=== PATIENT | male | born 1930 | race Caucasian/White ===

== ENCOUNTER 2016-07-14 08:14 | Inpatient (IN) | payer OTHER ==
[2016-07-14] VITALS (7 sets, daily range): BP systolic 94–112; BP diastolic 61–73; PULSE 71–83; TEMP 36.2–37; O2SAT 95–99; BMI 29.2
[~2016-07-14] VITALS: Ht 185.4 cm; Wt 102.7 kg
[~2016-07-14 08:14] MED LIST: ADVIN50/60 INH; ALBU1NEB10 INH; ALBUAER2 INH; ATOR-22 PO; ATV/1 PO; BISA10SU7 RE; CARB1SOL8 OTB; CLC100X PO; DUTA0.5C PO; FAMO20TA9 PO; FLR/1 PO; HOME1TAB PO; HYDR-5688 PO; INSDGI SC; INSU70IN2 SC; LIDO1OIN4 TOP; LORA-741 PO; LVQ750 PO; MAGN10TA PO; MAGNSUS5 PO; MCRK20 PO; METO10TA6 PO; MORP20SO SL; OMEP20CA9 PO; POLY1SOL6 OP; POLY335025 PO; SODIENE PR; SPRIN/30 INH; THROLOZ MT; TNR25 PO; VNTHFA/IN INH; WHITOIN2 TOP; [UNRECOGNIZED DRUG - CODE] TOP; [UNRECOGNIZED DRUG - OTHER] PO
[2016-07-14] MEDS ORDERED: ALBUT/IPRATROP 3MG/0.5MG NEB 3 ML VIAL INH STA (08:39)
[2016-07-14] MEDS ORDERED: SODIUM CHLORIDE 0.9% 1000ML 1,000 ML IV STA (08:39)
[2016-07-14 08:57] LABS: BASO % 0.2 %; BASO ABS # 0.01 K/uL (0-0.2); COMPLETE YES; EOS % 0.2 %; HEMATOCRIT 45.1 % (42-52); IG% 0.6 %; LYMPH % 8.9 %; LYMPH ABS # 0.56 K/uL (1.2-3.4); MEAN CELL VOLUME 94.7 fL (80-100); MEAN CORPUSCULAR HGB CONC 30.6 g/dl (32-36); MEAN PLATELET VOLUME 10.6 fL (7.4-10.4); MONO % 5.6 %; NEUT % 84.5 %; PLATELET COUNT 225 K/uL (130-400); RED BLOOD COUNT 4.76 M/uL (4.7-6.1); WHITE BLOOD COUNT 6.26 K/uL (4.8-10.8)
[2016-07-14 09:07] LABS: INR 1.1 (0.9-1.1); PARTIAL THROMBOPLASTIN RATIO 0.9
--- NOTE | 2016-07-14 09:07 | DIAGNOSTIC IMAGING REPORT ---
CHEST ONE VIEW PORTABLE CLINICAL HISTORY: Fever and sepsis COMPARISON STUDY: 09/16/2015 FINDINGS: The chest has an emphysematous configuration. The heart is normal in size. Since the prior study, the patient developed bilateral interstitial opacities. These could be inflammatory, or secondary to pulmonary vascular congestion. Clinical and radiographic follow-up is recommended.[No pleural effusions are visualized. IMPRESSION: 1. Interval development of bilateral interstitial opacities, inflammatory versus interstitial edema. Clinical and radiographic follow-up is recommended. Electronically signed by: Sridhar Chowdary M.D. 07/14/2016 9:05 AM
[2016-07-14 09:11] LABS: BUN/CREATININE RATIO 14.9 (10-20); CALCIUM 8.9 mg/dl (8.5-10.1); CREATININE 1.7 mg/dl (0.60-1.40); POTASSIUM 3.1 mmol/L (3.5-5.1)
[2016-07-14 09:17] LABS: CKMB/CK RATIO 0.8 (0-3.0)
[2016-07-14 09:23] LABS: URINE APPEARANCE CLEAR (CLEAR); URINE BILIRUBIN NEG (NEG); URINE COLOR YELLOW; URINE NITRITE NEG (NEG); URINE SPECIFIC GRAVITY 1.008 (1.000-1.030); UROBILINOGEN NEG (NEG); ZZURINE CULT IF INDIC CATH NO
[2016-07-14 09:27] LABS: MANUAL MICROSCOPIC REQUIRED? NO; REVIEW REQ? NO
--- NOTE | 2016-07-14 09:31 | DIAGNOSTIC IMAGING REPORT ---
CT SCAN OF THE ABDOMEN AND PELVIS WITHOUT CONTRAST CLINICAL HISTORY: Fever and sepsis. Possible intra-abdominal source. COMPARISON STUDY: 04/28/2014 TECHNIQUE: CT scan of the abdomen and pelvis was performed from the lung bases to the proximal femurs. Images are reviewed in the axial, sagittal, and coronal planes. IV contrast was not administered for this examination. CT DOSE: 983.99 mGy.cm FINDINGS: Lower chest: There is pulmonary emphysema. There is lower lobe bronchial wall thickening. There are right basilar airspace opacities, atelectatic versus inflammatory. Liver: The unenhanced liver is normal in size, contour, and attenuation. There is no intrahepatic biliary ductal dilatation. Gallbladder: Cholelithiasis Spleen: Normal in size and attenuation. Pancreas: Unremarkable. Adrenal glands: Unremarkable. Kidneys: There is no hydronephrosis. No calculi are visualized. There is an 11 mm left renal hypodensity likely representing a cyst. Bowel: There is gastric distention. The appendix appears normal. There is no evidence of acute diverticulitis. There is fecal retention. Peritoneum: No free air is visualized. There are bilateral fat-containing inguinal hernias. There is no ascites. Vasculature: The abdominal aorta is normal in course and caliber. Adenopathy: None. Pelvic viscera: There is indwelling Ball catheter. Skeletal structures: No destructive osseous lesions are seen. IMPRESSION: 1. Gastric distention 2. Cholelithiasis 3. Diverticulosis. No evidence of acute peridiverticular inflammatory change 4. Normal appendix 5. Fecal retention 6. Emphysema, lower lobe bronchial wall thickening, right basal airspace opacities, atelectatic versus inflammatory 7. Fat-containing inguinal hernias Electronically signed by: Sridhar Chowdary M.D. 07/14/2016 9:29 AM
[2016-07-14] MEDS ORDERED: OSELTAMIVIR PHOSPHATE 75 MG CAP PO ONE (09:45)
[2016-07-14] MEDS ORDERED: CEPH500C2 PO (09:50)
[2016-07-14] MEDS ORDERED: TYLOTC500 PO (09:50)
[2016-07-14] MEDS ORDERED: NRN600 PO (09:50)
[2016-07-14] MEDS ORDERED: TORS20TA2 PO (09:50)
[2016-07-14] MEDS ORDERED: TORS100T13 PO (09:50)
[2016-07-14] MEDS ORDERED: LEVO1TAB33 PO (09:50)
[2016-07-14] MEDS ORDERED: OXYC15TA89 PO (09:50)
[2016-07-14] MEDS ORDERED: CALC625T4 PO (09:54)
[2016-07-14] MEDS ORDERED: MULTTAB63 PO (09:54)
[2016-07-14] MEDS ORDERED: PRED20TA PO (09:56)
[2016-07-14 10:13] LABS: ARTERIAL BLD GAS O2 SATURATION 90.9 % (90-95); ARTERIAL BLOOD GAS BASE EXCESS 8.9 mEq/L (-9-1.8); ARTERIAL BLOOD GAS HCO3 31 mmol/L (19-24); ARTERIAL BLOOD GAS PO2 56 mm/Hg (80-95)
[2016-07-14 10:16] LABS: ALLEN TEST POS (POS); ARTERIAL BLOOD GAS pH 7.56 (7.35-7.45); O2 ADMINISTRATION room air
--- NOTE | 2016-07-14 10:48 | EMERGENCY ROOM VISIT NOTE ---
History Report prepared by Hood: Domingo Noel Under the Supervision of: Dr. Nasir Oneal D.O. First contact with patient: 08:20 Chief Complaint: SHORTNESS OF BREATH Stated Complaint: SOB History of Present Illness The patient is a 86 year old male who presents to the Emergency Room with complaints of worsening shortness of breath that started 2 days ago. Per the nursing staff, the patient is from the [facility]. Last week, the patient visited family in [place], and was admitted to the hospital there for a week for nausea and vomiting. Per the patient's , the patient seemed to improve at the hospital. It sounded like the patient had a UTI and he had a Ball Catheter put in. The patient was discharged yesterday and returned to the [facility]. In addition to the worsening shortness of breath, the patient has been recently complaining of a cough with yellow sputum, abdominal pain, and wheezing. The patient had a CT scan of his abdomen at the ER in [place], and it was found that he had urine retention. The patient was put on Levofloxacin, which he has been compliant with. Source of History: patient, spouse/significant other, nursing staff Onset: 2 days ago Position: other (global - shortness of breath) Timing: worsening Associated Symptoms: + abdominal pain, + cough (with yellow sputum), + nausea (was hospitalized for this last week), + urinary symptoms (urinary retention; was hospitalized for this last week), + vomiting (was hospitalized for this last week) Note: Associated symptoms: Wheezing. Review of Systems See HPI for pertinent positives & negatives. A total of 10 systems reviewed and were otherwise negative. Past Medical & Surgical Medical Problems: (1) Anemia (2) chronic kidney disease (3) COPD (chronic obstructive pulmonary disease) (4) Coronary artery disease (5) CVA (cerebrovascular accident) (6) Essential hypertension (7) HTN (hypertension) (8) Hypercholesterolemia (9) Hyperparathyroidism (10) Hypotension (11) CO (myocardial infarction) (12) Peripheral vascular disease (13) TIA (transient ischemic attack) Surgical Problems: (1) H/O heart artery stent Family History FH: heart disease Hypertension Social History Smoking Status: Unknown if Ever Smoked Alcohol Use: occasionally Drug Use: none Marital Status: Housing Status: lives with significant other Occupation Status: retired Current/Historical Medications Scheduled Aspirin (Aspirin Chewable), 81 MG PO DAILY Atenolol (Atenolol), 24 MG PO DAILY Atorvastatin (Lipitor), 20 MG PO HS Bisacodyl (Bisacodyl), 5 MG PO BID Bisacodyl (Bisac-Evac), 10 MG RE UNKNOWN Calcium Polycarbophil (Fiber Laxative), 1 TAB PO DAILY Cephalexin Monohydrate (Keflex), 500 MG PO QID Clopidogrel (Plavix), 75 MG PO DAILY Docusate Sodium (Colace), 100 MG PO BID Dutasteride (Avodart), 0.5 MG PO DAILY Famotidine (Pepcid), 20 MG PO HS Fludrocortisone Acetate (Florinef), 0.1 MG PO DAILY Gabapentin (Gabapentin), 600 MG PO BID Hydrocortisone (Cortef), 40 MG PO BID Insulin Glargine (Lantus), 40 UNITS SC QPM Insulin Human Isophan/Regular (Novolin 70/30), 10 UNITS SC BID Levofloxacin (Levaquin), 500 MG PO DAILY Magnesium Oxide (Mag-Ox), 400 MG PO BID Multiple Vitamins W/ Minerals (Therems M), 1 TAB PO DAILY Omeprazole (Prilosec), 20 MG PO DAILY Oxycodone Hcl (Oxycontin), 15 MG PO Q12 Polyethylene Glycol 3350 (Miralax), 17 GM PO BID Polyethylene Glycol-Propylene (Systane Ultra), 1 DROPS OPB BID Potassium Chloride (Klor-Con M20), 2 TAB PO BID Prednisone (Prednisone), 20 MG PO UD Tiotropium [place] (Spiriva Handihaler), 1 CAP INH DAILY Torsemide (Demadex), 100 MG PO DAILY Torsemide (Demadex), 50 MG PO 3XWK [Magic Movement], 1 DOSE PO BID Scheduled PRN Acetaminophen (Tylenol), 1,000 MG PO AMPM PRN for PA Albuterol (Ventolin), 2 PUFF INH Q2H PRN for SOB/Wheezing Albuterol Hfa (Ventolin Hfa), 2 PUFF INH Q4 PRN for Wheezing Lorazepam (Ativan), 1 MG PO DAILY PRN for Anxiety Magnesium Hydroxide (Milk Of Magnesia), 30 ML PO UD PRN for Constipation Morphine Sulfate Oral (Roxanol Oral), 10 MG SL Q2H PRN for PAIN/SOB Sodium Phosphate/Biphosphate (Fleet Enema), 1 EA OH UD PRN for NO BM X 4 DAYS Throat Lozenges (Menthol Cough Drops), 1 MINH MT for MD ORDER Allergies Coded Allergies: No Known Allergies (Unverified , 11/08/14) Physical Exam Vital Signs Date Time Temp Pulse Resp B/P Pulse Ox O2 Delivery O2 Flow Rate FiO2 07/14/16 10:13 88 24 98/65 91 Room Air 07/14/16 09:35 85 07/14/16 09:24 92 20 102/71 100 07/14/16 08:29 37.7 87 22 123/90 93 Room Air 07/14/16 08:29 93 Room Air Physical Exam CONSTITUTIONAL/VITAL SIGNS: Reviewed / noted above. GENERAL: Non-toxic in appearance. INTEGUMENTARY: Warm, dry, and [place]. HEAD: Normocephalic. EYES: without scleral icterus or trauma. ENT/OROPHARYNX: clear and moist. LYMPHADENOPATHY/NECK: Is supple without lymphadenopathy or meningismus. RESPIRATORY: Decreased breath sounds bilaterally with scattered wheezing primarily on left on expiration. Pursed lip breathing, mild increased work of breathing. CARDIOVASCULAR: Regular rate and rhythm. GI/ABDOMEN: Distension and tenseness. No organomegaly or pulsatile mass. No rebound or guarding. Normal bowel sounds. EXTREMITIES: Warm and well perfused. BACK: No CVA tenderness. NEUROLOGICAL: Intact without focal deficits. PSYCHIATRIC: normal affect. MUSCULOSKELETAL: Normally developed with good muscle tone. Medical Decision & Procedures ER Provider Diagnostic Interpretation: X ray results and stated below per my interpretation and radiologist interpretation. Other radiology results and stated below per my review and radiologist interpretation: CHEST ONE VIEW PORTABLE CLINICAL HISTORY: Fever and sepsis COMPARISON STUDY: 09/16/2015 FINDINGS: The chest has an emphysematous configuration. The heart is normal in size. Since the prior study, the patient developed bilateral interstitial opacities. These could be inflammatory, or secondary to pulmonary vascular congestion. Clinical and radiographic follow-up is recommended.[No pleural effusions are visualized. IMPRESSION: 1. Interval development of bilateral interstitial opacities, inflammatory versus interstitial edema. Clinical and radiographic follow-up is recommended. Electronically signed by: Sridhar Chowdary M.D. 07/14/2016 9:[address] SCAN OF THE ABDOMEN AND PELVIS WITHOUT CONTRAST CLINICAL HISTORY: Fever and sepsis. Possible intra-abdominal source. COMPARISON STUDY: 04/28/2014 TECHNIQUE: CT scan of the abdomen and pelvis was performed from the lung bases to the proximal femurs. Images are reviewed in the axial, sagittal, and coronal planes. IV contrast was not administered for this examination. CT DOSE: 983.99 mGy.cm FINDINGS: Lower chest: There is pulmonary emphysema. There is lower lobe bronchial wall thickening. There are right basilar airspace opacities, atelectatic versus inflammatory. Liver: The unenhanced liver is normal in size, contour, and attenuation. There is no intrahepatic biliary ductal dilatation. Gallbladder: Cholelithiasis Spleen: Normal in size and attenuation. Pancreas: Unremarkable. Adrenal glands: Unremarkable. Kidneys: There is no hydronephrosis. No calculi are visualized. There is an 11 mm left renal hypodensity likely representing a cyst. Bowel: There is gastric distention. The appendix appears normal. There is no evidence of acute diverticulitis. There is fecal retention. Peritoneum: No free air is visualized. There are bilateral fat-containing inguinal hernias. There is no ascites. Vasculature: The abdominal aorta is normal in course and caliber. Adenopathy: None. Pelvic viscera: There is indwelling Ball catheter. Skeletal structures: No destructive osseous lesions are seen. IMPRESSION: 1. Gastric distention 2. Cholelithiasis 3. Diverticulosis. No evidence of acute peridiverticular inflammatory change 4. Normal appendix 5. Fecal retention 6. Emphysema, lower lobe bronchial wall thickening, right basal airspace opacities, atelectatic versus inflammatory 7. Fat-containing inguinal hernias Electronically signed by: Sridhar Chodwary M.D. 07/14/2016 9:29 AM Laboratory Results 07/14/16 08:40 Red Blood Count 4.76, Mean Corpuscular Volume 94.7, Mean Corpuscular Hemoglobin 29.0, Mean Corpuscular Hemoglobin Concent 30.6, Mean Platelet Volume 10.6, Neutrophils (%) (Auto) 84.5, Lymphocytes (%) (Auto) 8.9, Monocytes (%) (Auto) 5.6, Eosinophils (%) (Auto) 0.2, Basophils (%) (Auto) 0.2, Neutrophils # (Auto) 5.29, Lymphocytes # (Auto) 0.56, Monocytes # (Auto) 0.35, Eosinophils # (Auto) 0.01, Basophils # (Auto) 0.01 07/14/16 08:40 Test 07/14/16 08:40 07/14/16 08:50 07/14/16 08:53 07/14/16 09:36 White Blood Count 6.26 K/uL (4.8-10.8) Red Blood Count 4.76 M/uL (4.7-6.1) Hemoglobin 13.8 g/dL (14.0-18.0) Hematocrit 45.1 % (42-52) Mean Corpuscular Volume 94.7 fL (80-100) Mean Corpuscular Hemoglobin 29.0 pg (25-34) Mean Corpuscular Hemoglobin Concent 30.6 g/dl (32-36) Platelet Count 225 K/uL (130-400) Mean Platelet Volume 10.6 fL (7.4-10.4) Neutrophils (%) (Auto) 84.5 % Lymphocytes (%) (Auto) 8.9 % Monocytes (%) (Auto) 5.6 % Eosinophils (%) (Auto) 0.2 % Basophils (%) (Auto) 0.2 % Neutrophils # (Auto) 5.29 K/uL (1.4-6.5) Lymphocytes # (Auto) 0.56 K/uL (1.2-3.4) Monocytes # (Auto) 0.35 K/uL (0.11-0.59) Eosinophils # (Auto) 0.01 K/uL (0-0.5) Basophils # (Auto) 0.01 K/uL (0-0.2) RDW Standard Deviation 58.8 fL (36.4-46.3) RDW Coefficient of Variation 17.1 % (11.5-14.5) Immature Granulocyte % (Auto) 0.6 % Immature Granulocyte # (Auto) 0.04 K/uL (0.00-0.02) Prothrombin Time 12.0 SECONDS (9.0-12.0) Prothromb Time International Ratio 1.1 (0.9-1.1) Activated Partial Thromboplast Time 23.9 SECONDS (21.0-31.0) Partial Thromboplastin Ratio 0.9 Anion Gap 10.0 mmol/L (3-11) Est Creatinine Clear Calc Drug Dose 38.9 ml/min Estimated GFR () 41.4 Estimated GFR (Non- 35.7 BUN/Creatinine Ratio 14.9 (10-20) Calcium Level 8.9 mg/dl (8.5-10.1) Total Bilirubin 0.4 mg/dl (0.2-1) Direct Bilirubin 0.1 mg/dl (0-0.2) Aspartate Amino Transf (AST/SGOT) 36 U/L (15-37) Alanine Aminotransferase (ALT/SGPT) 21 U/L (12-78) Alkaline Phosphatase 89 U/L (45-117) Total Creatine Kinase 235 U/L (39-308) Creatine Kinase MB 1.8 ng/ml (0.5-3.6) Creatine Kinase MB Ratio 0.8 (0-3.0) Troponin I 0.032 ng/ml (0-0.045) Total Protein 7.8 gm/dl (6.4-8.2) Albumin 3.3 gm/dl (3.4-5.0) Lipase 138 U/L (73-393) Influenza Type A Antigen POS for Influ A (NEG) Influenza Type B Antigen Neg for Influ B (NEG) Urine Color YELLOW Urine Appearance CLEAR (CLEAR) Urine pH 6.0 (4.5-7.5) Urine Specific [place] 1.008 (1.000-1.030) Urine Protein TRACE (NEG) Urine Glucose (UA) NEG (NEG) Urine Ketones NEG (NEG) Urine Occult Blood 2+ (NEG) Urine Nitrite NEG (NEG) Urine Bilirubin NEG (NEG) Urine Urobilinogen NEG (NEG) Urine Leukocyte Esterase TRACE (NEG) Urine WBC (Auto) 1-5 /hpf (0-5) Urine RBC (Auto) 5-10 /hpf (0-4) Urine Hyaline Casts (Auto) 1-5 /lpf (0-5) Urine Epithelial Cells (Auto) 10-20 /lpf (0-5) Urine Bacteria (Auto) NEG (NEG) Arterial Blood pH 7.56 (7.35-7.45) Arterial Blood Partial Pressure CO2 36 mmHg (35-46) Arterial Blood Partial Pressure O2 56 mm/Hg (80-95) Arterial Blood HCO3 31 mmol/L (19-24) Arterial Blood Oxygen Saturation 90.9 % (90-95) Arterial Blood Base Excess 8.9 mEq/L (-9-1.8) Arterial Blood Gas Delivery room air Ramos Test POS (POS) Laboratory results as stated above per my review. Medications Administered Medications (Trade) Dose Ordered Sig/Cole Route Start Time Stop Time Status Last Admin Dose Admin Sodium Chloride (Nss 1000ml) 1,000 ml @ 200 mls/hr Q5H STAT IV 07/14/16 08:39 07/14/16 13:38 07/14/16 09:19 200 MLS/HR Albuterol/ Ipratropium (Duoneb) 3 ml NOW STAT INH 07/14/16 08:39 07/14/16 08:43 DC 07/14/16 09:19 3 ML Oseltamivir Phosphate (Tamiflu Cap) 75 mg ONE ONCE PO 07/14/16 09:45 07/14/16 09:46 DC 07/14/16 09:41 75 MG ECG Indication: SOB/dyspnea Rate (beats per minute): 94 Rhythm: normal sinus Findings: PAC, other (no acute injury, RBBB) Change: no significant change (from February 23 2015) ED Course 0832: Previous medical records were reviewed. The patient was evaluated in room B7. A complete history and physical examination was performed. 0839: Ordered Duoneb 3 ml INH, NSS 1000 ml @ 200 mls/hr IV. 0945: Ordered Tamiflu Cap 75 mg PO. 0955: I reevaluated the patient and he is resting comfortably. The patient verbally expressed agreement and understanding of the treatment plan. The patient will be evaluated for further treatment. 1014: I discussed the patient with Dr. Wade - [facility] hospitalist - he will evaluate the patient for further treatment. Medical Decision the differential was considered includes acute myocardial infarction, acute coronary syndrome, myocarditis, pericarditis, pericardial effusions /tamponad, esophageal perforation, pulmonary embolism, pneumonia, pneumothorax, cardiomyopathy, congestive heart, anemia , COPD/asthma exacerbation. This is a 86-year-old male who presents to the ED with a chief complaint of increasing shortness of breath and cough productive of a yellow sputum. The patient states that his symptoms started 2 days ago. He was discharged from an outside hospital yesterday after having a Ball catheter placed and being placed on Levaquin for UTI. The patient's exam reveals increased respiratory rate as well as some increased work of breathing with pursed lip breathing. The patient has expiratory wheezing primarily on the left on exam. He was given a DuoNeb treatment for this. The patient's CBC was normal. Complete metabolic panel revealed a BUN of 25 and a creatinine of 1.7. Was otherwise unremarkable. Positive influenza test. Chest x-ray reveals bilateral interstitial opacities. This could be suggestive of a viral pneumonia. The patient has been on Levaquin. The patient had gastric distention and a CT scan of the abdomen revealed gastric distention and fecal retention. Upon reassessment, the patient continues having dyspnea and increased work of breathing. He continues to have wheezing on exam and diminished breath sounds. Because of his poor clinical status and lack of improvement of her ED stay, he will be seen for observation by the hospitalist. Consults Time Called: 101 Consulting Physician: Dr. Shrei CHAHAL hospitalist Returned Call: [phone] I discussed the patient with Dr. Sheri CHAHAL hospitalist - he will evaluate the patient for further treatment. Impression Primary Impression: Influenza A Additional Impression: Reactive airway disease Scribe Attestation The scribe's documentation has been prepared under my direction and personally reviewed by me in its entirety. I confirm that the note above accurately reflects all work, treatment, procedures, and medical decision making performed by me. Departure Information Dispostion Being Evaluated By Hospitalist [facility] (PCP) Patient Instructions A Signature Page, My [facility]
[2016-07-14] MEDS ORDERED: VANCOMYCIN INJ 1,000 MG in SODIUM CHLORIDE 0.9% 250ML 250 ML IV STA (11:17)
[2016-07-14] MEDS ORDERED: GLUCOSE 40% GEL 15 GM TUBE PO PRN (11:30)
[2016-07-14] MEDS ORDERED: NITROGLYCERIN 0.4 MG SL PER TAB CHARGE SL PRN (11:30)
[2016-07-14] MEDS ORDERED: LORAZEPAM 1 MG TAB PO PRN (11:30)
[2016-07-14] MEDS ORDERED: DEXTROSE 50% 50 ML SYR IV PRN (11:30)
[2016-07-14] MEDS ORDERED: GLUCOSE 10 TABS/TUBE PO PRN (11:30)
[2016-07-14] MEDS ORDERED: GLUCAGON FOR INJ 1 MG VIAL SQ PRN (11:30)
[2016-07-14] MEDS ORDERED: MAGNESIUM HYDROXIDE SUSP 30 ML UDC PO PRN (11:30)
--- NOTE | 2016-07-14 11:57 | HISTORY & PHYSICAL EXAMINATION ---
DATE OF ADMISSION: 07/14/2016 Regarding his insulin, in discussion with his , he get 40 mg Lantus at bedtime but uses 70/30 twice a day which should not be on both of. He wasn't sure, instead he will get something else. Will start the Lantus, put him on coverage and if sugar still high may put him on insulin with meals accordingly. All this was discussed with the patient again. COREY
[2016-07-14] MEDS: GUAIFENESIN 600 MG TABCR PO SCH ×2 (12:00→22:04)
[2016-07-14] MEDS ORDERED: VANCOMYCIN 1GM/270ML NSS IV ONE (12:12)
[2016-07-14] MEDS: ACETAMINOPHEN 325 MG TAB PO PRN (12:21)
--- NOTE | 2016-07-14 13:04 | HISTORY & PHYSICAL EXAMINATION ---
DATE OF ADMISSION: 07/14/2016 ADMISSION LEVEL 3. CHIEF COMPLAINT: Cough, shortness of breath, weakness, fever, chills. HISTORY OF PRESENT ILLNESS: This is an 86-year-old male recently discharged from [facility]. Basically he is resident of [facility] is what they call it. Basically accompanied by the . Over the last few days since he has been discharged he has kind of been coughing, congested, short of breath and having some weakness, decreased oral intake, having some sick contact around him in the home as well too. Having fever and chills. Having some lower abdominal reproducible pain with coughing and taking in deep breath. He feels bloated, having chronic constipation and according to the he has already been dealing with gas. No extremity weaknesses. No headache. No blurry vision. No syncope. Workup in the Emergency Room showed febrile, having some positives for the flu, influenza A, also chest x-ray showed some change, likely pneumonia. PAST MEDICAL HISTORY: 1. Positive for diabetes. 2. Recent admission to the hospital for abdominal pain. 3. History of urinary tract infection and urinary retention, likely secondary to the prostate. 4. 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 5. Adrenal insufficiency. 6. Labeled as chronic systolic congestive heart failure although EF last echo is normal. 7. History of atrial fibrillation. 8. Chronic obstructive pulmonary disease, emphysema. 9. History of diverticulosis. 10. Benign prostatic hypertrophy. 11. Chronic constipation. 12. Chronic anemia. 13. History of transient ischemic attack and stroke. PAST SURGICAL HISTORY: Positive for cardiac catheterization. SOCIAL HISTORY: Lives at [facility]. No smoking, no drug, no alcohol. Ambulates with some assistance. FAMILY HISTORY: Positive for the hypertension, diabetes, coronary artery disease. MEDICATIONS ON ADMISSION: He is on Tylenol 1000 mg as needed twice a day, Ventolin HFA 2 puffs inhaled q. 2 hours, albuterol, aspirin 81 mg daily, atenolol 25 mg daily, Lipitor 20 mg at bedtime, bisacodyl 5 mg twice a day and 10 mg rectally as needed, calcium polycarbophil, fiber laxative 1 tablet daily, Keflex 500 p.o. q.i.d., Plavix 75 daily, Colace 100 mg b.i.d., avodart 0.5 daily, famotidine 20 mg at bedtime, Florinef 0.1 mg daily, gabapentin 600 mg b.i.d., hydrocortisone 40 mg p.o. b.i.d., Lantus 40 units subQ bedtime, Novolin 70/30 10 units subcutaneously b.i.d., Levaquin 500 p.o. daily, lorazepam 1 mg p.o. daily as needed, milk of magnesia as needed, magnesium oxide 400 mg b.i.d., morphine sulfate orally 10 mg sublingually every 2 hours, multivitamin as needed, omeprazole 200 mg daily, OxyContin 15 mg q. 12 hours, polyethylene glycol MiraLax 17 grams b.i.d., Systane eyedrop 1 drop both eyes b.i.d., potassium chloride 20 mg take 2 tablets b.i.d., prednisone taper doses, sodium pyrophosphate bisphosphonate Fleet enema as needed, throat lozenge as needed,, Demadex 100 mg daily and 50 mg added to Saturday and Saturday and Mondays, magic movement b.i.d. ALLERGIES: No known drug allergies. PHYSICAL EXAMINATION: GENERAL: Awake, alert, oriented, lying in bed,. HEAD, EYES, EARS, NOSE, AND THROAT: Very dry lips and tongue. Normocephalic. No nasal discharge. SKIN: Mucous membranes warm, dry. Kervin dry mucous membranes. NECK: Supple. No JVD. No bruits. No goiter. CHEST: Symmetrical expansion, no tenderness. Tender in the lower rib cage area with no skin abnormality. LUNGS: decreased air entry bilaterally. Fine wheezes. No rales or rhonchi. No crackles. HEART: S1, S2. Regular. No added sound appreciated. ABDOMEN: Globular, soft, mild generalized tenderness when just superficially touched. No skin lesion abnormality. EXTREMITIES: Mild pitting edema, good peripheral pulses, good range of motion.. Good range of motion of the joint. No erythema, swelling or tenderness of any joint or muscle. BACK: No costovertebral angle tenderness. No lower back erythema or ulceration. PELVIC: Deferred. RECTAL: Deferred. NEUROLOGICALLY: Awake, alert, oriented. DIAGNOSTIC WORKUP: White cell count 6.26, hemoglobin 13.8, hematocrit platelet count 225, sodium 147, potassium 3.9, chloride 37, BUN 25, creatinine 1.70, last time 06/25/2016 creatinine was 1.80. Liver enzymes normal. Albumin 3.3. PT 12.0, INR normal, PTT 23.9. ABG showed pH 7.56, pCO2 36, pO2 96, saturation ia more than 95. Chest x-ray showed interval development of bilateral interstitial opacities, inflammatory versus edema and likely edema because of the fever and respiratory symptoms, CT abdomen and pelvis showed gaseous distention, cholelithiasis, diverticulosis, and no evidence of peridiverticular inflammatory change. Normal appendix. lower bronchial wall thickening and right basilar airspace opacity, atelectasis versus inflammatory. EKG done and reviewed showed normal sinus rhythm with PACs, right around 94, QRS 118, QTC 500, left axis deviation, right bundle branch block, left anterior fascicular block. When compared to our EKG no new change appreciated except the heart rate increased by 19 beats. IMPRESSION: This is a 86-year-old male presents with weakness, likely combination of acute influenza type A and pneumonia was recently from the hospital. Most probably hospital acquired pneumonia. Generalized weakness, malaise, coughing due to influenza and pneumonia. 1. Influenza A. 2. Pneumonia likely hospital acquired. 3. Dehydration. 4. Respiratory alkalosis secondary to tachypnea. 5. Doubted congestive heart failure. 6. Diabetes. 7. Chronic kidney disease. 8. History of renal insufficiency. 9. Obesity. 10. Chronic abdominal pain and likely gaseous distention. 11. Chest pain upper abdominal from the cough and musculoskeletal. 12. Chronic kidney disease stage III. PLAN: The patient is going to be admitted as inpatient because of the multiple complexity of the complaints and symptoms. Although at risks for progression to sepsis or multiorgan failure and high morbidity and mortality the patient is going to be given IV vancomycin and Zosyn for now just to cover hospital acquired pneumonia for now. Blood culture already ordered, get sputum culture as well. Will start him on Tamiflu and orders IV fluid cautiously monitored, breathing treatment, , hydrocortisone to IV because of the stress doses. Regarding chronic kidney disease check renal function, electrolyte again. Regarding low blood pressure we are going to hold his blood pressure medication and increase atenolol to 12, it is 10 mg now, to prevent rebound tachycardia. We are going to monitor closely, Lantus and sliding scale. Regarding diabetes continue the insulin and put him on glucose count. Further workup pending the progression and findings during hospitalization. CODE STATUS IS GOING TO BE DNR/DNI. Estimated duration of hospitalization around 4-5 days. Prognosis is poor. Time spent is 45 minutes. All discussed with the patient and in detail. COREY
[2016-07-14] MEDS ORDERED: PIPERACILL/TAZOBAC IV 3.375 GM in DEXTROSE 5% 100ML 100 ML IV SCH (14:00)
[2016-07-14] MEDS ORDERED: PIPERACILL/TAZOBAC IV 3.375 GM in DEXTROSE 5% 100ML 100 ML IV ONE (14:15)
[2016-07-14] MEDS ORDERED: VANCOMYCIN INJ 1,500 MG in SODIUM CHLORIDE 0.9% 500ML 500 ML IV ONE (14:30)
--- NOTE | 2016-07-14 14:36 | Pharmacy Progress Note ---
Pharmacy Antibiotic Consult Date of Service: Jul 14, 2016. Pharmacy Dosing Scope Pharmacy is consulted to initiate Vancomycin IV dosing therapy, order appropriate labs and adjust drug dose/frequency. Subjective The patient is a 86 year old male admitted on Jul 14, 2016 at 11:37. Objective Height (Feet): 6 Height (Inches): 1.00 Weight (Kilograms): 100.400 Lab Results (24hrs): Laboratory Tests Test 07/14/16 08:40 BUN/Creatinine Ratio 14.9 Blood Urea Nitrogen 25 mg/dl Creatinine 1.70 mg/dl White Blood Count 6.26 K/uL Red Blood Count 4.76 M/uL Hemoglobin 13.8 g/dL Hematocrit 45.1 % Mean Corpuscular Volume 94.7 fL Mean Corpuscular Hemoglobin 29.0 pg Mean Corpuscular Hemoglobin Concent 30.6 g/dl Platelet Count 225 K/uL Mean Platelet Volume 10.6 fL Neutrophils (%) (Auto) 84.5 % Lymphocytes (%) (Auto) 8.9 % Monocytes (%) (Auto) 5.6 % Eosinophils (%) (Auto) 0.2 % Basophils (%) (Auto) 0.2 % Neutrophils # (Auto) 5.29 K/uL Lymphocytes # (Auto) 0.56 K/uL Monocytes # (Auto) 0.35 K/uL Eosinophils # (Auto) 0.01 K/uL Basophils # (Auto) 0.01 K/uL Micro Results: Item Value Date Time Blood Culture Received 07/14/16 0900 Blood Pending Blood Culture Received 07/14/16 0840 Blood Pending Recent Pertinent Medications Item Value Date Time Piperacillin Sod/ 115 ml @ 230 mls/hr 07/14/16 1415 Tazobactam Sod NOW ONCE/IV 3.375 gm/Dextrose Piperacillin Sod/ 115 ml @ 28.75 mls/hr 07/14/16 2000 Tazobactam Sod Q8H/IV 3.375 gm/Dextrose Assessment & Plan ASSESSMENT: * 86 yo M admitted with flu + pneumonia (thought to be healthcare associated) initiated on Vancomycin and Zosyn IV. Blood cultures obtained and pending. MRSA nasal swab added to aid in deescalation for lung source. PLAN: * Patient received one dose of Vancomycin 1000 mg IV in the ED (10 mg/kg) * To finish loading patient (25 mg/kg), I added 1500 mg IV to start infusing after 1000 mg bag is finished * Continue 1500 mg IV every 24 hours based on baseline/current renal function * Assess trough level earlier than usual, prior to the 3rd overall dose * If trough level between 10-15 mcg/mL and renal function stays the same- this dose will likely be within goal range of lung source (15-20 mcg/mL) after reaching steady state * It is important to check early level to ensure that we are on the right track Pharmacy will continue to follow and will adjust dose/frequency as necessary. Thank you
[2016-07-14] MEDS ORDERED: VANCOMYCIN CONSULT ACTIVE PRN (15:15)
[2016-07-14] MEDS ORDERED: PIPERACILL/TAZOBAC CONSULT ACTIVE PRN (15:15)
[2016-07-14] MEDS: AVODART: ORDER AWAITING ACTION SCH (16:00)
[2016-07-14] MEDS: ALBUT/IPRATROP 3MG/0.5MG NEB 3 ML VIAL INH SCH ×2 (16:02→19:16)
[2016-07-14] MEDS: INSULIN ASPART 100 UNITS/ML 3 ML PEN SC SCH ×2 (16:15→21:00)
[2016-07-14] MEDS: SODIUM CHLORIDE 0.45% 1000ML 1,000 ML IV SCH (16:16)
[2016-07-14] MEDS: HYDROCORTISONE IV 50 MG in SYRINGE 0 ML IV SCH (18:00)
[2016-07-14] MEDS ORDERED: NURSING VERBAL MED ORDER ONE (19:15)
[2016-07-14] MEDS ORDERED: POTASSIUM CHLORIDE 20 MEQ TABCR PO STA (19:22)
[2016-07-14 19:45] LABS: MAGNESIUM 3.1 mg/dl (1.8-2.4)
[2016-07-14] MEDS ORDERED: LIDODERM (LIDOCAINE) PATCH 5% TD ONE (20:15)
[2016-07-14] MEDS ORDERED: VANCOMYCIN INJ 1,000 MG in SODIUM CHLORIDE 0.9% 250ML 250 ML IV SCH (21:00)
[2016-07-14] MEDS: OXYCODONE HCL 15 MG TABCR (OXYCONTIN) PO SCH (22:00)
[2016-07-14] MEDS: BISACODYL 5 MG TABEC PO SCH (22:00)
[2016-07-14] MEDS: PIPERACILL/TAZOBAC IV 3.375 GM in DEXTROSE 5% 100ML 100 ML IV SCH (22:00)
[2016-07-14] MEDS: GABAPENTIN 600 MG TAB PO SCH (22:01)
[2016-07-14] MEDS: POTASSIUM CHLORIDE 20 MEQ TABCR PO SCH (22:01)
[2016-07-14] MEDS: MAGNESIUM OXIDE 400 MG TAB PO SCH (22:02)
[2016-07-14] MEDS: DOCUSATE SODIUM 100 MG CAP PO SCH (22:02)
[2016-07-14] MEDS: POLYETHYLENE (MIRALAX) 17 GM PACK PO SCH (22:03)
[2016-07-14] MEDS: ATORVASTATIN 20 MG TAB PO SCH (22:04)
[2016-07-14] MEDS: ARTIFICIAL TEARS OP SOLN OPB SCH ×2 (22:04)
[2016-07-14] MEDS: FAMOTIDINE 20 MG TAB PO SCH (22:05)
[2016-07-14] MEDS: OSELTAMIVIR PHOSPHATE SUSP 30 MG/5 ML UDP PO SCH (22:17)
[2016-07-14] MEDS: INSULIN GLARGINE SOLOSTAR 100 UNITS/ML 3 ML PEN SC SCH (22:19)
[2016-07-14] MEDS: HEPARIN SOD 5000 UNIT/0.5 ML CARP SQ SCH (22:20)
[2016-07-15] VITALS (10 sets, daily range): BP systolic 93–124; BP diastolic 59–75; PULSE 59–83; TEMP 36.3–36.6; O2SAT 92–97
[2016-07-15] MEDS: HYDROCORTISONE IV 50 MG in SYRINGE 0 ML IV SCH ×4 (00:06→16:29)
[2016-07-15] MEDS: SODIUM CHLORIDE 0.45% 1000ML 1,000 ML IV SCH (04:32)
[2016-07-15] MEDS: PIPERACILL/TAZOBAC IV 3.375 GM in DEXTROSE 5% 100ML 100 ML IV SCH ×3 (04:32→20:25)
[2016-07-15] MEDS: HEPARIN SOD 5000 UNIT/0.5 ML CARP SQ SCH ×3 (05:47→22:00)
[2016-07-15] MEDS: INSULIN ASPART 100 UNITS/ML 3 ML PEN SC SCH ×4 (07:00→20:35)
[2016-07-15 07:12] LABS: BASO % 0.7 %; BASO ABS # 0.02 K/uL (0-0.2); COMPLETE YES; HEMATOCRIT 37.3 % (42-52); IG% 0.7 %; LYMPH % 15.5 %; LYMPH ABS # 0.47 K/uL (1.2-3.4); MEAN CELL VOLUME 93.5 fL (80-100); MEAN CORPUSCULAR HEMOGLOBIN 28.1 pg (25-34); MEAN PLATELET VOLUME 10.7 fL (7.4-10.4); MONO % 7.3 %; NEUT % 75.8 %; PLATELET COUNT 187 K/uL (130-400); RED BLOOD COUNT 3.99 M/uL (4.7-6.1); WHITE BLOOD COUNT 3.03 K/uL (4.8-10.8)
[2016-07-15] MEDS: ALBUT/IPRATROP 3MG/0.5MG NEB 3 ML VIAL INH SCH ×4 (07:17→19:51)
[2016-07-15 07:43] LABS: BUN/CREATININE RATIO 15.9 (10-20); CALCIUM 8.3 mg/dl (8.5-10.1); CREATININE 1.6 mg/dl (0.60-1.40); POTASSIUM 3.9 mmol/L (3.5-5.1)
[2016-07-15] MEDS: AVODART: ORDER AWAITING ACTION SCH ×3 (08:00→16:00)
[2016-07-15] MEDS: LIDODERM (LIDOCAINE) PATCH 5% TD SCH (08:39)
[2016-07-15] MEDS: GABAPENTIN 600 MG TAB PO SCH ×2 (08:40→20:41)
[2016-07-15] MEDS: DOCUSATE SODIUM 100 MG CAP PO SCH ×2 (08:40→20:41)
[2016-07-15] MEDS: CEROVITE ADV FORMULA TAB PO SCH (08:40)
[2016-07-15] MEDS: POLYETHYLENE (MIRALAX) 17 GM PACK PO SCH ×2 (08:41→20:41)
[2016-07-15] MEDS: FLUDROCORTISONE ACETATE 0.1 MG TAB PO SCH (08:41)
[2016-07-15] MEDS: PANTOprazole SOD 40 MG TAB PO SCH (08:41)
[2016-07-15] MEDS: GUAIFENESIN 600 MG TABCR PO SCH ×2 (08:43→20:41)
[2016-07-15] MEDS: MAGNESIUM OXIDE 400 MG TAB PO SCH ×2 (08:43→20:41)
[2016-07-15] MEDS: POTASSIUM CHLORIDE 20 MEQ TABCR PO SCH ×2 (08:44→20:41)
[2016-07-15] MEDS: CLOPIDOGREL BISULFATE 75 MG TAB PO SCH (08:44)
[2016-07-15] MEDS: ASPIRIN 81 MG ECTAB PO SCH (08:44)
[2016-07-15] MEDS: CALCIUM POLYCARBOPHIL 1 TAB PO SCH (08:45)
[2016-07-15] MEDS: OXYCODONE HCL 15 MG TABCR (OXYCONTIN) PO SCH ×2 (08:57→20:41)
[2016-07-15] MEDS: BISACODYL 5 MG TABEC PO SCH ×2 (08:57→20:41)
[2016-07-15] MEDS ORDERED: ASPIRIN 81 MG CHEW PO SCH (09:00)
[2016-07-15] MEDS: ARTIFICIAL TEARS OP SOLN OPB SCH ×4 (09:59→20:40)
[2016-07-15] MEDS: OSELTAMIVIR PHOSPHATE SUSP 30 MG/5 ML UDP PO SCH ×2 (10:00→20:42)
[2016-07-15] MEDS ORDERED: VANCOMYCIN INJ 1,500 MG in SODIUM CHLORIDE 0.9% 500ML 500 ML IV SCH (14:00)
[2016-07-15] MEDS: ATORVASTATIN 20 MG TAB PO SCH (20:41)
[2016-07-15] MEDS: FAMOTIDINE 20 MG TAB PO SCH (20:41)
[2016-07-15] MEDS: INSULIN GLARGINE SOLOSTAR 100 UNITS/ML 3 ML PEN SC SCH (21:00)
--- NOTE | 2016-07-15 21:39 | Hospitalist Progress Note ---
Hospitalist Progress Note Date of Service Jul 15, 2016. Subjective Pt evaluation today including: conversation w/ patient, physical exam, chart review, lab review, review of studies, review of inpatient medication list Voiding: gomez catheter in place Pt feeling better than upon admission. Breathing much better. He was bringing up some sputum but now not. Jorge po, moving his bowels, no diarrhea. Afebrile since admission Constitutional: No fever Respiratory: + cough, + shortness of breath, + wheezing Cardiovascular: No chest pain Abdomen: No constipation, No pain All Other Systems: Reviewed and Negative Objective Vital Signs Date Time Temp Pulse Resp B/P Pulse Ox O2 Delivery O2 Flow Rate FiO2 07/15/16 19:55 83 16 94 Nasal Cannula 2.0 07/15/16 19:49 36.3 63 18 109/66 92 Nasal Cannula 2.0 07/15/16 16:00 Nasal Cannula 2.0 07/15/16 15:52 36.3 60 21 107/66 95 Nasal Cannula 2.0 07/15/16 15:41 69 18 96 Nasal Cannula 2.0 07/15/16 12:00 Nasal Cannula 2.0 07/15/16 11:49 64 18 96 Nasal Cannula 2.0 07/15/16 11:43 36.3 65 20 124/70 94 07/15/16 08:00 Nasal Cannula 2.0 07/15/16 07:45 36.6 80 20 120/75 96 Nasal Cannula 2.0 07/15/16 07:19 61 18 94 Nasal Cannula 2.0 07/15/16 04:05 36.3 59 18 93/59 97 Nasal Cannula 07/15/16 04:00 95 Nasal Cannula 2.0 07/14/16 23:59 95 Nasal Cannula 2.0 07/14/16 23:26 36.2 78 18 112/73 95 Nasal Cannula Physical Exam General Appearance: WD/WN, no apparent distress, + obese Eyes: normal inspection, sclerae normal ENT: hearing grossly normal, pharynx normal Neck: trachea midline Respiratory/Chest: no respiratory distress, no accessory muscle use, + wheezing (diffuse wheezing and not moving air well throughout) Cardiovascular: regular rate, rhythm, no edema, no gallop, no murmur Abdomen: normal bowel sounds, non tender, soft (and obese) Extremities: non-tender, normal inspection, no pedal edema, no calf tenderness 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: alert, normal mood/affect, oriented x 3 Skin: normal color, warm/dry, no rash Laboratory Results Last 24 Hours Test 07/15/16 06:25 07/15/16 06:56 07/15/16 11:47 07/15/16 15:58 White Blood Count 3.03 K/uL Red Blood Count 3.99 M/uL Hemoglobin 11.2 g/dL Hematocrit 37.3 % Mean Corpuscular Volume 93.5 fL Mean Corpuscular Hemoglobin 28.1 pg Mean Corpuscular Hemoglobin Concent 30.0 g/dl Platelet Count 187 K/uL Mean Platelet Volume 10.7 fL Neutrophils (%) (Auto) 75.8 % Lymphocytes (%) (Auto) 15.5 % Monocytes (%) (Auto) 7.3 % Eosinophils (%) (Auto) 0.0 % Basophils (%) (Auto) 0.7 % Neutrophils # (Auto) 2.30 K/uL Lymphocytes # (Auto) 0.47 K/uL Monocytes # (Auto) 0.22 K/uL Eosinophils # (Auto) 0.00 K/uL Basophils # (Auto) 0.02 K/uL RDW Standard Deviation 59.2 fL RDW Coefficient of Variation 17.1 % Immature Granulocyte % (Auto) 0.7 % Immature Granulocyte # (Auto) 0.02 K/uL Sodium Level 141 mmol/L Potassium Level 3.9 mmol/L Chloride Level 101 mmol/L Carbon Dioxide Level 34 mmol/L Anion Gap 6.0 mmol/L Blood Urea Nitrogen 25 mg/dl Creatinine 1.60 mg/dl Est Creatinine Clear Calc Drug Dose 41.7 ml/min Estimated GFR () 44.6 Estimated GFR (Non- 38.4 BUN/Creatinine Ratio 15.9 Random Glucose 114 mg/dl Calcium Level 8.3 mg/dl Bedside Glucose 109 mg/dl 167 mg/dl 167 mg/dl Test 07/15/16 20:07 Bedside Glucose 178 mg/dl Assessment and Plan This is a 86-year-old male w/ a h/o DMII, adrenal insufficiency, obesity, CAD s/ p stent placement, HTN, dyslipidemia, PAF, CHF, PVD, CKD stage III, chronic anemia, COPD/emphysema, aspiration PNA, GERD, BPH, chronic constipation, h/o CVA /TIA, presents with weakness, likely combination of acute influenza type A and pneumonia as was recently in the hospital for SOB and abd pain (in [place], not tested for flu then? CHF?) Probably hospital acquired pneumonia. Generalized weakness, malaise, coughing due to influenza and pneumonia. Influenza A/Pneumonia likely hospital acquired/Dehydration/Severe COPD. -given IV vancomycin and Zosyn for HCAP but sputum cx growing rare GNR and MRSA swab nasal PCR negative so Vanco stopped especially in light of poor renal function -continue Tamiflu -supportive care -nebs -follow SPutum and BCxs -IV HC for stress dosed steroids, BP low normal -was on prednisone taper from previous hospitalization--> will continue here given significant wheezing on exam Diabetes mellitus II-stable -accuchecks, SSI -Lantus 40 units daily and convert back to home insulin upon discharge Adrenal insufficiency-on stress dosed HC IV here and then convert back to po tomrorow likely -continue 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 In NSR here. Presumably not on AC for fall risk and h/o GI bleeding -continue atenolol at lower dose, ASA, Plavix, torsemide, statin Constipation, chronic pain-opn chronic pain meds, oxycodone, gabapentin, bowel regimen Proph-heparin SQ, PPI CODE STATUS IS GOING TO BE DNR/DNI. Estimated duration of hospitalization around 4-5 days.
[2016-07-16] VITALS (11 sets, daily range): BP systolic 108–135; BP diastolic 67–81; PULSE 56–87; TEMP 36.3–36.6; O2SAT 88–97
[2016-07-16] MEDS: HYDROCORTISONE IV 50 MG in SYRINGE 0 ML IV SCH ×3 (00:02→12:05)
[2016-07-16] MEDS: ALBUT/IPRATROP 3MG/0.5MG NEB 3 ML VIAL INH SCH ×5 (01:42→20:41)
[2016-07-16] MEDS: PIPERACILL/TAZOBAC IV 3.375 GM in DEXTROSE 5% 100ML 100 ML IV SCH ×3 (04:04→21:13)
[2016-07-16] MEDS: ONDANSETRON INJ 2 MG/ML 2 ML VIAL IV PRN (06:06)
[2016-07-16] MEDS: HEPARIN SOD 5000 UNIT/0.5 ML CARP SQ SCH ×3 (06:13→21:34)
[2016-07-16] MEDS: INSULIN ASPART 100 UNITS/ML 3 ML PEN SC SCH ×4 (07:00→21:33)
[2016-07-16 07:16] LABS: BASO % 0.5 %; BASO ABS # 0.02 K/uL (0-0.2); COMPLETE YES; HEMATOCRIT 37.2 % (42-52); IG% 0.7 %; LYMPH % 10.9 %; LYMPH ABS # 0.46 K/uL (1.2-3.4); MEAN CORPUSCULAR HEMOGLOBIN 28.3 pg (25-34); MEAN CORPUSCULAR HGB CONC 30.4 g/dl (32-36); MEAN PLATELET VOLUME 10.8 fL (7.4-10.4); MONO % 3.1 %; NEUT % 84.8 %; PLATELET COUNT 187 K/uL (130-400); WHITE BLOOD COUNT 4.21 K/uL (4.8-10.8)
[2016-07-16 07:50] LABS: BUN/CREATININE RATIO 18.1 (10-20); CALCIUM 8.4 mg/dl (8.5-10.1); CREATININE 1.4 mg/dl (0.60-1.40); MAGNESIUM 3.2 mg/dl (1.8-2.4); POTASSIUM 4.2 mmol/L (3.5-5.1)
[2016-07-16] MEDS: AVODART: ORDER AWAITING ACTION SCH ×4 (08:00→21:36)
[2016-07-16] MEDS: POLYETHYLENE (MIRALAX) 17 GM PACK PO SCH ×2 (08:29→21:14)
[2016-07-16] MEDS: ARTIFICIAL TEARS OP SOLN OPB SCH ×4 (08:29→21:13)
[2016-07-16] MEDS: DOCUSATE SODIUM 100 MG CAP PO SCH ×2 (08:30→21:14)
[2016-07-16] MEDS: TORSEMIDE 20 MG TAB PO SCH (08:31)
[2016-07-16] MEDS: ASPIRIN 81 MG ECTAB PO SCH (08:32)
[2016-07-16] MEDS: CALCIUM POLYCARBOPHIL 1 TAB PO SCH (08:32)
[2016-07-16] MEDS: PANTOprazole SOD 40 MG TAB PO SCH (08:32)
[2016-07-16] MEDS: GABAPENTIN 600 MG TAB PO SCH ×2 (08:33→21:17)
[2016-07-16] MEDS: CLOPIDOGREL BISULFATE 75 MG TAB PO SCH ×2 (08:34→11:40)
[2016-07-16] MEDS: GUAIFENESIN 600 MG TABCR PO SCH ×2 (08:34→21:14)
[2016-07-16] MEDS: MAGNESIUM OXIDE 400 MG TAB PO SCH ×2 (08:34→21:15)
[2016-07-16] MEDS: POTASSIUM CHLORIDE 20 MEQ TABCR PO SCH ×2 (08:34→21:18)
[2016-07-16] MEDS: FLUDROCORTISONE ACETATE 0.1 MG TAB PO SCH (08:35)
[2016-07-16] MEDS: CEROVITE ADV FORMULA TAB PO SCH (08:36)
[2016-07-16] MEDS: LIDODERM (LIDOCAINE) PATCH 5% TD SCH (08:36)
[2016-07-16] MEDS: OXYCODONE HCL 15 MG TABCR (OXYCONTIN) PO SCH ×2 (08:57→21:25)
[2016-07-16] MEDS: BISACODYL 5 MG TABEC PO SCH ×2 (08:57→21:25)
[2016-07-16] MEDS: OSELTAMIVIR PHOSPHATE SUSP 30 MG/5 ML UDP PO SCH ×2 (11:40→21:25)
[2016-07-16] MEDS ORDERED: VANCOMYCIN TROUGH SCH (13:30)
[2016-07-16] MEDS ORDERED: SOAP SUDS ENEMA PR ONE (15:59)
[2016-07-16] MEDS ORDERED: FINASTERIDE 5 MG TAB PO ONE (16:00)
--- NOTE | 2016-07-16 16:13 | Hospitalist Progress Note ---
Hospitalist Progress Note Date of Service Jul 16, 2016. Subjective Pt evaluation today including: conversation w/ patient, conversation w/ family , physical exam, chart review, lab review, review of studies, review of inpatient medication list Voiding: gomez catheter in place Review of now available records from [place] hospitalization and in d/w and pt today reveal that he has a long standing h/o urinary retention. He was retaining 1000 mL of urine on presentation to the [facility] and had a Gomez placed. Then upon voiding trial, reports he failed it and was sent home with Gomez catheter in place. Pt feels very constipated and causing his abd pain to worsen which then in turn is causing his breathing to worsen somewhat. He and cannot recall why he is not on Flomax but review of Urol consult from 2013 mentioned orthostatic hypotension as the possible reason. BCxs / bottles positive for GPC, possible contaminant Constitutional: No fever Eyes: No problem reported ENT: No problem reported Respiratory: + dyspnea on exertion, + shortness of breath, No cough, No sputum Cardiovascular: No chest pain Abdomen: + constipation, + pain Musculoskeletal: No problem reported Male : + problem reported (urinary retention) Neurologic: No problem reported All Other Systems: Reviewed and Negative Objective Vital Signs Date Time Temp Pulse Resp B/P Pulse Ox O2 Delivery O2 Flow Rate FiO2 07/16/16 15:37 86 18 95 Nasal Cannula 2.0 07/16/16 11:34 36.5 65 22 134/80 96 07/16/16 11:09 83 18 95 Nasal Cannula 2.0 07/16/16 08:29 36.3 60 20 128/80 94 Nasal Cannula 2.0 07/16/16 07:37 56 20 94 Nasal Cannula 2.0 07/16/16 04:00 Nasal Cannula 2.0 07/16/16 03:39 36.6 63 22 119/71 94 Nasal Cannula 1.0 07/16/16 01:43 66 18 97 Nasal Cannula 2.0 07/16/16 00:02 Nasal Cannula 2.0 07/16/16 00:02 36.4 63 20 135/81 94 07/15/16 20:00 Nasal Cannula 2.0 07/15/16 19:55 83 16 94 Nasal Cannula 2.0 07/15/16 19:49 36.3 63 18 109/66 92 Nasal Cannula 2.0 07/15/16 16:00 Nasal Cannula 2.0 Physical Exam General Appearance: + mild distress, + obese Eyes: normal inspection, sclerae normal Neck: trachea midline Respiratory/Chest: + respiratory distress (mild with tachypnea), + decreased breath sounds (throughout but air movement improved from yesterday, some exp wheezing but improved) Cardiovascular: regular rate, rhythm, no edema, no gallop, no murmur Abdomen: normal bowel sounds, non tender, soft (but distended, obese) Extremities: non-tender, normal inspection, no pedal edema, no calf tenderness 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: alert, normal mood/affect, oriented x 3 Skin: normal color, warm/dry, no rash Laboratory Results Last 24 Hours Test 07/15/16 15:58 07/15/16 20:07 07/16/16 06:46 07/16/16 07:02 Bedside Glucose 167 mg/dl 178 mg/dl 206 mg/dl White Blood Count 4.21 K/uL Red Blood Count 4.00 M/uL Hemoglobin 11.3 g/dL Hematocrit 37.2 % Mean Corpuscular Volume 93.0 fL Mean Corpuscular Hemoglobin 28.3 pg Mean Corpuscular Hemoglobin Concent 30.4 g/dl Platelet Count 187 K/uL Mean Platelet Volume 10.8 fL Neutrophils (%) (Auto) 84.8 % Lymphocytes (%) (Auto) 10.9 % Monocytes (%) (Auto) 3.1 % Eosinophils (%) (Auto) 0.0 % Basophils (%) (Auto) 0.5 % Neutrophils # (Auto) 3.57 K/uL Lymphocytes # (Auto) 0.46 K/uL Monocytes # (Auto) 0.13 K/uL Eosinophils # (Auto) 0.00 K/uL Basophils # (Auto) 0.02 K/uL RDW Standard Deviation 57.6 fL RDW Coefficient of Variation 16.9 % Immature Granulocyte % (Auto) 0.7 % Immature Granulocyte # (Auto) 0.03 K/uL Sodium Level 141 mmol/L Potassium Level 4.2 mmol/L Chloride Level 105 mmol/L Carbon Dioxide Level 29 mmol/L Anion Gap 7.0 mmol/L Blood Urea Nitrogen 25 mg/dl Creatinine 1.40 mg/dl Est Creatinine Clear Calc Drug Dose 47.9 ml/min Estimated GFR () 52.4 Estimated GFR (Non- 45.2 BUN/Creatinine Ratio 18.1 Random Glucose 197 mg/dl Calcium Level 8.4 mg/dl Magnesium Level 3.2 mg/dl Test 07/16/16 11:15 Bedside Glucose 275 mg/dl Assessment and Plan This is a 86-year-old male w/ a h/o DMII, adrenal insufficiency, obesity, CAD s/ p stent placement, HTN, dyslipidemia, PAF, CHF, PVD, CKD stage III, chronic anemia, COPD/emphysema, aspiration PNA, GERD, BPH with urinary retention, chronic constipation, h/o CVA/TIA, presents with weakness, likely combination of acute influenza type A and pneumonia as was recently in the hospital for SOB and abd pain (in [place], not tested for flu then? CHF?) Probably hospital acquired pneumonia. Generalized weakness, malaise, coughing due to influenza and pneumonia. Influenza A/Pneumonia likely hospital acquired/Dehydration/Severe COPD. -given IV vancomycin and Zosyn for HCAP but sputum cx growing rare GNR/Normal ale and MRSA swab nasal PCR negative so Vanco stopped especially in light of poor renal function BCx / bottles +GPC, could be contaminant -continue Tamiflu -supportive care -repeat BCx x 1 set now -nebs -follow repeat BCxs -IV HC for stress dosed steroids--> BPs fine, return to po dosing HC -continue prednisone burst and taper -repeat CXR in AM Diabetes mellitus II-glucose rising due to prednisone -accuchecks, SSI and add carb coverage -Lantus 40 units daily and convert back to home insulin upon discharge Adrenal insufficiency-on stress dosed HC IV here and then convert back to po today -continue Florinef 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 In NSR here. Presumably not on AC for fall risk and h/o GI bleeding -continue atenolol at lower dose, ASA, Plavix, torsemide, statin Constipation, chronic pain-on chronic pain meds, oxycodone, gabapentin, bowel regimen, requesting enema today Proph-heparin SQ, PPI CODE STATUS IS GOING TO BE DNR/DNI. Estimated duration of hospitalization around 4-5 days.
[2016-07-16] MEDS: HYDROCORTISONE 10 MG TAB PO SCH (21:15)
[2016-07-16] MEDS: FAMOTIDINE 20 MG TAB PO SCH (21:16)
[2016-07-16] MEDS: TAMSULOSIN HCL 0.4 MG CAP PO SCH (21:16)
[2016-07-16] MEDS: ATORVASTATIN 20 MG TAB PO SCH (21:18)
[2016-07-16] MEDS: INSULIN GLARGINE SOLOSTAR 100 UNITS/ML 3 ML PEN SC SCH (21:33)
[2016-07-17] VITALS (14 sets, daily range): BP systolic 115–145; BP diastolic 68–89; PULSE 65–88; TEMP 36.3–36.9; O2SAT 91–96; Ht 185.4 cm; Wt 102.7 kg
[2016-07-17] MEDS: ONDANSETRON INJ 2 MG/ML 2 ML VIAL IV PRN (03:38)
[2016-07-17] MEDS: PIPERACILL/TAZOBAC IV 3.375 GM in DEXTROSE 5% 100ML 100 ML IV SCH ×3 (03:38→22:54)
[2016-07-17] MEDS: ALBUT/IPRATROP 3MG/0.5MG NEB 3 ML VIAL INH SCH ×5 (04:06→19:47)
[2016-07-17] MEDS: HEPARIN SOD 5000 UNIT/0.5 ML CARP SQ SCH ×3 (06:08→22:41)
[2016-07-17 06:40] LABS: BASO % 0.2 %; BASO ABS # 0.01 K/uL (0-0.2); COMPLETE YES; HEMATOCRIT 37.4 % (42-52); IG% 1.2 %; LYMPH % 9.2 %; LYMPH ABS # 0.45 K/uL (1.2-3.4); MEAN CELL VOLUME 93.5 fL (80-100); MEAN PLATELET VOLUME 10.7 fL (7.4-10.4); MONO % 5.9 %; NEUT % 83.5 %; PLATELET COUNT 212 K/uL (130-400); WHITE BLOOD COUNT 4.89 K/uL (4.8-10.8)
[2016-07-17 07:08] LABS: CALCIUM 8.3 mg/dl (8.5-10.1); CREATININE 1.6 mg/dl (0.60-1.40); POTASSIUM 3.9 mmol/L (3.5-5.1)
--- NOTE | 2016-07-17 07:48 | DIAGNOSTIC IMAGING REPORT ---
CHEST ONE VIEW PORTABLE CLINICAL HISTORY: Pneumonia COMPARISON STUDY: 07/14/2016 FINDINGS: The heart is borderline enlarged. There are improving bilateral interstitial opacities. There are no significant pleural effusions. IMPRESSION: Emphysema, and slight interval improvement in the bilateral interstitial opacities Electronically signed by: Sridhar Chowdary M.D. 07/17/2016 7:47 AM
[2016-07-17] MEDS: AVODART: ORDER AWAITING ACTION SCH ×2 (08:00→16:00)
[2016-07-17] MEDS: INSULIN ASPART 100 UNITS/ML 3 ML PEN SC SCH ×4 (08:24→21:00)
[2016-07-17] MEDS: ARTIFICIAL TEARS OP SOLN OPB SCH ×4 (08:26→22:39)
[2016-07-17] MEDS: MAGNESIUM OXIDE 400 MG TAB PO SCH ×2 (08:26→22:10)
[2016-07-17] MEDS: PANTOprazole SOD 40 MG TAB PO SCH (08:27)
[2016-07-17] MEDS: FINASTERIDE 5 MG TAB PO SCH (08:27)
[2016-07-17] MEDS: GABAPENTIN 600 MG TAB PO SCH ×2 (08:27→22:08)
[2016-07-17] MEDS: CALCIUM POLYCARBOPHIL 1 TAB PO SCH (08:27)
[2016-07-17] MEDS: FLUDROCORTISONE ACETATE 0.1 MG TAB PO SCH (08:28)
[2016-07-17] MEDS: GUAIFENESIN 600 MG TABCR PO SCH ×2 (08:28→22:06)
[2016-07-17] MEDS: CEROVITE ADV FORMULA TAB PO SCH (08:28)
[2016-07-17] MEDS: TORSEMIDE 20 MG TAB PO SCH (08:29)
[2016-07-17] MEDS: CLOPIDOGREL BISULFATE 75 MG TAB PO SCH (08:29)
[2016-07-17] MEDS: DOCUSATE SODIUM 100 MG CAP PO SCH ×2 (08:30→22:06)
[2016-07-17] MEDS: LIDODERM (LIDOCAINE) PATCH 5% TD SCH (08:30)
[2016-07-17] MEDS: ASPIRIN 81 MG ECTAB PO SCH (08:30)
[2016-07-17] MEDS: HYDROCORTISONE 10 MG TAB PO SCH ×2 (08:31→22:07)
[2016-07-17] MEDS: BISACODYL 5 MG TABEC PO SCH ×2 (08:34→22:44)
[2016-07-17] MEDS: POLYETHYLENE (MIRALAX) 17 GM PACK PO SCH ×2 (08:34→22:11)
[2016-07-17] MEDS: OXYCODONE HCL 15 MG TABCR (OXYCONTIN) PO SCH ×2 (08:34→22:17)
[2016-07-17] MEDS: POTASSIUM CHLORIDE 20 MEQ TABCR PO SCH ×2 (08:35→22:18)
[2016-07-17] MEDS ORDERED: NURSING VERBAL MED ORDER ONE (09:15)
[2016-07-17] MEDS: OSELTAMIVIR PHOSPHATE SUSP 30 MG/5 ML UDP PO SCH ×2 (09:21→22:53)
[2016-07-17] MEDS ORDERED: FUROSEMIDE INJ 40 MG in SYRINGE 0 ML IV ONE (09:45)
--- NOTE | 2016-07-17 13:05 | Clinical Documentation Query ---
CLINICAL DOCUMENTATION QUERY 86 year old male who presents to the Emergency Room with complaints of worsening shortness of breath Query #1/2 In your clinical opinion is this patient being managed for: ( x) Acute on chronic diastolic heart failure treated with IV Lasix in setting of pneumonia and influenza. ( ) Other explanation of clinical findings (Please Explain) ( ) Unable to determine (Please Define) ( ) Need to Discuss ( ) Not Agree The medical record reflects the following clinical findings, treatment, and risk factors. Clinical Indicators: Declining sats on 4L NC. Labored breathing. Coarse crackles by auscultation. Treatment: IV Lasix, telemetry, I/O's, daily weights, Risk Factors: Age, Hx of CHF, underlying influenza and pneumonia. Query #2/2 In your clinical opinion is this patient being managed for: ( x ) Pressure ulcer of bilateral buttock, stage 2 POA ( ) Other explanation of clinical findings (Please Explain) ( ) Unable to determine (Please Define) ( ) Need to Discuss ( ) Not Agree The medical record reflects the following clinical findings, treatment, and risk factors. Clinical Indicators: WOCN notes pressure ulcers stage II to bilateral buttocks Treatment: WOCN consult Risk Factors: Age, DM Please clarify and document your clinical opinion in the progress notes and discharge summary. Terms such as "probable", "suspected", "likely", "questionable", "possible", or "still to be ruled out" are acceptable. IF IN AGREEMENT, YOU MUST DOCUMENT ABOVE DIAGNOSTIC STATEMENT IN DAILY PROGRESS NOTES AND DISCHARGE SUMMARY. This document is not part of the patient's record. Thank You, Leonardo Salazar, GUERDA [phone]
--- NOTE | 2016-07-17 14:04 | Urology Consultation ---
History General Date of Service: Jul 17, 2016. Chief Complaint: urinary retention Primary Care Physician: Wilver Franco M.D. Pt seen a urologist before?: Yes (Dr. Miller last seen in 2013) If yes, why?: BPH, hx of urinary retention History of Present Illness 86 yo admitted for Influenza A/Pneumonia likely hospital acquired/Dehydration/ Severe COPD. consulted for urinary retention. The pt has seen Dr. Miller for BPH in the past. He has been on Flomax and finasteride for several years. He reports several months of weak stream, hesitancy, incomplete bladder emptying, and nocturia 3x per night. The pt was hospitalized in [place], [place] last week for flu like symptoms and developed UR at that time. Gomez placed for 1000ml urine return. Attempted and failed TOV prior to that discharge and gomez replaced at that time. Gomez in place today draining clear, yellow urine. UA on admission showed some blood. No UC&S performed. Blood culture preliminarily positive growing gram positive cocci. He has been placed on IV Zosyn. Laboratory Last 24 Hours Test 07/16/16 16:04 07/16/16 20:05 07/17/16 06:18 07/17/16 06:34 Bedside Glucose 392 mg/dl 317 mg/dl 162 mg/dl White Blood Count 4.89 K/uL Red Blood Count 4.00 M/uL Hemoglobin 11.6 g/dL Hematocrit 37.4 % Mean Corpuscular Volume 93.5 fL Mean Corpuscular Hemoglobin 29.0 pg Mean Corpuscular Hemoglobin Concent 31.0 g/dl Platelet Count 212 K/uL Mean Platelet Volume 10.7 fL Neutrophils (%) (Auto) 83.5 % Lymphocytes (%) (Auto) 9.2 % Monocytes (%) (Auto) 5.9 % Eosinophils (%) (Auto) 0.0 % Basophils (%) (Auto) 0.2 % Neutrophils # (Auto) 4.08 K/uL Lymphocytes # (Auto) 0.45 K/uL Monocytes # (Auto) 0.29 K/uL Eosinophils # (Auto) 0.00 K/uL Basophils # (Auto) 0.01 K/uL RDW Standard Deviation 56.8 fL RDW Coefficient of Variation 16.6 % Immature Granulocyte % (Auto) 1.2 % Immature Granulocyte # (Auto) 0.06 K/uL Nucleated RBC Absolute Count (auto) 0.03 K/uL Nucleated Red Blood Cells % 0.7 % Sodium Level 143 mmol/L Potassium Level 3.9 mmol/L Chloride Level 104 mmol/L Carbon Dioxide Level 32 mmol/L Anion Gap 7.0 mmol/L Blood Urea Nitrogen 27 mg/dl Creatinine 1.60 mg/dl Est Creatinine Clear Calc Drug Dose 41.7 ml/min Estimated GFR () 44.6 Estimated GFR (Non- 38.4 BUN/Creatinine Ratio 17.0 Random Glucose 162 mg/dl Calcium Level 8.3 mg/dl Problem List Medical Problems: (1) Acute on chronic renal failure Status: Acute (2) Fever Status: Acute (3) Hypoglycemia Status: Acute (4) Influenza A Status: Acute (5) Reactive airway disease Status: Acute Past History A Fib, BPH, congestive heart failure, COPD, coronary artery disease, CVA/TIA/ stroke, diabetes, diverticulosis, high cholesterol, hypertension, urinary tract infection, other (chronic constipation, chronic anemia, CKD stage III) Past Surgical History: cardiac catheterization Family History FH: heart disease Hypertension Social History Hx Tobacco Use In Past Year?: No (QUIT ABOUT 3 YRS AGO) Smoking: quit greater than 1 year Alcohol: no current use Marital status: Housing status: lives with family, lives with significant other Occupation status: retired Immunizations History of Influenza Vaccine: Yes Influenza Vaccine Date: Jun 08, 2013 History of Tetanus Vaccine?: Unknown History of Pneumococcal: Yes History of Hepatitis B Vaccine: Unknown Allergies Coded Allergies: No Known Allergies (Unverified , 11/08/14) Medications Home Medications: Home Meds and Scripts Medications Dose Route/Sig Max Daily Dose Days Date Category Dose Instructions Prednisone 20 Mg Tab 20 Mg PO UD 07/14/16 Reported 20MG TID X 3 DAYS 20MG BID X 3 DAYS 20MG DAILY X 3 DAYS 10MG DAILY X 3 DAYS STOP Therems M (Multiple Vitamins W/ Minerals) 1 Tab Tab 1 Tab PO DAILY 07/14/16 Reported Fiber Laxative (Calcium Polycarbophil) 625 Mg Tab 1 Tab PO DAILY 07/14/16 Reported Levaquin (Levofloxacin) 500 Mg Tab 500 Mg PO DAILY 7 07/14/16 Reported Keflex (Cephalexin Monohydrate) 500 Mg Cap 500 Mg PO QID 07/14/16 Reported Oxycontin (Oxycodone Hcl) 15 Mg Tab 15 Mg PO Q12 07/14/16 Reported Mag-Ox (Magnesium Oxide) 400 Mg Tab 400 Mg PO BID 07/14/16 Reported Gabapentin 600 Mg Tab 600 Mg PO BID 07/14/16 Reported Demadex (Torsemide) 20 Mg Tab 50 Mg PO 3XWK 07/14/16 Reported MON, WED, FRI ALONG WITH 100MG TO = 150MG Systane Ultra (Polyethylene Glycol-Propylene) 1 Idania Idania 1 Drops OPB BID 07/14/16 Reported Tylenol (Acetaminophen) 500 Mg Tab 1,000 Mg PO AMPM PRN 07/14/16 Reported Demadex (Torsemide) 100 Mg Tab 100 Mg PO DAILY 07/14/16 Reported Novolin 70/30 (Insulin Human Isoph/Insulin Regular) Inj 10 Units SC BID 05/27/15 Reported Fleet Enema (Sodium Phosphate/Biphosphate) Eleanor [address] UD PRN 05/27/15 Reported IF DULCOLAX SUPPOSITORY INEFFECTIVE Menthol Cough Drops (Throat Lozenges) 5 Mg Mary Jo 1 Mary Jo MT PRN 05/27/15 Reported Ativan (Lorazepam) 1 Mg Tab 1 Mg PO DAILY PRN 05/27/15 Reported Ventolin Hfa (Albuterol) 200 Puffs/72364 Mcg Aers 2 Puff INH Q4 PRN 05/27/15 Reported Lipitor (Atorvastatin Calcium) 20 Mg Tab 20 Mg PO HS 05/27/15 Reported Klor-Con M20 (Potassium Chloride) 20 Meq Tabcr 2 Tab PO BID 05/27/15 Reported Spiriva Handihaler (Tiotropium Swiss[place]) 30 Puff/540 Mcg Aerp 1 Cap INH DAILY 05/27/15 Reported Prilosec (Omeprazole) 20 Mg Cap 20 Mg PO DAILY 05/27/15 Reported Bisac-Evac (Bisacodyl) 10 Mg Sup 10 Mg RE UNKNOWN 11/25/14 Reported NO BM IN 3 DAYS, GIVE IN AM ON DAY 4 Milk Of Magnesia (Magnesium Hydroxide) 30 Ml Susp 30 Ml PO UD PRN 11/25/14 Reported IF NO BM IN 2 DAYS, GIVE ON DAY THREE Ventolin (Albuterol) Inh 2 Puff INH Q2H PRN 11/25/14 Reported Atenolol 25 Mg Tab 24 Mg PO DAILY 11/25/14 Reported Roxanol Oral (Morphine Sulfate) 20 Mg/1 Ml Soln 10 Mg SL Q2H PRN 11/08/14 Reported [Magic Movement] 1 Dose PO BID 11/08/14 Reported Aspirin Chewable (Aspirin) 81 Mg Chew 81 Mg PO DAILY 11/08/14 Reported Bisacodyl 5 Mg Tab 5 Mg PO BID 10/09/14 Reported Lantus (Insulin Glargine) Vial 40 Units SC QPM 08/23/14 Reported Plavix (Clopidogrel Bisulfate) 75 Mg Tab 75 Mg PO DAILY 07/15/14 Reported Cortef (Hydrocortisone) 20 Mg Tab 40 Mg PO BID 04/21/14 Reported Miralax (Polyethylene Glycol 3350) 1 Pow Pow 17 Gm PO BID 11/16/13 Reported Colace (Docusate Sodium) 100 Mg Cap 100 Mg PO BID 11/16/13 Reported Florinef (Fludrocortisone Acetate) 0.1 Mg Tab 0.1 Mg PO DAILY 09/09/13 Reported Pepcid (Famotidine) 20 Mg Tab 20 Mg PO HS 09/09/13 Reported Avodart (Dutasteride) 0.5 Mg Cap 0.5 Mg PO DAILY 09/09/13 Reported Inpatient Medications: Current Inpatient Medications Medications (Trade) Dose Ordered Sig/Cole Route Start Time Stop Time Status Last Admin Dose Admin Heparin Sodium (Porcine) (Heparin Sq 5000 Unit/0.5ml) 5,000 unit Q8 SQ 07/14/16 22:00 08/13/16 21:59 07/17/16 13:27 5,000 UNIT Acetaminophen (Tylenol Tab) 650 mg Q4H PRN PO 07/14/16 11:30 08/13/16 11:29 07/14/16 12:21 650 MG Ondansetron HCl (Zofran Inj) 4 mg Q6H PRN IV 07/14/16 11:30 08/13/16 11:29 07/17/16 03:38 4 MG Nitroglycerin (Nitrostat Tab) 0.4 mg UD PRN SL 07/14/16 11:30 08/13/16 11:29 Oseltamivir Phosphate (Tamiflu Susp) 30 mg BID PO 07/14/16 21:00 07/19/16 20:59 07/17/16 09:21 30 MG Insulin Aspart (novoLOG ASPART) SLIDING SCALE If C... ACHS SC 07/14/16 16:00 07/17/16 13:26 7 UNITS Glucose (Glucose 40% Gel) 15-30 GRAMS 15 GRAMS... UD PRN PO 07/14/16 11:30 08/13/16 11:29 Glucose (Glucose Chew Tab) 4-8 Tablets 4 Tabl... UD PRN PO 07/14/16 11:30 08/13/16 11:29 Dextrose (Dextrose 50% 50ML Syringe) 25-50ML OF 50% DW IV FOR... UD PRN IV 07/14/16 11:30 08/13/16 11:29 Glucagon (Glucagon Inj) 1 mg UD PRN SQ 07/14/16 11:30 08/13/16 11:29 Guaifenesin (Mucinex Contr Rel Tab) 1,200 mg Q12 PO 07/14/16 12:00 08/13/16 11:59 07/17/16 08:28 1,200 MG Atorvastatin Calcium (Lipitor Tab) 20 mg HS PO 07/14/16 21:00 08/13/16 20:59 07/16/16 21:18 20 MG Bisacodyl (Dulcolax Tab) 5 mg BID PO 07/14/16 21:00 08/13/16 20:59 07/17/16 08:34 5 MG Calcium Polycarbophil (Fibercon Tab) 1 tab DAILY PO 07/15/16 09:00 08/14/16 08:59 07/17/16 08:27 1 TAB Clopidogrel Bisulfate (plAVix TAB) 75 mg DAILY PO 07/15/16 09:00 08/14/16 08:59 07/17/16 08:29 75 MG Docusate Sodium (coLACE CAP) 100 mg BID PO 07/14/16 21:00 08/13/16 20:59 07/17/16 08:30 100 MG Famotidine (Pepcid Tab) 20 mg HS PO 07/14/16 21:00 08/13/16 20:59 07/16/16 21:16 20 MG Fludrocortisone Acetate (Florinef Tab) 0.1 mg DAILY PO 07/15/16 09:00 08/14/16 08:59 07/17/16 08:28 0.1 MG Gabapentin (Neurontin Tab) 600 mg BID PO 07/14/16 21:00 08/13/16 20:59 07/17/16 08:27 600 MG Insulin Glargine (Lantus Solostar Pen) 40 unit QPM SC 07/14/16 21:00 08/13/16 20:59 07/16/16 21:33 40 UNIT Lorazepam (Ativan Tab) 1 mg DAILY PRN PO 07/14/16 11:30 08/13/16 11:29 Magnesium Hydroxide (Milk Of Magnesia Susp) 30 ml UD PRN PO 07/14/16 11:30 08/13/16 11:29 Magnesium Oxide (Mag-Ox Tab) 400 mg BID PO 07/14/16 21:00 08/13/16 20:59 07/17/16 08:26 400 MG Multivitamins/ Minerals (Multivitamin W/ Minerals Tab) 1 tab DAILY PO 07/15/16 09:00 08/14/16 08:59 07/17/16 08:28 1 TAB Oxycodone HCl (Oxycontin Tab) 15 mg Q12 PO 07/14/16 21:00 07/28/16 20:59 07/17/16 08:34 15 MG Polyethylene (Miralax Powder Packet) 17 gm BID PO 07/14/16 21:00 08/13/16 20:59 07/17/16 08:34 17 GM Potassium Chloride (Klor-Con Tab) 40 meq BID PO 07/14/16 21:00 08/13/16 20:59 07/17/16 08:35 40 MEQ Torsemide (Demadex Tab) 100 mg DAILY PO 07/16/16 09:00 08/15/16 08:59 07/17/16 08:29 100 MG Miscellaneous Information (Order Awaiting Action) 1 ea QS N/A 07/14/16 16:00 08/13/16 15:59 Pantoprazole Sodium (Protonix Tab) 40 mg DAILY PO 07/15/16 09:00 08/14/16 08:59 07/17/16 08:27 40 MG Artificial Tears (Artificial Tears) 1 drops BID OPB 07/14/16 21:00 08/13/16 20:59 07/17/16 08:26 1 DROPS Albuterol/ Ipratropium 3 ml 3 ml QIDR INH 07/14/16 12:00 08/13/16 11:59 07/17/16 11:45 3 ML Piperacillin Sod/ Tazobactam Sod/ Dextrose (Zosyn Iv/D5 100ml) 115 ml @ 28.75 mls/ hr Q8H IV 07/14/16 20:00 07/24/16 19:59 07/17/16 12:00 28.75 MLS/HR Piperacillin Sod/ Tazobactam Sod (Consult) 1 ea UD PRN N/A 07/14/16 15:15 08/13/16 15:14 Aspirin (Ecotrin Tab) 81 mg QAM PO 07/15/16 09:00 08/14/16 08:59 07/17/16 08:30 81 MG Atenolol (Tenormin Tab) 12.5 mg DAILY PO 07/15/16 09:00 08/14/16 08:59 07/17/16 08:30 12.5 MG Lidocaine (Lidoderm Patch 5%) 1 patch QAM TD 07/15/16 09:00 08/14/16 08:59 07/17/16 08:30 1 PATCH Miscellaneous (Remove Lidoderm Patch) 1 ea DAILY@21 N/A 07/15/16 21:00 08/14/16 20:59 07/16/16 21:13 1 EA Prednisone (PredniSONE TAB) 60 mg DAILY PO 07/16/16 09:00 08/15/16 08:59 07/17/16 08:29 60 MG Tamsulosin HCl (Flomax Cap) 0.4 mg HS PO 07/16/16 21:00 08/15/16 20:59 07/16/16 21:16 0.4 MG Finasteride (Proscar Tab) 5 mg QAM PO 07/17/16 09:00 08/16/16 08:59 07/17/16 08:27 5 MG Hydrocortisone (Cortef Tab) 40 mg BID PO 07/16/16 21:00 08/15/16 20:59 07/17/16 08:31 40 MG Review of Systems Review of Systems Constitutional: No chills, No fever Eyes: No double vision Neurological: No dizzy Endocrine: No excessive thirst Gastrointestinal: No abdominal pain, No nausea, No vomiting Cardiovascular: No chest pain Respiratory: + shortness of breath Skin: No rash Musculoskeletal: + arthritis Male : + urinary retention, No blood in urine Physical Exam Vital Signs: Vital Signs Past 12 Hours Date Time Temp Pulse Resp B/P Pulse Ox O2 Delivery O2 Flow Rate FiO2 07/17/16 12:00 92 Nasal Cannula 4.0 07/17/16 11:45 76 12 95 Nasal Cannula 2.0 07/17/16 11:32 36.9 66 22 130/78 95 Nasal Cannula 4.0 07/17/16 08:43 36.8 88 18 115/76 96 07/17/16 08:00 92 Nasal Cannula 4.0 07/17/16 07:21 74 12 93 Nasal Cannula 2.0 07/17/16 04:06 68 18 91 Nasal Cannula 2.0 07/17/16 04:02 Nasal Cannula 2.0 07/17/16 03:46 36.4 73 23 118/68 93 Nasal Cannula 2.0 Physical Exam: General Appearance: no apparent distress Eyes: bilateral eyes normal inspection ENT: hearing grossly normal Neck: no JVD Respiratory/Chest: no respiratory distress, no accessory muscle use Cardiovascular: no JVD Extremities: normal inspection 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: alert, normal mood/affect, oriented x 3 Skin: normal color Assessment & Plan Assessment & Plan A/P: Urinary retention AFVSS. Suspect UR secondary to BPH. Recommend leaving gomez catheter in place another 7-10 days. Can attempt a TOV as outpatient at that time. Continue Flomax and finasteride. Will order a PSA while inpatient. Plan for outpatient f/u with Dr. Miller in 1-2 weeks with possible cysto. Thanks for the consult. No further management at this time. Recall PRN issues. Psa [phone] . Will give pt voiding trial after he recovers as outpt
--- NOTE | 2016-07-17 16:45 | Hospitalist Progress Note ---
Hospitalist Progress Note Date of Service Jul 17, 2016. Subjective Pt evaluation today including: conversation w/ patient, physical exam, chart review, lab review, review of studies, review of inpatient medication list PO Intake: christi po Voiding: gomez catheter in place Pt had nausea and worsening SOB this AM relieved with antiemetic and lasix IV x 1, has put out 1400 mL urine so far. Was OOB to chair today x 2 hours and feeling better. He is moving his bowels. Constitutional: No fever Respiratory: + shortness of breath Cardiovascular: No chest pain Abdomen: No constipation Skin: No rash All Other Systems: Reviewed and Negative Objective Vital Signs Date Time Temp Pulse Resp B/P Pulse Ox O2 Delivery O2 Flow Rate FiO2 07/17/16 16:00 92 Nasal Cannula 4.0 07/17/16 12:00 92 Nasal Cannula 4.0 07/17/16 11:45 76 12 95 Nasal Cannula 2.0 07/17/16 11:32 36.9 66 22 130/78 95 Nasal Cannula 4.0 07/17/16 08:43 36.8 88 18 115/76 96 07/17/16 08:00 92 Nasal Cannula 4.0 07/17/16 07:21 74 12 93 Nasal Cannula 2.0 07/17/16 04:06 68 18 91 Nasal Cannula 2.0 07/17/16 04:02 Nasal Cannula 2.0 07/17/16 03:46 36.4 73 23 118/68 93 Nasal Cannula 2.0 07/17/16 00:28 36.4 77 24 125/70 94 Nasal Cannula 2.0 07/17/16 00:03 Nasal Cannula 2.0 07/16/16 20:42 64 16 88 Nasal Cannula 1.0 07/16/16 20:05 Nasal Cannula 2.0 07/16/16 19:47 36.4 68 18 122/74 92 Nasal Cannula Physical Exam General Appearance: WD/WN, no apparent distress Eyes: normal inspection, sclerae normal ENT: hearing grossly normal, pharynx normal Neck: trachea midline Respiratory/Chest: no respiratory distress, no accessory muscle use, + crackles (at bases but otherwise much clearer than previous and moving air better) Cardiovascular: regular rate, rhythm, no edema, no gallop, no murmur Abdomen: normal bowel sounds, non tender, soft (and obese) Extremities: non-tender, normal inspection, no pedal edema, no calf tenderness 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: alert, normal mood/affect, oriented x 3 Skin: normal color, warm/dry, no rash Laboratory Results Last 24 Hours Test 07/16/16 20:05 07/17/16 06:18 07/17/16 06:34 07/17/16 11:19 Bedside Glucose 317 mg/dl 162 mg/dl 242 mg/dl White Blood Count 4.89 K/uL Red Blood Count 4.00 M/uL Hemoglobin 11.6 g/dL Hematocrit 37.4 % Mean Corpuscular Volume 93.5 fL Mean Corpuscular Hemoglobin 29.0 pg Mean Corpuscular Hemoglobin Concent 31.0 g/dl Platelet Count 212 K/uL Mean Platelet Volume 10.7 fL Neutrophils (%) (Auto) 83.5 % Lymphocytes (%) (Auto) 9.2 % Monocytes (%) (Auto) 5.9 % Eosinophils (%) (Auto) 0.0 % Basophils (%) (Auto) 0.2 % Neutrophils # (Auto) 4.08 K/uL Lymphocytes # (Auto) 0.45 K/uL Monocytes # (Auto) 0.29 K/uL Eosinophils # (Auto) 0.00 K/uL Basophils # (Auto) 0.01 K/uL RDW Standard Deviation 56.8 fL RDW Coefficient of Variation 16.6 % Immature Granulocyte % (Auto) 1.2 % Immature Granulocyte # (Auto) 0.06 K/uL Nucleated RBC Absolute Count (auto) 0.03 K/uL Nucleated Red Blood Cells % 0.7 % Sodium Level 143 mmol/L Potassium Level 3.9 mmol/L Chloride Level 104 mmol/L Carbon Dioxide Level 32 mmol/L Anion Gap 7.0 mmol/L Blood Urea Nitrogen 27 mg/dl Creatinine 1.60 mg/dl Est Creatinine Clear Calc Drug Dose 41.7 ml/min Estimated GFR () 44.6 Estimated GFR (Non- 38.4 BUN/Creatinine Ratio 17.0 Random Glucose 162 mg/dl Calcium Level 8.3 mg/dl Test 07/17/16 14:58 Prostate Specific Antigen 0.338 ng/ml Assessment and Plan This is a 86-year-old male w/ a h/o DMII, adrenal insufficiency, obesity, CAD s/ p stent placement, HTN, dyslipidemia, PAF, CHF, PVD, CKD stage III, chronic anemia, COPD/emphysema, aspiration PNA, GERD, BPH with urinary retention, chronic constipation, h/o CVA/TIA, presents with weakness, likely combination of acute influenza type A and pneumonia as was recently in the hospital for SOB and abd pain (in [place], not tested for flu then? CHF?) Probably hospital acquired pneumonia. Generalized weakness, malaise, coughing due to influenza and pneumonia. Influenza A/Pneumonia likely hospital acquired/Dehydration/Severe COPD: -given IV vancomycin and Zosyn for HCAP but sputum cx growing rare GNR/Normal ale and MRSA swab nasal PCR negative so Vanco stopped especially in light of poor renal function BCx 07/18 bottles +GPC, could be contaminant-ID and Sens still pending Repeat BCx from 07/16 NGTD Repeat CXR 07/17 improved PNA -continue Tamiflu x 5 day course -continue Zosyn x 7 days -supportive care -nebs -IV HC for stress dosed steroids--> BPs fine, returned to po dosing HC -continue prednisone burst and taper Diabetes mellitus II-glucose rising due to prednisone -accuchecks, SSI and add carb coverage -increase Lantus to 45 units daily Adrenal insufficiency-on stress dosed HC IV here x 2 days and then convert back to po HC 40mg bid -continue Florinef Chronic kidney disease stage III-family court justice baseline 1.5-2.0, 1.7 on admission, now 1.4 -> 1.6, stable -avoid nephrotoxins -renally dose meds -follow labs BPH w/ urinary retention- with Gomez placed at [facility] after found 1000 mL retained urine and failed voiding trial prior to discharge on 07/14 -on Avodart at home, not formulary here--> start finasteride in place -start Flomax and watch for orthostasis -Urology saw and recommends keeping Gomez in 7-10 days and f/u in the office for voiding trial HTN/CAD/chronic diastolic CHF/PAF -BPs low on admission. In NSR here. Presumably not on AC for fall risk and h/o GI bleeding -continue atenolol at lower dose, ASA, Plavix, torsemide, statin -gave lasix 40mg IV x 1 on 07/17 for fluid overload -follow I/Os, daily weights, renal function Constipation, chronic pain-improved, on chronic pain meds, -continue oxycodone, gabapentin, bowel regimen Proph-heparin SQ, PPI CODE STATUS IS GOING TO BE DNR/DNI. Estimated duration of hospitalization around 4-5 days.
[2016-07-17] MEDS: INSULIN GLARGINE SOLOSTAR 100 UNITS/ML 3 ML PEN SC SCH (21:57)
[2016-07-17] MEDS: ATORVASTATIN 20 MG TAB PO SCH (22:07)
[2016-07-17] MEDS: FAMOTIDINE 20 MG TAB PO SCH (22:09)
[2016-07-17] MEDS: TAMSULOSIN HCL 0.4 MG CAP PO SCH (22:11)
[2016-07-18] VITALS (9 sets, daily range): BP systolic 116–157; BP diastolic 74–89; PULSE 60–102; TEMP 36.3–36.5; O2SAT 95–97
[2016-07-18] MEDS: ALBUT/IPRATROP 3MG/0.5MG NEB 3 ML VIAL INH SCH ×5 (03:41→19:31)
[2016-07-18] MEDS: PIPERACILL/TAZOBAC IV 3.375 GM in DEXTROSE 5% 100ML 100 ML IV SCH ×3 (05:57→22:23)
[2016-07-18] MEDS: HEPARIN SOD 5000 UNIT/0.5 ML CARP SQ SCH ×3 (05:59→22:14)
[2016-07-18 07:51] LABS: BASO % 0.2 %; BASO ABS # 0.01 K/uL (0-0.2); COMPLETE YES; EOS % 0.2 %; HEMATOCRIT 36.8 % (42-52); LYMPH % 11.1 %; LYMPH ABS # 0.58 K/uL (1.2-3.4); MEAN CELL VOLUME 93.6 fL (80-100); MEAN CORPUSCULAR HEMOGLOBIN 28.8 pg (25-34); MEAN CORPUSCULAR HGB CONC 30.7 g/dl (32-36); MEAN PLATELET VOLUME 10.5 fL (7.4-10.4); MONO % 4.4 %; NEUT % 83.1 %; PLATELET COUNT 223 K/uL (130-400); RED BLOOD COUNT 3.93 M/uL (4.7-6.1); WHITE BLOOD COUNT 5.22 K/uL (4.8-10.8)
[2016-07-18] MEDS: AVODART: ORDER AWAITING ACTION SCH ×4 (08:00→23:39)
[2016-07-18] MEDS: FLUDROCORTISONE ACETATE 0.1 MG TAB PO SCH (08:06)
[2016-07-18] MEDS: OXYCODONE HCL 15 MG TABCR (OXYCONTIN) PO SCH ×2 (08:06→21:56)
[2016-07-18] MEDS: FINASTERIDE 5 MG TAB PO SCH (08:06)
[2016-07-18] MEDS: MAGNESIUM OXIDE 400 MG TAB PO SCH ×2 (08:07→22:01)
[2016-07-18] MEDS: CEROVITE ADV FORMULA TAB PO SCH (08:07)
[2016-07-18] MEDS: HYDROCORTISONE 10 MG TAB PO SCH ×2 (08:08→22:02)
[2016-07-18] MEDS: GABAPENTIN 600 MG TAB PO SCH ×2 (08:08→22:00)
[2016-07-18] MEDS: GUAIFENESIN 600 MG TABCR PO SCH ×2 (08:08→21:57)
[2016-07-18] MEDS: CLOPIDOGREL BISULFATE 75 MG TAB PO SCH (08:09)
[2016-07-18] MEDS: CALCIUM POLYCARBOPHIL 1 TAB PO SCH (08:09)
[2016-07-18] MEDS: DOCUSATE SODIUM 100 MG CAP PO SCH ×2 (08:09→21:00)
[2016-07-18] MEDS: TORSEMIDE 20 MG TAB PO SCH (08:10)
[2016-07-18] MEDS: PANTOprazole SOD 40 MG TAB PO SCH (08:11)
[2016-07-18] MEDS: POLYETHYLENE (MIRALAX) 17 GM PACK PO SCH ×2 (08:11→21:00)
[2016-07-18] MEDS: POTASSIUM CHLORIDE 20 MEQ TABCR PO SCH ×2 (08:11→22:03)
[2016-07-18] MEDS: ASPIRIN 81 MG ECTAB PO SCH (08:12)
[2016-07-18] MEDS: LIDODERM (LIDOCAINE) PATCH 5% TD SCH (08:13)
[2016-07-18] MEDS: ARTIFICIAL TEARS OP SOLN OPB SCH ×4 (08:14→21:56)
[2016-07-18] MEDS: BISACODYL 5 MG TABEC PO SCH ×2 (08:18→21:00)
[2016-07-18 08:39] LABS: BUN/CREATININE RATIO 19.2 (10-20); CALCIUM 8.7 mg/dl (8.5-10.1); CREATININE 1.6 mg/dl (0.60-1.40); MAGNESIUM 2.7 mg/dl (1.8-2.4); POTASSIUM 3.3 mmol/L (3.5-5.1)
[2016-07-18] MEDS: INSULIN ASPART 100 UNITS/ML 3 ML PEN SC SCH ×4 (09:03→22:14)
[2016-07-18] MEDS: OSELTAMIVIR PHOSPHATE SUSP 30 MG/5 ML UDP PO SCH ×2 (09:10→21:00)
--- NOTE | 2016-07-18 14:33 | Hospitalist Progress Note ---
Hospitalist Progress Note Date of Service Jul 18, 2016. Subjective Pt evaluation today including: conversation w/ patient, conversation w/ family , physical exam, chart review, lab review, review of studies, review of inpatient medication list Voiding: gomez catheter in place Pt feels good, breathing improved, on 4LNC here and usually on 2LNC at home, eating and drinking, moving his bowels, afebrile, no abd pain. Was OOB to chair x 2 hrs today and awaiting his PT eval Constitutional: No fever Respiratory: No shortness of breath Cardiovascular: No chest pain Abdomen: No constipation, No pain All Other Systems: Reviewed and Negative Objective Vital Signs Date Time Temp Pulse Resp B/P Pulse Ox O2 Delivery O2 Flow Rate FiO2 07/18/16 11:08 102 18 95 Nasal Cannula 4.0 07/18/16 09:41 82 97 07/18/16 08:33 36.4 60 22 118/74 96 Nasal Cannula 4.0 07/18/16 07:08 60 18 96 Nasal Cannula 4.0 07/18/16 03:41 70 18 97 Nasal Cannula 4.0 07/18/16 00:19 36.3 74 18 116/77 96 4.0 07/17/16 23:40 Nasal Cannula 4.0 07/17/16 19:47 66 16 96 Nasal Cannula 6.0 07/17/16 19:07 36.3 65 20 145/79 95 Nasal Cannula 4.0 07/17/16 18:44 36.3 76 22 96 2.0 07/17/16 16:46 36.3 76 22 141/89 96 Nasal Cannula 4.0 07/17/16 16:00 92 Nasal Cannula 4.0 Physical Exam General Appearance: WD/WN, no apparent distress Eyes: normal inspection, sclerae normal Neck: trachea midline Respiratory/Chest: no respiratory distress, no accessory muscle use, + wheezing (diffuse on exp but good air movement) Cardiovascular: regular rate, rhythm, no gallop, no murmur, + pertinent finding (1+ pitting edema legs bilat to knees) Abdomen: normal bowel sounds, non tender, soft (and protubreant) Extremities: normal range of motion, non-tender, no calf tenderness 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: alert, normal mood/affect, oriented x 3 Skin: + pertinent finding (right buttocks with stage 2 decub ulcer) Laboratory Results Last 24 Hours Test 1/3/17 14:58 07/17/16 16:37 07/17/16 20:05 07/18/16 07:20 Prostate Specific Antigen 0.338 ng/ml Bedside Glucose 195 mg/dl 142 mg/dl White Blood Count 5.22 K/uL Red Blood Count 3.93 M/uL Hemoglobin 11.3 g/dL Hematocrit 36.8 % Mean Corpuscular Volume 93.6 fL Mean Corpuscular Hemoglobin 28.8 pg Mean Corpuscular Hemoglobin Concent 30.7 g/dl Platelet Count 223 K/uL Mean Platelet Volume 10.5 fL Neutrophils (%) (Auto) 83.1 % Lymphocytes (%) (Auto) 11.1 % Monocytes (%) (Auto) 4.4 % Eosinophils (%) (Auto) 0.2 % Basophils (%) (Auto) 0.2 % Neutrophils # (Auto) 4.34 K/uL Lymphocytes # (Auto) 0.58 K/uL Monocytes # (Auto) 0.23 K/uL Eosinophils # (Auto) 0.01 K/uL Basophils # (Auto) 0.01 K/uL RDW Standard Deviation 57.7 fL RDW Coefficient of Variation 16.6 % Immature Granulocyte % (Auto) 1.0 % Immature Granulocyte # (Auto) 0.05 K/uL Nucleated RBC Absolute Count (auto) 0.04 K/uL Nucleated Red Blood Cells % 0.8 % Sodium Level 144 mmol/L Potassium Level 3.3 mmol/L Chloride Level 101 mmol/L Carbon Dioxide Level 33 mmol/L Anion Gap 10.0 mmol/L Blood Urea Nitrogen 31 mg/dl Creatinine 1.60 mg/dl Est Creatinine Clear Calc Drug Dose 41.7 ml/min Estimated GFR () 44.6 Estimated GFR (Non- 38.4 BUN/Creatinine Ratio 19.2 Random Glucose 160 mg/dl Calcium Level 8.7 mg/dl Magnesium Level 2.7 mg/dl Test 07/18/16 08:26 07/18/16 11:35 Bedside Glucose 222 mg/dl 270 mg/dl Assessment and Plan This is a 86-year-old male w/ a h/o DMII, adrenal insufficiency, obesity, CAD s/ p stent placement, HTN, dyslipidemia, PAF, CHF, PVD, CKD stage III, chronic anemia, COPD/emphysema, aspiration PNA, GERD, BPH with urinary retention, chronic constipation, h/o CVA/TIA, presents with weakness, likely combination of acute influenza type A and pneumonia as was recently in the hospital for SOB and abd pain (in [place], not tested for flu then? CHF?) Probably hospital acquired pneumonia. Generalized weakness, malaise, coughing due to influenza and pneumonia. Influenza A/Pneumonia likely hospital acquired/Dehydration/Severe COPD/Acute on chronic hypoxemic respiratory failure: Much improved -given IV vancomycin and Zosyn for HCAP but sputum cx growing rare GNR/Normal ale and MRSA swab nasal PCR negative so Vanco stopped especially in light of poor renal function BCx 07/18 bottles +GPC, spoke to Micro lab today and is looking like a micrococcus most likely contaminant-ID and Sens still pending Repeat BCx from 07/16 NGTD Repeat CXR 07/17 improved PNA -continue Tamiflu x 5 day course (last dose AM of 07/19/16) -continue Zosyn x 7 days but can transition to Levaquin upon discharge tomorrow -supportive care -supplemental O2 -nebs -IV HC for stress dosed steroids--> BPs fine, returned to po dosing HC -continue prednisone burst and taper down to 40mg daily today Diabetes mellitus II-glucose rising due to prednisone-slightly improved today -accuchecks, SSI and add carb coverage -increased Lantus to 45 units daily -should get better with lower dose of prednisone tomorrow Adrenal insufficiency-on stress dosed HC IV here x 2 days and then convert back to po HC 40mg bid -continue Florinef Chronic kidney disease stage III-pattern illustrator baseline 1.5-2.0, 1.7 on admission, now 1.4 -> 1.6, stable -avoid nephrotoxins -renally dose meds -follow labs BPH w/ urinary retention- with Gomez placed at [facility] after found 1000 mL retained urine and failed voiding trial prior to discharge on 07/14 -on Avodart at home, not formulary here--> start finasteride in place -start Flomax and watch for orthostasis -Urology saw and recommends keeping Gomez in 7-10 days and f/u in the office for voiding trial HTN/CAD/acute on chronic diastolic CHF/PAF -BPs low on admission. In NSR here. Presumably not on AC for fall risk and h/o GI bleeding -continue atenolol at lower dose, ASA, Plavix, torsemide, statin -gave lasix 40mg IV x 1 on 07/17 for fluid overload -follow I/Os, daily weights, renal function Constipation, chronic pain-improved, on chronic pain meds, -continue oxycodone, gabapentin, bowel regimen Stage II right buttocks decubitus ulcer POA- no signs of infection, observe and offload Proph-heparin SQ, PPI CODE STATUS: DNR/DNI Dispo: to [facility] hopefully tomorrow PT/OT eval today
[2016-07-18] MEDS: TAMSULOSIN HCL 0.4 MG CAP PO SCH (22:03)
[2016-07-18] MEDS: FAMOTIDINE 20 MG TAB PO SCH (22:04)
[2016-07-18] MEDS: ATORVASTATIN 20 MG TAB PO SCH (22:06)
[2016-07-18] MEDS: INSULIN GLARGINE SOLOSTAR 100 UNITS/ML 3 ML PEN SC SCH (22:15)
[2016-07-19] VITALS (8 sets, daily range): BP systolic 130–131; BP diastolic 79–81; PULSE 65–102; TEMP 36.4–37; O2SAT 97–100
[2016-07-19] MEDS: ALBUT/IPRATROP 3MG/0.5MG NEB 3 ML VIAL INH SCH ×5 (01:00→19:28)
[2016-07-19] MEDS: PIPERACILL/TAZOBAC IV 3.375 GM in DEXTROSE 5% 100ML 100 ML IV SCH ×3 (05:55→21:54)
[2016-07-19] MEDS: HEPARIN SOD 5000 UNIT/0.5 ML CARP SQ SCH ×3 (05:58→21:54)
[2016-07-19] MEDS: AVODART: ORDER AWAITING ACTION SCH ×3 (08:00→23:43)
[2016-07-19 08:01] LABS: BASO % 0.2 %; BASO ABS # 0.01 K/uL (0-0.2); COMPLETE YES; EOS % 0.5 %; HEMATOCRIT 41.8 % (42-52); LYMPH % 11.7 %; LYMPH ABS # 0.72 K/uL (1.2-3.4); MEAN CELL VOLUME 94.6 fL (80-100); MEAN CORPUSCULAR HEMOGLOBIN 28.5 pg (25-34); MEAN CORPUSCULAR HGB CONC 30.1 g/dl (32-36); MEAN PLATELET VOLUME 10.4 fL (7.4-10.4); NEUT % 78.6 %; PLATELET COUNT 236 K/uL (130-400); RED BLOOD COUNT 4.42 M/uL (4.7-6.1); WHITE BLOOD COUNT 6.15 K/uL (4.8-10.8)
[2016-07-19] MEDS: ARTIFICIAL TEARS OP SOLN OPB SCH ×4 (08:09→21:38)
[2016-07-19] MEDS: DOCUSATE SODIUM 100 MG CAP PO SCH ×2 (08:09→21:00)
[2016-07-19] MEDS: HYDROCORTISONE 10 MG TAB PO SCH ×2 (08:10→21:40)
[2016-07-19] MEDS: ASPIRIN 81 MG ECTAB PO SCH (08:10)
[2016-07-19] MEDS: TORSEMIDE 20 MG TAB PO SCH (08:10)
[2016-07-19] MEDS: FLUDROCORTISONE ACETATE 0.1 MG TAB PO SCH (08:11)
[2016-07-19] MEDS: POLYETHYLENE (MIRALAX) 17 GM PACK PO SCH ×2 (08:11→21:00)
[2016-07-19] MEDS: POTASSIUM CHLORIDE 20 MEQ TABCR PO SCH ×2 (08:11→21:41)
[2016-07-19] MEDS: CALCIUM POLYCARBOPHIL 1 TAB PO SCH (08:11)
[2016-07-19] MEDS: MAGNESIUM OXIDE 400 MG TAB PO SCH ×2 (08:11→21:42)
[2016-07-19] MEDS: GUAIFENESIN 600 MG TABCR PO SCH ×2 (08:12→21:43)
[2016-07-19] MEDS: FINASTERIDE 5 MG TAB PO SCH (08:12)
[2016-07-19] MEDS: GABAPENTIN 600 MG TAB PO SCH ×2 (08:12→21:44)
[2016-07-19] MEDS: OXYCODONE HCL 15 MG TABCR (OXYCONTIN) PO SCH ×2 (08:12→21:36)
[2016-07-19] MEDS: CLOPIDOGREL BISULFATE 75 MG TAB PO SCH (08:12)
[2016-07-19] MEDS: CEROVITE ADV FORMULA TAB PO SCH (08:12)
[2016-07-19] MEDS: OSELTAMIVIR PHOSPHATE SUSP 30 MG/5 ML UDP PO SCH (08:13)
[2016-07-19] MEDS: LIDODERM (LIDOCAINE) PATCH 5% TD SCH (08:13)
[2016-07-19] MEDS: INSULIN ASPART 100 UNITS/ML 3 ML PEN SC SCH ×4 (08:23→21:53)
[2016-07-19 08:31] LABS: BUN/CREATININE RATIO 16.3 (10-20); CALCIUM 8.8 mg/dl (8.5-10.1); CREATININE 1.7 mg/dl (0.60-1.40); MAGNESIUM 2.8 mg/dl (1.8-2.4); POTASSIUM 3.4 mmol/L (3.5-5.1)
[2016-07-19] MEDS: PANTOprazole SOD 40 MG TAB PO SCH (11:45)
[2016-07-19] MEDS: BISACODYL 5 MG TABEC PO SCH ×2 (11:45→21:00)
--- NOTE | 2016-07-19 11:46 | PULMONARY CONSULTATION ---
DATE OF CONSULTATION: 07/19/2016 TIME: 10:15 a.m. HISTORY OF PRESENT ILLNESS: The patient was seen in room 252, bed 1. He is a pleasant 86-year-old male with a longstanding history of severe COPD. The patient states he became ill shortly before [place]. He was hospitalized at [facility] from July 07 until July 14. He states that he was told that he had pneumonia and the flu at that time. He was discharged back to [facility], where he resides. He was only at home for a few hours and he decided that he was still much too short of breath to tolerate it there. He then came to [facility], where he was admitted. While he was in an [place], in addition to having breathing troubles, he had nausea and vomiting and apparently he had urinary infection. He was in urinary retention and a catheter was inserted. The catheter remains in place. He has a known history of BPH. The patient is somewhat improved, but he still feels short of breath. He states he is weak. He told me he was only out of bed yesterday for a relatively short time, although the notes indicate that he may have been up for 2 hours. He is winded with any exertion at all he tells me. His cough has improved. When he was in [place], the cough is much worse and he was expectorating discolored mucus. His cough is better, but his shortness of breath is not definitively better. The patient as noted has a long history of COPD. In 2014, he had approximately 6 hospitalizations regarding to breathing issues and this all started in the winter. In 2016, he did quite well and did not require any hospital stays for respiratory illnesses. He is not having any chest pain. He states his appetite is okay. His energy level remains poor. He denies having chills, fevers or sweats. Review of his hospital records shows that he has had no fevers since admission. The patient states that at home, he does use nebulizer treatments and he takes Spiriva and Advair 500/50 one puff b.i.d. I was able to find copies of pulmonary function testing done on 08/24/2013. That showed severe airflow obstruction with an FEV1/FVC ratio of 39%. However, he was able to improve significantly following bronchodilators, suggesting partially reversible obstructive airways disease. The patient also has a significant cardiac history. He follows up with Dr. Hernandez. He had atrial fib and he has coronary artery disease. He has had stents placed. PAST SURGICAL HISTORY: Cataract surgery and the cardiac catheterization are the only surgeries. PAST MEDICAL HISTORY: 1. Diabetes. 2. BPH. 3. Urinary tract infection. 4. Chronic kidney disease. 5. Adrenal insufficiency. 6. Atrial fibrillation. 7. Diverticular disease. 8. Anemia. 9. Peripheral vascular disease. 10. Hyperparathyroidism. 11. TIA. SOCIAL HISTORY: Tobacco 1 pack per day for about 55 years and he quit smoking in 2004. OCCUPATIONAL HISTORY: The patient is retired. 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 He did not have any exposure to dust, fumes or chemicals. ALLERGIES: No known allergies. FAMILY HISTORY: There are listed family histories of hypertension, diabetes and coronary artery disease. REVIEW OF SYSTEMS: GENERAL: The patient's energy level is low. NEUROLOGIC: No syncope or near syncope. OPHTHALMIC: No visual complaints. ENT: Denies nasal congestion or coryza. CARDIAC: No chest pain or palpitations. PULMONARY: As noted above. GASTROINTESTINAL: The patient denies having any nausea or vomiting at present. He admits that his abdomen is very distended. He denies bowel problems. GENITOURINARY: The patient has a Ball catheter in place because he was unable to void. DERMATOLOGIC: No rash. ENDOCRINE: No lymphadenopathy. PHYSICAL EXAMINATION: GENERAL: The patient is a pleasant 86-year-old male. He was sleeping when I first came in, but he awakened readily. He was cooperative, alert and oriented. VITAL SIGNS: He is afebrile. HEENT: Pupils were reactive. Implants were present. Nares were clear. Mouth exam showed an absence of teeth. NECK: Palpation of the neck reveals no lymph nodes. His neck is larger than normal. The patient had difficulty sitting forward for me. HEART: Rate is 65 per minute. Blood pressure 131/81. LUNGS: Lung rangel revealed [id number] wheeze, bilaterally on expiration. There was marked prolongation to the expiratory phase of respiration. Saturations were 100% on 2 liter nasal cannula. ABDOMEN: Distended. There was tympany on percussion. Bowel sounds were present, but were diminished. No masses were palpable. EXTREMITIES: Shows no cyanosis or clubbing. No significant edema was present. LABORATORY DATA: CBC shows a white count of 6.15, hemoglobin 12.6 and platelets are 236,000. Urinalysis shows +2 blood and 5-10 RBCs. Bacteria was negative. Blood gas done at the time of admission showed a pH of 7.56 with a pCO2 of 36 and pO2 of 56 done on room air. Electrolytes show sodium 144, potassium 3.4, chloride 99, and bicarbonate 36. BUN was 28 with a creatinine of 1.7. The prior BUN had been 31 and the prior creatinine had been 1.6. The patient had a blood culture, which was positive on only one specimen. It was growing micrococcus species, which is likely contaminant. Nasal swab was negative for MRSA. Sputum Gram stain showed normal ale. Chest x-ray on admission showed evidence of bilateral lower lung field interstitial infiltrates. I suspect this is related to pneumonia, which is probably viral related to influenza. Repeat x-ray done on July 17 showed significant improvement with the right side being almost clear and the left side being minimal. The patient states that they did tell him in [facility] that he had pneumonia at that time as well. CAT scan of the abdomen showed gastric distention, cholelithiasis, diverticulosis, and fecal retention. Inguinal hernias were noted. IMPRESSION: 1. Bilateral pneumonia -- improved -- likely secondary to #2. 2. Influenza A. 3. Chronic obstructive pulmonary disease with exacerbation secondary to #1 and #2. 4. Renal insufficiency. RECOMMENDATIONS: The patient is not feeling as good today. This could be because his prednisone was decreased. He remains moderately wheezy. I would be reluctant to send him back home today. I suspect he might return as he had done previously. The patient is still on Zosyn. He is on neb treatments with DuoNebs. I do not believe the patient should be put back on Spiriva as it may be contributing to his urinary retention. He will have a better chance of getting off the catheter if the Spiriva is stopped. It does not appear that he is receiving Spiriva here in the hospital. The patient himself was of uncertain if his nebulizer at home was just albuterol or not. In light of the fact that the Spiriva will be discontinued, I would suggest that he had DuoNebs rather than plain albuterol in his nebulizer unless he has it already, but is unaware of that. Thank you very much for asking me to assist in his care. COREY
--- NOTE | 2016-07-19 12:48 | Hospitalist Progress Note ---
Hospitalist Progress Note Date of Service Jul 19, 2016. Subjective Pt evaluation today including: conversation w/ patient, physical exam, chart review, lab review, review of studies, conversation w/ business solutions consultant (Pulm), review of inpatient medication list PO Intake: christi well Voiding: gomez catheter in place Pt feels a little more SOB today than yesterday, prednisone was decreased todya. Seen by Pulm. Moving bowels, no abd pain Constitutional: No fever Respiratory: + shortness of breath Cardiovascular: No chest pain Abdomen: No constipation, No pain All Other Systems: Reviewed and Negative Objective Vital Signs Date Time Temp Pulse Resp B/P Pulse Ox O2 Delivery O2 Flow Rate FiO2 07/19/16 11:57 65 18 98 Nasal Cannula 4.0 07/19/16 10:06 Nasal Cannula 4.0 07/19/16 07:37 36.5 65 20 131/81 100 Nasal Cannula 2.0 07/19/16 07:09 65 18 98 Nasal Cannula 4.0 07/19/16 01:00 65 18 97 Nasal Cannula 4.0 07/19/16 00:42 36.4 75 20 131/80 99 Nasal Cannula 4.0 07/19/16 00:00 Nasal Cannula 4.0 07/18/16 19:32 65 18 97 Nasal Cannula 4.0 07/18/16 16:15 65 18 97 Nasal Cannula 4.0 07/18/16 16:00 Room Air 07/18/16 15:15 36.5 102 22 157/89 97 Nasal Cannula 4.0 Physical Exam General Appearance: no apparent distress, + obese Eyes: normal inspection, sclerae normal ENT: hearing grossly normal Neck: trachea midline Respiratory/Chest: no accessory muscle use, + decreased breath sounds ( throughout with prolonged exp phase), + crackles (at right base), + wheezing ( diffuse exp wheezes), + pertinent finding (NC in place) Cardiovascular: regular rate, rhythm, no gallop, no murmur, + pertinent finding (1+ pitting edema legs bilat) Abdomen: normal bowel sounds, non tender, soft (but protuberant) Extremities: non-tender, no calf tenderness 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: alert, oriented x 3 Skin: normal color, warm/dry, no rash, + pertinent finding (multiple scabs on backs of hands) Laboratory Results Last 24 Hours Test 07/18/16 16:00 07/18/16 20:35 07/19/16 07:44 07/19/16 08:06 Bedside Glucose 234 mg/dl 259 mg/dl 193 mg/dl White Blood Count 6.15 K/uL Red Blood Count 4.42 M/uL Hemoglobin 12.6 g/dL Hematocrit 41.8 % Mean Corpuscular Volume 94.6 fL Mean Corpuscular Hemoglobin 28.5 pg Mean Corpuscular Hemoglobin Concent 30.1 g/dl Platelet Count 236 K/uL Mean Platelet Volume 10.4 fL Neutrophils (%) (Auto) 78.6 % Lymphocytes (%) (Auto) 11.7 % Monocytes (%) (Auto) 7.0 % Eosinophils (%) (Auto) 0.5 % Basophils (%) (Auto) 0.2 % Neutrophils # (Auto) 4.84 K/uL Lymphocytes # (Auto) 0.72 K/uL Monocytes # (Auto) 0.43 K/uL Eosinophils # (Auto) 0.03 K/uL Basophils # (Auto) 0.01 K/uL RDW Standard Deviation 57.6 fL RDW Coefficient of Variation 16.6 % Immature Granulocyte % (Auto) 2.0 % Immature Granulocyte # (Auto) 0.12 K/uL Nucleated RBC Absolute Count (auto) 0.08 K/uL Nucleated Red Blood Cells % 1.3 % Sodium Level 144 mmol/L Potassium Level 3.4 mmol/L Chloride Level 99 mmol/L Carbon Dioxide Level 36 mmol/L Anion Gap 9.0 mmol/L Blood Urea Nitrogen 28 mg/dl Creatinine 1.70 mg/dl Est Creatinine Clear Calc Drug Dose 39.3 ml/min Estimated GFR () 41.4 Estimated GFR (Non- 35.7 BUN/Creatinine Ratio 16.3 Random Glucose 156 mg/dl Calcium Level 8.8 mg/dl Magnesium Level 2.8 mg/dl Test 07/19/16 11:23 Bedside Glucose 167 mg/dl Assessment and Plan This is a 86-year-old male w/ a h/o DMII, adrenal insufficiency, obesity, CAD s/ p stent placement, HTN, dyslipidemia, PAF, CHF, PVD, CKD stage III, chronic anemia, COPD/emphysema, aspiration PNA, GERD, BPH with urinary retention, chronic constipation, h/o CVA/TIA, presents with weakness, likely combination of acute influenza type A and pneumonia as was recently in the hospital for SOB and abd pain (in [place], not tested for flu then? CHF?) Probably hospital acquired pneumonia. Generalized weakness, malaise, coughing due to influenza and pneumonia. Influenza A/Pneumonia likely hospital acquired/Dehydration/Severe COPD with exacerbation/Acute on chronic hypoxemic respiratory failure: improved but slightly worse today after prednisone dose decreased to 40mg -given IV vancomycin and Zosyn for HCAP but sputum cx growing rare GNR/Normal ale and MRSA swab nasal PCR negative so Vanco stopped especially in light of poor renal function BCx 07/18 bottles +micrococcus most likely contaminant Repeat BCx from 07/16 NGTD Repeat CXR 07/17 improved PNA -continue Tamiflu x 5 day course (last dose AM of 07/19/16) -continue Zosyn x 7 days but can transition to Levaquin upon discharge -supportive care -supplemental O2 -nebs -IV HC for stress dosed steroids--> BPs fine, returned to po dosing HC -continue prednisone burst and increase back up to 60mg today -Appreciate Pulm recommendations to remain off Spiriva for urinary retention Diabetes mellitus II-glucose rising due to prednisone- improved today -accuchecks, SSI and add carb coverage -increased Lantus to 45 units daily Adrenal insufficiency-on stress dosed HC IV here x 2 days and then convert back to po HC 40mg bid -continue Florinef Chronic kidney disease stage III, 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 In NSR here. Presumably not on AC for fall risk and h/o GI bleeding -continue atenolol at lower dose, ASA, Plavix, torsemide, statin -gave lasix 40mg IV x 1 on 07/17 for fluid overload -follow I/Os, daily weights, renal function Constipation, chronic pain-improved, on chronic pain meds, -continue oxycodone, gabapentin, bowel regimen Stage II right buttocks decubitus ulcer POA- no signs of infection, observe and offload Proph-heparin SQ, PPI CODE STATUS: DNR/DNI Dispo: to [facility] hopefully tomorrow PT/OT paige recommends skilled PT due to being decreased from his baseline ability to transfer from bed to chair to motorized scooter using rolling walker
[2016-07-19] MEDS: ONDANSETRON INJ 2 MG/ML 2 ML VIAL IV PRN (18:22)
[2016-07-19] MEDS: TAMSULOSIN HCL 0.4 MG CAP PO SCH (21:40)
[2016-07-19] MEDS: FAMOTIDINE 20 MG TAB PO SCH (21:47)
[2016-07-19] MEDS: ATORVASTATIN 20 MG TAB PO SCH (21:47)
[2016-07-19] MEDS: INSULIN GLARGINE SOLOSTAR 100 UNITS/ML 3 ML PEN SC SCH (21:53)
[2016-07-20] VITALS (10 sets, daily range): BP systolic 112–138; BP diastolic 67–91; PULSE 60–92; TEMP 36.3–36.9; O2SAT 92–98
[2016-07-20] MEDS: ALBUT/IPRATROP 3MG/0.5MG NEB 3 ML VIAL INH SCH ×6 (00:03→20:26)
[2016-07-20] MEDS: HEPARIN SOD 5000 UNIT/0.5 ML CARP SQ SCH ×3 (05:31→22:09)
[2016-07-20] MEDS: PIPERACILL/TAZOBAC IV 3.375 GM in DEXTROSE 5% 100ML 100 ML IV SCH ×3 (05:33→21:53)
[2016-07-20] MEDS: AVODART: ORDER AWAITING ACTION SCH ×3 (08:00→23:50)
[2016-07-20 08:30] LABS: BUN/CREATININE RATIO 14.9 (10-20); CALCIUM 8.7 mg/dl (8.5-10.1); CREATININE 1.8 mg/dl (0.60-1.40); MAGNESIUM 2.8 mg/dl (1.8-2.4); POTASSIUM 3.6 mmol/L (3.5-5.1)
[2016-07-20] MEDS: CLOPIDOGREL BISULFATE 75 MG TAB PO SCH (08:45)
[2016-07-20] MEDS: GUAIFENESIN 600 MG TABCR PO SCH ×2 (08:45→21:51)
[2016-07-20] MEDS: CEROVITE ADV FORMULA TAB PO SCH (08:45)
[2016-07-20] MEDS: CALCIUM POLYCARBOPHIL 1 TAB PO SCH (08:45)
[2016-07-20] MEDS: FINASTERIDE 5 MG TAB PO SCH (08:45)
[2016-07-20] MEDS: OXYCODONE HCL 15 MG TABCR (OXYCONTIN) PO SCH ×2 (08:45→21:52)
[2016-07-20] MEDS: POTASSIUM CHLORIDE 20 MEQ TABCR PO SCH ×2 (08:45→21:49)
[2016-07-20] MEDS: FLUDROCORTISONE ACETATE 0.1 MG TAB PO SCH (08:47)
[2016-07-20] MEDS: ASPIRIN 81 MG ECTAB PO SCH (08:47)
[2016-07-20] MEDS: GABAPENTIN 600 MG TAB PO SCH ×2 (08:47→21:53)
[2016-07-20] MEDS: LIDODERM (LIDOCAINE) PATCH 5% TD SCH (08:47)
[2016-07-20] MEDS: MAGNESIUM OXIDE 400 MG TAB PO SCH ×2 (08:47→21:50)
[2016-07-20] MEDS: TORSEMIDE 20 MG TAB PO SCH (08:48)
[2016-07-20] MEDS: HYDROCORTISONE 10 MG TAB PO SCH ×2 (08:48→21:45)
[2016-07-20] MEDS: DOCUSATE SODIUM 100 MG CAP PO SCH ×2 (08:48→21:45)
[2016-07-20] MEDS: PANTOprazole SOD 40 MG TAB PO SCH (08:49)
[2016-07-20] MEDS: POLYETHYLENE (MIRALAX) 17 GM PACK PO SCH ×2 (08:49→21:50)
[2016-07-20] MEDS: INSULIN ASPART 100 UNITS/ML 3 ML PEN SC SCH ×4 (08:53→22:08)
[2016-07-20] MEDS: ARTIFICIAL TEARS OP SOLN OPB SCH ×4 (09:00→21:44)
[2016-07-20] MEDS: BISACODYL 5 MG TABEC PO SCH ×2 (09:01→21:59)
[2016-07-20] MEDS ORDERED: LEVALBUTEROL 0.63MG/3 ML NEB INH PRN (10:45)
--- NOTE | 2016-07-20 11:00 | PULMONARY PROGRESS NOTE ---
DATE: 07/20/2016 TIME: 10:35 a.m. SUBJECTIVE: The patient complains of increasing shortness of breath. He states he feels worse than yesterday. He had been up to the chair this morning but got himself back to bed and has been very short of breath since then. He is not coughing but feels tight in the chest. He complains of a new onset of left anterior chest pain this morning. He states he has had this before. It is nonpleuritic. It is nonradiating. OBJECTIVE: GENERAL: The patient looks a little uncomfortable and he has some noisy respirations. VITAL SIGNS: He is afebrile at 36.3. Heart rate was 73 per minute. The rhythm was somewhat irregular. Blood pressure 138/91. Respiratory rate 22 breaths per minute. Oxygen saturation 95% on 4 liters. LUNGS: Audible wheeze and rhonchi can be heard bilaterally. ABDOMEN: Soft. It seems mildly distended but he said he has had bowel movements. He denied any diarrhea. EXTREMITIES: Reveal trace edema of the lower extremities. LABORATORY DATA: Electrolytes show sodium 143, potassium 3.6, chloride 100, bicarbonate 36. There has been no significant change in the bicarb since admission. The bicarb is elevated, but curiously the blood gas done on 07/14/2016 showed a normal pCO2 of 36. His BUN is 27 with a creatinine of 1.8. IMPRESSION: 1. Bilateral pneumonia. 2. Influenza A. 3. Chronic obstructive pulmonary disease with exacerbation. 4. Renal insufficiency. PLAN: The patient seems more short of breath. I am going to give him a one-time dose of Solu-Medrol. He is getting prednisone 40 mg and he is also on hydrocortisone 40 b.i.d. He remains on piperacillin/tazobactam. We will recheck an x-ray today in light of his worsening symptoms. He is getting neb treatments q.i.d., we will likely need to order p.r.n. treatments as well. It seems unlikely that we would be able to successfully discharge him today based upon his current status.
--- NOTE | 2016-07-20 11:14 | Hospitalist Progress Note ---
Hospitalist Progress Note Date of Service Jul 20, 2016. Subjective Pt evaluation today including: conversation w/ patient, physical exam, chart review, lab review, review of studies, conversation w/ sap pp consultant (Pulm), review of inpatient medication list PO Intake: christi po Voiding: gomez catheter in place Breathing was better but then after transfer from chair to bed he became significantly SOB. Had neb treatment as I came to see him and still wheezing quite a bit, tachypneic. Christi po and moving bowels, no abd pain. Constitutional: No fever Respiratory: + dyspnea on exertion, + shortness of breath, + wheezing Cardiovascular: No chest pain Abdomen: No constipation, No pain Skin: No rash All Other Systems: Reviewed and Negative Objective Vital Signs Date Time Temp Pulse Resp B/P Pulse Ox O2 Delivery O2 Flow Rate FiO2 07/20/16 10:44 67 24 98 Nasal Cannula 4.0 07/20/16 07:49 36.3 73 20 138/91 98 07/20/16 07:25 60 18 95 Nasal Cannula 4.0 07/20/16 03:35 66 18 96 Nasal Cannula 4.0 07/20/16 00:16 36.4 65 20 118/71 96 Room Air 07/20/16 00:03 68 18 96 Nasal Cannula 4.0 07/20/16 00:00 Nasal Cannula 4.0 07/19/16 19:28 70 18 97 Nasal Cannula 4.0 07/19/16 16:00 Nasal Cannula 4.0 07/19/16 15:27 70 18 97 Nasal Cannula 4.0 07/19/16 15:20 37.0 102 22 130/79 97 Nasal Cannula 4.0 07/19/16 11:57 65 18 98 Nasal Cannula 4.0 Physical Exam General Appearance: + mild distress, + obese Eyes: normal inspection, sclerae normal Respiratory/Chest: + respiratory distress (mild-mod), + accessory muscle use, + wheezing (diffusely, exp) Cardiovascular: regular rate, rhythm, no murmur, + pertinent finding (1-2+ pitting edema legs bilat) Abdomen: normal bowel sounds, non tender, soft (and protuberant) Extremities: non-tender, no calf tenderness 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: alert, normal mood/affect, oriented x 3 Laboratory Results Last 24 Hours Test 07/19/16 11:23 07/19/16 16:11 07/19/16 20:32 07/20/16 07:28 Bedside Glucose 167 mg/dl 265 mg/dl 310 mg/dl 141 mg/dl Test 07/20/16 07:30 Sodium Level 143 mmol/L Potassium Level 3.6 mmol/L Chloride Level 100 mmol/L Carbon Dioxide Level 36 mmol/L Anion Gap 7.0 mmol/L Blood Urea Nitrogen 27 mg/dl Creatinine 1.80 mg/dl Est Creatinine Clear Calc Drug Dose 37.1 ml/min Estimated GFR () 38.6 Estimated GFR (Non- 33.3 BUN/Creatinine Ratio 14.9 Random Glucose 140 mg/dl Calcium Level 8.7 mg/dl Magnesium Level 2.8 mg/dl Assessment and Plan This is a 86-year-old male w/ a h/o DMII, adrenal insufficiency, obesity, CAD s/ p stent placement, HTN, dyslipidemia, PAF, CHF, PVD, CKD stage III, chronic anemia, COPD/emphysema, aspiration PNA, GERD, BPH with urinary retention, chronic constipation, h/o CVA/TIA, presents with weakness, likely combination of acute influenza type A and pneumonia as was recently in the hospital for SOB and abd pain (in [place], not tested for flu then? CHF?) Probably hospital acquired pneumonia. Generalized weakness, malaise, coughing due to influenza and pneumonia. Influenza A/Pneumonia likely hospital acquired/Dehydration/Severe COPD with exacerbation/Acute on chronic hypoxemic respiratory failure: slightly worse today -given IV vancomycin and Zosyn for HCAP but sputum cx growing rare GNR/Normal ale and MRSA swab nasal PCR negative so Vanco stopped especially in light of poor renal function BCx 07/18 bottles +micrococcus most likely contaminant Repeat BCx from 07/16 NGTD Repeat CXR 07/17 improved PNA -completed Tamiflu x 5 day course (last dose AM of 07/19/16) -continue Zosyn x 7 days (today day 6) -supportive care -supplemental O2 -nebs -IV HC for stress dosed steroids--> BPs fine, returned to po dosing HC -continue prednisone burst and Pulm gave extra dose IV SOlu Medrol today -Appreciate Pulm recommendations to remain off Spiriva for urinary retention Diabetes mellitus II-glucose rising due to prednisone- improved but still hyperglycemia -accuchecks, SSI and added carb coverage -increased Lantus to 47 units daily Adrenal insufficiency-on stress dosed HC IV here x 2 days and then convert back to po HC 40mg bid -continue Florinef -continue HC po 40mg bid Chronic kidney disease stage III, 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 In NSR here. Presumably not on AC for fall risk and h/o GI bleeding. Seems to be a little fluid overloaded again and worsening SOB -check CXR -continue atenolol at lower dose, ASA, Plavix, torsemide, statin -gave lasix 40mg IV x 1 on 07/17 for fluid overload and another dose today 07/20 of 20mg IV -follow I/Os, daily weights, renal function Constipation, chronic pain-improved, on chronic pain meds, -continue oxycodone, gabapentin, bowel regimen Stage II right buttocks decubitus ulcer POA- no signs of infection, observe and offload Proph-heparin SQ, PPI CODE STATUS: DNR/DNI Dispo: to [place] hopefully tomorrow if breathing improved PT/OT paige recommends skilled PT due to being decreased from his baseline ability to transfer from bed to chair to motorized scooter using rolling walker however peer to peer review denied skilled coverage
[2016-07-20] MEDS ORDERED: METHYLPREDNISOLONE IV 60 MG in SYRINGE 0 ML IV SCH (11:15)
--- NOTE | 2016-07-20 11:37 | DIAGNOSTIC IMAGING REPORT ---
SINGLE VIEW CHEST CLINICAL HISTORY: Dyspnea. FINDINGS: An AP, portable, upright chest radiograph is compared to study dated 07/17/2016 and correlated with chest CT dated 08/02/2014. The examination is degraded by portable technique and patient rotation. The heart is enlarged and there is atherosclerotic calcification of the thoracic aorta. The pulmonary vascular structures noncongested. Advanced emphysema and chronic interstitial thickening is similar to previous. Scattered calcified granulomas are observed. There are bibasilar airspace opacities. No large pleural effusion or pneumothorax is seen. The skeletal structures are osteopenic. The bony thorax is grossly intact. IMPRESSION: 1. Cardiomegaly and emphysema. 2. There are nonspecific bibasilar airspace opacities. These are similar to the 07/17/2016 examination. Clinical correlation will be required. Electronically signed by: Terry Puente M.D. 07/20/2016 11:35 AM Dictated Date/Time: 07/20/2016 11:32 AM
[2016-07-20] MEDS ORDERED: FUROSEMIDE INJ 20 MG in SYRINGE 0 ML IV ONE (12:00)
[2016-07-20] MEDS: ACETAMINOPHEN 325 MG TAB PO PRN (16:35)
[2016-07-20] MEDS ORDERED: INSULIN GLARGINE SOLOSTAR 100 UNITS/ML 3 ML PEN SC SCH (21:00)
[2016-07-20] MEDS: TAMSULOSIN HCL 0.4 MG CAP PO SCH (21:46)
[2016-07-20] MEDS: ATORVASTATIN 20 MG TAB PO SCH (21:50)
[2016-07-20] MEDS: FAMOTIDINE 20 MG TAB PO SCH (21:52)
[2016-07-21] MEDS: ALBUT/IPRATROP 3MG/0.5MG NEB 3 ML VIAL INH SCH ×4 (02:44→11:36)
[2016-07-21 02:45] VITALS: PULSE 70; O2SAT 93
[2016-07-21] MEDS: HEPARIN SOD 5000 UNIT/0.5 ML CARP SQ SCH (05:36)
[2016-07-21 05:37] VITALS: PULSE 78; O2SAT 90
[2016-07-21] MEDS: PIPERACILL/TAZOBAC IV 3.375 GM in DEXTROSE 5% 100ML 100 ML IV SCH (05:41)
[2016-07-21 07:03] VITALS: BP 110/74; PULSE 76; TEMP 36.4; O2SAT 99
[2016-07-21 07:09] VITALS: PULSE 56; O2SAT 96
[2016-07-21 07:17] LABS: BASO % 0.1 %; BASO ABS # 0.01 K/uL (0-0.2); COMPLETE YES; EOS % 0.3 %; HEMATOCRIT 40.5 % (42-52); IG% 1.5 %; LYMPH % 8.3 %; LYMPH ABS # 0.56 K/uL (1.2-3.4); MEAN CORPUSCULAR HEMOGLOBIN 29.1 pg (25-34); MEAN CORPUSCULAR HGB CONC 30.4 g/dl (32-36); MEAN PLATELET VOLUME 10.8 fL (7.4-10.4); MONO % 5.7 %; NEUT % 84.1 %; PLATELET COUNT 237 K/uL (130-400); RED BLOOD COUNT 4.22 M/uL (4.7-6.1); WHITE BLOOD COUNT 6.72 K/uL (4.8-10.8)
[2016-07-21 07:42] LABS: BUN/CREATININE RATIO 16.4 (10-20); CALCIUM 9.1 mg/dl (8.5-10.1); CREATININE 1.7 mg/dl (0.60-1.40); POTASSIUM 3.6 mmol/L (3.5-5.1)
[2016-07-21] MEDS: AVODART: ORDER AWAITING ACTION SCH (07:52)
[2016-07-21] MEDS ORDERED: TNR25 PO (08:49)
[2016-07-21] MEDS ORDERED: IPRASOL4 INH (08:49)
[2016-07-21] MEDS ORDERED: FLNIN (08:49)
[2016-07-21] MEDS ORDERED: LEVO1TAB33 PO (08:49)
[2016-07-21] MEDS ORDERED: NYSS5 PO (08:49)
[2016-07-21] MEDS ORDERED: LDDP5 TD (08:49)
[2016-07-21] MEDS ORDERED: PRD20 PO (08:49)
[2016-07-21] MEDS ORDERED: GFNSR600 PO (08:49)
[2016-07-21] MEDS ORDERED: ATV/1 PO (08:49)
[2016-07-21] MEDS ORDERED: XPNINS INH (08:49)
[2016-07-21] MEDS ORDERED: FLM4 PO (08:49)
[2016-07-21] MEDS ORDERED: ADVIN25050 INH (08:49)
[2016-07-21] MEDS ORDERED: OXYC15TA89 PO (08:49)
[2016-07-21] MEDS ORDERED: NVLGIPEN SC (08:49)
[2016-07-21] MEDS ORDERED: INSDGIPEN SC (08:49)
[2016-07-21] MEDS ORDERED: FLUTICASONE PROPIONATE NA SPR 16 GM BTL SCH (09:00)
[2016-07-21] MEDS ORDERED: NYSTATIN SUSP 500,000 U/5 ML UDC PO SCH (09:00)
[2016-07-21] MEDS ORDERED: TORSEMIDE 20 MG TAB PO SCH (09:00)
--- NOTE | 2016-07-21 09:08 | Discharge Instructions ---
Discharge Instructions Admission Reason for Admission: Influenza A, Pneumonia Discharge Discharge Diagnosis / Problem: Influenza A, Pneumonia Discharge Goals Goal(s): Improve disease control, Therapeutic intervention Activity Recommendations Activity Level: Assistance Required (with transfers ) Therapies: Physical Therapy, Occupational Therapy . Additional Information Patient informed of condition: Yes Advance Directives: Yes DNR: Yes Level of Care: Skilled Communicable Disease: No (had Influenza A but no longer communicable as per standards) Prognosis: Stable Oxygen at (LPM): 2-4LNC Ball Catheter: Yes (for urinary retention, needs Urological follow up within 1 week) Instructions / Follow-Up Instructions / Follow-Up This is a 86-year-old male w/ a h/o DMII, adrenal insufficiency, obesity, CAD s/ p stent placement, HTN, dyslipidemia, PAF, CHF, PVD, CKD stage III, chronic anemia, COPD/emphysema, aspiration PNA, GERD, BPH with urinary retention, chronic constipation, h/o CVA/TIA, presents with weakness and SOB, likely combination of acute influenza type A and pneumonia as was recently in the hospital for SOB and abd pain (in [place], not tested for flu then? CHF?) Probably hospital acquired pneumonia. Generalized weakness, malaise, coughing due to influenza and pneumonia. Influenza A/Pneumonia likely hospital acquired vs Post-influenza/Dehydration/ Severe COPD with exacerbation/Acute on chronic hypoxemic respiratory failure: improved -given IV vancomycin and Zosyn for HCAP but sputum cx growing rare GNR/Normal ale and MRSA swab nasal PCR negative so Vanco stopped especially in light of poor renal function BCx 07/18 bottles +micrococcus most likely contaminant Repeat BCx from 07/16 still with NGTD Repeat CXR 07/17 improved PNA Repeat CXR 07/20 stable with residual bibasilar infiltrates -completed Tamiflu x 5 day course (last dose AM of 07/19/16) -received Zosyn x 7 days--> complete 3 more days of po Levaquin as outpatient -supportive care -supplemental O2 2-4 LNC -nebs qid and q3 prn -IV HC for stress dosed steroids given on admission--> BPs fine, returned to po dosing HC 40mg bid -received IV Solu Medrol and then transitioned to prednisone burst --> will give long slow taper and keep at 20mg daily until seen again by Pulm in the office within 1 week -Appreciate Pulm recommendations to remain off Spiriva for urinary retention -restart Advair upon discharge -start Flonase for nasal congestion causing worsening respiratory symptoms while eating Diabetes mellitus II-glucose rising due to prednisone- improved with increased Lantus dose -accuchecks, SSI and added carb coverage -increased Lantus to 47 units daily but glucose 88 AM of discharge--> decrease to lantus 45 units qPM for discharge -stop 70/30 Adrenal insufficiency-Stable: was on stress dosed HC IV here x 2 days and then convert back to po HC 40mg bid -continue Florinef -continue HC po 40mg bid Chronic kidney disease stage III, 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, 1.7 on admission, now 1.4-> 1.8-> 1.7, fairly stable -avoid nephrotoxins -renally dose meds -follow labs -replace K+ 40mg bid BPH w/ urinary retention- with Ball placed at [facility] after found 1000 mL retained urine and failed voiding trial prior to discharge on 07/14 -on Avodart at home, not formulary here--> remained on finasteride here and switch back to Avodart upon d/c -started Flomax and no orthostasis was observed -Urology saw and recommends keeping Ball in 7-10 days and f/u in the office for voiding trial--> NEEDS UROLOGY F/U visit within 1 week -avoid Spiriva HTN/CAD/acute on chronic diastolic CHF/PAF -BPs low on admission. In NSR here. Presumably not on AC for fall risk and h/o GI bleeding. Was a little fluid overloaded intermittently with worsening SOB which greatly improved with IV lasix -continue atenolol at lower dose, ASA, Plavix, torsemide, statin -gave lasix 40mg IV x 1 on 07/17 for fluid overload and another dose today 07/20 of 20mg IV with large volume diuresis -follow I/Os, daily weights, renal function -continue torsemide 100mg daily with 150mg MWF Constipation, chronic pain-improved, on chronic pain meds, -continue oxycodone, gabapentin, bowel regimen Stage II right buttocks decubitus ulcer POA- no signs of infection, observe and offload Proph-heparin SQ, PPI CODE STATUS: DNR/DNI [facility] paige recommends skilled PT due to being decreased from his baseline ability to transfer from bed to chair to motorized scooter using rolling walker Current Hospital Diet Patient's current hospital diet: Diabetes Type 2 Diet Discharge Diet Recommended Diet: Low Sodium Diet (2gm Na), Diabetes Type 2 Diet Fluid Restriction: 1800 ml (7 cups) Procedures Procedures Performed: Chest xrays CT Abd/pelvis Pending Studies Studies pending at discharge: yes List of pending studies: Final Blood culture results from 07/16/16 (no growth x 5 days) Physician Orders On Transfer Special Precautions: Fall risk Dressing Changes: None IV Therapy: None Vital Signs: Routine Weigh: Daily Additional Orders: Wound care for Stage II right buttocks ulcer Ball catheter care Follow up with PCP within 1-2 days Follow up with Pulmonology Dr. Whiteside within 1 week Follow up with Urology Dr. Miller within 1 week Laboratory Results Last 24 Hours Test 07/20/16 11:35 07/20/16 16:26 07/20/16 20:21 07/21/16 07:02 Bedside Glucose 195 mg/dl 243 mg/dl 281 mg/dl White Blood Count 6.72 K/uL Red Blood Count 4.22 M/uL Hemoglobin 12.3 g/dL Hematocrit 40.5 % Mean Corpuscular Volume 96.0 fL Mean Corpuscular Hemoglobin 29.1 pg Mean Corpuscular Hemoglobin Concent 30.4 g/dl Platelet Count 237 K/uL Mean Platelet Volume 10.8 fL Neutrophils (%) (Auto) 84.1 % Lymphocytes (%) (Auto) 8.3 % Monocytes (%) (Auto) 5.7 % Eosinophils (%) (Auto) 0.3 % Basophils (%) (Auto) 0.1 % Neutrophils # (Auto) 5.65 K/uL Lymphocytes # (Auto) 0.56 K/uL Monocytes # (Auto) 0.38 K/uL Eosinophils # (Auto) 0.02 K/uL Basophils # (Auto) 0.01 K/uL RDW Standard Deviation 58.9 fL RDW Coefficient of Variation 16.8 % Immature Granulocyte % (Auto) 1.5 % Immature Granulocyte # (Auto) 0.10 K/uL Nucleated RBC Absolute Count (auto) 0.05 K/uL Nucleated Red Blood Cells % 0.7 % Sodium Level 145 mmol/L Potassium Level 3.6 mmol/L Chloride Level 101 mmol/L Carbon Dioxide Level 38 mmol/L Anion Gap 6.0 mmol/L Blood Urea Nitrogen 28 mg/dl Creatinine 1.70 mg/dl Est Creatinine Clear Calc Drug Dose 39.3 ml/min Estimated GFR () 41.4 Estimated GFR (Non- 35.7 BUN/Creatinine Ratio 16.4 Random Glucose 96 mg/dl Calcium Level 9.1 mg/dl Magnesium Level 3.0 mg/dl Test 07/21/16 07:16 Bedside Glucose 88 mg/dl Medical Emergencies . Who to Call and When: Medical Emergencies: If at any time you feel your situation is an emergency, please call 911 immediately. . Non-Emergent Contact Non-Emergency issues call your: Primary Care Provider, Conveyor Tender Call Non-Emergent contact if: temperature is above 101, you have any medication questions If you have worsening SOB or abdominal pain . . "Provider Documentation" section prepared by Siria Hess. Core Measure Problem Core Measures: None [place] Drug Monitoring Program Search Results: patient reviewed within database
--- NOTE | 2016-07-21 09:22 | Discharge Summary ---
Discharge Summary Admission Date: Jul 14, 2016 at 11:37 Discharge Date: Jul 21, 2016 Discharge Disposition: longterm facility Principal Diagnosis: Hospital acquired PNA, Influenza A Problems/Secondary Diagnoses: DMII Adrenal insufficiency Oral candidiasis Obesity CAD s/p stent placement HTN Dyslipidemia PAFib Acute on chronic diastolic CHF PVD CKD stage III Chronic anemia Severe COPD/emphysema Acute on Chronic hypoxemic respiratory failure H/O Aspiration PNA GERD BPH with urinary retention Chronic constipation H/o CVA/TIA Hypokalemia Chronic pain Stage II right buttocks decubitus ulcer POA Cholelithiasis-asymptomatic Bilateral fat-containing inguinal hernias Immunizations: Have You Had Influenza Vaccine: Yes Influenza Vaccine Date: Jun 08, 2013 History of Tetanus Vaccine?: Unknown History of Pneumococcal: Yes History of Hepatitis B Vaccine: Unknown Procedures: CHEST ONE VIEW PORTABLE CLINICAL HISTORY: Fever and sepsis COMPARISON STUDY: 09/16/2015 FINDINGS: The chest has an emphysematous configuration. The heart is normal in size. Since the prior study, the patient developed bilateral interstitial opacities. These could be inflammatory, or secondary to pulmonary vascular congestion. Clinical and radiographic follow-up is recommended.[No pleural effusions are visualized. IMPRESSION: 1. Interval development of bilateral interstitial opacities, inflammatory versus interstitial edema. Clinical and radiographic follow-up is recommended. CT SCAN OF THE ABDOMEN AND PELVIS WITHOUT CONTRAST CLINICAL HISTORY: Fever and sepsis. Possible intra-abdominal source. COMPARISON STUDY: 04/28/2014 TECHNIQUE: CT scan of the abdomen and pelvis was performed from the lung bases to the proximal femurs. Images are reviewed in the axial, sagittal, and coronal planes. IV contrast was not administered for this examination. CT DOSE: 983.99 mGy.cm FINDINGS: Lower chest: There is pulmonary emphysema. There is lower lobe bronchial wall thickening. There are right basilar airspace opacities, atelectatic versus inflammatory. Liver: The unenhanced liver is normal in size, contour, and attenuation. There is no intrahepatic biliary ductal dilatation. Gallbladder: Cholelithiasis Spleen: Normal in size and attenuation. Pancreas: Unremarkable. Adrenal glands: Unremarkable. Kidneys: There is no hydronephrosis. No calculi are visualized. There is an 11 mm left renal hypodensity likely representing a cyst. Bowel: There is gastric distention. The appendix appears normal. There is no evidence of acute diverticulitis. There is fecal retention. Peritoneum: No free air is visualized. There are bilateral fat-containing inguinal hernias. There is no ascites. Vasculature: The abdominal aorta is normal in course and caliber. Adenopathy: None. Pelvic viscera: There is indwelling Ball catheter. Skeletal structures: No destructive osseous lesions are seen. IMPRESSION: 1. Gastric distention 2. Cholelithiasis 3. Diverticulosis. No evidence of acute peridiverticular inflammatory change 4. Normal appendix 5. Fecal retention 6. Emphysema, lower lobe bronchial wall thickening, right basal airspace opacities, atelectatic versus inflammatory 7. Fat-containing inguinal hernias CHEST ONE VIEW PORTABLE CLINICAL HISTORY: Pneumonia COMPARISON STUDY: 07/14/2016 FINDINGS: The heart is borderline enlarged. There are improving bilateral interstitial opacities. There are no significant pleural effusions. IMPRESSION: Emphysema, and slight interval improvement in the bilateral interstitial opacities SINGLE VIEW CHEST CLINICAL HISTORY: Dyspnea. FINDINGS: An AP, portable, upright chest radiograph is compared to study dated 07/17/2016 and correlated with chest CT dated 08/02/2014. The examination is degraded by portable technique and patient rotation. The heart is enlarged and there is atherosclerotic calcification of the thoracic aorta. The pulmonary vascular structures noncongested. Advanced emphysema and chronic interstitial thickening is similar to previous. Scattered calcified granulomas are observed. There are bibasilar airspace opacities. No large pleural effusion or pneumothorax is seen. The skeletal structures are osteopenic. The bony thorax is grossly intact. IMPRESSION: 1. Cardiomegaly and emphysema. 2. There are nonspecific bibasilar airspace opacities. These are similar to the 07/17/2016 examination. Clinical correlation will be required. Consultations: Pulmonology Medication Reconciliation New Medications: Fluticasone Prop/Salmeterol (Advair Diskus 250-50 Mcg/Dose) 14 Puff/1 Inhaler Aerp 1 PUFF INH BID, #1 INHALER Atenolol (Atenolol) 25 Mg Tab 12.5 MG PO DAILY for 30 Days, #15 TAB Fluticasone Propionate (Fluticasone Propionate) 50 Mcg/Act Spr 2 SPRAYS NA DAILY for 30 Days Guaifenesin Ext Rel (Mucinex Ext Rel) 600 Mg Tabcr 1200 MG PO Q12 for 30 Days Insulin Aspart (Novolog Flexpen) 100 Units/Ml Inj 0 UNITS SC ACHS for 30 Days Insulin Glargine (Lantus Solostar) 100 Unit/Ml Inj 45 UNIT SC QPM for 30 Days Ipratropium-Albuterol (Duoneb) 3 Ml Nebu 3 ML INH QIDR for 30 Days Levalbuterol (Levalbuterol HCl) 0.63 Mg/3 Ml Nebu 0.63 MG INH Q3H PRN for sob for 30 Days Lidocaine (Lidocaine) 1 Patch Tdsy 1 PATCH TD QAM for 30 Days to back pain Nystatin (Nystatin) 5 Ml Susp 5 ML PO QID for 14 Days Prednisone (Prednisone) 20 Mg Tab 40 MG PO DAILY for 14 Days, #28 TAB x 3 days then 30mg daily x 3 days then 20mg daily until seen by Pulmonology in 1 week Tamsulosin HCl (Tamsulosin HCl) 0.4 Mg Cap 0.4 MG PO HS for 30 Days, CAP Continued Medications: Acetaminophen (Tylenol) 500 Mg Tab 1000 MG PO AMPM PRN for PA, TAB Aspirin (Aspirin Chewable) 81 Mg Chew 81 MG PO DAILY Atorvastatin (Lipitor) 20 Mg Tab 20 MG PO HS, TAB Bisacodyl (Bisacodyl) 5 Mg Tab 5 MG PO BID Bisacodyl (Bisac-Evac) 10 Mg Sup 10 MG RE UNKNOWN NO BM IN 3 DAYS, GIVE IN AM ON DAY 4 Calcium Polycarbophil (Fiber Laxative) 625 Mg Tab 1 TAB PO DAILY Clopidogrel (Plavix) 75 Mg Tab 75 MG PO DAILY Docusate Sodium (Colace) 100 Mg Cap 100 MG PO BID Dutasteride (Avodart) 0.5 Mg Cap 0.5 MG PO DAILY Famotidine (Pepcid) 20 Mg Tab 20 MG PO HS Fludrocortisone Acetate (Florinef) 0.1 Mg Tab 0.1 MG PO DAILY Gabapentin (Gabapentin) 600 Mg Tab 600 MG PO BID Hydrocortisone (Cortef) 20 Mg Tab 40 MG PO BID Levofloxacin (Levaquin) 500 Mg Tab 500 MG PO DAILY for 3 Days, #3 TAB (This prescription has been renewed) Lorazepam (Ativan) 1 Mg Tab 1 MG PO DAILY PRN for Anxiety for 7 Days, #7 TAB (This prescription has been renewed) Magnesium Hydroxide (Milk Of Magnesia) 30 Ml Susp 30 ML PO UD PRN for Constipation, ML IF NO BM IN 2 DAYS, GIVE ON DAY THREE Magnesium Oxide (Mag-Ox) 400 Mg Tab 400 MG PO BID, TAB Multiple Vitamins W/ Minerals (Therems M) 1 Tab Tab 1 TAB PO DAILY Omeprazole (Prilosec) 20 Mg Cap 20 MG PO DAILY, CAP Oxycodone Hcl (Oxycontin) 15 Mg Tab 15 MG PO Q12 for 3 Days, #6 TAB (This prescription has been renewed) Polyethylene Glycol 3350 (Miralax) 1 Pow Pow 17 GM PO BID Polyethylene Glycol-Propylene (Systane Ultra) 1 Idania Idania 1 DROPS OPB BID, #15 ML 1 Refill Potassium Chloride (Klor-Con M20) 20 Meq Tabcr 2 TAB PO BID Sodium Phosphate/Biphosphate (Fleet Enema) Eleanor 1 EA OR UD PRN for NO BM X 4 DAYS, BTL IF DULCOLAX SUPPOSITORY INEFFECTIVE Torsemide (Demadex) 100 Mg Tab 100 MG PO DAILY, TAB Torsemide (Demadex) 20 Mg Tab 50 MG PO 3XWK MON, WED, FRI ALONG WITH 100MG TO = 150MG Discontinued Medications: Albuterol (Ventolin) Inh 2 PUFF INH Q2H PRN for SOB/Wheezing, #18 Albuterol Hfa (Ventolin Hfa) 200 Puffs/78346 Mcg Aers 2 PUFF INH Q4 PRN for Wheezing Atenolol (Atenolol) 25 Mg Tab 24 MG PO DAILY, #20 Cephalexin Monohydrate (Keflex) 500 Mg Cap 500 MG PO QID, CAP Insulin Glargine (Lantus) Vial 40 UNITS SC QPM Insulin Human Isophan/Regular (Novolin 70/30) Inj 10 UNITS SC BID, BTL Morphine Sulfate Oral (Roxanol Oral) 20 Mg/1 Ml Soln 10 MG SL Q2H PRN for PAIN/SOB Prednisone (Prednisone) 20 Mg Tab 20 MG PO UD 20MG TID X 3 DAYS 20MG BID X 3 DAYS 20MG DAILY X 3 DAYS 10MG DAILY X 3 DAYS STOP Throat Lozenges (Menthol Cough Drops) 5 Mg Mary Jo 1 MARY JO MT PRN for MD ORDER Tiotropium [place] (Spiriva Handihaler) 30 Puff/540 Mcg Aerp 1 CAP INH DAILY, INHALER [Magic Movement] () 1 DOSE PO BID Referrals At Discharge Follow up Referrals: Physician Referral - Within 1 Week with Wilver Franco M.D. Link Trainer Operator Referral - Within 1 Week with Meir Whiteside DO Urologist Referral - Within 1 Week with Jones Miller M.D. Discharge Exam Feeling much better with his breathing after IV lasix and extra dose of IV steroids yesterday, ready for discharge, christi po, moving bowels. Still c/o some SOB with eating and nasal congesiton. Also with mouth pain today. Thrush on exam Review of Systems: Constitutional: No fever Eyes: No problem reported ENT: + nasal symptoms (congestion) Respiratory: + dyspnea on exertion, No cough Cardiovascular: No chest pain, No edema Abdomen: No constipation, No diarrhea, No pain Musculoskeletal: No problem reported Genitourinary - Male: + urinary retention Neurologic: + weakness (chronic generalized) Psychiatric: No problem reported Endocrine: No problem reported Hematologic / Lymphatic: No problem reported Integumentary: No problem reported Physical Exam: General Appearance: WD/WN, no apparent distress (but chronically ill appearing) Eyes: normal inspection, sclerae normal ENT: hearing grossly normal, + pertinent finding (white exudate patches on buccal mucosa and tongue) Neck: trachea midline Respiratory/Chest: no respiratory distress, no accessory muscle use (NC in place), + decreased breath sounds (throughout, some faint exp wheezes, no tachypnea, no accessory muscle use) Cardiovascular: regular rate, rhythm, no gallop, + pertinent finding (trace pitting edema legs to knees bilat) Abdomen / GI: normal bowel sounds, non tender, soft (but protuberant), + pertinent finding (Ball catheter in palce draining clear yellow urine) Extremities: no calf tenderness 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: alert, normal mood/affect, oriented x 3 Skin: normal color, warm/dry, no rash, + pertinent finding (rt buttocks with small shallow ulceration 1 cm, a scabbed over wound on left wrist) Hospital Course This is a 86-year-old male w/ a h/o DMII, adrenal insufficiency, obesity, CAD s/ p stent placement, HTN, dyslipidemia, PAF, CHF, PVD, CKD stage III, chronic anemia, COPD/emphysema, aspiration PNA, GERD, BPH with urinary retention, chronic constipation, h/o CVA/TIA, presents with weakness and SOB, likely combination of acute influenza type A and pneumonia as was recently in the hospital for SOB and abd pain (in [place], not tested for flu then? CHF?) Probably hospital acquired pneumonia. Generalized weakness, malaise, coughing due to influenza and pneumonia. Influenza A/Pneumonia likely hospital acquired vs Post-influenza/Dehydration/ Severe COPD with exacerbation/Acute on chronic hypoxemic respiratory failure: improved -given IV vancomycin and Zosyn for HCAP but sputum cx growing rare GNR/Normal ale and MRSA swab nasal PCR negative so Vanco stopped especially in light of poor renal function BCx 07/18 bottles +micrococcus most likely contaminant Repeat BCx from 07/16 still with NGTD Repeat CXR 07/17 improved PNA Repeat CXR 07/20 stable with residual bibasilar infiltrates -completed Tamiflu x 5 day course (last dose AM of 07/19/16) -received Zosyn x 7 days--> complete 3 more days of po Levaquin as outpatient -supportive care -supplemental O2 2-4 LNC -nebs qid and q3 prn -IV HC for stress dosed steroids given on admission--> BPs fine, returned to po dosing HC 40mg bid -received IV Solu Medrol and then transitioned to prednisone burst --> will give long slow taper and keep at 20mg daily until seen again by Pulm in the office within 1 week -Appreciate Pulm recommendations to remain off Spiriva for urinary retention -restart Advair upon discharge -start Flonase for nasal congestion causing worsening respiratory symptoms while eating Diabetes mellitus II-glucose rising due to prednisone- improved with increased Lantus dose -accuchecks, SSI and added carb coverage -increased Lantus to 47 units daily but glucose 88 AM of discharge--> decrease to lantus 45 units qPM for discharge -stop 70/30 Adrenal insufficiency-Stable: was on stress dosed HC IV here x 2 days and then convert back to po HC 40mg bid -continue Florinef -continue HC po 40mg bid Chronic kidney disease stage III, 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, 1.7 on admission, now 1.4-> 1.8-> 1.7, fairly stable -avoid nephrotoxins -renally dose meds -follow labs -replace K+ 40mg bid BPH w/ urinary retention- with Ball placed at [facility] after found 1000 mL retained urine and failed voiding trial prior to discharge on 07/14 -on Avodart at home, not formulary here--> remained on finasteride here and switch back to Avodart upon d/c -started Flomax and no orthostasis was observed -Urology saw and recommends keeping Ball in 7-10 days and f/u in the office for voiding trial--> NEEDS UROLOGY F/U visit within 1 week -avoid Spiriva HTN/CAD/acute on chronic diastolic CHF/PAF -BPs low on admission. In NSR here. Presumably not on AC for fall risk and h/o GI bleeding. Was a little fluid overloaded intermittently with worsening SOB which greatly improved with IV lasix -continue atenolol at lower dose, ASA, Plavix, torsemide, statin -gave lasix 40mg IV x 1 on 07/17 for fluid overload and another dose today 07/20 of 20mg IV with large volume diuresis -follow I/Os, daily weights, renal function -continue torsemide 100mg daily with 150mg MWF Constipation, chronic pain-improved, on chronic pain meds, -continue oxycodone, gabapentin, bowel regimen Stage II right buttocks decubitus ulcer POA- no signs of infection, observe and offload Proph-heparin SQ, PPI CODE STATUS: DNR/DNI Dispo: to [facility] today PT/OT eval recommends skilled PT due to being decreased from his baseline ability to transfer from bed to chair to motorized scooter using rolling walker Total Time Spent: Greater than 30 minutes This includes examination of the patient, discharge planning, medication reconciliation, and communication with other providers. Discharge Instructions Please refer to the electronic Patient Visit Report (Discharge Instructions) for additional information. Follow-Up PCP 1-2 days Pulm 1 week Urology 1 week Additional Copies To Meir Whiteside DO; Jones Miller M.D.; Wilver Franco M.D.
[2016-07-21] MEDS: ARTIFICIAL TEARS OP SOLN OPB SCH ×2 (10:02)
[2016-07-21] MEDS ORDERED: ATV1 PO (10:04)
[2016-07-21] MEDS ORDERED: OXYSR15 PO (10:04)
[2016-07-21] MEDS: DOCUSATE SODIUM 100 MG CAP PO SCH (10:06)
[2016-07-21] MEDS: CALCIUM POLYCARBOPHIL 1 TAB PO SCH (10:07)
[2016-07-21] MEDS: HYDROCORTISONE 10 MG TAB PO SCH (10:07)
[2016-07-21] MEDS: MAGNESIUM OXIDE 400 MG TAB PO SCH (10:08)
[2016-07-21] MEDS: POTASSIUM CHLORIDE 20 MEQ TABCR PO SCH (10:08)
[2016-07-21] MEDS: FLUDROCORTISONE ACETATE 0.1 MG TAB PO SCH (10:08)
[2016-07-21] MEDS: GUAIFENESIN 600 MG TABCR PO SCH (10:09)
[2016-07-21] MEDS: GABAPENTIN 600 MG TAB PO SCH (10:09)
[2016-07-21] MEDS: PANTOprazole SOD 40 MG TAB PO SCH (10:10)
[2016-07-21] MEDS: FINASTERIDE 5 MG TAB PO SCH (10:11)
[2016-07-21] MEDS: ASPIRIN 81 MG ECTAB PO SCH (10:11)
[2016-07-21] MEDS: CLOPIDOGREL BISULFATE 75 MG TAB PO SCH (10:16)
[2016-07-21] MEDS: CEROVITE ADV FORMULA TAB PO SCH (10:16)
[2016-07-21] MEDS: POLYETHYLENE (MIRALAX) 17 GM PACK PO SCH (10:17)
[2016-07-21] MEDS: OXYCODONE HCL 15 MG TABCR (OXYCONTIN) PO SCH (10:37)
[2016-07-21] MEDS: LIDODERM (LIDOCAINE) PATCH 5% TD SCH (10:46)
[2016-07-21] MEDS: INSULIN ASPART 100 UNITS/ML 3 ML PEN SC SCH ×2 (10:49→12:04)
[2016-07-21 11:36] VITALS: PULSE 82; O2SAT 98
[2016-07-21] MEDS: BISACODYL 5 MG TABEC PO SCH (11:52)
[2016-07-21 11:58] VITALS: BP 110/74; PULSE 82; TEMP 36.4; O2SAT 98
[2016-08-17] MEDS ORDERED: PSEU60TA80 PO (09:07)
[2016-08-17] MEDS ORDERED: POLYSOL4 OP (09:07)
[2016-08-17] MEDS ORDERED: LEVA45AE (09:07)
[2016-08-17] MEDS ORDERED: METO2.5T PO (09:07)
[2016-08-21] MEDS ORDERED: LEVO-17 PO (10:53)
[2016-11-10] MEDS ORDERED: FLR1 PO (07:47)
[2016-11-10] MEDS ORDERED: LCTX PO (07:47)
[2016-11-10] MEDS ORDERED: CIPR1TAB11 PO (07:48)
[2017-03-01] MEDS ORDERED: GFNSR600 PO (00:08)
[2017-03-01] MEDS ORDERED: DOCU-94 PO (00:15)
[2017-03-01] MEDS ORDERED: ACET-1256 PO (00:18)
[2017-03-01] MEDS ORDERED: METO2.5T PO (00:23)
[2017-03-01] MEDS ORDERED: MULTTAB63 PO (09:07)
[2017-03-01] MEDS ORDERED: NTRGSL/4 SL (09:07)
[2017-03-01] MEDS ORDERED: MAGN400T6 PO (09:50)
[2017-03-01] MEDS ORDERED: POLY1SOL6 OPB (09:50)
[2017-03-01] MEDS ORDERED: CLOP1TAB15 PO (09:56)
[2017-03-01] MEDS ORDERED: BISA1TAB15 PO (12:45)
[2017-03-01] MEDS ORDERED: ATV5X PO (12:47)
[2017-03-01] MEDS ORDERED: ATEN-173 PO (12:47)
[2017-03-01] MEDS ORDERED: HYDR20TA3 PO (16:12)
[2017-03-01] MEDS ORDERED: PRLSR20 PO (19:07)
[2017-03-26] MEDS ORDERED: WARF3TAB6 PO (20:54)
[2017-03-28] MEDS ORDERED: MCRK20 PO (16:37)
[2017-03-28] MEDS ORDERED: HYD10 PO (16:37)
[2017-03-28] MEDS ORDERED: OXYSR15 PO (16:37)
[2017-03-28] MEDS ORDERED: CYAN10005 PO (16:37)
[2017-03-28] MEDS ORDERED: HYDR20TA PO (16:53)
[2017-03-28] MEDS ORDERED: FLUC100T4 PO (17:10)
== END 2016-07-21 12:53 | DRG 193 ==
LOC: ENRESERVDT → ENRESERVTM → EDBD 08:14 → C.EDB 08:16 → C.2T 11:37 → UNDOADMIN 11:37 → C.MS2W 07-17 18:59
PROVIDERS: ADMIT Internal Medicine; ATTEND Family Medicine
DX: J11.00 Influenza due to unidentified influenza virus with unspecified type of pneumonia (principal); I50.33 Acute on chronic diastolic (congestive) heart failure; J96.21 Acute and chronic respiratory failure with hypoxia; E27.40 Unspecified adrenocortical insufficiency; J44.1 Chronic obstructive pulmonary disease with (acute) exacerbation; I12.9 Hypertensive chronic kidney disease with stage 1 through stage 4 chronic kidney disease, or unspecified chronic kidney disease; N18.3 Chronic kidney disease, stage 3 (moderate); E66.9 Obesity, unspecified; Z66 Do not resuscitate; I25.10 Atherosclerotic heart disease of native coronary artery without angina pectoris; I73.9 Peripheral vascular disease, unspecified; E78.00 Pure hypercholesterolemia, unspecified; I48.0 Paroxysmal atrial fibrillation; N40.1 Benign prostatic hyperplasia with lower urinary tract symptoms; R33.9 Retention of urine, unspecified; E11.22 Type 2 diabetes mellitus with diabetic chronic kidney disease; K59.00 Constipation, unspecified; E86.0 Dehydration; K21.9 Gastro-esophageal reflux disease without esophagitis; E87.6 Hypokalemia; E78.5 Hyperlipidemia, unspecified; L89.312 Pressure ulcer of right buttock, stage 2; B96.89 Other specified bacterial agents as the cause of diseases classified elsewhere; E11.65 Type 2 diabetes mellitus with hyperglycemia; T38.0X5A Adverse effect of glucocorticoids and synthetic analogues, initial encounter; Y92.239 Unspecified place in hospital as the place of occurrence of the external cause; I25.2 Old myocardial infarction; Z87.891 Personal history of nicotine dependence; Z86.73 Personal history of transient ischemic attack (TIA), and cerebral infarction without residual deficits; Z98.61 Coronary angioplasty status; Z83.3 Family history of diabetes mellitus; Z82.49 Family history of ischemic heart disease and other diseases of the circulatory system; Z79.02 Long term (current) use of antithrombotics/antiplatelets; Z79.4 Long term (current) use of insulin; Z79.52 Long term (current) use of systemic steroids; Z79.82 Long term (current) use of aspirin; Z79.899 Other long term (current) drug therapy

== ENCOUNTER → 2016-08-16 | Outpatient (CLI) | payer OTHER ==
[~2016-08-16] MED LIST changes: +ACET-1256 PO; +ACET-1311 PO; +ADVIN25/60 INH; +ADVIN25050 INH; -ADVIN50/60 INH; -ALBU1NEB10 INH; -ALBUAER2 INH; +AMOX875T PO; +ASPCH81X PO; +ATEN-173 PO; -ATV/1 PO; +ATV1 PO; +ATV5X PO; +BISA1TAB15 PO; +CALC625T4 PO; -CARB1SOL8 OTB; +CIPR1TAB11 PO; +CLOP1TAB15 PO; +CMD5 PO; +CYAN10005 PO; +CYAN1TAB18 PO; +CYM30 PO; +DMD20 PO; +DOCU-94 PO; +DULO60CA44 PO; +DUTA1CAP3 PO; +ENOX120I SQ; +FAMO1TAB47 PO; +FIBER PO; +FLM4 PO; +FLNIN; +FLR1 PO; +FLUC100T4 PO; +FLUD0.1T10 PO; +GFNSR600 PO; +GUAI1TAB55 PO; -HOME1TAB PO; +HYD10 PO; -HYDR-5688 PO; +HYDR20TA PO; +HYDR20TA3 PO; -INSDGI SC; +INSDGI SQ; +INSDGIPEN SC; -INSU70IN2 SC; +IPRA1AER2 INH; +IPRASOL4 INH; +LCTX PO; +LDDP5 TD; +LEVA45AE; +LEVO-17 PO; +LEVO1TAB33 PO; +LEVO1TAB35 PO; -LIDO1OIN4 TOP; +LINE1TAB6 PO; -LORA-741 PO; +LPT/20 PO; -MAGN10TA PO; +MAGN400T6 PO; +METH1TAB5 PO; -METO10TA6 PO; +METO2.5T PO; -MORP20SO SL; +MTHH1 PO; +MULTTAB63 PO; +NRN600 PO; +NRN800 PO; +NTRGSL/4 SL; +NVLGI7030 SQ; +NVLGIPEN SC; +NYSS5 PO; +ONDA4TAB9 PO; +OXGN; +OXYC15TA89 PO; +OXYSR15 PO; -POLY1SOL6 OP; +POLY1SOL6 OPB; +POLY335019 PO; +POLYSOL4 OP; +PRD20 PO; +PRED10TA PO; +PRED20TA PO; +PRLSR20 PO; +PSEU60TA80 PO; +SIME80CH PO; -SPRIN/30 INH; +TAMS0.4C38 PO; -THROLOZ MT; +TORS100T13 PO; +TORS20TA2 PO; +TROL10LO TOP; +TYLOTC500 PO; -VNTHFA/IN INH; +WARF2.5T8 PO; +WARF2TAB PO; +WARF3TAB6 PO; -WHITOIN2 TOP; +XPNINS INH; +XPNINS NEB; +[UNRECOGNIZED DRUG - CODE] TOP; -[UNRECOGNIZED DRUG - CODE] TOP; -[UNRECOGNIZED DRUG - OTHER] PO; +[UNRECOGNIZED DRUG - REMARK]
[2016-08-16 10:57] LABS: URINE APPEARANCE CLOUDY (CLEAR); URINE BILIRUBIN NEG (NEG); URINE COLOR YELLOW; URINE NITRITE POS (NEG); URINE PH 6.5 (4.5-7.5); URINE SPECIFIC GRAVITY 1.009 (1.000-1.030); UROBILINOGEN NEG (NEG)
[2016-08-16 10:58] LABS: MANUAL MICROSCOPIC REQUIRED? NO; REVIEW REQ? NO
== END | disposition home or self-care (01) ==
LOC: C.LABVPSUA 10:04
PROVIDERS: ATTEND Internal Medicine Critical Care Medicine
DX: R30.0 Dysuria (principal)

== ENCOUNTER 2016-08-17 08:10 | Inpatient (IN) | payer OTHER ==
[~2016-08-17] VITALS: Ht 177.8 cm; Wt 96.3 kg
[2016-08-17] VITALS (11 sets, daily range): BP systolic 86–104; BP diastolic 51–61; PULSE 65–120; TEMP 36.8–39.5; O2SAT 92–99; Ht 177.8 cm; Wt 96.3 kg
[~2016-08-17 08:10] MED LIST changes: -ACET-1256 PO; -ACET-1311 PO; -ADVIN25/60 INH; -AMOX875T PO; -ASPCH81X PO; -ATEN-173 PO; -ATV5X PO; -BISA1TAB15 PO; -CIPR1TAB11 PO; -CLOP1TAB15 PO; -CMD5 PO; -CYAN10005 PO; -CYAN1TAB18 PO; -CYM30 PO; -DMD20 PO; -DOCU-94 PO; -DULO60CA44 PO; -DUTA1CAP3 PO; -ENOX120I SQ; -FAMO1TAB47 PO; -FIBER PO; -FLR1 PO; -FLUC100T4 PO; -FLUD0.1T10 PO; -GUAI1TAB55 PO; -HYD10 PO; -HYDR20TA PO; -HYDR20TA3 PO; -INSDGI SQ; -IPRA1AER2 INH; -LCTX PO; -LEVA45AE; -LEVO-17 PO; -LEVO1TAB35 PO; -LINE1TAB6 PO; -LPT/20 PO; -LVQ750 PO; -MAGN400T6 PO; -METH1TAB5 PO; -METO2.5T PO; -MTHH1 PO; -NRN800 PO; -NTRGSL/4 SL; -NVLGI7030 SQ; -ONDA4TAB9 PO; -OXGN; -OXYC15TA89 PO; -POLY1SOL6 OPB; -POLY335019 PO; -POLYSOL4 OP; -PRED10TA PO; -PRED20TA PO; -PRLSR20 PO; -PSEU60TA80 PO; -SIME80CH PO; -TAMS0.4C38 PO; -TROL10LO TOP; -WARF2.5T8 PO; -WARF2TAB PO; -WARF3TAB6 PO; -XPNINS NEB; -[UNRECOGNIZED DRUG - CODE] TOP; -[UNRECOGNIZED DRUG - REMARK]
[2016-08-17] MEDS ORDERED: SODIUM CHLORIDE 0.9% 1000ML 250 ML IV STA (08:45)
[2016-08-17] MEDS ORDERED: SODIUM CHLORIDE 0.9% 1000ML 1,000 ML IV STA ×2 (08:45→09:58)
--- NOTE | 2016-08-17 08:47 | EMERGENCY ROOM VISIT NOTE ---
History Report prepared by Hood: Domingo Noel Under the Supervision of: Dr. Antonio Pineda M.D. First contact with patient: 08:37 Chief Complaint: GI ASSESSMENT Stated Complaint: ABDOMINAL PAIN/WEAKNESS Nursing Triage Summary: pt presents with abdominal distention. c/o abdominal pain and sob. pt has had urinary retention. ?uti but hasnt been started on any medications due to the culture report not back. [facility] reports pt has had fevers. recent admission to the hospial. History of Present Illness The patient is an 86 year old male who presents to the Emergency Room with complaints of an episode of fevers that occurred prior to arrival today. Per the patient's , [place] and [place] called the patient's to say that the patient had a fever and was shaky. Per the patient, he "hurts everywhere" but he denies any abdominal pain. The patient's called the patient's primary care physician and the physician recommended that the patient be admitted. The patient also denies a cough. Per the patient's , there have been no changes in mental status, and he is usually "with it". Per the nursing staff, the patient is retaining a lot of urine currently. The patient was admitted here over [place] for a couple weeks for a bladder infection. He has COPD and had respiratory flu. He is on a nebulizer treatment. The patient has not had any recent falls. Source of History: patient, spouse/significant other, nursing staff Onset: Prior to arrival today Position: other (global - fevers) Timing: other (episode) Associated Symptoms: No abdominal pain, No cough Note: Associated symptoms: Shaky. Says he "hurts everywhere". Nursing staff says the patient is retaining a lot of urine. Denies change in mental status. Review of Systems See HPI for pertinent positives & negatives. A total of 10 systems reviewed and were otherwise negative. Past Medical & Surgical Medical Problems: (1) Anemia (2) chronic kidney disease (3) COPD (chronic obstructive pulmonary disease) (4) Coronary artery disease (5) CVA (cerebrovascular accident) (6) Essential hypertension (7) HTN (hypertension) (8) Hypercholesterolemia (9) Hyperparathyroidism (10) Hypotension (11) Influenza A (12) IN (myocardial infarction) (13) Peripheral vascular disease (14) TIA (transient ischemic attack) (15) Urinary retention (16) Urosepsis Surgical Problems: (1) H/O heart artery stent Old medical records were reviewed. Nurse's notes were reviewed and I agree with. Family History FH: heart disease Hypertension Social History Smoking Status: Never Smoker Alcohol Use: occasionally Drug Use: none Marital Status: Housing Status: lives with significant other Occupation Status: retired Current/Historical Medications Scheduled Aspirin (Aspirin Chewable), 81 MG PO DAILY Atenolol (Atenolol), 12.5 MG PO DAILY Atorvastatin (Lipitor), 20 MG PO HS Bisacodyl (Bisacodyl), 5 MG PO BID Bisacodyl (Bisac-Evac), 10 MG RE UNKNOWN Calcium Polycarbophil (Fiber Laxative), 1 TAB PO DAILY Clopidogrel (Plavix), 75 MG PO DAILY Docusate Sodium (Colace), 100 MG PO BID Dutasteride (Avodart), 0.5 MG PO DAILY Famotidine (Pepcid), 20 MG PO HS Fludrocortisone Acetate (Florinef), 0.1 MG PO DAILY Fluticasone Prop/Salmeterol (Advair Diskus 250-50 Mcg/Dose), 1 PUFF INH BID Fluticasone Propionate (Fluticasone Propionate), 2 SPRAYS NA DAILY Gabapentin (Gabapentin), 600 MG PO BID Hydrocortisone (Cortef), 40 MG PO BID Insulin Aspart (Novolog Flexpen), 0 UNITS SC ACHS Insulin Glargine (Lantus Solostar), 45 UNIT SC QPM Levalbuterol Tartrate (Levalbuterol Tartrate Hfa), 0.63 Q3H Lidocaine (Lidocaine), 1 PATCH TD QAM Magnesium Oxide (Mag-Ox), 400 MG PO BID Metolazone (Zaroxolyn), 2.5 MG PO PRN Nitroglycerin (Nitrostat), 1 TAB SL UD Oxycodone HCl (Oxycontin), 15 MG PO Q12 Polyethylene Glycol 3350 (Miralax), 17 GM PO BID Polyethylene Glycol-Propylene (Systane Ultra), 1 DROPS OPB BID Polyethylene Glycol-Propylene (Systane), 1 DROPS OP QID Potassium Chloride (Klor-Con M20), 2 TAB PO BID Prednisone (Prednisone), 40 MG PO DAILY Pseudoephedrine-Guaifenesin (Mucinex D), 1 TAB PO BID Tamsulosin HCl (Tamsulosin HCl), 0.4 MG PO HS Torsemide (Demadex), 100 MG PO DAILY Torsemide (Demadex), 50 MG PO 3XWK Scheduled PRN Acetaminophen (Tylenol), 1,000 MG PO AMPM PRN for PA Lorazepam (Lorazepam), 1 MG PO DAILY PRN for Anxiety Magnesium Hydroxide (Milk Of Magnesia), 30 ML PO UD PRN for Constipation Miscellaneous Medications Multiple Vitamins W/ Minerals (Therems M) Allergies Coded Allergies: No Known Allergies (Unverified , 11/08/14) Physical Exam Vital Signs Date Time Temp Pulse Resp B/P Pulse Ox O2 Delivery O2 Flow Rate FiO2 08/17/16 10:13 110 20 118/72 97 Nasal Cannula 4.0 08/17/16 09:39 96 18 133/75 95 Nasal Cannula 3.0 08/17/16 08:21 37.0 94 22 114/78 95 Room Air 08/17/16 08:15 98 08/17/16 08:10 96 Nasal Cannula 4.0 08/17/16 08:10 88 Room Air Physical Exam General: Well developed well nourished chronically ill-appearing older male in no acute distress, breathing comfortably on room air. Normal speech HEENT: Normal cephalic atraumatic. Pupils are equal round and reactive to light. Extraocular movements are intact. Oropharynx is pink with moist mucous membranes. No swelling of the mouth lips or tongue. Neck: Supple with a midline trachea. No meningeal signs or stiffness, no JVD or bruits. No Stridor. Chest: Clear to auscultation bilaterally. No wheezes or rhonchi. No increased work of breathing. Heart: regular rate and rhythm. Abdomen: Soft nontender, nondistended without rebound guarding or rigidity. Extremities: No cyanosis clubbing or edema. No calf tenderness or assymetry Spine/Back. Non tender to palpation. No CVA tenderness Skin: Good turgor without rashes. Neurologic exam: Cranial nerves two through 12 are intact. Motor and sensation are intact and symmetrical throughout. Medical Decision & Procedures ER Provider Diagnostic Interpretation: X-ray results as stated below per interpretation by me and the radiologist: CHEST ONE VIEW PORTABLE HISTORY: Atypical CHEST PAIN COMPARISON: Chest 07/20/2016. FINDINGS: Calcified granulomas within the right upper lobe. The heart is stable in size. No pneumothorax. No pleural effusions. There is a new 2 cm opacity within the left upper lobe. There is also suggestion of a 1.5 cm nodule within the base of the left lower lobe. These are not present on the study performed one month earlier. There is also a new 1.3 cm nodule within the right medial lung base. These nodules do not clearly represent nipple shadows. IMPRESSION: There is a new 2 cm irregular opacity within left upper lobe and 2 and basilar nodules. Given the recent change this favors an infectious process. However, one month chest x-ray follow-up is recommended to ensure resolution. In addition, a chest CT can be performed for further evaluation of the lower lobe nodular densities. Electronically signed by: Aubrey Kaplan M.D. 08/17/2016 9:13 AM Dictated Date/Time: 08/17/2016 9:09 AM Laboratory Results Test 08/17/16 08:35 08/17/16 09:08 08/17/16 09:13 08/17/16 09:16 Urine Color YELLOW Urine Appearance CLEAR (CLEAR) Urine pH 6.5 (4.5-7.5) Urine Specific [place] 1.013 (1.000-1.030) Urine Protein NEG (NEG) Urine Glucose (UA) NEG (NEG) Urine Ketones NEG (NEG) Urine Occult Blood 1+ (NEG) Urine Nitrite POS (NEG) Urine Bilirubin NEG (NEG) Urine Urobilinogen NEG (NEG) Urine Leukocyte Esterase MODERATE (NEG) Urine WBC (Auto) >30 /hpf (0-5) Urine RBC (Auto) 0-4 /hpf (0-4) Urine Hyaline Casts (Auto) 1-5 /lpf (0-5) Urine Epithelial Cells (Auto) 0-5 /lpf (0-5) Urine Bacteria (Auto) 2+ (NEG) Neutrophils % (Manual) 83.2 % Lymphocytes % (Manual) 8.8 % Monocytes % (Manual) 5.3 % Eosinophils % (Manual) 0.9 % Metamyelocytes % 1.8 % Neutrophils # (Manual) 8.17 K/uL (1.4-6.5) Total Absolute Neutrophils 8.17 K/uL (1.4-6.5) Lymphocytes # (Manual) 0.86 K/uL (1.2-3.4) Total Absolute Lymphocytes 0.86 K/uL (1.2-3.4) Monocytes # (Manual) 0.52 K/uL (0.11-0.59) Eosinophils # (Manual) 0.09 K/uL (0-0.5) Metamyelocytes # 0.18 K/uL (0-0) Red Blood Cell Morphology Unremarkable Prothrombin Time 10.6 SECONDS (9.0-12.0) Prothromb Time International Ratio 1.0 (0.9-1.1) Activated Partial Thromboplast Time 23.3 SECONDS (21.0-31.0) Partial Thromboplastin Ratio 0.9 Total Creatine Kinase 81 U/L (39-308) Creatine Kinase MB 1.4 ng/ml (0.5-3.6) Creatine Kinase MB Ratio 1.7 (0-3.0) Lipase 64 U/L (73-393) Bedside Troponin I 0.040 ng/ml (0-0.045) Bedside Lactic Acid Venous 1.92 mmol/L (0.90-1.70) Laboratory studies as stated above per my review. Medications Administered Medications (Trade) Dose Ordered Sig/Cole Route Start Time Stop Time Status Last Admin Dose Admin Sodium Chloride 250 ml @ 999 mls/hr Q16M STAT IV 08/17/16 08:45 08/17/16 09:00 DC 08/17/16 08:45 999 MLS/HR Sodium Chloride (Nss 1000ml) 1,000 ml @ 100 mls/hr Q10H STAT IV 08/17/16 08:45 08/17/16 13:17 DC 08/17/16 09:39 100 MLS/HR Levofloxacin 750 mg 750 mg NOW STAT IV 08/17/16 09:02 08/17/16 09:03 DC 08/17/16 09:11 750 MG Sodium Chloride (Nss 1000ml) 1,000 ml @ 999 mls/hr Q1H1M STAT IV 08/17/16 09:58 08/17/16 10:58 DC 08/17/16 09:58 999 MLS/HR ECG Indication: abdominal pain Rate (beats per minute): 100 Rhythm: sinus tachycardia Findings: other (poor baseline, RBBB, poor R-wave progression) Change: no significant change (compared to Jul 14 2016) ED Course 0838: Past medical records reviewed. The patient was evaluated in room A2, and a complete history and physical examination were performed. 0845: Ordered NSS 1000 ml @ 100 mls/hr IV, NSS 250 ml @ 999 mls/hr IV. 0902: Ordered Levaquin / D5W 750 mg IV. 0910: I reevaluated the patient and they are finishing up blood work. 0958: Ordered NSS 1000 ml @ 999 mls/hr IV. 1001: I discussed the patient with Dr. Deshawn CHAHAL hospitalist - she will evaluate the patient for further treatment. 1003: Upon reevaluation, the patient is resting comfortably. I discussed the results and treatment plan with the patient and his . He verbalized agreement of the treatment plan. The patient will be evaluated for further management. Medical Decision Differential diagnoses include: UTI, urinary retention, arrhythmia, acute coronary syndrome, sepsis, electrolyte or metabolic abnormality. This patient comes in as described above. He was placed in room A2. He is here for treatment and evaluation of possible infection. He's had more weakness and confusion. He also fever he does have a history of multiple medical problems include lung problems and urinary symptoms. He was found to have urinary retention and was treated with a Ball cath. IV access established was gently hydrated with normal saline he was found to be normotensive. His white count is not elevated gas is 1.9. His urinalysis does suggest a UTI with a culture pending chest x-ray shows a possible infiltrate. He was given Levaquin IV. I do think he needs to be admitted for further treatment and evaluation. I have consulted the hospitalist. They saw her in the ER and will admit her for these measures. Consults Time Called: 1000 Consulting Physician: Dr. Deshawn CHAHAL hospitalist Returned Call: 1001 I discussed the patient with Dr. Deshawn pina - she will evaluate the patient for further treatment. Impression Primary Impression: Sepsis Additional Impression: UTI (lower urinary tract infection) Scribe Attestation The scribe's documentation has been prepared under my direction and personally reviewed by me in its entirety. I confirm that the note above accurately reflects all work, treatment, procedures, and medical decision making performed by me. Departure Information Dispostion Being Evaluated By Hospitalist Kd Jarquin at [facility] (PCP) Patient Instructions My [facility] Health Problem Qualifiers
[2016-08-17] MEDS ORDERED: LEVAQUIN 750MG / 150ML D5W IV STA (09:02)
[2016-08-17] MEDS ORDERED: LEVA45AE ×2 (09:07)
[2016-08-17] MEDS ORDERED: POLYSOL4 OP ×2 (09:07)
[2016-08-17] MEDS ORDERED: PSEU60TA80 PO ×2 (09:07)
[2016-08-17] MEDS ORDERED: METO2.5T PO ×2 (09:07)
--- NOTE | 2016-08-17 09:14 | DIAGNOSTIC IMAGING REPORT ---
CHEST ONE VIEW PORTABLE HISTORY: Atypical CHEST PAIN COMPARISON: Chest 07/20/2016. FINDINGS: Calcified granulomas within the right upper lobe. The heart is stable in size. No pneumothorax. No pleural effusions. There is a new 2 cm opacity within the left upper lobe. There is also suggestion of a 1.5 cm nodule within the base of the left lower lobe. These are not present on the study performed one month earlier. There is also a new 1.3 cm nodule within the right medial lung base. These nodules do not clearly represent nipple shadows. IMPRESSION: There is a new 2 cm irregular opacity within left upper lobe and 2 and basilar nodules. Given the recent change this favors an infectious process. However, one month chest x-ray follow-up is recommended to ensure resolution. In addition, a chest CT can be performed for further evaluation of the lower lobe nodular densities. Electronically signed by: Aubrey Kaplan M.D. 08/17/2016 9:13 AM Dictated Date/Time: 08/17/2016 9:09 AM
[2016-08-17 09:23] LABS: URINE APPEARANCE CLEAR (CLEAR); URINE BILIRUBIN NEG (NEG); URINE COLOR YELLOW; URINE EPITHELIAL CELL AUTO 0-5 /lpf (0-5); URINE NITRITE POS (NEG); URINE PH 6.5 (4.5-7.5); URINE SPECIFIC GRAVITY 1.013 (1.000-1.030); UROBILINOGEN NEG (NEG)
[2016-08-17 09:24] LABS: MANUAL MICROSCOPIC REQUIRED? NO; REVIEW REQ? NO
[2016-08-17 09:25] LABS: HEMATOCRIT 41.8 % (42-52); MEAN CELL VOLUME 94.1 fL (80-100); MEAN CORPUSCULAR HEMOGLOBIN 29.7 pg (25-34); MEAN CORPUSCULAR HGB CONC 31.6 g/dl (32-36); MEAN PLATELET VOLUME 10.1 fL (7.4-10.4); PLATELET COUNT 137 K/uL (130-400); RED BLOOD COUNT 4.44 M/uL (4.7-6.1); WHITE BLOOD COUNT 9.82 K/uL (4.8-10.8)
[2016-08-17 09:37] LABS: PARTIAL THROMBOPLASTIN RATIO 0.9; PROTHROMBIN TIME (PATIENT) 10.6 SECONDS (9.0-12.0)
[2016-08-17 09:42] LABS: BUN/CREATININE RATIO 21.2 (10-20); CALCIUM 8.9 mg/dl (8.5-10.1); COMPLETE YES; CREATININE 1.8 mg/dl (0.60-1.40); EOSINOPHIL % 0.9 %; LYMPH ABS # 0.86 K/uL (1.2-3.4); LYMPHOCYTE % 8.8 %; META ABS # 0.18 K/uL (0-0); METAMYELOCYTE % 1.8 %; NEUTROPHILS % 83.2 %; POTASSIUM 3.5 mmol/L (3.5-5.1)
[2016-08-17 09:47] LABS: CKMB/CK RATIO 1.7 (0-3.0)
--- NOTE | 2016-08-17 10:21 | History and Physical ---
History & Physical Date & Time of Service: Aug 17, 2016 at 10:16 Chief Complaint: Abdominal Pain/Weakness Primary Care Physician: Wilver Franco M.D. History of Present Illness Source: patient, family This is a 86 yo M with PMHx including DMII, adrenal insufficiency, obesity, CAD s/p stent placement, HTN, dyslipidemia, PAF, CHF, PVD, CKD stage III, chronic anemia, COPD/emphysema, aspiration PNA, GERD, BPH with urinary retention, chronic constipation, h/o CVA/TIA, presents with fevers and tremors which developed overnight. He is accompanied by his who provides most of the history as he is in moderate distress with tremors and does not want to provide history. She notes being with the patient last night and noticed he was developing tremors around 7:30pm but had no other complaints. At that time he didn't think anything was wrong, and nursing notes that sometimes prednisone has caused him to develop fine tremors. This morning at ~ 0720 pt was febrile with Gpjc=795.4 per SNF and tremors were worsening. Since last admission from Jul 15-2016 the patient had an indwelling marshall placed, removed on 08/[address] Miller. He was ordered for QID straight caths however the patient was refusing this as he was urinating on his own ~ 2L total, with about 300 - 400 mL at a time, 2-3 x daily. He has been being straight cathed for PVR >150ml, and routinely has straight cath before going to bed. Urine culture was obtained at [facility] yesterday and preliminary report is growing psedomonas. Sensitivities to follow. Prior admissions include here at [facility] for influenzae from Jul 15- and at [facility] for several weeks for lactic acidosis and sepsis in June 2016. Per nursing the pt has been significantly declining and not reaching close to baseline as compared to prior to [facility] hospitalization. The patient normally ambulates with the assistance of a walker. Prior to influenza admission here at [facility] he was wearing noctural O2 only, but since has required 4L continuously. Received 1 dose Levaquin in the ED after ua and ucx were obtained. Lactic acid= 1.92. Pt had 1 L NSS and then was placed on maintence fluids at 100mL/hr. BP has been borderline low around 110 with fluids. Past Medical/Surgical History Medical Problems: (1) Anemia Status: Chronic (2) COPD (chronic obstructive pulmonary disease) Status: Chronic (3) Coronary artery disease Status: Chronic (4) CVA (cerebrovascular accident) Status: Resolved (5) Essential hypertension Status: Chronic (6) HTN (hypertension) Status: Chronic (7) Hypercholesterolemia Status: Chronic (8) Hyperparathyroidism Status: Chronic (9) Hypotension Status: Chronic (10) WI (myocardial infarction) Status: Resolved (11) Peripheral vascular disease Status: Chronic (12) TIA (transient ischemic attack) Status: Resolved Surgical Problems: (1) H/O heart artery stent Status: Resolved Family History FH: heart disease Hypertension Social History Smoking Status: Never Smoker Smokeless Tobacco Use: No Alcohol Use: none Drug Use: none Marital Status: Housing status: long term Occupational Status: retired Immunizations History of Influenza Vaccine: Yes Influenza Vaccine Date: Jun 08, 2013 History of Tetanus Vaccine?: Unknown History of Pneumococcal: Yes History of Hepatitis B Vaccine: Unknown Allergies Coded Allergies: No Known Allergies (Unverified , 11/08/14) Home Medications Scheduled Aspirin (Aspirin Chewable), 81 MG PO DAILY Atenolol (Atenolol), 12.5 MG PO DAILY Atorvastatin (Lipitor), 20 MG PO HS Bisacodyl (Bisacodyl), 5 MG PO BID Bisacodyl (Bisac-Evac), 10 MG RE UNKNOWN Calcium Polycarbophil (Fiber Laxative), 1 TAB PO DAILY Clopidogrel (Plavix), 75 MG PO DAILY Docusate Sodium (Colace), 100 MG PO BID Dutasteride (Avodart), 0.5 MG PO DAILY Famotidine (Pepcid), 20 MG PO HS Fludrocortisone Acetate (Florinef), 0.1 MG PO DAILY Fluticasone Prop/Salmeterol (Advair Diskus 250-50 Mcg/Dose), 1 PUFF INH BID Fluticasone Propionate (Fluticasone Propionate), 2 SPRAYS NA DAILY Gabapentin (Gabapentin), 600 MG PO BID Hydrocortisone (Cortef), 40 MG PO BID Insulin Aspart (Novolog Flexpen), 0 UNITS SC ACHS Insulin Glargine (Lantus Solostar), 45 UNIT SC QPM Levalbuterol Tartrate (Levalbuterol Tartrate Hfa), 0.63 Q3H Lidocaine (Lidocaine), 1 PATCH TD QAM Magnesium Oxide (Mag-Ox), 400 MG PO BID Metolazone (Zaroxolyn), 2.5 MG PO PRN Nitroglycerin (Nitrostat), 1 TAB SL UD Oxycodone HCl (Oxycontin), 15 MG PO Q12 Polyethylene Glycol 3350 (Miralax), 17 GM PO BID Polyethylene Glycol-Propylene (Systane Ultra), 1 DROPS OPB BID Polyethylene Glycol-Propylene (Systane), 1 DROPS OP QID Potassium Chloride (Klor-Con M20), 2 TAB PO BID Prednisone (Prednisone), 40 MG PO DAILY Pseudoephedrine-Guaifenesin (Mucinex D), 1 TAB PO BID Tamsulosin HCl (Tamsulosin HCl), 0.4 MG PO HS Torsemide (Demadex), 100 MG PO DAILY Torsemide (Demadex), 50 MG PO 3XWK Scheduled PRN Acetaminophen (Tylenol), 1,000 MG PO AMPM PRN for PA Lorazepam (Lorazepam), 1 MG PO DAILY PRN for Anxiety Magnesium Hydroxide (Milk Of Magnesia), 30 ML PO UD PRN for Constipation Miscellaneous Medications Multiple Vitamins W/ Minerals (Therems M) Review of Systems Constitutional: + chills, + fever, + problem reported (tremors) Respiratory: No cough, No shortness of breath Cardiovascular: No chest pain, No palpitations Abdomen: No nausea, No pain, No vomiting Musculoskeletal: + joint pain (Left hip, notes pain from shingles 5 years ago) Neurologic: + problem reported (uses walker for ambulation), No numbness/ tingling Physical Exam Vital Signs Date Time Temp Pulse Resp B/P Pulse Ox O2 Delivery O2 Flow Rate FiO2 08/17/16 10:13 110 20 118/72 97 Nasal Cannula 4.0 08/17/16 09:39 96 18 133/75 95 Nasal Cannula 3.0 08/17/16 08:21 37.0 94 22 114/78 95 Room Air 08/17/16 08:15 98 08/17/16 08:10 96 Nasal Cannula 4.0 08/17/16 08:10 88 Room Air General Appearance: + moderate distress, + pertinent finding (+ gross tremors thoughout) Head: normocephalic, atraumatic Eyes: PERRL, EOMI ENT: hearing grossly normal, + pertinent finding (mucous membranes dry) Neck: supple, no JVD Respiratory/Chest: chest non-tender, normal breath sounds (difficult auscultation d/t tremor and pt inability to take adequate breaths), no respiratory distress, no accessory muscle use Cardiovascular: normal peripheral pulses, + tachycardia (HR ~ mid 90s) Abdomen/GI: + pertinent finding (+distended, nontender to palpation, + BS. ) Back: normal inspection Extremities/Musculoskelatal: no calf tenderness, + pedal edema (1+ pitting up to knee. ) Neurologic/Psych: alert, + pertinent finding (oriented to self and place. ) Skin: normal color, + pertinent finding (multiple areas of ecchymosis over extensor surfaces and forearms. ) Diagnostics Laboratory Results Results Past 24 Hours Test 08/17/16 08:35 08/17/16 09:08 08/17/16 09:16 Range/Units Urine Color YELLOW Urine Appearance CLEAR CLEAR Urine pH 6.5 4.5-7.5 Urine Specific [place] 1.013 1.000-1.030 Urine Protein NEG NEG Urine Glucose (UA) NEG NEG Urine Ketones NEG NEG Urine Occult Blood 1+ NEG Urine Nitrite POS NEG Urine Bilirubin NEG NEG Urine Urobilinogen NEG NEG Urine Leukocyte Esterase MODERATE NEG Urine WBC (Auto) >30 0-5 /hpf Urine RBC (Auto) 0-4 0-4 /hpf Urine Hyaline Casts (Auto) 1-5 0-5 /lpf Urine Epithelial Cells (Auto) 0-5 0-5 /lpf Urine Bacteria (Auto) 2+ NEG White Blood Count 9.82 4.8-10.8 K/uL Red Blood Count 4.44 4.7-6.1 M/uL Hemoglobin 13.2 14.0-18.0 g/dL Hematocrit 41.8 42-52 % Mean Corpuscular Volume 94.1 80-100 fL Mean Corpuscular Hemoglobin 29.7 25-34 pg Mean Corpuscular Hemoglobin Concent 31.6 32-36 g/dl Platelet Count 137 130-400 K/uL Mean Platelet Volume 10.1 7.4-10.4 fL RDW Standard Deviation 59.9 36.4-46.3 fL RDW Coefficient of Variation 17.5 11.5-14.5 % Nucleated RBC Absolute Count (auto) 0.08 0-0 K/uL Neutrophils % (Manual) 83.2 % Lymphocytes % (Manual) 8.8 % Monocytes % (Manual) 5.3 % Eosinophils % (Manual) 0.9 % Metamyelocytes % 1.8 % Nucleated Red Blood Cells % 0.8 % Neutrophils # (Manual) 8.17 1.4-6.5 K/uL Total Absolute Neutrophils 8.17 1.4-6.5 K/uL Lymphocytes # (Manual) 0.86 1.2-3.4 K/uL Total Absolute Lymphocytes 0.86 1.2-3.4 K/uL Monocytes # (Manual) 0.52 0.11-0.59 K/uL Eosinophils # (Manual) 0.09 0-0.5 K/uL Metamyelocytes # 0.18 0-0 K/uL Red Blood Cell Morphology Unremarkable Prothrombin Time 10.6 9.0-12.0 SECONDS Prothromb Time International Ratio 1.0 0.9-1.1 Activated Partial Thromboplast Time 23.3 21.0-31.0 SECONDS Partial Thromboplastin Ratio 0.9 Sodium Level 144 136-145 mmol/L Potassium Level 3.5 3.5-5.1 mmol/L Chloride Level 102 98-107 mmol/L Carbon Dioxide Level 33 21-32 mmol/L Anion Gap 9.0 3-11 mmol/L Blood Urea Nitrogen 38 7-18 mg/dl Creatinine 1.80 0.60-1.40 mg/dl Est Creatinine Clear Calc Drug Dose 34.8 ml/min Estimated GFR () 38.6 Estimated GFR (Non- 33.3 BUN/Creatinine Ratio 21.2 10-20 Random Glucose 70 70-99 mg/dl Calcium Level 8.9 8.5-10.1 mg/dl Total Bilirubin 0.6 0.2-1 mg/dl Direct Bilirubin 0.2 0-0.2 mg/dl Aspartate Amino Transf (AST/SGOT) 12 15-37 U/L Alanine Aminotransferase (ALT/SGPT) 27 12-78 U/L Alkaline Phosphatase 87 45-117 U/L Total Creatine Kinase 81 39-308 U/L Creatine Kinase MB 1.4 0.5-3.6 ng/ml Creatine Kinase MB Ratio 1.7 0-3.0 Total Protein 7.2 6.4-8.2 gm/dl Albumin 3.3 3.4-5.0 gm/dl Lipase 64 73-393 U/L Bedside Lactic Acid Venous 1.92 0.90-1.70 mmol/L Microbiology Results 08/17/16 Blood Culture, Received Pending 08/17/16 Blood Culture, Received Pending 08/17/16 Urine Culture, Received Pending Diagnostic Radiology CHEST ONE VIEW PORTABLE HISTORY: Atypical CHEST PAIN COMPARISON: Chest 07/20/2016. FINDINGS: Calcified granulomas within the right upper lobe. The heart is stable in size. No pneumothorax. No pleural effusions. There is a new 2 cm opacity within the left upper lobe. There is also suggestion of a 1.5 cm nodule within the base of the left lower lobe. These are not present on the study performed one month earlier. There is also a new 1.3 cm nodule within the right medial lung base. These nodules do not clearly represent nipple shadows. IMPRESSION: There is a new 2 cm irregular opacity within left upper lobe and 2 and basilar nodules. Given the recent change this favors an infectious process. However, one month chest x-ray follow-up is recommended to ensure resolution. In addition, a chest CT can be performed for further evaluation of the lower lobe nodular densities. Electronically signed by: Aubrey Kaplan M.D. 08/17/2016 9:13 AM Dictated Date/Time: 08/17/2016 9:09 AM The status of this report is Signed. EKG Vent. rate 100 BPM WV interval * ms QRS duration 110 ms QT/QTc 358/461 ms P-R-T axes * 270 35 RBBB, no acute ST wave changes or signs of ischemia Impression Assessment and Plan 86 yo M with PMHx including DMII, adrenal insufficiency, obesity, CAD s/p stent placement, HTN, dyslipidemia, PAF, CHF, PVD, CKD stage III, chronic anemia, COPD /emphysema, aspiration PNA, GERD, BPH with urinary retention, chronic constipation, h/o CVA/TIA, presents with fevers and tremors which developed overnight. Admitted for urosepsis growing pseudomonas Urosepsis - UCx growing pseudomonas from outpt urine obtained 08/16, follow sensitivities - Follow UA UCx repeated in ED - Received 1 L NSS in the ED, will place on slow IVFs due to history of CHF - WBC = 9K, baseline during last admit was aroun 5-6K. - Continue levaquin, already had 1 dose today, will need renally dosed - LA=1.92, repeat at noon - Urology consult for recent indwelling marshall cath placement and removal with need for straight cath as per HPI. Lung nodules seen on CT - IMPRESSION: There is a new 2 cm irregular opacity within left upper lobe and 2 and basilar nodules. Given the recent change this favors an infectious process. However, one month chest x-ray follow-up is recommended to ensure resolution. In addition, a chest CT can be performed for further evaluation of the lower lobe nodular densities. - Will obtain repeat CT now - Follow flu swab - Continue chronic O2=4L - Finishing prednisone taper at 10 mg currently with 3 days left from last admission. Diabetes mellitus II -accuchecks, SSI -increased Lantus to 45 units qPM Adrenal insufficiency-Stable: was on stress dosed HC IV here x 2 days and then convert back to po HC 40mg bid -continue Florinef -continue hydrocortisone po 40mg bid and will add on 12.5 mg Q8H for now for stress dosing. 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 1.8 upon admission -avoid nephrotoxins -renally dose meds -follow labs BPH w/ urinary retention- - Removed 600 mL with straight cath in the ED - on Avodart at home, not formulary here--> keep on finasteride while here and switch back to Avodart upon d/c - cont Flomax - During last admission had an indwelling marshall placed and was followed up by urology where the marshall was removed. Urology consult as above. HTN/CAD/acute on chronic diastolic CHF/PAF -continue atenolol with holding parameters for SBP < 100 and DBP < 60. - Cont ASA, Plavix, statin - HOLD torsemide with fluid hydration. Resume 100 mg daily once improved, takes 150 mg MWF normally. -follow I/Os, daily weights, renal function -continue torsemide 100mg daily with 150mg MWF Constipation, chronic pain-improved, on chronic pain meds, -continue oxycodone, gabapentin, bowel regimen Stage II right buttocks decubitus ulcer - no signs of infection, observe and offload DVT ppx: heparin SQ, Disposition: From [facility], to assist with discharge planning Level of Care Telemetry Advanced Directives Existing Advance Directive: Yes Existing Living Will: Yes Existing Power of Sourcing Specialist: Yes Resuscitation Status DO NOT RESUSCITATE VTE Prophylaxis VTE Risk Assessment Done? Y/N: Yes Risk Level: Low Given or contraindicated: Unfractionated heparin SQ Reviewed: Pt Seen/Exam by BELKIS Babb Notes, Labs, RAD, EKG History PA Supervision Note: I interviewed and examined the patient. Discussed with PA, and agree with findings and plan as documented in the note. Any exceptions or clarifications are listed here: Since arriving to the floor when I saw the pt, he had decompensated. He spiked a fever to 39.5, desaturated to the 60s with POx on finger, and was in respiratory distress, also tachycardic to the 120s possibly in A-fib on tele. RT placed him on NRB mask and was able to get POx to 100% when checked on the earlobe, however due to accessory muscle use, I ordered BiPAP and neb treatment , abd. Pt does open eyes and respond to questions appropriately but is quite dyspneic. He just returned from CT Chest as well done for possible new nodules seen on CXR. He says he has had left sided chest pain continuously since last night. Trop neg, ECG without ischemic changes on admission. No abd pain, not coughing much, no increased sputum production. In fact, until last night, he was doing fairly well at the [place]. confirms this. He is admitted with UTI, sepsis, and acute on chronic hypoxemic respiratory failure. Vitals reviewed, currently POx 100% on NRB, tachy in 120s with what appears to be NSR with PACs on tele. In moderate respiratory distress, tachypneic, using accessory muscles, dyspneic with one word sentences, alert and oriented x 2 Diminished BS throughout, +faint wheezes Tachy, reg rhythm, no audible murmur Abd soft NT ND +BS, Marshall cath in place Ext 1+ pitting edema with mild pink color to skin on legs bilat, left knee with purple ecchymosis from recent fall as per pt 1+ DP pulses bilat A?P: 86 yo male with multiple medical problems, here with acute on chronic hypoxemic respiratory failure and UTI with sepsis. He notably has adrenal insufficiency and BP borderline low -stress dosed steroids with IV HC and hold po HC to bring up BP while septic -lopressor IV prn tachycardia -for CP, has been constant since last night and initial trop and ECG ok--> check ECG now and repeat troponin 6 h from last -continue Levaquin for Pseudomonas UTI, renally dosed -Consult Urology for urinary retention -f/u on Chest CT for nodules, with severe COPD with acute exacerbation secondary to sepsis and possible infectious process--> start BiPAP, check ABG, nebs, consider Pulm consult, continue current prednisone taper down as is on IV HC now which should help with COPD with glucocorticoid effect as well -clinically dry and with sepsis, received IVF bolus in ER, lactate 1.9--> continue IVFs and repeat lactate now Proph-heparin SQ Dispo-DNR/DNI reaffirmed with patient and at bedside, but is ok with NIV/ BiPAP Back to [facility] when stable, expect at least 2-3 day stay Documented By: Siria Hess
[2016-08-17] MEDS ORDERED: ACETAMINOPHEN 325 MG TAB PO PRN (10:45)
[2016-08-17] MEDS ORDERED: ONDANSETRON INJ 2 MG/ML 2 ML VIAL IV PRN (10:45)
[2016-08-17] MEDS ORDERED: LEValbuterol HFA 15GM INHALER INH SCH (10:45)
[2016-08-17] MEDS ORDERED: ACETAMINOPHEN 500 MG TAB PO PRN (10:45)
[2016-08-17] MEDS ORDERED: BISACODYL 10 MG SUPP PR PRN (10:45)
[2016-08-17] MEDS ORDERED: METOLAZONE 2.5 MG TAB PO SCH (10:45)
[2016-08-17] MEDS ORDERED: SODIUM CHLORIDE 0.45% 1000ML 1,000 ML IV SCH (10:45)
[2016-08-17] MEDS ORDERED: LORAZEPAM 1 MG TAB PO PRN (10:45)
[2016-08-17] MEDS ORDERED: NITROGLYCERIN 0.4 MG SL PER TAB CHARGE SL PRN (10:45)
[2016-08-17] MEDS ORDERED: INSULIN ASPART 100 UNITS/ML 3 ML PEN SC SCH (11:00)
[2016-08-17] MEDS ORDERED: GLUCOSE 10 TABS/TUBE PO PRN (12:00)
[2016-08-17] MEDS ORDERED: GLUCAGON FOR INJ 1 MG VIAL SQ PRN (12:00)
[2016-08-17] MEDS ORDERED: DEXTROSE 50% 50 ML SYR IV PRN (12:00)
[2016-08-17] MEDS ORDERED: GLUCOSE 40% GEL 15 GM TUBE PO PRN (12:00)
[2016-08-17] MEDS ORDERED: LEVOFLOXACIN CONSULT ACTIVE PRN (13:30)
--- NOTE | 2016-08-17 13:51 | DIAGNOSTIC IMAGING REPORT ---
CHEST CT WITHOUT CONTRAST CT DOSE: 1109.02 mGy.cm HISTORY: Abnormal chest x-ray. Assess new nodules seen on CXR. TECHNIQUE: Multiaxial CT images of the chest were performed without contrast. COMPARISON: Chest CT 08/02/2014. FINDINGS: Motion artifact results in suboptimal evaluation of the chest. No pneumothorax. Emphysema. Biapical pleural-parenchymal scarring persists. A 12 mm irregular density within the peripheral left upper lobe on image 87 remains unchanged. This favors an area of scarring. There are no new nodules at the lung bases. Therefore, the chest x-ray abnormality was likely due to the nipple shadows. Patchy densities at the bilateral lower lobes posteriorly favor mild dependent change. There is a new patchy airspace opacity within the superior segment of the left lower lobe. This favors a pneumonia. There is also a new irregular nodular density within the superior segment of the right lower lobe which measures 11 mm. Stable 4 mm nodule within the right upper lobe on image 77. Trace left pleural effusion. A small gallstone is present. The unenhanced liver and adrenal glands are unremarkable. Punctate calcified granuloma within the spleen. The heart is normal in size. Normal caliber thoracic aorta. No mediastinal or hilar lymphadenopathy. IMPRESSION: 1. A new patchy area of consolidation within the superior segment of the left lower lobe. This is consistent with a pneumonia. 2. There is a new 11 mm irregular nodular density within the superior segment of the right lower lobe. This is nonspecific and could represent an area of consolidation or a developing malignancy. One month chest CT follow up is recommended. 3. No nodules at the lung bases to correspond with the chest x-ray abnormality. 4. Emphysema. 5. Trace left pleural effusion. Electronically signed by: Aubrey Kaplan M.D. 08/17/2016 1:50 PM Dictated Date/Time: 08/17/2016 1:41 PM
[2016-08-17] MEDS ORDERED: METOPROLOL TARTRATE 1 MG/ML VIAL IV PRN (14:00)
[2016-08-17] MEDS: LEVALBUTEROL 1.25MG/3ML NEB INH PRN ×2 (14:04→19:12)
[2016-08-17 14:16] LABS: ARTERIAL BLD GAS O2 SATURATION 96.8 % (90-95); ARTERIAL BLOOD GAS BASE EXCESS 6.1 mEq/L (-9-1.8); ARTERIAL BLOOD GAS HCO3 30 mmol/L (19-24); ARTERIAL BLOOD GAS PO2 83 mm/Hg (80-95)
[2016-08-17 14:19] LABS: ALLEN TEST POS (POS); O2 ADMINISTRATION 40%
[2016-08-17] MEDS: HYDROCORTISONE IV 25 MG in SYRINGE 0 ML IV SCH ×2 (14:44→22:52)
[2016-08-17] MEDS: SODIUM CHLORIDE 0.9% 1000ML 1,000 ML IV SCH (14:44)
[2016-08-17] MEDS ORDERED: PIPERACILL/TAZOBAC CONSULT ACTIVE PRN (14:45)
[2016-08-17] MEDS ORDERED: PIPERACILL/TAZOBAC IV 3.375 GM in DEXTROSE 5% 100ML IV ONE (14:45)
[2016-08-17] MEDS ORDERED: VANCOMYCIN CONSULT ACTIVE PRN (14:45)
--- NOTE | 2016-08-17 14:48 | Pharmacy Progress Note ---
Pharmacy Antibiotic Consult Date of Service: Aug 17, 2016. Pharmacy Dosing Scope Pharmacy is consulted to initiate Vancomycin IV dosing therapy, order appropriate labs and adjust drug dose/frequency. Subjective The patient is a 86 year old male admitted on Aug 17, 2016 at 11:13. Objective Height (Feet): 5 Height (Inches): 10.00 Weight (Kilograms): 99.200 Lab Results (24hrs): Laboratory Tests Test 08/17/16 09:08 BUN/Creatinine Ratio 21.2 Blood Urea Nitrogen 38 mg/dl Creatinine 1.80 mg/dl White Blood Count 9.82 K/uL Red Blood Count 4.44 M/uL Hemoglobin 13.2 g/dL Hematocrit 41.8 % Mean Corpuscular Volume 94.1 fL Mean Corpuscular Hemoglobin 29.7 pg Mean Corpuscular Hemoglobin Concent 31.6 g/dl Platelet Count 137 K/uL Mean Platelet Volume 10.1 fL Micro Results: Item Value Date Time MRSA DNA Surveillance Screen Received 08/17/16 1255 Nasal Pending Blood Culture Received 08/17/16 0908 Blood Pending Urine Culture Received 08/17/16 0835 Urine,Catheterized Pending Blood Culture Received 08/17/16 0830 Blood Pending Recent Pertinent Medications Item Value Date Time Levofloxacin 750 150 ml @ 100 mls/hr 08/19/16 0900 mg/Prmx Q48H/IV Piperacillin Sod/ 115 ml @ 28.75 mls/hr 08/17/16 2200 Tazobactam Sod Q8H/IV 3.375 gm/Dextrose Assessment & Plan Assessment * 86 yo M admitted from SNF with urosepsis and HCAP (per provider), initiated on broad spectrum antibiotics: Vancomycin IV (MRSA coverage) + Zosyn and Levaquin IV(double pseudomonal coverage). Urine culture from 08/16/16 preliminarily growing pseudomonas. Blood cultures, new urine culture and MRSA nasal swab pending. Plan: * Discussed antibiotics with provider, continue broad spectrum until pseudomonas in urine has sensitivities. * Give Loading dose of Vancomycin 2400 mg IV X 1 (25 mg/kd) * Continue 1650 mg IV every 24 hours. * This dosing regimen and interval is taking into consideration that patient may get back to a Cr of 1.6 mg/dL. * Goal trough level estimate: between 15 - 20 mcg/mL. (sepsis) * A trough has been ordered for: 2 / 6 / 17 prior to the 1400 dose. This may be changed if renal function worsens or improves. Pharmacy will continue to follow and will adjust dose/frequency as necessary. Thank you
[2016-08-17] MEDS ORDERED: ACETAMINOPHEN 650 MG SUPP PR ONE (15:00)
[2016-08-17] MEDS ORDERED: VANCOMYCIN INJ 2,400 MG in SODIUM CHLORIDE 0.9% 500ML 500 ML IV ONE (15:00)
--- NOTE | 2016-08-17 15:50 | Urology Consultation ---
History General Date of Service: Aug 17, 2016. Chief Complaint: UTI, sepsis Primary Care Physician: Wilver Franco M.D. Pt seen a urologist before?: Yes If yes, why?: Dr. Miller for urinary retention, UTI History of Present Illness 86 yo male, known to our service, last seen by Dr. Miller in our office after seen in consultation for inpatient UTI in Jul 2016. Inpatient and outpatient notes reviewed. is present at bedside, lives [facility] with patient, provides the majority of history today. Patient resting fitfully with CPAP, provided Tylenol supp by nursing for fever. Per patient was at baseline health after being seen in our office. TOV was undergone at that time and patient was returned to [facility] on CIC regimen. This was uneventful and patient began to void spontaneously between catheterization, pleased with results. CIC was decreased in frequency and patient began to develop evidence of infection in the form of fevers and mental status changes. Per report outpatient UC&S shows Pseudomonas. Gomez has been replaced, urine clear concentrated yellow at this time. He is noted to remain on his maximal medical therapy with dutasteride and tamsulosin. consultation requested to assist with inpatient care. HPI - UTI Symptoms: mental status change Prior UTI History: number of UTI's (>2) History of Surgery: positive Laboratory Last 24 Hours Test 08/17/16 08:35 08/17/16 09:08 08/17/16 09:13 08/17/16 09:16 Urine Color YELLOW Urine Appearance CLEAR Urine pH 6.5 Urine Specific [place] 1.013 Urine Protein NEG Urine Glucose (UA) NEG Urine Ketones NEG Urine Occult Blood 1+ Urine Nitrite POS Urine Bilirubin NEG Urine Urobilinogen NEG Urine Leukocyte Esterase MODERATE Urine WBC (Auto) >30 /hpf Urine RBC (Auto) 0-4 /hpf Urine Hyaline Casts (Auto) 1-5 /lpf Urine Epithelial Cells (Auto) 0-5 /lpf Urine Bacteria (Auto) 2+ White Blood Count 9.82 K/uL Red Blood Count 4.44 M/uL Hemoglobin 13.2 g/dL Hematocrit 41.8 % Mean Corpuscular Volume 94.1 fL Mean Corpuscular Hemoglobin 29.7 pg Mean Corpuscular Hemoglobin Concent 31.6 g/dl Platelet Count 137 K/uL Mean Platelet Volume 10.1 fL RDW Standard Deviation 59.9 fL RDW Coefficient of Variation 17.5 % Nucleated RBC Absolute Count (auto) 0.08 K/uL Neutrophils % (Manual) 83.2 % Lymphocytes % (Manual) 8.8 % Monocytes % (Manual) 5.3 % Eosinophils % (Manual) 0.9 % Metamyelocytes % 1.8 % Nucleated Red Blood Cells % 0.8 % Neutrophils # (Manual) 8.17 K/uL Total Absolute Neutrophils 8.17 K/uL Lymphocytes # (Manual) 0.86 K/uL Total Absolute Lymphocytes 0.86 K/uL Monocytes # (Manual) 0.52 K/uL Eosinophils # (Manual) 0.09 K/uL Metamyelocytes # 0.18 K/uL Red Blood Cell Morphology Unremarkable Prothrombin Time 10.6 SECONDS Prothromb Time International Ratio 1.0 Activated Partial Thromboplast Time 23.3 SECONDS Partial Thromboplastin Ratio 0.9 Sodium Level 144 mmol/L Potassium Level 3.5 mmol/L Chloride Level 102 mmol/L Carbon Dioxide Level 33 mmol/L Anion Gap 9.0 mmol/L Blood Urea Nitrogen 38 mg/dl Creatinine 1.80 mg/dl Est Creatinine Clear Calc Drug Dose 34.8 ml/min Estimated GFR () 38.6 Estimated GFR (Non- 33.3 BUN/Creatinine Ratio 21.2 Random Glucose 70 mg/dl Calcium Level 8.9 mg/dl Total Bilirubin 0.6 mg/dl Direct Bilirubin 0.2 mg/dl Aspartate Amino Transf (AST/SGOT) 12 U/L Alanine Aminotransferase (ALT/SGPT) 27 U/L Alkaline Phosphatase 87 U/L Total Creatine Kinase 81 U/L Creatine Kinase MB 1.4 ng/ml Creatine Kinase MB Ratio 1.7 Total Protein 7.2 gm/dl Albumin 3.3 gm/dl Lipase 64 U/L Bedside Troponin I 0.040 ng/ml Bedside Lactic Acid Venous 1.92 mmol/L Test 08/17/16 13:55 08/17/16 14:00 08/17/16 15:00 Arterial Blood pH 7.50 Arterial Blood Partial Pressure CO2 38 mmHg Arterial Blood Partial Pressure O2 83 mm/Hg Arterial Blood HCO3 30 mmol/L Arterial Blood Oxygen Saturation 96.8 % Arterial Blood Base Excess 6.1 mEq/L Arterial Blood Gas Delivery 40% Ramos Test POS Lactic Acid Level 1.0 mmol/L Problem List Medical Problems: (1) Acute on chronic renal failure Status: Acute (2) Fever Status: Acute (3) Hypoglycemia Status: Acute (4) Influenza A Status: Acute (5) Reactive airway disease Status: Acute (6) Sepsis Status: Acute (7) UTI (lower urinary tract infection) Status: Acute Past History BPH, COPD, coronary artery disease, CVA/TIA/stroke, diverticulosis, high cholesterol, hypertension, renal disease, urinary tract infection, other ( urinary retention, atrial flutter, emphysema) Past Surgical History: cardiac catheterization Family History FH: heart disease Hypertension Social History Hx Tobacco Use In Past Year?: No (QUIT ABOUT 3 YRS AGO) Smoking: quit greater than 1 year Alcohol: no current use Marital status: Housing status: intermediate Occupation status: retired Immunizations History of Influenza Vaccine: Yes Influenza Vaccine Date: Jun 08, 2013 History of Tetanus Vaccine?: Unknown History of Pneumococcal: Yes History of Hepatitis B Vaccine: Unknown Allergies Coded Allergies: No Known Allergies (Unverified , 11/08/14) Medications Home Medications: Home Meds and Scripts Medications Dose Route/Sig Max Daily Dose Days Date Category Dose Instructions Levalbuterol Tartrate Hfa (Levalbuterol Tartrate) 45 Mcg/Act Aer 0.63 Q3H 08/17/16 Reported Mucinex D (Pseudoephedrine-Guaifenesin) 1 Tab Tab 1 Tab PO BID 10 08/17/16 Reported Systane (Polyethylene Glycol-Propylene) 1 Idania Idania 1 Drops OP QID 08/17/16 Reported Therems M (Multiple Vitamins W/ Minerals) 1 Tab Tab 08/17/16 Reported Nitrostat (Nitroglycerin) 0.4 Mg Tab 1 Tab SL UD 08/17/16 Reported Zaroxolyn (Metolazone) 2.5 Mg Tab 2.5 Mg PO PRN 08/17/16 Reported Lorazepam 1 Mg Tab 1 Mg PO DAILY PRN 07/21/16 Rx Oxycontin (Oxycodone HCl) 15 Mg Tabcr 15 Mg PO Q12 07/21/16 Rx Lidocaine 1 Patch Tdsy 1 Patch TD QAM 30 07/21/16 Rx to back pain Prednisone 20 Mg Tab 40 Mg PO DAILY 14 07/21/16 Rx x 3 days then 30mg daily x 3 days then 20mg daily until seen by Pulmonology in 1 week Novolog Flexpen (Insulin Aspart) 100 Units/Ml Inj 0 Units SC ACHS 30 07/21/16 Rx Lantus Solostar (Insulin Glargine) 100 Unit/Ml Inj 45 Unit SC QPM 30 07/21/16 Rx Fluticasone Propionate 50 Mcg/Act Spr 2 Sprays NA DAILY 30 07/21/16 Rx Atenolol 25 Mg Tab 12.5 Mg PO DAILY 30 07/21/16 Rx Advair Diskus 250-50 Mcg/Dose (Fluticasone Prop/Salmeterol) 14 Puff/1 Inhaler Aerp 1 Puff INH BID 07/21/16 Rx Tamsulosin HCl 0.4 Mg Cap 0.4 Mg PO HS 30 07/21/16 Rx Fiber Laxative (Calcium Polycarbophil) 625 Mg Tab 1 Tab PO DAILY 07/14/16 Reported Mag-Ox (Magnesium Oxide) 400 Mg Tab 400 Mg PO BID 07/14/16 Reported Gabapentin 600 Mg Tab 600 Mg PO BID 07/14/16 Reported Demadex (Torsemide) 20 Mg Tab 50 Mg PO 3XWK 07/14/16 Reported MON, WED, FRI ALONG WITH 100MG TO = 150MG Systane Ultra (Polyethylene Glycol-Propylene) 1 Idania Idania 1 Drops OPB BID 07/14/16 Reported Tylenol (Acetaminophen) 500 Mg Tab 1,000 Mg PO AMPM PRN 07/14/16 Reported Demadex (Torsemide) 100 Mg Tab 100 Mg PO DAILY 07/14/16 Reported Lipitor (Atorvastatin Calcium) 20 Mg Tab 20 Mg PO HS 05/27/15 Reported Klor-Con M20 (Potassium Chloride) 20 Meq Tabcr 2 Tab PO BID 05/27/15 Reported Bisac-Evac (Bisacodyl) 10 Mg Sup 10 Mg RE UNKNOWN 11/25/14 Reported NO BM IN 3 DAYS, GIVE IN AM ON DAY 4 Milk Of Magnesia (Magnesium Hydroxide) 30 Ml Susp 30 Ml PO UD PRN 11/25/14 Reported IF NO BM IN 2 DAYS, GIVE ON DAY THREE Aspirin Chewable (Aspirin) 81 Mg Chew 81 Mg PO DAILY 11/08/14 Reported Bisacodyl 5 Mg Tab 5 Mg PO BID 10/09/14 Reported Plavix (Clopidogrel Bisulfate) 75 Mg Tab 75 Mg PO DAILY 07/15/14 Reported Cortef (Hydrocortisone) 20 Mg Tab 40 Mg PO BID 04/21/14 Reported Miralax (Polyethylene Glycol 3350) 1 Pow Pow 17 Gm PO BID 11/16/13 Reported Colace (Docusate Sodium) 100 Mg Cap 100 Mg PO BID 11/16/13 Reported Florinef (Fludrocortisone Acetate) 0.1 Mg Tab 0.1 Mg PO DAILY 09/09/13 Reported Pepcid (Famotidine) 20 Mg Tab 20 Mg PO HS 09/09/13 Reported Avodart (Dutasteride) 0.5 Mg Cap 0.5 Mg PO DAILY 09/09/13 Reported Inpatient Medications: Current Inpatient Medications Medications (Trade) Dose Ordered Sig/Cole Route Start Time Stop Time Status Last Admin Dose Admin Heparin Sodium (Porcine) (Heparin Sq 5000 Unit/0.5ml) 5,000 unit Q12 SQ 08/17/16 21:00 09/16/16 20:59 Acetaminophen (Tylenol Tab) 650 mg Q4H PRN PO 08/17/16 10:45 09/16/16 10:44 Ondansetron HCl (Zofran Inj) 4 mg Q6H PRN IV 08/17/16 10:45 09/16/16 10:44 Polyethylene 17 gm 17 gm DAILY PRN PO 08/17/16 10:45 09/16/16 10:44 Levofloxacin 750 mg/Prmx 150 ml @ 100 mls/hr Q48H IV 08/19/16 09:00 08/27/16 10:44 Hydrocortisone Sodium Succinate/ Syringe (Solu-Cortef IV/ Syringe) 0.5 ml @ 4 mls/min Q8H IV 08/17/16 14:00 09/16/16 10:44 08/17/16 14:44 4 MLS/MIN Aspirin (Ecotrin Tab) 81 mg QAM PO 08/18/16 09:00 09/17/16 08:59 Atenolol (Tenormin Tab) 12.5 mg DAILY PO 08/18/16 09:00 09/17/16 08:59 Atorvastatin Calcium (Lipitor Tab) 20 mg HS PO 08/17/16 21:00 09/16/16 20:59 Bisacodyl (Dulcolax Tab) 5 mg BID PO 08/17/16 21:00 09/16/16 20:59 Bisacodyl (Dulcolax Supp) 10 mg DAILY PRN SC 08/17/16 10:45 09/16/16 10:44 Calcium Polycarbophil (Fibercon Tab) 1 tab DAILY PO 08/18/16 09:00 09/17/16 08:59 Clopidogrel Bisulfate (plAVix TAB) 75 mg DAILY PO 08/18/16 09:00 09/17/16 08:59 Docusate Sodium (coLACE CAP) 100 mg BID PO 08/17/16 21:00 09/16/16 20:59 Famotidine (Pepcid Tab) 20 mg HS PO 08/17/16 21:00 09/16/16 20:59 Fludrocortisone Acetate (Florinef Tab) 0.1 mg DAILY PO 08/18/16 09:00 09/17/16 08:59 Salmeterol Xinafoate/ Fluticasone (Advair Diskus 250/50 Inh) 1 puff BID INH 08/17/16 21:00 09/16/16 20:59 Fluticasone Propionate (Flonase Nasal Waucoma) 2 sprays DAILY NA 08/18/16 09:00 09/17/16 08:59 Gabapentin (Neurontin Tab) 600 mg BID PO 08/17/16 21:00 09/16/16 20:59 Insulin Glargine (Lantus Solostar Pen) 45 unit QPM SC 08/17/16 21:00 09/16/16 20:59 Lidocaine (Lidoderm Patch 5%) 1 patch QAM TD 08/18/16 09:00 09/17/16 08:59 Lorazepam (Ativan Tab) 1 mg DAILY PRN PO 08/17/16 10:45 09/16/16 10:44 Magnesium Oxide (Mag-Ox Tab) 400 mg BID PO 08/17/16 21:00 09/16/16 20:59 Multivitamins/ Minerals (Multivitamin W/ Minerals Tab) 1 tab DAILY PO 08/18/16 09:00 09/17/16 08:59 Nitroglycerin (Nitrostat Tab) 0.4 mg UD PRN SL 08/17/16 10:45 09/16/16 10:44 Oxycodone HCl (Oxycontin Tab) 15 mg Q12 PO 08/17/16 21:00 08/31/16 20:59 Polyethylene (Miralax Powder Packet) 17 gm BID PO 08/17/16 21:00 09/16/16 20:59 Tamsulosin HCl (Flomax Cap) 0.4 mg HS PO 08/17/16 21:00 09/16/16 20:59 Miscellaneous Information (Order Awaiting Action) 1 ea QS N/A 08/17/16 16:00 09/16/16 15:59 Miscellaneous Information (Order Awaiting Action) 1 ea QS N/A 08/17/16 16:00 09/16/16 15:59 Miscellaneous Information (Order Awaiting Action) 1 ea QS N/A 08/17/16 16:00 09/16/16 15:59 Miscellaneous (Remove Lidoderm Patch) 1 ea DAILY@21 N/A 08/17/16 21:00 09/16/16 20:59 Insulin Aspart (novoLOG ASPART) SLIDING SCALE If C... ACHS SC 08/17/16 16:30 09/16/16 16:29 Glucose (Glucose 40% Gel) 15-30 GRAMS 15 GRAMS... UD PRN PO 08/17/16 12:00 09/16/16 11:59 Glucose (Glucose Chew Tab) 4-8 Tablets 4 Tabl... UD PRN PO 08/17/16 12:00 09/16/16 11:59 Dextrose (Dextrose 50% 50ML Syringe) 25-50ML OF 50% DW IV FOR... UD PRN IV 08/17/16 12:00 09/16/16 11:59 Glucagon (Glucagon Inj) 1 mg UD PRN SQ 08/17/16 12:00 09/16/16 11:59 Prednisone 10 mg 10 mg DAILY PO 08/17/16 14:00 08/20/16 08:59 08/17/16 14:45 10 MG Acetaminophen/ Empty Bag (Ofirmev IV/ Empty Iv Bag 100ml) 65 ml @ 260 mls/hr Q6H PRN IV 08/17/16 13:15 09/16/16 13:14 Levofloxacin (Consult) 1 ea UD PRN N/A 08/17/16 13:30 09/16/16 13:29 Levalbuterol 1.25 mg 1.25 mg Q4H PRN INH 08/17/16 13:30 09/16/16 13:29 08/17/16 14:04 1.25 MG Sodium Chloride (Nss 1000ml) 1,000 ml @ 100 mls/hr Q10H IV 08/17/16 13:45 09/16/16 13:44 08/17/16 14:44 100 MLS/HR Metoprolol Tartrate (Lopressor Iv) 2.5 mg Q6 PRN IV 08/17/16 14:00 09/16/16 13:59 Morphine Sulfate (MoRPHine SULFATE INJ) 2 mg Q4 PRN IV 08/17/16 14:00 08/31/16 13:59 Finasteride (Proscar Tab) 5 mg QAM PO 08/18/16 09:00 09/17/16 08:59 Vancomycin HCl (Consult) 1 ea UD PRN N/A 08/17/16 14:45 09/16/16 14:44 Piperacillin Sod/ Tazobactam Sod 1 ea 1 ea UD PRN N/A 08/17/16 14:45 09/16/16 14:44 Lorazepam 0.5 mg/ Syringe 0.5 ml @ 0.5 mls/min Q6 PRN IV 08/17/16 14:45 09/16/16 14:44 Vancomycin HCl 2400 mg/Sodium Chloride 548 ml @ 200 mls/hr TODAY@1500 ONCE IV 08/17/16 15:00 08/17/16 17:44 Piperacillin Sod/ Tazobactam Sod 3.375 gm/Dextrose 115 ml @ 28.75 mls/ hr Q8H IV 08/17/16 22:00 08/24/16 21:59 Vancomycin HCl/ Sodium Chloride (Vancomycin Inj/ Nss 500ml) 533 ml @ 200 mls/hr Q24H IV 08/18/16 14:00 08/27/16 13:59 Review of Systems Review of Systems Constitutional: + chills, + fever Eyes: No double vision Neurological: No passing out, No seizures Endocrine: + tired/sluggish Gastrointestinal: No nausea, No vomiting Cardiovascular: No chest pain Respiratory: No coughing up blood Blood / Lymphatic: No swollen glands Ears / Nose / Throat: No hearing loss Psychologic / Mental: + trouble remembering Male : + infections, + see HPI, + urinary retention, + weak stream Physical Exam Vital Signs: Vital Signs Past 12 Hours Date Time Temp Pulse Resp B/P Pulse Ox O2 Delivery O2 Flow Rate FiO2 08/17/16 14:47 116 98 40 2/3/17 14:45 116 33 98 BiPAP/CPAP 08/17/16 14:37 39.2 65 16 104/60 95 BiPAP 08/17/16 11:53 39.5 120 20 104/58 92 Nasal Cannula 4.0 08/17/16 11:21 109 08/17/16 10:13 110 20 118/72 97 Nasal Cannula 4.0 08/17/16 09:39 96 18 133/75 95 Nasal Cannula 3.0 08/17/16 08:21 37.0 94 22 114/78 95 Room Air 08/17/16 08:15 98 08/17/16 08:10 96 Nasal Cannula 4.0 08/17/16 08:10 88 Room Air Physical Exam: General Appearance: + mild distress, + obese (using CPAP) ENT: hearing grossly normal Neck: no adenopathy Respiratory/Chest: + respiratory distress (mild SOB) Cardiovascular: no JVD Gastrointestinal: Abdomen: normal abdomen Bladder: normal bladder Renal: normal renal Liver: normal liver 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: + pertinent finding (somnolent) Skin: normal color Assessment & Plan Assessment & Plan A/P 86 yo female with urosepsis, retention. Care discussed with at length. Office cystoscopy demonstrated a minimally obstructive prostate despite trabeculation of the bladder and large residual consistent with a degree of detrusor failure. The need for indefinite drainage, ideally in the form of CIC was noted. It seems perhaps the patient's infectious difficulties coincided with the decrease in frequency of his CIC regimen. For now, would leave gomez in place. Continue culture specific antibiotics for at least 2 weeks for complex UTI. Patient was originally due to see Dr. Miller in Oct 2016 - will arrange for f/u in 2-3 weeks to discuss continuous churn buttermaker plan. Would leave gomez in place on DC from inpatient care. vocalizes good understanding of the treatment plan. Thank you for allowing us to participate in this patient's care. Please contact our service with any questions or concerns.
[2016-08-17 15:57] LABS: INFLUENZA A PCR Neg for Influ A (NEG); INFLUENZA B PCR Neg for Influ B (NEG)
[2016-08-17] MEDS: AVODART-ORDER AWAITING ACTION SCH (16:00)
[2016-08-17] MEDS: INSULIN ASPART 100 UNITS/ML 3 ML PEN SC SCH ×2 (16:30→20:48)
[2016-08-17] MEDS: MoRPHine SULFATE 2 MG/ML CARP IV PRN (16:38)
[2016-08-17] MEDS ORDERED: FLUDROCORTISONE ACETATE 0.1 MG TAB PO ONE (20:15)
[2016-08-17] MEDS: MAGNESIUM OXIDE 400 MG TAB PO SCH (20:46)
[2016-08-17] MEDS: OXYCODONE HCL 15 MG TABCR (OXYCONTIN) PO SCH (20:46)
[2016-08-17] MEDS: BISACODYL 5 MG TABEC PO SCH (20:46)
[2016-08-17] MEDS: POLYETHYLENE (MIRALAX) 17 GM PACK PO SCH (20:46)
[2016-08-17] MEDS: DOCUSATE SODIUM 100 MG CAP PO SCH (20:46)
[2016-08-17] MEDS: GABAPENTIN 600 MG TAB PO SCH (20:47)
[2016-08-17] MEDS: FLUTICASONE/SALMETEROL 250/50 (ADVAIR) 14 PUFF/1 INHALER INH SCH (20:48)
[2016-08-17] MEDS: HEPARIN SOD 5000 UNIT/0.5 ML CARP SQ SCH (20:58)
[2016-08-17] MEDS ORDERED: ATORVASTATIN 20 MG TAB PO SCH (21:00)
[2016-08-17] MEDS ORDERED: INSULIN GLARGINE SOLOSTAR 100 UNITS/ML 3 ML PEN SC SCH (21:00)
[2016-08-17] MEDS ORDERED: FAMOTIDINE 20 MG TAB PO SCH (21:00)
[2016-08-17] MEDS ORDERED: TAMSULOSIN HCL 0.4 MG CAP PO SCH (21:00)
[2016-08-17] MEDS ORDERED: HYDROCORTISONE 10 MG TAB PO SCH (21:00)
[2016-08-17] MEDS: PIPERACILL/TAZOBAC IV 3.375 GM in DEXTROSE 5% 100ML IV SCH (22:52)
[2016-08-18] VITALS (22 sets, daily range): BP systolic 82–121; BP diastolic 50–75; PULSE 71–103; TEMP 36.4–37.4; O2SAT 93–98
[2016-08-18] MEDS: SODIUM CHLORIDE 0.9% 1000ML 1,000 ML IV SCH ×3 (00:24→22:35)
[2016-08-18] MEDS: MoRPHine SULFATE 2 MG/ML CARP IV PRN (01:33)
[2016-08-18] MEDS: LEVALBUTEROL 1.25MG/3ML NEB INH PRN (03:47)
[2016-08-18] MEDS: PIPERACILL/TAZOBAC IV 3.375 GM in DEXTROSE 5% 100ML IV SCH ×3 (05:45→22:11)
[2016-08-18] MEDS: HYDROCORTISONE IV 25 MG in SYRINGE 0 ML IV SCH (05:45)
[2016-08-18 06:50] LABS: BASO % 0.1 %; BASO ABS # 0.01 K/uL (0-0.2); COMPLETE YES; EOS % 0.1 %; HEMATOCRIT 45.7 % (42-52); IG% 0.7 %; LYMPH % 6.3 %; LYMPH ABS # 0.54 K/uL (1.2-3.4); MEAN CELL VOLUME 96.4 fL (80-100); MEAN CORPUSCULAR HEMOGLOBIN 29.5 pg (25-34); MEAN CORPUSCULAR HGB CONC 30.6 g/dl (32-36); MEAN PLATELET VOLUME 10.4 fL (7.4-10.4); MONO % 2.9 %; NEUT % 89.9 %; PLATELET COUNT 151 K/uL (130-400); RED BLOOD COUNT 4.74 M/uL (4.7-6.1); WHITE BLOOD COUNT 8.53 K/uL (4.8-10.8)
[2016-08-18 07:24] LABS: BUN/CREATININE RATIO 15.8 (10-20); CALCIUM 8.5 mg/dl (8.5-10.1); CREATININE 2.2 mg/dl (0.60-1.40); MAGNESIUM 2.8 mg/dl (1.8-2.4); POTASSIUM 3.5 mmol/L (3.5-5.1)
[2016-08-18] MEDS: ACETAMINOPHEN IV 650 MG in EMPTY BAG 0 ML IV PRN ×2 (08:13→22:33)
[2016-08-18] MEDS: GABAPENTIN 600 MG TAB PO SCH (08:27)
[2016-08-18] MEDS: BISACODYL 5 MG TABEC PO SCH (08:28)
[2016-08-18] MEDS: DOCUSATE SODIUM 100 MG CAP PO SCH (08:28)
[2016-08-18] MEDS: POLYETHYLENE (MIRALAX) 17 GM PACK PO SCH ×2 (08:29→21:00)
[2016-08-18] MEDS: MAGNESIUM OXIDE 400 MG TAB PO SCH (08:29)
[2016-08-18] MEDS: FLUTICASONE/SALMETEROL 250/50 (ADVAIR) 14 PUFF/1 INHALER INH SCH ×2 (08:30→21:16)
[2016-08-18] MEDS: AVODART-ORDER AWAITING ACTION SCH ×3 (08:30→16:00)
[2016-08-18] MEDS: FLUTICASONE PROPIONATE NA SPR 16 GM BTL SCH (08:31)
[2016-08-18] MEDS: INSULIN ASPART 100 UNITS/ML 3 ML PEN SC SCH ×4 (08:32→21:20)
[2016-08-18] MEDS: HEPARIN SOD 5000 UNIT/0.5 ML CARP SQ SCH ×2 (08:35→21:21)
[2016-08-18] MEDS: LIDODERM (LIDOCAINE) PATCH 5% TD SCH (08:36)
[2016-08-18] MEDS ORDERED: CALCIUM POLYCARBOPHIL 1 TAB PO SCH (09:00)
[2016-08-18] MEDS: OXYCODONE HCL 15 MG TABCR (OXYCONTIN) PO SCH (09:00)
[2016-08-18] MEDS ORDERED: FINASTERIDE 5 MG TAB PO SCH (09:00)
[2016-08-18] MEDS ORDERED: ASPIRIN 81 MG ECTAB PO SCH (09:00)
[2016-08-18] MEDS ORDERED: FLUDROCORTISONE ACETATE 0.1 MG TAB PO SCH (09:00)
[2016-08-18] MEDS ORDERED: CEROVITE ADV FORMULA TAB PO SCH (09:00)
[2016-08-18] MEDS ORDERED: CLOPIDOGREL BISULFATE 75 MG TAB PO SCH (09:00)
[2016-08-18] MEDS ORDERED: HYDROCORTISONE IV 25 MG in SYRINGE 0 ML IV ONE (09:30)
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
[2016-08-18] MEDS: LORAZEPAM INJ 0.5 MG in SYRINGE 0.25 ML IV PRN ×2 (09:58→22:33)
--- NOTE | 2016-08-18 11:53 | Pulmonary Consultation ---
History General Date of Service: Aug 18, 2016. Stated Complaint: Urosepsis HPI The patient is a 86 year old male who presents to [facility] with complaints of Urosepsis. The patient's primary care provider is Wilver Franco M.D.. 86y/o male with significant PMHx including DMII, adrenal insufficiency, obesity , CAD s/p stent placement, PAF, CHF (diastolic), PVD, CKD stage III, chronic anemia, COPD/emphysema, aspiration PNA, GERD, BPH with urinary retention, chronic constipation, h/o CVA/TIA, presents with fevers and tremors which developed overnight. Urology noted office cyctoscopy showing minimal obstruction requiring CIC. Patient was too confused to answer any direct questions so all information has been obtained to the EMS system and/or his . Recent Admissions: 1) 07/07-: [facility] -urinary retention a -breathing difficulties possible pneumonia. 2) : [facility] - Influenza with associated patchy lung infiltrates Work-up 1. Urine: Haynes sensitive Pseudomonas 08/16/16 2. AB.50/38/83/30FiO2:40% 3. CXR: 08/17/2016: 2cm KATHY and 1.5cm LLL nodule vs. Infiltrate -07/20/16: not seen 4. Non-con CT thorax (08/17/16) compared to 08/02/14 CTA thorax - KATHY pleural based 11mm nodule, apical scaring - LB6 pleural based necrotizing/infiltrative 3.5cm mass - LLL pleural posterior dependent pleural thickening/atelectasis - RUL pleural thickening with clacification - RB2 10mm nodule - RB6 11mm nodule - RLL posterior dependent pleural thickening/atelectasis 5. MRSA Swab Negative Treatment: 1. Levofloxacin 750mg IV 2. Hydrocortisone 50mg Q8 3. Vancomycin 4. Florinef 0.1mg 5. Flonase 2puffs QD 6. Zosyn 7. Advair 250/50 8. Prednisone 10mg 9. Zopenex 1.25 Neb Q4 PRN 10. BiPAP: 10/5 FiO2: 40% Historian: spouse, EMS Review of Systems Patient is altered and unable to perform proper 12 point review of systems Past Medical History Past Medical History: (1) Anemia (2) Moderately Sever COPD ATS Criteria--(FEV1:54%--FEV1/FVC:39--08/24/13) - Advair Diskus 250-50 MCG/DOSE Inhalation - Fluticasone Propionate 50 MCG/ACT Nasal Suspension - Ipratropium-Albuterol Neb Q4 PRN (3) CAD (4) CVA (5) Essential hypertension (6) HTN (hypertension) (7) Hypercholesterolemia (8) Hyperparathyroidism (9) Hypotension (10) CAD/myocardial infarction/PTCA-stent (11) Peripheral vascular disease (12) TIA (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 (14) Adrenal Insufficiency - Fludrocortisone Acetate 0.1 MG (15) Obesity (16) PVD (17) CKD III (18) Aspiration PNA Past Medical History: BPH, COPD, coronary artery disease, CVA/TIA/stroke, diverticulosis, high cholesterol, hypertension, renal disease, urinary tract infection, other (urinary retention, atrial flutter, emphysema) Past Surgical History: (1) PTCA with stent Past Surgical History: cardiac catheterization Family History FH: heart disease Hypertension FH: heart disease Hypertension Social History Hx Tobacco Use In Past Year?: No (QUIT ABOUT 3 YRS AGO) Smoking Status: Former Smoker Alcohol: no current use Marital status: Housing status: intermediate Occupational Status: retired Immunizations History of Influenza Vaccine: Yes Influenza Vaccine Date: Jun 08, 2013 History of Tetanus Vaccine?: Unknown History of Pneumococcal: Yes History of Hepatitis B Vaccine: Unknown Allergies Coded Allergies: No Known Allergies (Unverified , 11/08/14) Current Medications Reported Home Medications Medications Dose Route/Sig Max Daily Dose Days Date Category Dose Instructions Levalbuterol Tartrate Hfa (Levalbuterol Tartrate) 45 Mcg/Act Aer 0.63 Q3H 08/17/16 Reported Mucinex D (Pseudoephedrine-Guaifenesin) 1 Tab Tab 1 Tab PO BID 10 08/17/16 Reported Systane (Polyethylene Glycol-Propylene) 1 Idania Idania 1 Drops OP QID 08/17/16 Reported Therems M (Multiple Vitamins W/ Minerals) 1 Tab Tab 08/17/16 Reported Nitrostat (Nitroglycerin) 0.4 Mg Tab 1 Tab SL UD 08/17/16 Reported Zaroxolyn (Metolazone) 2.5 Mg Tab 2.5 Mg PO PRN 08/17/16 Reported Lorazepam 1 Mg Tab 1 Mg PO DAILY PRN 07/21/16 Rx Oxycontin (Oxycodone HCl) 15 Mg Tabcr 15 Mg PO Q12 07/21/16 Rx Lidocaine 1 Patch Tdsy 1 Patch TD QAM 30 07/21/16 Rx to back pain Prednisone 20 Mg Tab 40 Mg PO DAILY 14 07/21/16 Rx x 3 days then 30mg daily x 3 days then 20mg daily until seen by Pulmonology in 1 week Novolog Flexpen (Insulin Aspart) 100 Units/Ml Inj 0 Units SC ACHS 30 07/21/16 Rx Lantus Solostar (Insulin Glargine) 100 Unit/Ml Inj 45 Unit SC QPM 30 07/21/16 Rx Fluticasone Propionate 50 Mcg/Act Spr 2 Sprays NA DAILY 30 07/21/16 Rx Atenolol 25 Mg Tab 12.5 Mg PO DAILY 30 07/21/16 Rx Advair Diskus 250-50 Mcg/Dose (Fluticasone Prop/Salmeterol) 14 Puff/1 Inhaler Aerp 1 Puff INH BID 07/21/16 Rx Tamsulosin HCl 0.4 Mg Cap 0.4 Mg PO HS 30 07/21/16 Rx Fiber Laxative (Calcium Polycarbophil) 625 Mg Tab 1 Tab PO DAILY 07/14/16 Reported Mag-Ox (Magnesium Oxide) 400 Mg Tab 400 Mg PO BID 07/14/16 Reported Gabapentin 600 Mg Tab 600 Mg PO BID 07/14/16 Reported Demadex (Torsemide) 20 Mg Tab 50 Mg PO 3XWK 07/14/16 Reported MON, WED, FRI ALONG WITH 100MG TO = 150MG Systane Ultra (Polyethylene Glycol-Propylene) 1 Idania Idania 1 Drops OPB BID 07/14/16 Reported Tylenol (Acetaminophen) 500 Mg Tab 1,000 Mg PO AMPM PRN 07/14/16 Reported Demadex (Torsemide) 100 Mg Tab 100 Mg PO DAILY 07/14/16 Reported Lipitor (Atorvastatin Calcium) 20 Mg Tab 20 Mg PO HS 05/27/15 Reported Klor-Con M20 (Potassium Chloride) 20 Meq Tabcr 2 Tab PO BID 05/27/15 Reported Bisac-Evac (Bisacodyl) 10 Mg Sup 10 Mg RE UNKNOWN 11/25/14 Reported NO BM IN 3 DAYS, GIVE IN AM ON DAY 4 Milk Of Magnesia (Magnesium Hydroxide) 30 Ml Susp 30 Ml PO UD PRN 11/25/14 Reported IF NO BM IN 2 DAYS, GIVE ON DAY THREE Aspirin Chewable (Aspirin) 81 Mg Chew 81 Mg PO DAILY 11/08/14 Reported Bisacodyl 5 Mg Tab 5 Mg PO BID 10/09/14 Reported Plavix (Clopidogrel Bisulfate) 75 Mg Tab 75 Mg PO DAILY 07/15/14 Reported Cortef (Hydrocortisone) 20 Mg Tab 40 Mg PO BID 04/21/14 Reported Miralax (Polyethylene Glycol 3350) 1 Pow 17 Gm PO BID 11/16/13 Reported Colace (Docusate Sodium) 100 Mg Cap 100 Mg PO BID 11/16/13 Reported Florinef (Fludrocortisone Acetate) 0.1 Mg Tab 0.1 Mg PO DAILY 09/09/13 Reported Pepcid (Famotidine) 20 Mg Tab 20 Mg PO HS 09/09/13 Reported Avodart (Dutasteride) 0.5 Mg Cap 0.5 Mg PO DAILY 09/09/13 Reported Physical Physical Exam Vital Signs: Date Time Temp Pulse Resp B/P Pulse Ox O2 Delivery O2 Flow Rate FiO2 08/18/16 11:24 101 95 35 08/18/16 11:21 36.8 85 16 90/50 93 BiPAP 08/18/16 07:41 37.3 96 20 98/64 95 BiPAP 30 08/18/16 07:35 93 98 40 08/18/16 07:15 37.0 98 16 111/57 08/18/16 05:01 37.4 103 18 110/70 08/18/16 04:41 95 BiPAP 08/18/16 04:10 BiPAP 08/18/16 03:48 77 20 93 BiPAP/CPAP 40 08/18/16 03:47 77 93 40 08/18/16 00:45 80 96 40 08/18/16 00:11 BiPAP 08/17/16 23:09 37.4 81 18 92/61 99 BiPAP 08/17/16 20:02 97 BiPAP 40 08/17/16 19:35 36.8 72 20 86/51 97 BiPAP 08/17/16 19:12 76 30 97 BiPAP/CPAP 40 08/17/16 19:09 78 97 40 08/17/16 16:58 36.8 08/17/16 16:00 98 BiPAP 40 08/17/16 14:47 116 98 40 08/17/16 14:45 116 33 98 BiPAP/CPAP 08/17/16 14:37 39.2 65 16 104/60 95 BiPAP 08/17/16 11:53 39.5 120 20 104/58 92 Nasal Cannula 4.0 General Appearance: mild distress Head: NORMOCEPHALIC, ATRAUMATIC Eyes: PERRLA, NO DISCHARGE, EOMI ENT: other (BiPAP mask is currently on unable to perform full ENT evaluation) Neck: NORMAL RANGE OF MOTION, NO TENDERNESS, NO STRIDOR Respiratory: accessory muscle use, rhonchi Cardiovasular: REGULAR RATE/RHYTHM, NORMAL S1S2, other (distant heart sounds unable to auscultate for murmurs rubs or gallops) Abdomen: NON TENDER, NORMAL BOWEL SOUNDS, NO REBOUND, NO MASSES Genitourinary - Male: EXTERNAL GENITALIA NORMAL Back: NORMAL INSPECTION, NO MIDLINE TENDERNESS, NO CVA TENDERNESS Upper Extremities: NO EDEMA, NO DEFORMITY, NORMAL ROM Lower Extremities: NO EDEMA, NO DEFORMITY, NORMAL ROM Pulses: carotid (R) (2+), carotid (L) (2+), dorsalis pedis (R) (1+), dorsalis pedis (L) (1+) Neuro: ALERT, ORIENTED x 3, NORMAL MOTOR EXAM Reflexes: biceps (R) (1+), bicpes (L) (1+) Babinski Testing: right (equivocal), left (equivocal) Psychiatric: other (altered) Diagnostics Labs Results Past 24 Hours Test 08/17/16 13:55 08/17/16 14:00 08/17/16 15:45 08/17/16 16:02 Range/Units Arterial Blood pH 7.50 7.35-7.45 Arterial Blood Partial Pressure CO2 38 35-46 mmHg Arterial Blood Partial Pressure O2 83 80-95 mm/Hg Arterial Blood HCO3 30 19-24 mmol/L Arterial Blood Oxygen Saturation 96.8 90-95 % Arterial Blood Base Excess 6.1 -9-1.8 mEq/L Arterial Blood Gas Delivery 40% Ramos Test POS POS Lactic Acid Level 1.0 0.4-2.0 mmol/L Influenza Type A (RT-PCR) Neg for Influ A NEG Influenza Type B (RT-PCR) Neg for Influ B NEG Troponin I 0.141 0-0.045 ng/ml Bedside Glucose 83 70-99 mg/dl Test 08/17/16 19:59 08/17/16 22:12 08/18/16 06:36 08/18/16 07:22 Range/Units Bedside Glucose 93 79 70-99 mg/dl Troponin I 0.143 0-0.045 ng/ml White Blood Count 8.53 4.8-10.8 K/uL Red Blood Count 4.74 4.7-6.1 M/uL Hemoglobin 14.0 14.0-18.0 g/dL Hematocrit 45.7 42-52 % Mean Corpuscular Volume 96.4 80-100 fL Mean Corpuscular Hemoglobin 29.5 25-34 pg Mean Corpuscular Hemoglobin Concent 30.6 32-36 g/dl Platelet Count 151 130-400 K/uL Mean Platelet Volume 10.4 7.4-10.4 fL Neutrophils (%) (Auto) 89.9 % Lymphocytes (%) (Auto) 6.3 % Monocytes (%) (Auto) 2.9 % Eosinophils (%) (Auto) 0.1 % Basophils (%) (Auto) 0.1 % Neutrophils # (Auto) 7.66 1.4-6.5 K/uL Lymphocytes # (Auto) 0.54 1.2-3.4 K/uL Monocytes # (Auto) 0.25 0.11-0.59 K/uL Eosinophils # (Auto) 0.01 0-0.5 K/uL Basophils # (Auto) 0.01 0-0.2 K/uL RDW Standard Deviation 63.5 36.4-46.3 fL RDW Coefficient of Variation 17.8 11.5-14.5 % Immature Granulocyte % (Auto) 0.7 % Immature Granulocyte # (Auto) 0.06 0.00-0.02 K/uL Nucleated RBC Absolute Count (auto) 0.03 0-0 K/uL Nucleated Red Blood Cells % 0.4 % Sodium Level 143 136-145 mmol/L Potassium Level 3.5 3.5-5.1 mmol/L Chloride Level 104 98-107 mmol/L Carbon Dioxide Level 28 21-32 mmol/L Anion Gap 11.0 3-11 mmol/L Blood Urea Nitrogen 35 7-18 mg/dl Creatinine 2.20 0.60-1.40 mg/dl Est Creatinine Clear Calc Drug Dose 28.5 ml/min Estimated GFR () 30.3 Estimated GFR (Non- 26.2 BUN/Creatinine Ratio 15.8 10-20 Random Glucose 95 70-99 mg/dl Calcium Level 8.5 8.5-10.1 mg/dl Magnesium Level 2.8 1.8-2.4 mg/dl Total Bilirubin 0.9 0.2-1 mg/dl Direct Bilirubin 0.3 0-0.2 mg/dl Aspartate Amino Transf (AST/SGOT) 27 15-37 U/L Alanine Aminotransferase (ALT/SGPT) 29 12-78 U/L Alkaline Phosphatase 87 45-117 U/L Total Protein 7.1 6.4-8.2 gm/dl Albumin 2.7 3.4-5.0 gm/dl Test 08/18/16 11:32 Range/Units Bedside Glucose 100 70-99 mg/dl Microbiology Results 08/17/16 MRSA DNA Surveillance Screen - Final, Complete Specimen Negative for MRSA by DNA Probe Diagnostic Radiology 3. CXR: 08/17/2016: 2cm KATHY and 1.5cm LLL nodule vs. Infiltrate -07/20/16: not seen 4. Non-con CT thorax (08/17/16) compared to 08/02/14 CTA thorax - KATHY pleural based 11mm nodule, apical scaring - LB6 pleural based necrotizing/infiltrative 3.5cm mass - LLL pleural posterior dependent pleural thickening/atelectasis - RUL pleural thickening with clacification - RB2 10mm nodule - RB6 11mm nodule - RLL posterior dependent pleural thickening/atelectasis EKG EKG: Sinus rhythm with PVCs, anterior fascicular block, right bundle branch block Impression Assessment and Plan 86-year-old gentleman admitted with pseudomonal urinary tract infection and hypoxemia: #1 Hypoxemia: Patient's hypoxemia secondary to chronic COPD with associated aspiration pneumonia with possible ARDS as current PaO2/FiO2 of 208. At this time continuing current antibiotics, steroids and placing patient on aspiration precautions/nothing by mouth would be the most beneficial. I did discuss this with the patient's hospitalist as well as and informed them of the tenuous nature of his current condition. Also agree with current BiPAP settings continue at this time. #2 COPD: Would transfer all oral medications to IV at this time initiating Solu- Medrol at 20 mg 3 times a day. #3 pulmonary nodules: Patient is new pulmonary nodules in the superior subsegment's of both lower lobes highly suggestive of aspiration pneumonia. If the patient does well he will have to be followed out in the next 6-8 weeks with repeat noncontrast CT for evaluation of resolution.
--- NOTE | 2016-08-18 12:25 | Progress Note ---
Subjective Date of Service: Aug 18, 2016. Subjective Pt evaluation today including: conversation w/ patient, chart review, lab review Pain: Denies Voiding: gomez catheter in place (urine ) 86 yo male admitted with urosepsis, likely pseudomonas species, at bedside. He is more alert and communicating today, still limited from a historical perspective. feels he is slowly improving. Afebrile since last seen, BP improving. Problem List Medical Problems: (1) Acute on chronic renal failure Status: Acute (2) Fever Status: Acute (3) Hypoglycemia Status: Acute (4) Influenza A Status: Acute (5) Reactive airway disease Status: Acute (6) Sepsis Status: Acute (7) UTI (lower urinary tract infection) Status: Acute Review of Systems Constitutional: + fever (improved over past 24 hours) Eyes: No worsening of vision ENT: No hearing loss Respiratory: + shortness of breath Abdomen: No nausea, No vomiting Male : + see HPI, No hematuria Neurologic: + memory loss Skin: No new/changing skin lesions Objective Vital Signs Date Time Temp Pulse Resp B/P Pulse Ox O2 Delivery O2 Flow Rate FiO2 08/18/16 11:24 101 95 35 08/18/16 11:21 36.8 85 16 90/50 93 BiPAP 08/18/16 07:41 37.3 96 20 98/64 95 BiPAP 30 08/18/16 07:35 93 98 40 08/18/16 07:15 37.0 98 16 111/57 08/18/16 05:01 37.4 103 18 110/70 08/18/16 04:41 95 BiPAP 08/18/16 04:10 BiPAP 08/18/16 03:48 77 20 93 BiPAP/CPAP 40 08/18/16 03:47 77 93 40 08/18/16 00:45 80 96 40 08/18/16 00:11 BiPAP 08/17/16 23:09 37.4 81 18 92/61 99 BiPAP 08/17/16 20:02 97 BiPAP 40 08/17/16 19:35 36.8 72 20 86/51 97 BiPAP 08/17/16 19:12 76 30 97 BiPAP/CPAP 40 08/17/16 19:09 78 97 40 08/17/16 16:58 36.8 08/17/16 16:00 98 BiPAP 40 08/17/16 14:47 116 98 40 08/17/16 14:45 116 33 98 BiPAP/CPAP 08/17/16 14:37 39.2 65 16 104/60 95 BiPAP Physical Exam General Appearance: WD/WN, + mild distress ENT: hearing grossly normal Neck: supple, no adenopathy Respiratory/Chest: + respiratory distress (mild, on CPAP) Abdomen: non tender, soft Skin: normal color Laboratory Results Last 24 Hours Test 08/17/16 13:55 08/17/16 14:00 08/17/16 15:45 08/17/16 16:02 Arterial Blood pH 7.50 Arterial Blood Partial Pressure CO2 38 mmHg Arterial Blood Partial Pressure O2 83 mm/Hg Arterial Blood HCO3 30 mmol/L Arterial Blood Oxygen Saturation 96.8 % Arterial Blood Base Excess 6.1 mEq/L Arterial Blood Gas Delivery 40% Ramos Test POS Lactic Acid Level 1.0 mmol/L Influenza Type A (RT-PCR) Neg for Influ A Influenza Type B (RT-PCR) Neg for Influ B Troponin I 0.141 ng/ml Bedside Glucose 83 mg/dl Test 08/17/16 19:59 08/17/16 22:12 08/18/16 06:36 08/18/16 07:22 Bedside Glucose 93 mg/dl 79 mg/dl Troponin I 0.143 ng/ml White Blood Count 8.53 K/uL Red Blood Count 4.74 M/uL Hemoglobin 14.0 g/dL Hematocrit 45.7 % Mean Corpuscular Volume 96.4 fL Mean Corpuscular Hemoglobin 29.5 pg Mean Corpuscular Hemoglobin Concent 30.6 g/dl Platelet Count 151 K/uL Mean Platelet Volume 10.4 fL Neutrophils (%) (Auto) 89.9 % Lymphocytes (%) (Auto) 6.3 % Monocytes (%) (Auto) 2.9 % Eosinophils (%) (Auto) 0.1 % Basophils (%) (Auto) 0.1 % Neutrophils # (Auto) 7.66 K/uL Lymphocytes # (Auto) 0.54 K/uL Monocytes # (Auto) 0.25 K/uL Eosinophils # (Auto) 0.01 K/uL Basophils # (Auto) 0.01 K/uL RDW Standard Deviation 63.5 fL RDW Coefficient of Variation 17.8 % Immature Granulocyte % (Auto) 0.7 % Immature Granulocyte # (Auto) 0.06 K/uL Nucleated RBC Absolute Count (auto) 0.03 K/uL Nucleated Red Blood Cells % 0.4 % Sodium Level 143 mmol/L Potassium Level 3.5 mmol/L Chloride Level 104 mmol/L Carbon Dioxide Level 28 mmol/L Anion Gap 11.0 mmol/L Blood Urea Nitrogen 35 mg/dl Creatinine 2.20 mg/dl Est Creatinine Clear Calc Drug Dose 28.5 ml/min Estimated GFR () 30.3 Estimated GFR (Non- 26.2 BUN/Creatinine Ratio 15.8 Random Glucose 95 mg/dl Calcium Level 8.5 mg/dl Magnesium Level 2.8 mg/dl Total Bilirubin 0.9 mg/dl Direct Bilirubin 0.3 mg/dl Aspartate Amino Transf (AST/SGOT) 27 U/L Alanine Aminotransferase (ALT/SGPT) 29 U/L Alkaline Phosphatase 87 U/L Total Protein 7.1 gm/dl Albumin 2.7 gm/dl Test 08/18/16 11:32 Bedside Glucose 100 mg/dl Assessment and Plan A/P 86 yo male with retention, improving urosepsis. Responding appropriately to antibiotics. Await final culture results. Continue gomez as previously discussed. Outpatient appointment moved up with Dr. Miller. Care d/w who vocalizes understanding of the treatment plan.
[2016-08-18] MEDS ORDERED: PANTOprazole INJ 80 MG in DEXTROSE 5% 100ML IV ONE (13:30)
[2016-08-18] MEDS ORDERED: METHYLPREDNISOLONE IV 20 MG in SYRINGE 0 ML IV SCH (14:00)
[2016-08-18] MEDS ORDERED: VANCOMYCIN INJ 1,650 MG in SODIUM CHLORIDE 0.9% 500ML 500 ML IV SCH (14:00)
[2016-08-18] MEDS: PANTOprazole INJ 40 MG in DEXTROSE 5% 100ML IV SCH ×2 (14:19→19:39)
[2016-08-18] MEDS ORDERED: HYDROCORTISONE IV 50 MG in SYRINGE 0 ML IV SCH (16:00)
[2016-08-18] MEDS: HYDROCORTISONE IV 100 MG in SYRINGE 0 ML IV SCH (16:39)
[2016-08-18] MEDS: INSULIN GLARGINE SOLOSTAR 100 UNITS/ML 3 ML PEN SC SCH (21:20)
[2016-08-19] VITALS (13 sets, daily range): BP systolic 112–172; BP diastolic 73–87; PULSE 62–109; TEMP 36.3–36.8; O2SAT 90–99
[2016-08-19] MEDS: HYDROCORTISONE IV 100 MG in SYRINGE 0 ML IV SCH ×3 (00:10→18:11)
[2016-08-19] MEDS: PANTOprazole INJ 40 MG in DEXTROSE 5% 100ML IV SCH ×3 (00:11→08:56)
[2016-08-19] MEDS: MoRPHine SULFATE 2 MG/ML CARP IV PRN ×3 (01:13→23:14)
[2016-08-19] MEDS: PIPERACILL/TAZOBAC IV 3.375 GM in DEXTROSE 5% 100ML IV SCH ×3 (05:57→22:15)
[2016-08-19 07:00] LABS: CALCIUM 8.7 mg/dl (8.5-10.1); CREATININE 1.8 mg/dl (0.60-1.40); POTASSIUM 2.9 mmol/L (3.5-5.1)
[2016-08-19 07:03] LABS: BASO % 0.2 %; BASO ABS # 0.01 K/uL (0-0.2); COMPLETE YES; HEMATOCRIT 34.8 % (42-52); IG% 0.6 %; LYMPH % 3.3 %; LYMPH ABS # 0.21 K/uL (1.2-3.4); MEAN CELL VOLUME 95.3 fL (80-100); MEAN CORPUSCULAR HEMOGLOBIN 29.3 pg (25-34); MEAN CORPUSCULAR HGB CONC 30.7 g/dl (32-36); MEAN PLATELET VOLUME 10.8 fL (7.4-10.4); MONO % 5.3 %; NEUT % 90.6 %; PLATELET COUNT 127 K/uL (130-400); RED BLOOD COUNT 3.65 M/uL (4.7-6.1); WHITE BLOOD COUNT 6.39 K/uL (4.8-10.8)
[2016-08-19] MEDS ORDERED: SODIUM CHLOR 0.45% + 20MEQ KCL 1,000 ML IV SCH (07:45)
[2016-08-19] MEDS: AVODART-ORDER AWAITING ACTION SCH ×3 (07:53→18:11)
[2016-08-19] MEDS: FLUTICASONE PROPIONATE NA SPR 16 GM BTL SCH (07:54)
[2016-08-19] MEDS: LIDODERM (LIDOCAINE) PATCH 5% TD SCH (07:54)
[2016-08-19] MEDS: POLYETHYLENE (MIRALAX) 17 GM PACK PO SCH (07:55)
[2016-08-19] MEDS: POTASSIUM CHLR 10 MEQ / WTR 10 MEQ in PREMIXED WATER 100 ML IV SCH ×6 (08:06→21:01)
[2016-08-19] MEDS: FLUTICASONE/SALMETEROL 250/50 (ADVAIR) 14 PUFF/1 INHALER INH SCH ×2 (08:06→21:01)
[2016-08-19] MEDS: HEPARIN SOD 5000 UNIT/0.5 ML CARP SQ SCH ×2 (08:09→21:00)
[2016-08-19] MEDS: ACETAMINOPHEN IV 650 MG in EMPTY BAG 0 ML IV PRN (08:45)
[2016-08-19] MEDS: INSULIN ASPART 100 UNITS/ML 3 ML PEN SC SCH ×4 (08:55→21:07)
[2016-08-19] MEDS ORDERED: LEVOFLOXACIN / D5W 750 MG in PREMIXED IN D5W 150 ML IV SCH (09:00)
[2016-08-19] MEDS ORDERED: PANTOprazole INJ 40 MG in SYRINGE 0 ML IV SCH (11:00)
--- NOTE | 2016-08-19 12:18 | Hospitalist Progress Note ---
Hospitalist Progress Note Date of Service Aug 19, 2016. Subjective Pt evaluation today including: conversation w/ patient, conversation w/ family , physical exam, chart review, lab review, review of studies, conversation w/ sales and leasing consultant (Matty), review of inpatient medication list Voiding: gomez catheter in place Pt much improved today, was just weaned off BiPAP but after sitting up to side of bed is quite tachypneic but recovered within a few min. He is making urine. Pulm saw yesterday and suspected aspiration PNA and recommended NPO, no po meds. Today Speech eval done and did ok with thin liquids at bedside but will need Video swallow on Sat. Constitutional: No fever Respiratory: + dyspnea on exertion, + shortness of breath Cardiovascular: No chest pain Abdomen: No pain All Other Systems: Reviewed and Negative Objective Vital Signs Date Time Temp Pulse Resp B/P Pulse Ox O2 Delivery O2 Flow Rate FiO2 08/19/16 08:00 95 Nasal Cannula 4.0 08/19/16 07:35 68 98 35 08/19/16 07:33 36.4 79 22 112/73 90 BiPAP 08/19/16 04:17 BiPAP 08/19/16 03:43 36.3 62 18 116/73 97 BiPAP 08/19/16 02:40 80 94 35 08/19/16 00:43 BiPAP 08/18/16 23:06 36.4 83 24 121/75 93 08/18/16 23:04 36.4 83 24 121/75 93 08/18/16 22:14 73 95 35 08/18/16 20:08 98 BiPAP 35 08/18/16 18:59 82 98 35 08/18/16 18:58 36.4 75 16 99/64 98 BiPAP 08/18/16 16:00 95 BiPAP 30 08/18/16 15:03 37.0 71 16 92/56 94 BiPAP 08/18/16 14:11 79 97 35 08/18/16 12:00 98 BiPAP 30 08/18/16 11:24 101 95 35 08/18/16 11:21 36.8 85 16 90/50 93 BiPAP Physical Exam General Appearance: WD/WN, + mild distress Eyes: normal inspection, sclerae normal ENT: hearing grossly normal Respiratory/Chest: + respiratory distress (mild, tachypneic with sitting up to side of bed), + crackles (at bases of lungs to mid lung bilat) Cardiovascular: + irregularly irregular (with normal rate) Abdomen: normal bowel sounds, non tender, soft Extremities: non-tender, no pedal edema, no calf tenderness 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: alert Skin: normal color, no rash Laboratory Results Last 24 Hours Test 08/18/16 11:32 08/18/16 16:42 08/18/16 21:07 08/19/16 06:17 Bedside Glucose 100 mg/dl 169 mg/dl 184 mg/dl White Blood Count 6.39 K/uL Red Blood Count 3.65 M/uL Hemoglobin 10.7 g/dL Hematocrit 34.8 % Mean Corpuscular Volume 95.3 fL Mean Corpuscular Hemoglobin 29.3 pg Mean Corpuscular Hemoglobin Concent 30.7 g/dl Platelet Count 127 K/uL Mean Platelet Volume 10.8 fL Neutrophils (%) (Auto) 90.6 % Lymphocytes (%) (Auto) 3.3 % Monocytes (%) (Auto) 5.3 % Eosinophils (%) (Auto) 0.0 % Basophils (%) (Auto) 0.2 % Neutrophils # (Auto) 5.79 K/uL Lymphocytes # (Auto) 0.21 K/uL Monocytes # (Auto) 0.34 K/uL Eosinophils # (Auto) 0.00 K/uL Basophils # (Auto) 0.01 K/uL RDW Standard Deviation 60.8 fL RDW Coefficient of Variation 17.4 % Immature Granulocyte % (Auto) 0.6 % Immature Granulocyte # (Auto) 0.04 K/uL Sodium Level 148 mmol/L Potassium Level 2.9 mmol/L Chloride Level 109 mmol/L Carbon Dioxide Level 29 mmol/L Anion Gap 10.0 mmol/L Blood Urea Nitrogen 31 mg/dl Creatinine 1.80 mg/dl Est Creatinine Clear Calc Drug Dose 34.8 ml/min Estimated GFR () 38.6 Estimated GFR (Non- 33.3 BUN/Creatinine Ratio 17.0 Random Glucose 178 mg/dl Calcium Level 8.7 mg/dl Test 08/19/16 07:24 Bedside Glucose 177 mg/dl Assessment and Plan 86 yo M with PMHx including DMII, adrenal insufficiency, obesity, CAD s/p stent placement, HTN, dyslipidemia, PAF, CHF, PVD, CKD stage III, chronic anemia, COPD /emphysema, aspiration PNA, GERD, BPH with urinary retention, chronic constipation, h/o CVA/TIA, admitted with fever, UTI, sepsis, and acute on chronic hypoxemic respiratory failure. He notably has adrenal insufficiency and BP has been low. Lactate 1.92 on admission--> repeat 1.0 after IVFs *Pseudomonas UTI sensitive to FQs, Multilobar PNA/HAP/Aspiration PNA, Acute/ Chronic hypoxemic respiratory failure, Severe Sepsis. BPs low with adrenal insufficiency despite HC 25 IV q8. On broad spectrum abx, received IVFs. Flu swab negative. Ur cx from outpt on 08/16 with Pseudomonas. Pulm saw and thinks has chronic aspiration. Made NPO and Speech eval done. Ok for some liquids today as per Speech. Was on broad spectrum abx with Zosyn, Levaquin, Zosyn x 2 days. -d/c Levaquin after today's dose, d/c Vanco, and continue Zosyn (day 3) to cover for aspiration PNA and UTI - Follow BCxs repeated in ED on 08/17 - stop IVFs to 75 mls/hr today due to history of CHF and crackles on exam -increase stress dosed steroids to HC IV to 100 mg q8 for BP support as well as COPD and BP improving -Video swallow Saturday - Urology consult for recent indwelling gomez cath placement--> Urol recommends to continue terminologist Gomez for now *Severe COPD, Acute on Chronic hypoxemic respiratory failure, lung nodule/ abnormal CT scan, HAP: ABG 7.5/38/83 on 40% O2, acute resp alkalosis from sepsis , serum HCO3 33 on admit so likely chronic compensated met alkalosis in compensation for chronic hypercarbia as well. CXR 2/3: There is a new 2 cm irregular opacity within left upper lobe and 2 and basilar nodules. Given the recent change this favors an infectious process. Chest CT 2/3 showed: 1. A new patchy area of consolidation within the superior segment of the left lower lobe. This is consistent with a pneumonia. 2. There is a new 11 mm irregular nodular density within the superior segment of the right lower lobe. This is nonspecific and could represent an area of consolidation or a developing malignancy. One month chest CT follow up is recommended. 3. No nodules at the lung bases to correspond with the chest x-ray abnormality. 4. Emphysema. 5. Trace left pleural effusion. 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 1.8 upon admission -avoid nephrotoxins -renally dose meds -follow labs -replace KCl today BPH w/ urinary retention- - Removed 600 mL with straight cath in the ED - on Avodart at home, not formulary here-->on finasteride while here and switch back to Avodart upon d/c (but po meds on hold currently anyway) - cont Flomax but careful with hypotension-will hold -Urol consulted and recommend indwelling Gomez HTN/CAD/acute on chronic diastolic CHF/PAF, Demand ischemia with mildly elevated trop in setting of severe sepsis, not NSTEMI, ECGs no acute ischemia. PAF with rate controlled now -holding atenolol with holding parameters for SBP < 100 and DBP < 60. - holding ASA, Plavix, statin -restart when able - holding torsemide Resume 100 mg daily once improved, takes 150 mg MWF normally. -follow I/Os, daily weights, renal function -chest pain likely pleuritic and is improving -give IV lasix today x 1 as BP improved from sepsis Constipation, chronic pain left hip from PHN-improved, on chronic pain meds, -holding oxycodone, gabapentin, bowel regimen, -continue Lidoderm patch DVT ppx: heparin SQ, Disposition: From [facility], to assist with discharge planning DNR/DNI reaffirmed with patient and at bedside, but is ok with NIV/BiPAP, pressors Back to [facility] when stable, expect at least 2-3 day stay
[2016-08-19] MEDS ORDERED: FUROSEMIDE INJ 40 MG in SYRINGE 0 ML IV ONE (13:00)
--- NOTE | 2016-08-19 14:04 | Progress Note ---
Subjective Date of Service: Aug 19, 2016. Subjective Pt evaluation today including: conversation w/ patient, physical exam, chart review, lab review, review of inpatient medication list Pain: R arm PO Intake: Swallowing eval pending Voiding: gomez catheter in place (urine clear) 86 yo male with UTI and MS changes, improving. He is conversant and off BiPAP today, pleasant mood. No specific complaints, events and previous discussion with his reviewed. Hospitalist notes reviewed as well. Problem List Medical Problems: (1) Acute on chronic renal failure Status: Acute (2) Fever Status: Acute (3) Hypoglycemia Status: Acute (4) Influenza A Status: Acute (5) Reactive airway disease Status: Acute (6) Sepsis Status: Acute (7) UTI (lower urinary tract infection) Status: Acute Review of Systems Constitutional: No sweats Eyes: No worsening of vision ENT: No hearing loss Respiratory: + shortness of breath Abdomen: No nausea, No vomiting Male : + see HPI, No hematuria Neurologic: + memory loss, No weakness Psychiatric: No depression symptoms Skin: No new/changing skin lesions Objective Vital Signs Date Time Temp Pulse Resp B/P Pulse Ox O2 Delivery O2 Flow Rate FiO2 08/19/16 11:51 36.3 109 22 121/78 92 Nasal Cannula 4.0 08/19/16 08:00 95 Nasal Cannula 4.0 08/19/16 07:35 68 98 35 08/19/16 07:33 36.4 79 22 112/73 90 BiPAP 08/19/16 04:17 BiPAP 08/19/16 03:43 36.3 62 18 116/73 97 BiPAP 08/19/16 02:40 80 94 35 08/19/16 00:43 BiPAP 08/18/16 23:06 36.4 83 24 121/75 93 08/18/16 23:04 36.4 83 24 121/75 93 08/18/16 22:14 73 95 35 08/18/16 20:08 98 BiPAP 35 08/18/16 18:59 82 98 35 08/18/16 18:58 36.4 75 16 99/64 98 BiPAP 08/18/16 16:00 95 BiPAP 30 08/18/16 15:03 37.0 71 16 92/56 94 BiPAP 08/18/16 14:11 79 97 35 Physical Exam General Appearance: WD/WN, + mild distress (mild SOB, improved) ENT: hearing grossly normal Neck: supple, no adenopathy Respiratory/Chest: no respiratory distress, no accessory muscle use Cardiovascular: no JVD Abdomen: non tender, soft Skin: normal color Laboratory Results Last 24 Hours Test 08/18/16 16:42 08/18/16 21:07 08/19/16 06:17 08/19/16 07:24 Bedside Glucose 169 mg/dl 184 mg/dl 177 mg/dl White Blood Count 6.39 K/uL Red Blood Count 3.65 M/uL Hemoglobin 10.7 g/dL Hematocrit 34.8 % Mean Corpuscular Volume 95.3 fL Mean Corpuscular Hemoglobin 29.3 pg Mean Corpuscular Hemoglobin Concent 30.7 g/dl Platelet Count 127 K/uL Mean Platelet Volume 10.8 fL Neutrophils (%) (Auto) 90.6 % Lymphocytes (%) (Auto) 3.3 % Monocytes (%) (Auto) 5.3 % Eosinophils (%) (Auto) 0.0 % Basophils (%) (Auto) 0.2 % Neutrophils # (Auto) 5.79 K/uL Lymphocytes # (Auto) 0.21 K/uL Monocytes # (Auto) 0.34 K/uL Eosinophils # (Auto) 0.00 K/uL Basophils # (Auto) 0.01 K/uL RDW Standard Deviation 60.8 fL RDW Coefficient of Variation 17.4 % Immature Granulocyte % (Auto) 0.6 % Immature Granulocyte # (Auto) 0.04 K/uL Sodium Level 148 mmol/L Potassium Level 2.9 mmol/L Chloride Level 109 mmol/L Carbon Dioxide Level 29 mmol/L Anion Gap 10.0 mmol/L Blood Urea Nitrogen 31 mg/dl Creatinine 1.80 mg/dl Est Creatinine Clear Calc Drug Dose 34.8 ml/min Estimated GFR () 38.6 Estimated GFR (Non- 33.3 BUN/Creatinine Ratio 17.0 Random Glucose 178 mg/dl Calcium Level 8.7 mg/dl Test 08/19/16 11:25 Bedside Glucose 161 mg/dl Assessment and Plan A/P 86 yo male with urinary retention retention, improving urosepsis, respiratory and mental status. Responding appropriately to antibiotics. Pansensitive Pseudomonas save Aztreonam. Consider conversion to oral antibiotic eg. Cipro, Rx x 2 weeks. Will leave gomez in place, arrange for outpatient visit with Dr. Miller. Doing well, will sign off. Thank you for allowing us to participate in this patient's care. Please contact our service as needed with any questions or concerns.
[2016-08-19 15:50] LABS: CALCIUM 8.9 mg/dl (8.5-10.1); CREATININE 1.6 mg/dl (0.60-1.40); POTASSIUM 3.4 mmol/L (3.5-5.1)
--- NOTE | 2016-08-19 16:06 | Pulmonology Progress Note ---
Pulmonary Progress Note Date of Service Aug 19, 2016. Attending Stanford Herrera Subjective Patient is much improved over the last 24 hours. He notes MCCOY but minimal productive cough at this time. Objective Patient is coherent and able to complete full sentences without signs of increased WOB VS: reviewed and stable on 4L nc I/O: + 3.3L RESP: bilateral crackles greatest at the basis Assessment & Plan 86-year-old gentleman admitted with pseudomonal urinary tract infection and hypoxemia: #1 Hypoxemia: chronic COPD, aspiration pneumonia. -continuing current antibiotics -steroids - Suggest we obtain an aspiration evaluation via speech pathology - BiPAP: while sleeping at this time and as needed. Can re-evaluate on a daily basis #2 COPD: Would transfer all oral medications to IV at this time initiating Solu- Medrol at 20 mg 3 times a day. #3 pulmonary nodules: Patient is new pulmonary nodules in the superior subsegment's of both lower lobes highly suggestive of aspiration pneumonia. If the patient does well he will have to be followed out in the next 6-8 weeks with repeat noncontrast CT for evaluation of resolution. Data Medications: Current Inpatient Medications Medications (Trade) Dose Ordered Sig/Cole Route Start Time Stop Time Status Last Admin Dose Admin Heparin Sodium (Porcine) (Heparin Sq 5000 Unit/0.5ml) 5,000 unit Q12 SQ 08/17/16 21:00 09/16/16 20:59 08/19/16 08:09 5,000 UNIT Ondansetron HCl (Zofran Inj) 4 mg Q6H PRN IV 08/17/16 10:45 09/16/16 10:44 Polyethylene (Miralax Powder Packet) 17 gm DAILY PRN PO 08/17/16 10:45 09/16/16 10:44 Aspirin (Ecotrin Tab) 81 mg QAM PO 08/18/16 09:00 09/17/16 08:59 Future Hold 08/18/16 08:31 81 MG Atenolol (Tenormin Tab) 12.5 mg DAILY PO 08/18/16 09:00 09/17/16 08:59 Future Hold Atorvastatin Calcium (Lipitor Tab) 20 mg HS PO 08/17/16 21:00 09/16/16 20:59 Future Hold 08/17/16 20:47 20 MG Bisacodyl (Dulcolax Tab) 5 mg BID PO 08/17/16 21:00 09/16/16 20:59 Future Hold 08/18/16 08:28 5 MG Bisacodyl (Dulcolax Supp) 10 mg DAILY PRN IN 08/17/16 10:45 09/16/16 10:44 Calcium Polycarbophil (Fibercon Tab) 1 tab DAILY PO 08/18/16 09:00 09/17/16 08:59 Future Hold 08/18/16 08:27 1 TAB Clopidogrel Bisulfate (plAVix TAB) 75 mg DAILY PO 08/18/16 09:00 09/17/16 08:59 Future Hold 08/18/16 08:28 75 MG Docusate Sodium (coLACE CAP) 100 mg BID PO 08/17/16 21:00 09/16/16 20:59 Future Hold 08/18/16 08:28 100 MG Famotidine (Pepcid Tab) 20 mg HS PO 08/17/16 21:00 09/16/16 20:59 Future Hold 08/17/16 20:46 20 MG Fludrocortisone Acetate (Florinef Tab) 0.1 mg DAILY PO 08/18/16 09:00 09/17/16 08:59 Future Hold 08/18/16 08:30 0.1 MG Salmeterol Xinafoate/ Fluticasone (Advair Diskus 250/50 Inh) 1 puff BID INH 08/17/16 21:00 09/16/16 20:59 08/19/16 08:06 1 PUFF Fluticasone Propionate (Flonase Nasal [place]) 2 sprays DAILY NA 08/18/16 09:00 09/17/16 08:59 Gabapentin (Neurontin Tab) 600 mg BID PO 08/17/16 21:00 09/16/16 20:59 Future Hold 08/18/16 08:27 600 MG Lidocaine (Lidoderm Patch 5%) 1 patch QAM TD 08/18/16 09:00 09/17/16 08:59 08/19/16 07:54 1 PATCH Lorazepam (Ativan Tab) 1 mg DAILY PRN PO 08/17/16 10:45 09/16/16 10:44 Future Hold Magnesium Oxide (Mag-Ox Tab) 400 mg BID PO 08/17/16 21:00 09/16/16 20:59 Future Hold 08/18/16 08:29 400 MG Multivitamins/ Minerals (Multivitamin W/ Minerals Tab) 1 tab DAILY PO 08/18/16 09:00 09/17/16 08:59 Future Hold Nitroglycerin (Nitrostat Tab) 0.4 mg UD PRN SL 08/17/16 10:45 09/16/16 10:44 Oxycodone HCl (Oxycontin Tab) 15 mg Q12 PO 08/17/16 21:00 08/31/16 20:59 Future Hold 08/17/16 20:46 15 MG Tamsulosin HCl (Flomax Cap) 0.4 mg HS PO 08/17/16 21:00 09/16/16 20:59 Future Hold 08/17/16 20:47 0.4 MG Miscellaneous Information (Order Awaiting Action) 1 ea QS N/A 08/17/16 16:00 09/16/16 15:59 Miscellaneous Information (Order Awaiting Action) 1 ea QS N/A 08/17/16 16:00 09/16/16 15:59 08/18/16 16:19 1 EA Miscellaneous Information (Order Awaiting Action) 1 ea QS N/A 08/17/16 16:00 09/16/16 15:59 Miscellaneous (Remove Lidoderm Patch) 1 ea DAILY@21 N/A 08/17/16 21:00 09/16/16 20:59 08/18/16 21:16 1 EA Insulin Aspart (novoLOG ASPART) SLIDING SCALE If C... ACHS SC 08/17/16 16:30 09/16/16 16:29 08/19/16 12:40 1 UNITS Glucose (Glucose 40% Gel) 15-30 GRAMS 15 GRAMS... UD PRN PO 08/17/16 12:00 09/16/16 11:59 Glucose (Glucose Chew Tab) 4-8 Tablets 4 Tabl... UD PRN PO 08/17/16 12:00 09/16/16 11:59 Dextrose (Dextrose 50% 50ML Syringe) 25-50ML OF 50% DW IV FOR... UD PRN IV 08/17/16 12:00 09/16/16 11:59 Glucagon (Glucagon Inj) 1 mg UD PRN SQ 08/17/16 12:00 09/16/16 11:59 Prednisone 10 mg 10 mg DAILY PO 08/17/16 14:00 08/20/16 08:59 Future Hold 08/18/16 08:28 10 MG Acetaminophen/ Empty Bag (Ofirmev IV/ Empty Iv Bag 100ml) 65 ml @ 260 mls/hr Q6H PRN IV 08/17/16 13:15 09/16/16 13:14 08/19/16 08:45 260 MLS/HR Levalbuterol (Xopenex 1.25MG/ 3ML Neb) 1.25 mg Q4H PRN INH 08/17/16 13:30 09/16/16 13:29 08/18/16 03:47 1.25 MG Metoprolol Tartrate (Lopressor Iv) 2.5 mg Q6 PRN IV 08/17/16 14:00 09/16/16 13:59 Finasteride (Proscar Tab) 5 mg QAM PO 08/18/16 09:00 09/17/16 08:59 Future Hold Piperacillin Sod/ Tazobactam Sod 1 ea 1 ea UD PRN N/A 08/17/16 14:45 09/16/16 14:44 Lorazepam 0.5 mg/ Syringe 0.5 ml @ 0.5 mls/min Q6 PRN IV 08/17/16 14:45 09/16/16 14:44 08/18/16 22:33 0.5 MLS/MIN Piperacillin Sod/ Tazobactam Sod/ Dextrose (Zosyn Iv/D5 100ml) 115 ml @ 28.75 mls/ hr Q8H IV 08/17/16 22:00 08/24/16 21:59 08/19/16 14:38 28.75 MLS/HR Insulin Glargine (Lantus Solostar Pen) 40 unit QPM SC 08/18/16 21:00 09/17/16 20:59 08/18/16 21:20 40 UNIT Morphine Sulfate 2 mg 2 mg Q2H PRN IV 08/18/16 14:00 09/01/16 13:59 08/19/16 01:13 2 MG Hydrocortisone Sodium Succinate 100 mg/Syringe 2 ml @ 4 mls/min Q8H IV 08/18/16 16:00 09/17/16 15:59 08/19/16 07:53 4 MLS/MIN Pantoprazole Sodium/Syringe (Protonix Inj/ Syringe) 10 ml @ 5 mls/min DAILY@11 IV 08/20/16 11:00 09/19/16 10:59 I & O: 24-Hour Column 08/19/16 07:59 Intake Total 3551 ml Output Total 1225 ml Balance 2326 ml Vital Signs: Date Time Temp Pulse Resp B/P Pulse Ox O2 Delivery O2 Flow Rate FiO2 08/19/16 14:50 36.3 83 20 138/82 91 Nasal Cannula 5.0 08/19/16 12:00 92 Nasal Cannula 5.0 08/19/16 11:51 36.3 109 22 121/78 92 Nasal Cannula 4.0 08/19/16 08:00 95 Nasal Cannula 4.0 08/19/16 07:35 68 98 35 08/19/16 07:33 36.4 79 22 112/73 90 BiPAP 08/19/16 04:17 BiPAP 08/19/16 03:43 36.3 62 18 116/73 97 BiPAP 08/19/16 02:40 80 94 35 08/19/16 00:43 BiPAP 08/18/16 23:06 36.4 83 24 121/75 93 08/18/16 23:04 36.4 83 24 121/75 93 08/18/16 22:14 73 95 35 08/18/16 20:08 98 BiPAP 35 08/18/16 18:59 82 98 35 08/18/16 18:58 36.4 75 16 99/64 98 BiPAP 08/18/16 16:00 95 BiPAP 30 Laboratory Results: Last 24 Hours Test 08/18/16 16:42 08/18/16 21:07 08/19/16 06:17 08/19/16 07:24 Bedside Glucose 169 mg/dl 184 mg/dl 177 mg/dl White Blood Count 6.39 K/uL Red Blood Count 3.65 M/uL Hemoglobin 10.7 g/dL Hematocrit 34.8 % Mean Corpuscular Volume 95.3 fL Mean Corpuscular Hemoglobin 29.3 pg Mean Corpuscular Hemoglobin Concent 30.7 g/dl Platelet Count 127 K/uL Mean Platelet Volume 10.8 fL Neutrophils (%) (Auto) 90.6 % Lymphocytes (%) (Auto) 3.3 % Monocytes (%) (Auto) 5.3 % Eosinophils (%) (Auto) 0.0 % Basophils (%) (Auto) 0.2 % Neutrophils # (Auto) 5.79 K/uL Lymphocytes # (Auto) 0.21 K/uL Monocytes # (Auto) 0.34 K/uL Eosinophils # (Auto) 0.00 K/uL Basophils # (Auto) 0.01 K/uL RDW Standard Deviation 60.8 fL RDW Coefficient of Variation 17.4 % Immature Granulocyte % (Auto) 0.6 % Immature Granulocyte # (Auto) 0.04 K/uL Sodium Level 148 mmol/L Potassium Level 2.9 mmol/L Chloride Level 109 mmol/L Carbon Dioxide Level 29 mmol/L Anion Gap 10.0 mmol/L Blood Urea Nitrogen 31 mg/dl Creatinine 1.80 mg/dl Est Creatinine Clear Calc Drug Dose 34.8 ml/min Estimated GFR () 38.6 Estimated GFR (Non- 33.3 BUN/Creatinine Ratio 17.0 Random Glucose 178 mg/dl Calcium Level 8.7 mg/dl Test 08/19/16 11:25 08/19/16 15:00 Bedside Glucose 161 mg/dl
[2016-08-19] MEDS: INSULIN GLARGINE SOLOSTAR 100 UNITS/ML 3 ML PEN SC SCH (21:08)
[2016-08-19] MEDS: POLYETHYLENE (MIRALAX) 17 GM PACK PO PRN (21:16)
--- NOTE | 2016-08-19 23:00 | Progress Note ---
Progress Note patient was experiencing chest pain EKG ordered NTG requested and to be informed of response troponin trending CXR as patient has a tendency to aspirate and has a tendency to have this pain after these "aspiration episodes"
[2016-08-20] VITALS (12 sets, daily range): BP systolic 120–136; BP diastolic 77–88; PULSE 69–108; TEMP 35.7–36.8; O2SAT 94–99
[2016-08-20] MEDS: AVODART-ORDER AWAITING ACTION SCH ×4 (00:35→23:28)
[2016-08-20] MEDS: HYDROCORTISONE IV 100 MG in SYRINGE 0 ML IV SCH ×4 (00:37→23:28)
[2016-08-20] MEDS: LORAZEPAM INJ 0.5 MG in SYRINGE 0.25 ML IV PRN ×2 (02:01→15:30)
[2016-08-20] MEDS: PIPERACILL/TAZOBAC IV 3.375 GM in DEXTROSE 5% 100ML IV SCH ×3 (05:43→21:30)
[2016-08-20] MEDS ORDERED: LEVOFLOXACIN CONSULT ACTIVE PRN (06:45)
[2016-08-20] MEDS ORDERED: ALBUT/IPRATROP 3MG/0.5MG NEB 3 ML VIAL INH PRN (06:45)
[2016-08-20 06:57] LABS: COMPLETE YES; HEMATOCRIT 36.9 % (42-52); IG% 0.4 %; LYMPH % 3.6 %; LYMPH ABS # 0.25 K/uL (1.2-3.4); MEAN CELL VOLUME 93.4 fL (80-100); MEAN CORPUSCULAR HEMOGLOBIN 29.6 pg (25-34); MEAN CORPUSCULAR HGB CONC 31.7 g/dl (32-36); MEAN PLATELET VOLUME 10.3 fL (7.4-10.4); MONO % 4.9 %; NEUT % 91.1 %; PLATELET COUNT 131 K/uL (130-400); RED BLOOD COUNT 3.95 M/uL (4.7-6.1); WHITE BLOOD COUNT 6.89 K/uL (4.8-10.8)
[2016-08-20] MEDS ORDERED: FUROSEMIDE INJ 40 MG in SYRINGE 0 ML IV ONE (07:00)
[2016-08-20] MEDS: FLUTICASONE PROPIONATE NA SPR 16 GM BTL SCH (07:21)
[2016-08-20 07:23] LABS: CALCIUM 9.2 mg/dl (8.5-10.1); CREATININE 1.5 mg/dl (0.60-1.40); POTASSIUM 3.4 mmol/L (3.5-5.1)
[2016-08-20] MEDS: ALBUT/IPRATROP 3MG/0.5MG NEB 3 ML VIAL INH SCH ×4 (07:29→18:31)
--- NOTE | 2016-08-20 07:38 | DIAGNOSTIC IMAGING REPORT ---
SINGLE VIEW CHEST CLINICAL HISTORY: Atypical chest pain. FINDINGS: An AP, portable, upright chest radiograph is compared to chest x-ray and chest CT dated 08/17/2016. The examination is degraded by portable technique and patient rotation. The heart is enlarged and there is atherosclerotic calcification of the thoracic aorta. The pulmonary vasculature is noncongested. Advanced emphysema and chronic interstitial thickening is similar to previous. Scattered calcified granulomas are observed. There is multifocal bilateral airspace consolidation, most confluence in left lower lung. No large pleural effusion or pneumothorax is seen. The skeletal structures are osteopenic. The bony thorax is grossly intact. IMPRESSION: 1. Cardiomegaly and emphysema. 2. There is multifocal bilateral airspace consolidation which has increased from prior studies. The appearance suggests multifocal pneumonia. Radiographic follow-up to resolution is recommended. Electronically signed by: Terry Puente M.D. 08/20/2016 7:37 AM Dictated Date/Time: 08/20/2016 7:35 AM
--- NOTE | 2016-08-20 07:39 | PULMONARY PROGRESS NOTE ---
DATE: 08/20/2016 The patient is tachypneic this morning with use of accessory muscles of respiration. He states he had difficulty with sleeping last night, he did use BiPAP. He denies cough or chest pain, fevers or night sweats, just states he has been a bit more short of breath today. Chest x-ray yesterday revealed significant infiltrative process in the left upper lobe lingula and left lower lobe with minimal infiltrative process at the right base. According to nurses' notes, he had some confusion, was taken off his oxygen last night. VITAL SIGNS: Stable. He is afebrile. Respiratory rate is 26. His blood pressure 131/81 at 0441 today. Oxygen saturation 97% on CPAP but he is on oxygen nasal cannula now. His I\T\O has increased over the last several days with about 3-1/2 liters in since 08/18/2016. Weight has been stable at 99.1 kilograms. MEDICATIONS: Noted. PHYSICAL EXAMINATION: HEENT: Unremarkable. There is no thrush. NECK: No neck vein distention or HJR is noted. HEART: Has a regular rate and rhythm. I do not detect any murmurs or gallops. LUNGS: Reveal some rales at the lung bases and crackles in the left mid lung field posterior. ABDOMEN: Soft, nontender. EXTREMITIES: He has no cyanosis, clubbing or edema. Electrocardiogram revealed normal sinus rhythm with left axis deviation, right bundle-branch block, poor R-wave progression across the precordial leads. LABORATORY DATA: White count is pending, hemoglobin and hematocrit 10.7 and 35%, platelet count was reduced to 127,000. Blood gas on 08/17/2016 revealed pH 7.50, pCO2 of 38, pO2 of 83. BUN and creatinine were 29 and 1.6 yesterday. Sugars have been stable. Urinalysis revealed many inflammatory cells and the culture has grown out Pseudomonas aeruginosa which is intermediately sensitive to aztreonam and otherwise sensitive to most other antimicrobial agents. Blood cultures are negative. IMPRESSION: 1. Chronic obstructive pulmonary disease with exacerbation. 2. Pneumonia. This seems to be bibasilar now, has involved the left mid lung field and perhaps left upper lobe. There appears to be more of an interstitial pneumonitis. Aspiration pneumonitis is certainly a possibility. 3. Urosepsis. 4. Coronary artery disease. RECOMMENDATIONS: 1. Add Levaquin 500 mg daily with the pharmacy evaluation for dosing because of the elevated creatinine. It probably should be given about every 30 hours. 2. Lasix 40 mg IV x1 dose. He has had a bit more in than out over the last several days. Since this came on fairly suddenly last night, it could be heart failure. 3. DuoNeb with a treatment now and while awake q. 4 hours p.r.n. 4. Add on Symbicort 160/4.5 two puffs b.i.d. if he is able to use the medication. He will need to be followed carefully today.
[2016-08-20] MEDS: LIDODERM (LIDOCAINE) PATCH 5% TD SCH (10:04)
[2016-08-20] MEDS: HEPARIN SOD 5000 UNIT/0.5 ML CARP SQ SCH ×2 (10:07→21:33)
[2016-08-20] MEDS: INSULIN ASPART 100 UNITS/ML 3 ML PEN SC SCH ×4 (10:08→21:33)
[2016-08-20] MEDS: PANTOprazole INJ 40 MG in SYRINGE 0 ML IV SCH (10:08)
[2016-08-20] MEDS: BUDESONIDE/FORMOTEROL FUMARATE 160/4.5 60 PUFFS/INHALER INH SCH ×2 (10:08→21:30)
[2016-08-20] MEDS: POTASSIUM CHLR 10 MEQ / WTR 10 MEQ in PREMIXED WATER 100 ML IV SCH ×3 (10:09→14:58)
--- NOTE | 2016-08-20 12:01 | Progress Note ---
Subjective Date of Service: Aug 20, 2016. Subjective Pt evaluation today including: conversation w/ patient, conversation w/ family , physical exam, chart review, lab review, review of studies, review of inpatient medication list breathing still bad but feeling definitely better than when he came in for video fluoro this afternoon has to have a BM [facility] - but expressed understanding as i explained rationale for ongoing hospitalization at present no other acute complaints Problem List Medical Problems: (1) Acute on chronic renal failure Status: Acute (2) Fever Status: Acute (3) Hypoglycemia Status: Acute (4) Influenza A Status: Acute (5) Reactive airway disease Status: Acute (6) Sepsis Status: Acute (7) UTI (lower urinary tract infection) Status: Acute Review of Systems Respiratory: + shortness of breath (improving) Abdomen: + see HPI ros otherwise negative except for as above Objective Vital Signs Date Time Temp Pulse Resp B/P Pulse Ox O2 Delivery O2 Flow Rate FiO2 08/20/16 11:49 36.2 92 16 120/81 95 3.0 08/20/16 11:18 87 20 96 Nasal Cannula 4.0 08/20/16 08:00 95 Nasal Cannula 5.0 08/20/16 07:29 108 20 94 Nasal Cannula 4.0 08/20/16 07:24 36.6 99 18 136/88 99 5.0 08/20/16 04:41 35.7 69 20 131/81 97 CPAP 08/20/16 04:00 BiPAP 08/20/16 00:00 BiPAP 08/19/16 23:03 36.7 91 22 147/87 94 Nasal Cannula 5.0 08/19/16 20:12 36.8 86 20 172/83 99 CPAP 08/19/16 20:00 Nasal Cannula 5.0 08/19/16 18:58 68 96 35 08/19/16 18:03 68 96 35 08/19/16 16:00 95 Nasal Cannula 5.0 08/19/16 14:50 36.3 83 20 138/82 91 Nasal Cannula 5.0 08/19/16 12:00 92 Nasal Cannula 5.0 Physical Exam General Appearance: no apparent distress (sitting forward, stooped posture, no respiratory distress) Eyes: EOMI ENT: hearing grossly normal Neck: trachea midline Respiratory/Chest: no respiratory distress, no accessory muscle use, + decreased breath sounds (R sided, scattered rales L), + rales Cardiovascular: regular rate, rhythm (distant but sounds reg) Extremities: normal range of motion 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: housekeeping staff II-XII nml as tested, alert Skin: normal color, warm/dry Laboratory Results Last 24 Hours Test 08/19/16 15:00 08/19/16 16:02 08/19/16 20:18 08/20/16 06:23 Sodium Level 146 mmol/L 147 mmol/L Potassium Level 3.4 mmol/L 3.4 mmol/L Chloride Level 108 mmol/L 108 mmol/L Carbon Dioxide Level 32 mmol/L 29 mmol/L Anion Gap 6.0 mmol/L 10.0 mmol/L Blood Urea Nitrogen 29 mg/dl 26 mg/dl Creatinine 1.60 mg/dl 1.50 mg/dl Est Creatinine Clear Calc Drug Dose 39.1 ml/min 41.3 ml/min Estimated GFR () 44.6 48.2 Estimated GFR (Non- 38.4 41.6 BUN/Creatinine Ratio 18.0 17.0 Random Glucose 181 mg/dl 138 mg/dl Calcium Level 8.9 mg/dl 9.2 mg/dl Bedside Glucose 161 mg/dl 164 mg/dl White Blood Count 6.89 K/uL Red Blood Count 3.95 M/uL Hemoglobin 11.7 g/dL Hematocrit 36.9 % Mean Corpuscular Volume 93.4 fL Mean Corpuscular Hemoglobin 29.6 pg Mean Corpuscular Hemoglobin Concent 31.7 g/dl Platelet Count 131 K/uL Mean Platelet Volume 10.3 fL Neutrophils (%) (Auto) 91.1 % Lymphocytes (%) (Auto) 3.6 % Monocytes (%) (Auto) 4.9 % Eosinophils (%) (Auto) 0.0 % Basophils (%) (Auto) 0.0 % Neutrophils # (Auto) 6.27 K/uL Lymphocytes # (Auto) 0.25 K/uL Monocytes # (Auto) 0.34 K/uL Eosinophils # (Auto) 0.00 K/uL Basophils # (Auto) 0.00 K/uL RDW Standard Deviation 58.1 fL RDW Coefficient of Variation 16.9 % Immature Granulocyte % (Auto) 0.4 % Immature Granulocyte # (Auto) 0.03 K/uL Troponin I 0.029 ng/ml Pro-B-Type Natriuretic Peptide 3929 pg/ml Test 08/20/16 07:36 08/20/16 11:31 Bedside Glucose 129 mg/dl 183 mg/dl Assessment and Plan 86 yo M with PMHx including DMII, adrenal insufficiency, obesity, CAD s/p stent placement, HTN, dyslipidemia, PAF, CHF, PVD, CKD stage III, chronic anemia, COPD /emphysema, aspiration PNA, GERD, BPH with urinary retention, chronic constipation, h/o CVA/TIA, admitted with fever, UTI, sepsis, and acute on chronic hypoxemic respiratory failure. He notably has adrenal insufficiency and BP has been low. Lactate 1.92 on admission--> repeat 1.0 after IVFs Pseudomonas UTI sensitive to FQs, Multilobar PNA/HAP/Aspiration PNA, Acute/ Chronic hypoxemic respiratory failure, Severe Sepsis. -all improving. -on levaquin and zosyn. -vanco stopped after MRSA nares neg -steroids increased to 100mg q8hrs - continue for now - after video fluoro hopefully will show reliable enough intake to transition back to PO -concern on pneumonia is HAP vs aspiration - for video fluoro later today Severe COPD, Acute on Chronic hypoxemic respiratory failure, lung nodule/ abnormal CT scan, HAP: ABG 7.5/38/83 on 40% O2, acute resp alkalosis from sepsis , serum HCO3 33 on admit so likely chronic compensated met alkalosis in compensation for chronic hypercarbia as well. HAP vs aspiration pneumonia CXR 2/3: There is a new 2 cm irregular opacity within left upper lobe and 2 and basilar nodules. Given the recent change this favors an infectious process. Chest CT 2/3 showed: 1. A new patchy area of consolidation within the superior segment of the left lower lobe. This is consistent with a pneumonia. 2. There is a new 11 mm irregular nodular density within the superior segment of the right lower lobe. This is nonspecific and could represent an area of consolidation or a developing malignancy. One month chest CT follow up is recommended. 3. No nodules at the lung bases to correspond with the chest x-ray abnormality. 4. Emphysema. 5. Trace left pleural effusion. -continue BiPAP prn,nebs -chronic O2/supportive care Diabetes mellitus II-glucose readings have been low, min po intake while on BiPAP -accuchecks, SSI -sugars have been mid 100's Adrenal insufficiency-: -restart Florinef 0.1mg daily when safely taking po meds -hold home hydrocortisone po 40mg bid and restart when taking po -continue HC IV to 100mg q8h for persistent low BPs in setting of sepsis - as above can resume home dosing once able to clearly/safely take PO Chronic kidney disease stage III, - Cr. 1.8 upon admission -avoid nephrotoxins -renally dose meds -follow labs BPH w/ urinary retention- - Removed 600 mL with straight cath in the ED - on Avodart at home, not formulary here-->on finasteride while here and switch back to Avodart upon d/c - cont Flomax but careful with hypotension-will hold -Urol consulted and recommend indwelling Ball HTN/CAD/acute on chronic diastolic CHF/PAF, Demand ischemia with mildly elevated trop in setting of severe sepsis, not NSTEMI, ECGs no acute ischemia. PAF with rate controlled now -holding atenolol with holding parameters for SBP < 100 and DBP < 60. - asa/plavix/statin - holding torsemide Resume @ 100 mg daily once improved, takes 150 mg MWF normally. -follow I/Os, daily weights, renal function -chest pain likely pleuritic and is improving Constipation, chronic pain left hip from PHN-improved, on chronic pain meds, -holding oxycodone, gabapentin -continue Lidoderm patch -seems to be doing OK overall DVT ppx: heparin SQ, [facility] once more stable//once PO intake issue clearly discerned, and once back on PO steroids/etc
--- NOTE | 2016-08-20 12:55 | DIAGNOSTIC IMAGING REPORT ---
VIDEO SWALLOW HISTORY: Aspiration. Dysphagia. r/o aspiration/determine diet TECHNIQUE: Video fluoroscopic evaluation of swallowing was performed in the AP and lateral projections by the speech pathology staff. The patient is fed nectar-thick and thin liquid barium, a barium coated wafer, and barium pudding. FLUOROSCOPY TIME: 2.6 minutes. COMPARISON STUDY: None FINDINGS: There is normal hyoid excursion and epiglottic deflection. Small amount of aspiration and penetration with thin liquids. Trace penetration with no evidence for aspiration with thicker liquids. No significant aspiration with semisolid foods. Mildly diminished and/or disordered peristalsis. Mild esophageal spasm and/or irritability. IMPRESSION: 1. 1. Aspiration with thin liquids. 2. Penetration with thin liquids and thickened liquids 3. Please see the speech pathologist report for detailed findings and recommendations. Electronically signed by: Jaun Kim M.D. 08/20/2016 12:54 PM Dictated Date/Time: 08/20/2016 12:52 PM
[2016-08-20] MEDS ORDERED: VANCOMYCIN TROUGH SCH (13:30)
[2016-08-20] MEDS: POLYETHYLENE (MIRALAX) 17 GM PACK PO PRN (21:29)
[2016-08-20] MEDS: INSULIN GLARGINE SOLOSTAR 100 UNITS/ML 3 ML PEN SC SCH (21:34)
[2016-08-20 23:29] LABS: BUN/CREATININE RATIO 18.7 (10-20); CALCIUM 8.9 mg/dl (8.5-10.1); CREATININE 1.3 mg/dl (0.60-1.40); POTASSIUM 3.1 mmol/L (3.5-5.1)
[2016-08-20] MEDS ORDERED: LORAZEPAM 2 MG/ML 1 ML VIAL ONE (23:30)
[2016-08-20] MEDS ORDERED: LORAZEPAM 2 MG/ML 1 ML VIAL IV PRN (23:45)
[2016-08-21 00:04] VITALS: BP 127/71; PULSE 73; TEMP 36.4; O2SAT 93
[2016-08-21] MEDS: MoRPHine SULFATE 2 MG/ML CARP IV PRN ×2 (00:59→10:04)
[2016-08-21 04:49] VITALS: BP 134/79; PULSE 70; TEMP 36.3; O2SAT 96
[2016-08-21] MEDS: PIPERACILL/TAZOBAC IV 3.375 GM in DEXTROSE 5% 100ML IV SCH (05:33)
[2016-08-21] MEDS: AVODART-ORDER AWAITING ACTION SCH (06:59)
[2016-08-21 07:15] VITALS: PULSE 91; O2SAT 94
[2016-08-21] MEDS: ALBUT/IPRATROP 3MG/0.5MG NEB 3 ML VIAL INH SCH ×2 (07:15→12:00)
[2016-08-21 07:39] VITALS: BP 140/81; PULSE 69; TEMP 36.4; O2SAT 91
[2016-08-21] MEDS: INSULIN ASPART 100 UNITS/ML 3 ML PEN SC SCH ×2 (07:46→11:48)
[2016-08-21 08:07] LABS: BUN/CREATININE RATIO 16.5 (10-20); CREATININE 1.3 mg/dl (0.60-1.40); POTASSIUM 3.1 mmol/L (3.5-5.1)
[2016-08-21] MEDS: BUDESONIDE/FORMOTEROL FUMARATE 160/4.5 60 PUFFS/INHALER INH SCH (08:15)
[2016-08-21] MEDS: HYDROCORTISONE IV 100 MG in SYRINGE 0 ML IV SCH (08:15)
[2016-08-21] MEDS: LIDODERM (LIDOCAINE) PATCH 5% TD SCH (08:16)
[2016-08-21] MEDS: FLUTICASONE PROPIONATE NA SPR 16 GM BTL SCH (08:16)
[2016-08-21] MEDS: HEPARIN SOD 5000 UNIT/0.5 ML CARP SQ SCH (08:19)
[2016-08-21] MEDS ORDERED: LEVOFLOXACIN / D5W 250 MG in PREMIXED IN D5W 50 ML IV SCH (09:00)
[2016-08-21] MEDS ORDERED: POTASSIUM CHLORIDE 10 MEQ TABCR PO ONE (09:30)
--- NOTE | 2016-08-21 09:51 | PROGRESS NOTE ---
DATE: 08/21/2016 DATE: 08/21/2016. SUBJECTIVE: The patient is much improved today. He is reading a newspaper and states he is considerably improved. He denies cough or chest pain. States he slept fairly well last night. He is much more awake and alert today. OBJECTIVE: VITAL SIGNS: Stable. His blood pressure 140/81, oxygen saturation is 94% on 4 liters and he is afebrile. i & O is 1291 in, 2175 out. Weight is 96.3 kilograms down from 97.1 on the 6th. According to nurses' notes, he had a fairly good night last night, was more awake and oriented, was out of bed in a chair without difficulty. He was using BIPAP as needed. HEAD, EYES, EARS, NOSE, AND THROAT: Posterior pharynx is unremarkable. There is no neck vein distention or HJR. HEART: Regular rate and rhythm, 1/6 mid to late systolic murmur heard at the apex. No gallops are auscultated. LUNGS: Reveal decreased breath sounds, otherwise I thought were clear. ABDOMEN: Soft, nontender. EXTREMITIES: He has no cyanosis, clubbing or edema. CT of the chest revealed an 11 mm nodular density in the right lower lobe, patchy infiltrate or consolidation in the superior segment left lower lobe. LABORATORY DATA: White count is 6.89, hematocrit 36.9%. BUN is 21, creatinine 1.3. Sugars have been in the 116 to 209 range. Urine grew out Pseudomonas. IMPRESSION: 1. Chronic obstructive pulmonary disease with exacerbation. 2. Left lower lobe pneumonia, probably aspiration. 3. Pulmonary nodule noted on CT scan. It is 11 mm in the superior segment right lower lobe mid lung field. RECOMMENDATIONS: 1. Continue his present antimicrobial agents. 2. Follow up with Dr. Herrera as an outpatient for continued followup of the 11 mm right lower lobe which appears to be in the superior segment. 3. Taper the hydrocortisone down. He can be placed on prednisone with taper as well. Overall, he is stable. [facility]
[2016-08-21] MEDS ORDERED: LEVO-17 PO ×2 (10:53)
--- NOTE | 2016-08-21 10:58 | Discharge Instructions ---
Discharge Instructions Admission Reason for Admission: Urosepsis Discharge Discharge Diagnosis / Problem: pneumonia Discharge Goals Goal(s): Diagnostic testing, Therapeutic intervention Activity Recommendations Activity Level: Assistance Required . Additional Information Patient informed of condition: Yes Advance Directives: Yes DNR: Yes Level of Care: Skilled Communicable Disease: No (pneumonia under treatment) Prognosis: Improving Instructions / Follow-Up Instructions / Follow-Up pneumonia - initial concern on aspiration pneumonia - but after video fluoro more likely HAP. still possible that it was aspiration, but less likely. would have ongoing speech therapy for safety given small but present risk. finish levaquin @ 250mg every other day for 4 more doses. was on vanco inpt (dc 'd after MRSA nares negative) and was on zosyn as well but doing well and will downgrade to just levaquin to finish course of treatment. hypernatremia/hypokalemia - improving -for now hold demedex and metolazone, but reassess day-to-day based on clinical status and BMP -for now allow liberal PO fluid, but reassess day to day as above -BMP tomorrow (08/22/16) then as directed by PCP based on results speech therapy input after video fluoroscopy: Rehab Assessment Type * Speech/Language Eval [employer] Evaluation Type * Fluoro Swallow Study Report * can compare to VFSS completed 08/25/2014 PROCEDURE: The patient was seen in the Radiology Department of [facility] for the VFSS. Cursory examination of the oral cavity revealed him to be edentulous. The patient reports that he has dentures and wears them, but that he is comfortable doing this test without them. Pt was not sure if the dentures were here at hospital with him or still at the SNF (his residence). Movement of the articulators was WNL. The patient was seated upright in a wheelchair and was viewed in both the Anterior-Posterior (A-P) and Lateral planes. Volitional phonation exercises completed in the A-P plane revealed bilateral vocal fold movement and vocal intensity within functional limits. In the lateral plane, the patient was given the following boluses: 1 tsp. thin liquid barium x 2, single swallow thin liquid barium self-presented from a cup, sequential swallows of thin liquid barium self-presented from a straw while in chin tuck position, 1 tsp. nectar-thick liquid barium, single swallow nectar-thick liquid barium self-presented from a cup, 1 tsp. barium pudding, and 1 club cracker with barium pudding. The patient was then repositioned into the A-P plane and given 1 tsp. barium pudding. RESULTS: Oral Stage: No interlabial bolus escape. Cohesive bolus between tongue and palate during oral bolus hold exercise. Prolonged mastication of cracker due to lack of dentition. Delayed initiation of lingual motion for bolus transport, but once it started it moved swiftly. Trace residue on teeth and tongue after initial swallow of bolus. Cleared easily with second swallow. Initiation of pharyngeal swallow was latenet when the bolus head was in the pyriform sinuses. There were some oral delays due to lack of dentition, but the patient prepared boluses functionally. There was latent pharyngeal swallow initiation--the bolus would fill the pyriforms prior to swallow intiation. Pharyngeal Stage: No bolus between the soft palate and pharyngeal wall. Partial superior movement of the thyroid cartilage with partial approximation of the arytenoids to the epiglottic petiole. Partial anterior hyoid excursion. Complete epiglottic inversion. Incomplete laryngeal vestibular closure. Present pharyngeal stripping wave. Complete pharyngeal contraction in the AP plane. Partial distention and duration of PES opening. Narrow column contrast between tongue base and pharyngeal wall. Collection of residue in valleculae after the swallow. This cleared with a second swallow. There was TRACE ASPIRATION OF THIN AND NECTAR-THICK LIQUIDS during sequential swallowing and (+) penetration of these liquids with single swallows >1 teaspoon. When the bolus size was controlled by the teaspoon there was no aspiration and minimal penetration. Chin tuck did NOT prevent penetration and aspiration. Only bolus size minimized aspiration risk. Delayed swallow initiation and incomplete hyolaryngeal movement were primary contributors to aspiration. Solids were not aspirated. Esophageal Stage: There was distal esophageal retentions WITH retrograde motion of bolus below the PES as a pudding bolsu transited the eosphagus. Recommendations * SUMMARY/RECOMMENDATIONS: This patient presents with moderate oral-pharyngeal dysphagia and s/s esophageal dysfunction. The following is recommended: 1. Mechanical Soft (without dentures) and Regular diet (with dentures) 2. Aspiration precautions: NO MIXED CONSISTENCIES, no straws, full upright, SINGLE SIPS of liquids, swallow twice with each bolus 3. Oral hygiene: before eating in the morning, after meals and before going to bed for the night--to minimize oral bacteria aspirated in saliva 4. GERD precautions: head of bed elevated at least 30-degrees at all times; fully upright for meals and for 20-30 minutes after meals 5. Pt will need follow-up with [employer] services at [facility] to implement these precautions in his functional environment and to learn to use them with consistency over time. A summary of the results and recommendations was discussed with the patient immediately following the study. He verbalized understanding and is agreeable to having [employer] services work with him at [facility] ([facility]). GUERDA Hanson, given report. Thank you for referral of this patient. Please contact me at if any additional information is needed. Speech Therapy Discharge Instructions * 1. Mechanical Soft (without dentures) and Regular diet (with dentures) 2. Aspiration precautions: NO MIXED CONSISTENCIES, no straws, full upright, SINGLE SIPS of liquids, swallow twice with each bolus 3. Oral hygiene: before eating in the morning, after meals and before going to bed for the night--to minimize oral bacteria aspirated in saliva 4. GERD precautions: head of bed elevated at least 30-degrees at all times; fully upright for meals and for 20-30 minutes after meals 5. Pt will need follow-up with [employer] [employer] services at [facility] to implement these precautions in his functional environment and to learn to use them with consistency over time. Current Hospital Diet Patient's current hospital diet: AHA Diet (Heart Healthy), Diabetes Type 2 Diet see speech therapy recommendations for consistencies Discharge Diet Recommended Diet: AHA Diet (Heart Healthy), Diabetes Type 2 Diet (see speech therapy recommendations for consistencies) Pending Studies Studies pending at discharge: no Medical Emergencies . Who to Call and When: Medical Emergencies: If at any time you feel your situation is an emergency, please call 911 immediately. . Non-Emergent Contact Non-Emergency issues call your: Primary Care Provider . . "Provider Documentation" section prepared by Oscar Malik. Core Measure Problem Core Measures: None
[2016-08-21 11:21] VITALS: BP 140/81; PULSE 69; TEMP 36.4; O2SAT 91
[2016-08-21] MEDS: PANTOprazole INJ 40 MG in SYRINGE 0 ML IV SCH (11:49)
[2016-08-21 12:01] VITALS: PULSE 91; O2SAT 94
[2016-08-21] MEDS ORDERED: IPRATROPIUM BROMIDE/ALBUTEROL respimat INH INH SCH (17:00)
--- NOTE | 2016-08-21 20:18 | Discharge Summary ---
Discharge Summary Admission Date: Aug 17, 2016 at 11:13 Discharge Date: Aug 21, 2016 Discharge Disposition: snf facility Principal Diagnosis: HAP Immunizations: Have You Had Influenza Vaccine: Yes Influenza Vaccine Date: Jun 08, 2013 History of Tetanus Vaccine?: Unknown History of Pneumococcal: Yes History of Hepatitis B Vaccine: Unknown Procedures: Rehab Assessment Type * Speech/Language Eval PROJ MGR Evaluation Type * Fluoro Swallow Study Report * can compare to VFSS completed 08/25/2014 PROCEDURE: The patient was seen in the Radiology Department of [facility] for the VFSS. Cursory examination of the oral cavity revealed him to be edentulous. The patient reports that he has dentures and wears them, but that he is comfortable doing this test without them. Pt was not sure if the dentures were here at hospital with him or still at the SNF (his residence). Movement of the articulators was WNL. The patient was seated upright in a wheelchair and was viewed in both the Anterior-Posterior (A-P) and Lateral planes. Volitional phonation exercises completed in the A-P plane revealed bilateral vocal fold movement and vocal intensity within functional limits. In the lateral plane, the patient was given the following boluses: 1 tsp. thin liquid barium x 2, single swallow thin liquid barium self-presented from a cup, sequential swallows of thin liquid barium self-presented from a straw while in chin tuck position, 1 tsp. nectar-thick liquid barium, single swallow nectar-thick liquid barium self-presented from a cup, 1 tsp. barium pudding, and 1 club cracker with barium pudding. The patient was then repositioned into the A-P plane and given 1 tsp. barium pudding. RESULTS: Oral Stage: No interlabial bolus escape. Cohesive bolus between tongue and palate during oral bolus hold exercise. Prolonged mastication of cracker due to lack of dentition. Delayed initiation of lingual motion for bolus transport, but once it started it moved swiftly. Trace residue on teeth and tongue after initial swallow of bolus. Cleared easily with second swallow. Initiation of pharyngeal swallow was latenet when the bolus head was in the pyriform sinuses. There were some oral delays due to lack of dentition, but the patient prepared boluses functionally. There was latent pharyngeal swallow initiation--the bolus would fill the pyriforms prior to swallow intiation. Pharyngeal Stage: No bolus between the soft palate and pharyngeal wall. Partial superior movement of the thyroid cartilage with partial approximation of the arytenoids to the epiglottic petiole. Partial anterior hyoid excursion. Complete epiglottic inversion. Incomplete laryngeal vestibular closure. Present pharyngeal stripping wave. Complete pharyngeal contraction in the AP plane. Partial distention and duration of PES opening. Narrow column contrast between tongue base and pharyngeal wall. Collection of residue in valleculae after the swallow. This cleared with a second swallow. There was TRACE ASPIRATION OF THIN AND NECTAR-THICK LIQUIDS during sequential swallowing and (+) penetration of these liquids with single swallows >1 teaspoon. When the bolus size was controlled by the teaspoon there was no aspiration and minimal penetration. Chin tuck did NOT prevent penetration and aspiration. Only bolus size minimized aspiration risk. Delayed swallow initiation and incomplete hyolaryngeal movement were primary contributors to aspiration. Solids were not aspirated. Esophageal Stage: There was distal esophageal retentions WITH retrograde motion of bolus below the PES as a pudding bolsu transited the eosphagus. Recommendations * SUMMARY/RECOMMENDATIONS: This patient presents with moderate oral-pharyngeal dysphagia and s/s esophageal dysfunction. The following is recommended: 1. Mechanical Soft (without dentures) and Regular diet (with dentures) 2. Aspiration precautions: NO MIXED CONSISTENCIES, no straws, full upright, SINGLE SIPS of liquids, swallow twice with each bolus 3. Oral hygiene: before eating in the morning, after meals and before going to bed for the night--to minimize oral bacteria aspirated in saliva 4. GERD precautions: head of bed elevated at least 30-degrees at all times; fully upright for meals and for 20-30 minutes after meals 5. Pt will need follow-up with [facility] services at [facility] to implement these precautions in his functional environment and to learn to use them with consistency over time. A summary of the results and recommendations was discussed with the patient immediately following the study. He verbalized understanding and is agreeable to having [facility] services work with him at [facility] ([facility]). GUERDA Hanson, given report. Thank you for referral of this patient. Please contact me at if any additional information is needed. [~ rep ct add3]] CHEST CT WITHOUT CONTRAST CT DOSE: 1109.02 mGy.cm HISTORY: Abnormal chest x-ray. Assess new nodules seen on CXR. TECHNIQUE: Multiaxial CT images of the chest were performed without contrast. COMPARISON: Chest CT 08/02/2014. FINDINGS: Motion artifact results in suboptimal evaluation of the chest. No pneumothorax. Emphysema. Biapical pleural-parenchymal scarring persists. A 12 mm irregular density within the peripheral left upper lobe on image 87 remains unchanged. This favors an area of scarring. There are no new nodules at the lung bases. Therefore, the chest x-ray abnormality was likely due to the nipple shadows. Patchy densities at the bilateral lower lobes posteriorly favor mild dependent change. There is a new patchy airspace opacity within the superior segment of the left lower lobe. This favors a pneumonia. There is also a new irregular nodular density within the superior segment of the right lower lobe which measures 11 mm. Stable 4 mm nodule within the right upper lobe on image 77. Trace left pleural effusion. A small gallstone is present. The unenhanced liver and adrenal glands are unremarkable. Punctate calcified granuloma within the spleen. The heart is normal in size. Normal caliber thoracic aorta. No mediastinal or hilar lymphadenopathy. IMPRESSION: 1. A new patchy area of consolidation within the superior segment of the left lower lobe. This is consistent with a pneumonia. 2. There is a new 11 mm irregular nodular density within the superior segment of the right lower lobe. This is nonspecific and could represent an area of consolidation or a developing malignancy. One month chest CT follow up is recommended. 3. No nodules at the lung bases to correspond with the chest x-ray abnormality. 4. Emphysema. 5. Trace left pleural effusion. Electronically signed by: Aubrey Kaplan M.D. 08/17/2016 1:50 PM Last Resulted CBC 08/20/16 06:23 Red Blood Count 3.95, Mean Corpuscular Volume 93.4, Mean Corpuscular Hemoglobin 29.6, Mean Corpuscular Hemoglobin Concent 31.7, Mean Platelet Volume 10.3, Neutrophils (%) (Auto) 91.1, Lymphocytes (%) (Auto) 3.6, Monocytes (%) (Auto) 4.9, Eosinophils (%) (Auto) 0.0, Basophils (%) (Auto) 0.0, Neutrophils # (Auto) 6.27, Lymphocytes # (Auto) 0.25, Monocytes # (Auto) 0.34, Eosinophils # (Auto) 0.00, Basophils # (Auto) 0.00 Last Resulted BMP 08/21/16 06:46 Consultations: speech pulmonary urology Medication Reconciliation New Medications: Levofloxacin (Levaquin) 250 Mg Tab 250 MG PO Q2D, #4 TAB Continued Medications: Acetaminophen (Tylenol) 500 Mg Tab 1000 MG PO AMPM PRN for PA, TAB Aspirin (Aspirin Chewable) 81 Mg Chew 81 MG PO DAILY Atenolol (Atenolol) 25 Mg Tab 12.5 MG PO DAILY for 30 Days, #15 TAB Atorvastatin (Lipitor) 20 Mg Tab 20 MG PO HS, TAB Bisacodyl (Bisacodyl) 5 Mg Tab 5 MG PO BID Bisacodyl (Bisac-Evac) 10 Mg Sup 10 MG RE UNKNOWN NO BM IN 3 DAYS, GIVE IN AM ON DAY 4 Calcium Polycarbophil (Fiber Laxative) 625 Mg Tab 1 TAB PO DAILY Clopidogrel (Plavix) 75 Mg Tab 75 MG PO DAILY Docusate Sodium (Colace) 100 Mg Cap 100 MG PO BID Dutasteride (Avodart) 0.5 Mg Cap 0.5 MG PO DAILY Famotidine (Pepcid) 20 Mg Tab 20 MG PO HS Fludrocortisone Acetate (Florinef) 0.1 Mg Tab 0.1 MG PO DAILY Fluticasone Prop/Salmeterol (Advair Diskus 250-50 Mcg/Dose) 14 Puff/1 Inhaler Aerp 1 PUFF INH BID, #1 INHALER Fluticasone Propionate (Fluticasone Propionate) 50 Mcg/Act Spr 2 SPRAYS NA DAILY for 30 Days Gabapentin (Gabapentin) 600 Mg Tab 600 MG PO BID Hydrocortisone (Cortef) 20 Mg Tab 40 MG PO BID Insulin Aspart (Novolog Flexpen) 100 Units/Ml Inj 0 UNITS SC ACHS for 30 Days Insulin Glargine (Lantus Solostar) 100 Unit/Ml Inj 45 UNIT SC QPM for 30 Days Levalbuterol Tartrate (Levalbuterol Tartrate Hfa) 45 Mcg/Act Aer 0.63 Q3H Lidocaine (Lidocaine) 1 Patch Tdsy 1 PATCH TD QAM for 30 Days to back pain Lorazepam (Lorazepam) 1 Mg Tab 1 MG PO DAILY PRN for Anxiety, #3 TAB Magnesium Hydroxide (Milk Of Magnesia) 30 Ml Susp 30 ML PO UD PRN for Constipation, ML IF NO BM IN 2 DAYS, GIVE ON DAY THREE Magnesium Oxide (Mag-Ox) 400 Mg Tab 400 MG PO BID, TAB Metolazone (Zaroxolyn) 2.5 Mg Tab 2.5 MG PO PRN, TAB Multiple Vitamins W/ Minerals (Therems M) 1 Tab Tab Nitroglycerin (Nitrostat) 0.4 Mg Tab 1 TAB SL UD, #100 TAB 3 Refills Oxycodone HCl (Oxycontin) 15 Mg Tabcr 15 MG PO Q12, #6 Polyethylene Glycol 3350 (Miralax) 1 Pow Pow 17 GM PO BID Polyethylene Glycol-Propylene (Systane Ultra) 1 Idania Idania 1 DROPS OPB BID, #15 ML 1 Refill Polyethylene Glycol-Propylene (Systane) 1 Idania Idania 1 DROPS OP QID, #30 ML 5 Refills Potassium Chloride (Klor-Con M20) 20 Meq Tabcr 2 TAB PO BID Pseudoephedrine-Guaifenesin (Mucinex D) 1 Tab Tab 1 TAB PO BID for 10 Days, #20 TAB Tamsulosin HCl (Tamsulosin HCl) 0.4 Mg Cap 0.4 MG PO HS for 30 Days, CAP Torsemide (Demadex) 100 Mg Tab 100 MG PO DAILY, TAB Torsemide (Demadex) 20 Mg Tab 50 MG PO 3XWK MON, WED, FRI ALONG WITH 100MG TO = 150MG Discontinued Medications: Prednisone (Prednisone) 20 Mg Tab 40 MG PO DAILY for 14 Days, #28 TAB x 3 days then 30mg daily x 3 days then 20mg daily until seen by Pulmonology in 1 week Discharge Exam Physical Exam: General Appearance: no apparent distress Eyes: EOMI ENT: hearing grossly normal Neck: trachea midline Respiratory/Chest: no respiratory distress, no accessory muscle use Extremities: normal inspection 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: 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 He notably has adrenal insufficiency and BP has been low. Lactate 1.92 on admission--> repeat 1.0 after IVFs Pseudomonas UTI sensitive to FQs, Multilobar PNA/HAP/Aspiration PNA, Acute/ Chronic hypoxemic respiratory failure, Severe Sepsis. -all improving. -on levaquin and zosyn. in hospital - dc on levaquin alone as above -vanco stopped after MRSA nares neg -concern on pneumonia is HAP vs aspiration - but speech results reassuring - likely was HAP Severe COPD, Acute on Chronic hypoxemic respiratory failure, lung nodule/ abnormal CT scan, HAP: ABG 7.5/38/83 on 40% O2, acute resp alkalosis from sepsis , serum HCO3 33 on admit so likely chronic compensated met alkalosis in compensation for chronic hypercarbia as well. HAP vs aspiration pneumonia CXR 2/3: There is a new 2 cm irregular opacity within left upper lobe and 2 and basilar nodules. Given the recent change this favors an infectious process. Chest CT 2/3 showed: 1. A new patchy area of consolidation within the superior segment of the left lower lobe. This is consistent with a pneumonia. 2. There is a new 11 mm irregular nodular density within the superior segment of the right lower lobe. This is nonspecific and could represent an area of consolidation or a developing malignancy. One month chest CT follow up is recommended. 3. No nodules at the lung bases to correspond with the chest x-ray abnormality. 4. Emphysema. 5. Trace left pleural effusion. -continue BiPAP prn,nebs -chronic O2/supportive care Diabetes mellitus II-glucose readings have been low, min po intake while on BiPAP -accuchecks, SSI -sugars have been mid 100's Adrenal insufficiency-: -was on IV steroids in hospital - resume PO regimen Chronic kidney disease stage III, -follow labs BPH w/ urinary retention- - Removed 600 mL with straight cath in the ED - on Avodart at home, not formulary here-->on finasteride while here and switch back to Avodart upon d/c - cont Flomax but careful with hypotension-will hold -Urol consulted and recommend indwelling Ball and outpt f/u HTN/CAD/acute on chronic diastolic CHF/PAF, Demand ischemia with mildly elevated trop in setting of severe sepsis, not NSTEMI, ECGs no acute ischemia. PAF with rate controlled now -home on regular meds Constipation, chronic pain left hip from PHN-improved, on chronic pain meds, -holding oxycodone, gabapentin -continue Lidoderm patch -seems to be doing OK overall DVT ppx: heparin SQ pulmonary nodule - -outpt f/u mild hypernatremia/hypokalemia -ongoing electrolyte management, outpt f/u labs stable [facility] Total Time Spent: Greater than 30 minutes This includes examination of the patient, discharge planning, medication reconciliation, and communication with other providers. Discharge Instructions Please refer to the electronic Patient Visit Report (Discharge Instructions) for additional information. Additional Copies To Wilver Franco M.D.; [facility]
[2016-08-23 14:08] LABS: LEGIONELLA ANTIGEN NOT DETECTED
[2016-11-10] MEDS ORDERED: LCTX PO (07:47)
[2016-11-10] MEDS ORDERED: FLR1 PO (07:47)
[2016-11-10] MEDS ORDERED: CIPR1TAB11 PO (07:48)
[2017-03-01] MEDS ORDERED: GFNSR600 PO (00:08)
[2017-03-01] MEDS ORDERED: DOCU-94 PO (00:15)
[2017-03-01] MEDS ORDERED: ACET-1256 PO (00:18)
[2017-03-01] MEDS ORDERED: METO2.5T PO (00:23)
[2017-03-01] MEDS ORDERED: MULTTAB63 PO ×2 (09:07)
[2017-03-01] MEDS ORDERED: NTRGSL/4 SL ×2 (09:07)
[2017-03-01] MEDS ORDERED: POLY1SOL6 OPB ×2 (09:50)
[2017-03-01] MEDS ORDERED: MAGN400T6 PO ×2 (09:50)
[2017-03-01] MEDS ORDERED: CLOP1TAB15 PO ×2 (09:56)
[2017-03-01] MEDS ORDERED: BISA1TAB15 PO ×2 (12:45)
[2017-03-01] MEDS ORDERED: ATV5X PO (12:47)
[2017-03-01] MEDS ORDERED: ATEN-173 PO (12:47)
[2017-03-01] MEDS ORDERED: HYDR20TA3 PO ×2 (16:12)
[2017-03-01] MEDS ORDERED: PRLSR20 PO (19:07)
[2017-03-01] MEDS ORDERED: ASPCH81X PO ×2 (23:21)
[2017-03-26] MEDS ORDERED: WARF3TAB6 PO (20:54)
[2017-03-28] MEDS ORDERED: OXYSR15 PO (16:37)
[2017-03-28] MEDS ORDERED: HYD10 PO (16:37)
[2017-03-28] MEDS ORDERED: MCRK20 PO (16:37)
[2017-03-28] MEDS ORDERED: CYAN10005 PO (16:37)
[2017-03-28] MEDS ORDERED: HYDR20TA PO (16:53)
[2017-03-28] MEDS ORDERED: FLUC100T4 PO (17:10)
== END 2016-08-21 13:39 | DRG 871 ==
LOC: ENRESERVDT → ENRESERVTM → EDBD 08:10 → C.EDA 08:11 → C.MED 11:13
PROVIDERS: ADMIT Family Medicine; ATTEND Family Medicine
DX: A41.9 Sepsis, unspecified organism (principal); I50.33 Acute on chronic diastolic (congestive) heart failure; J69.0 Pneumonitis due to inhalation of food and vomit; N17.0 Acute kidney failure with tubular necrosis; J96.22 Acute and chronic respiratory failure with hypercapnia; J96.21 Acute and chronic respiratory failure with hypoxia; N39.0 Urinary tract infection, site not specified; E27.40 Unspecified adrenocortical insufficiency; E87.3 Alkalosis; I24.8 Other forms of acute ischemic heart disease; J44.0 Chronic obstructive pulmonary disease with (acute) lower respiratory infection; B02.29 Other postherpetic nervous system involvement; E87.0 Hyperosmolality and hypernatremia; I13.0 Hypertensive heart and chronic kidney disease with heart failure and stage 1 through stage 4 chronic kidney disease, or unspecified chronic kidney disease; I48.92 Unspecified atrial flutter; R65.20 Severe sepsis without septic shock; I48.0 Paroxysmal atrial fibrillation; N40.1 Benign prostatic hyperplasia with lower urinary tract symptoms; L89.312 Pressure ulcer of right buttock, stage 2; I73.9 Peripheral vascular disease, unspecified; K21.9 Gastro-esophageal reflux disease without esophagitis; E66.9 Obesity, unspecified; R33.9 Retention of urine, unspecified; R91.1 Solitary pulmonary nodule; E78.00 Pure hypercholesterolemia, unspecified; K59.00 Constipation, unspecified; D64.9 Anemia, unspecified; I25.10 Atherosclerotic heart disease of native coronary artery without angina pectoris; N18.3 Chronic kidney disease, stage 3 (moderate); E87.6 Hypokalemia; B96.5 Pseudomonas (aeruginosa) (mallei) (pseudomallei) as the cause of diseases classified elsewhere; R25.1 Tremor, unspecified; I95.9 Hypotension, unspecified; Y95 Nosocomial condition; E78.5 Hyperlipidemia, unspecified; R91.8 Other nonspecific abnormal finding of lung field; R79.89 Other specified abnormal findings of blood chemistry; R07.9 Chest pain, unspecified; M25.552 Pain in left hip; E11.22 Type 2 diabetes mellitus with diabetic chronic kidney disease; E11.649 Type 2 diabetes mellitus with hypoglycemia without coma; E21.3 Hyperparathyroidism, unspecified; I27.81 Cor pulmonale (chronic); Z87.19 Personal history of other diseases of the digestive system; Z86.73 Personal history of transient ischemic attack (TIA), and cerebral infarction without residual deficits; Z95.5 Presence of coronary angioplasty implant and graft; Z87.891 Personal history of nicotine dependence; Z82.49 Family history of ischemic heart disease and other diseases of the circulatory system; Z79.52 Long term (current) use of systemic steroids; Z66 Do not resuscitate; Z79.4 Long term (current) use of insulin; Z79.82 Long term (current) use of aspirin; Z79.02 Long term (current) use of antithrombotics/antiplatelets; Z79.51 Long term (current) use of inhaled steroids; Z79.899 Other long term (current) drug therapy; Z79.891 Long term (current) use of opiate analgesic; Z68.30 Body mass index [BMI] 30.0-30.9, adult

== ENCOUNTER → 2016-08-22 | Outpatient (CLI) | payer OTHER ==
[~2016-08-22] MED LIST changes: +ACET-1256 PO; +ACET-1311 PO; +ADVIN25/60 INH; +AMOX875T PO; +ASPCH81X PO; +ATEN-173 PO; +ATV5X PO; +BISA1TAB15 PO; +CIPR1TAB11 PO; +CLOP1TAB15 PO; +CMD5 PO; +CYAN10005 PO; +CYAN1TAB18 PO; +CYM30 PO; +DMD20 PO; +DOCU-94 PO; +DULO60CA44 PO; +DUTA1CAP3 PO; +ENOX120I SQ; +FAMO1TAB47 PO; +FIBER PO; +FLR1 PO; +FLUC100T4 PO; +FLUD0.1T10 PO; +GUAI1TAB55 PO; +HYD10 PO; +HYDR20TA PO; +HYDR20TA3 PO; +INSDGI SQ; +IPRA1AER2 INH; +LCTX PO; +LEVA45AE; +LEVO-17 PO; +LEVO1TAB35 PO; +LINE1TAB6 PO; +LPT/20 PO; +LVQ750 PO; +MAGN400T6 PO; +METH1TAB5 PO; +METO2.5T PO; +MTHH1 PO; +NRN800 PO; +NTRGSL/4 SL; +NVLGI7030 SQ; +ONDA4TAB9 PO; +OXGN; +OXYC15TA89 PO; +POLY1SOL6 OPB; +POLY335019 PO; +POLYSOL4 OP; +PRED10TA PO; +PRED20TA PO; +PRLSR20 PO; +PSEU60TA80 PO; +SIME80CH PO; +TAMS0.4C38 PO; +TROL10LO TOP; +WARF2.5T8 PO; +WARF2TAB PO; +WARF3TAB6 PO; +XPNINS NEB; +[UNRECOGNIZED DRUG - CODE] TOP; +[UNRECOGNIZED DRUG - REMARK]
[2016-08-22 09:50] LABS: BLOOD UREA NITROGEN 24 mg/dl (7-18); BUN/CREATININE RATIO 18.2 (10-20); CALCIUM 9.4 mg/dl (8.5-10.1); CARBON DIOXIDE 29 mmol/L (21-32); CHLORIDE 110 mmol/L (98-107); GLUCOSE 92 mg/dl (70-99); POTASSIUM 3.2 mmol/L (3.5-5.1); SODIUM 150 mmol/L (136-145)
== END | disposition home or self-care (01) ==
LOC: C.LABVPSUA 09:11
PROVIDERS: ATTEND Internal Medicine Critical Care Medicine
DX: I10 Essential (primary) hypertension (principal)

== ENCOUNTER → 2016-09-19 | Outpatient (CLI) | payer OTHER ==
[~2016-09-19] MED LIST changes: -IPRASOL4 INH; -LEVO1TAB33 PO; -NYSS5 PO; -OMEP20CA9 PO; -PRD20 PO; -SODIENE PR; -XPNINS INH
[2016-09-19 09:34] LABS: BLOOD UREA NITROGEN 21 mg/dl (7-18); BUN/CREATININE RATIO 13.1 (10-20); CALCIUM 8.7 mg/dl (8.5-10.1); CARBON DIOXIDE 30 mmol/L (21-32); CHLORIDE 104 mmol/L (98-107); GLUCOSE 76 mg/dl (70-99); POTASSIUM 3.5 mmol/L (3.5-5.1); SODIUM 144 mmol/L (136-145)
== END | disposition home or self-care (01) ==
LOC: C.LABVPSUA 09:08
PROVIDERS: ATTEND Internal Medicine Critical Care Medicine
DX: N18.9 Chronic kidney disease, unspecified (principal)

== ENCOUNTER 2016-10-01 17:50 | Inpatient (IN) | payer OTHER ==
[~2016-10-01] VITALS: Ht 185.4 cm; Wt 98.2 kg
[~2016-10-01 17:50] MED LIST changes: -ACET-1256 PO; -ACET-1311 PO; -ADVIN25/60 INH; -AMOX875T PO; -ASPCH81X PO; -ATEN-173 PO; -ATV5X PO; -BISA1TAB15 PO; -CIPR1TAB11 PO; -CLOP1TAB15 PO; -CMD5 PO; -CYAN10005 PO; -CYAN1TAB18 PO; -CYM30 PO; -DMD20 PO; -DOCU-94 PO; -DULO60CA44 PO; -DUTA1CAP3 PO; -ENOX120I SQ; -FAMO1TAB47 PO; -FIBER PO; -FLR1 PO; -FLUC100T4 PO; -FLUD0.1T10 PO; -GFNSR600 PO; -GUAI1TAB55 PO; -HYD10 PO; -HYDR20TA PO; -HYDR20TA3 PO; -INSDGI SQ; -IPRA1AER2 INH; -LCTX PO; -LEVO1TAB35 PO; -LINE1TAB6 PO; -LPT/20 PO; -LVQ750 PO; -MAGN400T6 PO; -METH1TAB5 PO; -MTHH1 PO; -MULTTAB63 PO; -NRN800 PO; -NTRGSL/4 SL; -NVLGI7030 SQ; -ONDA4TAB9 PO; -OXGN; -OXYC15TA89 PO; -POLY1SOL6 OPB; -POLY335019 PO; -PRED10TA PO; -PRED20TA PO; -PRLSR20 PO; -SIME80CH PO; -TAMS0.4C38 PO; -TROL10LO TOP; -WARF2.5T8 PO; -WARF2TAB PO; -WARF3TAB6 PO; -XPNINS NEB; -[UNRECOGNIZED DRUG - CODE] TOP; -[UNRECOGNIZED DRUG - REMARK]
[2016-10-01] MEDS ORDERED: SODIUM CHLORIDE 0.9% 1000ML 1,000 ML IV STA ×2 (18:11→20:01)
[2016-10-01] MEDS ORDERED: ACETAMINOPHEN 500 MG TAB PO STA (18:13)
--- NOTE | 2016-10-01 18:15 | EMERGENCY ROOM VISIT NOTE ---
History Report prepared by Hood: Domingo Noel Under the Supervision of: Dr. Ralf Paez M.D. First contact with patient: 18:05 Chief Complaint: ILLNESS Stated Complaint: SEPSIS History of Present Illness The patient is an 86 year old male who presents to the Emergency Room with complaints of a persistent illness that started last night. He comes from the [facility] assisted living. He states that his throat hurts. Per the patient's , the patient has been confused today, which is not his baseline. Last night, the patient was complaining of an upset stomach with nausea. He did not vomit and he denied any abdominal pain, chest pain, or loss of consciousness. The patient received a suppository from the nursing staff last night. Per the patient's , the patient has had almost no appetite today, and all he wanted for dinner was cereal. He does have a history of UTI. Source of History: patient, spouse/significant other Onset: Last night Position: other (global - illness) Timing: other (persistent) Associated Symptoms: + nausea (upset stomach as well), No LOC, No abdominal pain, No chest pain Note: Associated symptoms: Confusion. Loss of appetite. Review of Systems See HPI for pertinent positives & negatives. A total of 10 systems reviewed and were otherwise negative. Past Medical & Surgical Medical Problems: (1) Acute on chronic respiratory failure with hypoxia and hypercapnia (2) Acute renal failure (3) Anemia (4) chronic kidney disease (5) COPD (chronic obstructive pulmonary disease) (6) Coronary artery disease (7) CVA (cerebrovascular accident) (8) Essential hypertension (9) HTN (hypertension) (10) Hypercholesterolemia (11) Hyperparathyroidism (12) Hypotension (13) Influenza A (14) DE (myocardial infarction) (15) Peripheral vascular disease (16) TIA (transient ischemic attack) (17) Urinary retention (18) Urosepsis Surgical Problems: (1) H/O heart artery stent Family History FH: heart disease Hypertension Social History Smoking Status: Former Smoker Alcohol Use: occasionally Drug Use: none Marital Status: Housing Status: lives with significant other Occupation Status: retired Current/Historical Medications Scheduled Aspirin (Aspirin Chewable), 81 MG PO DAILY Atenolol (Atenolol), 12.5 MG PO DAILY Atorvastatin (Lipitor), 20 MG PO HS Bisacodyl (Bisacodyl), 5 MG PO BID Calcium Polycarbophil (Fiber Laxative), 1 TAB PO DAILY Clopidogrel (Plavix), 75 MG PO DAILY Docusate Sodium (Colace), 100 MG PO BID Dutasteride (Avodart), 0.5 MG PO DAILY Famotidine (Pepcid), 20 MG PO HS Fludrocortisone Acetate (Florinef), 0.1 MG PO DAILY Fluticasone Prop/Salmeterol (Advair Diskus 250-50 Mcg/Dose), 1 PUFF INH BID Fluticasone Propionate (Fluticasone Propionate), 2 SPRAYS NA DAILY Gabapentin (Gabapentin), 600 MG PO BID Hydrocortisone (Cortef), 40 MG PO BID Insulin Glargine (Lantus Solostar), 45 UNIT SC QPM Levalbuterol Tartrate (Levalbuterol Tartrate Hfa), 0.63 TID Lidocaine (Lidocaine), 1 PATCH TD QAM Magnesium Oxide (Mag-Ox), 400 MG PO BID Methenamine Hippurate (Methenamine Hippurate), 1 GM PO HS Nitroglycerin (Nitrostat), 1 TAB SL UD Omeprazole (Prilosec), 20 MG PO DAILY Oxycodone HCl (Oxycontin), 15 MG PO Q12 Polyethylene Glycol-Propylene (Systane Ultra), 1 DROPS OPB BID Potassium Chloride (Klor-Con M20), 2 TAB PO BID Pseudoephedrine-Guaifenesin (Mucinex D), 1 TAB PO BID Tamsulosin HCl (Tamsulosin HCl), 0.4 MG PO HS Torsemide (Demadex), 100 MG PO DAILY Torsemide (Demadex), 50 MG PO 3XWK Scheduled PRN Acetaminophen (Tylenol), 1,000 MG PO AMPM PRN for PA Miscellaneous Medications Multiple Vitamins W/ Minerals (Therems M) Allergies Coded Allergies: No Known Allergies (Unverified , 10/01/16) Physical Exam Vital Signs Date Time Temp Pulse Resp B/P Pulse Ox O2 Delivery O2 Flow Rate FiO2 10/01/16 18:36 86 18 137/84 99 Nasal Cannula 2.0 10/01/16 18:01 95 Nasal Cannula 2.0 10/01/16 17:56 37.9 90 20 135/77 88 Room Air Physical Exam GENERAL: Patient is elderly, confused, and ill appearing. HEENT: No acute trauma, normocephalic atraumatic, mucous membranes dry, no nasal congestion, no scleral icterus. NECK: No stridor, no adenopathy, no meningismus, trachea is midline. LUNGS: No dyspnea. Clear to auscultation and equal bilaterally. No wheeze, no rhonchi. HEART: Regular rate and rhythm. No murmurs, rubs, gallops appreciated. ABDOMEN: Soft, nontender, bowel sounds positive, no masses appreciated, no peritonitis. BACK: No midline tenderness, no CVA tenderness EXTREMITIES: Normal motion all extremities, no cyanosis, no edema. NEUROLOGIC: Confused. No acute motor or sensory deficits, no focal weakness, cranial nerves grossly intact. SKIN: No rash, no jaundice, no diaphoresis. Warm to touch. Medical Decision & Procedures ER Provider Diagnostic Interpretation: X ray results are stated below per my interpretation and the radiologist's interpretation. CHEST ONE VIEW PORTABLE CLINICAL HISTORY: fever COMPARISON STUDY: 08/19/2016 FINDINGS: The heart is borderline enlarged. There is underlying chronic lung disease. There is a 4.7 cm left perihilar airspace opacity. As no mass was visualized in this location on the CT scan dated to 317, this abnormality is likely inflammatory. There are no significant pleural effusions. There is no failure.[ IMPRESSION: 4.7 cm left perihilar airspace opacity, likely inflammatory. Films subsequent to treatment are recommended in follow-up. Electronically signed by: Sridhar Chowdary M.D. 10/01/2016 6:29 PM Dictated Date/Time: 10/01/2016 6:28 PM Laboratory Results Test 10/01/16 18:20 10/01/16 19:24 Influenza Type A Antigen Neg for Influ A (NEG) Influenza Type B Antigen Neg for Influ B (NEG) Bedside Lactic Acid Venous 0.87 mmol/L (0.90-1.70) Laboratory results as reviewed by me. Medications Administered Medications (Trade) Dose Ordered Sig/Cole Route Start Time Stop Time Status Last Admin Dose Admin Sodium Chloride (Nss 1000ml) 1,000 ml @ 999 mls/hr Q1H1M STAT IV 10/01/16 18:11 10/01/16 19:11 DC 10/01/16 18:30 999 MLS/HR Acetaminophen (Tylenol Tab) 1,000 mg NOW STAT PO 10/01/16 18:13 10/01/16 18:14 DC 10/01/16 18:34 1,000 MG Piperacillin Sod/ Tazobactam Sod 4.5 gm 4.5 gm NOW STAT IV 10/01/16 18:34 10/01/16 18:36 DC 10/01/16 19:29 4.5 GM Vancomycin HCl/ Sodium Chloride (Vancomycin Inj/ Nss 500ml) 540 ml @ 200 mls/hr NOW ONCE IV 10/01/16 19:00 10/01/16 21:41 10/01/16 19:51 200 MLS/HR ECG Indication: other (sepsis) Rate (beats per minute): 88 Rhythm: normal sinus Findings: PAC, RBBB, other (Nonspecific ST depressions, QTC of 505) ED Course 1806: The patient was evaluated in room C4. A complete history and physical exam was performed. 1810: Ordered NSS 1000 ml @ 999 mls/hr IV. 1812: Ordered Tylenol Tab 1000 mg PO. 1833: Ordered Zosyn IV 4.5 gm IV. 1845: I reevaluated the patient and he is stable. 1899: Ordered Vancomycin HCl 2000 mg/Sodium Chloride 540 ml @ 200 mls/hr IV. 1938: Blood has never been drawn on the patient yet. 1958: Upon reevaluation, the patient is stable. He is more awake. However, his most recent blood pressure was systolic 70. The nurses are checking to see if the reading was accurate or not, because the patient has not been hypotensive during this stay. Discussed results and treatment plan with the patient. He verbalized understanding and agreement with the treatment plan. The patient will be evaluated for further management. 1999: I discussed the patient with Dr. Abdi - [facility] hospitalist - he will evaluate the patient for further treatment. 2014: I reevaluated the patient and his repeat blood pressure is systolic 80s, thus the fluid bolus has been already started. Medical Decision Differential: Viral, Pharyngitis, Cellulitis, Pneumonia, Influenza, Meningitis, Sepsis, Bacteremia, UTI/Pyelonephritis, Endocrine, Toxicologic, amongst other pathologies entertained. 86 yr old male arrives confused, febrile and hypoxic with normal BM and normal HR. Clearly septic though on arrival not in shock. Fluids begun. CXR with KATHY infiltrate. Prolonged time from arrival to labs given poor veins though blood cultures were obtained early and thus empiric abx were able to be given. His mental status is definitely improving with fluids. After some time in ED BP started dropping thus further fluid resus given with improvement in BP. He was breathing comfortably, no distress and stable. Will need to come in to hospitalist service. Consults Time Called: 1939 Consulting Physician: Dr. Jin CHAHAL hospitalist Returned Call: 1999 I discussed the patient with Dr. Jin CHAHAL hospitalist - he will evaluate the patient for further treatment. Impression Primary Impression: Sepsis Additional Impressions: PNA (pneumonia) Confusion Hypoxia Scribe Attestation The scribe's documentation has been prepared under my direction and personally reviewed by me in its entirety. I confirm that the note above accurately reflects all work, treatment, procedures, and medical decision making performed by me. Departure Information Dispostion Being Evaluated By Hospitalist Referrals [facility] (PCP) Patient Instructions My [facility] Problem Qualifiers Primary Impression: Sepsis Sepsis type: sepsis due to unspecified organism Qualified Codes: A41.9 - Sepsis, unspecified organism Additional Impressions: PNA (pneumonia) Pneumonia type: due to unspecified organism Laterality: left Lung location : upper lobe of lung Qualified Codes: J18.1 - Lobar pneumonia, unspecified organism
--- NOTE | 2016-10-01 18:31 | DIAGNOSTIC IMAGING REPORT ---
CHEST ONE VIEW PORTABLE CLINICAL HISTORY: fever COMPARISON STUDY: 08/19/2016 FINDINGS: The heart is borderline enlarged. There is underlying chronic lung disease. There is a 4.7 cm left perihilar airspace opacity. As no mass was visualized in this location on the CT scan dated to 317, this abnormality is likely inflammatory. There are no significant pleural effusions. There is no failure.[ IMPRESSION: 4.7 cm left perihilar airspace opacity, likely inflammatory. Films subsequent to treatment are recommended in follow-up. Electronically signed by: Sridhar Chowdary M.D. 10/01/2016 6:29 PM Dictated Date/Time: 10/01/2016 6:28 PM
[2016-10-01] MEDS ORDERED: VANCOMYCIN INJ 2,000 MG in SODIUM CHLORIDE 0.9% 250ML 250 ML IV STA (18:34)
[2016-10-01] MEDS ORDERED: PIPERACILLIN/TAZOBACTAM 4.5 GM/100ML D5W IV STA (18:34)
[2016-10-01] MEDS ORDERED: VANCOMYCIN INJ 2,000 MG in SODIUM CHLORIDE 0.9% 500ML 500 ML IV ONE (19:00)
[2016-10-01] MEDS ORDERED: MTHH1 PO (19:09)
[2016-10-01] MEDS ORDERED: SODIUM CHLORIDE 0.9% 1000ML 1,000 ML IV SCH (19:52)
[2016-10-01] MEDS ORDERED: VANCOMYCIN INJ 1,000 MG in SODIUM CHLORIDE 0.9% 250ML 250 ML IV STA (19:58)
[2016-10-01] MEDS ORDERED: ACETAMINOPHEN 325 MG TAB PO PRN (20:00)
[2016-10-01] MEDS ORDERED: ONDANSETRON INJ 2 MG/ML 2 ML VIAL IV PRN (20:00)
[2016-10-01] MEDS ORDERED: ZOLPIDEM TARTRATE 5 MG TAB PO PRN (20:00)
[2016-10-01] MEDS ORDERED: NITROGLYCERIN 0.4 MG SL PER TAB CHARGE SL PRN ×2 (20:00)
[2016-10-01] MEDS ORDERED: CEFTRIAXONE SOD INJ 1 GM in DEXTROSE 5% ADD-VANTAGE 50ML 50 ML IV SCH (20:00)
[2016-10-01] MEDS ORDERED: LEVOFLOXACIN / D5W 500 MG in PREMIXED IN D5W 100 ML IV SCH ×2 (20:00→22:00)
[2016-10-01] MEDS ORDERED: POTASSIUM CHLORIDE 20 MEQ TABCR PO SCH (20:00)
[2016-10-01] MEDS ORDERED: METHYLPREDNISOLONE IV 60 MG in SYRINGE 0 ML IV SCH (20:00)
[2016-10-01 20:09] LABS: BASO % 0.1 %; BASO ABS # 0.01 K/uL (0-0.2); COMPLETE YES; EOS % 0.8 %; HEMATOCRIT 38.7 % (42-52); IG% 0.6 %; LYMPH ABS # 1.23 K/uL (1.2-3.4); MEAN CELL VOLUME 93.3 fL (80-100); MEAN CORPUSCULAR HEMOGLOBIN 29.9 pg (25-34); MEAN PLATELET VOLUME 9.9 fL (7.4-10.4); MONO % 12.4 %; NEUT % 69.1 %; PLATELET COUNT 188 K/uL (130-400); RED BLOOD COUNT 4.15 M/uL (4.7-6.1); WHITE BLOOD COUNT 7.25 K/uL (4.8-10.8)
[2016-10-01] MEDS ORDERED: GLUCOSE 10 TABS/TUBE PO PRN (20:15)
[2016-10-01] MEDS ORDERED: DEXTROSE 50% 50 ML SYR IV PRN (20:15)
[2016-10-01] MEDS ORDERED: GLUCAGON FOR INJ 1 MG VIAL SQ PRN (20:15)
[2016-10-01] MEDS ORDERED: LEVALBUTEROL 1.25MG/0.5ML NEB INH PRN (20:15)
[2016-10-01] MEDS ORDERED: IPRATROPIUM BROMIDE NEB SOLN 0.02% 2.5 ML VIAL INH PRN (20:15)
[2016-10-01] MEDS ORDERED: GLUCOSE 40% GEL 15 GM TUBE PO PRN (20:15)
[2016-10-01 20:18] LABS: PROTHROMBIN TIME (PATIENT) 10.9 SECONDS (9.0-12.0)
[2016-10-01] MEDS ORDERED: VANCOMYCIN CONSULT ACTIVE PRN (20:30)
[2016-10-01] MEDS ORDERED: PIPERACILL/TAZOBAC CONSULT ACTIVE PRN (20:30)
[2016-10-01 20:37] LABS: BUN/CREATININE RATIO 15.4 (10-20); CALCIUM 8.4 mg/dl (8.5-10.1); CKMB/CK RATIO 1.1 (0-3.0); CREATININE 1.8 mg/dl (0.60-1.40); MAGNESIUM 2.4 mg/dl (1.8-2.4); POTASSIUM 2.5 mmol/L (3.5-5.1)
[2016-10-01] MEDS ORDERED: LEVOFLOXACIN CONSULT ACTIVE PRN ×2 (20:45→22:00)
[2016-10-01] MEDS ORDERED: TAMSULOSIN HCL 0.4 MG CAP PO SCH (21:00)
[2016-10-01] MEDS ORDERED: INSULIN GLARGINE SOLOSTAR 100 UNITS/ML 3 ML PEN SC SCH (21:00)
[2016-10-01] MEDS ORDERED: HYDROCORTISONE 10 MG TAB PO SCH (21:00)
[2016-10-01] MEDS ORDERED: LEVALBUTEROL/IPRATROPIUM NEB INH SCH (21:00)
[2016-10-01 21:36] VITALS: BP 92/55; PULSE 72; TEMP 36.7; O2SAT 95; Ht 185.4 cm; Wt 98.2 kg
--- NOTE | 2016-10-01 21:41 | History and Physical ---
History & Physical Date & Time of Service: Oct 01, 2016 at 21:26 Chief Complaint: Acute On Chronic Respiratory Failure W/ Hypoxia An Primary Care Physician: Wilver Franco M.D. History of Present Illness Source: patient The patient is an 86-year-old male who presents to the emergency department with decreased oral intake, generalized myalgias, sore throat and per his worsening confusion over the past 24 hours or so. She reports that he complained of nausea last evening, but did not vomit or have abdominal pain. She has not noticed any difference in his breathing. He does have a history of urinary tract infection, but she has not noticed a change in urine function. The patient is somewhat lethargic, and is able to contribute a little to his history of present illness, but this is primarily addressed by his . Past Medical/Surgical History Medical Problems: (1) Anemia Status: Chronic (2) COPD (chronic obstructive pulmonary disease) Status: Chronic (3) Coronary artery disease Status: Chronic (4) CVA (cerebrovascular accident) Status: Resolved (5) Essential hypertension Status: Chronic (6) HTN (hypertension) Status: Chronic (7) Hypercholesterolemia Status: Chronic (8) Hyperparathyroidism Status: Chronic (9) Hypotension Status: Chronic (10) MT (myocardial infarction) Status: Resolved (11) Peripheral vascular disease Status: Chronic (12) TIA (transient ischemic attack) Status: Resolved Surgical Problems: (1) H/O heart artery stent Status: Resolved Family History FH: heart disease Hypertension Social History Smoking Status: Former Smoker Drug Use: none Marital Status: Housing status: lives with family, skilled nursing Occupational Status: retired Immunizations History of Influenza Vaccine: Yes Influenza Vaccine Date: Jun 08, 2013 History of Tetanus Vaccine?: Unknown History of Pneumococcal: Yes History of Hepatitis B Vaccine: Unknown Multi-Drug Resistant Organisms History of MDRO: No Allergies Coded Allergies: No Known Allergies (Unverified , 10/01/16) Home Medications Scheduled Aspirin (Aspirin Chewable), 81 MG PO DAILY Atenolol (Atenolol), 12.5 MG PO DAILY Atorvastatin (Lipitor), 20 MG PO HS Bisacodyl (Bisacodyl), 5 MG PO BID Calcium Polycarbophil (Fiber Laxative), 1 TAB PO DAILY Clopidogrel (Plavix), 75 MG PO DAILY Docusate Sodium (Colace), 100 MG PO BID Dutasteride (Avodart), 0.5 MG PO DAILY Famotidine (Pepcid), 20 MG PO HS Fludrocortisone Acetate (Florinef), 0.1 MG PO DAILY Fluticasone Prop/Salmeterol (Advair Diskus 250-50 Mcg/Dose), 1 PUFF INH BID Fluticasone Propionate (Fluticasone Propionate), 2 SPRAYS NA DAILY Gabapentin (Gabapentin), 600 MG PO BID Hydrocortisone (Cortef), 40 MG PO BID Insulin Glargine (Lantus Solostar), 45 UNIT SC QPM Levalbuterol Tartrate (Levalbuterol Tartrate Hfa), 0.63 TID Lidocaine (Lidocaine), 1 PATCH TD QAM Magnesium Oxide (Mag-Ox), 400 MG PO BID Methenamine Hippurate (Methenamine Hippurate), 1 GM PO HS Nitroglycerin (Nitrostat), 1 TAB SL UD Omeprazole (Prilosec), 20 MG PO DAILY Oxycodone HCl (Oxycontin), 15 MG PO Q12 Polyethylene Glycol-Propylene (Systane Ultra), 1 DROPS OPB BID Potassium Chloride (Klor-Con M20), 2 TAB PO BID Pseudoephedrine-Guaifenesin (Mucinex D), 1 TAB PO BID Tamsulosin HCl (Tamsulosin HCl), 0.4 MG PO HS Torsemide (Demadex), 100 MG PO DAILY Torsemide (Demadex), 50 MG PO 3XWK Scheduled PRN Acetaminophen (Tylenol), 1,000 MG PO AMPM PRN for PA Miscellaneous Medications Multiple Vitamins W/ Minerals (Therems M) Review of Systems The patient , along with his 's observations, denies chest pain, palpitations, shortness of breath, cough, lower extremity swelling, vision change, hearing change, fevers, chills, sweats, weight change, vomiting, abdominal pain, pelvic pain, blood in urine or stool, dysuria, urinary frequency or urgency, lightheadedness, dizziness, headache, rash, abnormal bruising or bleeding, imbalance, focal weakness, numbness or tingling in arms or legs, arthralgias or myalgias, back or neck pain, night sweats, or allergy symptoms. The review of systems is otherwise negative other than for that already noted above, and at least 10 systems have been reviewed. Physical Exam Vital Signs Date Time Temp Pulse Resp B/P Pulse Ox O2 Delivery O2 Flow Rate FiO2 10/01/16 21:03 36.9 66 24 91/51 96 10/01/16 20:44 68 24 96/61 94 Nasal Cannula 2.0 10/01/16 20:01 88 16 81/54 99 2.0 10/01/16 18:36 86 18 137/84 99 Nasal Cannula 2.0 10/01/16 18:01 95 Nasal Cannula 2.0 10/01/16 17:56 37.9 90 20 135/77 88 Room Air The patient is awake, alert and intermittently oriented, looks disheveled, and dehydrated, lying in bed and in no acute distress. HEENT--PERRL, EOMI, mucous membranes and oropharynx very dry. Neck--supple, no JVD or bruits, thyroid normal, trachea midline, no adenopathy. Heart--tachycardic , regular with PVCs, no murmurs, rubs or gallops. Lungs--coarse sounds bilaterally, mild respiratory distress, no accessory muscle use. Abdomen--normal bowel sounds and soft, nontender and nondistended, no hernias or masses, no organomegaly. Extremities--no cyanosis, clubbing or edema. There are good distal pulses b/l. Dermatologic--normal skin turgor, normal color, warm and dry, no abnormal lymph nodes, no rash. Neurologic--cranial nerves II through XII grossly intact. Rheumatologic--normal range of motion, nontender, muscles and joints. Psychiatric--flat affect Diagnostics Laboratory Results Results Past 24 Hours Test 10/01/16 18:20 10/01/16 19:24 10/01/16 19:57 Range/Units Influenza Type A Antigen Neg for Influ A NEG Influenza Type B Antigen Neg for Influ B NEG Bedside Lactic Acid Venous 0.87 0.90-1.70 mmol/L White Blood Count 7.25 4.8-10.8 K/uL Red Blood Count 4.15 4.7-6.1 M/uL Hemoglobin 12.4 14.0-18.0 g/dL Hematocrit 38.7 42-52 % Mean Corpuscular Volume 93.3 80-100 fL Mean Corpuscular Hemoglobin 29.9 25-34 pg Mean Corpuscular Hemoglobin Concent 32.0 32-36 g/dl Platelet Count 188 130-400 K/uL Mean Platelet Volume 9.9 7.4-10.4 fL Neutrophils (%) (Auto) 69.1 % Lymphocytes (%) (Auto) 17.0 % Monocytes (%) (Auto) 12.4 % Eosinophils (%) (Auto) 0.8 % Basophils (%) (Auto) 0.1 % Neutrophils # (Auto) 5.01 1.4-6.5 K/uL Lymphocytes # (Auto) 1.23 1.2-3.4 K/uL Monocytes # (Auto) 0.90 0.11-0.59 K/uL Eosinophils # (Auto) 0.06 0-0.5 K/uL Basophils # (Auto) 0.01 0-0.2 K/uL RDW Standard Deviation 58.2 36.4-46.3 fL RDW Coefficient of Variation 17.2 11.5-14.5 % Immature Granulocyte % (Auto) 0.6 % Immature Granulocyte # (Auto) 0.04 0.00-0.02 K/uL Nucleated RBC Absolute Count (auto) 0.05 0-0 K/uL Nucleated Red Blood Cells % 0.7 % Prothrombin Time 10.9 9.0-12.0 SECONDS Prothromb Time International Ratio 1.0 0.9-1.1 Sodium Level 142 136-145 mmol/L Potassium Level 2.5 3.5-5.1 mmol/L Chloride Level 98 98-107 mmol/L Carbon Dioxide Level 33 21-32 mmol/L Anion Gap 10.0 3-11 mmol/L Blood Urea Nitrogen 28 7-18 mg/dl Creatinine 1.80 0.60-1.40 mg/dl Est Creatinine Clear Calc Drug Dose 36.6 ml/min Estimated GFR () 38.6 Estimated GFR (Non- 33.3 BUN/Creatinine Ratio 15.4 10-20 Random Glucose 122 70-99 mg/dl Calcium Level 8.4 8.5-10.1 mg/dl Magnesium Level 2.4 1.8-2.4 mg/dl Total Bilirubin 0.7 0.2-1 mg/dl Direct Bilirubin 0.1 0-0.2 mg/dl Aspartate Amino Transf (AST/SGOT) 13 15-37 U/L Alanine Aminotransferase (ALT/SGPT) 21 12-78 U/L Alkaline Phosphatase 78 45-117 U/L Total Creatine Kinase 100 39-308 U/L Creatine Kinase MB 1.1 0.5-3.6 ng/ml Creatine Kinase MB Ratio 1.1 0-3.0 Troponin I 0.028 0-0.045 ng/ml Total Protein 6.2 6.4-8.2 gm/dl Albumin 2.9 3.4-5.0 gm/dl Microbiology Results 10/01/16 Blood Culture, Received Pending 10/01/16 Blood Culture, Received Pending Diagnostic Radiology Patient Name: ESTELITA MCMILLAN Unit Number: [id number] Dictated: 10/01/161827 Transcribed: 10/01/161827 ARG Printed Date/Time: [~ rep prt dt]/[~ rep prt tm] [~ rep ct labl] - [~ rep ct ivnm] [facility] [place] [address] Dictated: 10/01/161827 Transcribed: 10/01/161827 ARG Printed Date/Time: [~ rep prt dt]/[~ rep prt tm] [~ rep ct labl] - [~ rep ct ivnm] CHEST ONE VIEW PORTABLE CLINICAL HISTORY: fever COMPARISON STUDY: 08/19/2016 FINDINGS: The heart is borderline enlarged. There is underlying chronic lung disease. There is a 4.7 cm left perihilar airspace opacity. As no mass was visualized in this location on the CT scan dated to 317, this abnormality is likely inflammatory. There are no significant pleural effusions. There is no failure.[ IMPRESSION: 4.7 cm left perihilar airspace opacity, likely inflammatory. Films subsequent to treatment are recommended in follow-up. Electronically signed by: Sridhar Chowdary M.D. 10/01/2016 6:29 PM Dictated Date/Time: 10/01/2016 6:28 PM The status of this report is Signed. Draft = Not yet reviewed or approved by Radiologist. Signed = Reviewed and approved by Radiologist. <AttendingPhy></AttendingPhy> <FamilyPhy></FamilyPhy> <PrimaryPhy>[facility]</PrimaryPhy> <UnitNumber>[id number]</UnitNumber> <VisitNumber> [id number]</VisitNumber> <PatientName>ESTELITA MCMILLAN</PatientName> <DateOfBirth> 1930</DateOfBirth> <Location>[facility]</Location> <ServiceDate>10/01/16</ ServiceDate> <MNE>ESINDI</MNE> <OrderingPhy>Ralf Paez M.D.</OrderingPhy > <OrderingPhyMNE>f rep ord dr villareal</OrderingPhyMNE> <DictatingPhyMNE>f rep dict dr villareal</DictatingPhyMNE> <CCListMNE>f rep ct dionna</CCListMNE> <AdmittingPhyMNE>f pt admit dr villareal</AdmittingPhyMNE> <AttendingPhyMNE>f pt attend dr villareal</ AttendingPhyMNE> <ConsultingPhyMNE>f pt consult dr villareal</ConsultingPhyMNE> <FamilyPhyMNE>f pt fam dr villareal</FamilyPhyMNE> <OtherPhyMNE>f pt other dr villareal</OtherPhyMNE> < PrimaryPhyMNE>f pt prim care dr villareal</PrimaryPhyMNE> <ReferringPhyMNE>f pt referring dr villareal</ReferringPhyMNE> EKG EKG shows normal sinus rhythm at 88, with premature supraventricular complexes, right bundle branch block, left anterior fascicular block, no change compared to 08/19/2016. Impression Assessment and Plan Acute on chronic respiratory failure with hypoxia /Left upper lobe lung lesion with hypoxia--placed on vancomycin IV per renal dosing, Zosyn 3.375 mg IV every 8 hours, levofloxacin 500 mg IV daily, guaifenesin extended release 600 mg by mouth twice a day, Pulmicort Respules 0.5 mg inhaled twice a day, and nasal cannula 2 L of oxygen titrating to keep pulse ox greater than or equal to 92%, he was 88% on admission. This lesion of note was not present on a previous recent CT. 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 Whiteside. For now will hold levo albuterol tartrate HFA, and Advair Diskus 250/50 one inhalation twice a day. CAD/hypertension/MT/chronic CHF/CVA--patient is very dehydrated at this point. We will hold torsemide 100 mg by mouth daily, torsemide 50 mg by mouth 3 times per week. We'll continue atenolol 12.5 mg by mouth daily, chewable aspirin 81 mg by mouth daily, clopidogrel 75 mg by mouth daily, mag oxide 400 mg by mouth twice a day, potassium chloride 40 mEq by mouth twice a day with an additional dose now for a potassium of 2.5. We'll gently rehydrate with normal saline at 100 mils per hour. We'll follow serial BMP and magnesium levels. Diabetes mellitus--he has had significantly decreased oral intake over the past few weeks. With decrease Lantus 45 units to 15 units subcutaneous every afternoon and place on Accu-Cheks before meals and at bedtime with NovoLog coverage. Hypercholesterolemia--continue atorvastatin 20 mg by mouth at bedtime. Adrenal insufficiency/Orthostatic hypotension--continue Florinef 0.1 mg by mouth daily and Cortef 40 mg by mouth twice a day. We'll add hydrocortisone 50 mg IV every 8 hours for stress dosing. BPH/recurrent UTI--continue tamsulosin but increased from 0.4-0.8 mg at bedtime , and continue Avodart 0.5 mg by mouth daily. Continue with phentermine hippurate 1 g by mouth at bedtime. GERD--continue famotidine 20 mg by mouth at bedtime, and change omeprazole 20 mg by mouth daily to pantoprazole 40 mg by mouth daily. Peripheral neuropathy--continue gabapentin 600 mg by mouth twice a day. Chronic pain--continue OxyContin 15 mg by mouth every 12 hours and lidocaine patch apply every morning. Allergic rhinitis--continue fluticasone nasal spray 2 sprays each nostril daily. Bowel prep--continue physical, fiber laxative, and Colace. Dry eye--continue Systane ultra 1 drop OPB twice a day. Level of Care Telemetry Advanced Directives Existing Advance Directive: No Existing Living Will: No Existing Power of Radio Repairman: No Resuscitation Status FULL RESUSCITATION VTE Prophylaxis VTE Risk Assessment Done? Y/N: Yes Risk Level: Moderate Given or contraindicated: SCD's
[2016-10-01] MEDS: INSULIN ASPART 100 UNITS/ML 3 ML PEN SC SCH (22:06)
[2016-10-01] MEDS: INSULIN GLARGINE SOLOSTAR 100 UNITS/ML 3 ML PEN SC SCH (22:07)
[2016-10-01 22:08] LABS: URINE APPEARANCE CLOUDY (CLEAR); URINE BILIRUBIN NEG (NEG); URINE COLOR YELLOW; URINE NITRITE POS (NEG); URINE PH 7.5 (4.5-7.5); URINE SPECIFIC GRAVITY 1.019 (1.000-1.030); UROBILINOGEN NEG (NEG); ZZUR CULT IF INDIC CLEAN CATCH YES
[2016-10-01 22:11] LABS: MANUAL MICROSCOPIC REQUIRED? NO; REVIEW REQ? NO
[2016-10-01] MEDS: OXYCODONE HCL 15 MG TABCR (OXYCONTIN) PO SCH (22:14)
[2016-10-01 22:16] LABS: SULFASALICYLIC ACID POS (NEG)
[2016-10-01] MEDS: TAMSULOSIN HCL 0.4 MG CAP PO SCH (22:32)
[2016-10-01] MEDS: ARTIFICIAL TEARS OP SOLN OPB SCH ×2 (22:34)
[2016-10-01] MEDS: SODIUM CHLORIDE 0.9% 1000ML 1,000 ML IV SCH (22:34)
[2016-10-01] MEDS: POTASSIUM CHLORIDE 20 MEQ TABCR PO SCH (22:35)
[2016-10-01] MEDS: METHENAMINE HIPPURATE 1 GM TAB PO SCH (22:35)
[2016-10-01] MEDS: DOCUSATE SODIUM 100 MG CAP PO SCH (22:36)
[2016-10-01] MEDS: GUAIFENESIN 600 MG TABCR PO SCH (22:36)
[2016-10-01] MEDS: MAGNESIUM OXIDE 400 MG TAB PO SCH (22:36)
[2016-10-01] MEDS: GABAPENTIN 600 MG TAB PO SCH (22:36)
[2016-10-01] MEDS: FAMOTIDINE 20 MG TAB PO SCH (22:37)
[2016-10-01] MEDS: ATORVASTATIN 20 MG TAB PO SCH (22:37)
[2016-10-01] MEDS: BISACODYL 5 MG TABEC PO SCH (22:38)
[2016-10-01] MEDS: AVODART~ORDER AWAITING ACTION SCH (22:39)
[2016-10-01] MEDS: HYDROCORTISONE IV 50 MG in SYRINGE 0 ML IV SCH (23:46)
[2016-10-02] VITALS (11 sets, daily range): BP systolic 94–115; BP diastolic 57–75; PULSE 60–96; TEMP 36.5–36.8; O2SAT 87–99
[2016-10-02] MEDS: OXYCODONE HCL 15 MG TABCR (OXYCONTIN) PO SCH ×3 (00:49→21:12)
[2016-10-02] MEDS: PIPERACILL/TAZOBAC IV 3.375 GM in DEXTROSE 5% 100ML 100 ML IV SCH ×4 (00:49→23:14)
[2016-10-02] MEDS: IPRATROPIUM BROMIDE NEB SOLN 0.02% 2.5 ML VIAL INH SCH ×4 (02:53→18:49)
[2016-10-02] MEDS: LEVALBUTEROL 1.25MG/0.5ML NEB INH SCH ×4 (02:53→18:49)
[2016-10-02] MEDS: SODIUM CHLORIDE 0.9% 1000ML 1,000 ML IV SCH ×2 (06:29→18:37)
[2016-10-02] MEDS: HYDROCORTISONE IV 50 MG in SYRINGE 0 ML IV SCH ×3 (06:29→22:31)
[2016-10-02] MEDS: BUDESONIDE 0.5 MG/2 ML VIAL (PULMICORT) INH SCH ×2 (06:52→18:49)
[2016-10-02 07:16] LABS: BASO % 0.2 %; BASO ABS # 0.01 K/uL (0-0.2); COMPLETE YES; EOS % 0.4 %; HEMATOCRIT 37.2 % (42-52); IG% 0.4 %; LYMPH % 15.2 %; LYMPH ABS # 0.78 K/uL (1.2-3.4); MEAN CELL VOLUME 93.5 fL (80-100); MEAN CORPUSCULAR HEMOGLOBIN 29.1 pg (25-34); MEAN CORPUSCULAR HGB CONC 31.2 g/dl (32-36); MEAN PLATELET VOLUME 10.3 fL (7.4-10.4); MONO % 11.1 %; NEUT % 72.7 %; PLATELET COUNT 173 K/uL (130-400); RED BLOOD COUNT 3.98 M/uL (4.7-6.1); WHITE BLOOD COUNT 5.13 K/uL (4.8-10.8)
[2016-10-02 07:44] LABS: BUN/CREATININE RATIO 15.2 (10-20); CALCIUM 8.6 mg/dl (8.5-10.1); CREATININE 1.6 mg/dl (0.60-1.40); MAGNESIUM 2.5 mg/dl (1.8-2.4); POTASSIUM 2.8 mmol/L (3.5-5.1)
[2016-10-02] MEDS: AVODART~ORDER AWAITING ACTION SCH ×2 (08:00→16:00)
[2016-10-02] MEDS: FLUDROCORTISONE ACETATE 0.1 MG TAB PO SCH (08:05)
[2016-10-02] MEDS: CLOPIDOGREL BISULFATE 75 MG TAB PO SCH (08:05)
[2016-10-02] MEDS: PANTOprazole SOD 40 MG TAB PO SCH (08:05)
[2016-10-02] MEDS: CALCIUM POLYCARBOPHIL 1 TAB PO SCH (08:05)
[2016-10-02] MEDS: BISACODYL 5 MG TABEC PO SCH ×2 (08:06→21:12)
[2016-10-02] MEDS: DOCUSATE SODIUM 100 MG CAP PO SCH ×2 (08:06→21:11)
[2016-10-02] MEDS: GUAIFENESIN 600 MG TABCR PO SCH ×2 (08:06→21:12)
[2016-10-02] MEDS: ASPIRIN 81 MG CHEW PO SCH (08:06)
[2016-10-02] MEDS: MAGNESIUM OXIDE 400 MG TAB PO SCH ×2 (08:06→21:12)
[2016-10-02] MEDS: GABAPENTIN 600 MG TAB PO SCH ×2 (08:06→21:12)
[2016-10-02] MEDS: ARTIFICIAL TEARS OP SOLN OPB SCH ×4 (08:07→21:11)
[2016-10-02] MEDS: POTASSIUM CHLORIDE 20 MEQ TABCR PO SCH ×2 (08:07→21:11)
[2016-10-02] MEDS: FLUTICASONE PROPIONATE NA SPR 16 GM BTL SCH (08:08)
[2016-10-02] MEDS: LIDODERM (LIDOCAINE) PATCH 5% TD SCH (08:08)
[2016-10-02] MEDS: INSULIN ASPART 100 UNITS/ML 3 ML PEN SC SCH ×4 (08:19→21:16)
[2016-10-02] MEDS ORDERED: TORSEMIDE 20 MG TAB PO SCH (09:00)
[2016-10-02] MEDS ORDERED: NURSING VERBAL MED ORDER ONE (09:00)
--- NOTE | 2016-10-02 09:07 | PULMONARY CONSULTATION ---
DATE OF CONSULTATION: 10/02/2016 HISTORY OF PRESENT ILLNESS: The patient is an 86-year-old male who was readmitted to the hospital with a sepsis-like syndrome and Dr. Abdi has asked me to evaluate the patient from a pulmonary standpoint. He is a member of the [employer], generally gets around with a wheelchair, although he states he can walk about 300 feet with help. He presented to the Emergency Room with poor appetite, was seen by Dr. En Paez, and his states he had some confusion associated with a sore throat, complaining of some nausea as well but did not have any vomiting or evidence of aspiration. He has had some constipation as well. In the Emergency Room, his vital signs were stable with a temperature of 37.9. His oxygen saturation was 88% on room air, 99% on 2 liters. His pulmonary exam was normal. Chest x-ray suggested left perihilar airspace opacity of almost 5 cm. When I compared this to a CAT scan that he had of his thorax when he was here in August, this is new. At that time, he had superior segment left lower lobe infiltrate and several pulmonary nodules. He is seen by Dr. Abdi and I have been asked to evaluate him from a pulmonary standpoint. The patient is very lucid at the present time and states he feels considerably improved. He has not had any cough or fevers, night sweats. Denies any aspiration. He has never had TB. He is originally from [place], has not been in the service. 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 He does have a heavy history of smoking, smoked for about 40-45 years, at least a pack a day, quit about 8 years ago. Again, he has not been in the service. REVIEW OF SYSTEMS: Otherwise unremarkable. PAST MEDICAL HISTORY: Significant for chronic obstructive lung disease, sepsis, pneumonia, stroke, hypertension, hyperlipidemia, hyperparathyroidism, coronary artery disease with KS, severe peripheral vascular disease, TIA. PAST SURGICAL HISTORY: Stent placement. SOCIAL HISTORY: He has about a [id number] history of cigarette smoking, quit about 8 years ago. He is not an alcohol user. He has not had any industrial exposures. He lives with his family. Has nursing help for ambulating and caring for him at [facility]. He appears to be up to date with immunizations. ALLERGIES: None. MEDICATIONS: Noted. FAMILY HISTORY: Unknown. When I reviewed his records, he had been seen by Dr. Herrera back in August and I saw the patient on 08/21/2016, he was much improved, reading the newspaper, and he was considerably improved. He did have a patchy infiltrate in the superior segment of the left lower lobe at that time consistent with pneumonia. Urine culture grew out pseudomonas. Blood cultures were unremarkable. MRSA DNA surveillance screen was negative. PHYSICAL EXAMINATION: GENERAL: Reveals the patient to be quite comfortable. VITAL SIGNS: His blood pressure is 105/75, respiratory rate is 18, pulse is 70 and regular, temperature is 36.5, oxygen saturation 99% on room air. His weight is 97.3 kilograms. When he was here in August, his weight was 99.2 kilograms on the , so it is relatively stable. HEENT: Unremarkable. No facial asymmetry is noted and there is no rhinitis. Posterior pharynx is unremarkable. There is slight erythema along the posterior pharyngeal wall with some mild cobblestoning. No thrush is noted. NECK: No adenopathy is noted. Carotid upstroke is decreased. No bruits auscultated. Thyroid nonpalpable. No nodes are palpable anywhere. CHEST: Shows fairly good expansion with deep inspiration. HEART: Regular rate and rhythm. No murmurs are heard. LUNGS: Reveal decreased breath sounds bilaterally, otherwise are clear except for a few crackles in the left lower lobe area. ABDOMEN: Soft, nontender. EXTREMITIES: He has no cyanosis, clubbing or edema. EKG reveals what appears to be a normal sinus rhythm with premature atrial contractions, right bundle-branch block, and left anterior fascicular block. Compared to previous EKG of 08/19/2016, no change was noted. Chest x-ray reveals a 4.7 cm left perihilar infiltrate which is new, consistent with pneumonia. LABORATORY DATA: White count 5.13, hemoglobin 11.6, hematocrit 37.2% with platelet count of 173,000. Chemistry profile showed potassium of 2.8 with a BUN 24, creatinine 1.6. Sugars in the 100-158 range. CK enzymes, coagulation profile were unremarkable. Urinalysis revealed many inflammatory cells. Influenza A and B are negative. Blood cultures are pending. IMPRESSION: 1. Left upper lobe pneumonia which is left perihilar area, will be consistent with a healthcare facility associated pneumonia since he was hospitalized in August. 2. Sepsis. 3. Urinary tract infection. 4. Chronic obstructive pulmonary disease with exacerbation. 5. History of stroke. RECOMMENDATIONS: 1. Continue all his present medications. He is on Levaquin, Zosyn, and apparently has a consult for vancomycin as well. He will need that coverage until staph could be ruled out. 2. Continue with Atrovent and Xopenex. At this point, I do not think he needs any other inhalers and I do not believe he would steroids at this point. 3. Good DVT prophylaxis with SCDs and perhaps some subcutaneous heparin or Lovenox. Thanks for asking me to evaluate Mr. Enciso. I will be glad to follow along with you during his hospital stay.
--- NOTE | 2016-10-02 09:22 | Clinical Documentation Query ---
FELICITY Staley : CLINICAL DOCUMENTATION QUERIES QUERY 1 OF 4 Patient is an 86 year old male admitted for evaluation and treatment of acute on chronic respiratory failure with hypoxia /Left upper lobe lung lesion. He is being treated with IV Vancomycin, IV Zosyn, IV Levaquin, nebs, expectorants, supplemental O2, and will be seen in consultation by pulmonary. As appropriate, consider documentation as suggested below as this significantly impacts DRG assignment. In your clinical opinion is this patient being managed for: ( ) (Possible/likely/suspected) Aspiration and/or gram-negative and/or MRSA pneumonia ( ) Other explanation of clinical findings (Please Explain) ( ) Unable to determine (Please Define) ( ) Need to Discuss ( ) Not Agree The medical record reflects the following clinical findings, treatment, and risk factors. Clinical Indicators: As above Treatment:He is being treated with IV Vancomycin, IV Zosyn, IV Levaquin, nebs, expectorants, supplemental O2, and will be seen in consultation by pulmonary Risk Factors: Age, recent hospitalization, recent antibiotics, aspiration history QUERY 2 OF 4 Admission BUN and creatinine were 28 mg/dl and 1.80 mg/dl. Earlier in the month, serum creatinine was 1.30 mg/dl associated with an estimated GFR in the 40's. He is recieving IVF and his diuretics have been held. Please clarify as clinically appropriate. Thank you. In your clinical opinion is this patient being managed for: ( ) LISANDRO on CKD stage 3 ( ) Other explanation of clinical findings (Please Explain) ( ) Unable to determine (Please Define) ( ) Need to Discuss ( ) Not Agree The medical record reflects the following clinical findings, treatment, and risk factors. Clinical Indicators: As above Treatment:He is recieving IVF and his diuretics have been held, serial chemistries Risk Factors: Age, infection, CKD, hypertension, medications, dehydration, poor intake QUERY 3 OF 4 Patient noted upon admission to be confused per his , "which is not his baseline". Nursing noted upon admission that patient was only oriented to person. He is being treated with multiple IV antibiotics, with cultures pending. He is recieving IVF and being monitored with serial labs. In your clinical opinion is this patient being managed for: ( ) Metabolic encephalopathy ( ) Other explanation of clinical findings (Please Explain) ( ) Unable to determine (Please Define) ( ) Need to Discuss ( ) Not Agree The medical record reflects the following clinical findings, treatment, and risk factors. Clinical Indicators: As above Treatment:He is being treated with multiple IV antibiotics, with cultures pending. He is recieving IVF and being monitored with serial labs. Risk Factors: Age, infection, LISANDRO QUERY 4 OF 4 Documentation includes CHF, not otherwise specified. Historical EMR documentation includes a diagnosis of chronic diastolic CHF. Most recent echocardiogram (11/26) demonstrated an LVEF of 55-60%. RV systolic function was assessed to be normal as well. Please explicitly specify the acuity and type in your patient. In your clinical opinion is this patient being managed for: ( ) Chronic diastolic congestive heart failure ( ) Other explanation of clinical findings (Please Explain) ( ) Unable to determine (Please Define) ( ) Need to Discuss ( ) Not Agree The medical record reflects the following clinical findings, treatment, and risk factors. Clinical Indicators: As above Treatment: Diuretics, antihypertensives Risk Factors: Age, hypertension, PA, COPD Please clarify and document your clinical opinion in the progress notes and discharge summary. Terms such as "probable", "suspected", "likely", "questionable", "possible", or "still to be ruled out" are acceptable. IF IN AGREEMENT, YOU MUST DOCUMENT ABOVE DIAGNOSTIC STATEMENT IN DAILY PROGRESS NOTES AND DISCHARGE SUMMARY. This document is not part of the patient's record. Thank You, Felicity Torres, GUERDA [phone]
[2016-10-02] MEDS ORDERED: POTASSIUM CHLORIDE 20 MEQ TABCR PO ONE (09:30)
--- NOTE | 2016-10-02 09:40 | Pharmacy Progress Note ---
Pharmacy Antibiotic Consult Date of Service: Oct 02, 2016. Pharmacy Dosing Scope Pharmacy is consulted to initiate Vancomycin, Zosyn, and Levaquin IV dosing therapy, order appropriate labs and adjust drug dose/frequency. Subjective The patient is a 86 year old male admitted on Oct 01, 2016 at 19:52 with sepsis , possible source UTI/HAP. Objective Height (Feet): 6 Height (Inches): 1.00 Weight (Kilograms): 97.300 Lab Results (24hrs): Laboratory Tests Test 10/01/16 19:57 10/02/16 06:24 BUN/Creatinine Ratio 15.4 15.2 Blood Urea Nitrogen 28 mg/dl 24 mg/dl Creatinine 1.80 mg/dl 1.60 mg/dl White Blood Count 7.25 K/uL 5.13 K/uL Red Blood Count 4.15 M/uL 3.98 M/uL Hemoglobin 12.4 g/dL 11.6 g/dL Hematocrit 38.7 % 37.2 % Mean Corpuscular Volume 93.3 fL 93.5 fL Mean Corpuscular Hemoglobin 29.9 pg 29.1 pg Mean Corpuscular Hemoglobin Concent 32.0 g/dl 31.2 g/dl Platelet Count 188 K/uL 173 K/uL Mean Platelet Volume 9.9 fL 10.3 fL Neutrophils (%) (Auto) 69.1 % 72.7 % Lymphocytes (%) (Auto) 17.0 % 15.2 % Monocytes (%) (Auto) 12.4 % 11.1 % Eosinophils (%) (Auto) 0.8 % 0.4 % Basophils (%) (Auto) 0.1 % 0.2 % Neutrophils # (Auto) 5.01 K/uL 3.73 K/uL Lymphocytes # (Auto) 1.23 K/uL 0.78 K/uL Monocytes # (Auto) 0.90 K/uL 0.57 K/uL Eosinophils # (Auto) 0.06 K/uL 0.02 K/uL Basophils # (Auto) 0.01 K/uL 0.01 K/uL Assessment & Plan Assessment 86 yr old male from nursing facility with h/o COPD, CKD III, BPH with urinary retention admitted with sepsis secondary to possible UTI/HAP. Patient has a history of recurrent UTI's (most recently grew P.aeruginosa, intermediate to Azactam and sensitive to all other antibiotics tested). Risk factors for resistant organisms: * recent hospital admission 08/17/16 - 08/21/16 for sepsis, HAP and UTI as mentioned above * recent broad spectrum antibiotics use; vanc, zosyn, Levaquin * custodial resident Plan Vancomycin + Zosyn + Levaquin IV for treatment of sepsis secondary to UTI/HAP. Vancomycin * Patient received loading dose of 2000 mg in the ER on 10/01 pm. * Maintenance dose: 1700 mg (17 mg/kg) IV every 24 hours. * CKD stage III. Baseline Scr appears to be around 1.6 mg/dL, however, Scr has ranged from 1.5 to 2.2 mg/dL on previous admissions. Maintenance dose is based on baseline Scr. Dose adjustment may be needed if Scr worsens. * Goal trough level estimate for sepsis/pnx: between 15 - 20 mcg/mL. * Trough level has been ordered for: . * Ordered MRSA nasal swab to help guide further therapy Zosyn * 4.5 g IV bolus dose x1, then 3.375g IV every 8 hours (ext. infusion) for CrCl greater than 20 ml/min Levaquin * Patient received a dose of 500 mg IV in the ER on 10/01 pm. * Start 750 mg IV every 48 hours for CrCl 20-49 ml/min. I will start this dose early since patient did not receive initial dose of 750 mg. Pharmacy will continue to follow and will adjust dose/frequency as necessary. Thank you
[2016-10-02] MEDS: VANCOMYCIN INJ 1,700 MG in SODIUM CHLORIDE 0.9% 500ML 500 ML IV SCH (12:27)
[2016-10-02 13:03] LABS: BUN/CREATININE RATIO 13.7 (10-20); CALCIUM 8.6 mg/dl (8.5-10.1); CREATININE 1.9 mg/dl (0.60-1.40); POTASSIUM 3.6 mmol/L (3.5-5.1)
--- NOTE | 2016-10-02 19:22 | Hospitalist Progress Note ---
Hospitalist Progress Note Date of Service Oct 02, 2016. Subjective Pt evaluation today including: conversation w/ patient patient is feeling better Medications Medications (Trade) Dose Ordered Sig/Cole Route Start Time Stop Time Status Last Admin Dose Admin Guaifenesin 600 mg 600 mg Q12 PO 10/01/16 21:00 10/31/16 20:59 10/02/16 08:06 600 MG Piperacillin Sod/ Tazobactam Sod 3.375 gm/Dextrose 115 ml @ 28 mls/hr Q8H IV 10/02/16 00:00 10/09/16 00:00 10/02/16 15:24 28 MLS/HR Sodium Chloride (Nss 1000ml) 1,000 ml @ 999 mls/hr Q1H1M STAT IV 10/01/16 20:01 10/01/16 21:01 DC 10/01/16 20:08 999 MLS/HR Aspirin (Aspirin Chew) 81 mg DAILY PO 10/02/16 09:00 11/01/16 08:59 10/02/16 08:06 81 MG Atenolol (Tenormin Tab) 12.5 mg DAILY PO 10/02/16 09:00 11/01/16 08:59 10/02/16 08:05 12.5 MG Atorvastatin Calcium (Lipitor Tab) 20 mg HS PO 10/01/16 21:00 10/31/16 20:59 10/01/16 22:37 20 MG Bisacodyl (Dulcolax Tab) 5 mg BID PO 10/01/16 21:00 10/31/16 20:59 10/02/16 08:06 5 MG Calcium Polycarbophil (Fibercon Tab) 1 tab DAILY PO 10/02/16 09:00 11/01/16 08:59 10/02/16 08:05 1 TAB Clopidogrel Bisulfate (plAVix TAB) 75 mg DAILY PO 10/02/16 09:00 11/01/16 08:59 10/02/16 08:05 75 MG Docusate Sodium (coLACE CAP) 100 mg BID PO 10/01/16 21:00 10/31/16 20:59 10/02/16 08:06 100 MG Famotidine (Pepcid Tab) 20 mg HS PO 10/01/16 21:00 10/31/16 20:59 10/01/16 22:37 20 MG Fludrocortisone Acetate (Florinef Tab) 0.1 mg DAILY PO 10/02/16 09:00 11/01/16 08:59 10/02/16 08:05 0.1 MG Fluticasone Propionate (Flonase Nasal [place]) 2 sprays DAILY NA 10/02/16 09:00 11/01/16 08:59 10/02/16 08:08 2 SPRAYS Gabapentin (Neurontin Tab) 600 mg BID PO 10/01/16 21:00 10/31/16 20:59 10/02/16 08:06 600 MG Lidocaine (Lidoderm Patch 5%) 1 patch QAM TD 10/02/16 09:00 11/01/16 08:59 10/02/16 08:08 1 PATCH Magnesium Oxide (Mag-Ox Tab) 400 mg BID PO 10/01/16 21:00 10/31/16 20:59 10/02/16 08:06 400 MG Methenamine Hippurate (Urex Tab) 1 gm HS PO 10/01/16 21:00 10/11/16 20:59 10/01/16 22:35 1 GM Oxycodone HCl (Oxycontin Tab) 15 mg Q12 PO 10/01/16 21:00 10/15/16 20:59 10/02/16 08:09 15 MG Potassium Chloride (Klor-Con Tab) 40 meq BID PO 10/01/16 21:00 10/31/16 20:59 10/02/16 08:07 40 MEQ Artificial Tears (Artificial Tears) 1 drops BID OPB 10/01/16 21:00 10/31/16 20:59 10/02/16 08:07 1 DROPS Pantoprazole Sodium (Protonix Tab) 40 mg QAM PO 10/02/16 09:00 11/01/16 08:59 10/02/16 08:05 40 MG Miscellaneous (Remove Lidoderm Patch) 1 ea DAILY@21 N/A 10/01/16 21:00 10/31/16 20:59 10/01/16 21:50 1 EA Budesonide (Pulmicort Respules 0.5MG/ 2ML Neb Soln) 0.5 mg BIDR INH 10/02/16 08:00 11/01/16 07:59 10/02/16 18:49 0.5 MG Insulin Aspart (novoLOG ASPART) SLIDING SCALE If C... ACHS SC 10/01/16 21:00 10/31/16 20:59 10/02/16 18:34 9 UNITS Ipratropium [place] (Atrovent 0.02% 0.5MG/2.5ML Neb) 0.5 mg Q6R INH 10/01/16 21:00 10/31/16 20:59 10/02/16 18:49 0.5 MG Levalbuterol (Xopenex 1.25MG/ 0.5ML Neb) 1.25 mg Q6R INH 10/01/16 21:00 10/31/16 20:59 10/02/16 18:49 1.25 MG Tamsulosin HCl 0.8 mg 0.8 mg HS PO 10/01/16 21:00 10/31/16 20:59 10/01/16 22:32 0.8 MG Levofloxacin/Prmx (Levaquin / D5W/ Premixed D5W) 100 ml @ 100 mls/hr Q24H IV 10/01/16 22:00 10/01/16 22:59 DC 10/01/16 22:38 100 MLS/HR Insulin Glargine 15 unit 15 unit QPM SC 10/01/16 21:00 10/31/16 20:59 10/01/16 22:07 15 UNIT Sodium Chloride 1,000 ml @ 100 mls/hr Q10H IV 10/01/16 21:00 10/31/16 20:59 10/02/16 18:37 100 MLS/HR Hydrocortisone Sodium Succinate 50 mg/Syringe 1 ml @ 4 mls/min Q8H IV 10/01/16 22:30 10/31/16 22:29 10/02/16 15:24 4 MLS/MIN Vancomycin HCl/ Sodium Chloride (Vancomycin Inj/ Nss 500ml) 534 ml @ 200 mls/hr Q24H IV 10/02/16 12:00 10/08/16 19:59 10/02/16 12:27 200 MLS/HR Potassium Chloride (Klor-Con Tab) 40 meq 0930 ONCE PO 10/02/16 09:30 10/02/16 09:31 DC 10/02/16 09:52 40 MEQ Objective Vital Signs Date Time Temp Pulse Resp B/P Pulse Ox O2 Delivery O2 Flow Rate FiO2 10/02/16 18:49 96 18 96 Nasal Cannula 2.0 10/02/16 15:52 36.7 86 16 103/67 98 Nasal Cannula 2.0 10/02/16 15:12 36.8 70 20 98/57 96 Nasal Cannula 2.0 10/02/16 14:45 96 18 91 Nasal Cannula 2.0 10/02/16 12:00 Room Air 10/02/16 11:11 36.8 79 18 102/62 97 2.0 10/02/16 08:00 Room Air 10/02/16 07:30 36.5 67 20 105/75 10/02/16 06:52 73 18 87 Room Air 10/02/16 04:00 Nasal Cannula 2.0 10/02/16 03:47 36.5 88 19 94/62 99 Nasal Cannula 2.0 10/02/16 02:54 68 18 95 Nasal Cannula 2.0 10/02/16 00:38 36.5 60 20 109/65 98 Nasal Cannula 2.0 10/01/16 23:59 Nasal Cannula 2.0 10/01/16 21:36 36.7 72 22 92/55 95 Nasal Cannula 2.0 10/01/16 21:03 36.9 66 24 91/51 96 10/01/16 20:44 68 24 96/61 94 Nasal Cannula 2.0 10/01/16 20:01 88 16 81/54 99 2.0 Physical Exam General Appearance: no apparent distress Eyes: normal inspection Neck: supple Respiratory/Chest: lungs clear Cardiovascular: regular rate, rhythm Abdomen: normal bowel sounds Extremities: normal range of motion Laboratory Results Last 24 Hours Test 10/01/16 19:24 10/01/16 19:57 10/01/16 21:53 10/01/16 21:58 Bedside Lactic Acid Venous 0.87 mmol/L White Blood Count 7.25 K/uL Red Blood Count 4.15 M/uL Hemoglobin 12.4 g/dL Hematocrit 38.7 % Mean Corpuscular Volume 93.3 fL Mean Corpuscular Hemoglobin 29.9 pg Mean Corpuscular Hemoglobin Concent 32.0 g/dl Platelet Count 188 K/uL Mean Platelet Volume 9.9 fL Neutrophils (%) (Auto) 69.1 % Lymphocytes (%) (Auto) 17.0 % Monocytes (%) (Auto) 12.4 % Eosinophils (%) (Auto) 0.8 % Basophils (%) (Auto) 0.1 % Neutrophils # (Auto) 5.01 K/uL Lymphocytes # (Auto) 1.23 K/uL Monocytes # (Auto) 0.90 K/uL Eosinophils # (Auto) 0.06 K/uL Basophils # (Auto) 0.01 K/uL RDW Standard Deviation 58.2 fL RDW Coefficient of Variation 17.2 % Immature Granulocyte % (Auto) 0.6 % Immature Granulocyte # (Auto) 0.04 K/uL Nucleated RBC Absolute Count (auto) 0.05 K/uL Nucleated Red Blood Cells % 0.7 % Prothrombin Time 10.9 SECONDS Prothromb Time International Ratio 1.0 Sodium Level 142 mmol/L Potassium Level 2.5 mmol/L Chloride Level 98 mmol/L Carbon Dioxide Level 33 mmol/L Anion Gap 10.0 mmol/L Blood Urea Nitrogen 28 mg/dl Creatinine 1.80 mg/dl Est Creatinine Clear Calc Drug Dose 36.6 ml/min Estimated GFR () 38.6 Estimated GFR (Non- 33.3 BUN/Creatinine Ratio 15.4 Random Glucose 122 mg/dl Calcium Level 8.4 mg/dl Magnesium Level 2.4 mg/dl Total Bilirubin 0.7 mg/dl Direct Bilirubin 0.1 mg/dl Aspartate Amino Transf (AST/SGOT) 13 U/L Alanine Aminotransferase (ALT/SGPT) 21 U/L Alkaline Phosphatase 78 U/L Total Creatine Kinase 100 U/L Creatine Kinase MB 1.1 ng/ml Creatine Kinase MB Ratio 1.1 Troponin I 0.028 ng/ml Total Protein 6.2 gm/dl Albumin 2.9 gm/dl Urine Color YELLOW Urine Appearance CLOUDY Urine pH 7.5 Urine Specific [place] 1.019 Urine Protein TRACE Urine Glucose (UA) NEG Urine Ketones NEG Urine Occult Blood TRACE Urine Nitrite POS Urine Bilirubin NEG Urine Urobilinogen NEG Urine Leukocyte Esterase LARGE Urine WBC (Auto) >30 /hpf Urine RBC (Auto) 0-4 /hpf Urine Hyaline Casts (Auto) 0 /lpf Urine Epithelial Cells (Auto) 10-20 /lpf Urine Bacteria (Auto) 1+ Bedside Glucose 100 mg/dl Test 10/02/16 06:24 10/02/16 07:09 10/02/16 10:57 10/02/16 11:41 White Blood Count 5.13 K/uL Red Blood Count 3.98 M/uL Hemoglobin 11.6 g/dL Hematocrit 37.2 % Mean Corpuscular Volume 93.5 fL Mean Corpuscular Hemoglobin 29.1 pg Mean Corpuscular Hemoglobin Concent 31.2 g/dl Platelet Count 173 K/uL Mean Platelet Volume 10.3 fL Neutrophils (%) (Auto) 72.7 % Lymphocytes (%) (Auto) 15.2 % Monocytes (%) (Auto) 11.1 % Eosinophils (%) (Auto) 0.4 % Basophils (%) (Auto) 0.2 % Neutrophils # (Auto) 3.73 K/uL Lymphocytes # (Auto) 0.78 K/uL Monocytes # (Auto) 0.57 K/uL Eosinophils # (Auto) 0.02 K/uL Basophils # (Auto) 0.01 K/uL RDW Standard Deviation 59.6 fL RDW Coefficient of Variation 17.3 % Immature Granulocyte % (Auto) 0.4 % Immature Granulocyte # (Auto) 0.02 K/uL Sodium Level 142 mmol/L 139 mmol/L Potassium Level 2.8 mmol/L 3.6 mmol/L Chloride Level 100 mmol/L 99 mmol/L Carbon Dioxide Level 32 mmol/L 29 mmol/L Anion Gap 10.0 mmol/L 11.0 mmol/L Blood Urea Nitrogen 24 mg/dl 26 mg/dl Creatinine 1.60 mg/dl 1.90 mg/dl Est Creatinine Clear Calc Drug Dose 40.7 ml/min 34.3 ml/min Estimated GFR () 44.6 36.2 Estimated GFR (Non- 38.4 31.2 BUN/Creatinine Ratio 15.2 13.7 Random Glucose 172 mg/dl 256 mg/dl Calcium Level 8.6 mg/dl 8.6 mg/dl Magnesium Level 2.5 mg/dl Bedside Glucose 158 mg/dl 253 mg/dl Test 10/02/16 16:26 Bedside Glucose 189 mg/dl Assessment and Plan (1) Sepsis Assessment & Plan: improving (2) Pneumonia Assessment & Plan: Health care associated Pneumonia input of pulmonary appreciated (3) CHF (congestive heart failure) (4) chronic kidney disease Assessment & Plan: continue iv hydration and replace potassium (5) Dehydration
[2016-10-02] MEDS: TAMSULOSIN HCL 0.4 MG CAP PO SCH (21:12)
[2016-10-02] MEDS: METHENAMINE HIPPURATE 1 GM TAB PO SCH (21:12)
[2016-10-02] MEDS: FAMOTIDINE 20 MG TAB PO SCH (21:12)
[2016-10-02] MEDS: ATORVASTATIN 20 MG TAB PO SCH (21:12)
[2016-10-02] MEDS: INSULIN GLARGINE SOLOSTAR 100 UNITS/ML 3 ML PEN SC SCH (21:16)
[2016-10-02] MEDS ORDERED: LEVOFLOXACIN 250MG / D5W IV SCH (22:00)
[2016-10-03] VITALS (12 sets, daily range): BP systolic 100–130; BP diastolic 57–75; PULSE 62–90; TEMP 36.3–36.8; O2SAT 91–100
[2016-10-03] MEDS: IPRATROPIUM BROMIDE NEB SOLN 0.02% 2.5 ML VIAL INH SCH ×4 (01:57→20:18)
[2016-10-03] MEDS: LEVALBUTEROL 1.25MG/0.5ML NEB INH SCH ×4 (01:57→20:18)
[2016-10-03] MEDS: SODIUM CHLORIDE 0.9% 1000ML 1,000 ML IV SCH ×2 (03:58→13:48)
[2016-10-03] MEDS: HYDROCORTISONE IV 50 MG in SYRINGE 0 ML IV SCH ×3 (05:14→22:14)
[2016-10-03 06:04] LABS: COMPLETE YES; HEMATOCRIT 32.6 % (42-52); IG% 0.5 %; LYMPH % 14.5 %; LYMPH ABS # 0.56 K/uL (1.2-3.4); MEAN CELL VOLUME 93.9 fL (80-100); MEAN CORPUSCULAR HEMOGLOBIN 29.1 pg (25-34); MEAN PLATELET VOLUME 9.6 fL (7.4-10.4); PLATELET COUNT 153 K/uL (130-400); RED BLOOD COUNT 3.47 M/uL (4.7-6.1); WHITE BLOOD COUNT 3.85 K/uL (4.8-10.8)
[2016-10-03 06:33] LABS: BUN/CREATININE RATIO 13.2 (10-20); CALCIUM 8.2 mg/dl (8.5-10.1); CREATININE 1.7 mg/dl (0.60-1.40); MAGNESIUM 2.5 mg/dl (1.8-2.4); POTASSIUM 3.4 mmol/L (3.5-5.1)
[2016-10-03] MEDS: BUDESONIDE 0.5 MG/2 ML VIAL (PULMICORT) INH SCH ×2 (07:50→20:18)
[2016-10-03] MEDS: GABAPENTIN 600 MG TAB PO SCH ×2 (07:52→22:14)
[2016-10-03] MEDS: PIPERACILL/TAZOBAC IV 3.375 GM in DEXTROSE 5% 100ML 100 ML IV SCH ×2 (07:52→17:47)
[2016-10-03] MEDS: FLUTICASONE PROPIONATE NA SPR 16 GM BTL SCH (07:52)
[2016-10-03] MEDS: MAGNESIUM OXIDE 400 MG TAB PO SCH ×2 (07:52→21:27)
[2016-10-03] MEDS: PANTOprazole SOD 40 MG TAB PO SCH (07:52)
[2016-10-03] MEDS: FLUDROCORTISONE ACETATE 0.1 MG TAB PO SCH (07:53)
[2016-10-03] MEDS: ARTIFICIAL TEARS OP SOLN OPB SCH ×4 (07:54→21:22)
[2016-10-03] MEDS: DOCUSATE SODIUM 100 MG CAP PO SCH ×2 (07:54→21:24)
[2016-10-03] MEDS: GUAIFENESIN 600 MG TABCR PO SCH ×2 (07:54→21:27)
[2016-10-03] MEDS: CLOPIDOGREL BISULFATE 75 MG TAB PO SCH (07:54)
[2016-10-03] MEDS: CALCIUM POLYCARBOPHIL 1 TAB PO SCH (07:54)
[2016-10-03] MEDS: POTASSIUM CHLORIDE 20 MEQ TABCR PO SCH ×2 (07:54→21:27)
[2016-10-03] MEDS: LIDODERM (LIDOCAINE) PATCH 5% TD SCH (07:55)
[2016-10-03] MEDS: INSULIN ASPART 100 UNITS/ML 3 ML PEN SC SCH ×4 (07:56→21:22)
[2016-10-03] MEDS: BISACODYL 5 MG TABEC PO SCH ×2 (07:58→21:35)
[2016-10-03] MEDS: ASPIRIN 81 MG CHEW PO SCH (07:58)
[2016-10-03] MEDS: OXYCODONE HCL 15 MG TABCR (OXYCONTIN) PO SCH ×2 (07:59→21:33)
[2016-10-03] MEDS: AVODART~ORDER AWAITING ACTION SCH ×3 (08:00→16:00)
[2016-10-03] MEDS: VANCOMYCIN INJ 1,700 MG in SODIUM CHLORIDE 0.9% 500ML 500 ML IV SCH (11:36)
[2016-10-03] MEDS ORDERED: LEVOFLOXACIN 750MG / D5W IV SCH (16:00)
[2016-10-03] MEDS: INSULIN GLARGINE SOLOSTAR 100 UNITS/ML 3 ML PEN SC SCH (21:22)
[2016-10-03] MEDS: TAMSULOSIN HCL 0.4 MG CAP PO SCH (21:26)
[2016-10-03] MEDS: ATORVASTATIN 20 MG TAB PO SCH (21:27)
[2016-10-03] MEDS: METHENAMINE HIPPURATE 1 GM TAB PO SCH (21:29)
[2016-10-03] MEDS: FAMOTIDINE 20 MG TAB PO SCH (21:29)
[2016-10-04] VITALS (7 sets, daily range): BP systolic 96–109; BP diastolic 59–62; PULSE 68–77; TEMP 36.4–36.6; O2SAT 95–98
[2016-10-04] MEDS: PIPERACILL/TAZOBAC IV 3.375 GM in DEXTROSE 5% 100ML 100 ML IV SCH ×2 (01:16→09:03)
[2016-10-04] MEDS: LEVALBUTEROL 1.25MG/0.5ML NEB INH SCH ×4 (01:40→19:44)
[2016-10-04] MEDS: IPRATROPIUM BROMIDE NEB SOLN 0.02% 2.5 ML VIAL INH SCH ×4 (01:40→19:44)
[2016-10-04] MEDS: HYDROCORTISONE IV 50 MG in SYRINGE 0 ML IV SCH ×3 (06:17→22:06)
[2016-10-04] MEDS: BUDESONIDE 0.5 MG/2 ML VIAL (PULMICORT) INH SCH ×2 (07:24→19:44)
--- NOTE | 2016-10-04 07:54 | PROGRESS NOTE ---
DATE: 10/04/2016 The patient is very comfortable this morning and looks good. He has been on oxygen and is receiving albuterol treatment now. His respiratory rate is 20, his blood pressure is a bit low at 96/62 this morning. He is asymptomatic. He has not been out of bed much yesterday, is looking forward to walking with help with a walker. That is generally what he does at home. His oxygen saturation has improved to 98% on 2 liters. VITAL SIGNS: I\T\O, 3376 in, 175 out. Weight 102.8 kilograms by the built-in scale. Generally, he is about 97 kilograms. So that may be an error. MEDICATIONS: Noted. PHYSICAL EXAMINATION: HEENT: Unremarkable. NECK: There is no neck vein distention or HJR. HEART: Regular rate and rhythm. LUNGS: Clear. There are no crackles noted now, there is no fremitus. ABDOMEN: Soft, nontender. EXTREMITIES: He has no cyanosis, clubbing or edema. DATA: White count is pending. Hemoglobin was 10.1 yesterday. Sugars have been in the 137-184 range. BUN 23, creatinine 1.7. Influenza A and B are unremarkable. Urine did grow out pseudomonas. MRSA DNA surveillance screen is negative. Chest x-ray on 10/01/2016 did reveal left upper lobe perihilar inflammatory process. IMPRESSION: 1. Left upper lobe pneumonia. This is a healthcare facility associated pneumonia and pseudomonas needs to be considered. Acinetobacter is a possibility as well. He does have pseudomonas in his urine with a urinary tract infection as well. 2. Sepsis. 3. Urinary tract infection. 4. Chronic obstructive pulmonary disease with exacerbation. RECOMMENDATIONS: 1. At this point, vancomycin could be discontinued. I think the Levaquin at an adjusted dose would be appropriate for the left mid lung field infiltrate. 2. Discontinue the Mucinex. 3. The patient is on hydrocortisone. I think he could placed on low dose prednisone at 20 mg daily and perhaps that could be tapered down fairly quickly as well. Overall, he looks considerably improved today.
[2016-10-04] MEDS: AVODART~ORDER AWAITING ACTION SCH ×3 (08:00→16:00)
[2016-10-04 08:15] LABS: COMPLETE YES; EOS % 1.2 %; HEMATOCRIT 33.2 % (42-52); IG% 0.7 %; LYMPH % 16.9 %; MEAN CELL VOLUME 94.3 fL (80-100); MEAN CORPUSCULAR HEMOGLOBIN 29.3 pg (25-34); MEAN PLATELET VOLUME 10.2 fL (7.4-10.4); MONO % 10.4 %; NEUT % 70.8 %; PLATELET COUNT 152 K/uL (130-400); RED BLOOD COUNT 3.52 M/uL (4.7-6.1); WHITE BLOOD COUNT 4.14 K/uL (4.8-10.8)
[2016-10-04 08:40] LABS: BUN/CREATININE RATIO 11.2 (10-20); CALCIUM 8.6 mg/dl (8.5-10.1); CREATININE 1.4 mg/dl (0.60-1.40); MAGNESIUM 2.5 mg/dl (1.8-2.4); POTASSIUM 3.2 mmol/L (3.5-5.1)
[2016-10-04] MEDS: BISACODYL 5 MG TABEC PO SCH ×2 (09:00→20:49)
[2016-10-04] MEDS: ARTIFICIAL TEARS OP SOLN OPB SCH ×4 (09:03→20:48)
[2016-10-04] MEDS: DOCUSATE SODIUM 100 MG CAP PO SCH ×2 (09:03→20:49)
[2016-10-04] MEDS: ASPIRIN 81 MG CHEW PO SCH (09:03)
[2016-10-04] MEDS: CALCIUM POLYCARBOPHIL 1 TAB PO SCH (09:04)
[2016-10-04] MEDS: FLUDROCORTISONE ACETATE 0.1 MG TAB PO SCH (09:04)
[2016-10-04] MEDS: POTASSIUM CHLORIDE 20 MEQ TABCR PO SCH ×2 (09:04→20:50)
[2016-10-04] MEDS: TORSEMIDE 20 MG TAB PO SCH (09:04)
[2016-10-04] MEDS: MAGNESIUM OXIDE 400 MG TAB PO SCH ×2 (09:05→20:50)
[2016-10-04] MEDS: PANTOprazole SOD 40 MG TAB PO SCH (09:05)
[2016-10-04] MEDS: GABAPENTIN 600 MG TAB PO SCH ×2 (09:05→20:51)
[2016-10-04] MEDS: CLOPIDOGREL BISULFATE 75 MG TAB PO SCH (09:05)
[2016-10-04] MEDS: GUAIFENESIN 600 MG TABCR PO SCH ×2 (09:05→20:51)
[2016-10-04] MEDS: OXYCODONE HCL 15 MG TABCR (OXYCONTIN) PO SCH ×2 (09:05→20:58)
[2016-10-04] MEDS: FLUTICASONE PROPIONATE NA SPR 16 GM BTL SCH (09:06)
[2016-10-04] MEDS: INSULIN ASPART 100 UNITS/ML 3 ML PEN SC SCH ×4 (09:15→20:59)
[2016-10-04] MEDS: LIDODERM (LIDOCAINE) PATCH 5% TD SCH (09:15)
[2016-10-04] MEDS ORDERED: VANCOMYCIN TROUGH SCH (11:30)
--- NOTE | 2016-10-04 11:54 | Urology Consultation ---
History General Date of Service: Oct 04, 2016. Chief Complaint: urinary retention Primary Care Physician: Wilver Franco M.D. Pt seen a urologist before?: Yes (Dr. Miller) If yes, why?: incomplete bladder emptying History of Present Illness 86 yo male admitted to [facility] with respiratory failure. consulted for urinary retention. Pt reports he was straight cathed for 700ml this morning. He has seen Dr. Miller in the past for this issue. Last seen on 09-12-16. Currently Avodart and tamsulosin, and was to do CIC TID. He reports his SNF stopped doing CIC last week as they were only getting residuals of 25ml. Since that time he reports increasing difficulty voiding. He is also noted to have a UC&S growing pseudomonas while inpatient. He has been started on Levaquin, which is sensitive. He was previously started on methenamine at his last visit with Dr. Miller as well. HPI - UTI Prior UTI History: number of UTI's History of Surgery: positive Laboratory Last 24 Hours Test 10/03/16 11:40 10/03/16 16:01 10/03/16 20:25 10/04/16 07:11 Bedside Glucose 187 mg/dl 137 mg/dl 171 mg/dl 184 mg/dl Test 10/04/16 07:52 10/04/16 11:27 10/04/16 11:30 White Blood Count 4.14 K/uL Red Blood Count 3.52 M/uL Hemoglobin 10.3 g/dL Hematocrit 33.2 % Mean Corpuscular Volume 94.3 fL Mean Corpuscular Hemoglobin 29.3 pg Mean Corpuscular Hemoglobin Concent 31.0 g/dl Platelet Count 152 K/uL Mean Platelet Volume 10.2 fL Neutrophils (%) (Auto) 70.8 % Lymphocytes (%) (Auto) 16.9 % Monocytes (%) (Auto) 10.4 % Eosinophils (%) (Auto) 1.2 % Basophils (%) (Auto) 0.0 % Neutrophils # (Auto) 2.93 K/uL Lymphocytes # (Auto) 0.70 K/uL Monocytes # (Auto) 0.43 K/uL Eosinophils # (Auto) 0.05 K/uL Basophils # (Auto) 0.00 K/uL RDW Standard Deviation 58.6 fL RDW Coefficient of Variation 17.2 % Immature Granulocyte % (Auto) 0.7 % Immature Granulocyte # (Auto) 0.03 K/uL Sodium Level 143 mmol/L Potassium Level 3.2 mmol/L Chloride Level 106 mmol/L Carbon Dioxide Level 28 mmol/L Anion Gap 9.0 mmol/L Blood Urea Nitrogen 16 mg/dl Creatinine 1.40 mg/dl Est Creatinine Clear Calc Drug Dose 47.7 ml/min Estimated GFR () 52.4 Estimated GFR (Non- 45.2 BUN/Creatinine Ratio 11.2 Random Glucose 169 mg/dl Calcium Level 8.6 mg/dl Magnesium Level 2.5 mg/dl Bedside Glucose 233 mg/dl Problem List Medical Problems: (1) Acute on chronic renal failure Status: Acute (2) Confusion Status: Acute (3) Fever Status: Acute (4) Hypoglycemia Status: Acute (5) Hypoxia Status: Acute (6) Influenza A Status: Acute (7) PNA (pneumonia) Status: Acute (8) Reactive airway disease Status: Acute (9) Sepsis Status: Acute Past History BPH, COPD, coronary artery disease, CVA/TIA/stroke, diverticulosis, high cholesterol, hypertension, renal disease, urinary tract infection, other (anemia ) Past Surgical History: cardiac catheterization Family History FH: heart disease Hypertension Social History Hx Tobacco Use In Past Year?: No (QUIT ABOUT 3 YRS AGO) Smoking: quit greater than 1 year Alcohol: no current use Marital status: Housing status: lives with family, fdc Occupation status: retired Immunizations History of Influenza Vaccine: Yes Influenza Vaccine Date: Jun 08, 2013 History of Tetanus Vaccine?: Unknown History of Pneumococcal: Yes History of Hepatitis B Vaccine: Unknown History of MDRO No Allergies Coded Allergies: No Known Allergies (Unverified , 10/01/16) Medications Home Medications: Home Meds and Scripts Medications Dose Route/Sig Max Daily Dose Days Date Category Dose Instructions Methenamine Hippurate 1 Gm Tab 1 Gm PO HS 10/01/16 Reported Prilosec (Omeprazole) 20 Mg Capcr 20 Mg PO DAILY 10/01/16 Reported Levalbuterol Tartrate Hfa (Levalbuterol Tartrate) 45 Mcg/Act Aer 0.63 TID 08/17/16 Reported Mucinex D (Pseudoephedrine-Guaifenesin) 1 Tab Tab 1 Tab PO BID 10 08/17/16 Reported Therems M (Multiple Vitamins W/ Minerals) 1 Tab Tab 08/17/16 Reported Nitrostat (Nitroglycerin) 0.4 Mg Tab 1 Tab SL UD 08/17/16 Reported Oxycontin (Oxycodone HCl) 15 Mg Tabcr 15 Mg PO Q12 07/21/16 Rx Lidocaine 1 Patch Tdsy 1 Patch TD QAM 30 07/21/16 Rx to back pain Lantus Solostar (Insulin Glargine) 100 Unit/Ml Inj 45 Unit SC QPM 30 07/21/16 Rx Fluticasone Propionate 50 Mcg/Act Spr 2 Sprays NA DAILY 30 07/21/16 Rx Atenolol 25 Mg Tab 12.5 Mg PO DAILY 30 07/21/16 Rx Advair Diskus 250-50 Mcg/Dose (Fluticasone Prop/Salmeterol) 14 Puff/1 Inhaler Aerp 1 Puff INH BID 07/21/16 Rx Tamsulosin HCl 0.4 Mg Cap 0.4 Mg PO HS 30 07/21/16 Rx Fiber Laxative (Calcium Polycarbophil) 625 Mg Tab 1 Tab PO DAILY 07/14/16 Reported Mag-Ox (Magnesium Oxide) 400 Mg Tab 400 Mg PO BID 07/14/16 Reported Gabapentin 600 Mg Tab 600 Mg PO BID 07/14/16 Reported Demadex (Torsemide) 20 Mg Tab 50 Mg PO 3XWK 07/14/16 Reported MON, WED, FRI ALONG WITH 100MG TO = 150MG Systane Ultra (Polyethylene Glycol-Propylene) 1 Idania Idania 1 Drops OPB BID 07/14/16 Reported Tylenol (Acetaminophen) 500 Mg Tab 1,000 Mg PO AMPM PRN 07/14/16 Reported Demadex (Torsemide) 100 Mg Tab 100 Mg PO DAILY 07/14/16 Reported Lipitor (Atorvastatin Calcium) 20 Mg Tab 20 Mg PO HS 05/27/15 Reported Klor-Con M20 (Potassium Chloride) 20 Meq Tabcr 2 Tab PO BID 05/27/15 Reported Aspirin Chewable (Aspirin) 81 Mg Chew 81 Mg PO DAILY 11/08/14 Reported Bisacodyl 5 Mg Tab 5 Mg PO BID 10/09/14 Reported Plavix (Clopidogrel Bisulfate) 75 Mg Tab 75 Mg PO DAILY 07/15/14 Reported Cortef (Hydrocortisone) 20 Mg Tab 40 Mg PO BID 04/21/14 Reported Colace (Docusate Sodium) 100 Mg Cap 100 Mg PO BID 11/16/13 Reported Florinef (Fludrocortisone Acetate) 0.1 Mg Tab 0.1 Mg PO DAILY 09/09/13 Reported Pepcid (Famotidine) 20 Mg Tab 20 Mg PO HS 09/09/13 Reported Avodart (Dutasteride) 0.5 Mg Cap 0.5 Mg PO DAILY 09/09/13 Reported Inpatient Medications: Current Inpatient Medications Medications (Trade) Dose Ordered Sig/Cole Route Start Time Stop Time Status Last Admin Dose Admin Acetaminophen (Tylenol Tab) 650 mg Q4H PRN PO 10/01/16 20:00 10/31/16 19:59 Zolpidem Tartrate (Ambien Tab) 5 mg HSZ PRN PO 10/01/16 20:00 10/31/16 19:59 Nitroglycerin (Nitrostat Tab) 0.4 mg UD PRN SL 10/01/16 20:00 10/31/16 19:59 Guaifenesin (Mucinex Contr Rel Tab) 600 mg Q12 PO 10/01/16 21:00 10/31/16 20:59 10/04/16 09:05 600 MG Ondansetron HCl 4 mg 4 mg Q6H PRN IV 10/01/16 20:00 10/31/16 19:59 Piperacillin Sod/ Tazobactam Sod/ Dextrose (Zosyn Iv/D5 100ml) 115 ml @ 28 mls/hr Q8H IV 10/02/16 00:00 10/09/16 00:00 10/04/16 09:03 28 MLS/HR Aspirin (Aspirin Chew) 81 mg DAILY PO 10/02/16 09:00 11/01/16 08:59 10/04/16 09:03 81 MG Atenolol (Tenormin Tab) 12.5 mg DAILY PO 10/02/16 09:00 11/01/16 08:59 10/03/16 07:53 12.5 MG Atorvastatin Calcium (Lipitor Tab) 20 mg HS PO 10/01/16 21:00 10/31/16 20:59 10/03/16 21:27 20 MG Bisacodyl (Dulcolax Tab) 5 mg BID PO 10/01/16 21:00 10/31/16 20:59 10/03/16 21:35 5 MG Calcium Polycarbophil (Fibercon Tab) 1 tab DAILY PO 10/02/16 09:00 11/01/16 08:59 10/04/16 09:04 1 TAB Clopidogrel Bisulfate (plAVix TAB) 75 mg DAILY PO 10/02/16 09:00 11/01/16 08:59 10/04/16 09:05 75 MG Docusate Sodium (coLACE CAP) 100 mg BID PO 10/01/16 21:00 10/31/16 20:59 10/04/16 09:03 100 MG Famotidine (Pepcid Tab) 20 mg HS PO 10/01/16 21:00 10/31/16 20:59 10/03/16 21:29 20 MG Fludrocortisone Acetate (Florinef Tab) 0.1 mg DAILY PO 10/02/16 09:00 11/01/16 08:59 10/04/16 09:04 0.1 MG Fluticasone Propionate (Flonase Nasal [place]) 2 sprays DAILY NA 10/02/16 09:00 11/01/16 08:59 10/04/16 09:06 2 SPRAYS Gabapentin (Neurontin Tab) 600 mg BID PO 10/01/16 21:00 10/31/16 20:59 10/04/16 09:05 600 MG Lidocaine (Lidoderm Patch 5%) 1 patch QAM TD 10/02/16 09:00 11/01/16 08:59 10/04/16 09:15 1 PATCH Magnesium Oxide (Mag-Ox Tab) 400 mg BID PO 10/01/16 21:00 10/31/16 20:59 10/04/16 09:05 400 MG Methenamine Hippurate (Urex Tab) 1 gm HS PO 10/01/16 21:00 10/11/16 20:59 10/03/16 21:29 1 GM Oxycodone HCl (Oxycontin Tab) 15 mg Q12 PO 10/01/16 21:00 10/15/16 20:59 10/04/16 09:05 15 MG Potassium Chloride (Klor-Con Tab) 40 meq BID PO 10/01/16 21:00 10/31/16 20:59 10/04/16 09:04 40 MEQ Miscellaneous Information (Order Awaiting Action) 1 ea QS N/A 10/02/16 00:00 11/01/16 00:00 Artificial Tears (Artificial Tears) 1 drops BID OPB 10/01/16 21:00 10/31/16 20:59 10/04/16 09:03 1 DROPS Pantoprazole Sodium (Protonix Tab) 40 mg QAM PO 10/02/16 09:00 11/01/16 08:59 10/04/16 09:05 40 MG Miscellaneous (Remove Lidoderm Patch) 1 ea DAILY@21 N/A 10/01/16 21:00 10/31/16 20:59 10/03/16 21:23 1 EA Budesonide (Pulmicort Respules 0.5MG/ 2ML Neb Soln) 0.5 mg BIDR INH 10/02/16 08:00 11/01/16 07:59 10/04/16 07:24 0.5 MG Insulin Aspart (novoLOG ASPART) SLIDING SCALE If C... ACHS SC 10/01/16 21:00 10/31/16 20:59 10/04/16 09:15 10 UNITS Glucose (Glucose 40% Gel) UD PRN PO 10/01/16 20:15 10/31/16 20:14 Glucose (Glucose Chew Tab) 1 tabs UD PRN PO 10/01/16 20:15 10/31/16 20:14 Dextrose (Dextrose 50% 50ML Syringe) 50 ml UD PRN IV 10/01/16 20:15 10/31/16 20:14 Glucagon (Glucagon Inj) 1 mg UD PRN SQ 10/01/16 20:15 10/31/16 20:14 Ipratropium Newell (Atrovent 0.02% 0.5MG/2.5ML Neb) 0.5 mg Q6R INH 10/01/16 21:00 10/31/16 20:59 10/04/16 07:24 0.5 MG Levalbuterol (Xopenex 1.25MG/ 0.5ML Neb) 1.25 mg Q6R INH 10/01/16 21:00 10/31/16 20:59 10/04/16 07:24 1.25 MG Ipratropium [place]ell (Atrovent 0.02% 0.5MG/2.5ML Neb) 0.5 mg Q2H PRN INH 10/01/16 20:15 4/19/17 20:14 Levalbuterol (Xopenex 1.25MG/ 0.5ML Neb) 1.25 mg Q2H PRN INH 10/01/16 20:15 10/31/16 20:14 Tamsulosin HCl (Flomax Cap) 0.8 mg HS PO 10/01/16 21:00 10/31/16 20:59 10/03/16 21:26 0.8 MG Piperacillin Sod/ Tazobactam Sod (Consult) 1 ea UD PRN N/A 10/01/16 20:30 10/31/16 20:29 Levofloxacin (Consult) 1 ea UD PRN N/A 10/01/16 20:45 10/31/16 20:44 Insulin Glargine 15 unit 15 unit QPM SC 10/01/16 21:00 10/31/16 20:59 10/03/16 21:22 15 UNIT Hydrocortisone Sodium Succinate/ Syringe (Solu-Cortef IV/ Syringe) 1 ml @ 4 mls/min Q8H IV 10/01/16 22:30 10/31/16 22:29 10/04/16 06:17 4 MLS/MIN Torsemide 60 mg 60 mg QAM PO 10/04/16 09:00 11/03/16 08:59 10/04/16 09:04 60 MG Levofloxacin/Prmx (Levaquin / D5W/ Premixed D5W) 150 ml @ 100 mls/hr Q48H IV 10/05/16 14:00 10/07/16 23:59 Review of Systems Review of Systems Constitutional: No chills, No fever Eyes: No double vision Neurological: No dizzy Endocrine: No excessive thirst Gastrointestinal: No abdominal pain, No nausea, No vomiting Cardiovascular: No chest pain Respiratory: No shortness of breath Skin: No rash Musculoskeletal: + arthritis Male : No blood in urine, No painful urination Physical Exam Vital Signs: Vital Signs Past 12 Hours Date Time Temp Pulse Resp B/P Pulse Ox O2 Delivery O2 Flow Rate FiO2 10/04/16 11:33 Nasal Cannula 2.0 10/04/16 08:13 70 18 95 Nasal Cannula 2.0 10/04/16 07:05 36.4 77 20 96/62 98 2.0 3/23/17 01:41 68 18 96 Nasal Cannula 2.0 10/04/16 00:05 Nasal Cannula 2.0 10/03/16 23:57 36.6 62 18 108/65 96 Room Air Physical Exam: General Appearance: no apparent distress, + obese Eyes: bilateral eyes normal inspection ENT: hearing grossly normal Neck: no JVD Respiratory/Chest: no respiratory distress, no accessory muscle use Cardiovascular: no JVD Extremities: normal inspection 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: alert, normal mood/affect, oriented x 3 Skin: normal color Assessment & Plan Assessment & Plan A/P: Urinary retention, UTI Will place gomez catheter for UR. Recommend treating UTI with 10-14 days of Levaquin. Would d/c gomez catheter and resume CIC TID 3 days prior to discontinuation of Levaquin. Would resume methenamine once finished with Levaquin. Continue tamsulosin and Avodart. Will start finasteride in place of Avodart while inpatient. Thanks for the consult. Will plan for outpatient f/u with Dr. Miller in 2 weeks. Agree with above consult . Pt known to me
--- NOTE | 2016-10-04 18:30 | Hospitalist Progress Note ---
Hospitalist Progress Note Date of Service Oct 03, 2016. Subjective Pt evaluation today including: conversation w/ patient patient feels better decreased shortness of breath Objective Vital Signs Date Time Temp Pulse Resp B/P Pulse Ox O2 Delivery O2 Flow Rate FiO2 10/04/16 15:49 36.6 74 18 109/59 96 Room Air 10/04/16 14:24 69 14 95 Nasal Cannula 2.0 10/04/16 11:33 Nasal Cannula 2.0 10/04/16 08:13 70 18 95 Nasal Cannula 2.0 10/04/16 07:05 36.4 77 20 96/62 98 2.0 10/04/16 01:41 68 18 96 Nasal Cannula 2.0 10/04/16 00:05 Nasal Cannula 2.0 10/03/16 23:57 36.6 62 18 108/65 96 Room Air 10/03/16 20:18 90 18 91 Nasal Cannula 2.0 Physical Exam General Appearance: no apparent distress Respiratory/Chest: lungs clear Cardiovascular: regular rate, rhythm Abdomen: non tender, soft 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: no motor/sensory deficits Laboratory Results Last 24 Hours Test 10/03/16 20:25 10/04/16 07:11 10/04/16 07:52 10/04/16 11:27 Bedside Glucose 171 mg/dl 184 mg/dl 233 mg/dl White Blood Count 4.14 K/uL Red Blood Count 3.52 M/uL Hemoglobin 10.3 g/dL Hematocrit 33.2 % Mean Corpuscular Volume 94.3 fL Mean Corpuscular Hemoglobin 29.3 pg Mean Corpuscular Hemoglobin Concent 31.0 g/dl Platelet Count 152 K/uL Mean Platelet Volume 10.2 fL Neutrophils (%) (Auto) 70.8 % Lymphocytes (%) (Auto) 16.9 % Monocytes (%) (Auto) 10.4 % Eosinophils (%) (Auto) 1.2 % Basophils (%) (Auto) 0.0 % Neutrophils # (Auto) 2.93 K/uL Lymphocytes # (Auto) 0.70 K/uL Monocytes # (Auto) 0.43 K/uL Eosinophils # (Auto) 0.05 K/uL Basophils # (Auto) 0.00 K/uL RDW Standard Deviation 58.6 fL RDW Coefficient of Variation 17.2 % Immature Granulocyte % (Auto) 0.7 % Immature Granulocyte # (Auto) 0.03 K/uL Sodium Level 143 mmol/L Potassium Level 3.2 mmol/L Chloride Level 106 mmol/L Carbon Dioxide Level 28 mmol/L Anion Gap 9.0 mmol/L Blood Urea Nitrogen 16 mg/dl Creatinine 1.40 mg/dl Est Creatinine Clear Calc Drug Dose 47.7 ml/min Estimated GFR () 52.4 Estimated GFR (Non- 45.2 BUN/Creatinine Ratio 11.2 Random Glucose 169 mg/dl Calcium Level 8.6 mg/dl Magnesium Level 2.5 mg/dl Test 10/04/16 12:14 10/04/16 16:13 Vancomycin Level Trough 13.0 mcg/ml Bedside Glucose 157 mg/dl Assessment and Plan (1) Sepsis Assessment & Plan: Resolved continue antibiotic tx (2) Pneumonia Assessment & Plan: Health care associated Pneumonia input of pulmonary appreciated (3) CHF (congestive heart failure) (4) chronic kidney disease (5) Dehydration Assessment & Plan: resolved
--- NOTE | 2016-10-04 18:33 | Hospitalist Progress Note ---
Hospitalist Progress Note Date of Service Oct 04, 2016. Subjective Pt evaluation today including: conversation w/ patient shortness of breath improving Medications Medications (Trade) Dose Ordered Sig/Cole Route Start Time Stop Time Status Last Admin Dose Admin Torsemide (Demadex Tab) 60 mg QAM PO 10/04/16 09:00 11/03/16 08:59 10/04/16 09:04 60 MG Objective Vital Signs Date Time Temp Pulse Resp B/P Pulse Ox O2 Delivery O2 Flow Rate FiO2 10/04/16 15:49 36.6 74 18 109/59 96 Room Air 10/04/16 14:24 69 14 95 Nasal Cannula 2.0 10/04/16 11:33 Nasal Cannula 2.0 10/04/16 08:13 70 18 95 Nasal Cannula 2.0 10/04/16 07:05 36.4 77 20 96/62 98 2.0 10/04/16 01:41 68 18 96 Nasal Cannula 2.0 10/04/16 00:05 Nasal Cannula 2.0 10/03/16 23:57 36.6 62 18 108/65 96 Room Air 10/03/16 20:18 90 18 91 Nasal Cannula 2.0 Physical Exam General Appearance: no apparent distress ENT: hearing grossly normal Respiratory/Chest: lungs clear Cardiovascular: regular rate, rhythm Abdomen: non tender Extremities: normal range of motion 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: normal mood/affect Laboratory Results Last 24 Hours Test 10/03/16 20:25 10/04/16 07:11 10/04/16 07:52 10/04/16 11:27 Bedside Glucose 171 mg/dl 184 mg/dl 233 mg/dl White Blood Count 4.14 K/uL Red Blood Count 3.52 M/uL Hemoglobin 10.3 g/dL Hematocrit 33.2 % Mean Corpuscular Volume 94.3 fL Mean Corpuscular Hemoglobin 29.3 pg Mean Corpuscular Hemoglobin Concent 31.0 g/dl Platelet Count 152 K/uL Mean Platelet Volume 10.2 fL Neutrophils (%) (Auto) 70.8 % Lymphocytes (%) (Auto) 16.9 % Monocytes (%) (Auto) 10.4 % Eosinophils (%) (Auto) 1.2 % Basophils (%) (Auto) 0.0 % Neutrophils # (Auto) 2.93 K/uL Lymphocytes # (Auto) 0.70 K/uL Monocytes # (Auto) 0.43 K/uL Eosinophils # (Auto) 0.05 K/uL Basophils # (Auto) 0.00 K/uL RDW Standard Deviation 58.6 fL RDW Coefficient of Variation 17.2 % Immature Granulocyte % (Auto) 0.7 % Immature Granulocyte # (Auto) 0.03 K/uL Sodium Level 143 mmol/L Potassium Level 3.2 mmol/L Chloride Level 106 mmol/L Carbon Dioxide Level 28 mmol/L Anion Gap 9.0 mmol/L Blood Urea Nitrogen 16 mg/dl Creatinine 1.40 mg/dl Est Creatinine Clear Calc Drug Dose 47.7 ml/min Estimated GFR () 52.4 Estimated GFR (Non- 45.2 BUN/Creatinine Ratio 11.2 Random Glucose 169 mg/dl Calcium Level 8.6 mg/dl Magnesium Level 2.5 mg/dl Test 10/04/16 12:14 10/04/16 16:13 Vancomycin Level Trough 13.0 mcg/ml Bedside Glucose 157 mg/dl Assessment and Plan (1) Sepsis Assessment & Plan: Resolved (2) Pneumonia Assessment & Plan: will discontinue Zosyn and leave levoquin, if pat tolerates can discharge on 10/05 (3) CHF (congestive heart failure) (4) chronic kidney disease (5) Dehydration Assessment & Plan: resolved
[2016-10-04] MEDS: TAMSULOSIN HCL 0.4 MG CAP PO SCH (20:49)
[2016-10-04] MEDS: ATORVASTATIN 20 MG TAB PO SCH (20:50)
[2016-10-04] MEDS: FAMOTIDINE 20 MG TAB PO SCH (20:51)
[2016-10-04] MEDS: INSULIN GLARGINE SOLOSTAR 100 UNITS/ML 3 ML PEN SC SCH (21:00)
[2016-10-04] MEDS: METHENAMINE HIPPURATE 1 GM TAB PO SCH (22:06)
[2016-10-05] VITALS (8 sets, daily range): BP systolic 130; BP diastolic 62; PULSE 57–87; TEMP 36.3–36.4; O2SAT 94–96
[2016-10-05] MEDS: IPRATROPIUM BROMIDE NEB SOLN 0.02% 2.5 ML VIAL INH SCH ×3 (01:41→14:17)
[2016-10-05] MEDS: LEVALBUTEROL 1.25MG/0.5ML NEB INH SCH ×3 (01:41→14:17)
[2016-10-05] MEDS: HYDROCORTISONE IV 50 MG in SYRINGE 0 ML IV SCH ×2 (06:34→14:49)
[2016-10-05] MEDS: INSULIN ASPART 100 UNITS/ML 3 ML PEN SC SCH ×3 (08:03→17:15)
[2016-10-05] MEDS: BUDESONIDE 0.5 MG/2 ML VIAL (PULMICORT) INH SCH (08:23)
[2016-10-05 08:32] LABS: CALCIUM 8.4 mg/dl (8.5-10.1); CREATININE 1.4 mg/dl (0.60-1.40); POTASSIUM 2.9 mmol/L (3.5-5.1)
[2016-10-05] MEDS: FLUTICASONE PROPIONATE NA SPR 16 GM BTL SCH (08:59)
[2016-10-05] MEDS: ARTIFICIAL TEARS OP SOLN OPB SCH ×2 (08:59)
[2016-10-05] MEDS ORDERED: FINASTERIDE 5 MG TAB PO SCH (09:00)
[2016-10-05] MEDS ORDERED: DUTASTERIDE 0.5 MG CAP PO SCH (09:00)
[2016-10-05] MEDS: ASPIRIN 81 MG CHEW PO SCH (09:02)
[2016-10-05] MEDS: DOCUSATE SODIUM 100 MG CAP PO SCH (09:04)
[2016-10-05] MEDS: TORSEMIDE 20 MG TAB PO SCH (09:14)
[2016-10-05] MEDS: CALCIUM POLYCARBOPHIL 1 TAB PO SCH (09:15)
[2016-10-05] MEDS: BISACODYL 5 MG TABEC PO SCH (09:15)
[2016-10-05] MEDS: FLUDROCORTISONE ACETATE 0.1 MG TAB PO SCH (09:17)
[2016-10-05] MEDS: POTASSIUM CHLORIDE 20 MEQ TABCR PO SCH ×3 (09:18→15:00)
[2016-10-05] MEDS: MAGNESIUM OXIDE 400 MG TAB PO SCH (09:18)
[2016-10-05] MEDS: GUAIFENESIN 600 MG TABCR PO SCH (09:19)
[2016-10-05] MEDS: GABAPENTIN 600 MG TAB PO SCH (09:19)
[2016-10-05] MEDS: OXYCODONE HCL 15 MG TABCR (OXYCONTIN) PO SCH (09:23)
[2016-10-05] MEDS: CLOPIDOGREL BISULFATE 75 MG TAB PO SCH (09:23)
[2016-10-05] MEDS: PANTOprazole SOD 40 MG TAB PO SCH (09:24)
[2016-10-05] MEDS: LIDODERM (LIDOCAINE) PATCH 5% TD SCH (09:30)
[2016-10-05] MEDS ORDERED: NURSING VERBAL MED ORDER ONE (10:00)
[2016-10-05] MEDS ORDERED: LEVOFLOXACIN 750MG / D5W IV SCH (14:00)
[2016-10-05] MEDS ORDERED: MCRK20 PO (15:25)
[2016-10-05] MEDS ORDERED: DMD20 PO (15:25)
[2016-10-05] MEDS ORDERED: LVQ750 PO (15:31)
--- NOTE | 2016-10-05 15:35 | Discharge Instructions ---
Discharge Instructions Date of Service Oct 05, 2016. Admission Reason for Admission: Acute On Chronic Respiratory Failure W/ Hypoxia An Discharge Discharge Diagnosis / Problem: Left pneuomonia Discharge Goals Goal(s): Improve function Activity Recommendations Activity Limitations: resume your previous activity Lifting Limitations: none . Instructions / Follow-Up Instructions / Follow-Up primary care physician in 1 week Current Hospital Diet Patient's current hospital diet: AHA Diet (Heart Healthy), Diabetes Type 2 Diet Discharge Diet Recommended Diet: Diabetes Type 2 Diet Pending Studies Studies pending at discharge: no Medical Emergencies . Who to Call and When: Medical Emergencies: If at any time you feel your situation is an emergency, please call 911 immediately. . Non-Emergent Contact Non-Emergency issues call your: Primary Care Provider . Past History Medical & Surgical History: (1) Sepsis (2) Pneumonia (3) Adrenal insufficiency (4) Hypokalemia . "Provider Documentation" section prepared by Antonio Hamlin. VTE Core Measure Inpt VTE Proph given/why not?: SCD's
[2016-10-06] MEDS ORDERED: XPNINS NEB (00:12)
[2016-10-06] MEDS ORDERED: ACET-1311 PO (00:25)
--- NOTE | 2016-10-15 13:17 | DISCHARGE SUMMARY ---
Please see dictated H\T\P for full details of his presentation. The patient is an 86-year-old gentleman who presented to the Emergency Room with decreased oral intake, generalized malaise, sore throat, and confusion over the past 24 hours and was found to have acute on chronic respiratory failure, secondary to left upper lung lesion with hypoxemia. He was started on vancomycin with Zosyn and Levaquin. He had a history of coronary artery disease, diabetes, hypercholesterolemia, and adrenal insufficiency. For his adrenal insufficiency, he was started on IV hydrocortisone 50 q. 8. Pulmonary consultation was obtained with Dr. Ware. Dr. Ware's evaluation agreed with: 1. Left upper lobe pneumonia, which was consistent with healthcare facility associated pneumonia. 2. Sepsis. 3. Urinary tract infection. 4. Chronic obstructive pulmonary disease with exacerbation. 5. History of stroke. He recommended Levaquin, Zosyn and consultation with pharmacy for vancomycin. The patient had difficulties with urinary retention and was straight cathed for 700 mL. On 10/04, urology consultation was obtained and urology recommended placing a Ball catheter for urinary retention, recommended treating urinary tract infection with Levaquin for 10-14 days, recommended continuing with tamsulosin and Avodart and following up with Dr. Miller in 2 weeks. The patient was deemed stable for discharge on 10/05 on Levaquin. Vancomycin was discontinued since there was no MRSA and prednisone taper was recommended instead of the hydrocortisone by Dr. Ware. Time spent in review of the chart, discussion with the patient on the day of discharge was 35 minutes.
[2016-11-10] MEDS ORDERED: FLR1 PO (07:47)
[2016-11-10] MEDS ORDERED: LCTX PO (07:47)
[2016-11-10] MEDS ORDERED: CIPR1TAB11 PO (07:48)
[2017-03-01] MEDS ORDERED: GFNSR600 PO (00:08)
[2017-03-01] MEDS ORDERED: DOCU-94 PO (00:15)
[2017-03-01] MEDS ORDERED: ACET-1256 PO (00:18)
[2017-03-01] MEDS ORDERED: METO2.5T PO (00:23)
[2017-03-01] MEDS ORDERED: MULTTAB63 PO (09:07)
[2017-03-01] MEDS ORDERED: NTRGSL/4 SL (09:07)
[2017-03-01] MEDS ORDERED: MAGN400T6 PO (09:50)
[2017-03-01] MEDS ORDERED: POLY1SOL6 OPB (09:50)
[2017-03-01] MEDS ORDERED: CLOP1TAB15 PO (09:56)
[2017-03-01] MEDS ORDERED: BISA1TAB15 PO (12:45)
[2017-03-01] MEDS ORDERED: ATV5X PO (12:47)
[2017-03-01] MEDS ORDERED: ATEN-173 PO (12:47)
[2017-03-01] MEDS ORDERED: HYDR20TA3 PO (16:12)
[2017-03-01] MEDS ORDERED: PRLSR20 PO (19:07)
[2017-03-26] MEDS ORDERED: WARF3TAB6 PO (20:54)
[2017-03-28] MEDS ORDERED: HYD10 PO (16:37)
[2017-03-28] MEDS ORDERED: MCRK20 PO (16:37)
[2017-03-28] MEDS ORDERED: CYAN10005 PO (16:37)
[2017-03-28] MEDS ORDERED: OXYSR15 PO (16:37)
[2017-03-28] MEDS ORDERED: HYDR20TA PO (16:53)
[2017-03-28] MEDS ORDERED: FLUC100T4 PO (17:10)
== END 2016-10-05 17:43 | DRG 871 ==
LOC: ENRESERVDT → ENRESERVTM → EDBD 17:50 → C.EDC 17:51 → C.2T 19:52 → C.MS2W 10-03 10:37
PROVIDERS: ADMIT Hospitalist; ATTEND Hospitalist
DX: A41.9 Sepsis, unspecified organism (principal); J96.21 Acute and chronic respiratory failure with hypoxia; E27.40 Unspecified adrenocortical insufficiency; J18.9 Pneumonia, unspecified organism; N39.0 Urinary tract infection, site not specified; J44.1 Chronic obstructive pulmonary disease with (acute) exacerbation; I25.2 Old myocardial infarction; Z95.5 Presence of coronary angioplasty implant and graft; Z82.49 Family history of ischemic heart disease and other diseases of the circulatory system; Z87.891 Personal history of nicotine dependence; R65.20 Severe sepsis without septic shock; E78.00 Pure hypercholesterolemia, unspecified; E21.3 Hyperparathyroidism, unspecified; E86.0 Dehydration; I95.1 Orthostatic hypotension; N40.0 Benign prostatic hyperplasia without lower urinary tract symptoms; G62.9 Polyneuropathy, unspecified; Z86.73 Personal history of transient ischemic attack (TIA), and cerebral infarction without residual deficits; J30.9 Allergic rhinitis, unspecified; R33.9 Retention of urine, unspecified; N18.9 Chronic kidney disease, unspecified; I50.9 Heart failure, unspecified; I12.9 Hypertensive chronic kidney disease with stage 1 through stage 4 chronic kidney disease, or unspecified chronic kidney disease; B96.5 Pseudomonas (aeruginosa) (mallei) (pseudomallei) as the cause of diseases classified elsewhere

== ENCOUNTER 2016-10-05 22:25 | Emergency (ER) | payer OTHER ==
[~2016-10-05] VITALS: Ht 180.3 cm; Wt 101.2 kg
[~2016-10-05 22:25] MED LIST changes: -ATV1 PO; -BISA10SU7 RE; +DMD20 PO; -LEVO-17 PO; +LVQ750 PO; -MAGNSUS5 PO; -METO2.5T PO; +MTHH1 PO; -NVLGIPEN SC; -POLY335025 PO; -POLYSOL4 OP
[2016-10-05 22:30] VITALS: Ht 180.3 cm; Wt 101.2 kg
--- NOTE | 2016-10-05 23:40 | EMERGENCY ROOM VISIT NOTE ---
History Report prepared by Hood: Marybel Man Under the Supervision of: Dr. Patricia Barrera D.O. First contact with patient: 23:12 Chief Complaint: CONFUSION Stated Complaint: UNABLE TO VOID Nursing Triage Summary: Patient from the [facility] at [facility]. Was dischareged from hospital today for pneumonia and bladder infection per . Staff called in report states patient had a Gomez patient thought it wasn't draining properly and the staff irrigated it and then patient became angry and pulled it out. Now unable to void. at bedside and concerned patient not acting appropriately and not himself. History of Present Illness The patient is an 86 year old male who presents to the Emergency Room with complaints of persistent confusion that began prior to arrival. He currently rates his discomfort as a 7/10 in severity. Per nursing staff, the patient was recently evaluated in the hospital for a bladder infection and pneumonia. They note that the patient is currently on antibiotics. Nursing staff reports that the patient also had urinary retention at that time and had a Gomez catheter placed. They state that today the patient became agitated and confused and accidently pulled his Gomez Catheter out. Nursing staff notes that the patient has become increasingly confused and agitated. Per the patient's , the patient can become confused when he is ill. She reports that the patient has been eating and drinking normally. The patient's the patient has lived at the [facility] since last October. She states that the patient has a history of diabetes and occasionally becomes hypoglycemic. Source of History: patient, spouse/significant other (), nursing staff Onset: prior to arrival Position: other (global) Symptom Intensity: 7/10 Quality: other (confusion) Timing: other (persistent) Review of Systems See HPI for pertinent positives & negatives. A total of 10 systems reviewed and were otherwise negative. Past Medical & Surgical Medical Problems: (1) Acute on chronic respiratory failure with hypoxia and hypercapnia (2) Acute renal failure (3) Anemia (4) chronic kidney disease (5) COPD (chronic obstructive pulmonary disease) (6) Coronary artery disease (7) CVA (cerebrovascular accident) (8) Essential hypertension (9) HTN (hypertension) (10) Hypercholesterolemia (11) Hyperparathyroidism (12) Hypotension (13) Influenza A (14) ME (myocardial infarction) (15) Peripheral vascular disease (16) TIA (transient ischemic attack) (17) Urinary retention (18) Urosepsis Surgical Problems: (1) H/O heart artery stent Family History FH: heart disease Hypertension Social History Smoking Status: Unknown if Ever Smoked Alcohol Use: occasionally Drug Use: none Marital Status: Housing Status: lives with significant other Occupation Status: retired Current/Historical Medications Scheduled Acetaminophen (Tylenol), 1,000 MG PO Q12 Aspirin (Aspirin Chewable), 81 MG PO DAILY Atenolol (Atenolol), 12.5 MG PO DAILY Atorvastatin (Lipitor), 20 MG PO HS Bisacodyl (Bisacodyl), 5 MG PO BID Calcium Polycarbophil (Fiber Laxative), 1 TAB PO DAILY Clopidogrel (Plavix), 75 MG PO DAILY Docusate Sodium (Colace), 100 MG PO BID Dutasteride (Avodart), 0.5 MG PO DAILY Famotidine (Pepcid), 20 MG PO HS Fludrocortisone Acetate (Florinef), 0.1 MG PO DAILY Fluticasone Prop/Salmeterol (Advair Diskus 250-50 Mcg/Dose), 1 PUFF INH BID Fluticasone Propionate (Fluticasone Propionate), 2 SPRAYS NA DAILY Gabapentin (Gabapentin), 600 MG PO BID Guaifenesin Ext Rel (Mucinex Ext Rel), 1,200 MG PO Q12 Hydrocortisone (Cortef), 40 MG PO BID Insulin Glargine (Lantus Solostar), 45 UNIT SC QPM Levalbuterol (Levalbuterol HCl), 1 VIAL NEB TID Levofloxacin (Levofloxacin), 750 MG PO Q48H Lidocaine (Lidocaine), 1 PATCH TD QAM Magnesium Oxide (Mag-Ox), 400 MG PO BID Methenamine Hippurate (Methenamine Hippurate), 1 GM PO HS Multiple Vitamins W/ Minerals (Therems M), 1 TAB PO DAILY Omeprazole (Prilosec), 20 MG PO DAILY Oxycodone HCl (Oxycontin), 15 MG PO Q12 Polyethylene Glycol-Propylene (Systane Ultra), 1 DROPS OPB BID Potassium Chloride (Klor-Con M20), 40 MEQ PO TID Tamsulosin HCl (Tamsulosin HCl), 0.4 MG PO HS Torsemide (Torsemide), 60 MG PO QAM Scheduled PRN Acetaminophen (Tylenol), 650 MG PO Q4 PRN for Pain or Fever Metolazone (Zaroxolyn), 2.5 MG PO DAILY PRN for WT GAIN 3LBS/24HR OR 5LB/WEEK Nitroglycerin (Nitrostat), 1 TAB SL UD PRN for Chest Pain Allergies Coded Allergies: No Known Allergies (Unverified , 10/06/16) Physical Exam Vital Signs Date Time Temp Pulse Resp B/P Pulse Ox O2 Delivery O2 Flow Rate FiO2 10/06/16 02:10 36.8 86 16 102/77 94 10/06/16 02:00 86 20 102/77 94 Room Air 10/06/16 00:00 89 20 136/83 94 Room Air 10/05/16 23:56 59 10/05/16 22:30 36.8 80 16 107/66 95 Room Air Physical Exam General: Confused, agitated at times. HEENT: Head - normocephalic and atraumatic Pupils are equal, round, and reactive to light. Extraocular eye muscles are intact, and sclera are anicteric. Nose - moist nasal mucosa without discharge. Mouth - extremely dry buccal mucosa, dry lips. Oropharynx is nonerythematous and there is no tonsillar exudate or edema noted. Neck: Supple; no JVD, nuchal rigidity, cervical lymphadenopathy. Heart: Regular rate and rhythm. There is a normal S1 and S2 with no murmurs, clicks, or gallops appreciated. Lungs: Clear to auscultation bilaterally with no wheezes, rales, or rhonchi. Abdomen: Soft, completely nontender, nondistended, with good bowel sounds. There are no palpable pulsatile masses or hepatosplenomegaly. There is no guarding, rigidity, or rebound noted. Extremities: 1+ edema in legs. No evidence of cyanosis, clubbing. There are easily palpable peripheral pulses. Skin: warm and dry with good turgor and no rashes. Medical Decision & Procedures Laboratory Results 10/06/16 00:10 Red Blood Count 3.71, Mean Corpuscular Volume 91.4, Mean Corpuscular Hemoglobin 28.8, Mean Corpuscular Hemoglobin Concent 31.6, Mean Platelet Volume 9.9, Neutrophils (%) (Auto) 69.2, Lymphocytes (%) (Auto) 17.9, Monocytes (%) (Auto) 11.0, Eosinophils (%) (Auto) 1.1, Basophils (%) (Auto) 0.2, Neutrophils # (Auto ) 3.21, Lymphocytes # (Auto) 0.83, Monocytes # (Auto) 0.51, Eosinophils # (Auto ) 0.05, Basophils # (Auto) 0.01 10/06/16 00:10 Test 10/05/16 23:29 10/05/16 23:35 10/06/16 00:10 Bedside Glucose 187 mg/dl (70-99) Urine Color YELLOW Urine Appearance CLEAR (CLEAR) Urine pH 5.5 (4.5-7.5) Urine Specific [place] 1.014 (1.000-1.030) Urine Protein NEG (NEG) Urine Glucose (UA) NEG (NEG) Urine Ketones NEG (NEG) Urine Occult Blood NEG (NEG) Urine Nitrite NEG (NEG) Urine Bilirubin NEG (NEG) Urine Urobilinogen NEG (NEG) Urine Leukocyte Esterase SMALL (NEG) Urine WBC (Auto) 5-10 /hpf (0-5) Urine RBC (Auto) 0-4 /hpf (0-4) Urine Hyaline Casts (Auto) 1-5 /lpf (0-5) Urine Epithelial Cells (Auto) 20-30 /lpf (0-5) Urine Bacteria (Auto) NEG (NEG) White Blood Count 4.64 K/uL (4.8-10.8) Red Blood Count 3.71 M/uL (4.7-6.1) Hemoglobin 10.7 g/dL (14.0-18.0) Hematocrit 33.9 % (42-52) Mean Corpuscular Volume 91.4 fL (80-100) Mean Corpuscular Hemoglobin 28.8 pg (25-34) Mean Corpuscular Hemoglobin Concent 31.6 g/dl (32-36) Platelet Count 171 K/uL (130-400) Mean Platelet Volume 9.9 fL (7.4-10.4) Neutrophils (%) (Auto) 69.2 % Lymphocytes (%) (Auto) 17.9 % Monocytes (%) (Auto) 11.0 % Eosinophils (%) (Auto) 1.1 % Basophils (%) (Auto) 0.2 % Neutrophils # (Auto) 3.21 K/uL (1.4-6.5) Lymphocytes # (Auto) 0.83 K/uL (1.2-3.4) Monocytes # (Auto) 0.51 K/uL (0.11-0.59) Eosinophils # (Auto) 0.05 K/uL (0-0.5) Basophils # (Auto) 0.01 K/uL (0-0.2) RDW Standard Deviation 56.9 fL (36.4-46.3) RDW Coefficient of Variation 16.9 % (11.5-14.5) Immature Granulocyte % (Auto) 0.6 % Immature Granulocyte # (Auto) 0.03 K/uL (0.00-0.02) Anion Gap 9.0 mmol/L (3-11) Est Creatinine Clear Calc Drug Dose 37.8 ml/min Estimated GFR () 41.4 Estimated GFR (Non- 35.7 BUN/Creatinine Ratio 13.3 (10-20) Calcium Level 8.3 mg/dl (8.5-10.1) Total Bilirubin 0.3 mg/dl (0.2-1) Aspartate Amino Transf (AST/SGOT) 11 U/L (15-37) Alanine Aminotransferase (ALT/SGPT) 24 U/L (12-78) Alkaline Phosphatase 69 U/L (45-117) Total Protein 6.3 gm/dl (6.4-8.2) Albumin 2.9 gm/dl (3.4-5.0) Globulin 3.4 gm/dl (2.5-4.0) Albumin/Globulin Ratio 0.9 (0.9-2) Laboratory results per my review. Medications Administered Medications (Trade) Dose Ordered Sig/Cole Route Start Time Stop Time Status Last Admin Dose Admin Sodium Chloride (Nss 500ml) 500 ml @ 999 mls/hr Q31M STAT IV 10/06/16 01:14 10/06/16 01:44 DC 10/06/16 01:25 999 MLS/HR Procedure The patient was treated with Sodium Chloride 500 ml @ 999 mls/hr IV. ECG Indication: other (confusion) Rate (beats per minute): 67 Rhythm: normal sinus Findings: PAC, RBBB, no acute ischemic change Comparison ECG Date: 10/03/16 Change: no significant change ED Course 8099: Past medical records reviewed. The patient was evaluated in room C4. A complete history and physical exam was performed. An IV lock was initiated and labs were drawn as above. 0030: I reviewed the patient's urinalysis from his previous admission. He had Pseudomonas in his urine and is currently on Levaquin. A bladder scan showed only 100 MLS urine. The patient describes significant urgency and was unable to urinate. A Gomez catheter was replaced and his urine was sent for urinalysis. He is much more comfortable at this time. He is able to drink fluids. 0109: I reevaluated the patient and his mental status has improved. He drank two glasses of orange juice and 1 glass of water. I discussed all the exam findings with the patient and his and I discussed the treatment plan. They verbalized complete understanding and agreement. The patient is going to receive some IV fluids and then will be ready for discharge. 0114: Ordered Sodium Chloride 500 ml @ 999 mls/hr IV. Medical Decision The patient is an 86 year old male who presents to the ED with confusion. Differential diagnosis includes hypoglycemia, hyperglycemia, dehydration, urinary retention, UTI. Lab interpretation: Hemoglobin 10.7 which is baseline, white blood cell count 4.6, BUN 23, creatinine 1.7, potassium 3.4, glucose 187, LFTs are normal, urinalysis is small leukocyte esterase and 5-10 white cells. This is an 86 showed male patient with history of urinary retention who unfortunately pulled out his Gomez catheter. The patient was just discharged in the hospital yesterday. He said significant decline in his renal function just since yesterday. He appears to be significantly dehydrated on physical exam. Urinalysis does not appear to be significantly infected. The patient is currently taking Levaquin. explains that the patient's mental status seems to be a bit bizarre. This has happened in the past when he has had an infection. After receiving oral fluids and IV fluids, the patient's mental status seemed to improve. I've encouraged him to leave the Gomez catheter in place until he follows up with Dr. Miller. He is to keep himself well-hydrated. Impression Primary Impression: Dehydration Additional Impression: Urinary retention Scribe Attestation The scribe's documentation has been prepared under my direction and personally reviewed by me in its entirety. I confirm that the note above accurately reflects all work, treatment, procedures, and medical decision making performed by me. Departure Information Dispostion Home / Self-Care Referrals Wilver Franco M.D. (PCP) Forms HOME CARE DOCUMENTATION FORM, IMPORTANT VISIT INFORMATION, WORK / SCHOOL INSTRUCTIONS Patient Instructions Dehydration, My [facility] Additional Instructions Take plenty of clear liquids Rest. Leave gomez cath in place. Follow up wt Dr. Miller [facility] Problem Qualifiers
[2016-10-05 23:51] LABS: URINE APPEARANCE CLEAR (CLEAR); URINE BILIRUBIN NEG (NEG); URINE COLOR YELLOW; URINE EPITHELIAL CELL AUTO 20-30 /lpf (0-5); URINE NITRITE NEG (NEG); URINE PH 5.5 (4.5-7.5); URINE SPECIFIC GRAVITY 1.014 (1.000-1.030); UROBILINOGEN NEG (NEG)
[2016-10-05 23:56] LABS: MANUAL MICROSCOPIC REQUIRED? NO; REVIEW REQ? NO
[2016-10-06] MEDS ORDERED: XPNINS NEB (00:12)
[2016-10-06 00:20] LABS: BASO % 0.2 %; BASO ABS # 0.01 K/uL (0-0.2); COMPLETE YES; EOS % 1.1 %; HEMATOCRIT 33.9 % (42-52); IG% 0.6 %; LYMPH % 17.9 %; LYMPH ABS # 0.83 K/uL (1.2-3.4); MEAN CELL VOLUME 91.4 fL (80-100); MEAN CORPUSCULAR HEMOGLOBIN 28.8 pg (25-34); MEAN CORPUSCULAR HGB CONC 31.6 g/dl (32-36); MEAN PLATELET VOLUME 9.9 fL (7.4-10.4); NEUT % 69.2 %; PLATELET COUNT 171 K/uL (130-400); RED BLOOD COUNT 3.71 M/uL (4.7-6.1); WHITE BLOOD COUNT 4.64 K/uL (4.8-10.8)
[2016-10-06] MEDS ORDERED: ACET-1311 PO (00:25)
[2016-10-06 00:59] LABS: ALB/GLOB RATIO 0.9 (0.9-2); BUN/CREATININE RATIO 13.3 (10-20); CALCIUM 8.3 mg/dl (8.5-10.1); CREATININE 1.7 mg/dl (0.60-1.40); POTASSIUM 3.4 mmol/L (3.5-5.1)
[2016-10-06] MEDS ORDERED: SODIUM CHLORIDE 0.9% 500ML 500 ML IV STA (01:14)
[2016-10-06 02:10] VITALS: BP 102/77; PULSE 86; TEMP 36.8; O2SAT 94
[2016-11-10] MEDS ORDERED: LCTX PO (07:47)
[2016-11-10] MEDS ORDERED: FLR1 PO (07:47)
[2016-11-10] MEDS ORDERED: CIPR1TAB11 PO (07:48)
[2017-03-01] MEDS ORDERED: GFNSR600 PO (00:08)
[2017-03-01] MEDS ORDERED: DOCU-94 PO (00:15)
[2017-03-01] MEDS ORDERED: ACET-1256 PO (00:18)
[2017-03-01] MEDS ORDERED: METO2.5T PO (00:23)
[2017-03-01] MEDS ORDERED: NTRGSL/4 SL (09:07)
[2017-03-01] MEDS ORDERED: MULTTAB63 PO (09:07)
[2017-03-01] MEDS ORDERED: POLY1SOL6 OPB (09:50)
[2017-03-01] MEDS ORDERED: MAGN400T6 PO (09:50)
[2017-03-01] MEDS ORDERED: CLOP1TAB15 PO (09:56)
[2017-03-01] MEDS ORDERED: BISA1TAB15 PO (12:45)
[2017-03-01] MEDS ORDERED: ATV5X PO (12:47)
[2017-03-01] MEDS ORDERED: ATEN-173 PO (12:47)
[2017-03-01] MEDS ORDERED: HYDR20TA3 PO (16:12)
[2017-03-01] MEDS ORDERED: PRLSR20 PO (19:07)
[2017-03-26] MEDS ORDERED: WARF3TAB6 PO (20:54)
[2017-03-28] MEDS ORDERED: HYD10 PO (16:37)
[2017-03-28] MEDS ORDERED: MCRK20 PO (16:37)
[2017-03-28] MEDS ORDERED: CYAN10005 PO (16:37)
[2017-03-28] MEDS ORDERED: OXYSR15 PO (16:37)
[2017-03-28] MEDS ORDERED: HYDR20TA PO (16:53)
[2017-03-28] MEDS ORDERED: FLUC100T4 PO (17:10)
== END 2016-10-06 02:30 | disposition home or self-care (01) ==
LOC: EDBD 22:25 → C.EDC 22:27
DX: E86.0 Dehydration (principal); R33.9 Retention of urine, unspecified; E11.22 Type 2 diabetes mellitus with diabetic chronic kidney disease; E78.00 Pure hypercholesterolemia, unspecified; N18.9 Chronic kidney disease, unspecified; I12.9 Hypertensive chronic kidney disease with stage 1 through stage 4 chronic kidney disease, or unspecified chronic kidney disease; J44.9 Chronic obstructive pulmonary disease, unspecified; I25.10 Atherosclerotic heart disease of native coronary artery without angina pectoris; E11.51 Type 2 diabetes mellitus with diabetic peripheral angiopathy without gangrene; I25.2 Old myocardial infarction; Z86.73 Personal history of transient ischemic attack (TIA), and cerebral infarction without residual deficits; Z98.61 Coronary angioplasty status; Z82.49 Family history of ischemic heart disease and other diseases of the circulatory system; Z79.02 Long term (current) use of antithrombotics/antiplatelets; Z79.4 Long term (current) use of insulin; Z79.82 Long term (current) use of aspirin; Z79.899 Other long term (current) drug therapy

== ENCOUNTER → 2016-10-08 | Outpatient (CLI) | payer OTHER ==
[~2016-10-08] MED LIST changes: +ACET-1256 PO; +ACET-1311 PO; +ADVIN25/60 INH; +AMOX875T PO; +ASPCH81X PO; +ATEN-173 PO; +ATV5X PO; +BISA1TAB15 PO; +CIPR1TAB11 PO; -CLC100X PO; +CLOP1TAB15 PO; +CMD5 PO; +CYAN10005 PO; +CYAN1TAB18 PO; +CYM30 PO; +DOCU-94 PO; +DULO60CA44 PO; +DUTA1CAP3 PO; +ENOX120I SQ; +FAMO1TAB47 PO; +FIBER PO; +FLR1 PO; +FLUC100T4 PO; +FLUD0.1T10 PO; +GFNSR600 PO; +GUAI1TAB55 PO; +HYD10 PO; +HYDR20TA PO; +HYDR20TA3 PO; +INSDGI SQ; +IPRA1AER2 INH; +LCTX PO; -LEVA45AE; +LEVO1TAB35 PO; +LINE1TAB6 PO; +LPT/20 PO; +MAGN400T6 PO; +METH1TAB5 PO; +METO2.5T PO; +MULTTAB63 PO; +NRN800 PO; +NTRGSL/4 SL; +NVLGI7030 SQ; +ONDA4TAB9 PO; +OXGN; +OXYC15TA89 PO; +POLY1SOL6 OPB; +POLY335019 PO; +PRED10TA PO; +PRED20TA PO; +PRLSR20 PO; -PSEU60TA80 PO; +SIME80CH PO; +TAMS0.4C38 PO; -TORS100T13 PO; -TORS20TA2 PO; +TROL10LO TOP; -TYLOTC500 PO; +WARF2.5T8 PO; +WARF2TAB PO; +WARF3TAB6 PO; +XPNINS NEB; +[UNRECOGNIZED DRUG - CODE] TOP; +[UNRECOGNIZED DRUG - REMARK]
[2016-10-08 08:53] LABS: HEMATOCRIT 37.7 % (42-52); MEAN CELL VOLUME 91.5 fL (80-100); MEAN CORPUSCULAR HEMOGLOBIN 27.9 pg (25-34); MEAN CORPUSCULAR HGB CONC 30.5 g/dl (32-36); MEAN PLATELET VOLUME 10.4 fL (7.4-10.4); PLATELET COUNT 217 K/uL (130-400); RED BLOOD COUNT 4.12 M/uL (4.7-6.1); WHITE BLOOD COUNT 5.11 K/uL (4.8-10.8)
[2016-10-08 09:00] LABS: BLOOD UREA NITROGEN 31 mg/dl (7-18); BUN/CREATININE RATIO 16.1 (10-20); CALCIUM 8.7 mg/dl (8.5-10.1); CARBON DIOXIDE 35 mmol/L (21-32); CHLORIDE 98 mmol/L (98-107); GLUCOSE 129 mg/dl (70-99); POTASSIUM 3.3 mmol/L (3.5-5.1); SODIUM 141 mmol/L (136-145)
== END | disposition home or self-care (01) ==
LOC: C.LABVPSUA 08:36
PROVIDERS: ATTEND Internal Medicine Critical Care Medicine
DX: N18.9 Chronic kidney disease, unspecified (principal); E11.9 Type 2 diabetes mellitus without complications

== ENCOUNTER 2016-10-22 12:01 | Emergency (ER) | payer OTHER ==
[~2016-10-22 12:01] MED LIST changes: -ACET-1256 PO; -ADVIN25/60 INH; -AMOX875T PO; -ASPCH81X PO; -ATEN-173 PO; -ATV5X PO; -BISA1TAB15 PO; -CIPR1TAB11 PO; -CLOP1TAB15 PO; -CMD5 PO; -CYAN10005 PO; -CYAN1TAB18 PO; -CYM30 PO; -DOCU-94 PO; -DULO60CA44 PO; -DUTA1CAP3 PO; -ENOX120I SQ; -FAMO1TAB47 PO; -FIBER PO; -FLR1 PO; -FLUC100T4 PO; -FLUD0.1T10 PO; -GFNSR600 PO; -GUAI1TAB55 PO; -HYD10 PO; -HYDR20TA PO; -HYDR20TA3 PO; -INSDGI SQ; -IPRA1AER2 INH; -LCTX PO; -LEVO1TAB35 PO; -LINE1TAB6 PO; -LPT/20 PO; -LVQ750 PO; -MAGN400T6 PO; -METH1TAB5 PO; -METO2.5T PO; -MULTTAB63 PO; -NRN800 PO; -NTRGSL/4 SL; -NVLGI7030 SQ; -ONDA4TAB9 PO; -OXGN; -OXYC15TA89 PO; -POLY1SOL6 OPB; -POLY335019 PO; -PRED10TA PO; -PRED20TA PO; -PRLSR20 PO; -SIME80CH PO; -TAMS0.4C38 PO; -TROL10LO TOP; -WARF2.5T8 PO; -WARF2TAB PO; -WARF3TAB6 PO; -[UNRECOGNIZED DRUG - CODE] TOP; -[UNRECOGNIZED DRUG - REMARK]
[2016-10-22 12:04] VITALS: TEMP 36.5; Ht 185.4 cm
--- NOTE | 2016-10-22 12:21 | EMERGENCY ROOM VISIT NOTE ---
History Report prepared by Hood: Soraida Zamorano Under the Supervision of: Dr. Terry Vallejo M.D. First contact with patient: 12:06 Chief Complaint: URINARY SYMPTOMS Stated Complaint: BURNING IN PENIS, SENSATION TO URINATE History of Present Illness The patient is a 86 year old male who presents to the Emergency Room with complaints of worsening urethral burning that began this morning. The patient has had an intermittent indwelling Gomez catheter since June 2016 due to urinary retention related to prostate issues. His notes that he has had his catheter out only a few days since then. This morning, he noticed the burning discomfort as well as a pressure-like sensation in his bladder, like he has to urinate. Despite feeling like he has to urinate, he has not been draining much urine. He did empty his leg bag this morning. The patient has had urinary tract infections in the past, but is not currently on any antibiotics. Denies fever, vomiting, appetite changes, or other complaints. Source of History: patient, spouse/significant other Onset: this morning Position: other () Quality: burning Timing: worsening Associated Symptoms: No fevers, No vomiting Note: Other symptoms: bladder pressure Review of Systems See HPI for pertinent positives & negatives. A total of 10 systems reviewed and were otherwise negative. Past Medical & Surgical Medical Problems: (1) Acute on chronic respiratory failure with hypoxia and hypercapnia (2) Acute renal failure (3) Anemia (4) chronic kidney disease (5) COPD (chronic obstructive pulmonary disease) (6) Coronary artery disease (7) CVA (cerebrovascular accident) (8) Essential hypertension (9) HTN (hypertension) (10) Hypercholesterolemia (11) Hyperparathyroidism (12) Hypotension (13) Influenza A (14) LA (myocardial infarction) (15) Peripheral vascular disease (16) TIA (transient ischemic attack) (17) Urinary retention (18) Urosepsis Surgical Problems: (1) H/O heart artery stent Family History FH: heart disease Hypertension Social History Smoking Status: Never Smoker Alcohol Use: occasionally Drug Use: none Marital Status: Housing Status: lives with significant other Occupation Status: retired Current/Historical Medications Scheduled Acetaminophen (Tylenol), 1,000 MG PO Q12 Aspirin (Aspirin Chewable), 81 MG PO DAILY Atenolol (Tenormin), 25 MG PO DAILY Atorvastatin (Lipitor), 20 MG PO HS Bisacodyl (Bisacodyl), 5 MG PO BID Calcium Polycarbophil (Fiber Laxative), 1 TAB PO DAILY Clopidogrel (Plavix), 75 MG PO DAILY Docusate Sodium (Colace), 100 MG PO BID Dutasteride (Avodart), 0.5 MG PO DAILY Famotidine (Pepcid), 20 MG PO HS Fludrocortisone Acetate (Florinef), 0.1 MG PO DAILY Fluticasone Prop/Salmeterol (Advair Diskus 250-50 Mcg/Dose), 1 PUFF INH BID Fluticasone Propionate (Fluticasone Propionate), 2 SPRAYS NA DAILY Gabapentin (Gabapentin), 600 MG PO BID Guaifenesin Ext Rel (Mucinex Ext Rel), 1,200 MG PO Q12 Hydrocortisone (Cortef), 40 MG PO BID Insulin Glargine (Lantus Solostar), 45 UNIT SC QPM Levalbuterol (Levalbuterol HCl), 1 VIAL NEB TID Lidocaine (Lidocaine), 1 PATCH TD QAM Lorazepam (Lorazepam), 1 TAB PO HS Magnesium Oxide (Mag-Ox), 400 MG PO BID Methenamine Hippurate (Methenamine Hippurate), 1 GM PO HS Multiple Vitamins W/ Minerals (Therems M), 1 TAB PO DAILY Omeprazole (Prilosec), 20 MG PO DAILY Ondansetron (Ondansetron HCl), 1 TAB PO Q8 Oxycodone HCl (Oxycontin), 15 MG PO Q12 Polyethylene Glycol-Propylene (Systane Ultra), 1 DROPS OPB BID Potassium Chloride (Klor-Con M20), 40 MEQ PO TID Tamsulosin HCl (Tamsulosin HCl), 0.4 MG PO HS Torsemide (Torsemide), 60 MG PO QAM Scheduled PRN Acetaminophen (Tylenol), 650 MG PO Q4 PRN for Pain or Fever Metolazone (Zaroxolyn), 2.5 MG PO DAILY PRN for WT GAIN 3LBS/24HR OR 5LB/WEEK Nitroglycerin (Nitrostat), 1 TAB SL UD PRN for Chest Pain Allergies Coded Allergies: No Known Allergies (Unverified , 10/22/16) Physical Exam Vital Signs Date Time Temp Pulse Resp B/P Pulse Ox O2 Delivery O2 Flow Rate FiO2 10/22/16 13:42 67 111/72 98 10/22/16 12:04 36.5 66 20 116/68 94 Room Air Physical Exam GENERAL: Patient is in no acute distress. HEENT: No acute trauma, normocephalic atraumatic, mucous membranes moist, no nasal congestion, no scleral icterus. NECK: No stridor, no adenopathy, no meningismus, trachea is midline. LUNGS: Clear to auscultation bilaterally, no wheeze, no rhonchi, breath sounds equal. HEART: Heart tones are distant. Without murmurs gallops or rubs, regular rate and rhythm. ABDOMEN: Soft, mildly tender over the bladder although no obvious distension noted, bowel sounds positive, no hernias, no peritonitis. EXTREMITIES: No cyanosis, mild bilateral pedal edema, full range of motion of all the joints without pain or difficulty, no signs for acute trauma. NEUROLOGIC: Oriented x 3, no acute motor or sensory deficits, no focal weakness. SKIN: No rash, no jaundice, no diaphoresis. Medical Decision & Procedures Laboratory Results Test 10/22/16 12:30 Urine Color YELLOW Urine Appearance CLEAR (CLEAR) Urine pH 6.5 (4.5-7.5) Urine Specific [place] 1.009 (1.000-1.030) Urine Protein NEG (NEG) Urine Glucose (UA) NEG (NEG) Urine Ketones NEG (NEG) Urine Occult Blood NEG (NEG) Urine Nitrite NEG (NEG) Urine Bilirubin NEG (NEG) Urine Urobilinogen NEG (NEG) Urine Leukocyte Esterase TRACE (NEG) Urine WBC (Auto) 5-10 /hpf (0-5) Urine RBC (Auto) 0-4 /hpf (0-4) Urine Hyaline Casts (Auto) 1-5 /lpf (0-5) Urine Epithelial Cells (Auto) 5-10 /lpf (0-5) Urine Bacteria (Auto) NEG (NEG) Laboratory results reviewed by me. ED Course 1209: The patient was evaluated in room B2. A complete history and physical exam was performed. 1317: Reevaluated the patient. He was feeling better. His Gomez catheter was replaced and 1200 cc were drained. Discussed results and discharge instructions : He verbalized understanding and agreement. The patient is ready for discharge. Medical Decision Differential includes but is not limited to malfunctioning Gomez catheter, misplaced Gomez catheter, urinary retention, UTI, urethral irritation. The patient presents with a sensation that he has pressure in his bladder. He has burning in the area of his Gomez. He has had decreased urinary output today from the Gomez. The patient had his Gomez removed and a new one placed. 1200 mL of urine drained. He felt markedly better. Urinalysis does not suggest infection. The patient had a malfunctioning Gomez catheter. The Gomez catheter has been replaced and he is stable for discharge. He was encouraged to return for any worsening symptoms, fever or vomiting. A urine culture has been sent and is pending. Impression Primary Impression: Malfunction of Gomez catheter Scribe Attestation The scribe's documentation has been prepared under my direction and personally reviewed by me in its entirety. I confirm that the note above accurately reflects all work, treatment, procedures, and medical decision making performed by me. Departure Information Dispostion Home / Self-Care Referrals Wilver Franco M.D. (PCP) Forms HOME CARE DOCUMENTATION FORM, IMPORTANT VISIT INFORMATION Patient Instructions My [facility] Additional Instructions return with any gomez catheter issues or lack of drainage we will call with any urine infection found by culture
[2016-10-22] MEDS ORDERED: ONDA4TAB9 PO (12:47)
[2016-10-22 13:06] LABS: URINE APPEARANCE CLEAR (CLEAR); URINE BILIRUBIN NEG (NEG); URINE COLOR YELLOW; URINE NITRITE NEG (NEG); URINE PH 6.5 (4.5-7.5); URINE SPECIFIC GRAVITY 1.009 (1.000-1.030); UROBILINOGEN NEG (NEG)
[2016-10-22 13:13] LABS: MANUAL MICROSCOPIC REQUIRED? NO; REVIEW REQ? NO
[2016-10-22 13:42] VITALS: BP 111/72; PULSE 67; O2SAT 98
[2016-11-10] MEDS ORDERED: FLUD0.1T PO (07:47)
[2016-11-10] MEDS ORDERED: LCTX PO (07:47)
[2016-11-10] MEDS ORDERED: CIPR1TAB11 PO (07:48)
[2017-03-01] MEDS ORDERED: GFNSR600 PO (00:08)
[2017-03-01] MEDS ORDERED: DOCU-94 PO (00:15)
[2017-03-01] MEDS ORDERED: ACET-1256 PO (00:18)
[2017-03-01] MEDS ORDERED: METO2.5T PO (00:23)
[2017-03-01] MEDS ORDERED: MULTTAB63 PO (09:07)
[2017-03-01] MEDS ORDERED: NTRGSL/4 SL (09:07)
[2017-03-01] MEDS ORDERED: POLY1SOL6 OPB (09:50)
[2017-03-01] MEDS ORDERED: MAGN400T6 PO (09:50)
[2017-03-01] MEDS ORDERED: CLOP1TAB15 PO (09:56)
[2017-03-01] MEDS ORDERED: BISA1TAB15 PO (12:45)
[2017-03-01] MEDS ORDERED: ATV5X PO (12:47)
[2017-03-01] MEDS ORDERED: ATEN-173 PO (12:47)
[2017-03-01] MEDS ORDERED: HYDR20TA3 PO (16:12)
[2017-03-01] MEDS ORDERED: PRLSR20 PO (19:07)
[2017-03-01] MEDS ORDERED: METH-1305 PO (22:04)
[2017-03-26] MEDS ORDERED: WARF3TAB6 PO (20:54)
[2017-03-28] MEDS ORDERED: MCRK20 PO (16:37)
[2017-03-28] MEDS ORDERED: CYAN10005 PO (16:37)
[2017-03-28] MEDS ORDERED: HYD10 PO (16:37)
[2017-03-28] MEDS ORDERED: OXYSR15 PO (16:37)
[2017-03-28] MEDS ORDERED: HYDR20TA PO (16:53)
[2017-03-28] MEDS ORDERED: FLUC100T4 PO (17:10)
== END 2016-10-22 13:43 | disposition home or self-care (01) ==
LOC: C.EDB 12:02
DX: T85.618A Breakdown (mechanical) of other specified internal prosthetic devices, implants and grafts, initial encounter (principal); X58.XXXA Exposure to other specified factors, initial encounter; J96.21 Acute and chronic respiratory failure with hypoxia; J96.22 Acute and chronic respiratory failure with hypercapnia; N19 Unspecified kidney failure; D64.9 Anemia, unspecified; N18.9 Chronic kidney disease, unspecified; J44.9 Chronic obstructive pulmonary disease, unspecified; I63.9 Cerebral infarction, unspecified; I10 Essential (primary) hypertension; E78.00 Pure hypercholesterolemia, unspecified; E21.3 Hyperparathyroidism, unspecified; I21.3 ST elevation (STEMI) myocardial infarction of unspecified site; G45.9 Transient cerebral ischemic attack, unspecified; I73.9 Peripheral vascular disease, unspecified; Z82.49 Family history of ischemic heart disease and other diseases of the circulatory system; Z79.82 Long term (current) use of aspirin; Z79.4 Long term (current) use of insulin

== ENCOUNTER 2016-11-07 19:26 | Inpatient (IN) | payer OTHER ==
[~2016-11-07] VITALS: Ht 185.4 cm; Wt 99.6 kg
[~2016-11-07 19:26] MED LIST changes: +ONDA4TAB9 PO; -TNR25 PO
--- NOTE | 2016-11-07 20:32 | DIAGNOSTIC IMAGING REPORT ---
CHEST ONE VIEW PORTABLE HISTORY: fever COMPARISON: Chest 10/01/2016. Chest CT 08/17/2016. FINDINGS: Decrease in size in a 2.7 cm round left upper lobe airspace opacity. Bibasilar interstitial thickening, right greater than left. This has slightly progressed on the right.. No pleural effusions. No pneumothorax. The heart is stable in size. IMPRESSION: 1. Decrease in size in a 2.7 cm round left upper lobe airspace opacity. This favors a resolving pneumonia. An additional one month chest CT follow-up is recommended to ensure complete resolution. 2. Bibasilar interstitial thickening, right greater than left persists. This is slightly progressed on the right and could represent a developing pneumonia. Electronically signed by: Aubrey Kaplan M.D. 11/07/2016 8:30 PM Dictated Date/Time: 11/07/2016 8:27 PM
[2016-11-07 20:35] LABS: BASO % 0.1 %; BASO ABS # 0.01 K/uL (0-0.2); COMPLETE YES; EOS % 0.7 %; HEMATOCRIT 43.3 % (42-52); IG% 0.5 %; LYMPH % 12.3 %; LYMPH ABS # 1.12 K/uL (1.2-3.4); MEAN CELL VOLUME 93.5 fL (80-100); MEAN CORPUSCULAR HEMOGLOBIN 29.8 pg (25-34); MEAN CORPUSCULAR HGB CONC 31.9 g/dl (32-36); MEAN PLATELET VOLUME 10.7 fL (7.4-10.4); NEUT % 80.4 %; PLATELET COUNT 235 K/uL (130-400); RED BLOOD COUNT 4.63 M/uL (4.7-6.1); WHITE BLOOD COUNT 9.12 K/uL (4.8-10.8)
[2016-11-07] MEDS ORDERED: [UNRECOGNIZED DRUG - REMARK] (20:39)
[2016-11-07] MEDS ORDERED: ONDANSETRON INJ 2 MG/ML 2 ML VIAL IV STA (20:57)
[2016-11-07] MEDS ORDERED: SODIUM CHLORIDE 0.9% 1000ML 1,000 ML IV STA (20:57)
[2016-11-07] MEDS ORDERED: PIPERACILLIN/TAZOBACTAM 4.5 GM/100ML D5W IV STA (20:57)
[2016-11-07 20:58] LABS: ALKALINE PHOSPHATASE 101 U/L (45-117); BLOOD UREA NITROGEN 26 mg/dl (7-18); BUN/CREATININE RATIO 12.1 (10-20); CARBON DIOXIDE 34 mmol/L (21-32); CHLORIDE 98 mmol/L (98-107)
[2016-11-07 20:59] LABS: INR 0.9 (0.9-1.1); PROTHROMBIN TIME (PATIENT) 9.6 SECONDS (9.0-12.0)
[2016-11-07 21:15] LABS: ISTAT CREATININE 1.9 mg/dl (0.6-1.3); ISTAT HEMOGLOBIN 15.3 g/dl (14.0-18.0); ISTAT IONIZED CALCIUM 1.1 mmol/l (1.12-1.32)
[2016-11-07 21:25] LABS: POTASSIUM 3.9 mmol/L (3.5-5.1); SODIUM 140 mmol/L (136-145)
[2016-11-07 21:30] LABS: AST/SGOT 13 U/L (15-37); GLUCOSE 152 mg/dl (70-99); MAGNESIUM 2.4 mg/dl (1.8-2.4)
[2016-11-07 21:39] LABS: ALT/SGPT 30 U/L (12-78); CKMB/CK RATIO 1.5 (0-3.0)
[2016-11-07] MEDS ORDERED: ALBUTEROL 0.083% NEBU SOLN 3 ML VIAL INH PRN (21:45)
[2016-11-07 21:57] LABS: CALCIUM 9.1 mg/dl (8.5-10.1)
[2016-11-07] MEDS ORDERED: SIMETHICONE 80 MG CHEW PO PRN (22:00)
[2016-11-07] MEDS ORDERED: ALUMINUM/MAGNESIUM/SIMETH (MAALOX MAX) 30 ML UDC PO PRN (22:00)
[2016-11-07] MEDS ORDERED: LORAZEPAM 0.5 MG TAB PO PRN (22:00)
[2016-11-07] MEDS ORDERED: MoRPHine SULFATE 2 MG/ML CARP IV PRN (22:00)
[2016-11-07] MEDS ORDERED: ACETAMINOPHEN 325 MG TAB PO PRN (22:00)
[2016-11-07] MEDS ORDERED: MAGNESIUM HYDROXIDE SUSP 30 ML UDC PO PRN (22:00)
[2016-11-07] MEDS ORDERED: ONDANSETRON INJ 2 MG/ML 2 ML VIAL IV PRN (22:00)
[2016-11-07] MEDS ORDERED: NITROGLYCERIN 0.4 MG SL PER TAB CHARGE SL PRN (22:00)
[2016-11-07 22:21] LABS: URINE APPEARANCE CLEAR (CLEAR); URINE BILIRUBIN NEG (NEG); URINE COLOR YELLOW; URINE NITRITE POS (NEG); UROBILINOGEN NEG (NEG)
[2016-11-07 22:26] LABS: MANUAL MICROSCOPIC REQUIRED? NO; REVIEW REQ? YES
[2016-11-07 22:28] LABS: ZZUR CULT IF INDIC CLEAN CATCH YES
[2016-11-07] MEDS ORDERED: AZITHROMYCIN IV 500 MG in DEXTROSE 5% 250ML 250 ML IV SCH (23:00)
[2016-11-07 23:30] VITALS: BP 117/70; PULSE 93; TEMP 37; O2SAT 97; Ht 185.4 cm; Wt 99.6 kg
[2016-11-07] MEDS ORDERED: SODIUM CHLORIDE 0.9% 1000ML 1,000 ML IV SCH (23:30)
--- NOTE | 2016-11-07 23:30 | History and Physical ---
History & Physical Date & Time of Service: Nov 07, 2016 at 23:24 Chief Complaint: SOB Primary Care Physician: Wilver Franco M.D. History of Present Illness Source: patient, spouse 86 y/o M w/Hx COPD, CAD, CKD 3-4, aspiration - presents with fever/rigors, diaphoresis, SOB and N/V. The pts spouse has accompanied him and states that the presentation is typical for him when he gets an infection. He has been treated multiple times for pneumonia - possibly related to aspiration - and UTIs over the past year. He was d/cd from the hospital 2 weeks prior following pneumonia treatment and until recently was on an aspiration diet. The pt is a poor historian but is able to answer questions appropriately. He does not c/o SOB or CP at the time of admission. He is considerably tender and distended in his lower abdomen. Past Medical/Surgical History Medical Problems: (1) Anemia Status: Chronic (2) Asthma Status: Chronic (3) COPD (chronic obstructive pulmonary disease) Status: Chronic (4) Coronary artery disease Status: Chronic (5) CVA (cerebrovascular accident) Status: Resolved (6) Essential hypertension Status: Chronic (7) HTN (hypertension) Status: Chronic (8) Hypercholesterolemia Status: Chronic (9) Hyperparathyroidism Status: Chronic (10) Hypotension Status: Chronic (11) CO (myocardial infarction) Status: Resolved (12) Peripheral vascular disease Status: Chronic (13) TIA (transient ischemic attack) Status: Resolved Surgical Problems: (1) H/O heart artery stent Status: Resolved Family History FH: heart disease Hypertension Social History Smoking Status: Former Smoker Drug Use: none Marital Status: Housing status: lives with family, [facility] Occupational Status: retired Immunizations History of Influenza Vaccine: Yes Influenza Vaccine Date: Jun 08, 2013 History of Tetanus Vaccine?: Unknown History of Pneumococcal: Yes History of Hepatitis B Vaccine: Unknown Multi-Drug Resistant Organisms History of MDRO: No Allergies Coded Allergies: No Known Allergies (Unverified , 11/07/16) Home Medications Scheduled Acetaminophen (Tylenol), 1,000 MG PO Q12 Aspirin (Aspirin Chewable), 81 MG PO DAILY Atenolol (Tenormin), 12.5 MG PO DAILY Atorvastatin (Lipitor), 20 MG PO HS Bisacodyl (Bisacodyl), 5 MG PO BID Calcium Polycarbophil (Fiber Laxative), 1 TAB PO DAILY Clopidogrel (Plavix), 75 MG PO DAILY Docusate Sodium (Colace), 100 MG PO BID Dutasteride (Avodart), 0.5 MG PO QPM Famotidine (Pepcid), 20 MG PO HS Fludrocortisone Acetate (Florinef), 0.1 MG PO DAILY Fluticasone Prop/Salmeterol (Advair Diskus 250-50 Mcg/Dose), 1 PUFF INH BID Fluticasone Propionate (Fluticasone Propionate), 2 SPRAYS NA DAILY Gabapentin (Gabapentin), 600 MG PO TID Guaifenesin Ext Rel (Mucinex Ext Rel), 1,200 MG PO Q12 Hydrocortisone (Cortef), 40 MG PO BID Insulin Glargine (Lantus Solostar), 45 UNIT SC QPM Levalbuterol (Levalbuterol HCl), 1 VIAL NEB TID Lidocaine (Lidocaine), 1 PATCH TD QAM Magnesium Oxide (Mag-Ox), 400 MG PO BID Methenamine Hippurate (Methenamine Hippurate), 1 GM PO HS Multiple Vitamins W/ Minerals (Therems M), 1 TAB PO DAILY Omeprazole (Prilosec), 20 MG PO DAILY Oxycodone HCl (Oxycontin), 15 MG PO Q12 Polyethylene Glycol 3350 (Miralax), 17 GM PO BID Polyethylene Glycol-Propylene (Systane Ultra), 1 DROPS OPB BID Potassium Chloride (Klor-Con M20), 40 MEQ PO TID Tamsulosin HCl (Tamsulosin HCl), 0.4 MG PO HS Torsemide (Torsemide), 60 MG PO QAM [Blood Sugars], Unknown Dose BID Scheduled PRN Lorazepam (Lorazepam), 0.5 MG PO Q4 PRN for Anxiety/Agitation Metolazone (Zaroxolyn), 2.5 MG PO DAILY PRN for WT GAIN 3LBS/24HR OR 5LB/WEEK Nitroglycerin (Nitrostat), 1 TAB SL UD PRN for Chest Pain Simethicone (Gas-X), 80 MG PO QID PRN for Indigestion Trolamine Salicylate (Aspercreme), 1 APPLN TOP BID PRN for ARTHRITIS PAIN Review of Systems Constitutional: + chills, + fatigue, + fever, + sweats, + weakness Eyes: No eye pain, No worsening of vision ENT: No hearing loss, No nasal symptoms, No unusual epistaxis Respiratory: + cough, + shortness of breath, + sputum Cardiovascular: No PND, No chest pain, No orthopnea Abdomen: + nausea, + pain, + vomiting, No constipation, No diarrhea Musculoskeletal: No joint pain, No muscle pain Genitourinary - Male: No dysuria, No hematuria, No urinary frequency, No urinary urgency Neurologic: + weakness, No memory loss, No paralysis Psychiatric: No depression symptoms Endocrine: + fatigue Hematologic / Lymphatic: No abnormal bleeding/bruising Integumentary: No rash Allergic / Immunologic: No environmental allergies Physical Exam Vital Signs Date Time Temp Pulse Resp B/P Pulse Ox O2 Delivery O2 Flow Rate FiO2 11/07/16 22:55 88 20 99/49 98 Nasal Cannula 2.0 11/07/16 21:52 97 22 119/75 95 Nasal Cannula 4.0 11/07/16 20:36 98 11/07/16 19:57 96 Nasal Cannula 4.0 11/07/16 19:57 37.9 104 20 121/85 96 Nasal Cannula 4.0 11/07/16 19:57 96 Nasal Cannula 4.0 General Appearance: no apparent distress, + pertinent finding (Lethargic, obese elderly male in no distress - mild rigors present) Head: normocephalic Eyes: normal inspection, PERRL, EOMI ENT: normal ENT inspection, pharynx normal Neck: supple, + pertinent finding (CAnnot assess JVD due to habitus) Respiratory/Chest: chest non-tender, no accessory muscle use, + decreased breath sounds Cardiovascular: regular rate, rhythm, normal peripheral pulses, + systolic murmur, + pertinent finding (faint heart sounds) Abdomen/GI: + tenderness, + distended, + guarding (Distended and tender over both lower quadrants) Back: no CVA tenderness Extremities/Musculoskelatal: normal capillary refill, normal range of motion, + pedal edema Neurologic/Psych: informatica developer II-XII nml as tested, no motor/sensory deficits, alert, oriented x 3 Skin: normal color, warm/dry, no rash Diagnostics Laboratory Results Results Past 24 Hours Test 11/07/16 00:00 11/07/16 19:30 11/07/16 20:11/07/16 21:01 Range/Units Urine Color YELLOW Urine Appearance CLEAR CLEAR Urine pH 6.0 4.5-7.5 Urine Specific [place] 1.010 1.000-1.030 Urine Protein NEG NEG Urine Glucose (UA) NEG NEG Urine Ketones NEG NEG Urine Occult Blood NEG NEG Urine Nitrite POS NEG Urine Bilirubin NEG NEG Urine Urobilinogen NEG NEG Urine Leukocyte Esterase MODERATE NEG Urine WBC (Auto) 10-30 0-5 /hpf Urine RBC (Auto) 0-4 0-4 /hpf Urine Hyaline Casts (Auto) 1-5 0-5 /lpf Urine Epithelial Cells (Auto) 5-10 0-5 /lpf Urine Bacteria (Auto) NEG NEG Urine Yeast (Auto) BUD W/ HYPHAE NONE PRSENT White Blood Count 9.12 4.8-10.8 K/uL Red Blood Count 4.63 4.7-6.1 M/uL Hemoglobin 13.8 14.0-18.0 g/dL Hematocrit 43.3 42-52 % Mean Corpuscular Volume 93.5 80-100 fL Mean Corpuscular Hemoglobin 29.8 25-34 pg Mean Corpuscular Hemoglobin Concent 31.9 32-36 g/dl Platelet Count 235 130-400 K/uL Mean Platelet Volume 10.7 7.4-10.4 fL Neutrophils (%) (Auto) 80.4 % Lymphocytes (%) (Auto) 12.3 % Monocytes (%) (Auto) 6.0 % Eosinophils (%) (Auto) 0.7 % Basophils (%) (Auto) 0.1 % Neutrophils # (Auto) 7.33 1.4-6.5 K/uL Lymphocytes # (Auto) 1.12 1.2-3.4 K/uL Monocytes # (Auto) 0.55 0.11-0.59 K/uL Eosinophils # (Auto) 0.06 0-0.5 K/uL Basophils # (Auto) 0.01 0-0.2 K/uL RDW Standard Deviation 58.0 36.4-46.3 fL RDW Coefficient of Variation 16.9 11.5-14.5 % Immature Granulocyte % (Auto) 0.5 % Immature Granulocyte # (Auto) 0.05 0.00-0.02 K/uL Nucleated RBC Absolute Count (auto) 0.06 0-0 K/uL Nucleated Red Blood Cells % 0.7 % Prothrombin Time 9.6 9.0-12.0 SECONDS Prothromb Time International Ratio 0.9 0.9-1.1 Sodium Level 140 136-145 mmol/L Potassium Level 3.9 3.5-5.1 mmol/L Chloride Level 98 98-107 mmol/L Carbon Dioxide Level 34 21-32 mmol/L Anion Gap 9.0 16.0 16-25 mmol/L Blood Urea Nitrogen 26 7-18 mg/dl Creatinine 2.10 0.60-1.40 mg/dl Est Creatinine Clear Calc Drug Dose 31.4 ml/min Estimated GFR () 32.1 Estimated GFR (Non- 27.7 BUN/Creatinine Ratio 12.1 10-20 Random Glucose 152 70-99 mg/dl Calcium Level 9.1 8.5-10.1 mg/dl Magnesium Level 2.4 1.8-2.4 mg/dl Total Bilirubin 0.5 0.2-1 mg/dl Direct Bilirubin < 0.1 0-0.2 mg/dl Aspartate Amino Transf (AST/SGOT) 13 15-37 U/L Alanine Aminotransferase (ALT/SGPT) 30 12-78 U/L Alkaline Phosphatase 101 45-117 U/L Total Creatine Kinase 189 39-308 U/L Creatine Kinase MB 2.9 0.5-3.6 ng/ml Creatine Kinase MB Ratio 1.5 0-3.0 Troponin I < 0.015 0-0.045 ng/ml Total Protein 7.7 6.4-8.2 gm/dl Albumin 3.7 3.4-5.0 gm/dl Bedside Hemoglobin 15.3 14.0-18.0 g/dl Bedside Hematocrit 45 42-52 % Bedside Sodium 141 135-144 mEq/L Bedside Potassium 3.7 3.3-5.0 mEq/L Bedside Chloride 97 101-112 mEq/L Bedside Total CO2 33 24-31 mEq/l Bedside Blood Urea Nitrogen 29 7-18 mg/dl Bedside Creatinine 1.9 0.6-1.3 mg/dl Bedside Glucose (other) 150 70-99 mg/dl Bedside Ionized Calcium (Danny) 1.10 1.12-1.32 mmol/l Bedside Lactic Acid Venous 1.99 0.90-1.70 mmol/L Microbiology Results 11/07/16 Blood Culture, Received Pending 11/07/16 Blood Culture, Received Pending 11/07/16 Urine Culture, Received Pending Diagnostic Radiology 1. Decrease in size in a 2.7 cm round left upper lobe airspace opacity. This favors a resolving pneumonia. An additional one month chest CT follow-up is recommended to ensure complete resolution. 2. Bibasilar interstitial thickening, right greater than left persists. This is slightly progressed on the right and could represent a developing pneumonia. EKG Sinus - borderline tachy - RBBB Impression Assessment and Plan 86 y/o M w/Hx COPD, CAD, CKD 3-4, aspiration, adrenal insufficiency - presents with fever/rigors, diaphoresis, SOB and N/V. The pts spouse has accompanied him and states that the presentation is typical for him when he gets an infection. He has been treated multiple times for pneumonia - possibly related to aspiration - and UTIs over the past year. He was d/cd from the hospital 2 weeks prior following pneumonia treatment and until recently was on an aspiration diet. The pt is a poor historian but is able to answer questions appropriately. He does not c/o SOB or CP at the time of admission. He is considerably tender and distended in his lower abdomen. 1) Pneumonia - possible aspiration - he was D/Cd from the hospital 2 weeks prior following PNM treatment so that we will treat him for HCAP - in addition he has a history of Pseudomonas. Started on Vanc, Zosyn, Levaquin. Sputum cultures requested. Duonebs/Albuterol, 02 protocol provided. We have requested reevaluation for aspiration and would place him on a modified diet regardless when he is tolerating PO. 2) Vomiting, abdominal pain - pain and distension is present on exam so that a CT abdomen is ordered - results are pending - NPO, antiemetics provided. 3) CKD - 3-4 - creat is above baseline and he may be clinically dehydrated although his volume status is difficult to assess due to his obesity. We have held his AM diuretics and provided gentle hydration overnight. There is no indication of CHF on an echo dating to 2014 or mention of such on recent Cardio consults so that his diuretics are likely for prescribed for edema. 4) COPD - no change in 02 requirements or wheezing on exam - will receive duonebs - have held off on full dose steroids presently. 5) Adrenal insufficiency - hypotension - increased Cortef dose due to acute illness. 6) CAD - extensive LAD stenting - no evidence of ACS - cont ASA B opal , Statin Full code - Heparin prophylaxis Total time for this admit including review of labs, meds, EKG, imaging - extensive recent records - discussion with ER attending - pt and 48 min Level of Care Telemetry Resuscitation Status FULL RESUSCITATION VTE Prophylaxis VTE Risk Assessment Done? Y/N: Yes Risk Level: Moderate Given or contraindicated: Unfractionated heparin SQ
[2016-11-07] MEDS ORDERED: PIPERACILL/TAZOBAC CONSULT ACTIVE PRN (23:45)
[2016-11-07] MEDS ORDERED: VANCOMYCIN CONSULT ACTIVE PRN (23:45)
[2016-11-07] MEDS ORDERED: LEVOFLOXACIN CONSULT ACTIVE PRN (23:45)
--- NOTE | 2016-11-07 23:55 | EMERGENCY ROOM VISIT NOTE ---
History Report prepared by Hood: Saran Rosado Under the Supervision of: Dr. Oscar Crandall D.O. First contact with patient: 20:08 Chief Complaint: SHORTNESS OF BREATH Stated Complaint: SOB Nursing Triage Summary: patient to ED via ALS, per patient was well throughout the day until dinner time, at which time patient began shaking and being short of breath, states "he gets this way whenever he is coming down with something, he shakes a lot. He gets UTI's and pneumonia quite a bit." patient states "I don't know what is going on, just all of a sudden I was having trouble breathing, and not feeling well." History of Present Illness The patient is an 86 year old male with a history of asthma and COPD who presents to the Emergency Room via ambulance with complaints of persistent shortness of breath beginning eight and a half hours prior to arrival. He associates intermittent diaphoresis, sorethroat, fever, intermittent nausea, and intermittent vomiting with today's symptoms. The patient notes he began to sweat around noon, and when he got up around 6 PM, the sweating and shortness of breath began again. He states he normally wears 3 L of oxygen at night, and he does not wear it during the day. The patient notes he vomited four times today. As per , Mar[facility] at [facility] reported the patient having a fever. The patient denies a history of blood clots and being on blood thinners. The notes the patient is acting how he always does when he is sick. She denies the patient having a history of dementia. Pt denies headache, cough, runny nose, change in vision, chest pain, diarrhea, pain with urination, and melena. Source of History: patient, spouse/significant other () Onset: eight and a half hours [employer]ER Position: other (global) Quality: other (shortness of breath) Timing: other (persistent) Associated Symptoms: + SOB, + diaphoresis (intermittent), + fevers, + nausea (intermittent), + sorethroat, + vomiting (intermittent) Review of Systems See HPI for pertinent positives & negatives. A total of 10 systems reviewed and were otherwise negative. Past Medical & Surgical Medical Problems: (1) Acute on chronic respiratory failure with hypoxia and hypercapnia (2) Acute renal failure (3) Anemia (4) Asthma (5) chronic kidney disease (6) COPD (chronic obstructive pulmonary disease) (7) Coronary artery disease (8) CVA (cerebrovascular accident) (9) Essential hypertension (10) HTN (hypertension) (11) Hypercholesterolemia (12) Hyperparathyroidism (13) Hypotension (14) Influenza A (15) VT (myocardial infarction) (16) Peripheral vascular disease (17) TIA (transient ischemic attack) (18) Urinary retention (19) Urosepsis Surgical Problems: (1) H/O heart artery stent Family History FH: heart disease Hypertension Social History Smoking Status: Former Smoker Alcohol Use: occasionally Drug Use: none Marital Status: Housing Status: lives with significant other Occupation Status: retired Current/Historical Medications Scheduled Acetaminophen (Tylenol), 1,000 MG PO Q12 Aspirin (Aspirin Chewable), 81 MG PO DAILY Atenolol (Tenormin), 12.5 MG PO DAILY Atorvastatin (Lipitor), 20 MG PO HS Bisacodyl (Bisacodyl), 5 MG PO BID Calcium Polycarbophil (Fiber Laxative), 1 TAB PO DAILY Clopidogrel (Plavix), 75 MG PO DAILY Docusate Sodium (Colace), 100 MG PO BID Dutasteride (Avodart), 0.5 MG PO QPM Famotidine (Pepcid), 20 MG PO HS Fludrocortisone Acetate (Florinef), 0.1 MG PO DAILY Fluticasone Prop/Salmeterol (Advair Diskus 250-50 Mcg/Dose), 1 PUFF INH BID Fluticasone Propionate (Fluticasone Propionate), 2 SPRAYS NA DAILY Gabapentin (Gabapentin), 600 MG PO TID Guaifenesin Ext Rel (Mucinex Ext Rel), 1,200 MG PO Q12 Hydrocortisone (Cortef), 40 MG PO BID Insulin Glargine (Lantus Solostar), 45 UNIT SC QPM Levalbuterol (Levalbuterol HCl), 1 VIAL NEB TID Lidocaine (Lidocaine), 1 PATCH TD QAM Magnesium Oxide (Mag-Ox), 400 MG PO BID Methenamine Hippurate (Methenamine Hippurate), 1 GM PO HS Multiple Vitamins W/ Minerals (Therems M), 1 TAB PO DAILY Omeprazole (Prilosec), 20 MG PO DAILY Oxycodone HCl (Oxycontin), 15 MG PO Q12 Polyethylene Glycol 3350 (Miralax), 17 GM PO BID Polyethylene Glycol-Propylene (Systane Ultra), 1 DROPS OPB BID Potassium Chloride (Klor-Con M20), 40 MEQ PO TID Tamsulosin HCl (Tamsulosin HCl), 0.4 MG PO HS Torsemide (Torsemide), 60 MG PO QAM [Blood Sugars], Unknown Dose BID Scheduled PRN Lorazepam (Lorazepam), 0.5 MG PO Q4 PRN for Anxiety/Agitation Metolazone (Zaroxolyn), 2.5 MG PO DAILY PRN for WT GAIN 3LBS/24HR OR 5LB/WEEK Nitroglycerin (Nitrostat), 1 TAB SL UD PRN for Chest Pain Simethicone (Gas-X), 80 MG PO QID PRN for Indigestion Trolamine Salicylate (Aspercreme), 1 APPLN TOP BID PRN for ARTHRITIS PAIN Allergies Coded Allergies: No Known Allergies (Unverified , 11/07/16) Physical Exam Vital Signs Date Time Temp Pulse Resp B/P Pulse Ox O2 Delivery O2 Flow Rate FiO2 11/07/16 20:36 98 11/07/16 19:57 96 Nasal Cannula 4.0 11/07/16 19:57 37.9 104 20 121/85 96 Nasal Cannula 4.0 11/07/16 19:57 96 Nasal Cannula 4.0 Physical Exam GENERAL: sitting up in bed, ill-appearing, on nasal canula, mild distress EYE EXAM: normal conjunctiva, PERRL and EOM's grossly intact OROPHARYNX: no exudate, no erythema, lips, buccal mucosa, and tongue normal and mucous membranes are moist NECK: supple, no nuchal rigidity, no adenopathy, non-tender LUNGS: Coarse bilateral bases. Normal chest wall mechanics HEART: tachycardic, no murmurs, S1 normal and S2 normal ABDOMEN: abdomen soft, non-tender, normo-active bowel sounds, no masses, no rebound or guarding. BACK: Back is symmetrical on inspection and there is no deformity, no midline tenderness, no CVA tenderness. SKIN: no rashes and no bruising UPPER EXTREMITIES: upper extremities are grossly normal. LOWER EXTREMITIES: Calves equal bilaterally. NEURO EXAM: Alert, following commands, slightly disoriented to today's events, cranial nerves II-XII intact, normal speech, no gross weakness of arms, no gross weakness of legs. Medical Decision & Procedures ER Provider Diagnostic Interpretation: Radiology results as stated below per my review and the radiologist's interpretation: CHEST ONE VIEW PORTABLE HISTORY: fever COMPARISON: Chest 10/01/2016. Chest CT 08/17/2016. FINDINGS: Decrease in size in a 2.7 cm round left upper lobe airspace opacity. Bibasilar interstitial thickening, right greater than left. This has slightly progressed on the right.. No pleural effusions. No pneumothorax. The heart is stable in size. IMPRESSION: 1. Decrease in size in a 2.7 cm round left upper lobe airspace opacity. This favors a resolving pneumonia. An additional one month chest CT follow-up is recommended to ensure complete resolution. 2. Bibasilar interstitial thickening, right greater than left persists. This is slightly progressed on the right and could represent a developing pneumonia. Electronically signed by: Aubrey Kaplan M.D. 11/07/2016 8:30 PM Laboratory Results 11/07/16 19:30 Red Blood Count 4.63, Mean Corpuscular Volume 93.5, Mean Corpuscular Hemoglobin 29.8, Mean Corpuscular Hemoglobin Concent 31.9, Mean Platelet Volume 10.7, Neutrophils (%) (Auto) 80.4, Lymphocytes (%) (Auto) 12.3, Monocytes (%) (Auto) 6.0, Eosinophils (%) (Auto) 0.7, Basophils (%) (Auto) 0.1, Neutrophils # (Auto) 7.33, Lymphocytes # (Auto) 1.12, Monocytes # (Auto) 0.55, Eosinophils # (Auto) 0.06, Basophils # (Auto) 0.01 11/07/16 19:30 Test 11/07/16 00:00 11/07/16 19:30 11/07/16 20:29 11/07/16 21:01 Urine Color YELLOW Urine Appearance CLEAR (CLEAR) Urine pH 6.0 (4.5-7.5) Urine Specific [place] 1.010 (1.000-1.030) Urine Protein NEG (NEG) Urine Glucose (UA) NEG (NEG) Urine Ketones NEG (NEG) Urine Occult Blood NEG (NEG) Urine Nitrite POS (NEG) Urine Bilirubin NEG (NEG) Urine Urobilinogen NEG (NEG) Urine Leukocyte Esterase MODERATE (NEG) Urine WBC (Auto) 10-30 /hpf (0-5) Urine RBC (Auto) 0-4 /hpf (0-4) Urine Hyaline Casts (Auto) 1-5 /lpf (0-5) Urine Epithelial Cells (Auto) 5-10 /lpf (0-5) Urine Bacteria (Auto) NEG (NEG) Urine Yeast (Auto) BUD W/ HYPHAE (NONE PRSENT) White Blood Count 9.12 K/uL (4.8-10.8) Red Blood Count 4.63 M/uL (4.7-6.1) Hemoglobin 13.8 g/dL (14.0-18.0) Hematocrit 43.3 % (42-52) Mean Corpuscular Volume 93.5 fL (80-100) Mean Corpuscular Hemoglobin 29.8 pg (25-34) Mean Corpuscular Hemoglobin Concent 31.9 g/dl (32-36) Platelet Count 235 K/uL (130-400) Mean Platelet Volume 10.7 fL (7.4-10.4) Neutrophils (%) (Auto) 80.4 % Lymphocytes (%) (Auto) 12.3 % Monocytes (%) (Auto) 6.0 % Eosinophils (%) (Auto) 0.7 % Basophils (%) (Auto) 0.1 % Neutrophils # (Auto) 7.33 K/uL (1.4-6.5) Lymphocytes # (Auto) 1.12 K/uL (1.2-3.4) Monocytes # (Auto) 0.55 K/uL (0.11-0.59) Eosinophils # (Auto) 0.06 K/uL (0-0.5) Basophils # (Auto) 0.01 K/uL (0-0.2) RDW Standard Deviation 58.0 fL (36.4-46.3) RDW Coefficient of Variation 16.9 % (11.5-14.5) Immature Granulocyte % (Auto) 0.5 % Immature Granulocyte # (Auto) 0.05 K/uL (0.00-0.02) Nucleated RBC Absolute Count (auto) 0.06 K/uL (0-0) Nucleated Red Blood Cells % 0.7 % Prothrombin Time 9.6 SECONDS (9.0-12.0) Prothromb Time International Ratio 0.9 (0.9-1.1) Est Creatinine Clear Calc Drug Dose 31.4 ml/min Estimated GFR () 32.1 Estimated GFR (Non- 27.7 BUN/Creatinine Ratio 12.1 (10-20) Calcium Level 9.1 mg/dl (8.5-10.1) Magnesium Level 2.4 mg/dl (1.8-2.4) Total Bilirubin 0.5 mg/dl (0.2-1) Direct Bilirubin < 0.1 mg/dl (0-0.2) Aspartate Amino Transf (AST/SGOT) 13 U/L (15-37) Alanine Aminotransferase (ALT/SGPT) 30 U/L (12-78) Alkaline Phosphatase 101 U/L (45-117) Total Creatine Kinase 189 U/L (39-308) Creatine Kinase MB 2.9 ng/ml (0.5-3.6) Creatine Kinase MB Ratio 1.5 (0-3.0) Troponin I < 0.015 ng/ml (0-0.045) Total Protein 7.7 gm/dl (6.4-8.2) Albumin 3.7 gm/dl (3.4-5.0) Bedside Hemoglobin 15.3 g/dl (14.0-18.0) Bedside Hematocrit 45 % (42-52) Bedside Sodium 141 mEq/L (135-144) Bedside Potassium 3.7 mEq/L (3.3-5.0) Bedside Chloride 97 mEq/L (101-112) Bedside Total CO2 33 mEq/l (24-31) Anion Gap 16.0 mmol/L (16-25) Bedside Blood Urea Nitrogen 29 mg/dl (7-18) Bedside Creatinine 1.9 mg/dl (0.6-1.3) Bedside Glucose (other) 150 mg/dl (70-99) Bedside Ionized Calcium (Danny) 1.10 mmol/l (1.12-1.32) Bedside Lactic Acid Venous 1.99 mmol/L (0.90-1.70) Laboratory results per my review. Medications Administered Medications (Trade) Dose Ordered Sig/Cole Route Start Time Stop Time Status Last Admin Dose Admin Sodium Chloride (Nss 1000ml) 1,000 ml @ 999 mls/hr Q1H1M STAT IV 11/07/16 20:57 11/07/16 21:57 DC 11/07/16 21:55 999 MLS/HR Piperacillin Sod/ Tazobactam Sod (Zosyn Iv) 4.5 gm NOW STAT IV 11/07/16 20:57 11/07/16 20:58 DC 11/07/16 21:56 4.5 GM ECG Indication: SOB/dyspnea Rate (beats per minute): 99 Rhythm: sinus rhythm Findings: Q waves (Anterior and Lateral), left axis deviation, other (Poor baseline in inferior leads) Comparison ECG Date: 10/05/2016 Change: no significant change ED Course ED COURSE: Vital signs were reviewed and showed tachycardia, hypoxia, and febrile. The patients medical record was reviewed The above diagnostic studies were performed and reviewed. ED treatments and interventions as stated above. 2021: The patient was evaluated in room B9. A complete history and physical examination was performed. 2056: Ordered Zosyn Iv 4.5 gm IV, Zofran Inj 4 mg IV, Sodium Chloride 1,000 ml @ 999 mls/hr IV. 2113: Reevaluated and updated the patient at this time. 2134: I spoke to TIRSO Mendez (Hospitalist) about the patient's case, and he will follow the patient for further evaluation. 2139: Upon reevaluation, the patient is doing well.I discussed my findings with the patient and he understands and agrees with the treatment plan. Based on the patients age, coexisting illnesses, exam and lab findings the decision to treat as an inpatient was made. The patient remained stable while under my care. The patient will be evaluated for further management. Medical Decision Differential diagnoses includes but is not limited to pneumonia, bronchitis, COPD/Asthma exacerbation, pneumothorax, pulmonary embolism, congestive heart failure, acute coronary syndrome Patient is an 86 her old male who presents the ER for shortness of breath who only wears 3 L nasal cannula at night. She is breast started at 12 PM and has been progressively worsening. notes that he is slightly confused. He is febrile. Labs have no significant leukocytosis. BMP shows a creatinine of 2.1 slightly up from baseline of 1.7. Lactic acid was slightly elevated at 2. Chest x-ray supports a likely pneumonia and UA shows a clear UTI. Patient was given antibiotics and fluids. He is in its internal medicine with sepsis secondary to UTI and pneumonia. Consults Time Called: 2132 Consulting Physician: TIRSO Mendez (Hospitalist) Returned Call: 2134 I spoke to TIRSO Mendez (Hospitalist) about the patient's case, and he will follow the patient for further evaluation. Impression Primary Impression: PNA (pneumonia) Additional Impressions: Sepsis UTI (lower urinary tract infection) Scribe Attestation The scribe's documentation has been prepared under my direction and personally reviewed by me in its entirety. I confirm that the note above accurately reflects all work, treatment, procedures, and medical decision making performed by me. Departure Information Dispostion Being Evaluated By Hospitalist (TIRSO Mendez (Hospitalist) ) Referrals Wilver Franco M.D. (PCP) Problem Qualifiers Primary Impression: PNA (pneumonia) Pneumonia type: due to unspecified organism Laterality: unspecified laterality Lung location: unspecified part of lung Qualified Codes: J18.9 - Pneumonia, unspecified organism Additional Impressions: Sepsis Sepsis type: sepsis due to unspecified organism Qualified Codes: A41.9 - Sepsis, unspecified organism
[2016-11-08] VITALS (11 sets, daily range): BP systolic 91–112; BP diastolic 51–70; PULSE 64–90; TEMP 36.3–37.1; O2SAT 92–99
[2016-11-08] MEDS ORDERED: VANCOMYCIN INJ 2,500 MG in SODIUM CHLORIDE 0.9% 500ML 500 ML IV ONE ×2
[2016-11-08] MEDS ORDERED: MoRPHine SULFATE 4 MG/ML 1 ML CARP\\VIAL IV ONE (00:15)
[2016-11-08] MEDS ORDERED: MoRPHine SULFATE 4 MG/ML 1 ML CARP\\VIAL ONE (00:21)
[2016-11-08] MEDS: ALBUT/IPRATROP 3MG/0.5MG NEB 3 ML VIAL INH SCH ×4 (01:24→19:23)
[2016-11-08] MEDS ORDERED: GLUCOSE 10 TABS/TUBE PO PRN (02:00)
[2016-11-08] MEDS ORDERED: DEXTROSE 50% 50 ML SYR IV PRN (02:00)
[2016-11-08] MEDS ORDERED: GLUCOSE 40% GEL 15 GM TUBE PO PRN (02:00)
[2016-11-08] MEDS ORDERED: LEVOFLOXACIN / D5W 750 MG in PREMIXED IN D5W 150 ML IV SCH (02:00)
[2016-11-08] MEDS ORDERED: GLUCAGON FOR INJ 1 MG VIAL SQ PRN (02:00)
[2016-11-08] MEDS: HYDROCORTISONE IV 50 MG in SYRINGE 0 ML IV SCH ×2 (03:56→14:05)
[2016-11-08] MEDS: PIPERACILL/TAZOBAC IV 3.375 GM in DEXTROSE 5% 100ML 100 ML IV SCH ×3 (04:07→20:42)
[2016-11-08] MEDS ORDERED: MoRPHine SULFATE 2 MG/ML CARP IV ONE (05:30)
[2016-11-08] MEDS: HEPARIN SOD 5000 UNIT/0.5 ML CARP SQ SCH ×3 (05:53→21:00)
[2016-11-08 06:23] LABS: BUN/CREATININE RATIO 13.6 (10-20); CALCIUM 8.4 mg/dl (8.5-10.1); MAGNESIUM 2.5 mg/dl (1.8-2.4); POTASSIUM 3.5 mmol/L (3.5-5.1)
[2016-11-08 06:24] LABS: HEMATOCRIT 38.9 % (42-52); MEAN CELL VOLUME 92.2 fL (80-100); MEAN CORPUSCULAR HEMOGLOBIN 28.4 pg (25-34); MEAN CORPUSCULAR HGB CONC 30.8 g/dl (32-36); PLATELET COUNT 191 K/uL (130-400); RED BLOOD COUNT 4.22 M/uL (4.7-6.1); WHITE BLOOD COUNT 9.28 K/uL (4.8-10.8)
--- NOTE | 2016-11-08 08:00 | DIAGNOSTIC IMAGING REPORT ---
CT SCAN OF THE ABDOMEN AND PELVIS WITHOUT IV CONTRAST CLINICAL HISTORY: Generalized abdominal pain. COMPARISON STUDY: Abdominal CT dated 07/14/2016 TECHNIQUE: CT scan of the abdomen and pelvis is performed from the lung bases to the proximal femora. Images are reviewed in the axial, sagittal, and coronal planes. IV contrast was not administered for this examination as per the referring clinician. Note that the examination was performed in significantly suboptimal fashion without IV contrast. Oral contrast was utilized. The examination is also degraded by streak artifact from the patient's arms which could not be elevated above the abdomen. Automated dose control exposure was utilized. CT DOSE: 1486.75 mGy.cm FINDINGS: Lung bases: The heart is enlarged and without pericardial effusion. The coronary arteries are densely calcified. There is lipomatous hypertrophy of the interatrial septum. A tiny hiatal hernia is observed. Evaluation of the lung parenchyma is significantly degraded by motion artifact. Emphysema is suspected. Patchy airspace opacities are seen at the right lung base. No pleural effusion is identified. Liver: Evaluation of the liver is degraded by streak artifact. The unenhanced liver is normal in size, contour, and attenuation. There is no intrahepatic biliary ductal dilatation. Gallbladder: A small calcified gallstone is identified. The gallbladder is mildly distended but otherwise normal in appearance. Spleen: Normal in size and attenuation. There are scattered calcified granulomas. Pancreas: Atrophic and grossly unremarkable. Adrenal glands: Unremarkable. Kidneys: The unenhanced kidneys are atrophic and without hydronephrosis. There are no renal calculi identified. A 1.2 cm exophytic cyst is again seen arising from the lower pole of the left kidney. Abdominal vasculature: The abdominal aorta is normal in course and caliber noting advanced atherosclerotic calcification. Bowel: The small bowel and colon are normal in course and caliber. There is advanced colonic diverticulosis without clear CT evidence of acute diverticulitis. Moderate colonic fecal retention is observed. The appendix is well-visualized and normal. Peritoneum: There is no intraperitoneal free air or abdominal ascites. Lymphadenopathy: None. Pelvic viscera: The bladder is partially decompressed around a Ball catheter and not well assessed. Foci of intraluminal gas are likely related to instrumentation. The prostate gland is diminutive. There are bilateral fat-containing inguinal hernias. Skeletal structures: The skeletal structures are osteopenic. There is moderate to advanced lumbar sacral spondylosis. Numerous posterior disc osteophyte complexes likely contribute to multilevel acquired compromise of the central canal. No lytic or blastic lesions are seen. IMPRESSION: 1. Significantly suboptimal examination without IV contrast. 2. There are no acute infectious or inflammatory findings in the abdomen or pelvis. 3. Suspect emphysema. 4. There are patchy airspace opacities at the right lung base. This could represent atelectasis, mild fibrosis, and/or an infectious/inflammatory pneumonitis. Clinical correlation will be required. 5. Advanced colonic diverticulosis without CT evidence of acute diverticulitis. 6. Moderate constipation. 7. Cholelithiasis. The gallbladder is mildly distended but otherwise normal in appearance. There is no convincing CT evidence of acute cholecystitis. 8. Additional findings as above. Electronically signed by: Terry Puente M.D. 11/08/2016 7:58 AM Dictated Date/Time: 11/08/2016 7:51 AM
[2016-11-08] MEDS: ARTIFICIAL TEARS OP SOLN OPB SCH ×4 (09:00→20:43)
[2016-11-08] MEDS: FLUTICASONE/SALMETEROL 250/50 (ADVAIR) 14 PUFF/1 INHALER INH SCH ×2 (09:50→20:42)
[2016-11-08] MEDS: FLUTICASONE PROPIONATE NA SPR 16 GM BTL SCH (09:50)
[2016-11-08] MEDS: OXYCODONE HCL 15 MG TABCR (OXYCONTIN) PO SCH ×2 (09:51→20:50)
[2016-11-08] MEDS: LIDODERM (LIDOCAINE) PATCH 5% TD SCH (09:52)
[2016-11-08] MEDS: POTASSIUM CHLORIDE 20 MEQ TABCR PO SCH ×3 (09:53→20:51)
[2016-11-08] MEDS: ASPIRIN 81 MG ECTAB PO SCH (09:54)
[2016-11-08] MEDS: GABAPENTIN 600 MG TAB PO SCH ×3 (09:55→20:51)
[2016-11-08] MEDS: MAGNESIUM OXIDE 400 MG TAB PO SCH ×2 (09:56→20:50)
[2016-11-08] MEDS: DOCUSATE SODIUM 100 MG CAP PO SCH ×2 (11:23→20:44)
[2016-11-08] MEDS: GUAIFENESIN 600 MG TABCR PO SCH ×2 (11:25→20:52)
[2016-11-08] MEDS: TORSEMIDE 20 MG TAB PO SCH (11:26)
[2016-11-08] MEDS: FLUDROCORTISONE ACETATE 0.1 MG TAB PO SCH (11:26)
[2016-11-08] MEDS: PANTOprazole SOD 40 MG TAB PO SCH (11:27)
[2016-11-08] MEDS: CALCIUM POLYCARBOPHIL 1 TAB PO SCH (11:28)
[2016-11-08] MEDS: CLOPIDOGREL BISULFATE 75 MG TAB PO SCH (11:29)
--- NOTE | 2016-11-08 11:33 | Progress Note ---
Subjective Date of Service: Nov 08, 2016. Subjective Pt evaluation today including: conversation w/ patient, physical exam, chart review, lab review, review of studies, review of inpatient medication list Patient laying in bed comfortably, HOB up. Passed swallowing evaluation. No coughing at this time. Reports being tired. No chest pain, no sob. Problem List Medical Problems: (1) Acute on chronic renal failure Status: Acute (2) Confusion Status: Acute (3) Fever Status: Acute (4) Hypoglycemia Status: Acute (5) Hypoxia Status: Acute (6) Influenza A Status: Acute (7) Malfunction of Ball catheter Status: Acute (8) PNA (pneumonia) Status: Acute (9) Reactive airway disease Status: Acute (10) Sepsis Status: Acute (11) UTI (lower urinary tract infection) Status: Acute Review of Systems All Other Systems: Reviewed and Negative Medications Acetaminophen (Tylenol Tab) 650 mg Q4H PRN PO; Start 11/07/16 at 22:00; Stop 12/07/16 at 21:59 Al Hydrox/Mg Hydrox/Simethicone (Maalox Max Susp) 15 ml Q4H PRN PO; Start 11/07 at 22:00; Stop 12/07/16 at 21:59 Albuterol Sulfate (Ventolin 0.083% 2.5MG/3ML Neb) 2.5 mg Q4H PRN INH; Start at 21:45; Stop 12/07/16 at 21:44 Albuterol/ Ipratropium (Duoneb) 3 ml Q6R INH Last administered on 11/08/16 07: 26; Admin Dose 3 ML; Start 11/08/16 at 03:00; Stop 12/08/16 at 02:59 Artificial Tears (Artificial Tears) 1 drops BID OPB; Start 11/08/16 at 09:00; Stop 12/08/16 at 08:59 Aspirin (Ecotrin Tab) 81 mg DAILY PO Last administered on 11/08/16 09:54; Admin Dose 81 MG; Start 11/08/16 at 09:00; Stop 12/08/16 at 08:59 Atenolol (Tenormin Tab) 12.5 mg DAILY PO Last administered on 11/08/16 09:56; Admin Dose 12.5 MG; Start 11/08/16 at 09:00; Stop 12/08/16 at 08:59 Atorvastatin Calcium (Lipitor Tab) 20 mg HS PO; Start 11/08/16 at 21:00; Stop at 20:59 Bisacodyl (Dulcolax Tab) 5 mg BID PO Last administered on 11/08/16 11:36; Admin Dose 5 MG; Start 11/08/16 at 09:00; Stop 12/08/16 at 08:59 Calcium Polycarbophil (Fibercon Tab) 1 tab DAILY PO Last administered on 11:28; Admin Dose 1 TAB; Start 11/08/16 at 09:00; Stop 12/08/16 at 08:59 Clopidogrel Bisulfate (plAVix TAB) 75 mg DAILY PO Last administered on 11:29; Admin Dose 75 MG; Start 11/08/16 at 09:00; Stop 12/08/16 at 08:59 Dextrose (Dextrose 50% 50ML Syringe) 25-50ML OF 50% DW IV FOR... UD PRN IV; Start 11/08/16 at 02:00; Stop 12/08/16 at 01:59 Docusate Sodium (coLACE CAP) 100 mg BID PO Last administered on 11/08/16 11:23 ; Admin Dose 100 MG; Start 11/08/16 at 09:00; Stop 12/08/16 at 08:59 Dutasteride (Avodart Cap) 0.5 mg PM PO; Start 11/08/16 at 21:00; Stop 12/08/16 at 20:59; Status UNV Famotidine (Pepcid Tab) 20 mg HS PO; Start 11/08/16 at 21:00; Stop 12/08/16 at 20:59 Fludrocortisone Acetate (Florinef Tab) 0.1 mg DAILY PO Last administered on 11/08 11:26; Admin Dose 0.1 MG; Start 11/08/16 at 09:00; Stop 12/08/16 at 08:59 Fluticasone Propionate (Flonase Nasal Mertzon) 2 sprays DAILY NA Last administered on 11/08/16 09:50; Admin Dose 2 SPRAYS; Start 11/08/16 at 09:00; Stop 12/08/16 at 08:59 Gabapentin (Neurontin Tab) 600 mg TID PO Last administered on 11/08/16 09:55; Admin Dose 600 MG; Start 11/08/16 at 09:00; Stop 12/08/16 at 08:59 Glucagon (Glucagon Inj) 1 mg UD PRN SQ; Start 11/08/16 at 02:00; Stop 12/08/16 at 01:59 Glucose (Glucose 40% Gel) 15-30 GRAMS 15 GRAMS... UD PRN PO; Start 11/08/16 at 02:00; Stop 12/08/16 at 01:59 Glucose (Glucose Chew Tab) 4-8 Tablets 4 Tabl... UD PRN PO; Start 11/08/16 at 02:00; Stop 12/08/16 at 01:59 Guaifenesin (Mucinex Contr Rel Tab) 1,200 mg Q12H PO Last administered on 11:25; Admin Dose 1,200 MG; Start 11/08/16 at 09:00; Stop 12/08/16 at 08:59 Heparin Sodium (Porcine) (Heparin Sq 5000 Unit/0.5ml) 5,000 unit Q8H SQ Last administered on 11/08/16 05:53; Admin Dose 5,000 UNIT; Start 11/08/16 at 06:00 ; Stop 12/08/16 at 05:59 Hydrocortisone Sodium Succinate 50 mg/Syringe 1 ml @ 4 mls/min Q12H IV Last administered on 11/08/16 03:56; Admin Dose 4 MLS/MIN; Start 11/08/16 at 02:00; Stop 12/08/16 at 01:59 Insulin Glargine (Lantus Solostar Pen) 45 unit QPM SC; Start 11/08/16 at 21:00; Stop 12/08/16 at 20:59 Levofloxacin (Consult) 1 ea UD PRN N/A; Start 11/07/16 at 23:45; Stop 12/07/16 at 23:44 Levofloxacin 750 mg/Prmx 150 ml @ 100 mls/hr Q48H IV Last administered on 01:22; Admin Dose 100 MLS/HR; Start 11/08/16 at 02:00; Stop 11/15/16 at 01: 59 Lidocaine (Lidoderm Patch 5%) 1 patch QAM TD Last administered on 11/08/16 09: 52; Admin Dose 1 PATCH; Start 11/08/16 at 09:00; Stop 12/08/16 at 08:59 Lorazepam (Ativan Tab) 0.5 mg Q4 PRN PO; Start 11/07/16 at 22:00; Stop at 21:59 Magnesium Hydroxide (Milk Of Magnesia Susp) 30 ml Q12H PRN PO; Start 11/07/16 at 22:00; Stop 12/07/16 at 21:59 Magnesium Oxide (Mag-Ox Tab) 400 mg BID PO Last administered on 11/08/16 09:56 ; Admin Dose 400 MG; Start 11/08/16 at 09:00; Stop 12/08/16 at 08:59 Miscellaneous (Remove Lidoderm Patch) 1 ea DAILY@21 N/A; Start 11/08/16 at 21:00 ; Stop 12/08/16 at 20:59 Morphine Sulfate (MoRPHine SULFATE INJ) 2 mg Q30M PRN IV; Start 11/07/16 at 22: 00; Stop 11/21/16 at 21:59 Nitroglycerin (Nitrostat Tab) 0.4 mg UD PRN SL; Start 11/07/16 at 22:00; Stop 12/07/16 at 21:59 Non-Formulary Medication 1 ea 1 ea QID PRN EXT; Start 11/08/16 at 13:15; Stop 12/08/16 at 13:14; Status UNV Ondansetron HCl (Zofran Inj) 4 mg Q6H PRN IV; Start 11/07/16 at 22:00; Stop at 21:59 Oxycodone HCl (Oxycontin Tab) 15 mg Q12H PO Last administered on 11/08/16 09:51 ; Admin Dose 15 MG; Start 11/08/16 at 09:00; Stop 11/22/16 at 08:59 Pantoprazole Sodium (Protonix Tab) 40 mg DAILY PO Last administered on 11:27; Admin Dose 40 MG; Start 11/08/16 at 09:00; Stop 12/08/16 at 08:59 Piperacillin Sod/ Tazobactam Sod (Consult) 1 ea UD PRN N/A; Start 11/07/16 at 23:45; Stop 12/07/16 at 23:44 Piperacillin Sod/ Tazobactam Sod/ Dextrose (Zosyn Iv/D5 100ml) 115 ml @ 28.75 mls/ hr Q8H IV Last administered on 11/08/16 11:27; Admin Dose 28.75 MLS/HR; Start 11/08/16 at 04:00; Stop 11/15/16 at 03:59 Polyethylene 17 gm 17 gm DAILY PRN PO; Start 11/07/16 at 22:00; Stop 12/07/16 at 21:59 Potassium Chloride (Klor-Con Tab) 40 meq TID PO Last administered on 11/08/16 09:53; Admin Dose 40 MEQ; Start 11/08/16 at 09:00; Stop 12/08/16 at 08:59 Salmeterol Xinafoate/ Fluticasone (Advair Diskus 250/50 Inh) 1 puff BID INH Last administered on 11/08/16 09:50; Admin Dose 1 PUFF; Start 11/08/16 at 09:00 ; Stop 12/08/16 at 08:59 Simethicone (Mylicon Chew Tab) 80 mg QID PRN PO; Start 11/07/16 at 22:00; Stop 12/07/16 at 21:59 Tamsulosin HCl (Flomax Cap) 0.4 mg HS PO; Start 11/08/16 at 21:00; Stop at 20:59 Torsemide (Demadex Tab) 60 mg QAM PO Last administered on 11/08/16 11:26; Admin Dose 60 MG; Start 11/08/16 at 09:00; Stop 12/08/16 at 08:59 Vancomycin HCl (Consult) 1 ea UD PRN N/A; Start 11/07/16 at 23:45; Stop at 23:44 Vancomycin HCl/ Sodium Chloride (Vancomycin Inj/ Nss 500ml) 534 ml @ 200 mls/ hr Q24H IV; Start 11/08/16 at 22:00; Stop 11/15/16 at 21:59 Objective Vital Signs Date Time Temp Pulse Resp B/P Pulse Ox O2 Delivery O2 Flow Rate FiO2 11/08/16 08:04 Nasal Cannula 4.0 11/08/16 07:23 79 20 95 Nasal Cannula 4.0 11/08/16 07:18 37.1 80 18 99/63 95 Nasal Cannula 4.0 11/08/16 04:31 36.7 82 20 103/68 97 Nasal Cannula 4.0 11/08/16 04:00 Nasal Cannula 4.0 11/08/16 01:25 90 22 95 Nasal Cannula 4.0 11/08/16 00:00 Nasal Cannula 4.0 11/07/16 23:30 37.0 93 18 117/70 97 Nasal Cannula 4.0 11/07/16 23:30 37.0 93 18 117/70 97 Nasal Cannula 4.0 11/07/16 22:55 88 20 99/49 98 Nasal Cannula 2.0 11/07/16 21:52 97 22 119/75 95 Nasal Cannula 4.0 11/07/16 20:36 98 11/07/16 19:57 96 Nasal Cannula 4.0 11/07/16 19:57 37.9 104 20 121/85 96 Nasal Cannula 4.0 11/07/16 19:57 96 Nasal Cannula 4.0 Physical Exam Comments: nad, aox3, anicteric s1 s2 rrr, no murmurs appreciated basilar rhonchi, no wheezing abd soft nt nd +BS trace BLE edema Laboratory Results Last 24 Hours Test 11/07/16 19:30 11/07/16 20:29 11/07/16 21:01 11/08/16 05:19 White Blood Count 9.12 K/uL 9.28 K/uL Red Blood Count 4.63 M/uL 4.22 M/uL Hemoglobin 13.8 g/dL 12.0 g/dL Hematocrit 43.3 % 38.9 % Mean Corpuscular Volume 93.5 fL 92.2 fL Mean Corpuscular Hemoglobin 29.8 pg 28.4 pg Mean Corpuscular Hemoglobin Concent 31.9 g/dl 30.8 g/dl Platelet Count 235 K/uL 191 K/uL Mean Platelet Volume 10.7 fL 11.0 fL Neutrophils (%) (Auto) 80.4 % Lymphocytes (%) (Auto) 12.3 % Monocytes (%) (Auto) 6.0 % Eosinophils (%) (Auto) 0.7 % Basophils (%) (Auto) 0.1 % Neutrophils # (Auto) 7.33 K/uL Lymphocytes # (Auto) 1.12 K/uL Monocytes # (Auto) 0.55 K/uL Eosinophils # (Auto) 0.06 K/uL Basophils # (Auto) 0.01 K/uL RDW Standard Deviation 58.0 fL 57.4 fL RDW Coefficient of Variation 16.9 % 17.0 % Immature Granulocyte % (Auto) 0.5 % Immature Granulocyte # (Auto) 0.05 K/uL Nucleated RBC Absolute Count (auto) 0.06 K/uL 0.05 K/uL Nucleated Red Blood Cells % 0.7 % 0.5 % Prothrombin Time 9.6 SECONDS Prothromb Time International Ratio 0.9 Sodium Level 140 mmol/L 140 mmol/L Potassium Level 3.9 mmol/L 3.5 mmol/L Chloride Level 98 mmol/L 101 mmol/L Carbon Dioxide Level 34 mmol/L 33 mmol/L Anion Gap 9.0 mmol/L 16.0 mmol/L 6.0 mmol/L Blood Urea Nitrogen 26 mg/dl 27 mg/dl Creatinine 2.10 mg/dl 2.00 mg/dl Est Creatinine Clear Calc Drug Dose 31.4 ml/min 33.0 ml/min Estimated GFR () 32.1 34.0 Estimated GFR (Non- 27.7 29.3 BUN/Creatinine Ratio 12.1 13.6 Random Glucose 152 mg/dl 156 mg/dl Calcium Level 9.1 mg/dl 8.4 mg/dl Magnesium Level 2.4 mg/dl 2.5 mg/dl Total Bilirubin 0.5 mg/dl Direct Bilirubin < 0.1 mg/dl Aspartate Amino Transf (AST/SGOT) 13 U/L Alanine Aminotransferase (ALT/SGPT) 30 U/L Alkaline Phosphatase 101 U/L Total Creatine Kinase 189 U/L Creatine Kinase MB 2.9 ng/ml Creatine Kinase MB Ratio 1.5 Troponin I < 0.015 ng/ml Total Protein 7.7 gm/dl Albumin 3.7 gm/dl Bedside Hemoglobin 15.3 g/dl Bedside Hematocrit 45 % Bedside Sodium 141 mEq/L Bedside Potassium 3.7 mEq/L Bedside Chloride 97 mEq/L Bedside Total CO2 33 mEq/l Bedside Blood Urea Nitrogen 29 mg/dl Bedside Creatinine 1.9 mg/dl Bedside Glucose (other) 150 mg/dl Bedside Ionized Calcium (Danny) 1.10 mmol/l Bedside Lactic Acid Venous 1.99 mmol/L Test 11/08/16 07:44 Bedside Glucose 172 mg/dl IMPRESSION: 1. Significantly suboptimal examination without IV contrast. 2. There are no acute infectious or inflammatory findings in the abdomen or pelvis. 3. Suspect emphysema. 4. There are patchy airspace opacities at the right lung base. This could represent atelectasis, mild fibrosis, and/or an infectious/inflammatory pneumonitis. Clinical correlation will be required. 5. Advanced colonic diverticulosis without CT evidence of acute diverticulitis. 6. Moderate constipation. 7. Cholelithiasis. The gallbladder is mildly distended but otherwise normal in appearance. There is no convincing CT evidence of acute cholecystitis. 8. Additional findings as above. CHEST ONE VIEW PORTABLE HISTORY: fever COMPARISON: Chest 10/01/2016. Chest CT 08/17/2016. FINDINGS: Decrease in size in a 2.7 cm round left upper lobe airspace opacity. Bibasilar interstitial thickening, right greater than left. This has slightly progressed on the right.. No pleural effusions. No pneumothorax. The heart is stable in size. IMPRESSION: 1. Decrease in size in a 2.7 cm round left upper lobe airspace opacity. This favors a resolving pneumonia. An additional one month chest CT follow-up is recommended to ensure complete resolution. 2. Bibasilar interstitial thickening, right greater than left persists. This is slightly progressed on the right and could represent a developing pneumonia. Assessment and Plan 1. Fevers with n/v - ct abd as above, no e/o obstruction - evaluate for sepsis - bcx pending, ucx pending, UA +LE, pyuria, nitrite - cont vanco/zosyn 2. H/o aspirations - possible aspiration pneumonia/itis - swallow eval with recs - HOB elevated - vanco/zosyn 3. CKD - creat baseline appears to be 1.6-1.9 - close to baseline at the moment - avoid nephrotoxins including NSAIDs, non-emergent contrast studies, hypotension and volume depletion 4. Adrenal insufficiency - Hydrocortisone increased in view of acute illness - will maintain on florinef daily - monitor BPs 5. dvt ppx with hsq
[2016-11-08] MEDS: BISACODYL 5 MG TABEC PO SCH ×2 (11:36→21:01)
[2016-11-08] MEDS ORDERED: NURSING VERBAL MED ORDER ONE (12:30)
[2016-11-08] MEDS ORDERED: ASPERCREME EXT PRN (13:15)
--- NOTE | 2016-11-08 13:54 | Pharmacy Progress Note ---
Pharmacy Antibiotic Consult Date of Service: Nov 08, 2016. Pharmacy Dosing Scope Pharmacy is consulted to initiate vancomycin, levaquin, and zosyn IV dosing therapy, order appropriate labs and adjust drug dose/frequency. Subjective The patient is a 86 year old male admitted on Nov 07, 2016 at 21:51. Objective Height (Feet): 6 Height (Inches): 1.00 Weight (Kilograms): 100.000 Lab Results (24hrs): Laboratory Tests Test 11/07/16 19:30 11/08/16 05:19 BUN/Creatinine Ratio 12.1 13.6 Blood Urea Nitrogen 26 mg/dl 27 mg/dl Creatinine 2.10 mg/dl 2.00 mg/dl White Blood Count 9.12 K/uL 9.28 K/uL Red Blood Count 4.63 M/uL Hemoglobin 13.8 g/dL Hematocrit 43.3 % Mean Corpuscular Volume 93.5 fL Mean Corpuscular Hemoglobin 29.8 pg Mean Corpuscular Hemoglobin Concent 31.9 g/dl Platelet Count 235 K/uL Mean Platelet Volume 10.7 fL Neutrophils (%) (Auto) 80.4 % Lymphocytes (%) (Auto) 12.3 % Monocytes (%) (Auto) 6.0 % Eosinophils (%) (Auto) 0.7 % Basophils (%) (Auto) 0.1 % Neutrophils # (Auto) 7.33 K/uL Lymphocytes # (Auto) 1.12 K/uL Monocytes # (Auto) 0.55 K/uL Eosinophils # (Auto) 0.06 K/uL Basophils # (Auto) 0.01 K/uL Micro Results: Item Value Date Time MRSA DNA Surveillance Screen - Final Complete 11/08/16 0000 Nasal Specimen Positive for MRSA by DNA Probe Blood Culture Received 11/07/162054 Blood Pending Blood Culture Received 11/07/162044 Blood Pending Urine Culture Received 11/07/16 0000 Urine , Clean Catch Pending Assessment & Plan Patient started on vancomycin, zosyn and levaquin for possible pneumonia. BC x 2 and UC are pending. Of note, hx recent hospital stay for pneumonia. Vancomycin: * Received LD of vancomycin 2500 (25 mg/kg) x 1 this am * Will start MD of 1700 mg (~17 mg/kg) iv q 24 hrs to achieve an estimated trough ~15-20 mcg/ml (goal for PNA) * Dosing is based upon previous pharmacokinetic data from 10/01 admission; kinetics today: t1/2~22 hrs, ke~0.032, CrCl 33 ml/min * Anticipate Scr to improve in next few days back to baseline (baseline Scr ~ 1.6 mg/dL) * Will plan to obtain a trough prior to the 2200 dose on 11/11 to ensure therapeutic Zosyn: * 3.375 gm iv q 8 hrs (appropriate for CrCl >20 ml/min) no changes necessary Levaquin: * 750 mg iv q 48 hrs (appropriate for CrCl 20-49 ml/min) no changes necessary Pharmacy will continue to follow and will adjust dose/frequency as necessary. Thank you
[2016-11-08] MEDS ORDERED: INSULIN ASPART 100 UNITS/ML 3 ML PEN SC ONE (17:15)
[2016-11-08] MEDS: DUTASTERIDE 0.5 MG CAP PO SCH (20:43)
[2016-11-08] MEDS: TAMSULOSIN HCL 0.4 MG CAP PO SCH (20:45)
[2016-11-08] MEDS: ATORVASTATIN 20 MG TAB PO SCH (20:51)
[2016-11-08] MEDS: FAMOTIDINE 20 MG TAB PO SCH (20:52)
[2016-11-08] MEDS: INSULIN ASPART 100 UNITS/ML 3 ML PEN SC SCH (20:59)
[2016-11-08] MEDS ORDERED: INSULIN GLARGINE SOLOSTAR 100 UNITS/ML 3 ML PEN SC SCH (21:00)
[2016-11-08] MEDS: POLYETHYLENE (MIRALAX) 17 GM PACK PO PRN (21:01)
[2016-11-08] MEDS ORDERED: VANCOMYCIN INJ 1,700 MG in SODIUM CHLORIDE 0.9% 500ML 500 ML IV SCH (22:00)
[2016-11-08] MEDS ORDERED: HEPARIN SOD 5000 UNIT/0.5 ML CARP SQ SCH (22:00)
[2016-11-09] VITALS (12 sets, daily range): BP systolic 86–108; BP diastolic 55–68; PULSE 56–77; TEMP 36.2–36.5; O2SAT 92–98
[2016-11-09] MEDS: ALBUT/IPRATROP 3MG/0.5MG NEB 3 ML VIAL INH SCH ×4 (01:31→19:07)
[2016-11-09] MEDS: HYDROCORTISONE IV 50 MG in SYRINGE 0 ML IV SCH ×2 (01:45→14:25)
[2016-11-09] MEDS: PIPERACILL/TAZOBAC IV 3.375 GM in DEXTROSE 5% 100ML 100 ML IV SCH ×3 (03:49→19:42)
[2016-11-09] MEDS: HEPARIN SOD 5000 UNIT/0.5 ML CARP SQ SCH ×3 (05:31→21:37)
[2016-11-09 07:48] LABS: BASO % 0.2 %; BASO ABS # 0.01 K/uL (0-0.2); COMPLETE YES; EOS % 0.3 %; HEMATOCRIT 34.3 % (42-52); IG% 0.3 %; LYMPH % 8.8 %; LYMPH ABS # 0.52 K/uL (1.2-3.4); MEAN CELL VOLUME 92.2 fL (80-100); MEAN CORPUSCULAR HGB CONC 30.3 g/dl (32-36); MONO % 6.3 %; NEUT % 84.1 %; PLATELET COUNT 172 K/uL (130-400); RED BLOOD COUNT 3.72 M/uL (4.7-6.1); WHITE BLOOD COUNT 5.88 K/uL (4.8-10.8)
[2016-11-09 08:14] LABS: BUN/CREATININE RATIO 12.1 (10-20); CREATININE 2.1 mg/dl (0.60-1.40); MAGNESIUM 2.5 mg/dl (1.8-2.4); PHOSPHORUS 3.2 mg/dl (2.5-4.9); POTASSIUM 3.1 mmol/L (3.5-5.1)
[2016-11-09] MEDS: OXYCODONE HCL 15 MG TABCR (OXYCONTIN) PO SCH ×2 (08:30→21:39)
[2016-11-09] MEDS: POLYETHYLENE (MIRALAX) 17 GM PACK PO PRN (08:33)
[2016-11-09] MEDS: FLUTICASONE PROPIONATE NA SPR 16 GM BTL SCH (08:34)
[2016-11-09] MEDS: FLUTICASONE/SALMETEROL 250/50 (ADVAIR) 14 PUFF/1 INHALER INH SCH ×2 (08:34→21:18)
[2016-11-09] MEDS: DOCUSATE SODIUM 100 MG CAP PO SCH ×2 (08:35→21:21)
[2016-11-09] MEDS: TORSEMIDE 20 MG TAB PO SCH (08:37)
[2016-11-09] MEDS: ASPIRIN 81 MG ECTAB PO SCH (08:38)
[2016-11-09] MEDS: GABAPENTIN 600 MG TAB PO SCH ×3 (08:39→21:22)
[2016-11-09] MEDS: BISACODYL 5 MG TABEC PO SCH ×2 (08:39→22:09)
[2016-11-09] MEDS: GUAIFENESIN 600 MG TABCR PO SCH ×2 (08:40→21:22)
[2016-11-09] MEDS: CALCIUM POLYCARBOPHIL 1 TAB PO SCH (08:40)
[2016-11-09] MEDS: POTASSIUM CHLORIDE 20 MEQ TABCR PO SCH ×3 (08:41→21:24)
[2016-11-09] MEDS: CLOPIDOGREL BISULFATE 75 MG TAB PO SCH (08:41)
[2016-11-09] MEDS: PANTOprazole SOD 40 MG TAB PO SCH (08:43)
[2016-11-09] MEDS: FLUDROCORTISONE ACETATE 0.1 MG TAB PO SCH (08:43)
[2016-11-09] MEDS: MAGNESIUM OXIDE 400 MG TAB PO SCH ×2 (08:44→21:24)
[2016-11-09] MEDS: LIDODERM (LIDOCAINE) PATCH 5% TD SCH (08:47)
[2016-11-09] MEDS: ARTIFICIAL TEARS OP SOLN OPB SCH ×4 (09:00→21:19)
[2016-11-09] MEDS: INSULIN ASPART 100 UNITS/ML 3 ML PEN SC SCH ×4 (09:06→21:38)
[2016-11-09] MEDS ORDERED: POTASSIUM CHLORIDE 20 MEQ TABCR PO ONE (12:00)
--- NOTE | 2016-11-09 12:14 | Progress Note ---
Subjective Date of Service: Nov 09, 2016. Subjective Pt evaluation today including: conversation w/ patient, physical exam, lab review, review of studies, review of inpatient medication list He is more awake and responsive to me today. Per RN, he reported dizziness before having BM this morning. He feels tired today. Reports he has had an indwelling catheter for " a while" now. Problem List Medical Problems: (1) Acute on chronic renal failure Status: Acute (2) Confusion Status: Acute (3) Fever Status: Acute (4) Hypoglycemia Status: Acute (5) Hypoxia Status: Acute (6) Influenza A Status: Acute (7) Malfunction of Gomez catheter Status: Acute (8) PNA (pneumonia) Status: Acute (9) Reactive airway disease Status: Acute (10) Sepsis Status: Acute (11) UTI (lower urinary tract infection) Status: Acute Review of Systems All Other Systems: Reviewed and Negative Medications Acetaminophen (Tylenol Tab) 650 mg Q4H PRN PO Last administered on 11/08/16 23:26; Admin Dose 650 MG; Start 11/07/16 at 22:00; Stop 12/07/16 at 21:59 Al Hydrox/Mg Hydrox/Simethicone (Maalox Max Susp) 15 ml Q4H PRN PO; Start 11/07 at 22:00; Stop 12/07/16 at 21:59 Albuterol Sulfate (Ventolin 0.083% 2.5MG/3ML Neb) 2.5 mg Q4H PRN INH; Start at 21:45; Stop 12/07/16 at 21:44 Albuterol/ Ipratropium (Duoneb) 3 ml Q6R INH Last administered on 11/09/16 07: 31; Admin Dose 3 ML; Start 11/08/16 at 03:00; Stop 12/08/16 at 02:59 Artificial Tears (Artificial Tears) 1 drops BID OPB Last administered on 09:00; Admin Dose 1 DROPS; Start 11/08/16 at 09:00; Stop 12/08/16 at 08:59 Aspirin (Ecotrin Tab) 81 mg DAILY PO Last administered on 11/09/16 08:38; Admin Dose 81 MG; Start 11/08/16 at 09:00; Stop 12/08/16 at 08:59 Atenolol (Tenormin Tab) 12.5 mg DAILY PO Last administered on 11/09/16 08:45; Admin Dose 12.5 MG; Start 11/08/16 at 09:00; Stop 12/08/16 at 08:59 Atorvastatin Calcium (Lipitor Tab) 20 mg HS PO Last administered on 11/08/16 20 :51; Admin Dose 20 MG; Start 11/08/16 at 21:00; Stop 12/08/16 at 20:59 Bisacodyl (Dulcolax Tab) 5 mg BID PO Last administered on 11/09/16 08:39; Admin Dose 5 MG; Start 11/08/16 at 09:00; Stop 12/08/16 at 08:59 Calcium Polycarbophil (Fibercon Tab) 1 tab DAILY PO Last administered on 08:40; Admin Dose 1 TAB; Start 11/08/16 at 09:00; Stop 12/08/16 at 08:59 Clopidogrel Bisulfate (plAVix TAB) 75 mg DAILY PO Last administered on 08:41; Admin Dose 75 MG; Start 11/08/16 at 09:00; Stop 12/08/16 at 08:59 Dextrose (Dextrose 50% 50ML Syringe) 25-50ML OF 50% DW IV FOR... UD PRN IV; Start 11/08/16 at 02:00; Stop 12/08/16 at 01:59 Docusate Sodium (coLACE CAP) 100 mg BID PO Last administered on 11/09/16 08:35 ; Admin Dose 100 MG; Start 11/08/16 at 09:00; Stop 12/08/16 at 08:59 Dutasteride (Avodart Cap) 0.5 mg PM PO Last administered on 11/08/16 20:43; Admin Dose 0.5 MG; Start 11/08/16 at 21:00; Stop 12/08/16 at 20:59 Famotidine (Pepcid Tab) 20 mg HS PO Last administered on 11/08/16 20:52; Admin Dose 20 MG; Start 11/08/16 at 21:00; Stop 12/08/16 at 20:59 Fludrocortisone Acetate (Florinef Tab) 0.1 mg DAILY PO Last administered on 11/09 08:43; Admin Dose 0.1 MG; Start 11/08/16 at 09:00; Stop 12/08/16 at 08:59 Fluticasone Propionate (Flonase Nasal [place]) 2 sprays DAILY NA Last administered on 11/09/16 08:34; Admin Dose 2 SPRAYS; Start 11/08/16 at 09:00; Stop 12/08/16 at 08:59 Gabapentin (Neurontin Tab) 600 mg TID PO Last administered on 11/09/16 08:39; Admin Dose 600 MG; Start 11/08/16 at 09:00; Stop 12/08/16 at 08:59 Glucagon (Glucagon Inj) 1 mg UD PRN SQ; Start 11/08/16 at 02:00; Stop 12/08/16 at 01:59 Glucose (Glucose 40% Gel) 15-30 GRAMS 15 GRAMS... UD PRN PO; Start 11/08/16 at 02:00; Stop 12/08/16 at 01:59 Glucose (Glucose Chew Tab) 4-8 Tablets 4 Tabl... UD PRN PO; Start 11/08/16 at 02:00; Stop 12/08/16 at 01:59 Guaifenesin (Mucinex Contr Rel Tab) 1,200 mg Q12H PO Last administered on 08:40; Admin Dose 1,200 MG; Start 11/08/16 at 09:00; Stop 12/08/16 at 08:59 Heparin Sodium (Porcine) (Heparin Sq 5000 Unit/0.5ml) 5,000 unit Q8H SQ Last administered on 11/09/16 05:31; Admin Dose 5,000 UNIT; Start 11/08/16 at 06:00 ; Stop 12/08/16 at 05:59 Hydrocortisone Sodium Succinate 50 mg/Syringe 1 ml @ 4 mls/min Q12H IV Last administered on 11/09/16 01:45; Admin Dose 4 MLS/MIN; Start 11/08/16 at 02:00; Stop 12/08/16 at 01:59 Insulin Aspart (novoLOG ASPART) SLIDING SCALE G... ACHS SC Last administered on 11/09/16 12:51; Admin Dose 6 UNITS; Start 11/08/16 at 21:00; Stop 12/08/16 at 20:59 Insulin Glargine (Lantus Solostar Pen) 45 unit QPM SC Last administered on 21:00; Admin Dose 45 UNIT; Start 11/08/16 at 21:00; Stop 12/08/16 at 20:59 Lactobacillus Acidophilus (Floranex Tab) 4 tab TIDM PO; Start 11/09/16 at 17:00 ; Stop 12/09/16 at 16:59 Levofloxacin (Consult) 1 ea UD PRN N/A; Start 11/07/16 at 23:45; Stop 12/07/16 at 23:44 Levofloxacin 750 mg/Prmx 150 ml @ 100 mls/hr Q48H IV Last administered on 01:22; Admin Dose 100 MLS/HR; Start 11/08/16 at 02:00; Stop 11/15/16 at 01: 59 Lidocaine (Lidoderm Patch 5%) 1 patch QAM TD Last administered on 11/09/16 08: 47; Admin Dose 1 PATCH; Start 11/08/16 at 09:00; Stop 12/08/16 at 08:59 Lorazepam (Ativan Tab) 0.5 mg Q4 PRN PO; Start 11/07/16 at 22:00; Stop at 21:59 Magnesium Hydroxide (Milk Of Magnesia Susp) 30 ml Q12H PRN PO; Start 11/07/16 at 22:00; Stop 12/07/16 at 21:59 Magnesium Oxide (Mag-Ox Tab) 400 mg BID PO Last administered on 11/09/16 08:44 ; Admin Dose 400 MG; Start 11/08/16 at 09:00; Stop 12/08/16 at 08:59 Miscellaneous (Remove Lidoderm Patch) 1 ea DAILY@21 N/A Last administered on 20:43; Admin Dose 1 EA; Start 11/08/16 at 21:00; Stop 12/08/16 at 20:59 Morphine Sulfate (MoRPHine SULFATE INJ) 2 mg Q30M PRN IV; Start 11/07/16 at 22: 00; Stop 11/21/16 at 21:59 Nitroglycerin (Nitrostat Tab) 0.4 mg UD PRN SL; Start 11/07/16 at 22:00; Stop 12/07/16 at 21:59 Non-Formulary Medication 1 ea 1 ea QID PRN EXT Last administered on 11/09/16 10:39; Admin Dose 1 EA; Start 11/08/16 at 13:15; Stop 12/08/16 at 13:14 Ondansetron HCl (Zofran Inj) 4 mg Q6H PRN IV; Start 11/07/16 at 22:00; Stop at 21:59 Oxycodone HCl (Oxycontin Tab) 15 mg Q12H PO Last administered on 11/09/16 08:30 ; Admin Dose 15 MG; Start 11/08/16 at 09:00; Stop 11/22/16 at 08:59 Pantoprazole Sodium (Protonix Tab) 40 mg DAILY PO Last administered on 08:43; Admin Dose 40 MG; Start 11/08/16 at 09:00; Stop 12/08/16 at 08:59 Piperacillin Sod/ Tazobactam Sod (Consult) 1 ea UD PRN N/A; Start 11/07/16 at 23:45; Stop 12/07/16 at 23:44 Piperacillin Sod/ Tazobactam Sod/ Dextrose (Zosyn Iv/D5 100ml) 115 ml @ 28.75 mls/ hr Q8H IV Last administered on 11/09/16 12:51; Admin Dose 28.75 MLS/HR; Start 11/08/16 at 04:00; Stop 11/15/16 at 03:59 Polyethylene 17 gm 17 gm DAILY PRN PO Last administered on 11/09/16 08:33; Admin Dose 17 GM; Start 11/07/16 at 22:00; Stop 12/07/16 at 21:59 Potassium Chloride (Klor-Con Tab) 40 meq TID PO Last administered on 11/09/16 08:41; Admin Dose 40 MEQ; Start 11/08/16 at 09:00; Stop 12/08/16 at 08:59 Salmeterol Xinafoate/ Fluticasone (Advair Diskus 250/50 Inh) 1 puff BID INH Last administered on 11/09/16 08:34; Admin Dose 1 PUFF; Start 11/08/16 at 09:00 ; Stop 12/08/16 at 08:59 Simethicone (Mylicon Chew Tab) 80 mg QID PRN PO; Start 11/07/16 at 22:00; Stop 12/07/16 at 21:59 Tamsulosin HCl (Flomax Cap) 0.4 mg HS PO Last administered on 11/08/16 20:45; Admin Dose 0.4 MG; Start 11/08/16 at 21:00; Stop 12/08/16 at 20:59 Torsemide (Demadex Tab) 60 mg QAM PO Last administered on 11/09/16 08:37; Admin Dose 60 MG; Start 11/08/16 at 09:00; Stop 12/08/16 at 08:59 Vancomycin HCl (Consult) 1 ea UD PRN N/A; Start 11/07/16 at 23:45; Stop at 23:44 Vancomycin HCl/ Sodium Chloride (Vancomycin Inj/ Nss 500ml) 534 ml @ 200 mls/ hr Q24H IV Last administered on 11/08/16 20:42; Admin Dose 200 MLS/HR; Start at 22:00; Stop 11/15/16 at 21:59 Objective Vital Signs Date Time Temp Pulse Resp B/P Pulse Ox O2 Delivery O2 Flow Rate FiO2 11/09/16 11:35 36.3 64 16 107/68 96 11/09/16 09:15 Nasal Cannula 2.0 11/09/16 07:45 56 104/64 96 Nasal Cannula 11/09/16 07:31 59 20 94 Nasal Cannula 2.0 11/09/16 07:16 36.2 59 16 86/55 94 93/56 11/09/16 04:00 36.3 61 18 99/61 92 Nasal Cannula 2.0 11/09/16 04:00 Nasal Cannula 2.0 11/09/16 01:31 59 20 94 Nasal Cannula 4.0 11/09/16 00:13 36.3 63 18 108/68 98 2.0 11/09/16 00:00 Nasal Cannula 2.0 11/08/16 23:14 102/65 11/08/16 23:04 36.6 75 20 91/51 95 Nasal Cannula 2.0 11/08/16 20:01 36.3 68 18 91/55 96 4.0 11/08/16 20:00 Nasal Cannula 2.0 11/08/16 19:24 67 20 94 Nasal Cannula 4.0 11/08/16 16:23 81 20 94 Nasal Cannula 4.0 11/08/16 16:00 Nasal Cannula 2.0 11/08/16 15:13 36.4 64 16 109/67 92 Nasal Cannula 4.0 Physical Exam Comments: nad, aox3 anicteric s1 s2 rrr, no murmurs appreciated basilar rales, +rhonchi, no wheezing abd soft nt nd +BS trace BLE edema Laboratory Results Last 24 Hours Test 11/08/16 16:22 11/08/16 20:44 11/09/16 06:33 11/09/16 11:39 Bedside Glucose 266 mg/dl 273 mg/dl 288 mg/dl White Blood Count 5.88 K/uL Red Blood Count 3.72 M/uL Hemoglobin 10.4 g/dL Hematocrit 34.3 % Mean Corpuscular Volume 92.2 fL Mean Corpuscular Hemoglobin 28.0 pg Mean Corpuscular Hemoglobin Concent 30.3 g/dl Platelet Count 172 K/uL Mean Platelet Volume 10.0 fL Neutrophils (%) (Auto) 84.1 % Lymphocytes (%) (Auto) 8.8 % Monocytes (%) (Auto) 6.3 % Eosinophils (%) (Auto) 0.3 % Basophils (%) (Auto) 0.2 % Neutrophils # (Auto) 4.94 K/uL Lymphocytes # (Auto) 0.52 K/uL Monocytes # (Auto) 0.37 K/uL Eosinophils # (Auto) 0.02 K/uL Basophils # (Auto) 0.01 K/uL RDW Standard Deviation 57.4 fL RDW Coefficient of Variation 17.0 % Immature Granulocyte % (Auto) 0.3 % Immature Granulocyte # (Auto) 0.02 K/uL Sodium Level 141 mmol/L Potassium Level 3.1 mmol/L Chloride Level 100 mmol/L Carbon Dioxide Level 31 mmol/L Anion Gap 10.0 mmol/L Blood Urea Nitrogen 26 mg/dl Creatinine 2.10 mg/dl Est Creatinine Clear Calc Drug Dose 31.3 ml/min Estimated GFR () 32.1 Estimated GFR (Non- 27.7 BUN/Creatinine Ratio 12.1 Random Glucose 213 mg/dl Calcium Level 9.0 mg/dl Phosphorus Level 3.2 mg/dl Magnesium Level 2.5 mg/dl Assessment and Plan 1. Fevers with n/v - ct abd as above, no e/o obstruction - chronic indwelling gomez for urinary retention - Pseudomas UTI +/- pneumonia HCAP vs aspiration (h/o aspirations, also vomiting ) - h/o c diff as well - will get ID consult for abx guidance 2. H/o aspirations - possible aspiration pneumonia/itis - swallow eval with recs - HOB elevated - vanco/zosyn 3. CKD - creat baseline appears to be 1.6-1.9 - close to baseline at the moment - avoid nephrotoxins including NSAIDs, non-emergent contrast studies, hypotension and volume depletion 4. Adrenal insufficiency - Hydrocortisone increased in view of acute illness - will maintain on florinef daily - monitor BPs 5. dvt ppx with hsq
--- NOTE | 2016-11-09 14:50 | Progress Note ---
Progress Note Date of Service Nov 09, 2016. Progress Note ID Consult Dictated #[id number] A/P: 1. jason assoc uti - pseudomonas -continue zosyn for now, upon d/c can change to po cipro 250mg po bid to complete 7 day course -will stop levaquin and vanco -thank you
[2016-11-09] MEDS ORDERED: PHARMACY GLYCEMIC MGMT CONSULT PRN (15:05)
--- NOTE | 2016-11-09 15:18 | INFECT. DISEASE CONSULTATION ---
DATE OF CONSULTATION: 11/09/2016 REQUESTING PHYSICIAN: Dr. Joey Gross. HISTORY OF PRESENT ILLNESS: This is an 86-year-old gentleman who was admitted from his local assisted living facility with fever and rigors. He also was complaining of some shortness of breath at that time. He was recently admitted and treated for aspiration pneumonia. He did complete a course of antibiotics. He did have a temperature of 37.9 upon arrival to the hospital, but otherwise he has been afebrile. He was started on multiple broad-spectrum antibiotics including vancomycin, Zosyn, high dose Levaquin and IV steroids. On my examination, he is out of bed to chair with his . He is receiving a nebulizer treatment. He states overall he is feeling significantly better. He currently denies any coughing or shortness of breath. He denies any chest pain. He states his fevers and chills have resolved. He does have a history of chronic indwelling Ball catheter. He states this was changed last on the 22 of October and he is due for a change on November 21 as well. He has had multiple urine cultures in the recent past growing pseudomonas. Most recently he had a positive urine culture on the 17 of August, the 01 of October and again on the 07 of November. This was intermediate to Levaquin, but sensitive to Zosyn. Blood cultures were also obtained upon arrival to the hospital and those are no growth to date. Sputum culture was obtained on the and is showing normal ale only. He did have an x-ray in the Emergency Room which showed resolving pneumonia of the right upper lobe when compared to his chest x-ray in September. CAT scan abdomen and pelvis was limited but negative for any pathology. Overall, he feels significantly better. He denies any nausea, vomiting, diarrhea or abdominal pain. He does reportedly have a history of recent C. diff; however, there is no positive C. diff specimen on record here. He is not having any diarrhea at this time. He does have an elevated creatinine of 2.1. His white blood cell count is 5.8. A urine culture in the ER, had 10-30 WBCs and no bacteria were identified, however, there were budding yeast. All remaining review of systems are reviewed and are negative. PAST MEDICAL HISTORY: Significant for chronic anemia, asthma, COPD, coronary artery disease, CVA, hypertension, high cholesterol, hyperparathyroidism, peripheral vascular disease. PAST SURGICAL HISTORY: Significant for coronary stenting. FAMILY HISTORY: Noncontributory. SOCIAL HISTORY: Significant for history of tobacco use. He denies any alcohol or drug use. He is and lives with his in a local assisted living facility. He denies any recent sick contacts. ALLERGIES: He has no known drug allergies. CURRENT MEDICATIONS: Include probiotic, Lipitor, Pepcid, Lantus, Flomax, Lidoderm patch, avodart, Ecotrin, atenolol, Dulcolax, calcium, Plavix, Colace, Florinef, Advair, Flonase, Neurontin, Mucinex, magnesium, OxyContin, potassium, torsemide, Protonix, subQ heparin, Zosyn, hydrocortisone, levofloxacin, vancomycin, Ativan, Tylenol, Maalox, milk of magnesia, Zofran, morphine, MiraLax and albuterol. PHYSICAL EXAMINATION: VITAL SIGNS: He is currently afebrile, pulse is 59, respiratory rate is 20, blood pressure is 107/68, oxygen saturation is 95% to 96% on 2 liters. GENERAL: He is awake, alert and oriented x3. He is out of bed to chair. He is receiving a nebulizer treatment on my examination. HEENT: Mucous membranes are moist. HEART: Regular. LUNGS: Clear bilaterally with decreased breath sounds. There is no wheezing or rhonchi. ABDOMEN: Soft and nontender, nondistended. A Ball catheter is in place, draining urine. EXTREMITIES: There is no lower extremity edema bilaterally. SKIN: Without rash. LABORATORY STUDIES: CBC today reveals a white blood cell count of 5.8, hemoglobin 10.4, platelets are 172. Chemistry panel today reveals a sodium of 141, potassium 3.1, chloride 100, bicarbonate 31, BUN is 26, creatinine 2.1, glucose is 288. LFTs are within normal limits on admission to the hospital. Again urinalysis from the ER showed moderate leukocyte esterase with 10-30 WBCs and no bacteria. There were budding yeast. He denies having his Ball changed in the Emergency Room. A urine culture from the is growing pseudomonas, which is intermediate to aztreonam and Levaquin, and otherwise sensitive. Blood cultures from the are no growth to date x2 sets. A sputum culture from the has normal ale only. Imaging is as reviewed above. ASSESSMENT AND PLAN: Ball associated urinary tract infection. Question of colonization with pseudomonas versus urinary tract infection as he has had multiple cultures growing the same. He will be continued on a course of Zosyn. He has completed 3 days of antibiotics at this time. I would recommend completion of 7 days of antibiotics. Certainly this could be changed to renally dose to oral Cipro 250 mg every 12 hours upon discharge as his states he is unable to receive IV medications at his assisted living facility. I do not see any evidence of worsening pneumonia and will discontinue the vancomycin and levofloxacin. Thank you for this consultation.
--- NOTE | 2016-11-09 15:29 | Pharmacy Progress Note ---
Glycemic Control Intl Consult Date of Service Nov 09, 2016. Scope Glycemic Pharmacist consulted by Dr Wu on 11/09/2016 for glycemic control and to write orders per [facility] inpatient glycemic control protocol Objective Weight (Kilograms): 99.600 Accuchecks BSG (last 24hrs): Test 11/08/16 16:22 11/08/16 20:44 11/09/16 06:33 11/09/16 11:39 Bedside Glucose 266 mg/dl (70-99) 273 mg/dl (70-99) 288 mg/dl (70-99) Random Glucose 213 mg/dl (70-99) Laboratory Data (last 24hrs) Test 11/09/16 06:33 Anion Gap 10.0 mmol/L BUN/Creatinine Ratio 12.1 Blood Urea Nitrogen 26 mg/dl Creatinine 2.10 mg/dl Potassium Level 3.1 mmol/L Sodium Level 141 mmol/L White Blood Count 5.88 K/uL Red Blood Count 3.72 M/uL Hemoglobin 10.4 g/dL Hematocrit 34.3 % Mean Corpuscular Volume 92.2 fL Mean Corpuscular Hemoglobin 28.0 pg Mean Corpuscular Hemoglobin Concent 30.3 g/dl Platelet Count 172 K/uL Mean Platelet Volume 10.0 fL Neutrophils (%) (Auto) 84.1 % Lymphocytes (%) (Auto) 8.8 % Monocytes (%) (Auto) 6.3 % Eosinophils (%) (Auto) 0.3 % Basophils (%) (Auto) 0.2 % Neutrophils # (Auto) 4.94 K/uL Lymphocytes # (Auto) 0.52 K/uL Monocytes # (Auto) 0.37 K/uL Eosinophils # (Auto) 0.02 K/uL Basophils # (Auto) 0.01 K/uL Recent Pertinent Medications Outpatient Anti-diabetic Regimen: * Lantus 45 units qPM * A1c = 6.8 % 01/23/2016 (A1C ordered) The patient is currently receiving: * Basal insulin: Lantus 45 units every 24 hours in the evening * Correctional Insulin: Novolog Correction per scale ACHS Goal Range: Low 120 mg/dL - High 180 mg/dL Correction Factor: 45 mg/dL/unit * Prandial insulin: Per carb ratio of 1 unit per 15 grams CHO consumed Risk Factors for Insulin Resistance: * Steroids: hydrocortisone 50 mg IV q12 * Infection: UTI vs PNA (currently on Zosyn) * Diet: type 2 diabetic diet Assessment & Plan ASSESSMENT: * ADA & AACE recommend a goal blood sugar range 140-180 mg/dl for the majority of critically ill & non-critically ill patients. However, more stringent targets may be selected in individual cases. * Mr Enciso was admitted on 11/07/16 with a UTI vs Pneumonia; he has unknown glycemic control. The patient did not receive his Lantus on 11/07/16. He was started on Solu-Cortef 50 mg IV q12 hours on 11/08/2016 and his blood sugar rapidly increased from 172 to 273 mg/dL (this was due to a combo of missing his Lantus dose and the Solu-Cortef). * I started a ranged Lantus this evening because for steroid induced hyperglycemia, the goal split of basal/bolus is 30/70. Therefore, the correctional insulin was tightened to weight based with a stress of 2 plus overnight accuchecks. Ranged Lantus was started because I am unsure if the patient's blood sugar will continue to climb. I wanted a safety net in case the patient began to trend down. Then there would not be as much basal insulin in the patient. PLAN FOR INPATIENT GLYCEMIC CONTROL: * Decreasing Lantus to 35-45 (45 units if blood sugar greater than or equal to 250 mg/dL) units SQ HS * TIGHTENING correction factor to 25 mg/dl/unit * TIGHTENING carb ratio to 1 unit per 25 grams CHO consumed * Continuing goal range to Low 140 mg/dL - High 180 mg/dL * Please note that the plan above was derived based on current level of insulin resistance and hospital stress. These recommendations are appropriate for inpatient admission only. Plan of care upon discharge will need to be reassessed to avoid potential outpatient hypo/hyperglycemia. Thank you.
[2016-11-09] MEDS: LACTOBACILLUS ACIDOPHILUS (FLORANEX) TAB PO SCH (17:55)
[2016-11-09] MEDS ORDERED: INSULIN GLARGINE SOLOSTAR 100 UNITS/ML 3 ML PEN SC SCH (21:00)
[2016-11-09] MEDS: ATORVASTATIN 20 MG TAB PO SCH (21:21)
[2016-11-09] MEDS: TAMSULOSIN HCL 0.4 MG CAP PO SCH (21:24)
[2016-11-09] MEDS: FAMOTIDINE 20 MG TAB PO SCH (21:24)
[2016-11-09] MEDS: DUTASTERIDE 0.5 MG CAP PO SCH (21:25)
[2016-11-10] VITALS (7 sets, daily range): BP systolic 94–103; BP diastolic 52–61; PULSE 63–77; TEMP 36.3–36.6; O2SAT 2–98
[2016-11-10] MEDS: INSULIN ASPART 100 UNITS/ML 3 ML PEN SC SCH ×4 (00:20→12:07)
[2016-11-10] MEDS: HYDROCORTISONE IV 50 MG in SYRINGE 0 ML IV SCH (02:16)
[2016-11-10] MEDS: ALBUT/IPRATROP 3MG/0.5MG NEB 3 ML VIAL INH SCH ×2 (02:17→08:03)
[2016-11-10] MEDS: PIPERACILL/TAZOBAC IV 3.375 GM in DEXTROSE 5% 100ML 100 ML IV SCH ×2 (03:48→12:03)
[2016-11-10] MEDS: HEPARIN SOD 5000 UNIT/0.5 ML CARP SQ SCH (05:51)
[2016-11-10] MEDS ORDERED: FLUD0.1T PO (07:47)
[2016-11-10] MEDS ORDERED: LCTX PO (07:47)
[2016-11-10] MEDS ORDERED: CIPR1TAB11 PO (07:48)
[2016-11-10 07:55] LABS: BASO % 0.2 %; BASO ABS # 0.01 K/uL (0-0.2); COMPLETE YES; EOS % 0.6 %; HEMATOCRIT 33.8 % (42-52); IG% 0.2 %; LYMPH % 9.8 %; LYMPH ABS # 0.51 K/uL (1.2-3.4); MEAN CELL VOLUME 91.6 fL (80-100); MEAN CORPUSCULAR HEMOGLOBIN 27.4 pg (25-34); MEAN CORPUSCULAR HGB CONC 29.9 g/dl (32-36); MEAN PLATELET VOLUME 10.1 fL (7.4-10.4); MONO % 6.3 %; NEUT % 82.9 %; PLATELET COUNT 183 K/uL (130-400); RED BLOOD COUNT 3.69 M/uL (4.7-6.1); WHITE BLOOD COUNT 5.22 K/uL (4.8-10.8)
[2016-11-10] MEDS: FLUTICASONE/SALMETEROL 250/50 (ADVAIR) 14 PUFF/1 INHALER INH SCH (08:16)
[2016-11-10] MEDS: LACTOBACILLUS ACIDOPHILUS (FLORANEX) TAB PO SCH ×2 (08:16→12:03)
[2016-11-10] MEDS: ARTIFICIAL TEARS OP SOLN OPB SCH ×2 (08:17)
[2016-11-10] MEDS: FLUTICASONE PROPIONATE NA SPR 16 GM BTL SCH (08:17)
[2016-11-10] MEDS: DOCUSATE SODIUM 100 MG CAP PO SCH (08:17)
[2016-11-10] MEDS: GUAIFENESIN 600 MG TABCR PO SCH (08:17)
[2016-11-10] MEDS: CLOPIDOGREL BISULFATE 75 MG TAB PO SCH (08:18)
[2016-11-10] MEDS: OXYCODONE HCL 15 MG TABCR (OXYCONTIN) PO SCH (08:18)
[2016-11-10] MEDS: GABAPENTIN 600 MG TAB PO SCH ×2 (08:18→14:09)
[2016-11-10] MEDS: POTASSIUM CHLORIDE 20 MEQ TABCR PO SCH ×2 (08:18→14:09)
[2016-11-10] MEDS: PANTOprazole SOD 40 MG TAB PO SCH (08:19)
[2016-11-10] MEDS: LIDODERM (LIDOCAINE) PATCH 5% TD SCH (08:19)
[2016-11-10] MEDS: BISACODYL 5 MG TABEC PO SCH (08:20)
[2016-11-10] MEDS: MAGNESIUM OXIDE 400 MG TAB PO SCH (08:21)
[2016-11-10] MEDS: ASPIRIN 81 MG ECTAB PO SCH (08:21)
[2016-11-10] MEDS: TORSEMIDE 20 MG TAB PO SCH (08:21)
[2016-11-10] MEDS: CALCIUM POLYCARBOPHIL 1 TAB PO SCH (08:21)
[2016-11-10] MEDS: FLUDROCORTISONE ACETATE 0.1 MG TAB PO SCH (08:22)
[2016-11-10] MEDS: POLYETHYLENE (MIRALAX) 17 GM PACK PO PRN (08:23)
[2016-11-10 08:24] LABS: CREATININE 2.1 mg/dl (0.60-1.40); MAGNESIUM 2.5 mg/dl (1.8-2.4); POTASSIUM 3.5 mmol/L (3.5-5.1)
[2016-11-10 08:37] LABS: ESTIMATED AVERAGE GLUCOSE 183 mg/dl; HA1C FLAG Normal (Normal)
[2016-11-10] MEDS ORDERED: IPRATROPIUM BROMIDE/ALBUTEROL respimat INH INH SCH (12:00)
--- NOTE | 2016-11-10 13:11 | Discharge Instructions ---
Discharge Instructions Date of Service Nov 10, 2016. Admission Reason for Admission: Pneumonia Discharge Discharge Diagnosis / Problem: UTI Discharge Goals Goal(s): Decrease discomfort, Improve disease control Activity Recommendations Activity Limitations: resume your previous activity . Current Hospital Diet Patient's current hospital diet: Diabetes Type 2 Diet, AHA Diet (Heart Healthy) Discharge Diet Recommended Diet: Diabetes Type 2 Diet Pending Studies Studies pending at discharge: no Laboratory Results Hemoglobin A1c Test 11/10/16 07:25 Range/Units Estimated Average Glucose 183 mg/dl Hemoglobin A1c 8.0 H 4.5-5.6 % Medical Emergencies . Who to Call and When: Medical Emergencies: If at any time you feel your situation is an emergency, please call 911 immediately. . Non-Emergent Contact Non-Emergency issues call your: Primary Care Provider, Urologist . . "Provider Documentation" section prepared by Verónica Wu. . VTE Core Measure Inpt VTE Proph given/why not?: Unfractionated heparin SQ
--- NOTE | 2016-11-10 13:15 | Discharge Summary ---
Discharge Summary Date of Service Nov 10, 2016. Discharge Summary Admission Date: Nov 07, 2016 at 21:51 Discharge Date: Nov 10, 2016 [facility] Principal Diagnosis: Pseudomonas UTI Immunizations: Have You Had Influenza Vaccine: Yes Influenza Vaccine Date: Jun 08, 2013 History of Tetanus Vaccine?: Unknown History of Pneumococcal: Yes History of Hepatitis B Vaccine: Unknown Procedures: CT Abd/PELV IMPRESSION: 1. Significantly suboptimal examination without IV contrast. 2. There are no acute infectious or inflammatory findings in the abdomen or pelvis. 3. Suspect emphysema. 4. There are patchy airspace opacities at the right lung base. This could represent atelectasis, mild fibrosis, and/or an infectious/inflammatory pneumonitis. Clinical correlation will be required. 5. Advanced colonic diverticulosis without CT evidence of acute diverticulitis. 6. Moderate constipation. 7. Cholelithiasis. The gallbladder is mildly distended but otherwise normal in appearance. There is no convincing CT evidence of acute cholecystitis. 8. Additional findings as above. CHEST ONE VIEW PORTABLE HISTORY: fever COMPARISON: Chest 10/01/2016. Chest CT 08/17/2016. FINDINGS: Decrease in size in a 2.7 cm round left upper lobe airspace opacity. Bibasilar interstitial thickening, right greater than left. This has slightly progressed on the right.. No pleural effusions. No pneumothorax. The heart is stable in size. IMPRESSION: 1. Decrease in size in a 2.7 cm round left upper lobe airspace opacity. This favors a resolving pneumonia. An additional one month chest CT follow-up is recommended to ensure complete resolution. 2. Bibasilar interstitial thickening, right greater than left persists. This is slightly progressed on the right and could represent a developing pneumonia. Medication Reconciliation New Medications: Ciprofloxacin Tab (Cipro) 250 Mg Tab 250 MG PO BID for 4 Days, #8 TAB Fludrocortisone Acetate (Fludrocortisone Acetate) 0.1 Mg Tab 0.1 MG PO BID for 10 Days, #20 TAB Lactobacillus Acidophilus (Floranex) 1 Tab Tab 4 TAB PO TIDM for 10 Days, TAB Continued Medications: Acetaminophen (Tylenol) 500 Mg Tab 1000 MG PO Q12 TAKE AT 0800 & 2000 Aspirin (Aspirin Chewable) 81 Mg Chew 81 MG PO DAILY Atenolol (Tenormin) 25 Mg Tab 12.5 MG PO DAILY, TAB Atorvastatin (Lipitor) 20 Mg Tab 20 MG PO HS, TAB Bisacodyl (Bisacodyl) 5 Mg Tab 5 MG PO BID Calcium Polycarbophil (Fiber Laxative) 625 Mg Tab 1 TAB PO DAILY Clopidogrel (Plavix) 75 Mg Tab 75 MG PO DAILY Docusate Sodium (Colace) 100 Mg Cap 100 MG PO BID Dutasteride (Avodart) 0.5 Mg Cap 0.5 MG PO QPM Famotidine (Pepcid) 20 Mg Tab 20 MG PO HS Fluticasone Prop/Salmeterol (Advair Diskus 250-50 Mcg/Dose) 14 Puff/1 Inhaler Aerp 1 PUFF INH BID, #1 INHALER Fluticasone Propionate (Fluticasone Propionate) 50 Mcg/Act Spr 2 SPRAYS NA DAILY for 30 Days Gabapentin (Gabapentin) 600 Mg Tab 600 MG PO TID Guaifenesin Ext Rel (Mucinex Ext Rel) 600 Mg Tabcr 1200 MG PO Q12, TAB Hydrocortisone (Cortef) 20 Mg Tab 40 MG PO BID Insulin Glargine (Lantus Solostar) 100 Unit/Ml Inj 45 UNIT SC QPM for 30 Days Levalbuterol (Levalbuterol HCl) 0.63 Mg/3 Ml Nebu 1 VIAL NEB TID GIVE AT 0600,1200,2000 Lidocaine (Lidocaine) 1 Patch Tdsy 1 PATCH TD QAM for 30 Days to back pain Lorazepam (Lorazepam) 0.5 Mg Tab 0.5 MG PO Q4 PRN for Anxiety/Agitation, #30 Magnesium Oxide (Mag-Ox) 400 Mg Tab 400 MG PO BID, TAB Methenamine Hippurate (Methenamine Hippurate) 1 Gm Tab 1 GM PO HS Metolazone (Zaroxolyn) 2.5 Mg Tab 2.5 MG PO DAILY PRN for WT GAIN 3LBS/24HR OR 5LB/WEEK 30 MIN PRIOR TO DEMADEX Multiple Vitamins W/ Minerals (Therems M) 1 Tab Tab 1 TAB PO DAILY Nitroglycerin (Nitrostat) 0.4 Mg Tab 1 TAB SL UD PRN for Chest Pain, 3 Refills Omeprazole (Prilosec) 20 Mg Capcr 20 MG PO DAILY, CAP Oxycodone HCl (Oxycontin) 15 Mg Tabcr 15 MG PO Q12, #6 Polyethylene Glycol 3350 (Miralax) 1 Pow Pow 17 GM PO BID, #255 GM Polyethylene Glycol-Propylene (Systane Ultra) 1 Idania Idania 1 DROPS OPB BID, #15 ML 1 Refill Potassium Chloride (Klor-Con M20) 20 Meq Tabcr 40 MEQ PO TID for 7 Days, #60 Simethicone (Gas-X) 80 Mg Chw 80 MG PO QID PRN for Indigestion Tamsulosin HCl (Tamsulosin HCl) 0.4 Mg Cap 0.4 MG PO HS for 30 Days, CAP Torsemide (Torsemide) 20 Mg Tab 60 MG PO QAM for 30 Days, #90 TAB Trolamine Salicylate (Aspercreme) 10 % Lot 1 APPLN TOP BID PRN for ARTHRITIS PAIN [Blood Sugars] () Unknown Dose BID Discontinued Medications: Fludrocortisone Acetate (Florinef) 0.1 Mg Tab 0.1 MG PO DAILY Hospital Course 86 y/o M w/Hx COPD, CAD, CKD 3-4, aspiration - presents with fever/rigors, diaphoresis, SOB and N/V. The pts spouse has accompanied him and states that the presentation is typical for him when he gets an infection. He has been treated multiple times for pneumonia - possibly related to aspiration - and UTIs over the past year. He was d/cd from the hospital 2 weeks prior following pneumonia treatment and until recently was on an aspiration diet. The pt is a poor historian but is able to answer questions appropriately. He does not c/o SOB or CP at the time of admission. He is considerably tender and distended in his lower abdomen. He was treated for possible aspiration pneumonia, however, he passed his swallowing evaluation and qualified for mechanical soft diet. He was treated for Pseudomonas UTI with zosyn and switched to cipro 250 mg for 4 more days to complete 7 day course per ID. Patient improved and will be sent back to [facility]. Vital Signs Date Time Temp Pulse Resp B/P Pulse Ox O2 Delivery O2 Flow Rate FiO2 11/10/16 13:56 36.3 67 18 93 Room Air 11/10/16 11:44 97/61 11/10/16 08:00 2.0 On day of discharge, eating well. No chest pain, no sob. C/O left leg pain which is chronic. Breathing is fine. nad ,aox3, anicteric s1 s2 rrr, no murmurs appreciated decreased breath sound, no w/r/r abd soft nt/nd +BS no LE edema gomez in place and draining clear yellow urine 1. Fevers with n/v - ct abd as above, no e/o obstruction - chronic indwelling gomez for urinary retention - Pseudomas UTI +/- pneumonia HCAP vs aspiration (h/o aspirations, also vomiting ) - h/o c diff as well - ID recs: cipro 250mg bid for 4 more days to complete 7 day course 2. H/o aspirations - possible aspiration pneumonia/itis - swallow eval with recs - HOB elevated - mechanical soft diet - will need f/u CXR for clearance 3. CKD - creat baseline appears to be 1.6-1.9 - avoid nephrotoxins including NSAIDs, non-emergent contrast studies, hypotension and volume depletion 4. Adrenal insufficiency - hydrocortisone back to home dose - increased florinef to bid while in acute phase, will need f/u with PCP for re- adjustment as needed - monitor BPs Total Time Spent: Less than 30 minutes This includes examination of the patient, discharge planning, medication reconciliation, and communication with other providers. Discharge Instructions Please refer to the electronic Patient Visit Report (Discharge Instructions) for additional information. Additional Copies To [facility]
[2016-11-11] MEDS ORDERED: VANCOMYCIN TROUGH ONE (21:30)
[2017-03-01] MEDS ORDERED: GFNSR600 PO (00:08)
[2017-03-01] MEDS ORDERED: DOCU-94 PO (00:15)
[2017-03-01] MEDS ORDERED: ACET-1256 PO (00:18)
[2017-03-01] MEDS ORDERED: METO2.5T PO (00:23)
[2017-03-01] MEDS ORDERED: NTRGSL/4 SL (09:07)
[2017-03-01] MEDS ORDERED: MULTTAB63 PO (09:07)
[2017-03-01] MEDS ORDERED: POLY1SOL6 OPB (09:50)
[2017-03-01] MEDS ORDERED: MAGN400T6 PO (09:50)
[2017-03-01] MEDS ORDERED: CLOP1TAB15 PO (09:56)
[2017-03-01] MEDS ORDERED: BISA1TAB15 PO (12:45)
[2017-03-01] MEDS ORDERED: ATV5X PO (12:47)
[2017-03-01] MEDS ORDERED: ATEN-173 PO (12:47)
[2017-03-01] MEDS ORDERED: HYDR20TA3 PO (16:12)
[2017-03-01] MEDS ORDERED: PRLSR20 PO (19:07)
[2017-03-01] MEDS ORDERED: METH-1305 PO (22:04)
[2017-03-26] MEDS ORDERED: WARF3TAB6 PO (20:54)
[2017-03-28] MEDS ORDERED: OXYSR15 PO (16:37)
[2017-03-28] MEDS ORDERED: HYD10 PO (16:37)
[2017-03-28] MEDS ORDERED: CYAN10005 PO (16:37)
[2017-03-28] MEDS ORDERED: MCRK20 PO (16:37)
[2017-03-28] MEDS ORDERED: HYDR20TA PO (16:53)
[2017-03-28] MEDS ORDERED: FLUC100T4 PO (17:10)
== END 2016-11-10 14:38 | DRG 178 ==
LOC: ENRESERVTM → ENRESERVDT → EDBD 19:26 → C.EDB 19:27 → C.MED 21:51
PROVIDERS: ADMIT Internal Medicine; ATTEND Internal Medicine
DX: J69.0 Pneumonitis due to inhalation of food and vomit (principal); N39.0 Urinary tract infection, site not specified; N18.4 Chronic kidney disease, stage 4 (severe); J44.9 Chronic obstructive pulmonary disease, unspecified; I10 Essential (primary) hypertension; E78.00 Pure hypercholesterolemia, unspecified; E21.3 Hyperparathyroidism, unspecified; I95.9 Hypotension, unspecified; K59.00 Constipation, unspecified; A49.8 Other bacterial infections of unspecified site; Z87.891 Personal history of nicotine dependence; Z79.82 Long term (current) use of aspirin; Z79.4 Long term (current) use of insulin; I25.2 Old myocardial infarction

== ENCOUNTER → 2016-11-30 | Outpatient (CLI) | payer OTHER ==
[~2016-11-30] MED LIST changes: +ACET-1256 PO; -ACET-1311 PO; +ADVIN25/60 INH; +AMOX875T PO; +ASPCH81X PO; +ATEN-173 PO; +ATV5X PO; +BISA1TAB15 PO; +CLOP1TAB15 PO; +CMD5 PO; +CYAN10005 PO; +CYAN1TAB18 PO; +CYM30 PO; +DOCU-94 PO; +DULO60CA44 PO; +DUTA1CAP3 PO; +ENOX120I SQ; +FAMO1TAB47 PO; +FIBER PO; +FLNIN/ NAE; -FLR/1 PO; +FLUC100T4 PO; +FLUD0.1T PO; +FLUD0.1T10 PO; +GFNSR600 PO; +GUAI1TAB55 PO; +HYD10 PO; +HYDR20TA PO; +HYDR20TA3 PO; +INSDGI SQ; +IPRA1AER2 INH; +LCTX PO; +LEVO1TAB35 PO; +LIDO1PAD2 TD; +LINE1TAB6 PO; +LPT/20 PO; +MAGN400T6 PO; +METH-1305 PO; +METO2.5T PO; +MULTTAB63 PO; +NRN800 PO; +NTRGSL/4 SL; +NVLGI7030 SQ; -ONDA4TAB9 PO; +OXGN; +OXYC15TA89 PO; +POLY1SOL6 OPB; +POLY335019 PO; +POTA20TA16 PO; +PRED10TA PO; +PRED20TA PO; +PRLSR20 PO; +SIME80CH PO; +TAMS0.4C38 PO; +TORS20TA2 PO; +TROL10LO TOP; +WARF2.5T8 PO; +WARF2TAB PO; +WARF3TAB6 PO; +[UNRECOGNIZED DRUG - CODE] TOP; +[UNRECOGNIZED DRUG - REMARK]
[2016-11-30 10:21] LABS: BLOOD UREA NITROGEN 29 mg/dl (7-18); BUN/CREATININE RATIO 13.2 (10-20); CALCIUM 8.8 mg/dl (8.5-10.1); CARBON DIOXIDE 35 mmol/L (21-32); CHLORIDE 97 mmol/L (98-107); GLUCOSE 284 mg/dl (70-99); POTASSIUM 3.3 mmol/L (3.5-5.1); SODIUM 141 mmol/L (136-145)
--- NOTE | 2016-12-01 22:14 | CODING QUERY NO DIAGNOSIS ---
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 Please assist us with providing a diagnosis/symptom for the test(s) below: A diagnosis/symptom was not documented on your Order. A valid diagnosis/symptom is required to bill all insurances. Please remember that we are unable to code a diagnosis of rule out, probable, possible, questionable, or suspected. DOS 11/30/16 Tests that require a diagnosis: * PARTIAL RENAL PROFILE DIAGNOSIS: Provider Signature: Date: Thank you Dilia Woods Video Recruit Information Management Once completed, please kindly fax back to [phone] For questions please call [phone]
== END | disposition home or self-care (01) ==
LOC: C.LABVPSUA 10:01
PROVIDERS: ATTEND Internal Medicine Critical Care Medicine
DX: N28.9 Disorder of kidney and ureter, unspecified (principal)

== ENCOUNTER → 2016-12-27 | Outpatient (CLI) | payer OTHER ==
--- NOTE | 2016-12-27 14:56 | DIAGNOSTIC IMAGING REPORT ---
CHEST CT WITHOUT CONTRAST CT DOSE: 627.72 mGy.cm HISTORY: Lung nodules R91.1 Lung noduled in four [id number] TECHNIQUE: Multiaxial CT images of the chest were performed without contrast. COMPARISON: 08/17/2016 FINDINGS: Maximum in parenchymal nodularity throughout both hemithoraces. The bulk of the pleural plaques as well as calcified granulomas have remains stable. There is improvement of the interstitial change at both lung bases with improvement in pleural thickening of the posterior hemithoraces. One exception is in the superior segment left lower lobe where there has been progressive development of a nodular density currently measuring 2.0 cm. This is immediately adjacent to and potentially is a cast to the major fissure. It is pleural-based laterally. No additional significant interval nodularity is identified. All remaining nodularity appears described is stable to slightly improved. Hilar and mediastinal regions show no significant obinna change. IMPRESSION: 1. Interval development of a 2 cm irregular nodule superior segment left lower lobe. 2. All additional nodules and foci of pleural thickening are stable to slightly improved compared to the prior exam. 3. Follow-up study such as a PET scan may be of interest to exclude the possibility of a developing malignancy at the left lower lobe site. Electronically signed by: Jaun Kim M.D. 12/27/2016 2:54 PM Dictated Date/Time: 12/27/2016 2:47 PM
[2016-12-27 16:13] LABS: ALT/SGPT 25 U/L (12-78); AST/SGOT 12 U/L (15-37); BLOOD UREA NITROGEN 28 mg/dl (7-18); BUN/CREATININE RATIO 14.7 (10-20); CALCIUM 8.2 mg/dl (8.5-10.1); CARBON DIOXIDE 32 mmol/L (21-32); CHLORIDE 101 mmol/L (98-107); GLUCOSE 210 mg/dl (70-99); POTASSIUM 3.8 mmol/L (3.5-5.1); SODIUM 140 mmol/L (136-145)
[2016-12-27 16:23] LABS: HEMATOCRIT 38.2 % (42-52); MEAN CELL VOLUME 89.3 fL (80-100); MEAN CORPUSCULAR HEMOGLOBIN 26.4 pg (25-34); MEAN CORPUSCULAR HGB CONC 29.6 g/dl (32-36); MEAN PLATELET VOLUME 10.3 fL (7.4-10.4); PLATELET COUNT 202 K/uL (130-400); RED BLOOD COUNT 4.28 M/uL (4.7-6.1); WHITE BLOOD COUNT 5.36 K/uL (4.8-10.8)
== END | disposition home or self-care (01) ==
LOC: C.CTS 14:26
PROVIDERS: ATTEND Internal Medicine Pulmonary Disease
DX: R91.1 Solitary pulmonary nodule (principal); I25.10 Atherosclerotic heart disease of native coronary artery without angina pectoris; I95.1 Orthostatic hypotension; R06.02 Shortness of breath; I48.92 Unspecified atrial flutter; I50.32 Chronic diastolic (congestive) heart failure

== ENCOUNTER → 2017-01-22 | Outpatient (CLI) | payer OTHER ==
[~2017-01-22] MED LIST changes: -FLNIN/ NAE; +FLR1 PO; -FLUD0.1T PO; -LIDO1PAD2 TD; -METH-1305 PO; +METH1TAB5 PO; -POTA20TA16 PO; -TORS20TA2 PO
[2017-01-22 10:36] LABS: ESTIMATED AVERAGE GLUCOSE 206 mg/dl; HA1C FLAG Normal (Normal)
== END | disposition home or self-care (01) ==
LOC: C.LABVPSUA 09:42
PROVIDERS: ATTEND Internal Medicine Critical Care Medicine
DX: E11.9 Type 2 diabetes mellitus without complications (principal)

== ENCOUNTER 2017-03-01 20:48 | Inpatient (IN) | payer OTHER ==
[~2017-03-01] VITALS: Ht 185.4 cm; Wt 100.2 kg
[~2017-03-01 20:48] MED LIST changes: -ADVIN25/60 INH; -AMOX875T PO; -ASPCH81X PO; -CMD5 PO; -CYAN10005 PO; -CYAN1TAB18 PO; -CYM30 PO; -DULO60CA44 PO; -DUTA1CAP3 PO; -ENOX120I SQ; -FAMO1TAB47 PO; -FIBER PO; -FLUC100T4 PO; -FLUD0.1T10 PO; -GUAI1TAB55 PO; -HYD10 PO; -HYDR20TA PO; -INSDGI SQ; -IPRA1AER2 INH; -LEVO1TAB35 PO; -LINE1TAB6 PO; -LPT/20 PO; -METH1TAB5 PO; -NRN800 PO; -NVLGI7030 SQ; -OXGN; -OXYC15TA89 PO; -POLY335019 PO; -PRED10TA PO; -PRED20TA PO; -SIME80CH PO; -TAMS0.4C38 PO; -TROL10LO TOP; -WARF2.5T8 PO; -WARF2TAB PO; -WARF3TAB6 PO; -[UNRECOGNIZED DRUG - CODE] TOP
[2017-03-01] MEDS ORDERED: METHYLPREDNISOLONE 125 MG VIAL IV STA (21:05)
[2017-03-01] MEDS ORDERED: POLY335019 PO (21:16)
[2017-03-01] MEDS ORDERED: SIME80CH PO (21:16)
[2017-03-01] MEDS ORDERED: TROL10LO TOP (21:16)
--- NOTE | 2017-03-01 21:18 | EMERGENCY ROOM VISIT NOTE ---
History Report prepared by Hood: Lydia Clark Under the Supervision of: Dr. Terry Vallejo M.D. First contact with patient: 20:55 Stated Complaint: RESPIRATORY DISTRESS History of Present Illness The patient is a 86 year old male who presents to the Emergency Room with complaints of persistent respiratory distress starting just prior to arrival. The patient was visiting his [place] when he started to feel very SOB. He was on home O2 but taken off about a month ago. The patient was given a DuoNeb and an Albuterol neb just prior to arrival, but he states he has had minimal relief. He states that he has been short of breath for 3 days--he has been coughing more. He also notes he was dizzy and sweaty starting yesterday. The patient denies any pain. He also states he has swelling to his legs which is normal. The patient has a history of recurrent pneumonia. The patient is also a DNR. The patient was in the hospital in October for pneumonia. Source of History: patient Onset: just prior to arrival Timing: other (persistent) Associated Symptoms: + diaphoresis, + SOB Note: Pt notes dizziness and denies any pain. Review of Systems See HPI for pertinent positives & negatives. A total of 10 systems reviewed and were otherwise negative. Past Medical & Surgical Medical Problems: (1) Acute on chronic respiratory failure with hypoxia and hypercapnia (2) Acute renal failure (3) Anemia (4) Asthma (5) chronic kidney disease (6) COPD (chronic obstructive pulmonary disease) (7) Coronary artery disease (8) CVA (cerebrovascular accident) (9) Essential hypertension (10) HTN (hypertension) (11) Hypercholesterolemia (12) Hyperparathyroidism (13) Hypotension (14) Influenza A (15) HI (myocardial infarction) (16) Peripheral vascular disease (17) TIA (transient ischemic attack) (18) Urinary retention (19) Urosepsis Surgical Problems: (1) H/O heart artery stent Family History FH: heart disease Hypertension Social History Smoking Status: Former Smoker Alcohol Use: occasionally Drug Use: none Marital Status: Housing Status: lives with significant other Occupation Status: retired Current/Historical Medications Scheduled Acetaminophen (Tylenol), 1,000 MG PO Q12 Aspirin (Aspirin Chewable), 81 MG PO DAILY Atenolol (Tenormin), 12.5 MG PO DAILY Atorvastatin (Atorvastatin Calcium), 20 MG PO HS Bisacodyl (Bisacodyl), 5 MG PO BID Calcium Polycarbophil (Fiber Laxative), 1 TAB PO DAILY Clopidogrel (Plavix), 75 MG PO DAILY Docusate Sodium (Colace), 100 MG PO BID Duloxetine HCl (Duloxetine HCl), 30 MG PO DAILY Dutasteride (Dutasteride), 0.5 MG PO DAILY Famotidine (Famotidine), 20 MG PO HS Fiber Laxative (Fiber Laxative), 1 TAB PO DAILY Fludrocortisone Acetate (Fludrocortisone Acetate), 0.1 MG PO BID Fluticasone Prop/Salmeterol (Advair Diskus 250-50 Mcg/Dose), 1 PUFF INH BID Fluticasone Propionate (Fluticasone Propionate), 2 SPRAYS NA DAILY Gabapentin (Gabapentin), 800 MG PO BID Guaifenesin Ext Rel (Mucinex Ext Rel), 1,200 MG PO Q12 Hydrocortisone (Cortef), 40 MG PO BID Insulin Aspart 70/30 (Novolog Mix 70/30), 5 UNITS SQ QPM Insulin Aspart Protamine & Asp (Novolog Mix 70/30), 20 UNITS SQ QAM Insulin Glargine (Lantus), 55 UNIT SQ HS Ipratropium-Albuterol (Combivent Respimat), 1 PUFF INH QID Lidocaine (Lidocaine), 1 PATCH TD QAM Magnesium Oxide (Mag-Ox), 400 MG PO BID Methenamine Hippurate (Methenamine Hippurate), 1 GM PO HS Multiple Vitamins W/ Minerals (Therems M), 1 TAB PO DAILY Omeprazole (Prilosec), 20 MG PO DAILY Oxycodone HCl (Oxycontin), 15 MG PO Q12 Polyethylene Glycol 3350 (Miralax), 17 GM PO BID Polyethylene Glycol-Propylene (Systane Ultra), 1 DROPS OPB BID Potassium Chloride (Klor-Con M20), 40 MEQ PO TID Tamsulosin Hcl (Flomax), 0.4 MG PO HS Torsemide (Torsemide), 60 MG PO QAM Scheduled PRN Levalbuterol (Levalbuterol HCl), 1 VIAL NEB Q4 PRN for Wheezing Lorazepam (Lorazepam), 0.5 MG PO Q4 PRN for Anxiety/Agitation Metolazone (Zaroxolyn), 2.5 MG PO DAILY PRN for WT GAIN 3LBS/24HR OR 5LB/WEEK Nitroglycerin (Nitrostat), 1 TAB SL UD PRN for Chest Pain Simethicone (Gas-X), 80 MG PO QID PRN for Indigestion Trolamine Salicylate (Aspercreme), 1 APPLN TOP BID PRN for ARTHRITIS PAIN Allergies Coded Allergies: No Known Allergies (Unverified , 11/07/16) Physical Exam Vital Signs Date Time Temp Pulse Resp B/P (MAP) Pulse Ox O2 Delivery O2 Flow Rate FiO2 03/01/17 21:45 75 20 106/63 95 Nasal Cannula 2.0 03/01/17 21:12 96 Nasal Cannula 2.0 03/01/17 21:06 73 03/01/17 21:06 37.4 76 22 121/72 88 Room Air 03/01/17 21:06 88 Room Air 03/01/17 21:00 96 Nasal Cannula 2.0 03/01/17 21:00 96 Nasal Cannula 2.0 Physical Exam GENERAL: Patient is in no acute distress. HEENT: No acute trauma, normocephalic atraumatic, mucous membranes dry, no nasal congestion, no scleral icterus. NECK: No stridor, no adenopathy, no meningismus, trachea is midline. LUNGS: Wheezing bilaterally, breath sounds equal and diminished bilaterally with crackles at both bases HEART: Without murmurs gallops or rubs, regular rate and rhythm. ABDOMEN: Soft, nontender, bowel sounds positive, no hernias, no peritonitis. Ball catheter noted. EXTREMITIES: No cyanosis, mild bilateral pedal edema, full range of motion of all the joints without pain or difficulty, no signs for acute trauma. NEUROLOGIC: Oriented x 3, no acute motor or sensory deficits, no focal weakness. SKIN: No rash, no jaundice, no diaphoresis. Medical Decision & Procedures ER Provider Diagnostic Interpretation: Radiology results as stated below per my review and radiologist interpretation: SINGLE VIEW CHEST FINDINGS: An AP, portable, upright chest radiograph is compared to chest x-ray and chest CT dated 11/07/2016. Correlation is made with chest CT dated 12/27/2016. The examination is degraded by portable technique and patient rotation. The heart is enlarged and there is atherosclerotic calcification of the thoracic aorta. The pulmonary vasculature is noncongested. Advanced emphysema and chronic interstitial thickening is similar to previous. Scattered calcified granulomas are observed. There there are mild airspace opacities in the left upper and right lower lungs. These appear improved from previous. No large pleural effusion or pneumothorax is seen. The skeletal structures are osteopenic. The bony thorax is grossly intact. IMPRESSION: 1. Cardiomegaly and emphysema. 2. There are mild bilateral airspace opacities which appear improved from recent prior studies. This likely represents resolving pneumonia. Continued radiographic follow-up to resolution is recommended. Electronically signed by: Terry Puente M.D. Laboratory Results 03/01/17 21:30 Red Blood Count 4.86, Mean Corpuscular Volume 89.3, Mean Corpuscular Hemoglobin 27.8, Mean Corpuscular Hemoglobin Concent 31.1, Mean Platelet Volume 10.4, Neutrophils (%) (Auto) 77.2, Lymphocytes (%) (Auto) 9.2, Monocytes (%) (Auto) 12.1, Eosinophils (%) (Auto) 0.7, Basophils (%) (Auto) 0.2, Neutrophils # (Auto ) 6.91, Lymphocytes # (Auto) 0.82, Monocytes # (Auto) 1.08, Eosinophils # (Auto ) 0.06, Basophils # (Auto) 0.02 03/01/17 21:30 Test 03/01/17 21:30 03/01/17 22:16 03/01/17 22:20 White Blood Count 8.94 K/uL (4.8-10.8) Red Blood Count 4.86 M/uL (4.7-6.1) Hemoglobin 13.5 g/dL (14.0-18.0) Hematocrit 43.4 % (42-52) Mean Corpuscular Volume 89.3 fL (80-100) Mean Corpuscular Hemoglobin 27.8 pg (25-34) Mean Corpuscular Hemoglobin Concent 31.1 g/dl (32-36) Platelet Count 196 K/uL (130-400) Mean Platelet Volume 10.4 fL (7.4-10.4) Neutrophils (%) (Auto) 77.2 % Lymphocytes (%) (Auto) 9.2 % Monocytes (%) (Auto) 12.1 % Eosinophils (%) (Auto) 0.7 % Basophils (%) (Auto) 0.2 % Neutrophils # (Auto) 6.91 K/uL (1.4-6.5) Lymphocytes # (Auto) 0.82 K/uL (1.2-3.4) Monocytes # (Auto) 1.08 K/uL (0.11-0.59) Eosinophils # (Auto) 0.06 K/uL (0-0.5) Basophils # (Auto) 0.02 K/uL (0-0.2) RDW Standard Deviation 60.5 fL (36.4-46.3) RDW Coefficient of Variation 18.7 % (11.5-14.5) Immature Granulocyte % (Auto) 0.6 % Immature Granulocyte # (Auto) 0.05 K/uL (0.00-0.02) Nucleated RBC Absolute Count (auto) 0.05 K/uL (0-0) Nucleated Red Blood Cells % 0.6 % Spherocytes 1+ Prothrombin Time 10.0 SECONDS (9.0-12.0) Prothromb Time International Ratio 0.9 (0.9-1.1) Activated Partial Thromboplast Time 24.1 SECONDS (21.0-31.0) Partial Thromboplastin Ratio 0.9 Anion Gap 7.0 mmol/L (3-11) Est Creatinine Clear Calc Drug Dose 29.2 ml/min Estimated GFR () 28.7 Estimated GFR (Non- 24.8 BUN/Creatinine Ratio 15.2 (10-20) Calcium Level 9.2 mg/dl (8.5-10.1) Magnesium Level 2.8 mg/dl (1.8-2.4) Total Bilirubin 0.5 mg/dl (0.2-1) Aspartate Amino Transf (AST/SGOT) 18 U/L (15-37) Alanine Aminotransferase (ALT/SGPT) 25 U/L (12-78) Alkaline Phosphatase 108 U/L (45-117) Troponin I < 0.015 ng/ml (0-0.045) Total Protein 7.9 gm/dl (6.4-8.2) Albumin 3.6 gm/dl (3.4-5.0) Globulin 4.3 gm/dl (2.5-4.0) Albumin/Globulin Ratio 0.8 (0.9-2) Urine Color YELLOW Urine Appearance CLEAR (CLEAR) Urine pH 5.0 (4.5-7.5) Urine Specific [place] 1.019 (1.000-1.030) Urine Protein NEG (NEG) Urine Glucose (UA) NEG (NEG) Urine Ketones NEG (NEG) Urine Occult Blood 2+ (NEG) Urine Nitrite POS (NEG) Urine Bilirubin NEG (NEG) Urine Urobilinogen NEG (NEG) Urine Leukocyte Esterase MODERATE (NEG) Urine WBC (Auto) >30 /hpf (0-5) Urine RBC (Auto) 10-30 /hpf (0-4) Urine Hyaline Casts (Auto) 1-5 /lpf (0-5) Urine Epithelial Cells (Auto) 0-5 /lpf (0-5) Urine Bacteria (Auto) 2+ (NEG) Laboratory results reviewed by me. Medications Administered Medications (Trade) Dose Ordered Sig/Cole Route Start Time Stop Time Status Last Admin Dose Admin Methylprednisolone Sodium Succinate (Solu-Medrol IV) 80 mg NOW STAT IV 03/01/17 21:05 03/01/17 21:08 DC 03/01/17 21:31 80 MG Levalbuterol (Xopenex 1.25MG/ 0.5ML Neb) 1.25 mg NOW STAT INH 03/01/17 21:57 03/01/17 21:58 DC 03/01/17 22:11 1.25 MG Ipratropium [place] (Atrovent 0.02% 0.5MG/2.5ML Neb) 0.5 mg NOW STAT INH 03/01/17 21:57 03/01/17 21:58 DC 03/01/17 22:11 0.5 MG Ceftriaxone Sodium (Rocephin Inj) 1 gm NOW STAT IV 03/01/17 21:58 03/01/17 22:00 DC 03/01/17 22:11 1 GM ECG Indication: other (repiratory distress) Rate (beats per minute): 75 Rhythm: sinus rhythm Findings: PAC, RBBB, no acute ischemic change, other (old lateral infarct) ED Course 2056: The patient was evaluated in room B6. A complete history and physical exam was performed. 2104: Solu-Medrol IV 80 mg IV 2156: Ipratropium [place] 0.5 mg INH, Levalbuterol 1.25 mg INH. 2157: Rocephin Inj 1 gm IV. 2230: I discussed the patients case wit Dr. Brody CHAHAL 2234: Upon reexamination the patient is resting. I discussed results and treatment plan with the patient. He verbalizes agreement and understanding. The patient will be evaluated for further management. Medical Decision Differential diagnosis includes but is not limited to bronchitis, pneumonia, CHF , cardiac ischemia, anemia, electrolyte imbalance, HI, exacerbation of COPD, UTI. There is no leukocytosis or concerning anemia. Renal panel testing shows a somewhat low potassium and some mild acute on chronic renal failure. Magnesium was actually elevated. There was no coagulopathy. No hepatitis. EKG shows a sinus rhythm with PACs and a right bundle branch block. There is an old lateral infarct, no acute ischemia. Chest x-ray shows some changes consistent with resolving pneumonia. The chest film looks improved compared to previous films. No pneumothorax or heart failure. ABG, and blood cultures are pending. Cardiac enzyme testing 1 is not consistent with acute cardiac injury. Urinalysis suggests infection, urine culture is pending. The patient had received 2 nebulizer treatments prior to arrival. While in the ER, he was given IV Solu-Medrol, IV ceftriaxone. He received a Xopenex Atrovent neb. He was ordered for IV potassium because of the lower potassium value. The patient still feels short of breath although, clinically, he does appear somewhat improved. He does require O2 supplementation-he was hypoxic without oxygen. Given the increasing dyspnea, given the respiratory distress described, given the hypoxia and UTI, admission/observation was felt warranted. I spoke to the patient and to case management. The on-call hospitalist was consulted. Medication Reconcilliation Current Medication List: was personally reviewed by me Blood Pressure Screening Patient's blood pressure: Low blood pressure Blood pressure disposition: Did not require urgent referral Consults Time Called: 2215 Consulting Physician: Dr. Brody CHAHAL Returned Call: 2230 Discussed the patient's case. The patient will be evaluated for further management. Impression Primary Impression: Respiratory distress Additional Impressions: Hypoxia COPD exacerbation UTI (lower urinary tract infection) Scribe Attestation The scribe's documentation has been prepared under my direction and personally reviewed by me in its entirety. I confirm that the note above accurately reflects all work, treatment, procedures, and medical decision making performed by me. Departure Information Dispostion Being Evaluated By Hospitalist Referrals [facility] (PCP) Problem Qualifiers
--- NOTE | 2017-03-01 21:37 | DIAGNOSTIC IMAGING REPORT ---
SINGLE VIEW CHEST CLINICAL HISTORY: Dyspnea. FINDINGS: An AP, portable, upright chest radiograph is compared to chest x-ray and chest CT dated 11/07/2016. Correlation is made with chest CT dated 12/27/2016. The examination is degraded by portable technique and patient rotation. The heart is enlarged and there is atherosclerotic calcification of the thoracic aorta. The pulmonary vasculature is noncongested. Advanced emphysema and chronic interstitial thickening is similar to previous. Scattered calcified granulomas are observed. There there are mild airspace opacities in the left upper and right lower lungs. These appear improved from previous. No large pleural effusion or pneumothorax is seen. The skeletal structures are osteopenic. The bony thorax is grossly intact. IMPRESSION: 1. Cardiomegaly and emphysema. 2. There are mild bilateral airspace opacities which appear improved from recent prior studies. This likely represents resolving pneumonia. Continued radiographic follow-up to resolution is recommended. Electronically signed by: Terry Puente M.D. 03/01/2017 9:36 PM Dictated Date/Time: 03/01/2017 9:33 PM
[2017-03-01 21:54] LABS: BASO % 0.2 %; BASO ABS # 0.02 K/uL (0-0.2); EOS % 0.7 %; HEMATOCRIT 43.4 % (42-52); IG% 0.6 %; LYMPH % 9.2 %; LYMPH ABS # 0.82 K/uL (1.2-3.4); MEAN CELL VOLUME 89.3 fL (80-100); MEAN CORPUSCULAR HEMOGLOBIN 27.8 pg (25-34); MEAN CORPUSCULAR HGB CONC 31.1 g/dl (32-36); MEAN PLATELET VOLUME 10.4 fL (7.4-10.4); MONO % 12.1 %; NEUT % 77.2 %; PLATELET COUNT 196 K/uL (130-400); RED BLOOD COUNT 4.86 M/uL (4.7-6.1); WHITE BLOOD COUNT 8.94 K/uL (4.8-10.8)
[2017-03-01] MEDS ORDERED: IPRATROPIUM BROMIDE NEB SOLN 0.02% 2.5 ML VIAL INH STA (21:57)
[2017-03-01] MEDS ORDERED: LEVALBUTEROL 1.25MG/0.5ML NEB INH STA (21:57)
[2017-03-01] MEDS ORDERED: CEFTRIAXONE SOD INJ 1 GM ADDVIAL IV STA (21:58)
[2017-03-01] MEDS ORDERED: CYM30 PO (22:02)
[2017-03-01] MEDS ORDERED: TAMS0.4C38 PO (22:02)
[2017-03-01] MEDS ORDERED: LPT/20 PO (22:02)
[2017-03-01] MEDS ORDERED: IPRA1AER2 INH (22:02)
[2017-03-01] MEDS ORDERED: NVLGI7030 SQ ×2 (22:02)
[2017-03-01] MEDS ORDERED: FAMO1TAB47 PO (22:02)
[2017-03-01] MEDS ORDERED: DUTA1CAP3 PO (22:02)
[2017-03-01] MEDS ORDERED: FIBER PO (22:02)
[2017-03-01] MEDS ORDERED: NRN800 PO (22:02)
[2017-03-01] MEDS ORDERED: INSDGI SQ (22:02)
[2017-03-01 22:03] LABS: INR 0.9 (0.9-1.1); PARTIAL THROMBOPLASTIN RATIO 0.9
[2017-03-01] MEDS ORDERED: METH1TAB5 PO (22:04)
[2017-03-01 22:21] LABS: COMPLETE YES; SPHEROCYTE 1+
[2017-03-01 22:28] LABS: ALT/SGPT 25 U/L (12-78); BLOOD UREA NITROGEN 35 mg/dl (7-18); BUN/CREATININE RATIO 15.2 (10-20); CALCIUM 9.2 mg/dl (8.5-10.1); CARBON DIOXIDE 37 mmol/L (21-32); CHLORIDE 94 mmol/L (98-107); GLUCOSE 220 mg/dl (70-99); MAGNESIUM 2.8 mg/dl (1.8-2.4); POTASSIUM 2.9 mmol/L (3.5-5.1); SODIUM 138 mmol/L (136-145)
[2017-03-01] MEDS ORDERED: POTASSIUM CHLORIDE 10 MEQ / 100ML WTR IV STA (22:30)
[2017-03-01 22:33] LABS: ALB/GLOB RATIO 0.8 (0.9-2); ALKALINE PHOSPHATASE 108 U/L (45-117); AST/SGOT 18 U/L (15-37)
[2017-03-01 22:33] LABS: URINE APPEARANCE CLEAR (CLEAR); URINE BILIRUBIN NEG (NEG); URINE COLOR YELLOW; URINE EPITHELIAL CELL AUTO 0-5 /lpf (0-5); URINE NITRITE POS (NEG); URINE SPECIFIC GRAVITY 1.019 (1.000-1.030); UROBILINOGEN NEG (NEG)
[2017-03-01 22:36] LABS: MANUAL MICROSCOPIC REQUIRED? NO; REVIEW REQ? NO
[2017-03-01 23:10] LABS: ARTERIAL BLD GAS O2 SATURATION 89.6 % (90-95); ARTERIAL BLOOD GAS BASE EXCESS 8.4 mEq/L (-9-1.8); ARTERIAL BLOOD GAS HCO3 33 mmol/L (19-24); ARTERIAL BLOOD GAS PO2 60 mm/Hg (80-95); ARTERIAL BLOOD GAS pH 7.47 (7.35-7.45)
[2017-03-01 23:11] LABS: ALLEN TEST POS (POS); O2 ADMINISTRATION 2L
[2017-03-01] MEDS ORDERED: ASPCH81X PO (23:21)
[2017-03-02] VITALS (16 sets, daily range): BP systolic 97–116; BP diastolic 52–73; PULSE 56–76; TEMP 36.4–37.7; O2SAT 91–98; Ht 185.4 cm; Wt 100.2 kg
[2017-03-02] MEDS ORDERED: ONDANSETRON INJ 2 MG/ML 2 ML VIAL IV PRN
[2017-03-02] MEDS ORDERED: LEVOFLOXACIN / D5W 500 MG in PREMIXED IN D5W 100 ML IV SCH
[2017-03-02] MEDS ORDERED: LEVALBUTEROL 0.63MG/3 ML NEB INH PRN
[2017-03-02] MEDS ORDERED: ZOLPIDEM TARTRATE 5 MG TAB PO PRN
[2017-03-02] MEDS ORDERED: SIMETHICONE 80 MG CHEW PO PRN
[2017-03-02] MEDS ORDERED: ACETAMINOPHEN 325 MG TAB PO PRN
[2017-03-02] MEDS ORDERED: LORAZEPAM 0.5 MG TAB PO PRN
[2017-03-02] MEDS ORDERED: MoRPHine SULFATE 2 MG/ML CARP IV PRN
[2017-03-02] MEDS ORDERED: ALUMINUM/MAGNESIUM/SIMETH (MAALOX MAX) 30 ML UDC PO PRN
[2017-03-02] MEDS ORDERED: MAGNESIUM HYDROXIDE SUSP 30 ML UDC PO PRN
[2017-03-02] MEDS ORDERED: NITROGLYCERIN 0.4 MG SL PER TAB CHARGE SL PRN
[2017-03-02] MEDS ORDERED: POTASSIUM CHLORIDE 20 MEQ TABCR PO ONE (01:45)
[2017-03-02] MEDS ORDERED: DEXTROSE 50% 50 ML SYR IV PRN (01:45)
[2017-03-02] MEDS ORDERED: GLUCOSE 40% GEL 15 GM TUBE PO PRN (01:45)
[2017-03-02] MEDS ORDERED: CEFEPIME CONSULT ACTIVE PRN ×2 (01:45)
[2017-03-02] MEDS ORDERED: GLUCAGON FOR INJ 1 MG VIAL SQ PRN (01:45)
[2017-03-02] MEDS ORDERED: GLUCOSE 10 TABS/TUBE PO PRN (01:45)
--- NOTE | 2017-03-02 02:00 | History and Physical ---
History & Physical Date & Time of Service: Mar 02, 2017 at 01:55 Chief Complaint: Respiratory Distress Primary Care Physician: Milka Major History of Present Illness Source: patient Mr Enciso is an 86 year old male who presented to the Emergency Room with complaints of shortness of breath, chest pain, productive cough and sweating over the past 3 days. He denies any nausea or vomiting. He has had some light headedness with He has some chest pain in the center of his chest which is aching, 5-6/10, staying about the same over the last 3 days but does get worse on coughing and exertion. He was hospitalized in October this year for pneumonia and he feels this episode is similar to then. Since being treated in the ER with duonebs and steroids he notes much improvement with his shortness of breath. Past Medical/Surgical History Medical Problems: Anemia Atrial flutter COPD (chronic obstructive pulmonary disease) Chronic diastolic congestive heart failure Chronic kidney disease Chronic respiratory failure (on 2L O2 at night) Cor pulmonale Coronary artery disease Esophageal reflux Hemorrhoids HTN (hypertension) Hypercholesterolemia Hyperparathyroidism Hypotension NE (myocardial infarction) Neurogenic bladder - chronic urinary retention with gomez catheter Peripheral neuropathy Peripheral vascular disease T2DM Uses a walker for ambulation Surgical Problems: H/O heart artery stent Family History FH: heart disease Hypertension Social History Smoking Status: Former Smoker (quit 6-7 years ago) Drug Use: none Marital Status: Housing status: lives with family, fpc Occupational Status: retired Immunizations History of Influenza Vaccine: Yes Influenza Vaccine Date: Jun 08, 2013 History of Tetanus Vaccine?: Unknown History of Pneumococcal: Yes History of Hepatitis B Vaccine: Unknown Multi-Drug Resistant Organisms History of MDRO: Yes Type of MDRO: MRSA Allergies Coded Allergies: No Known Allergies (Unverified , 11/07/16) Home Medications Scheduled Acetaminophen (Tylenol), 1,000 MG PO Q12 Aspirin (Aspirin Chewable), 81 MG PO DAILY Atenolol (Tenormin), 12.5 MG PO DAILY Atorvastatin (Atorvastatin Calcium), 20 MG PO HS Bisacodyl (Bisacodyl), 5 MG PO BID Calcium Polycarbophil (Fiber Laxative), 1 TAB PO DAILY Clopidogrel (Plavix), 75 MG PO DAILY Docusate Sodium (Colace), 100 MG PO BID Duloxetine HCl (Duloxetine HCl), 30 MG PO DAILY Dutasteride (Dutasteride), 0.5 MG PO DAILY Famotidine (Famotidine), 20 MG PO HS Fiber Laxative (Fiber Laxative), 1 TAB PO DAILY Fludrocortisone Acetate (Fludrocortisone Acetate), 0.1 MG PO BID Fluticasone Prop/Salmeterol (Advair Diskus 250-50 Mcg/Dose), 1 PUFF INH BID Fluticasone Propionate (Fluticasone Propionate), 2 SPRAYS NA DAILY Gabapentin (Gabapentin), 800 MG PO BID Guaifenesin Ext Rel (Mucinex Ext Rel), 1,200 MG PO Q12 Hydrocortisone (Cortef), 40 MG PO BID Insulin Aspart 70/30 (Novolog Mix 70/30), 5 UNITS SQ QPM Insulin Aspart Protamine & Asp (Novolog Mix 70/30), 20 UNITS SQ QAM Insulin Glargine (Lantus), 55 UNIT SQ HS Ipratropium-Albuterol (Combivent Respimat), 1 PUFF INH QID Lidocaine (Lidocaine), 1 PATCH TD QAM Magnesium Oxide (Mag-Ox), 400 MG PO BID Methenamine Hippurate (Methenamine Hippurate), 1 GM PO HS Multiple Vitamins W/ Minerals (Therems M), 1 TAB PO DAILY Omeprazole (Prilosec), 20 MG PO DAILY Oxycodone HCl (Oxycontin), 15 MG PO Q12 Polyethylene Glycol 3350 (Miralax), 17 GM PO BID Polyethylene Glycol-Propylene (Systane Ultra), 1 DROPS OPB BID Potassium Chloride (Klor-Con M20), 40 MEQ PO TID Tamsulosin Hcl (Flomax), 0.4 MG PO HS Torsemide (Torsemide), 60 MG PO QAM Scheduled PRN Levalbuterol (Levalbuterol HCl), 1 VIAL NEB Q4 PRN for Wheezing Lorazepam (Lorazepam), 0.5 MG PO Q4 PRN for Anxiety/Agitation Metolazone (Zaroxolyn), 2.5 MG PO DAILY PRN for WT GAIN 3LBS/24HR OR 5LB/WEEK Nitroglycerin (Nitrostat), 1 TAB SL UD PRN for Chest Pain Simethicone (Gas-X), 80 MG PO QID PRN for Indigestion Trolamine Salicylate (Aspercreme), 1 APPLN TOP BID PRN for ARTHRITIS PAIN Review of Systems Constitutional: + fever, + sweats, No chills Respiratory: + cough, + sputum, + shortness of breath, + dyspnea on exertion ( worse than normal), No wheezing Cardiovascular: + chest pain, + edema (at his baseline), No orthopnea, No PND Abdomen: No pain, No nausea, No vomiting, No diarrhea, No constipation, No GI bleeding Musculoskeletal: + calf pain (bilateral) Genitourinary - Male: + urinary retention (chronic indwelling gomez catheter), No hematuria Endocrine: + fatigue, No excessive urination Hematologic / Lymphatic: No abnormal bleeding/bruising Integumentary: No rash, No itch Physical Exam Vital Signs Date Time Temp Pulse Resp B/P (MAP) Pulse Ox O2 Delivery O2 Flow Rate FiO2 03/02/17 01:03 65 20 96/65 93 Room Air 03/01/17 23:52 69 22 104/66 92 Nasal Cannula 2.0 03/01/17 22:45 69 18 116/62 93 Nasal Cannula 2.0 03/01/17 21:45 75 20 106/63 95 Nasal Cannula 2.0 03/01/17 21:12 96 Nasal Cannula 2.0 03/01/17 21:06 73 03/01/17 21:06 37.4 76 22 121/72 88 Room Air 03/01/17 21:06 88 Room Air 03/01/17 21:00 96 Nasal Cannula 2.0 03/01/17 21:00 96 Nasal Cannula 2.0 General Appearance: + mild distress Head: normocephalic, atraumatic Eyes: normal inspection (pupils equal) Neck: supple, trachea midline Respiratory/Chest: no respiratory distress, no accessory muscle use, + crackles (right sided coarse crackles) Cardiovascular: regular rate, rhythm Abdomen/GI: normal bowel sounds, non tender, soft Extremities/Musculoskelatal: + calf tenderness (bilateral (pt reports as new)) , + pedal edema (R 3+ to mid thighs > L 2+ to knees) Neurologic/Psych: no motor/sensory deficits (grossly), alert, oriented x 3 Skin: + pertinent finding (bruising on arms in sites of previously needle sticks) Diagnostics Laboratory Results Results Past 24 Hours Test 03/01/17 21:30 03/01/17 22:20 03/01/17 22:44 Range/Units White Blood Count 8.94 4.8-10.8 K/uL Red Blood Count 4.86 4.7-6.1 M/uL Hemoglobin 13.5 14.0-18.0 g/dL Hematocrit 43.4 42-52 % Mean Corpuscular Volume 89.3 80-100 fL Mean Corpuscular Hemoglobin 27.8 25-34 pg Mean Corpuscular Hemoglobin Concent 31.1 32-36 g/dl Platelet Count 196 130-400 K/uL Mean Platelet Volume 10.4 7.4-10.4 fL Neutrophils (%) (Auto) 77.2 % Lymphocytes (%) (Auto) 9.2 % Monocytes (%) (Auto) 12.1 % Eosinophils (%) (Auto) 0.7 % Basophils (%) (Auto) 0.2 % Neutrophils # (Auto) 6.91 1.4-6.5 K/uL Lymphocytes # (Auto) 0.82 1.2-3.4 K/uL Monocytes # (Auto) 1.08 0.11-0.59 K/uL Eosinophils # (Auto) 0.06 0-0.5 K/uL Basophils # (Auto) 0.02 0-0.2 K/uL RDW Standard Deviation 60.5 36.4-46.3 fL RDW Coefficient of Variation 18.7 11.5-14.5 % Immature Granulocyte % (Auto) 0.6 % Immature Granulocyte # (Auto) 0.05 0.00-0.02 K/uL Nucleated RBC Absolute Count (auto) 0.05 0-0 K/uL Nucleated Red Blood Cells % 0.6 % Spherocytes 1+ Prothrombin Time 10.0 9.0-12.0 SECONDS Prothromb Time International Ratio 0.9 0.9-1.1 Activated Partial Thromboplast Time 24.1 21.0-31.0 SECONDS Partial Thromboplastin Ratio 0.9 Sodium Level 138 136-145 mmol/L Potassium Level 2.9 3.5-5.1 mmol/L Chloride Level 94 98-107 mmol/L Carbon Dioxide Level 37 21-32 mmol/L Anion Gap 7.0 3-11 mmol/L Blood Urea Nitrogen 35 7-18 mg/dl Creatinine 2.30 0.60-1.40 mg/dl Est Creatinine Clear Calc Drug Dose 29.2 ml/min Estimated GFR () 28.7 Estimated GFR (Non- 24.8 BUN/Creatinine Ratio 15.2 10-20 Random Glucose 220 70-99 mg/dl Calcium Level 9.2 8.5-10.1 mg/dl Magnesium Level 2.8 1.8-2.4 mg/dl Total Bilirubin 0.5 0.2-1 mg/dl Aspartate Amino Transf (AST/SGOT) 18 15-37 U/L Alanine Aminotransferase (ALT/SGPT) 25 12-78 U/L Alkaline Phosphatase 108 45-117 U/L Troponin I < 0.015 0-0.045 ng/ml Total Protein 7.9 6.4-8.2 gm/dl Albumin 3.6 3.4-5.0 gm/dl Globulin 4.3 2.5-4.0 gm/dl Albumin/Globulin Ratio 0.8 0.9-2 Urine Color YELLOW Urine Appearance CLEAR CLEAR Urine pH 5.0 4.5-7.5 Urine Specific [place] 1.019 1.000-1.030 Urine Protein NEG NEG Urine Glucose (UA) NEG NEG Urine Ketones NEG NEG Urine Occult Blood 2+ NEG Urine Nitrite POS NEG Urine Bilirubin NEG NEG Urine Urobilinogen NEG NEG Urine Leukocyte Esterase MODERATE NEG Urine WBC (Auto) >30 0-5 /hpf Urine RBC (Auto) 10-30 0-4 /hpf Urine Hyaline Casts (Auto) 1-5 0-5 /lpf Urine Epithelial Cells (Auto) 0-5 0-5 /lpf Urine Bacteria (Auto) 2+ NEG Arterial Blood pH 7.47 7.35-7.45 Arterial Blood Partial Pressure CO2 47 35-46 mmHg Arterial Blood Partial Pressure O2 60 80-95 mm/Hg Arterial Blood HCO3 33 19-24 mmol/L Arterial Blood Oxygen Saturation 89.6 90-95 % Arterial Blood Base Excess 8.4 -9-1.8 mEq/L Arterial Blood Gas Delivery 2L Ramos Test POS POS Microbiology Results 03/01/17 Blood Culture, Received Pending 03/01/17 Blood Culture, Received Pending 03/01/17 Urine Culture, Received Pending Diagnostic Radiology SINGLE VIEW CHEST CLINICAL HISTORY: Dyspnea. FINDINGS: An AP, portable, upright chest radiograph is compared to chest x-ray and chest CT dated 11/07/2016. Correlation is made with chest CT dated 12/27/2016. The examination is degraded by portable technique and patient rotation. The heart is enlarged and there is atherosclerotic calcification of the thoracic aorta. The pulmonary vasculature is noncongested. Advanced emphysema and chronic interstitial thickening is similar to previous. Scattered calcified granulomas are observed. There there are mild airspace opacities in the left upper and right lower lungs. These appear improved from previous. No large pleural effusion or pneumothorax is seen. The skeletal structures are osteopenic. The bony thorax is grossly intact. IMPRESSION: 1. Cardiomegaly and emphysema. 2. There are mild bilateral airspace opacities which appear improved from recent prior studies. This likely represents resolving pneumonia. Continued radiographic follow-up to resolution is recommended. Electronically signed by: Terry Puente M.D. 03/01/2017 9:36 PM Dictated Date/Time: 03/01/2017 9:33 PM EKG Sinus rhythm with Premature atrial complexes 75 bpm Right bundle branch block Left anterior fascicular block Bifascicular block Impression Assessment and Plan 86 year old male with severe obstructive lung disease presents with chest pain, sweats and shortness of breath. Multifocal pneumonia - treat with cefepime. Given clinical improvement since the ER I do not feel it is necessary at this time to cover for MRSA despite previous nose sample positive. 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 I discussed the case with the resident and agree with the findings and plan as documented in the note. Any exceptions or clarifications are listed here: 86 y/o M hx COPD, aspiration PNM, CHF, recurrent UTIs - frequent hospital admissions Presented in respiratory distress - initailly requiring BIPAP - improved with Nebulizers - on an NC - no distress noted at time of admission OE AAO x 1 S1,2 R - faint No audible crackles/wheezing NT, ND Mild B/L edema P: Pts UA is + and he has been started on Cefepime pending culture results due to recent Pseudomonas infection Resp distress possibly due to COPD exacerbation as he improved with nebs alone - may have aspirated however which should be covered by Cefepime initially Will treat for COPD exacerbation and UTI primarily at present - pt stable on admission Above discussed with pt and Documented By: Joey Gross Level of Care Telemetry Advanced Directives Existing Living Will: Yes Existing Power of Terrazzo Supervisor: Yes () Resuscitation Status DO NOT RESUSCITATE (as per patient wishes) VTE Prophylaxis VTE Risk Assessment Done? Y/N: Yes Risk Level: Moderate Given or contraindicated: Unfractionated heparin SQ Additional Copies To Meir Whiteside DO; Milka at [facility] Resident Tracking Resident Involvement: Resident Care Provided Care Provided: Adult Hospital Medicine
[2017-03-02] MEDS ORDERED: INSULIN GLARGINE SOLOSTAR 100 UNITS/ML 3 ML PEN SC ONE (02:02)
[2017-03-02] MEDS: CEFEPIME IV 1,000 MG in DEXTROSE 5% 100ML 100 ML IV SCH (02:03)
[2017-03-02] MEDS: ALBUT/IPRATROP 3MG/0.5MG NEB 3 ML VIAL INH SCH ×4 (02:14→19:02)
[2017-03-02 02:20] LABS: HEMATOCRIT 38.3 % (42-52); MEAN CELL VOLUME 89.3 fL (80-100); MEAN CORPUSCULAR HEMOGLOBIN 27.3 pg (25-34); MEAN CORPUSCULAR HGB CONC 30.5 g/dl (32-36); MEAN PLATELET VOLUME 9.8 fL (7.4-10.4); PLATELET COUNT 171 K/uL (130-400); RED BLOOD COUNT 4.29 M/uL (4.7-6.1); WHITE BLOOD COUNT 6.81 K/uL (4.8-10.8)
[2017-03-02] MEDS ORDERED: PHARMACY GLYCEMIC MGMT CONSULT PRN (02:27)
[2017-03-02] MEDS ORDERED: INSULIN ASPART 100 UNITS/ML 3 ML PEN SC SCH ×4 (02:30→07:00)
[2017-03-02 02:39] LABS: BUN/CREATININE RATIO 15.7 (10-20); CALCIUM 8.4 mg/dl (8.5-10.1); CREATININE 2.2 mg/dl (0.60-1.40); MAGNESIUM 2.9 mg/dl (1.8-2.4); POTASSIUM 3.6 mmol/L (3.5-5.1)
[2017-03-02] MEDS: METHYLPREDNISOLONE IV 60 MG in SYRINGE 0 ML IV SCH ×4 (02:59→21:42)
[2017-03-02] MEDS ORDERED: INSULIN ASPART 100 UNITS/ML 3 ML PEN SC ONE (05:30)
[2017-03-02] MEDS: HEPARIN 25,000 UNIT/500ML D5W 500 ML IV PRN ×2 (05:42→21:46)
[2017-03-02] MEDS ORDERED: HEPARIN IV BOLUS 7,000 UNIT in SYRINGE 0 ML IV ONE (05:45)
[2017-03-02] MEDS ORDERED: HEPARIN SOD 5000 UNIT/0.5 ML CARP SQ SCH (06:00)
[2017-03-02] MEDS: AVODART - ORDER AWAITING ACTION SCH ×2 (07:43→14:46)
[2017-03-02] MEDS: CLOPIDOGREL BISULFATE 75 MG TAB PO SCH (07:48)
[2017-03-02] MEDS: DULOXETINE (CYMBALTA) 30 MG CAP PO SCH (07:48)
[2017-03-02] MEDS: PANTOprazole SOD 40 MG TAB PO SCH (07:48)
[2017-03-02] MEDS: ASPIRIN 81 MG CHEW PO SCH (07:49)
[2017-03-02] MEDS: BISACODYL 5 MG TABEC PO SCH ×2 (07:49→21:41)
[2017-03-02] MEDS: GABAPENTIN 800 MG TAB PO SCH ×2 (07:49→21:41)
[2017-03-02] MEDS: DOCUSATE SODIUM 100 MG CAP PO SCH ×2 (07:49→21:42)
[2017-03-02] MEDS: FLUDROCORTISONE ACETATE 0.1 MG TAB PO SCH ×2 (07:50→21:42)
[2017-03-02] MEDS: TORSEMIDE 20 MG TAB PO SCH (07:50)
[2017-03-02] MEDS: POTASSIUM CHLORIDE 20 MEQ TABCR PO SCH ×3 (07:51→21:42)
[2017-03-02] MEDS: MAGNESIUM OXIDE 400 MG TAB PO SCH ×2 (07:51→21:41)
[2017-03-02] MEDS: CALCIUM POLYCARBOPHIL 1 TAB PO SCH (07:51)
[2017-03-02] MEDS: GUAIFENESIN 600 MG TABCR PO SCH ×2 (07:51→21:41)
[2017-03-02] MEDS: FLUTICASONE/SALMETEROL 250/50 (ADVAIR) 14 PUFF/1 INHALER INH SCH ×2 (07:52→21:41)
[2017-03-02] MEDS: OXYCODONE HCL 15 MG TABCR (OXYCONTIN) PO SCH ×2 (08:07→21:41)
[2017-03-02] MEDS: LIDODERM (LIDOCAINE) PATCH 5% TD SCH (08:07)
[2017-03-02] MEDS: FLUTICASONE PROPIONATE NA SPR 16 GM BTL SCH (08:07)
[2017-03-02] MEDS ORDERED: HYDROCORTISONE 10 MG TAB PO SCH (09:00)
[2017-03-02] MEDS ORDERED: INSULIN GLARGINE SC SCH (09:00)
[2017-03-02] MEDS ORDERED: INSULIN GLARGINE SOLOSTAR 100 UNITS/ML 3 ML PEN SC SCH (09:00)
--- NOTE | 2017-03-02 10:20 | DIAGNOSTIC IMAGING REPORT ---
BILATERAL LOWER EXTREMITY VENOUS DOPPLER CLINICAL HISTORY: Bilateral calf pain, edema worse on right, elevated d dimer ?DVT COMPARISON STUDY: Bilateral lower extremity venous Doppler July 31, 2014. TECHNIQUE: Sonography of the deep venous system of the bilateral lower extremities was performed. Compression and augmentation were evaluated. FINDINGS: Note was made of thrombus within the mid to distal right popliteal vein. This thrombus was nearly occlusive. The vessel was mildly expanded. There may be minimal thrombus within the right posterior tibial vein as well. The left common femoral, superficial femoral and popliteal veins were compressible. Augmentation was normal. Flow was shown within the deep calf vessels. IMPRESSION: 1. Deep venous thrombus within the right popliteal vein which is likely acute. Suspected minimal thrombus within the right posterior tibial vein. 2. No evidence of deep venous thrombus within the left lower extremity. Electronically signed by: Arcenio Mejia M.D. 03/02/2017 10:19 AM Dictated Date/Time: 03/02/2017 10:17 AM
[2017-03-02] MEDS ORDERED: INSULIN HUMAN REGULAR IV BOLUS 2.5 UNIT in SYRINGE 0 ML IV SCH (11:00)
[2017-03-02] MEDS ORDERED: INSULIN REGULAR 250 UNITS in SODIUM CHLORIDE 0.9% 250ML 250 ML IV SCH (11:00)
[2017-03-02 12:05] LABS: PARTIAL THROMBOPLASTIN RATIO 2.6
[2017-03-02] MEDS: INSULIN ASPART 100 UNITS/ML 3 ML PEN SC SCH ×3 (12:12→20:49)
--- NOTE | 2017-03-02 15:02 | Pharmacy Progress Note ---
Glycemic Control Intl Consult Date of Service Mar 02, 2017. Scope Glycemic Pharmacist consulted by Dr Pichardo on 03/02/2017 for glycemic control and to write orders per [facility] inpatient glycemic control protocol Objective Weight (Kilograms): 100.500 Accuchecks BSG (last 24hrs): Test 03/01/17 21:30 03/02/17 02:08 03/02/17 02:10 03/02/17 05:03 Random Glucose 220 mg/dl (70-99) 257 mg/dl (70-99) Bedside Glucose 287 mg/dl (70-99) 259 mg/dl (70-99) Test 03/02/17 07:06 03/02/17 10:49 03/02/17 13:16 Bedside Glucose 260 mg/dl (70-99) 301 mg/dl (70-99) 170 mg/dl (70-99) Laboratory Data (last 24hrs) Test 03/01/17 21:30 03/02/17 02:08 Anion Gap 7.0 mmol/L 6.0 mmol/L BUN/Creatinine Ratio 15.2 15.7 Blood Urea Nitrogen 35 mg/dl 35 mg/dl Creatinine 2.30 mg/dl 2.20 mg/dl Potassium Level 2.9 mmol/L 3.6 mmol/L Sodium Level 138 mmol/L 138 mmol/L White Blood Count 8.94 K/uL 6.81 K/uL Red Blood Count 4.86 M/uL Hemoglobin 13.5 g/dL Hematocrit 43.4 % Mean Corpuscular Volume 89.3 fL Mean Corpuscular Hemoglobin 27.8 pg Mean Corpuscular Hemoglobin Concent 31.1 g/dl Platelet Count 196 K/uL Mean Platelet Volume 10.4 fL Neutrophils (%) (Auto) 77.2 % Lymphocytes (%) (Auto) 9.2 % Monocytes (%) (Auto) 12.1 % Eosinophils (%) (Auto) 0.7 % Basophils (%) (Auto) 0.2 % Neutrophils # (Auto) 6.91 K/uL Lymphocytes # (Auto) 0.82 K/uL Monocytes # (Auto) 1.08 K/uL Eosinophils # (Auto) 0.06 K/uL Basophils # (Auto) 0.02 K/uL Recent Pertinent Medications Outpatient Anti-diabetic Regimen: * Lantus 55 units HS plus Novolog 70/30 20 units in AM and 5 units in PM. * A1c = 8.8 % 01/22/17 The patient is currently receiving: * Basal insulin: Lantus 26 units every 12 hours * Correctional Insulin: Novolog Correction per scale ACHS Goal Range: Low 110 mg/dL - High 140 mg/dL Correction Factor: 15 mg/dL/unit * Prandial insulin: Per carb ratio of 1 unit per 5 grams CHO consumed Risk Factors for Insulin Resistance: * Steroids: Solu-Medrol 40 mg IV q6 hours * Infection: possible HAP on cefepime * IV Fluids: heparin @ 31 mLs/hr * Diet: type 2 diabetic diet Assessment & Plan ASSESSMENT: * ADA & AACE recommend a goal blood sugar range 140-180 mg/dl for the majority of critically ill & non-critically ill patients. However, more stringent targets may be selected in individual cases. * Mr Enciso is an 86 y/o M admitted on 03/01/17 for possible COPD exacerbation vs HAP. 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 He is chronically on steroids- hydrocortisone 40 mg PO BID. Initially, the patient received Solu-Medrol 80 mg IV x1 then 60 mg IV q6 hours. On admission, the patient's blood sugar was elevated at 287 mg/dL. It remained elevated throughout the night with 18 units total of Novolog given. Lantus 25 units was given in the morning. * With lunch, the patient's blood sugar was 301 mg/dL. Due to steroids and the patient's elevated A1C as an outpatient, an insulin infusion was started to prevent an insulin stacking. Lantus will be continued to create an easier transition to subcutaneous isulin. PLAN FOR INPATIENT GLYCEMIC CONTROL: * Starting IV insulin infusion per moderate stress protocol * Goal Range 140 - 180 mg/dl * In the critical care setting, continuous IV insulin infusion has been shown to be the best method for achieving glycemic targets. * Holding outpatient oral diabetes medications * Basal insulin with LANTUS 20 units SQ BID * Please note that the plan above was derived based on current level of insulin resistance and hospital stress. These recommendations are appropriate for inpatient admission only. Plan of care upon discharge will need to be reassessed to avoid potential outpatient hypo/hyperglycemia. Thank you.
--- NOTE | 2017-03-02 17:39 | Family Medicine Progress Note ---
Progress Note Date of Service Mar 02, 2017. Subjective Pt evaluation today including: conversation w/ patient, conversation w/ family , physical exam, chart review, lab review, review of studies Initially found pt on morning rounds sleeping soundly. Spoke with him and family later in afternoon, awake, alert, easily conversational in full sentences , and appears in NAD. Was not on any supplemental oxygen at that time. Says he 's feeling "pretty good". However, family says since 16Aug he's been more "shaky" and "dizzy". Pt then says he's felt this way on waking up and it remains throughout the day, improving somewhat in the afternoons, but not resolving. No change in feeling on movement of head/body. Does not describe room spinning. Denies any particular MIJARES, difficulty with speaking or swallowing or extremity movement / numbness / tingling acutely. Only other acute c/o is some left arm soreness (family attributes to venous access). No other acute c/o. Medications Current Inpatient Medications Medications (Trade) Dose Ordered Sig/Cole Route Start Time Stop Time Status Last Admin Dose Admin Aspirin (Aspirin Chew) 81 mg DAILY PO 03/02/17 09:00 04/01/17 08:59 03/02/17 07:49 81 MG Atenolol (Tenormin Tab) 12.5 mg DAILY PO 03/02/17 09:00 04/01/17 08:59 03/02/17 07:53 12.5 MG Atorvastatin Calcium (Lipitor Tab) 20 mg HS PO 03/02/17 21:00 04/01/17 20:59 Bisacodyl (Dulcolax Tab) 5 mg BID PO 03/02/17 09:00 04/01/17 08:59 03/02/17 07:49 5 MG Calcium Polycarbophil (Fibercon Tab) 1 tab DAILY PO 03/02/17 09:00 04/01/17 08:59 03/02/17 07:51 1 TAB Clopidogrel Bisulfate (plAVix TAB) 75 mg DAILY PO 03/02/17 09:00 04/01/17 08:59 03/02/17 07:48 75 MG Docusate Sodium (coLACE CAP) 100 mg BID PO 03/02/17 09:00 04/01/17 08:59 03/02/17 07:49 100 MG Duloxetine HCl (Cymbalta Cap) 30 mg DAILY PO 03/02/17 09:00 04/01/17 08:59 03/02/17 07:48 30 MG Famotidine (Pepcid Tab) 20 mg HS PO 03/02/17 21:00 04/01/17 20:59 Fludrocortisone Acetate (Florinef Tab) 0.1 mg BID PO 03/02/17 09:00 04/01/17 08:59 03/02/17 07:50 0.1 MG Salmeterol Xinafoate/ Fluticasone (Advair Diskus 250/50 Inh) 1 puff BID INH 03/02/17 09:00 04/01/17 08:59 03/02/17 07:52 1 PUFF Fluticasone Propionate (Flonase Nasal [place]) 2 sprays DAILY NA 03/02/17 09:00 04/01/17 08:59 Gabapentin (Neurontin Tab) 800 mg BID PO 03/02/17 09:00 04/01/17 08:59 03/02/17 07:49 800 MG Guaifenesin (Mucinex Contr Rel Tab) 1,200 mg Q12 PO 03/02/17 09:00 04/01/17 08:59 03/02/17 07:51 1,200 MG Levalbuterol (Xopenex 0.63 Mg/ 3 Ml Neb) 3 mg Q4 PRN INH 03/02/17 00:00 04/01/17 00:00 Lidocaine (Lidoderm Patch 5%) 1 patch QAM TD 03/02/17 09:00 04/01/17 08:59 03/02/17 08:07 1 PATCH Lorazepam (Ativan Tab) 0.5 mg Q4 PRN PO 03/02/17 00:00 04/01/17 00:00 Magnesium Oxide (Mag-Ox Tab) 400 mg BID PO 03/02/17 09:00 04/01/17 08:59 03/02/17 07:51 400 MG Methenamine Hippurate (Urex Tab) 1 gm HS PO 03/02/17 21:00 03/07/17 20:59 Oxycodone HCl (Oxycontin Tab) 15 mg Q12 PO 03/02/17 09:00 03/16/17 08:59 03/02/17 08:07 15 MG Potassium Chloride (Klor-Con Tab) 40 meq TID PO 03/02/17 09:00 04/01/17 08:59 03/02/17 14:53 40 MEQ Simethicone (Mylicon Chew Tab) 80 mg QID PRN PO 03/02/17 00:00 04/01/17 00:00 Tamsulosin HCl (Flomax Cap) 0.4 mg HS PO 03/02/17 21:00 04/01/17 20:59 Torsemide (Demadex Tab) 60 mg QAM PO 03/02/17 09:00 04/01/17 08:59 03/02/17 07:50 60 MG Miscellaneous Information (Order Awaiting Action) 1 ea QS N/A 03/02/17 08:00 04/01/17 07:59 Artificial Tears (Artificial Tears) 1 drops BID OPB 03/03/17 09:00 04/02/17 08:59 Miscellaneous (Remove Lidoderm Patch) 1 ea DAILY@21 N/A 03/02/17 21:00 04/01/17 20:59 Albuterol/ Ipratropium (Duoneb) 3 ml Q6R INH 03/02/17 03:00 04/01/17 02:59 03/02/17 14:22 3 ML Methylprednisolone Sodium Succinate 60 mg/Syringe 0.96 ml @ 1.5 mls/min Q6H IV 03/02/17 04:00 04/01/17 03:59 03/02/17 16:20 1.5 MLS/MIN Cefepime HCl 1000 mg/Dextrose 111.3 ml @ 200 mls/hr DAILY@0200 IV 03/02/17 02:00 03/12/17 01:59 03/02/17 02:03 200 MLS/HR Acetaminophen (Tylenol Tab) 650 mg Q4H PRN PO 03/02/17 00:00 04/01/17 00:00 Al Hydrox/Mg Hydrox/Simethicone (Maalox Max Susp) 15 ml Q4H PRN PO 03/02/17 00:00 04/01/17 00:00 Magnesium Hydroxide (Milk Of Magnesia Susp) 30 ml Q12H PRN PO 03/02/17 00:00 04/01/17 00:00 Zolpidem Tartrate (Ambien Tab) 5 mg HSZ PRN PO 03/02/17 00:00 04/01/17 00:00 Ondansetron HCl (Zofran Inj) 4 mg Q6H PRN IV 03/02/17 00:00 04/01/17 00:00 Nitroglycerin (Nitrostat Tab) 0.4 mg UD PRN SL 03/02/17 00:00 04/01/17 00:00 Morphine Sulfate (MoRPHine SULFATE INJ) 2 mg Q30M PRN IV 03/02/17 00:00 03/16/17 00:00 Polyethylene (Miralax Powder Packet) 17 gm DAILY PRN PO 03/02/17 00:00 04/01/17 00:00 Glucose (Glucose 40% Gel) 15-30 GRAMS 15 GRAMS... UD PRN PO 03/02/17 01:45 04/01/17 01:44 Glucose (Glucose Chew Tab) 4-8 Tablets 4 Tabl... UD PRN PO 03/02/17 01:45 04/01/17 01:44 Dextrose (Dextrose 50% 50ML Syringe) 25-50ML OF 50% DW IV FOR... UD PRN IV 03/02/17 01:45 04/01/17 01:44 Glucagon (Glucagon Inj) 1 mg UD PRN SQ 03/02/17 01:45 04/01/17 01:44 Cefepime HCl (Consult) 1 ea UD PRN N/A 03/02/17 01:45 04/01/17 01:44 Pantoprazole Sodium (Protonix Tab) 40 mg QAM PO 03/02/17 09:00 04/01/17 08:59 03/02/17 07:48 40 MG Miscellaneous Information (Consult Glycemic Management Pharmacy) 1 ea UD PRN N/A 03/02/17 02:27 04/01/17 02:26 Heparin Sodium/ Dextrose 500 ml @ 31 mls/hr Q16H8M PRN IV 03/02/17 05:30 04/01/17 05:29 03/02/17 05:42 31 MLS/HR Insulin Human Regular 250 units/ Sodium Chloride 252.5 ml @ 0 mls/hr DAILY@1130 IV 03/02/17 11:00 04/01/17 10:59 03/02/17 12:10 2.5 MLS/HR Insulin Aspart (novoLOG ASPART) SLIDING SCALE PCHS ID 03/02/17 12:00 04/01/17 11:59 03/02/17 17:11 5 UNITS Insulin Glargine (Lantus Vial) 20 units BID SC 03/02/17 21:00 04/01/17 20:59 Warfarin Sodium (Coumadin Tab) 5 mg DAILY@16 PO 03/03/17 16:00 04/02/17 15:59 UNV Objective Vital Signs Date Time Temp Pulse Resp B/P (MAP) Pulse Ox O2 Delivery O2 Flow Rate FiO2 03/02/17 16:03 36.4 60 20 106/66 (79) 93 Room Air 03/02/17 16:00 92 Nasal Cannula 2.5 03/02/17 14:23 59 16 92 Room Air 03/02/17 12:00 92 Nasal Cannula 2.5 03/02/17 10:46 36.7 56 20 116/73 (87) 97 Nasal Cannula 3.0 03/02/17 08:00 91 Nasal Cannula 2.5 03/02/17 07:46 36.7 76 20 113/70 (84) 98 Nasal Cannula 3.0 03/02/17 07:33 58 16 97 Nasal Cannula 3.0 03/02/17 04:00 91 Nasal Cannula 2.5 03/02/17 03:37 36.8 61 16 110/69 (83) 91 Nasal Cannula 2.5 03/02/17 02:15 60 14 93 Nasal Cannula 2.0 03/02/17 01:20 37.7 62 14 111/68 96 Nasal Cannula 2.5 03/02/17 01:03 65 20 96/65 93 Room Air 03/01/17 23:52 69 22 104/66 92 Nasal Cannula 2.0 03/01/17 22:45 69 18 116/62 93 Nasal Cannula 2.0 03/01/17 21:45 75 20 106/63 95 Nasal Cannula 2.0 03/01/17 21:12 96 Nasal Cannula 2.0 03/01/17 21:06 73 03/01/17 21:06 37.4 76 22 121/72 88 Room Air 03/01/17 21:06 88 Room Air 03/01/17 21:00 96 Nasal Cannula 2.0 03/01/17 21:00 96 Nasal Cannula 2.0 Physical Exam General Appearance: WD/WN, no apparent distress Neck: supple Respiratory/Chest: + crackles (at right base), + wheezing (mostly lower rangel on expiration) Cardiovascular: regular rate, rhythm Abdomen: normal bowel sounds, non tender, soft Extremities: + pedal edema (1+ edema in right leg) 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: investigation lieutenant II-XII nml as tested, no motor/sensory deficits ( grossly), alert Notes: - Ball cath in place, no gross hematuria Laboratory Results 03/02/17 02:08 03/02/17 02:08 Test 03/01/17 21:30 03/01/17 22:20 03/01/17 22:44 03/02/17 02:08 Immature Granulocyte % (Auto) 0.6 % White Blood Count 8.94 K/uL (4.8-10.8) Red Blood Count 4.86 M/uL (4.7-6.1) 4.29 M/uL (4.7-6.1) Hemoglobin 13.5 g/dL (14.0-18.0) Hematocrit 43.4 % (42-52) Mean Corpuscular Volume 89.3 fL (80-100) 89.3 fL (80-100) Mean Corpuscular Hemoglobin 27.8 pg (25-34) 27.3 pg (25-34) Mean Corpuscular Hemoglobin Concent 31.1 g/dl (32-36) 30.5 g/dl (32-36) Platelet Count 196 K/uL (130-400) Mean Platelet Volume 10.4 fL (7.4-10.4) 9.8 fL (7.4-10.4) Neutrophils (%) (Auto) 77.2 % Lymphocytes (%) (Auto) 9.2 % Monocytes (%) (Auto) 12.1 % Eosinophils (%) (Auto) 0.7 % Basophils (%) (Auto) 0.2 % Neutrophils # (Auto) 6.91 K/uL (1.4-6.5) Lymphocytes # (Auto) 0.82 K/uL (1.2-3.4) Monocytes # (Auto) 1.08 K/uL (0.11-0.59) Eosinophils # (Auto) 0.06 K/uL (0-0.5) Basophils # (Auto) 0.02 K/uL (0-0.2) Immature Granulocyte # (Auto) 0.05 K/uL (0.00-0.02) Spherocytes 1+ Prothrombin Time 10.0 SECONDS (9.0-12.0) Prothromb Time International Ratio 0.9 (0.9-1.1) Total Bilirubin 0.5 mg/dl (0.2-1) Aspartate Amino Transf (AST/SGOT) 18 U/L (15-37) Alanine Aminotransferase (ALT/SGPT) 25 U/L (12-78) Alkaline Phosphatase 108 U/L (45-117) Total Protein 7.9 gm/dl (6.4-8.2) Albumin 3.6 gm/dl (3.4-5.0) Globulin 4.3 gm/dl (2.5-4.0) Albumin/Globulin Ratio 0.8 (0.9-2) Urine Color YELLOW Urine Appearance CLEAR (CLEAR) Urine pH 5.0 (4.5-7.5) Urine Specific [place] 1.019 (1.000-1.030) Urine Protein NEG (NEG) Urine Glucose (UA) NEG (NEG) Urine Ketones NEG (NEG) Urine Occult Blood 2+ (NEG) Urine Nitrite POS (NEG) Urine Bilirubin NEG (NEG) Urine Urobilinogen NEG (NEG) Urine Leukocyte Esterase MODERATE (NEG) Urine WBC (Auto) >30 /hpf (0-5) Urine RBC (Auto) 10-30 /hpf (0-4) Urine Hyaline Casts (Auto) 1-5 /lpf (0-5) Urine Epithelial Cells (Auto) 0-5 /lpf (0-5) Urine Bacteria (Auto) 2+ (NEG) Arterial Blood pH 7.47 (7.35-7.45) Arterial Blood Partial Pressure CO2 47 mmHg (35-46) Arterial Blood Partial Pressure O2 60 mm/Hg (80-95) Arterial Blood HCO3 33 mmol/L (19-24) Arterial Blood Oxygen Saturation 89.6 % (90-95) Arterial Blood Base Excess 8.4 mEq/L (-9-1.8) Arterial Blood Gas Delivery 2L Ramos Test POS (POS) RDW Standard Deviation 59.6 fL (36.4-46.3) RDW Coefficient of Variation 18.8 % (11.5-14.5) Nucleated RBC Absolute Count (auto) 0.02 K/uL (0-0) Nucleated Red Blood Cells % 0.3 % D-Dimer 870 ug/L FEU (0-500) Anion Gap 6.0 mmol/L (3-11) Est Creatinine Clear Calc Drug Dose 30.5 ml/min Estimated GFR () 30.3 Estimated GFR (Non- 26.2 BUN/Creatinine Ratio 15.7 (10-20) Calcium Level 8.4 mg/dl (8.5-10.1) Magnesium Level 2.9 mg/dl (1.8-2.4) Test 03/02/17 07:14 03/02/17 11:40 03/02/17 17:05 Troponin I < 0.015 ng/ml (0-0.045) Activated Partial Thromboplast Time 66.7 SECONDS (21.0-31.0) Partial Thromboplastin Ratio 2.6 Bedside Glucose 253 mg/dl (70-99) Date/Time Source Procedure Growth Status 03/02/17 03:05 Nasal MRSA DNA Surveillance Screen - Final Specimen Positive for MRSA by DNA Probe Complete Assessment and Plan ## SOB, hx COPD and end-stage lung disease - Tx as COPD exacerbation - Methylprednisone 60 mg IV q6h. Likely transition to PO in AM if continues to improve. - Duonebs - Advair ## PNA - Placed on cefepime. [ ] BCx x2 from 19Aug pending. - MRSA nose swab 19Aug was negative. - Holding IVF considering hx diastolic heart failure. ## UTI (on labs) - Recent pseudomonas infection. On cefepime 1gm here. [ ] UCx from 18Aug pending. ## New concern for dizziness - Reportedly began on 16Aug. Same at rest and with movement. - No focal neuro deficits on exam. Doubt ICH (would likely have worsened sx due to the heparin throughout the day). If thrombotic issue, is being tx'ed with heparin and coumadin separately. [ ] Will reassess in am 20Aug, consider MRI head at that time if sx persist. ## Hypokalemia - PO KCL here overnight (19Aug) ## Leg pain, reportedly new - D-dimer overnight 870. U/s of (B)LE showed right popliteal DVT, likely acute. - On heparin. Pt amenable to starting anticoagulation. Rx'ed coumadin 5 mg ( start 19Aug). ## CAD / Chronic diastolic heart failure - Atorvastatin, ASA 81, Plavix, Atenolol - Likely not on TEODORO-I or ARB due to renal function. 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 Discussed idea of going on insulin drip if necessary (likely due to the steroids for COPD tx) with attending early this am (19Aug), he agreed. DVT prophy: On heparin for dx'ed DVT Code status: DNR Discussed with attending on rounds and throughout the day. ALVINO, PGY1 [employer] Member Physician Supervision Note: I was present with Dr. Torres during the history and exam. I discussed the case with the resident and agree with the findings and plan as documented in the note. Any exceptions or clarifications are listed here: Patient states he feels much improved this afternoon. He was an overnight admission and as such slept most of the morning. He is eating his evening meal and states that his breathing is much better. Denies any chest pain. The arm pain he described previously has resolved. He does mention a dizziness that has been present since Saturday of last week; although this does not seem to be too bothersome to him. He does have a lower extremity DVT. He could also have a PE - although his creatinine would prohibit a CT scan - a VQ scan would be an option although the presence of a PE would not change treatment at this point. He is currently on therapeutic heparin infusion. Dr. Haddad and I discussed the need for anticoagulation - and the patient was agreeable to starting warfarin. He does have a history of atrial fibrillation but had previously declined anticoagulation for embolic prevention - although with the knowledge that he currently has a venous thromboembolism, he is agreeable to Coumadin. With his elevated creatinine, a novel agent may be difficult; since he is in a senior care setting, management of the INRs should be fairly easy. IMPRESSION 1) COPD exacerbation 2) pneumonia 3) DVT 4) CKD 5) Hypokalemia, resolved PLAN 1) continue current antibiotics pending cultures 2) therapeutic heparin infusion 3) start warfarin tonight 4) consider conversion of IV steroids to by mouth steroids tomorrow if he continues to improve 5) monitor CBC and BMP Documented By: Jaguar Whaley Resident Tracking Resident Involvement: Resident Care Provided Care Provided: Adult Hospital Medicine (rounds)
[2017-03-02] MEDS ORDERED: WARFARIN SOD 1 MG TAB PO ONE (18:00)
[2017-03-02] MEDS: WARFARIN SOD 5 MG TAB PO SCH (18:21)
[2017-03-02] MEDS ORDERED: INSULIN GLARGINE SQ SCH (21:00)
[2017-03-02] MEDS: TAMSULOSIN HCL 0.4 MG CAP PO SCH (21:41)
[2017-03-02] MEDS: FAMOTIDINE 20 MG TAB PO SCH (21:41)
[2017-03-02] MEDS: METHENAMINE HIPPURATE 1 GM TAB PO SCH (21:41)
[2017-03-02] MEDS: ATORVASTATIN 20 MG TAB PO SCH (21:42)
[2017-03-02] MEDS: INSULIN GLARGINE SC SCH (21:46)
[2017-03-02] MEDS: POLYETHYLENE (MIRALAX) 17 GM PACK PO PRN (21:59)
[2017-03-03] VITALS (9 sets, daily range): BP systolic 112–136; BP diastolic 67–78; PULSE 60–83; TEMP 36.5–36.8; O2SAT 90–95
[2017-03-03] MEDS: ALBUT/IPRATROP 3MG/0.5MG NEB 3 ML VIAL INH SCH ×4 (01:48→18:49)
[2017-03-03] MEDS: CEFEPIME IV 1,000 MG in DEXTROSE 5% 100ML 100 ML IV SCH (02:13)
[2017-03-03] MEDS: METHYLPREDNISOLONE IV 60 MG in SYRINGE 0 ML IV SCH ×2 (04:49→08:28)
[2017-03-03] MEDS: AVODART - ORDER AWAITING ACTION SCH ×3 (08:00→16:00)
[2017-03-03 08:05] LABS: BUN/CREATININE RATIO 22.1 (10-20); CALCIUM 8.7 mg/dl (8.5-10.1); CREATININE 1.9 mg/dl (0.60-1.40); POTASSIUM 3.3 mmol/L (3.5-5.1)
[2017-03-03] MEDS: CLOPIDOGREL BISULFATE 75 MG TAB PO SCH (08:06)
[2017-03-03] MEDS: FLUTICASONE PROPIONATE NA SPR 16 GM BTL SCH (08:06)
[2017-03-03] MEDS: FLUTICASONE/SALMETEROL 250/50 (ADVAIR) 14 PUFF/1 INHALER INH SCH ×2 (08:06→22:32)
[2017-03-03] MEDS: GUAIFENESIN 600 MG TABCR PO SCH ×2 (08:07→22:35)
[2017-03-03] MEDS: PANTOprazole SOD 40 MG TAB PO SCH (08:07)
[2017-03-03] MEDS: CALCIUM POLYCARBOPHIL 1 TAB PO SCH (08:07)
[2017-03-03] MEDS: TORSEMIDE 20 MG TAB PO SCH (08:08)
[2017-03-03] MEDS: DULOXETINE (CYMBALTA) 30 MG CAP PO SCH (08:08)
[2017-03-03] MEDS: GABAPENTIN 800 MG TAB PO SCH ×2 (08:09→22:34)
[2017-03-03] MEDS: DOCUSATE SODIUM 100 MG CAP PO SCH ×2 (08:09→22:36)
[2017-03-03] MEDS: POTASSIUM CHLORIDE 20 MEQ TABCR PO SCH ×3 (08:10→22:38)
[2017-03-03] MEDS: MAGNESIUM OXIDE 400 MG TAB PO SCH ×2 (08:10→22:35)
[2017-03-03] MEDS: FLUDROCORTISONE ACETATE 0.1 MG TAB PO SCH ×2 (08:10→22:33)
[2017-03-03] MEDS: LIDODERM (LIDOCAINE) PATCH 5% TD SCH (08:11)
[2017-03-03] MEDS: INSULIN GLARGINE SC SCH ×2 (08:15→22:41)
[2017-03-03] MEDS: INSULIN ASPART 100 UNITS/ML 3 ML PEN SC SCH ×4 (08:15→22:42)
[2017-03-03] MEDS: OXYCODONE HCL 15 MG TABCR (OXYCONTIN) PO SCH ×2 (08:17→22:32)
[2017-03-03] MEDS: ASPIRIN 81 MG CHEW PO SCH (08:27)
[2017-03-03] MEDS: BISACODYL 5 MG TABEC PO SCH ×2 (08:27→22:47)
[2017-03-03] MEDS: ARTIFICIAL TEARS OP SOLN OPB SCH ×4 (08:28→21:00)
[2017-03-03] MEDS: POLYETHYLENE (MIRALAX) 17 GM PACK PO PRN ×2 (08:46→22:59)
[2017-03-03] MEDS: HEPARIN 25,000 UNIT/500ML D5W 500 ML IV PRN (14:08)
--- NOTE | 2017-03-03 14:15 | Family Medicine Progress Note ---
Progress Note Date of Service Mar 03, 2017. Subjective Pt evaluation today including: conversation w/ patient, physical exam, chart review, lab review, review of studies Pt says he had no acute issues overnight. Says he remains dizzy, now sometimes with interval resolution and sometimes with room "spinning", but still doesn't feel like his baseline self due to this dizziness. C/o bilateral frontal MIJARES behind his eyes as well but denies acute vision changes. Says his breathing has much improved, now feels like his baseline at home. Leg pain has also resolved. He denies any other acute concerns. Constitutional: No fever Eyes: No worsening of vision Respiratory: No cough, No sputum Cardiovascular: + edema, No chest pain Abdomen: No nausea, No vomiting Musculoskeletal: No calf pain Medications Current Inpatient Medications Medications (Trade) Dose Ordered Sig/Cole Route Start Time Stop Time Status Last Admin Dose Admin Aspirin (Aspirin Chew) 81 mg DAILY PO 03/02/17 09:00 04/01/17 08:59 03/03/17 08:27 81 MG Atenolol (Tenormin Tab) 12.5 mg DAILY PO 03/02/17 09:00 04/01/17 08:59 03/03/17 08:06 12.5 MG Atorvastatin Calcium (Lipitor Tab) 20 mg HS PO 03/02/17 21:00 04/01/17 20:59 03/02/17 21:42 20 MG Bisacodyl (Dulcolax Tab) 5 mg BID PO 03/02/17 09:00 04/01/17 08:59 03/03/17 08:27 5 MG Calcium Polycarbophil (Fibercon Tab) 1 tab DAILY PO 03/02/17 09:00 04/01/17 08:59 03/03/17 08:07 1 TAB Clopidogrel Bisulfate (plAVix TAB) 75 mg DAILY PO 03/02/17 09:00 04/01/17 08:59 03/03/17 08:06 75 MG Docusate Sodium (coLACE CAP) 100 mg BID PO 03/02/17 09:00 04/01/17 08:59 03/03/17 08:09 100 MG Duloxetine HCl (Cymbalta Cap) 30 mg DAILY PO 03/02/17 09:00 04/01/17 08:59 03/03/17 08:08 30 MG Famotidine (Pepcid Tab) 20 mg HS PO 03/02/17 21:00 04/01/17 20:59 03/02/17 21:41 20 MG Fludrocortisone Acetate (Florinef Tab) 0.1 mg BID PO 03/02/17 09:00 04/01/17 08:59 03/03/17 08:10 0.1 MG Salmeterol Xinafoate/ Fluticasone (Advair Diskus 250/50 Inh) 1 puff BID INH 03/02/17 09:00 04/01/17 08:59 03/03/17 08:06 1 PUFF Fluticasone Propionate (Flonase Nasal [place]) 2 sprays DAILY NA 03/02/17 09:00 04/01/17 08:59 03/03/17 08:06 2 SPRAYS Gabapentin (Neurontin Tab) 800 mg BID PO 03/02/17 09:00 04/01/17 08:59 03/03/17 08:09 800 MG Guaifenesin (Mucinex Contr Rel Tab) 1,200 mg Q12 PO 03/02/17 09:00 04/01/17 08:59 03/03/17 08:07 1,200 MG Levalbuterol (Xopenex 0.63 Mg/ 3 Ml Neb) 3 mg Q4 PRN INH 03/02/17 00:00 04/01/17 00:00 Lidocaine (Lidoderm Patch 5%) 1 patch QAM TD 03/02/17 09:00 04/01/17 08:59 03/03/17 08:11 1 PATCH Lorazepam (Ativan Tab) 0.5 mg Q4 PRN PO 03/02/17 00:00 04/01/17 00:00 Magnesium Oxide (Mag-Ox Tab) 400 mg BID PO 03/02/17 09:00 04/01/17 08:59 03/03/17 08:10 400 MG Methenamine Hippurate (Urex Tab) 1 gm HS PO 03/02/17 21:00 03/07/17 20:59 03/02/17 21:41 1 GM Oxycodone HCl (Oxycontin Tab) 15 mg Q12 PO 03/02/17 09:00 03/16/17 08:59 03/03/17 08:17 15 MG Potassium Chloride (Klor-Con Tab) 40 meq TID PO 03/02/17 09:00 04/01/17 08:59 03/03/17 12:27 40 MEQ Simethicone (Mylicon Chew Tab) 80 mg QID PRN PO 03/02/17 00:00 04/01/17 00:00 Tamsulosin HCl (Flomax Cap) 0.4 mg HS PO 03/02/17 21:00 04/01/17 20:59 03/02/17 21:41 0.4 MG Torsemide (Demadex Tab) 60 mg QAM PO 03/02/17 09:00 04/01/17 08:59 03/03/17 08:08 60 MG Miscellaneous Information (Order Awaiting Action) 1 ea QS N/A 03/02/17 08:00 04/01/17 07:59 Artificial Tears (Artificial Tears) 1 drops BID OPB 03/03/17 09:00 04/02/17 08:59 03/03/17 08:28 1 DROPS Miscellaneous (Remove Lidoderm Patch) 1 ea DAILY@21 N/A 03/02/17 21:00 04/01/17 20:59 03/02/17 21:00 1 EA Albuterol/ Ipratropium (Duoneb) 3 ml Q6R INH 03/02/17 03:00 04/01/17 02:59 03/03/17 06:56 3 ML Cefepime HCl 1000 mg/Dextrose 111.3 ml @ 200 mls/hr DAILY@0200 IV 03/02/17 02:00 03/12/17 01:59 03/03/17 02:13 200 MLS/HR Acetaminophen (Tylenol Tab) 650 mg Q4H PRN PO 03/02/17 00:00 04/01/17 00:00 Al Hydrox/Mg Hydrox/Simethicone (Maalox Max Susp) 15 ml Q4H PRN PO 03/02/17 00:00 04/01/17 00:00 Magnesium Hydroxide (Milk Of Magnesia Susp) 30 ml Q12H PRN PO 03/02/17 00:00 04/01/17 00:00 Zolpidem Tartrate (Ambien Tab) 5 mg HSZ PRN PO 03/02/17 00:00 04/01/17 00:00 Ondansetron HCl (Zofran Inj) 4 mg Q6H PRN IV 03/02/17 00:00 04/01/17 00:00 Nitroglycerin (Nitrostat Tab) 0.4 mg UD PRN SL 03/02/17 00:00 04/01/17 00:00 Morphine Sulfate (MoRPHine SULFATE INJ) 2 mg Q30M PRN IV 03/02/17 00:00 03/16/17 00:00 Polyethylene (Miralax Powder Packet) 17 gm DAILY PRN PO 03/02/17 00:00 04/01/17 00:00 03/03/17 08:46 17 GM Glucose (Glucose 40% Gel) 15-30 GRAMS 15 GRAMS... UD PRN PO 03/02/17 01:45 04/01/17 01:44 Glucose (Glucose Chew Tab) 4-8 Tablets 4 Tabl... UD PRN PO 03/02/17 01:45 04/01/17 01:44 Dextrose (Dextrose 50% 50ML Syringe) 25-50ML OF 50% DW IV FOR... UD PRN IV 03/02/17 01:45 04/01/17 01:44 Glucagon (Glucagon Inj) 1 mg UD PRN SQ 03/02/17 01:45 04/01/17 01:44 Cefepime HCl (Consult) 1 ea UD PRN N/A 03/02/17 01:45 04/01/17 01:44 Pantoprazole Sodium (Protonix Tab) 40 mg QAM PO 03/02/17 09:00 04/01/17 08:59 03/03/17 08:07 40 MG Miscellaneous Information (Consult Glycemic Management Pharmacy) 1 ea UD PRN N/A 03/02/17 02:27 04/01/17 02:26 Heparin Sodium/ Dextrose 500 ml @ 31 mls/hr Q16H8M PRN IV 03/02/17 05:30 04/01/17 05:29 03/03/17 14:08 31 MLS/HR Insulin Glargine (Lantus Vial) 20 units BID SC 03/02/17 21:00 04/01/17 20:59 03/03/17 08:15 20 UNITS Warfarin Sodium (Coumadin Tab) 5 mg DAILY@16 PO 03/02/17 18:00 04/01/17 17:59 03/02/17 18:21 5 MG Prednisone (PredniSONE TAB) 60 mg QAM PO 03/04/17 09:00 04/03/17 08:59 Insulin Aspart (novoLOG ASPART) SLIDING SCALE ACHS SC 03/03/17 12:30 04/02/17 12:29 03/03/17 12:29 14 UNITS Objective Physical Exam General Appearance: WD/WN, no apparent distress (speaking easily in full sentences) Respiratory/Chest: no respiratory distress, + decreased breath sounds, + wheezing Cardiovascular: regular rate, rhythm Abdomen: normal bowel sounds, non tender, soft Extremities: + pedal edema (Minimal in RLE) 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: + pertinent finding (No gross neuro deficits, moving extremities easily, symmetric face) Notes: Ball cath in place, clear urine Laboratory Results 03/03/17 06:34 Test 03/03/17 06:34 03/03/17 12:09 Activated Partial Thromboplast Time 52.7 SECONDS (21.0-31.0) Partial Thromboplastin Ratio 2.0 Anion Gap 8.0 mmol/L (3-11) Est Creatinine Clear Calc Drug Dose 34.2 ml/min Estimated GFR () 36.2 Estimated GFR (Non- 31.2 BUN/Creatinine Ratio 22.1 (10-20) Calcium Level 8.7 mg/dl (8.5-10.1) Bedside Glucose 122 mg/dl (70-99) Assessment and Plan ## SOB, hx COPD and end-stage lung disease - Tx as COPD exacerbation. Started initially on methylprednisone 60 mg IV q6h. - Today (20Aug) transition to Prednisone PO. Planned daily dosin mg x2, 40 mg x2, 20 mg x2, then stop prednisone and resume his home steroid regimen. - Duonebs - Advair ## PNA - Placed on cefepime. [ ] BCx x2 from 19Aug pending, but no growth to date. - MRSA nose swab 19Aug was positive. Will not pursue further abx at this time. - Holding IVF considering hx diastolic heart failure. ## Leg pain, right popliteal DVT - C/o right leg pain. D-dimer 870. U/s of (B)LE showed right popliteal DVT, likely acute. - On heparin. Pt amenable to starting anticoagulation. Rx'ed coumadin 5 mg daily (start 19Aug). ## UTI - UCx from 18Aug was positive for pseudomonas and gram-neg bacilli (prelim read) . Pharmacy already on consult for abx dosing. Spoke with them today (20Aug), rec'd increase cefepime to 2 gm q 24 hours for better coverage (keeping renal dosing in mind). ## New concern for dizziness - Reportedly began on 16Aug. Seems present more than absent & pt quite adament that it is new and very bothersome. Still no gross neuro deficits on exam, though still concern for central vertigo given his age and risk of thrombosis. Is already on heparin and coumadin separately for the DVT. [ ] Brain MRI ordered 20Aug, pending results. ## Hypokalemia - On KCL PO TID supplementation. A little lower today 20Aug, may need extra supplementation tomorrow. ## CAD / Chronic diastolic heart failure - Atorvastatin, ASA 81, Plavix, Atenolol - Likely not on TEODORO-I or ARB due to renal function. 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 Discussed case again with pharmacy, they will stop insulin drip now that transitioning to PO steroids. DVT prophy: On heparin for dx'ed DVT Code status: DNR Discussed with attending on rounds this morning. FOR[facility]LY [facility], PGY1 Recreation Supervisor Physician Supervision Note: I was present with Dr. Torres during the history and exam. I discussed the case with the resident and agree with the findings and plan as documented in the note. Any exceptions or clarifications are listed here: He looks very well today. He has no complaints except for the dizziness noted above. Positive nasal MRSA swab is appreciated; however given his marked improvement, we'll continue current anabiotic regimen. Upon examination, he still has end expiratory wheezing throughout - but this is certainly improved compared to admission. Documented By: Jaguar Whaley Resident Tracking Resident Involvement: Resident Care Provided Care Provided: Adult [facility] Medicine (rounds)
--- NOTE | 2017-03-03 14:18 | Pharmacy Progress Note ---
Glycemic Control Progress Note Date of Service Mar 03, 2017. Scope Glycemic Pharmacist consulted for glycemic control to write orders per [facility] inpatient glycemic control protocol. Objective Accuchecks BSG (last 24hrs): Test 03/02/17 14:59 03/02/17 16:01 03/02/17 17:05 03/02/17 18:23 Bedside Glucose 163 mg/dl (70-99) 157 mg/dl (70-99) 253 mg/dl (70-99) 160 mg/dl (70-99) Test 03/02/17 20:02 03/02/17 21:15 03/02/17 21:59 03/02/17 23:05 Bedside Glucose 235 mg/dl (70-99) 286 mg/dl (70-99) 259 mg/dl (70-99) 293 mg/dl (70-99) Test 03/02/17 23:57 03/03/17 00:56 03/03/17 01:56 03/03/17 02:58 Bedside Glucose 303 mg/dl (70-99) 254 mg/dl (70-99) 279 mg/dl (70-99) 280 mg/dl (70-99) Test 03/03/17 04:09 03/03/17 05:12 03/03/17 05:58 03/03/17 06:34 Bedside Glucose 224 mg/dl (70-99) 224 mg/dl (70-99) 184 mg/dl (70-99) Random Glucose 151 mg/dl (70-99) Test 03/03/17 07:59 03/03/17 10:09 03/03/17 10:49 03/03/17 12:09 Bedside Glucose 160 mg/dl (70-99) 184 mg/dl (70-99) 173 mg/dl (70-99) 122 mg/dl (70-99) Recent Pertinent Medications Outpatient Anti-diabetic Regimen: * Lantus 55 units HS plus Novolog 70/30 20 units in AM and 5 units in PM. * A1c = 8.8 % 01/22/17 The patient is currently receiving: * Basal insulin: Lantus 26 units every 12 hours * Correctional Insulin: Novolog Correction per scale ACHS Goal Range: Low 110 mg/dL - High 140 mg/dL Correction Factor: 15 mg/dL/unit * Prandial insulin: Per carb ratio of 1 unit per 5 grams CHO consumed Risk Factors for Insulin Resistance: * Steroids: Solu-Medrol 40 mg IV q6 hours, stopped today (after 5 doses); prednisone 60 mg PO daily after today * Infection: possible HAP on cefepime * IV Fluids: heparin @ 31 mLs/hr * Diet: type 2 diabetic diet Outpatient Anti-Diabetic Meds see above Assessment & Plan ASSESSMENT: * ADA & AACE recommend a goal blood sugar range 140-180 mg/dl for the majority of critically ill & non-critically ill patients. However, more stringent targets may be selected in individual cases. Will utilize more stringent goal of 110-140mg/dl based on patient age & comorbidities. Additionally, tighter glycemic control is warranted to facilitate infection healing. * Mr Enciso is an 86 y/o M admitted on 03/01/17 for possible COPD exacerbation vs HAP. 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 He is chronically on steroids- hydrocortisone 40 mg PO BID. Initially, the patient received Solu-Medrol 80 mg IV x1 then 60 mg IV q6 hours (5 doses). Now patient on prednisone 60 mg PO daily. Yesterday, the patient was started on an insulin infusion due to elevated blood sugars. Lantus 25 units and then Lantus 20 units last night were given. * This morning, the insulin infusion was discontinued naturally. Therefore basal -bolus orders entered. A sliding scale of Lantus was added as unsure how patient 's blood sugars would respond. Weight-based stress of 3 correctional insulin was started as this corresponds with the patient's home dose of 80 units/day. Intravenous steroids have been discontinued so insulin requirements should dissipate. PLAN FOR INPATIENT GLYCEMIC CONTROL: * Holding outpatient oral diabetes medications * Basal insulin with LANTUS 20-25 units SQ BID (Lantus 20 units if blood sugar less than or equal to 180 mg/dL; Lantus 25 units if blood sugar greater than 180 mg/dL) * * Correctional Insulin - Novolog ACHS * correction factor of 15 mg/dL/unit * Carbohydrate ratio 1 unit for every 5 grams of carbohydrates consumed * continue goal range of 110-140 mg/dL. * Please note that the plan above was derived based on current level of insulin resistance and hospital stress. These recommendations are appropriate for inpatient admission only. Plan of care upon discharge will need to be reassessed to avoid potential outpatient hypo/hyperglycemia. Thank you.
[2017-03-03] MEDS: WARFARIN SOD 5 MG TAB PO SCH (17:10)
[2017-03-03] MEDS ORDERED: INSULIN REGULAR 10 UNITS in SYRINGE 9.9 ML IV SCH (17:45)
[2017-03-03] MEDS ORDERED: NURSING VERBAL MED ORDER ONE (18:15)
[2017-03-03] MEDS ORDERED: LORAZEPAM 0.5 MG TAB PO SCH (18:30)
[2017-03-03] MEDS ORDERED: GADAVIST IV PRN (22:15)
--- NOTE | 2017-03-03 22:22 | DIAGNOSTIC IMAGING REPORT ---
MRI OF THE BRAIN COMBO CLINICAL HISTORY: Vertigo. Dizziness. COMPARISON STUDY: CT of the brain dated 10/09/2014. MRI of the brain dated 04/21/2014. TECHNIQUE: MRI of the brain was performed utilizing various T1 and T2-weighted sequences in the axial, sagittal, and coronal planes. Contrast-enhanced sequences were acquired following the administration of 10 cc of Gadavist. The examination is modestly degraded by motion artifact. FINDINGS: Brain parenchyma: There are age-related involutional changes noting mild patchy subcortical and periventricular microangiopathic disease. There is no hemorrhage or mass effect. There is no restricted diffusion to suggest acute ischemia. No enhancing mass lesion is identified on the postcontrast images. Jones-white matter differentiation is preserved. No extra-axial fluid collection is seen. The cerebellar tonsils are normal in configuration. Ventricles, sulci, and cisterns: Prominent secondary to involutional change. Megacisterna magna is incidentally noted. Pituitary and sella: Partially empty sella is incidentally noted. Intracranial vasculature: Normal flow voids are maintained at the skull base. Orbits: The bony orbits are grossly intact. Orbital contents are normal in appearance noting bilateral ocular lens implants. Sinuses and mastoids: Clear. Calvarium: Unremarkable. Cervical cord: Partially visualized cervical spinal cord is normal in morphology and signal intensity. IMPRESSION: No acute intracranial abnormality. Electronically signed by: Terry Puente M.D. 03/03/2017 10:21 PM Dictated Date/Time: 03/03/2017 10:17 PM
[2017-03-03] MEDS: FAMOTIDINE 20 MG TAB PO SCH (22:34)
[2017-03-03] MEDS: TAMSULOSIN HCL 0.4 MG CAP PO SCH (22:34)
[2017-03-03] MEDS: ATORVASTATIN 20 MG TAB PO SCH (22:37)
[2017-03-03] MEDS: METHENAMINE HIPPURATE 1 GM TAB PO SCH (22:38)
[2017-03-03] MEDS: CEFEPIME IV 2,000 MG in DEXTROSE 5% 100ML 100 ML IV SCH (22:44)
[2017-03-04] VITALS (11 sets, daily range): BP systolic 94–138; BP diastolic 65–92; PULSE 60–87; TEMP 36.4–36.8; O2SAT 91–96
[2017-03-04] MEDS: ALBUT/IPRATROP 3MG/0.5MG NEB 3 ML VIAL INH SCH ×4 (01:45→18:57)
[2017-03-04] MEDS ORDERED: INSULIN ASPART 100 UNITS/ML 3 ML PEN SC SCH (02:00)
[2017-03-04] MEDS: INSULIN ASPART 100 UNITS/ML 3 ML PEN SC SCH ×6 (02:26→21:35)
[2017-03-04 07:01] LABS: BASO % 0.2 %; BASO ABS # 0.01 K/uL (0-0.2); COMPLETE YES; EOS % 0.8 %; HEMATOCRIT 40.5 % (42-52); IG% 0.9 %; LYMPH % 17.9 %; LYMPH ABS # 1.19 K/uL (1.2-3.4); MEAN CELL VOLUME 90.2 fL (80-100); MEAN CORPUSCULAR HEMOGLOBIN 27.2 pg (25-34); MEAN CORPUSCULAR HGB CONC 30.1 g/dl (32-36); MEAN PLATELET VOLUME 9.7 fL (7.4-10.4); MONO % 8.6 %; NEUT % 71.6 %; PLATELET COUNT 184 K/uL (130-400); RED BLOOD COUNT 4.49 M/uL (4.7-6.1); WHITE BLOOD COUNT 6.66 K/uL (4.8-10.8)
[2017-03-04 07:28] LABS: INR 1.2 (0.9-1.1); PARTIAL THROMBOPLASTIN RATIO 2.1; PROTHROMBIN TIME (PATIENT) 12.5 SECONDS (9.0-12.0)
[2017-03-04 07:35] LABS: BUN/CREATININE RATIO 20.7 (10-20); CALCIUM 8.5 mg/dl (8.5-10.1); CREATININE 1.9 mg/dl (0.60-1.40); POTASSIUM 3.2 mmol/L (3.5-5.1)
[2017-03-04] MEDS: AVODART - ORDER AWAITING ACTION SCH ×4 (08:44→23:54)
[2017-03-04] MEDS: FLUTICASONE PROPIONATE NA SPR 16 GM BTL SCH (08:53)
[2017-03-04] MEDS: CLOPIDOGREL BISULFATE 75 MG TAB PO SCH (08:53)
[2017-03-04] MEDS: LIDODERM (LIDOCAINE) PATCH 5% TD SCH (08:54)
[2017-03-04] MEDS: FLUTICASONE/SALMETEROL 250/50 (ADVAIR) 14 PUFF/1 INHALER INH SCH ×2 (08:56→21:19)
[2017-03-04] MEDS: FLUDROCORTISONE ACETATE 0.1 MG TAB PO SCH ×2 (08:56→21:22)
[2017-03-04] MEDS: CALCIUM POLYCARBOPHIL 1 TAB PO SCH (08:57)
[2017-03-04] MEDS: ASPIRIN 81 MG CHEW PO SCH (08:57)
[2017-03-04] MEDS: GABAPENTIN 800 MG TAB PO SCH ×2 (08:57→21:21)
[2017-03-04] MEDS: POTASSIUM CHLORIDE 20 MEQ TABCR PO SCH ×3 (08:57→21:20)
[2017-03-04] MEDS: GUAIFENESIN 600 MG TABCR PO SCH ×2 (08:58→21:23)
[2017-03-04] MEDS: PANTOprazole SOD 40 MG TAB PO SCH (08:58)
[2017-03-04] MEDS: MAGNESIUM OXIDE 400 MG TAB PO SCH ×2 (08:58→21:21)
[2017-03-04] MEDS: DULOXETINE (CYMBALTA) 30 MG CAP PO SCH (08:58)
[2017-03-04] MEDS: TORSEMIDE 20 MG TAB PO SCH (08:59)
[2017-03-04] MEDS: DOCUSATE SODIUM 100 MG CAP PO SCH ×2 (08:59→21:19)
[2017-03-04] MEDS: INSULIN GLARGINE SC SCH ×2 (09:00→21:36)
[2017-03-04] MEDS: BISACODYL 5 MG TABEC PO SCH ×2 (09:14→21:00)
[2017-03-04] MEDS: OXYCODONE HCL 15 MG TABCR (OXYCONTIN) PO SCH ×2 (09:14→21:39)
[2017-03-04] MEDS: ARTIFICIAL TEARS OP SOLN OPB SCH ×4 (09:15→21:25)
--- NOTE | 2017-03-04 09:49 | Pharmacy Progress Note ---
Glycemic Control Progress Note Date of Service Mar 04, 2017. Scope Glycemic Pharmacist consulted for glycemic control to write orders per [facility] inpatient glycemic control protocol. Objective Accuchecks BSG (last 24hrs): Test 03/03/17 10:09 03/03/17 10:49 03/03/17 12:09 03/03/17 16:26 Bedside Glucose 184 mg/dl (70-99) 173 mg/dl (70-99) 122 mg/dl (70-99) 456 mg/dl (70-99) Test 03/03/17 16:28 03/03/17 20:25 03/04/17 02:22 03/04/17 04:13 Bedside Glucose 336 mg/dl (70-99) 190 mg/dl (70-99) 139 mg/dl (70-99) 128 mg/dl (70-99) Test 03/04/17 06:45 03/04/17 06:46 Random Glucose 146 mg/dl (70-99) Bedside Glucose 148 mg/dl (70-99) HbA1c: Item Value Date Time Hemoglobin A1c 8.8 % H 01/22/17 0724 Estimated Average Glucose 206 mg/dl 01/22/17 0724 Recent Pertinent Medications The patient is currently receiving: * Basal insulin: Lantus 25 units every 12 hours * Correctional Insulin: Novolog Correction per scale ACHS Goal Range: Low 110 mg/dL - High 140 mg/dL Correction Factor: 15 mg/dL/unit * Prandial insulin: Per carb ratio of 1 unit per 5 grams CHO consumed Outpatient Anti-Diabetic Meds LANTUS plus NOVOLOG 70/30 TOTAL DAILY INSULIN DOSE = 80 UNITS Assessment & Plan ASSESSMENT: * 86 yo M admitted with pneumonia/COPD exacerbation, initiated on high dose steroids/IV antibiotics * Pt receiving SQ basal bolus insulin regimen for hyperglycemia secondary to baseline DM (outpatient regimen on hold), stress/infection, and steroids * Pt transitioned off insulin drip yesterday and BSGs have remained relatively stable * Continue to titrate insulin based on BSG trend * Of notes, IV steroids changed to PO steroids this AM which should decrease insulin needs PLAN FOR INPATIENT GLYCEMIC CONTROL: * Basal insulin * Lantus SQ BID based on BSG trend: * BSG less than 180: 25 units * BSG greater than 180: 35 units * Bolus insulin * NovoLog per scale ACHS or Q6hrs while NPO * Goal Range: Low 110 mg/dL - High 140 mg/dL * Correction Factor: 10 mg/dL/unit * Nutritional / Prandial insulin per carb ratio of 1 unit per 4 grams CHO consumed * Please note that the plan above was derived based on current level of insulin resistance and hospital stress. These recommendations are appropriate for inpatient admission only. Plan of care upon discharge will need to be reassessed to avoid potential outpatient hypo/hyperglycemia. Thank you.
[2017-03-04] MEDS ORDERED: POTASSIUM CHLORIDE 20 MEQ TABCR PO ONE (10:00)
[2017-03-04] MEDS ORDERED: INSULIN GLARGINE SC ONE (13:30)
[2017-03-04] MEDS: WARFARIN SOD 5 MG TAB PO SCH (18:01)
--- NOTE | 2017-03-04 18:02 | Family Medicine Progress Note ---
Progress Note Date of Service Mar 04, 2017. Subjective Pt evaluation today including: conversation w/ patient, conversation w/ family , physical exam, chart review, lab review -Pt is feeling good, slept well. -Pt does have a nonproductive cough and SOB. He says SOB has improved since admission. -Pt was eating when we came in today. -Pt does report trouble swallowing and says that he has a history of aspiration pneumonia. -Pt is still having dizziness. Pt says that he feels it at rest and in the morning. Pt denies ear fullness, hearing changes, tinnitus or dizzyness with specific movements Constitutional: No fever, No chills, No sweats Respiratory: + cough, + wheezing, + shortness of breath, + dyspnea on exertion, No sputum Cardiovascular: No chest pain, No edema Abdomen: No pain, No nausea, No vomiting, No diarrhea, No constipation Medications Current Inpatient Medications Medications (Trade) Dose Ordered Sig/Cole Route Start Time Stop Time Status Last Admin Dose Admin Aspirin (Aspirin Chew) 81 mg DAILY PO 03/02/17 09:00 04/01/17 08:59 03/04/17 08:57 81 MG Atenolol (Tenormin Tab) 12.5 mg DAILY PO 03/02/17 09:00 04/01/17 08:59 03/04/17 08:54 12.5 MG Atorvastatin Calcium (Lipitor Tab) 20 mg HS PO 03/02/17 21:00 04/01/17 20:59 03/03/17 22:37 20 MG Bisacodyl (Dulcolax Tab) 5 mg BID PO 03/02/17 09:00 04/01/17 08:59 03/04/17 09:14 5 MG Calcium Polycarbophil (Fibercon Tab) 1 tab DAILY PO 03/02/17 09:00 04/01/17 08:59 03/04/17 08:57 1 TAB Clopidogrel Bisulfate (plAVix TAB) 75 mg DAILY PO 03/02/17 09:00 04/01/17 08:59 03/04/17 08:53 75 MG Docusate Sodium (coLACE CAP) 100 mg BID PO 03/02/17 09:00 04/01/17 08:59 03/04/17 08:59 100 MG Duloxetine HCl (Cymbalta Cap) 30 mg DAILY PO 03/02/17 09:00 04/01/17 08:59 03/04/17 08:58 30 MG Famotidine (Pepcid Tab) 20 mg HS PO 03/02/17 21:00 04/01/17 20:59 03/03/17 22:34 20 MG Fludrocortisone Acetate (Florinef Tab) 0.1 mg BID PO 03/02/17 09:00 04/01/17 08:59 03/04/17 08:56 0.1 MG Salmeterol Xinafoate/ Fluticasone (Advair Diskus 250/50 Inh) 1 puff BID INH 03/02/17 09:00 04/01/17 08:59 03/04/17 08:56 1 PUFF Fluticasone Propionate (Flonase Nasal Atco) 2 sprays DAILY NA 03/02/17 09:00 04/01/17 08:59 03/04/17 08:53 2 SPRAYS Gabapentin (Neurontin Tab) 800 mg BID PO 03/02/17 09:00 04/01/17 08:59 03/04/17 08:57 800 MG Guaifenesin (Mucinex Contr Rel Tab) 1,200 mg Q12 PO 03/02/17 09:00 04/01/17 08:59 03/04/17 08:58 1,200 MG Levalbuterol (Xopenex 0.63 Mg/ 3 Ml Neb) 3 mg Q4 PRN INH 03/02/17 00:00 04/01/17 00:00 Lidocaine (Lidoderm Patch 5%) 1 patch QAM TD 03/02/17 09:00 04/01/17 08:59 03/04/17 08:54 1 PATCH Lorazepam (Ativan Tab) 0.5 mg Q4 PRN PO 03/02/17 00:00 04/01/17 00:00 Magnesium Oxide (Mag-Ox Tab) 400 mg BID PO 03/02/17 09:00 04/01/17 08:59 03/04/17 08:58 400 MG Methenamine Hippurate (Urex Tab) 1 gm HS PO 03/02/17 21:00 03/07/17 20:59 03/03/17 22:38 1 GM Oxycodone HCl (Oxycontin Tab) 15 mg Q12 PO 03/02/17 09:00 03/16/17 08:59 03/04/17 09:14 15 MG Potassium Chloride (Klor-Con Tab) 40 meq TID PO 03/02/17 09:00 04/01/17 08:59 03/04/17 13:00 40 MEQ Simethicone (Mylicon Chew Tab) 80 mg QID PRN PO 03/02/17 00:00 04/01/17 00:00 Tamsulosin HCl (Flomax Cap) 0.4 mg HS PO 03/02/17 21:00 04/01/17 20:59 03/03/17 22:34 0.4 MG Torsemide (Demadex Tab) 60 mg QAM PO 03/02/17 09:00 04/01/17 08:59 03/04/17 08:59 60 MG Miscellaneous Information (Order Awaiting Action) 1 ea QS N/A 03/02/17 08:00 04/01/17 07:59 Artificial Tears (Artificial Tears) 1 drops BID OPB 03/03/17 09:00 04/02/17 08:59 03/04/17 09:15 1 DROPS Miscellaneous (Remove Lidoderm Patch) 1 ea DAILY@21 N/A 03/02/17 21:00 04/01/17 20:59 03/03/17 22:44 1 EA Albuterol/ Ipratropium (Duoneb) 3 ml Q6R INH 03/02/17 03:00 04/01/17 02:59 03/04/17 14:22 3 ML Acetaminophen (Tylenol Tab) 650 mg Q4H PRN PO 03/02/17 00:00 04/01/17 00:00 Al Hydrox/Mg Hydrox/Simethicone (Maalox Max Susp) 15 ml Q4H PRN PO 03/02/17 00:00 04/01/17 00:00 Magnesium Hydroxide (Milk Of Magnesia Susp) 30 ml Q12H PRN PO 03/02/17 00:00 04/01/17 00:00 Zolpidem Tartrate (Ambien Tab) 5 mg HSZ PRN PO 03/02/17 00:00 04/01/17 00:00 Ondansetron HCl (Zofran Inj) 4 mg Q6H PRN IV 03/02/17 00:00 04/01/17 00:00 Nitroglycerin (Nitrostat Tab) 0.4 mg UD PRN SL 03/02/17 00:00 04/01/17 00:00 Morphine Sulfate (MoRPHine SULFATE INJ) 2 mg Q30M PRN IV 03/02/17 00:00 03/16/17 00:00 Polyethylene (Miralax Powder Packet) 17 gm DAILY PRN PO 03/02/17 00:00 04/01/17 00:00 03/03/17 22:59 17 GM Glucose (Glucose 40% Gel) 15-30 GRAMS 15 GRAMS... UD PRN PO 03/02/17 01:45 04/01/17 01:44 Glucose (Glucose Chew Tab) 4-8 Tablets 4 Tabl... UD PRN PO 03/02/17 01:45 04/01/17 01:44 Dextrose (Dextrose 50% 50ML Syringe) 25-50ML OF 50% DW IV FOR... UD PRN IV 03/02/17 01:45 04/01/17 01:44 Glucagon (Glucagon Inj) 1 mg UD PRN SQ 03/02/17 01:45 04/01/17 01:44 Cefepime HCl (Consult) 1 ea UD PRN N/A 03/02/17 01:45 04/01/17 01:44 Pantoprazole Sodium (Protonix Tab) 40 mg QAM PO 03/02/17 09:00 04/01/17 08:59 03/04/17 08:58 40 MG Miscellaneous Information (Consult Glycemic Management Pharmacy) 1 ea UD PRN N/A 03/02/17 02:27 04/01/17 02:26 Heparin Sodium/ Dextrose 500 ml @ 31 mls/hr Q16H8M PRN IV 03/02/17 05:30 04/01/17 05:29 03/03/17 14:08 31 MLS/HR Warfarin Sodium (Coumadin Tab) 5 mg DAILY@16 PO 03/02/17 18:00 04/01/17 17:59 03/03/17 17:10 5 MG Prednisone (PredniSONE TAB) 60 mg QAM PO 03/04/17 09:00 04/03/17 08:59 03/04/17 09:02 60 MG Insulin Aspart (novoLOG ASPART) SLIDING SCALE ACHS SC 03/03/17 12:30 04/02/17 12:29 03/04/17 13:00 19 UNITS Cefepime HCl 2000 mg/Dextrose 112.5 ml @ 200 mls/hr DAILY@2200 IV 03/03/17 22:00 03/12/17 01:59 03/03/17 22:44 200 MLS/HR Insulin Glargine (Lantus Vial) SEE PROTOCOL BID SC 03/03/17 21:00 04/02/17 20:59 03/04/17 09:00 18 UNITS Gadobutrol (Gadavist) 10 mmol UD PRN IV 03/03/17 22:15 03/07/17 22:14 Insulin Aspart (novoLOG ASPART) SLIDING SCALE 0200 SC 03/05/17 02:00 04/04/17 01:59 Objective Vital Signs Date Time Temp Pulse Resp B/P (MAP) Pulse Ox O2 Delivery O2 Flow Rate FiO2 03/04/17 16:00 Nasal Cannula 2.0 03/04/17 15:50 36.7 71 20 138/83 (101) 94 Nasal Cannula 2.0 03/04/17 14:26 60 16 95 Nasal Cannula 2.0 03/04/17 12:00 Nasal Cannula 2.0 03/04/17 11:11 36.4 83 20 94/70 (78) 96 Nasal Cannula 2.0 03/04/17 08:00 Room Air 2.0 03/04/17 07:47 36.6 77 20 134/92 (106) 95 Room Air 03/04/17 07:01 60 16 94 Room Air 03/04/17 04:01 36.4 87 20 119/76 (90) 92 Room Air 03/04/17 04:00 Room Air 03/04/17 01:45 68 16 91 Room Air 03/04/17 00:00 36.8 64 20 123/68 (86) 92 Room Air 03/04/17 00:00 92 Room Air 03/03/17 20:00 92 Room Air 03/03/17 19:31 36.5 77 18 124/75 (91) 92 Room Air Physical Exam General Appearance: WD/WN, no apparent distress Eyes: normal inspection, sclerae normal Neck: supple, no adenopathy Respiratory/Chest: chest non-tender, + decreased breath sounds (bases bilaterally), + wheezing (bilateral, expiratory ) Cardiovascular: regular rate, rhythm, no edema, no gallop, no JVD, no murmur Abdomen: normal bowel sounds, non tender, soft, no organomegaly 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: alert, normal mood/affect, oriented x 3 Skin: normal color, warm/dry, no rash Laboratory Results 03/04/17 06:45 Red Blood Count 4.49, Mean Corpuscular Volume 90.2, Mean Corpuscular Hemoglobin 27.2, Mean Corpuscular Hemoglobin Concent 30.1, Mean Platelet Volume 9.7, Neutrophils (%) (Auto) 71.6, Lymphocytes (%) (Auto) 17.9, Monocytes (%) (Auto) 8.6, Eosinophils (%) (Auto) 0.8, Basophils (%) (Auto) 0.2, Neutrophils # (Auto) 4.78, Lymphocytes # (Auto) 1.19, Monocytes # (Auto) 0.57, Eosinophils # (Auto) 0.05, Basophils # (Auto) 0.01 03/04/17 06:45 Test 03/04/17 06:45 03/04/17 16:41 White Blood Count 6.66 K/uL (4.8-10.8) Red Blood Count 4.49 M/uL (4.7-6.1) Hemoglobin 12.2 g/dL (14.0-18.0) Hematocrit 40.5 % (42-52) Mean Corpuscular Volume 90.2 fL (80-100) Mean Corpuscular Hemoglobin 27.2 pg (25-34) Mean Corpuscular Hemoglobin Concent 30.1 g/dl (32-36) Platelet Count 184 K/uL (130-400) Mean Platelet Volume 9.7 fL (7.4-10.4) Neutrophils (%) (Auto) 71.6 % Lymphocytes (%) (Auto) 17.9 % Monocytes (%) (Auto) 8.6 % Eosinophils (%) (Auto) 0.8 % Basophils (%) (Auto) 0.2 % Neutrophils # (Auto) 4.78 K/uL (1.4-6.5) Lymphocytes # (Auto) 1.19 K/uL (1.2-3.4) Monocytes # (Auto) 0.57 K/uL (0.11-0.59) Eosinophils # (Auto) 0.05 K/uL (0-0.5) Basophils # (Auto) 0.01 K/uL (0-0.2) RDW Standard Deviation 61.8 fL (36.4-46.3) RDW Coefficient of Variation 19.0 % (11.5-14.5) Immature Granulocyte % (Auto) 0.9 % Immature Granulocyte # (Auto) 0.06 K/uL (0.00-0.02) Prothrombin Time 12.5 SECONDS (9.0-12.0) Prothromb Time International Ratio 1.2 (0.9-1.1) Activated Partial Thromboplast Time 53.5 SECONDS (21.0-31.0) Partial Thromboplastin Ratio 2.1 Anion Gap 8.0 mmol/L (3-11) Est Creatinine Clear Calc Drug Dose 34.3 ml/min Estimated GFR () 36.2 Estimated GFR (Non- 31.2 BUN/Creatinine Ratio 20.7 (10-20) Calcium Level 8.5 mg/dl (8.5-10.1) Bedside Glucose 189 mg/dl (70-99) Assessment and Plan SOB, hx COPD and end-stage lung disease - Pt treated with steroids IV transitioned to PO - Today 60mg Prednisone PO. Tomorrow tapering to 40 mg x2, 20 mg x2 - Then stop prednisone and resume his home steroid regimen. - Cont. Duonebs - Cont. Advair PNA - likely aspiration - Continue cefepime. - Pt has a history of aspirate pneumonia. Pt is on aspiration precautions. - BCx x2 from 19Aug pending, but no growth to date. - MRSA nose swab 19Aug was positive. - Blood culture negative. Leg pain, right popliteal DVT - C/o right leg pain. D-dimer 870. - U/s of (B)LE showed right popliteal DVT, likely acute. - On heparin. -Continue Coumadin 5 mg daily (start 19Aug). UTI - UCx from 18Aug was positive for pseudomonas and gram-neg bacilli (prelim read) . - Pharmacy (20Aug), rec'd increase cefepime to 2 gm q 24 hours for better coverage (keeping renal dosing in mind). Dizziness -MRI showed no acute intracranial abnormalities - likely due to hypotension. has h/o adrenal insufficiency - Check orthostatics - on flomax. Hypokalemia - Continue KCL PO TID supplementation. CAD / Chronic diastolic heart failure - Continue Atorvastatin, ASA 81, Plavix, Atenolol - Continue torsemide - Hold IVF Paroxysmal atrial flutter - Previously declined anticoagulation with regional trainer (Dr. Hernandez) - Currently in NSR Adrenal insufficiency - Based on oupt medications - Continue Florinef but will hold hydrocortisone while on methylprednisone DM - Pt on Novolog and Lantus DVT prophy: On heparin for dx'ed DVT Code status: DNR Reviewed: Pt Seen/Exam by Me History breathing improving Constitutional: denies: fever Respiratory: positive: cough, negative: short of breath Cardiovascular: denies chest pain General Appearance: no apparent distress Respiratory: no respiratory distress, decreased breath sounds, wheezing Cardiovascular: regular rate, rhythm 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: alert, oriented x 3 Skin Characteristics: warm/dry Assessment/Plan Resident Physician Supervision Note: I was present with Dr. Hines in bedside. I verified the hutchison history and physical, reviewed labs and image studies, discussed the case with the resident and agree with the findings and care plan.
[2017-03-04] MEDS: CEFEPIME IV 2,000 MG in DEXTROSE 5% 100ML 100 ML IV SCH (21:14)
[2017-03-04] MEDS: TAMSULOSIN HCL 0.4 MG CAP PO SCH (21:19)
[2017-03-04] MEDS: ATORVASTATIN 20 MG TAB PO SCH (21:20)
[2017-03-04] MEDS: METHENAMINE HIPPURATE 1 GM TAB PO SCH (21:22)
[2017-03-04] MEDS: FAMOTIDINE 20 MG TAB PO SCH (21:23)
[2017-03-04] MEDS: POLYETHYLENE (MIRALAX) 17 GM PACK PO PRN (22:24)
[2017-03-04] MEDS: HEPARIN 25,000 UNIT/500ML D5W 500 ML IV PRN (22:42)
[2017-03-05] VITALS (7 sets, daily range): BP systolic 104–116; BP diastolic 63–69; PULSE 63–73; TEMP 36.5–36.9; O2SAT 91–94
[2017-03-05] MEDS: ALBUT/IPRATROP 3MG/0.5MG NEB 3 ML VIAL INH SCH ×3 (01:37→14:26)
[2017-03-05] MEDS ORDERED: INSULIN ASPART 100 UNITS/ML 3 ML PEN SC SCH (02:00)
[2017-03-05 07:11] LABS: BASO % 0.3 %; BASO ABS # 0.02 K/uL (0-0.2); COMPLETE YES; EOS % 0.8 %; HEMATOCRIT 41.6 % (42-52); IG% 1.1 %; MEAN CELL VOLUME 89.8 fL (80-100); MEAN PLATELET VOLUME 10.5 fL (7.4-10.4); MONO % 9.4 %; NEUT % 66.4 %; PLATELET COUNT 215 K/uL (130-400); RED BLOOD COUNT 4.63 M/uL (4.7-6.1); WHITE BLOOD COUNT 6.37 K/uL (4.8-10.8)
[2017-03-05 07:28] LABS: INR 1.7 (0.9-1.1); PARTIAL THROMBOPLASTIN RATIO 2.9; PROTHROMBIN TIME (PATIENT) 18.1 SECONDS (9.0-12.0)
[2017-03-05 07:44] LABS: BUN/CREATININE RATIO 22.8 (10-20); CALCIUM 8.9 mg/dl (8.5-10.1); CREATININE 1.7 mg/dl (0.60-1.40); POTASSIUM 3.6 mmol/L (3.5-5.1)
[2017-03-05] MEDS: HEPARIN 25,000 UNIT/500ML D5W 500 ML IV PRN (07:45)
[2017-03-05] MEDS: AVODART - ORDER AWAITING ACTION SCH ×2 (08:00→14:28)
--- NOTE | 2017-03-05 08:10 | Family Medicine Progress Note ---
Progress Note Date of Service Mar 05, 2017. Subjective Pt evaluation today including: conversation w/ patient, physical exam, chart review, lab review, review of studies 86 yo male -Today pt is feeling good: slept well, eating well -Pt reports less SOB. Pt still has a productive cough with yellow sputum. -Pt denies fevers, N/V/D, abdominal pain and chest pain Constitutional: No fever, No chills Respiratory: + cough, + sputum, + shortness of breath, No wheezing Cardiovascular: No chest pain, No orthopnea Abdomen: No pain, No nausea, No vomiting, No diarrhea Medications Current Inpatient Medications Medications (Trade) Dose Ordered Sig/Cole Route Start Time Stop Time Status Last Admin Dose Admin Aspirin (Aspirin Chew) 81 mg DAILY PO 03/02/17 09:00 04/01/17 08:59 03/04/17 08:57 81 MG Atenolol (Tenormin Tab) 12.5 mg DAILY PO 03/02/17 09:00 04/01/17 08:59 03/04/17 08:54 12.5 MG Atorvastatin Calcium (Lipitor Tab) 20 mg HS PO 03/02/17 21:00 04/01/17 20:59 03/04/17 21:20 20 MG Bisacodyl (Dulcolax Tab) 5 mg BID PO 03/02/17 09:00 04/01/17 08:59 03/04/17 09:14 5 MG Calcium Polycarbophil (Fibercon Tab) 1 tab DAILY PO 03/02/17 09:00 04/01/17 08:59 03/04/17 08:57 1 TAB Clopidogrel Bisulfate (plAVix TAB) 75 mg DAILY PO 03/02/17 09:00 04/01/17 08:59 03/04/17 08:53 75 MG Docusate Sodium (coLACE CAP) 100 mg BID PO 03/02/17 09:00 04/01/17 08:59 03/04/17 21:19 100 MG Duloxetine HCl (Cymbalta Cap) 30 mg DAILY PO 03/02/17 09:00 04/01/17 08:59 03/04/17 08:58 30 MG Famotidine (Pepcid Tab) 20 mg HS PO 03/02/17 21:00 04/01/17 20:59 8/21/17 21:23 20 MG Fludrocortisone Acetate (Florinef Tab) 0.1 mg BID PO 03/02/17 09:00 04/01/17 08:59 03/04/17 21:22 0.1 MG Salmeterol Xinafoate/ Fluticasone (Advair Diskus 250/50 Inh) 1 puff BID INH 03/02/17 09:00 04/01/17 08:59 03/04/17 21:19 1 PUFF Fluticasone Propionate (Flonase Nasal [place]) 2 sprays DAILY NA 03/02/17 09:00 04/01/17 08:59 03/04/17 08:53 2 SPRAYS Gabapentin (Neurontin Tab) 800 mg BID PO 03/02/17 09:00 04/01/17 08:59 03/04/17 21:21 800 MG Guaifenesin (Mucinex Contr Rel Tab) 1,200 mg Q12 PO 03/02/17 09:00 04/01/17 08:59 03/04/17 21:23 1,200 MG Levalbuterol (Xopenex 0.63 Mg/ 3 Ml Neb) 3 mg Q4 PRN INH 03/02/17 00:00 04/01/17 00:00 Lidocaine (Lidoderm Patch 5%) 1 patch QAM TD 03/02/17 09:00 04/01/17 08:59 03/04/17 08:54 1 PATCH Lorazepam (Ativan Tab) 0.5 mg Q4 PRN PO 03/02/17 00:00 04/01/17 00:00 Magnesium Oxide (Mag-Ox Tab) 400 mg BID PO 03/02/17 09:00 04/01/17 08:59 03/04/17 21:21 400 MG Methenamine Hippurate (Urex Tab) 1 gm HS PO 03/02/17 21:00 03/07/17 20:59 03/04/17 21:22 1 GM Oxycodone HCl (Oxycontin Tab) 15 mg Q12 PO 03/02/17 09:00 03/16/17 08:59 03/04/17 21:39 15 MG Potassium Chloride (Klor-Con Tab) 40 meq TID PO 03/02/17 09:00 04/01/17 08:59 03/04/17 21:20 40 MEQ Simethicone (Mylicon Chew Tab) 80 mg QID PRN PO 03/02/17 00:00 04/01/17 00:00 Tamsulosin HCl (Flomax Cap) 0.4 mg HS PO 03/02/17 21:00 04/01/17 20:59 03/04/17 21:19 0.4 MG Torsemide (Demadex Tab) 60 mg QAM PO 03/02/17 09:00 04/01/17 08:59 03/04/17 08:59 60 MG Miscellaneous Information (Order Awaiting Action) 1 ea QS N/A 03/02/17 08:00 04/01/17 07:59 Artificial Tears (Artificial Tears) 1 drops BID OPB 03/03/17 09:00 04/02/17 08:59 03/04/17 21:25 1 DROPS Miscellaneous (Remove Lidoderm Patch) 1 ea DAILY@21 N/A 03/02/17 21:00 04/01/17 20:59 03/03/17 22:44 1 EA Albuterol/ Ipratropium (Duoneb) 3 ml Q6R INH 03/02/17 03:00 04/01/17 02:59 03/05/17 06:52 3 ML Acetaminophen (Tylenol Tab) 650 mg Q4H PRN PO 03/02/17 00:00 04/01/17 00:00 Al Hydrox/Mg Hydrox/Simethicone (Maalox Max Susp) 15 ml Q4H PRN PO 03/02/17 00:00 04/01/17 00:00 Magnesium Hydroxide (Milk Of Magnesia Susp) 30 ml Q12H PRN PO 03/02/17 00:00 04/01/17 00:00 Zolpidem Tartrate (Ambien Tab) 5 mg HSZ PRN PO 03/02/17 00:00 04/01/17 00:00 Ondansetron HCl (Zofran Inj) 4 mg Q6H PRN IV 03/02/17 00:00 04/01/17 00:00 Nitroglycerin (Nitrostat Tab) 0.4 mg UD PRN SL 03/02/17 00:00 04/01/17 00:00 Morphine Sulfate (MoRPHine SULFATE INJ) 2 mg Q30M PRN IV 03/02/17 00:00 03/16/17 00:00 Polyethylene (Miralax Powder Packet) 17 gm DAILY PRN PO 03/02/17 00:00 04/01/17 00:00 03/04/17 22:24 17 GM Glucose (Glucose 40% Gel) 15-30 GRAMS 15 GRAMS... UD PRN PO 03/02/17 01:45 04/01/17 01:44 Glucose (Glucose Chew Tab) 4-8 Tablets 4 Tabl... UD PRN PO 03/02/17 01:45 04/01/17 01:44 Dextrose (Dextrose 50% 50ML Syringe) 25-50ML OF 50% DW IV FOR... UD PRN IV 03/02/17 01:45 04/01/17 01:44 Glucagon (Glucagon Inj) 1 mg UD PRN SQ 03/02/17 01:45 04/01/17 01:44 Cefepime HCl (Consult) 1 ea UD PRN N/A 03/02/17 01:45 04/01/17 01:44 Pantoprazole Sodium (Protonix Tab) 40 mg QAM PO 03/02/17 09:00 04/01/17 08:59 03/04/17 08:58 40 MG Miscellaneous Information (Consult Glycemic Management Pharmacy) 1 ea UD PRN N/A 03/02/17 02:27 04/01/17 02:26 Heparin Sodium/ Dextrose 500 ml @ 29 mls/hr [id number] PRN IV 03/02/17 05:30 04/01/17 05:29 03/05/17 07:45 29 MLS/HR Warfarin Sodium (Coumadin Tab) 5 mg DAILY@16 PO 03/02/17 18:00 04/01/17 17:59 03/04/17 18:01 5 MG Prednisone (PredniSONE TAB) 60 mg QAM PO 03/04/17 09:00 04/03/17 08:59 03/04/17 09:02 60 MG Insulin Aspart (novoLOG ASPART) SLIDING SCALE ACHS SC 03/03/17 12:30 04/02/17 12:29 03/04/17 21:35 12 UNITS Cefepime HCl 2000 mg/Dextrose 112.5 ml @ 200 mls/hr DAILY@2200 IV 03/03/17 22:00 03/12/17 01:59 03/04/17 21:14 200 MLS/HR Gadobutrol (Gadavist) 10 mmol UD PRN IV 03/03/17 22:15 03/07/17 22:14 Insulin Aspart (novoLOG ASPART) SLIDING SCALE 0200 SC 03/05/17 02:00 04/04/17 01:59 Insulin Glargine (Lantus Vial) 25 units BID SC 03/05/17 09:00 04/02/17 20:59 Objective Physical Exam General Appearance: WD/WN, no apparent distress Eyes: normal inspection, sclerae normal Neck: supple, no adenopathy Respiratory/Chest: chest non-tender, no respiratory distress, no accessory muscle use, + crackles, + rales Cardiovascular: regular rate, rhythm, no edema, no gallop Abdomen: normal bowel sounds, non tender, soft, no organomegaly, no pulsatile mass 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: alert, normal mood/affect, oriented x 3 Skin: normal color, warm/dry, no rash Laboratory Results 03/05/17 06:29 Red Blood Count 4.63, Mean Corpuscular Volume 89.8, Mean Corpuscular Hemoglobin 27.0, Mean Corpuscular Hemoglobin Concent 30.0, Mean Platelet Volume 10.5, Neutrophils (%) (Auto) 66.4, Lymphocytes (%) (Auto) 22.0, Monocytes (%) (Auto) 9.4, Eosinophils (%) (Auto) 0.8, Basophils (%) (Auto) 0.3, Neutrophils # (Auto) 4.23, Lymphocytes # (Auto) 1.40, Monocytes # (Auto) 0.60, Eosinophils # (Auto) 0.05, Basophils # (Auto) 0.02 03/05/17 06:29 Test 03/05/17 06:29 03/05/17 06:34 White Blood Count 6.37 K/uL (4.8-10.8) Red Blood Count 4.63 M/uL (4.7-6.1) Hemoglobin 12.5 g/dL (14.0-18.0) Hematocrit 41.6 % (42-52) Mean Corpuscular Volume 89.8 fL (80-100) Mean Corpuscular Hemoglobin 27.0 pg (25-34) Mean Corpuscular Hemoglobin Concent 30.0 g/dl (32-36) Platelet Count 215 K/uL (130-400) Mean Platelet Volume 10.5 fL (7.4-10.4) Neutrophils (%) (Auto) 66.4 % Lymphocytes (%) (Auto) 22.0 % Monocytes (%) (Auto) 9.4 % Eosinophils (%) (Auto) 0.8 % Basophils (%) (Auto) 0.3 % Neutrophils # (Auto) 4.23 K/uL (1.4-6.5) Lymphocytes # (Auto) 1.40 K/uL (1.2-3.4) Monocytes # (Auto) 0.60 K/uL (0.11-0.59) Eosinophils # (Auto) 0.05 K/uL (0-0.5) Basophils # (Auto) 0.02 K/uL (0-0.2) RDW Standard Deviation 62.0 fL (36.4-46.3) RDW Coefficient of Variation 18.9 % (11.5-14.5) Immature Granulocyte % (Auto) 1.1 % Immature Granulocyte # (Auto) 0.07 K/uL (0.00-0.02) Prothrombin Time 18.1 SECONDS (9.0-12.0) Prothromb Time International Ratio 1.7 (0.9-1.1) Activated Partial Thromboplast Time 75.3 SECONDS (21.0-31.0) Partial Thromboplastin Ratio 2.9 Anion Gap 5.0 mmol/L (3-11) Est Creatinine Clear Calc Drug Dose 38.2 ml/min Estimated GFR () 41.4 Estimated GFR (Non- 35.7 BUN/Creatinine Ratio 22.8 (10-20) Calcium Level 8.9 mg/dl (8.5-10.1) Bedside Glucose 91 mg/dl (70-99) Assessment and Plan SOB, hx COPD and end-stage lung disease - Pt treated with steroids IV transitioned to PO - Will taper 23Aug dose to 40mg Prednisone PO. 24Aug 40mg, followed by 20 mg x2 days - On discharge resume his home steroid regimen. - Cont. Duonebs - Cont. Advair PNA - Continue cefepime, day 4. - Pt has a history of aspirate pneumonia. Pt is on aspiration precautions. - BCx x2 from 19Aug pending, but no growth to date. - MRSA nose swab 19Aug was positive. Leg pain, right popliteal DVT - C/o right leg pain. D-dimer 870. - U/s of (B)LE showed right popliteal DVT, likely acute. - On heparin. - Continue Coumadin 5 mg daily (start 19Aug). INR 1.7 on 22Aug UTI - UCx from 18Aug was positive for pseudomonas and gram-neg bacilli (prelim read) . - Pharmacy (20Aug), rec'd increase cefepime to 2 gm q 24 hours for better coverage (keeping renal dosing in mind). Dizziness -MRI showed no acute intracranial abnormalities - negative orthostatics. - h/o adrenal insufficiency - may need dose increased of florinef Hypokalemia - Continue KCL PO TID supplementation. CAD / Chronic diastolic heart failure - Continue Atorvastatin, ASA 81, Plavix, Atenolol - Continue torsemide - Hold IVF Paroxysmal atrial flutter - Previously declined anticoagulation with cylinder block mechanic (Dr. Hernandez) - Currently in NSR Suspected adrenal insufficiency - Based on oupt medications - Continue Florinef but will hold hydrocortisone while on methylprednisone DM - Pt on Novolog and Lantus DVT prophy: On heparin for dx'ed DVT Code status: DNR
[2017-03-05] MEDS: INSULIN ASPART 100 UNITS/ML 3 ML PEN SC SCH ×2 (08:49→12:37)
[2017-03-05] MEDS: LIDODERM (LIDOCAINE) PATCH 5% TD SCH (08:56)
[2017-03-05] MEDS: FLUTICASONE/SALMETEROL 250/50 (ADVAIR) 14 PUFF/1 INHALER INH SCH (08:56)
[2017-03-05] MEDS: FLUTICASONE PROPIONATE NA SPR 16 GM BTL SCH (08:56)
[2017-03-05] MEDS: ARTIFICIAL TEARS OP SOLN OPB SCH ×2 (08:57)
[2017-03-05] MEDS: BISACODYL 5 MG TABEC PO SCH (08:58)
[2017-03-05] MEDS: CLOPIDOGREL BISULFATE 75 MG TAB PO SCH (08:58)
[2017-03-05] MEDS: DULOXETINE (CYMBALTA) 30 MG CAP PO SCH (08:59)
[2017-03-05] MEDS: ASPIRIN 81 MG CHEW PO SCH (08:59)
[2017-03-05] MEDS: TORSEMIDE 20 MG TAB PO SCH (08:59)
[2017-03-05] MEDS: CALCIUM POLYCARBOPHIL 1 TAB PO SCH (09:00)
[2017-03-05] MEDS: POTASSIUM CHLORIDE 20 MEQ TABCR PO SCH ×2 (09:00→15:49)
[2017-03-05] MEDS: MAGNESIUM OXIDE 400 MG TAB PO SCH (09:00)
[2017-03-05] MEDS ORDERED: INSULIN GLARGINE SC SCH (09:00)
[2017-03-05] MEDS: DOCUSATE SODIUM 100 MG CAP PO SCH (09:01)
[2017-03-05] MEDS: GABAPENTIN 800 MG TAB PO SCH (09:01)
[2017-03-05] MEDS: PANTOprazole SOD 40 MG TAB PO SCH (09:01)
[2017-03-05] MEDS: FLUDROCORTISONE ACETATE 0.1 MG TAB PO SCH (09:01)
[2017-03-05] MEDS: GUAIFENESIN 600 MG TABCR PO SCH (09:01)
[2017-03-05] MEDS: OXYCODONE HCL 15 MG TABCR (OXYCONTIN) PO SCH (09:10)
[2017-03-05] MEDS ORDERED: LEVO1TAB35 PO (12:12)
[2017-03-05] MEDS ORDERED: ENOX120I SQ (12:22)
[2017-03-05] MEDS ORDERED: CMD5 PO (12:22)
--- NOTE | 2017-03-05 12:48 | Discharge Instructions ---
Discharge Instructions Date of Service Mar 05, 2017. Admission Reason for Admission: Respiratory Distress Discharge Discharge Diagnosis / Problem: Infectious Exacerbation of COPD Discharge Goals Goal(s): Decrease discomfort, Improve function, Increase independence, Improve nutritional status Activity Recommendations Activity Limitations: resume your previous activity . Instructions / Follow-Up Instructions / Follow-Up Mr. Enciso, [place] came to the hospital with a productive cough and shortness of breath. Your symptoms and chest xray results point to pneumonia, an infection of your lungs, which triggered your COPD symptoms. We started you on a antibiotics and we saw improvements over the course of your hospitalization. We are sending you home on a antibiotic called Levaquin. Please take this medication tomorrow and then again in 48hours. During your hospitalization you were found to have a blood clot in your leg. As a way to prevent the clot from going up into your lungs, we started you on an anticoagulant called Warfarin. Please take your dose of Warfarin tomorrow, and have the correction draw blood for a test called, PT INR. This test will help your doctor determine proper dose of Warfarin going forward. Your also on a short-term medicine called Lovenox. The nursing staff will administer these injection for one week. This medicine is also for the blood clot. You were also found to have trouble swallowing which put you at andrew for lung infections. In summary: 1. You are improving after being on antibiotics 2. You are going home with two doses of Levaquin 3. You are taking Lovenox injections for 7 days. 4. You are taking Warfarin indefinitely, dose will be determined by primary care physician Its been a pleasure taking care of you. Please follow up with your PCP. Current Hospital Diet Patient's current hospital diet: AHA Diet (Heart Healthy), Diabetes Type 2 Diet Discharge Diet Recommended Diet: AHA Diet (Heart Healthy), Diabetes Type 2 Diet Diet Texture: Mechanical Soft (ground) Pending Studies Studies pending at discharge: no Laboratory Results Hemoglobin A1c Test 01/22/17 07:24 Range/Units Estimated Average Glucose 206 mg/dl Hemoglobin A1c 8.8 H 4.5-5.6 % Medical Emergencies . Who to Call and When: Medical Emergencies: If at any time you feel your situation is an emergency, please call 911 immediately. . Non-Emergent Contact Non-Emergency issues call your: Primary Care Provider . . "Provider Documentation" section prepared by Dixon Hines. . VTE Core Measure Inpt VTE Proph given/why not?: Unfractionated heparin SQ, Warfarin (Coumadin), TKendra Mccarthy, SCD's
[2017-03-05 15:21] LABS: PARTIAL THROMBOPLASTIN RATIO 1.7
--- NOTE | 2017-03-05 15:26 | Discharge Summary ---
Discharge Summary Date of Service Mar 05, 2017. (Dixon Hines M.D.) Discharge Summary Admission Date: Mar 02, 2017 at 00:01 Discharge Date: Mar 05, 2017 Discharge Disposition: [facility] facility Principal Diagnosis: Infectious COPD exacerbation Immunizations: Have You Had Influenza Vaccine: Yes Influenza Vaccine Date: Jun 08, 2013 History of Tetanus Vaccine?: Unknown History of Pneumococcal: Yes History of Hepatitis B Vaccine: Unknown (Dixon Hines M.D.) Medication Reconciliation New Medications: Enoxaparin (Lovenox) 120 Mg/0.8 Ml Inj 100 MG SQ Q12H for 7 Days, SYR Levofloxacin (Levaquin) 750 Mg Tab 750 MG PO DIRECTED for 2 Days, TAB Medication whould be taken every other day: One tablet tomorrow and the second tablet 48 hours later. Warfarin Sod (Coumadin) 5 Mg Tab 5 MG PO DAILY@16 for 1 Day, #1 TAB Take one tablet tomorrow, have INR checked tomorrow Continued Medications: Acetaminophen (Tylenol) 500 Mg Tab 1000 MG PO Q12 TAKE AT 0800 & 2000 Aspirin (Aspirin Chewable) 81 Mg Chew 81 MG PO DAILY Atenolol (Tenormin) 25 Mg Tab 12.5 MG PO DAILY, TAB Atorvastatin (Atorvastatin Calcium) 20 Mg Tab 20 MG PO HS, #28 Bisacodyl (Bisacodyl) 5 Mg Tab 5 MG PO BID Calcium Polycarbophil (Fiber Laxative) 625 Mg Tab 1 TAB PO DAILY Clopidogrel (Plavix) 75 Mg Tab 75 MG PO DAILY Docusate Sodium (Colace) 100 Mg Cap 100 MG PO BID Duloxetine HCl (Duloxetine HCl) 30 Mg Cap 30 MG PO DAILY, #28 Dutasteride (Dutasteride) 0.5 Mg Cap 0.5 MG PO DAILY, #28 Famotidine (Famotidine) 20 Mg Tab 20 MG PO HS, #28 Fiber Laxative (Fiber Laxative) Ea 1 TAB PO DAILY Fludrocortisone Acetate (Fludrocortisone Acetate) 0.1 Mg Tab 0.1 MG PO BID for 10 Days, #20 TAB Fluticasone Prop/Salmeterol (Advair Diskus 250-50 Mcg/Dose) 14 Puff/1 Inhaler Aerp 1 PUFF INH BID, #1 INHALER Fluticasone Propionate (Fluticasone Propionate) 50 Mcg/Act Spr 2 SPRAYS NA DAILY for 30 Days Gabapentin (Gabapentin) 800 Mg Tab 800 MG PO BID, #84 Guaifenesin Ext Rel (Mucinex Ext Rel) 600 Mg Tabcr 1200 MG PO Q12, TAB Hydrocortisone (Cortef) 20 Mg Tab 40 MG PO BID Insulin Aspart 70/30 (Novolog Mix 70/30) Susp 5 UNITS SQ QPM, BTL Insulin Aspart Protamine & Asp (Novolog Mix 70/30) 1 Inj Inj 20 UNITS SQ QAM, #10 Insulin Glargine (Lantus) 100 Unit/Ml Inj 55 UNIT SQ HS, #10 Ipratropium-Albuterol (Combivent Respimat) 1 Aer Aer 1 PUFF INH QID, #4 Levalbuterol (Levalbuterol HCl) 0.63 Mg/3 Ml Nebu 1 VIAL NEB Q4 PRN for Wheezing Lidocaine (Lidocaine) 1 Patch Tdsy 1 PATCH TD QAM for 30 Days to back pain Lorazepam (Lorazepam) 0.5 Mg Tab 0.5 MG PO Q4 PRN for Anxiety/Agitation, #30 Magnesium Oxide (Mag-Ox) 400 Mg Tab 400 MG PO BID, TAB Methenamine Hippurate (Methenamine Hippurate) 1 Gm Tab 1 GM PO HS Multiple Vitamins W/ Minerals (Therems M) 1 Tab Tab 1 TAB PO DAILY Nitroglycerin (Nitrostat) 0.4 Mg Tab 1 TAB SL UD PRN for Chest Pain, 3 Refills Omeprazole (Prilosec) 20 Mg Capcr 20 MG PO DAILY, CAP Oxycodone HCl (Oxycontin) 15 Mg Tabcr 15 MG PO Q12, #6 Polyethylene Glycol 3350 (Miralax) 1 Pow Pow 17 GM PO BID, #255 GM Polyethylene Glycol-Propylene (Systane Ultra) 1 Idania Idania 1 DROPS OPB BID, #15 ML 1 Refill Potassium Chloride (Klor-Con M20) 20 Meq Tabcr 40 MEQ PO TID for 7 Days, #60 Simethicone (Gas-X) 80 Mg Chw 80 MG PO QID PRN for Indigestion Tamsulosin Hcl (Flomax) 0.4 Mg Cap 0.4 MG PO HS, #28 Torsemide (Torsemide) 20 Mg Tab 60 MG PO QAM for 30 Days, #90 TAB Trolamine Salicylate (Aspercreme) 10 % Lot 1 APPLN TOP BID PRN for ARTHRITIS PAIN Discontinued Medications: Metolazone (Zaroxolyn) 2.5 Mg Tab 2.5 MG PO DAILY PRN for WT GAIN 3LBS/24HR OR 5LB/WEEK 30 MIN PRIOR TO DEMADEX Discharge Exam See progress note for history, ROS, PE (Dixon Hines M.D.) Review of Systems: Constitutional: No fever Respiratory: No shortness of breath Cardiovascular: No chest pain Abdomen: No pain Physical Exam: General Appearance: no apparent distress Respiratory/Chest: lungs clear (anteriorly), no respiratory distress Cardiovascular: regular rate, rhythm Abdomen / GI: normal bowel sounds, non tender, soft 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: alert, oriented x 3 Skin: warm/dry (Abimbola Wolf M.D.) Hospital Course Mr. Enciso was admitted on 03/02: Mr Enciso is an 86 year old male who presented to the Emergency Room with complaints of shortness of breath, chest pain, productive cough and sweating for a period of 3 days. -Pt also expressed light headedness and chest pain in the center of his chest which is aching, 5-12/22 -Pt says chest pain is worse with cough. Pt has a recent h/o pneumonia with similar symptoms. -During hospitalization, pt also reported dizziness. MRI of the head showed no intracranial abnormalities. Pt was not found to have orthostatic hypotension. Treatment and hospital course In the ED, the patient was started on IV steroids and transitioned to PO. Pt was also started on Cefepime considering patient recent pseudomonas pneumonia. Pt was also found to have pseudomonas on urine culture. Pt recovered well during hospitalization, but was found to have a DVT on Doppler USG. Pt was started on IV heparin and warfarin. INR 1.7 on discharge. Pt has been discharged with Lovenox and one dose of Warfarin 5mg. Pt needs an INR on 03/06/2017 to determine regimen going forward. Pt was discharged with 750mg PO Levaquin: 2 doses, one Saturday and one Saturday. Please see problem list below for more information: SOB, hx COPD and end-stage lung disease - Pt treated with steroids IV transitioned to PO - Will taper 23Aug dose to 40mg Prednisone PO. 24Aug 40mg, followed by 20 mg x2 days - On discharge resume his home steroid regimen. - Cont. Duonebs - Cont. Advair PNA - Continue cefepime, day 4. - Pt has a history of aspirate pneumonia. Pt is on aspiration precautions. - BCx x2 from 19Aug pending, but no growth to date. - MRSA nose swab 19Aug was positive. Leg pain, right popliteal DVT - C/o right leg pain. D-dimer 870. - U/s of (B)LE showed right popliteal DVT, likely acute. - On heparin. - Continue Coumadin 5 mg daily (start 19Aug). INR 1.7 on 22Aug UTI - UCx from 18Aug was positive for pseudomonas and gram-neg bacilli (prelim read) . - Pharmacy (20Aug), rec'd increase cefepime to 2 gm q 24 hours for better coverage (keeping renal dosing in mind). Dizziness -MRI showed no acute intracranial abnormalities - negative orthostatics. - h/o adrenal insufficiency - may need dose increased of florinef Hypokalemia - Continue KCL PO TID supplementation. CAD / Chronic diastolic heart failure - Continue Atorvastatin, ASA 81, Plavix, Atenolol - Continue torsemide - Hold IVF Paroxysmal atrial flutter - Previously declined anticoagulation with completion supervisor (Dr. Hernandez) - Currently in NSR Suspected adrenal insufficiency - Based on oupt medications - Continue Florinef but will hold hydrocortisone while on methylprednisone DM - Pt on Novolog and Lantus DVT prophy: On heparin for dx'ed DVT Code status: DNR Total Time Spent: Greater than 30 minutes This includes examination of the patient, discharge planning, medication reconciliation, and communication with other providers. (Dixon Hines M.D.) Resident Physician Supervision Note: I was present with Dr. Hines in bedside. I verified the hutchison history and physical, reviewed labs and image studies, discussed the case with the resident and agree with the findings and care plan. Total Time Spent: Greater than 30 minutes (35) (Abimbola Wolf M.D.) Discharge Instructions Please refer to the electronic Patient Visit Report (Discharge Instructions) for additional information. (Dixon Hines M.D.) Additional Copies To Wilver Franco M.D.
[2017-03-05] MEDS: WARFARIN SOD 5 MG TAB PO SCH (15:50)
[2017-03-26] MEDS ORDERED: WARF3TAB6 PO (20:54)
[2017-03-28] MEDS ORDERED: OXYSR15 PO (16:37)
[2017-03-28] MEDS ORDERED: MCRK20 PO (16:37)
[2017-03-28] MEDS ORDERED: HYD10 PO (16:37)
[2017-03-28] MEDS ORDERED: CYAN10005 PO (16:37)
[2017-03-28] MEDS ORDERED: HYDR20TA PO (16:53)
[2017-03-28] MEDS ORDERED: FLUC100T4 PO (17:10)
== END 2017-03-05 16:30 | DRG 190 ==
LOC: EDBD 20:48 → C.EDB 20:49 → C.2T 03-02 00:01 → EDBEDREQ 03-02 00:07 → ENRESERV 03-02 00:22
PROVIDERS: ADMIT Internal Medicine; ATTEND Family Medicine
DX: J44.1 Chronic obstructive pulmonary disease with (acute) exacerbation (principal); J69.0 Pneumonitis due to inhalation of food and vomit; J96.21 Acute and chronic respiratory failure with hypoxia; J15.211 Pneumonia due to Methicillin susceptible Staphylococcus aureus; N39.0 Urinary tract infection, site not specified; I48.92 Unspecified atrial flutter; I50.32 Chronic diastolic (congestive) heart failure; E27.40 Unspecified adrenocortical insufficiency; I82.431 Acute embolism and thrombosis of right popliteal vein; I13.0 Hypertensive heart and chronic kidney disease with heart failure and stage 1 through stage 4 chronic kidney disease, or unspecified chronic kidney disease; I82.409 Acute embolism and thrombosis of unspecified deep veins of unspecified lower extremity; J44.0 Chronic obstructive pulmonary disease with (acute) lower respiratory infection; I25.10 Atherosclerotic heart disease of native coronary artery without angina pectoris; E21.3 Hyperparathyroidism, unspecified; E78.5 Hyperlipidemia, unspecified; Z86.73 Personal history of transient ischemic attack (TIA), and cerebral infarction without residual deficits; Z95.818 Presence of other cardiac implants and grafts; Z82.49 Family history of ischemic heart disease and other diseases of the circulatory system; Z87.891 Personal history of nicotine dependence; K21.9 Gastro-esophageal reflux disease without esophagitis; N31.9 Neuromuscular dysfunction of bladder, unspecified; I25.2 Old myocardial infarction; Z66 Do not resuscitate; B96.5 Pseudomonas (aeruginosa) (mallei) (pseudomallei) as the cause of diseases classified elsewhere; E87.6 Hypokalemia; N18.3 Chronic kidney disease, stage 3 (moderate); I95.89 Other hypotension; E11.22 Type 2 diabetes mellitus with diabetic chronic kidney disease; N40.0 Benign prostatic hyperplasia without lower urinary tract symptoms; G52.1 Disorders of glossopharyngeal nerve; F32.9 Major depressive disorder, single episode, unspecified; G89.29 Other chronic pain; K59.00 Constipation, unspecified; Z98.61 Coronary angioplasty status; Z86.718 Personal history of other venous thrombosis and embolism; Z86.14 Personal history of Methicillin resistant Staphylococcus aureus infection; Z87.440 Personal history of urinary (tract) infections; Z79.01 Long term (current) use of anticoagulants; Z79.02 Long term (current) use of antithrombotics/antiplatelets; Z79.1 Long term (current) use of non-steroidal anti-inflammatories (NSAID); Z79.4 Long term (current) use of insulin; Z79.51 Long term (current) use of inhaled steroids; Z79.52 Long term (current) use of systemic steroids; Z79.82 Long term (current) use of aspirin; Z79.891 Long term (current) use of opiate analgesic; Z79.899 Other long term (current) drug therapy; N18.4 Chronic kidney disease, stage 4 (severe); D61.818 Other pancytopenia

== ENCOUNTER → 2017-03-06 | Outpatient (CLI) | payer OTHER ==
[~2017-03-06] MED LIST changes: +ADVIN25/60 INH; +AMOX875T PO; +ASPCH81X PO; -ATOR-22 PO; +CMD5 PO; +CYAN10005 PO; +CYAN1TAB18 PO; +CYM30 PO; +DULO60CA44 PO; -DUTA0.5C PO; +DUTA1CAP3 PO; +ENOX120I SQ; +FAMO1TAB47 PO; -FAMO20TA9 PO; +FIBER PO; -FLM4 PO; +FLUC100T4 PO; +FLUD0.1T10 PO; +GUAI1TAB55 PO; +HYD10 PO; +HYDR20TA PO; +INSDGI SQ; -INSDGIPEN SC; +IPRA1AER2 INH; -LCTX PO; +LEVO1TAB35 PO; +LINE1TAB6 PO; +LPT/20 PO; +METH1TAB5 PO; -MTHH1 PO; -NRN600 PO; +NRN800 PO; +NVLGI7030 SQ; +OXGN; +OXYC15TA89 PO; +POLY335019 PO; +PRED10TA PO; +PRED20TA PO; +SIME80CH PO; +TAMS0.4C38 PO; +TROL10LO TOP; +WARF2.5T8 PO; +WARF2TAB PO; +WARF3TAB6 PO; +[UNRECOGNIZED DRUG - CODE] TOP; -[UNRECOGNIZED DRUG - REMARK]
[2017-03-06 10:42] LABS: INR 2.2 (0.9-1.1); PROTHROMBIN TIME (PATIENT) 24.8 SECONDS (9.0-12.0)
== END ==
LOC: C.LABVPSUA 10:04
PROVIDERS: ATTEND Internal Medicine Critical Care Medicine
DX: I82.409 Acute embolism and thrombosis of unspecified deep veins of unspecified lower extremity (principal)

== ENCOUNTER → 2017-03-08 | Outpatient (CLI) | payer OTHER ==
[2017-03-08 09:16] LABS: PROTHROMBIN TIME (PATIENT) 49.5 SECONDS (9.0-12.0)
[2017-03-08 09:28] LABS: INR 4.4 (0.9-1.1)
== END ==
LOC: C.LABVPSUA 08:36
PROVIDERS: ATTEND Internal Medicine Critical Care Medicine
DX: I82.409 Acute embolism and thrombosis of unspecified deep veins of unspecified lower extremity (principal)

== ENCOUNTER → 2017-03-11 | Outpatient (CLI) | payer OTHER ==
[~2017-03-11] MED LIST changes: -LEVO1TAB35 PO; +WARFARIN SOD 5 MG TAB PO SCH
[2017-03-11 09:12] LABS: INR 2.5 (0.9-1.1); PROTHROMBIN TIME (PATIENT) 27.6 SECONDS (9.0-12.0)
== END | disposition home or self-care (01) ==
LOC: C.LABVPSUA 08:52
PROVIDERS: ATTEND Internal Medicine Critical Care Medicine
DX: I82.409 Acute embolism and thrombosis of unspecified deep veins of unspecified lower extremity (principal)

== ENCOUNTER 2017-03-13 10:06 | Inpatient (IN) | payer OTHER ==
[2017-03-13] VITALS (8 sets, daily range): BP systolic 96–116; BP diastolic 51–61; PULSE 60–81; TEMP 36.5–36.8; O2SAT 91–97; Ht 185.4 cm; Wt 101.9 kg
[~2017-03-13] VITALS: Ht 185.4 cm; Wt 101.9 kg
[~2017-03-13 10:06] MED LIST changes: -ADVIN25/60 INH; -AMOX875T PO; -CYAN10005 PO; -CYAN1TAB18 PO; -DULO60CA44 PO; -FLUC100T4 PO; -FLUD0.1T10 PO; -GUAI1TAB55 PO; -HYD10 PO; -HYDR20TA PO; -LINE1TAB6 PO; -METO2.5T PO; -OXGN; -OXYC15TA89 PO; -PRED10TA PO; -PRED20TA PO; -WARF2.5T8 PO; -WARF2TAB PO; -WARF3TAB6 PO; -WARFARIN SOD 5 MG TAB PO SCH; -[UNRECOGNIZED DRUG - CODE] TOP
[2017-03-13] MEDS ORDERED: METHYLPREDNISOLONE 125 MG VIAL IV STA (10:24)
[2017-03-13] MEDS ORDERED: MAGNESIUM SULFATE 1GM / D5W 1 GM BAG IV STA (10:24)
[2017-03-13] MEDS ORDERED: ALBUT/IPRATROP 3MG/0.5MG NEB 3 ML VIAL INH ONE (10:30)
[2017-03-13] MEDS ORDERED: AZITHROMYCIN IV 500 MG in DEXTROSE 5% 250ML 250 ML IV ONE (10:30)
--- NOTE | 2017-03-13 10:42 | EMERGENCY ROOM VISIT NOTE ---
History Report prepared by Hood: Marybel Man Under the Supervision of: Dr. John Shine M.D. First contact with patient: 10:20 Chief Complaint: RESPIRATORY PROBLEMS Stated Complaint: SHORTNESS OF BREATH History of Present Illness The patient is an 86 year old male who presents to the Emergency Room with complaints of persistent shortness of breath that began this morning when he woke up. Per nursing staff the patient [facility]. Nursing staff reports that the patient woke with increased shortness of breath and was given Xopenex for his symptoms. Nursing staff states that the patient oxygen saturations were in the 70s. Nursing staff states that the patient wears supplemental nasal cannula oxygen at night. The patent reports a history of COPD and CHF, noting that he has inhalers at home. He denies any recent weight gain. The patient states that he has been experiencing a productive cough. He reports left arm soreness. The patient states that he believes he finished his antibiotics. He denies any fever, chills, congestion, chest pain, nausea or vomiting. Source of History: patient Onset: this morning when he woke up Position: other (global) Quality: other (shortness of breath) Timing: other (persistent) Associated Symptoms: + cough, No fevers, No chills, No chest pain, No nausea , No vomiting Note: Associated Symptoms: left arm soreness. Review of Systems See HPI for pertinent positives and negatives. A total of ten systems were reviewed and were otherwise negative. Past Medical & Surgical Medical Problems: (1) Acute on chronic respiratory failure with hypoxia and hypercapnia (2) Acute renal failure (3) Anemia (4) Asthma (5) chronic kidney disease (6) COPD (chronic obstructive pulmonary disease) (7) Coronary artery disease (8) CVA (cerebrovascular accident) (9) Essential hypertension (10) HTN (hypertension) (11) Hypercholesterolemia (12) Hyperparathyroidism (13) Hypotension (14) Influenza A (15) MT (myocardial infarction) (16) Peripheral vascular disease (17) TIA (transient ischemic attack) (18) Urinary retention (19) Urosepsis Surgical Problems: (1) H/O heart artery stent Family History FH: heart disease Hypertension Social History Smoking Status: Former Smoker Alcohol Use: occasionally Drug Use: none Marital Status: Housing Status: lives with significant other Occupation Status: retired Current/Historical Medications Scheduled Acetaminophen (Tylenol), 1,000 MG PO Q12 Aspirin (Aspirin Chewable), 81 MG PO DAILY Atenolol (Tenormin), 12.5 MG PO DAILY Atorvastatin (Atorvastatin Calcium), 20 MG PO HS Bisacodyl (Bisacodyl), 5 MG PO BID Ciclopirox (Ciclodan), 1 APPLN TOP QPM Clopidogrel (Plavix), 75 MG PO DAILY Docusate Sodium (Colace), 100 MG PO BID Duloxetine HCl (Duloxetine HCl), 30 MG PO DAILY Dutasteride (Dutasteride), 0.5 MG PO DAILY Famotidine (Famotidine), 20 MG PO HS Fiber Laxative (Fiber Laxative), 1 TAB PO DAILY Fludrocortisone Acetate (Fludrocortisone Acetate), 0.1 MG PO BID Fluticasone Prop/Salmeterol (Advair Diskus 250-50 Mcg/Dose), 1 PUFF INH BID Fluticasone Propionate (Fluticasone Propionate), 2 SPRAYS NA DAILY Gabapentin (Gabapentin), 800 MG PO TID Guaifenesin Ext Rel (Mucinex Ext Rel), 1,200 MG PO Q12 Home O2 Therapy (Oxygen), 1 LITER NA PRN Insulin Aspart 70/30 (Novolog Mix 70/30), 5 UNITS SQ QPM Insulin Aspart Protamine & Asp (Novolog Mix 70/30), 20 UNITS SQ QAM Insulin Glargine (Lantus), 55 UNIT SQ HS Ipratropium-Albuterol (Combivent Respimat), 1 PUFF INH QID Lidocaine (Lidocaine), 1 PATCH TD QAM Magnesium Oxide (Mag-Ox), 400 MG PO BID Methenamine Hippurate (Methenamine Hippurate), 1 GM PO HS Multiple Vitamins W/ Minerals (Therems M), 1 TAB PO DAILY Omeprazole (Prilosec), 20 MG PO DAILY Oxycodone HCl (Oxycontin), 15 MG PO Q12 Polyethylene Glycol 3350 (Miralax), 17 GM PO BID Polyethylene Glycol-Propylene (Systane Ultra), 1 DROPS OPB BID Potassium Chloride (Klor-Con M20), 40 MEQ PO TID Prednisone (Prednisone), 20 MG PO UD Prednisone Tab (Prednisone), 10 MG PO UD Tamsulosin Hcl (Flomax), 0.4 MG PO HS Torsemide (Torsemide), 60 MG PO QAM Warfarin Sod (Jantoven), 2.5 MG PO DAILY Scheduled PRN Levalbuterol (Levalbuterol HCl), 1 VIAL NEB Q4 PRN for Wheezing Lorazepam (Lorazepam), 0.5 MG PO Q4 PRN for Anxiety/Agitation Nitroglycerin (Nitrostat), 1 TAB SL UD PRN for Chest Pain Simethicone (Gas-X), 80 MG PO QID PRN for Indigestion Trolamine Salicylate (Aspercreme), 1 APPLN TOP BID PRN for ARTHRITIS PAIN Allergies Coded Allergies: No Known Allergies (Unverified , 03/13/17) Physical Exam Vital Signs Date Time Temp Pulse Resp B/P (MAP) Pulse Ox O2 Delivery O2 Flow Rate FiO2 03/13/17 12:33 58 18 109/90 97 Nasal Cannula 2.0 03/13/17 11:21 57 16 122/72 98 Room Air 03/13/17 11:20 81 18 96 Nasal Cannula 3.0 03/13/17 10:44 97 Nasal Cannula 2.0 03/13/17 10:44 97 Nasal Cannula 2.0 03/13/17 10:19 36.6 62 16 100/62 92 Room Air 03/13/17 10:18 56 Physical Exam GENERAL: Awake, alert, chronically ill-appearing, in no distress HENT: Normocephalic, atraumatic. Dry mucous membranes. EYES: Normal conjunctiva. Sclera non-icteric. NECK: Supple. No nuchal rigidity. FROM. No JVD. RESPIRATORY: Breathing labored with accessory chest muscle use. Diminished at bases with scattered wheezes, otherwise anteriorly clear with good air movement. CARDIAC: Regular rate, normal rhythm. Extremities warm and well perfused. Pulses equal. ABDOMEN: Soft, non-distended. Diffuse ecchymosis over lower abdominal wall no fluctuance or induration or tenderness to palpation, or warmth. No rebound or guarding. No masses. RECTAL: Deferred. MUSCULOSKELETAL: Chest examination reveals no tenderness. The back is symmetrical on inspection without obvious abnormality. There is no CVA tenderness to palpation. 1+ lower extremity edema. LOWER EXTREMITIES: Calves are equal size bilaterally and non-tender. No edema. No discoloration. NEURO: Normal sensorium. No sensory or motor deficits noted. SKIN: No rash or jaundice noted. Medical Decision & Procedures ER Provider Diagnostic Interpretation: X-ray: Per my interpretation, radiologist review. CHEST ONE VIEW PORTABLE HISTORY: 86 years-old Male CHEST PAIN COMPARISON: Chest radiograph 03/01/2017 TECHNIQUE: Portable upright AP view of the chest FINDINGS: Cardiac silhouette is upper limits of normal. No pneumothorax. Lungs are mildly hypoinflated with patchy bibasilar opacities, not significantly changed from comparison. Background emphysema is noted. No overt pulmonary edema. Bones are grossly intact. IMPRESSION: No significant change in appearance of the patchy bibasilar opacities suggesting atelectasis or residual pneumonitis. The above report was generated using voice recognition software. It may contain grammatical, syntax or spelling errors. Electronically signed by: Jl Kelley M.D. 03/13/2017 11:08 AM Dictated Date/Time: 03/13/2017 11:06 AM Laboratory Results Test 03/13/17 10:35 03/13/17 10:40 Nucleated RBC Absolute Count (auto) 0.05 K/uL (0-0) Neutrophils % (Manual) 80.5 % Lymphocytes % (Manual) 11.5 % Monocytes % (Manual) 5.3 % Eosinophils % (Manual) 1.8 % Myelocytes % 0.9 % Nucleated Red Blood Cells % 0.7 % Neutrophils # (Manual) 5.39 K/uL (1.4-6.5) Total Absolute Neutrophils 5.39 K/uL (1.4-6.5) Lymphocytes # (Manual) 0.77 K/uL (1.2-3.4) Total Absolute Lymphocytes 0.77 K/uL (1.2-3.4) Monocytes # (Manual) 0.35 K/uL (0.11-0.59) Eosinophils # (Manual) 0.12 K/uL (0-0.5) Myelocytes # 0.06 K/uL (0-0) Hypersegmented Polys 1+ Polychromasia 1+ Hypochromasia PRESENT Anisocytosis PRESENT Pro-B-Type Natriuretic Peptide 280 pg/ml (0-1800) Venous Blood pH 7.37 (7.36-7.41) Venous Blood Partial Pressure CO2 58 mmHg (38.0-50.0) Venous Blood Partial Pressure O2 22 mmHg Venous Blood HCO3 33 mmol/L Venous Blood Oxygen Saturation < 60.0 % Venous Blood Base Excess 6.1 mEq/L Laboratory results reviewed by me Medications Administered Medications (Trade) Dose Ordered Sig/Cole Route Start Time Stop Time Status Last Admin Dose Admin Albuterol/ Ipratropium (Duoneb) 12 ml ONE ONCE INH 03/13/17 10:30 03/13/17 10:32 DC 03/13/17 11:11 12 ML Methylprednisolone Sodium Succinate (Solu-Medrol IV) 125 mg NOW STAT IV 03/13/17 10:24 03/13/17 10:32 DC 03/13/17 10:59 125 MG Magnesium Sulfate (Magnesium Sulfate) 2 gm NOW STAT IV 03/13/17 10:24 03/13/17 10:32 DC 03/13/17 11:00 2 GM Azithromycin 500 mg/Dextrose 255 ml @ 125 mls/hr ONE ONCE IV 03/13/17 10:30 03/13/17 12:32 DC 03/13/17 12:01 125 MLS/HR Lorazepam (Ativan Tab) 0.5 mg Q4 PRN PO 03/13/17 12:45 04/12/17 12:44 03/14/17 04:39 0.5 MG ECG Indication: SOB/dyspnea Rate (beats per minute): 59 Rhythm: sinus bradycardia Findings: LAFB, RBBB, no acute ischemic change, other (normal axis) Comparison ECG Date: 02/19/17 Change: no significant change ED Course 1022: The patient was evaluated in room B4B. A complete history and physical exam was performed. 1024: Ordered Magnesium Sulfate 2 gm IV, Solu-Medrol IV 125 mg IV. 1030: Ordered Azithromycin 500 mg/Dextrose 255 ml @ 125 mls/hr IV, DuoNeb 12 ml INH. 1156: I reevaluated the patient and he is resting comfortably. I discussed the exam findings with him and I discussed the treatment plan. He verbalized complete understanding and agreement. He is going to be evaluated for further treatment. 1220: The patient's case was discussed with Dr. Abdi [facility]. He is going to evaluate the patient for further treatment. Medical Decision I reviewed the patient's past medical history, medications, and the nursing notes as described above. Differential diagnosis: Etiologies such as infections, reactive airway disease, pneumonia, pneumothorax , COPD, CHF, cardiac ischemia, pulmonary embolism, musculoskeletal, gastrointestinal Patient is a 86-year-old gentleman with a past medical history of COPD and CHF who presents to emergency department with worsening shortness of breath in setting of cough congestion and sputum production per history of present illness. On arrival the patient appears dyspneic with increased work of breathing however in no acute distress. Patient has diffuse wheezing and he is diminished at the bases. Considering presentation consistent with COPD the patient was treated with continuous nebs, Solu-Medrol, magnesium, and azithromycin. Otherwise, chest X-ray unremarkable without any signs of new infiltrate. Given the patient's work of breathing and with new oxygen requirement (2 L during the day when normally he is on oxygen at night only) will admit for COPD exacerbation. Patient admitted to the medicine service for further management. Medication Reconcilliation Current Medication List: was personally reviewed by me Blood Pressure Screening Patient's blood pressure: Normal blood pressure Blood pressure disposition: Did not require urgent referral Consults Time Called: 1208 Consulting Physician: TIRSO Potter Returned Call: 1220 The patient's case was discussed with TIRSO Potter. He is going to evaluate the patient for further treatment. Impression Primary Impression: COPD exacerbation Scribe Attestation The scribe's documentation has been prepared under my direction and personally reviewed by me in its entirety. I confirm that the note above accurately reflects all work, treatment, procedures, and medical decision making performed by me. Departure Information Dispostion Being Evaluated By Hospitalist Referrals Milka at [facility] (PCP)
[2017-03-13 10:50] LABS: VEN BLOOD GAS BASE EXCESS 6.1 mEq/L; VENOUS BLOOD GAS PCO2 58 mmHg (38.0-50.0); VENOUS BLOOD GAS PO2 22 mmHg
[2017-03-13] MEDS ORDERED: GUAI1TAB55 PO (10:52)
[2017-03-13 10:57] LABS: HEMATOCRIT 38.9 % (42-52); MEAN CELL VOLUME 91.7 fL (80-100); MEAN CORPUSCULAR HEMOGLOBIN 27.4 pg (25-34); MEAN CORPUSCULAR HGB CONC 29.8 g/dl (32-36); MEAN PLATELET VOLUME 9.9 fL (7.4-10.4); PLATELET COUNT 201 K/uL (130-400); RED BLOOD COUNT 4.24 M/uL (4.7-6.1); WHITE BLOOD COUNT 6.69 K/uL (4.8-10.8)
[2017-03-13 11:01] LABS: VEN BLD GAS O2 SATURATION < 60.0 %
[2017-03-13] MEDS ORDERED: PRED20TA PO (11:03)
[2017-03-13] MEDS ORDERED: PRED10TA PO (11:05)
[2017-03-13 11:07] LABS: INR 1.9 (0.9-1.1); PROTHROMBIN TIME (PATIENT) 21.4 SECONDS (9.0-12.0)
[2017-03-13] MEDS ORDERED: WARF2.5T8 PO (11:07)
--- NOTE | 2017-03-13 11:09 | DIAGNOSTIC IMAGING REPORT ---
CHEST ONE VIEW PORTABLE HISTORY: 86 years-old Male CHEST PAIN COMPARISON: Chest radiograph 03/01/2017 TECHNIQUE: Portable upright AP view of the chest FINDINGS: Cardiac silhouette is upper limits of normal. No pneumothorax. Lungs are mildly hypoinflated with patchy bibasilar opacities, not significantly changed from comparison. Background emphysema is noted. No overt pulmonary edema. Bones are grossly intact. IMPRESSION: No significant change in appearance of the patchy bibasilar opacities suggesting atelectasis or residual pneumonitis. The above report was generated using voice recognition software. It may contain grammatical, syntax or spelling errors. Electronically signed by: Jl Kelley M.D. 03/13/2017 11:08 AM Dictated Date/Time: 03/13/2017 11:06 AM
[2017-03-13 11:16] LABS: BLOOD UREA NITROGEN 25 mg/dl (7-18); BUN/CREATININE RATIO 12.7 (10-20); CALCIUM 8.5 mg/dl (8.5-10.1); CARBON DIOXIDE 32 mmol/L (21-32); CHLORIDE 105 mmol/L (98-107); GLUCOSE 136 mg/dl (70-99); POTASSIUM 4.4 mmol/L (3.5-5.1); SODIUM 141 mmol/L (136-145)
[2017-03-13] MEDS ORDERED: [UNRECOGNIZED DRUG - CODE] TOP (11:16)
[2017-03-13] MEDS ORDERED: OXGN (11:20)
[2017-03-13 11:29] LABS: ANISOCYTOSIS PRESENT; COMPLETE YES; EOSINOPHIL % 1.8 %; HYPERSEGMENTED POLYS 1+; HYPOCHROMIA PRESENT; LYMPH ABS # 0.77 K/uL (1.2-3.4); LYMPHOCYTE % 11.5 %; MYELOCYTE % 0.9 %; NEUTROPHILS % 80.5 %; POLYCHROMASIA 1+
[2017-03-13] MEDS ORDERED: VANCOMYCIN INJ 1,000 MG in SODIUM CHLORIDE 0.9% 250ML 250 ML IV SCH (12:38)
[2017-03-13] MEDS ORDERED: NITROGLYCERIN 0.4 MG SL PER TAB CHARGE SL PRN (12:45)
[2017-03-13] MEDS ORDERED: LEVOFLOXACIN / D5W 500 MG in PREMIXED IN D5W 100 ML IV SCH (12:45)
[2017-03-13] MEDS ORDERED: ACETAMINOPHEN 325 MG TAB PO PRN (12:45)
[2017-03-13] MEDS ORDERED: GLUCAGON FOR INJ 1 MG VIAL SQ PRN (12:45)
[2017-03-13] MEDS ORDERED: LORAZEPAM 0.5 MG TAB PO PRN (12:45)
[2017-03-13] MEDS ORDERED: GLUCOSE 40% GEL 15 GM TUBE PO PRN (12:45)
[2017-03-13] MEDS ORDERED: ONDANSETRON INJ 2 MG/ML 2 ML VIAL IV PRN (12:45)
[2017-03-13] MEDS ORDERED: DEXTROSE 50% 50 ML SYR IV PRN (12:45)
[2017-03-13] MEDS ORDERED: GLUCOSE 10 TABS/TUBE PO PRN (12:45)
--- NOTE | 2017-03-13 12:52 | History and Physical ---
History & Physical Date & Time of Service: Mar 13, 2017 at 12:50 Chief Complaint: Shortness Of Breath Primary Care Physician: Wilver Franco M.D. History of Present Illness Source: patient, family, hospital records The patient is an 86-year-old male who reports worsening shortness of breath over the past 3 mornings, that was bad enough this morning that after not responding to Xopenex and with his pulse ox in the 70s, he was brought to the emergency department for assessment. He's had a worsening productive cough over the past 3 days, but has not had any chest pain or lightheadedness or dizziness. His reports that these symptoms are similar to what brought him into the hospital for admission his last visit. Past Medical/Surgical History Medical Problems: (1) Anemia Status: Chronic (2) Asthma Status: Chronic (3) COPD (chronic obstructive pulmonary disease) Status: Chronic (4) Coronary artery disease Status: Chronic (5) CVA (cerebrovascular accident) Status: Resolved (6) Essential hypertension Status: Chronic (7) HTN (hypertension) Status: Chronic (8) Hypercholesterolemia Status: Chronic (9) Hyperparathyroidism Status: Chronic (10) Hypotension Status: Chronic (11) AL (myocardial infarction) Status: Resolved (12) Peripheral vascular disease Status: Chronic (13) TIA (transient ischemic attack) Status: Resolved Surgical Problems: (1) H/O heart artery stent Status: Resolved Family History FH: heart disease Hypertension Social History Smoking Status: Former Smoker Smokeless Tobacco Use: No Alcohol Use: none Drug Use: none Marital Status: Housing status: lives with family, [facility] Occupational Status: retired Immunizations History of Influenza Vaccine: Yes Influenza Vaccine Date: Jun 08, 2013 History of Tetanus Vaccine?: Unknown History of Pneumococcal: Yes History of Hepatitis B Vaccine: Unknown Multi-Drug Resistant Organisms History of MDRO: Yes Type of MDRO: MRSA Allergies Coded Allergies: No Known Allergies (Unverified , 03/13/17) Home Medications Scheduled Acetaminophen (Tylenol), 1,000 MG PO Q12 Aspirin (Aspirin Chewable), 81 MG PO DAILY Atenolol (Tenormin), 12.5 MG PO DAILY Atorvastatin (Atorvastatin Calcium), 20 MG PO HS Bisacodyl (Bisacodyl), 5 MG PO BID Ciclopirox (Ciclodan), 1 APPLN TOP QPM Clopidogrel (Plavix), 75 MG PO DAILY Docusate Sodium (Colace), 100 MG PO BID Duloxetine HCl (Duloxetine HCl), 30 MG PO DAILY Dutasteride (Dutasteride), 0.5 MG PO DAILY Famotidine (Famotidine), 20 MG PO HS Fiber Laxative (Fiber Laxative), 1 TAB PO DAILY Fludrocortisone Acetate (Fludrocortisone Acetate), 0.1 MG PO BID Fluticasone Prop/Salmeterol (Advair Diskus 250-50 Mcg/Dose), 1 PUFF INH BID Fluticasone Propionate (Fluticasone Propionate), 2 SPRAYS NA DAILY Gabapentin (Gabapentin), 800 MG PO TID Guaifenesin Ext Rel (Mucinex Ext Rel), 1,200 MG PO Q12 Home O2 Therapy (Oxygen), 1 LITER NA PRN Insulin Aspart 70/30 (Novolog Mix 70/30), 5 UNITS SQ QPM Insulin Aspart Protamine & Asp (Novolog Mix 70/30), 20 UNITS SQ QAM Insulin Glargine (Lantus), 55 UNIT SQ HS Ipratropium-Albuterol (Combivent Respimat), 1 PUFF INH QID Lidocaine (Lidocaine), 1 PATCH TD QAM Magnesium Oxide (Mag-Ox), 400 MG PO BID Methenamine Hippurate (Methenamine Hippurate), 1 GM PO HS Multiple Vitamins W/ Minerals (Therems M), 1 TAB PO DAILY Omeprazole (Prilosec), 20 MG PO DAILY Oxycodone HCl (Oxycontin), 15 MG PO Q12 Polyethylene Glycol 3350 (Miralax), 17 GM PO BID Polyethylene Glycol-Propylene (Systane Ultra), 1 DROPS OPB BID Potassium Chloride (Klor-Con M20), 40 MEQ PO TID Prednisone (Prednisone), 20 MG PO UD Prednisone Tab (Prednisone), 10 MG PO UD Tamsulosin Hcl (Flomax), 0.4 MG PO HS Torsemide (Torsemide), 60 MG PO QAM Warfarin Sod (Jantoven), 2.5 MG PO DAILY Scheduled PRN Levalbuterol (Levalbuterol HCl), 1 VIAL NEB Q4 PRN for Wheezing Lorazepam (Lorazepam), 0.5 MG PO Q4 PRN for Anxiety/Agitation Nitroglycerin (Nitrostat), 1 TAB SL UD PRN for Chest Pain Simethicone (Gas-X), 80 MG PO QID PRN for Indigestion Trolamine Salicylate (Aspercreme), 1 APPLN TOP BID PRN for ARTHRITIS PAIN Review of Systems The patient denies palpitations,lower extremity swelling, vision change, hearing change, sore throat, fevers, chills, sweats, weight change, nausea, vomiting, diarrhea or constipation, abdominal pain, pelvic pain, blood in urine or stool, dysuria, urinary frequency or urgency, lightheadedness, dizziness, headache, memory loss, rash, abnormal bruising or bleeding, imbalance, focal or generalized weakness, numbness or tingling in arms or legs, generalized arthralgias or myalgias, back or neck pain, night sweats, or allergy symptoms. The review of systems is otherwise negative other than for that already noted above, and at least 10 systems have been reviewed. Physical Exam Vital Signs Date Time Temp Pulse Resp B/P (MAP) Pulse Ox O2 Delivery O2 Flow Rate FiO2 03/13/17 12:33 58 18 109/90 97 Nasal Cannula 2.0 03/13/17 11:21 57 16 122/72 98 Room Air 03/13/17 10:44 97 Nasal Cannula 2.0 03/13/17 10:44 97 Nasal Cannula 2.0 03/13/17 10:19 36.6 62 16 100/62 92 Room Air 03/13/17 10:18 56 The patient is awake, well-developed and adequately nourished, alert and oriented 3, normocephalic and atraumatic, lying in bed and in no acute distress. HEENT--PERRL, EOMI, mucous membranes and oropharynx dry. Neck--supple, no JVD or bruits, thyroid normal, trachea midline, no adenopathy. Heart--normal S1 and S2, no extra beats, no murmurs, rubs or gallops. Lungs--crackles throughout, no respiratory distress, no accessory muscle use. Abdomen--normal bowel sounds and soft, nontender and nondistended, no hernias or masses, no organomegaly. Extremities--no cyanosis, clubbing. There is bilateral pretibial 1+ pitting Edema. There are good distal pulses b/l. Dermatologic--normal skin turgor, normal color, warm and dry, no abnormal lymph nodes. Ecchymoses bilateral extremities left worse than right. Neurologic--cranial nerves II through XII grossly intact. Rheumatologic--normal range of motion, nontender, muscles and joints. Psychiatric--normal affect. Diagnostics Laboratory Results Results Past 24 Hours Test 03/13/17 10:35 03/13/17 10:40 Range/Units White Blood Count 6.69 4.8-10.8 K/uL Red Blood Count 4.24 4.7-6.1 M/uL Hemoglobin 11.6 14.0-18.0 g/dL Hematocrit 38.9 42-52 % Mean Corpuscular Volume 91.7 80-100 fL Mean Corpuscular Hemoglobin 27.4 25-34 pg Mean Corpuscular Hemoglobin Concent 29.8 32-36 g/dl Platelet Count 201 130-400 K/uL Mean Platelet Volume 9.9 7.4-10.4 fL RDW Standard Deviation 63.7 36.4-46.3 fL RDW Coefficient of Variation 19.2 11.5-14.5 % Nucleated RBC Absolute Count (auto) 0.05 0-0 K/uL Neutrophils % (Manual) 80.5 % Lymphocytes % (Manual) 11.5 % Monocytes % (Manual) 5.3 % Eosinophils % (Manual) 1.8 % Myelocytes % 0.9 % Nucleated Red Blood Cells % 0.7 % Neutrophils # (Manual) 5.39 1.4-6.5 K/uL Total Absolute Neutrophils 5.39 1.4-6.5 K/uL Lymphocytes # (Manual) 0.77 1.2-3.4 K/uL Total Absolute Lymphocytes 0.77 1.2-3.4 K/uL Monocytes # (Manual) 0.35 0.11-0.59 K/uL Eosinophils # (Manual) 0.12 0-0.5 K/uL Myelocytes # 0.06 0-0 K/uL Hypersegmented Polys 1+ Polychromasia 1+ Hypochromasia PRESENT Anisocytosis PRESENT Prothrombin Time 21.4 9.0-12.0 SECONDS Prothromb Time International Ratio 1.9 0.9-1.1 Sodium Level 141 136-145 mmol/L Potassium Level 4.4 3.5-5.1 mmol/L Chloride Level 105 98-107 mmol/L Carbon Dioxide Level 32 21-32 mmol/L Anion Gap 4.0 3-11 mmol/L Blood Urea Nitrogen 25 7-18 mg/dl Creatinine 2.00 0.60-1.40 mg/dl Est Creatinine Clear Calc Drug Dose 33.6 ml/min Estimated GFR () 34.0 Estimated GFR (Non- 29.3 BUN/Creatinine Ratio 12.7 10-20 Random Glucose 136 70-99 mg/dl Calcium Level 8.5 8.5-10.1 mg/dl Troponin I < 0.015 0-0.045 ng/ml Pro-B-Type Natriuretic Peptide 280 0-1800 pg/ml Venous Blood pH 7.37 7.36-7.41 Venous Blood Partial Pressure CO2 58 38.0-50.0 mmHg Venous Blood Partial Pressure O2 22 mmHg Venous Blood HCO3 33 mmol/L Venous Blood Oxygen Saturation < 60.0 % Venous Blood Base Excess 6.1 mEq/L Microbiology Results 03/13/17 Blood Culture, Received Pending 03/13/17 Blood Culture, Received Pending Diagnostic Radiology Patient Name: ESTELITA MCMILLAN Unit Number: [id number] Dictated: 03/13/171105 Transcribed: 03/13/171105 JRB Printed Date/Time: [~ rep prt dt]/[~ rep prt tm] [~ rep ct labl] - [~ rep ct ivnm] [facility] [place] [address] Dictated: 03/13/171105 Transcribed: 03/13/171105 JRB Printed Date/Time: [~ rep prt dt]/[~ rep prt tm] [~ rep ct labl] - [~ rep ct ivnm] CHEST ONE VIEW PORTABLE HISTORY: 86 years-old Male CHEST PAIN COMPARISON: Chest radiograph 03/01/2017 TECHNIQUE: Portable upright AP view of the chest FINDINGS: Cardiac silhouette is upper limits of normal. No pneumothorax. Lungs are mildly hypoinflated with patchy bibasilar opacities, not significantly changed from comparison. Background emphysema is noted. No overt pulmonary edema. Bones are grossly intact. IMPRESSION: No significant change in appearance of the patchy bibasilar opacities suggesting atelectasis or residual pneumonitis. The above report was generated using voice recognition software. It may contain grammatical, syntax or spelling errors. Electronically signed by: Jl Kelley M.D. 03/13/2017 11:08 AM Dictated Date/Time: 03/13/2017 11:06 AM The status of this report is Signed. Draft = Not yet reviewed or approved by Radiologist. Signed = Reviewed and approved by Radiologist. <AttendingPhy></AttendingPhy> <FamilyPhy>Wilver Franco M.D.</FamilyPhy> < PrimaryPhy>Wilver Franco M.D.</PrimaryPhy> <UnitNumber>[id number]</UnitNumber> < VisitNumber>[id number]</VisitNumber> <PatientName>ESTELITA MCMILLAN</PatientName> <DateOfBirth>1930</DateOfBirth> <Location>[facility]</Location> <ServiceDate></ServiceDate> <MNE>ESINDI</MNE> <OrderingPhy>John Shine M.D.</ OrderingPhy> <OrderingPhyMNE>f rep ord dr villareal</OrderingPhyMNE> <DictatingPhyMNE> f rep dict dr villareal</DictatingPhyMNE> <CCListMNE>f rep ct dionna</CCListMNE> < AdmittingPhyMNE>f pt admit dr villareal</AdmittingPhyMNE> <AttendingPhyMNE>f pt attend dr villareal</AttendingPhyMNE> <ConsultingPhyMNE>f pt consult dr villareal</ConsultingPhyMNE> <FamilyPhyMNE>f pt fam dr villareal</FamilyPhyMNE> <OtherPhyMNE>f pt other dr villareal</OtherPhyMNE> < PrimaryPhyMNE>f pt prim care dr villareal</PrimaryPhyMNE> <ReferringPhyMNE>f pt referring dr villareal</ReferringPhyMNE> EKG EKG shows sinus bradycardia at 59 bpm, right bundle-branch block, left anterior fascicular block, no acute ST-T changes. Impression Assessment and Plan Acute respiratory failure with hypoxia and hypercapnia/Bilateral lower lobe pneumonia-- He presently lives at the [facility]. Placed on vancomycin IV, Zosyn IV, Levaquin IV. Xopenex/Atrovent nebulizers to use every 6 hours while awake and every 2 hours when necessary. Solu-Medrol 40 mg IV every 8 hours. Hold Advair Diskus, Combivent, prednisone 30 mg daily. Continue guaifenesin extended release 1200 mg by mouth twice a day Continue nasal cannula but increased from 1 L when necessary to titrate continuously to keep pulse ox greater than or equal to 92%. CAD/hypertension/history of AL/coronary artery stent/cerebrovascular disease/ history of TIA/CHF-- The patient will be admitted to telemetry for serial cardiac enzymes, cardiac rhythm monitoring and a 2-D echocardiogram with Dopplers. Continue aspirin 81 mg chewable by mouth daily, atenolol 12.5 mg by mouth daily , clopidogrel 75 mg by mouth daily, mag oxide 400 mg by mouth twice a day, warfarin 2.5 mg by mouth daily, torsemide 60 mg by mouth every morning, Klor- Con 40 mEq by mouth 3 times a day Orthostasis--continue fludrocortisone 0.1 mg by mouth twice a day Diabetes mellitus--continue Lantus 55 units subcutaneous at bedtime hold NovoLog Mix 70/30. Place on Accu-Cheks before meals and at bedtime with NovoLog coverage per scale. Hyperlipidemia--continue atorvastatin 20 mg by mouth at bedtime. GERD--continue famotidine 20 mg by mouth at bedtime and change omeprazole 20 mg by mouth daily to pantoprazole 40 mg by mouth daily. BPH/chronic indwelling Ball--continue dutasteride 0.5 mg by mouth daily, methenamine hippurate 1 g by mouth at bedtime, and tamsulosin 0.4 mg by mouth at bedtime. GPN--continue gabapentin 800 mg by mouth 3 times a day. Depression--continue duloxetine 30 mg by mouth daily. Chronic pain syndrome--continue lidocaine patch, and OxyContin 15 mg by mouth every 12 hours. Constipation--continue bisacodyl 5 mg by mouth twice a day, Colace 100 mg by mouth twice a day, MiraLAX 17 g by mouth twice a day and Fiber-Lax one tablet by mouth daily. Level of Care Telemetry Advanced Directives Existing Advance Directive: No Existing Living Will: No Existing Power of Can Top Setter: No Resuscitation Status FULL RESUSCITATION VTE Prophylaxis VTE Risk Assessment Done? Y/N: Yes Risk Level: Moderate Given or contraindicated: Warfarin (Coumadin) Social Service Consult Lives in Personal Care
[2017-03-13] MEDS ORDERED: PIPERACILL/TAZOBAC IV 4.5 GM in DEXTROSE 5% 100ML IV SCH ×2 (13:15→20:00)
[2017-03-13] MEDS ORDERED: IPRATROPIUM BROMIDE NEB SOLN 0.02% 2.5 ML VIAL INH PRN (13:30)
[2017-03-13] MEDS ORDERED: LEVALBUTEROL 1.25MG/0.5ML NEB INH PRN (13:30)
[2017-03-13] MEDS ORDERED: PIPERACILL/TAZOBAC IV 3.375 GM in DEXTROSE 5% 100ML 100 ML IV SCH (14:00)
[2017-03-13] MEDS ORDERED: VANCOMYCIN INJ 2,500 MG in SODIUM CHLORIDE 0.9% 500ML 500 ML IV SCH (14:00)
[2017-03-13] MEDS: LEVALBUTEROL 1.25MG/0.5ML NEB INH SCH ×2 (14:20→19:54)
[2017-03-13] MEDS: IPRATROPIUM BROMIDE NEB SOLN 0.02% 2.5 ML VIAL INH SCH ×2 (14:20→19:54)
[2017-03-13] MEDS ORDERED: LEVALBUTEROL/IPRATROPIUM NEB INH SCH (15:00)
[2017-03-13] MEDS ORDERED: LEVOFLOXACIN CONSULT ACTIVE PRN (15:00)
[2017-03-13] MEDS ORDERED: VANCOMYCIN CONSULT ACTIVE PRN (15:30)
[2017-03-13] MEDS ORDERED: PIPERACILL/TAZOBAC CONSULT ACTIVE PRN (15:30)
--- NOTE | 2017-03-13 15:53 | Pharmacy Progress Note ---
Pharmacy Antibiotic Consult Date of Service: Mar 13, 2017. Pharmacy Dosing Scope Pharmacy is consulted to initiate vancomycin, zosyn, and levofloxacin IV dosing therapy, order appropriate labs and adjust drug dose/frequency. Subjective The patient is a 86 year old male admitted on Mar 13, 2017 at 12:48. Objective Height (Feet): 6 Height (Inches): 1.00 Weight (Kilograms): 101.700 Lab Results (24hrs): Test 03/13/17 10:35 03/13/17 10:40 White Blood Count 6.69 K/uL (4.8-10.8) Red Blood Count 4.24 M/uL (4.7-6.1) Hemoglobin 11.6 g/dL (14.0-18.0) Hematocrit 38.9 % (42-52) Mean Corpuscular Volume 91.7 fL (80-100) Mean Corpuscular Hemoglobin 27.4 pg (25-34) Mean Corpuscular Hemoglobin Concent 29.8 g/dl (32-36) Platelet Count 201 K/uL (130-400) Mean Platelet Volume 9.9 fL (7.4-10.4) RDW Standard Deviation 63.7 fL (36.4-46.3) RDW Coefficient of Variation 19.2 % (11.5-14.5) Nucleated RBC Absolute Count (auto) 0.05 K/uL (0-0) Neutrophils % (Manual) 80.5 % Lymphocytes % (Manual) 11.5 % Monocytes % (Manual) 5.3 % Eosinophils % (Manual) 1.8 % Myelocytes % 0.9 % Nucleated Red Blood Cells % 0.7 % Neutrophils # (Manual) 5.39 K/uL (1.4-6.5) Total Absolute Neutrophils 5.39 K/uL (1.4-6.5) Lymphocytes # (Manual) 0.77 K/uL (1.2-3.4) Total Absolute Lymphocytes 0.77 K/uL (1.2-3.4) Monocytes # (Manual) 0.35 K/uL (0.11-0.59) Eosinophils # (Manual) 0.12 K/uL (0-0.5) Myelocytes # 0.06 K/uL (0-0) Hypersegmented Polys 1+ Polychromasia 1+ Hypochromasia PRESENT Anisocytosis PRESENT Prothrombin Time 21.4 SECONDS (9.0-12.0) Prothromb Time International Ratio 1.9 (0.9-1.1) Sodium Level 141 mmol/L (136-145) Potassium Level 4.4 mmol/L (3.5-5.1) Chloride Level 105 mmol/L (98-107) Carbon Dioxide Level 32 mmol/L (21-32) Anion Gap 4.0 mmol/L (3-11) Blood Urea Nitrogen 25 mg/dl (7-18) Creatinine 2.00 mg/dl (0.60-1.40) Est Creatinine Clear Calc Drug Dose 33.6 ml/min Estimated GFR () 34.0 Estimated GFR (Non- 29.3 BUN/Creatinine Ratio 12.7 (10-20) Random Glucose 136 mg/dl (70-99) Calcium Level 8.5 mg/dl (8.5-10.1) Troponin I < 0.015 ng/ml (0-0.045) Pro-B-Type Natriuretic Peptide 280 pg/ml (0-1800) Venous Blood pH 7.37 (7.36-7.41) Venous Blood Partial Pressure CO2 58 mmHg (38.0-50.0) Venous Blood Partial Pressure O2 22 mmHg Venous Blood HCO3 33 mmol/L Venous Blood Oxygen Saturation < 60.0 % Venous Blood Base Excess 6.1 mEq/L Micro Results: Date/Time Source Procedure Growth Status 03/13/17 11:05 Blood Blood Culture Pending Received 03/13/17 10:35 Blood Blood Culture Pending Received 03/13/17 15:30 Nasal MRSA DNA Surveillance Screen Pending [place] Batch Assessment & Plan Assessment: * 86 yo male admitted with B/L pneumonia * SCr 2.0, CrCl 33.6 * T1/2 ~21 hours, Ke 0.03 Plan: * Vancomycin loading dose of 2500 mg x 1 * Maintenance dose of 1750 mg q24H * Will reassess in morning to order level * Goal trough 15-20 mcg/mL Pharmacy will continue to follow and will adjust dose/frequency as necessary. Thank you
[2017-03-13] MEDS ORDERED: AVODART: ORDER AWAITING ACTION SCH (16:00)
[2017-03-13] MEDS ORDERED: LEVOFLOXACIN 750MG / D5W IV SCH (16:00)
[2017-03-13] MEDS: POTASSIUM CHLORIDE 20 MEQ TABCR PO SCH ×2 (16:26→21:01)
[2017-03-13] MEDS: SIMETHICONE 80 MG CHEW PO SCH ×3 (16:27→20:59)
[2017-03-13] MEDS: GABAPENTIN 800 MG TAB PO SCH ×2 (16:27→20:59)
[2017-03-13] MEDS: WARFARIN SOD 2.5 MG TAB PO SCH (16:28)
[2017-03-13] MEDS: LEVOFLOXACIN 750MG / D5W IV SCH (16:32)
[2017-03-13] MEDS: INSULIN ASPART 100 UNITS/ML 3 ML PEN SC SCH ×2 (17:47→20:58)
[2017-03-13] MEDS: METHYLPREDNISOLONE IV 40 MG in SYRINGE 0 ML IV SCH (17:49)
[2017-03-13] MEDS ORDERED: NURSING VERBAL MED ORDER ONE (20:45)
[2017-03-13] MEDS: OXYCODONE HCL 15 MG TABCR (OXYCONTIN) PO SCH (20:53)
[2017-03-13] MEDS: ARTIFICIAL TEARS OP SOLN OPB SCH ×2 (20:53)
[2017-03-13] MEDS: PIPERACILL/TAZOBAC IV 4.5 GM in DEXTROSE 5% 100ML IV SCH (20:53)
[2017-03-13] MEDS: DUTASTERIDE 0.5MG PO SCH ×2 (20:54)
[2017-03-13] MEDS: POLYETHYLENE (MIRALAX) 17 GM PACK PO SCH (20:55)
[2017-03-13] MEDS: DOCUSATE SODIUM 100 MG CAP PO SCH (20:55)
[2017-03-13] MEDS: MAGNESIUM OXIDE 400 MG TAB PO SCH (20:56)
[2017-03-13] MEDS: ACETAMINOPHEN 500 MG TAB PO SCH (20:56)
[2017-03-13] MEDS: INSULIN GLARGINE SOLOSTAR 100 UNITS/ML 3 ML PEN SQ SCH (20:59)
[2017-03-13] MEDS: GUAIFENESIN 600 MG TABCR PO SCH (20:59)
[2017-03-13] MEDS: BISACODYL 5 MG TABEC PO SCH (21:00)
[2017-03-13] MEDS: TAMSULOSIN HCL 0.4 MG CAP PO SCH (21:00)
[2017-03-13] MEDS: FLUDROCORTISONE ACETATE 0.1 MG TAB PO SCH (21:01)
[2017-03-13] MEDS: METHENAMINE HIPPURATE 1 GM TAB PO SCH (21:02)
[2017-03-13] MEDS: ATORVASTATIN 20 MG TAB PO SCH (21:03)
[2017-03-13] MEDS: FAMOTIDINE 20 MG TAB PO SCH (21:03)
[2017-03-13 21:12] LABS: CKMB/CK RATIO 2.7 (0-3.0)
[2017-03-14] VITALS (12 sets, daily range): BP systolic 104–134; BP diastolic 65–77; PULSE 57–67; TEMP 36.4–36.9; O2SAT 92–97
[2017-03-14] MEDS: METHYLPREDNISOLONE IV 40 MG in SYRINGE 0 ML IV SCH ×3 (01:23→18:28)
[2017-03-14] MEDS: IPRATROPIUM BROMIDE NEB SOLN 0.02% 2.5 ML VIAL INH SCH ×4 (01:37→19:32)
[2017-03-14] MEDS: LEVALBUTEROL 1.25MG/0.5ML NEB INH SCH ×4 (01:37→19:32)
[2017-03-14] MEDS: PIPERACILL/TAZOBAC IV 4.5 GM in DEXTROSE 5% 100ML IV SCH ×3 (04:39→20:59)
[2017-03-14 05:00] LABS: INR 2.3 (0.9-1.1); PARTIAL THROMBOPLASTIN RATIO 1.4; PROTHROMBIN TIME (PATIENT) 25.5 SECONDS (9.0-12.0)
[2017-03-14 05:10] LABS: COMPLETE YES; HEMATOCRIT 36.5 % (42-52); IG% 0.9 %; LYMPH % 6.1 %; LYMPH ABS # 0.49 K/uL (1.2-3.4); MEAN CELL VOLUME 92.2 fL (80-100); MEAN CORPUSCULAR HEMOGLOBIN 27.3 pg (25-34); MEAN CORPUSCULAR HGB CONC 29.6 g/dl (32-36); MEAN PLATELET VOLUME 10.7 fL (7.4-10.4); PLATELET COUNT 225 K/uL (130-400); RED BLOOD COUNT 3.96 M/uL (4.7-6.1); WHITE BLOOD COUNT 7.99 K/uL (4.8-10.8)
[2017-03-14 05:17] LABS: ALT/SGPT 28 U/L (12-78); AST/SGOT 9 U/L (15-37); BLOOD UREA NITROGEN 30 mg/dl (7-18); CALCIUM 7.6 mg/dl (8.5-10.1); CARBON DIOXIDE 32 mmol/L (21-32); CHLORIDE 105 mmol/L (98-107); GLUCOSE 131 mg/dl (70-99); MAGNESIUM 3.2 mg/dl (1.8-2.4); POTASSIUM 4.6 mmol/L (3.5-5.1); SODIUM 140 mmol/L (136-145)
[2017-03-14 05:22] LABS: ALKALINE PHOSPHATASE 71 U/L (45-117); CKMB/CK RATIO 2.3 (0-3.0)
[2017-03-14] MEDS: ASPIRIN 81 MG CHEW PO SCH (07:39)
[2017-03-14] MEDS: LIDODERM (LIDOCAINE) PATCH 5% TD SCH (07:39)
[2017-03-14] MEDS: BISACODYL 5 MG TABEC PO SCH ×2 (07:39→21:03)
[2017-03-14] MEDS: PANTOprazole SOD 40 MG TAB PO SCH (07:39)
[2017-03-14] MEDS: CLOPIDOGREL BISULFATE 75 MG TAB PO SCH (07:39)
[2017-03-14] MEDS: TORSEMIDE 20 MG TAB PO SCH (07:40)
[2017-03-14] MEDS: MAGNESIUM OXIDE 400 MG TAB PO SCH ×2 (07:41→20:58)
[2017-03-14] MEDS: FLUDROCORTISONE ACETATE 0.1 MG TAB PO SCH ×2 (07:41→20:57)
[2017-03-14] MEDS: DULOXETINE (CYMBALTA) 30 MG CAP PO SCH (07:42)
[2017-03-14] MEDS: OXYCODONE HCL 15 MG TABCR (OXYCONTIN) PO SCH ×2 (07:42→21:03)
[2017-03-14] MEDS: SIMETHICONE 80 MG CHEW PO SCH ×4 (07:43→20:59)
[2017-03-14] MEDS: POTASSIUM CHLORIDE 20 MEQ TABCR PO SCH ×3 (07:43→20:58)
[2017-03-14] MEDS: DOCUSATE SODIUM 100 MG CAP PO SCH ×2 (07:44→20:55)
[2017-03-14] MEDS: GUAIFENESIN 600 MG TABCR PO SCH ×2 (07:44→20:56)
[2017-03-14] MEDS: GABAPENTIN 800 MG TAB PO SCH ×3 (07:44→20:56)
[2017-03-14] MEDS: ACETAMINOPHEN 500 MG TAB PO SCH ×2 (07:45→21:00)
[2017-03-14] MEDS: CEROVITE ADV FORMULA TAB PO SCH (07:45)
[2017-03-14] MEDS: PSYLLIUM 58.6% PWD PACK S\\F PO SCH (07:46)
[2017-03-14] MEDS: POLYETHYLENE (MIRALAX) 17 GM PACK PO SCH ×2 (07:46→20:58)
[2017-03-14] MEDS: ARTIFICIAL TEARS OP SOLN OPB SCH ×4 (07:47→20:57)
[2017-03-14] MEDS: FLUTICASONE PROPIONATE NA SPR 16 GM BTL SCH (07:47)
[2017-03-14] MEDS: INSULIN ASPART 100 UNITS/ML 3 ML PEN SC SCH ×4 (07:54→21:12)
--- NOTE | 2017-03-14 07:54 | Progress Note ---
Subjective Date of Service: Mar 14, 2017. Subjective Please see PA note for attending attestation Problem List Medical Problems: (1) Acute on chronic renal failure Status: Acute (2) Confusion Status: Acute (3) COPD exacerbation Status: Acute (4) Fever Status: Acute (5) Hypoglycemia Status: Acute (6) Hypoxia Status: Acute (7) Hypoxia Status: Acute (8) Influenza A Status: Acute (9) Malfunction of Ball catheter Status: Acute (10) Reactive airway disease Status: Acute (11) Respiratory distress Status: Acute Objective Vital Signs Date Time Temp Pulse Resp B/P (MAP) Pulse Ox O2 Delivery O2 Flow Rate FiO2 03/14/17 06:54 62 18 93 Nasal Cannula 2.0 03/14/17 04:00 96 Nasal Cannula 2.0 03/14/17 03:42 36.5 62 19 112/71 (85) 95 Nasal Cannula 2.0 03/14/17 01:37 57 18 97 Nasal Cannula 2.0 03/14/17 00:00 95 Nasal Cannula 2.0 03/13/17 23:14 36.8 62 22 97/61 (73) 96 Nasal Cannula 2.0 03/13/17 20:45 96 Nasal Cannula 2.0 03/13/17 20:03 70 18 94 Nasal Cannula 2.0 03/13/17 19:47 36.5 60 22 96/51 (66) 97 Nasal Cannula 2.0 03/13/17 16:00 95 Nasal Cannula 2.0 03/13/17 15:00 36.6 16 116/58 (77) 96 Nasal Cannula 2.0 03/13/17 14:35 36.6 70 16 116/58 91 2.0 03/13/17 14:02 61 16 110/ 92 Nasal Cannula 2.0 03/13/17 13:30 61 16 106/60 94 Nasal Cannula 2.0 03/13/17 13:11 58 03/13/17 12:33 58 18 109/90 97 Nasal Cannula 2.0 03/13/17 11:21 57 16 122/72 98 Room Air 03/13/17 11:20 81 18 96 Nasal Cannula 3.0 03/13/17 10:44 97 Nasal Cannula 2.0 03/13/17 10:44 97 Nasal Cannula 2.0 03/13/17 10:19 36.6 62 16 100/62 92 Room Air 03/13/17 10:18 56 Laboratory Results Last 24 Hours Test 03/13/17 10:35 03/13/17 10:40 03/13/17 16:28 03/13/17 20:12 White Blood Count 6.69 K/uL Red Blood Count 4.24 M/uL Hemoglobin 11.6 g/dL Hematocrit 38.9 % Mean Corpuscular Volume 91.7 fL Mean Corpuscular Hemoglobin 27.4 pg Mean Corpuscular Hemoglobin Concent 29.8 g/dl Platelet Count 201 K/uL Mean Platelet Volume 9.9 fL RDW Standard Deviation 63.7 fL RDW Coefficient of Variation 19.2 % Nucleated RBC Absolute Count (auto) 0.05 K/uL Neutrophils % (Manual) 80.5 % Lymphocytes % (Manual) 11.5 % Monocytes % (Manual) 5.3 % Eosinophils % (Manual) 1.8 % Myelocytes % 0.9 % Nucleated Red Blood Cells % 0.7 % Neutrophils # (Manual) 5.39 K/uL Total Absolute Neutrophils 5.39 K/uL Lymphocytes # (Manual) 0.77 K/uL Total Absolute Lymphocytes 0.77 K/uL Monocytes # (Manual) 0.35 K/uL Eosinophils # (Manual) 0.12 K/uL Myelocytes # 0.06 K/uL Hypersegmented Polys 1+ Polychromasia 1+ Hypochromasia PRESENT Anisocytosis PRESENT Prothrombin Time 21.4 SECONDS Prothromb Time International Ratio 1.9 Sodium Level 141 mmol/L Potassium Level 4.4 mmol/L Chloride Level 105 mmol/L Carbon Dioxide Level 32 mmol/L Anion Gap 4.0 mmol/L Blood Urea Nitrogen 25 mg/dl Creatinine 2.00 mg/dl Est Creatinine Clear Calc Drug Dose 33.6 ml/min Estimated GFR () 34.0 Estimated GFR (Non- 29.3 BUN/Creatinine Ratio 12.7 Random Glucose 136 mg/dl Calcium Level 8.5 mg/dl Troponin I < 0.015 ng/ml Pro-B-Type Natriuretic Peptide 280 pg/ml Venous Blood pH 7.37 Venous Blood Partial Pressure CO2 58 mmHg Venous Blood Partial Pressure O2 22 mmHg Venous Blood HCO3 33 mmol/L Venous Blood Oxygen Saturation < 60.0 % Venous Blood Base Excess 6.1 mEq/L Bedside Glucose 231 mg/dl 254 mg/dl Test 03/13/17 20:30 03/14/17 04:27 03/14/17 04:37 03/14/17 07:01 Total Creatine Kinase 137 U/L 133 U/L Creatine Kinase MB 3.7 ng/ml 3.1 ng/ml Creatine Kinase MB Ratio 2.7 2.3 Troponin I < 0.015 ng/ml < 0.015 ng/ml White Blood Count 7.99 K/uL Red Blood Count 3.96 M/uL Hemoglobin 10.8 g/dL Hematocrit 36.5 % Mean Corpuscular Volume 92.2 fL Mean Corpuscular Hemoglobin 27.3 pg Mean Corpuscular Hemoglobin Concent 29.6 g/dl Platelet Count 225 K/uL Mean Platelet Volume 10.7 fL Neutrophils (%) (Auto) 90.0 % Lymphocytes (%) (Auto) 6.1 % Monocytes (%) (Auto) 3.0 % Eosinophils (%) (Auto) 0.0 % Basophils (%) (Auto) 0.0 % Neutrophils # (Auto) 7.19 K/uL Lymphocytes # (Auto) 0.49 K/uL Monocytes # (Auto) 0.24 K/uL Eosinophils # (Auto) 0.00 K/uL Basophils # (Auto) 0.00 K/uL RDW Standard Deviation 63.0 fL RDW Coefficient of Variation 18.9 % Immature Granulocyte % (Auto) 0.9 % Immature Granulocyte # (Auto) 0.07 K/uL Prothrombin Time 25.5 SECONDS Prothromb Time International Ratio 2.3 Activated Partial Thromboplast Time 35.9 SECONDS Partial Thromboplastin Ratio 1.4 Sodium Level 140 mmol/L Potassium Level 4.6 mmol/L Chloride Level 105 mmol/L Carbon Dioxide Level 32 mmol/L Anion Gap 3.0 mmol/L Blood Urea Nitrogen 30 mg/dl Creatinine 2.00 mg/dl Est Creatinine Clear Calc Drug Dose 33.2 ml/min Estimated GFR () 34.0 Estimated GFR (Non- 29.3 BUN/Creatinine Ratio 15.0 Random Glucose 131 mg/dl Calcium Level 7.6 mg/dl Magnesium Level 3.2 mg/dl Total Bilirubin 0.3 mg/dl Direct Bilirubin < 0.1 mg/dl Aspartate Amino Transf (AST/SGOT) 9 U/L Alanine Aminotransferase (ALT/SGPT) 28 U/L Alkaline Phosphatase 71 U/L Total Protein 6.3 gm/dl Albumin 2.8 gm/dl Bedside Glucose 144 mg/dl 133 mg/dl Assessment and Plan 86 M with Acute on chronic respiratory failure with hypoxia and Bilateral lower lobe pneumonia Pneumonia concern for Gram negative, vancomycin IV, Zosyn IV, Levaquin IV. Acute on Chronic resipiratory failure, wiht hypoxia, Xopenex/Atrovent nebulizers , supplemental oxygen, mobilize secretions Solu-Medrol 40 mg IV every 8 hours. Hold Advair Diskus, Combivent, prednisone 30 mg daily. CAD/hypertension/TIA aspirin 81 mg, atenolol 12.5 mg, clopidogrel 75 mg, warfarin 2.5 mg by mouth daily, torsemide 60 mg, atorvastatin 20 mg Orthostasis-- fludrocortisone 0.1 mg bid Diabetes mellitus- Lantus 55 units hs, hold NovoLog Mix 70/30. SSI CKD 3 stable and follow BPH/chronic indwelling Ball-- dutasteride 0.5 mg by mouth daily, methenamine hippurate 1 g, and tamsulosin 0.4 mg Neuropathic pain/Chronic pain gabapentin 800 mg tid, lidocaine patch, and OxyContin 15 mg q12 Depression--duloxetine 30 mg DVT prevention is coumadin
[2017-03-14] MEDS ORDERED: POLYETHYLENE (MIRALAX) 17 GM PACK PO SCH (09:00)
--- NOTE | 2017-03-14 09:01 | Hospitalist Progress Note ---
Hospitalist Progress Note Date of Service Mar 14, 2017. (Yuliya Cabello PA-C) Subjective Pt evaluation today including: conversation w/ patient, physical exam, chart review, lab review, review of studies Pain: None PO Intake: Good Voiding: gomez catheter in place The patient was seen and examined this morning. Pt reports doing much better today compared to yesterday. He denies any acute shortness of breath, although still is wearing 2L O2 via NC. He typically only wears this at night. Pt reports he's coughing yellow-white sputum. He denies any fevers, sweats or chills overnight. The patient had a bowel movement this morning. He has ambulated only to the bedside commode. Pt uses a motorized scooter for the most part when at the [facility] for ambulation. He does admit to blurred/double vision which has worsened over the past few months, and that it typically improves by early afternoon. He notes he's on coumadin for DVT in the RLE which was diagnosed within the past month, this is his first DVT. He had TIAs about 6-7 months ago for which he is on plavix/asa. Constitutional: No fever, No chills, No sweats Eyes: + worsening of vision, + diplopia, + problem reported (blurred), No redness ENT: No nasal symptoms, No trouble swallowing Respiratory: + see HPI Cardiovascular: No chest pain, No edema, No palpitations Abdomen: No pain, No nausea, No vomiting, No diarrhea, No constipation Musculoskeletal: + swelling (RLE slightly more than left with hx of DVT), No joint pain Neurologic: + weakness, + problem reported (dizziness, chronic), No numbness /tingling Endo: No fatigue Skin: + new/changing skin lesions (hx of shingles on R low back - has lidocaine patch in place), No rash, No itch (Yuliya Cabello PA-C) Objective Vital Signs Date Time Temp Pulse Resp B/P (MAP) Pulse Ox O2 Delivery O2 Flow Rate FiO2 03/14/17 07:13 36.7 64 20 122/72 (89) 97 Nasal Cannula 2.0 03/14/17 06:54 62 18 93 Nasal Cannula 2.0 03/14/17 04:00 96 Nasal Cannula 2.0 03/14/17 03:42 36.5 62 19 112/71 (85) 95 Nasal Cannula 2.0 03/14/17 01:37 57 18 97 Nasal Cannula 2.0 03/14/17 00:00 95 Nasal Cannula 2.0 03/13/17 23:14 36.8 62 22 97/61 (73) 96 Nasal Cannula 2.0 03/13/17 20:45 96 Nasal Cannula 2.0 03/13/17 20:03 70 18 94 Nasal Cannula 2.0 03/13/17 19:47 36.5 60 22 96/51 (66) 97 Nasal Cannula 2.0 03/13/17 16:00 95 Nasal Cannula 2.0 03/13/17 15:00 36.6 16 116/58 (77) 96 Nasal Cannula 2.0 03/13/17 14:35 36.6 70 16 116/58 91 2.0 03/13/17 14:02 61 16 110/ 92 Nasal Cannula 2.0 03/13/17 13:30 61 16 106/60 94 Nasal Cannula 2.0 03/13/17 13:11 58 03/13/17 12:33 58 18 109/90 97 Nasal Cannula 2.0 03/13/17 11:21 57 16 122/72 98 Room Air 03/13/17 11:20 81 18 96 Nasal Cannula 3.0 03/13/17 10:44 97 Nasal Cannula 2.0 03/13/17 10:44 97 Nasal Cannula 2.0 03/13/17 10:19 36.6 62 16 100/62 92 Room Air 03/13/17 10:18 56 (Yuliya Cabello, PA-C) Physical Exam General Appearance: WD/WN, no apparent distress, + obese Eyes: PERRL, EOMI ENT: hearing grossly normal, pharynx normal Neck: supple, no JVD Respiratory/Chest: chest non-tender, no accessory muscle use, + pertinent finding (On 2 L via NC, + coarse rhonchorus breath sounds in RLL and RML predominantly but sound radiates throughout all rangel. No crackles or wheeze.) Cardiovascular: regular rate, rhythm, no murmur Abdomen: normal bowel sounds, non tender, soft Extremities: normal inspection, no calf tenderness, + pedal edema (1+ pitting in the RLE, minimal edema in the LLE.) 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: alert, normal mood/affect, oriented x 3 Skin: normal color, warm/dry (Yuliya Cabello PA-C) Laboratory Results Last 24 Hours Test 03/13/17 10:35 03/13/17 10:40 03/13/17 16:28 03/13/17 20:12 White Blood Count 6.69 K/uL Red Blood Count 4.24 M/uL Hemoglobin 11.6 g/dL Hematocrit 38.9 % Mean Corpuscular Volume 91.7 fL Mean Corpuscular Hemoglobin 27.4 pg Mean Corpuscular Hemoglobin Concent 29.8 g/dl Platelet Count 201 K/uL Mean Platelet Volume 9.9 fL RDW Standard Deviation 63.7 fL RDW Coefficient of Variation 19.2 % Nucleated RBC Absolute Count (auto) 0.05 K/uL Neutrophils % (Manual) 80.5 % Lymphocytes % (Manual) 11.5 % Monocytes % (Manual) 5.3 % Eosinophils % (Manual) 1.8 % Myelocytes % 0.9 % Nucleated Red Blood Cells % 0.7 % Neutrophils # (Manual) 5.39 K/uL Total Absolute Neutrophils 5.39 K/uL Lymphocytes # (Manual) 0.77 K/uL Total Absolute Lymphocytes 0.77 K/uL Monocytes # (Manual) 0.35 K/uL Eosinophils # (Manual) 0.12 K/uL Myelocytes # 0.06 K/uL Hypersegmented Polys 1+ Polychromasia 1+ Hypochromasia PRESENT Anisocytosis PRESENT Prothrombin Time 21.4 SECONDS Prothromb Time International Ratio 1.9 Sodium Level 141 mmol/L Potassium Level 4.4 mmol/L Chloride Level 105 mmol/L Carbon Dioxide Level 32 mmol/L Anion Gap 4.0 mmol/L Blood Urea Nitrogen 25 mg/dl Creatinine 2.00 mg/dl Est Creatinine Clear Calc Drug Dose 33.6 ml/min Estimated GFR () 34.0 Estimated GFR (Non- 29.3 BUN/Creatinine Ratio 12.7 Random Glucose 136 mg/dl Calcium Level 8.5 mg/dl Troponin I < 0.015 ng/ml Pro-B-Type Natriuretic Peptide 280 pg/ml Venous Blood pH 7.37 Venous Blood Partial Pressure CO2 58 mmHg Venous Blood Partial Pressure O2 22 mmHg Venous Blood HCO3 33 mmol/L Venous Blood Oxygen Saturation < 60.0 % Venous Blood Base Excess 6.1 mEq/L Bedside Glucose 231 mg/dl 254 mg/dl Test 03/13/17 20:30 03/14/17 04:27 03/14/17 04:37 03/14/17 07:01 Total Creatine Kinase 137 U/L 133 U/L Creatine Kinase MB 3.7 ng/ml 3.1 ng/ml Creatine Kinase MB Ratio 2.7 2.3 Troponin I < 0.015 ng/ml < 0.015 ng/ml White Blood Count 7.99 K/uL Red Blood Count 3.96 M/uL Hemoglobin 10.8 g/dL Hematocrit 36.5 % Mean Corpuscular Volume 92.2 fL Mean Corpuscular Hemoglobin 27.3 pg Mean Corpuscular Hemoglobin Concent 29.6 g/dl Platelet Count 225 K/uL Mean Platelet Volume 10.7 fL Neutrophils (%) (Auto) 90.0 % Lymphocytes (%) (Auto) 6.1 % Monocytes (%) (Auto) 3.0 % Eosinophils (%) (Auto) 0.0 % Basophils (%) (Auto) 0.0 % Neutrophils # (Auto) 7.19 K/uL Lymphocytes # (Auto) 0.49 K/uL Monocytes # (Auto) 0.24 K/uL Eosinophils # (Auto) 0.00 K/uL Basophils # (Auto) 0.00 K/uL RDW Standard Deviation 63.0 fL RDW Coefficient of Variation 18.9 % Immature Granulocyte % (Auto) 0.9 % Immature Granulocyte # (Auto) 0.07 K/uL Prothrombin Time 25.5 SECONDS Prothromb Time International Ratio 2.3 Activated Partial Thromboplast Time 35.9 SECONDS Partial Thromboplastin Ratio 1.4 Sodium Level 140 mmol/L Potassium Level 4.6 mmol/L Chloride Level 105 mmol/L Carbon Dioxide Level 32 mmol/L Anion Gap 3.0 mmol/L Blood Urea Nitrogen 30 mg/dl Creatinine 2.00 mg/dl Est Creatinine Clear Calc Drug Dose 33.2 ml/min Estimated GFR () 34.0 Estimated GFR (Non- 29.3 BUN/Creatinine Ratio 15.0 Random Glucose 131 mg/dl Calcium Level 7.6 mg/dl Magnesium Level 3.2 mg/dl Total Bilirubin 0.3 mg/dl Direct Bilirubin < 0.1 mg/dl Aspartate Amino Transf (AST/SGOT) 9 U/L Alanine Aminotransferase (ALT/SGPT) 28 U/L Alkaline Phosphatase 71 U/L Total Protein 6.3 gm/dl Albumin 2.8 gm/dl Bedside Glucose 144 mg/dl 133 mg/dl (Yuliya Cabello, ROSSANA) Assessment and Plan 86 M with Acute on chronic respiratory failure with hypoxia and Bilateral lower lobe pneumonia Pneumonia concern for Gram negative - vancomycin IV, Zosyn IV, Levaquin IV - Pt currently requiring 2L via NC, typically only wears this at night- wean as tolerated - Culture sputum - Continue supportive care with pulmonary toilet- mucinex, flutter Acute on Chronic respiratory failure, with hypoxia, Xopenex/Atrovent nebulizers , supplemental oxygen, mobilize secretions - Solu-Medrol 40 mg IV every 8 hours. - No wheeze on exam today - can wean this down to Q12H tonight - Hold Advair Diskus, Combivent, prednisone 30 mg daily. CAD HTN Hx of PR CHF Coronary artery stent Cerebrovascular disease Hx of TIA - 6-7 months ago - Cardiac enzymes negative x 3 - 2D echo and carotid dopplers ordered - aspirin 81 mg, atenolol 12.5 mg, clopidogrel 75 mg, torsemide 60 mg, atorvastatin 20 mg Hx of DVT - 1 mo ago diagnosed with [place] D[facility] - Pt was started on coumadin, continue for now - This the pts first known event. Orthostasis - fludrocortisone 0.1 mg bid - pt typically feels lightheaded/dizzy until early afternoon, stable Diabetes mellitus - Lantus 55 units hs, hold NovoLog Mix 70/30. - ISS with accuchecks ACHS CKD 3 stable - follow prp, appears slightly bumped from baseline which is around 1.4, Currently is 2.0 BPH/chronic indwelling Gomez- - dutasteride 0.5 mg by mouth daily, methenamine hippurate 1 g, and tamsulosin 0.4 mg - Gomez draining clear yellow urine Neuropathic pain/Chronic pain - gabapentin 800 mg tid, OxyContin 15 mg q12 - Pt had hx of shingles over R lower back - continue lidocaine patch here. Depression- -duloxetine 30 mg DVT ppx: teds, scds, Coumadin CODE STATUS: Full code [facility]position: [facility], anticipate return there within 1-2 days. (Yuliya Cabello, ROSSANA) LEANNE Physician Supervision Note: I interviewed and examined the patient. Discussed with Yuliya Cabello PAC and agree with findings and plan as documented in the note. Any exceptions or clarifications are listed here: None This patient was seen in the intensive care unit he is doing well he's still having coughing with shortness of breath supplemental oxygen is used he typically only uses it when necessary & vital signs are noted Cardiac exam is distant regular lungs have coarse rales right greater than left possibly consistent with aspiration pneumonia Continue antibiotics aspiration precautions supplemental oxygen and treat COPD exacerbation Documented By: Stanford Dotson (Stanford Dotson M.D.)
[2017-03-14] MEDS: VANCOMYCIN INJ 1,750 MG in SODIUM CHLORIDE 0.9% 500ML 500 ML IV SCH (12:07)
--- NOTE | 2017-03-14 15:29 | Pharmacy Progress Note ---
Pharmacy Abx Dose Short Note Date of Service Mar 14, 2017. 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 * Former smoker, + h/o COPD/asthma, h/o TIA, DM and BPH w/ indwelling gomez cath * Day # 2 of antimicrobial therapy Plan Vancomycin * Loading dose: 2500mg IV x 1 (24mg/kg) was given 03/13 @ 1306 * Maintenance dose: 1750mg (16.8mg/kg) IV Q 24 hrs initiated today * Goal trough level: 15 to 20mcg/mL for treatment of pulmonary infxn * Trough level ordered for: 03/16/17 * P'kinetic estimates: eCrCl 30-35cc/min; half-life ~21 hours; Vd 0.7L/kg Zosyn * continue 4.5gm extended-infusion IV Q 8 hrs for eCrCl > 20cc/min Levofloxacin * continue 750mg IV Q 48 hours for eCrCl 20-49cc/min Pharmacy will continue to follow and will adjust dose/frequency as necessary. Thank you.
[2017-03-14] MEDS: WARFARIN SOD 2.5 MG TAB PO SCH (16:54)
[2017-03-14] MEDS: DUTASTERIDE 0.5MG PO SCH ×2 (20:55)
[2017-03-14] MEDS: FAMOTIDINE 20 MG TAB PO SCH (20:56)
[2017-03-14] MEDS: ATORVASTATIN 20 MG TAB PO SCH (20:56)
[2017-03-14] MEDS: TAMSULOSIN HCL 0.4 MG CAP PO SCH (20:57)
[2017-03-14] MEDS: METHENAMINE HIPPURATE 1 GM TAB PO SCH (20:57)
[2017-03-14] MEDS: INSULIN GLARGINE SOLOSTAR 100 UNITS/ML 3 ML PEN SQ SCH (21:14)
[2017-03-15] VITALS (14 sets, daily range): BP systolic 90–132; BP diastolic 62–79; PULSE 58–66; TEMP 36.4–36.8; O2SAT 92–100
[2017-03-15] MEDS: LEVALBUTEROL 1.25MG/0.5ML NEB INH SCH ×4 (01:52→18:58)
[2017-03-15] MEDS: IPRATROPIUM BROMIDE NEB SOLN 0.02% 2.5 ML VIAL INH SCH ×4 (01:52→18:58)
[2017-03-15] MEDS: METHYLPREDNISOLONE IV 40 MG in SYRINGE 0 ML IV SCH ×2 (01:55→13:44)
[2017-03-15] MEDS: PIPERACILL/TAZOBAC IV 4.5 GM in DEXTROSE 5% 100ML IV SCH ×3 (04:26→20:26)
[2017-03-15 06:45] LABS: BASO % 0.1 %; BASO ABS # 0.01 K/uL (0-0.2); COMPLETE YES; HEMATOCRIT 36.8 % (42-52); IG% 0.8 %; LYMPH % 6.3 %; LYMPH ABS # 0.55 K/uL (1.2-3.4); MEAN CELL VOLUME 91.1 fL (80-100); MEAN CORPUSCULAR HEMOGLOBIN 27.2 pg (25-34); MEAN CORPUSCULAR HGB CONC 29.9 g/dl (32-36); MEAN PLATELET VOLUME 10.7 fL (7.4-10.4); MONO % 3.6 %; NEUT % 89.2 %; PLATELET COUNT 229 K/uL (130-400); RED BLOOD COUNT 4.04 M/uL (4.7-6.1); WHITE BLOOD COUNT 8.77 K/uL (4.8-10.8)
[2017-03-15 07:01] LABS: INR 3.1 (0.9-1.1); PARTIAL THROMBOPLASTIN RATIO 1.4; PROTHROMBIN TIME (PATIENT) 34.2 SECONDS (9.0-12.0)
[2017-03-15 07:27] LABS: ALT/SGPT 25 U/L (12-78); BLOOD UREA NITROGEN 33 mg/dl (7-18); BUN/CREATININE RATIO 17.5 (10-20); CALCIUM 8.3 mg/dl (8.5-10.1); CARBON DIOXIDE 29 mmol/L (21-32); CHLORIDE 107 mmol/L (98-107); GLUCOSE 118 mg/dl (70-99); POTASSIUM 4.1 mmol/L (3.5-5.1); SODIUM 142 mmol/L (136-145)
[2017-03-15 07:30] LABS: ALKALINE PHOSPHATASE 66 U/L (45-117); AST/SGOT 11 U/L (15-37)
[2017-03-15] MEDS: OXYCODONE HCL 15 MG TABCR (OXYCONTIN) PO SCH ×2 (07:52→20:25)
[2017-03-15] MEDS: TORSEMIDE 20 MG TAB PO SCH (07:52)
[2017-03-15] MEDS: ARTIFICIAL TEARS OP SOLN OPB SCH ×4 (07:52→20:26)
[2017-03-15] MEDS: POTASSIUM CHLORIDE 20 MEQ TABCR PO SCH ×3 (07:53→20:28)
[2017-03-15] MEDS: SIMETHICONE 80 MG CHEW PO SCH ×4 (07:53→20:33)
[2017-03-15] MEDS: GUAIFENESIN 600 MG TABCR PO SCH ×2 (07:53→20:30)
[2017-03-15] MEDS: GABAPENTIN 800 MG TAB PO SCH ×3 (07:53→20:31)
[2017-03-15] MEDS: CEROVITE ADV FORMULA TAB PO SCH (07:54)
[2017-03-15] MEDS: CLOPIDOGREL BISULFATE 75 MG TAB PO SCH (07:54)
[2017-03-15] MEDS: PANTOprazole SOD 40 MG TAB PO SCH (07:54)
[2017-03-15] MEDS: MAGNESIUM OXIDE 400 MG TAB PO SCH ×2 (07:54→20:29)
[2017-03-15] MEDS: DOCUSATE SODIUM 100 MG CAP PO SCH ×2 (07:54→20:30)
[2017-03-15] MEDS: PSYLLIUM 58.6% PWD PACK S\\F PO SCH (07:55)
[2017-03-15] MEDS: FLUDROCORTISONE ACETATE 0.1 MG TAB PO SCH ×2 (07:55→20:31)
[2017-03-15] MEDS: DULOXETINE (CYMBALTA) 30 MG CAP PO SCH (07:55)
[2017-03-15] MEDS: LIDODERM (LIDOCAINE) PATCH 5% TD SCH (07:55)
[2017-03-15] MEDS: POLYETHYLENE (MIRALAX) 17 GM PACK PO SCH ×2 (07:55→20:27)
[2017-03-15] MEDS: FLUTICASONE PROPIONATE NA SPR 16 GM BTL SCH (07:56)
[2017-03-15] MEDS: ACETAMINOPHEN 500 MG TAB PO SCH ×2 (07:56→20:33)
[2017-03-15] MEDS: ASPIRIN 81 MG CHEW PO SCH (07:59)
[2017-03-15] MEDS: BISACODYL 5 MG TABEC PO SCH ×2 (07:59→20:00)
[2017-03-15] MEDS: INSULIN ASPART 100 UNITS/ML 3 ML PEN SC SCH ×4 (08:00→20:51)
--- NOTE | 2017-03-15 09:57 | Hospitalist Progress Note ---
Hospitalist Progress Note Date of Service Mar 15, 2017. (Yuliya Cabello PA-C) Subjective Pt evaluation today including: conversation w/ patient, physical exam, chart review, lab review, review of studies Pain: None PO Intake: good Voiding: gomez catheter in place The patient was seen and examined this morning. Pt reports feeling well. His breathing is improved today compared to yesterday. He was able to provide a sputum sample yesterday and this is sent to the lab. He denies shortness of breath with speech or at rest. He has been ambulating from bed to bedside chair with walker, and still feels a little short of breath during this. He is eating and drinking well without difficulty, his bowels are moving regularly. Constitutional: No fever, No chills, No sweats ENT: No sore throat, No trouble swallowing Respiratory: + cough, + sputum, + dyspnea on exertion, No wheezing, No dyspnea at rest Cardiovascular: No chest pain, No palpitations Abdomen: No pain, No nausea, No vomiting, No diarrhea, No constipation Musculoskeletal: No joint pain, No swelling Skin: No rash, No itch (Yuliya Cabello PA-C) Objective Vital Signs Date Time Temp Pulse Resp B/P (MAP) Pulse Ox O2 Delivery O2 Flow Rate FiO2 03/15/17 08:01 36.6 61 16 113/71 (85) 97 Nasal Cannula 2.0 03/15/17 08:00 Nasal Cannula 2.0 03/15/17 06:51 58 18 97 Nasal Cannula 2.0 03/15/17 04:00 96 Nasal Cannula 2.0 03/15/17 03:14 36.4 66 19 90/62 (71) 96 Nasal Cannula 2.0 03/15/17 01:55 64 16 98 Nasal Cannula 2.0 03/15/17 00:00 92 Room Air 03/14/17 23:41 36.5 62 18 104/65 (78) 92 Room Air 03/14/17 20:00 Nasal Cannula 2.0 03/14/17 19:33 63 14 95 Nasal Cannula 2.0 03/14/17 19:13 36.8 64 18 134/77 (96) 97 Nasal Cannula 2.0 03/14/17 16:00 Nasal Cannula 2.0 03/14/17 15:42 36.4 64 20 119/77 (91) 96 Nasal Cannula 2.0 03/14/17 14:13 67 18 97 Nasal Cannula 2.0 03/14/17 12:00 Nasal Cannula 2.0 03/14/17 11:47 36.9 66 20 109/72 (84) 97 Nasal Cannula 2.0 (Yuliya Cabello PA-C) Physical Exam Notes: General Appearance: WD/WN, no apparent distress, + obese Eyes: PERRL, EOMI ENT: hearing grossly normal, pharynx normal Neck: supple, no JVD Respiratory/Chest: chest non-tender, no accessory muscle use, + pertinent finding (On 2 L via NC, improved breath sounds throughout, clear on the left side, mild rhonchi in the RLL. No crackles or wheeze.) Cardiovascular: regular rate, rhythm, no murmur Abdomen: normal bowel sounds, non tender, soft, +chronic indwelling gomez draining clear yellow urine Extremities: normal inspection, no calf tenderness, + pedal edema (1+ pitting in the RLE, minimal edema in the LLE.) 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: alert, normal mood/affect, oriented x 3 Skin: normal color, warm/dry (Yuliya Cabello, CLAUDEC) Laboratory Results Last 24 Hours Test 03/14/17 11:46 03/14/17 16:38 03/14/17 21:06 03/15/17 06:09 Bedside Glucose 213 mg/dl 165 mg/dl 192 mg/dl White Blood Count 8.77 K/uL Red Blood Count 4.04 M/uL Hemoglobin 11.0 g/dL Hematocrit 36.8 % Mean Corpuscular Volume 91.1 fL Mean Corpuscular Hemoglobin 27.2 pg Mean Corpuscular Hemoglobin Concent 29.9 g/dl Platelet Count 229 K/uL Mean Platelet Volume 10.7 fL Neutrophils (%) (Auto) 89.2 % Lymphocytes (%) (Auto) 6.3 % Monocytes (%) (Auto) 3.6 % Eosinophils (%) (Auto) 0.0 % Basophils (%) (Auto) 0.1 % Neutrophils # (Auto) 7.82 K/uL Lymphocytes # (Auto) 0.55 K/uL Monocytes # (Auto) 0.32 K/uL Eosinophils # (Auto) 0.00 K/uL Basophils # (Auto) 0.01 K/uL RDW Standard Deviation 63.0 fL RDW Coefficient of Variation 19.1 % Immature Granulocyte % (Auto) 0.8 % Immature Granulocyte # (Auto) 0.07 K/uL Prothrombin Time 34.2 SECONDS Prothromb Time International Ratio 3.1 Activated Partial Thromboplast Time 36.1 SECONDS Partial Thromboplastin Ratio 1.4 Sodium Level 142 mmol/L Potassium Level 4.1 mmol/L Chloride Level 107 mmol/L Carbon Dioxide Level 29 mmol/L Anion Gap 6.0 mmol/L Blood Urea Nitrogen 33 mg/dl Creatinine 1.90 mg/dl Est Creatinine Clear Calc Drug Dose 35.0 ml/min Estimated GFR () 36.2 Estimated GFR (Non- 31.2 BUN/Creatinine Ratio 17.5 Random Glucose 118 mg/dl Calcium Level 8.3 mg/dl Magnesium Level 3.0 mg/dl Total Bilirubin 0.3 mg/dl Direct Bilirubin < 0.1 mg/dl Aspartate Amino Transf (AST/SGOT) 11 U/L Alanine Aminotransferase (ALT/SGPT) 25 U/L Alkaline Phosphatase 66 U/L Total Protein 6.5 gm/dl Albumin 3.0 gm/dl Test 03/15/17 06:39 Bedside Glucose 124 mg/dl (Yuliya Cabello, PAIsabelleC) Assessment and Plan 86 M with Acute on chronic respiratory failure with hypoxia and Bilateral lower lobe pneumonia Pneumonia concern for Gram negative - vancomycin IV, Zosyn IV, Levaquin IV - Pt currently requiring 2L via NC, typically only wears this at night- wean as tolerated - Culture sputum- await results - BCx negative x 2 sets - Continue supportive care with pulmonary toilet- mucinex, flutter Acute on Chronic respiratory failure, with hypoxia, Xopenex/Atrovent nebulizers , supplemental oxygen, mobilize secretions - Solu-Medrol 40 mg IV Q12H. - No wheeze on exam today - Breath sounds are greatly improved today. - Hold Advair Diskus, Combivent, prednisone 30 mg daily. CAD HTN Hx of [place] CHF Coronary artery stent Cerebrovascular disease Hx of TIA - 6-7 months ago - Cardiac enzymes negative x 3 - 2D echo and carotid dopplers ordered - aspirin 81 mg, atenolol 12.5 mg, clopidogrel 75 mg, torsemide 60 mg, atorvastatin 20 mg Hx of DVT - 1 mo ago diagnosed with RLE DVT at the [facility] - Pt was started on coumadin, continue for now - This the pts first known event. Orthostasis - fludrocortisone 0.1 mg bid - pt typically feels lightheaded/dizzy until early afternoon, stable Diabetes mellitus - Lantus 55 units hs, hold NovoLog Mix 70/30. - ISS with accuchecks ACHS CKD 3 stable - follow prp, appears slightly bumped from baseline which is around 1.4, trended downward slightly to 1.9 BPH/chronic indwelling Gomez- - dutasteride 0.5 mg by mouth daily, methenamine hippurate 1 g, and tamsulosin 0.4 mg - Gomez draining clear yellow urine Neuropathic pain/Chronic pain - gabapentin 800 mg tid, OxyContin 15 mg q12 - Pt had hx of shingles over R lower back - continue lidocaine patch here. Depression- -duloxetine 30 mg DVT ppx: teds, scds, Coumadin CODE STATUS: Full code Disposition: From the [facility], anticipate return there within 1-2 days. (Yuliya Cabello, ROSSANA) PA Physician Supervision Note: I interviewed and examined the patient. Discussed with Yuliya Cabello PAC and agree with findings and plan as documented in the note. Any exceptions or clarifications are listed here: None Patient is doing much better today however he is on intravenous steroids he has had problems in the past with transition and would like another day to transition oral steroids before returning to [facility] home environment. His breathing is much better his coughing is less Vital signs are stable Lung exam shows improving right rhonchi lower extremities are still with minor edema COPD exacerbation with right lower lobe pneumonia with concern for aspiration or gram-negative pneumonia Continue intravenous antibiotics Zosyn and Levaquin vancomycin was transitioned to Augmentin at time of discharge initiate tapering of steroids with the eventual change to 60 mg oral at time of discharge anticipate next day or so Documented By: Stanford Dotson (Stanford Dotson M.D.)
[2017-03-15] MEDS: VANCOMYCIN INJ 1,750 MG in SODIUM CHLORIDE 0.9% 500ML 500 ML IV SCH (11:54)
--- NOTE | 2017-03-15 13:45 | Discharge Instructions ---
Discharge Instructions Date of Service Mar 15, 2017. Admission Reason for Admission: Acute On Chronic Respiratory Failure With Hypoxia Discharge Discharge Diagnosis / Problem: Acute on chronic respiratory failure with hypoxia Discharge Goals Goal(s): Decrease discomfort, Improve function Activity Recommendations Activity Limitations: resume your previous activity Lifting Limitations: none, gradually increase as tolerated Exercise/Sports Limitations: rest today, gradually increase as tolerated May Resume Sexual Activity: when tolerated Shower/Bathe: no limitations Driving or Machine Use: DO NOT DRIVE . Instructions / Follow-Up Instructions / Follow-Up You were admitted to [facility] [place] with acute respiratory failure and diagnosed with Right lower and right middle lobe aspiration secondary to chronic aspiration. During your stay here you were treated with intravenous antibiotics and other supportive respiratory care to alleviate your symptoms of shortness of breath. Imaging studies which were completed include CXR, and were abnormal showing pneumonia. Medications: - You have been prescribed 2 different antibiotics, Augmentin 875 mg twice daily for the next 8 days to complete a 10 day course , starting tonight (03/16) Zyvoxx 600 mg twice daily for the next 10 days to complete a 14 day course starting tonight - You have been provided a prednisone 20mg tablets to take over the next week as a taper and wean down to your normal daily regimen of 30 mg; see below Take Prednisone 60 mg (3 tabs) daily x 2 days Then take prednisone 40 mg (2 tabs daily) x 2 days Thentake 20 mg ( 1 tab daily) x 2 days Then take 10 mg daily until seen by your family physician HOLD COUMADIN tonight! Have a recheck of INR tomorrow, 03/17 and adjust coumadin accordingly per physician at the [facility]. Your INR at time of discharge was 3.3. - Continue taking all your other medications as prescribed Appointments: Follow up with your Primary Care Provider at the [facility] within 1 week. Current Hospital Diet Patient's current hospital diet: Diabetes Type 2 Diet, AHA Diet (Heart Healthy) Discharge Diet Recommended Diet: AHA Diet (Heart Healthy), Diabetes Type 2 Diet Pending Studies Studies pending at discharge: yes List of pending studies: Sputum culture- preliminary report with staph aureus Laboratory Results Hemoglobin A1c Test 01/22/17 07:24 Range/Units Estimated Average Glucose 206 mg/dl Hemoglobin A1c 8.8 H 4.5-5.6 % Medical Emergencies . Who to Call and When: Medical Emergencies: If at any time you feel your situation is an emergency, please call 911 immediately. . Non-Emergent Contact Non-Emergency issues call your: Primary Care Provider Call Non-Emergent contact if: you have a fever, your pain is not controlled, your pain is worsening, your pain is unusual for you, your pain is concerning you, you have any medication questions . Past History Medical & Surgical History: (1) PNA (pneumonia) (2) Staphylococcus aureus pneumonia (3) HTN (hypertension) (4) chronic kidney disease (5) Coronary artery disease (6) Anemia (7) Hyperparathyroidism (8) Peripheral vascular disease (9) COPD (chronic obstructive pulmonary disease) (10) Orthostatic hypotension . "Provider Documentation" section prepared by Jie Cabello. Attending Attestation: Pt seen/examined and discharge care plan d/w LEANNE Cabello on day of discharge. I agree with the hutchison components of her discharge instructions. Nima Santoro MD . VTE Core Measure Inpt VTE Proph given/why not?: Warfarin (Coumadin), T.E.D. Stockings, SCD's
[2017-03-15] MEDS: WARFARIN SOD 2.5 MG TAB PO SCH (15:38)
[2017-03-15] MEDS: LEVOFLOXACIN 750MG / D5W IV SCH (15:38)
[2017-03-15] MEDS: DUTASTERIDE 0.5MG PO SCH ×2 (20:26)
[2017-03-15] MEDS: FAMOTIDINE 20 MG TAB PO SCH (20:29)
[2017-03-15] MEDS: ATORVASTATIN 20 MG TAB PO SCH (20:29)
[2017-03-15] MEDS: METHENAMINE HIPPURATE 1 GM TAB PO SCH (20:32)
[2017-03-15] MEDS: TAMSULOSIN HCL 0.4 MG CAP PO SCH (20:32)
[2017-03-15] MEDS: INSULIN GLARGINE SOLOSTAR 100 UNITS/ML 3 ML PEN SQ SCH (20:52)
[2017-03-16] MEDS: LEVALBUTEROL 1.25MG/0.5ML NEB INH SCH ×2 (01:41→07:12)
[2017-03-16] MEDS: IPRATROPIUM BROMIDE NEB SOLN 0.02% 2.5 ML VIAL INH SCH ×2 (01:41→07:12)
[2017-03-16 01:43] VITALS: PULSE 64; O2SAT 96
[2017-03-16] MEDS: METHYLPREDNISOLONE IV 40 MG in SYRINGE 0 ML IV SCH (01:57)
[2017-03-16] MEDS: PIPERACILL/TAZOBAC IV 4.5 GM in DEXTROSE 5% 100ML IV SCH (04:06)
[2017-03-16 07:14] VITALS: PULSE 62; O2SAT 96
[2017-03-16 07:40] VITALS: BP 128/76; PULSE 51; TEMP 36.4; O2SAT 97
[2017-03-16 08:44] LABS: INR 3.3 (0.9-1.1); PARTIAL THROMBOPLASTIN RATIO 1.4; PROTHROMBIN TIME (PATIENT) 37.4 SECONDS (9.0-12.0)
[2017-03-16 08:45] LABS: ALT/SGPT 26 U/L (12-78); BLOOD UREA NITROGEN 31 mg/dl (7-18); BUN/CREATININE RATIO 16.4 (10-20); CALCIUM 8.7 mg/dl (8.5-10.1); CARBON DIOXIDE 31 mmol/L (21-32); CHLORIDE 106 mmol/L (98-107); GLUCOSE 145 mg/dl (70-99); MAGNESIUM 2.8 mg/dl (1.8-2.4); POTASSIUM 4.7 mmol/L (3.5-5.1); SODIUM 141 mmol/L (136-145)
[2017-03-16 08:49] LABS: ALKALINE PHOSPHATASE 67 U/L (45-117); AST/SGOT 13 U/L (15-37)
[2017-03-16] MEDS: INSULIN ASPART 100 UNITS/ML 3 ML PEN SC SCH (08:53)
[2017-03-16] MEDS: FLUTICASONE PROPIONATE NA SPR 16 GM BTL SCH (08:59)
[2017-03-16] MEDS: ARTIFICIAL TEARS OP SOLN OPB SCH ×2 (08:59)
[2017-03-16] MEDS: ASPIRIN 81 MG CHEW PO SCH (09:01)
[2017-03-16] MEDS: DOCUSATE SODIUM 100 MG CAP PO SCH (09:02)
[2017-03-16] MEDS: DULOXETINE (CYMBALTA) 30 MG CAP PO SCH (09:02)
[2017-03-16 09:03] LABS: COMPLETE YES; HEMATOCRIT 38.5 % (42-52); IG% 1.9 %; LYMPH % 9.1 %; MEAN CELL VOLUME 92.3 fL (80-100); MEAN CORPUSCULAR HEMOGLOBIN 27.8 pg (25-34); MEAN CORPUSCULAR HGB CONC 30.1 g/dl (32-36); MEAN PLATELET VOLUME 10.1 fL (7.4-10.4); MONO % 4.9 %; NEUT % 84.1 %; PLATELET COUNT 203 K/uL (130-400); RED BLOOD COUNT 4.17 M/uL (4.7-6.1); WHITE BLOOD COUNT 7.71 K/uL (4.8-10.8)
[2017-03-16] MEDS: TORSEMIDE 20 MG TAB PO SCH (09:03)
[2017-03-16] MEDS: BISACODYL 5 MG TABEC PO SCH (09:07)
[2017-03-16] MEDS: FLUDROCORTISONE ACETATE 0.1 MG TAB PO SCH (09:07)
[2017-03-16] MEDS: POTASSIUM CHLORIDE 20 MEQ TABCR PO SCH (09:07)
[2017-03-16] MEDS: MAGNESIUM OXIDE 400 MG TAB PO SCH (09:08)
[2017-03-16] MEDS: PSYLLIUM 58.6% PWD PACK S\\F PO SCH (09:08)
[2017-03-16] MEDS: POLYETHYLENE (MIRALAX) 17 GM PACK PO SCH (09:11)
[2017-03-16] MEDS: CEROVITE ADV FORMULA TAB PO SCH (09:12)
[2017-03-16] MEDS: SIMETHICONE 80 MG CHEW PO SCH (09:13)
[2017-03-16] MEDS: GABAPENTIN 800 MG TAB PO SCH (09:13)
[2017-03-16] MEDS: CLOPIDOGREL BISULFATE 75 MG TAB PO SCH (09:14)
[2017-03-16] MEDS: PANTOprazole SOD 40 MG TAB PO SCH (09:14)
[2017-03-16] MEDS: LIDODERM (LIDOCAINE) PATCH 5% TD SCH (09:15)
[2017-03-16] MEDS: GUAIFENESIN 600 MG TABCR PO SCH (09:17)
[2017-03-16] MEDS: OXYCODONE HCL 15 MG TABCR (OXYCONTIN) PO SCH (09:18)
[2017-03-16] MEDS: ACETAMINOPHEN 500 MG TAB PO SCH (09:18)
[2017-03-16] MEDS ORDERED: PRED10TA PO (09:43)
[2017-03-16] MEDS ORDERED: PRED20TA PO (09:43)
[2017-03-16] MEDS ORDERED: AMOX875T PO (09:43)
[2017-03-16 10:52] VITALS: BP 128/76; PULSE 70; TEMP 36.4; O2SAT 93
[2017-03-16] MEDS ORDERED: LINE1TAB6 PO (11:22)
[2017-03-16] MEDS ORDERED: VANCOMYCIN TROUGH SCH (11:30)
--- NOTE | 2017-03-16 11:33 | Discharge Summary ---
Discharge Summary Date of Service Mar 16, 2017. (Yuliya Cabello PA-C) Discharge Summary Admission Date: Mar 13, 2017 at 12:48 Discharge Date: Mar 16, 2017 Discharge Disposition: [facility] facility ([facility]) Principal Diagnosis: bilateral lower lobe pneumonia, staph aureus Problems/Secondary Diagnoses: Acute on Chronic respiratory failure, with hypoxia CAD HTN Hx of MO CHF Coronary artery stent Cerebrovascular disease Hx of TIA - 6-7 months ago Hx of DVT Orthostasis COPD DM type II CKG stage III BPH/chronic indwelling Gomez Neuropathic pain/chronic pain Depression Immunizations: Have You Had Influenza Vaccine: Yes Influenza Vaccine Date: Jun 08, 2013 History of Tetanus Vaccine?: Unknown History of Pneumococcal: Yes History of Hepatitis B Vaccine: Unknown Procedures: CHEST ONE VIEW PORTABLE HISTORY: 86 years-old Male CHEST PAIN COMPARISON: Chest radiograph 03/01/2017 TECHNIQUE: Portable upright AP view of the chest FINDINGS: Cardiac silhouette is upper limits of normal. No pneumothorax. Lungs are mildly hypoinflated with patchy bibasilar opacities, not significantly changed from comparison. Background emphysema is noted. No overt pulmonary edema. Bones are grossly intact. IMPRESSION: No significant change in appearance of the patchy bibasilar opacities suggesting atelectasis or residual pneumonitis. The above report was generated using voice recognition software. It may contain grammatical, syntax or spelling errors. Electronically signed by: Jl Kelley M.D. 03/13/2017 11:08 AM Dictated Date/Time: 03/13/2017 11:06 AM The status of this report is Signed. Consultations: None (Yuliya Cabello PA-C) Medication Reconciliation New Medications: Amoxicillin & Pot Clavulanate (Augmentin 875-125 mg) 1 Tab Tab 1 TAB PO BID for 8 Days, #14 TAB Start on 03/16 in evening Linezolid (Zyvox) 600 Mg Tab 600 MG PO BID for 10 Days, #20 TAB Changed Medications: Prednisone (Prednisone) 20 Mg Tab 20 MG PO UD for 4 Days, #12 TAB (Changed from: take 20mg daily for three days) take 60mg daily for two days(03/16-03/17), then 40 mg daily x two days (03/18-03/19), then 20 mg daily for two days (03/20-03/21) Prednisone Tab (Prednisone) 10 Mg Tab 10 MG PO UD for 7 Days, #7 TAB (Changed from: take 10mg daily for three days (03/15-03/17)) take after 20 mg taper; take 10mg daily until seen by your family physician Continued Medications: Acetaminophen (Tylenol) 500 Mg Tab 1000 MG PO Q12 TAKE AT 0800 & 2000 Aspirin (Aspirin Chewable) 81 Mg Chew 81 MG PO DAILY Atenolol (Tenormin) 25 Mg Tab 12.5 MG PO DAILY, TAB Atorvastatin (Atorvastatin Calcium) 20 Mg Tab 20 MG PO HS, #28 Bisacodyl (Bisacodyl) 5 Mg Tab 5 MG PO BID Ciclopirox (Ciclodan) 8 % Idania 1 APPLN TOP QPM apply penlac 8% and ciclopirox 8% solution topically to thick finger and toenails once nightly Clopidogrel (Plavix) 75 Mg Tab 75 MG PO DAILY Docusate Sodium (Colace) 100 Mg Cap 100 MG PO BID Duloxetine HCl (Duloxetine HCl) 30 Mg Cap 30 MG PO DAILY, #28 Dutasteride (Dutasteride) 0.5 Mg Cap 0.5 MG PO DAILY, #28 Famotidine (Famotidine) 20 Mg Tab 20 MG PO HS, #28 Fiber Laxative (Fiber Laxative) Ea 1 TAB PO DAILY Fludrocortisone Acetate (Fludrocortisone Acetate) 0.1 Mg Tab 0.1 MG PO BID for 10 Days, #20 TAB Fluticasone Prop/Salmeterol (Advair Diskus 250-50 Mcg/Dose) 14 Puff/1 Inhaler Aerp 1 PUFF INH BID, #1 INHALER Fluticasone Propionate (Fluticasone Propionate) 50 Mcg/Act Spr 2 SPRAYS NA DAILY for 30 Days Gabapentin (Gabapentin) 800 Mg Tab 800 MG PO TID, #84 Guaifenesin Ext Rel (Mucinex Ext Rel) 600 Mg Tabcr 1200 MG PO Q12, TAB Home O2 Therapy (Oxygen) Gas 1 LITER NA PRN, BTL Insulin Aspart 70/30 (Novolog Mix 70/30) Susp 5 UNITS SQ QPM, BTL Insulin Aspart Protamine & Asp (Novolog Mix 70/30) 1 Inj Inj 20 UNITS SQ QAM, #10 Insulin Glargine (Lantus) 100 Unit/Ml Inj 55 UNIT SQ HS, #10 Ipratropium-Albuterol (Combivent Respimat) 1 Aer Aer 1 PUFF INH QID, #4 Levalbuterol (Levalbuterol HCl) 0.63 Mg/3 Ml Nebu 1 VIAL NEB Q4 PRN for Wheezing Lidocaine (Lidocaine) 1 Patch Tdsy 1 PATCH TD QAM for 30 Days to back pain Lorazepam (Lorazepam) 0.5 Mg Tab 0.5 MG PO Q4 PRN for Anxiety/Agitation, #30 Magnesium Oxide (Mag-Ox) 400 Mg Tab 400 MG PO BID, TAB Methenamine Hippurate (Methenamine Hippurate) 1 Gm Tab 1 GM PO HS Multiple Vitamins W/ Minerals (Therems M) 1 Tab Tab 1 TAB PO DAILY Nitroglycerin (Nitrostat) 0.4 Mg Tab 1 TAB SL UD PRN for Chest Pain, 3 Refills Omeprazole (Prilosec) 20 Mg Capcr 20 MG PO DAILY, CAP Oxycodone HCl (Oxycontin) 15 Mg Tabcr 15 MG PO Q12, #6 Polyethylene Glycol 3350 (Miralax) 1 Pow Pow 17 GM PO BID, #255 GM Polyethylene Glycol-Propylene (Systane Ultra) 1 Idania Idania 1 DROPS OPB BID, #15 ML 1 Refill Potassium Chloride (Klor-Con M20) 20 Meq Tabcr 40 MEQ PO TID for 7 Days, #60 Simethicone (Gas-X) 80 Mg Chw 80 MG PO QID PRN for Indigestion Tamsulosin Hcl (Flomax) 0.4 Mg Cap 0.4 MG PO HS, #28 Torsemide (Torsemide) 20 Mg Tab 60 MG PO QAM for 30 Days, #90 TAB Trolamine Salicylate (Aspercreme) 10 % Lot 1 APPLN TOP BID PRN for ARTHRITIS PAIN Warfarin Sod (Jantoven) 2.5 Mg Tab 2.5 MG PO DAILY, TAB Discharge Exam The patient was seen and examined this morning. Patient reports feeling well. He reports his breathing is improved. He has not needed supplemental oxygen at all this morning, and wore his baseline of 2 L overnight. Patient reports he is still coughing up sputum, and that it has been becoming looser. He denies any fevers, sweats, chills. Patient is anticipating return to the [facility] today. ROS: Constitutional: No fever, sweats or chills Eyes: No diplopia, no worsening or blurred vision ENT: normal hearing, no trouble swallowing Respiratory: No cough, sputum, dyspnea at rest or on exertion Cardiovascular: No chest pain, tightness or palpitations Abdomen: No pain, nausea, vomiting, diarrhea or constipation Musculoskeletal: No joint pain, calf pain, swelling Neurologic: No weakness, numbness/tingling, or balance problems Psychiatric: No anxiety or depression Skin: No rash or itch PE: General Appearance: WD/WN, no apparent distress, + obese Eyes: PERRL, EOMI ENT: hearing grossly normal, pharynx normal Neck: supple, no JVD Respiratory/Chest: chest non-tender, no accessory muscle use, + pertinent finding (On room air, improved breath sounds throughout, +mild rhonchi at R base but improved with cough, clear on the left side. No crackles or wheeze.) Cardiovascular: regular rate, rhythm, no murmur Abdomen: normal bowel sounds, non tender, soft, +chronic indwelling gomez draining clear yellow urine Extremities: normal inspection, no calf tenderness, + pedal edema (1+ pitting in the RLE, minimal edema in the LLE.) 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: alert, normal mood/affect, oriented x 3 Skin: normal color, warm/dry (Yuliya Cabello, ROSSANA) Hospital Course History of Present Illness per Andre Abdi M.D. Source: patient, family, hospital records The patient is an 86-year-old male who reports worsening shortness of breath over the past 3 mornings, that was bad enough this morning that after not responding to Xopenex and with his pulse ox in the 70s, he was brought to the emergency department for assessment. He's had a worsening productive cough over the past 3 days, but has not had any chest pain or lightheadedness or dizziness. His reports that these symptoms are similar to what brought him into the hospital for admission his last visit. Physical Exam Vital Signs Date Time Temp Pulse Resp B/P (MAP) Pulse Ox O2 Delivery O2 Flow Rate FiO2 03/13/17 12:33 58 18 109/90 97 Nasal Cannula 2.0 03/13/17 11:21 57 16 122/72 98 Room Air 03/13/17 10:44 97 Nasal Cannula 2.0 03/13/17 10:44 97 Nasal Cannula 2.0 03/13/17 10:19 36.6 62 16 100/62 92 Room Air 03/13/17 10:18 56 The patient is awake, well-developed and adequately nourished, alert and oriented 3, normocephalic and atraumatic, lying in bed and in no acute distress. HEENT--PERRL, EOMI, mucous membranes and oropharynx dry. Neck--supple, no JVD or bruits, thyroid normal, trachea midline, no adenopathy. Heart--normal S1 and S2, no extra beats, no murmurs, rubs or gallops. Lungs--crackles throughout, no respiratory distress, no accessory muscle use. Abdomen--normal bowel sounds and soft, nontender and nondistended, no hernias or masses, no organomegaly. Extremities--no cyanosis, clubbing. There is bilateral pretibial 1+ pitting Edema. There are good distal pulses b/l. Dermatologic--normal skin turgor, normal color, warm and dry, no abnormal lymph nodes. Ecchymoses bilateral extremities left worse than right. Neurologic--cranial nerves II through XII grossly intact. Rheumatologic--normal range of motion, nontender, muscles and joints. Psychiatric--normal affect. Hospital course: 86 M with Acute on chronic respiratory failure with hypoxia and Bilateral lower lobe pneumonia Pneumonia, + staph aureus on sputum culture - vancomycin IV, Zosyn IV, Levaquin IV x 3 days, will switch over to oral Augmentin 875 mg BID x the next 8 days, and Zyvox 600 mg BID x 10 days to cover potential MRSA as sputum culture is still preliminary. PCP at the [facility] to follow results. If final culture results are negative for MRSA then can DC Zyvox. - Pt has been weaned off daytime O2, and is back to his baseline, wears 2 L via NC at night - BCx negative x 2 sets - Continue supportive care with pulmonary toilet- mucinex, flutter and pulmonary toilet Acute on Chronic respiratory failure, with hypoxia, Xopenex/Atrovent nebulizers , supplemental oxygen, mobilize secretions - Solu-Medrol weaned down to prednisone- No wheeze on exam today -continue prednisone taper over the course of the next week - Hold Advair Diskus, Combivent, prednisone 30 mg daily. CAD HTN Hx of MO CHF Coronary artery stent Cerebrovascular disease Hx of TIA - 6-7 months ago - Cardiac enzymes negative x 3 - 2D echo and carotid dopplers ordered - aspirin 81 mg, atenolol 12.5 mg, clopidogrel 75 mg, torsemide 60 mg, atorvastatin 20 mg Hx of DVT - 1 mo ago diagnosed with RLE DVT at the [facility] - Pt was started on coumadin, continue for now - INR = 3.3 at time of discharge. The patient was told to hold tonight's dose as his INR has slowly been increasing, and is likely to increase with initiation of Augmentin. [facility] and adjust Coumadin accordingly. - This the pts first known event. Orthostasis - fludrocortisone 0.1 mg bid - pt typically feels lightheaded/dizzy until early afternoon, stable Diabetes mellitus - Lantus 55 units hs, hold NovoLog Mix 70/30. - ISS with accuchecks ACHS CKD 3 stable - follow prp, appears slightly bumped from baseline which is around 1.4, trended downward slightly to 1.9 BPH/chronic indwelling Gomez- - dutasteride 0.5 mg by mouth daily, methenamine hippurate 1 g, and tamsulosin 0.4 mg - Gomez draining clear yellow urine Neuropathic pain/Chronic pain - gabapentin 800 mg tid, OxyContin 15 mg q12 - Pt had hx of shingles over R lower back - continue lidocaine patch here. Depression- -duloxetine 30 mg DVT ppx: teds, scds, Coumadin CODE STATUS: Full code Disposition: From the [facility], discharged today. Total Time Spent: Greater than 30 minutes This includes examination of the patient, discharge planning, medication reconciliation, and communication with other providers. (Yuliya Cabello PA-C) Attending Discharge Note & Attestation: Pt seen/examined, chart reviewed, discharge care plan d/w LEANNE Cabello on day of discharge. I agree w/ the hutchison components of her discharge summary. 86yo male with chronic hypoxic respiratory failure due to COPD, on home O2, with recent hospital stay for COPD exacerbation and pneumonia, who presented again with worsening cough/dyspnea/sputum production/hypoxia. He was treated with steroids and antibiotics during his previous admission and sent home with levaquin by mouth. CXR this admission showed bibasilar opacities suggestive of ongoing pneumonia. He improved with use of broad-spectrum IV antibiotic therapy including coverage for gram negatives, anaerobes, and MRSA. IV steroids, nebs, and pulmonary toilet were employed as well. On day of discharge his sputum culture is growing staph aureus, sensitivities pending. 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 At time of discharge he will complete a course of augmentin (for typical pathogens & anaerobes) along with zyvox in the event the staph aureus is indeed MRSA. A course of oral prednisone was also recommended and he will wean to his usual daily dose. Lastly, INR on day of discharge was 3.3. It was advised to HOLD his coumadin on day of discharge and to have the INR rechecked on 03/18/17. Discharge exam - gen - NAD mouth - no thrush neck - no JVD heart - RRR, s1, s2 lungs - b/l wheezing (mild), crackles both bases (fine) abd - soft, NT ext - no edema The patient follows with Dr. Meir Whiteside, [facility], and in light of his 2 [id number] hospital stays he should have follow-up with him within 1 week if possible. Follow-up with Dr. Franco, his PCP, is recommended within 3-5 days at most. Nima Santoro MD (Nima Santoro MD) Discharge Instructions Please refer to the electronic Patient Visit Report (Discharge Instructions) for additional information. (Yuliya Cabello PA-C) Follow-Up Follow up with your Primary Care Provider within 1 week. (Yuliya Cabello PA-C) Additional Copies To Meir Whiteside DO; Wilver Franco M.D.; [facility]
[2017-03-26] MEDS ORDERED: WARF3TAB6 PO (20:54)
[2017-03-28] MEDS ORDERED: HYD10 PO (16:37)
[2017-03-28] MEDS ORDERED: OXYSR15 PO (16:37)
[2017-03-28] MEDS ORDERED: MCRK20 PO (16:37)
[2017-03-28] MEDS ORDERED: CYAN10005 PO (16:37)
[2017-03-28] MEDS ORDERED: HYDR20TA PO (16:53)
[2017-03-28] MEDS ORDERED: FLUC100T4 PO (17:10)
== END 2017-03-16 11:35 | DRG 189 ==
LOC: EDBD 10:06 → C.EDB 10:07 → C.2E 12:48 → ENRESERV 13:29 → CANRESERV 13:29 → ENRESERV 13:34 → C.4E 03-15 16:45
PROVIDERS: ADMIT Hospitalist; ATTEND Internal Medicine
DX: J96.21 Acute and chronic respiratory failure with hypoxia (principal); J44.0 Chronic obstructive pulmonary disease with (acute) lower respiratory infection; J15.211 Pneumonia due to Methicillin susceptible Staphylococcus aureus; I13.0 Hypertensive heart and chronic kidney disease with heart failure and stage 1 through stage 4 chronic kidney disease, or unspecified chronic kidney disease; J44.1 Chronic obstructive pulmonary disease with (acute) exacerbation; I25.10 Atherosclerotic heart disease of native coronary artery without angina pectoris; I50.9 Heart failure, unspecified; N18.3 Chronic kidney disease, stage 3 (moderate); I95.89 Other hypotension; E11.22 Type 2 diabetes mellitus with diabetic chronic kidney disease; E78.5 Hyperlipidemia, unspecified; K21.9 Gastro-esophageal reflux disease without esophagitis; N40.0 Benign prostatic hyperplasia without lower urinary tract symptoms; G52.1 Disorders of glossopharyngeal nerve; F32.9 Major depressive disorder, single episode, unspecified; G89.29 Other chronic pain; K59.00 Constipation, unspecified; I25.2 Old myocardial infarction; Z98.61 Coronary angioplasty status; Z86.73 Personal history of transient ischemic attack (TIA), and cerebral infarction without residual deficits; Z86.718 Personal history of other venous thrombosis and embolism; Z86.14 Personal history of Methicillin resistant Staphylococcus aureus infection; Z87.891 Personal history of nicotine dependence; Z79.01 Long term (current) use of anticoagulants; Z79.02 Long term (current) use of antithrombotics/antiplatelets; Z79.1 Long term (current) use of non-steroidal anti-inflammatories (NSAID); Z79.4 Long term (current) use of insulin; Z79.51 Long term (current) use of inhaled steroids; Z79.52 Long term (current) use of systemic steroids; Z79.82 Long term (current) use of aspirin; Z79.891 Long term (current) use of opiate analgesic; Z79.899 Other long term (current) drug therapy; Z82.49 Family history of ischemic heart disease and other diseases of the circulatory system; I82.409 Acute embolism and thrombosis of unspecified deep veins of unspecified lower extremity

== ENCOUNTER → 2017-03-19 | Outpatient (CLI) | payer OTHER ==
[~2017-03-19] MED LIST changes: +ADVIN25/60 INH; +AMOX875T PO; -CALC625T4 PO; -CMD5 PO; +CYAN10005 PO; +CYAN1TAB18 PO; +DULO60CA44 PO; -ENOX120I SQ; +FLUC100T4 PO; +FLUD0.1T10 PO; +HYD10 PO; +HYDR20TA PO; +LINE1TAB6 PO; +METO2.5T PO; +OXGN; +OXYC15TA89 PO; +PRED10TA PO; +PRED20TA PO; +WARF2.5T8 PO; +WARF2TAB PO; +WARF3TAB6 PO; +[UNRECOGNIZED DRUG - CODE] TOP
[2017-03-19 09:42] LABS: INR 1.4 (0.9-1.1); PROTHROMBIN TIME (PATIENT) 14.7 SECONDS (9.0-12.0)
== END ==
LOC: C.LABVPSUA 09:16
PROVIDERS: ATTEND Internal Medicine Critical Care Medicine
DX: I48.91 Unspecified atrial fibrillation (principal)

== ENCOUNTER → 2017-03-21 | Outpatient (CLI) | payer OTHER ==
[2017-03-21 10:00] LABS: INR 1.1 (0.9-1.1); PROTHROMBIN TIME (PATIENT) 11.7 SECONDS (9.0-12.0)
== END | disposition home or self-care (01) ==
LOC: C.LABVPSUA 09:26
PROVIDERS: ATTEND Internal Medicine Critical Care Medicine
DX: I82.409 Acute embolism and thrombosis of unspecified deep veins of unspecified lower extremity (principal)

== ENCOUNTER → 2017-03-25 | Outpatient (CLI) | payer OTHER ==
[2017-03-25 09:53] LABS: INR 2.2 (0.9-1.1); PROTHROMBIN TIME (PATIENT) 24.3 SECONDS (9.0-12.0)
== END | disposition home or self-care (01) ==
LOC: C.LABVPSUA 09:14
PROVIDERS: ATTEND Internal Medicine Critical Care Medicine
DX: I82.409 Acute embolism and thrombosis of unspecified deep veins of unspecified lower extremity (principal)

== ENCOUNTER 2017-03-26 18:56 | Inpatient (IN) | payer OTHER ==
[~2017-03-26] VITALS: Ht 185.4 cm; Wt 102.5 kg
[~2017-03-26 18:56] MED LIST changes: -ADVIN25/60 INH; -AMOX875T PO; -CYAN10005 PO; -CYAN1TAB18 PO; -DULO60CA44 PO; -FLUC100T4 PO; -FLUD0.1T10 PO; -HYD10 PO; -HYDR20TA PO; -HYDR20TA3 PO; -METO2.5T PO; -OXYC15TA89 PO; -WARF2TAB PO; -WARF3TAB6 PO
[2017-03-26] MEDS ORDERED: SODIUM CHLORIDE 0.9% 500ML 500 ML IV STA ×2 (19:06→19:58)
--- NOTE | 2017-03-26 19:33 | DIAGNOSTIC IMAGING REPORT ---
CHEST ONE VIEW PORTABLE HISTORY: Sepsis COMPARISON: Chest 03/13/2017. FINDINGS: There are low lung volumes. The heart remains stable in size. No pleural effusions. No pneumothorax. A surgical clip overlying the gastric bubble. Emphysema is again noted. Focal left upper lung zone linear density is again noted. Hazy appearance to the periphery of the right upper lung zone has progressed. IMPRESSION: 1. Progressive hazy airspace opacity within the periphery of the right upper lobe. This may represent a developing pneumonia. 2. Stable linear scarlike density within the left upper lung zone is again noted. Electronically signed by: Aubrey Kaplan M.D. 03/26/2017 7:32 PM Dictated Date/Time: 03/26/2017 7:29 PM
[2017-03-26] MEDS ORDERED: VANCOMYCIN INJ 1,000 MG in SODIUM CHLORIDE 0.9% 250ML 250 ML IV STA (19:58)
[2017-03-26] MEDS ORDERED: LEVAQUIN 750MG / 150ML D5W IV STA (19:58)
[2017-03-26] MEDS ORDERED: PIPERACILLIN/TAZOBACTAM 4.5 GM/100ML D5W IV STA (19:58)
[2017-03-26 20:04] LABS: BASO % 0.4 %; BASO ABS # 0.02 K/uL (0-0.2); COMPLETE YES; EOS % 1.7 %; HEMATOCRIT 39.1 % (42-52); IG% 0.4 %; LYMPH % 17.2 %; LYMPH ABS # 0.81 K/uL (1.2-3.4); MEAN CELL VOLUME 90.1 fL (80-100); MEAN CORPUSCULAR HEMOGLOBIN 27.9 pg (25-34); MEAN CORPUSCULAR HGB CONC 30.9 g/dl (32-36); MEAN PLATELET VOLUME 9.5 fL (7.4-10.4); MONO % 11.5 %; NEUT % 68.8 %; PLATELET COUNT 117 K/uL (130-400); RED BLOOD COUNT 4.34 M/uL (4.7-6.1); WHITE BLOOD COUNT 4.71 K/uL (4.8-10.8)
[2017-03-26 20:08] LABS: ISTAT CREATININE 2.1 mg/dl (0.6-1.3); ISTAT HEMOGLOBIN 12.9 g/dl (14.0-18.0); ISTAT IONIZED CALCIUM 1.04 mmol/l (1.12-1.32)
[2017-03-26 20:22] LABS: INR 2.3 (0.9-1.1); PARTIAL THROMBOPLASTIN RATIO 1.4; PROTHROMBIN TIME (PATIENT) 25.4 SECONDS (9.0-12.0)
[2017-03-26 20:31] LABS: BUN/CREATININE RATIO 12.8 (10-20); CALCIUM 8.7 mg/dl (8.5-10.1); CKMB/CK RATIO 1.5 (0-3.0); POTASSIUM 3.3 mmol/L (3.5-5.1)
[2017-03-26 20:33] LABS: ALB/GLOB RATIO 0.9 (0.9-2)
[2017-03-26 20:48] LABS: URINE APPEARANCE CLEAR (CLEAR); URINE BILIRUBIN NEG (NEG); URINE COLOR YELLOW; URINE EPITHELIAL CELL AUTO 0-5 /lpf (0-5); URINE NITRITE NEG (NEG); URINE PH 5.5 (4.5-7.5); URINE SPECIFIC GRAVITY 1.014 (1.000-1.030); UROBILINOGEN NEG (NEG); ZZUR CULT IF INDIC CLEAN CATCH YES
[2017-03-26 20:49] LABS: MANUAL MICROSCOPIC REQUIRED? NO; REVIEW REQ? YES
[2017-03-26] MEDS ORDERED: WARF3TAB6 PO ×2 (20:54)
--- NOTE | 2017-03-26 20:58 | EMERGENCY ROOM VISIT NOTE ---
History Report prepared by Hood: Cece Ureña Under the Supervision of: Dr. Nasir Pablo M.D. First contact with patient: 18:57 Stated Complaint: TREMORS History of Present Illness The patient is an 86 year old male who presents to the Emergency Room with complaints of an episode of tremors starting an hour ago. The patient states that he lives at the [facility] and was visiting his who lives in the [place] at [facility] for dinner. He states that while eating he started shaking. The patient complains of nausea and abdominal pain. He currently rates his pain as a 6/10 in severity. The patient denies falling recently. EMS notes that the shaking did not appear to be seizure like. Source of History: patient, EMS Onset: an hour ago Position: other (global) Symptom Intensity: 6/10 Quality: other (global) Timing: other (episode) Associated Symptoms: + nausea, + abdominal pain Note: The patient denies recent falls. Review of Systems See HPI for pertinent positives & negatives. A total of 10 systems reviewed and were otherwise negative. Past Medical & Surgical Medical Problems: (1) Acute on chronic respiratory failure with hypoxia and hypercapnia (2) Acute renal failure (3) Anemia (4) Aspiration pneumonia (5) Asthma (6) chronic kidney disease (7) COPD (chronic obstructive pulmonary disease) (8) Coronary artery disease (9) CVA (cerebrovascular accident) (10) Essential hypertension (11) HTN (hypertension) (12) Hx of diabetes mellitus (13) Hypercholesterolemia (14) Hyperparathyroidism (15) Hypotension (16) Influenza A (17) AK (myocardial infarction) (18) Peripheral vascular disease (19) Staphylococcus aureus pneumonia (20) TIA (transient ischemic attack) (21) Urinary retention (22) Urosepsis Surgical Problems: (1) H/O heart artery stent Family History FH: heart disease Hypertension Social History Smoking Status: Former Smoker Alcohol Use: occasionally Drug Use: none Marital Status: Housing Status: assisted living Occupation Status: retired Current/Historical Medications Scheduled Acetaminophen (Tylenol), 1,000 MG PO Q12 Aspirin (Aspirin Chewable), 81 MG PO DAILY Atenolol (Tenormin), 12.5 MG PO DAILY Atorvastatin (Atorvastatin Calcium), 20 MG PO HS Bisacodyl (Bisacodyl), 5 MG PO BID Ciclopirox (Ciclodan), 1 APPLN TOP QPM Clopidogrel (Plavix), 75 MG PO DAILY Docusate Sodium (Colace), 100 MG PO BID Duloxetine HCl (Duloxetine HCl), 30 MG PO DAILY Dutasteride (Dutasteride), 0.5 MG PO DAILY Famotidine (Famotidine), 20 MG PO HS Fiber Laxative (Fiber Laxative), 1 TAB PO DAILY Fludrocortisone Acetate (Fludrocortisone Acetate), 0.1 MG PO BID Fluticasone Prop/Salmeterol (Advair Diskus 250-50 Mcg/Dose), 1 PUFF INH BID Fluticasone Propionate (Fluticasone Propionate), 2 SPRAYS NA DAILY Gabapentin (Gabapentin), 800 MG PO TID Guaifenesin Ext Rel (Mucinex Ext Rel), 1,200 MG PO Q12 Home O2 Therapy (Oxygen), 1 LITER NA PRN Insulin Aspart 70/30 (Novolog Mix 70/30), 5 UNITS SQ QPM Insulin Aspart Protamine & Asp (Novolog Mix 70/30), 20 UNITS SQ QAM Insulin Glargine (Lantus), 55 UNIT SQ HS Ipratropium-Albuterol (Combivent Respimat), 1 PUFF INH QID Lidocaine (Lidocaine), 1 PATCH TD QAM Magnesium Oxide (Mag-Ox), 400 MG PO BID Methenamine Hippurate (Methenamine Hippurate), 1 GM PO HS Multiple Vitamins W/ Minerals (Therems M), 1 TAB PO DAILY Omeprazole (Prilosec), 20 MG PO DAILY Oxycodone HCl (Oxycontin), 15 MG PO Q12 Polyethylene Glycol 3350 (Miralax), 17 GM PO BID Polyethylene Glycol-Propylene (Systane Ultra), 1 DROPS OPB BID Potassium Chloride (Klor-Con M20), 40 MEQ PO TID Tamsulosin Hcl (Flomax), 0.4 MG PO HS Torsemide (Torsemide), 60 MG PO QAM Warfarin Sod (Jantoven), 3 MG PO DAILY Scheduled PRN Levalbuterol (Levalbuterol HCl), 1 VIAL NEB Q4 PRN for Wheezing Nitroglycerin (Nitrostat), 1 TAB SL UD PRN for Chest Pain Simethicone (Gas-X), 80 MG PO QID PRN for Indigestion Trolamine Salicylate (Aspercreme), 1 APPLN TOP BID PRN for ARTHRITIS PAIN Allergies Coded Allergies: No Known Allergies (Unverified , 03/13/17) Physical Exam Vital Signs Date Time Temp Pulse Resp B/P (MAP) Pulse Ox O2 Delivery O2 Flow Rate FiO2 03/27/17 00:58 67 20 96/52 96 Room Air 03/26/17 23:30 37.0 03/26/17 23:00 76 20 123/63 96 Room Air 03/26/17 22:41 76 03/26/17 21:37 72 20 135/76 93 Room Air 03/26/17 20:47 70 20 112/71 96 Room Air 03/26/17 20:02 76 20 126/73 96 Room Air 03/26/17 20:00 97 Room Air 03/26/17 19:10 37.2 75 20 117/64 98 Room Air Physical Exam GENERAL: Patient is a healthy-appearing well-nourished HEAD: Normocephalic atraumatic EYES: Ocular movements intact pupils equal and react to light. Quarter sized contusion to the right eye. Good ROM. OROPHARYNX mucous membranes are moist no exudates present no erythema or edema present NECK: Supple no nuchal rigidity CHEST: Good equal expansion LUNGS: Clear and equal to auscultation CARDIAC: Normal S1 and S2 ABDOMEN: Soft, no guarding. Multiple areas of bruising present to the lower quadrant of the abdomen.Mildly tender throughout the abdomen. BACK: No CVA tenderness EXTREMITIES: No pain upon palpation normal muscle strength in all groups no clubbing cyanosis or edema NEURO: Patient is following commands and answering questions appropriately. Alert and oriented x3 Cranial Nerves 2-12 grossly intact Medical Decision & Procedures ER Provider Diagnostic Interpretation: Radiology results as stated below per my review and radiologist interpretation: CHEST ONE VIEW PORTABLE HISTORY: Sepsis COMPARISON: Chest 03/13/2017. FINDINGS: There are low lung volumes. The heart remains stable in size. No pleural effusions. No pneumothorax. A surgical clip overlying the gastric bubble. Emphysema is again noted. Focal left upper lung zone linear density is again noted. Hazy appearance to the periphery of the right upper lung zone has progressed. IMPRESSION: 1. Progressive hazy airspace opacity within the periphery of the right upper lobe. This may represent a developing pneumonia. 2. Stable linear scarlike density within the left upper lung zone is again noted. Electronically signed by: Aubrey Kaplan M.D. 03/26/2017 7:32 PM Dictated Date/Time: 03/26/2017 7:[address] WITHOUT CONTRAST CLINICAL HISTORY: Right eye hematoma. COMPARISON STUDY: MRI of the brain March 03, 2017. TECHNIQUE: A maxillofacial CT was performed without IV contrast. Coronal and sagittal reformats were viewed. A dose lowering technique was utilized adhering to the principles of ALARA. FINDINGS: No acute facial fracture is noted. Incidental note is made of a 1.6 cm lesion within the left parotid gland. The globes are intact. There is no retrobulbar hematoma. No fluid collection is identified on this unenhanced examination. There is mild mucosal thickening of the sinuses. Visualized portions of the intracranial contents are unremarkable. IMPRESSION: 1. No acute facial fracture. 2. Globes intact with no retrobulbar hematoma. No fluid collection. 3. 1.6 cm left parotid gland lesion. This lesion is indeterminate but likely benign and of questionable clinical significance. Electronically signed by: Arcenio Mejia M.D. 03/26/2017 9:14 PM Dictated Date/Time: 03/26/2017 9:[address] OF THE ABDOMEN AND PELVIS WITHOUT CONTRAST CLINICAL HISTORY: Diffuse abdominal pain. COMPARISON STUDY: CT of the abdomen and pelvis November 08, 2016. TECHNIQUE: Axial images of the abdomen and pelvis were obtained without IV contrast. Images were reviewed in the axial, sagittal, and coronal planes. A dose lowering technique was utilized adhering to the principles of ALARA. FINDINGS: No renal, ureteral or bladder calculi are identified. There is no hydronephrosis. A 1.4 cm lesion arising from the lower pole of the left kidney is suboptimally assessed on this unenhanced exam but measures water attenuation. This likely reflects a cyst. Evaluation of the abdomen and pelvis is suboptimal on this unenhanced exam. Unenhanced images of the liver, spleen, adrenal glands and pancreas are unremarkable. There is no evidence for a bowel obstruction. The appendix is normal. A Ball balloon is present within the bladder which is collapsed. There is no ascites or lymphadenopathy. There is no abscess. Extensive left colon diverticulosis is noted without evidence of acute diverticulitis. There is no free air, pneumatosis or portal venous gas. No suspicious skeletal lesions are identified. There are small fat-containing bilateral inguinal hernias. IMPRESSION: 1. No urinary calculi or hydronephrosis. 2. No acute process within the abdomen or pelvis on unenhanced exam. 3. Extensive colonic diverticulosis without evidence of acute diverticulitis. Electronically signed by: Arcenio Mejia M.D. 03/26/2017 9:25 PM Dictated Date/Time: 03/26/2017 9:19 PM Laboratory Results 03/26/17 19:45 Red Blood Count 4.34, Mean Corpuscular Volume 90.1, Mean Corpuscular Hemoglobin 27.9, Mean Corpuscular Hemoglobin Concent 30.9, Mean Platelet Volume 9.5, Neutrophils (%) (Auto) 68.8, Lymphocytes (%) (Auto) 17.2, Monocytes (%) (Auto) 11.5, Eosinophils (%) (Auto) 1.7, Basophils (%) (Auto) 0.4, Neutrophils # (Auto ) 3.24, Lymphocytes # (Auto) 0.81, Monocytes # (Auto) 0.54, Eosinophils # (Auto ) 0.08, Basophils # (Auto) 0.02 03/26/17 19:45 Test 03/26/17 19:13 03/26/17 19:45 03/26/17 19:54 03/26/17 19:58 Bedside Glucose 262 mg/dl (70-99) White Blood Count 4.71 K/uL (4.8-10.8) Red Blood Count 4.34 M/uL (4.7-6.1) Hemoglobin 12.1 g/dL (14.0-18.0) Hematocrit 39.1 % (42-52) Mean Corpuscular Volume 90.1 fL (80-100) Mean Corpuscular Hemoglobin 27.9 pg (25-34) Mean Corpuscular Hemoglobin Concent 30.9 g/dl (32-36) Platelet Count 117 K/uL (130-400) Mean Platelet Volume 9.5 fL (7.4-10.4) Neutrophils (%) (Auto) 68.8 % Lymphocytes (%) (Auto) 17.2 % Monocytes (%) (Auto) 11.5 % Eosinophils (%) (Auto) 1.7 % Basophils (%) (Auto) 0.4 % Neutrophils # (Auto) 3.24 K/uL (1.4-6.5) Lymphocytes # (Auto) 0.81 K/uL (1.2-3.4) Monocytes # (Auto) 0.54 K/uL (0.11-0.59) Eosinophils # (Auto) 0.08 K/uL (0-0.5) Basophils # (Auto) 0.02 K/uL (0-0.2) RDW Standard Deviation 61.8 fL (36.4-46.3) RDW Coefficient of Variation 18.9 % (11.5-14.5) Immature Granulocyte % (Auto) 0.4 % Immature Granulocyte # (Auto) 0.02 K/uL (0.00-0.02) Prothrombin Time 25.4 SECONDS (9.0-12.0) Prothromb Time International Ratio 2.3 (0.9-1.1) Activated Partial Thromboplast Time 35.8 SECONDS (21.0-31.0) Partial Thromboplastin Ratio 1.4 Est Creatinine Clear Calc Drug Dose 33.6 ml/min Estimated GFR () 34.0 Estimated GFR (Non- 29.3 BUN/Creatinine Ratio 12.8 (10-20) Calcium Level 8.7 mg/dl (8.5-10.1) Total Bilirubin 0.4 mg/dl (0.2-1) Aspartate Amino Transf (AST/SGOT) 21 U/L (15-37) Alanine Aminotransferase (ALT/SGPT) 36 U/L (12-78) Alkaline Phosphatase 81 U/L (45-117) Total Creatine Kinase 240 U/L (39-308) Creatine Kinase MB 3.6 ng/ml (0.5-3.6) Creatine Kinase MB Ratio 1.5 (0-3.0) Troponin I 0.017 ng/ml (0-0.045) Total Protein 7.3 gm/dl (6.4-8.2) Albumin 3.4 gm/dl (3.4-5.0) Globulin 3.9 gm/dl (2.5-4.0) Albumin/Globulin Ratio 0.9 (0.9-2) Bedside Lactic Acid Venous 4.99 mmol/L (0.90-1.70) Bedside Hemoglobin 12.9 g/dl (14.0-18.0) Bedside Hematocrit 38 % (42-52) Bedside Sodium 142 mEq/L (135-144) Bedside Potassium 3.3 mEq/L (3.3-5.0) Bedside Chloride 101 mEq/L (101-112) Bedside Total CO2 26 mEq/l (24-31) Anion Gap 19.0 mmol/L (16-25) Bedside Blood Urea Nitrogen 25 mg/dl (7-18) Bedside Creatinine 2.1 mg/dl (0.6-1.3) Bedside Glucose (other) 146 mg/dl (70-99) Bedside Ionized Calcium (Danny) 1.04 mmol/l (1.12-1.32) Test 03/26/17 20:25 03/26/17 20:50 Urine Color YELLOW Urine Appearance CLEAR (CLEAR) Urine pH 5.5 (4.5-7.5) Urine Specific [place] 1.014 (1.000-1.030) Urine Protein NEG (NEG) Urine Glucose (UA) NEG (NEG) Urine Ketones NEG (NEG) Urine Occult Blood TRACE (NEG) Urine Nitrite NEG (NEG) Urine Bilirubin NEG (NEG) Urine Urobilinogen NEG (NEG) Urine Leukocyte Esterase LARGE (NEG) Urine WBC (Auto) >30 /hpf (0-5) Urine RBC (Auto) 0-4 /hpf (0-4) Urine Hyaline Casts (Auto) 5-10 /lpf (0-5) Urine Epithelial Cells (Auto) 0-5 /lpf (0-5) Urine Bacteria (Auto) NEG (NEG) Urine Yeast (Auto) BUD W/ HYPHAE (NONE PRSENT) Influenza Type A (RT-PCR) Neg for Influ A (NEG) Influenza Type A Antigen Neg for Influ A (NEG) Influenza Type B Antigen Neg for Influ B (NEG) Influenza Type B (RT-PCR) Neg for Influ B (NEG) Labs reviewed by ED physician. Medications Administered Medications (Trade) Dose Ordered Sig/Cole Route Start Time Stop Time Status Last Admin Dose Admin Sodium Chloride 500 ml @ 999 mls/hr Q31M STAT IV 03/26/17 19:06 03/26/17 19:36 DC 03/26/17 20:40 999 MLS/HR Piperacillin Sod/ Tazobactam Sod (Zosyn Iv) 4.5 gm NOW STAT IV 03/26/17 19:58 03/26/17 20:01 DC 03/26/17 20:40 4.5 GM Levofloxacin (Levaquin / D5W) 750 mg NOW STAT IV 03/26/17 19:58 03/26/17 20:01 DC 03/26/17 21:34 750 MG Vancomycin HCl 1000 mg/Sodium Chloride 270 ml @ 125 mls/hr NOW STAT IV 03/26/17 19:58 03/26/17 22:07 DC 03/26/17 20:46 125 MLS/HR Sodium Chloride 500 ml @ 999 mls/hr Q31M STAT IV 03/26/17 19:58 03/26/17 20:28 DC 03/26/17 19:58 999 MLS/HR ECG Indication: abdominal pain Rate (beats per minute): 76 Rhythm: normal sinus Findings: RBBB, no acute ischemic change, no ectopy, other (short MI interval) ED Course 1900: Past medical records reviewed. The patient was evaluated in room C10. A complete history and physical examination was performed. 1905: Ordered NSS 500 ml @ 999 mls/hr IV. 1957: Ordered NSS 500 ml @ 999 mls/hr IV, Vancomycin HCl 1000 mg/Sodium Chloride 270 ml @ 125 mls/hr IV, Levofloxacin 750 mg IV, Zosyn Iv 4.5 gm IV. 2126: I discussed the patient's case with Dr. Gross, he has agreed to evaluate the patient for further management and care. Medical Decision Etiologies such as viral syndrome, otitis, pharyngitis, pneumonia, influenza, meningitis, urinary tract infection, sepsis, bacteremia, as well as others were entertained. This is an 86-year-old male who presents emergency department complaining of rigors. The patient has been hospitalized multiple times for pneumonia this year and it appears she has a growing pneumonia on his chest x-ray. He has a depression in his white blood cell count. An IV was established, the patient given normal saline bolus, Zosyn, Levaquin, vancomycin. I did discuss case with the hospitalist service who agreed to admit the patient. Patient was in agreement with the treatment plan. Medication Reconcilliation Current Medication List: was personally reviewed by me Blood Pressure Screening Patient's blood pressure: Normal blood pressure Blood pressure disposition: Did not require urgent referral Consults Time Called: 2125 Consulting Physician: Dr. Gross- [facility] [place] Returned Call: [phone] I discussed the patient's case with Dr. Gross, he has agreed to evaluate the patient for further management and care. Impression Primary Impression: Pneumonia Scribe Attestation The scribe's documentation has been prepared under my direction and personally reviewed by me in its entirety. I confirm that the note above accurately reflects all work, treatment, procedures, and medical decision making performed by me. Departure Information Dispostion Being Evaluated By Hospitalist [facility] (PCP) Problem Qualifiers Primary Impression: Pneumonia Pneumonia type: due to unspecified organism Laterality: unspecified laterality Lung location: unspecified part of lung Qualified Codes: J18.9 - Pneumonia, unspecified organism
--- NOTE | 2017-03-26 21:16 | DIAGNOSTIC IMAGING REPORT ---
MAXILLOFACIAL CT WITHOUT CONTRAST CLINICAL HISTORY: Right eye hematoma. COMPARISON STUDY: MRI of the brain March 03, 2017. TECHNIQUE: A maxillofacial CT was performed without IV contrast. Coronal and sagittal reformats were viewed. A dose lowering technique was utilized adhering to the principles of ALARA. FINDINGS: No acute facial fracture is noted. Incidental note is made of a 1.6 cm lesion within the left parotid gland. The globes are intact. There is no retrobulbar hematoma. No fluid collection is identified on this unenhanced examination. There is mild mucosal thickening of the sinuses. Visualized portions of the intracranial contents are unremarkable. IMPRESSION: 1. No acute facial fracture. 2. Globes intact with no retrobulbar hematoma. No fluid collection. 3. 1.6 cm left parotid gland lesion. This lesion is indeterminate but likely benign and of questionable clinical significance. Electronically signed by: Arcenio Mejia M.D. 03/26/2017 9:14 PM Dictated Date/Time: 03/26/2017 9:07 PM
--- NOTE | 2017-03-26 21:27 | DIAGNOSTIC IMAGING REPORT ---
CT OF THE ABDOMEN AND PELVIS WITHOUT CONTRAST CLINICAL HISTORY: Diffuse abdominal pain. COMPARISON STUDY: CT of the abdomen and pelvis November 08, 2016. TECHNIQUE: Axial images of the abdomen and pelvis were obtained without IV contrast. Images were reviewed in the axial, sagittal, and coronal planes. A dose lowering technique was utilized adhering to the principles of ALARA. FINDINGS: No renal, ureteral or bladder calculi are identified. There is no hydronephrosis. A 1.4 cm lesion arising from the lower pole of the left kidney is suboptimally assessed on this unenhanced exam but measures water attenuation. This likely reflects a cyst. Evaluation of the abdomen and pelvis is suboptimal on this unenhanced exam. Unenhanced images of the liver, spleen, adrenal glands and pancreas are unremarkable. There is no evidence for a bowel obstruction. The appendix is normal. A Ball balloon is present within the bladder which is collapsed. There is no ascites or lymphadenopathy. There is no abscess. Extensive left colon diverticulosis is noted without evidence of acute diverticulitis. There is no free air, pneumatosis or portal venous gas. No suspicious skeletal lesions are identified. There are small fat-containing bilateral inguinal hernias. IMPRESSION: 1. No urinary calculi or hydronephrosis. 2. No acute process within the abdomen or pelvis on unenhanced exam. 3. Extensive colonic diverticulosis without evidence of acute diverticulitis. Electronically signed by: Arcenio Mejia M.D. 03/26/2017 9:25 PM Dictated Date/Time: 03/26/2017 9:19 PM
[2017-03-26 22:43] LABS: INFLUENZA A PCR Neg for Influ A (NEG); INFLUENZA B PCR Neg for Influ B (NEG)
--- NOTE | 2017-03-26 22:55 | History and Physical ---
History & Physical Date & Time of Service: Mar 26, 2017 at 22:47 Chief Complaint: Tremors Primary Care Physician: Wilver Franco M.D. History of Present Illness Source: patient, hospital records, other 86 y/o M w/Hx COPD, CAD, CKD 3-4, aspiration, adrenal insufficiency, recurrent PNM, recurrent UTIs. Currently residing in a nursing facility. Pt has been admitted to the hospital 4 x this yr for pneumonia due to aspiration. He was recently admitted and D/Cd for pnm 03/15. He is receiving PO Linezolid currently. He developed a fever and rigors during the day and was sent to the ER. He denies SOB above baseline, a productive cough, CP, N/V. He describes a sensation of uncontrollable twitching - possibly describing rigors. He also complains of lower abdominal pain which he had complained of during previous admissions and may be chronic. He is on a mechanical soft diet at the [facility] due to confirmed aspiration risk. Initial CXR is consistent with recurrent PNM - acute RUL infiltrate. He has not had increased oxygen requirements and is awake and oriented at the time of admission. Past Medical/Surgical History Medical Problems: (1) Anemia Status: Chronic (2) Asthma Status: Chronic (3) COPD (chronic obstructive pulmonary disease) Status: Chronic (4) Coronary artery disease Status: Chronic (5) CVA (cerebrovascular accident) Status: Resolved (6) Essential hypertension Status: Chronic (7) HTN (hypertension) Status: Chronic (8) Hypercholesterolemia Status: Chronic (9) Hyperparathyroidism Status: Chronic (10) Hypotension Status: Chronic (11) IA (myocardial infarction) Status: Resolved (12) Peripheral vascular disease Status: Chronic (13) TIA (transient ischemic attack) Status: Resolved Surgical Problems: (1) H/O heart artery stent Status: Resolved Family History FH: heart disease Hypertension Social History Smoking Status: Former Smoker Drug Use: none Marital Status: Housing status: lives with family, correction Occupational Status: retired Immunizations History of Influenza Vaccine: Yes Influenza Vaccine Date: Jun 08, 2013 History of Tetanus Vaccine?: Unknown History of Pneumococcal: Yes History of Hepatitis B Vaccine: Unknown Multi-Drug Resistant Organisms History of MDRO: Yes Type of MDRO: MRSA Allergies Coded Allergies: No Known Allergies (Unverified , 03/13/17) Home Medications Scheduled Acetaminophen (Tylenol), 1,000 MG PO Q12 Aspirin (Aspirin Chewable), 81 MG PO DAILY Atenolol (Tenormin), 12.5 MG PO DAILY Atorvastatin (Atorvastatin Calcium), 20 MG PO HS Bisacodyl (Bisacodyl), 5 MG PO BID Ciclopirox (Ciclodan), 1 APPLN TOP QPM Clopidogrel (Plavix), 75 MG PO DAILY Docusate Sodium (Colace), 100 MG PO BID Duloxetine HCl (Duloxetine HCl), 30 MG PO DAILY Dutasteride (Dutasteride), 0.5 MG PO DAILY Famotidine (Famotidine), 20 MG PO HS Fiber Laxative (Fiber Laxative), 1 TAB PO DAILY Fludrocortisone Acetate (Fludrocortisone Acetate), 0.1 MG PO BID Fluticasone Prop/Salmeterol (Advair Diskus 250-50 Mcg/Dose), 1 PUFF INH BID Fluticasone Propionate (Fluticasone Propionate), 2 SPRAYS NA DAILY Gabapentin (Gabapentin), 800 MG PO TID Guaifenesin Ext Rel (Mucinex Ext Rel), 1,200 MG PO Q12 Home O2 Therapy (Oxygen), 1 LITER NA PRN Insulin Aspart 70/30 (Novolog Mix 70/30), 5 UNITS SQ QPM Insulin Aspart Protamine & Asp (Novolog Mix 70/30), 20 UNITS SQ QAM Insulin Glargine (Lantus), 55 UNIT SQ HS Ipratropium-Albuterol (Combivent Respimat), 1 PUFF INH QID Lidocaine (Lidocaine), 1 PATCH TD QAM Linezolid (Zyvox), 600 MG PO BID Magnesium Oxide (Mag-Ox), 400 MG PO BID Methenamine Hippurate (Methenamine Hippurate), 1 GM PO HS Multiple Vitamins W/ Minerals (Therems M), 1 TAB PO DAILY Omeprazole (Prilosec), 20 MG PO DAILY Oxycodone HCl (Oxycontin), 15 MG PO Q12 Polyethylene Glycol 3350 (Miralax), 17 GM PO BID Polyethylene Glycol-Propylene (Systane Ultra), 1 DROPS OPB BID Potassium Chloride (Klor-Con M20), 40 MEQ PO TID Tamsulosin Hcl (Flomax), 0.4 MG PO HS Torsemide (Torsemide), 60 MG PO QAM Warfarin Sod (Jantoven), 3 MG PO DAILY Scheduled PRN Levalbuterol (Levalbuterol HCl), 1 VIAL NEB Q4 PRN for Wheezing Nitroglycerin (Nitrostat), 1 TAB SL UD PRN for Chest Pain Simethicone (Gas-X), 80 MG PO QID PRN for Indigestion Trolamine Salicylate (Aspercreme), 1 APPLN TOP BID PRN for ARTHRITIS PAIN Review of Systems Constitutional: + fever, + chills, + weakness, No sweats, No weight loss Eyes: No worsening of vision ENT: No hearing loss, No unusual epistaxis Respiratory: + shortness of breath (chronic), No cough, No sputum, No wheezing Cardiovascular: No chest pain, No orthopnea, No PND Abdomen: + pain, No nausea, No vomiting, No diarrhea, No constipation Musculoskeletal: No joint pain Genitourinary - Male: No hematuria, No dysuria Neurologic: No memory loss, No paralysis, No weakness Psychiatric: No depression symptoms Endocrine: No fatigue Hematologic / Lymphatic: No abnormal bleeding/bruising Integumentary: No rash Allergic / Immunologic: No environmental allergies Physical Exam Vital Signs Date Time Temp Pulse Resp B/P (MAP) Pulse Ox O2 Delivery O2 Flow Rate FiO2 03/26/17 22:41 76 03/26/17 21:37 72 20 135/76 93 Room Air 03/26/17 20:47 70 20 112/71 96 Room Air 03/26/17 20:02 76 20 126/73 96 Room Air 03/26/17 20:00 97 Room Air 03/26/17 19:10 37.2 75 20 117/64 98 Room Air General Appearance: WD/WN, no apparent distress, + pertinent finding (Pleasant , obese, elderly male - AAO x 3 - no distress) Head: normocephalic, atraumatic Eyes: normal inspection ENT: normal ENT inspection, pharynx normal Neck: supple, + pertinent finding (JVD exam limited by habitus ) Respiratory/Chest: no respiratory distress, no accessory muscle use, + pertinent finding (very poor b/l air entry without wheezing/crackles) Cardiovascular: regular rate, rhythm, no edema, no gallop Abdomen/GI: normal bowel sounds, non tender, soft Back: normal inspection, no CVA tenderness, no muscle spasm, normal range of motion Extremities/Musculoskelatal: normal inspection, no calf tenderness, normal capillary refill, + pedal edema Neurologic/Psych: machine packer II-XII nml as tested, no motor/sensory deficits, alert, oriented x 3 Skin: normal color, warm/dry Diagnostics Laboratory Results Results Past 24 Hours Test 03/26/17 19:13 03/26/17 19:45 03/26/17 19:54 03/26/17 19:58 Range/Units Bedside Glucose 262 70-99 mg/dl White Blood Count 4.71 4.8-10.8 K/uL Red Blood Count 4.34 4.7-6.1 M/uL Hemoglobin 12.1 14.0-18.0 g/dL Hematocrit 39.1 42-52 % Mean Corpuscular Volume 90.1 80-100 fL Mean Corpuscular Hemoglobin 27.9 25-34 pg Mean Corpuscular Hemoglobin Concent 30.9 32-36 g/dl Platelet Count 117 130-400 K/uL Mean Platelet Volume 9.5 7.4-10.4 fL Neutrophils (%) (Auto) 68.8 % Lymphocytes (%) (Auto) 17.2 % Monocytes (%) (Auto) 11.5 % Eosinophils (%) (Auto) 1.7 % Basophils (%) (Auto) 0.4 % Neutrophils # (Auto) 3.24 1.4-6.5 K/uL Lymphocytes # (Auto) 0.81 1.2-3.4 K/uL Monocytes # (Auto) 0.54 0.11-0.59 K/uL Eosinophils # (Auto) 0.08 0-0.5 K/uL Basophils # (Auto) 0.02 0-0.2 K/uL RDW Standard Deviation 61.8 36.4-46.3 fL RDW Coefficient of Variation 18.9 11.5-14.5 % Immature Granulocyte % (Auto) 0.4 % Immature Granulocyte # (Auto) 0.02 0.00-0.02 K/uL Prothrombin Time 25.4 9.0-12.0 SECONDS Prothromb Time International Ratio 2.3 0.9-1.1 Activated Partial Thromboplast Time 35.8 21.0-31.0 SECONDS Partial Thromboplastin Ratio 1.4 Sodium Level 141 136-145 mmol/L Potassium Level 3.3 3.5-5.1 mmol/L Chloride Level 103 98-107 mmol/L Carbon Dioxide Level 27 21-32 mmol/L Anion Gap 11.0 19.0 16-25 mmol/L Blood Urea Nitrogen 26 7-18 mg/dl Creatinine 2.00 0.60-1.40 mg/dl Est Creatinine Clear Calc Drug Dose 33.6 ml/min Estimated GFR () 34.0 Estimated GFR (Non- 29.3 BUN/Creatinine Ratio 12.8 10-20 Random Glucose 148 70-99 mg/dl Calcium Level 8.7 8.5-10.1 mg/dl Total Bilirubin 0.4 0.2-1 mg/dl Aspartate Amino Transf (AST/SGOT) 21 15-37 U/L Alanine Aminotransferase (ALT/SGPT) 36 12-78 U/L Alkaline Phosphatase 81 45-117 U/L Total Creatine Kinase 240 39-308 U/L Creatine Kinase MB 3.6 0.5-3.6 ng/ml Creatine Kinase MB Ratio 1.5 0-3.0 Troponin I 0.017 0-0.045 ng/ml Total Protein 7.3 6.4-8.2 gm/dl Albumin 3.4 3.4-5.0 gm/dl Globulin 3.9 2.5-4.0 gm/dl Albumin/Globulin Ratio 0.9 0.9-2 Bedside Lactic Acid Venous 4.99 0.90-1.70 mmol/L Bedside Hemoglobin 12.9 14.0-18.0 g/dl Bedside Hematocrit 38 42-52 % Bedside Sodium 142 135-144 mEq/L Bedside Potassium 3.3 3.3-5.0 mEq/L Bedside Chloride 101 101-112 mEq/L Bedside Total CO2 26 24-31 mEq/l Bedside Blood Urea Nitrogen 25 7-18 mg/dl Bedside Creatinine 2.1 0.6-1.3 mg/dl Bedside Glucose (other) 146 70-99 mg/dl Bedside Ionized Calcium (Danny) 1.04 1.12-1.32 mmol/l Test 03/26/17 20:25 03/26/17 20:50 Range/Units Urine Color YELLOW Urine Appearance CLEAR CLEAR Urine pH 5.5 4.5-7.5 Urine Specific [place] 1.014 1.000-1.030 Urine Protein NEG NEG Urine Glucose (UA) NEG NEG Urine Ketones NEG NEG Urine Occult Blood TRACE NEG Urine Nitrite NEG NEG Urine Bilirubin NEG NEG Urine Urobilinogen NEG NEG Urine Leukocyte Esterase LARGE NEG Urine WBC (Auto) >30 0-5 /hpf Urine RBC (Auto) 0-4 0-4 /hpf Urine Hyaline Casts (Auto) 5-10 0-5 /lpf Urine Epithelial Cells (Auto) 0-5 0-5 /lpf Urine Bacteria (Auto) NEG NEG Urine Yeast (Auto) BUD W/ HYPHAE NONE PRSENT Influenza Type A (RT-PCR) Neg for Influ A NEG Influenza Type A Antigen Neg for Influ A NEG Influenza Type B Antigen Neg for Influ B NEG Influenza Type B (RT-PCR) Neg for Influ B NEG Microbiology Results 03/26/17 Blood Culture, Received Pending 03/26/17 Blood Culture, Received Pending 03/26/17 Urine Culture, Received Pending Diagnostic Radiology CT abdomen: 1. No urinary calculi or hydronephrosis. 2. No acute process within the abdomen or pelvis on unenhanced exam. 3. Extensive colonic diverticulosis without evidence of acute diverticulitis. CXR 1. Progressive hazy airspace opacity within the periphery of the right upper lobe. This may represent a developing pneumonia. 2. Stable linear scarlike density within the left upper lung zone is again noted. EKG Sinus , RBB, LAFB - no significant change Impression Assessment and Plan 86 y/o M w/Hx COPD, CAD, CKD 3-4, aspiration, adrenal insufficiency, recurrent PNM, recurrent UTIs. Currently residing in a nursing facility. Pt has been admitted to the hospital 4 x this yr for pneumonia due to aspiration. He was recently admitted and D/Cd for pnm 03/15. He is receiving PO Linezolid currently. He developed a fever and rigors during the day and was sent to the ER. He denies SOB above baseline, a productive cough, CP, N/V. He describes a sensation of uncontrollable twitching - possibly describing rigors. He also complains of lower abdominal pain which he had complained of during previous admissions and may be chronic. He is on a mechanical soft diet at the [facility] due to confirmed aspiration risk. Initial CXR is consistent with recurrent PNM - acute RUL infiltrate. He has not had increased oxygen requirements and is awake and oriented at the time of admission. 1) Pneumonia - histroy of aspiration and 4 admissions for PNM this year - history of pseudomonas infection - discharged 03/15 following treatment for same - we will treat him for HCAP Placed on Vanc, Zosyn, Levaquin. He was receiveng Linezolid as an outpatient. Sputum cultures, blood cultures, ID consult requested. Duonebs/Albuterol, 02 protocol provided. Pt will be placed on an aspiration diet. It is likely that this will continue to happen and a more permanent solution should be sought with involvement of family and hospice case manager. 3) CKD - 3-4 - creat is slightly above baseline. We have held his AM diuretics and provided gentle hydration overnight. Diastolic CHF is mentioned in the record as is cor pulmole although we do not have echo confirmation. Echo was normal in 2015. He does have chronic edema however and will need frequent volume assessment. 4) COPD - no change in 02 requirements or wheezing on exam - will receive duonebs, PRN Xopenex. Steroids are not indicated at present although he will receive Cortef for adrenal insufficiency. 5) Adrenal insufficiency - will continue fludrocortisone - I do not see Cortef on his current list although he was taking this when I saw him during a recent admission. He had also developed hypotension at the time. We will start him on a low dose BID pending verification with his primary MD AM. 6) CAD - extensive LAD stenting - no evidence of ACS - cont ASA B opal , Statin 7) Abdominal pain - chronic - no abnormalities on CT - would consider referal to GI on discharge or inpt consult if persists. 8) History of DVT - pt is on Coumadin - INR is therapeutic. Full code - Coumadin prophylaxis Total time for this admit including review of labs, meds, EKG, imaging - extensive recent records - discussion with ER attending - pt and 48 min Level of Care Telemetry Resuscitation Status FULL RESUSCITATION VTE Prophylaxis Given or contraindicated: Warfarin (Coumadin)
[2017-03-26] MEDS ORDERED: MAGNESIUM HYDROXIDE SUSP 30 ML UDC PO PRN (23:00)
[2017-03-26] MEDS ORDERED: ONDANSETRON INJ 2 MG/ML 2 ML VIAL IV PRN (23:00)
[2017-03-26] MEDS ORDERED: POLYETHYLENE (MIRALAX) 17 GM PACK PO PRN (23:00)
[2017-03-26] MEDS ORDERED: MoRPHine SULFATE 2 MG/ML CARP IV PRN (23:00)
[2017-03-26] MEDS ORDERED: ACETAMINOPHEN 325 MG TAB PO PRN (23:00)
[2017-03-26] MEDS ORDERED: NITROGLYCERIN 0.4 MG SL PER TAB CHARGE SL PRN ×2 (23:00→23:30)
[2017-03-26] MEDS ORDERED: ALUMINUM/MAGNESIUM/SIMETH (MAALOX MAX) 30 ML UDC PO PRN (23:00)
[2017-03-26] MEDS ORDERED: SIMETHICONE 80 MG CHEW PO PRN (23:30)
[2017-03-27] VITALS (11 sets, daily range): BP systolic 99–130; BP diastolic 57–74; PULSE 69–79; TEMP 36.3–36.8; O2SAT 93–96; Ht 185.4 cm; Wt 102.5 kg
[2017-03-27] MEDS ORDERED: PIPERACILL/TAZOBAC CONSULT ACTIVE PRN (03:00)
[2017-03-27] MEDS ORDERED: LEVOFLOXACIN CONSULT ACTIVE PRN (03:00)
[2017-03-27] MEDS ORDERED: VANCOMYCIN CONSULT ACTIVE PRN (03:00)
[2017-03-27] MEDS: VANCOMYCIN INJ 1,750 MG in SODIUM CHLORIDE 0.9% 500ML 500 ML IV SCH (03:27)
[2017-03-27] MEDS: NSS + 20MEQ KCL 1000ML 1,000 ML IV SCH ×2 (03:27→13:53)
[2017-03-27] MEDS: PIPERACILL/TAZOBAC IV 3.375 GM in DEXTROSE 5% 100ML 100 ML IV SCH ×3 (03:28→18:14)
[2017-03-27] MEDS ORDERED: HYDROCORTISONE 10 MG TAB PO ONE (03:40)
[2017-03-27] MEDS: INSULIN ASPART 100 UNITS/ML 3 ML PEN SC SCH ×4 (07:00→21:00)
[2017-03-27] MEDS: FLUTICASONE/SALMETEROL 250/50 (ADVAIR) 14 PUFF/1 INHALER INH SCH ×2 (07:48→21:24)
[2017-03-27] MEDS: PANTOprazole SOD 40 MG TAB PO SCH (07:49)
[2017-03-27] MEDS: HYDROCORTISONE 10 MG TAB PO SCH ×2 (07:50→21:26)
[2017-03-27] MEDS: FLUDROCORTISONE ACETATE 0.1 MG TAB PO SCH ×2 (07:50→21:26)
[2017-03-27] MEDS: CLOPIDOGREL BISULFATE 75 MG TAB PO SCH (07:51)
[2017-03-27] MEDS: GUAIFENESIN 600 MG TABCR PO SCH ×2 (07:51→21:25)
[2017-03-27] MEDS: MAGNESIUM OXIDE 400 MG TAB PO SCH ×2 (07:52→21:25)
[2017-03-27] MEDS: DOCUSATE SODIUM 100 MG CAP PO SCH ×2 (07:52→21:26)
[2017-03-27] MEDS: POTASSIUM CHLORIDE 20 MEQ TABCR PO SCH ×3 (07:52→21:26)
[2017-03-27] MEDS: DULOXETINE (CYMBALTA) 30 MG CAP PO SCH (07:53)
[2017-03-27] MEDS: GABAPENTIN 800 MG TAB PO SCH ×3 (07:54→21:25)
[2017-03-27] MEDS: ASPIRIN 81 MG CHEW PO SCH (07:55)
[2017-03-27] MEDS: BISACODYL 5 MG TABEC PO SCH ×2 (07:56→21:25)
[2017-03-27] MEDS: LIDODERM (LIDOCAINE) PATCH 5% TD SCH (07:56)
[2017-03-27] MEDS: ARTIFICIAL TEARS OP SOLN OPB SCH ×4 (08:03→21:24)
[2017-03-27] MEDS: OXYCODONE HCL 15 MG TABCR (OXYCONTIN) PO SCH ×2 (08:08→21:25)
[2017-03-27 09:24] LABS: HEMATOCRIT 34.2 % (42-52); MEAN CELL VOLUME 89.3 fL (80-100); MEAN CORPUSCULAR HEMOGLOBIN 27.2 pg (25-34); MEAN CORPUSCULAR HGB CONC 30.4 g/dl (32-36); RED BLOOD COUNT 3.83 M/uL (4.7-6.1); WHITE BLOOD COUNT 4.64 K/uL (4.8-10.8)
[2017-03-27 09:51] LABS: BUN/CREATININE RATIO 12.6 (10-20); CALCIUM 8.6 mg/dl (8.5-10.1); CREATININE 1.8 mg/dl (0.60-1.40); MAGNESIUM 2.5 mg/dl (1.8-2.4); POTASSIUM 4.3 mmol/L (3.5-5.1)
[2017-03-27 09:55] LABS: MEAN PLATELET VOLUME 9.9 fL (7.4-10.4); PLATELET COUNT 94 K/uL (130-400)
[2017-03-27 09:56] LABS: PLT ESTIMATE DECREASED
--- NOTE | 2017-03-27 11:52 | Progress Note ---
Progress Note Date of Service Mar 27, 2017. Progress Note ID Consult Dictated # [id number] A/P: 1. Aspiration Pna -Continue abx ,follow cultures HOB at 30 degrees -Check sputum culture -thank you
--- NOTE | 2017-03-27 12:34 | INFECT. DISEASE CONSULTATION ---
DATE OF CONSULTATION: 03/27/2017 REQUESTING PHYSICIAN: Dr. Gross. HISTORY OF PRESENT ILLNESS: This is an 86-year-old gentleman who was admitted to the hospital from his local nursing facility after he was found to have respiratory distress. He has been hospitalized multiple times in the recent past and treated for aspiration pneumonia. Most recently he was just discharged on the on Zyvox for a sputum culture that grew MRSA. The sputum culture from the also grew Aspergillus. He has not undergone any other workup for this. ID was not consulted during his last admission. He initially had a white blood cell count of 16. This has improved to 12. Blood cultures and urine cultures are pending. Sputum culture was not obtained. A flu swab was negative. A CAT scan of the abdomen and pelvis was also negative. A chest x-ray showed a questionable early opacity in the right upper lobe. Compared to his last x-ray on his last admission, there were resolving bibasilar opacities. His urinalysis had greater than 30 WBCs but no bacteria. He was started empirically on the Levaquin, vancomycin and Zosyn. He is afebrile. White blood cell count of 4.6. Creatinine was mildly elevated but is improving. On my examination, he is resting comfortably and without complaint. He is not coughing. He is on a mechanical soft diet due to known aspiration. PAST MEDICAL HISTORY: Significant for anemia, asthma, COPD, coronary artery disease, CVA, hypertension, hypercholesterolemia, hyperparathyroidism, history of GA, peripheral vascular disease, TIA. PAST SURGICAL HISTORY: Significant for cardiac stenting. FAMILY HISTORY: Noncontributory. SOCIAL HISTORY: Significant for history of tobacco use. He is currently in an assisted living facility. ALLERGIES: He has no known drug allergies. MEDICATIONS: Include Levaquin, Lipitor, Pepcid, Lantus, Urex, Flomax, Lidoderm patch, Coumadin, Cortef, aspirin, atenolol, Dulcolax, Plavix, Colace, Cymbalta, Florinef, Advair, Neurontin, Mucinex, magnesium, oxycodone, potassium, Protonix, vancomycin, Zosyn, Tylenol, milk of magnesia, Maalox, morphine, Zofran and MiraLax. PHYSICAL EXAMINATION: VITAL SIGNS: He is afebrile, pulse 70, respiratory rate is 16, blood pressure is 99/57, oxygen saturation is 96% on room air. GENERAL: He is awake and comfortable. LUNGS: Clear. HEART: Regular. ABDOMEN: Soft. There is no edema. SKIN: Without rash. LABORATORY STUDIES: CBC reveals a white blood cell count of 4.6, hemoglobin 10.4, platelets 94. Chemistry panel reveals sodium of 145, potassium 4.3, chloride 108, bicarb 32, BUN 23, creatinine 1.8, glucose 142. Urinalysis has greater than 30 WBCs but no bacteria. Flu swab is negative. Blood and urine cultures are pending. IMAGING: As above. Aspiration pneumonitis versus pneumonia. He can remain on broad spectrum antibiotics. I would recommend a sputum culture. I would keep the head of the bed at 30 degrees and continue him on aspiration precautions. Thank you for this consultation.
--- NOTE | 2017-03-27 15:31 | Pharmacy Progress Note ---
Pharmacy Antibiotic Consult Date of Service: Mar 27, 2017. Pharmacy Dosing Scope Pharmacy is consulted to initiate vancomycin, Zosyn, and Levaquin IV dosing therapy, order appropriate labs and adjust drug dose/frequency. Subjective The patient is a 86 year old male admitted on Mar 26, 2017 at 22:58. Hx of recurrent aspiration pneumonia, chronic UTI's. Objective Height (Feet): 6 Height (Inches): 1.00 Weight (Kilograms): 100.400 Lab Results (24hrs): Test 03/26/17 19:45 03/26/17 19:54 03/26/17 19:58 03/26/17 20:25 White Blood Count 4.71 K/uL (4.8-10.8) Red Blood Count 4.34 M/uL (4.7-6.1) Hemoglobin 12.1 g/dL (14.0-18.0) Hematocrit 39.1 % (42-52) Mean Corpuscular Volume 90.1 fL (80-100) Mean Corpuscular Hemoglobin 27.9 pg (25-34) Mean Corpuscular Hemoglobin Concent 30.9 g/dl (32-36) Platelet Count 117 K/uL (130-400) Mean Platelet Volume 9.5 fL (7.4-10.4) Neutrophils (%) (Auto) 68.8 % Lymphocytes (%) (Auto) 17.2 % Monocytes (%) (Auto) 11.5 % Eosinophils (%) (Auto) 1.7 % Basophils (%) (Auto) 0.4 % Neutrophils # (Auto) 3.24 K/uL (1.4-6.5) Lymphocytes # (Auto) 0.81 K/uL (1.2-3.4) Monocytes # (Auto) 0.54 K/uL (0.11-0.59) Eosinophils # (Auto) 0.08 K/uL (0-0.5) Basophils # (Auto) 0.02 K/uL (0-0.2) RDW Standard Deviation 61.8 fL (36.4-46.3) RDW Coefficient of Variation 18.9 % (11.5-14.5) Immature Granulocyte % (Auto) 0.4 % Immature Granulocyte # (Auto) 0.02 K/uL (0.00-0.02) Prothrombin Time 25.4 SECONDS (9.0-12.0) Prothromb Time International Ratio 2.3 (0.9-1.1) Activated Partial Thromboplast Time 35.8 SECONDS (21.0-31.0) Partial Thromboplastin Ratio 1.4 Sodium Level 141 mmol/L (136-145) Potassium Level 3.3 mmol/L (3.5-5.1) Chloride Level 103 mmol/L (98-107) Carbon Dioxide Level 27 mmol/L (21-32) Blood Urea Nitrogen 26 mg/dl (7-18) Creatinine 2.00 mg/dl (0.60-1.40) Est Creatinine Clear Calc Drug Dose 33.6 ml/min Estimated GFR () 34.0 Estimated GFR (Non- 29.3 BUN/Creatinine Ratio 12.8 (10-20) Random Glucose 148 mg/dl (70-99) Calcium Level 8.7 mg/dl (8.5-10.1) Total Bilirubin 0.4 mg/dl (0.2-1) Aspartate Amino Transf (AST/SGOT) 21 U/L (15-37) Alanine Aminotransferase (ALT/SGPT) 36 U/L (12-78) Alkaline Phosphatase 81 U/L (45-117) Total Creatine Kinase 240 U/L (39-308) Creatine Kinase MB 3.6 ng/ml (0.5-3.6) Creatine Kinase MB Ratio 1.5 (0-3.0) Troponin I 0.017 ng/ml (0-0.045) Total Protein 7.3 gm/dl (6.4-8.2) Albumin 3.4 gm/dl (3.4-5.0) Globulin 3.9 gm/dl (2.5-4.0) Albumin/Globulin Ratio 0.9 (0.9-2) Bedside Lactic Acid Venous 4.99 mmol/L (0.90-1.70) Bedside Hemoglobin 12.9 g/dl (14.0-18.0) Bedside Hematocrit 38 % (42-52) Bedside Sodium 142 mEq/L (135-144) Bedside Potassium 3.3 mEq/L (3.3-5.0) Bedside Chloride 101 mEq/L (101-112) Bedside Total CO2 26 mEq/l (24-31) Anion Gap 19.0 mmol/L (16-25) Bedside Blood Urea Nitrogen 25 mg/dl (7-18) Bedside Creatinine 2.1 mg/dl (0.6-1.3) Bedside Glucose (other) 146 mg/dl (70-99) Bedside Ionized Calcium (Danny) 1.04 mmol/l (1.12-1.32) Urine Color YELLOW Urine Appearance CLEAR (CLEAR) Urine pH 5.5 (4.5-7.5) Urine Specific [place] 1.014 (1.000-1.030) Urine Protein NEG (NEG) Urine Glucose (UA) NEG (NEG) Urine Ketones NEG (NEG) Urine Occult Blood TRACE (NEG) Urine Nitrite NEG (NEG) Urine Bilirubin NEG (NEG) Urine Urobilinogen NEG (NEG) Urine Leukocyte Esterase LARGE (NEG) Urine WBC (Auto) >30 /hpf (0-5) Urine RBC (Auto) 0-4 /hpf (0-4) Urine Hyaline Casts (Auto) 5-10 /lpf (0-5) Urine Epithelial Cells (Auto) 0-5 /lpf (0-5) Urine Bacteria (Auto) NEG (NEG) Urine Yeast (Auto) BUD W/ HYPHAE (NONE PRSENT) Test 03/26/17 20:50 03/27/17 06:36 03/27/17 09:09 03/27/17 11:22 Influenza Type A (RT-PCR) Neg for Influ A (NEG) Influenza Type A Antigen Neg for Influ A (NEG) Influenza Type B Antigen Neg for Influ B (NEG) Influenza Type B (RT-PCR) Neg for Influ B (NEG) Bedside Glucose 96 mg/dl (70-99) 131 mg/dl (70-99) White Blood Count 4.64 K/uL (4.8-10.8) Red Blood Count 3.83 M/uL (4.7-6.1) Hemoglobin 10.4 g/dL (14.0-18.0) Hematocrit 34.2 % (42-52) Mean Corpuscular Volume 89.3 fL (80-100) Mean Corpuscular Hemoglobin 27.2 pg (25-34) Mean Corpuscular Hemoglobin Concent 30.4 g/dl (32-36) RDW Standard Deviation 60.9 fL (36.4-46.3) RDW Coefficient of Variation 18.7 % (11.5-14.5) Platelet Count 94 K/uL (130-400) Mean Platelet Volume 9.9 fL (7.4-10.4) Nucleated RBC Absolute Count (auto) 0.02 K/uL (0-0) Nucleated Red Blood Cells % 0.4 % Platelet Estimate DECREASED Sodium Level 145 mmol/L (136-145) Potassium Level 4.3 mmol/L (3.5-5.1) Chloride Level 108 mmol/L (98-107) Carbon Dioxide Level 32 mmol/L (21-32) Anion Gap 5.0 mmol/L (3-11) Blood Urea Nitrogen 23 mg/dl (7-18) Creatinine 1.80 mg/dl (0.60-1.40) Est Creatinine Clear Calc Drug Dose 36.7 ml/min Estimated GFR () 38.6 Estimated GFR (Non- 33.3 BUN/Creatinine Ratio 12.6 (10-20) Random Glucose 142 mg/dl (70-99) Calcium Level 8.6 mg/dl (8.5-10.1) Magnesium Level 2.5 mg/dl (1.8-2.4) Renal function slightly better since admission. Micro Results: 03/26 urine pinpoint growth, reincubating 03/26 nasal swab neg MRSA 03/26 blood x2 pending Recent Pertinent Medications Item Value Date Time Levofloxacin 750 150 ml @ 100 mls/hr 03/28/17 2300 mg/Prmx Q48H/IV Vancomycin HCl 535 ml @ 200 mls/hr 03/27/17 0300 1750 mg/Sodium Q24H/IV 03/27/17 0327 Chloride Piperacillin Sod/ 115 ml @ 28.75 mls/hr 03/27/17 0300 Tazobactam Sod Q8H/IV 03/27/17 1123 3.375 gm/Dextrose Piperacillin Sod/ 4.5 gm 03/26/171957 Tazobactam Sod NOW STAT/IV 03/26/172039 (Zosyn Iv) Levofloxacin 750 mg 03/26/171957 (Levaquin / D5W) NOW STAT/IV 03/26/172133 Vancomycin HCl 270 ml @ 125 mls/hr 03/26/171957 1000 mg/Sodium NOW STAT/IV 03/26/172045 Chloride Assessment & Plan Loading dose: vancomycin 1000 mg in ED, then 1750 mg IV X 1 dose (total ~26 mg/ kg) then: vancomycin 1750 mg IV every 24 hours. Goal peak level estimate: between 25-40 mcg/mL. Goal trough level estimate: between 15-20 mcg/mL. Trough has been ordered for: 03/29/17 before 0300 dose. Zosyn 4.5 Gm IV over 30 minutes x1, then Zosyn 4.5 Gm (infused over 4 hr) q8h for CrCl greater than 20 ml/min. Levaquin 750 mg IV x1, then Levaquin 750 mg q48h for CrCl 20-49 ml/min. Pharmacy will continue to follow and will adjust dose/frequency as necessary. Thank you
[2017-03-27] MEDS: WARFARIN SOD 3 MG TAB PO SCH (16:03)
--- NOTE | 2017-03-27 17:48 | DIAGNOSTIC IMAGING REPORT ---
CHEST 2 VIEWS ROUTINE CLINICAL HISTORY: ?RUL pneumonia? COMPARISON STUDY: 03/26/2017 FINDINGS: The bones soft tissues and hemidiaphragms are normal. The cardiomediastinal silhouette is normal. The lungs are clear. The pulmonary vasculature is normal. IMPRESSION: No acute process. Lungs are now considered clear The above report was generated using voice recognition software. It may contain grammatical, syntax or spelling errors. Electronically signed by: Jaun Kim M.D. 03/27/2017 5:47 PM Dictated Date/Time: 03/27/2017 5:46 PM
[2017-03-27] MEDS ORDERED: METHENAMINE HIPPURATE 1 GM TAB PO SCH (21:00)
[2017-03-27] MEDS ORDERED: ATORVASTATIN 20 MG TAB PO SCH (21:00)
[2017-03-27] MEDS ORDERED: FAMOTIDINE 20 MG TAB PO SCH (21:00)
[2017-03-27] MEDS ORDERED: TAMSULOSIN HCL 0.4 MG CAP PO SCH (21:00)
[2017-03-27] MEDS ORDERED: INSULIN GLARGINE SOLOSTAR 100 UNITS/ML 3 ML PEN SQ SCH (21:00)
[2017-03-28] VITALS (7 sets, daily range): BP systolic 106–151; BP diastolic 65–83; PULSE 69–77; TEMP 36.5–36.9; O2SAT 93–97
--- NOTE | 2017-03-28 00:24 | Progress Note ---
Subjective Date of Service: Mar 27, 2017. Subjective Pt evaluation today including: conversation w/ patient, conversation w/ family ( at bedside), physical exam, chart review, lab review, review of studies ( CT, x-rays), review of inpatient medication list Pain: denies PO Intake: fairly normal Voiding: gomez catheter in place tele stable since admission denies any significant cough or dyspnea the severe tremors that brought him to the hospital resolved while in the ER he feels good today no new complaints Problem List Medical Problems: (1) Acute on chronic renal failure Status: Acute (2) Confusion Status: Acute (3) Fever Status: Acute (4) Hypoglycemia Status: Acute (5) Hypoxia Status: Acute (6) Hypoxia Status: Acute (7) Influenza A Status: Acute (8) Malfunction of Gomez catheter Status: Acute (9) Pneumonia Status: Acute (10) Reactive airway disease Status: Acute (11) Respiratory distress Status: Acute Review of Systems Constitutional: No fever, No chills Respiratory: No cough Cardiac: No chest pain Abdomen: No pain Objective Vital Signs Date Time Temp Pulse Resp B/P (MAP) Pulse Ox O2 Delivery O2 Flow Rate FiO2 03/27/17 19:08 36.8 79 16 122/72 (89) 93 Room Air 03/27/17 16:00 96 Room Air 03/27/17 15:10 36.3 73 18 128/73 (91) 96 Room Air 03/27/17 12:00 96 Room Air 03/27/17 11:30 36.6 69 16 111/67 (82) 93 Room Air 03/27/17 09:48 Room Air 03/27/17 08:00 96 Room Air 03/27/17 07:50 36.5 70 16 99/57 (71) 96 03/27/17 04:00 95 Room Air 03/27/17 03:37 36.7 69 22 130/74 (92) 95 Room Air 03/27/17 01:50 36.8 76 24 126/71 94 Room Air 03/27/17 01:42 76 20 96 03/27/17 00:58 67 20 96/52 96 Room Air 03/26/17 23:30 37.0 03/26/17 23:00 76 20 123/63 96 Room Air 03/26/17 22:41 76 Physical Exam General Appearance: no apparent distress ENT: pharynx normal Neck: no JVD Respiratory/Chest: no respiratory distress, no accessory muscle use, + wheezing (scant end-exp wheeze) Cardiovascular: regular rate, rhythm, no gallop Abdomen: normal bowel sounds, non tender, soft, no organomegaly Extremities: no pedal edema 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: alert, oriented x 3 Laboratory Results Last 24 Hours Test 03/27/17 06:36 03/27/17 09:09 03/27/17 11:22 03/27/17 16:20 Bedside Glucose 96 mg/dl 131 mg/dl 159 mg/dl White Blood Count 4.64 K/uL Red Blood Count 3.83 M/uL Hemoglobin 10.4 g/dL Hematocrit 34.2 % Mean Corpuscular Volume 89.3 fL Mean Corpuscular Hemoglobin 27.2 pg Mean Corpuscular Hemoglobin Concent 30.4 g/dl RDW Standard Deviation 60.9 fL RDW Coefficient of Variation 18.7 % Platelet Count 94 K/uL Mean Platelet Volume 9.9 fL Nucleated RBC Absolute Count (auto) 0.02 K/uL Nucleated Red Blood Cells % 0.4 % Platelet Estimate DECREASED Sodium Level 145 mmol/L Potassium Level 4.3 mmol/L Chloride Level 108 mmol/L Carbon Dioxide Level 32 mmol/L Anion Gap 5.0 mmol/L Blood Urea Nitrogen 23 mg/dl Creatinine 1.80 mg/dl Est Creatinine Clear Calc Drug Dose 36.7 ml/min Estimated GFR () 38.6 Estimated GFR (Non- 33.3 BUN/Creatinine Ratio 12.6 Random Glucose 142 mg/dl Calcium Level 8.6 mg/dl Magnesium Level 2.5 mg/dl Test 03/27/17 20:16 Bedside Glucose 188 mg/dl Assessment and Plan 86yo male - 1. ?new RUL pneumonia - in comparison to the last time I saw him in the hospital on his previous admission his lungs sound dramatically better. He has no pulmonary complaints and appetite is fairly good. Repeat 2-view cxr to see if the RUL finding on portable cxr was real. Reasonable to continue abx in the meantime. 2. ?UTI - culture pending. 3. adrenal insufficiency - has been on cortef and florinef for several years. Continue. 4. COPD with recent exacerbation - resolved. Cont nebs/inhalers. 5. recent MRSA pneumonia - clinically resolved. 6. 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 Office notes reviewed from 03/26/17 - seen by Dr. Meir Whiteside, pulmonary. Since patient had been doing better no plans to treat this fungus at this time. 7. dysphagia / aspiration risk - continue current modified diet. 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 d/c fluids. 9. CAD with prior stents - continue asa, beta opal, statin. 10. mild pancytopenia - the leukopenia and thrombocytopenia are relatively new. Repeat CBC in am for stability. Check TSH in am. Check b12/folate in am. 11. h/o DVT - continue coumadin, INR is therapeutic. 12. severe tremors - cause?? was it truly rigors? other? electrolytes stable. check TSH in am. follow. 13. chronic gomez usage, due to BPH - continue current gomez, flomax, etc 14. T2DM - control adequate with current insulin regimen. dispo - the [facility]? Continued [facility] stay due to: multiple IV medications needed Discharge planning: residential facility
[2017-03-28] MEDS: VANCOMYCIN INJ 1,750 MG in SODIUM CHLORIDE 0.9% 500ML 500 ML IV SCH (02:17)
[2017-03-28] MEDS: PIPERACILL/TAZOBAC IV 3.375 GM in DEXTROSE 5% 100ML 100 ML IV SCH ×2 (05:22→10:51)
[2017-03-28 06:41] LABS: HEMATOCRIT 35.5 % (42-52); MEAN CELL VOLUME 91.7 fL (80-100); MEAN CORPUSCULAR HEMOGLOBIN 26.9 pg (25-34); MEAN CORPUSCULAR HGB CONC 29.3 g/dl (32-36); RED BLOOD COUNT 3.87 M/uL (4.7-6.1); WHITE BLOOD COUNT 3.53 K/uL (4.8-10.8)
[2017-03-28 06:49] LABS: MEAN PLATELET VOLUME 9.5 fL (7.4-10.4); PLATELET COUNT 91 K/uL (130-400)
[2017-03-28 06:59] LABS: INR 1.9 (0.9-1.1); PROTHROMBIN TIME (PATIENT) 21.3 SECONDS (9.0-12.0)
[2017-03-28 07:06] LABS: ANISOCYTOSIS PRESENT; BASO % 0.3 %; BASO ABS # 0.01 K/uL (0-0.2); COMPLETE YES; EOS % 2.8 %; LYMPH % 15.9 %; LYMPH ABS # 0.56 K/uL (1.2-3.4); MONO % 10.2 %; NEUT % 70.8 %
[2017-03-28 07:12] LABS: BUN/CREATININE RATIO 12.2 (10-20); CALCIUM 8.3 mg/dl (8.5-10.1); CREATININE 1.5 mg/dl (0.60-1.40); POTASSIUM 3.6 mmol/L (3.5-5.1)
[2017-03-28 07:20] LABS: THYROID STIMULATING HORMONE 1.22 uIu/ml (0.300-4.500)
[2017-03-28] MEDS: ARTIFICIAL TEARS OP SOLN OPB SCH ×2 (08:44)
[2017-03-28] MEDS: FLUTICASONE/SALMETEROL 250/50 (ADVAIR) 14 PUFF/1 INHALER INH SCH (08:44)
[2017-03-28] MEDS: ASPIRIN 81 MG CHEW PO SCH (08:46)
[2017-03-28] MEDS: HYDROCORTISONE 10 MG TAB PO SCH (08:47)
[2017-03-28] MEDS: DULOXETINE (CYMBALTA) 30 MG CAP PO SCH (08:48)
[2017-03-28] MEDS: CLOPIDOGREL BISULFATE 75 MG TAB PO SCH (08:49)
[2017-03-28] MEDS: MAGNESIUM OXIDE 400 MG TAB PO SCH (08:50)
[2017-03-28] MEDS: POTASSIUM CHLORIDE 20 MEQ TABCR PO SCH ×2 (08:52→14:07)
[2017-03-28] MEDS: GABAPENTIN 800 MG TAB PO SCH ×2 (08:52→14:06)
[2017-03-28] MEDS: GUAIFENESIN 600 MG TABCR PO SCH (08:52)
[2017-03-28] MEDS: PANTOprazole SOD 40 MG TAB PO SCH (08:52)
[2017-03-28] MEDS: FLUDROCORTISONE ACETATE 0.1 MG TAB PO SCH (08:53)
[2017-03-28] MEDS: INSULIN ASPART 100 UNITS/ML 3 ML PEN SC SCH ×3 (08:55→16:15)
[2017-03-28] MEDS ORDERED: DUTASTERIDE 0.5MG PO SCH ×2 (09:00)
[2017-03-28] MEDS: LIDODERM (LIDOCAINE) PATCH 5% TD SCH (09:01)
[2017-03-28] MEDS: BISACODYL 5 MG TABEC PO SCH (09:01)
[2017-03-28] MEDS: OXYCODONE HCL 15 MG TABCR (OXYCONTIN) PO SCH (09:01)
--- NOTE | 2017-03-28 10:07 | Clinical Documentation Query ---
NICK Ceballos : CLINICAL DOCUMENTATION QUERY Patient is an 86 year old male admitted for evaluation and treatment of pneumonia. H&P notes 4 admissions already this year for aspiration pneumonia. Most recent sputum culture grew MRSA. Progress notes question RUL pneumonia at all. CT of the chest pending. When able, consider clarification as suggested below as clinically appropriate. Thank you. In your clinical opinion is this patient being managed for: ( ) Aspiration pneumonia or pneumonitis ( ) Not Agree ( ) Other explanation of clinical findings (Please Explain) ( ) Unable to determine (Please Define) ( ) Need to Discuss The medical record reflects the following clinical findings, treatment, and risk factors. Clinical Indicators: As above Treatment: Levaquin, Vanco, Zosyn Risk Factors: Age, history of aspiration pneumonia, longterm residence. Please clarify and document your clinical opinion in the progress notes and discharge summary. Terms such as "probable", "suspected", "likely", "questionable", "possible", or "still to be ruled out" are acceptable. IF IN AGREEMENT, YOU MUST DOCUMENT ABOVE DIAGNOSTIC STATEMENT IN DAILY PROGRESS NOTES AND DISCHARGE SUMMARY. This document is not part of the patient's record. Thank You, Antonio Torres, GUERDA [phone]
[2017-03-28] MEDS: DOCUSATE SODIUM 100 MG CAP PO SCH (11:40)
--- NOTE | 2017-03-28 13:29 | DIAGNOSTIC IMAGING REPORT ---
(CHEST) THORAX WITHOUT CT DOSE: 623.04 mGy.cm HISTORY: Pulmonary nodules eval nodules, pneumonia, etc TECHNIQUE: Multiaxial CT images of the chest were performed without contrast. A dose lowering technique was utilized adhering to the principles of ALARA. COMPARISON: 12/27/2016 FINDINGS: Multifocal nodularity with considerable variability compared to the prior exam is noted. The 2 cm irregular nodule superior segment left lower lobe is diminished in volume. Maximum dimension currently is 1.5 cm diminished from the prior exam of 2.0 cm. There is been mild interval increase in irregular nodule superior segment right lower lobe having a maximum current dimensions of 2. Cm increased from a prior dimension of 1.1 cm. Linear chronic scarring left pulmonary apex with apical pleural thickening bilaterally is considered chronic and stable. Baseline emphysematous changes unchanged. There is trace amount pleural fluid bilaterally unchanged. No significant hilar or mediastinal adenopathy. Moderate atherosclerotic change thoracic aorta. Calcification of the coronary arterial vasculature. IMPRESSION: Waxing and waning pulmonary nodularity with continued follow-up at a 4-6 month follow-up recommended. Baseline emphysematous changes unaltered. The above report was generated using voice recognition software. It may contain grammatical, syntax or spelling errors. Electronically signed by: Jaun Kim M.D. 03/28/2017 1:28 PM Dictated Date/Time: 03/28/2017 1:20 PM
--- NOTE | 2017-03-28 13:31 | Progress Note ---
Subjective Date of Service: Mar 28, 2017. Subjective no overnight events, remains on multiple abx, repeat cxr without infiltrate, ct chest pending. tolerating abx remains afebrile. sputum specimen rejected. wbc nml. Problem List Medical Problems: (1) Acute on chronic renal failure Status: Acute (2) Confusion Status: Acute (3) Fever Status: Acute (4) Hypoglycemia Status: Acute (5) Hypoxia Status: Acute (6) Hypoxia Status: Acute (7) Influenza A Status: Acute (8) Malfunction of Ball catheter Status: Acute (9) Pneumonia Status: Acute (10) Reactive airway disease Status: Acute (11) Respiratory distress Status: Acute Objective Vital Signs Date Time Temp Pulse Resp B/P (MAP) Pulse Ox O2 Delivery O2 Flow Rate FiO2 03/28/17 11:50 36.6 77 19 106/69 (81) 93 Room Air 03/28/17 07:36 36.9 76 21 151/83 (105) 93 Room Air 03/28/17 04:25 Room Air 03/28/17 02:40 36.7 71 18 111/66 (81) 95 Room Air 03/28/17 00:01 Room Air 03/27/17 23:54 36.4 77 17 122/70 (87) 94 Room Air 03/27/17 20:45 Room Air 03/27/17 19:08 36.8 79 16 122/72 (89) 93 Room Air 03/27/17 16:00 96 Room Air 03/27/17 15:10 36.3 73 18 128/73 (91) 96 Room Air Laboratory Results Item Value Date Time Gram Stain - Final Complete 03/14/17 0000 Sputum Expectorated Sputum Blood Culture - Preliminary Resulted 03/26/17 1945 Blood NO GROWTH TO DATE. Gram Stain - Final Complete 03/27/17 1510 Sputum Expectorated Sputum Last 24 Hours Test 03/27/17 16:20 03/27/17 20:16 03/28/17 05:57 03/28/17 06:13 Bedside Glucose 159 mg/dl 188 mg/dl 178 mg/dl White Blood Count 3.53 K/uL Red Blood Count 3.87 M/uL Hemoglobin 10.4 g/dL Hematocrit 35.5 % Mean Corpuscular Volume 91.7 fL Mean Corpuscular Hemoglobin 26.9 pg Mean Corpuscular Hemoglobin Concent 29.3 g/dl Platelet Count 91 K/uL Mean Platelet Volume 9.5 fL Neutrophils (%) (Auto) 70.8 % Lymphocytes (%) (Auto) 15.9 % Monocytes (%) (Auto) 10.2 % Eosinophils (%) (Auto) 2.8 % Basophils (%) (Auto) 0.3 % Neutrophils # (Auto) 2.50 K/uL Lymphocytes # (Auto) 0.56 K/uL Monocytes # (Auto) 0.36 K/uL Eosinophils # (Auto) 0.10 K/uL Basophils # (Auto) 0.01 K/uL RDW Standard Deviation 62.2 fL RDW Coefficient of Variation 18.8 % Immature Granulocyte % (Auto) 0.0 % Immature Granulocyte # (Auto) 0.00 K/uL Anisocytosis PRESENT Prothrombin Time 21.3 SECONDS Prothromb Time International Ratio 1.9 Sodium Level 144 mmol/L Potassium Level 3.6 mmol/L Chloride Level 111 mmol/L Carbon Dioxide Level 29 mmol/L Anion Gap 4.0 mmol/L Blood Urea Nitrogen 18 mg/dl Creatinine 1.50 mg/dl Est Creatinine Clear Calc Drug Dose 44.5 ml/min Estimated GFR () 48.2 Estimated GFR (Non- 41.6 BUN/Creatinine Ratio 12.2 Random Glucose 88 mg/dl Calcium Level 8.3 mg/dl Vitamin B12 Level 322 pg/mL Folate > 24.00 ng/mL Thyroid Stimulating Hormone (TSH) 1.220 uIu/ml Test 03/28/17 11:41 Bedside Glucose 143 mg/dl Assessment and Plan (1) Aspiration pneumonia Assessment & Plan: pna vs pneumonitis. can continue abx for now, follow ct results, if negative would follow off of abx. hob at 30 degrees with recurrent aspiration Continued [facility] stay due to: multiple IV medications needed Discharge planning: group home facility
[2017-03-28] MEDS: WARFARIN SOD 3 MG TAB PO SCH (16:06)
[2017-03-28] MEDS ORDERED: CYAN10005 PO ×2 (16:37)
[2017-03-28] MEDS ORDERED: MCRK20 PO ×2 (16:37)
[2017-03-28] MEDS ORDERED: OXYSR15 PO ×2 (16:37)
[2017-03-28] MEDS ORDERED: HYD10 PO (16:37)
[2017-03-28] MEDS ORDERED: HYDR20TA PO ×2 (16:53)
--- NOTE | 2017-03-28 17:09 | Discharge Instructions ---
Discharge Instructions Date of Service Mar 28, 2017. Admission Reason for Admission: Severe Tremors Discharge Discharge Diagnosis / Problem: Tremors - resolved, uncertain cause. NO EVIDENCE OF PNEUMONIA. Discharge Goals Goal(s): Learn about illness, Diagnostic testing, Therapeutic intervention Activity Recommendations Activity Level: Assistance Required Therapies: Physical Therapy, Occupational Therapy . 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 Santoro - 1. Tremors / shakes - * we never found the exact cause of your tremors * they did not recur while hospitalized * your electrolytes, thyroid function, and other tests that can typically cause tremors were normal 2. We did NOT find evidence of pneumonia. Your CAT scan of the lungs did NOT show pneumonia. You have 2 nodules in the lungs that Dr. Whiteside has been following. One of them is modestly smaller, and the other is modestly larger. I spoke with Dr. Whiteside and he is aware of your CAT scan results. 3. We changed your gomez today, 03/28/17. 4. Your blood cultures were negative while hospitalized. 5. You had evidence of yeast infection in your urine. This will be treated with 7 days of diflucan. 6. Your white blood cell count and your platelet count were modestly low while hospitalized. The exact cause of this is uncertain. Certain viral infections can cause this. Several viral tests were sent as a precautionary measure. 7. Follow-up - * see Dr. Whiteside from pulmonary within 2 weeks * see medical economics consultant of the [facility] within 2 days Current Hospital Diet Patient's current hospital diet: AHA Diet (Heart Healthy), Diabetes Type 2 Diet Discharge Diet Recommended Diet: AHA Diet (Heart Healthy), Diabetes Type 2 Diet Diet Texture: Mechanical Soft (ground) Liquid Consistency: [place] Thick Procedures Procedures Performed: CAT scan of lungs - FINDINGS: Multifocal nodularity with considerable variability compared to the prior exam is noted. The 2 cm irregular nodule superior segment left lower lobe is diminished in volume. Maximum dimension currently is 1.5 cm diminished from the prior exam of 2.0 cm. There is been mild interval increase in irregular nodule superior segment right lower lobe having a maximum current dimensions of 2. Cm increased from a prior dimension of 1.1 cm. CAT scan of abdoment and pelvis - normal. CAT scan of facial structures - no fractures. Pending Studies Studies pending at discharge: yes List of pending studies: CMV, EBV, parvovirus titers Physician Orders On Transfer Special Precautions: contact due to MRSA carriage aspiration precautions Vital Signs: per routine blood sugar checks before meals and at bedtime Weigh: every day in the morning on standing scale report to medical economics consultant any weight gain of more than 2-3 pounds in 1-2 days Additional Orders: repeat CBC and BMP in 2 days for stability report results to medical economics consultant repeat INR in 2 days; INR goal 2-3; please report the INR to medical economics consultant POLST Discussion: Not Applicable Laboratory Results Hemoglobin A1c Test 01/22/17 07:24 Range/Units Estimated Average Glucose 206 mg/dl Hemoglobin A1c 8.8 H 4.5-5.6 % Medical Emergencies . Who to Call and When: Medical Emergencies: If at any time you feel your situation is an emergency, please call 911 immediately. . Non-Emergent Contact Non-Emergency issues call your: Primary Care Provider Call Non-Emergent contact if: temperature is above 100.5, you have any medication questions . . "Provider Documentation" section prepared by Nima Santoro. . Core Measure Problem Core Measures: None
[2017-03-28] MEDS ORDERED: FLUC100T4 PO ×2 (17:10)
[2017-03-28 17:38] LABS: HEMATOCRIT 35.8 % (42-52); MEAN CELL VOLUME 91.8 fL (80-100); MEAN CORPUSCULAR HEMOGLOBIN 27.7 pg (25-34); MEAN CORPUSCULAR HGB CONC 30.2 g/dl (32-36); WHITE BLOOD COUNT 4.76 K/uL (4.8-10.8)
[2017-03-28 18:03] LABS: BASO % 0.2 %; BASO ABS # 0.01 K/uL (0-0.2); COMPLETE YES; EOS % 2.7 %; IG% 0.2 %; LYMPH % 20.6 %; LYMPH ABS # 0.98 K/uL (1.2-3.4); MEAN PLATELET VOLUME 9.5 fL (7.4-10.4); MONO % 14.3 %; PLATELET COUNT 89 K/uL (130-400)
[2017-03-28] MEDS ORDERED: LEVOFLOXACIN / D5W 750 MG in PREMIXED IN D5W 150 ML IV SCH ×2 (23:00)
[2017-03-29] MEDS ORDERED: VANCOMYCIN TROUGH SCH (02:30)
[2017-04-01 06:35] LABS: PARVOVIRUS IgG INDEX 0.2 (<0.9); PARVOVIRUS IgM INDEX 0.1 (<0.9)
== END 2017-03-28 18:30 | DRG 178 ==
LOC: EDBD 18:56 → C.EDC 18:57 → C.2T 22:58 → ENRESERV 03-27 01:30
PROVIDERS: ADMIT Internal Medicine; ATTEND Internal Medicine
DX: J69.0 Pneumonitis due to inhalation of food and vomit (principal); N18.4 Chronic kidney disease, stage 4 (severe); E27.40 Unspecified adrenocortical insufficiency; D61.818 Other pancytopenia; J44.9 Chronic obstructive pulmonary disease, unspecified; I25.10 Atherosclerotic heart disease of native coronary artery without angina pectoris; Z87.440 Personal history of urinary (tract) infections; Z82.49 Family history of ischemic heart disease and other diseases of the circulatory system; Z87.891 Personal history of nicotine dependence; Z79.82 Long term (current) use of aspirin; Z79.02 Long term (current) use of antithrombotics/antiplatelets; Z79.4 Long term (current) use of insulin; Z79.01 Long term (current) use of anticoagulants

== ENCOUNTER → 2017-04-01 | Outpatient (CLI) | payer OTHER ==
[~2017-04-01] MED LIST changes: +ADVIN25/60 INH; +CYAN10005 PO; +CYAN1TAB18 PO; +DULO60CA44 PO; +FLUC100T4 PO; +FLUD0.1T10 PO; +HYD10 PO; +HYDR20TA PO; +HYDR20TA3 PO; +METO2.5T PO; +OXYC15TA89 PO; +WARF2TAB PO; +WARF3TAB6 PO
[2017-04-01 10:50] LABS: HEMATOCRIT 36.2 % (42-52); MEAN CELL VOLUME 90.7 fL (80-100); MEAN CORPUSCULAR HEMOGLOBIN 27.1 pg (25-34); MEAN CORPUSCULAR HGB CONC 29.8 g/dl (32-36); MEAN PLATELET VOLUME 11.1 fL (7.4-10.4); PLATELET COUNT 135 K/uL (130-400); RED BLOOD COUNT 3.99 M/uL (4.7-6.1)
[2017-04-01 10:59] LABS: BLOOD UREA NITROGEN 25 mg/dl (7-18); BUN/CREATININE RATIO 11.5 (10-20); CALCIUM 9.1 mg/dl (8.5-10.1); CARBON DIOXIDE 32 mmol/L (21-32); CHLORIDE 99 mmol/L (98-107); GLUCOSE 82 mg/dl (70-99); POTASSIUM 3.1 mmol/L (3.5-5.1); SODIUM 142 mmol/L (136-145)
[2017-04-01 11:06] LABS: PROTHROMBIN TIME (PATIENT) 46.2 SECONDS (9.0-12.0)
[2017-04-01 11:08] LABS: INR 4.1 (0.9-1.1)
== END | disposition home or self-care (01) ==
LOC: C.LABVPSUA 10:09
PROVIDERS: ATTEND Internal Medicine Critical Care Medicine
DX: N18.9 Chronic kidney disease, unspecified (principal); I82.409 Acute embolism and thrombosis of unspecified deep veins of unspecified lower extremity

== ENCOUNTER → 2017-04-03 | Outpatient (CLI) | payer OTHER ==
[~2017-04-03] MED LIST changes: -ATV5X PO; -HYD10 PO; -LINE1TAB6 PO; -PRED10TA PO; -PRED20TA PO; -WARF2.5T8 PO
[2017-04-03 10:21] LABS: PROTHROMBIN TIME (PATIENT) 54.4 SECONDS (9.0-12.0)
[2017-04-03 10:22] LABS: INR 4.8 (0.9-1.1)
== END ==
LOC: C.LABVPSUA 08:58
PROVIDERS: ATTEND Internal Medicine Critical Care Medicine
DX: I82.409 Acute embolism and thrombosis of unspecified deep veins of unspecified lower extremity (principal)

== ENCOUNTER → 2017-04-05 | Outpatient (CLI) | payer OTHER ==
[2017-04-05 09:27] LABS: INR 2.3 (0.9-1.1)
== END ==
LOC: C.LABVPSUA 08:43
PROVIDERS: ATTEND Internal Medicine Critical Care Medicine
DX: I82.409 Acute embolism and thrombosis of unspecified deep veins of unspecified lower extremity (principal)

== ENCOUNTER → 2017-04-09 | Outpatient (CLI) | payer OTHER ==
[~2017-04-09] MED LIST changes: -FLUC100T4 PO
[2017-04-09 09:37] LABS: PROTHROMBIN TIME (PATIENT) 33.5 SECONDS (9.0-12.0)
== END | disposition home or self-care (01) ==
LOC: C.LABVPSUA 09:07
PROVIDERS: ATTEND Internal Medicine Critical Care Medicine
DX: I82.409 Acute embolism and thrombosis of unspecified deep veins of unspecified lower extremity (principal)

== ENCOUNTER 2017-04-16 07:36 | Inpatient (IN) | payer OTHER ==
[2017-04-16] VITALS (11 sets, daily range): BP systolic 94–132; BP diastolic 61–78; PULSE 80–91; TEMP 36.3–36.8; O2SAT 95–100; Ht 185.4 cm; Wt 105.9 kg
[~2017-04-16] VITALS: Ht 185.4 cm; Wt 105.9 kg
[~2017-04-16 07:36] MED LIST changes: -ADVIN25/60 INH; -CYAN1TAB18 PO; -DULO60CA44 PO; -FLUD0.1T10 PO; -HYDR20TA3 PO; -METO2.5T PO; -OXYC15TA89 PO; -WARF2TAB PO
[2017-04-16] MEDS ORDERED: SODIUM CHLORIDE 0.9% 1000ML 250 ML IV STA (07:57)
[2017-04-16] MEDS ORDERED: ONDANSETRON INJ 2 MG/ML 2 ML VIAL IV STA (07:57)
--- NOTE | 2017-04-16 08:05 | EMERGENCY ROOM VISIT NOTE ---
History Report prepared by Hood: Marybel Man Under the Supervision of: Dr. Terry Vallejo M.D. First contact with patient: 07:47 Stated Complaint: ABDOMINAL PAIN/LETHARGIC History of Present Illness The patient is an 86 year old male who presents to the Emergency Room with complaints of persistent rectal bleeding that began one day ago. The patient reports that over the past day he has had 2 bowel movements that are bloody. He states that two days ago he had experienced hematuria. The patient reports abdominal pain and nausea today. He denies any vomiting. The patient states that he has a history of a previous GI bleed 1-2 years ago. He states that he was on Coumadin at that time. The patient states that the GI bleeding stopped on it's own in the past. Per records, patient is a DNR. He denies any recent hard bowel movements. Source of History: patient Onset: one day ago Position: other (rectal) Quality: other (bleeding) Timing: other (persistent) Associated Symptoms: + nausea, + abdominal pain, + hematochezia, No vomiting Review of Systems See HPI for pertinent positives & negatives. A total of 10 systems reviewed and were otherwise negative. Past Medical & Surgical Medical Problems: (1) Acute on chronic respiratory failure with hypoxia and hypercapnia (2) Acute renal failure (3) Anemia (4) Aspiration pneumonia (5) Asthma (6) chronic kidney disease (7) COPD (chronic obstructive pulmonary disease) (8) Coronary artery disease (9) CVA (cerebrovascular accident) (10) Essential hypertension (11) HTN (hypertension) (12) Hx of diabetes mellitus (13) Hypercholesterolemia (14) Hyperparathyroidism (15) Hypotension (16) Influenza A (17) Lower GI bleed (18) Lung nodules (19) PR (myocardial infarction) (20) Peripheral vascular disease (21) Staphylococcus aureus pneumonia (22) TIA (transient ischemic attack) (23) Urinary retention (24) Urosepsis Surgical Problems: (1) H/O heart artery stent Family History FH: heart disease Hypertension Social History Smoking Status: Former Smoker Alcohol Use: occasionally Drug Use: none Marital Status: Housing Status: assisted living Occupation Status: retired Current/Historical Medications Scheduled Acetaminophen (Tylenol), 1,000 MG PO Q12 Aspirin (Aspirin Chewable), 81 MG PO DAILY Atenolol (Tenormin), 12.5 MG PO DAILY Atorvastatin (Atorvastatin Calcium), 20 MG PO HS Bisacodyl (Bisacodyl), 5 MG PO BID Ciclopirox (Ciclodan), 1 APPLN TOP QPM Clopidogrel (Plavix), 75 MG PO DAILY Cyanocobalamin (B-12), 1,000 MCG PO QAM Docusate Sodium (Colace), 100 MG PO BID Duloxetine Hcl (Cymbalta), 60 MG PO QAM Dutasteride (Dutasteride), 0.5 MG PO DAILY Famotidine (Famotidine), 20 MG PO HS Fiber Laxative (Fiber Laxative), 1 TAB PO DAILY Fludrocortisone Acetate (Florinef), 0.1 MG PO BID Fluticasone Prop/Salmeterol (Advair Diskus 250/50 60 Dose), 1 PUFF INH BID Fluticasone Propionate (Fluticasone Propionate), 2 SPRAYS NA DAILY Gabapentin (Gabapentin), 800 MG PO TID Guaifenesin Ext Rel (Mucinex Ext Rel), 1,200 MG PO Q12 Home O2 Therapy (Oxygen), 1 LITER NA PRN Hydrocortisone (Cortef), 40 MG PO BID Insulin Aspart 70/30 (Novolog Mix 70/30), 5 UNITS SQ QPM Insulin Aspart Protamine & Asp (Novolog Mix 70/30), 20 UNITS SQ QAM Insulin Glargine (Lantus), 55 UNIT SQ HS Ipratropium-Albuterol (Combivent Respimat), 1 PUFF INH QID Lidocaine (Lidocaine), 1 PATCH TD QAM Magnesium Oxide (Mag-Ox), 400 MG PO BID Methenamine Hippurate (Methenamine Hippurate), 1 GM PO HS Multiple Vitamins W/ Minerals (Therems M), 1 TAB PO DAILY Omeprazole (Prilosec), 20 MG PO DAILY Oxycodone Hcl (Oxycontin), 15 MG PO Q12 Polyethylene Glycol 3350 (Miralax), 17 GM PO BID Polyethylene Glycol-Propylene (Systane Ultra), 1 DROPS OPB BID Tamsulosin Hcl (Flomax), 0.4 MG PO HS Torsemide (Torsemide), 60 MG PO QAM Warfarin Sodium (Coumadin), 2 MG PO HS Scheduled PRN Levalbuterol (Levalbuterol HCl), 1 VIAL NEB Q4 PRN for Wheezing Metolazone (Zaroxolyn), 2.5 MG PO DAILY PRN for WEIGHT GAIN Nitroglycerin (Nitrostat), 1 TAB SL UD PRN for Chest Pain Simethicone (Gas-X), 80 MG PO QID PRN for Indigestion Trolamine Salicylate (Aspercreme), 1 APPLN TOP BID PRN for ARTHRITIS PAIN Allergies Coded Allergies: No Known Allergies (Unverified , 04/16/17) Physical Exam Vital Signs Date Time Temp Pulse Resp B/P (MAP) Pulse Ox O2 Delivery O2 Flow Rate FiO2 04/16/17 11:56 36.6 88 18 110/78 96 04/16/17 11:41 04/16/17 11:38 36.8 88 17 132/77 95 04/16/17 11:28 98 04/16/17 11:22 92 18 94/58 95 Room Air 04/16/17 11:21 95 Room Air 04/16/17 09:43 95 18 113/68 96 Room Air 04/16/17 09:07 90 16 103/64 96 Room Air 04/16/17 08:17 90 04/16/17 08:15 84 16 74/42 94 Room Air 04/16/17 07:49 36.8 82 18 112/65 96 Room Air Physical Exam GENERAL: Patient is in no acute distress. HEENT: No acute trauma, normocephalic atraumatic, mucous membranes dry, no nasal congestion, no scleral icterus. NECK: No stridor, no adenopathy, no meningismus, trachea is midline. LUNGS: Clear to auscultation bilaterally, no wheeze, no rhonchi, breath sounds equal. HEART: Without murmurs gallops or rubs, regular rate and rhythm. Heart tones are distant. ABDOMEN: Soft, diffusely tender to the lower abdomen bilaterally, bowel sounds positive, no hernias, no peritonitis. RECTAL: Dark red blood noted, no external source for bleeding, digital exam reveals no mass, heme positive stool. EXTREMITIES: No cyanosis or edema, full range of motion of all the joints without pain or difficulty, no signs for acute trauma. NEUROLOGIC: Oriented x 3, no acute motor or sensory deficits, no focal weakness. SKIN: No rash, no jaundice, no diaphoresis. Medical Decision & Procedures ER Provider Diagnostic Interpretation: Radiology results as stated below per my review and radiologist interpretation: CHEST ONE VIEW PORTABLE HISTORY: 86 years-old Male EVALUATE GI BLEED acute generalized abdominal pain. COMPARISON: Chest CT 03/28/2017, chest radiograph 03/27/2017 TECHNIQUE: Portable upright AP view of the chest FINDINGS: Cardiac silhouette is within normal limits there is background centrilobular emphysema with areas of pleural-parenchymal scarring. The lungs are hypoinflated. Ill-defined subsegmental left basilar opacity appears new from prior study. The previously noted pleural-based 1.5 cm nodule of the superior segment left upper lobe likely correlates with an ill-defined left suprahilar nodule. The bones are grossly intact. IMPRESSION: 1. Hypoinflation with subsegmental left basilar opacity suggesting atelectasis or pneumonia. 2. Emphysema. 3. Ill-defined left suprahilar opacity likely correlates with previously noted 1.5 cm pulmonary nodule of the superior segment left lower lobe. The above report was generated using voice recognition software. It may contain grammatical, syntax or spelling errors. Electronically signed by: Jl Kelley M.D. 04/16/2017 8:57 AM Dictated Date/Time: 04/16/2017 8:55 AM ABDOMEN AND PELVIS CT WITHOUT CONTRAST CT DOSE: 1068.21 mGy.cm HISTORY: Generalized abdominal PAIN, POSS obstruc--pain, bleeding TECHNIQUE: Multiaxial CT images of the abdomen and pelvis were performed without contrast. A dose lowering technique was utilized adhering to the principles of ALARA. COMPARISON STUDY: Abdomen and pelvis CT 03/26/2017. FINDINGS: Emphysema at the lung bases. No pneumoperitoneum. No pneumatosis. No suspicious lytic or blastic osseous lesions. Healing right lateral 11th rib fracture. This remains unchanged. There is a metallic density within the stomach which likely represents a surgical clips. This remains unchanged. Small fat-containing bilateral inguinal hernias are again noted. The unenhanced liver, adrenal glands, and pancreas are unremarkable. No renal stones or hydronephrosis. Stable exophytic 1.4 cm hypodense lesion within the left kidney. This is incompletely characterize on this noncontrast study. The bladder is decompressed by a Ball catheter. There are punctate calcified granulomas within the spleen. There is a punctate calcification either within or adjacent to the gallbladder. This could represent a small gallstone or hepatic calcification. No retroperitoneal lymphadenopathy. Suboptimal evaluation for bowel pathology due to the lack of intravenous and oral contrast. Extensive colonic diverticulosis. No definite bowel wall thickening or obstruction. Normal appendix. Mild bilateral renal atrophy. IMPRESSION: 1. No significant change compared to the prior study. 2. No definite bowel wall thickening or obstruction. 3. Normal appendix. 4. Extensive colonic diverticulosis. 5. No renal stones or hydronephrosis. Electronically signed by: Aubrey Kaplan M.D. 04/16/2017 9:30 AM Dictated Date/Time: 04/16/2017 9:20 AM Laboratory Results 04/16/17 10:02 Red Blood Count 2.53, Mean Corpuscular Volume 88.5, Mean Corpuscular Hemoglobin 25.7, Mean Corpuscular Hemoglobin Concent 29.0, Mean Platelet Volume 10.1, Neutrophils (%) (Auto) 57.6, Lymphocytes (%) (Auto) 24.8, Monocytes (%) (Auto) 15.2, Eosinophils (%) (Auto) 1.0, Basophils (%) (Auto) 0.5, Neutrophils # (Auto ) 3.34, Lymphocytes # (Auto) 1.44, Monocytes # (Auto) 0.88, Eosinophils # (Auto ) 0.06, Basophils # (Auto) 0.03 04/16/17 10:02 Test 04/16/17 10:02 04/16/17 10:10 04/16/17 11:57 White Blood Count 5.80 K/uL (4.8-10.8) Red Blood Count 2.53 M/uL (4.7-6.1) Hemoglobin 6.5 g/dL (14.0-18.0) Hematocrit 22.4 % (42-52) Mean Corpuscular Volume 88.5 fL (80-100) Mean Corpuscular Hemoglobin 25.7 pg (25-34) Mean Corpuscular Hemoglobin Concent 29.0 g/dl (32-36) Platelet Count 219 K/uL (130-400) Mean Platelet Volume 10.1 fL (7.4-10.4) Neutrophils (%) (Auto) 57.6 % Lymphocytes (%) (Auto) 24.8 % Monocytes (%) (Auto) 15.2 % Eosinophils (%) (Auto) 1.0 % Basophils (%) (Auto) 0.5 % Neutrophils # (Auto) 3.34 K/uL (1.4-6.5) Lymphocytes # (Auto) 1.44 K/uL (1.2-3.4) Monocytes # (Auto) 0.88 K/uL (0.11-0.59) Eosinophils # (Auto) 0.06 K/uL (0-0.5) Basophils # (Auto) 0.03 K/uL (0-0.2) RDW Standard Deviation 60.8 fL (36.4-46.3) RDW Coefficient of Variation 18.7 % (11.5-14.5) Immature Granulocyte % (Auto) 0.9 % Immature Granulocyte # (Auto) 0.05 K/uL (0.00-0.02) Nucleated RBC Absolute Count (auto) 0.06 K/uL (0-0) Nucleated Red Blood Cells % 1.0 % Polychromasia 1+ Hypochromasia PRESENT Anisocytosis PRESENT Prothrombin Time 52.5 SECONDS (9.0-12.0) Prothromb Time International Ratio 4.6 (0.9-1.1) Activated Partial Thromboplast Time 39.2 SECONDS (21.0-31.0) Partial Thromboplastin Ratio 1.5 Anion Gap 8.0 mmol/L (3-11) Est Creatinine Clear Calc Drug Dose 37.5 ml/min Estimated GFR () 38.6 Estimated GFR (Non- 33.3 BUN/Creatinine Ratio 23.0 (10-20) Calcium Level 8.3 mg/dl (8.5-10.1) Troponin I 0.025 ng/ml (0-0.045) Lipase 81 U/L (73-393) Urine Color YELLOW Urine Appearance CLEAR (CLEAR) Urine pH 7.0 (4.5-7.5) Urine Specific [place] 1.012 (1.000-1.030) Urine Protein NEG (NEG) Urine Glucose (UA) NEG (NEG) Urine Ketones NEG (NEG) Urine Occult Blood NEG (NEG) Urine Nitrite NEG (NEG) Urine Bilirubin NEG (NEG) Urine Urobilinogen NEG (NEG) Urine Leukocyte Esterase NEG (NEG) Laboratory results reviewed by me. Medications Administered Medications (Trade) Dose Ordered Sig/Cole Route Start Time Stop Time Status Last Admin Dose Admin Sodium Chloride 250 ml @ 999 mls/hr Q16M STAT IV 04/16/17 07:57 04/16/17 08:12 DC 04/16/17 07:57 999 MLS/HR Ondansetron HCl (Zofran Inj) 4 mg NOW STAT IV 04/16/17 07:57 04/16/17 08:01 DC 04/16/17 08:08 4 MG Sodium Chloride 250 ml @ 999 mls/hr Q16M STAT IV 04/16/17 08:19 04/16/17 08:34 DC 04/16/17 08:19 999 MLS/HR Sodium Chloride 500 ml @ 999 mls/hr Q31M STAT IV 04/16/17 10:09 04/16/17 10:39 DC 04/16/17 10:54 999 MLS/HR Phytonadione 10 mg/Sodium Chloride 51 ml @ 102 mls/hr ONE ONCE IV 04/16/17 11:00 04/16/17 11:29 DC 04/16/17 10:59 102 MLS/HR Prothrombin Complex Concent (Human) 2500 unit/ Syringe 100 ml @ 10 mls/min NOW ONCE IV 04/16/17 11:15 04/16/17 12:11 DC 04/16/17 11:09 10 MLS/MIN Ondansetron HCl (Zofran Inj) 4 mg Q6H PRN IV 04/16/17 11:15 05/16/17 11:14 04/16/17 11:36 4 MG ECG Indication: abdominal pain Rate (beats per minute): 83 Rhythm: sinus rhythm Findings: PAC, RBBB, ST depression (anterior and lateral) Comparison ECG Date: 03/26/17 Change: no significant change ED Course 0749: The patient was evaluated in room B6. A complete history and physical exam was performed. 0757: Ordered Zofran Inj 4 mg IV, Sodium Chloride 250 ml @ 999 mls/hr IV. 0819: Ordered 250 ml @ 999 mls/hr IV. 1009: Ordered Sodium Chloride 500 ml @ 999 mls/hr IV. 1045: I discussed the patients case with Dr. Coronado, Coagulation. She is going to order Kcentra for the patient. 1049: I reevaluated the patient and he is resting. I discussed the exam findings with him and I discussed the treatment plan. He verbalized complete understanding and agreement. The patient will be evaluated for further treatment. 1100: Ordered Phytonadione 10 mg/Sodium Chloride 51 ml @ 102 mls/hr Protocol IV. 1138: I discussed the patients case with TIRSO Mendez. He is going to evaluate the patient for further treatment. Medical Decision The patient is an 86 year old male who presents to the ED with complaints of rectal bleeding. Differential diagnoses considered include Lower GI bleeding, hemorrhoidal or rectal bleeding, anemia, coagulopathy, dehydration, electrolyte imbalance. There is no concerning leukocytosis. The patient is quite anemic with a hemoglobin of around 6. INR is elevated at 4.6. Renal insufficiency/failure was seen. No evidence for pancreatitis. EKG shows a sinus rhythm with a right bundle branch block, no evidence for acute PR. Cardiac enzyme testing is not consistent with acute chronic injury. Urinalysis does not show infection. Chest film shows some chronic findings, I see no obvious CHF, no obvious pneumonia, some atelectasis was suspected. Abdominal and pelvis CT does not show evidence for obstruction. The patient was given IV saline, this helped his blood pressure. He received IV vitamin K and was given IV Kcentra. He was ordered for blood for transfusion , 1 unit to be given while in the emergency room. I talked to the patient, he is aware of all his findings. I spoke with case management, the on-call hospitalist was consulted. He appears to be suffering from a lower GI bleed. He has been aggressively managed and seems to be improving. Medication Reconcilliation Current Medication List: was personally reviewed by me Blood Pressure Screening Patient's blood pressure: Low blood pressure Blood pressure disposition: Did not require urgent referral Consults Time Called: 1042 Consulting Physician: Fabio Andrade Returned Call: [phone] I discussed the patients case with Fabio Andrade. She is going to order Kcentra for the patient. Additional Consults: Time Called: 1042 Consulted Physician: TIRSO Mendez Returned Call: [phone] Additional Comments: I discussed the patients case with TIRSO Mendez. He is going to evaluate the patient for further treatment. Impression Primary Impression: Hypotension Additional Impressions: Anemia GI bleed Coagulopathy Dehydration Critical Care I have personally spent greater than 42 minutes of critical care time in the direct management of this patient. This includes bedside care, interpretation of diagnostic studies, and testing, discussion with consultants, patient, and family members, and other required patient management activities. This 42 minutes is in excess of all separately billable procedures. Scribe Attestation The scribe's documentation has been prepared under my direction and personally reviewed by me in its entirety. I confirm that the note above accurately reflects all work, treatment, procedures, and medical decision making performed by me. Departure Information Dispostion Being Evaluated By Hospitalist Kd Jarquin at [facility] (PCP) Problem Qualifiers
[2017-04-16] MEDS ORDERED: SODIUM CHLORIDE 0.9% 250ML 250 ML IV STA (08:19)
[2017-04-16] MEDS ORDERED: DULO60CA44 PO (08:20)
[2017-04-16] MEDS ORDERED: CYAN1TAB18 PO (08:23)
[2017-04-16] MEDS ORDERED: OXYC15TA89 PO (08:26)
[2017-04-16] MEDS ORDERED: ADVIN25/60 INH (08:26)
[2017-04-16] MEDS ORDERED: FLUD0.1T10 PO (08:26)
[2017-04-16] MEDS ORDERED: HYDR20TA3 PO (08:26)
[2017-04-16] MEDS ORDERED: WARF2TAB PO (08:30)
[2017-04-16] MEDS ORDERED: METO2.5T PO (08:33)
--- NOTE | 2017-04-16 08:59 | DIAGNOSTIC IMAGING REPORT ---
CHEST ONE VIEW PORTABLE HISTORY: 86 years-old Male EVALUATE GI BLEED acute generalized abdominal pain. COMPARISON: Chest CT 03/28/2017, chest radiograph 03/27/2017 TECHNIQUE: Portable upright AP view of the chest FINDINGS: Cardiac silhouette is within normal limits there is background centrilobular emphysema with areas of pleural-parenchymal scarring. The lungs are hypoinflated. Ill-defined subsegmental left basilar opacity appears new from prior study. The previously noted pleural-based 1.5 cm nodule of the superior segment left upper lobe likely correlates with an ill-defined left suprahilar nodule. The bones are grossly intact. IMPRESSION: 1. Hypoinflation with subsegmental left basilar opacity suggesting atelectasis or pneumonia. 2. Emphysema. 3. Ill-defined left suprahilar opacity likely correlates with previously noted 1.5 cm pulmonary nodule of the superior segment left lower lobe. The above report was generated using voice recognition software. It may contain grammatical, syntax or spelling errors. Electronically signed by: Jl Kelley M.D. 04/16/2017 8:57 AM Dictated Date/Time: 04/16/2017 8:55 AM
--- NOTE | 2017-04-16 09:31 | DIAGNOSTIC IMAGING REPORT ---
ABDOMEN AND PELVIS CT WITHOUT CONTRAST CT DOSE: 1068.21 mGy.cm HISTORY: Generalized abdominal PAIN, POSS obstruc--pain, bleeding TECHNIQUE: Multiaxial CT images of the abdomen and pelvis were performed without contrast. A dose lowering technique was utilized adhering to the principles of ALARA. COMPARISON STUDY: Abdomen and pelvis CT 03/26/2017. FINDINGS: Emphysema at the lung bases. No pneumoperitoneum. No pneumatosis. No suspicious lytic or blastic osseous lesions. Healing right lateral 11th rib fracture. This remains unchanged. There is a metallic density within the stomach which likely represents a surgical clips. This remains unchanged. Small fat-containing bilateral inguinal hernias are again noted. The unenhanced liver, adrenal glands, and pancreas are unremarkable. No renal stones or hydronephrosis. Stable exophytic 1.4 cm hypodense lesion within the left kidney. This is incompletely characterize on this noncontrast study. The bladder is decompressed by a Ball catheter. There are punctate calcified granulomas within the spleen. There is a punctate calcification either within or adjacent to the gallbladder. This could represent a small gallstone or hepatic calcification. No retroperitoneal lymphadenopathy. Suboptimal evaluation for bowel pathology due to the lack of intravenous and oral contrast. Extensive colonic diverticulosis. No definite bowel wall thickening or obstruction. Normal appendix. Mild bilateral renal atrophy. IMPRESSION: 1. No significant change compared to the prior study. 2. No definite bowel wall thickening or obstruction. 3. Normal appendix. 4. Extensive colonic diverticulosis. 5. No renal stones or hydronephrosis. Electronically signed by: Aubrey Kaplan M.D. 04/16/2017 9:30 AM Dictated Date/Time: 04/16/2017 9:20 AM
[2017-04-16] MEDS ORDERED: SODIUM CHLORIDE 0.9% 500ML 500 ML IV STA (10:09)
[2017-04-16 10:21] LABS: URINE APPEARANCE CLEAR (CLEAR); URINE BILIRUBIN NEG (NEG); URINE COLOR YELLOW; URINE NITRITE NEG (NEG); URINE SPECIFIC GRAVITY 1.012 (1.000-1.030); UROBILINOGEN NEG (NEG); ZZURINE CULT IF INDIC CATH NO
[2017-04-16 10:24] LABS: MANUAL MICROSCOPIC REQUIRED? NO; REVIEW REQ? NO
[2017-04-16 10:28] LABS: PARTIAL THROMBOPLASTIN RATIO 1.5; PROTHROMBIN TIME (PATIENT) 52.5 SECONDS (9.0-12.0)
[2017-04-16 10:32] LABS: CALCIUM 8.3 mg/dl (8.5-10.1); CREATININE 1.8 mg/dl (0.60-1.40); POTASSIUM 3.5 mmol/L (3.5-5.1)
[2017-04-16 10:34] LABS: HEMATOCRIT 22.4 % (42-52); INR 4.6 (0.9-1.1); MEAN CELL VOLUME 88.5 fL (80-100); MEAN CORPUSCULAR HEMOGLOBIN 25.7 pg (25-34); MEAN PLATELET VOLUME 10.1 fL (7.4-10.4); PLATELET COUNT 219 K/uL (130-400); RED BLOOD COUNT 2.53 M/uL (4.7-6.1)
[2017-04-16 10:47] LABS: ANISOCYTOSIS PRESENT; BASO % 0.5 %; BASO ABS # 0.03 K/uL (0-0.2); COMPLETE YES; HYPOCHROMIA PRESENT; IG% 0.9 %; LYMPH % 24.8 %; LYMPH ABS # 1.44 K/uL (1.2-3.4); MONO % 15.2 %; NEUT % 57.6 %; POLYCHROMASIA 1+
[2017-04-16] MEDS ORDERED: PHYTONADIONE INJ 10 MG in SODIUM CHLORIDE 0.9% 50ML 50 ML IV ONE (11:00)
--- NOTE | 2017-04-16 11:14 | History and Physical ---
History & Physical Date & Time of Service: Apr 16, 2017 at 11:04 Chief Complaint: Abdominal Pain/Lethargic Primary Care Physician: Milka Major Gentry History of Present Illness Source: patient 86 y/o M w/Hx COPD, CAD, CKD 3-4, DM, chronic aspiration, adrenal insufficiency , recurrent PNM, recurrent UTIs, history of DVT on Coumadin. Resides in a nursing facility. Pt has been admitted to the hospital 4 x this yr for pneumonia due to aspiration. Over the past day he has developed diffuse lower quadrant abdominal pain, nausea in addition to BRBPR. He denies CP, SOB, cough , dysuria. He does state that 2 days ago he had hematuria which resolved spontaneously. On arrival to the ER the pt was hypotensive with an SBP in the 80s. Initial labs were notable for an INR of 4.5 and a Hemoglobin of 6.9 from a baseline of 11. He received Vitamin K and K Centra in the ER. Past Medical/Surgical History Medical Problems: (1) Anemia Baseline Hb 10-12 (2) HTN (hypertension) Status: Chronic (3) COPD (chronic obstructive pulmonary disease) Status: Chronic (4) Coronary artery disease Status: Chronic (5) CVA (cerebrovascular accident) Status: Resolved (6) Adrenal insufficiency Status: Resolved (7) CAD/[place] (myocardial infarction) Status: Resolved (8) Hypercholesterolemia Status: Chronic (9) Hyperparathyroidism Status: Chronic (10) Peripheral vascular disease Status: Chronic (11) Recurrent aspiration pneumonia (12) Recurrent UTIs (13) CKD 3-4 (14) DVTs - on Coumadin Surgical Problems: (1) H/O heart artery stent Status: Resolved Family History FH: heart disease Hypertension Social History Smoking Status: Former Smoker Drug Use: none Marital Status: Housing status: lives with family, [facility] Occupational Status: retired Immunizations History of Influenza Vaccine: Yes Influenza Vaccine Date: Jun 08, 2013 History of Tetanus Vaccine?: Unknown History of Pneumococcal: Yes History of Hepatitis B Vaccine: Unknown Multi-Drug Resistant Organisms History of MDRO: Yes Type of MDRO: MRSA Allergies Coded Allergies: No Known Allergies (Unverified , 04/16/17) Home Medications Scheduled Acetaminophen (Tylenol), 1,000 MG PO Q12 Aspirin (Aspirin Chewable), 81 MG PO DAILY Atenolol (Tenormin), 12.5 MG PO DAILY Atorvastatin (Atorvastatin Calcium), 20 MG PO HS Bisacodyl (Bisacodyl), 5 MG PO BID Ciclopirox (Ciclodan), 1 APPLN TOP QPM Clopidogrel (Plavix), 75 MG PO DAILY Cyanocobalamin (B-12), 1,000 MCG PO QAM Docusate Sodium (Colace), 100 MG PO BID Duloxetine Hcl (Cymbalta), 60 MG PO QAM Dutasteride (Dutasteride), 0.5 MG PO DAILY Famotidine (Famotidine), 20 MG PO HS Fiber Laxative (Fiber Laxative), 1 TAB PO DAILY Fludrocortisone Acetate (Florinef), 0.1 MG PO BID Fluticasone Prop/Salmeterol (Advair Diskus 250/50 60 Dose), 1 PUFF INH BID Fluticasone Propionate (Fluticasone Propionate), 2 SPRAYS NA DAILY Gabapentin (Gabapentin), 800 MG PO TID Guaifenesin Ext Rel (Mucinex Ext Rel), 1,200 MG PO Q12 Home O2 Therapy (Oxygen), 1 LITER NA PRN Hydrocortisone (Cortef), 40 MG PO BID Insulin Aspart 70/30 (Novolog Mix 70/30), 5 UNITS SQ QPM Insulin Aspart Protamine & Asp (Novolog Mix 70/30), 20 UNITS SQ QAM Insulin Glargine (Lantus), 55 UNIT SQ HS Ipratropium-Albuterol (Combivent Respimat), 1 PUFF INH QID Lidocaine (Lidocaine), 1 PATCH TD QAM Magnesium Oxide (Mag-Ox), 400 MG PO BID Methenamine Hippurate (Methenamine Hippurate), 1 GM PO HS Multiple Vitamins W/ Minerals (Therems M), 1 TAB PO DAILY Omeprazole (Prilosec), 20 MG PO DAILY Oxycodone Hcl (Oxycontin), 15 MG PO Q12 Polyethylene Glycol 3350 (Miralax), 17 GM PO BID Polyethylene Glycol-Propylene (Systane Ultra), 1 DROPS OPB BID Tamsulosin Hcl (Flomax), 0.4 MG PO HS Torsemide (Torsemide), 60 MG PO QAM Warfarin Sodium (Coumadin), 2 MG PO HS Scheduled PRN Levalbuterol (Levalbuterol HCl), 1 VIAL NEB Q4 PRN for Wheezing Metolazone (Zaroxolyn), 2.5 MG PO DAILY PRN for WEIGHT GAIN Nitroglycerin (Nitrostat), 1 TAB SL UD PRN for Chest Pain Simethicone (Gas-X), 80 MG PO QID PRN for Indigestion Trolamine Salicylate (Aspercreme), 1 APPLN TOP BID PRN for ARTHRITIS PAIN Review of Systems Constitutional: + weakness, No fever, No chills, No sweats Eyes: No worsening of vision ENT: No hearing loss, No unusual epistaxis, No nasal symptoms Respiratory: No cough, No sputum, No wheezing Cardiovascular: No chest pain, No orthopnea, No PND Abdomen: + pain, + nausea, + GI bleeding, No vomiting Musculoskeletal: No joint pain Genitourinary - Male: + hematuria (2 days prior), No dysuria, No urinary frequency, No urinary urgency Neurologic: No memory loss, No paralysis Psychiatric: No depression symptoms Endocrine: + fatigue Hematologic / Lymphatic: + abnormal bleeding/bruising Integumentary: No rash Allergic / Immunologic: No environmental allergies Physical Exam Vital Signs Date Time Temp Pulse Resp B/P (MAP) Pulse Ox O2 Delivery O2 Flow Rate FiO2 04/16/17 09:43 95 18 113/68 96 Room Air 04/16/17 09:07 90 16 103/64 96 Room Air 04/16/17 08:17 90 04/16/17 08:15 84 16 74/42 94 Room Air 04/16/17 07:49 36.8 82 18 112/65 96 Room Air General Appearance: + pertinent finding (Obese elderly male - answers questions appropriately - appears uncomfortable - mild distress due to abdominal pain) Head: normocephalic, atraumatic Eyes: normal inspection, + pertinent finding (periorbital swelling - chronic) ENT: pharynx normal Neck: supple, no adenopathy, thyroid normal, no JVD Respiratory/Chest: chest non-tender, lungs clear, normal breath sounds Cardiovascular: regular rate, rhythm, no edema, no gallop, + systolic murmur Abdomen/GI: + pertinent finding (Very tender with some guarding in lower quadrants) Back: normal inspection, no CVA tenderness Extremities/Musculoskelatal: normal inspection, no calf tenderness, normal capillary refill, no pedal edema, normal range of motion Neurologic/Psych: galley boy II-XII nml as tested, no motor/sensory deficits, alert Skin: normal color, warm/dry Diagnostics Laboratory Results Results Past 24 Hours Test 04/16/17 10:02 04/16/17 10:10 Range/Units White Blood Count 5.80 4.8-10.8 K/uL Red Blood Count 2.53 4.7-6.1 M/uL Hemoglobin 6.5 14.0-18.0 g/dL Hematocrit 22.4 42-52 % Mean Corpuscular Volume 88.5 80-100 fL Mean Corpuscular Hemoglobin 25.7 25-34 pg Mean Corpuscular Hemoglobin Concent 29.0 32-36 g/dl Platelet Count 219 130-400 K/uL Mean Platelet Volume 10.1 7.4-10.4 fL Neutrophils (%) (Auto) 57.6 % Lymphocytes (%) (Auto) 24.8 % Monocytes (%) (Auto) 15.2 % Eosinophils (%) (Auto) 1.0 % Basophils (%) (Auto) 0.5 % Neutrophils # (Auto) 3.34 1.4-6.5 K/uL Lymphocytes # (Auto) 1.44 1.2-3.4 K/uL Monocytes # (Auto) 0.88 0.11-0.59 K/uL Eosinophils # (Auto) 0.06 0-0.5 K/uL Basophils # (Auto) 0.03 0-0.2 K/uL RDW Standard Deviation 60.8 36.4-46.3 fL RDW Coefficient of Variation 18.7 11.5-14.5 % Immature Granulocyte % (Auto) 0.9 % Immature Granulocyte # (Auto) 0.05 0.00-0.02 K/uL Nucleated RBC Absolute Count (auto) 0.06 0-0 K/uL Nucleated Red Blood Cells % 1.0 % Polychromasia 1+ Hypochromasia PRESENT Anisocytosis PRESENT Prothrombin Time 52.5 9.0-12.0 SECONDS Prothromb Time International Ratio 4.6 0.9-1.1 Activated Partial Thromboplast Time 39.2 21.0-31.0 SECONDS Partial Thromboplastin Ratio 1.5 Sodium Level 143 136-145 mmol/L Potassium Level 3.5 3.5-5.1 mmol/L Chloride Level 104 98-107 mmol/L Carbon Dioxide Level 31 21-32 mmol/L Anion Gap 8.0 3-11 mmol/L Blood Urea Nitrogen 41 7-18 mg/dl Creatinine 1.80 0.60-1.40 mg/dl Est Creatinine Clear Calc Drug Dose 37.5 ml/min Estimated GFR () 38.6 Estimated GFR (Non- 33.3 BUN/Creatinine Ratio 23.0 10-20 Random Glucose 189 70-99 mg/dl Calcium Level 8.3 8.5-10.1 mg/dl Troponin I 0.025 0-0.045 ng/ml Lipase 81 73-393 U/L Urine Color YELLOW Urine Appearance CLEAR CLEAR Urine pH 7.0 4.5-7.5 Urine Specific [place] 1.012 1.000-1.030 Urine Protein NEG NEG Urine Glucose (UA) NEG NEG Urine Ketones NEG NEG Urine Occult Blood NEG NEG Urine Nitrite NEG NEG Urine Bilirubin NEG NEG Urine Urobilinogen NEG NEG Urine Leukocyte Esterase NEG NEG Diagnostic Radiology CT Abdomen 1. No significant change compared to the prior study. 2. No definite bowel wall thickening or obstruction. 3. Normal appendix. 4. Extensive colonic diverticulosis. 5. No renal stones or hydronephrosis. Impression Assessment and Plan 86 y/o M w/Hx COPD, CAD, CKD 3-4, DM, chronic aspiration, adrenal insufficiency , recurrent PNM, recurrent UTIs, history of DVT on Coumadin. Resides in a nursing facility. Pt has been admitted to the hospital 4 x this yr for pneumonia due to aspiration. Over the past day he has developed diffuse lower quadrant abdominal pain, nausea in addition to BRBPR. He denies CP, SOB, cough , dysuria. He does state that 2 days ago he had hematuria which resolved spontaneously. On arrival to the ER the pt was hypotensive with an SBP in the 80s. Initial labs were notable for an INR of 4.5 and a Hemoglobin of 6.9 from a baseline of 11. He received Vitamin K and K Centra in the ER. 1) GI bleed - BRBPR with significant anemia - no clear abnormalities noted on CT abdomen. Abdominal pain is chronic and noted on previous admissions without etiology. However, I believe clinically his pain has worsened, and there is concern due to his history for ischemic etiology. We will obtain a stat lactic and amylase and have discussed the above with GI at the time of admission. He may need additional imaging, although we may be limited by his chronic renal disease. 2) Diastolic CHF is mentioned in the record as is cor pulmonale although we do not have echo confirmation. Echo was normal in 2015. He does have chronic edema however and will need frequent volume assessment as he may be prone to volume overload. 3) CKD - 3-4 - creat is at baseline. We have held his AM diuretics and provided gentle hydration when transfusions are complete due to hypotension. 4) COPD - no change in 02 requirements or wheezing on exam - will receive duonebs, PRN Xopenex. Steroids are not indicated at present although he will receive Cortef for adrenal insufficiency. 5) Adrenal insufficiency - will continue fludrocortisone and Cortef - although his low BP may be due to blood loss, we have provided a stress dose of Cortef which can be continued if his BP does not stabilize following transfusion. 6) CAD - extensive LAD stenting - no evidence of ACS - cont B opal with parameters if BP stable. Cont statin - ASA and Plavix held in setting of acute bleed. 7) History of DVT - pt is on Coumadin normally which has been reversed - SCDs applied. 8) Reported hematuria 2 days prior - current UA is negative for occult blood or infection Full code - SCDs Total time for this admit including review of labs, meds, imaging - discussion with pt, spouse, ER attending - 40 min Level of Care Telemetry Resuscitation Status FULL RESUSCITATION VTE Prophylaxis Given or contraindicated: SCD's
[2017-04-16] MEDS ORDERED: ACETAMINOPHEN 325 MG TAB PO PRN (11:15)
[2017-04-16] MEDS ORDERED: MoRPHine SULFATE 2 MG/ML CARP IV PRN (11:15)
[2017-04-16] MEDS ORDERED: PROTHROMBIN COMP CONC- KCENTRA 2,500 UNIT in SYRINGE 0 ML IV ONE (11:15)
[2017-04-16] MEDS ORDERED: SIMETHICONE 80 MG CHEW PO PRN (11:30)
[2017-04-16] MEDS: ONDANSETRON INJ 2 MG/ML 2 ML VIAL IV PRN (11:36)
[2017-04-16] MEDS ORDERED: INFLUENZA VACCINE HIGH DOSE 65+ 0.5 ML SYR IM. ONE (12:45)
[2017-04-16] MEDS ORDERED: INFLUENZA ADMINISTRATION CHARGE ONE (12:45)
[2017-04-16] MEDS ORDERED: NSS + 20MEQ KCL 1000ML 1,000 ML IV SCH (13:00)
[2017-04-16] MEDS ORDERED: HYDROCORTISONE IV 100 MG in SYRINGE 0 ML IV ONE (13:00)
[2017-04-16] MEDS ORDERED: GABAPENTIN 800 MG TAB PO ONE (13:45)
[2017-04-16] MEDS ORDERED: OXYCODONE HCL 15 MG TABCR (OXYCONTIN) PO ONE (13:45)
--- NOTE | 2017-04-16 13:59 | Gastrointestinal Consultation ---
Gastrointestinal Consultation Date of Consultation: Apr 16, 2017 Attending Physician: Joey Gross Consulting Physician: Gely Miller Reason for Consultation: GI bleed History of Present Illness Patient is a 86 year old male w PMHx of COPD, CAD, CKD, DM, chronic aspiration w pneumonia, adrenal insufficiency, UTIs, DVT on Coumadin who was brought to ED by [facility] staff for abd pain and lethargy. He is currently snoring, asleep in bed, when awoken, unable to provide history. History obtain from at his bedside and admission H&P. Pt had multiple admissions and ED visits for aspiration pneumonia/respiratory distress related to COPD. reports last night pt was having dinner at their apartment last night and didn't have much of an appetite, and having c/o stomach discomfort. At baseline per his he' s oriented, and using power chair to ambulate. This morning received a call that pt was taken to ED for abd pain, n/v, and having BRBPR. VS, labs, chart reviewed. He was noted to be anemic w Hgb of 6, baseline 11. INR 4.5 on Coumadin for DVT. He had received Vit K and K Centra in ED. Rectal exam by ED physician revealed dark red stool, heme positive, no obvious masses. CXR: 1. Hypoinflation with subsegmental left basilar opacity suggesting atelectasis or pneumonia. 2. Emphysema. 3. Ill-defined left suprahilar opacity likely correlates with previously noted 1.5 cm pulmonary nodule of the superior segment left lower lobe. CT abd/pelvis: 1. No significant change compared to the prior study. 2. No definite bowel wall thickening or obstruction. 3. Normal appendix. 4. Extensive colonic diverticulosis. 5. No renal stones or hydronephrosis. Last EGD and colonoscopy in 2013. Grossly unremarkable EGD, Colonoscopy w adenomatous polyp and severe diverticulosis. Past Medical/Surgical History Medical Problems: (1) Acute on chronic renal failure Status: Acute (2) Anemia Status: Acute (3) Coagulopathy Status: Acute (4) Confusion Status: Acute (5) Dehydration Status: Acute (6) Fever Status: Acute (7) GI bleed Status: Acute (8) Hypoglycemia Status: Acute (9) Hypotension Status: Acute (10) Hypoxia Status: Acute (11) Hypoxia Status: Acute (12) Influenza A Status: Acute (13) Malfunction of Ball catheter Status: Acute (14) Reactive airway disease Status: Acute (15) Respiratory distress Status: Acute Past Medical History: See above Past Surgical History: Cardiac stent placement Family History FH: heart disease Hypertension Social History Smoking Status: Former Smoker Alcohol Use: occasionally Drug Use: none Marital Status: Housing Status: assisted living Occupation Status: retired Allergies Coded Allergies: No Known Allergies (Unverified , 04/16/17) Current Medications Home Meds and Scripts Medications Dose Route/Sig Max Daily Dose Days Date Category Dose Instructions Zaroxolyn (Metolazone) 2.5 Mg Tab 2.5 Mg PO DAILY PRN 04/16/17 Reported 3 LBS IN 24HRS OR 5LBS IN 7 DAYS Coumadin (Warfarin Sodium) 2 Mg Tab 2 Mg PO HS 04/16/17 Reported Oxycontin (Oxycodone Hcl) 15 Mg Tab 15 Mg PO Q12 04/16/17 Reported Cortef (Hydrocortisone) 20 Mg Tab 40 Mg PO BID 04/16/17 Reported Florinef (Fludrocortisone Acetate) 0.1 Mg Tab 0.1 Mg PO BID 04/16/17 Reported Advair Diskus 250/50 60 Dose (Fluticasone Prop/Salmeterol) 1 Ea Aerp 1 Puff INH BID 04/16/17 Reported B-12 (Cyanocobalamin) 1,000 Mcg Tab 1,000 Mcg PO QAM 04/16/17 Reported Cymbalta (Duloxetine Hcl) 60 Mg Cap 60 Mg PO QAM 04/16/17 Reported Oxygen Gas 1 Liter NA PRN 03/13/17 Reported Ciclodan (Ciclopirox) 8 % Idania 1 Appln TOP QPM 03/13/17 Reported apply penlac 8% and ciclopirox 8% solution topically to thick finger and toenails once nightly Methenamine Hippurate 1 Gm Tab 1 Gm PO HS 03/01/17 Reported Novolog Mix 70/30 (Insulin Aspart Prota 70%/Aspart 30%) Susp 5 Units SQ QPM 03/01/17 Reported Novolog Mix 70/30 (Insulin Aspart Protamine & Asp) 1 Inj Inj 20 Units SQ QAM 03/01/17 Reported Flomax (Tamsulosin Hcl) 0.4 Mg Cap 0.4 Mg PO HS 03/01/17 Reported Lantus (Insulin Glargine) 100 Unit/Ml Inj 55 Unit SQ HS 03/01/17 Reported Famotidine 20 Mg Tab 20 Mg PO HS 03/01/17 Reported Dutasteride 0.5 Mg Cap 0.5 Mg PO DAILY 03/01/17 Reported Atorvastatin Calcium (Atorvastatin) 20 Mg Tab 20 Mg PO HS 03/01/17 Reported Combivent Respimat (Ipratropium-Albuterol) 1 Aer Aer 1 Puff INH QID 03/01/17 Reported Gabapentin 800 Mg Tab 800 Mg PO TID 03/01/17 Reported Fiber Laxative (Fiber) Ea 1 Tab PO DAILY 03/01/17 Reported Miralax (Polyethylene Glycol 3350) 1 Pow Pow 17 Gm PO BID 11/07/16 Reported Gas-X (Simethicone) 80 Mg Chw 80 Mg PO QID PRN 11/07/16 Reported Aspercreme (Trolamine Salicylate) 10 % Lot 1 Appln TOP BID PRN 11/07/16 Reported Tenormin (Atenolol) 25 Mg Tab 12.5 Mg PO DAILY 10/22/16 Reported Tylenol (Acetaminophen) 500 Mg Tab 1,000 Mg PO Q12 10/06/16 Reported TAKE AT 0800 & 2000 Colace (Docusate Sodium) 100 Mg Cap 100 Mg PO BID 10/06/16 Reported Levalbuterol HCl (Levalbuterol) 0.63 Mg/3 Ml Nebu 1 Vial NEB Q4 PRN 10/06/16 Reported Mucinex Ext Rel (Guaifenesin) 600 Mg Tabcr 1,200 Mg PO Q12 10/06/16 Reported Torsemide 20 Mg Tab 60 Mg PO QAM 30 10/05/16 Rx Prilosec (Omeprazole) 20 Mg Capcr 20 Mg PO DAILY 10/01/16 Reported Therems M (Multiple Vitamins W/ Minerals) 1 Tab Tab 1 Tab PO DAILY 08/17/16 Reported Nitrostat (Nitroglycerin) 0.4 Mg Tab 1 Tab SL UD PRN 08/17/16 Reported Lidocaine 1 Patch Tdsy 1 Patch TD QAM 30 07/21/16 Rx to back pain Fluticasone Propionate 50 Mcg/Act Spr 2 Sprays NA DAILY 30 07/21/16 Rx Mag-Ox (Magnesium Oxide) 400 Mg Tab 400 Mg PO BID 07/14/16 Reported Systane Ultra (Polyethylene Glycol-Propylene) 1 Idania Idania 1 Drops OPB BID 07/14/16 Reported Aspirin Chewable (Aspirin) 81 Mg Chew 81 Mg PO DAILY 11/08/14 Reported Bisacodyl 5 Mg Tab 5 Mg PO BID 10/09/14 Reported Plavix (Clopidogrel Bisulfate) 75 Mg Tab 75 Mg PO DAILY 07/15/14 Reported Review of Systems Constitutional: + see HPI (Unable to obtain ROS from pt) Physical Exam Date Time Temp Pulse Resp B/P (MAP) Pulse Ox O2 Delivery O2 Flow Rate FiO2 04/16/17 13:23 36.4 84 16 99/65 96 04/16/17 12:26 36.6 87 18 115/76 98 04/16/17 11:56 36.6 88 18 110/78 96 04/16/17 11:41 04/16/17 11:38 36.8 88 17 132/77 95 04/16/17 11:28 98 04/16/17 11:22 92 18 94/58 95 Room Air 04/16/17 11:21 95 Room Air 04/16/17 09:43 95 18 113/68 96 Room Air 04/16/17 09:07 90 16 103/64 96 Room Air 04/16/17 08:17 90 04/16/17 08:15 84 16 74/42 94 Room Air 04/16/17 07:49 36.8 82 18 112/65 96 Room Air General Appearance: no apparent distress Neck: supple, no JVD, trachea midline Respiratory/Chest: no respiratory distress, no accessory muscle use, + decreased breath sounds Cardiovascular: regular rate, rhythm, no gallop, no murmur Abdomen: non tender, soft, + abnormal bowel sounds (hypoactive), + pertinent finding (Unable to perform rectal exam given pt cannot cooperate w exam (is stuporous). ) Extremities: normal inspection, no pedal edema, no calf tenderness Neurologic/Psych: + disoriented (Was sleeping but easily awoken when touched, though unable to hold a conversation and falls back to sleep ) Skin: normal color, no jaundice, no rash Laboratory Results Last 24 Hours Test 04/16/17 10:02 04/16/17 10:10 04/16/17 11:57 White Blood Count 5.80 K/uL Red Blood Count 2.53 M/uL Hemoglobin 6.5 g/dL Hematocrit 22.4 % Mean Corpuscular Volume 88.5 fL Mean Corpuscular Hemoglobin 25.7 pg Mean Corpuscular Hemoglobin Concent 29.0 g/dl Platelet Count 219 K/uL Mean Platelet Volume 10.1 fL Neutrophils (%) (Auto) 57.6 % Lymphocytes (%) (Auto) 24.8 % Monocytes (%) (Auto) 15.2 % Eosinophils (%) (Auto) 1.0 % Basophils (%) (Auto) 0.5 % Neutrophils # (Auto) 3.34 K/uL Lymphocytes # (Auto) 1.44 K/uL Monocytes # (Auto) 0.88 K/uL Eosinophils # (Auto) 0.06 K/uL Basophils # (Auto) 0.03 K/uL RDW Standard Deviation 60.8 fL RDW Coefficient of Variation 18.7 % Immature Granulocyte % (Auto) 0.9 % Immature Granulocyte # (Auto) 0.05 K/uL Nucleated RBC Absolute Count (auto) 0.06 K/uL Nucleated Red Blood Cells % 1.0 % Polychromasia 1+ Hypochromasia PRESENT Anisocytosis PRESENT Prothrombin Time 52.5 SECONDS Prothromb Time International Ratio 4.6 Activated Partial Thromboplast Time 39.2 SECONDS Partial Thromboplastin Ratio 1.5 Sodium Level 143 mmol/L Potassium Level 3.5 mmol/L Chloride Level 104 mmol/L Carbon Dioxide Level 31 mmol/L Anion Gap 8.0 mmol/L Blood Urea Nitrogen 41 mg/dl Creatinine 1.80 mg/dl Est Creatinine Clear Calc Drug Dose 37.5 ml/min Estimated GFR () 38.6 Estimated GFR (Non- 33.3 BUN/Creatinine Ratio 23.0 Random Glucose 189 mg/dl Calcium Level 8.3 mg/dl Troponin I 0.025 ng/ml Lipase 81 U/L Urine Color YELLOW Urine Appearance CLEAR Urine pH 7.0 Urine Specific [place] 1.012 Urine Protein NEG Urine Glucose (UA) NEG Urine Ketones NEG Urine Occult Blood NEG Urine Nitrite NEG Urine Bilirubin NEG Urine Urobilinogen NEG Urine Leukocyte Esterase NEG Impression Patient is a 86 year old male admitted for lethargy, previously having low appetite, c/o abd pain, and found to have [facility]BPR in [facility]. He was noted to be anemic w Hgb 6, first unit of PRBC transfusion running. He was on Coumadin for DVT, INR 4.6, had been given Vit K and K Centra in ED. DDX: diverticular, hemorrhoidal, AVM bleeding, infectious colitis. Plan - Monitor H/H and transfuse prn - Reverse INR - Will follow and re-eval tomorrow to see if any endoscopic evaluation is indicated. Given his history of recurrent aspiration pneumonia, would prefer to avoid procedures which would require sedation unless emergent or has significant benefits. - Check stool cx and Cdiff if diarrhea.
[2017-04-16] MEDS ORDERED: GLUCAGON FOR INJ 1 MG VIAL SQ PRN (14:00)
[2017-04-16] MEDS ORDERED: GLUCOSE 40% GEL 15 GM TUBE PO PRN (14:00)
[2017-04-16] MEDS ORDERED: GLUCOSE 10 TABS/TUBE PO PRN (14:00)
[2017-04-16] MEDS ORDERED: DEXTROSE 50% 50 ML SYR IV PRN (14:00)
[2017-04-16] MEDS: LIDODERM (LIDOCAINE) PATCH 5% TD SCH (15:25)
[2017-04-16] MEDS ORDERED: INSULIN ASPART 100 UNITS/ML 3 ML PEN SC SCH (16:15)
[2017-04-16] MEDS: INSULIN ASPART 100 UNITS/ML 3 ML PEN SC SCH (18:59)
[2017-04-16] MEDS: FLUTICASONE/SALMETEROL 250/50 (ADVAIR) 14 PUFF/1 INHALER INH SCH (20:53)
[2017-04-16] MEDS: IPRATROPIUM BROMIDE/ALBUTEROL respimat INH INH SCH (20:54)
[2017-04-16] MEDS: FLUDROCORTISONE ACETATE 0.1 MG TAB PO SCH (20:55)
[2017-04-16] MEDS: GABAPENTIN 800 MG TAB PO SCH (20:56)
[2017-04-16] MEDS: TAMSULOSIN HCL 0.4 MG CAP PO SCH (20:56)
[2017-04-16] MEDS: METHENAMINE HIPPURATE 1 GM TAB PO SCH (20:56)
[2017-04-16] MEDS: ATORVASTATIN 20 MG TAB PO SCH (20:56)
[2017-04-16] MEDS: GUAIFENESIN 600 MG TABCR PO SCH (20:57)
[2017-04-16] MEDS: HYDROCORTISONE 10 MG TAB PO SCH (20:57)
[2017-04-16] MEDS: FAMOTIDINE 20 MG TAB PO SCH (20:57)
[2017-04-16] MEDS: MAGNESIUM OXIDE 400 MG TAB PO SCH (20:57)
--- NOTE | 2017-04-16 22:34 | Progress Note ---
Progress Note Date of Service Apr 16, 2017. Progress Note There was some confusion regarding code status Order was made for full code POLST form states DNR I discussed discrepancy with patient who stated that he wanted to go according to what was in his POLST. I re-iterated DNR status and he was in agreement with this. Code status has been changed to level 5
[2017-04-16] MEDS: OXYCODONE HCL 15 MG TABCR (OXYCONTIN) PO SCH (23:35)
[2017-04-17] VITALS (7 sets, daily range): BP systolic 93–107; BP diastolic 54–67; PULSE 67–88; TEMP 36.5–37.2; O2SAT 93–100
[2017-04-17] MEDS: INSULIN ASPART 100 UNITS/ML 3 ML PEN SC SCH ×5 (06:00→21:28)
[2017-04-17] MEDS: HYDROCORTISONE 10 MG TAB PO SCH ×2 (07:39→21:33)
[2017-04-17] MEDS: OXYCODONE HCL 15 MG TABCR (OXYCONTIN) PO SCH ×2 (07:39→21:30)
[2017-04-17] MEDS: FLUTICASONE/SALMETEROL 250/50 (ADVAIR) 14 PUFF/1 INHALER INH SCH ×2 (07:40→21:29)
[2017-04-17] MEDS: FLUTICASONE PROPIONATE NA SPR 16 GM BTL SCH (07:40)
[2017-04-17] MEDS: IPRATROPIUM BROMIDE/ALBUTEROL respimat INH INH SCH ×4 (07:40→21:29)
[2017-04-17] MEDS: PANTOprazole SOD 40 MG TAB PO SCH (07:41)
[2017-04-17] MEDS: DULOXETINE HCL 60 MG CAP PO SCH (07:41)
[2017-04-17] MEDS: LIDODERM (LIDOCAINE) PATCH 5% TD SCH (07:42)
[2017-04-17] MEDS: GUAIFENESIN 600 MG TABCR PO SCH ×2 (07:43→21:30)
[2017-04-17] MEDS: FLUDROCORTISONE ACETATE 0.1 MG TAB PO SCH ×2 (07:43→21:29)
[2017-04-17] MEDS: MAGNESIUM OXIDE 400 MG TAB PO SCH ×2 (07:43→21:34)
[2017-04-17] MEDS: GABAPENTIN 800 MG TAB PO SCH ×3 (07:43→21:29)
--- NOTE | 2017-04-17 11:42 | Gastroenterology Progress Note ---
Progress Note Date of Service: Apr 17, 2017 Subjective Pt evaluation today including: conversation w/ patient, physical exam, chart review, lab review, review of inpatient medication list Pt sleeping but woke up immediately when name called. He is oriented x3, citing abdominal bleed as reason why he's in hospital. He denies any abd pain, n/v. He hasn't had any BMs overnight. He received 2U PRBC transfusion overnight, Hgb 6.5 -> 8.8 -> 7.7. Review of Systems Constitutional: No fever, No chills Respiratory: No cough, No shortness of breath Cardiac: No chest pain Abdomen: No pain, No nausea, No vomiting, No GI bleeding Medications Current Inpatient Medications Medications (Trade) Dose Ordered Sig/Cole Route Start Time Stop Time Status Last Admin Dose Admin Acetaminophen (Tylenol Tab) 650 mg Q4H PRN PO 04/16/17 11:15 05/16/17 11:14 Ondansetron HCl (Zofran Inj) 4 mg Q6H PRN IV 04/16/17 11:15 05/16/17 11:14 04/16/17 11:36 4 MG Morphine Sulfate (MoRPHine SULFATE INJ) 2 mg Q30M PRN IV 04/16/17 11:15 04/30/17 11:14 Atenolol (Tenormin Tab) 12.5 mg DAILY PO 04/17/17 09:00 05/17/17 08:59 04/17/17 07:42 12.5 MG Atorvastatin Calcium (Lipitor Tab) 20 mg HS PO 04/16/17 21:00 05/16/17 20:59 04/16/17 20:56 20 MG Duloxetine HCl (Cymbalta Cap) 60 mg QAM PO 04/17/17 09:00 05/17/17 08:59 04/17/17 07:41 60 MG Famotidine (Pepcid Tab) 20 mg HS PO 04/16/17 21:00 05/16/17 20:59 04/16/17 20:57 20 MG Fludrocortisone Acetate (Florinef Tab) 0.1 mg BID PO 04/16/17 21:00 05/16/17 20:59 04/17/17 07:43 0.1 MG Salmeterol Xinafoate/ Fluticasone (Advair Diskus 250/50 Inh) 1 puff BID INH 04/16/17 21:00 05/16/17 20:59 04/17/17 07:40 1 PUFF Fluticasone Propionate (Flonase Nasal Tabiona) 2 sprays DAILY NA 04/17/17 09:00 05/17/17 08:59 Gabapentin (Neurontin Tab) 800 mg TID PO 04/16/17 21:00 05/16/17 20:59 04/17/17 07:43 800 MG Guaifenesin (Mucinex Contr Rel Tab) 1,200 mg Q12 PO 04/16/17 21:00 05/16/17 20:59 04/16/17 20:57 1,200 MG Hydrocortisone (Cortef Tab) 40 mg BID PO 04/16/17 21:00 05/16/17 20:59 04/17/17 07:39 40 MG Albuterol/ Ipratropium (Combivent Respimat Inh) 2 puffs QID INH 04/16/17 21:00 05/16/17 20:59 04/17/17 07:40 2 PUFFS Levalbuterol (Xopenex 0.63 Mg/ 3 Ml Neb) 0.63 mg Q4R PRN INH 04/16/17 11:30 05/16/17 11:29 Lidocaine (Lidoderm Patch 5%) 1 patch QAM TD 04/16/17 13:30 05/16/17 13:29 04/17/17 07:42 1 PATCH Magnesium Oxide (Mag-Ox Tab) 400 mg BID PO 04/16/17 21:00 05/16/17 20:59 04/17/17 07:43 400 MG Methenamine Hippurate (Urex Tab) 1 gm HS PO 04/16/17 21:00 04/26/17 20:59 04/16/17 20:56 1 GM Oxycodone HCl (Oxycontin Tab) 15 mg Q12 PO 04/16/17 21:00 04/30/17 20:59 04/17/17 07:39 15 MG Simethicone (Mylicon Chew Tab) 80 mg QID PRN PO 04/16/17 11:30 05/16/17 11:29 Tamsulosin HCl (Flomax Cap) 0.4 mg HS PO 10/3/17 21:00 05/16/17 20:59 04/16/17 20:56 0.4 MG Miscellaneous Information (Order Awaiting Action) 1 ea QS N/A 04/16/17 16:00 05/16/17 15:59 Pantoprazole Sodium (Protonix Tab) 40 mg QAM PO 04/17/17 09:00 05/17/17 08:59 04/17/17 07:41 40 MG Miscellaneous Information (Order Awaiting Action) 1 ea QS N/A 04/16/17 16:00 05/16/17 15:59 Miscellaneous (Remove Lidoderm Patch) 1 ea DAILY@21 N/A 04/16/17 21:00 05/16/17 20:59 04/16/17 20:54 1 EA Insulin Aspart (novoLOG ASPART) SLIDING SCALE G... Q6 SC 04/16/17 18:00 05/16/17 17:59 Glucose (Glucose 40% Gel) 15-30 GRAMS 15 GRAMS... UD PRN PO 04/16/17 14:00 05/16/17 13:59 Glucose (Glucose Chew Tab) 4-8 Tablets 4 Tabl... UD PRN PO 04/16/17 14:00 05/16/17 13:59 Dextrose (Dextrose 50% 50ML Syringe) 25-50ML OF 50% DW IV FOR... UD PRN IV 04/16/17 14:00 05/16/17 13:59 Glucagon (Glucagon Inj) 1 mg UD PRN SQ 04/16/17 14:00 05/16/17 13:59 Objective Vital Signs Date Time Temp Pulse Resp B/P (MAP) Pulse Ox O2 Delivery O2 Flow Rate FiO2 04/17/17 08:00 Nasal Cannula 2.0 04/17/17 07:41 36.9 88 22 107/67 (80) 95 Room Air 04/17/17 04:16 36.7 86 21 99/62 (74) 100 Nasal Cannula 2.0 04/17/17 04:00 Nasal Cannula 2.0 04/17/17 00:00 Nasal Cannula 2.0 04/16/17 23:25 36.8 80 21 102/66 (78) 100 Nasal Cannula 2.0 04/16/17 20:00 Room Air 04/16/17 19:39 36.8 88 18 124/63 (83) 96 04/16/17 16:30 36.8 89 14 112/67 97 04/16/17 16:00 Room Air 04/16/17 15:30 36.7 91 14 94/61 95 04/16/17 14:29 36.3 83 18 119/76 95 04/16/17 13:59 36.5 86 16 105/74 98 04/16/17 13:23 36.4 84 16 99/65 96 04/16/17 12:26 36.6 87 18 115/76 98 04/16/17 11:56 36.6 88 18 110/78 96 04/16/17 11:41 04/16/17 11:38 36.8 88 17 132/77 95 Physical Exam General Appearance: WD/WN, no apparent distress, + obese Eyes: normal inspection, PERRL, EOMI Neck: supple, no JVD, trachea midline Respiratory/Chest: normal breath sounds, no respiratory distress, no accessory muscle use Cardiovascular: regular rate, rhythm, no gallop, no murmur Abdomen: normal bowel sounds, non tender, soft, + pertinent finding (Rectal exam - small ext hemorrhoids, int exam w/o obvious mass, scant amt of dried dark red blood specks, no stools. ) Extremities: normal inspection, no pedal edema, no calf tenderness Neurologic/Psych: alert, normal mood/affect, oriented x 3 Skin: normal color, no jaundice, no rash Laboratory Results Last 24 Hours Test 04/16/17 17:57 04/16/17 18:11 04/16/17 23:40 04/17/17 00:03 Hemoglobin 8.8 g/dL 7.8 g/dL Lactic Acid Level 1.4 mmol/L Amylase Level 25 U/L Bedside Glucose 140 mg/dl 137 mg/dl Test 04/17/17 06:09 04/17/17 06:11 Bedside Glucose 146 mg/dl Hemoglobin 7.7 g/dL Assessment and Plan Patient is a 86 year old male admitted for lethargy, previously having low appetite, c/o abd pain, and found to have BRBPR in custodial. He was noted to be anemic w Hgb 6, first unit of PRBC transfusion running. He was on Coumadin for DVT, INR 4.6, had been given Vit K and K Centra in ED. DDX: diverticular, hemorrhoidal, AVM bleeding, infectious colitis. 2U PRBC transfused, Hgb 6.5 to 8.8 dropped overnight to 7s. No rectal bleeding, also he denies any abd pain, n/v. Plan - Monitor H/H and transfuse prn - Recheck PT/INR Will follow and re-eval tomorrow to see if any endoscopic evaluation is indicated. Given his history of recurrent aspiration pneumonia, would prefer to avoid procedures which would require sedation unless emergent or has significant benefits. -> will defer endoscopies given no more active rectal bleeding noted. - ST eval for diet recs given hx of recurrent aspiration pneumonia - Check stool cx and Cdiff if diarrhea.
[2017-04-17 12:12] LABS: PROTHROMBIN TIME (PATIENT) 10.7 SECONDS (9.0-12.0)
[2017-04-17 13:34] LABS: HEMATOCRIT 23.9 % (42-52)
[2017-04-17] MEDS ORDERED: NURSING VERBAL MED ORDER ONE (14:30)
--- NOTE | 2017-04-17 16:00 | Progress Note ---
Subjective Date of Service: Apr 17, 2017. Subjective Pt evaluation today including: conversation w/ patient, physical exam, chart review, lab review, review of studies, review of inpatient medication list Resting in bed comfortably No distress noted at this time No further bleeding appreciated Problem List Medical Problems: (1) Acute on chronic renal failure Status: Acute (2) Anemia Status: Acute (3) Coagulopathy Status: Acute (4) Confusion Status: Acute (5) Dehydration Status: Acute (6) Fever Status: Acute (7) GI bleed Status: Acute (8) Hypoglycemia Status: Acute (9) Hypotension Status: Acute (10) Hypoxia Status: Acute (11) Hypoxia Status: Acute (12) Influenza A Status: Acute (13) Malfunction of Ball catheter Status: Acute (14) Reactive airway disease Status: Acute (15) Respiratory distress Status: Acute Review of Systems Constitutional: No fever, No chills, No sweats, No weakness Eyes: No worsening of vision, No eye pain, No redness, No discharge Respiratory: No cough, No sputum, No wheezing, No shortness of breath Cardiac: No chest pain, No orthopnea, No PND, No edema Abdomen: No pain, No nausea, No vomiting, No diarrhea, No GI bleeding Musculoskeletal: No joint pain, No muscle pain, No swelling, No calf pain Male : No dysuria, No urinary frequency, No incontinence, No slowing stream Neurologic: No memory loss, No paralysis, No weakness, No numbness/tingling Psychiatric: No depression symptoms, No anhedonism, No anxiety, No insomnia Endo: No fatigue, No excessive thirst Skin: No rash, No itch Objective Vital Signs Date Time Temp Pulse Resp B/P (MAP) Pulse Ox O2 Delivery O2 Flow Rate FiO2 04/17/17 12:00 Nasal Cannula 2.0 04/17/17 11:58 36.5 71 22 100/63 (75) 99 Nasal Cannula 2.0 04/17/17 08:00 Nasal Cannula 2.0 04/17/17 07:41 36.9 88 22 107/67 (80) 95 Room Air 04/17/17 04:16 36.7 86 21 99/62 (74) 100 Nasal Cannula 2.0 04/17/17 04:00 Nasal Cannula 2.0 04/17/17 00:00 Nasal Cannula 2.0 04/16/17 23:25 36.8 80 21 102/66 (78) 100 Nasal Cannula 2.0 04/16/17 20:00 Room Air 04/16/17 19:39 36.8 88 18 124/63 (83) 96 04/16/17 16:30 36.8 89 14 112/67 97 04/16/17 16:00 Room Air Physical Exam General Appearance: WD/WN, no apparent distress Eyes: normal inspection, PERRL, EOMI, sclerae normal Neck: supple, no adenopathy, thyroid normal, no JVD Respiratory/Chest: chest non-tender, lungs clear, normal breath sounds, no respiratory distress Cardiovascular: regular rate, rhythm, no edema, no gallop, no JVD Abdomen: normal bowel sounds, non tender, soft, no organomegaly Extremities: normal range of motion, non-tender, normal inspection, no pedal edema 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: no motor/sensory deficits, alert, normal mood/affect, oriented x 3 Laboratory Results Last 24 Hours Test 04/16/17 17:57 04/16/17 18:11 04/16/17 23:40 04/17/17 00:03 Hemoglobin 8.8 g/dL 7.8 g/dL Lactic Acid Level 1.4 mmol/L Amylase Level 25 U/L Bedside Glucose 140 mg/dl 137 mg/dl Test 04/17/17 06:09 04/17/17 06:11 04/17/17 11:10 04/17/17 11:54 Bedside Glucose 146 mg/dl 129 mg/dl Hemoglobin 7.7 g/dL Prothrombin Time 10.7 SECONDS Prothromb Time International Ratio 1.0 Test 04/17/17 13:23 Hemoglobin 7.6 g/dL Hematocrit 23.9 % Assessment and Plan 86 y/o M w/Hx COPD, CAD, CKD 3-4, DM, chronic aspiration, adrenal insufficiency , recurrent PNM, recurrent UTIs, history of DVT on Coumadin. Resides in a nursing facility. Pt has been admitted to the hospital 4 x this yr for pneumonia due to aspiration. Over the past day he has developed diffuse lower quadrant abdominal pain, nausea in addition to BRBPR. He denies CP, SOB, cough , dysuria. He does state that 2 days ago he had hematuria which resolved spontaneously. On arrival to the ER the pt was hypotensive with an SBP in the 80s. Initial labs were notable for an INR of 4.5 and a Hemoglobin of 6.9 from a baseline of 11. He received Vitamin K and K Centra in the ER. GI bleed in setting of acute anemia - no clear abnormalities noted on CT abdomen. Abdominal pain is chronic and noted on previous admissions without etiology. hg in the 7s on rechecks. Recheck this evening as well. No further blood in stools noted. Pt is asymptomatic at this time Diastolic CHF is mentioned in the record as is cor pulmonale although we do not have echo confirmation. Echo was normal in 2015. He does have chronic edema however and will need frequent volume assessment as he may be prone to volume overload. CKD - 3-4 - creat is at baseline. We have held his AM diuretics and provided gentle hydration when transfusions are complete due to hypotension. COPD - no change in 02 requirements or wheezing on exam - will receive duonebs, PRN Xopenex. Steroids are not indicated at present although he will receive Cortef for adrenal insufficiency. Adrenal insufficiency - will continue fludrocortisone and Cortef - although his low BP may be due to blood loss, we have provided a stress dose of Cortef which can be continued if his BP does not stabilize following transfusion. CAD - extensive LAD stenting - no evidence of ACS - cont B opal with parameters if BP stable. Cont statin - ASA and Plavix held in setting of acute bleed. History of DVT - pt is on Coumadin normally which has been reversed - SCDs applied. Reported hematuria 2 days prior - current UA is negative for occult blood or infection Full code - SCDs
[2017-04-17 19:00] LABS: HEMATOCRIT 24.8 % (42-52)
[2017-04-17] MEDS ORDERED: DOCUSATE SODIUM 100 MG CAP PO PRN (20:00)
[2017-04-17] MEDS: TAMSULOSIN HCL 0.4 MG CAP PO SCH (21:33)
[2017-04-17] MEDS: ATORVASTATIN 20 MG TAB PO SCH (21:33)
[2017-04-17] MEDS: METHENAMINE HIPPURATE 1 GM TAB PO SCH (21:34)
[2017-04-17] MEDS: FAMOTIDINE 20 MG TAB PO SCH (21:34)
[2017-04-18] VITALS (10 sets, daily range): BP systolic 93–112; BP diastolic 54–72; PULSE 65–73; TEMP 36.5–37; O2SAT 90–100
[2017-04-18] MEDS: FLUDROCORTISONE ACETATE 0.1 MG TAB PO SCH ×2 (08:38→19:52)
[2017-04-18] MEDS: INSULIN ASPART 100 UNITS/ML 3 ML PEN SC SCH ×4 (08:38→20:09)
[2017-04-18] MEDS: MAGNESIUM OXIDE 400 MG TAB PO SCH ×2 (08:38→19:56)
[2017-04-18] MEDS: DULOXETINE HCL 60 MG CAP PO SCH (08:39)
[2017-04-18] MEDS: GUAIFENESIN 600 MG TABCR PO SCH ×2 (08:39→19:52)
[2017-04-18] MEDS: HYDROCORTISONE 10 MG TAB PO SCH ×2 (08:39→19:56)
[2017-04-18] MEDS: GABAPENTIN 800 MG TAB PO SCH ×3 (08:39→19:52)
[2017-04-18] MEDS: PANTOprazole SOD 40 MG TAB PO SCH (08:39)
[2017-04-18] MEDS: FLUTICASONE/SALMETEROL 250/50 (ADVAIR) 14 PUFF/1 INHALER INH SCH ×2 (08:40→19:51)
[2017-04-18] MEDS: IPRATROPIUM BROMIDE/ALBUTEROL respimat INH INH SCH ×4 (08:40→19:57)
[2017-04-18] MEDS: FLUTICASONE PROPIONATE NA SPR 16 GM BTL SCH (08:40)
[2017-04-18] MEDS: DUTASTERIDE 0.5MG PO SCH ×2 (08:42)
[2017-04-18] MEDS: LIDODERM (LIDOCAINE) PATCH 5% TD SCH (08:42)
[2017-04-18 08:46] LABS: BASO % 0.2 %; BASO ABS # 0.01 K/uL (0-0.2); EOS % 0.7 %; HEMATOCRIT 26.1 % (42-52); IG% 0.5 %; LYMPH % 14.4 %; LYMPH ABS # 0.86 K/uL (1.2-3.4); MEAN CELL VOLUME 88.5 fL (80-100); MEAN CORPUSCULAR HEMOGLOBIN 26.8 pg (25-34); MEAN CORPUSCULAR HGB CONC 30.3 g/dl (32-36); MEAN PLATELET VOLUME 9.7 fL (7.4-10.4); MONO % 12.9 %; NEUT % 71.3 %; PLATELET COUNT 186 K/uL (130-400); RED BLOOD COUNT 2.95 M/uL (4.7-6.1); WHITE BLOOD COUNT 5.98 K/uL (4.8-10.8)
[2017-04-18] MEDS: OXYCODONE HCL 15 MG TABCR (OXYCONTIN) PO SCH ×2 (08:46→19:51)
[2017-04-18] MEDS: ONDANSETRON INJ 2 MG/ML 2 ML VIAL IV PRN (09:15)
[2017-04-18 09:27] LABS: BUN/CREATININE RATIO 14.9 (10-20); CALCIUM 8.4 mg/dl (8.5-10.1); CREATININE 1.7 mg/dl (0.60-1.40); POTASSIUM 3.7 mmol/L (3.5-5.1)
[2017-04-18 09:47] LABS: ANISOCYTOSIS PRESENT; COMPLETE YES; HYPOCHROMIA PRESENT; POLYCHROMASIA 1+
[2017-04-18 10:38] LABS: HEMATOCRIT 23.3 % (42-52)
--- NOTE | 2017-04-18 10:57 | Progress Note ---
Progress Note Date of Service Apr 18, 2017. Progress Note GI quick note: Pt seen for abd pain, rectal bleeding, and anemia on admission. Was on Coumadin for DVTs, INR >4 on admission, reversed w K Centra and Vit K yesterday it was 1. He hasn't had any BMs since admitted, H/H stable around 7 after 2U PRBC. This AM he had small solid stools w bright red blood in commode. He denies any abd pain, + nausea, no vomiting, no rectal pain. Labs, VS reviewed. Repeat H/H 7.08/06, similar as this AM's labs. Discussed w Dr. Miller, we'll go ahead and prep him this evening for colonoscopy eval tomorrow to r/o source or lower GI bleeding since he likely would be restarted back on Coumadin. Last colonoscopy in 2013 showed severe diverticulosis and adenomatous polyp. May have CL diet today, but keep NPO after midnight. Monitor H/H and transfuse prn.
--- NOTE | 2017-04-18 16:00 | Progress Note ---
Subjective Date of Service: Apr 18, 2017. Subjective Pt evaluation today including: conversation w/ patient, physical exam, chart review, lab review, review of studies, review of inpatient medication list Pt reports general malaise Problem List Medical Problems: (1) Acute on chronic renal failure Status: Acute (2) Anemia Status: Acute (3) Coagulopathy Status: Acute (4) Confusion Status: Acute (5) Dehydration Status: Acute (6) Fever Status: Acute (7) GI bleed Status: Acute (8) Hypoglycemia Status: Acute (9) Hypotension Status: Acute (10) Hypoxia Status: Acute (11) Hypoxia Status: Acute (12) Influenza A Status: Acute (13) Malfunction of Ball catheter Status: Acute (14) Reactive airway disease Status: Acute (15) Respiratory distress Status: Acute Review of Systems Constitutional: + weakness, + fatigue, No fever, No chills, No sweats, No weight loss ENT: No hearing loss, No unusual epistaxis, No nasal symptoms, No sore throat Respiratory: No cough, No sputum, No wheezing, No shortness of breath, No dyspnea on exertion Cardiac: No chest pain, No orthopnea, No PND, No edema, No claudication Abdomen: No pain, No nausea, No vomiting, No diarrhea, No constipation Musculoskeletal: No joint pain, No muscle pain, No swelling, No calf pain Male : No dysuria, No urinary frequency, No incontinence, No nocturia more than once/night Neurologic: No memory loss, No paralysis, No weakness, No numbness/tingling Psychiatric: No depression symptoms, No anhedonism, No anxiety, No insomnia Endo: No fatigue, No excessive thirst Skin: No rash, No itch Objective Vital Signs Date Time Temp Pulse Resp B/P (MAP) Pulse Ox O2 Delivery O2 Flow Rate FiO2 04/18/17 15:14 37.0 65 18 93/54 (67) 98 Nasal Cannula 3.0 04/18/17 12:00 93 Nasal Cannula 2.0 04/18/17 11:48 36.7 67 20 94/54 (67) 94 Room Air 04/18/17 08:00 93 Nasal Cannula 2.0 04/18/17 07:31 36.5 69 20 109/72 (84) 90 Nasal Cannula 2.0 04/18/17 04:12 36.5 68 18 101/59 (73) 94 Nasal Cannula 2.0 04/18/17 04:02 Nasal Cannula 2.0 04/18/17 00:02 Nasal Cannula 2.0 04/17/17 23:08 37.0 77 20 105/65 (78) 94 Nasal Cannula 2.0 04/17/17 20:00 Nasal Cannula 2.0 04/17/17 19:25 37.2 69 18 93/54 (67) 96 Nasal Cannula 2.0 04/17/17 16:00 Room Air Physical Exam General Appearance: WD/WN, no apparent distress Eyes: normal inspection, PERRL, EOMI, sclerae normal Neck: supple, no adenopathy, thyroid normal, no JVD Respiratory/Chest: chest non-tender, lungs clear, normal breath sounds, no respiratory distress Cardiovascular: regular rate, rhythm, no edema, no gallop, no JVD Abdomen: normal bowel sounds, non tender, soft, no organomegaly Extremities: normal range of motion, non-tender, normal inspection, no pedal edema 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: no motor/sensory deficits, alert, normal mood/affect, oriented x 3 Laboratory Results Last 24 Hours Test 04/17/17 16:41 04/17/17 18:49 04/17/17 20:05 04/18/17 06:49 Bedside Glucose 148 mg/dl 192 mg/dl 207 mg/dl Hemoglobin 7.8 g/dL Hematocrit 24.8 % Test 04/18/17 08:23 04/18/17 10:16 04/18/17 11:30 White Blood Count 5.98 K/uL Red Blood Count 2.95 M/uL Hemoglobin 7.9 g/dL 7.1 g/dL Hematocrit 26.1 % 23.3 % Mean Corpuscular Volume 88.5 fL Mean Corpuscular Hemoglobin 26.8 pg Mean Corpuscular Hemoglobin Concent 30.3 g/dl Platelet Count 186 K/uL Mean Platelet Volume 9.7 fL Neutrophils (%) (Auto) 71.3 % Lymphocytes (%) (Auto) 14.4 % Monocytes (%) (Auto) 12.9 % Eosinophils (%) (Auto) 0.7 % Basophils (%) (Auto) 0.2 % Neutrophils # (Auto) 4.27 K/uL Lymphocytes # (Auto) 0.86 K/uL Monocytes # (Auto) 0.77 K/uL Eosinophils # (Auto) 0.04 K/uL Basophils # (Auto) 0.01 K/uL RDW Standard Deviation 56.9 fL RDW Coefficient of Variation 17.8 % Immature Granulocyte % (Auto) 0.5 % Immature Granulocyte # (Auto) 0.03 K/uL Nucleated RBC Absolute Count (auto) 0.05 K/uL Nucleated Red Blood Cells % 0.8 % Polychromasia 1+ Hypochromasia PRESENT Anisocytosis PRESENT Sodium Level 140 mmol/L Potassium Level 3.7 mmol/L Chloride Level 104 mmol/L Carbon Dioxide Level 30 mmol/L Anion Gap 6.0 mmol/L Blood Urea Nitrogen 25 mg/dl Creatinine 1.70 mg/dl Est Creatinine Clear Calc Drug Dose 39.6 ml/min Estimated GFR () 41.4 Estimated GFR (Non- 35.7 BUN/Creatinine Ratio 14.9 Random Glucose 179 mg/dl Calcium Level 8.4 mg/dl Bedside Glucose 215 mg/dl Assessment and Plan 86 y/o M w/Hx COPD, CAD, CKD 3-4, DM, chronic aspiration, adrenal insufficiency , recurrent PNM, recurrent UTIs, history of DVT on Coumadin. Resides in a nursing facility. Pt has been admitted to the hospital 4 x this yr for pneumonia due to aspiration. Over the past day he has developed diffuse lower quadrant abdominal pain, nausea in addition to BRBPR. He denies CP, SOB, cough , dysuria. He does state that 2 days ago he had hematuria which resolved spontaneously. On arrival to the ER the pt was hypotensive with an SBP in the 80s. Initial labs were notable for an INR of 4.5 and a Hemoglobin of 6.9 from a baseline of 11. He received Vitamin K and K Centra in the ER. GI bleed in setting of acute anemia - no clear abnormalities noted on CT abdomen. Abdominal pain is chronic and noted on previous admissions without etiology. hg in the 7s on rechecks. GI consulted and agree with colonoscopy in AM Diastolic CHF is mentioned in the record as is cor pulmonale although we do not have echo confirmation. Echo was normal in 2015. He does have chronic edema however and will need frequent volume assessment as he may be prone to volume overload. CKD - 3-4 - creat is at baseline. We have held his AM diuretics and provided gentle hydration when transfusions are complete due to hypotension. COPD - no change in 02 requirements or wheezing on exam - will receive duonebs, PRN Xopenex. Steroids are not indicated at present although he will receive Cortef for adrenal insufficiency. Adrenal insufficiency - will continue fludrocortisone and Cortef - although his low BP may be due to blood loss, we have provided a stress dose of Cortef which can be continued if his BP does not stabilize following transfusion. CAD - extensive LAD stenting - no evidence of ACS - cont B opal with parameters if BP stable. Cont statin - ASA and Plavix held in setting of acute bleed. History of DVT - pt is on Coumadin normally which has been reversed - SCDs applied. Reported hematuria 2 days prior - current UA is negative for occult blood or infection Full code - SCDs
[2017-04-18] MEDS ORDERED: LAVAGE SOLUTION 4000ML PO SCH (17:00)
[2017-04-18 17:58] LABS: HEMATOCRIT 23.4 % (42-52)
[2017-04-18] MEDS: METHENAMINE HIPPURATE 1 GM TAB PO SCH (19:55)
[2017-04-18] MEDS: TAMSULOSIN HCL 0.4 MG CAP PO SCH (19:57)
[2017-04-18] MEDS: FAMOTIDINE 20 MG TAB PO SCH (19:57)
[2017-04-18] MEDS: ATORVASTATIN 20 MG TAB PO SCH (19:58)
[2017-04-18 22:16] LABS: HEMATOCRIT 25.4 % (42-52)
[2017-04-19] VITALS (12 sets, daily range): BP systolic 93–123; BP diastolic 50–74; PULSE 68–87; TEMP 36–36.9; O2SAT 92–99
[2017-04-19] MEDS: INSULIN ASPART 100 UNITS/ML 3 ML PEN SC SCH ×4 (07:00→21:14)
[2017-04-19 07:17] LABS: HYPERSEGMENTED POLYS 1+
[2017-04-19 08:48] LABS: BASO % 0.2 %; BASO ABS # 0.01 K/uL (0-0.2); EOS % 1.7 %; HEMATOCRIT 23.4 % (42-52); IG% 0.9 %; LYMPH % 21.4 %; MEAN CORPUSCULAR HEMOGLOBIN 27.4 pg (25-34); MEAN CORPUSCULAR HGB CONC 31.2 g/dl (32-36); MONO % 16.5 %; NEUT % 59.3 %; PLATELET COUNT 148 K/uL (130-400); RED BLOOD COUNT 2.66 M/uL (4.7-6.1); WHITE BLOOD COUNT 4.68 K/uL (4.8-10.8)
[2017-04-19] MEDS: IPRATROPIUM BROMIDE/ALBUTEROL respimat INH INH SCH ×4 (09:00→21:04)
[2017-04-19 09:11] LABS: BUN/CREATININE RATIO 15.8 (10-20); CREATININE 1.5 mg/dl (0.60-1.40)
[2017-04-19] MEDS ORDERED: LIDOCAINE HCL 2% 2 ML VIAL (20MG/ML) ONE (09:39)
[2017-04-19] MEDS ORDERED: PROPOFOL IV EMULSION 10 MG/ML 20 ML VIAL IV ONE (09:39)
[2017-04-19] MEDS ORDERED: ALBUT/IPRATROP 3MG/0.5MG NEB 3 ML VIAL INH ONE (09:45)
--- NOTE | 2017-04-19 09:47 | Endo History and Physical ---
History & Physical Date of Service: Apr 19, 2017. Chief Complaint: painless rectal bleeding on coumadin with supratherapeutic INR Referring Physician: hospitalist History of Present Illness as noted above Past Medical History Reflux, Hypertension, COPD, [place] Past Surgical History Hx Cardiac Surgery: Yes (stents) Hx Abdominal Surgery: Yes (Appendectomy) Hx Post-Op Nausea and Vomiting: No Hx Cancer Surgery: No Hx Thoracic Surgery: No Hx Orthopedic: No Hx Urinary Tract Surgery: No Social History Smoking Status: Former Smoker Hx Substance Use: No Hx Alcohol Use: No Allergies Coded Allergies: No Known Allergies (Unverified , 04/16/17) Current Medications Reported Home Medications Medications Dose Route/Sig Max Daily Dose Days Date Category Dose Instructions Zaroxolyn (Metolazone) 2.5 Mg Tab 2.5 Mg PO DAILY PRN 04/16/17 Reported 3 LBS IN 24HRS OR 5LBS IN 7 DAYS Coumadin (Warfarin Sodium) 2 Mg Tab 2 Mg PO HS 04/16/17 Reported Oxycontin (Oxycodone Hcl) 15 Mg Tab 15 Mg PO Q12 04/16/17 Reported Cortef (Hydrocortisone) 20 Mg Tab 40 Mg PO BID 04/16/17 Reported Florinef (Fludrocortisone Acetate) 0.1 Mg Tab 0.1 Mg PO BID 04/16/17 Reported Advair Diskus 250/50 60 Dose (Fluticasone Prop/Salmeterol) 1 Ea Aerp 1 Puff INH BID 04/16/17 Reported B-12 (Cyanocobalamin) 1,000 Mcg Tab 1,000 Mcg PO QAM 04/16/17 Reported Cymbalta (Duloxetine Hcl) 60 Mg Cap 60 Mg PO QAM 04/16/17 Reported Oxygen Gas 1 Liter NA PRN 03/13/17 Reported Ciclodan (Ciclopirox) 8 % Idania 1 Appln TOP QPM 03/13/17 Reported apply penlac 8% and ciclopirox 8% solution topically to thick finger and toenails once nightly Methenamine Hippurate 1 Gm Tab 1 Gm PO HS 03/01/17 Reported Novolog Mix 70/30 (Insulin Aspart Prota 70%/Aspart 30%) Susp 5 Units SQ QPM 03/01/17 Reported Novolog Mix 70/30 (Insulin Aspart Protamine & Asp) 1 Inj Inj 20 Units SQ QAM 03/01/17 Reported Flomax (Tamsulosin Hcl) 0.4 Mg Cap 0.4 Mg PO HS 03/01/17 Reported Lantus (Insulin Glargine) 100 Unit/Ml Inj 55 Unit SQ HS 03/01/17 Reported Famotidine 20 Mg Tab 20 Mg PO HS 03/01/17 Reported Dutasteride 0.5 Mg Cap 0.5 Mg PO DAILY 03/01/17 Reported Atorvastatin Calcium (Atorvastatin) 20 Mg Tab 20 Mg PO HS 03/01/17 Reported Combivent Respimat (Ipratropium-Albuterol) 1 Aer Aer 1 Puff INH QID 03/01/17 Reported Gabapentin 800 Mg Tab 800 Mg PO TID 03/01/17 Reported Fiber Laxative (Fiber) Ea 1 Tab PO DAILY 03/01/17 Reported Miralax (Polyethylene Glycol 3350) 1 Pow Pow 17 Gm PO BID 11/07/16 Reported Gas-X (Simethicone) 80 Mg Chw 80 Mg PO QID PRN 11/07/16 Reported Aspercreme (Trolamine Salicylate) 10 % Lot 1 Appln TOP BID PRN 11/07/16 Reported Tenormin (Atenolol) 25 Mg Tab 12.5 Mg PO DAILY 10/22/16 Reported Tylenol (Acetaminophen) 500 Mg Tab 1,000 Mg PO Q12 10/06/16 Reported TAKE AT 0800 & 2000 Colace (Docusate Sodium) 100 Mg Cap 100 Mg PO BID 10/06/16 Reported Levalbuterol HCl (Levalbuterol) 0.63 Mg/3 Ml Nebu 1 Vial NEB Q4 PRN 10/06/16 Reported Mucinex Ext Rel (Guaifenesin) 600 Mg Tabcr 1,200 Mg PO Q12 10/06/16 Reported Torsemide 20 Mg Tab 60 Mg PO QAM 30 10/05/16 Rx Prilosec (Omeprazole) 20 Mg Capcr 20 Mg PO DAILY 10/01/16 Reported Therems M (Multiple Vitamins W/ Minerals) 1 Tab Tab 1 Tab PO DAILY 08/17/16 Reported Nitrostat (Nitroglycerin) 0.4 Mg Tab 1 Tab SL UD PRN 08/17/16 Reported Lidocaine 1 Patch Tdsy 1 Patch TD QAM 30 07/21/16 Rx to back pain Fluticasone Propionate 50 Mcg/Act Spr 2 Sprays NA DAILY 30 07/21/16 Rx Mag-Ox (Magnesium Oxide) 400 Mg Tab 400 Mg PO BID 07/14/16 Reported Systane Ultra (Polyethylene Glycol-Propylene) 1 Idania Idania 1 Drops OPB BID 07/14/16 Reported Aspirin Chewable (Aspirin) 81 Mg Chew 81 Mg PO DAILY 11/08/14 Reported Bisacodyl 5 Mg Tab 5 Mg PO BID 10/09/14 Reported Plavix (Clopidogrel Bisulfate) 75 Mg Tab 75 Mg PO DAILY 07/15/14 Reported Vital Signs Weight (Kilograms): 104.500 Height (Feet): 6 Height (Inches): 1.00 Date Time Temp Pulse Resp B/P (MAP) Pulse Ox O2 Delivery O2 Flow Rate FiO2 04/19/17 09:31 36.4 85 22 129/70 (89) 100 Nasal Cannula 2.0 04/19/17 08:00 Nasal Cannula 2.0 04/19/17 07:36 36.0 68 22 123/55 (77) 98 Nasal Cannula 2.0 04/19/17 04:00 Nasal Cannula 2.0 04/19/17 03:10 36.6 79 24 114/74 (87) 92 Nasal Cannula 2.0 04/19/17 00:00 Nasal Cannula 2.0 04/18/17 22:57 36.6 72 20 99/67 (78) 99 Nasal Cannula 2.0 04/18/17 19:45 Nasal Cannula 2.0 04/18/17 19:07 36.5 73 18 112/69 (83) 100 Nasal Cannula 3.0 04/18/17 17:30 107/61 (76) 04/18/17 16:00 93 Nasal Cannula 2.0 04/18/17 15:14 37.0 65 18 93/54 (67) 98 Nasal Cannula 3.0 04/18/17 12:00 93 Nasal Cannula 2.0 04/18/17 11:48 36.7 67 20 94/54 (67) 94 Room Air Physical Exam General Appearance: WD/WN, no apparent distress Assessment and Plan colonoscopy today. No blood with the prep
[2017-04-19 10:12] LABS: ANISOCYTOSIS PRESENT; COMPLETE YES; HYPOCHROMIA PRESENT; POLYCHROMASIA 1+
--- NOTE | 2017-04-19 10:41 | GI REPORT ---
Procedure Date: 04/19/2017 10:17 AM Procedure: Colonoscopy Indications: Hematochezia Medicines: Propofol per Anesthesia Complications: No immediate complications. Estimated Blood Loss: None Procedure: Pre-Anesthesia Assessment: - Prior to the procedure, a History and Physical was performed, and patient medications, allergies and sensitivities were reviewed. The patient's tolerance of previous anesthesia was reviewed. - The risks and benefits of the procedure and the sedation options and risks were discussed with the patient. All questions were answered and informed consent was obtained. - Patient identification and proposed procedure were verified prior to the procedure by the physician and the nurse. The procedure was verified in the pre-procedure area in the procedure room. - Mental Status Examination: alert and oriented. Airway Examination: normal oropharyngeal airway and neck mobility. Respiratory Examination: expiratory wheezes. CV Examination: normal. Abdominal Examination: bowel sounds present, abdomen soft and non-tender, no masses or organomegaly noted. - ASA Grade Assessment: IV - A patient with severe systemic disease that is a constant threat to life. After I obtained informed consent, the scope was passed under direct vision. Throughout the procedure, the patient's blood pressure, pulse, and oxygen saturations were monitored continuously. The scope was introduced through the anus with the intention of advancing to the cecum. The scope was advanced to the transverse colon before the procedure was aborted. Medications were given. The colonoscopy was performed without difficulty. The patient tolerated the procedure well. The quality of the bowel preparation was poor. Findings: The perianal and digital rectal examinations were normal. Pertinent negatives include normal sphincter tone and no palpable rectal lesions. Hematin (altered blood/luxkil-ngujle-ewda material) was found in the entire colon. Multiple small and large-mouthed diverticula were found in the sigmoid colon and in the descending colon. Impression: - Preparation of the colon was poor. - Old blood and stool in the entire examined colon. - Diverticulosis in the sigmoid colon and in the descending colon. Recommendation: - Return patient to hospital [facility] for ongoing care. - Follow H/H. - Monitor symptoms over the weekend and if H/H drops, consider repeating the prep on Saturday for a repeat colonoscopy Saturday. Gely Miller D.O. Gely Miller DO 04/19/2017 10:40:52 AM This report has been signed electronically. Note Initiated On: 04/19/2017 10:17 AM I attest to the content of the Intraoperative Record and orders documented therein, exceptions below
--- NOTE | 2017-04-19 10:48 | Anesthesiology Progress Note ---
Anesthesia Post Op Note Date & Time Apr 19, 2017 at 10:48 Vital Signs Pain Intensity: 0.0 Vital Signs Past 12 Hours Date Time Temp Pulse Resp B/P (MAP) Pulse Ox O2 Delivery O2 Flow Rate FiO2 04/19/17 10:38 75 22 102/58 (73) 100 Mask 2.0 04/19/17 09:45 85 18 92 Nasal Cannula 2.0 04/19/17 09:31 36.4 85 22 129/70 (89) 100 Nasal Cannula 2.0 04/19/17 08:00 Nasal Cannula 2.0 04/19/17 07:36 36.0 68 22 123/55 (77) 98 Nasal Cannula 2.0 04/19/17 04:00 Nasal Cannula 2.0 04/19/17 03:10 36.6 79 24 114/74 (87) 92 Nasal Cannula 2.0 04/19/17 00:00 Nasal Cannula 2.0 04/18/17 22:57 36.6 72 20 99/67 (78) 99 Nasal Cannula 2.0 Notes Mental Status: alert / awake / arousable, participated in evaluation Pt Amnestic to Procedure: Yes Nausea / Vomiting: adequately controlled Pain: adequately controlled Airway Patency, RR, SpO2: stable & adequate BP & HR: stable & adequate Hydration State: stable & adequate Anesthetic Complications: no major complications apparent
[2017-04-19] MEDS: MAGNESIUM OXIDE 400 MG TAB PO SCH ×3 (11:51→21:06)
[2017-04-19] MEDS: HYDROCORTISONE 10 MG TAB PO SCH ×3 (11:51→21:06)
[2017-04-19] MEDS: GABAPENTIN 800 MG TAB PO SCH ×4 (11:51→21:07)
[2017-04-19] MEDS: PANTOprazole SOD 40 MG TAB PO SCH (11:52)
[2017-04-19] MEDS: DULOXETINE HCL 60 MG CAP PO SCH (11:52)
[2017-04-19] MEDS: GUAIFENESIN 600 MG TABCR PO SCH ×3 (11:52→21:08)
[2017-04-19] MEDS: FLUDROCORTISONE ACETATE 0.1 MG TAB PO SCH ×3 (11:52→21:04)
[2017-04-19] MEDS: FLUTICASONE/SALMETEROL 250/50 (ADVAIR) 14 PUFF/1 INHALER INH SCH ×2 (11:53→21:04)
[2017-04-19] MEDS: DUTASTERIDE 0.5MG PO SCH ×2 (11:54)
[2017-04-19] MEDS: FLUTICASONE PROPIONATE NA SPR 16 GM BTL SCH (11:54)
[2017-04-19] MEDS: LIDODERM (LIDOCAINE) PATCH 5% TD SCH (11:55)
[2017-04-19] MEDS: OXYCODONE HCL 15 MG TABCR (OXYCONTIN) PO SCH ×3 (11:59→21:10)
[2017-04-19] MEDS ORDERED: POTASSIUM CHLORIDE 10 MEQ TABCR PO STA (14:52)
[2017-04-19 15:41] LABS: HEMATOCRIT 24.7 % (42-52)
--- NOTE | 2017-04-19 15:54 | Progress Note ---
Subjective Date of Service: Apr 19, 2017. Subjective Pt evaluation today including: conversation w/ patient, physical exam, chart review, lab review, review of studies, review of inpatient medication list Reports feeling less dizzy No abdominal, fevers or discomfort noted BM this AM Problem List Medical Problems: (1) Acute on chronic renal failure Status: Acute (2) Anemia Status: Acute (3) Coagulopathy Status: Acute (4) Confusion Status: Acute (5) Dehydration Status: Acute (6) Fever Status: Acute (7) GI bleed Status: Acute (8) Hypoglycemia Status: Acute (9) Hypotension Status: Acute (10) Hypoxia Status: Acute (11) Hypoxia Status: Acute (12) Influenza A Status: Acute (13) Malfunction of Ball catheter Status: Acute (14) Reactive airway disease Status: Acute (15) Respiratory distress Status: Acute Review of Systems Constitutional: + fatigue, No fever, No chills, No sweats, No weight loss, No weakness ENT: No hearing loss, No unusual epistaxis, No nasal symptoms, No sore throat Respiratory: No cough, No sputum, No wheezing, No shortness of breath, No dyspnea on exertion Cardiac: No chest pain, No orthopnea, No PND, No edema Abdomen: No pain, No nausea, No vomiting, No diarrhea, No constipation Musculoskeletal: No joint pain, No muscle pain, No swelling, No calf pain Male : No dysuria, No urinary frequency, No incontinence, No slowing stream Neurologic: No memory loss, No paralysis, No weakness, No numbness/tingling Psychiatric: No depression symptoms, No anhedonism, No anxiety Endo: No fatigue, No excessive thirst Skin: No rash, No itch Objective Vital Signs Date Time Temp Pulse Resp B/P (MAP) Pulse Ox O2 Delivery O2 Flow Rate FiO2 04/19/17 15:34 36.4 79 18 93/55 (68) 96 Nasal Cannula 2.0 04/19/17 12:00 Nasal Cannula 2.0 04/19/17 11:48 36.5 73 18 104/50 (68) 96 Nasal Cannula 2.0 04/19/17 11:39 36.2 73 20 108/50 (69) 96 Nasal Cannula 2.0 04/19/17 11:07 78 20 97/53 (68) 98 Nasal Cannula 2.0 04/19/17 10:52 70 20 104/55 (71) 100 Nasal Cannula 2.0 04/19/17 10:38 75 22 102/58 (73) 100 Mask 2.0 04/19/17 09:45 85 18 92 Nasal Cannula 2.0 04/19/17 09:31 36.4 85 22 129/70 (89) 100 Nasal Cannula 2.0 04/19/17 08:00 Nasal Cannula 2.0 04/19/17 07:36 36.0 68 22 123/55 (77) 98 Nasal Cannula 2.0 04/19/17 04:00 Nasal Cannula 2.0 04/19/17 03:10 36.6 79 24 114/74 (87) 92 Nasal Cannula 2.0 04/19/17 00:00 Nasal Cannula 2.0 04/18/17 22:57 36.6 72 20 99/67 (78) 99 Nasal Cannula 2.0 04/18/17 19:45 Nasal Cannula 2.0 04/18/17 19:07 36.5 73 18 112/69 (83) 100 Nasal Cannula 3.0 04/18/17 17:30 107/61 (76) 04/18/17 16:00 93 Nasal Cannula 2.0 Physical Exam General Appearance: WD/WN, no apparent distress Eyes: normal inspection, PERRL, EOMI, sclerae normal Neck: supple, no adenopathy, thyroid normal, no JVD Respiratory/Chest: chest non-tender, lungs clear, normal breath sounds, no respiratory distress Cardiovascular: no edema, no gallop, no JVD, no murmur Abdomen: normal bowel sounds, non tender, soft, no organomegaly Extremities: normal range of motion, non-tender, normal inspection, + pedal edema 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: no motor/sensory deficits, alert, normal mood/affect, oriented x 3 Laboratory Results Last 24 Hours Test 04/18/17 16:07 04/18/17 17:49 04/18/17 20:09 04/18/17 21:57 Bedside Glucose 189 mg/dl 153 mg/dl Hemoglobin 7.4 g/dL 7.7 g/dL Hematocrit 23.4 % 25.4 % Test 04/19/17 01:51 04/19/17 06:53 04/19/17 08:36 04/19/17 11:47 Hemoglobin 7.7 g/dL 7.3 g/dL Hematocrit 25.0 % 23.4 % Bedside Glucose 133 mg/dl 106 mg/dl White Blood Count 4.68 K/uL Red Blood Count 2.66 M/uL Mean Corpuscular Volume 88.0 fL Mean Corpuscular Hemoglobin 27.4 pg Mean Corpuscular Hemoglobin Concent 31.2 g/dl Platelet Count 148 K/uL Mean Platelet Volume 10.0 fL Neutrophils (%) (Auto) 59.3 % Lymphocytes (%) (Auto) 21.4 % Monocytes (%) (Auto) 16.5 % Eosinophils (%) (Auto) 1.7 % Basophils (%) (Auto) 0.2 % Neutrophils # (Auto) 2.78 K/uL Lymphocytes # (Auto) 1.00 K/uL Monocytes # (Auto) 0.77 K/uL Eosinophils # (Auto) 0.08 K/uL Basophils # (Auto) 0.01 K/uL RDW Standard Deviation 56.2 fL RDW Coefficient of Variation 17.8 % Immature Granulocyte % (Auto) 0.9 % Immature Granulocyte # (Auto) 0.04 K/uL Nucleated RBC Absolute Count (auto) 0.03 K/uL Nucleated Red Blood Cells % 0.6 % Polychromasia 1+ Hypochromasia PRESENT Anisocytosis PRESENT Sodium Level 141 mmol/L Potassium Level 3.0 mmol/L Chloride Level 102 mmol/L Carbon Dioxide Level 32 mmol/L Anion Gap 8.0 mmol/L Blood Urea Nitrogen 24 mg/dl Creatinine 1.50 mg/dl Est Creatinine Clear Calc Drug Dose 44.9 ml/min Estimated GFR () 48.2 Estimated GFR (Non- 41.6 BUN/Creatinine Ratio 15.8 Random Glucose 114 mg/dl Calcium Level 8.0 mg/dl Test 04/19/17 15:16 04/19/17 15:45 Hemoglobin 7.8 g/dL Hematocrit 24.7 % Assessment and Plan 86 y/o M w/Hx COPD, CAD, CKD 3-4, DM, chronic aspiration, adrenal insufficiency , recurrent PNM, recurrent UTIs, history of DVT on Coumadin. Resides in a nursing facility. Pt has been admitted to the hospital 4 x this yr for pneumonia due to aspiration. Over the past day he has developed diffuse lower quadrant abdominal pain, nausea in addition to BRBPR. He denies CP, SOB, cough , dysuria. He does state that 2 days ago he had hematuria which resolved spontaneously. On arrival to the ER the pt was hypotensive with an SBP in the 80s. Initial labs were notable for an INR of 4.5 and a Hemoglobin of 6.9 from a baseline of 11. He received Vitamin K and K Centra in the ER. GI bleed in setting of acute anemia - no clear abnormalities noted on CT abdomen. Abdominal pain is chronic and noted on previous admissions without etiology. Hg in the 7s on rechecks. GI consulted and agree with colonoscopy. Colonoscopy completed 04/19, no active bleeding noted. Hg improving at this time and pt remains asymptomatic. Diastolic CHF is mentioned in the record as is cor pulmonale although we do not have echo confirmation. Echo was normal in 2014. He does have chronic edema however and will need frequent volume assessment as he may be prone to volume overload. CKD - 3-4 - creat is at baseline. We have held his AM diuretics and provided gentle hydration when transfusions are complete due to hypotension. COPD - no change in 02 requirements or wheezing on exam - will receive duonebs, PRN Xopenex. Steroids are not indicated at present although he will receive Cortef for adrenal insufficiency. Adrenal insufficiency - will continue fludrocortisone and Cortef - although his low BP may be due to blood loss, we have provided a stress dose of Cortef which can be continued if his BP does not stabilize following transfusion. CAD - extensive LAD stenting - no evidence of ACS - cont B opal with parameters if BP stable. Cont statin - ASA and Plavix held in setting of acute bleed. Will restart on discharge DVT - Diagnosed in february 2017, pt is on coumadin normally which has been reversed, hesitant about restarting due to drop in hg in light of normal endoscopy. Pt has also almost completed 3 months of treatment. Reported hematuria 2 days prior - current UA is negative for occult blood or infection Full code - SCDs
[2017-04-19] MEDS ORDERED: WARFARIN SOD 5 MG TAB PO SCH (16:00)
[2017-04-19 16:36] LABS: PROTHROMBIN TIME (PATIENT) 10.7 SECONDS (9.0-12.0)
[2017-04-19] MEDS: METHENAMINE HIPPURATE 1 GM TAB PO SCH ×2 (21:00→21:09)
[2017-04-19] MEDS: ATORVASTATIN 20 MG TAB PO SCH ×2 (21:00→21:07)
[2017-04-19] MEDS: TAMSULOSIN HCL 0.4 MG CAP PO SCH ×2 (21:00→21:08)
[2017-04-19] MEDS: FAMOTIDINE 20 MG TAB PO SCH ×2 (21:00→21:09)
[2017-04-19] MEDS ORDERED: HALOPERIDOL LACTATE 5 MG/ML 1 ML VIAL IM STA (21:54)
[2017-04-19] MEDS ORDERED: HALOPERIDOL LACTATE 5 MG/ML 1 ML VIAL ONE (22:00)
[2017-04-19] MEDS: LEVALBUTEROL 0.63MG/3 ML NEB INH PRN (22:51)
[2017-04-19 23:40] LABS: ARTERIAL BLD GAS O2 SATURATION 89.1 % (90-95); ARTERIAL BLOOD GAS BASE EXCESS 5.1 mEq/L (-9-1.8); ARTERIAL BLOOD GAS HCO3 30 mmol/L (19-24); ARTERIAL BLOOD GAS PO2 62 mm/Hg (80-95); ARTERIAL BLOOD GAS pH 7.45 (7.35-7.45)
[2017-04-19 23:41] LABS: O2 ADMINISTRATION 7 L
[2017-04-19 23:42] LABS: ALLEN TEST POS (POS)
[2017-04-20] VITALS (16 sets, daily range): BP systolic 82–118; BP diastolic 49–68; PULSE 61–90; TEMP 36.4–37; O2SAT 92–100
[2017-04-20] MEDS ORDERED: AMPICILLIN/SULBACTAM SOD INJ 1,500 MG in SODIUM CHLORIDE 0.9% 100ML 100 ML IV SCH (00:30)
[2017-04-20] MEDS: LEVALBUTEROL 0.63MG/3 ML NEB INH PRN ×2 (02:03→20:38)
[2017-04-20] MEDS: AMPICILLIN/SULBACTAM SOD INJ 1,500 MG in SODIUM CHLORIDE 0.9% 100ML 100 ML IV SCH ×3 (05:44→17:28)
[2017-04-20] MEDS: INSULIN ASPART 100 UNITS/ML 3 ML PEN SC SCH ×4 (07:00→21:09)
[2017-04-20 07:03] LABS: MEAN CELL VOLUME 88.8 fL (80-100); MEAN CORPUSCULAR HEMOGLOBIN 26.6 pg (25-34); MEAN PLATELET VOLUME 10.1 fL (7.4-10.4); PLATELET COUNT 150 K/uL (130-400); RED BLOOD COUNT 2.59 M/uL (4.7-6.1); WHITE BLOOD COUNT 5.45 K/uL (4.8-10.8)
[2017-04-20 07:18] LABS: BASO % 0.4 %; BASO ABS # 0.02 K/uL (0-0.2); COMPLETE YES; EOS % 1.5 %; IG% 0.2 %; LYMPH % 17.1 %; LYMPH ABS # 0.93 K/uL (1.2-3.4); MONO % 16.1 %; NEUT % 64.7 %; POLYCHROMASIA 1+
[2017-04-20 07:20] LABS: BUN/CREATININE RATIO 11.7 (10-20); CREATININE 1.7 mg/dl (0.60-1.40); POTASSIUM 3.4 mmol/L (3.5-5.1)
--- NOTE | 2017-04-20 07:37 | DIAGNOSTIC IMAGING REPORT ---
CHEST ONE VIEW PORTABLE HISTORY: 86 years-old Male shortness of breath acute shortness of breath. COMPARISON: Chest radiograph 04/16/2017, chest CT 03/28/2017a TECHNIQUE: Portable upright AP view of the chest FINDINGS: Cardiac silhouette is again mildly enlarged. There is atherosclerosis of the aorta. Background emphysema. Previously described 1.5 cm nodule of the superior segment left upper lobe seen on comparison chest CT is again noted. There is mild pulmonary vascular congestion without overt pulmonary edema. There are progressive hazy bibasilar opacities noted with background interstitial coarsening compatible with scarring. Bones are grossly intact. IMPRESSION: 1. Mildly progressive hazy bibasilar opacities suggest atelectasis or pneumonia. 2. Emphysema. 3. 1.5 cm pulmonary nodule of the superior segment left lower lobe redemonstrated. The above report was generated using voice recognition software. It may contain grammatical, syntax or spelling errors. Electronically signed by: Jl Kelley M.D. 04/20/2017 7:36 AM Dictated Date/Time: 04/20/2017 7:34 AM
[2017-04-20] MEDS: IPRATROPIUM BROMIDE/ALBUTEROL respimat INH INH SCH ×4 (08:03→21:03)
[2017-04-20] MEDS: FLUTICASONE/SALMETEROL 250/50 (ADVAIR) 14 PUFF/1 INHALER INH SCH ×2 (08:03→21:00)
[2017-04-20] MEDS: MAGNESIUM OXIDE 400 MG TAB PO SCH ×2 (08:04→21:11)
[2017-04-20] MEDS: HYDROCORTISONE 10 MG TAB PO SCH ×2 (08:04→21:14)
[2017-04-20] MEDS: PANTOprazole SOD 40 MG TAB PO SCH ×2 (08:05→21:11)
[2017-04-20] MEDS: GUAIFENESIN 600 MG TABCR PO SCH ×2 (08:05→21:11)
[2017-04-20] MEDS: DULOXETINE HCL 60 MG CAP PO SCH (08:05)
[2017-04-20] MEDS: FLUDROCORTISONE ACETATE 0.1 MG TAB PO SCH ×2 (08:06→21:12)
[2017-04-20] MEDS: GABAPENTIN 800 MG TAB PO SCH ×3 (08:06→21:11)
[2017-04-20] MEDS: LIDODERM (LIDOCAINE) PATCH 5% TD SCH (08:07)
[2017-04-20] MEDS: DUTASTERIDE 0.5MG PO SCH ×2 (08:08)
[2017-04-20 08:16] LABS: PROTHROMBIN TIME (PATIENT) 10.4 SECONDS (9.0-12.0)
[2017-04-20] MEDS: OXYCODONE HCL 15 MG TABCR (OXYCONTIN) PO SCH ×2 (08:22→21:21)
[2017-04-20] MEDS: FLUTICASONE PROPIONATE NA SPR 16 GM BTL SCH (08:22)
--- NOTE | 2017-04-20 10:40 | Gastroenterology Progress Note ---
Progress Note Date of Service: Apr 20, 2017 Subjective Pt evaluation today including: conversation w/ patient States he feels very well this morning, was able to get over to the chair from the bed while I was in the room. He says his breathing has worsened but has not had any further bleeding. He apparently had sundowning last night and now is requiring a sitter in the room Medications Current Inpatient Medications Medications (Trade) Dose Ordered Sig/Cole Route Start Time Stop Time Status Last Admin Dose Admin Acetaminophen (Tylenol Tab) 650 mg Q4H PRN PO 04/16/17 11:15 05/16/17 11:14 Ondansetron HCl (Zofran Inj) 4 mg Q6H PRN IV 04/16/17 11:15 05/16/17 11:14 04/18/17 09:15 4 MG Morphine Sulfate (MoRPHine SULFATE INJ) 2 mg Q30M PRN IV 04/16/17 11:15 04/30/17 11:14 Atenolol (Tenormin Tab) 12.5 mg DAILY PO 04/17/17 09:00 05/17/17 08:59 04/20/17 08:04 12.5 MG Atorvastatin Calcium (Lipitor Tab) 20 mg HS PO 04/16/17 21:00 05/16/17 20:59 04/18/17 19:58 20 MG Duloxetine HCl (Cymbalta Cap) 60 mg QAM PO 04/17/17 09:00 05/17/17 08:59 04/20/17 08:05 60 MG Famotidine (Pepcid Tab) 20 mg HS PO 04/16/17 21:00 05/16/17 20:59 04/18/17 19:57 20 MG Fludrocortisone Acetate (Florinef Tab) 0.1 mg BID PO 04/16/17 21:00 05/16/17 20:59 04/20/17 08:06 0.1 MG Salmeterol Xinafoate/ Fluticasone (Advair Diskus 250/50 Inh) 1 puff BID INH 04/16/17 21:00 05/16/17 20:59 04/20/17 08:03 1 PUFF Fluticasone Propionate (Flonase Nasal [place]) 2 sprays DAILY NA 04/17/17 09:00 05/17/17 08:59 04/20/17 08:22 2 SPRAYS Gabapentin (Neurontin Tab) 800 mg TID PO 04/16/17 21:00 05/16/17 20:59 04/20/17 08:06 800 MG Guaifenesin (Mucinex Contr Rel Tab) 1,200 mg Q12 PO 04/16/17 21:00 05/16/17 20:59 04/20/17 08:05 1,200 MG Hydrocortisone (Cortef Tab) 40 mg BID PO 04/16/17 21:00 05/16/17 20:59 04/20/17 08:04 40 MG Albuterol/ Ipratropium (Combivent Respimat Inh) 2 puffs QID INH 04/16/17 21:00 05/16/17 20:59 04/20/17 08:03 2 PUFFS Levalbuterol (Xopenex 0.63 Mg/ 3 Ml Neb) 0.63 mg Q4R PRN INH 04/16/17 11:30 05/16/17 11:29 04/20/17 02:03 0.63 MG Lidocaine (Lidoderm Patch 5%) 1 patch QAM TD 04/16/17 13:30 05/16/17 13:29 04/20/17 08:07 1 PATCH Magnesium Oxide (Mag-Ox Tab) 400 mg BID PO 04/16/17 21:00 05/16/17 20:59 04/20/17 08:04 400 MG Methenamine Hippurate (Urex Tab) 1 gm HS PO 04/16/17 21:00 04/26/17 20:59 04/18/17 19:55 1 GM Oxycodone HCl (Oxycontin Tab) 15 mg Q12 PO 04/16/17 21:00 04/30/17 20:59 04/20/17 08:22 15 MG Simethicone (Mylicon Chew Tab) 80 mg QID PRN PO 04/16/17 11:30 05/16/17 11:29 Tamsulosin HCl (Flomax Cap) 0.4 mg HS PO 04/16/17 21:00 05/16/17 20:59 04/18/17 19:57 0.4 MG Miscellaneous Information (Order Awaiting Action) 1 ea QS N/A 04/16/17 16:00 05/16/17 15:59 Miscellaneous (Remove Lidoderm Patch) 1 ea DAILY@21 N/A 04/16/17 21:00 05/16/17 20:59 04/19/17 21:04 1 EA Glucose (Glucose 40% Gel) 15-30 GRAMS 15 GRAMS... UD PRN PO 04/16/17 14:00 05/16/17 13:59 Glucose (Glucose Chew Tab) 4-8 Tablets 4 Tabl... UD PRN PO 04/16/17 14:00 05/16/17 13:59 Dextrose (Dextrose 50% 50ML Syringe) 25-50ML OF 50% DW IV FOR... UD PRN IV 04/16/17 14:00 05/16/17 13:59 Glucagon (Glucagon Inj) 1 mg UD PRN SQ 04/16/17 14:00 05/16/17 13:59 Insulin Aspart (novoLOG ASPART) SLIDING SCALE G... ACHS SC 04/17/17 16:15 05/16/17 17:59 04/19/17 21:14 2 UNITS Dutasteride (Avodart) 0.5 mg DAILY PO 04/18/17 09:00 05/18/17 08:59 04/20/17 08:08 0.5 MG Docusate Sodium (coLACE CAP) 100 mg PRN PRN PO 04/17/17 20:00 05/17/17 19:59 04/17/17 22:25 100 MG Polyethylene Glycol/ Electrolytes (Golytely Soln) 1 dose UD PO 04/18/17 17:00 05/18/17 16:59 Ampicillin Sodium/ Sulbactam Sodium 1500 mg/Sodium Chloride 104 ml @ 200 mls/hr Q6H IV 04/20/17 06:00 04/27/17 05:59 04/20/17 05:44 200 MLS/HR Pantoprazole Sodium (Protonix Tab) 40 mg BID PO 04/21/17 09:00 05/21/17 08:59 UNV Objective Vital Signs Date Time Temp Pulse Resp B/P (MAP) Pulse Ox O2 Delivery O2 Flow Rate FiO2 04/20/17 06:53 36.8 74 16 100/62 (75) 98 4.0 04/20/17 04:00 100 Nasal Cannula 4.0 04/20/17 03:30 36.8 61 20 82/49 (60) 100 Nasal Cannula 4.0 04/20/17 02:03 88 20 96 Nasal Cannula 4.0 04/19/17 23:59 99 Mask 6.0 04/19/17 22:53 36.9 80 26 94/57 (69) 98 Mask 7.0 04/19/17 22:51 87 20 98 Mask 5.0 04/19/17 20:00 96 Nasal Cannula 2.0 04/19/17 19:57 36.4 79 22 100/54 (69) 93 Nasal Cannula 2.0 04/19/17 16:00 96 Nasal Cannula 2.0 04/19/17 15:34 36.4 79 18 93/55 (68) 96 Nasal Cannula 2.0 04/19/17 12:00 Nasal Cannula 2.0 04/19/17 11:48 36.5 73 18 104/50 (68) 96 Nasal Cannula 2.0 04/19/17 11:39 36.2 73 20 108/50 (69) 96 Nasal Cannula 2.0 04/19/17 11:07 78 20 97/53 (68) 98 Nasal Cannula 2.0 04/19/17 10:52 70 20 104/55 (71) 100 Nasal Cannula 2.0 04/19/17 10:38 75 22 102/58 (73) 100 Mask 2.0 Physical Exam General Appearance: WD/WN, + moderate distress Respiratory/Chest: + crackles, + rales, + rhonchi Cardiovascular: regular rate, rhythm Abdomen: normal bowel sounds, non tender, soft Extremities: + pertinent finding (ecchymoses on bilateral arms and legs) Laboratory Results Last 24 Hours Test 04/19/17 11:47 04/19/17 15:16 04/19/17 15:53 04/19/17 15:54 Bedside Glucose 106 mg/dl 376 mg/dl 233 mg/dl Hemoglobin 7.8 g/dL Hematocrit 24.7 % Magnesium Level 2.8 mg/dl Test 04/19/17 15:55 04/19/17 16:14 04/19/17 20:10 04/19/17 22:43 Bedside Glucose 239 mg/dl 214 mg/dl 148 mg/dl Prothrombin Time 10.7 SECONDS Prothromb Time International Ratio 1.0 Test 04/19/17 23:18 04/20/17 06:22 04/20/17 06:34 04/20/17 07:55 Arterial Blood pH 7.45 Arterial Blood Partial Pressure CO2 43 mmHg Arterial Blood Partial Pressure O2 62 mm/Hg Arterial Blood HCO3 30 mmol/L Arterial Blood Oxygen Saturation 89.1 % Arterial Blood Base Excess 5.1 mEq/L Arterial Blood Gas Delivery 7 L Ramos Test POS Bedside Glucose 160 mg/dl White Blood Count 5.45 K/uL Red Blood Count 2.59 M/uL Hemoglobin 6.9 g/dL Hematocrit 23.0 % Mean Corpuscular Volume 88.8 fL Mean Corpuscular Hemoglobin 26.6 pg Mean Corpuscular Hemoglobin Concent 30.0 g/dl Platelet Count 150 K/uL Mean Platelet Volume 10.1 fL Neutrophils (%) (Auto) 64.7 % Lymphocytes (%) (Auto) 17.1 % Monocytes (%) (Auto) 16.1 % Eosinophils (%) (Auto) 1.5 % Basophils (%) (Auto) 0.4 % Neutrophils # (Auto) 3.53 K/uL Lymphocytes # (Auto) 0.93 K/uL Monocytes # (Auto) 0.88 K/uL Eosinophils # (Auto) 0.08 K/uL Basophils # (Auto) 0.02 K/uL RDW Standard Deviation 58.3 fL RDW Coefficient of Variation 18.1 % Immature Granulocyte % (Auto) 0.2 % Immature Granulocyte # (Auto) 0.01 K/uL Polychromasia 1+ Sodium Level 143 mmol/L Potassium Level 3.4 mmol/L Chloride Level 107 mmol/L Carbon Dioxide Level 31 mmol/L Anion Gap 5.0 mmol/L Blood Urea Nitrogen 20 mg/dl Creatinine 1.70 mg/dl Est Creatinine Clear Calc Drug Dose 39.7 ml/min Estimated GFR () 41.4 Estimated GFR (Non- 35.7 BUN/Creatinine Ratio 11.7 Random Glucose 141 mg/dl Calcium Level 8.0 mg/dl Prothrombin Time 10.4 SECONDS Prothromb Time International Ratio 1.0 Assessment and Plan 86 year old male admitted for lethargy, previously having low appetite, c/o abd pain, and found to have BRBPR in long-term in the setting of a supratherapeutic INR. -He underwent colonoscopy yesterday with a poor prep no active bleeding was seen. -Hemoglobin has drifted down overnight without overt bleeding he's had 1 episode of small bowel movement this morning -He likely is equilibrating based upon his lack of symptoms of overt bleeding, but do agree with blood transfusion. Unfortunately his respiratory status is declined with an increasing oxygen needed up to 4 L. His chest x-ray may suggest that he have a new pneumonia and he has been started on antibiotics. -His blood pressure was low overnight but is more normal this morning and is in no distress and actually looks relatively well given his scenario and circumstances. I will very low index of suspicion he has ongoing bleeding, however if he were to start having further stool output that appeared bloody with melena or bright red blood that I would support his hemodynamics with consideration of Lasix in between blood unit transfusions. Hold any antihypertensives, and that would evaluate for an upper endoscopy. I did increase his Protonix to twice a day given the fact that he is on steroids for adrenal insufficiency and given his hospitalizations and this one he would be high risk for peptic ulcer disease. -With his declining respiratory status he certainly would be higher risk than yesterday for endoscopy but would perform as long as family and anesthesia were fine with risk involved. -He did eat a full breakfast this morning to require intubation -Will continue to follow, please call with any questions or clinical decline.
[2017-04-20] MEDS ORDERED: NURSING VERBAL MED ORDER ONE (11:00)
[2017-04-20] MEDS ORDERED: LORAZEPAM 0.5 MG TAB PO PRN (15:15)
[2017-04-20] MEDS ORDERED: HALOPERIDOL LACTATE 5 MG/ML 1 ML VIAL IM PRN (15:15)
--- NOTE | 2017-04-20 15:42 | Hospitalist Progress Note ---
Hospitalist Progress Note Date of Service Apr 20, 2017. Subjective Pt evaluation today including: conversation w/ patient, conversation w/ family Pt feeling better. Breathing is improved. Has only mild lower abd pain. Has occasional heartburn. No cough, afebrile. Was placed on higher level of O2 requirement last night, delirium with hallucinations, and started on Unasyn to cover for aspiration PNA- had worsening CXR, long h/o aspiration. Had a small amount of old blood in stool this AM but no BRBPR All Other Systems: Reviewed and Negative Objective Vital Signs Date Time Temp Pulse Resp B/P (MAP) Pulse Ox O2 Delivery O2 Flow Rate FiO2 04/20/17 14:30 37.0 82 18 118/67 96 4.0 04/20/17 13:30 36.9 70 18 103/62 94 4.0 04/20/17 13:00 36.9 88 20 100/62 96 4.0 04/20/17 12:45 37.0 86 20 95/61 95 4.0 04/20/17 12:30 37.0 71 18 100/57 92 4.0 04/20/17 12:00 Nasal Cannula 4.0 04/20/17 11:17 36.7 67 16 102/61 (75) 100 4.0 04/20/17 08:00 Nasal Cannula 4.0 04/20/17 06:53 36.8 74 16 100/62 (75) 98 4.0 04/20/17 04:00 100 Nasal Cannula 4.0 04/20/17 03:30 36.8 61 20 82/49 (60) 100 Nasal Cannula 4.0 04/20/17 02:03 88 20 96 Nasal Cannula 4.0 04/19/17 23:59 99 Mask 6.0 04/19/17 22:53 36.9 80 26 94/57 (69) 98 Mask 7.0 04/19/17 22:51 87 20 98 Mask 5.0 04/19/17 20:00 96 Nasal Cannula 2.0 04/19/17 19:57 36.4 79 22 100/54 (69) 93 Nasal Cannula 2.0 04/19/17 16:00 96 Nasal Cannula 2.0 04/19/17 15:34 36.4 79 18 93/55 (68) 96 Nasal Cannula 2.0 Physical Exam General Appearance: WD/WN, no apparent distress Eyes: normal inspection, sclerae normal ENT: hearing grossly normal Neck: trachea midline Respiratory/Chest: no respiratory distress, no accessory muscle use, + crackles (bibasilar) Cardiovascular: regular rate, rhythm, no gallop, no murmur, + pertinent finding (1+ pitting edema legs to knees bilat) Abdomen: normal bowel sounds, non tender, soft (and protuberant) Extremities: no calf tenderness 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: alert, normal mood/affect Skin: warm/dry, + pertinent finding (superficial abrasions left knee and anterior tibia,no erythema or induration or drainage; +ecchymossi on arms) Laboratory Results Last 24 Hours Test 04/19/17 15:16 04/19/17 15:53 04/19/17 15:54 04/19/17 15:55 Hemoglobin 7.8 g/dL Hematocrit 24.7 % Magnesium Level 2.8 mg/dl Bedside Glucose 376 mg/dl 233 mg/dl 239 mg/dl Test 04/19/17 16:14 04/19/17 20:10 04/19/17 22:43 04/19/17 23:18 Prothrombin Time 10.7 SECONDS Prothromb Time International Ratio 1.0 Bedside Glucose 214 mg/dl 148 mg/dl Arterial Blood pH 7.45 Arterial Blood Partial Pressure CO2 43 mmHg Arterial Blood Partial Pressure O2 62 mm/Hg Arterial Blood HCO3 30 mmol/L Arterial Blood Oxygen Saturation 89.1 % Arterial Blood Base Excess 5.1 mEq/L Arterial Blood Gas Delivery 7 L Ramos Test POS Test 04/20/17 06:22 04/20/17 06:34 04/20/17 07:55 04/20/17 11:22 Bedside Glucose 160 mg/dl 174 mg/dl White Blood Count 5.45 K/uL Red Blood Count 2.59 M/uL Hemoglobin 6.9 g/dL Hematocrit 23.0 % Mean Corpuscular Volume 88.8 fL Mean Corpuscular Hemoglobin 26.6 pg Mean Corpuscular Hemoglobin Concent 30.0 g/dl Platelet Count 150 K/uL Mean Platelet Volume 10.1 fL Neutrophils (%) (Auto) 64.7 % Lymphocytes (%) (Auto) 17.1 % Monocytes (%) (Auto) 16.1 % Eosinophils (%) (Auto) 1.5 % Basophils (%) (Auto) 0.4 % Neutrophils # (Auto) 3.53 K/uL Lymphocytes # (Auto) 0.93 K/uL Monocytes # (Auto) 0.88 K/uL Eosinophils # (Auto) 0.08 K/uL Basophils # (Auto) 0.02 K/uL RDW Standard Deviation 58.3 fL RDW Coefficient of Variation 18.1 % Immature Granulocyte % (Auto) 0.2 % Immature Granulocyte # (Auto) 0.01 K/uL Polychromasia 1+ Sodium Level 143 mmol/L Potassium Level 3.4 mmol/L Chloride Level 107 mmol/L Carbon Dioxide Level 31 mmol/L Anion Gap 5.0 mmol/L Blood Urea Nitrogen 20 mg/dl Creatinine 1.70 mg/dl Est Creatinine Clear Calc Drug Dose 39.7 ml/min Estimated GFR () 41.4 Estimated GFR (Non- 35.7 BUN/Creatinine Ratio 11.7 Random Glucose 141 mg/dl Calcium Level 8.0 mg/dl Prothrombin Time 10.4 SECONDS Prothromb Time International Ratio 1.0 Assessment and Plan 86 y/o M w/Hx severe COPD, chronic aspiration, CAD s/p stent placement, HTN, PAF , chronic diastolic CHF, dyslipidemia, CKD 3-4, DMII, adrenal insufficiency, PAD , h/o CVA/TIA, Chronc pain syndrome, BPH with urinary retention, GERD, anemia of chronic disease, h/o recurrent UTIs, asymptomatic cholelithiasis, history of DVT on Coumadin since Feb 2017. Resides in a nursing facility. Pt has been admitted to the hospital 4 x this yr for pneumonia due to aspiration. On admission, he had developed diffuse lower quadrant abdominal pain, nausea, in addition to BRBPR. He denies CP, SOB, cough, dysuria. He does state that 2 days prior he had hematuria which resolved spontaneously. On arrival to the ER the pt was hypotensive with an SBP in the 80s. Initial labs were notable for an INR of 4.5 and a Hemoglobin of 6.9 from a baseline of 11. He received Vitamin K and K Centra in the ER. GI bleed in setting of acute anemia - no clear abnormalities noted on CT abdomen. Abdominal pain is chronic and noted on previous admissions without etiology. Hgb in the 7s on rechecks. GI consulted and agree with colonoscopy. Colonoscopy completed 04/19, no active bleeding noted, but had old blood and poor prep throughout entire colon. Hg worsened to 6.9 today, PRBCs 2 units given on admission, 1 unit given 04/20. No further bleeding acutely, likely equilibrium reached. On chronic steroids for adrenal insufficiency with some GERD symptoms, could be PUD -GI recommends EGD if has recurrent bleeding -increased PPI to bid -follow CBC daily and at 1600 today Chronic Diastolic CHF. Echo noted Grade 1 diastolic dysfunction in 2014. Has had diuretics held now for 4 days due to hypotension. BPs improved now. CXR with progressive bibasilar haziness could be pulm edema -restart torsemide at lower dose of 20mg daily -follow I/Os -follow CXR after diuresis Acute on chronic hypoxemic respiratory failure-required higher O2 level last evening, h/o recurrent aspiration, CXR worsened at bases pulm edema vs aspiraiton PNA? No other signs of PNA today, afenrile, no leukocytosis, mental status totally at baseline today -continue Unasyn x 2 days and then stop if no other symptoms -follow CXR Delirium-likely due to hospital delirium vs aspiration as above- Haldol IM prn -anxiety can take ativan but Haldol better for delirium as d/w RN -supportive care CKD - stage 3-4 - creat is at baseline, today 1.7. Diuretics held on admission and provided gentle hydration, PRBC transfusions. Now with signs of fluid overload -restart torsemide as above -follow PRP -avoid nephrotoxins and renally dose all meds Hypokalemia- K+ 3.4 -replace K+ -follow lytes especially with restarting loop diuretic Severe COPD, Chronic respiratory failure - -continue supplemental O2 -continue duonebs, PRN Xopenex. -continue Advair from home -Steroids are not indicated at present although he will receive Cortef for adrenal insufficiency. Adrenal insufficiency - will continue fludrocortisone and Cortef - although his low BP may have been due to blood loss,he received a stress dose of Cortef CAD - extensive LAD stenting - no evidence of ACS - cont B opal atenolol with parameters if BP stable. Cont statin - ASA and Plavix held in setting of acute bleed. Will restart on discharge if stable DVT - Diagnosed in february 2017, pt is on coumadin normally which has been reversed, hesitant about restarting due to drop in hg in light of normal endoscopy. Pt has also almost completed 3 months of treatment. -will not restart on discharge most likely -check Doppler now Reported hematuria 2 days prior - current UA is negative for occult blood or infection Diabetes mellitus II-glucose in 100s-200s here. HgbA1C 8.8% in 01/2017 - at home on Lantus 55 units hs, and NovoLog Mix 70/30 20 units in AM and 5 units in PM -add Lantus back on now that is eating again - ISS with accuchecks ACHS BPH with h/o urinary retention requiring chronic indwelling Marshall-not needing Marshall now -continue dutasteride 0.5 mg by mouth daily, methenamine hippurate 1 g, and tamsulosin 0.4 mg Neuropathic pain/Chronic pain-stable - gabapentin 800 mg tid, OxyContin 15 mg q12 Depression-stable -duloxetine 30 mg Proph- SCDs, PPI DNR
[2017-04-20] MEDS ORDERED: POTASSIUM CHLORIDE 10 MEQ TABCR PO ONE (16:00)
[2017-04-20] MEDS ORDERED: TORSEMIDE 20 MG TAB PO ONE (16:00)
[2017-04-20] MEDS: INSULIN GLARGINE SOLOSTAR 100 UNITS/ML 3 ML PEN SC SCH (21:09)
[2017-04-20] MEDS: ATORVASTATIN 20 MG TAB PO SCH (21:10)
[2017-04-20] MEDS: TAMSULOSIN HCL 0.4 MG CAP PO SCH (21:10)
[2017-04-20] MEDS: METHENAMINE HIPPURATE 1 GM TAB PO SCH (21:12)
--- NOTE | 2017-04-20 23:15 | DIAGNOSTIC IMAGING REPORT ---
R VENOUS DOPP LOWER EXT UNILAT HISTORY: 86 years-old Male assess for resolution of DVT follow-up study to assess the venous thrombosis of the right popliteal vein COMPARISON: Duplex study 03/02/2017 TECHNIQUE: Multiple real-time sonographic images of the right lower extremity deep venous system were obtained assessing grayscale appearance, color and spectral flow FINDINGS: Nonocclusive deep venous thrombosis identified within the right popliteal vein with echogenic fibrin stranding. Otherwise, there is normal flow, augmentation and compressibility within the deep venous system. IMPRESSION: 1. No acute deep venous thrombosis identified. 2. 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 The above report was generated using voice recognition software. It may contain grammatical, syntax or spelling errors. Electronically signed by: Jl Kelley M.D. 04/20/2017 11:14 PM Dictated Date/Time: 04/20/2017 11:11 PM
[2017-04-21] VITALS (8 sets, daily range): BP systolic 91–147; BP diastolic 55–74; PULSE 67–84; TEMP 36.3–36.9; O2SAT 92–100
[2017-04-21] MEDS: AMPICILLIN/SULBACTAM SOD INJ 1,500 MG in SODIUM CHLORIDE 0.9% 100ML 100 ML IV SCH ×3 (00:34→11:54)
[2017-04-21 07:32] LABS: PROTHROMBIN TIME (PATIENT) 10.6 SECONDS (9.0-12.0)
[2017-04-21 07:56] LABS: BUN/CREATININE RATIO 9.6 (10-20); CALCIUM 8.2 mg/dl (8.5-10.1); CREATININE 1.6 mg/dl (0.60-1.40); MAGNESIUM 2.8 mg/dl (1.8-2.4); POTASSIUM 3.6 mmol/L (3.5-5.1)
[2017-04-21 08:01] LABS: BASO % 0.3 %; BASO ABS # 0.02 K/uL (0-0.2); EOS % 0.6 %; HEMATOCRIT 25.1 % (42-52); IG% 0.4 %; LYMPH % 8.8 %; MEAN CELL VOLUME 88.7 fL (80-100); MEAN CORPUSCULAR HEMOGLOBIN 27.9 pg (25-34); MEAN CORPUSCULAR HGB CONC 31.5 g/dl (32-36); MEAN PLATELET VOLUME 10.5 fL (7.4-10.4); MONO % 10.9 %; PLATELET COUNT 160 K/uL (130-400); RED BLOOD COUNT 2.83 M/uL (4.7-6.1)
[2017-04-21] MEDS: DUTASTERIDE 0.5MG PO SCH ×2 (08:15)
[2017-04-21] MEDS: TORSEMIDE 20 MG TAB PO SCH (08:16)
[2017-04-21] MEDS: LIDODERM (LIDOCAINE) PATCH 5% TD SCH (08:16)
[2017-04-21] MEDS: FLUDROCORTISONE ACETATE 0.1 MG TAB PO SCH ×2 (08:16→21:40)
[2017-04-21] MEDS: DULOXETINE HCL 60 MG CAP PO SCH (08:17)
[2017-04-21] MEDS: GUAIFENESIN 600 MG TABCR PO SCH ×2 (08:17→21:38)
[2017-04-21] MEDS: PANTOprazole SOD 40 MG TAB PO SCH ×2 (08:17→21:40)
[2017-04-21] MEDS: GABAPENTIN 800 MG TAB PO SCH ×3 (08:17→21:37)
[2017-04-21] MEDS: IPRATROPIUM BROMIDE/ALBUTEROL respimat INH INH SCH ×4 (08:18→20:14)
[2017-04-21] MEDS: FLUTICASONE PROPIONATE NA SPR 16 GM BTL SCH (08:18)
[2017-04-21] MEDS: FLUTICASONE/SALMETEROL 250/50 (ADVAIR) 14 PUFF/1 INHALER INH SCH ×2 (08:18→20:14)
[2017-04-21] MEDS: MAGNESIUM OXIDE 400 MG TAB PO SCH ×2 (08:19→21:37)
[2017-04-21] MEDS: HYDROCORTISONE 10 MG TAB PO SCH ×2 (08:19→22:25)
[2017-04-21] MEDS: INSULIN ASPART 100 UNITS/ML 3 ML PEN SC SCH ×4 (08:30→20:19)
[2017-04-21] MEDS: INSULIN GLARGINE SOLOSTAR 100 UNITS/ML 3 ML PEN SC SCH ×2 (08:30→20:19)
[2017-04-21] MEDS: OXYCODONE HCL 15 MG TABCR (OXYCONTIN) PO SCH ×2 (08:31→20:20)
[2017-04-21 09:06] LABS: COMPLETE YES; POLYCHROMASIA 1+
[2017-04-21] MEDS: LEVALBUTEROL 0.63MG/3 ML NEB INH PRN (10:08)
--- NOTE | 2017-04-21 11:09 | Gastroenterology Progress Note ---
Progress Note Date of Service: Apr 21, 2017 Subjective Pt evaluation today including: conversation w/ patient States feels well, no abdominal pain, no further evidence of rectal bleeding. Medications Current Inpatient Medications Medications (Trade) Dose Ordered Sig/Cole Route Start Time Stop Time Status Last Admin Dose Admin Acetaminophen (Tylenol Tab) 650 mg Q4H PRN PO 04/16/17 11:15 05/16/17 11:14 Ondansetron HCl (Zofran Inj) 4 mg Q6H PRN IV 04/16/17 11:15 05/16/17 11:14 04/18/17 09:15 4 MG Morphine Sulfate (MoRPHine SULFATE INJ) 2 mg Q30M PRN IV 04/16/17 11:15 04/30/17 11:14 Atenolol (Tenormin Tab) 12.5 mg DAILY PO 04/17/17 09:00 05/17/17 08:59 04/21/17 08:18 12.5 MG Atorvastatin Calcium (Lipitor Tab) 20 mg HS PO 04/16/17 21:00 05/16/17 20:59 04/20/17 21:10 20 MG Duloxetine HCl (Cymbalta Cap) 60 mg QAM PO 04/17/17 09:00 05/17/17 08:59 04/21/17 08:17 60 MG Fludrocortisone Acetate (Florinef Tab) 0.1 mg BID PO 04/16/17 21:00 05/16/17 20:59 04/21/17 08:16 0.1 MG Salmeterol Xinafoate/ Fluticasone (Advair Diskus 250/50 Inh) 1 puff BID INH 04/16/17 21:00 05/16/17 20:59 04/21/17 08:18 1 PUFF Fluticasone Propionate (Flonase Nasal Enderlin) 2 sprays DAILY NA 04/17/17 09:00 05/17/17 08:59 04/21/17 08:18 2 SPRAYS Gabapentin (Neurontin Tab) 800 mg TID PO 04/16/17 21:00 05/16/17 20:59 04/21/17 08:17 800 MG Guaifenesin (Mucinex Contr Rel Tab) 1,200 mg Q12 PO 04/16/17 21:00 05/16/17 20:59 04/21/17 08:17 1,200 MG Hydrocortisone (Cortef Tab) 40 mg BID PO 04/16/17 21:00 05/16/17 20:59 04/21/17 08:19 40 MG Albuterol/ Ipratropium (Combivent Respimat Inh) 2 puffs QID INH 04/16/17 21:00 05/16/17 20:59 04/21/17 08:18 2 PUFFS Levalbuterol (Xopenex 0.63 Mg/ 3 Ml Neb) 0.63 mg Q4R PRN INH 04/16/17 11:30 05/16/17 11:29 04/21/17 10:08 0.63 MG Lidocaine (Lidoderm Patch 5%) 1 patch QAM TD 04/16/17 13:30 05/16/17 13:29 04/21/17 08:16 1 PATCH Magnesium Oxide (Mag-Ox Tab) 400 mg BID PO 04/16/17 21:00 05/16/17 20:59 04/21/17 08:19 400 MG Methenamine Hippurate (Urex Tab) 1 gm HS PO 04/16/17 21:00 04/26/17 20:59 04/20/17 21:12 1 GM Oxycodone HCl (Oxycontin Tab) 15 mg Q12 PO 04/16/17 21:00 04/30/17 20:59 04/21/17 08:31 15 MG Simethicone (Mylicon Chew Tab) 80 mg QID PRN PO 04/16/17 11:30 05/16/17 11:29 Tamsulosin HCl (Flomax Cap) 0.4 mg HS PO 04/16/17 21:00 05/16/17 20:59 04/20/17 21:10 0.4 MG Miscellaneous Information (Order Awaiting Action) 1 ea QS N/A 04/16/17 16:00 05/16/17 15:59 04/20/17 20:40 1 EA Miscellaneous (Remove Lidoderm Patch) 1 ea DAILY@21 N/A 04/16/17 21:00 05/16/17 20:59 04/20/17 21:03 1 EA Glucose (Glucose 40% Gel) 15-30 GRAMS 15 GRAMS... UD PRN PO 04/16/17 14:00 05/16/17 13:59 Glucose (Glucose Chew Tab) 4-8 Tablets 4 Tabl... UD PRN PO 04/16/17 14:00 05/16/17 13:59 Dextrose (Dextrose 50% 50ML Syringe) 25-50ML OF 50% DW IV FOR... UD PRN IV 04/16/17 14:00 05/16/17 13:59 Glucagon (Glucagon Inj) 1 mg UD PRN SQ 04/16/17 14:00 05/16/17 13:59 Insulin Aspart (novoLOG ASPART) SLIDING SCALE G... ACHS SC 04/17/17 16:15 05/16/17 17:59 04/21/17 08:30 1 UNITS Dutasteride (Avodart) 0.5 mg DAILY PO 04/18/17 09:00 05/18/17 08:59 04/21/17 08:15 0.5 MG Docusate Sodium (coLACE CAP) 100 mg PRN PRN PO 04/17/17 20:00 05/17/17 19:59 04/17/17 22:25 100 MG Polyethylene Glycol/ Electrolytes (Golytely Soln) 1 dose UD PO 04/18/17 17:00 05/18/17 16:59 Ampicillin Sodium/ Sulbactam Sodium 1500 mg/Sodium Chloride 104 ml @ 200 mls/hr Q6H IV 04/20/17 06:00 04/27/17 05:59 04/21/17 05:18 200 MLS/HR Pantoprazole Sodium (Protonix Tab) 40 mg BID PO 04/20/17 21:00 05/20/17 20:59 04/21/17 08:17 40 MG Torsemide (Demadex Tab) 20 mg QAM PO 04/21/17 09:00 05/21/17 08:59 04/21/17 08:16 20 MG Lorazepam (Ativan Tab) 0.5 mg Q8 PRN PO 04/20/17 15:15 05/20/17 15:14 Haloperidol Lactate (Haldol Inj) 5 mg HS PRN IM 04/20/17 15:15 05/20/17 15:14 Insulin Glargine (Lantus Solostar Pen) 10 units BID SC 04/20/17 21:00 05/20/17 20:59 04/21/17 08:30 10 UNITS Potassium Chloride (Klor-Con M10) 20 meq BID PO 04/21/17 11:00 05/21/17 10:59 Objective Vital Signs Date Time Temp Pulse Resp B/P (MAP) Pulse Ox O2 Delivery O2 Flow Rate FiO2 04/21/17 10:08 76 20 97 Nasal Cannula 3.5 04/21/17 08:00 Nasal Cannula 4.0 04/21/17 08:00 36.4 72 20 147/74 (98) 96 Nasal Cannula 4.0 04/21/17 04:00 Nasal Cannula 4.0 04/21/17 03:38 36.9 69 20 111/63 (79) 92 Nasal Cannula 4.0 04/21/17 00:22 Nasal Cannula 4.0 04/20/17 23:11 36.7 67 20 107/67 (80) 95 Nasal Cannula 4.0 04/20/17 20:43 90 22 100 Nasal Cannula 5.0 04/20/17 20:00 98 Nasal Cannula 4.0 04/20/17 19:01 36.4 61 22 108/68 (81) 98 Nasal Cannula 4.0 04/20/17 16:00 93 Nasal Cannula 4.0 04/20/17 15:52 36.7 68 22 97/59 (72) 93 Nasal Cannula 3.0 04/20/17 14:30 37.0 82 18 118/67 96 4.0 04/20/17 13:30 36.9 70 18 103/62 94 4.0 04/20/17 13:00 36.9 88 20 100/62 96 4.0 04/20/17 12:45 37.0 86 20 95/61 95 4.0 04/20/17 12:30 37.0 71 18 100/57 92 4.0 04/20/17 12:00 Nasal Cannula 4.0 04/20/17 11:17 36.7 67 16 102/61 (75) 100 4.0 Physical Exam General Appearance: WD/WN, no apparent distress Eyes: normal inspection Neck: supple Respiratory/Chest: + respiratory distress, + crackles, + rhonchi Abdomen: normal bowel sounds, non tender, soft, no organomegaly 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 as tested Laboratory Results Last 24 Hours Test 04/20/17 11:22 04/20/17 15:48 04/20/17 16:18 04/20/17 20:26 Bedside Glucose 174 mg/dl 224 mg/dl 174 mg/dl Hemoglobin 8.2 g/dL Hematocrit 26.0 % Test 04/21/17 07:07 04/21/17 10:55 White Blood Count 6.80 K/uL Red Blood Count 2.83 M/uL Hemoglobin 7.9 g/dL Hematocrit 25.1 % Mean Corpuscular Volume 88.7 fL Mean Corpuscular Hemoglobin 27.9 pg Mean Corpuscular Hemoglobin Concent 31.5 g/dl Platelet Count 160 K/uL Mean Platelet Volume 10.5 fL Neutrophils (%) (Auto) 79.0 % Lymphocytes (%) (Auto) 8.8 % Monocytes (%) (Auto) 10.9 % Eosinophils (%) (Auto) 0.6 % Basophils (%) (Auto) 0.3 % Neutrophils # (Auto) 5.37 K/uL Lymphocytes # (Auto) 0.60 K/uL Monocytes # (Auto) 0.74 K/uL Eosinophils # (Auto) 0.04 K/uL Basophils # (Auto) 0.02 K/uL RDW Standard Deviation 57.3 fL RDW Coefficient of Variation 17.8 % Immature Granulocyte % (Auto) 0.4 % Immature Granulocyte # (Auto) 0.03 K/uL Nucleated RBC Absolute Count (auto) 0.05 K/uL Nucleated Red Blood Cells % 0.7 % Polychromasia 1+ Prothrombin Time 10.6 SECONDS Prothromb Time International Ratio 1.0 Sodium Level 144 mmol/L Potassium Level 3.6 mmol/L Chloride Level 105 mmol/L Carbon Dioxide Level 33 mmol/L Anion Gap 6.0 mmol/L Blood Urea Nitrogen 15 mg/dl Creatinine 1.60 mg/dl Est Creatinine Clear Calc Drug Dose 42.3 ml/min Estimated GFR () 44.6 Estimated GFR (Non- 38.4 BUN/Creatinine Ratio 9.6 Random Glucose 164 mg/dl Calcium Level 8.2 mg/dl Magnesium Level 2.8 mg/dl Bedside Glucose 196 mg/dl Assessment and Plan 86 year old male admitted for lethargy, previously having low appetite, c/o abd pain, and found to have BRBPR in senior living in the setting of a supratherapeutic INR. -He underwent colonoscopy on Saturday with a poor prep no active bleeding was seen. -Hemoglobin has drifted down and responded per Prilosec to 1 unit of blood. -He likely is equilibrating based upon his lack of symptoms of overt bleeding, but do agree with blood transfusion. Unfortunately his respiratory status is declined with an increasing oxygen needed up to 4 L. His chest x-ray may suggest that he have a new pneumonia and he has been started on antibiotics. -With his declining respiratory status he certainly would be higher risk than previously for endoscopy but would perform as long as family and anesthesia were fine with risk involved continue to follow him clinically, and if warrants endoscopy and/or colonoscopy can be performed this week as per his clinical course but has been stable for the last 2 days. -Will continue to follow, please call with any questions or clinical decline.
[2017-04-21] MEDS: POTASSIUM CHLORIDE 10 MEQ TABCR PO SCH ×2 (11:54→21:38)
[2017-04-21] MEDS ORDERED: NURSING VERBAL MED ORDER ONE (12:15)
--- NOTE | 2017-04-21 12:34 | Hospitalist Progress Note ---
Hospitalist Progress Note Date of Service Apr 21, 2017. Subjective Pt evaluation today including: conversation w/ patient Voiding: gomez catheter in place Feeling great today, still requiring 4 LNC but denies SOB, no CP, is moving bowels, christi po. Had some onelia colored stool this AM as per RN All Other Systems: Reviewed and Negative Objective Vital Signs Date Time Temp Pulse Resp B/P (MAP) Pulse Ox O2 Delivery O2 Flow Rate FiO2 04/21/17 12:00 Nasal Cannula 4.0 04/21/17 11:07 36.3 84 16 110/65 (80) 97 4.0 04/21/17 10:08 76 20 97 Nasal Cannula 3.5 04/21/17 08:00 Nasal Cannula 4.0 04/21/17 08:00 36.4 72 20 147/74 (98) 96 Nasal Cannula 4.0 04/21/17 04:00 Nasal Cannula 4.0 04/21/17 03:38 36.9 69 20 111/63 (79) 92 Nasal Cannula 4.0 04/21/17 00:22 Nasal Cannula 4.0 04/20/17 23:11 36.7 67 20 107/67 (80) 95 Nasal Cannula 4.0 04/20/17 20:43 90 22 100 Nasal Cannula 5.0 04/20/17 20:00 98 Nasal Cannula 4.0 04/20/17 19:01 36.4 61 22 108/68 (81) 98 Nasal Cannula 4.0 04/20/17 16:00 93 Nasal Cannula 4.0 04/20/17 15:52 36.7 68 22 97/59 (72) 93 Nasal Cannula 3.0 04/20/17 14:30 37.0 82 18 118/67 96 4.0 04/20/17 13:30 36.9 70 18 103/62 94 4.0 04/20/17 13:00 36.9 88 20 100/62 96 4.0 04/20/17 12:45 37.0 86 20 95/61 95 4.0 04/20/17 12:30 37.0 71 18 100/57 92 4.0 Physical Exam General Appearance: WD/WN, no apparent distress Eyes: normal inspection, sclerae normal ENT: hearing grossly normal Neck: trachea midline Respiratory/Chest: no respiratory distress, no accessory muscle use, + crackles (at bases mild, faint wheeze left middle lung field, moving air throughout) Cardiovascular: regular rate, rhythm, no murmur, + pertinent finding (2+ pitting edema legs bilat to mid tibia) Abdomen: normal bowel sounds, non tender, soft Extremities: no calf tenderness 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: alert, normal mood/affect Skin: normal color, warm/dry, no rash Laboratory Results Last 24 Hours Test 04/20/17 15:48 04/20/17 16:18 04/20/17 20:26 04/21/17 07:07 Hemoglobin 8.2 g/dL 7.9 g/dL Hematocrit 26.0 % 25.1 % Bedside Glucose 224 mg/dl 174 mg/dl White Blood Count 6.80 K/uL Red Blood Count 2.83 M/uL Mean Corpuscular Volume 88.7 fL Mean Corpuscular Hemoglobin 27.9 pg Mean Corpuscular Hemoglobin Concent 31.5 g/dl Platelet Count 160 K/uL Mean Platelet Volume 10.5 fL Neutrophils (%) (Auto) 79.0 % Lymphocytes (%) (Auto) 8.8 % Monocytes (%) (Auto) 10.9 % Eosinophils (%) (Auto) 0.6 % Basophils (%) (Auto) 0.3 % Neutrophils # (Auto) 5.37 K/uL Lymphocytes # (Auto) 0.60 K/uL Monocytes # (Auto) 0.74 K/uL Eosinophils # (Auto) 0.04 K/uL Basophils # (Auto) 0.02 K/uL RDW Standard Deviation 57.3 fL RDW Coefficient of Variation 17.8 % Immature Granulocyte % (Auto) 0.4 % Immature Granulocyte # (Auto) 0.03 K/uL Nucleated RBC Absolute Count (auto) 0.05 K/uL Nucleated Red Blood Cells % 0.7 % Polychromasia 1+ Prothrombin Time 10.6 SECONDS Prothromb Time International Ratio 1.0 Sodium Level 144 mmol/L Potassium Level 3.6 mmol/L Chloride Level 105 mmol/L Carbon Dioxide Level 33 mmol/L Anion Gap 6.0 mmol/L Blood Urea Nitrogen 15 mg/dl Creatinine 1.60 mg/dl Est Creatinine Clear Calc Drug Dose 42.3 ml/min Estimated GFR () 44.6 Estimated GFR (Non- 38.4 BUN/Creatinine Ratio 9.6 Random Glucose 164 mg/dl Calcium Level 8.2 mg/dl Magnesium Level 2.8 mg/dl Test 04/21/17 10:55 Bedside Glucose 196 mg/dl Assessment and Plan 86 y/o M w/Hx severe COPD, chronic aspiration, CAD s/p stent placement, HTN, PAF , chronic diastolic CHF, dyslipidemia, CKD 3-4, DMII, adrenal insufficiency, PAD , h/o CVA/TIA, Chronic pain syndrome, BPH with urinary retention and chronic indwelling Gomez, GERD, anemia of chronic disease, h/o recurrent UTIs, asymptomatic cholelithiasis, history of DVT on Coumadin since Feb 2017. Resides in a nursing facility. Pt has been admitted to the hospital 4 x this yr for pneumonia due to aspiration. On admission, he had developed diffuse lower quadrant abdominal pain, nausea, in addition to BRBPR. He denies CP, SOB, cough, dysuria. He does state that 2 days prior he had hematuria which resolved spontaneously. On arrival to the ER the pt was hypotensive with an SBP in the 80s. Initial labs were notable for an INR of 4.5 and a Hemoglobin of 6.9 from a baseline of 11. He received Vitamin K and K Centra in the ER to reverse his coumadin. GI bleed in setting of acute anemia - no clear abnormalities noted on CT abdomen. Abdominal pain is chronic and noted on previous admissions without etiology. Hgb in the 7s on rechecks. Could be mesenteric ischemia vs UGI bleed from PUD given chronic steroid use GI consulted and agree with colonoscopy. Colonoscopy completed 04/19, no active bleeding noted, but had old blood and poor prep throughout entire colon. Hg worsened to 6.9 again on 04/20, PRBCs 2 units given on admission, 1 unit given 04/20. Hgb appropriately up to 7.9 now No further bleeding acutely, likely equilibrium reached. -GI recommends EGD and repeat colonoscopy this week if lungs improve (O2 requirement back to baseline) -increased PPI to bid -NPO after midnight tonight in case of EGD tomorrow-will decide in AM as per GI -could then do prep Sat and colonoscopy Saturday Chronic Diastolic CHF. Echo noted Grade 1 diastolic dysfunction in 2014. Had diuretics held for 4 days due to hypotension on admission. BPs improved. CXR with progressive bibasilar haziness could be pulm edema -restarted torsemide at lower dose of 20mg daily on 04/20, diuresing, increase torsemide back to home dose as BP tolerates -follow I/Os -follow CXR after diuresis in AM -continue K+ replacement Acute on chronic hypoxemic respiratory failure-required higher O2 level on evening after colonoscopy, h/o recurrent aspiration, CXR worsened at bases pulm edema vs aspiration PNA? No other signs of PNA, afebrile, no leukocytosis, mental status totally at baseline today -received Unasyn x 2 days --> will stop today -follow CXR in AM Delirium-likely due to hospital delirium vs aspiration as above-completely resolved, likely related to anesthesia vs aspiration after anesthesia? Haldol IM prn -anxiety can take ativan but Haldol better for delirium as d/w RN -supportive care CKD - stage 3-4 - creat is at baseline, today 1.6. Diuretics held on admission and provided gentle hydration, PRBC transfusions. Now with signs of fluid overload -restarted torsemide as above -follow PRP -avoid nephrotoxins and renally dose all meds Hypokalemia- related to loop diuretic -replace K+ to keep > 4.0 -follow lytes Severe COPD, Acute on Chronic respiratory failure - requiring 4 LNC now and home O2 2LNC -continue supplemental O2 and wean down as tolerated to keep POx>92% -continue duonebs, PRN Xopenex. -continue Advair from home -Steroids are not indicated at present although he will receive Cortef for adrenal insufficiency. Adrenal insufficiency - will continue fludrocortisone and Cortef - although his low BP may have been due to blood loss,he received a stress dose of Cortef CAD - extensive LAD stenting - no evidence of ACS - cont B opal atenolol with parameters if BP stable. Cont statin - ASA and Plavix held in setting of acute bleed. Will restart on discharge if stable DVT - Diagnosed in february 2017, pt is on coumadin normally which has been reversed, hesitant about restarting due to drop in hg in light of normal endoscopy. Pt has also almost completed 3 months of treatment. -will not restart on discharge most likely -Repeat Doppler shows nonocclusive chronic thrombus left lower ext Reported hematuria 2 days prior - current UA is negative for occult blood or infection Diabetes mellitus II-glucose in 100s-200s here. HgbA1C 8.8% in 01/2017 - at home on Lantus 55 units hs, and NovoLog Mix 70/30 20 units in AM and 5 units in PM -restarted Lantus 10 units bid and will titrate up as needed - ISS with accuchecks ACHS BPH with h/o urinary retention requiring chronic indwelling Gomez, sees Urology annually, has Gomez changed out q1 month, last changeout 04/01/17 -continue dutasteride 0.5 mg by mouth daily, methenamine hippurate 1 g, and tamsulosin 0.4 mg -continue monthly Gomez exchanges at [place] Neuropathic pain/Chronic pain-stable - gabapentin 800 mg tid, OxyContin 15 mg q12 Depression-stable -duloxetine 30 mg Proph- SCDs, PPI DNR Dispo- to [facility] 2 days after completed scopes
[2017-04-21] MEDS: POLYETHYLENE (MIRALAX) 17 GM PACK PO SCH (14:17)
[2017-04-21] MEDS: ATORVASTATIN 20 MG TAB PO SCH (21:37)
[2017-04-21] MEDS: TAMSULOSIN HCL 0.4 MG CAP PO SCH (21:39)
[2017-04-21] MEDS: METHENAMINE HIPPURATE 1 GM TAB PO SCH (21:39)
[2017-04-22] VITALS (10 sets, daily range): BP systolic 83–127; BP diastolic 48–67; PULSE 63–98; TEMP 36.1–36.8; O2SAT 94–100
[2017-04-22] MEDS: LEVALBUTEROL 0.63MG/3 ML NEB INH PRN (02:37)
[2017-04-22] MEDS: FLUTICASONE/SALMETEROL 250/50 (ADVAIR) 14 PUFF/1 INHALER INH SCH ×2 (07:00→21:27)
[2017-04-22] MEDS: IPRATROPIUM BROMIDE/ALBUTEROL respimat INH INH SCH ×4 (07:00→21:27)
[2017-04-22] MEDS: FLUTICASONE PROPIONATE NA SPR 16 GM BTL SCH (07:00)
[2017-04-22] MEDS: HYDROCORTISONE 10 MG TAB PO SCH ×2 (07:02→21:25)
[2017-04-22] MEDS: FLUDROCORTISONE ACETATE 0.1 MG TAB PO SCH ×2 (07:03→21:21)
[2017-04-22] MEDS: POTASSIUM CHLORIDE 10 MEQ TABCR PO SCH (07:03)
[2017-04-22] MEDS: INSULIN ASPART 100 UNITS/ML 3 ML PEN SC SCH ×4 (07:08→21:41)
[2017-04-22 07:31] LABS: BASO % 0.2 %; BASO ABS # 0.01 K/uL (0-0.2); EOS % 0.5 %; HEMATOCRIT 24.4 % (42-52); IG% 0.6 %; LYMPH % 8.9 %; LYMPH ABS # 0.57 K/uL (1.2-3.4); MEAN CELL VOLUME 89.4 fL (80-100); MEAN CORPUSCULAR HEMOGLOBIN 27.8 pg (25-34); MEAN CORPUSCULAR HGB CONC 31.1 g/dl (32-36); MEAN PLATELET VOLUME 10.6 fL (7.4-10.4); MONO % 10.2 %; NEUT % 79.6 %; PLATELET COUNT 161 K/uL (130-400); RED BLOOD COUNT 2.73 M/uL (4.7-6.1)
[2017-04-22] MEDS: TORSEMIDE 20 MG TAB PO SCH (07:43)
--- NOTE | 2017-04-22 07:59 | DIAGNOSTIC IMAGING REPORT ---
CHEST ONE VIEW PORTABLE CLINICAL HISTORY: Follow-up pulmonary edema. COMPARISON STUDY: Chest CT March 28, 2017 and chest radiograph April 19, 2017. FINDINGS: There is no pneumothorax or pleural effusion. There is no evidence of pulmonary edema. Emphysema is noted. A nodular density within the superior segment of the left lower lobe persist. There is no lobar consolidation. There is minimal right midlung opacity. IMPRESSION: 1. No radiographic evidence of pulmonary edema. 2. No change in a nonspecific nodule within the superior segment of the left lower lobe. 3. Apparent nodular opacity within the right midlung which was not evident on prior exam. This is likely artifactual although minimal airspace disease could appear similar. Electronically signed by: Arcenio Mejia M.D. 04/22/2017 7:58 AM Dictated Date/Time: 04/22/2017 7:39 AM
[2017-04-22 08:00] LABS: BUN/CREATININE RATIO 9.5 (10-20); CALCIUM 8.4 mg/dl (8.5-10.1); CREATININE 1.9 mg/dl (0.60-1.40); MAGNESIUM 2.7 mg/dl (1.8-2.4); POTASSIUM 4.4 mmol/L (3.5-5.1)
[2017-04-22 08:05] LABS: ANISOCYTOSIS PRESENT; COMPLETE YES; HYPERSEGMENTED POLYS 1+; HYPOCHROMIA PRESENT
[2017-04-22] MEDS: MAGNESIUM OXIDE 400 MG TAB PO SCH ×2 (09:00→21:23)
[2017-04-22] MEDS: GABAPENTIN 800 MG TAB PO SCH ×3 (09:00→21:27)
[2017-04-22] MEDS: PANTOprazole SOD 40 MG TAB PO SCH ×2 (09:00→21:23)
[2017-04-22] MEDS: OXYCODONE HCL 15 MG TABCR (OXYCONTIN) PO SCH ×2 (09:00→21:16)
[2017-04-22] MEDS: GUAIFENESIN 600 MG TABCR PO SCH ×2 (09:00→21:23)
[2017-04-22] MEDS: INSULIN GLARGINE SOLOSTAR 100 UNITS/ML 3 ML PEN SC SCH ×2 (09:36→21:42)
[2017-04-22] MEDS: LIDODERM (LIDOCAINE) PATCH 5% TD SCH (11:19)
--- NOTE | 2017-04-22 13:03 | Clinical Documentation Query ---
CLINICAL DOCUMENTATION QUERY 86 y/o M w/Hx severe COPD, chronic aspiration, CAD s/p stent placement, HTN, PAF, chronic diastolic CHF, dyslipidemia, CKD 3-4, DMII, adrenal insufficiency, PAD, h/o CVA/TIA, Chronic pain syndrome, BPH with urinary retention and chronic indwelling Ball, GERD, anemia of chronic disease, h/o recurrent UTIs, asymptomatic cholelithiasis, history of DVT on Coumadin since Feb 2017. He was placed on higher level of O2 requirement last night, delirium with hallucinations, and started on Unasyn to cover for aspiration PNA- had worsening CXR, long h/o aspiration. In your clinical opinion is this patient being managed for: (x ) Encephalopathy, resolved ( ) Not Agree ( ) Other explanation of clinical findings (Please Explain) ( ) Unable to determine (Please Define) ( ) Need to Discuss The medical record reflects the following clinical findings, treatment, and risk factors. Clinical Indicators: Episode of delirium with hallucinations, lethargic, O2 sat 90% on 4L nasal cannula Treatment: Increased O2 delivery, monitor patient, hold haldol Risk Factors: Age, acute hypoxemic respiratory failure Please clarify and document your clinical opinion in the progress notes and discharge summary. Terms such as "probable", "suspected", "likely", "questionable", "possible", or "still to be ruled out" are acceptable. IF IN AGREEMENT, YOU MUST DOCUMENT ABOVE DIAGNOSTIC STATEMENT IN DAILY PROGRESS NOTES AND DISCHARGE SUMMARY. This document is not part of the patient's record. Thank You, Celina Banegas RN [phone]
[2017-04-22] MEDS: DUTASTERIDE 0.5MG PO SCH ×2 (14:36)
[2017-04-22] MEDS: DULOXETINE HCL 60 MG CAP PO SCH (14:38)
[2017-04-22] MEDS: POLYETHYLENE (MIRALAX) 17 GM PACK PO SCH (14:38)
[2017-04-22 16:12] LABS: HEMATOCRIT 28.6 % (42-52)
--- NOTE | 2017-04-22 19:37 | Family Medicine Progress Note ---
Progress Note Date of Service Apr 22, 2017. Subjective Pt evaluation today including: conversation w/ patient, physical exam, chart review, lab review, review of studies Voiding: gomez catheter in place Pt is sitting up in bed during interview, resting comfortably. Says nurse tells him slightly darker stools noted in his collection this AM, but denies any pain. No events overnight. Constitutional: No chills Respiratory: No cough, No sputum Cardiovascular: No chest pain Abdomen: No pain, No nausea, No vomiting Objective Vital Signs Date Time Temp Pulse Resp B/P (MAP) Pulse Ox O2 Delivery O2 Flow Rate FiO2 04/22/17 21:30 78 90/57 (68) 04/22/17 20:00 72 90/48 (62) 04/22/17 19:56 36.1 84 24 83/49 (60) 100 Nasal Cannula 4.0 04/22/17 19:35 Nasal Cannula 4.0 04/22/17 16:15 36.6 98 24 96/57 (70) 100 Nasal Cannula 4.0 04/22/17 15:55 Nasal Cannula 4.0 04/22/17 11:40 Nasal Cannula 4.0 04/22/17 10:48 36.4 64 22 92/55 (67) 100 Nasal Cannula 3.0 04/22/17 08:00 Nasal Cannula 4.0 04/22/17 07:35 36.7 71 18 112/58 (76) 99 Nasal Cannula 4.0 04/22/17 05:54 36.5 89 23 127/64 94 Room Air 4.0 04/22/17 04:32 36.5 89 23 127/64 (85) 94 Nasal Cannula 4.0 04/22/17 04:00 Nasal Cannula 4.0 04/22/17 02:39 63 20 94 Nasal Cannula 3.5 04/22/17 00:17 36.8 74 18 117/67 (84) 100 Nasal Cannula 04/21/17 23:59 Nasal Cannula 4.0 Physical Exam General Appearance: WD/WN, no apparent distress Eyes: normal inspection, EOMI Respiratory/Chest: lungs clear, no respiratory distress, no accessory muscle use, + decreased breath sounds Cardiovascular: regular rate, rhythm, no gallop, no JVD Abdomen: normal bowel sounds, non tender, soft Assessment and Plan 86M here for BRBPR, hypotension, LQ abdominal pain, nausea. Pt also reports h/o self resolved hematuria. 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 GI Bleed Initial INR 4.5, Vit K and K Centra given in ED. Attempted colonoscopy 04/19, no active bleeding noted, but preparation was not adequate. Scheduled for EGD tomorrow. PPI BID Acute on chronic respiratory failure Chronically on 2L O2 at home. Acute failure evident on evening after colonoscopy. Received unasyn x2, but no other signs of PNA, afebrile, WBC wnl, mental status at baseline since yesterday. CXR today showed no worsening. Pulse ox improving, titrating to POx>92. Pulmonary nodules noted on CXR. Per radiology, recommend f/u chest CT 4-6 months. Delirium Resolved Likely due to hospital delirium Haldol IM prn, supportive care Chronic diastolic CHF CXR with progressive bibasilar haziness could be pulm edema, restarted torsemide at lower dose of 20mg daily on 04/20 Creatinine increased to 1.9 (from 1.6). Holding Torsamide for now till next Creatinine on 04/23 due to moderately low BP's and up trending K+, and overall clinical improvement. Follow I/Os Holding K+ replacement for now pending tomorrow's levels. CKD stage 3-4 Follow PRP, avoid nephrotoxins, renally dose all meds. Holding torsamide till next Cr level, as above. Hypokalemia goal to keep >4.0. Today 4.4 (up from 3.6), may also be due to insulin increase , will hold K+ supp for now, pending labs. Severe COPD, acute on chronic Goal to keep PO2>92. Currently at 99-100, will titrate. Cont combivent, advair and prn xopenex. Adrenal insufficiency continue fludrocortisone and Cortef CAD h/o extensive LAD stenting - no evidence of ACS. Will restart ASA and plavix on dc once stable. Cont statin, atenolol. DVT has completed nearly 3 months of Coumadin therapy post DVT, will likely not restart in context of GI bleed and subjective hematuria. DM II At home on Lantus 55 units hs, and NovoLog Mix 70/30 20 units in AM and 5 units in PM Titrated Lantus 20 units bid, added carb coverage. ISS with accuchecks ACHS BPH with h/o urinary retention requiring chronic indwelling Gomez, sees Urology annually, has Gomez changed out q1 month, last changeout 04/01/17 Continue dutasteride, methenamine hippurate, and tamsulosin. Continue monthly Gomez exchanges at [place]. Chronic neuropathic pain Gabapentin 800 mg tid, OxyContin 15 mg q12 Depression Duloxetine 30 mg Proph- SCDs, PPI DNR Dispo- to [facility] 2 days after completed scopes Continued [facility] stay due to: abnormal vital signs [facility]charge planning[facility] facility Resident Tracking Resident Involvement: Resident Care Provided Care Provided: Adult [facility] Medicine Reviewed: Pt Seen/Exam by Me History Resident Physician Supervision Note: I interviewed and examined the patient. Discussed with Dr. Hines and agree with findings and plan as documented in the note. Any exceptions or clarifications are listed here: Pt feeling well, SOB at baseline, had some blood in stool again this evening as per RN. Has minimal lower abd pain 86 y/o M w/Hx severe COPD, chronic aspiration, CAD s/p stent placement, HTN, PAF , chronic diastolic CHF, dyslipidemia, CKD 3-4, DMII, adrenal insufficiency, PAD , h/o CVA/TIA, Chronic pain syndrome, BPH with urinary retention and chronic indwelling Gomez, GERD, anemia of chronic disease, h/o recurrent UTIs, asymptomatic cholelithiasis, history of DVT on Coumadin since Feb 2017. Resides in a nursing facility. Pt has been admitted to the hospital 4 x this yr for pneumonia due to aspiration. On admission, he had developed diffuse lower quadrant abdominal pain, nausea, in addition to BRBPR. He denies CP, SOB, cough, dysuria. He does state that 2 days prior he had hematuria which resolved spontaneously. On arrival to the ER the pt was hypotensive with an SBP in the 80s. Initial labs were notable for an INR of 4.5 and a Hemoglobin of 6.9 from a baseline of 11. He received Vitamin K and K Centra in the ER to reverse his coumadin. GI bleed in setting of acute anemia - no clear abnormalities noted on CT abdomen. Abdominal pain is chronic and noted on previous admissions without etiology. Hgb in the 7s on rechecks. Could be mesenteric ischemia vs UGI bleed from PUD given chronic steroid use GI consulted and agree with colonoscopy. Colonoscopy completed 04/19, no active bleeding noted, but had old blood and poor prep throughout entire colon. Hg worsened to 6.9 again on 04/20, PRBCs 2 units given on admission, 1 unit given 04/20. Hgb fairly stable at 7-8 Some continued mild likely old bleeding -GI recommends EGD tomorrow and then possible repeat colonoscopy this week -increased PPI to bid -NPO after midnight tonight for EGD tomorrow Chronic Diastolic CHF. Echo noted Grade 1 diastolic dysfunction in 2014. Had diuretics held for 4 days due to hypotension on admission. BPs improved. 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 No other signs of PNA, afebrile, no leukocytosis, mental status totally at baseline now. Repeat CXR with nodular opacities which he has had waxing and waning previously. Overall improved at bases though -received Unasyn x 2 days --> then stopped Acute metabolic encephalopathy secondary to hypoxia and possible aspiration- likely due to hospital delirium vs aspiration as above-completely resolved, likely related to anesthesia vs aspiration after anesthesia? Haldol IM prn -anxiety can take ativan but Haldol better for delirium as d/w RN -supportive care CKD - stage 3-4 - creat is at baseline, today 1.9. Diuretics held on admission and provided gentle hydration, PRBC transfusions. -hold torsemide as above -follow PRP -avoid nephrotoxins and renally dose all meds Hypokalemia- related to loop diuretic -replace K+ to keep > 4.0 -follow lytes Severe COPD, Acute on Chronic respiratory failure - required 4 LNCand now weaning down , improving back to baseline O2 2LNC -continue supplemental O2 and wean down as tolerated to keep POx>92% -continue duonebs, PRN Xopenex. -continue Advair from home -Steroids are not indicated at present although he will receive Cortef for adrenal insufficiency. Adrenal insufficiency - will continue fludrocortisone and Cortef - although his low BP may have been due to blood loss,he received a stress dose of Cortef CAD - extensive LAD stenting - no evidence of ACS - cont B opal atenolol with parameters if BP stable. Cont statin - ASA and Plavix held in setting of acute bleed. Will restart on discharge if stable DVT - Diagnosed in february 2017, pt is on coumadin normally which has been reversed, hesitant about restarting due to drop in hg in light of normal endoscopy. Pt has also almost completed 3 months of treatment. -will not restart on discharge most likely -Repeat Doppler shows nonocclusive chronic thrombus left lower ext Reported hematuria 2 days prior - current UA is negative for occult blood or infection Diabetes mellitus II-glucose in 100s-200s here. HgbA1C 8.8% in 01/2017 - at home on Lantus 55 units hs, and NovoLog Mix 70/30 20 units in AM and 5 units in PM -restarted Lantus 10 units bid and will titrate up as needed - ISS with accuchecks ACHS BPH with h/o urinary retention requiring chronic indwelling Gomez, sees Urology annually, has Gomez changed out q1 month, last changeout 04/01/17 -continue dutasteride 0.5 mg by mouth daily, methenamine hippurate 1 g, and tamsulosin 0.4 mg -continue monthly Gomez exchanges at [place] Neuropathic pain/Chronic pain-stable - gabapentin 800 mg tid, OxyContin 15 mg q12 Depression-stable -duloxetine 30 mg Proph- SCDs, PPI DNR Dispo- to [facility] 2 days after completed scopes Documented By: Siria Hess
[2017-04-22] MEDS: METHENAMINE HIPPURATE 1 GM TAB PO SCH (21:20)
[2017-04-22] MEDS: ATORVASTATIN 20 MG TAB PO SCH (21:25)
[2017-04-22] MEDS: TAMSULOSIN HCL 0.4 MG CAP PO SCH (21:26)
[2017-04-23] VITALS (9 sets, daily range): BP systolic 93–109; BP diastolic 38–66; PULSE 69–98; TEMP 36.2–36.8; O2SAT 96–100
[2017-04-23] MEDS: INSULIN ASPART 100 UNITS/ML 3 ML PEN SC SCH ×4 (07:00→21:30)
[2017-04-23 08:16] LABS: BASO % 0.2 %; BASO ABS # 0.01 K/uL (0-0.2); EOS % 0.9 %; HEMATOCRIT 24.4 % (42-52); IG% 0.5 %; LYMPH ABS # 0.47 K/uL (1.2-3.4); MEAN CORPUSCULAR HEMOGLOBIN 27.7 pg (25-34); MEAN CORPUSCULAR HGB CONC 30.7 g/dl (32-36); MEAN PLATELET VOLUME 10.5 fL (7.4-10.4); MONO % 11.5 %; NEUT % 78.9 %; PLATELET COUNT 156 K/uL (130-400); RED BLOOD COUNT 2.71 M/uL (4.7-6.1); WHITE BLOOD COUNT 5.85 K/uL (4.8-10.8)
[2017-04-23 08:37] LABS: ANISOCYTOSIS PRESENT; COMPLETE YES; HYPERSEGMENTED POLYS 1+; HYPOCHROMIA PRESENT
[2017-04-23 08:48] LABS: BUN/CREATININE RATIO 11.6 (10-20); CALCIUM 8.2 mg/dl (8.5-10.1); CREATININE 1.6 mg/dl (0.60-1.40); MAGNESIUM 2.7 mg/dl (1.8-2.4); POTASSIUM 3.7 mmol/L (3.5-5.1)
[2017-04-23] MEDS ORDERED: KETAMINE HCL INJ 50 MG/ML 10 ML VIAL ONE (09:13)
[2017-04-23] MEDS ORDERED: PROPOFOL IV EMULSION 10 MG/ML 20 ML VIAL IV ONE (09:30)
--- NOTE | 2017-04-23 09:56 | GI REPORT ---
Procedure Date: 04/23/2017 9:23 AM Procedure: Upper GI endoscopy Indications: Melena Medicines: See the Anesthesia note for documentation of the administered medications Complications: No immediate complications. Estimated Blood Loss: Estimated blood loss: none. Procedure: Pre-Anesthesia Assessment: - Prior to the procedure, a History and Physical was performed, and patient medications, allergies and sensitivities were reviewed. The patient's tolerance of previous anesthesia was reviewed. - The risks and benefits of the procedure and the sedation options and risks were discussed with the patient. All questions were answered and informed consent was obtained. - Patient identification and proposed procedure were verified prior to the procedure by the physician and the nurse. The procedure was verified in the pre-procedure area. - Pre-procedure physical examination revealed no contraindications to sedation. - After reviewing the risks and benefits, the patient was deemed in satisfactory condition to undergo the procedure. After obtaining informed consent, the endoscope was passed under direct vision. Throughout the procedure, the patient's blood pressure, pulse, and oxygen saturations were monitored continuously. The Scope was introduced through the mouth, and advanced to the third part of duodenum. The upper GI endoscopy was accomplished without difficulty. The patient tolerated the procedure well. Findings: The esophagus was normal. The stomach was normal. The examined duodenum was normal. The cardia and gastric fundus were normal on retroflexion. Impression: - Normal esophagus. - Normal stomach. - Normal examined duodenum. - No specimens collected. Recommendation: - Return patient to hospital [facility] for ongoing care. Ramon Aaron M.D. Ramon Aaron MD 04/23/2017 9:55:41 AM This report has been signed electronically. Note Initiated On: 04/23/2017 9:23 AM I attest to the content of the Intraoperative Record and orders documented therein, exceptions below
--- NOTE | 2017-04-23 10:23 | Anesthesiology Progress Note ---
Anesthesia Post Op Note Date & Time Apr 23, 2017 at 10:23 Vital Signs Pain Intensity: 0 Vital Signs Past 12 Hours Date Time Temp Pulse Resp B/P (MAP) Pulse Ox O2 Delivery O2 Flow Rate FiO2 04/23/17 10:04 71 16 104/58 (73) 96 Nasal Cannula 3 04/23/17 09:45 80 16 99/70 (80) 99 Nasal Cannula 3 04/23/17 09:30 56 16 117/67 (84) 99 Oxymask 10 04/23/17 09:00 36.5 57 16 138/88 (105) 100 Oxymask 10 04/23/17 08:07 36.2 98 20 101/58 (72) 97 Nasal Cannula 4.0 04/23/17 08:00 96 Nasal Cannula 4.0 04/23/17 05:05 36.5 69 21 93/50 (64) 96 Nasal Cannula 4.0 04/23/17 04:00 Nasal Cannula 4.0 04/23/17 00:39 36.2 80 20 93/51 (65) 97 Nasal Cannula 4.0 04/22/17 23:59 Nasal Cannula 4.0 Notes Mental Status: alert / awake / arousable, participated in evaluation Pt Amnestic to Procedure: Yes Nausea / Vomiting: adequately controlled Pain: adequately controlled Airway Patency, RR, SpO2: stable & adequate BP & HR: stable & adequate Hydration State: stable & adequate Anesthetic Complications: no major complications apparent
[2017-04-23] MEDS: IPRATROPIUM BROMIDE/ALBUTEROL respimat INH INH SCH ×4 (10:28→21:17)
[2017-04-23] MEDS: FLUTICASONE PROPIONATE NA SPR 16 GM BTL SCH (10:28)
[2017-04-23] MEDS: FLUTICASONE/SALMETEROL 250/50 (ADVAIR) 14 PUFF/1 INHALER INH SCH ×2 (10:28→21:17)
[2017-04-23] MEDS: GUAIFENESIN 600 MG TABCR PO SCH ×2 (10:29→21:23)
[2017-04-23] MEDS: MAGNESIUM OXIDE 400 MG TAB PO SCH ×2 (10:29→21:22)
[2017-04-23] MEDS: PANTOprazole SOD 40 MG TAB PO SCH ×2 (10:30→21:24)
[2017-04-23] MEDS: POLYETHYLENE (MIRALAX) 17 GM PACK PO SCH (10:31)
[2017-04-23] MEDS: LIDODERM (LIDOCAINE) PATCH 5% TD SCH (10:31)
[2017-04-23] MEDS: GABAPENTIN 800 MG TAB PO SCH ×3 (10:32→21:23)
[2017-04-23] MEDS: FLUDROCORTISONE ACETATE 0.1 MG TAB PO SCH ×2 (10:32→21:21)
[2017-04-23] MEDS: HYDROCORTISONE 10 MG TAB PO SCH ×2 (10:34→21:20)
[2017-04-23] MEDS: DUTASTERIDE 0.5MG PO SCH ×2 (10:35)
[2017-04-23] MEDS: DULOXETINE HCL 60 MG CAP PO SCH (10:35)
[2017-04-23] MEDS: OXYCODONE HCL 15 MG TABCR (OXYCONTIN) PO SCH ×2 (10:37→21:24)
[2017-04-23] MEDS: INSULIN GLARGINE SOLOSTAR 100 UNITS/ML 3 ML PEN SC SCH ×2 (10:39→21:30)
--- NOTE | 2017-04-23 11:02 | Family Medicine Progress Note ---
Progress Note Date of Service Apr 23, 2017. Subjective Pt evaluation today including: conversation w/ patient, physical exam, chart review, lab review Voiding: no voiding problems Pt reports that he had bright red stool today. Per nurse, color was darker and closer to "onelia". Pt reports that his EGD procedure went well. Says he still feels out of breath, but no worsening of his breathing, no lightheadedness or syncope or palpitations. Pt anxious to complete colonoscopy procedure before DC. Respiratory: + cough, + wheezing, + shortness of breath, No sputum Cardiovascular: No chest pain, No palpitations Abdomen: + GI bleeding (as above), No pain, No nausea, No vomiting Medications Reported Home Medications Medications Dose Route/Sig Max Daily Dose Days Date Category Dose Instructions Zaroxolyn (Metolazone) 2.5 Mg Tab 2.5 Mg PO DAILY PRN 04/16/17 Reported 3 LBS IN 24HRS OR 5LBS IN 7 DAYS Coumadin (Warfarin Sodium) 2 Mg Tab 2 Mg PO HS 04/16/17 Reported Oxycontin (Oxycodone Hcl) 15 Mg Tab 15 Mg PO Q12 04/16/17 Reported Cortef (Hydrocortisone) 20 Mg Tab 40 Mg PO BID 04/16/17 Reported Florinef (Fludrocortisone Acetate) 0.1 Mg Tab 0.1 Mg PO BID 04/16/17 Reported Advair Diskus 250/50 60 Dose (Fluticasone Prop/Salmeterol) 1 Ea Aerp 1 Puff INH BID 04/16/17 Reported B-12 (Cyanocobalamin) 1,000 Mcg Tab 1,000 Mcg PO QAM 04/16/17 Reported Cymbalta (Duloxetine Hcl) 60 Mg Cap 60 Mg PO QAM 04/16/17 Reported Oxygen Gas 1 Liter NA PRN 03/13/17 Reported Ciclodan (Ciclopirox) 8 % Idania 1 Appln TOP QPM 03/13/17 Reported apply penlac 8% and ciclopirox 8% solution topically to thick finger and toenails once nightly Methenamine Hippurate 1 Gm Tab 1 Gm PO HS 03/01/17 Reported Novolog Mix 70/30 (Insulin Aspart Prota 70%/Aspart 30%) Susp 5 Units SQ QPM 03/01/17 Reported Novolog Mix 70/30 (Insulin Aspart Protamine & Asp) 1 Inj Inj 20 Units SQ QAM 03/01/17 Reported Flomax (Tamsulosin Hcl) 0.4 Mg Cap 0.4 Mg PO HS 03/01/17 Reported Lantus (Insulin Glargine) 100 Unit/Ml Inj 55 Unit SQ HS 03/01/17 Reported Famotidine 20 Mg Tab 20 Mg PO HS 03/01/17 Reported Dutasteride 0.5 Mg Cap 0.5 Mg PO DAILY 03/01/17 Reported Atorvastatin Calcium (Atorvastatin) 20 Mg Tab 20 Mg PO HS 03/01/17 Reported Combivent Respimat (Ipratropium-Albuterol) 1 Aer Aer 1 Puff INH QID 03/01/17 Reported Gabapentin 800 Mg Tab 800 Mg PO TID 03/01/17 Reported Fiber Laxative (Fiber) Ea 1 Tab PO DAILY 03/01/17 Reported Miralax (Polyethylene Glycol 3350) 1 Pow Pow 17 Gm PO BID 11/07/16 Reported Gas-X (Simethicone) 80 Mg Chw 80 Mg PO QID PRN 11/07/16 Reported Aspercreme (Trolamine Salicylate) 10 % Lot 1 Appln TOP BID PRN 11/07/16 Reported Tenormin (Atenolol) 25 Mg Tab 12.5 Mg PO DAILY 10/22/16 Reported Tylenol (Acetaminophen) 500 Mg Tab 1,000 Mg PO Q12 10/06/16 Reported TAKE AT 0800 & 2000 Colace (Docusate Sodium) 100 Mg Cap 100 Mg PO BID 10/06/16 Reported Levalbuterol HCl (Levalbuterol) 0.63 Mg/3 Ml Nebu 1 Vial NEB Q4 PRN 10/06/16 Reported Mucinex Ext Rel (Guaifenesin) 600 Mg Tabcr 1,200 Mg PO Q12 10/06/16 Reported Torsemide 20 Mg Tab 60 Mg PO QAM 30 10/05/16 Rx Prilosec (Omeprazole) 20 Mg Capcr 20 Mg PO DAILY 10/01/16 Reported Therems M (Multiple Vitamins W/ Minerals) 1 Tab Tab 1 Tab PO DAILY 08/17/16 Reported Nitrostat (Nitroglycerin) 0.4 Mg Tab 1 Tab SL UD PRN 08/17/16 Reported Lidocaine 1 Patch Tdsy 1 Patch TD QAM 30 07/21/16 Rx to back pain Fluticasone Propionate 50 Mcg/Act Spr 2 Sprays NA DAILY 30 07/21/16 Rx Mag-Ox (Magnesium Oxide) 400 Mg Tab 400 Mg PO BID 07/14/16 Reported Systane Ultra (Polyethylene Glycol-Propylene) 1 Idania Idania 1 Drops OPB BID 07/14/16 Reported Aspirin Chewable (Aspirin) 81 Mg Chew 81 Mg PO DAILY 11/08/14 Reported Bisacodyl 5 Mg Tab 5 Mg PO BID 10/09/14 Reported Plavix (Clopidogrel Bisulfate) 75 Mg Tab 75 Mg PO DAILY 07/15/14 Reported Current Inpatient Medications Medications (Trade) Dose Ordered Sig/Cole Route Start Time Stop Time Status Last Admin Dose Admin Acetaminophen (Tylenol Tab) 650 mg Q4H PRN PO 04/16/17 11:15 05/16/17 11:14 Ondansetron HCl (Zofran Inj) 4 mg Q6H PRN IV 04/16/17 11:15 05/16/17 11:14 04/18/17 09:15 4 MG Morphine Sulfate (MoRPHine SULFATE INJ) 2 mg Q30M PRN IV 04/16/17 11:15 04/30/17 11:14 Atenolol (Tenormin Tab) 12.5 mg DAILY PO 04/17/17 09:00 05/17/17 08:59 04/23/17 10:30 12.5 MG Atorvastatin Calcium (Lipitor Tab) 20 mg HS PO 04/16/17 21:00 05/16/17 20:59 04/22/17 21:25 20 MG Duloxetine HCl (Cymbalta Cap) 60 mg QAM PO 04/17/17 09:00 05/17/17 08:59 04/23/17 10:35 60 MG Fludrocortisone Acetate (Florinef Tab) 0.1 mg BID PO 04/16/17 21:00 05/16/17 20:59 04/23/17 10:32 0.1 MG Salmeterol Xinafoate/ Fluticasone (Advair Diskus 250/50 Inh) 1 puff BID INH 04/16/17 21:00 05/16/17 20:59 04/23/17 10:28 1 PUFF Fluticasone Propionate (Flonase Nasal [place]) 2 sprays DAILY NA 04/17/17 09:00 05/17/17 08:59 04/23/17 10:28 2 SPRAYS Gabapentin (Neurontin Tab) 800 mg TID PO 04/16/17 21:00 05/16/17 20:59 04/23/17 13:17 800 MG Guaifenesin (Mucinex Contr Rel Tab) 1,200 mg Q12 PO 04/16/17 21:00 05/16/17 20:59 04/23/17 10:29 1,200 MG Hydrocortisone (Cortef Tab) 40 mg BID PO 04/16/17 21:00 05/16/17 20:59 04/23/17 10:34 40 MG Albuterol/ Ipratropium (Combivent Respimat Inh) 2 puffs QID INH 04/16/17 21:00 05/16/17 20:59 04/23/17 13:17 2 PUFFS Levalbuterol (Xopenex 0.63 Mg/ 3 Ml Neb) 0.63 mg Q4R PRN INH 04/16/17 11:30 05/16/17 11:29 04/22/17 02:37 0.63 MG Lidocaine (Lidoderm Patch 5%) 1 patch QAM TD 04/16/17 13:30 05/16/17 13:29 04/23/17 10:31 1 PATCH Magnesium Oxide (Mag-Ox Tab) 400 mg BID PO 04/16/17 21:00 05/16/17 20:59 04/23/17 10:29 400 MG Methenamine Hippurate (Urex Tab) 1 gm HS PO 04/16/17 21:00 04/26/17 20:59 04/22/17 21:20 1 GM Oxycodone HCl (Oxycontin Tab) 15 mg Q12 PO 04/16/17 21:00 04/30/17 20:59 04/23/17 10:37 15 MG Simethicone (Mylicon Chew Tab) 80 mg QID PRN PO 04/16/17 11:30 05/16/17 11:29 Tamsulosin HCl (Flomax Cap) 0.4 mg HS PO 04/16/17 21:00 05/16/17 20:59 04/22/17 21:26 0.4 MG Miscellaneous Information (Order Awaiting Action) 1 ea QS N/A 04/16/17 16:00 05/16/17 15:59 04/20/17 20:40 1 EA Miscellaneous (Remove Lidoderm Patch) 1 ea DAILY@21 N/A 04/16/17 21:00 05/16/17 20:59 04/22/17 21:00 1 EA Glucose (Glucose 40% Gel) 15-30 GRAMS 15 GRAMS... UD PRN PO 04/16/17 14:00 05/16/17 13:59 Glucose (Glucose Chew Tab) 4-8 Tablets 4 Tabl... UD PRN PO 04/16/17 14:00 05/16/17 13:59 Dextrose (Dextrose 50% 50ML Syringe) 25-50ML OF 50% DW IV FOR... UD PRN IV 04/16/17 14:00 05/16/17 13:59 Glucagon (Glucagon Inj) 1 mg UD PRN SQ 04/16/17 14:00 05/16/17 13:59 Insulin Aspart (novoLOG ASPART) SLIDING SCALE G... ACHS SC 04/17/17 16:15 05/16/17 17:59 04/23/17 11:57 7 UNITS Dutasteride (Avodart) 0.5 mg DAILY PO 04/18/17 09:00 05/18/17 08:59 04/23/17 10:35 0.5 MG Docusate Sodium (coLACE CAP) 100 mg PRN PRN PO 04/17/17 20:00 05/17/17 19:59 04/17/17 22:25 100 MG Polyethylene Glycol/ Electrolytes (Golytely Soln) 1 dose UD PO 04/18/17 17:00 05/18/17 16:59 Pantoprazole Sodium (Protonix Tab) 40 mg BID PO 04/20/17 21:00 05/20/17 20:59 04/23/17 10:30 40 MG Torsemide (Demadex Tab) 20 mg QAM PO 04/21/17 09:00 05/21/17 08:59 Future Hold 04/22/17 07:43 20 MG Lorazepam (Ativan Tab) 0.5 mg Q8 PRN PO 04/20/17 15:15 05/20/17 15:14 Haloperidol Lactate (Haldol Inj) 5 mg HS PRN IM 04/20/17 15:15 05/20/17 15:14 Potassium Chloride (Klor-Con M10) 20 meq BID PO 04/21/17 11:00 05/21/17 10:59 Future Hold 04/22/17 07:03 20 MEQ Polyethylene (Miralax Powder Packet) 17 gm QAM PO 04/21/17 13:00 05/21/17 12:59 04/23/17 10:31 17 GM Insulin Glargine (Lantus Solostar Pen) 15 units BID SC 04/22/17 21:00 05/20/17 20:59 04/23/17 10:39 15 UNITS Objective Vital Signs Date Time Temp Pulse Resp B/P (MAP) Pulse Ox O2 Delivery O2 Flow Rate FiO2 04/23/17 16:26 36.7 79 18 109/62 (78) 96 Nasal Cannula 4.0 04/23/17 12:00 96 Nasal Cannula 4.0 04/23/17 11:48 36.3 74 22 95/55 (68) 99 Nasal Cannula 4.0 04/23/17 10:04 71 16 104/58 (73) 96 Nasal Cannula 3 04/23/17 09:45 80 16 99/70 (80) 99 Nasal Cannula 3 04/23/17 09:30 56 16 117/67 (84) 99 Oxymask 10 04/23/17 09:00 36.5 57 16 138/88 (105) 100 Oxymask 10 04/23/17 08:07 36.2 98 20 101/58 (72) 97 Nasal Cannula 4.0 04/23/17 08:00 96 Nasal Cannula 4.0 04/23/17 05:05 36.5 69 21 93/50 (64) 96 Nasal Cannula 4.0 04/23/17 04:00 Nasal Cannula 4.0 04/23/17 00:39 36.2 80 20 93/51 (65) 97 Nasal Cannula 4.0 04/22/17 23:59 Nasal Cannula 4.0 04/22/17 21:30 78 90/57 (68) 04/22/17 20:00 72 90/48 (62) 04/22/17 19:56 36.1 84 24 83/49 (60) 100 Nasal Cannula 4.0 04/22/17 19:35 Nasal Cannula 4.0 Physical Exam General Appearance: WD/WN, no apparent distress Eyes: normal inspection, EOMI Respiratory/Chest: no accessory muscle use, + wheezing (bilaterally) Cardiovascular: regular rate, rhythm, no gallop, no JVD Abdomen: normal bowel sounds, non tender, soft Extremities: non-tender, normal inspection, no pedal edema 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: alert, normal mood/affect Assessment and Plan 86M here for BRBPR, hypotension, LQ abdominal pain, nausea. Pt also reports h/o self resolved hematuria. 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 Hospital Day: 7 GI Bleed Per pt, bright red stool today, denies lightheadedness or syncope or abdominal pain. Per nurse, stools were darker "onelia" color. INR 1.0 today. Initial INR 4.5, Vit K and K Centra given in ED. - Attempted colonoscopy 04/19, no active bleeding noted, but preparation was not adequate. EGD performed today04/23 shows no abnormalities. Discussed with GI, decision made to not perform repeat colonoscopy, assessing benefits (looking for AVM vs mesenteric ischemia) and risks (perforation, h/o decompensation post procedure, multiple scopes in frail pt). Additionally, per cardio notes from previous admission in 2014, recommendation made to stop plavix , citing ASA as sufficient therapy. With h/o bleeding and little benefit added by continuing, will not restart plavix on discharge. PPI BID. Will restart ASA tomorrow. Anemia in setting of GI bleed if hgb below 7.5 in AM lab tomorrow, will give 1 more unit of blood Will recommend follow cbc once within 2-3 days outpt, then 1 week later, then monthly. Acute on chronic respiratory failure Chronically on 2L O2 at home. Acute failure evident on evening after colonoscopy. Received unasyn x2, but no other signs of PNA, afebrile, WBC wnl, mental status at baseline since yesterday. CXR 04/22 showed no worsening. Pulse ox improving, 97 on 4L. Continue titrating to POx>92. Pulmonary nodules noted on CXR. Per radiology, recommend f/u chest CT 4-6 months. Delirium Resolved Likely due to hospital delirium Haldol IM prn, supportive care Chronic diastolic CHF CXR with progressive bibasilar haziness could be pulm edema, restarted torsemide at lower dose of 20mg daily on 04/20, but Alarm Signaler began trending up so held. Creatinine back to baseline today (1.6), restarting torsemide. Cont Atenolol, Follow I/Os. CKD stage 3-4 Follow PRP, avoid nephrotoxins, renally dose all meds. Alarm Signaler bumped up to 1.9 yesterday. Held torsamide till next Cr level, today which is 1.6. Consider restarting. Hypokalemia goal to keep >4.0. Yesterday was 4.4 (up from 3.6), may also be due to insulin increase, held K+ supp yesterday. K+ 3.7 today. Will restart K+. Severe COPD, acute on chronic Goal to keep PO2>92. Currently at 99-100, will titrate. Cont combivent, advair and prn xopenex, also on discharge. Adrenal insufficiency continue fludrocortisone and Cortef CAD h/o extensive LAD stenting - no evidence of ACS. Will restart ASA tomorrow. Plavix stopped as above. Cont statin, atenolol. DVT has completed nearly 3 months of Coumadin therapy post DVT, will likely not restart in context of GI bleed and subjective hematuria. DM II At home on Lantus 55 units hs, and NovoLog Mix 70/30 20 units in AM and 5 units in PM Titrated Lantus 20 units bid, added carb coverage. BSG 140-180s now. ISS with accuchecks ACHS BPH with h/o urinary retention requiring chronic indwelling Ball, sees Urology annually, has Ball changed out q1 month, last changeout 04/01/17 Continue dutasteride, methenamine hippurate, and tamsulosin. Continue monthly Ball exchanges at [place]. Chronic neuropathic pain Gabapentin 800 mg tid, OxyContin 15 mg q12 Depression Duloxetine 30 mg Proph- SCDs, PPI DNR Dispo- likely discharge tomorrow to [facility] Continued [facility] stay due to: multiple IV medications needed Discharge planning: halfway facility Resident Tracking Resident Involvement: Resident Care Provided Care Provided: Adult Hospital Medicine Reviewed: Pt Seen/Exam by Me History Resident Physician Supervision Note: I interviewed and examined the patient. Discussed with Dr. Hines and agree with findings and plan as documented in the note. Any exceptions or clarifications are listed here: Some small amount of blood in stool today, no abd pain, hgb stable. Breathing at baseline level of dyspnea. Discussed case with Dr. Aaron at length on phone today regarding utility of repeat colonoscopy. Reviewed old Cardiology records as to why on DAPT and was supposed to have been discontinued from Plavix in 09/2014 but was never done for unclear reasons. and pt not comfortable with ever going back on coumadin given this is not his first GI bleed. Vitals and tele reviewed NAD, sitting in chair, AAOx3 RRR no mgr Lungs diminished at bases but CTAB no wcr Abd _BS, soft, NT ND, obese Ext 2+ pitting edema : Ball in place draining clear yellow urine, no sediment 86 y/o M w/Hx severe COPD, chronic aspiration, CAD s/p stent placement, HTN, PAF , chronic diastolic CHF, dyslipidemia, CKD 3-4, DMII, adrenal insufficiency, PAD , h/o CVA/TIA, Chronic pain syndrome, BPH with urinary retention and chronic indwelling Ball, GERD, anemia of chronic disease, h/o recurrent UTIs, asymptomatic cholelithiasis, history of DVT on Coumadin since Feb 2017. Resides in a nursing facility. Pt has been admitted to the hospital 4 x this yr for pneumonia due to aspiration. On admission, he had developed diffuse lower quadrant abdominal pain, nausea, in addition to BRBPR. He denies CP, SOB, cough, dysuria. He does state that 2 days prior he had hematuria which resolved spontaneously. On arrival to the ER the pt was hypotensive with an SBP in the 80s. Initial labs were notable for an INR of 4.5 and a Hemoglobin of 6.9 from a baseline of 11. He received Vitamin K and K Centra in the ER to reverse his coumadin. GI bleed in setting of acute anemia - no clear abnormalities noted on CT abdomen. Abdominal pain is chronic and noted on previous admissions without etiology. Hgb in the 7s on rechecks and reamains stable, likely mesenteric ischemia. EGD normal GI consulted and agree with colonoscopy. Colonoscopy completed 04/19, no active bleeding noted, but had old blood and poor prep throughout entire colon. Hg worsened to 6.9 again on 04/20, PRBCs 2 units given on admission, 1 unit given 04/20. Hgb fairly stable at 7-8 Some continued mild likely old bleeding today in stool but hgb stable Risk of repeating colonoscopy outweighs benefit -continue increased PPI to bid -recommend restarting ASA, permanently dc Plavix, will not go back on coumadin -dc to home tomorrow if Hgb not dropped, may need 1 more unit of PRBCs if Hgb< 7.5 -recommend checking CBC in 2-3 days after dc and then in 1 week and then monthly if stable Chronic Diastolic CHF. Echo noted Grade 1 diastolic dysfunction in 2014. Had diuretics held for 4 days due to hypotension on admission. BPs improved. CXR with progressive bibasilar haziness could be pulm edema -restarted torsemide at lower dose of 20mg daily on 04/20, diuresing, but electrical sign wirer helper up a bit, held torsemide -restart torsemide at lower dose on dc and titrate up as able to -follow I/Os -CXR improved after diuresis -continue K+ replacement prn Acute on chronic hypoxemic respiratory failure-required higher O2 level on evening after colonoscopy, h/o recurrent aspiration, CXR worsened at bases pulm edema vs aspiration PNA? No other signs of PNA, afebrile, no leukocytosis, mental status totally at baseline now. Repeat CXR with nodular opacities which he has had waxing and waning previously. Overall improved at bases though. Doing very well, turned O2 back to 2LNC as POx too high -received Unasyn x 2 days --> then stopped -continue chronic O2 -repeat Chest CT in 4-6 months Acute metabolic encephalopathy secondary to hypoxia and possible aspiration- likely due to hospital delirium vs aspiration as above-completely resolved, likely related to anesthesia vs aspiration after anesthesia? Haldol IM prn -supportive care CKD - stage 3-4 - creat is at baseline, today 1.6. Diuretics held on admission and provided gentle hydration, PRBC transfusions. -restart torsemide as above -follow PRP -avoid nephrotoxins and renally dose all meds Hypokalemia- related to loop diuretic -replace K+ to keep > 4.0 -follow lytes Severe COPD, Acute on Chronic respiratory failure - required 4 LNCand now weaning down , improving back to baseline O2 2LNC -continue supplemental O2 and wean down as tolerated to keep POx>92% -continue duonebs, PRN Xopenex. -continue Advair from home -Steroids are not indicated at present although he will receive Cortef for adrenal insufficiency. Adrenal insufficiency/Orthostatic hypotension - will continue fludrocortisone and Cortef - although his low BP may have been due to blood loss,he received a stress dose of Cortef CAD - extensive LAD stenting remotely over 10 years ago - no evidence of ACS here - cont B opal atenolol with parameters if BP stable. Cont statin - ASA and Plavix held in setting of acute bleed. Was no longer indicated to be on Plavix as per Cardio recommendation 09/2014 admission -STOP Plavix,, discussed with pt and -restart ASA on dc tomorrow DVT - Diagnosed in february 2017, pt is on coumadin normally which has been reversed, hesitant about restarting due to drop in hg in light of normal endoscopy. Pt has also almost completed 3 months of treatment. -will not restart on discharge -Repeat Doppler shows nonocclusive chronic thrombus left lower ext Reported hematuria 2 days prior - current UA is negative for occult blood or infection Diabetes mellitus II-glucose in 100s-200s here. HgbA1C 8.8% in 01/2017 - at home on Lantus 55 units hs, and NovoLog Mix 70/30 20 units in AM and 5 units in PM -increase Lantus 20 units bid and will titrate up as needed - ISS with accuchecks ACHS BPH with h/o urinary retention requiring chronic indwelling Ball, sees Urology annually, has Ball changed out q1 month, last changeout 04/01/17 -continue dutasteride 0.5 mg by mouth daily, methenamine hippurate 1 g, and tamsulosin 0.4 mg -continue monthly Ball exchanges at [place] Neuropathic pain/Chronic pain-stable - gabapentin 800 mg tid, OxyContin 15 mg q12 Depression-stable -duloxetine 30 mg Proph- SCDs, PPI DNR Dispo- to [facility] in 1 day if Hgb remains stable Documented By: Siria Hess
[2017-04-23] MEDS: ATORVASTATIN 20 MG TAB PO SCH (21:22)
[2017-04-23] MEDS: METHENAMINE HIPPURATE 1 GM TAB PO SCH (21:25)
[2017-04-23] MEDS: TAMSULOSIN HCL 0.4 MG CAP PO SCH (21:27)
[2017-04-24 03:00] VITALS: BP 93/57; PULSE 73; TEMP 36.8; O2SAT 93
[2017-04-24 07:40] LABS: BASO % 0.2 %; BASO ABS # 0.01 K/uL (0-0.2); EOS % 0.8 %; HEMATOCRIT 25.8 % (42-52); IG% 0.3 %; LYMPH % 9.1 %; LYMPH ABS # 0.54 K/uL (1.2-3.4); MEAN CELL VOLUME 89.3 fL (80-100); MEAN CORPUSCULAR HEMOGLOBIN 28.4 pg (25-34); MEAN CORPUSCULAR HGB CONC 31.8 g/dl (32-36); MONO % 11.1 %; NEUT % 78.5 %; PLATELET COUNT 191 K/uL (130-400); RED BLOOD COUNT 2.89 M/uL (4.7-6.1); WHITE BLOOD COUNT 5.95 K/uL (4.8-10.8)
[2017-04-24 07:52] VITALS: BP 119/72; PULSE 80; TEMP 37.2; O2SAT 98
[2017-04-24 08:00] VITALS: O2SAT 96
[2017-04-24 08:09] LABS: ANISOCYTOSIS PRESENT; BUN/CREATININE RATIO 9.5 (10-20); CALCIUM 8.5 mg/dl (8.5-10.1); COMPLETE YES; CREATININE 1.7 mg/dl (0.60-1.40); HYPOCHROMIA PRESENT; POTASSIUM 3.6 mmol/L (3.5-5.1)
[2017-04-24] MEDS: OXYCODONE HCL 15 MG TABCR (OXYCONTIN) PO SCH (08:16)
[2017-04-24] MEDS: DUTASTERIDE 0.5MG PO SCH ×2 (08:17)
[2017-04-24] MEDS: POLYETHYLENE (MIRALAX) 17 GM PACK PO SCH (08:17)
[2017-04-24] MEDS: LIDODERM (LIDOCAINE) PATCH 5% TD SCH (08:17)
[2017-04-24] MEDS: GUAIFENESIN 600 MG TABCR PO SCH (08:18)
[2017-04-24] MEDS: GABAPENTIN 800 MG TAB PO SCH ×2 (08:18→13:07)
[2017-04-24] MEDS: DULOXETINE HCL 60 MG CAP PO SCH (08:18)
[2017-04-24] MEDS: PANTOprazole SOD 40 MG TAB PO SCH (08:18)
[2017-04-24] MEDS: MAGNESIUM OXIDE 400 MG TAB PO SCH (08:18)
[2017-04-24] MEDS: FLUDROCORTISONE ACETATE 0.1 MG TAB PO SCH (08:19)
[2017-04-24] MEDS: POTASSIUM CHLORIDE 10 MEQ TABCR PO SCH (08:20)
[2017-04-24] MEDS: HYDROCORTISONE 10 MG TAB PO SCH (08:20)
[2017-04-24] MEDS: TORSEMIDE 20 MG TAB PO SCH (08:21)
[2017-04-24] MEDS: FLUTICASONE/SALMETEROL 250/50 (ADVAIR) 14 PUFF/1 INHALER INH SCH (08:22)
[2017-04-24] MEDS: FLUTICASONE PROPIONATE NA SPR 16 GM BTL SCH (08:22)
[2017-04-24] MEDS: IPRATROPIUM BROMIDE/ALBUTEROL respimat INH INH SCH ×2 (08:23→13:06)
[2017-04-24] MEDS: INSULIN ASPART 100 UNITS/ML 3 ML PEN SC SCH ×2 (08:25→11:50)
[2017-04-24] MEDS: INSULIN GLARGINE SOLOSTAR 100 UNITS/ML 3 ML PEN SC SCH (08:26)
[2017-04-24] MEDS ORDERED: ASPIRIN 81 MG ECTAB PO SCH (09:00)
--- NOTE | 2017-04-24 10:17 | Gastroenterology Progress Note ---
Progress Note Date of Service: Apr 24, 2017 Subjective Pt evaluation today including: conversation w/ patient, physical exam, chart review pt was seen and evaluated, no acute events overnight. Had EGD yesterday, tolerated well. No source of GI blood loss identified. Tolerated regular breakfast this AM. He had a BM this morning which was normal. No more black/ bloody stools. H&H stable. No GI complaints. He continue to feel SOB. Review of Systems Constitutional: No fever, No chills Respiratory: + shortness of breath, No cough Cardiac: No chest pain, No edema Abdomen: No pain, No nausea, No vomiting, No diarrhea, No constipation, No GI bleeding Medications Current Inpatient Medications Medications (Trade) Dose Ordered Sig/Cole Route Start Time Stop Time Status Last Admin Dose Admin Acetaminophen (Tylenol Tab) 650 mg Q4H PRN PO 04/16/17 11:15 05/16/17 11:14 Ondansetron HCl (Zofran Inj) 4 mg Q6H PRN IV 04/16/17 11:15 05/16/17 11:14 04/18/17 09:15 4 MG Morphine Sulfate (MoRPHine SULFATE INJ) 2 mg Q30M PRN IV 04/16/17 11:15 04/30/17 11:14 Atenolol (Tenormin Tab) 12.5 mg DAILY PO 04/17/17 09:00 05/17/17 08:59 04/24/17 08:19 12.5 MG Atorvastatin Calcium (Lipitor Tab) 20 mg HS PO 04/16/17 21:00 05/16/17 20:59 04/23/17 21:22 20 MG Duloxetine HCl (Cymbalta Cap) 60 mg QAM PO 04/17/17 09:00 05/17/17 08:59 04/24/17 08:18 60 MG Fludrocortisone Acetate (Florinef Tab) 0.1 mg BID PO 04/16/17 21:00 05/16/17 20:59 04/24/17 08:19 0.1 MG Salmeterol Xinafoate/ Fluticasone (Advair Diskus 250/50 Inh) 1 puff BID INH 04/16/17 21:00 05/16/17 20:59 04/24/17 08:22 1 PUFF Fluticasone Propionate (Flonase Nasal [place]) 2 sprays DAILY NA 04/17/17 09:00 05/17/17 08:59 04/24/17 08:22 2 SPRAYS Gabapentin (Neurontin Tab) 800 mg TID PO 04/16/17 21:00 05/16/17 20:59 04/24/17 08:18 800 MG Guaifenesin (Mucinex Contr Rel Tab) 1,200 mg Q12 PO 04/16/17 21:00 05/16/17 20:59 04/24/17 08:18 1,200 MG Hydrocortisone (Cortef Tab) 40 mg BID PO 04/16/17 21:00 05/16/17 20:59 04/24/17 08:20 40 MG Albuterol/ Ipratropium (Combivent Respimat Inh) 2 puffs QID INH 04/16/17 21:00 05/16/17 20:59 04/24/17 08:23 2 PUFFS Levalbuterol (Xopenex 0.63 Mg/ 3 Ml Neb) 0.63 mg Q4R PRN INH 04/16/17 11:30 05/16/17 11:29 04/22/17 02:37 0.63 MG Lidocaine (Lidoderm Patch 5%) 1 patch QAM TD 04/16/17 13:30 05/16/17 13:29 04/24/17 08:17 1 PATCH Magnesium Oxide (Mag-Ox Tab) 400 mg BID PO 04/16/17 21:00 05/16/17 20:59 04/24/17 08:18 400 MG Methenamine Hippurate (Urex Tab) 1 gm HS PO 04/16/17 21:00 04/26/17 20:59 04/23/17 21:25 1 GM Oxycodone HCl (Oxycontin Tab) 15 mg Q12 PO 04/16/17 21:00 04/30/17 20:59 04/24/17 08:16 15 MG Simethicone (Mylicon Chew Tab) 80 mg QID PRN PO 04/16/17 11:30 05/16/17 11:29 Tamsulosin HCl (Flomax Cap) 0.4 mg HS PO 04/16/17 21:00 05/16/17 20:59 04/23/17 21:27 0.4 MG Miscellaneous Information (Order Awaiting Action) 1 ea QS N/A 04/16/17 16:00 05/16/17 15:59 04/20/17 20:40 1 EA Miscellaneous (Remove Lidoderm Patch) 1 ea DAILY@21 N/A 04/16/17 21:00 05/16/17 20:59 04/22/17 21:00 1 EA Glucose (Glucose 40% Gel) 15-30 GRAMS 15 GRAMS... UD PRN PO 04/16/17 14:00 05/16/17 13:59 Glucose (Glucose Chew Tab) 4-8 Tablets 4 Tabl... UD PRN PO 04/16/17 14:00 05/16/17 13:59 Dextrose (Dextrose 50% 50ML Syringe) 25-50ML OF 50% DW IV FOR... UD PRN IV 04/16/17 14:00 05/16/17 13:59 Glucagon (Glucagon Inj) 1 mg UD PRN SQ 04/16/17 14:00 05/16/17 13:59 Insulin Aspart (novoLOG ASPART) SLIDING SCALE G... ACHS SC 04/17/17 16:15 05/16/17 17:59 04/24/17 08:25 7 UNITS Dutasteride (Avodart) 0.5 mg DAILY PO 04/18/17 09:00 05/18/17 08:59 04/24/17 08:17 0.5 MG Docusate Sodium (coLACE CAP) 100 mg PRN PRN PO 04/17/17 20:00 05/17/17 19:59 04/17/17 22:25 100 MG Polyethylene Glycol/ Electrolytes (Golytely Soln) 1 dose UD PO 04/18/17 17:00 05/18/17 16:59 Pantoprazole Sodium (Protonix Tab) 40 mg BID PO 04/20/17 21:00 05/20/17 20:59 04/24/17 08:18 40 MG Torsemide (Demadex Tab) 20 mg QAM PO 04/21/17 09:00 05/21/17 08:59 Future hold 04/24/17 08:21 20 MG Haloperidol Lactate (Haldol Inj) 5 mg HS PRN IM 04/20/17 15:15 05/20/17 15:14 Potassium Chloride (Klor-Con M10) 20 meq BID PO 04/21/17 11:00 05/21/17 10:59 Future hold 04/24/17 08:20 20 MEQ Polyethylene (Miralax Powder Packet) 17 gm QAM PO 04/21/17 13:00 05/21/17 12:59 04/24/17 08:17 17 GM Insulin Glargine (Lantus Solostar Pen) 15 units BID SC 04/22/17 21:00 05/20/17 20:59 04/24/17 08:26 15 UNITS Aspirin (Ecotrin Tab) 81 mg QAM PO 04/24/17 09:00 05/24/17 08:59 04/24/17 08:22 81 MG Objective Vital Signs Date Time Temp Pulse Resp B/P (MAP) Pulse Ox O2 Delivery O2 Flow Rate FiO2 04/24/17 08:00 96 Nasal Cannula 4.0 04/24/17 07:52 37.2 80 18 119/72 (88) 98 Nasal Cannula 2.0 04/24/17 04:00 Nasal Cannula 2.0 04/24/17 03:00 36.8 73 18 93/57 (69) 93 Nasal Cannula 2.0 04/23/17 23:59 Nasal Cannula 2.0 04/23/17 23:40 36.4 73 20 96/38 (57) 100 Nasal Cannula 2.0 04/23/17 20:00 Nasal Cannula 2.0 04/23/17 19:25 36.8 79 18 100/66 (77) 98 Room Air 04/23/17 16:26 36.7 79 18 109/62 (78) 96 Nasal Cannula 4.0 04/23/17 16:00 Nasal Cannula 2.0 04/23/17 12:00 96 Nasal Cannula 4.0 04/23/17 11:48 36.3 74 22 95/55 (68) 99 Nasal Cannula 4.0 Physical Exam General Appearance: no apparent distress Eyes: PERRL ENT: hearing grossly normal Neck: supple Respiratory/Chest: lungs clear, normal breath sounds Cardiovascular: regular rate, rhythm, no edema Abdomen: normal bowel sounds, non tender, soft, no organomegaly Neurologic/Psych: alert, normal mood/affect, oriented x 3 Skin: normal color Laboratory Results Last 24 Hours Test 04/23/17 11:30 04/23/17 16:24 04/23/17 20:53 04/24/17 07:24 Bedside Glucose 167 mg/dl 158 mg/dl 207 mg/dl White Blood Count 5.95 K/uL Red Blood Count 2.89 M/uL Hemoglobin 8.2 g/dL Hematocrit 25.8 % Mean Corpuscular Volume 89.3 fL Mean Corpuscular Hemoglobin 28.4 pg Mean Corpuscular Hemoglobin Concent 31.8 g/dl Platelet Count 191 K/uL Mean Platelet Volume 11.0 fL Neutrophils (%) (Auto) 78.5 % Lymphocytes (%) (Auto) 9.1 % Monocytes (%) (Auto) 11.1 % Eosinophils (%) (Auto) 0.8 % Basophils (%) (Auto) 0.2 % Neutrophils # (Auto) 4.67 K/uL Lymphocytes # (Auto) 0.54 K/uL Monocytes # (Auto) 0.66 K/uL Eosinophils # (Auto) 0.05 K/uL Basophils # (Auto) 0.01 K/uL RDW Standard Deviation 56.8 fL RDW Coefficient of Variation 17.5 % Immature Granulocyte % (Auto) 0.3 % Immature Granulocyte # (Auto) 0.02 K/uL Nucleated RBC Absolute Count (auto) 0.03 K/uL Nucleated Red Blood Cells % 0.6 % Hypochromasia PRESENT Anisocytosis PRESENT Sodium Level 142 mmol/L Potassium Level 3.6 mmol/L Chloride Level 104 mmol/L Carbon Dioxide Level 33 mmol/L Anion Gap 5.0 mmol/L Blood Urea Nitrogen 16 mg/dl Creatinine 1.70 mg/dl Est Creatinine Clear Calc Drug Dose 39.8 ml/min Estimated GFR () 41.4 Estimated GFR (Non- 35.7 BUN/Creatinine Ratio 9.5 Random Glucose 159 mg/dl Calcium Level 8.5 mg/dl Assessment and Plan 86 year old male admitted for lethargy, previously having low appetite, c/o abd pain, and found to have BRBPR in residential in the setting of a supratherapeutic INR. - Colonoscopy on Saturday with a poor prep no active bleeding was seen. - EGD yesterday without any source of bleeding identified - H&H stable GI to sign off. Please re-consult with any questions or concerns. I performed a history and physical examination of the patient. I have discussed the patient's case, impression and plan with MARCELO Domingo. Her note reflects my findings and plan. Doing well. I do not recommend a colonoscopy. He can go back on his Coumadin but with tight INR control. Ramon Aaron MD
[2017-04-24 12:00] VITALS: BP 130/72; PULSE 92; TEMP 37.4; O2SAT 93; O2SAT 96
[2017-04-24] MEDS ORDERED: DMD20 PO (12:39)
--- NOTE | 2017-04-24 12:45 | Discharge Instructions ---
Discharge Instructions Date of Service Apr 24, 2017. Admission Reason for Admission: Lower Gi Bleed Discharge Discharge Diagnosis / Problem: GI bleed Discharge Goals Goal(s): Decrease discomfort, Diagnostic testing, Screening, Prevent Disease Progression Activity Recommendations Activity Limitations: as noted below Lifting Limitations: gradually increase as tolerated Exercise/Sports Limitations: as tolerated May Resume Sexual Activity: when tolerated Shower/Bathe: no limitations Driving or Machine Use: No driving while on oxycontin . Instructions / Follow-Up Instructions / Follow-Up Mr. Enciso, [place] were admitted due to rectal bleeding. Your blood count was low and you received a total of 3 units of blood during your stay. Please have repeat Blood work on Apr 26 to recheck your blood counts. You had An upper and lower endoscopy which did not reveal the source of bleeding. We think it may be related to your plavix and/or coumadin (blood thinners). Please stop taking these and take Aspirin 81 mg instead. We also lowered your dose of Torsemide to 20 mg twice daily (from 60mg). Please follow up with your PCP and cardiology If you experience dizziness, lightheadedness, chest pain, shortness of breath or any further bleeding, Please call your PCP or come to the ER. Thank you for allowing us to participate in your care. Current Hospital Diet Patient's current hospital diet: Diabetes Type 2 Diet Discharge Diet Recommended Diet: AHA Diet (Heart Healthy) Procedures Procedures Performed: EGD Colonoscopy Pending Studies Studies pending at discharge: no Laboratory Results Hemoglobin A1c Test 01/22/17 07:24 Range/Units Estimated Average Glucose 206 mg/dl Hemoglobin A1c 8.8 H 4.5-5.6 % Medical Emergencies . Who to Call and When: Medical Emergencies: If at any time you feel your situation is an emergency, please call 911 immediately. . Non-Emergent Contact Non-Emergency issues call your: Primary Care Provider . . "Provider Documentation" section prepared by Chelsie Smith. . VTE Core Measure Inpt VTE Proph given/why not?: SCD's
[2017-04-24 14:37] VITALS: BP 130/72; PULSE 92; TEMP 37.4; O2SAT 93
--- NOTE | 2017-04-24 23:41 | Discharge Summary ---
Discharge Summary Date of Service Apr 24, 2017. (Tara Hines M.D.) Discharge Summary Admission Date: Apr 16, 2017 at 12:10 Discharge Date: Apr 24, 2017 Discharge Disposition: care home facility Principal Diagnosis: Lower gastrointestinal bleed while on plavix and coumadin Immunizations: Have You Had Influenza Vaccine: Yes Influenza Vaccine Date: Jun 08, 2013 History of Tetanus Vaccine?: Unknown History of Pneumococcal: Yes History of Hepatitis B Vaccine: Unknown Procedures: Endogastroduodenoscopy Colonoscopy Consultations: Gastroenterology (Tara Hines M.D.) Medication Reconciliation New Medications: Torsemide (Torsemide) 20 Mg Tab 20 MG PO BID for 30 Days, #60 TAB Continued Medications: Acetaminophen (Tylenol) 500 Mg Tab 1000 MG PO Q12 TAKE AT 0800 & 2000 Aspirin (Aspirin Chewable) 81 Mg Chew 81 MG PO DAILY Atenolol (Tenormin) 25 Mg Tab 12.5 MG PO DAILY, TAB Atorvastatin (Atorvastatin Calcium) 20 Mg Tab 20 MG PO HS, #28 Bisacodyl (Bisacodyl) 5 Mg Tab 5 MG PO BID Ciclopirox (Ciclodan) 8 % Idania 1 APPLN TOP QPM apply penlac 8% and ciclopirox 8% solution topically to thick finger and toenails once nightly Cyanocobalamin (B-12) 1,000 Mcg Tab 1000 MCG PO QAM Docusate Sodium (Colace) 100 Mg Cap 100 MG PO BID Duloxetine Hcl (Cymbalta) 60 Mg Cap 60 MG PO QAM, CAP Dutasteride (Dutasteride) 0.5 Mg Cap 0.5 MG PO DAILY, #28 Famotidine (Famotidine) 20 Mg Tab 20 MG PO HS, #28 Fiber Laxative (Fiber Laxative) Ea 1 TAB PO DAILY Fludrocortisone Acetate (Florinef) 0.1 Mg Tab 0.1 MG PO BID, TAB Fluticasone Prop/Salmeterol (Advair Diskus 250/50 60 Dose) 1 Ea Aerp 1 PUFF INH BID Fluticasone Propionate (Fluticasone Propionate) 50 Mcg/Act Spr 2 SPRAYS NA DAILY for 30 Days Gabapentin (Gabapentin) 800 Mg Tab 800 MG PO TID, #84 Guaifenesin Ext Rel (Mucinex Ext Rel) 600 Mg Tabcr 1200 MG PO Q12, TAB Home O2 Therapy (Oxygen) Gas 1 LITER NA PRN, BTL Hydrocortisone (Cortef) 20 Mg Tab 40 MG PO BID, TAB Insulin Aspart 70/30 (Novolog Mix 70/30) Susp 5 UNITS SQ QPM, BTL Insulin Aspart Protamine & Asp (Novolog Mix 70/30) 1 Inj Inj 20 UNITS SQ QAM, #10 Insulin Glargine (Lantus) 100 Unit/Ml Inj 55 UNIT SQ HS, #10 Ipratropium-Albuterol (Combivent Respimat) 1 Aer Aer 1 PUFF INH QID, #4 Levalbuterol (Levalbuterol HCl) 0.63 Mg/3 Ml Nebu 1 VIAL NEB Q4 PRN for Wheezing Lidocaine (Lidocaine) 1 Patch Tdsy 1 PATCH TD QAM for 30 Days to back pain Magnesium Oxide (Mag-Ox) 400 Mg Tab 400 MG PO BID, TAB Methenamine Hippurate (Methenamine Hippurate) 1 Gm Tab 1 GM PO HS Metolazone (Zaroxolyn) 2.5 Mg Tab 2.5 MG PO DAILY PRN for WEIGHT GAIN, TAB 3 LBS IN 24HRS OR 5LBS IN 7 DAYS Multiple Vitamins W/ Minerals (Therems M) 1 Tab Tab 1 TAB PO DAILY Nitroglycerin (Nitrostat) 0.4 Mg Tab 1 TAB SL UD PRN for Chest Pain, 3 Refills Omeprazole (Prilosec) 20 Mg Capcr 20 MG PO DAILY, CAP Oxycodone Hcl (Oxycontin) 15 Mg Tab 15 MG PO Q12, TAB Polyethylene Glycol 3350 (Miralax) 1 Pow Pow 17 GM PO BID, #255 GM Polyethylene Glycol-Propylene (Systane Ultra) 1 Idania Idania 1 DROPS OPB BID, #15 ML 1 Refill Simethicone (Gas-X) 80 Mg Chw 80 MG PO QID PRN for Indigestion Tamsulosin Hcl (Flomax) 0.4 Mg Cap 0.4 MG PO HS, #28 Trolamine Salicylate (Aspercreme) 10 % Lot 1 APPLN TOP BID PRN for ARTHRITIS PAIN Discontinued Medications: Clopidogrel (Plavix) 75 Mg Tab 75 MG PO DAILY Torsemide (Torsemide) 20 Mg Tab 60 MG PO QAM for 30 Days, #90 TAB Warfarin Sodium (Coumadin) 2 Mg Tab 2 MG PO HS, TAB Discharge Exam Review of Systems: Constitutional: No weakness, No fatigue Respiratory: + cough, No sputum Cardiovascular: No chest pain, No orthopnea Abdomen: No pain, No nausea, No vomiting Physical Exam: General Appearance: WD/WN, no apparent distress Eyes: normal inspection, EOMI Respiratory/Chest: no respiratory distress, + wheezing Cardiovascular: regular rate, rhythm, no edema, no gallop, no JVD Abdomen / GI: normal bowel sounds, non tender, soft Skin: normal color, warm/dry, no rash (Tara Hines M.D.) Hospital Course Mr. Augustingt here for BRBPR, hypotension, LQ abdominal pain, nausea. Pt also reports h/o self resolved hematuria. Initial INR 4.5, Vit K and K Centra given in ED. 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 GI Bleed Attempted colonoscopy 04/19, no active bleeding noted, but preparation was not adequate. EGD performed 04/23 shows no abnormalities. Discussed with GI, decision made to not perform repeat colonoscopy, assessing benefits (looking for AVM vs mesenteric ischemia) and risks (perforation, h/o decompensation post procedure, multiple scopes in frail pt). Additionally, per cardio notes from previous admission in 2014, recommendation made to stop plavix , citing ASA as sufficient therapy. With h/o bleeding and little benefit added by continuing, will not restart plavix on discharge. PPI given BID for prophylaxis. Will restart ASA on discharge. Anemia in setting of GI bleed PRBCs 2 units given on admission, 1 unit given 04/20 Script written to follow cbc once within 2-3 days outpt, then 1 week later, then monthly. Acute on chronic respiratory failure Chronically on 2L O2 at home. Acute resp failure evident on evening after colonoscopy. Received unasyn x2, but no other signs of PNA, afebrile, WBC wnl, mental status at baseline since yesterday. CXR 04/22 showed no worsening. Pulse ox improved, titrated to POx>92. Pulmonary nodules noted on CXR. Per radiology, recommend f/u chest CT 4-6 months. Delirium Resolved Likely due to hospital delirium Haldol IM prn, supportive care Chronic diastolic CHF CXR with progressive bibasilar haziness could be pulm edema, restarted torsemide at lower dose of 20mg daily on 04/20, but Forming Operator began trending up so held. Creatinine back to baseline on discharge. Cont Atenolol. CKD stage 3-4 Followed PRP, avoided nephrotoxins, renally dose all meds. Restarting Torsemide at lower dose 20mg bid. Hypokalemia goal to keep >4.0. Supplementation provided, followed closely. Severe COPD, acute on chronic Goal to keep PO2>92. Currently at 99-100, will titrate. Cont combivent, advair and prn xopenex, also on discharge. Adrenal insufficiency continue fludrocortisone and Cortef CAD h/o extensive LAD stenting - no evidence of ACS. Restarted ASA. Plavix stopped as above. Cont statin, atenolol. DVT has completed nearly 3 months of Coumadin therapy post DVT, will not restart in context of GI bleed and subjective hematuria. Discussed with pt and pt's . DM II At home on Lantus 55 units hs, and NovoLog Mix 70/30 20 units in AM and 5 units in PM Titrated Lantus 20 units bid, added carb coverage. BSG 140-180s, improved. BPH with h/o urinary retention requiring chronic indwelling Ball, sees Urology annually, has Ball changed out q1 month, last changeout 04/01/17 Continue dutasteride, methenamine hippurate, and tamsulosin. Continue monthly Ball exchanges at [place]. Chronic neuropathic pain Gabapentin 800 mg tid, OxyContin 15 mg q12 Depression Duloxetine 30 mg Proph- SCDs, PPI DNR Total Time Spent: Greater than 30 minutes This includes examination of the patient, discharge planning, medication reconciliation, and communication with other providers. (Tara Hines M.D.) I agree with resident assessment and plan and have seen and examined pt myself Resting comfortably in bed VSS Labs reviewed Hg improving Admitted with LGIB Endoscopy unremarkable Did require RBC transfusion Asymptomatic Stable for DC (Greg Nieto D.O.) Discharge Instructions Please refer to the electronic Patient Visit Report (Discharge Instructions) for additional information. (Tara Hines M.D.) Additional Copies To Wilver Franco M.D.; [facility] Resident Tracking Resident Involvement: Resident Care Provided Care Provided: Adult Hospital Medicine (Tara Hines M.D.)
== END 2017-04-24 15:20 | DRG 377 ==
LOC: EDBD 07:36 → C.EDB 07:37 → ENRESERV 11:35 → C.2T 12:10
PROVIDERS: ADMIT Internal Medicine; ATTEND Hospitalist
PROC: 0T9B70Z Drainage of Bladder with Drainage Device, Via Natural or Artificial Opening (ICD-10-PCS; 2017-04-16)
PROC: 0DJD8ZZ Inspection of Lower Intestinal Tract, Via Natural or Artificial Opening Endoscopic (ICD-10-PCS; principal; 2017-04-19 09:28)
PROC: 0DJ08ZZ Inspection of Upper Intestinal Tract, Via Natural or Artificial Opening Endoscopic (ICD-10-PCS; 2017-04-23)
DX: K92.2 Gastrointestinal hemorrhage, unspecified (principal); J96.21 Acute and chronic respiratory failure with hypoxia; J69.0 Pneumonitis due to inhalation of food and vomit; G93.41 Metabolic encephalopathy; D62 Acute posthemorrhagic anemia; D68.32 Hemorrhagic disorder due to extrinsic circulating anticoagulants; E27.40 Unspecified adrenocortical insufficiency; I13.0 Hypertensive heart and chronic kidney disease with heart failure and stage 1 through stage 4 chronic kidney disease, or unspecified chronic kidney disease; I50.32 Chronic diastolic (congestive) heart failure; T45.515A Adverse effect of anticoagulants, initial encounter; I95.1 Orthostatic hypotension; E87.6 Hypokalemia; T50.1X5A Adverse effect of loop [high-ceiling] diuretics, initial encounter; I27.81 Cor pulmonale (chronic); E11.22 Type 2 diabetes mellitus with diabetic chronic kidney disease; N18.3 Chronic kidney disease, stage 3 (moderate); I48.0 Paroxysmal atrial fibrillation; J44.9 Chronic obstructive pulmonary disease, unspecified; I25.10 Atherosclerotic heart disease of native coronary artery without angina pectoris; G89.29 Other chronic pain; E78.5 Hyperlipidemia, unspecified; I73.9 Peripheral vascular disease, unspecified; N40.1 Benign prostatic hyperplasia with lower urinary tract symptoms; K21.9 Gastro-esophageal reflux disease without esophagitis; D63.8 Anemia in other chronic diseases classified elsewhere; F32.9 Major depressive disorder, single episode, unspecified; R91.8 Other nonspecific abnormal finding of lung field; Z66 Do not resuscitate; E66.9 Obesity, unspecified; Z68.30 Body mass index [BMI] 30.0-30.9, adult; Z95.5 Presence of coronary angioplasty implant and graft; Z87.01 Personal history of pneumonia (recurrent); Z87.440 Personal history of urinary (tract) infections; Z86.14 Personal history of Methicillin resistant Staphylococcus aureus infection; Z86.73 Personal history of transient ischemic attack (TIA), and cerebral infarction without residual deficits; Z86.718 Personal history of other venous thrombosis and embolism; Z87.891 Personal history of nicotine dependence; Z79.01 Long term (current) use of anticoagulants; Z79.02 Long term (current) use of antithrombotics/antiplatelets; Z79.1 Long term (current) use of non-steroidal anti-inflammatories (NSAID); Z79.4 Long term (current) use of insulin; Z79.51 Long term (current) use of inhaled steroids; Z79.52 Long term (current) use of systemic steroids; Z79.82 Long term (current) use of aspirin; Z79.891 Long term (current) use of opiate analgesic; Z79.899 Other long term (current) drug therapy; Z82.49 Family history of ischemic heart disease and other diseases of the circulatory system

== ENCOUNTER → 2017-04-26 | Outpatient (CLI) | payer OTHER ==
[~2017-04-26] MED LIST changes: +ADVIN25/60 INH; -ADVIN25050 INH; -CLOP1TAB15 PO; -CYAN10005 PO; +CYAN1TAB18 PO; -CYM30 PO; +DULO60CA44 PO; -FLR1 PO; +FLUD0.1T10 PO; -HYDR20TA PO; +HYDR20TA3 PO; -MCRK20 PO; +METO2.5T PO; +OXYC15TA89 PO; -OXYSR15 PO; -WARF3TAB6 PO
[2017-04-26 09:58] LABS: BASO % 0.4 %; BASO ABS # 0.03 K/uL (0-0.2); EOS % 0.9 %; HEMATOCRIT 28.3 % (42-52); IG% 0.3 %; LYMPH % 16.2 %; MEAN CELL VOLUME 89.8 fL (80-100); MEAN CORPUSCULAR HEMOGLOBIN 26.7 pg (25-34); MEAN CORPUSCULAR HGB CONC 29.7 g/dl (32-36); MEAN PLATELET VOLUME 10.8 fL (7.4-10.4); MONO % 11.2 %; PLATELET COUNT 219 K/uL (130-400); RED BLOOD COUNT 3.15 M/uL (4.7-6.1)
[2017-04-26 10:19] LABS: COMPLETE YES; HYPERSEGMENTED POLYS 1+; HYPOCHROMIA PRESENT; POLYCHROMASIA 1+
== END | disposition home or self-care (01) ==
LOC: C.LABVPSUA 09:03
PROVIDERS: ATTEND Internal Medicine Critical Care Medicine
DX: K92.2 Gastrointestinal hemorrhage, unspecified (principal)

== ENCOUNTER 2017-05-29 13:57 | Emergency (ER) | payer OTHER ==
[~2017-05-29] VITALS: Ht 182.9 cm; Wt 105.3 kg
[~2017-05-29 13:57] MED LIST changes: +METH-1305 PO; -METH1TAB5 PO
[2017-05-29 14:10] VITALS: TEMP 36.4
[2017-05-29] MEDS ORDERED: CEFEPIME IV 2,000 MG in DEXTROSE 5% 100ML 100 ML IV STA (14:11)
[2017-05-29] MEDS ORDERED: SODIUM CHLORIDE 0.9% 1000ML 500 ML IV ONE (14:11)
[2017-05-29 14:15] VITALS: O2SAT 99
[2017-05-29] MEDS ORDERED: FLNIN/ NAE (14:16)
[2017-05-29] MEDS ORDERED: LIDO1PAD2 TD (14:16)
[2017-05-29] MEDS ORDERED: TORS20TA2 PO (14:16)
--- NOTE | 2017-05-29 14:30 | DIAGNOSTIC IMAGING REPORT ---
CHEST ONE VIEW PORTABLE CLINICAL HISTORY: Sepsis COMPARISON STUDY: 04/22/2017 FINDINGS: The cardiac and mediastinal contours remain stable. There is underlying pulmonary emphysema. There are mixed linear and nodular opacities in the left superhilar region. These remain stable. There are increased markings at both lung bases, unchanged from prior studies and likely chronic.[ There are no pleural effusions. There is no failure. IMPRESSION: 1. Chronic bibasal interstitial opacities 2. Emphysema 3. Stable nonspecific mixed linear and nodular opacities within the left superhilar region 4. The examination remains essentially unchanged from the prior study dated 04/22/2017 Electronically signed by: Sridhar Chowdary M.D. 05/29/2017 2:29 PM Dictated Date/Time: 05/29/2017 2:26 PM
[2017-05-29 14:37] LABS: URINE APPEARANCE CLEAR (CLEAR); URINE BILIRUBIN NEG (NEG); URINE COLOR YELLOW; URINE NITRITE NEG (NEG); URINE SPECIFIC GRAVITY 1.014 (1.000-1.030); UROBILINOGEN NEG (NEG); ZZURINE CULT IF INDIC CATH YES
[2017-05-29 14:39] LABS: MANUAL MICROSCOPIC REQUIRED? NO; REVIEW REQ? NO
--- NOTE | 2017-05-29 14:40 | EMERGENCY ROOM VISIT NOTE ---
History Report prepared by Hood: Mckay Hsieh Under the Supervision of: Dr. Terry Vallejo M.D. First contact with patient: 14:04 Stated Complaint: ILLNESS History of Present Illness The patient is a 86 year old male who presents to the Emergency Room by EMS with complaints of a persistent illness beginning today. His symptoms include nausea, tremors, lethargy, and confusion. He had a Ball catheter changed today. The patient denies new shortness of breath, cough, or vomiting. He states that he had coffee and soda to drink today. He notes that he fell two nights ago, and believes he may have passed out. EMS found the patient's BSG to be in the 200's. Source of History: patient Onset: Today Position: other (generalized) Quality: other (illness) Timing: other (persistent) Associated Symptoms: + nausea, No cough, No SOB (abnormal), No vomiting Note: His symptoms include tremors, lethargy, and confusion. Review of Systems See HPI for pertinent positives & negatives. A total of 10 systems reviewed and were otherwise negative. Past Medical & Surgical Medical Problems: (1) Acute on chronic respiratory failure with hypoxia and hypercapnia (2) Acute renal failure (3) Anemia (4) Aspiration pneumonia (5) Asthma (6) chronic kidney disease (7) COPD (chronic obstructive pulmonary disease) (8) Coronary artery disease (9) CVA (cerebrovascular accident) (10) Essential hypertension (11) HTN (hypertension) (12) Hx of diabetes mellitus (13) Hypercholesterolemia (14) Hyperparathyroidism (15) Hypotension (16) Influenza A (17) Lower GI bleed (18) Lung nodules (19) SD (myocardial infarction) (20) Peripheral vascular disease (21) Staphylococcus aureus pneumonia (22) TIA (transient ischemic attack) (23) Urinary retention (24) Urosepsis Surgical Problems: (1) H/O heart artery stent Family History FH: heart disease Hypertension Social History Smoking Status: Former Smoker Alcohol Use: occasionally Drug Use: none Marital Status: Housing Status: assisted living Occupation Status: retired Current/Historical Medications Scheduled Acetaminophen (Tylenol), 1,000 MG PO Q12 Aspirin (Aspirin Chewable), 81 MG PO DAILY Atenolol (Tenormin), 12.5 MG PO DAILY Atorvastatin (Atorvastatin Calcium), 20 MG PO HS Bisacodyl (Bisacodyl), 5 MG PO BID Ciclopirox (Ciclodan), 1 APPLN TOP QPM Cyanocobalamin (B-12), 1,000 MCG PO QAM Docusate Sodium (Colace), 100 MG PO BID Duloxetine Hcl (Cymbalta), 60 MG PO QAM Dutasteride (Dutasteride), 0.5 MG PO DAILY Famotidine (Famotidine), 20 MG PO HS Fiber Laxative (Fiber Laxative), 1 TAB PO DAILY Fludrocortisone Acetate (Florinef), 0.1 MG PO BID Fluticasone Prop/Salmeterol (Advair Diskus 250/50 60 Dose), 1 PUFF INH BID Fluticasone Propionate (Fluticasone Propionate), 2 SPRAYS HEVER DAILY Gabapentin (Gabapentin), 800 MG PO TID Guaifenesin Ext Rel (Mucinex Ext Rel), 1,200 MG PO Q12 Home O2 Therapy (Oxygen), 1 LITER NA PRN Hydrocortisone (Cortef), 40 MG PO BID Insulin Aspart 70/30 (Novolog Mix 70/30), 5 UNITS SQ QPM Insulin Aspart Protamine & Asp (Novolog Mix 70/30), 20 UNITS SQ QAM Insulin Glargine (Lantus), 55 UNIT SQ HS Ipratropium-Albuterol (Combivent Respimat), 1 PUFF INH QID Lidocaine (Lidocaine), 1 PATCH TD QAM Magnesium Oxide (Mag-Ox), 400 MG PO BID Methenamine Hippurate (Methenamine Hippurate), 1 GM PO HS Multiple Vitamins W/ Minerals (Therems M), 1 TAB PO DAILY Omeprazole (Prilosec), 20 MG PO DAILY Oxycodone Hcl (Oxycontin), 15 MG PO Q12 Polyethylene Glycol 3350 (Miralax), 17 GM PO BID Polyethylene Glycol-Propylene (Systane Ultra), 1 DROPS OPB BID Potassium Ext Rel (Klor-Con), 40 MEQ PO TID Tamsulosin Hcl (Flomax), 0.4 MG PO HS Torsemide (Demadex), 20 MG PO BID Scheduled PRN Levalbuterol (Levalbuterol HCl), 1 VIAL NEB Q4 PRN for Wheezing Metolazone (Zaroxolyn), 2.5 MG PO DAILY PRN for WEIGHT GAIN Nitroglycerin (Nitrostat), 1 TAB SL UD PRN for Chest Pain Simethicone (Gas-X), 80 MG PO QID PRN for Indigestion Trolamine Salicylate (Aspercreme), 1 APPLN TOP BID PRN for ARTHRITIS PAIN Allergies Coded Allergies: No Known Allergies (Unverified , 05/29/17) Physical Exam Vital Signs Date Time Temp Pulse Resp B/P (MAP) Pulse Ox O2 Delivery O2 Flow Rate FiO2 05/29/17 17:45 71 17 102/69 96 05/29/17 17:20 67 13 99/49 96 Room Air 05/29/17 15:34 70 15 114/57 98 Room Air 05/29/17 14:15 99 Nasal Cannula 2.0 05/29/17 14:10 36.4 64 18 114/57 98 Nasal Cannula 2.0 05/29/17 14:07 64 Physical Exam GENERAL: Patient is in no acute distress. HEENT: No acute trauma, normocephalic atraumatic, mucous membranes dry, no nasal congestion, no scleral icterus. NECK: No stridor, no adenopathy, no meningismus, trachea is midline. LUNGS: Scattered crackles. No wheezing. Breath sounds equal. HEART: Without murmurs gallops or rubs, regular rate and rhythm. ABDOMEN: Soft, nontender, bowel sounds positive, no hernias, no peritonitis. Ball catheter in place draining yellow urine. EXTREMITIES: No cyanosis, full range of motion of all the joints without pain or difficulty, no signs for acute trauma. Mild bilateral pedal edema. No cellulitis. NEUROLOGIC: Seems somnolent but awakes to voice. No focal motor deficits. Answers questions appropriately. SKIN: No rash, no jaundice, no diaphoresis. Medical Decision & Procedures ER Provider Diagnostic Interpretation: Radiology results as stated below per my review and radiologist interpretation: CT OF THE HEAD WITHOUT CONTRAST FINDINGS: No acute intracranial hemorrhage, midline shift or mass effect is present. Ventricular system is stable. There is moderate atrophy. The basilar cisterns are patent. There are no extra-axial collections. There are no findings to suggest acute dural sinus thrombosis or acute territorial infarct. There are no significant calvarial abnormalities. Visualized portions of the sinuses and mastoid air cells are clear. IMPRESSION: No acute intracranial findings. Electronically signed by: Arcenio Mejia M.D. 05/29/2017 3:20 PM CHEST ONE VIEW PORTABLE FINDINGS: The cardiac and mediastinal contours remain stable. There is underlying pulmonary emphysema. There are mixed linear and nodular opacities in the left superhilar region. These remain stable. There are increased markings at both lung bases, unchanged from prior studies and likely chronic.[ There are no pleural effusions. There is no failure. IMPRESSION: 1. Chronic bibasal interstitial opacities 2. Emphysema 3. Stable nonspecific mixed linear and nodular opacities within the left superhilar region 4. The examination remains essentially unchanged from the prior study dated 04/22/2017 Electronically signed by: Sridhar Chowdary M.D. 05/29/2017 2:29 PM Laboratory Results 05/29/17 14:43 Red Blood Count 3.74, Mean Corpuscular Volume 82.6, Mean Corpuscular Hemoglobin 23.0, Mean Corpuscular Hemoglobin Concent 27.8, Mean Platelet Volume 10.2, Neutrophils (%) (Auto) 83.4, Lymphocytes (%) (Auto) 9.3, Monocytes (%) (Auto) 6.4, Eosinophils (%) (Auto) 0.4, Basophils (%) (Auto) 0.1, Neutrophils # (Auto) 6.12, Lymphocytes # (Auto) 0.68, Monocytes # (Auto) 0.47, Eosinophils # (Auto) 0.03, Basophils # (Auto) 0.01 05/29/17 14:43 Test 05/29/17 14:00 05/29/17 14:43 05/29/17 14:48 05/29/17 16:02 Urine Color YELLOW Urine Appearance CLEAR (CLEAR) Urine pH 7.0 (4.5-7.5) Urine Specific [place] 1.014 (1.000-1.030) Urine Protein NEG (NEG) Urine Glucose (UA) NEG (NEG) Urine Ketones NEG (NEG) Urine Occult Blood NEG (NEG) Urine Nitrite NEG (NEG) Urine Bilirubin NEG (NEG) Urine Urobilinogen NEG (NEG) Urine Leukocyte Esterase SMALL (NEG) Urine WBC (Auto) 5-10 /hpf (0-5) Urine RBC (Auto) 0-4 /hpf (0-4) Urine Hyaline Casts (Auto) 1-5 /lpf (0-5) Urine Epithelial Cells (Auto) 10-20 /lpf (0-5) Urine Bacteria (Auto) 2+ (NEG) White Blood Count 7.34 K/uL (4.8-10.8) Red Blood Count 3.74 M/uL (4.7-6.1) Hemoglobin 8.6 g/dL (14.0-18.0) Hematocrit 30.9 % (42-52) Mean Corpuscular Volume 82.6 fL (80-100) Mean Corpuscular Hemoglobin 23.0 pg (25-34) Mean Corpuscular Hemoglobin Concent 27.8 g/dl (32-36) Platelet Count 245 K/uL (130-400) Mean Platelet Volume 10.2 fL (7.4-10.4) Neutrophils (%) (Auto) 83.4 % Lymphocytes (%) (Auto) 9.3 % Monocytes (%) (Auto) 6.4 % Eosinophils (%) (Auto) 0.4 % Basophils (%) (Auto) 0.1 % Neutrophils # (Auto) 6.12 K/uL (1.4-6.5) Lymphocytes # (Auto) 0.68 K/uL (1.2-3.4) Monocytes # (Auto) 0.47 K/uL (0.11-0.59) Eosinophils # (Auto) 0.03 K/uL (0-0.5) Basophils # (Auto) 0.01 K/uL (0-0.2) RDW Standard Deviation 58.3 fL (36.4-46.3) RDW Coefficient of Variation 19.4 % (11.5-14.5) Immature Granulocyte % (Auto) 0.4 % Immature Granulocyte # (Auto) 0.03 K/uL (0.00-0.02) Nucleated RBC Absolute Count (auto) 0.06 K/uL (0-0) Nucleated Red Blood Cells % 0.8 % Giant Platelets 1+ Polychromasia 1+ Hypochromasia PRESENT Anisocytosis PRESENT Prothrombin Time 10.7 SECONDS (9.0-12.0) Prothromb Time International Ratio 1.0 (0.9-1.1) Activated Partial Thromboplast Time 23.6 SECONDS (21.0-31.0) Partial Thromboplastin Ratio 0.9 Anion Gap 8.0 mmol/L (3-11) Est Creatinine Clear Calc Drug Dose 33.9 ml/min Estimated GFR () 34.9 Estimated GFR (Non- 30.1 BUN/Creatinine Ratio 14.1 (10-20) Calcium Level 8.4 mg/dl (8.5-10.1) Magnesium Level 2.7 mg/dl (1.8-2.4) Total Bilirubin 0.4 mg/dl (0.2-1) Aspartate Amino Transf (AST/SGOT) 12 U/L (15-37) Alanine Aminotransferase (ALT/SGPT) 27 U/L (12-78) Alkaline Phosphatase 92 U/L (45-117) Total Protein 7.2 gm/dl (6.4-8.2) Albumin 3.1 gm/dl (3.4-5.0) Globulin 4.1 gm/dl (2.5-4.0) Albumin/Globulin Ratio 0.8 (0.9-2) Thyroid Stimulating Hormone (TSH) 0.649 uIu/ml (0.300-4.500) Free Thyroxine 0.86 ng/dl (0.80-1.60) Bedside Lactic Acid Venous 2.55 mmol/L (0.90-1.70) Lactic Acid Level 2.0 mmol/L (0.4-2.0) Laboratory results reviewed by me. Medications Administered Medications (Trade) Dose Ordered Sig/Cole Route Start Time Stop Time Status Last Admin Dose Admin Sodium Chloride 500 ml @ 999 mls/hr Q31M ONCE IV 05/29/17 14:11 05/29/17 14:41 DC 05/29/17 14:11 999 MLS/HR Cefepime HCl 2000 mg/Syringe 20 ml @ 5 mls/min 1445 IV 05/29/17 14:45 05/29/17 16:00 DC 05/29/17 14:51 5 MLS/MIN Sodium Chloride 500 ml @ 999 mls/hr Q31M STAT IV 05/29/17 16:27 05/29/17 16:57 DC 05/29/17 17:18 999 MLS/HR ECG Indication: other (lethargy) Rate (beats per minute): 66 Rhythm: sinus rhythm Findings: PAC, RBBB, no acute ischemic change, other (baseline artifact) Comparison ECG Date: April 16, 2017 Change: no significant change ED Course 1406: The patient was evaluated in room A9B. A complete history and physical exam was performed. 1411: Ordered Cefepime HCl 2000 mg/Dextrose 20 mL @ 5 mL/hr IV, Sodium Chloride 500 ml @ 999 mls/hr IV. 1627: Ordered Sodium Chloride 500 ml @ 999 mls/hr IV. 1725: Reevaluated the patient. Discussed results and discharge instructions: he verbalized understanding and agreement. The patient is ready for discharge. Medical Decision The patient is a 86 year old male who presents to the ED with complaints of generalized illness. Differential diagnoses considered include sepsis, pneumonia, UTI, dehydration, electrolyte imbalance, anemia, ICH, and CVA. There is no leukocytosis. The patient is anemic but this is baseline looking back at previous testing. There is evidence for renal insufficiency but this appears baseline. No significant electrolyte abnormality requiring correction. No hepatitis. Brain CT shows no acute bleed or mass effect. Chest x-ray shows chronic findings, no acute pneumonia, no CHF. EKG shows a sinus rhythm with PACs, no acute ischemia. Cardiac enzyme testing times one is not consistent with acute cardiac injury. Urinalysis shows contamination more so than infection. Urine culture and blood cultures are pending. Initial lactic acid was somewhat elevated, a repeat after fluid hydration showed significant improvement. There was no coagulopathy. The patient appeared to be any euthyroid state. On exam, there were no focal neurologic deficits to suggest stroke. The patient did seem quite dehydrated. The patient received IV cefepime as empiric antibiotic coverage. He was given IV saline for hydration. The patient feels well and is hungry. He has been awake and alert during his ER stay. He does have friends at the bedside and they believe he is at his baseline. At this point, the cause for the confusion earlier is unclear. I suppose, dehydration is a consideration as a cause for his symptoms earlier today. He was encouraged to stay better hydrated. He will return for fever, worsening symptoms or fever. Medication Reconcilliation Current Medication List: was personally reviewed by me Blood Pressure Screening Patient's blood pressure: Normal blood pressure Blood pressure disposition: Did not require urgent referral Impression Primary Impression: Confusion Additional Impression: Dehydration Scribe Attestation The scribe's documentation has been prepared under my direction and personally reviewed by me in its entirety. I confirm that the note above accurately reflects all work, treatment, procedures, and medical decision making performed by me. Departure Information Dispostion Home / Self-Care Referrals [facility] (PCP) Forms HOME CARE DOCUMENTATION FORM, IMPORTANT VISIT INFORMATION, WORK / SCHOOL INSTRUCTIONS Patient Instructions My [facility] Additional Instructions more liquids during the day, you were dehydrated today lab testing was ok imaging was all ok urine testing was ok urine culture results are pending, we will call with any issues return if worsening see manju myrikc this week for a recheck Stroke History Time Last Known Well This am Stroke t-PA Criteria Reviewed Does NOT meet criteria for t-PA Reason t-PA Not Given Treatment not indicated Problem Qualifiers
[2017-05-29] MEDS ORDERED: CEFEPIME IV 2,000 MG in SYRINGE 7.5 ML IV SCH (14:45)
[2017-05-29 15:11] VITALS: Ht 182.9 cm; Wt 105.3 kg
[2017-05-29 15:12] LABS: PARTIAL THROMBOPLASTIN RATIO 0.9; PROTHROMBIN TIME (PATIENT) 10.7 SECONDS (9.0-12.0)
[2017-05-29 15:16] LABS: BUN/CREATININE RATIO 14.1 (10-20); CALCIUM 8.4 mg/dl (8.5-10.1); CREATININE 1.96 mg/dl (0.60-1.40); MAGNESIUM 2.7 mg/dl (1.8-2.4); POTASSIUM 3.3 mmol/L (3.5-5.1)
--- NOTE | 2017-05-29 15:22 | DIAGNOSTIC IMAGING REPORT ---
CT OF THE HEAD WITHOUT CONTRAST CLINICAL HISTORY: Confusion. Anticoagulation. COMPARISON STUDY: Head CT October 09, 2014 and MRI of the brain March 03, 2017. CT DOSE: 614.27 mGy.cm TECHNIQUE: Helical axial images of the head were obtained without IV contrast. Automated exposure control was utilized for the study. A dose lowering technique was utilized adhering to the principles of ALARA. FINDINGS: No acute intracranial hemorrhage, midline shift or mass effect is present. Ventricular system is stable. There is moderate atrophy. The basilar cisterns are patent. There are no extra-axial collections. There are no findings to suggest acute dural sinus thrombosis or acute territorial infarct. There are no significant calvarial abnormalities. Visualized portions of the sinuses and mastoid air cells are clear. IMPRESSION: No acute intracranial findings. Electronically signed by: Arcenio Mejia M.D. 05/29/2017 3:20 PM Dictated Date/Time: 05/29/2017 3:18 PM
[2017-05-29 15:27] LABS: ALB/GLOB RATIO 0.8 (0.9-2); THYROID STIMULATING HORMONE 0.649 uIu/ml (0.300-4.500)
[2017-05-29] MEDS ORDERED: FLUD0.1T10 PO (15:32)
[2017-05-29] MEDS ORDERED: POTA20TA16 PO (15:37)
[2017-05-29 15:38] LABS: ANISOCYTOSIS PRESENT; BASO % 0.1 %; BASO ABS # 0.01 K/uL (0-0.2); COMPLETE YES; EOS % 0.4 %; GIANT PLATELETS 1+; HEMATOCRIT 30.9 % (42-52); HYPOCHROMIA PRESENT; IG% 0.4 %; LYMPH % 9.3 %; LYMPH ABS # 0.68 K/uL (1.2-3.4); MEAN CELL VOLUME 82.6 fL (80-100); MEAN CORPUSCULAR HGB CONC 27.8 g/dl (32-36); MEAN PLATELET VOLUME 10.2 fL (7.4-10.4); MONO % 6.4 %; NEUT % 83.4 %; PLATELET COUNT 245 K/uL (130-400); POLYCHROMASIA 1+; RED BLOOD COUNT 3.74 M/uL (4.7-6.1); WHITE BLOOD COUNT 7.34 K/uL (4.8-10.8)
[2017-05-29] MEDS ORDERED: SODIUM CHLORIDE 0.9% 500ML 500 ML IV STA (16:27)
[2017-05-29 17:45] VITALS: BP 102/69; PULSE 71; O2SAT 96
--- NOTE | 2017-05-31 11:49 | Pharmacy Progress Note ---
ED Pharmacist Culture FollowUp Date of Service: May 31, 2017. Patient was seen in the ER on 05/29 w/ nausea, tremors, lethargy and confusion. He has a h/o DM and recently had his Ball Cath changed. He was afebrile and no leukocytosis noted. UA was not overwhelmingly suggestive of UTI and may be reflective of contamination (10-20 epis). Ultimately he was diagnosed with dehydration and was discharged back to [place] without abx. Urine cx, cath specimen is growing morganella morganii. This is likely reflective of colonization or contamination. I did speak with GUERDA Danielle at [facility] ). She stated the patient was back to his baseline, was afebrile and no longer had any of the symptoms he had presented with. No abx therapy required.
== END 2017-05-29 17:45 | disposition home or self-care (01) ==
LOC: EDBD 13:57 → C.EDA 14:01
DX: R41.0 Disorientation, unspecified (principal); E86.0 Dehydration; J45.909 Unspecified asthma, uncomplicated; J44.9 Chronic obstructive pulmonary disease, unspecified; E78.00 Pure hypercholesterolemia, unspecified; I12.9 Hypertensive chronic kidney disease with stage 1 through stage 4 chronic kidney disease, or unspecified chronic kidney disease; E11.22 Type 2 diabetes mellitus with diabetic chronic kidney disease; N18.9 Chronic kidney disease, unspecified; I73.9 Peripheral vascular disease, unspecified; D64.9 Anemia, unspecified; I25.10 Atherosclerotic heart disease of native coronary artery without angina pectoris; I25.2 Old myocardial infarction; Z87.891 Personal history of nicotine dependence; Z87.01 Personal history of pneumonia (recurrent); Z86.73 Personal history of transient ischemic attack (TIA), and cerebral infarction without residual deficits; Z98.61 Coronary angioplasty status; Z82.49 Family history of ischemic heart disease and other diseases of the circulatory system; Z79.4 Long term (current) use of insulin; Z79.82 Long term (current) use of aspirin; Z79.899 Other long term (current) drug therapy

== ENCOUNTER → 2017-07-04 | Outpatient (CLI) | payer OTHER ==
[~2017-07-04] MED LIST changes: -DMD20 PO; -FLNIN; +FLNIN/ NAE; +GABA-112 PO; -LDDP5 TD; +LIDO1PAD2 TD; +LVMI SQ; +POTA1TAB97 PO; +POTA20TA16 PO; +TORS1TAB41 PO; +TORS20TA2 PO
[2017-07-04 09:15] LABS: ALT/SGPT 24 U/L (12-78); BLOOD UREA NITROGEN 31 mg/dl (7-18); BUN/CREATININE RATIO 18.2 (10-20); CALCIUM 8.7 mg/dl (8.5-10.1); CARBON DIOXIDE 35 mmol/L (21-32); CHLORIDE 99 mmol/L (98-107); CREATININE 1.69 mg/dl (0.60-1.40); GLUCOSE 167 mg/dl (70-99); POTASSIUM 3.5 mmol/L (3.5-5.1); SODIUM 139 mmol/L (136-145)
[2017-07-04 09:18] LABS: ALB/GLOB RATIO 0.8 (0.9-2); ALKALINE PHOSPHATASE 91 U/L (45-117); AST/SGOT 15 U/L (15-37)
[2017-07-04 09:41] LABS: HEMATOCRIT 33.6 % (42-52); MEAN CELL VOLUME 80.8 fL (80-100); MEAN CORPUSCULAR HEMOGLOBIN 21.6 pg (25-34); MEAN CORPUSCULAR HGB CONC 26.8 g/dl (32-36); MEAN PLATELET VOLUME 10.8 fL (7.4-10.4); PLATELET COUNT 265 K/uL (130-400); RED BLOOD COUNT 4.16 M/uL (4.7-6.1); WHITE BLOOD COUNT 5.74 K/uL (4.8-10.8)
[2017-07-04 09:50] LABS: ANISOCYTOSIS PRESENT; BASO % 0.3 %; BASO ABS # 0.02 K/uL (0-0.2); COMPLETE YES; EOS % 1.6 %; HYPOCHROMIA PRESENT; IG% 0.5 %; LYMPH % 16.2 %; LYMPH ABS # 0.93 K/uL (1.2-3.4); MONO % 9.4 %
== END | disposition home or self-care (01) ==
LOC: C.LABVPSUA 08:48
PROVIDERS: ATTEND Internal Medicine Critical Care Medicine
DX: Z01.818 Encounter for other preprocedural examination (principal); G56.01 Carpal tunnel syndrome, right upper limb

== ENCOUNTER → 2017-07-11 | Outpatient (CLI) | payer OTHER ==
[2017-07-11 09:33] LABS: BLOOD UREA NITROGEN 36 mg/dl (7-18); BUN/CREATININE RATIO 18.8 (10-20); CALCIUM 8.7 mg/dl (8.5-10.1); CARBON DIOXIDE 42 mmol/L (21-32); CHLORIDE 92 mmol/L (98-107); CREATININE 1.93 mg/dl (0.60-1.40); GLUCOSE 197 mg/dl (70-99); POTASSIUM 3.1 mmol/L (3.5-5.1); SODIUM 138 mmol/L (136-145)
== END ==
LOC: C.LABVPSUA 09:09
PROVIDERS: ATTEND Internal Medicine Critical Care Medicine
DX: R60.9 Edema, unspecified (principal); I50.9 Heart failure, unspecified

== ENCOUNTER → 2017-07-18 | Day surgery (SDC) | payer OTHER ==
[2017-06-18 10:40] VITALS: Ht 182.9 cm; Wt 105.0 kg
--- NOTE | 2017-07-01 14:05 | History and Physical ---
History & Physical Date & Time of Service: Jul 01, 2017 at 13:42 Chief Complaint: Left Carpal Tunnel Syndrome Primary Care Physician: Wilver Franco M.D. History of Present Illness Source: patient Patient is an 87-year-old male here today for preoperative history and physical. He is scheduled to have a left open carpal tunnel release by Dr. Meier on July 18, 2017. He was recently evaluated by Dr. Meier for both wrists numbness and tingling. Had previous cortisone injections which were successful with his relief but very short in duration. He has has tried other conservative treatment such as bracing and elevation. He has multiple medical problems and surgery has been delayed because of these. He recently has undergone a colonoscopy which she did fine with and he now would like to proceed with surgery for his carpal tunnels. He does note numbness and tingling and pain as well as cramping in both hands on a daily basis. He has had prior carpal tunnel release surgery on the right and also has a history of neuropathy, history of DVT. Surgical intervention was discussed. He wished to proceed with surgery. His surgery will be done with local anesthetic and IV sedation.He states that his family doctor is aware and is in agreement as long as anesthesia is done with sedation and instead of general. He states he has some tingling in his little finger. Past Medical/Surgical History Medical Problems: (1) Anemia Status: Chronic (2) Asthma Status: Chronic (3) COPD (chronic obstructive pulmonary disease) Status: Chronic (4) Coronary artery disease Status: Chronic (5) CVA (cerebrovascular accident) Status: Resolved (6) Essential hypertension Status: Chronic (7) HTN (hypertension) Status: Chronic (8) Hypercholesterolemia Status: Chronic (9) Hyperparathyroidism Status: Chronic (10) Hypotension Status: Chronic (11) CT (myocardial infarction) Status: Resolved (12) Peripheral vascular disease Status: Chronic (13) TIA (transient ischemic attack) Status: Resolved 14. History of DVT 15. Carpal tunnel syndrome bilateral upper extremities 16. Adrenal insufficiency 17. GERD 18. Chronic kidney disease 19. Diabetes 20. History of sleep apnea with use of 2 L of oxygen Surgical Problems: (1) H/O heart artery stent Status: Resolved 2. Carpal tunnel release right wrist Family History FH: heart disease Hypertension Social History Patient [facility] [place] [facility]. He denies any tobacco use. He states that he stop smoking in 2011. Denies any drug use. He does drink one alcoholic drink per week. He uses a wheelchair to get around for long distances. Smoking Status: Former Smoker (Quit in 2011) Alcohol Use: One drink per week Drug Use: none Marital Status: Housing status: senior care ([place]) Occupational Status: retired Immunizations History of Influenza Vaccine: Yes Influenza Vaccine Date: Jun 08, 2013 History of Tetanus Vaccine?: Unknown History of Pneumococcal: Yes History of Hepatitis B Vaccine: Unknown Multi-Drug Resistant Organisms History of MDRO: Yes Type of MDRO: MRSA Allergies Coded Allergies: No Known Allergies (Unverified , 06/18/17) Home Medications Scheduled Acetaminophen (Tylenol), 1,000 MG PO Q12 Aspirin (Aspirin Chewable), 81 MG PO DAILY Atenolol (Tenormin), 12.5 MG PO DAILY Atorvastatin (Atorvastatin Calcium), 20 MG PO HS Bisacodyl (Bisacodyl), 5 MG PO BID Ciclopirox (Ciclodan), 1 APPLN TOP QPM Cyanocobalamin (B-12), 1,000 MCG PO QAM Docusate Sodium (Colace), 100 MG PO BID Duloxetine Hcl (Cymbalta), 60 MG PO QAM Dutasteride (Dutasteride), 0.5 MG PO DAILY Famotidine (Famotidine), 20 MG PO HS Fiber Laxative (Fiber Laxative), 1 TAB PO DAILY Fludrocortisone Acetate (Florinef), 0.1 MG PO BID Fluticasone Prop/Salmeterol (Advair Diskus 250/50 60 Dose), 1 PUFF INH BID Fluticasone Propionate (Fluticasone Propionate), 2 SPRAYS HEVER DAILY Gabapentin (Gabapentin), 800 MG PO TID Guaifenesin Ext Rel (Mucinex Ext Rel), 1,200 MG PO Q12 Home O2 Therapy (Oxygen), 1 LITER NA PRN Hydrocortisone (Cortef), 40 MG PO BID Insulin Aspart 70/30 (Novolog Mix 70/30), 5 UNITS SQ QPM Insulin Aspart Protamine & Asp (Novolog Mix 70/30), 20 UNITS SQ QAM Insulin Glargine (Lantus), 55 UNIT SQ HS Ipratropium-Albuterol (Combivent Respimat), 1 PUFF INH QID Lidocaine (Lidocaine), 1 PATCH TD QAM Magnesium Oxide (Mag-Ox), 400 MG PO BID Methenamine Hippurate (Methenamine Hippurate), 1 GM PO HS Multiple Vitamins W/ Minerals (Therems M), 1 TAB PO DAILY Omeprazole (Prilosec), 20 MG PO DAILY Oxycodone Hcl (Oxycontin), 15 MG PO Q12 Polyethylene Glycol 3350 (Miralax), 17 GM PO BID Polyethylene Glycol-Propylene (Systane Ultra), 1 DROPS OPB BID Potassium Ext Rel (Klor-Con), 40 MEQ PO TID Tamsulosin Hcl (Flomax), 0.4 MG PO HS Torsemide (Demadex), 20 MG PO BID Scheduled PRN Levalbuterol (Levalbuterol HCl), 1 VIAL NEB Q4 PRN for Wheezing Metolazone (Zaroxolyn), 2.5 MG PO DAILY PRN for WEIGHT GAIN Nitroglycerin (Nitrostat), 1 TAB SL UD PRN for Chest Pain Simethicone (Gas-X), 80 MG PO QID PRN for Indigestion Trolamine Salicylate (Aspercreme), 1 APPLN TOP BID PRN for ARTHRITIS PAIN Review of Systems Constitutional: No fever, No chills, No sweats, No weight loss, No fatigue Eyes: No worsening of vision, No redness ENT: + dental problems (Dentures), No hearing loss, No sore throat, No tinnitus Respiratory: + cough, + dyspnea on exertion, No sputum, No wheezing, No hemoptysis Cardiovascular: No chest pain, No orthopnea, No edema, No palpitations Abdomen: No pain, No nausea, No vomiting, No diarrhea, No constipation Musculoskeletal: + problem reported, No swelling, No calf pain Genitourinary - Male: No hematuria, No dysuria, No urinary frequency, No urinary urgency, No urinary retention Neurologic: + numbness/tingling (Bilateral upper extremities), No memory loss, No paralysis Psychiatric: No depression symptoms, No anxiety Endocrine: No fatigue Hematologic / Lymphatic: No abnormal bleeding/bruising, No clotting problems Integumentary: No rash, No itch Allergic / Immunologic: No food allergies, No frequent infections, No poor healing Physical Exam General Appearance: WD/WN, no apparent distress Head: normocephalic, atraumatic Eyes: normal inspection, PERRL, EOMI, sclerae normal ENT: normal ENT inspection, hearing grossly normal, TMs normal, pharynx normal Neck: supple, no adenopathy, thyroid normal, trachea midline Respiratory/Chest: chest non-tender, lungs clear, no respiratory distress, no accessory muscle use, + decreased breath sounds, + crackles Cardiovascular: regular rate, rhythm, no edema, normal peripheral pulses, + systolic murmur Abdomen/GI: normal bowel sounds, non tender, soft Extremities/Musculoskelatal: normal capillary refill, normal range of motion, + pedal edema, + pertinent finding (Positive to now sign on the left. Phalen's maneuver causes numbness and tingling bilaterally. He has an adduction contracture of the left thumb. The basilar thumb joint does not appear to be significantly tender. Full movement of the fingers and wrist. No atrophy. Median, radial and ulnar motor and sensory functions otherwise are intact.) Neurologic/Psych: no motor/sensory deficits, alert, normal mood/affect, oriented x 3 Skin: normal color, warm/dry, no rash Impression Assessment and Plan Impression: 1. Recurrent right carpal tunnel syndrome, status post release. 2. Left carpal tunnel syndrome, severe Plan: Conservative treatment such as injections, braces, and observation were explained to the patient. Surgical intervention was also discussed. He wished to proceed with surgery as his symptoms have been persistent for many months. Risks and complications were discussed and include but are not limited to infection, bleeding, pain, swelling, weakness, stiffness, incomplete relief of symptoms, recurrence, nerve and blood vessel injury, blood clots, embolisms, heart attack, stroke and . Informed consent was obtained by Dr. Meier. Postoperative course was discussed. The plan is to use local anesthesia was sit IV sedation as an outpatient at the [facility]. He was instructed on the usage of CHG cloths. He requires no laboratory work, EKG, chest x-ray or medical clearance prior to surgery. We will use tramadol for postoperative pain control. The [place] PDMP was checked with no issues identified.Instructions regarding his medications as are provided for the senior care. He knows to be nothing by mouth after midnight. He will call with any further problems, questions, or concerns. All questions were answered today.
[~2017-07-18] VITALS: Ht 182.9 cm; Wt 105.0 kg
[~2017-07-18] MED LIST changes: +CEFAZOLIN 2000MG IV PUSH 10 ML IV SCH; +CEFD1CAP14 PO; +CEFT1INJ57 IV; +CEPH-571 PO; +CYM/30 PO; +DOXY-300 PO; +FRS/40 PO; +GABA600T PO; +HYD10 PO; +HYDR20TA PO; +LDDP5 TOP; -LPT/20 PO; +LPT20 PO; +LSX20 PO; +LSX40 PO; +MOML PO; -NTRGSL/4 SL; +NTRGSL/4 UT; -OXGN; +PRED10TA PO; -SIME80CH PO; +SIME80CH40 PO; +SODIENE PR; +SPIRIVA 18 MCG INH; +SPRIN/30 INH; -TORS20TA2 PO; +XPNINS INH; -[UNRECOGNIZED DRUG - CODE] TOP
== END | disposition home or self-care (01) ==
LOC: EDSTATUS 10:45 → C.PAT 15:13
PROVIDERS: ATTEND Physical Medicine & Rehabilitation Sports Medicine
DX: G56.02 Carpal tunnel syndrome, left upper limb (principal); Z53.9 Procedure and treatment not carried out, unspecified reason

== ENCOUNTER → 2017-07-23 | Outpatient (CLI) | payer OTHER ==
[~2017-07-23] MED LIST changes: -CEFAZOLIN 2000MG IV PUSH 10 ML IV SCH; -CEFD1CAP14 PO; -CEFT1INJ57 IV; -CEPH-571 PO; -CYM/30 PO; -DOXY-300 PO; -FRS/40 PO; -GABA600T PO; -HYD10 PO; -HYDR20TA PO; -LDDP5 TOP; +LPT/20 PO; -LPT20 PO; -LSX40 PO; -METO2.5T PO; -MOML PO; -NTRGSL/4 UT; -PRED10TA PO; -SIME80CH40 PO; -SODIENE PR; -SPIRIVA 18 MCG INH; -SPRIN/30 INH; -TORS1TAB41 PO; -TROL10LO TOP; -XPNINS INH
[2017-07-23 10:21] LABS: BLOOD UREA NITROGEN 20 mg/dl (7-18); CALCIUM 8.3 mg/dl (8.5-10.1); CARBON DIOXIDE 29 mmol/L (21-32); CREATININE 1.97 mg/dl (0.60-1.40); GLUCOSE 127 mg/dl (70-99); POTASSIUM 4.3 mmol/L (3.5-5.1); SODIUM 142 mmol/L (136-145)
== END ==
LOC: C.LABVPSUA 09:23
PROVIDERS: ATTEND Internal Medicine Critical Care Medicine
DX: R79.89 Other specified abnormal findings of blood chemistry (principal)

== ENCOUNTER 2017-08-05 18:24 | Emergency (ER) | payer OTHER ==
[~2017-08-05] VITALS: Ht 182.9 cm; Wt 113.5 kg
[~2017-08-05 18:24] MED LIST changes: -LPT/20 PO; +LPT20 PO
[2017-08-05 18:50] VITALS: Ht 182.9 cm; Wt 113.5 kg
[2017-08-05] MEDS ORDERED: XYLOCAINE 1%/SOD BICARB 20 ML VIAL INFIL ONE (19:00)
--- NOTE | 2017-08-05 19:58 | EMERGENCY ROOM VISIT NOTE ---
ED Visit Note Patient was seen and evaluated at the request of my attending physician, Dr. Crandall, for a right arm laceration. Please see Dr. Crandall's dictation for full history of present illness and emergency Department course outside of this repair. In short, the patient has an irregular 7.5 cm laceration to the right posterior forearm. This does have some element of skin flap component, however it does penetrate deeply along the more medial and proximal aspects. This will require formal repair. Laceration repair. Patient elects to have their laceration repaired. Verbal consent was obtained to perform the procedure. There is an abundance of materials available for the procedure. Patient is not allergic to latex. Using sterile technique the wound was cleaned with Betadine. The area was sterilely draped. 8 ml of 1% buffered lidocaine was used to anesthetize the forearm laceration. Once the patient was anesthetized, the wound was copiously irrigated under pressure with sterile saline. The wound was explored and there were no deep structures injured such as tendons, bone, or significant blood vessels. The laceration was repaired using 11 simple interrupted 4-0 nylon sutures and 6 Steri-Strips with the wound edges being well approximated. Hemostasis was achieved. The area was cleaned with sterile saline and dressed with bacitracin ointment and bandage. Patient tolerated the procedure well without complications. Blood loss was negligible. Problem List Medical Problems: (1) Anemia Status: Chronic (2) Asthma Status: Chronic (3) COPD (chronic obstructive pulmonary disease) Status: Chronic (4) Coronary artery disease Status: Chronic (5) CVA (cerebrovascular accident) Status: Resolved (6) Essential hypertension Status: Chronic (7) HTN (hypertension) Status: Chronic (8) Hypercholesterolemia Status: Chronic (9) Hyperparathyroidism Status: Chronic (10) Hypotension Status: Chronic (11) RI (myocardial infarction) Status: Resolved (12) Peripheral vascular disease Status: Chronic (13) TIA (transient ischemic attack) Status: Resolved Surgical Problems: (1) H/O heart artery stent Status: Resolved Current/Historical Medications Scheduled Acetaminophen (Tylenol), 1,000 MG PO Q12 Aspirin (Aspirin Chewable), 81 MG PO DAILY Atenolol (Tenormin), 12.5 MG PO DAILY Atorvastatin (Lipitor), 20 MG PO HS Bisacodyl (Bisacodyl), 5 MG PO BID Cyanocobalamin (B-12), 1,000 MCG PO QAM Docusate Sodium (Colace), 100 MG PO BID Duloxetine Hcl (Cymbalta), 60 MG PO QAM Dutasteride (Dutasteride), 0.5 MG PO DAILY Famotidine (Famotidine), 20 MG PO HS Fiber Laxative (Fiber Laxative), 1 TAB PO DAILY Fludrocortisone Acetate (Florinef), 0.1 MG PO BID Fluticasone Prop/Salmeterol (Advair Diskus 250/50 60 Dose), 1 PUFF INH BID Fluticasone Propionate (Fluticasone Propionate), 2 SPRAYS HEVER DAILY Furosemide (Furosemide), 20 MG PO QAM Gabapentin (Gabapentin), 800 MG PO TID Gabapentin (Neurontin), 100 MG PO TID Guaifenesin Ext Rel (Mucinex Ext Rel), 1,200 MG PO Q12 Hydrocortisone (Cortef), 40 MG PO BID Insulin Aspart 70/30 (Novolog Mix 70/30), 10 UNITS SQ QPM Insulin Aspart Protamine & Asp (Novolog Mix 70/30), 25 UNITS SQ QAM Insulin Detemir (Levemir), 60 UNITS SQ DAILY Insulin Glargine (Lantus), 55 UNIT SQ HS Ipratropium-Albuterol (Combivent Respimat), 1 PUFF INH QID Lidocaine (Lidocaine), 1 PATCH TD QAM Magnesium Oxide (Mag-Ox), 400 MG PO BID Methenamine Hippurate (Methenamine Hippurate), 1 GM PO HS Multiple Vitamins W/ Minerals (Therems M), 1 TAB PO DAILY Omeprazole (Prilosec), 20 MG PO DAILY Oxycodone Hcl (Oxycontin), 15 MG PO Q12 Polyethylene Glycol 3350 (Miralax), 17 GM PO BID Polyethylene Glycol-Propylene (Systane Ultra), 1 DROPS OPB BID Potassium Chloride (K-Tab), 40 MEQ PO BID Potassium Ext Rel (Klor-Con), 60 MEQ PO QAM Tamsulosin Hcl (Flomax), 0.4 MG PO HS Scheduled PRN Levalbuterol (Levalbuterol HCl), 1 VIAL NEB Q4 PRN for Wheezing Allergies Coded Allergies: No Known Allergies (Unverified , 07/13/17) Vital Signs Date Time Temp Pulse Resp B/P (MAP) Pulse Ox O2 Delivery O2 Flow Rate FiO2 08/05/17 20:54 36.9 60 16 150/79 96 08/05/17 20:17 60 16 150/79 96 Room Air 08/05/17 18:50 36.9 66 20 121/68 97 Room Air Medications Administered Medications (Trade) Dose Ordered Sig/Cole Route Start Time Stop Time Status Last Admin Dose Admin Lidocaine HCl (Buffered Lidocaine 1% Inj) 20 ml NOW ONCE INFIL 08/05/17 19:00 08/05/17 19:01 DC 08/05/17 19:00 20 ML Departure Information Impression Primary Impression: Forearm laceration Dispostion Home / Self-Care Condition GOOD Forms WORK / SCHOOL INSTRUCTIONS, HOME CARE DOCUMENTATION FORM, IMPORTANT VISIT INFORMATION Patient Instructions [facility], ED Laceration Ext Sutr Stap Tape Additional Instructions Please follow up with your primary care doctor within 7-10 days to have sutures removed. Any surrounding redness, purulent discharge, or fever she should return immediately to the ER. Please take Tylenol or Motrin as needed for pain.
--- NOTE | 2017-08-05 20:09 | DIAGNOSTIC IMAGING REPORT ---
R FOREARM 2 VIEWS ROUTINE CLINICAL HISTORY: r forearm pain COMPARISON: None. DISCUSSION: The bones and joint spaces appear intact. There is no evidence of fracture, dislocation or bony disease. There is no evidence for soft tissue swelling. IMPRESSION: Negative study. The above report was generated using voice recognition software. It may contain grammatical, syntax or spelling errors. Electronically signed by: Jaun Kim M.D. 08/05/2017 8:08 PM Dictated Date/Time: 08/05/2017 8:07 PM
[2017-08-05 20:54] VITALS: BP 150/79; PULSE 60; TEMP 36.9; O2SAT 96
--- NOTE | 2017-08-05 23:37 | EMERGENCY ROOM VISIT NOTE ---
History Report prepared by Hood: Hal Ledbetter Under the Supervision of: Madhav NavarroO. First contact with patient: 18:37 Stated Complaint: SKIN TEAR TO ARM History of Present Illness The patient is an 87 year old male who presents to the Emergency Room with complaints of a constant skin laceration in his right hand occurring about an hour ago. The patient states that his hand got caught between the sink and his power chair today, causing the skin on his hand to be ripped off. He notes that blood was oozing from the wound. He notes that he typically takes a baby aspirin and uses 2L of oxygen at home. He reports that he has received a tetanus show within the last 10 years. Pt denies headache, change in vision, fevers, chest pain, shortness of breath, nausea, vomiting, diarrhea, pain with urination, and numbness and tingling in his hands. Source of History: patient Onset: an hour ago Position: hand (right) Quality: other (laceration) Timing: constant Associated Symptoms: No fevers, No headache, No chest pain, No SOB, No nausea, No vomiting, No diarrhea, No urinary symptoms Note: The patient also denies numbness and tingling in his hands. Review of Systems See HPI for pertinent positives & negatives. A total of 10 systems reviewed and were otherwise negative. Past Medical & Surgical Medical Problems: (1) Acute on chronic respiratory failure with hypoxia and hypercapnia (2) Acute renal failure (3) Anemia (4) Aspiration pneumonia (5) Asthma (6) chronic kidney disease (7) COPD (chronic obstructive pulmonary disease) (8) Coronary artery disease (9) CVA (cerebrovascular accident) (10) Essential hypertension (11) HTN (hypertension) (12) Hx of diabetes mellitus (13) Hypercholesterolemia (14) Hyperparathyroidism (15) Hypotension (16) Influenza A (17) Lower GI bleed (18) Lung nodules (19) ND (myocardial infarction) (20) Peripheral vascular disease (21) Staphylococcus aureus pneumonia (22) TIA (transient ischemic attack) (23) Urinary retention (24) Urosepsis Surgical Problems: (1) H/O heart artery stent Family History FH: heart disease Hypertension Social History Smoking Status: Former Smoker Alcohol Use: occasionally Drug Use: none Marital Status: Housing Status: assisted living Occupation Status: retired Current/Historical Medications Scheduled Acetaminophen (Tylenol), 1,000 MG PO Q12 Aspirin (Aspirin Chewable), 81 MG PO DAILY Atenolol (Tenormin), 12.5 MG PO DAILY Atorvastatin (Lipitor), 20 MG PO HS Bisacodyl (Bisacodyl), 5 MG PO BID Cyanocobalamin (B-12), 1,000 MCG PO QAM Docusate Sodium (Colace), 100 MG PO BID Duloxetine Hcl (Cymbalta), 60 MG PO QAM Dutasteride (Dutasteride), 0.5 MG PO DAILY Famotidine (Famotidine), 20 MG PO HS Fiber Laxative (Fiber Laxative), 1 TAB PO DAILY Fludrocortisone Acetate (Florinef), 0.1 MG PO BID Fluticasone Prop/Salmeterol (Advair Diskus 250/50 60 Dose), 1 PUFF INH BID Fluticasone Propionate (Fluticasone Propionate), 2 SPRAYS HEVER DAILY Furosemide (Furosemide), 20 MG PO QAM Gabapentin (Gabapentin), 800 MG PO TID Gabapentin (Neurontin), 100 MG PO TID Guaifenesin Ext Rel (Mucinex Ext Rel), 1,200 MG PO Q12 Hydrocortisone (Cortef), 40 MG PO BID Insulin Aspart 70/30 (Novolog Mix 70/30), 10 UNITS SQ QPM Insulin Aspart Protamine & Asp (Novolog Mix 70/30), 25 UNITS SQ QAM Insulin Detemir (Levemir), 60 UNITS SQ DAILY Insulin Glargine (Lantus), 55 UNIT SQ HS Ipratropium-Albuterol (Combivent Respimat), 1 PUFF INH QID Lidocaine (Lidocaine), 1 PATCH TD QAM Magnesium Oxide (Mag-Ox), 400 MG PO BID Methenamine Hippurate (Methenamine Hippurate), 1 GM PO HS Multiple Vitamins W/ Minerals (Therems M), 1 TAB PO DAILY Omeprazole (Prilosec), 20 MG PO DAILY Oxycodone Hcl (Oxycontin), 15 MG PO Q12 Polyethylene Glycol 3350 (Miralax), 17 GM PO BID Polyethylene Glycol-Propylene (Systane Ultra), 1 DROPS OPB BID Potassium Chloride (K-Tab), 40 MEQ PO BID Potassium Ext Rel (Klor-Con), 60 MEQ PO QAM Tamsulosin Hcl (Flomax), 0.4 MG PO HS Scheduled PRN Levalbuterol (Levalbuterol HCl), 1 VIAL NEB Q4 PRN for Wheezing Allergies Coded Allergies: No Known Allergies (Unverified , 07/13/17) Physical Exam Vital Signs Date Time Temp Pulse Resp B/P (MAP) Pulse Ox O2 Delivery O2 Flow Rate FiO2 08/05/17 20:54 36.9 60 16 150/79 96 08/05/17 20:17 60 16 150/79 96 Room Air 08/05/17 18:50 36.9 66 20 121/68 97 Room Air Physical Exam GENERAL: Sitting up in bed, alert, well appearing, well nourished, no distress, non-toxic EYE EXAM: normal conjunctiva. OROPHARYNX: no exudate, no erythema, lips, buccal mucosa, and tongue normal and mucous membranes are moist NECK: supple, no nuchal rigidity, no adenopathy, non-tender LUNGS: Clear to auscultation. Normal chest wall mechanics HEART: no murmurs, S1 normal and S2 normal ABDOMEN: abdomen soft, non-tender, normo-active bowel sounds, no masses, no rebound or guarding. UPPER EXTREMITIES: Large laceration over right forearm 3 inches in length, down through fat, no muscle involvement, no active bleeding LOWER EXTREMITIES: No pitting edema. NEURO EXAM: Normal sensorium, cranial nerves II-XII grossly intact, normal speech, no gross weakness of arms, no gross weakness of legs. No drift. Finger to nose intact. Gross sensation intact. Medical Decision & Procedures ER Provider Diagnostic Interpretation: Radiology results as stated below per my review and the radiologist's interpretation: R FOREARM 2 VIEWS ROUTINE CLINICAL HISTORY: r forearm pain COMPARISON: None. DISCUSSION: The bones and joint spaces appear intact. There is no evidence of fracture, dislocation or bony disease. There is no evidence for soft tissue swelling. IMPRESSION: Negative study. The above report was generated using voice recognition software. It may contain grammatical, syntax or spelling errors. Electronically signed by: Jaun Kim M.D. 08/05/2017 8:08 PM Medications Administered Medications (Trade) Dose Ordered Sig/Cole Route Start Time Stop Time Status Last Admin Dose Admin Lidocaine HCl (Buffered Lidocaine 1% Inj) 20 ml NOW ONCE INFIL 08/05/17 19:00 08/05/17 19:01 DC 08/05/17 19:00 20 ML ED Course ED COURSE: Vital signs were reviewed and were normal. The patients medical record was reviewed The above diagnostic studies were performed and reviewed. ED treatments and interventions as stated above. 1840: The patient was evaluated in room C2. A complete history and physical examination was performed. 2006: I reevaluated and updated the patient. 2056: Upon reevaluation, the patient is stable. I discussed my findings with the patient and he understands and agrees with the treatment plan. Based on the patients age, coexisting illnesses, exam and lab findings the decision to treat as an outpatient was made. The patient remained stable while under my care. The patient appeared well at the time of discharge. Medical Decision Differential diagnoses include major intracranial, cervical, spinal, thoracic, abdominal, pelvic and neurologic injury. Fracture, contusion, sprain, strain, laceration, abrasions included as well. Patient is an 87-year-old male who had his right forearm caught in between the sink his wheelchair. He has a small laceration. No other complaints. X-rays were unremarkable. He is otherwise intact. Chronically on 2 L nasal cannula. X-ray of the forearm was unremarkable. Repaired by my PA. Please see his note for detailed report of the repair of the laceration. Instructions given on removal of sutures in 10 days. Tetanus recently updated. Discussed with Pt concerning signs and symptoms to watch out for. Pt was instructed to follow up with their PCP and discussed with the patient their option to return to the ED at anytime for persistent or worsening symptoms. The appropriate anticipatory guidance and out-patient management, including indications for return to the emergency department, were explained at length to the patient and understood. Blood Pressure Screening Patient's blood pressure: Elevated blood pressure Blood pressure disposition: Elevated BP felt to be situational Impression Primary Impression: Forearm laceration Scribe Attestation The scribe's documentation has been prepared under my direction and personally reviewed by me in its entirety. I confirm that the note above accurately reflects all work, treatment, procedures, and medical decision making performed by me. Departure Information Dispostion Home / Self-Care Referrals [facility] (PCP) Forms HOME CARE DOCUMENTATION FORM, IMPORTANT VISIT INFORMATION, WORK / SCHOOL INSTRUCTIONS Patient Instructions [facility] Additional Instructions Please follow up with your primary care doctor within 7-10 days to have sutures removed. Any surrounding redness, purulent discharge, or fever she should return immediately to the ER. Please take Tylenol or Motrin as needed for pain. Problem Qualifiers Primary Impression: Forearm laceration Encounter type: initial encounter Laterality: right Qualified Codes: S51.811A - Laceration without foreign body of right forearm, initial encounter
== END 2017-08-05 20:57 | disposition home or self-care (01) ==
LOC: EDBD 18:24 → C.EDC 18:25
DX: S51.811A Laceration without foreign body of right forearm, initial encounter (principal); W23.1XXA Caught, crushed, jammed, or pinched between stationary objects, initial encounter; Y92.89 Other specified places as the place of occurrence of the external cause; J45.909 Unspecified asthma, uncomplicated; J44.9 Chronic obstructive pulmonary disease, unspecified; I12.9 Hypertensive chronic kidney disease with stage 1 through stage 4 chronic kidney disease, or unspecified chronic kidney disease; E11.22 Type 2 diabetes mellitus with diabetic chronic kidney disease; N18.9 Chronic kidney disease, unspecified; I73.9 Peripheral vascular disease, unspecified; I25.10 Atherosclerotic heart disease of native coronary artery without angina pectoris; I25.2 Old myocardial infarction; Z86.73 Personal history of transient ischemic attack (TIA), and cerebral infarction without residual deficits; Z98.61 Coronary angioplasty status

== ENCOUNTER 2017-08-08 08:09 | Inpatient (IN) | payer OTHER ==
[~2017-08-08] VITALS: Ht 188 cm; Wt 99.9 kg
[2017-08-08] VITALS (8 sets, daily range): BP systolic 115–132; BP diastolic 54–78; PULSE 70–90; TEMP 36.6–37.6; O2SAT 94–100; Ht 188 cm; Wt 99.9 kg
[2017-08-08] MEDS ORDERED: CEFT1INJ57 IV (08:42)
[2017-08-08] MEDS ORDERED: FUROSEMIDE 40 MG/4 ML VIAL IV STA (08:53)
--- NOTE | 2017-08-08 09:05 | EMERGENCY ROOM VISIT NOTE ---
History Report prepared by Hood: Luis Fernando Ricci Under the Supervision of: Dr. Luci Villareal M.D. First contact with patient: 08:22 Chief Complaint: RESPIRATORY PROBLEMS Stated Complaint: BREATHING DIFFICULTY History of Present Illness The patient is an 87 year old male who presents to the Emergency Room with complaints of constant shortness of breath since 0630 this morning. The patient additionally has been falling multiple times recently. The patient was seen in the ED three days ago after getting his hand caught in something. He is currently on aspirin, and he is on nasal cannula oxygen at home. The patient has a history of HI and two stents, CHF, recurrent aspirations, and COPD. He is additionally complaining of a headache. Source of History: patient Onset: 0630 Position: other (global) Quality: other (shortness of breath) Timing: constant Associated Symptoms: + headache Review of Systems See HPI for pertinent positives & negatives. A total of 10 systems reviewed and were otherwise negative. Past Medical & Surgical Medical Problems: (1) Acute exacerbation of CHF (congestive heart failure) (2) Acute on chronic respiratory failure with hypoxia and hypercapnia (3) Acute renal failure (4) Anemia (5) Aspiration pneumonia (6) Asthma (7) chronic kidney disease (8) COPD (chronic obstructive pulmonary disease) (9) Coronary artery disease (10) CVA (cerebrovascular accident) (11) Essential hypertension (12) HTN (hypertension) (13) Hx of diabetes mellitus (14) Hypercholesterolemia (15) Hyperparathyroidism (16) Hypotension (17) Influenza A (18) Lower GI bleed (19) Lung nodules (20) HI (myocardial infarction) (21) Peripheral vascular disease (22) Staphylococcus aureus pneumonia (23) TIA (transient ischemic attack) (24) Urinary retention (25) Urosepsis Surgical Problems: (1) H/O heart artery stent Family History FH: heart disease Hypertension Social History Smoking Status: Former Smoker Alcohol Use: occasionally Drug Use: none Marital Status: Housing Status: assisted living Occupation Status: retired Current/Historical Medications Scheduled Acetaminophen (Tylenol), 1,000 MG PO Q12 Aspirin (Aspirin Chewable), 81 MG PO QAM Atenolol (Tenormin), 12.5 MG PO QAM Atorvastatin (Lipitor), 20 MG PO HS Bisacodyl (Bisacodyl), 5 MG PO BID Cyanocobalamin (B-12), 1,000 MCG PO QAM Docusate Sodium (Colace), 100 MG PO BID Duloxetine Hcl (Cymbalta), 60 MG PO QAM Dutasteride (Dutasteride), 0.5 MG PO DAILY Famotidine (Famotidine), 20 MG PO HS Fiber Laxative (Fiber Laxative), 1 TAB PO DAILY Fludrocortisone Acetate (Florinef), 0.1 MG PO BID Fluticasone Prop/Salmeterol (Advair Diskus 250/50 60 Dose), 1 PUFF INH BID Fluticasone Propionate (Fluticasone Propionate), 2 SPRAYS HEVER QAM Furosemide (Furosemide), 20 MG PO QAM Gabapentin (Gabapentin), 800 MG PO TID Gabapentin (Neurontin), 100 MG PO TID Guaifenesin Ext Rel (Mucinex Ext Rel), 1,200 MG PO Q12 Hydrocortisone (Cortef), 40 MG PO BID Insulin Aspart 70/30 (Novolog Mix 70/30), 10 UNITS SQ QPM Insulin Aspart Protamine & Asp (Novolog Mix 70/30), 25 UNITS SQ QAM Insulin Detemir (Levemir), 60 UNITS SQ PM Ipratropium-Albuterol (Combivent Respimat), 1 PUFF INH QID Levalbuterol (Levalbuterol HCl), 1 VIAL NEB BID Lidocaine (Lidocaine), 1 PATCH TD QAM Magnesium Oxide (Mag-Ox), 400 MG PO BID Methenamine Hippurate (Methenamine Hippurate), 1 GM PO HS Multiple Vitamins W/ Minerals (Therems M), 1 TAB PO QAM Nitroglycerin (Nitrostat), 0.4 MG UT PRN Omeprazole (Prilosec), 20 MG PO QAM Oxycodone Hcl (Oxycontin), 15 MG PO Q12 Polyethylene Glycol 3350 (Miralax), 17 GM PO BID Polyethylene Glycol-Propylene (Systane Ultra), 1 DROPS OPB BID Potassium Chloride (K-Tab), 40 MEQ PO NOON/HS Potassium Ext Rel (Klor-Con), 60 MEQ PO QAM Tamsulosin Hcl (Flomax), 0.4 MG PO HS Scheduled PRN Magnesium Hydroxide (Milk Of Magnesia), 30 ML PO UD PRN for PROTOCOL Metolazone (Zaroxolyn), 2.5 MG PO DAILY PRN for WEIGHT GAIN Simethicone (Cvs Gas Relief), 1 TAB PO QID PRN for Indigestion Sodium Phosphate/Biphosphate (Fleet Enema), 1 EA HI DAILY PRN for PROTOCOL Trolamine Salicylate (Aspercreme), 0 TOP BID PRN for ARTHRITIS Allergies Coded Allergies: No Known Allergies (Unverified , 08/08/17) Physical Exam Vital Signs Date Time Temp Pulse Resp B/P (MAP) Pulse Ox O2 Delivery O2 Flow Rate FiO2 08/08/17 11:00 90 23 164/89 98 Oxymask 4.0 08/08/17 10:38 168/90 08/08/17 09:39 91 26 100 08/08/17 09:09 79 24 100 08/08/17 08:59 82 Nasal Cannula 2.0 08/08/17 08:39 79 24 96 08/08/17 08:25 36.6 76 22 178/87 82 Nasal Cannula 2.0 08/08/17 08:23 178/87 08/08/17 08:21 78 Physical Exam Vital signs reviewed. General: Well-appearing male, in no significant distress. HEENT: Left periorbital hematoma. No scleral icterus, PERRLA, neck supple. Cardiovascular: Regular rate and rhythm, no extra sounds. Pulmonary: Coarse breath sounds bilateral with diminished air movement, normal work of breathing. Abdomen: Soft, nontender, nondistended, positive bowel sounds. Musculoskeletal: 2+ pitting edema bilateral lower extremities. Atraumatic Neurologic: Patient awake alert and oriented x 3, full strength in all 4 extremities. Cranial nerves 2 through 12 grossly intact. Skin: Warm, dry, no rash Medical Decision & Procedures ER Provider Diagnostic Interpretation: Radiology results as stated below per my review and radiologist interpretation: CHEST ONE VIEW PORTABLE HISTORY: Short of breath. COMPARISON: Chest 07/18/2017. FINDINGS: No pneumothorax. The heart remains borderline enlarged. Diffuse interstitial thickening persists. Linear densities within the right midlung zone favor subsegmental atelectasis. Trace bilateral pleural effusions. IMPRESSION: No change in the diffuse interstitial thickening and trace bilateral pleural effusions. Electronically signed by: Aubrey Kaplan M.D. 08/08/2017 10:01 AM Dictated Date/Time: 08/08/2017 9:[address] CT DOSE: 1253.67 mGy.cm HISTORY: falls recently, left eye pain, hematoma TECHNIQUE: Multiaxial CT images of the head were performed without the use of intravenous contrast. Automated exposure control was utilized for this study. A dose lowering technique was utilized adhering to the principles of ALARA. Comparison: Head CT 07/18/2017. Findings: The right mastoid air cells are clear. Near-complete opacification of the left mastoid air cells. Mild mucosal thickening within the left posterior ethmoid air cells and a small retention cyst within the right posterior ethmoid air cells. Nasal bone deformities which are likely old. This is similar to the prior study. The calvarium and skull base are intact. There is no mass, hematoma, midline shift, acute infarct. White matter hypodensity is nonspecific but suggestive of microvascular ischemic change. The ventricles and sulci demonstrate mild age-related involutional changes. Impression: No acute intracranial abnormality. Atrophy and microvascular ischemic changes. Left mastoid effusion. Electronically signed by: Aubrey Kaplan M.D. 08/08/2017 10:26 AM Dictated Date/Time: 08/08/2017 10:[address] DOSE: HISTORY: fall, neck pain TECHNIQUE: Multiaxial CT images of the cervical spine were performed and reformatted in the sagittal and coronal plane without the use of contrast. A dose lowering technique was utilized adhering to the principles of ALARA. COMPARISON: None. FINDINGS: No fractures. No subluxation. Prevertebral soft tissues and the C1-C2 interval are intact. No pneumothorax. Straightening of the cervical spine. Moderate to severe degenerative disc disease within the mid to lower cervical spine. There are also moderate to severe facet degenerative changes throughout the cervical spine with fusion of multiple upper facets. Emphysema. Linear scarlike density within the left lung apex. Near complete opacification of the left mastoid air cells. Mild motion artifact. IMPRESSION: 1. No fractures within the cervical spine. 2. Emphysema. 3. Degenerative changes as described above. Electronically signed by: Aubrey Kaplan M.D. 08/08/2017 10:17 AM Dictated Date/Time: 08/08/2017 10:09 AM (CHEST) THORAX WITHOUT CT DOSE: 798.22 mGycm HISTORY: Pneumonia. Aspiration. eval for aspiration PNM TECHNIQUE: Multiaxial CT images of the chest were performed without contrast. A dose lowering technique was utilized adhering to the principles of ALARA. COMPARISON: 07/18/2017 FINDINGS: Patchy basilar parenchymal infiltrative change combine with scattered parenchymal and pleural-based nodularity has remained stable. There is been interval development of small bilateral pleural effusions with the right slightly larger than the left. The heart remains mildly enlarged. There is calcification of the coronary arterial vasculature. IMPRESSION: 1. Interval development of small bilateral pleural effusions. 2. All remaining components of the study are similar compared to the prior exam. Differential is unchanged compared to the prior study although a component of cardiac decompensation may be present. The above report was generated using voice recognition software. It may contain grammatical, syntax or spelling errors. Electronically signed by: Jaun Kim M.D. 08/08/2017 12:58 PM Dictated Date/Time: 08/08/2017 12:54 PM Laboratory Results Test 08/08/17 09:41 08/08/17 10:20 08/08/17 10:32 08/08/17 10:40 Immature Granulocyte % (Auto) 0.8 % White Blood Count 8.48 K/uL (4.8-10.8) Red Blood Count 4.37 M/uL (4.7-6.1) Hemoglobin 9.6 g/dL (14.0-18.0) Hematocrit 35.3 % (42-52) Mean Corpuscular Volume 80.8 fL (80-100) Mean Corpuscular Hemoglobin 22.0 pg (25-34) Mean Corpuscular Hemoglobin Concent 27.2 g/dl (32-36) Platelet Count 177 K/uL (130-400) Neutrophils (%) (Auto) 74.9 % Lymphocytes (%) (Auto) 10.5 % Monocytes (%) (Auto) 12.3 % Eosinophils (%) (Auto) 1.3 % Basophils (%) (Auto) 0.2 % Neutrophils # (Auto) 6.35 K/uL (1.4-6.5) Lymphocytes # (Auto) 0.89 K/uL (1.2-3.4) Monocytes # (Auto) 1.04 K/uL (0.11-0.59) Eosinophils # (Auto) 0.11 K/uL (0-0.5) Basophils # (Auto) 0.02 K/uL (0-0.2) Immature Granulocyte # (Auto) 0.07 K/uL (0.00-0.02) Platelet Estimate NORMAL Hypochromasia PRESENT Total Bilirubin 0.4 mg/dl (0.2-1) Direct Bilirubin < 0.1 mg/dl (0-0.2) Aspartate Amino Transf (AST/SGOT) 21 U/L (15-37) Alanine Aminotransferase (ALT/SGPT) 40 U/L (12-78) Alkaline Phosphatase 113 U/L (45-117) Total Creatine Kinase 180 U/L (39-308) Creatine Kinase MB 5.6 ng/ml (0.5-3.6) Creatine Kinase MB Ratio 3.1 (0-3.0) Troponin I 0.044 ng/ml (0-0.045) Pro-B-Type Natriuretic Peptide 3013 pg/ml (0-1800) Total Protein 7.1 gm/dl (6.4-8.2) Albumin 3.3 gm/dl (3.4-5.0) Thyroid Stimulating Hormone (TSH) 1.250 uIu/ml (0.300-4.500) Influenza Type A Antigen Neg for Influ A (NEG) Influenza Type B Antigen Neg for Influ B (NEG) Bedside Lactic Acid Venous 1.24 mmol/L (0.90-1.70) Urine Color YELLOW Urine Appearance CLEAR (CLEAR) Urine pH 8.5 (4.5-7.5) Urine Specific [place] 1.016 (1.000-1.030) Urine Protein NEG (NEG) Urine Glucose (UA) NEG (NEG) Urine Ketones NEG (NEG) Urine Occult Blood NEG (NEG) Urine Nitrite NEG (NEG) Urine Bilirubin NEG (NEG) Urine Urobilinogen NEG (NEG) Urine Leukocyte Esterase NEG (NEG) Urine WBC (Auto) 1-5 /hpf (0-5) Urine RBC (Auto) 0-4 /hpf (0-4) Urine Hyaline Casts (Auto) 0 /lpf (0-5) Urine Epithelial Cells (Auto) 5-10 /lpf (0-5) Urine Bacteria (Auto) NEG (NEG) Laboratory results per my review. Medications Administered Medications (Trade) Dose Ordered Sig/Cole Route Start Time Stop Time Status Last Admin Dose Admin Furosemide (Lasix Inj) 40 mg NOW STAT IV 08/08/17 08:53 08/08/17 08:55 DC 08/08/17 08:53 40 MG ECG Indication: SOB/dyspnea Rate (beats per minute): 81 Rhythm: sinus rhythm Findings: PVC, T-wave inversion, left axis deviation, other (Low voltage. Previous inferior and anterolateral infracts) Change: Patient's electrocardiogram interpreted by me. ED Course 0832: Past medical records reviewed. The patient was evaluated in room B11. A complete history and physical examination was performed. 0853: Lasix 4mg IV 1030: Dextrose 125ml IV 1042: Upon reevaluation, the patient is resting comfortably. I discussed laboratory and radiographic results with him. He verbalized agreement of the treatment plan. The patient will be evaluated for further management and care. 1046: I reviewed the patient's case with Dr. Renato CHAHAL Hopitalist. He will evaluate the patient for further management. Medical Decision Differential diagnosis: Etiologies such as infections, reactive airway disease, pneumonia, pneumothorax , COPD, CHF, cardiac ischemia, pulmonary embolism, musculoskeletal, gastrointestinal, as well as others were entertained. This patient was evaluated and appeared to be in no significant distress. IV access was obtained and laboratory work was drawn. Patient was placed on the chalker soles and found to be in a sinus rhythm. Chest x-ray was performed and reveals evidence of diffuse interstitial thickening with bilateral pleural effusions. Patient was given 40 mg of Lasix IV. Laboratory work confirms a BNP greater than 35,000. Patient is anemic however this is a chronic issue. He is found to be hypoglycemic and was given one half amp of D50 2. The patient is on oxygen mask currently and saturating well. His case was discussed with the hospitalist service will evaluate for further management. Patient is aware of the plan and agrees. Medication Reconcilliation Current Medication List: was personally reviewed by me Blood Pressure Screening Patient's blood pressure: Elevated blood pressure Monitored by the hospitalist Consults Time Called: 1038 Consulting Physician: Dr. Renato CHAHAL Hospitalist Returned Call: 1046 I reviewed the patient's case with Dr. Renato CHAHAL Hospitalist. He will evaluate the patient for further management. Impression Primary Impression: CHF (congestive heart failure) Additional Impression: Hypoglycemia Scribe Attestation The scribe's documentation has been prepared under my direction and personally reviewed by me in its entirety. I confirm that the note above accurately reflects all work, treatment, procedures, and medical decision making performed by me. Departure Information Dispostion Being Evaluated By Hospitalist Referrals [facility] (PCP) Patient Instructions [facility] Health Problem Qualifiers
[2017-08-08] MEDS ORDERED: METO2.5T PO (09:08)
[2017-08-08] MEDS ORDERED: MOML PO (09:08)
[2017-08-08] MEDS ORDERED: SODIENE PR (09:08)
[2017-08-08] MEDS ORDERED: SIME80CH40 PO (09:28)
[2017-08-08] MEDS ORDERED: NTRGSL/4 UT (09:28)
[2017-08-08] MEDS ORDERED: TROL10LO TOP (09:28)
--- NOTE | 2017-08-08 10:03 | DIAGNOSTIC IMAGING REPORT ---
CHEST ONE VIEW PORTABLE HISTORY: Short of breath. COMPARISON: Chest 07/18/2017. FINDINGS: No pneumothorax. The heart remains borderline enlarged. Diffuse interstitial thickening persists. Linear densities within the right midlung zone favor subsegmental atelectasis. Trace bilateral pleural effusions. IMPRESSION: No change in the diffuse interstitial thickening and trace bilateral pleural effusions. Electronically signed by: Aubrey Kaplan M.D. 08/08/2017 10:01 AM Dictated Date/Time: 08/08/2017 9:59 AM
[2017-08-08 10:08] LABS: MEAN CORPUSCULAR HGB CONC 27.2 g/dl (32-36)
--- NOTE | 2017-08-08 10:18 | DIAGNOSTIC IMAGING REPORT ---
CERVICAL SPINE CT CT DOSE: HISTORY: fall, neck pain TECHNIQUE: Multiaxial CT images of the cervical spine were performed and reformatted in the sagittal and coronal plane without the use of contrast. A dose lowering technique was utilized adhering to the principles of ALARA. COMPARISON: None. FINDINGS: No fractures. No subluxation. Prevertebral soft tissues and the C1-C2 interval are intact. No pneumothorax. Straightening of the cervical spine. Moderate to severe degenerative disc disease within the mid to lower cervical spine. There are also moderate to severe facet degenerative changes throughout the cervical spine with fusion of multiple upper facets. Emphysema. Linear scarlike density within the left lung apex. Near complete opacification of the left mastoid air cells. Mild motion artifact. IMPRESSION: 1. No fractures within the cervical spine. 2. Emphysema. 3. Degenerative changes as described above. Electronically signed by: Aubrey Kaplan M.D. 08/08/2017 10:17 AM Dictated Date/Time: 08/08/2017 10:09 AM
[2017-08-08 10:19] LABS: ALBUMIN 3.3 gm/dl (3.4-5.0); ALT/SGPT 40 U/L (12-78); AST/SGOT 21 U/L (15-37); BLOOD UREA NITROGEN 16 mg/dl (7-18); CALCIUM 8.2 mg/dl (8.5-10.1); CARBON DIOXIDE 31 mmol/L (21-32); CREATININE 1.23 mg/dl (0.60-1.40); GLUCOSE 62 mg/dl (70-99); POTASSIUM 3.9 mmol/L (3.5-5.1); SODIUM 141 mmol/L (136-145)
[2017-08-08 10:24] LABS: ALKALINE PHOSPHATASE 113 U/L (45-117); CKMB 5.6 ng/ml (0.5-3.6); TOTAL PROTEIN 7.1 gm/dl (6.4-8.2)
[2017-08-08 10:26] LABS: HEMATOCRIT 35.3 % (42-52); HEMOGLOBIN 9.6 g/dL (14.0-18.0); MEAN CELL VOLUME 80.8 fL (80-100); PLATELET COUNT 177 K/uL (130-400); WHITE BLOOD COUNT 8.48 K/uL (4.8-10.8)
--- NOTE | 2017-08-08 10:27 | DIAGNOSTIC IMAGING REPORT ---
HEAD CT NONCONTRAST CT DOSE: 1253.67 mGy.cm HISTORY: falls recently, left eye pain, hematoma TECHNIQUE: Multiaxial CT images of the head were performed without the use of intravenous contrast. Automated exposure control was utilized for this study. A dose lowering technique was utilized adhering to the principles of ALARA. Comparison: Head CT 07/18/2017. Findings: The right mastoid air cells are clear. Near-complete opacification of the left mastoid air cells. Mild mucosal thickening within the left posterior ethmoid air cells and a small retention cyst within the right posterior ethmoid air cells. Nasal bone deformities which are likely old. This is similar to the prior study. The calvarium and skull base are intact. There is no mass, hematoma, midline shift, acute infarct. White matter hypodensity is nonspecific but suggestive of microvascular ischemic change. The ventricles and sulci demonstrate mild age-related involutional changes. Impression: No acute intracranial abnormality. Atrophy and microvascular ischemic changes. Left mastoid effusion. Electronically signed by: Aubrey Kaplan M.D. 08/08/2017 10:26 AM Dictated Date/Time: 08/08/2017 10:17 AM
[2017-08-08 10:28] LABS: BASO % 0.2 %; BASO ABS # 0.02 K/uL (0-0.2); EOS % 1.3 %; EOS ABS # 0.11 K/uL (0-0.5); IG# 0.07 K/uL (0.00-0.02); LYMPH % 10.5 %; LYMPH ABS # 0.89 K/uL (1.2-3.4); MONO % 12.3 %; MONO ABS # 1.04 K/uL (0.11-0.59); NEUT % 74.9 %; NEUT ABS # 6.35 K/uL (1.4-6.5)
[2017-08-08] MEDS ORDERED: D5W IV STA (10:30)
[2017-08-08] MEDS ORDERED: POLYOLEFIN IV STA (10:30)
[2017-08-08 11:10] LABS: INFLUENZA B ANTIGEN Neg for Influ B (NEG)
[2017-08-08] MEDS ORDERED: METOLAZONE 2.5 MG TAB PO PRN (11:15)
[2017-08-08] MEDS ORDERED: MAGNESIUM HYDROXIDE SUSP 30 ML UDC PO PRN ×2 (11:15)
[2017-08-08] MEDS ORDERED: ALUMINUM/MAGNESIUM/SIMETH (MAALOX MAX) 30 ML UDC PO PRN (11:15)
[2017-08-08] MEDS ORDERED: MoRPHine SULFATE 2 MG/ML CARP IV PRN (11:15)
[2017-08-08] MEDS ORDERED: LORAZEPAM INJ 50 MG in D5W 50ML IN *POLYOLEFIN BAG* 25 ML IV PRN ×2 (11:15)
[2017-08-08] MEDS ORDERED: ACETAMINOPHEN 325 MG TAB PO PRN (11:15)
[2017-08-08] MEDS ORDERED: SIMETHICONE 80 MG CHEW PO PRN (11:15)
[2017-08-08] MEDS ORDERED: ONDANSETRON INJ 2 MG/ML 2 ML VIAL IV PRN (11:15)
[2017-08-08] MEDS ORDERED: LEVALBUTEROL 1.25MG/0.5ML NEB INH PRN (11:15)
[2017-08-08] MEDS ORDERED: NITROGLYCERIN 0.4 MG SL PER TAB CHARGE UT SCH (11:15)
[2017-08-08] MEDS ORDERED: DEXTROSE 50% 50 ML SYR IV ONE (11:45)
[2017-08-08] MEDS ORDERED: KETOROLAC TROMETHAMINE 30 MG/ML VIAL IV. ONE (11:45)
[2017-08-08] MEDS ORDERED: LORAZEPAM 2 MG/ML 1 ML VIAL IV PRN (11:45)
[2017-08-08] MEDS ORDERED: TRAMADOL HCL 50 MG TAB PO PRN (11:45)
[2017-08-08] MEDS ORDERED: ACETAMINOPHEN 325 MG TAB ONE ×2 (12:08→12:09)
--- NOTE | 2017-08-08 12:10 | History and Physical ---
History & Physical Date & Time of Service: Aug 08, 2017 at 11:36 Chief Complaint: Breathing Difficulty Primary Care Physician: Wilver rFanco M.D. History of Present Illness Source: spouse, hospital records 86 y/o M w/Hx COPD, combined CHF, CAD, CKD 3-4, DM, chronic aspiration, adrenal insufficiency, recurrent PNM, recurrent UTIs, history of DVT. Resides in a nursing facility. Pt has been admitted to the hospital 4 x this yr for pneumonia due to aspiration and most recently due to a GI bleed and then a UTI. [facility] largely due to altered mentation, labored breathing and hypoxia. He was also reported to be falling repeatedly over the past few days. The pt was hypoglycemic on arrival to the ER. He is unable to contribute to the HPI/ROS at the time of admission. He can follow simple commands and otherwise appears to be mumbling and tremulous. His is present at bedside, although she too could not provide a detailed preceding history. 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 II diastolic dysfunction on echo Family History FH: heart disease Hypertension Social History Smoking Status: Former Smoker Drug Use: none Marital Status: Housing status: [facility] Occupational Status: retired Immunizations History of Influenza Vaccine: Yes Influenza Vaccine Date: Jun 08, 2013 History of Tetanus Vaccine?: Unknown History of Pneumococcal: Yes History of Hepatitis B Vaccine: Unknown Multi-Drug Resistant Organisms History of MDRO: Yes Type of MDRO: MRSA Allergies Coded Allergies: No Known Allergies (Unverified , 08/08/17) Home Medications Scheduled Acetaminophen (Tylenol), 1,000 MG PO Q12 Aspirin (Aspirin Chewable), 81 MG PO QAM Atenolol (Tenormin), 12.5 MG PO QAM Atorvastatin (Lipitor), 20 MG PO HS Bisacodyl (Bisacodyl), 5 MG PO BID Cyanocobalamin (B-12), 1,000 MCG PO QAM Docusate Sodium (Colace), 100 MG PO BID Duloxetine Hcl (Cymbalta), 60 MG PO QAM Dutasteride (Dutasteride), 0.5 MG PO DAILY Famotidine (Famotidine), 20 MG PO HS Fiber Laxative (Fiber Laxative), 1 TAB PO DAILY Fludrocortisone Acetate (Florinef), 0.1 MG PO BID Fluticasone Prop/Salmeterol (Advair Diskus 250/50 60 Dose), 1 PUFF INH BID Fluticasone Propionate (Fluticasone Propionate), 2 SPRAYS HEVER QAM Furosemide (Furosemide), 20 MG PO QAM Gabapentin (Gabapentin), 800 MG PO TID Gabapentin (Neurontin), 100 MG PO TID Guaifenesin Ext Rel (Mucinex Ext Rel), 1,200 MG PO Q12 Hydrocortisone (Cortef), 40 MG PO BID Insulin Aspart 70/30 (Novolog Mix 70/30), 10 UNITS SQ QPM Insulin Aspart Protamine & Asp (Novolog Mix 70/30), 25 UNITS SQ QAM Insulin Detemir (Levemir), 60 UNITS SQ PM Ipratropium-Albuterol (Combivent Respimat), 1 PUFF INH QID Levalbuterol (Levalbuterol HCl), 1 VIAL NEB BID Lidocaine (Lidocaine), 1 PATCH TD QAM Magnesium Oxide (Mag-Ox), 400 MG PO BID Methenamine Hippurate (Methenamine Hippurate), 1 GM PO HS Multiple Vitamins W/ Minerals (Therems M), 1 TAB PO QAM Nitroglycerin (Nitrostat), 0.4 MG UT PRN Omeprazole (Prilosec), 20 MG PO QAM Oxycodone Hcl (Oxycontin), 15 MG PO Q12 Polyethylene Glycol 3350 (Miralax), 17 GM PO BID Polyethylene Glycol-Propylene (Systane Ultra), 1 DROPS OPB BID Potassium Chloride (K-Tab), 40 MEQ PO NOON/HS Potassium Ext Rel (Klor-Con), 60 MEQ PO QAM Tamsulosin Hcl (Flomax), 0.4 MG PO HS Scheduled PRN Magnesium Hydroxide (Milk Of Magnesia), 30 ML PO UD PRN for PROTOCOL Metolazone (Zaroxolyn), 2.5 MG PO DAILY PRN for WEIGHT GAIN Simethicone (Cvs Gas Relief), 1 TAB PO QID PRN for Indigestion Sodium Phosphate/Biphosphate (Fleet Enema), 1 EA UT DAILY PRN for PROTOCOL Trolamine Salicylate (Aspercreme), 0 TOP BID PRN for ARTHRITIS Review of Systems Cannot obtain ROS from this pt Physical Exam Vital Signs Date Time Temp Pulse Resp B/P (MAP) Pulse Ox O2 Delivery O2 Flow Rate FiO2 08/08/17 10:38 168/90 08/08/17 09:39 91 26 100 08/08/17 09:09 79 24 100 08/08/17 08:59 82 Nasal Cannula 2.0 08/08/17 08:39 79 24 96 08/08/17 08:25 36.6 76 22 178/87 82 Nasal Cannula 2.0 08/08/17 08:23 178/87 08/08/17 08:21 78 General Appearance: + pertinent finding (Overweight, seemingly confused, eldelry male - shaking and mumbling - obeys commands and attempts to respond to questioning) Head: + pertinent finding (Periorbital bruising i noted on the L) Eyes: EOMI, + pertinent finding (L periorbital bruising) ENT: normal ENT inspection, pharynx normal Neck: supple, no JVD Respiratory/Chest: chest non-tender, + pertinent finding (Poor effort - poor air movement - end exp wheezing) Cardiovascular: regular rate, rhythm, + pertinent finding (faint heart sounds - limited exam) Abdomen/GI: normal bowel sounds, soft, + pertinent finding (The pt has chronic abdominal pain and is tender to palpation of the lower quadrants - I recall from previous admissions that this is always the case) Back: no CVA tenderness Extremities/Musculoskelatal: normal inspection, no calf tenderness, + pedal edema Neurologic/Psych: + pertinent finding (Disoriented - moving all extremities ) Skin: normal color Diagnostics Laboratory Results Results Past 24 Hours Test 08/08/17 09:41 08/08/17 10:20 08/08/17 10:32 08/08/17 10:40 Range/Units White Blood Count 8.48 4.8-10.8 K/uL Red Blood Count 4.37 4.7-6.1 M/uL Hemoglobin 9.6 14.0-18.0 g/dL Hematocrit 35.3 42-52 % Mean Corpuscular Volume 80.8 80-100 fL Mean Corpuscular Hemoglobin 22.0 25-34 pg Mean Corpuscular Hemoglobin Concent 27.2 32-36 g/dl Platelet Count 177 130-400 K/uL Neutrophils (%) (Auto) 74.9 % Lymphocytes (%) (Auto) 10.5 % Monocytes (%) (Auto) 12.3 % Eosinophils (%) (Auto) 1.3 % Basophils (%) (Auto) 0.2 % Neutrophils # (Auto) 6.35 1.4-6.5 K/uL Lymphocytes # (Auto) 0.89 1.2-3.4 K/uL Monocytes # (Auto) 1.04 0.11-0.59 K/uL Eosinophils # (Auto) 0.11 0-0.5 K/uL Basophils # (Auto) 0.02 0-0.2 K/uL Immature Granulocyte % (Auto) 0.8 % Immature Granulocyte # (Auto) 0.07 0.00-0.02 K/uL Platelet Estimate NORMAL Hypochromasia PRESENT Sodium Level 141 136-145 mmol/L Potassium Level 3.9 3.5-5.1 mmol/L Chloride Level 106 98-107 mmol/L Carbon Dioxide Level 31 21-32 mmol/L Anion Gap 4.0 3-11 mmol/L Blood Urea Nitrogen 16 7-18 mg/dl Creatinine 1.23 0.60-1.40 mg/dl Est Creatinine Clear Calc Drug Dose 54.1 ml/min Estimated GFR () 60.8 Estimated GFR (Non- 52.5 BUN/Creatinine Ratio 13.1 10-20 Random Glucose 62 70-99 mg/dl Calcium Level 8.2 8.5-10.1 mg/dl Magnesium Level 2.5 1.8-2.4 mg/dl Total Bilirubin 0.4 0.2-1 mg/dl Direct Bilirubin < 0.1 0-0.2 mg/dl Aspartate Amino Transf (AST/SGOT) 21 15-37 U/L Alanine Aminotransferase (ALT/SGPT) 40 12-78 U/L Alkaline Phosphatase 113 45-117 U/L Total Creatine Kinase 180 39-308 U/L Creatine Kinase MB 5.6 0.5-3.6 ng/ml Creatine Kinase MB Ratio 3.1 0-3.0 Troponin I 0.044 0-0.045 ng/ml Pro-B-Type Natriuretic Peptide 3013 0-1800 pg/ml Total Protein 7.1 6.4-8.2 gm/dl Albumin 3.3 3.4-5.0 gm/dl Influenza Type A Antigen Neg for Influ A NEG Influenza Type B Antigen Neg for Influ B NEG Bedside Lactic Acid Venous 1.24 0.90-1.70 mmol/L Urine Color YELLOW Urine Appearance CLEAR CLEAR Urine pH 8.5 4.5-7.5 Urine Specific [place] 1.016 1.000-1.030 Urine Protein NEG NEG Urine Glucose (UA) NEG NEG Urine Ketones NEG NEG Urine Occult Blood NEG NEG Urine Nitrite NEG NEG Urine Bilirubin NEG NEG Urine Urobilinogen NEG NEG Urine Leukocyte Esterase NEG NEG Urine WBC (Auto) 1-5 0-5 /hpf Urine RBC (Auto) 0-4 0-4 /hpf Urine Hyaline Casts (Auto) 0 0-5 /lpf Urine Epithelial Cells (Auto) 5-10 0-5 /lpf Urine Bacteria (Auto) NEG NEG Test 08/08/17 11:33 Range/Units Microbiology Results 08/08/17 Blood Culture, Received Pending 08/08/17 Blood Culture, Received Pending Diagnostic Radiology CXR: No pneumothorax. The heart remains borderline enlarged. Diffuse interstitial thickening persists. Linear densities within the right midlung zone favor subsegmental atelectasis. Trace bilateral pleural effusions. No acute findings on CT head and CT cervical spine EKG Sinus, L axis, evidence of previous inferior infarct Impression Assessment and Plan 86 y/o M w/Hx COPD, combined CHF CAD, CKD 3-4, DM, chronic aspiration, adrenal insufficiency, recurrent PNM, recurrent UTIs, history of DVT. Resides in a nursing facility. Pt has been admitted to the hospital 4 x this yr for pneumonia due to aspiration and most recently due to a GI bleed and then a UTI. [facility] largely due to altered mentation, labored breathing and hypoxia. He was also reported to be falling repeatedly over the past few days. The pt was hypoglycemic on arrival to the ER. 1) AMS - No clear evidence of acute infection - we will r/o aspiration, check ammonia and TSH. Hypoglycemia was corrected in ER. 2) Hypoxia - history of COPD and combined CHF COPD - due to frequent aspiration, we will obtain a CT chest to R/O acute PNM - he is placed on Duonebs, 02 protocol and IV Methylprednisolone we will provide antibiotics for COPD or broaden to cover aspiration depending on CT results CHF - provided additional Lasix in ER, will apply NTG as BP is high - cannot assess his volume status clinically due to habitus. Will monitor 02 sat and renal function. There is no clear mention of CHF on XR - a CT may aid in diagnosis. 3) DM, hypoglycemia - assigned to telemetry with frequent POCs, modified SS - will hold long-acting insulin x 1 day. 4) Adrenal insuf - cont Fludrocortisone - Hydrocortisone held due to Methylprednisolone use for COPD 5) CKD 3-4 - creat is at baseline 6) Anemia - Hb improved from recent admission 7) Hx DVT - could not tolerate anticoagulation due recent GI bleed - underwent EGD/colonoscopy - exams were limited - no bleeding source identified 8) Frequent falls - trauma to head - CT is neg - PT/OT will be consulted - likely related to generalized weakness and encephalopathy Full code - SCDs Total time for this admit including review of labs, meds, imaging, records, EKG - discussion with pt and ER attending Level of Care Telemetry Resuscitation Status FULL RESUSCITATION VTE Prophylaxis VTE Risk Assessment Done? Y/N: Yes Risk Level: Moderate Given or contraindicated: SCD's
[2017-08-08] MEDS ORDERED: KETOROLAC TROMETHAMINE 30 MG/ML VIAL ONE (12:21)
[2017-08-08] MEDS ORDERED: ACETAMINOPHEN 500 MG TAB PO STA (12:22)
--- NOTE | 2017-08-08 13:00 | DIAGNOSTIC IMAGING REPORT ---
(CHEST) THORAX WITHOUT CT DOSE: 798.22 mGycm HISTORY: Pneumonia. Aspiration. eval for aspiration PNM TECHNIQUE: Multiaxial CT images of the chest were performed without contrast. A dose lowering technique was utilized adhering to the principles of ALARA. COMPARISON: 07/18/2017 FINDINGS: Patchy basilar parenchymal infiltrative change combine with scattered parenchymal and pleural-based nodularity has remained stable. There is been interval development of small bilateral pleural effusions with the right slightly larger than the left. The heart remains mildly enlarged. There is calcification of the coronary arterial vasculature. IMPRESSION: 1. Interval development of small bilateral pleural effusions. 2. All remaining components of the study are similar compared to the prior exam. Differential is unchanged compared to the prior study although a component of cardiac decompensation may be present. The above report was generated using voice recognition software. It may contain grammatical, syntax or spelling errors. Electronically signed by: Jaun Kim M.D. 08/08/2017 12:58 PM Dictated Date/Time: 08/08/2017 12:54 PM
[2017-08-08] MEDS ORDERED: DEXTROSE 50% 50 ML SYR IV STA (13:12)
[2017-08-08] MEDS ORDERED: GLUCOSE 10 TABS/TUBE PO PRN (13:30)
[2017-08-08] MEDS ORDERED: GLUCAGON FOR INJ 1 MG VIAL SQ PRN (13:30)
[2017-08-08] MEDS ORDERED: DEXTROSE 50% 50 ML SYR IV PRN (13:30)
[2017-08-08] MEDS ORDERED: GLUCOSE 40% GEL 15 GM TUBE PO PRN (13:30)
[2017-08-08] MEDS: ALBUT/IPRATROP 3MG/0.5MG NEB 3 ML VIAL INH SCH ×2 (14:18→18:58)
[2017-08-08] MEDS ORDERED: NITROGLYCERIN 2% OINTMENT 30GM TUBE EXT SCH (14:45)
[2017-08-08] MEDS: AVODART~ORDER AWAITING ACTION SCH (15:27)
[2017-08-08] MEDS: SYSTANE~ORDER AWAITING ACTION SCH (15:27)
[2017-08-08] MEDS: METHYLPREDNISOLONE IV 60 MG in SYRINGE 0 ML IV SCH ×2 (16:34→21:16)
[2017-08-08] MEDS: INSULIN ASPART 100 UNITS/ML 3 ML PEN SC SCH (16:35)
[2017-08-08] MEDS: NITROGLYCERIN 2% OINTMENT 30GM TUBE EXT SCH (18:00)
[2017-08-08] MEDS: FLUTICASONE/SALMETEROL 250/50 (ADVAIR) 14 PUFF/1 INHALER INH SCH (20:38)
[2017-08-08] MEDS: BISACODYL 5 MG TABEC PO SCH (20:39)
[2017-08-08] MEDS: DOCUSATE SODIUM 100 MG CAP PO SCH (20:39)
[2017-08-08] MEDS: TAMSULOSIN HCL 0.4 MG CAP PO SCH (20:39)
[2017-08-08] MEDS: FLUDROCORTISONE ACETATE 0.1 MG TAB PO SCH (20:40)
[2017-08-08] MEDS: POTASSIUM CHLORIDE 20 MEQ TABCR PO SCH (20:41)
[2017-08-08] MEDS: ATORVASTATIN 20 MG TAB PO SCH (20:41)
[2017-08-08] MEDS: GUAIFENESIN 600 MG TABCR PO SCH (20:42)
[2017-08-08] MEDS: MAGNESIUM OXIDE 400 MG TAB PO SCH (20:42)
[2017-08-08] MEDS: GABAPENTIN 100 MG CAP PO SCH (20:42)
[2017-08-08] MEDS: GABAPENTIN 800 MG TAB PO SCH (20:43)
[2017-08-08] MEDS: OXYCODONE HCL 15 MG TABCR (OXYCONTIN) PO SCH (20:43)
[2017-08-08] MEDS: FAMOTIDINE 20 MG TAB PO SCH (20:43)
[2017-08-08] MEDS: METHENAMINE HIPPURATE 1 GM TAB PO SCH (20:44)
[2017-08-08] MEDS ORDERED: HYDROCORTISONE 10 MG TAB PO SCH (21:00)
[2017-08-08] MEDS ORDERED: NON-FORMULARY MEDICATION (Insulin Detemir (Levemir) 60 UNITS) SQ SCH (21:00)
[2017-08-09] VITALS (13 sets, daily range): BP systolic 123–164; BP diastolic 71–98; PULSE 68–93; TEMP 36.5–36.7; O2SAT 92–98
[2017-08-09] MEDS: NITROGLYCERIN 2% OINTMENT 30GM TUBE EXT SCH ×4 (01:04→19:50)
[2017-08-09] MEDS: ALBUT/IPRATROP 3MG/0.5MG NEB 3 ML VIAL INH SCH ×4 (02:05→18:58)
[2017-08-09] MEDS: METHYLPREDNISOLONE IV 60 MG in SYRINGE 0 ML IV SCH ×2 (04:10→12:00)
[2017-08-09 05:53] LABS: CALCIUM 8.3 mg/dl (8.5-10.1); CREATININE 1.58 mg/dl (0.60-1.40); HEMATOCRIT 32.4 % (42-52); HEMOGLOBIN 8.8 g/dL (14.0-18.0); MEAN CORPUSCULAR HEMOGLOBIN 21.7 pg (25-34); MEAN CORPUSCULAR HGB CONC 27.2 g/dl (32-36); MEAN PLATELET VOLUME 10.8 fL (7.4-10.4); PLATELET COUNT 174 K/uL (130-400); POTASSIUM 4.9 mmol/L (3.5-5.1); RED CELL DISTRIBUTION WIDTH CV 20.8 % (11.5-14.5); RED CELL DISTRIBUTION WIDTH SD 61.4 fL (36.4-46.3); WHITE BLOOD COUNT 3.97 K/uL (4.8-10.8)
[2017-08-09] MEDS: INSULIN ASPART 100 UNITS/ML 3 ML PEN SC SCH ×5 (06:24→20:26)
[2017-08-09] MEDS: AVODART~ORDER AWAITING ACTION SCH ×2 (07:36)
[2017-08-09] MEDS: SYSTANE~ORDER AWAITING ACTION SCH ×3 (07:37→16:30)
[2017-08-09] MEDS: DULOXETINE HCL 60 MG CAP PO SCH (07:39)
[2017-08-09] MEDS: PANTOprazole SOD 40 MG TAB PO SCH (07:39)
[2017-08-09] MEDS: ASPIRIN 81 MG CHEW PO SCH (07:39)
[2017-08-09] MEDS: GABAPENTIN 800 MG TAB PO SCH ×3 (07:40→20:00)
[2017-08-09] MEDS: MAGNESIUM OXIDE 400 MG TAB PO SCH ×2 (07:41→19:58)
[2017-08-09] MEDS: POTASSIUM CHLORIDE 20 MEQ TABCR PO SCH ×2 (07:41→12:00)
[2017-08-09] MEDS: GABAPENTIN 100 MG CAP PO SCH ×3 (07:41→20:00)
[2017-08-09] MEDS: GUAIFENESIN 600 MG TABCR PO SCH ×2 (07:41→19:59)
[2017-08-09] MEDS: DOCUSATE SODIUM 100 MG CAP PO SCH ×2 (07:42→19:51)
[2017-08-09] MEDS: CYANOCOBALAMIN 500 MCG TAB (VIT B-12) PO SCH (07:42)
[2017-08-09] MEDS: LIDODERM (LIDOCAINE) PATCH 5% TD SCH (07:43)
[2017-08-09] MEDS: FLUDROCORTISONE ACETATE 0.1 MG TAB PO SCH ×2 (07:43→19:57)
[2017-08-09] MEDS: FLUTICASONE/SALMETEROL 250/50 (ADVAIR) 14 PUFF/1 INHALER INH SCH ×2 (07:44→19:50)
[2017-08-09] MEDS: BISACODYL 5 MG TABEC PO SCH ×2 (07:50→20:09)
[2017-08-09] MEDS: OXYCODONE HCL 15 MG TABCR (OXYCONTIN) PO SCH ×2 (07:51→20:09)
[2017-08-09] MEDS ORDERED: FUROSEMIDE 20 MG TAB PO SCH (09:00)
--- NOTE | 2017-08-09 11:04 | Clinical Documentation Query ---
CLINICAL DOCUMENTATION QUERY 87 year old male with hx of combined systolic and diastolic CHF who presents to the Emergency Room with complaints of constant shortness of breath 2/2 CHF. The medical record documentation is now expected to include definitive and explicit description of the patient's heart failure; vague terms such as "heart failure," ventricular dysfunction," and "CHF" may not fully capture the physician's intended level of severity. Query #1/4 In your clinical opinion is this patient being managed for: (x ) Acute on chronic systolic and diastolic CHF treated with IV Lasix. ( ) Not Agree ( ) Other explanation of clinical findings (Please Explain) ( ) Unable to determine (Please Define) ( ) Need to Discuss The medical record reflects the following clinical findings, treatment, and risk factors. Clinical Indicators: Per H&P combined CHF. Chest CT demonstrated small pleural effusions with question of cardiac decompensation. Coarse breath sounds bilateral with diminished air movement. Treatment: Nitro, Lasix, telemetry, I/O's, daily weights, Risk Factors: Age, hx of CHF with EF of 45% and grade II diastolic dysfunction, HTN, CKD Query #2/4 In your clinical opinion is this patient being managed for: (x ) Acute and chronic hypoxic respiratory failure in setting of CHF and COPD. ( ) Not Agree ( ) Other explanation of clinical findings (Please Explain) ( ) Unable to determine (Please Define) ( ) Need to Discuss The medical record reflects the following clinical findings, treatment, and risk factors. Clinical Indicators: Per H&P labored breathing, hypoxia, and AMS Treatment: O2 via mask at 5L, Nitro, Lasix, telemetry,, IV solumedrol Risk Factors: Query #3/4 In your clinical opinion is this patient being managed for: ( x ) Metabolic encephalopathy in setting of CHF and COPD exacerbation ( ) Not Agree ( ) Other explanation of clinical findings (Please Explain) ( ) Unable to determine (Please Define) ( ) Need to Discuss The medical record reflects the following clinical findings, treatment, and risk factors. Clinical Indicators: AMS Treatment: Head CT, O2, Lasix, IV solumedrol, Nebs Risk Factors: Age, hypoxia, exacerbated chronic conditions. Query #4/4 In your clinical opinion is this patient being managed for: (x ) COPD exacerbation evidenced by labored breathing and course breath sounds treated with IV solumedrol and Nebs ( ) Not Agree ( ) Other explanation of clinical findings (Please Explain) ( ) Unable to determine (Please Define) ( ) Need to Discuss The medical record reflects the following clinical findings, treatment, and risk factors. Clinical Indicators: As above Treatment: O2, IV Solumedrol, Nebulizer Rx, Risk Factors: Age, COPD, CHF Please clarify and document your clinical opinion in the progress notes and discharge summary. Terms such as "probable", "suspected", "likely", "questionable", "possible", or "still to be ruled out" are acceptable. IF IN AGREEMENT, YOU MUST DOCUMENT ABOVE DIAGNOSTIC STATEMENT IN DAILY PROGRESS NOTES AND DISCHARGE SUMMARY. This document is not part of the patient's record. Thank You, Leonardo Salazar, GUERDA [phone]
--- NOTE | 2017-08-09 11:21 | Medical Student: [facility] ---
Med Student Progress Note Date of Service Aug 09, 2017. Subjective Pt evaluation today including: conversation w/ patient, physical exam Pain: None PO Intake: Adequate Voiding: no voiding problems Mr. Enciso is a 87-year-old man with a history of COPD, CHF, CAD, DM, recurrent pneumonia and UTI, and hx of DVT who presented to [facility] with altered mental status. Caretakers noted that pt had been falling more lately. ED course consisted of correcting glucose level of 62, negative head CT for hematoma, and CXR / chest CT showing bilateral pleural effusions without evidence of pneumonia or PE. At that time, pt offered no history. Today pt says he's "not too bad" but is still "weak." His main complaint today is shortness of breath and dizziness when moving from lying to sitting. He says he has some mild headache and neck ache as well. He denies fevers, chills, cough, chest pain, nausea, diarrhea, constipation. Denies any recent cold symptoms or wheezing. He says this feels different from when he has pneumonia. Review of Systems Notes: see hpi Objective Vital Signs Date Time Temp Pulse Resp B/P (MAP) Pulse Ox O2 Delivery O2 Flow Rate FiO2 08/09/17 08:02 36.6 68 28 164/77 (106) 92 Nasal Cannula 2.0 08/09/17 07:12 71 20 97 Nasal Cannula 2.0 08/09/17 04:00 97 Nasal Cannula 2.0 08/09/17 03:31 36.6 80 20 123/71 (88) 97 Nasal Cannula 2.0 08/09/17 02:05 71 20 98 Nasal Cannula 2.0 08/09/17 00:01 95 Nasal Cannula 2.0 08/08/17 23:32 36.6 70 18 115/60 (78) 95 Nasal Cannula 2.0 08/08/17 20:00 95 Nasal Cannula 2.0 08/08/17 19:11 37.3 81 22 128/65 (86) 100 Nasal Cannula 2.0 08/08/17 18:58 81 18 97 Nasal Cannula 2.0 08/08/17 16:23 37.6 90 20 115/54 (74) 96 Nasal Cannula 2.0 08/08/17 16:00 94 Nasal Cannula 4.0 08/08/17 14:18 89 14 97 Nasal Cannula 4.0 08/08/17 14:15 37.1 87 20 132/78 94 Nasal Cannula 4.0 08/08/17 13:42 102 20 121/81 96 Nasal Cannula 4.0 08/08/17 13:04 96 20 126/73 96 Nasal Cannula 4.0 08/08/17 12:30 97 21 152/110 97 Nasal Cannula 4.0 08/08/17 12:00 90 17 93/56 96 Nasal Cannula 4.0 08/08/17 11:30 94 24 153/95 98 Nasal Cannula 4.0 08/08/17 11:00 90 23 164/89 98 Oxymask 4.0 Physical Exam General Appearance: no apparent distress Respiratory/Chest: no respiratory distress, + crackles (fine at right base), + pertinent finding (no wheezing, breathing through pursed lips at times) Cardiovascular: regular rate, rhythm, no gallop, no murmur Abdomen: normal bowel sounds, + tenderness (mild diffuse tenderness) Extremities: no calf tenderness, + pedal edema (1+ over feet, none over tibia, dorsalis pedis pulse present, no calf swelling or redness) 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: alert, normal mood/affect, oriented x 3 Laboratory Results Last 24 Hours Test 08/08/17 13:10 08/08/17 13:27 08/08/17 13:28 08/08/17 13:46 Bedside Glucose 53 mg/dl 94 mg/dl 75 mg/dl Ammonia 15.0 umol/L Test 08/08/17 16:23 08/08/17 22:54 08/09/17 04:54 08/09/17 06:21 Bedside Glucose 90 mg/dl 179 mg/dl 256 mg/dl White Blood Count 3.97 K/uL Red Blood Count 4.05 M/uL Hemoglobin 8.8 g/dL Hematocrit 32.4 % Mean Corpuscular Volume 80.0 fL Mean Corpuscular Hemoglobin 21.7 pg Mean Corpuscular Hemoglobin Concent 27.2 g/dl RDW Standard Deviation 61.4 fL RDW Coefficient of Variation 20.8 % Platelet Count 174 K/uL Mean Platelet Volume 10.8 fL Sodium Level 140 mmol/L Potassium Level 4.9 mmol/L Chloride Level 105 mmol/L Carbon Dioxide Level 30 mmol/L Anion Gap 5.0 mmol/L Blood Urea Nitrogen 25 mg/dl Creatinine 1.58 mg/dl Est Creatinine Clear Calc Drug Dose 42.5 ml/min Estimated GFR () 44.9 Estimated GFR (Non- 38.8 BUN/Creatinine Ratio 15.6 Random Glucose 251 mg/dl Calcium Level 8.3 mg/dl Magnesium Level 2.9 mg/dl Assessment and Plan Assessment and Plan: Mr. Enciso is a 87-year-old man with a history of COPD, CHF, CAD, DM, recurrent pneumonia and UTI, and hx of DVT who presented to [facility] with altered mental status. Today patient is oriented and offers more history which is significant for shortness of breath, dizziness, generalized weakness without CP, cough, fevers, chills, or swelling of his legs. SHORTNESS OF BREATH AND AMS Overall history is nonspecific, so many etiologies are possible. - + history of DVT and is not anticoagulated with history of GI bleeding. There is no calf pain, swelling, or tenderness. Denies chest pain. CT negative for pulmonary embolus making PE unlikely. - + history of DM. Glucose of 62 unlikely to cause this much distress. Pt still having symptoms after glucose corrected. - + history of "recurrent pneumonia." Patient is afebrile and denies chills and cough. Says this episode feels different from usual pneumonia. - + history of CHF. Lungs are clear with the exception of fine crackles at the right base. Very mild pedal swelling. Patient is not SOB while lying flat in bed. Echo earlier this month showed EF of 45-50%. This all combined, he appears compensated. - + history of CAD, however no ST changes, lack of CP, and non-elevated troponins make ACS unlikely. - + history of COPD. Says that nebulizer treatments "help a lot." However pt denies cough or cold symptoms. No wheezing or much rales on exam. Methylprednisolone given. Will d/c. - + history of GI bleeding, dizziness, and shortness of breath support symptomatic anemia. EGD in April did not show signs of disease. Colonoscopy at that time showed "coffee ground" appearance and diverticuli. Abdomen is mildly tender, but no masses were appreciated. Cardiopulmonary causes of his symptoms are unlikely at this point with mostly benign exam and negative ROS. Most likely cause is anemia. With history of GI bleeding, we will work this up. - Will order stool occult blood testing. If this is positive, will consult GI for potential reevaluation for GI bleeding, perhaps capsule endoscopy? - Will order iron level, ferritin, TIBC. COPD Continue nebulizer as pt feels he is less SOB after use. Continue O2 via NC. CHF Continue home regimen as pt appears compensated (as above). DIABETES MELLITUS Hold long acting insulin Continue sliding scale insulin. ADRENAL INSUFFICIENCY Continue fludricortisone, hydrocortisone held when methylprednisolone started. Can resume hydrocortisone with methylprednisolone d/c. CKD Creatinine stable. No issues voiding. DVT PPX No anticoagulation in setting of history of GI bleeding and potential bleeding currently. SCDs, encourage ambulation as tolerated.
[2017-08-09] MEDS ORDERED: NURSING VERBAL MED ORDER ONE (16:45)
--- NOTE | 2017-08-09 19:20 | Progress Note ---
Subjective Date of Service: Aug 09, 2017. Subjective Pt evaluation today including: conversation w/ patient, conversation w/ family (), physical exam, lab review, review of studies, review of inpatient medication list Pain: no pain PO Intake: adequate Voiding: gomez catheter in place patient breathing much better today, diuresed well no cough, no wheezing eating well, moved bowels, chronic gomez in place reviewed labs, Cr up slightly at 1.58 Problem List Medical Problems: (1) Acute on chronic renal failure Status: Acute (2) Altered mental status Status: Acute (3) CHF (congestive heart failure) Status: Acute (4) Coagulopathy Status: Acute (5) Confusion Status: Acute (6) Confusion Status: Acute (7) Fever Status: Acute (8) Fever Status: Acute (9) Forearm laceration Status: Acute (10) GI bleed Status: Acute (11) Hypoglycemia Status: Acute (12) Hypoglycemia Status: Acute (13) Hypoxia Status: Acute (14) Hypoxia Status: Acute (15) Influenza A Status: Acute (16) Lactic acidosis Status: Acute (17) Malfunction of Gomez catheter Status: Acute (18) Reactive airway disease Status: Acute (19) Respiratory distress Status: Acute (20) UTI (urinary tract infection) Status: Acute Review of Systems Constitutional: + weakness, + fatigue Respiratory: + shortness of breath All Other Systems: Reviewed and Negative Medications Current Inpatient Medications Medications (Trade) Dose Ordered Sig/Cole Route Start Time Stop Time Status Last Admin Dose Admin Acetaminophen (Tylenol Tab) 650 mg Q4H PRN PO 08/08/17 11:15 09/07/17 11:14 Al Hydrox/Mg Hydrox/Simethicone (Maalox Max Susp) 15 ml Q4H PRN PO 08/08/17 11:15 09/07/17 11:14 Magnesium Hydroxide (Milk Of Magnesia Susp) 30 ml Q12H PRN PO 08/08/17 11:15 09/07/17 11:14 Ondansetron HCl (Zofran Inj) 4 mg Q6H PRN IV 08/08/17 11:15 09/07/17 11:14 Nitroglycerin (Nitroglycerin 2% Oint) 1 inch Q6 EXT 08/08/17 18:00 09/07/17 17:59 08/09/17 13:48 1 INCH Morphine Sulfate (MoRPHine SULFATE INJ) 2 mg Q30M PRN IV 08/08/17 11:15 08/22/17 11:14 Polyethylene (Miralax Powder Packet) 17 gm DAILY PRN PO 08/08/17 11:15 09/07/17 11:14 Aspirin (Aspirin Chew) 81 mg QAM PO 08/09/17 09:00 09/08/17 08:59 08/09/17 07:39 81 MG Atenolol (Tenormin Tab) 12.5 mg QAM PO 08/09/17 09:00 09/08/17 08:59 08/09/17 07:40 12.5 MG Atorvastatin Calcium (Lipitor Tab) 20 mg HS PO 08/08/17 21:00 09/07/17 20:59 08/08/17 20:41 20 MG Bisacodyl (Dulcolax Tab) 5 mg BID PO 08/08/17 21:00 09/07/17 20:59 08/09/17 07:50 5 MG Docusate Sodium (coLACE CAP) 100 mg BID PO 08/08/17 21:00 09/07/17 20:59 08/09/17 07:42 100 MG Duloxetine HCl (Cymbalta Cap) 60 mg QAM PO 08/09/17 09:00 09/08/17 08:59 08/09/17 07:39 60 MG Famotidine (Pepcid Tab) 20 mg HS PO 08/08/17 21:00 09/07/17 20:59 08/08/17 20:43 20 MG Fludrocortisone Acetate (Florinef Tab) 0.1 mg BID PO 08/08/17 21:00 09/07/17 20:59 08/09/17 07:43 0.1 MG Salmeterol Xinafoate/ Fluticasone (Advair Diskus 250/50 Inh) 1 puff BID INH 08/08/17 21:00 09/07/17 20:59 08/09/17 07:44 1 PUFF Furosemide (Lasix Tab) 20 mg QAM PO 08/09/17 09:00 09/08/17 08:59 08/09/17 07:39 20 MG Gabapentin (Neurontin Tab) 800 mg TID PO 08/08/17 21:00 09/07/17 20:59 08/09/17 14:15 800 MG Gabapentin (Neurontin Cap) 100 mg TID PO 08/08/17 21:00 09/07/17 20:59 08/09/17 14:15 100 MG Guaifenesin (Mucinex Contr Rel Tab) 1,200 mg Q12 PO 08/08/17 21:00 09/07/17 20:59 08/09/17 07:41 1,200 MG Lidocaine (Lidoderm Patch 5%) 1 patch QAM TD 08/09/17 09:00 09/08/17 08:59 08/09/17 07:43 1 PATCH Magnesium Oxide (Mag-Ox Tab) 400 mg BID PO 08/08/17 21:00 09/07/17 20:59 08/09/17 07:41 400 MG Methenamine Hippurate (Urex Tab) 1 gm HS PO 08/08/17 21:00 08/13/17 20:59 08/08/17 20:44 1 GM Metolazone (Zaroxolyn Tab) 2.5 mg DAILY PRN PO 08/08/17 11:15 09/07/17 11:14 Nitroglycerin (Nitrostat Tab) 0.4 mg PRN UT 08/08/17 11:15 09/07/17 11:14 Oxycodone HCl (Oxycontin Tab) 15 mg Q12 PO 08/08/17 21:00 08/22/17 20:59 08/09/17 07:51 15 MG Potassium Chloride (Klor-Con Tab) 60 meq QAM PO 08/09/17 09:00 09/08/17 08:59 08/09/17 07:41 60 MEQ Simethicone (Mylicon Chew Tab) 80 mg QID PRN PO 08/08/17 11:15 09/07/17 11:14 Tamsulosin HCl (Flomax Cap) 0.4 mg HS PO 08/08/17 21:00 09/07/17 20:59 08/08/17 20:39 0.4 MG Cyanocobalamin (Vitamin B-12 Tab) 1,000 mcg QAM PO 08/09/17 09:00 09/08/17 08:59 08/09/17 07:42 1,000 MCG Pantoprazole Sodium (Protonix Tab) 40 mg QAM PO 08/09/17 09:00 09/08/17 08:59 08/09/17 07:39 40 MG Miscellaneous Information (Order Awaiting Action) 1 ea QS N/A 08/08/17 16:00 09/07/17 15:59 Potassium Chloride (Klor-Con Tab) 40 meq BID@1200,2100 PO 08/08/17 21:00 09/07/17 20:59 Future Hold 08/09/17 12:00 40 MEQ Miscellaneous (Remove Lidoderm Patch) 1 ea DAILY@21 N/A 08/08/17 21:00 09/07/17 20:59 Albuterol/ Ipratropium (Duoneb) 3 ml Q6R INH 08/08/17 15:00 09/07/17 14:59 08/09/17 18:58 3 ML Levalbuterol (Xopenex 1.25MG/ 0.5ML Neb) 1.25 mg Q4H PRN INH 08/08/17 11:15 09/07/17 11:14 Tramadol HCl (Ultram Tab) 50 mg Q4H PRN PO 08/08/17 11:45 09/07/17 11:44 Lorazepam (Ativan Inj) 0.5 mg ONE PRN IV 08/08/17 11:45 09/07/17 11:44 Glucose (Glucose 40% Gel) 15-30 GRAMS 15 GRAMS... UD PRN PO 08/08/17 13:30 09/07/17 13:29 Glucose (Glucose Chew Tab) 4-8 Tablets 4 Tabl... UD PRN PO 08/08/17 13:30 09/07/17 13:29 Dextrose (Dextrose 50% 50ML Syringe) 25-50ML OF 50% DW IV FOR... UD PRN IV 08/08/17 13:30 09/07/17 13:29 Glucagon (Glucagon Inj) 1 mg UD PRN SQ 08/08/17 13:30 09/07/17 13:29 Dutasteride (Avodart) 0.5 mg DAILY PO 08/10/17 09:00 09/09/17 08:59 Hydrocortisone (Cortef Tab) 40 mg BID PO 08/09/17 21:00 09/08/17 20:59 Insulin Aspart (novoLOG ASPART) start only after intial ... ACHS SC 08/09/17 16:45 09/08/17 16:44 08/09/17 17:37 2 UNITS Objective Vital Signs Date Time Temp Pulse Resp B/P (MAP) Pulse Ox O2 Delivery O2 Flow Rate FiO2 08/09/17 18:58 83 20 94 Nasal Cannula 2.0 08/09/17 18:51 36.7 93 20 153/98 (116) 95 Nasal Cannula 2.0 08/09/17 16:14 36.6 70 20 134/85 (101) 95 Nasal Cannula 2.0 08/09/17 16:00 Room Air 08/09/17 14:44 71 20 95 Nasal Cannula 2.0 08/09/17 12:00 Room Air 08/09/17 11:58 36.5 70 24 136/83 (100) 96 Room Air 08/09/17 08:02 36.6 68 28 164/77 (106) 92 Nasal Cannula 2.0 08/09/17 07:30 Room Air 08/09/17 07:12 71 20 97 Nasal Cannula 2.0 08/09/17 04:00 97 Nasal Cannula 2.0 08/09/17 03:31 36.6 80 20 123/71 (88) 97 Nasal Cannula 2.0 08/09/17 02:05 71 20 98 Nasal Cannula 2.0 08/09/17 00:01 95 Nasal Cannula 2.0 08/08/17 23:32 36.6 70 18 115/60 (78) 95 Nasal Cannula 2.0 08/08/17 20:00 95 Nasal Cannula 2.0 Physical Exam General Appearance: no apparent distress, + obese Eyes: normal inspection, EOMI, sclerae normal ENT: normal ENT inspection, hearing grossly normal, pharynx normal Neck: supple, no adenopathy, no JVD, trachea midline Respiratory/Chest: chest non-tender, lungs clear, normal breath sounds, no respiratory distress, no accessory muscle use Cardiovascular: regular rate, rhythm, no edema, no gallop, no JVD, no murmur Abdomen: normal bowel sounds, non tender, soft, no organomegaly Extremities: normal range of motion, non-tender, normal inspection, no pedal edema, no calf tenderness 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: tongue trimmer II-XII nml as tested, alert, normal mood/affect, oriented x 3, + motor weakness Laboratory Results Last 24 Hours Test 08/08/17 22:54 08/09/17 04:54 08/09/17 06:21 08/09/17 11:06 Bedside Glucose 179 mg/dl 256 mg/dl 292 mg/dl White Blood Count 3.97 K/uL Red Blood Count 4.05 M/uL Hemoglobin 8.8 g/dL Hematocrit 32.4 % Mean Corpuscular Volume 80.0 fL Mean Corpuscular Hemoglobin 21.7 pg Mean Corpuscular Hemoglobin Concent 27.2 g/dl RDW Standard Deviation 61.4 fL RDW Coefficient of Variation 20.8 % Platelet Count 174 K/uL Mean Platelet Volume 10.8 fL Sodium Level 140 mmol/L Potassium Level 4.9 mmol/L Chloride Level 105 mmol/L Carbon Dioxide Level 30 mmol/L Anion Gap 5.0 mmol/L Blood Urea Nitrogen 25 mg/dl Creatinine 1.58 mg/dl Est Creatinine Clear Calc Drug Dose 42.5 ml/min Estimated GFR () 44.9 Estimated GFR (Non- 38.8 BUN/Creatinine Ratio 15.6 Random Glucose 251 mg/dl Calcium Level 8.3 mg/dl Magnesium Level 2.9 mg/dl Test 08/09/17 16:16 Bedside Glucose 234 mg/dl Assessment and Plan 86 y/o M w/Hx COPD, combined CHF CAD, CKD 3-4, DM, chronic aspiration, adrenal insufficiency, recurrent PNM, recurrent UTIs, history of DVT. Resides in a nursing facility. Pt has been admitted to the hospital 4 x this yr for pneumonia due to aspiration and most recently due to a GI bleed and then a UTI. He arrives from the long-term largely due to altered mentation, labored breathing and hypoxia. He was also reported to be falling repeatedly over the past few days. The pt was hypoglycemic on arrival to the ER. - Metabolic encephalopathy in the setting of hypoxia, acute on chronic systolic heart failure and diastolic heart failure Lasix 40mg IV given in ED, diuresed well, -3500cc continue fluid restriction, daily weights encephalopathy resolved since he is breathing better Cr up slightly with diuresis, check BMP tomorrow AM likely redose Lasix in the AM - COPD, initially thought to have exacerbation, however, appears it was just heart failure stop Solu Medrol, continue nebulizers PRN - CKD with mild rise in Cr due to diuresis - Acute on chronic hypoxic respiratory failure resolved with diuresis - Adrenal insufficiency: continue Fludrocortisone and Hydrocortisone - DM: resume basal and bolus dosing - Anemia of chronic disease: repeat Hb tomorrow plan: check labs in the AM, likely redose Lasix, breathing is stable currently, get PT/OT
[2017-08-09] MEDS: TAMSULOSIN HCL 0.4 MG CAP PO SCH (19:56)
[2017-08-09] MEDS: ATORVASTATIN 20 MG TAB PO SCH (19:58)
[2017-08-09] MEDS: FAMOTIDINE 20 MG TAB PO SCH (20:02)
[2017-08-09] MEDS: METHENAMINE HIPPURATE 1 GM TAB PO SCH (20:03)
[2017-08-09] MEDS: HYDROCORTISONE 10 MG TAB PO SCH (20:20)
[2017-08-10] VITALS (8 sets, daily range): BP systolic 131–152; BP diastolic 73–83; PULSE 67–72; TEMP 36.4–36.7; O2SAT 92–97
[2017-08-10] MEDS ORDERED: METHYLPREDNISOLONE IV 60 MG in SYRINGE 0 ML IV SCH
[2017-08-10] MEDS: NITROGLYCERIN 2% OINTMENT 30GM TUBE EXT SCH ×2 (00:05→06:04)
[2017-08-10] MEDS: ALBUT/IPRATROP 3MG/0.5MG NEB 3 ML VIAL INH SCH ×2 (02:03→07:01)
[2017-08-10 06:38] LABS: BASO % 0.2 %; BASO ABS # 0.01 K/uL (0-0.2); HEMATOCRIT 30.4 % (42-52); HEMOGLOBIN 8.3 g/dL (14.0-18.0); IG# 0.01 K/uL (0.00-0.02); LYMPH % 8.1 %; LYMPH ABS # 0.43 K/uL (1.2-3.4); MEAN CELL VOLUME 79.8 fL (80-100); MEAN CORPUSCULAR HEMOGLOBIN 21.8 pg (25-34); MEAN CORPUSCULAR HGB CONC 27.3 g/dl (32-36); MONO % 9.8 %; MONO ABS # 0.52 K/uL (0.11-0.59); NEUT % 81.7 %; NEUT ABS # 4.35 K/uL (1.4-6.5); NUCLEATED RED BLOOD CELL ABS 0.03 K/uL (0-0); PLATELET COUNT 169 K/uL (130-400); RED CELL DISTRIBUTION WIDTH CV 20.6 % (11.5-14.5); RED CELL DISTRIBUTION WIDTH SD 60.1 fL (36.4-46.3); WHITE BLOOD COUNT 5.32 K/uL (4.8-10.8)
[2017-08-10 06:51] LABS: CALCIUM 8.2 mg/dl (8.5-10.1); CREATININE 1.66 mg/dl (0.60-1.40); POTASSIUM 4.7 mmol/L (3.5-5.1)
[2017-08-10] MEDS: SYSTANE~ORDER AWAITING ACTION SCH ×4 (08:00→20:45)
[2017-08-10] MEDS: HYDROCORTISONE 10 MG TAB PO SCH ×2 (08:51→20:21)
[2017-08-10] MEDS: CYANOCOBALAMIN 500 MCG TAB (VIT B-12) PO SCH (08:52)
[2017-08-10] MEDS: DUTASTERIDE 0.5 MG PO SCH (08:52)
[2017-08-10] MEDS: GABAPENTIN 800 MG TAB PO SCH ×3 (08:53→20:26)
[2017-08-10] MEDS: GABAPENTIN 100 MG CAP PO SCH ×3 (08:53→20:24)
[2017-08-10] MEDS: POTASSIUM CHLORIDE 20 MEQ TABCR PO SCH (08:54)
[2017-08-10] MEDS: LIDODERM (LIDOCAINE) PATCH 5% TD SCH (08:56)
[2017-08-10] MEDS: DOCUSATE SODIUM 100 MG CAP PO SCH ×2 (08:57→20:20)
[2017-08-10] MEDS: MAGNESIUM OXIDE 400 MG TAB PO SCH ×2 (08:57→20:25)
[2017-08-10] MEDS: GUAIFENESIN 600 MG TABCR PO SCH ×2 (08:57→20:34)
[2017-08-10] MEDS: DULOXETINE HCL 60 MG CAP PO SCH (08:57)
[2017-08-10] MEDS: FLUTICASONE/SALMETEROL 250/50 (ADVAIR) 14 PUFF/1 INHALER INH SCH ×2 (08:58→20:20)
[2017-08-10] MEDS: PANTOprazole SOD 40 MG TAB PO SCH (08:58)
[2017-08-10] MEDS: FLUDROCORTISONE ACETATE 0.1 MG TAB PO SCH ×2 (08:58→20:24)
[2017-08-10] MEDS: ASPIRIN 81 MG CHEW PO SCH (09:01)
[2017-08-10] MEDS: BISACODYL 5 MG TABEC PO SCH ×2 (09:02→20:43)
[2017-08-10] MEDS: OXYCODONE HCL 15 MG TABCR (OXYCONTIN) PO SCH ×2 (09:02→20:43)
[2017-08-10] MEDS: INSULIN ASPART 100 UNITS/ML 3 ML PEN SC SCH ×4 (09:08→20:57)
--- NOTE | 2017-08-10 10:05 | Progress Note ---
Subjective Date of Service: Aug 10, 2017. Subjective Pt evaluation today including: conversation w/ patient, physical exam, lab review, review of inpatient medication list Pain: no pain PO Intake: adequate Voiding: gomez catheter in place (chronic) patient feeling well this AM, sitting in chair, ate breakfast breathing continues to be improved compared to time of admission cumulative UO is 4800 for the admission increased Lasix to 40mg daily today Cr is stable at 1.66 Hb down slightly, patient denies any melena, has a h/o GI bleeding Problem List Medical Problems: (1) Acute on chronic renal failure Status: Acute (2) Altered mental status Status: Acute (3) CHF (congestive heart failure) Status: Acute (4) Coagulopathy Status: Acute (5) Confusion Status: Acute (6) Confusion Status: Acute (7) Fever Status: Acute (8) Fever Status: Acute (9) Forearm laceration Status: Acute (10) GI bleed Status: Acute (11) Hypoglycemia Status: Acute (12) Hypoglycemia Status: Acute (13) Hypoxia Status: Acute (14) Hypoxia Status: Acute (15) Influenza A Status: Acute (16) Lactic acidosis Status: Acute (17) Malfunction of Gomez catheter Status: Acute (18) Reactive airway disease Status: Acute (19) Respiratory distress Status: Acute (20) UTI (urinary tract infection) Status: Acute Review of Systems Constitutional: + weakness, + fatigue Respiratory: + shortness of breath, + dyspnea on exertion Male : + problem reported (chronic gomez) Neurologic: + weakness All Other Systems: Reviewed and Negative Medications Current Inpatient Medications Medications (Trade) Dose Ordered Sig/Cole Route Start Time Stop Time Status Last Admin Dose Admin Acetaminophen (Tylenol Tab) 650 mg Q4H PRN PO 08/08/17 11:15 09/07/17 11:14 Al Hydrox/Mg Hydrox/Simethicone (Maalox Max Susp) 15 ml Q4H PRN PO 08/08/17 11:15 09/07/17 11:14 Magnesium Hydroxide (Milk Of Magnesia Susp) 30 ml Q12H PRN PO 08/08/17 11:15 09/07/17 11:14 Ondansetron HCl (Zofran Inj) 4 mg Q6H PRN IV 08/08/17 11:15 09/07/17 11:14 Morphine Sulfate (MoRPHine SULFATE INJ) 2 mg Q30M PRN IV 08/08/17 11:15 08/22/17 11:14 Polyethylene (Miralax Powder Packet) 17 gm DAILY PRN PO 08/08/17 11:15 09/07/17 11:14 Aspirin (Aspirin Chew) 81 mg QAM PO 08/09/17 09:00 09/08/17 08:59 08/10/17 09:01 81 MG Atenolol (Tenormin Tab) 12.5 mg QAM PO 08/09/17 09:00 09/08/17 08:59 08/10/17 08:55 12.5 MG Atorvastatin Calcium (Lipitor Tab) 20 mg HS PO 08/08/17 21:00 09/07/17 20:59 08/09/17 19:58 20 MG Bisacodyl (Dulcolax Tab) 5 mg BID PO 08/08/17 21:00 09/07/17 20:59 08/10/17 09:02 5 MG Docusate Sodium (coLACE CAP) 100 mg BID PO 08/08/17 21:00 09/07/17 20:59 08/10/17 08:57 100 MG Duloxetine HCl (Cymbalta Cap) 60 mg QAM PO 08/09/17 09:00 09/08/17 08:59 08/10/17 08:57 60 MG Famotidine (Pepcid Tab) 20 mg HS PO 08/08/17 21:00 09/07/17 20:59 08/09/17 20:02 20 MG Fludrocortisone Acetate (Florinef Tab) 0.1 mg BID PO 08/08/17 21:00 09/07/17 20:59 08/10/17 08:58 0.1 MG Salmeterol Xinafoate/ Fluticasone (Advair Diskus 250/50 Inh) 1 puff BID INH 08/08/17 21:00 09/07/17 20:59 08/10/17 08:58 1 PUFF Gabapentin (Neurontin Tab) 800 mg TID PO 08/08/17 21:00 09/07/17 20:59 08/10/17 08:53 800 MG Gabapentin (Neurontin Cap) 100 mg TID PO 08/08/17 21:00 09/07/17 20:59 08/10/17 08:53 100 MG Guaifenesin (Mucinex Contr Rel Tab) 1,200 mg Q12 PO 08/08/17 21:00 09/07/17 20:59 08/10/17 08:57 1,200 MG Lidocaine (Lidoderm Patch 5%) 1 patch QAM TD 08/09/17 09:00 09/08/17 08:59 08/10/17 08:56 1 PATCH Magnesium Oxide (Mag-Ox Tab) 400 mg BID PO 08/08/17 21:00 09/07/17 20:59 08/10/17 08:57 400 MG Methenamine Hippurate (Urex Tab) 1 gm HS PO 08/08/17 21:00 08/13/17 20:59 08/09/17 20:03 1 GM Metolazone (Zaroxolyn Tab) 2.5 mg DAILY PRN PO 08/08/17 11:15 09/07/17 11:14 Nitroglycerin (Nitrostat Tab) 0.4 mg PRN UT 08/08/17 11:15 09/07/17 11:14 Oxycodone HCl (Oxycontin Tab) 15 mg Q12 PO 08/08/17 21:00 08/22/17 20:59 08/10/17 09:02 15 MG Potassium Chloride (Klor-Con Tab) 60 meq QAM PO 08/09/17 09:00 09/08/17 08:59 08/10/17 08:54 60 MEQ Simethicone (Mylicon Chew Tab) 80 mg QID PRN PO 08/08/17 11:15 09/07/17 11:14 Tamsulosin HCl (Flomax Cap) 0.4 mg HS PO 08/08/17 21:00 09/07/17 20:59 08/09/17 19:56 0.4 MG Cyanocobalamin (Vitamin B-12 Tab) 1,000 mcg QAM PO 08/09/17 09:00 09/08/17 08:59 08/10/17 08:52 1,000 MCG Pantoprazole Sodium (Protonix Tab) 40 mg QAM PO 08/09/17 09:00 09/08/17 08:59 08/10/17 08:58 40 MG Miscellaneous Information (Order Awaiting Action) 1 ea QS N/A 08/08/17 16:00 09/07/17 15:59 Potassium Chloride (Klor-Con Tab) 40 meq BID@1200,2100 PO 08/08/17 21:00 09/07/17 20:59 Future Hold 08/09/17 12:00 40 MEQ Miscellaneous (Remove Lidoderm Patch) 1 ea DAILY@21 N/A 08/08/17 21:00 09/07/17 20:59 08/09/17 21:32 1 EA Albuterol/ Ipratropium (Duoneb) 3 ml Q6R INH 08/08/17 15:00 09/07/17 14:59 08/10/17 07:01 3 ML Levalbuterol (Xopenex 1.25MG/ 0.5ML Neb) 1.25 mg Q4H PRN INH 08/08/17 11:15 09/07/17 11:14 Tramadol HCl (Ultram Tab) 50 mg Q4H PRN PO 08/08/17 11:45 09/07/17 11:44 Lorazepam (Ativan Inj) 0.5 mg ONE PRN IV 08/08/17 11:45 09/07/17 11:44 Glucose (Glucose 40% Gel) 15-30 GRAMS 15 GRAMS... UD PRN PO 08/08/17 13:30 09/07/17 13:29 Glucose (Glucose Chew Tab) 4-8 Tablets 4 Tabl... UD PRN PO 08/08/17 13:30 09/07/17 13:29 Dextrose (Dextrose 50% 50ML Syringe) 25-50ML OF 50% DW IV FOR... UD PRN IV 08/08/17 13:30 09/07/17 13:29 Glucagon (Glucagon Inj) 1 mg UD PRN SQ 08/08/17 13:30 09/07/17 13:29 Dutasteride (Avodart) 0.5 mg DAILY PO 08/10/17 09:00 09/09/17 08:59 08/10/17 08:52 0.5 MG Hydrocortisone (Cortef Tab) 40 mg BID PO 08/09/17 21:00 09/08/17 20:59 08/10/17 08:51 40 MG Insulin Aspart (novoLOG ASPART) start only after intial ... ACHS SC 08/09/17 16:45 09/08/17 16:44 08/10/17 09:08 1 UNITS Furosemide (Lasix Tab) 40 mg QAM PO 08/10/17 09:00 09/08/17 08:59 Objective Vital Signs Date Time Temp Pulse Resp B/P (MAP) Pulse Ox O2 Delivery O2 Flow Rate FiO2 08/10/17 07:31 36.4 67 18 131/77 (95) 97 08/10/17 07:01 67 18 97 Nasal Cannula 2.0 08/10/17 04:06 94 Nasal Cannula 2.0 08/10/17 03:45 36.7 67 20 133/80 (97) 96 Nasal Cannula 2.0 08/10/17 02:03 67 20 94 Nasal Cannula 2.0 08/10/17 00:20 94 Nasal Cannula 2.0 08/09/17 23:38 36.6 72 20 132/81 (98) 94 Nasal Cannula 2.0 08/09/17 20:00 94 Nasal Cannula 2.0 08/09/17 18:58 83 20 94 Nasal Cannula 2.0 08/09/17 18:51 36.7 93 20 153/98 (116) 95 Nasal Cannula 2.0 08/09/17 16:14 36.6 70 20 134/85 (101) 95 Nasal Cannula 2.0 08/09/17 16:00 Room Air 08/09/17 14:44 71 20 95 Nasal Cannula 2.0 08/09/17 12:00 Room Air 08/09/17 11:58 36.5 70 24 136/83 (100) 96 Room Air Physical Exam General Appearance: WD/WN, no apparent distress Eyes: normal inspection, EOMI, sclerae normal ENT: normal ENT inspection, hearing grossly normal, pharynx normal Neck: supple, no adenopathy, no JVD, trachea midline Respiratory/Chest: chest non-tender, lungs clear, normal breath sounds, no respiratory distress, no accessory muscle use Cardiovascular: regular rate, rhythm, no edema, no gallop, no JVD, no murmur Abdomen: normal bowel sounds, non tender, soft, no organomegaly Extremities: normal range of motion, non-tender, normal inspection, no pedal edema, no calf tenderness, pelvis stable 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: synthetic cloth binding cutter II-XII nml as tested, alert, normal mood/affect, oriented x 3, + motor weakness (generalized, cannot transfer independently) Skin: normal color, warm/dry, no rash Laboratory Results Last 24 Hours Test 08/09/17 11:06 08/09/17 16:16 08/09/17 20:17 08/10/17 05:44 Bedside Glucose 292 mg/dl 234 mg/dl 288 mg/dl White Blood Count 5.32 K/uL Red Blood Count 3.81 M/uL Hemoglobin 8.3 g/dL Hematocrit 30.4 % Mean Corpuscular Volume 79.8 fL Mean Corpuscular Hemoglobin 21.8 pg Mean Corpuscular Hemoglobin Concent 27.3 g/dl Platelet Count 169 K/uL Mean Platelet Volume 10.0 fL Neutrophils (%) (Auto) 81.7 % Lymphocytes (%) (Auto) 8.1 % Monocytes (%) (Auto) 9.8 % Eosinophils (%) (Auto) 0.0 % Basophils (%) (Auto) 0.2 % Neutrophils # (Auto) 4.35 K/uL Lymphocytes # (Auto) 0.43 K/uL Monocytes # (Auto) 0.52 K/uL Eosinophils # (Auto) 0.00 K/uL Basophils # (Auto) 0.01 K/uL RDW Standard Deviation 60.1 fL RDW Coefficient of Variation 20.6 % Immature Granulocyte % (Auto) 0.2 % Immature Granulocyte # (Auto) 0.01 K/uL Nucleated RBC Absolute Count (auto) 0.03 K/uL Nucleated Red Blood Cells % 0.5 % Hypochromasia PRESENT Anisocytosis PRESENT Schistocytes 1+ Sodium Level 137 mmol/L Potassium Level 4.7 mmol/L Chloride Level 105 mmol/L Carbon Dioxide Level 27 mmol/L Anion Gap 5.0 mmol/L Blood Urea Nitrogen 32 mg/dl Creatinine 1.66 mg/dl Est Creatinine Clear Calc Drug Dose 40.4 ml/min Estimated GFR () 42.3 Estimated GFR (Non- 36.5 BUN/Creatinine Ratio 19.3 Random Glucose 217 mg/dl Calcium Level 8.2 mg/dl Magnesium Level 2.8 mg/dl Test 08/10/17 06:54 Bedside Glucose 212 mg/dl Assessment and Plan 86 y/o M w/Hx COPD, combined CHF CAD, CKD 3-4, DM, chronic aspiration, adrenal insufficiency, recurrent PNM, recurrent UTIs, history of DVT. Resides in a nursing facility. Pt has been admitted to the hospital 4 x this yr for pneumonia due to aspiration and most recently due to a GI bleed and then a UTI. He arrives from the [place] [facility] largely due to altered mentation, labored breathing and hypoxia. He was also reported to be falling repeatedly over the past few days. The pt was hypoglycemic on arrival to the ER. - Metabolic encephalopathy in the setting of hypoxia, acute on chronic systolic heart failure and diastolic heart failure Lasix 40mg IV given in ED, diuresed well, -4800cc out thus far will increase Lasix to 40mg PO daily, follow urine output fluid restrict to 1500cc/day, weights, follow I/O encephalopathy resolved since he is breathing better Cr at 1.66, baseline - COPD, initially thought to have exacerbation, however, appears it was just heart failure stopped Solu Medrol on 08/09, continue nebulizers PRN - CKD stage III Cr was 1.38 on admission and has risen to 1.66 looking back, baseline Cr is 1.6-1.9 range - Acute on chronic hypoxic respiratory failure resolved with diuresis - Adrenal insufficiency: continue Fludrocortisone and Hydrocortisone - DM: resume basal and bolus dosing - Anemia of chronic disease, h/o GI bleeding Hb down slightly at 8.3, BP stable - H/o UTI and pneumonia: no current evidence of infection WBC stable, afebrile, no growth on blood culture plan: transfer to medical floor, PT/OT consults, check labs in the AM
[2017-08-10] MEDS: POLYETHYLENE (MIRALAX) 17 GM PACK PO PRN ×2 (10:08→20:49)
[2017-08-10] MEDS: FUROSEMIDE 40 MG TAB PO SCH (10:08)
[2017-08-10] MEDS ORDERED: ALBUT/IPRATROP 3MG/0.5MG NEB 3 ML VIAL INH PRN (15:00)
[2017-08-10] MEDS: ATORVASTATIN 20 MG TAB PO SCH (20:33)
[2017-08-10] MEDS: TAMSULOSIN HCL 0.4 MG CAP PO SCH (20:34)
[2017-08-10] MEDS: FAMOTIDINE 20 MG TAB PO SCH (20:35)
[2017-08-10] MEDS: METHENAMINE HIPPURATE 1 GM TAB PO SCH (20:36)
[2017-08-11] MEDS: INSULIN ASPART 100 UNITS/ML 3 ML PEN SC SCH ×4 (06:30→21:05)
[2017-08-11 06:39] LABS: BASO % 0.2 %; BASO ABS # 0.01 K/uL (0-0.2); EOS % 0.8 %; EOS ABS # 0.04 K/uL (0-0.5); IG# 0.02 K/uL (0.00-0.02); MONO % 9.8 %; MONO ABS # 0.49 K/uL (0.11-0.59); NEUT % 78.8 %; NEUT ABS # 3.95 K/uL (1.4-6.5)
[2017-08-11 06:43] LABS: CALCIUM 8.2 mg/dl (8.5-10.1); CREATININE 1.47 mg/dl (0.60-1.40); POTASSIUM 4.1 mmol/L (3.5-5.1)
[2017-08-11 07:43] VITALS: BP 162/90; PULSE 71; TEMP 36.4; O2SAT 93
[2017-08-11] MEDS: SYSTANE~ORDER AWAITING ACTION SCH ×2 (08:00→15:02)
[2017-08-11 08:18] LABS: HEMATOCRIT 30.6 % (42-52); HEMOGLOBIN 8.4 g/dL (14.0-18.0); MEAN CELL VOLUME 80.1 fL (80-100); MEAN CORPUSCULAR HGB CONC 27.5 g/dl (32-36); MEAN PLATELET VOLUME 10.5 fL (7.4-10.4); PLATELET COUNT 158 K/uL (130-400); RED CELL DISTRIBUTION WIDTH CV 20.7 % (11.5-14.5); WHITE BLOOD COUNT 5.01 K/uL (4.8-10.8)
[2017-08-11] MEDS: FLUTICASONE/SALMETEROL 250/50 (ADVAIR) 14 PUFF/1 INHALER INH SCH ×2 (08:55→20:45)
[2017-08-11] MEDS: GABAPENTIN 800 MG TAB PO SCH ×3 (08:56→20:54)
[2017-08-11] MEDS: DULOXETINE HCL 60 MG CAP PO SCH (08:57)
[2017-08-11] MEDS: DOCUSATE SODIUM 100 MG CAP PO SCH ×2 (08:57→20:45)
[2017-08-11] MEDS: CYANOCOBALAMIN 500 MCG TAB (VIT B-12) PO SCH (08:57)
[2017-08-11] MEDS: FLUDROCORTISONE ACETATE 0.1 MG TAB PO SCH ×2 (08:58→20:00)
[2017-08-11] MEDS: FUROSEMIDE 40 MG TAB PO SCH (08:59)
[2017-08-11] MEDS: GABAPENTIN 100 MG CAP PO SCH ×3 (08:59→20:54)
[2017-08-11] MEDS: MAGNESIUM OXIDE 400 MG TAB PO SCH ×2 (09:00→20:55)
[2017-08-11] MEDS: POTASSIUM CHLORIDE 20 MEQ TABCR PO SCH ×2 (09:01→20:55)
[2017-08-11] MEDS: PANTOprazole SOD 40 MG TAB PO SCH (09:01)
[2017-08-11] MEDS: GUAIFENESIN 600 MG TABCR PO SCH ×2 (09:02→20:53)
[2017-08-11] MEDS: LIDODERM (LIDOCAINE) PATCH 5% TD SCH (09:03)
[2017-08-11] MEDS: HYDROCORTISONE 10 MG TAB PO SCH ×2 (09:05→20:47)
[2017-08-11] MEDS: BISACODYL 5 MG TABEC PO SCH ×2 (09:08→20:59)
[2017-08-11] MEDS: OXYCODONE HCL 15 MG TABCR (OXYCONTIN) PO SCH ×2 (09:08→20:59)
[2017-08-11 09:56] VITALS: PULSE 91; O2SAT 90
[2017-08-11] MEDS: ASPIRIN 81 MG CHEW PO SCH (10:44)
[2017-08-11] MEDS: DUTASTERIDE 0.5 MG PO SCH (10:44)
[2017-08-11 14:40] VITALS: BP 128/73; PULSE 66; TEMP 36.9; O2SAT 94
--- NOTE | 2017-08-11 16:01 | Progress Note ---
Subjective Date of Service: Aug 11, 2017. Subjective Pt evaluation today including: conversation w/ patient, conversation w/ family (), physical exam, lab review, review of inpatient medication list Pain: no pain PO Intake: adequate Voiding: gomez catheter in place patient feeling well, breathing is stable at rest, some dyspnea on exertion making a lot of urine he weight 226lbs this AM, he said that is what he weighed years ago discussed that he has diuresed 6700mL since admission feel that he can continue Lasix 40mg PO daily updated reviewed labs, Hb stable, K is stable at 4.1 Cr stable Problem List Medical Problems: (1) Acute on chronic renal failure Status: Acute (2) Altered mental status Status: Acute (3) CHF (congestive heart failure) Status: Acute (4) Coagulopathy Status: Acute (5) Confusion Status: Acute (6) Confusion Status: Acute (7) Fever Status: Acute (8) Fever Status: Acute (9) Forearm laceration Status: Acute (10) GI bleed Status: Acute (11) Hypoglycemia Status: Acute (12) Hypoglycemia Status: Acute (13) Hypoxia Status: Acute (14) Hypoxia Status: Acute (15) Influenza A Status: Acute (16) Lactic acidosis Status: Acute (17) Malfunction of Gomez catheter Status: Acute (18) Reactive airway disease Status: Acute (19) Respiratory distress Status: Acute (20) UTI (urinary tract infection) Status: Acute Review of Systems Constitutional: + weakness, + fatigue Respiratory: + dyspnea on exertion All Other Systems: Reviewed and Negative Medications Current Inpatient Medications Medications (Trade) Dose Ordered Sig/Cole Route Start Time Stop Time Status Last Admin Dose Admin Acetaminophen (Tylenol Tab) 650 mg Q4H PRN PO 08/08/17 11:15 09/07/17 11:14 Al Hydrox/Mg Hydrox/Simethicone (Maalox Max Susp) 15 ml Q4H PRN PO 08/08/17 11:15 09/07/17 11:14 Magnesium Hydroxide (Milk Of Magnesia Susp) 30 ml Q12H PRN PO 08/08/17 11:15 09/07/17 11:14 08/10/17 17:54 30 ML Ondansetron HCl (Zofran Inj) 4 mg Q6H PRN IV 08/08/17 11:15 09/07/17 11:14 Morphine Sulfate (MoRPHine SULFATE INJ) 2 mg Q30M PRN IV 08/08/17 11:15 08/22/17 11:14 Polyethylene (Miralax Powder Packet) 17 gm DAILY PRN PO 08/08/17 11:15 09/07/17 11:14 08/10/17 20:49 17 GM Aspirin (Aspirin Chew) 81 mg QAM PO 08/09/17 09:00 09/08/17 08:59 08/11/17 10:44 81 MG Atenolol (Tenormin Tab) 12.5 mg QAM PO 08/09/17 09:00 09/08/17 08:59 08/11/17 08:58 12.5 MG Atorvastatin Calcium (Lipitor Tab) 20 mg HS PO 08/08/17 21:00 09/07/17 20:59 08/10/17 20:33 20 MG Bisacodyl (Dulcolax Tab) 5 mg BID PO 08/08/17 21:00 09/07/17 20:59 08/11/17 09:08 5 MG Docusate Sodium (coLACE CAP) 100 mg BID PO 08/08/17 21:00 09/07/17 20:59 08/11/17 08:57 100 MG Duloxetine HCl (Cymbalta Cap) 60 mg QAM PO 08/09/17 09:00 09/08/17 08:59 08/11/17 08:57 60 MG Famotidine (Pepcid Tab) 20 mg HS PO 08/08/17 21:00 09/07/17 20:59 08/10/17 20:35 20 MG Fludrocortisone Acetate (Florinef Tab) 0.1 mg BID PO 08/08/17 21:00 09/07/17 20:59 08/11/17 08:58 0.1 MG Salmeterol Xinafoate/ Fluticasone (Advair Diskus 250/50 Inh) 1 puff BID INH 08/08/17 21:00 09/07/17 20:59 08/11/17 08:55 1 PUFF Gabapentin (Neurontin Tab) 800 mg TID PO 08/08/17 21:00 09/07/17 20:59 08/11/17 12:17 800 MG Gabapentin (Neurontin Cap) 100 mg TID PO 08/08/17 21:00 09/07/17 20:59 08/11/17 12:17 100 MG Guaifenesin (Mucinex Contr Rel Tab) 1,200 mg Q12 PO 08/08/17 21:00 09/07/17 20:59 08/11/17 09:02 1,200 MG Lidocaine (Lidoderm Patch 5%) 1 patch QAM TD 08/09/17 09:00 09/08/17 08:59 08/11/17 09:03 1 PATCH Magnesium Oxide (Mag-Ox Tab) 400 mg BID PO 08/08/17 21:00 09/07/17 20:59 08/11/17 09:00 400 MG Methenamine Hippurate (Urex Tab) 1 gm HS PO 08/08/17 21:00 08/13/17 20:59 08/10/17 20:36 1 GM Metolazone (Zaroxolyn Tab) 2.5 mg DAILY PRN PO 08/08/17 11:15 09/07/17 11:14 Nitroglycerin (Nitrostat Tab) 0.4 mg PRN UT 08/08/17 11:15 09/07/17 11:14 Oxycodone HCl (Oxycontin Tab) 15 mg Q12 PO 08/08/17 21:00 08/22/17 20:59 08/11/17 09:08 15 MG Potassium Chloride (Klor-Con Tab) 60 meq QAM PO 08/09/17 09:00 09/08/17 08:59 08/11/17 09:01 60 MEQ Simethicone (Mylicon Chew Tab) 80 mg QID PRN PO 08/08/17 11:15 09/07/17 11:14 Tamsulosin HCl (Flomax Cap) 0.4 mg HS PO 08/08/17 21:00 09/07/17 20:59 08/10/17 20:34 0.4 MG Cyanocobalamin (Vitamin B-12 Tab) 1,000 mcg QAM PO 08/09/17 09:00 09/08/17 08:59 08/11/17 08:57 1,000 MCG Pantoprazole Sodium (Protonix Tab) 40 mg QAM PO 08/09/17 09:00 09/08/17 08:59 08/11/17 09:01 40 MG Miscellaneous Information (Order Awaiting Action) 1 ea QS N/A 08/08/17 16:00 09/07/17 15:59 Potassium Chloride (Klor-Con Tab) 40 meq BID@1200,2100 PO 08/08/17 21:00 09/07/17 20:59 Future Hold 08/09/17 12:00 40 MEQ Miscellaneous (Remove Lidoderm Patch) 1 ea DAILY@21 N/A 08/08/17 21:00 09/07/17 20:59 08/10/17 20:39 1 EA Levalbuterol (Xopenex 1.25MG/ 0.5ML Neb) 1.25 mg Q4H PRN INH 08/08/17 11:15 09/07/17 11:14 Tramadol HCl (Ultram Tab) 50 mg Q4H PRN PO 08/08/17 11:45 09/07/17 11:44 Lorazepam (Ativan Inj) 0.5 mg ONE PRN IV 08/08/17 11:45 09/07/17 11:44 Glucose (Glucose 40% Gel) 15-30 GRAMS 15 GRAMS... UD PRN PO 08/08/17 13:30 09/07/17 13:29 Glucose (Glucose Chew Tab) 4-8 Tablets 4 Tabl... UD PRN PO 08/08/17 13:30 09/07/17 13:29 Dextrose (Dextrose 50% 50ML Syringe) 25-50ML OF 50% DW IV FOR... UD PRN IV 08/08/17 13:30 09/07/17 13:29 Glucagon (Glucagon Inj) 1 mg UD PRN SQ 08/08/17 13:30 09/07/17 13:29 Dutasteride (Avodart) 0.5 mg DAILY PO 08/10/17 09:00 09/09/17 08:59 08/11/17 10:44 0.5 MG Hydrocortisone (Cortef Tab) 40 mg BID PO 08/09/17 21:00 09/08/17 20:59 08/11/17 09:05 40 MG Insulin Aspart (novoLOG ASPART) start only after intial ... ACHS SC 08/09/17 16:45 09/08/17 16:44 08/11/17 12:17 1 UNITS Furosemide (Lasix Tab) 40 mg QAM PO 08/10/17 09:00 09/08/17 08:59 08/11/17 08:59 40 MG Albuterol/ Ipratropium (Duoneb) 3 ml Q6R PRN INH 08/10/17 15:00 09/07/17 14:59 Objective Vital Signs Date Time Temp Pulse Resp B/P (MAP) Pulse Ox O2 Delivery O2 Flow Rate FiO2 08/11/17 14:40 36.9 66 18 128/73 (91) 94 2.0 08/11/17 09:56 91 90 08/11/17 08:00 Room Air 08/11/17 07:43 36.4 71 18 162/90 (114) 93 Nasal Cannula 3.0 08/11/17 00:30 Nasal Cannula 3.0 08/10/17 22:50 36.4 67 21 136/83 (100) 94 Nasal Cannula 3.0 08/10/17 16:00 Room Air 08/10/17 15:41 36.5 72 20 152/73 (99) 92 Nasal Cannula 2.0 Physical Exam General Appearance: no apparent distress, + obese Eyes: normal inspection, EOMI, sclerae normal ENT: normal ENT inspection, hearing grossly normal, pharynx normal Neck: supple, no adenopathy, no JVD, trachea midline Respiratory/Chest: chest non-tender, normal breath sounds, no respiratory distress, no accessory muscle use, + crackles (faint in bases) Cardiovascular: regular rate, rhythm, no edema, no gallop, no JVD, no murmur Abdomen: normal bowel sounds, non tender, soft, no organomegaly Extremities: normal range of motion, non-tender, normal inspection, no pedal edema, no calf tenderness, pelvis stable 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, alert, normal mood/affect, oriented x 3, + motor weakness Skin: normal color, warm/dry, no rash Laboratory Results Last 24 Hours Test 08/10/17 16:47 08/10/17 19:32 08/11/17 05:47 08/11/17 07:52 Bedside Glucose 235 mg/dl 221 mg/dl 415 mg/dl White Blood Count 5.01 K/uL Red Blood Count 3.82 M/uL Hemoglobin 8.4 g/dL Hematocrit 30.6 % Mean Corpuscular Volume 80.1 fL Mean Corpuscular Hemoglobin 22.0 pg Mean Corpuscular Hemoglobin Concent 27.5 g/dl Platelet Count 158 K/uL Mean Platelet Volume 10.5 fL Neutrophils (%) (Auto) 78.8 % Lymphocytes (%) (Auto) 10.0 % Monocytes (%) (Auto) 9.8 % Eosinophils (%) (Auto) 0.8 % Basophils (%) (Auto) 0.2 % Neutrophils # (Auto) 3.95 K/uL Lymphocytes # (Auto) 0.50 K/uL Monocytes # (Auto) 0.49 K/uL Eosinophils # (Auto) 0.04 K/uL Basophils # (Auto) 0.01 K/uL RDW Standard Deviation 61.0 fL RDW Coefficient of Variation 20.7 % Immature Granulocyte % (Auto) 0.4 % Immature Granulocyte # (Auto) 0.02 K/uL Large Platelets 1+ Polychromasia 1+ Basophilic Stippling 1+ Sodium Level 140 mmol/L Potassium Level 4.1 mmol/L Chloride Level 106 mmol/L Carbon Dioxide Level 29 mmol/L Anion Gap 5.0 mmol/L Blood Urea Nitrogen 30 mg/dl Creatinine 1.47 mg/dl Est Creatinine Clear Calc Drug Dose 45.5 ml/min Estimated GFR () 49.0 Estimated GFR (Non- 42.3 BUN/Creatinine Ratio 20.1 Random Glucose 202 mg/dl Calcium Level 8.2 mg/dl Magnesium Level 2.8 mg/dl Test 08/11/17 07:53 08/11/17 07:59 08/11/17 08:12 08/11/17 11:47 Bedside Glucose 240 mg/dl 178 mg/dl 203 mg/dl Random Glucose 171 mg/dl Assessment and Plan 86 y/o M w/Hx COPD, combined CHF CAD, CKD 3-4, DM, chronic aspiration, adrenal insufficiency, recurrent PNM, recurrent UTIs, history of DVT. Resides in a nursing facility. Pt has been admitted to the hospital 4 x this yr for pneumonia due to aspiration and most recently due to a GI bleed and then a UTI. He arrives from the snf largely due to altered mentation, labored breathing and hypoxia. He was also reported to be falling repeatedly over the past few days. The pt was hypoglycemic on arrival to the ER. - Metabolic encephalopathy in the setting of hypoxia, acute on chronic systolic heart failure and diastolic heart failure Lasix 40mg IV given in ED, brisk response continue Lasix 40mg PO daily (was taking 20mg PO daily prior to admission) diuresed well, -6700cc out thus far fluid restrict to 1500cc/day, weight down to 102kg, follow I/O encephalopathy resolved since he is breathing better Cr at baseline, tolerating Lasix 40mg daily plan to d/c home once euvolemic, today he is still diuresing strict 1500cc/day fluid restriction on discharge and [facility] should weigh daily continue Lasix 40mg PO daily - COPD, initially thought to have exacerbation, however, appears it was just heart failure stopped Solu Medrol on 08/09, continue nebulizers PRN lungs clear, no wheezing or distress - CKD stage III Cr was 1.38 on admission and has risen to 1.66 looking back, baseline Cr is 1.6-1.9 range Cr continues to be at baseline - Hypokalemia: chronic issues, was previously on 60mEq in the AM and then 40mEq at lunch and PM changed to 40mEq BID because K was high normal on admission - Acute on chronic hypoxic respiratory failure resolved with diuresis - Adrenal insufficiency: continue Fludrocortisone and Hydrocortisone - DM: resume basal and bolus dosing - Anemia of chronic disease, h/o GI bleeding Hb stable at 8.4, BP stable - H/o UTI and pneumonia: no current evidence of infection WBC stable, afebrile, no growth on blood culture plan: continue to diurese, d/c to [facility] once euvolemic, PT/OT consulted anticipate ready for discharge in 48 hours
[2017-08-11 19:34] VITALS: PULSE 76; O2SAT 97
[2017-08-11] MEDS: FAMOTIDINE 20 MG TAB PO SCH (20:52)
[2017-08-11] MEDS: METHENAMINE HIPPURATE 1 GM TAB PO SCH (20:52)
[2017-08-11] MEDS: TAMSULOSIN HCL 0.4 MG CAP PO SCH (20:53)
[2017-08-11] MEDS: ATORVASTATIN 20 MG TAB PO SCH (20:53)
[2017-08-11 23:12] VITALS: BP 156/92; PULSE 85; TEMP 36.4; O2SAT 97
[2017-08-12 06:41] LABS: CALCIUM 8.4 mg/dl (8.5-10.1); CREATININE 1.47 mg/dl (0.60-1.40); POTASSIUM 4.4 mmol/L (3.5-5.1)
[2017-08-12 06:56] LABS: BASO % 0.2 %; BASO ABS # 0.01 K/uL (0-0.2); EOS ABS # 0.05 K/uL (0-0.5); HEMATOCRIT 33.1 % (42-52); IG# 0.02 K/uL (0.00-0.02); LYMPH % 11.6 %; LYMPH ABS # 0.59 K/uL (1.2-3.4); MEAN CELL VOLUME 81.5 fL (80-100); MEAN CORPUSCULAR HEMOGLOBIN 22.2 pg (25-34); MEAN CORPUSCULAR HGB CONC 27.2 g/dl (32-36); MONO ABS # 0.56 K/uL (0.11-0.59); NEUT % 75.8 %; NEUT ABS # 3.86 K/uL (1.4-6.5); NUCLEATED RED BLOOD CELL ABS 0.04 K/uL (0-0); PLATELET COUNT 148 K/uL (130-400); RED CELL DISTRIBUTION WIDTH CV 20.7 % (11.5-14.5); RED CELL DISTRIBUTION WIDTH SD 61.2 fL (36.4-46.3); WHITE BLOOD COUNT 5.09 K/uL (4.8-10.8)
[2017-08-12 07:37] VITALS: BP 159/81; PULSE 61; TEMP 36.5; O2SAT 98
[2017-08-12] MEDS: ASPIRIN 81 MG CHEW PO SCH (07:52)
[2017-08-12] MEDS: DUTASTERIDE 0.5 MG PO SCH (07:52)
[2017-08-12] MEDS: OXYCODONE HCL 15 MG TABCR (OXYCONTIN) PO SCH ×2 (07:52→20:12)
[2017-08-12] MEDS: GABAPENTIN 100 MG CAP PO SCH ×3 (07:53→20:14)
[2017-08-12] MEDS: FLUTICASONE/SALMETEROL 250/50 (ADVAIR) 14 PUFF/1 INHALER INH SCH ×2 (07:53→20:19)
[2017-08-12] MEDS: MAGNESIUM OXIDE 400 MG TAB PO SCH ×2 (07:53→20:14)
[2017-08-12] MEDS: GUAIFENESIN 600 MG TABCR PO SCH ×2 (07:54→20:15)
[2017-08-12] MEDS: POTASSIUM CHLORIDE 20 MEQ TABCR PO SCH ×2 (07:54→20:17)
[2017-08-12] MEDS: GABAPENTIN 800 MG TAB PO SCH ×3 (07:55→20:14)
[2017-08-12] MEDS: DOCUSATE SODIUM 100 MG CAP PO SCH ×2 (07:55→20:16)
[2017-08-12] MEDS: CYANOCOBALAMIN 500 MCG TAB (VIT B-12) PO SCH (07:55)
[2017-08-12] MEDS: DULOXETINE HCL 60 MG CAP PO SCH (07:56)
[2017-08-12] MEDS: FUROSEMIDE 40 MG TAB PO SCH (07:57)
[2017-08-12] MEDS: PANTOprazole SOD 40 MG TAB PO SCH (07:57)
[2017-08-12] MEDS: LIDODERM (LIDOCAINE) PATCH 5% TD SCH (07:58)
[2017-08-12] MEDS: SYSTANE~ORDER AWAITING ACTION SCH ×3 (07:59→16:00)
[2017-08-12] MEDS: HYDROCORTISONE 10 MG TAB PO SCH ×2 (07:59→20:13)
[2017-08-12] MEDS: BISACODYL 5 MG TABEC PO SCH ×2 (08:58→20:12)
[2017-08-12] MEDS: FLUDROCORTISONE ACETATE 0.1 MG TAB PO SCH ×2 (08:58→20:15)
[2017-08-12] MEDS: INSULIN ASPART 100 UNITS/ML 3 ML PEN SC SCH ×4 (09:08→20:25)
--- NOTE | 2017-08-12 10:09 | Progress Note ---
Subjective Date of Service: Aug 12, 2017. Subjective Pt evaluation today including: conversation w/ patient, physical exam, chart review, lab review, review of studies, review of inpatient medication list Voiding: gomez catheter in place continue feeling better, was chronic O2 dependent, 2-3 m/m at home, currently NC O2 at 4 L per min, report has good urine output, weight lost about 14 pounds , which is consistent with negative urine output Has been up and walk with walker, Denies other complaint Problem List Medical Problems: (1) Acute on chronic renal failure Status: Acute (2) Altered mental status Status: Acute (3) CHF (congestive heart failure) Status: Acute (4) Coagulopathy Status: Acute (5) Confusion Status: Acute (6) Confusion Status: Acute (7) Fever Status: Acute (8) Fever Status: Acute (9) Forearm laceration Status: Acute (10) GI bleed Status: Acute (11) Hypoglycemia Status: Acute (12) Hypoglycemia Status: Acute (13) Hypoxia Status: Acute (14) Hypoxia Status: Acute (15) Influenza A Status: Acute (16) Lactic acidosis Status: Acute (17) Malfunction of Gomez catheter Status: Acute (18) Reactive airway disease Status: Acute (19) Respiratory distress Status: Acute (20) UTI (urinary tract infection) Status: Acute Review of Systems Constitutional: + weight loss, No fever, No chills, No sweats, No weakness, No fatigue, No problem reported Eyes: No worsening of vision, No eye pain, No redness, No discharge, No diplopia ENT: No hearing loss, No unusual epistaxis, No nasal symptoms, No sore throat, No tinnitus, No dental problems, No trouble swallowing Respiratory: + wheezing, + shortness of breath, + dyspnea on exertion, No cough , No sputum, No dyspnea at rest, No hemoptysis Cardiac: + edema (is better), No chest pain, No orthopnea, No PND, No claudication, No palpitations Abdomen: No pain, No nausea, No vomiting, No diarrhea, No constipation Musculoskeletal: No joint pain, No muscle pain, No swelling, No calf pain Male : No dysuria, No urinary frequency, No incontinence, No nocturia more than once/night, No slowing stream, No hematuria Neurologic: No memory loss, No paralysis, No weakness, No numbness/tingling, No vertigo, No balance problems Psychiatric: No depression symptoms, No anhedonism, No anxiety, No insomnia, No substance abuse Heme: No abnormal bleeding/bruising, No clotting problems, No swollen lymph nodes, No night sweats Endo: No fatigue, No excessive thirst, No excessive urination Skin: No rash, No itch, No new/changing skin lesions, No color change, No bleeding Objective Vital Signs Date Time Temp Pulse Resp B/P (MAP) Pulse Ox O2 Delivery O2 Flow Rate FiO2 08/12/17 07:37 36.5 61 20 159/81 (107) 98 Nasal Cannula 2.0 08/12/17 00:00 Nasal Cannula 3.0 08/11/17 23:12 36.4 85 22 156/92 (113) 97 Nasal Cannula 3.0 08/11/17 21:00 Nasal Cannula 3.0 08/11/17 19:34 76 18 97 Nasal Cannula 2.0 08/11/17 16:00 Nasal Cannula 3.0 08/11/17 14:40 36.9 66 18 128/73 (91) 94 2.0 Physical Exam General Appearance: WD/WN, no apparent distress, + pertinent finding (pleasant comfortable) Eyes: normal inspection, PERRL, EOMI, sclerae normal ENT: normal ENT inspection, hearing grossly normal, pharynx normal Neck: supple, no adenopathy, thyroid normal, no JVD, no carotid bruits, trachea midline Respiratory/Chest: chest non-tender, lungs clear, normal breath sounds, no respiratory distress, no accessory muscle use, + decreased breath sounds, + wheezing (sporetic ) Cardiovascular: regular rate, rhythm, no gallop, no JVD, no murmur, + pertinent finding (trace) Abdomen: normal bowel sounds, non tender, soft, no organomegaly, no pulsatile mass Extremities: normal range of motion, non-tender, normal inspection, no pedal edema, no calf tenderness, normal capillary refill, pelvis stable 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, no motor/sensory deficits, alert, normal mood/affect, oriented x 3 Skin: normal color, warm/dry, no rash Lymphatic: no adenopathy Laboratory Results Last 24 Hours Test 08/11/17 11:47 08/11/17 17:06 08/11/17 20:16 08/12/17 05:39 Bedside Glucose 203 mg/dl 248 mg/dl 207 mg/dl White Blood Count 5.09 K/uL Red Blood Count 4.06 M/uL Hemoglobin 9.0 g/dL Hematocrit 33.1 % Mean Corpuscular Volume 81.5 fL Mean Corpuscular Hemoglobin 22.2 pg Mean Corpuscular Hemoglobin Concent 27.2 g/dl Platelet Count 148 K/uL Neutrophils (%) (Auto) 75.8 % Lymphocytes (%) (Auto) 11.6 % Monocytes (%) (Auto) 11.0 % Eosinophils (%) (Auto) 1.0 % Basophils (%) (Auto) 0.2 % Neutrophils # (Auto) 3.86 K/uL Lymphocytes # (Auto) 0.59 K/uL Monocytes # (Auto) 0.56 K/uL Eosinophils # (Auto) 0.05 K/uL Basophils # (Auto) 0.01 K/uL RDW Standard Deviation 61.2 fL RDW Coefficient of Variation 20.7 % Immature Granulocyte % (Auto) 0.4 % Immature Granulocyte # (Auto) 0.02 K/uL Nucleated RBC Absolute Count (auto) 0.04 K/uL Nucleated Red Blood Cells % 0.8 % Large Platelets 2+ Polychromasia 1+ Ovalocytes 1+ Acanthocytes 1+ Sodium Level 142 mmol/L Potassium Level 4.4 mmol/L Chloride Level 107 mmol/L Carbon Dioxide Level 30 mmol/L Anion Gap 5.0 mmol/L Blood Urea Nitrogen 24 mg/dl Creatinine 1.47 mg/dl Est Creatinine Clear Calc Drug Dose 45.3 ml/min Estimated GFR () 49.0 Estimated GFR (Non- 42.3 BUN/Creatinine Ratio 16.4 Random Glucose 203 mg/dl Calcium Level 8.4 mg/dl Magnesium Level 2.6 mg/dl Test 08/12/17 07:57 Bedside Glucose 187 mg/dl Assessment and Plan 86 y/o M admitted on 08/08/2017 due to altered mentation, labored breathing and hypoxia. was also reported to be falling repeatedly over the past few days prior to admission. was hypoglycemic on arrival to the ER. Metabolic encephalopathy with altered mental status prior to admission in the setting of hypoxia, Likely secondary to acute on chronic systolic heart failure and diastolic heart failure, and acute on chronic with COPD exacerbation acute on chronic systolic heart failure and diastolic heart failure, stable and improving, has good diuretic around 14 pounds weight lost and significant negative urine output 8-10 L Continue tolerate diuretic well , continue Lasix 40mg PO daily (was taking 20mg PO daily prior to admission), fluid restrict to 1500cc/day, Possible COPD exacerbation, initially thought to have exacerbation, Possible contributor to the respirator failure upon admission, he required higher level of oxygen upon admission , still have wheezing stopped Solu Medrol on 08/09, was nebulizers PRN, resume nebulizer scheduled, continue Advair he was taking at home CKD stage III, in baseline Acute on chronic hypoxic respiratory failure, secondary to combined situations like I mentioned above with CHF exacerbation and acute on chronic COPD exacerbation Adrenal insufficiency: continue Fludrocortisone and Hydrocortisone DM: resume basal and bolus dosing Anemia of chronic disease, h/o GI bleeding, Hb stable at 8.4, BP stable Resides in a nursing facility. Recent a frequent admission to the hospital 4 x this yr for pneumonia due to aspiration and most recently due to a GI bleed and then a UTI. continue to diurese, d/c to [facility] soon, PT/OT consulted, possible discharge soon GI and DVT prophylaxis Continued [facility] stay due to: home environment unsafe for pt Discharge planning: long term facility
[2017-08-12] MEDS: ALBUT/IPRATROP 3MG/0.5MG NEB 3 ML VIAL INH SCH ×3 (12:27→19:49)
[2017-08-12 12:29] VITALS: PULSE 65; O2SAT 97
[2017-08-12 15:10] VITALS: PULSE 68; O2SAT 97
[2017-08-12 16:07] VITALS: BP 139/72; PULSE 73; TEMP 36.3; O2SAT 96
[2017-08-12 19:49] VITALS: PULSE 68; O2SAT 95
[2017-08-12] MEDS: TAMSULOSIN HCL 0.4 MG CAP PO SCH (20:15)
[2017-08-12] MEDS: METHENAMINE HIPPURATE 1 GM TAB PO SCH (20:16)
[2017-08-12] MEDS: ATORVASTATIN 20 MG TAB PO SCH (20:18)
[2017-08-12] MEDS: FAMOTIDINE 20 MG TAB PO SCH (20:18)
[2017-08-12] MEDS ORDERED: LORAZEPAM INJ 0.5 MG in SYRINGE 0.75 ML IV PRN (22:45)
[2017-08-12 22:57] VITALS: BP 121/74; PULSE 102; TEMP 36.6; O2SAT 93
[2017-08-13] VITALS (9 sets, daily range): BP systolic 112–119; BP diastolic 69–71; PULSE 62–83; TEMP 36.5–37.1; O2SAT 93–97
[2017-08-13] MEDS: ALBUT/IPRATROP 3MG/0.5MG NEB 3 ML VIAL INH SCH ×4 (02:08→19:44)
[2017-08-13 06:50] LABS: BASO % 0.2 %; BASO ABS # 0.01 K/uL (0-0.2); EOS % 1.9 %; EOS ABS # 0.09 K/uL (0-0.5); HEMATOCRIT 32.7 % (42-52); HEMOGLOBIN 8.8 g/dL (14.0-18.0); IG# 0.03 K/uL (0.00-0.02); LYMPH % 13.9 %; LYMPH ABS # 0.65 K/uL (1.2-3.4); MEAN CELL VOLUME 81.3 fL (80-100); MEAN CORPUSCULAR HEMOGLOBIN 21.9 pg (25-34); MEAN CORPUSCULAR HGB CONC 26.9 g/dl (32-36); MEAN PLATELET VOLUME 9.7 fL (7.4-10.4); MONO % 13.7 %; MONO ABS # 0.64 K/uL (0.11-0.59); NEUT % 69.7 %; NEUT ABS # 3.25 K/uL (1.4-6.5); NUCLEATED RED BLOOD CELL ABS 0.03 K/uL (0-0); PLATELET COUNT 156 K/uL (130-400); RED CELL DISTRIBUTION WIDTH CV 20.5 % (11.5-14.5); RED CELL DISTRIBUTION WIDTH SD 61.1 fL (36.4-46.3); WHITE BLOOD COUNT 4.67 K/uL (4.8-10.8)
[2017-08-13 07:10] LABS: CALCIUM 8.3 mg/dl (8.5-10.1); CREATININE 1.39 mg/dl (0.60-1.40); POTASSIUM 4.4 mmol/L (3.5-5.1)
[2017-08-13] MEDS: SYSTANE~ORDER AWAITING ACTION SCH ×3 (07:36→23:42)
[2017-08-13] MEDS: DUTASTERIDE 0.5 MG PO SCH (07:38)
[2017-08-13] MEDS: FLUTICASONE/SALMETEROL 250/50 (ADVAIR) 14 PUFF/1 INHALER INH SCH ×2 (07:55→20:06)
[2017-08-13] MEDS: LIDODERM (LIDOCAINE) PATCH 5% TD SCH (07:55)
[2017-08-13] MEDS: ASPIRIN 81 MG CHEW PO SCH (07:55)
[2017-08-13] MEDS: OXYCODONE HCL 15 MG TABCR (OXYCONTIN) PO SCH ×2 (07:56→20:06)
[2017-08-13] MEDS: BISACODYL 5 MG TABEC PO SCH ×2 (07:56→19:42)
[2017-08-13] MEDS: GUAIFENESIN 600 MG TABCR PO SCH ×2 (07:56→20:06)
[2017-08-13] MEDS: CYANOCOBALAMIN 500 MCG TAB (VIT B-12) PO SCH (07:56)
[2017-08-13] MEDS: PANTOprazole SOD 40 MG TAB PO SCH (07:56)
[2017-08-13] MEDS: GABAPENTIN 800 MG TAB PO SCH ×3 (07:56→19:43)
[2017-08-13] MEDS: GABAPENTIN 100 MG CAP PO SCH ×3 (07:57→19:46)
[2017-08-13] MEDS: FUROSEMIDE 40 MG TAB PO SCH (07:57)
[2017-08-13] MEDS: DULOXETINE HCL 60 MG CAP PO SCH (07:57)
[2017-08-13] MEDS: POTASSIUM CHLORIDE 20 MEQ TABCR PO SCH ×2 (07:57→19:43)
[2017-08-13] MEDS: FLUDROCORTISONE ACETATE 0.1 MG TAB PO SCH ×2 (07:57→19:42)
[2017-08-13] MEDS: MAGNESIUM OXIDE 400 MG TAB PO SCH ×2 (07:57→19:44)
[2017-08-13] MEDS: HYDROCORTISONE 10 MG TAB PO SCH ×2 (07:58→19:44)
[2017-08-13] MEDS: DOCUSATE SODIUM 100 MG CAP PO SCH ×2 (07:58→19:45)
[2017-08-13] MEDS: INSULIN ASPART 100 UNITS/ML 3 ML PEN SC SCH ×4 (08:05→20:42)
--- NOTE | 2017-08-13 11:46 | Progress Note ---
Subjective Date of Service: Aug 13, 2017. Subjective Pt evaluation today including: conversation w/ patient, physical exam, chart review, lab review, review of studies, conversation w/ library sales consultant, review of inpatient medication list Voiding: gomez catheter in place Continue feeling good, stretching in bed, has good diuretic continually, still on oxygen, sob is better Problem List Medical Problems: (1) Acute on chronic renal failure Status: Acute (2) Altered mental status Status: Acute (3) CHF (congestive heart failure) Status: Acute (4) Coagulopathy Status: Acute (5) Confusion Status: Acute (6) Confusion Status: Acute (7) Fever Status: Acute (8) Fever Status: Acute (9) Forearm laceration Status: Acute (10) GI bleed Status: Acute (11) Hypoglycemia Status: Acute (12) Hypoglycemia Status: Acute (13) Hypoxia Status: Acute (14) Hypoxia Status: Acute (15) Influenza A Status: Acute (16) Lactic acidosis Status: Acute (17) Malfunction of Gomez catheter Status: Acute (18) Reactive airway disease Status: Acute (19) Respiratory distress Status: Acute (20) UTI (urinary tract infection) Status: Acute Review of Systems Constitutional: + weakness, + fatigue, No fever, No chills, No sweats, No weight loss, No problem reported Eyes: No worsening of vision, No eye pain, No redness, No discharge, No diplopia ENT: No hearing loss, No unusual epistaxis, No nasal symptoms, No sore throat, No tinnitus, No dental problems, No trouble swallowing Respiratory: No cough, No sputum, No wheezing, No shortness of breath, No dyspnea on exertion, No dyspnea at rest, No hemoptysis Cardiac: No chest pain, No orthopnea, No PND, No edema, No claudication, No palpitations Abdomen: No pain, No nausea, No vomiting, No diarrhea, No constipation Musculoskeletal: No joint pain, No muscle pain, No swelling, No calf pain Male : No dysuria, No urinary frequency, No incontinence, No nocturia more than once/night, No slowing stream, No hematuria Neurologic: No memory loss, No paralysis, No weakness, No numbness/tingling, No vertigo, No balance problems Psychiatric: No depression symptoms, No anhedonism, No anxiety, No insomnia, No substance abuse Heme: No abnormal bleeding/bruising, No clotting problems, No swollen lymph nodes, No night sweats Endo: + fatigue, No excessive thirst, No excessive urination Skin: No rash, No itch, No new/changing skin lesions, No color change, No bleeding Objective Vital Signs Date Time Temp Pulse Resp B/P (MAP) Pulse Ox O2 Delivery O2 Flow Rate FiO2 08/13/17 08:15 Nasal Cannula 2.0 08/13/17 07:26 64 16 96 Nasal Cannula 2.0 08/13/17 07:08 37.1 83 16 119/70 (86) 94 Nasal Cannula 2.0 08/13/17 02:08 66 16 93 Nasal Cannula 2.0 08/13/17 00:45 95 Room Air 08/12/17 22:57 36.6 102 18 121/74 (90) 93 Room Air 08/12/17 19:49 68 16 95 Nasal Cannula 2.0 08/12/17 16:07 36.3 73 20 139/72 (94) 96 Nasal Cannula 2.0 08/12/17 15:25 Nasal Cannula 2.0 08/12/17 15:10 68 16 97 Nasal Cannula 2.0 08/12/17 12:29 65 18 97 Nasal Cannula 2.0 Physical Exam General Appearance: WD/WN, no apparent distress Eyes: normal inspection, PERRL, EOMI, sclerae normal ENT: normal ENT inspection, hearing grossly normal, pharynx normal Neck: supple, no adenopathy, thyroid normal, no JVD, no carotid bruits, trachea midline Respiratory/Chest: chest non-tender, normal breath sounds, no respiratory distress, no accessory muscle use, + decreased breath sounds, + crackles ( bilateral lower lungs), + pertinent finding (on nasal cannula) Cardiovascular: regular rate, rhythm, no edema, no gallop, no JVD, no murmur Abdomen: normal bowel sounds, non tender, soft, no organomegaly, no pulsatile mass Extremities: normal range of motion, non-tender, normal inspection, no pedal edema, no calf tenderness, normal capillary refill, pelvis stable 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: production associate II-XII nml as tested, no motor/sensory deficits, alert, normal mood/affect, oriented x 3 Skin: normal color, warm/dry, no rash Lymphatic: no adenopathy Laboratory Results Last 24 Hours Test 08/12/17 16:34 08/12/17 19:56 08/13/17 05:58 08/13/17 07:48 Bedside Glucose 204 mg/dl 276 mg/dl 180 mg/dl White Blood Count 4.67 K/uL Red Blood Count 4.02 M/uL Hemoglobin 8.8 g/dL Hematocrit 32.7 % Mean Corpuscular Volume 81.3 fL Mean Corpuscular Hemoglobin 21.9 pg Mean Corpuscular Hemoglobin Concent 26.9 g/dl Platelet Count 156 K/uL Mean Platelet Volume 9.7 fL Neutrophils (%) (Auto) 69.7 % Lymphocytes (%) (Auto) 13.9 % Monocytes (%) (Auto) 13.7 % Eosinophils (%) (Auto) 1.9 % Basophils (%) (Auto) 0.2 % Neutrophils # (Auto) 3.25 K/uL Lymphocytes # (Auto) 0.65 K/uL Monocytes # (Auto) 0.64 K/uL Eosinophils # (Auto) 0.09 K/uL Basophils # (Auto) 0.01 K/uL RDW Standard Deviation 61.1 fL RDW Coefficient of Variation 20.5 % Immature Granulocyte % (Auto) 0.6 % Immature Granulocyte # (Auto) 0.03 K/uL Nucleated RBC Absolute Count (auto) 0.03 K/uL Nucleated Red Blood Cells % 0.7 % Hypochromasia PRESENT Anisocytosis PRESENT Sodium Level 144 mmol/L Potassium Level 4.4 mmol/L Chloride Level 109 mmol/L Carbon Dioxide Level 31 mmol/L Anion Gap 4.0 mmol/L Blood Urea Nitrogen 21 mg/dl Creatinine 1.39 mg/dl Est Creatinine Clear Calc Drug Dose 47.7 ml/min Estimated GFR () 52.4 Estimated GFR (Non- 45.2 BUN/Creatinine Ratio 15.3 Random Glucose 185 mg/dl Calcium Level 8.3 mg/dl Magnesium Level 2.6 mg/dl Assessment and Plan 86 y/o M admitted on 08/08/2017 due to altered mentation, labored breathing and hypoxia. was also reported to be falling repeatedly over the past few days prior to admission. was hypoglycemic on arrival to the ER. Metabolic encephalopathy with altered mental status prior to admission in the setting of hypoxia, Likely secondary to acute on chronic systolic heart failure and diastolic heart failure, and acute on chronic with COPD exacerbation Totally resolved acute on chronic systolic heart failure and diastolic heart failure, stable and improving, has good diuretic around 14 pounds weight lost and significant negative urine output 8-10 L, continue have good diuretic Continue tolerate diuretic well , renal function continued to improve , continue Lasix 40mg PO daily because of kidney tolerated well, (was taking 20mg PO daily prior to admission), fluid restrict to 1500cc/day, Possible COPD exacerbation, initially thought to have exacerbation, Possible contributor to the respirator failure upon admission, he required higher level of oxygen upon admission , wheezing is better today stopped Solu Medrol on 08/09, was nebulizers PRN, resume nebulizer scheduled, continue Advair he was taking at home CKD stage III, in baseline, continue improving after diuretic which indicates CKD could be because of kidney congestion Acute on chronic hypoxic respiratory failure, secondary to combined situations like I mentioned above with CHF exacerbation and acute on chronic COPD exacerbation Adrenal insufficiency: continue Fludrocortisone and Hydrocortisone DM: Stable continue current care Anemia of chronic disease, h/o GI bleeding, Hb stable at 8.8 and 9, BP stable Resides in a nursing facility. Recent a frequent admission to the hospital 4 x this yr for pneumonia due to aspiration and most recently due to a GI bleed and then a UTI. continue to diurese, d/c to [facility] tomorrow GI and DVT prophylaxis Continued [facility] stay due to: home environment unsafe for pt Discharge planning: custodial facility
[2017-08-13] MEDS: POLYETHYLENE (MIRALAX) 17 GM PACK PO PRN (13:42)
[2017-08-13] MEDS: ATORVASTATIN 20 MG TAB PO SCH (20:06)
[2017-08-13] MEDS: TAMSULOSIN HCL 0.4 MG CAP PO SCH (20:06)
[2017-08-13] MEDS: FAMOTIDINE 20 MG TAB PO SCH (20:06)
[2017-08-14 01:23] VITALS: PULSE 69; O2SAT 89
[2017-08-14] MEDS: ALBUT/IPRATROP 3MG/0.5MG NEB 3 ML VIAL INH SCH ×3 (01:23→14:07)
[2017-08-14 07:10] VITALS: PULSE 64; O2SAT 91
[2017-08-14 08:14] VITALS: BP 121/68; PULSE 66; TEMP 36.5; O2SAT 90
[2017-08-14] MEDS: GABAPENTIN 100 MG CAP PO SCH ×2 (08:45→13:34)
[2017-08-14] MEDS: DOCUSATE SODIUM 100 MG CAP PO SCH (08:46)
[2017-08-14] MEDS: DULOXETINE HCL 60 MG CAP PO SCH (08:46)
[2017-08-14] MEDS: MAGNESIUM OXIDE 400 MG TAB PO SCH (08:46)
[2017-08-14] MEDS: GUAIFENESIN 600 MG TABCR PO SCH (08:46)
[2017-08-14] MEDS: FUROSEMIDE 40 MG TAB PO SCH (08:46)
[2017-08-14] MEDS: CYANOCOBALAMIN 500 MCG TAB (VIT B-12) PO SCH (08:46)
[2017-08-14] MEDS: GABAPENTIN 800 MG TAB PO SCH ×2 (08:47→13:34)
[2017-08-14] MEDS: HYDROCORTISONE 10 MG TAB PO SCH (08:47)
[2017-08-14] MEDS: POTASSIUM CHLORIDE 20 MEQ TABCR PO SCH (08:47)
[2017-08-14] MEDS: SYSTANE~ORDER AWAITING ACTION SCH (08:48)
[2017-08-14] MEDS: FLUTICASONE/SALMETEROL 250/50 (ADVAIR) 14 PUFF/1 INHALER INH SCH (08:48)
[2017-08-14] MEDS: FLUDROCORTISONE ACETATE 0.1 MG TAB PO SCH (08:48)
[2017-08-14] MEDS: PANTOprazole SOD 40 MG TAB PO SCH (08:48)
[2017-08-14] MEDS: DUTASTERIDE 0.5 MG PO SCH (08:50)
[2017-08-14] MEDS: LIDODERM (LIDOCAINE) PATCH 5% TD SCH (08:51)
[2017-08-14] MEDS: BISACODYL 5 MG TABEC PO SCH (08:59)
[2017-08-14] MEDS: OXYCODONE HCL 15 MG TABCR (OXYCONTIN) PO SCH (08:59)
[2017-08-14] MEDS: ASPIRIN 81 MG CHEW PO SCH (08:59)
[2017-08-14] MEDS: POLYETHYLENE (MIRALAX) 17 GM PACK PO PRN (09:00)
[2017-08-14] MEDS: INSULIN ASPART 100 UNITS/ML 3 ML PEN SC SCH ×2 (09:03→12:25)
[2017-08-14 09:10] LABS: CALCIUM 8.5 mg/dl (8.5-10.1); CREATININE 1.43 mg/dl (0.60-1.40); POTASSIUM 3.8 mmol/L (3.5-5.1)
[2017-08-14] MEDS ORDERED: OXYC15TA89 PO (13:49)
[2017-08-14] MEDS ORDERED: LSX40 PO (13:49)
[2017-08-14] MEDS ORDERED: HYD10 PO (13:49)
[2017-08-14 13:52] VITALS: BP 121/68; PULSE 66; TEMP 36.5; O2SAT 90
[2017-08-14 14:08] VITALS: PULSE 70; O2SAT 94
--- NOTE | 2017-08-14 15:21 | Discharge Instructions ---
Discharge Instructions Date of Service Aug 14, 2017. Admission Reason for Admission: Acute Exacerbation Of Chf, Copd Exacerbation Discharge Discharge Diagnosis / Problem: CHF exacerbation Discharge Goals Goal(s): Improve disease control Activity Recommendations Activity Level: Assistance Required . Additional Information Patient informed of condition: Yes Advance Directives: No DNR: No Level of Care: Skilled Communicable Disease: No Prognosis: Stable Oxygen at (LPM): 2l nc prn Ball Catheter: Yes Current Hospital Diet Patient's current hospital diet: AHA Diet (Heart Healthy), Diabetes Type 2 Diet Discharge Diet Recommended Diet: AHA Diet (Heart Healthy), Diabetes Type 2 Diet Fluid Restriction: 1500 ml (6 cups) Procedures Procedures Performed: Chest CT Cervical spine CT Head CT CXR Pending Studies Studies pending at discharge: no Physician Orders On Transfer POLST Discussion: without POLST completion Laboratory Results 08/13/17 05:58 Red Blood Count 4.02, Mean Corpuscular Volume 81.3, Mean Corpuscular Hemoglobin 21.9, Mean Corpuscular Hemoglobin Concent 26.9, Mean Platelet Volume 9.7, Neutrophils (%) (Auto) 69.7, Lymphocytes (%) (Auto) 13.9, Monocytes (%) (Auto) 13.7, Eosinophils (%) (Auto) 1.9, Basophils (%) (Auto) 0.2, Neutrophils # (Auto ) 3.25, Lymphocytes # (Auto) 0.65, Monocytes # (Auto) 0.64, Eosinophils # (Auto ) 0.09, Basophils # (Auto) 0.01 08/14/17 08:27 Test 08/08/17 09:41 08/08/17 10:20 08/08/17 10:32 08/08/17 10:40 Platelet Estimate NORMAL Total Bilirubin 0.4 mg/dl (0.2-1) Direct Bilirubin < 0.1 mg/dl (0-0.2) Aspartate Amino Transf (AST/SGOT) 21 U/L (15-37) Alanine Aminotransferase (ALT/SGPT) 40 U/L (12-78) Alkaline Phosphatase 113 U/L (45-117) Total Creatine Kinase 180 U/L (39-308) Creatine Kinase MB 5.6 ng/ml (0.5-3.6) Creatine Kinase MB Ratio 3.1 (0-3.0) Troponin I 0.044 ng/ml (0-0.045) Pro-B-Type Natriuretic Peptide 3013 pg/ml (0-1800) Total Protein 7.1 gm/dl (6.4-8.2) Albumin 3.3 gm/dl (3.4-5.0) Thyroid Stimulating Hormone (TSH) 1.250 uIu/ml (0.300-4.500) Influenza Type A Antigen Neg for Influ A (NEG) Influenza Type B Antigen Neg for Influ B (NEG) Bedside Lactic Acid Venous 1.24 mmol/L (0.90-1.70) Urine Color YELLOW Urine Appearance CLEAR (CLEAR) Urine pH 8.5 (4.5-7.5) Urine Specific [place] 1.016 (1.000-1.030) Urine Protein NEG (NEG) Urine Glucose (UA) NEG (NEG) Urine Ketones NEG (NEG) Urine Occult Blood NEG (NEG) Urine Nitrite NEG (NEG) Urine Bilirubin NEG (NEG) Urine Urobilinogen NEG (NEG) Urine Leukocyte Esterase NEG (NEG) Urine WBC (Auto) 1-5 /hpf (0-5) Urine RBC (Auto) 0-4 /hpf (0-4) Urine Hyaline Casts (Auto) 0 /lpf (0-5) Urine Epithelial Cells (Auto) 5-10 /lpf (0-5) Urine Bacteria (Auto) NEG (NEG) Test 08/08/17 13:28 08/10/17 05:44 08/11/17 05:47 08/12/17 05:39 Ammonia 15.0 umol/L (11-32) Schistocytes 1+ Basophilic Stippling 1+ Large Platelets 2+ Polychromasia 1+ Ovalocytes 1+ Acanthocytes 1+ Test 08/13/17 05:58 08/14/17 08:27 08/14/17 11:50 White Blood Count 4.67 K/uL (4.8-10.8) Red Blood Count 4.02 M/uL (4.7-6.1) Hemoglobin 8.8 g/dL (14.0-18.0) Hematocrit 32.7 % (42-52) Mean Corpuscular Volume 81.3 fL (80-100) Mean Corpuscular Hemoglobin 21.9 pg (25-34) Mean Corpuscular Hemoglobin Concent 26.9 g/dl (32-36) Platelet Count 156 K/uL (130-400) Mean Platelet Volume 9.7 fL (7.4-10.4) Neutrophils (%) (Auto) 69.7 % Lymphocytes (%) (Auto) 13.9 % Monocytes (%) (Auto) 13.7 % Eosinophils (%) (Auto) 1.9 % Basophils (%) (Auto) 0.2 % Neutrophils # (Auto) 3.25 K/uL (1.4-6.5) Lymphocytes # (Auto) 0.65 K/uL (1.2-3.4) Monocytes # (Auto) 0.64 K/uL (0.11-0.59) Eosinophils # (Auto) 0.09 K/uL (0-0.5) Basophils # (Auto) 0.01 K/uL (0-0.2) RDW Standard Deviation 61.1 fL (36.4-46.3) RDW Coefficient of Variation 20.5 % (11.5-14.5) Immature Granulocyte % (Auto) 0.6 % Immature Granulocyte # (Auto) 0.03 K/uL (0.00-0.02) Nucleated RBC Absolute Count (auto) 0.03 K/uL (0-0) Nucleated Red Blood Cells % 0.7 % Hypochromasia PRESENT Anisocytosis PRESENT Anion Gap 7.0 mmol/L (3-11) Est Creatinine Clear Calc Drug Dose 46.0 ml/min Estimated GFR () 50.7 Estimated GFR (Non- 43.7 BUN/Creatinine Ratio 14.3 (10-20) Calcium Level 8.5 mg/dl (8.5-10.1) Magnesium Level 2.6 mg/dl (1.8-2.4) Bedside Glucose 245 mg/dl (70-99) Date/Time Source Procedure Growth Status 08/08/17 09:41 Blood Blood Culture - Final NO GROWTH Complete Medical Emergencies . Who to Call and When: Medical Emergencies: If at any time you feel your situation is an emergency, please call 911 immediately. . Non-Emergent Contact Non-Emergency issues call your: Primary Care Provider Call Non-Emergent contact if: you have a fever, you have any medication questions . . "Provider Documentation" section prepared by Peggy Auguste. . Core Measure Problem Core Measures: None
--- NOTE | 2017-08-14 15:22 | Discharge Summary ---
Discharge Summary Date of Service Aug 14, 2017. Discharge Summary Admission Date: Aug 08, 2017 at 11:28 Discharge Disposition: shelter facility Principal Diagnosis: CHF exacerbation Problems/Secondary Diagnoses: Metabolic encephalopathy with altered mental status, hypoxia, COPD, CKD III, anemia of chronic disease, adrenal insufficiency, Immunizations: Have You Had Influenza Vaccine: Yes Influenza Vaccine Date: Jun 08, 2013 History of Tetanus Vaccine?: Unknown History of Pneumococcal: Yes History of Hepatitis B Vaccine: Unknown Procedures: (CHEST) THORAX WITHOUT CT DOSE: 798.22 mGycm HISTORY: Pneumonia. Aspiration. eval for aspiration PNM TECHNIQUE: Multiaxial CT images of the chest were performed without contrast. A dose lowering technique was utilized adhering to the principles of ALARA. COMPARISON: 07/18/2017 FINDINGS: Patchy basilar parenchymal infiltrative change combine with scattered parenchymal and pleural-based nodularity has remained stable. There is been interval development of small bilateral pleural effusions with the right slightly larger than the left. The heart remains mildly enlarged. There is calcification of the coronary arterial vasculature. IMPRESSION: 1. Interval development of small bilateral pleural effusions. 2. All remaining components of the study are similar compared to the prior exam. Differential is unchanged compared to the prior study although a component of cardiac decompensation may be present. The above report was generated using voice recognition software. It may contain grammatical, syntax or spelling errors. Electronically signed by: Jaun Kim M.D. 08/08/2017 12:[address] DOSE: HISTORY: fall, neck pain TECHNIQUE: Multiaxial CT images of the cervical spine were performed and reformatted in the sagittal and coronal plane without the use of contrast. A dose lowering technique was utilized adhering to the principles of ALARA. COMPARISON: None. FINDINGS: No fractures. No subluxation. Prevertebral soft tissues and the C1-C2 interval are intact. No pneumothorax. Straightening of the cervical spine. Moderate to severe degenerative disc disease within the mid to lower cervical spine. There are also moderate to severe facet degenerative changes throughout the cervical spine with fusion of multiple upper facets. Emphysema. Linear scarlike density within the left lung apex. Near complete opacification of the left mastoid air cells. Mild motion artifact. IMPRESSION: 1. No fractures within the cervical spine. 2. Emphysema. 3. Degenerative changes as described above. Electronically signed by: Aubrey Kaplan M.D. 08/08/2017 10:[address]AST CT DOSE: 1253.67 mGy.cm HISTORY: falls recently, left eye pain, hematoma TECHNIQUE: Multiaxial CT images of the head were performed without the use of intravenous contrast. Automated exposure control was utilized for this study. A dose lowering technique was utilized adhering to the principles of ALARA. Comparison: Head CT 07/18/2017. Findings: The right mastoid air cells are clear. Near-complete opacification of the left mastoid air cells. Mild mucosal thickening within the left posterior ethmoid air cells and a small retention cyst within the right posterior ethmoid air cells. Nasal bone deformities which are likely old. This is similar to the prior study. The calvarium and skull base are intact. There is no mass, hematoma, midline shift, acute infarct. White matter hypodensity is nonspecific but suggestive of microvascular ischemic change. The ventricles and sulci demonstrate mild age-related involutional changes. Impression: No acute intracranial abnormality. Atrophy and microvascular ischemic changes. Left mastoid effusion. Electronically signed by: Aubrey Kaplan M.D. 08/08/2017 10:26 AM Dictated Date/Time: 08/08/2017 10:17 AM CHEST ONE VIEW PORTABLE HISTORY: Short of breath. COMPARISON: Chest 07/18/2017. FINDINGS: No pneumothorax. The heart remains borderline enlarged. Diffuse interstitial thickening persists. Linear densities within the right midlung zone favor subsegmental atelectasis. Trace bilateral pleural effusions. IMPRESSION: No change in the diffuse interstitial thickening and trace bilateral pleural effusions. Electronically signed by: Aubrey Kaplan M.D. 08/08/2017 10:01 AM Dictated Date/Time: 08/08/2017 9:59 AM Medication Reconciliation New Medications: Furosemide (Furosemide) 40 Mg Tab 40 MG PO QAM for 30 Days, #30 TAB Hydrocortisone (Cortef) 10 Mg Tab 20 MG PO BID for 14 Days, #28 TAB Continued Medications: Acetaminophen (Tylenol) 500 Mg Tab 1000 MG PO Q12 TAKE AT 0800 & 2000 Aspirin (Aspirin Chewable) 81 Mg Chew 81 MG PO QAM Atenolol (Tenormin) 25 Mg Tab 12.5 MG PO QAM Atorvastatin (Lipitor) 20 Mg Tab 20 MG PO HS Bisacodyl (Bisacodyl) 5 Mg Tab 5 MG PO BID Cyanocobalamin (B-12) 1,000 Mcg Tab 1000 MCG PO QAM Docusate Sodium (Colace) 100 Mg Cap 100 MG PO BID Duloxetine Hcl (Cymbalta) 60 Mg Cap 60 MG PO QAM Dutasteride (Dutasteride) 0.5 Mg Cap 0.5 MG PO DAILY Famotidine (Famotidine) 20 Mg Tab 20 MG PO HS Fiber Laxative (Fiber Laxative) Ea 1 TAB PO DAILY Fludrocortisone Acetate (Florinef) 0.1 Mg Tab 0.1 MG PO BID Fluticasone Prop/Salmeterol (Advair Diskus 250/50 60 Dose) 1 Ea Aerp 1 PUFF INH BID Fluticasone Propionate (Fluticasone Propionate) 120 Sprays/6000 Mcg Inha 2 SPRAYS HEVER QAM Gabapentin (Gabapentin) 800 Mg Tab 800 MG PO TID Gabapentin (Neurontin) 100 Mg Cap 100 MG PO TID Guaifenesin Ext Rel (Mucinex Ext Rel) 600 Mg Tabcr 1200 MG PO Q12 Insulin Aspart 70/30 (Novolog Mix 70/30) Susp 10 UNITS SQ QPM Insulin Aspart Protamine & Asp (Novolog Mix 70/30) 1 Inj Inj 25 UNITS SQ QAM Insulin Detemir (Levemir) 100 Units/Ml Inj 60 UNITS SQ PM Ipratropium-Albuterol (Combivent Respimat) 1 Aer Aer 1 PUFF INH QID Levalbuterol (Levalbuterol HCl) 0.63 Mg/3 Ml Nebu 1 VIAL NEB BID Lidocaine (Lidocaine) 5 % Pad 1 PATCH TD QAM for BACK PAIN Magnesium Hydroxide (Milk Of Magnesia) 30 Ml Susp 30 ML PO UD PRN for PROTOCOL Magnesium Oxide (Mag-Ox) 400 Mg Tab 400 MG PO BID Methenamine Hippurate (Methenamine Hippurate) 1 Gm Tab 1 GM PO HS Metolazone (Zaroxolyn) 2.5 Mg Tab 2.5 MG PO DAILY PRN for WEIGHT GAIN Multiple Vitamins W/ Minerals (Therems M) 1 Tab Tab 1 TAB PO QAM Nitroglycerin (Nitrostat) 0.4 Mg Tab 0.4 MG UT PRN Omeprazole (Prilosec) 20 Mg Capcr 20 MG PO QAM Oxycodone Hcl (Oxycontin) 15 Mg Tab 15 MG PO Q12 for 5 Days, #10 DOSE (This prescription has been renewed) Polyethylene Glycol 3350 (Miralax) 1 Pow Pow 17 GM PO BID, GM Polyethylene Glycol-Propylene (Systane Ultra) 1 Idania Idania 1 DROPS OPB BID Potassium Chloride (K-Tab) 20 Meq Tab 40 MEQ PO NOON/HS Potassium Ext Rel (Klor-Con) 20 Meq Tabcr 60 MEQ PO QAM Simethicone (Cvs Gas Relief) 80 Mg Chw 1 TAB PO QID PRN for Indigestion Sodium Phosphate/Biphosphate (Fleet Enema) Eleanor 1 EA VA DAILY PRN for PROTOCOL Tamsulosin Hcl (Flomax) 0.4 Mg Cap 0.4 MG PO HS Trolamine Salicylate (Aspercreme) 10 % Lot 0 TOP BID PRN for ARTHRITIS Discontinued Medications: Furosemide (Furosemide) 20 Mg Tab 20 MG PO QAM for 30 Days, #30 TAB Hydrocortisone (Cortef) 20 Mg Tab 40 MG PO BID Discharge Exam Patient sating 98% on 2L when I took pulse ox at bedside this morning ROS Constitutional: no chills, aches, sweats or fever Respiratory: no sob,cough, sputum, or wheezing Cardiac: no chest pain, palpitations, edema, orthopnea or lightheadedness GI: no abdominal pain, nausea, vomiting, diarrhea or constipation : no dysuria or hesitancy Extremities: no joint pain or weakness Skin: no rash All other systems reviewed and negative PE General: no distress Eyes: normal inspection, PERLL Respiratory: chest non tender, clear to auscultation, normal breath sounds, no respiratory distress, no accessory muscle use Cardiac: regular rate and rhythm, no rub or gallop, no murmur, no edema, no jvd GI/: active bowel sounds, no abd pain or tenderness, soft, non distended Extremities: normal range of motion, normal strength, non tender Neuro/Psych: alert and oriented x 3, normal mood and affect Skin: normal color, dry Hospital Course 86 y/o M w/Hx COPD, combined CHF, CAD, CKD 3-4, DM, chronic aspiration, adrenal insufficiency, recurrent PNM, recurrent UTIs, history of DVT. Resides in a nursing facility. Pt has been admitted to the hospital 4 x this yr for pneumonia due to aspiration and most recently due to a GI bleed and then a UTI. He arrived from the long term largely due to altered mentation, labored breathing and hypoxia. He was also reported to be falling repeatedly over the past few days. The pt was hypoglycemic on arrival to the ER. Metabolic encephalopathy with altered mental status prior to admission in the setting of hypoxia, - Likely secondary to acute on chronic systolic heart failure and diastolic heart failure, and acute on chronic with COPD exacerbation - Totally resolved Acute on chronic systolic heart failure and diastolic heart failure, stable and improving, - has good diuresis around 14 pounds weight lost and significant negative urine output 8-10 L - Continues to tolerate diuretic well , renal function continued to improve - continue Lasix 40mg PO daily (was taking 20mg PO daily prior to admission), fluid restrict to 1500cc/day, Possible COPD exacerbation - Possible contributor to the respiratory failure upon admission, he required higher level of oxygen upon admission , wheezing is better today - stopped Solu Medrol on 08/09, continued nebulizers PRN - inhalers for home CKD stage III, in baseline, continued improving after diuretic, Creat 1.43 today Continue chronic gomez catheter Adrenal insufficiency: continue Fludrocortisone and Hydrocortisone DM: Stable continue current care Anemia of chronic disease, h/o GI bleeding, Hb stable while in patient Total Time Spent: Greater than 30 minutes This includes examination of the patient, discharge planning, medication reconciliation, and communication with other providers. Discharge Instructions Please refer to the electronic Patient Visit Report (Discharge Instructions) for additional information. Additional Copies To [facility]
== END 2017-08-14 15:02 | DRG 291 ==
LOC: EDBD 08:09 → C.EDB 08:10 → C.2E 11:28 → UNDOADMIN 11:28 → EDBEDREQ 11:40 → ENRESERV 13:30 → C.4E 08-10 10:56
PROVIDERS: ADMIT Internal Medicine; ATTEND Hospitalist
DX: I13.0 Hypertensive heart and chronic kidney disease with heart failure and stage 1 through stage 4 chronic kidney disease, or unspecified chronic kidney disease (principal); I50.43 Acute on chronic combined systolic (congestive) and diastolic (congestive) heart failure; G93.41 Metabolic encephalopathy; E27.40 Unspecified adrenocortical insufficiency; J44.1 Chronic obstructive pulmonary disease with (acute) exacerbation; J96.21 Acute and chronic respiratory failure with hypoxia; N18.3 Chronic kidney disease, stage 3 (moderate); I25.10 Atherosclerotic heart disease of native coronary artery without angina pectoris; Z86.73 Personal history of transient ischemic attack (TIA), and cerebral infarction without residual deficits; I73.9 Peripheral vascular disease, unspecified; E87.6 Hypokalemia; Z79.4 Long term (current) use of insulin; E11.649 Type 2 diabetes mellitus with hypoglycemia without coma; E11.21 Type 2 diabetes mellitus with diabetic nephropathy; Z87.440 Personal history of urinary (tract) infections; Z86.718 Personal history of other venous thrombosis and embolism; I25.2 Old myocardial infarction; Z87.891 Personal history of nicotine dependence; D64.9 Anemia, unspecified; R79.1 Abnormal coagulation profile

== ENCOUNTER 2017-08-16 10:24 | Observation (INO) | payer OTHER ==
[~2017-08-16] VITALS: Ht 185.4 cm; Wt 99.1 kg
[~2017-08-16 10:24] MED LIST changes: +HYD10 PO; -HYDR20TA3 PO; -INSDGI SQ; -LSX20 PO; +LSX40 PO; +METO2.5T PO; +MOML PO; +NTRGSL/4 UT; +SIME80CH40 PO; +SODIENE PR; +TROL10LO TOP
[2017-08-16] MEDS ORDERED: ALBUT/IPRATROP 3MG/0.5MG NEB 3 ML VIAL INH STA (10:36)
[2017-08-16] MEDS ORDERED: HYDROCORTISONE SOD SUCCINATE 100 MG/2 ML VIAL IV STA (10:39)
--- NOTE | 2017-08-16 10:57 | DIAGNOSTIC IMAGING REPORT ---
CHEST ONE VIEW PORTABLE CLINICAL HISTORY: Atypical chest pain COMPARISON STUDY: 08/08/2017 FINDINGS: The heart is mildly enlarged. There is no focal pulmonary consolidation. There is diffuse an essential thickening similar to the prior study. There is no acute rectal consolidation. There is a suspected trace right pleural effusion.[ IMPRESSION: No significant change from the prior study. Persistent chronic interstitial thickening. Electronically signed by: Sridhar Chowdary M.D. 08/16/2017 10:56 AM Dictated Date/Time: 08/16/2017 10:55 AM
[2017-08-16] MEDS ORDERED: LDDP5 TOP (11:08)
[2017-08-16 11:54] LABS: HEMATOCRIT 38.3 % (42-52); HEMOGLOBIN 10.4 g/dL (14.0-18.0); MEAN CELL VOLUME 81.3 fL (80-100); MEAN CORPUSCULAR HEMOGLOBIN 22.1 pg (25-34); MEAN CORPUSCULAR HGB CONC 27.2 g/dl (32-36); PLATELET COUNT 208 K/uL (130-400); RED CELL DISTRIBUTION WIDTH CV 21.1 % (11.5-14.5); RED CELL DISTRIBUTION WIDTH SD 62.6 fL (36.4-46.3); WHITE BLOOD COUNT 7.43 K/uL (4.8-10.8)
[2017-08-16 12:14] LABS: BASO % 0.1 %; BASO ABS # 0.01 K/uL (0-0.2); EOS % 3.1 %; EOS ABS # 0.23 K/uL (0-0.5); IG# 0.03 K/uL (0.00-0.02); LYMPH % 11.6 %; LYMPH ABS # 0.86 K/uL (1.2-3.4); MONO % 8.2 %; MONO ABS # 0.61 K/uL (0.11-0.59); NEUT % 76.6 %; NEUT ABS # 5.69 K/uL (1.4-6.5)
[2017-08-16 12:17] LABS: ALBUMIN 3.4 gm/dl (3.4-5.0); ALKALINE PHOSPHATASE 99 U/L (45-117); ALT/SGPT 24 U/L (12-78); AST/SGOT 20 U/L (15-37); BLOOD UREA NITROGEN 23 mg/dl (7-18); CALCIUM 8.4 mg/dl (8.5-10.1); CARBON DIOXIDE 29 mmol/L (21-32); CKMB 5.2 ng/ml (0.5-3.6); CREATININE 1.39 mg/dl (0.60-1.40); GLUCOSE 165 mg/dl (70-99); LIPASE 88 U/L (73-393); POTASSIUM 4.6 mmol/L (3.5-5.1); SODIUM 142 mmol/L (136-145); TOTAL PROTEIN 7.2 gm/dl (6.4-8.2)
[2017-08-16 12:54] LABS: PTT PATIENT 24.4 SECONDS (21.0-31.0)
[2017-08-16] MEDS ORDERED: SODIUM CHLORIDE 0.9% 1000ML 1,000 ML IV SCH (13:33)
[2017-08-16 13:36] LABS: INFLUENZA B ANTIGEN Neg for Influ B (NEG)
[2017-08-16] MEDS ORDERED: ONDANSETRON INJ 2 MG/ML 2 ML VIAL IV PRN (13:45)
[2017-08-16] MEDS ORDERED: METOLAZONE 2.5 MG TAB PO PRN (13:45)
[2017-08-16] MEDS ORDERED: NITROGLYCERIN 0.4 MG SL PER TAB CHARGE UT PRN (13:45)
[2017-08-16] MEDS ORDERED: SIMETHICONE 80 MG CHEW PO PRN (13:45)
[2017-08-16] MEDS ORDERED: CALCIUM POLYCARBOPHIL 1 TAB PO PRN (13:45)
--- NOTE | 2017-08-16 13:52 | EMERGENCY ROOM VISIT NOTE ---
History Report prepared by Hood: Mckay Hsieh Under the Supervision of: Dr. Antonio Pineda M.D. First contact with patient: 10:28 Stated Complaint: ABDOMINAL PAIN/SOB/DIZZINESS/LETHARGIC History of Present Illness The patient is a 87 year old male who presents to the Emergency Room by EMS with complaints of constant dizziness beginning a few hours ago. He is a resident at the [facility]. The patient also complains of headache, lower abdominal pain, generalized weakness, and fatigue. His blood sugar was found to be 33 this morning. He was given breakfast and his blood sugar was increased to 134. The patient is reported to have begun acting very "lethargic" after eating breakfast. He denies fevers, chest pain, vomiting, diarrhea, or urinary symptoms. He is on supplemental oxygen at home at night. Source of History: patient Onset: A few hours ago Quality: other (dizziness) Timing: constant Associated Symptoms: + headache, + abdominal pain (lower), + fatigue, + weakness (generalized), No fevers, No chest pain, No vomiting, No diarrhea, No urinary symptoms Review of Systems See HPI for pertinent positives & negatives. A total of 10 systems reviewed and were otherwise negative. Past Medical & Surgical Medical Problems: (1) Acute exacerbation of CHF (congestive heart failure) (2) Acute on chronic respiratory failure with hypoxia and hypercapnia (3) Acute renal failure (4) Altered mental status (5) Anemia (6) Aspiration pneumonia (7) Asthma (8) chronic kidney disease (9) Chronic pain (10) COPD (chronic obstructive pulmonary disease) (11) Coronary artery disease (12) CVA (cerebrovascular accident) (13) Essential hypertension (14) HTN (hypertension) (15) Hx of diabetes mellitus (16) Hypercholesterolemia (17) Hyperparathyroidism (18) Hypotension (19) Influenza A (20) Lower GI bleed (21) Lung nodules (22) WA (myocardial infarction) (23) Peripheral vascular disease (24) Staphylococcus aureus pneumonia (25) TIA (transient ischemic attack) (26) Urinary retention (27) Urosepsis Surgical Problems: (1) H/O heart artery stent Old medical records were reviewed. Nurse's notes were reviewed and I agree with. Family History FH: heart disease Hypertension Social History Smoking Status: Former Smoker Alcohol Use: occasionally Drug Use: none Marital Status: Housing Status: assisted living Occupation Status: retired Current/Historical Medications Scheduled Acetaminophen (Tylenol), 1,000 MG PO Q12 Aspirin (Aspirin Chewable), 81 MG PO QAM Atenolol (Tenormin), 12.5 MG PO QAM Atorvastatin (Lipitor), 20 MG PO HS Bisacodyl (Bisacodyl), 5 MG PO BID Cyanocobalamin (B-12), 1,000 MCG PO QAM Docusate Sodium (Colace), 100 MG PO BID Duloxetine Hcl (Cymbalta), 60 MG PO QAM Dutasteride (Dutasteride), 0.5 MG PO DAILY Famotidine (Famotidine), 20 MG PO HS Fiber Laxative (Fiber Laxative), 1 TAB PO DAILY Fludrocortisone Acetate (Florinef), 0.1 MG PO BID Fluticasone Prop/Salmeterol (Advair Diskus 250/50 60 Dose), 1 PUFF INH BID Fluticasone Propionate (Fluticasone Propionate), 2 SPRAYS HEVER QAM Furosemide (Furosemide), 40 MG PO QAM Gabapentin (Gabapentin), 800 MG PO TID Gabapentin (Neurontin), 100 MG PO TID Guaifenesin Ext Rel (Mucinex Ext Rel), 1,200 MG PO Q12 Hydrocortisone (Cortef), 20 MG PO BID Insulin Aspart 70/30 (Novolog Mix 70/30), 10 UNITS SQ QPM Insulin Aspart Protamine & Asp (Novolog Mix 70/30), 25 UNITS SQ QAM Insulin Detemir (Levemir), 60 UNITS SQ PM Levalbuterol (Levalbuterol HCl), 1 VIAL NEB BID Lidocaine (Lidocaine), 1 PATCH TOP ONAMOFFPM Magnesium Oxide (Mag-Ox), 400 MG PO BID Methenamine Hippurate (Methenamine Hippurate), 1 GM PO HS Multiple Vitamins W/ Minerals (Therems M), 1 TAB PO QAM Nitroglycerin (Nitrostat), 0.4 MG UT PRN Omeprazole (Prilosec), 20 MG PO QAM Oxycodone Hcl (Oxycontin), 15 MG PO Q12 Polyethylene Glycol 3350 (Miralax), 17 GM PO BID Polyethylene Glycol-Propylene (Systane Ultra), 1 DROPS OPB BID Potassium Chloride (K-Tab), 40 MEQ PO BID Potassium Ext Rel (Klor-Con), 60 MEQ PO QAM Tamsulosin Hcl (Flomax), 0.4 MG PO HS Scheduled PRN Metolazone (Zaroxolyn), 2.5 MG PO DAILY PRN for WEIGHT GAIN Simethicone (Cvs Gas Relief), 1 TAB PO QID PRN for Indigestion Trolamine Salicylate (Aspercreme), 0 TOP BID PRN for ARTHRITIS Allergies Coded Allergies: No Known Allergies (Unverified , 08/16/17) Physical Exam Vital Signs Date Time Temp Pulse Resp B/P (MAP) Pulse Ox O2 Delivery O2 Flow Rate FiO2 08/16/17 13:11 61 08/16/17 12:48 61 22 138/73 95 Room Air 08/16/17 10:44 60 08/16/17 10:40 36.5 64 20 158/95 95 Room Air Physical Exam General: Chronically-ill appearing older male in no acute distress. Sleepy but arousable. HEENT: Normal cephalic atraumatic. Pupils are equal round and reactive to light. Extraocular movements are intact. Oropharynx is pink with moist mucous membranes. No swelling of the mouth lips or tongue. Neck: Supple with a midline trachea. No meningeal signs or stiffness, no JVD or bruits. No Stridor. Chest: Clear to auscultation bilaterally. No wheezes or rhonchi. No increased work of breathing. Heart: regular rate and rhythm. Abdomen: Soft without rebound guarding or rigidity. Distended. Minimally tender. Ball catheter in place. Extremities: No cyanosis clubbing or edema. No calf tenderness or assymetry Spine/Back. Non tender to palpation. No CVA tenderness Skin: Good turgor without rashes. Neurologic exam: Cranial nerves two through 12 are intact. Motor and sensation are intact and symmetrical throughout. Medical Decision & Procedures ER Provider Diagnostic Interpretation: Radiology results as stated below per my review and radiologist interpretation: CHEST ONE VIEW PORTABLE FINDINGS: The heart is mildly enlarged. There is no focal pulmonary consolidation. There is diffuse an essential thickening similar to the prior study. There is no acute rectal consolidation. There is a suspected trace right pleural effusion.[ IMPRESSION: No significant change from the prior study. Persistent chronic interstitial thickening. Electronically signed by: Sridhar Chowdary M.D. 08/16/2017 10:56 AM Laboratory Results 08/16/17 11:20 Red Blood Count 4.71, Mean Corpuscular Volume 81.3, Mean Corpuscular Hemoglobin 22.1, Mean Corpuscular Hemoglobin Concent 27.2, Neutrophils (%) (Auto) 76.6, Lymphocytes (%) (Auto) 11.6, Monocytes (%) (Auto) 8.2, Eosinophils (%) (Auto) 3.1, Basophils (%) (Auto) 0.1, Neutrophils # (Auto) 5.69, Lymphocytes # (Auto) 0.86, Monocytes # (Auto) 0.61, Eosinophils # (Auto) 0.23, Basophils # (Auto) 0.01 08/16/17 11:20 Test 08/16/17 10:36 08/16/17 11:20 08/16/17 11:29 08/16/17 11:53 Urine Color YELLOW Urine Appearance CLEAR (CLEAR) Urine pH 5.0 (4.5-7.5) Urine Specific Edgar 1.025 (1.000-1.030) Urine Protein NEG (NEG) Urine Glucose (UA) TRACE (NEG) Urine Ketones NEG (NEG) Urine Occult Blood NEG (NEG) Urine Nitrite NEG (NEG) Urine Bilirubin NEG (NEG) Urine Urobilinogen NEG (NEG) Urine Leukocyte Esterase MODERATE (NEG) Urine WBC (Auto) >30 /hpf (0-5) Urine RBC (Auto) 0-4 /hpf (0-4) Urine Hyaline Casts (Auto) 1-5 /lpf (0-5) Urine Epithelial Cells (Auto) 0-5 /lpf (0-5) Urine Bacteria (Auto) NEG (NEG) White Blood Count 7.43 K/uL (4.8-10.8) Red Blood Count 4.71 M/uL (4.7-6.1) Hemoglobin 10.4 g/dL (14.0-18.0) Hematocrit 38.3 % (42-52) Mean Corpuscular Volume 81.3 fL (80-100) Mean Corpuscular Hemoglobin 22.1 pg (25-34) Mean Corpuscular Hemoglobin Concent 27.2 g/dl (32-36) Platelet Count 208 K/uL (130-400) Neutrophils (%) (Auto) 76.6 % Lymphocytes (%) (Auto) 11.6 % Monocytes (%) (Auto) 8.2 % Eosinophils (%) (Auto) 3.1 % Basophils (%) (Auto) 0.1 % Neutrophils # (Auto) 5.69 K/uL (1.4-6.5) Lymphocytes # (Auto) 0.86 K/uL (1.2-3.4) Monocytes # (Auto) 0.61 K/uL (0.11-0.59) Eosinophils # (Auto) 0.23 K/uL (0-0.5) Basophils # (Auto) 0.01 K/uL (0-0.2) RDW Standard Deviation 62.6 fL (36.4-46.3) RDW Coefficient of Variation 21.1 % (11.5-14.5) Immature Granulocyte % (Auto) 0.4 % Immature Granulocyte # (Auto) 0.03 K/uL (0.00-0.02) Large Platelets 1+ Anisocytosis PRESENT Tear Drop Cells 1+ Anion Gap 5.0 mmol/L (3-11) Est Creatinine Clear Calc Drug Dose 47.3 ml/min Estimated GFR () 52.4 Estimated GFR (Non- 45.2 BUN/Creatinine Ratio 16.2 (10-20) Calcium Level 8.4 mg/dl (8.5-10.1) Total Bilirubin 0.4 mg/dl (0.2-1) Direct Bilirubin < 0.1 mg/dl (0-0.2) Aspartate Amino Transf (AST/SGOT) 20 U/L (15-37) Alanine Aminotransferase (ALT/SGPT) 24 U/L (12-78) Alkaline Phosphatase 99 U/L (45-117) Total Creatine Kinase 168 U/L (39-308) Creatine Kinase MB 5.2 ng/ml (0.5-3.6) Creatine Kinase MB Ratio 3.1 (0-3.0) Troponin I 0.016 ng/ml (0-0.045) Pro-B-Type Natriuretic Peptide 746 pg/ml (0-1800) Total Protein 7.2 gm/dl (6.4-8.2) Albumin 3.4 gm/dl (3.4-5.0) Lipase 88 U/L (73-393) Bedside Lactic Acid Venous 1.71 mmol/L (0.90-1.70) Bedside Troponin I < 0.030 ng/ml (0-0.045) Arterial Blood pH 7.41 (7.35-7.45) Arterial Blood Partial Pressure CO2 44 mmHg (35-46) Arterial Blood Partial Pressure O2 75 mm/Hg (80-95) Arterial Blood HCO3 27 mmol/L (19-24) Arterial Blood Oxygen Saturation 92.8 % (90-95) Arterial Blood Base Excess 2.0 mEq/L (-9-1.8) Arterial Blood Gas Delivery RA Ramos Test POS (POS) Test 08/16/17 11:57 08/16/17 12:32 08/16/17 12:50 Bedside Glucose 123 mg/dl (70-99) Prothrombin Time 10.2 SECONDS (9.0-12.0) Prothromb Time International Ratio 1.0 (0.9-1.1) Activated Partial Thromboplast Time 24.4 SECONDS (21.0-31.0) Partial Thromboplastin Ratio 0.9 Influenza Type A Antigen Neg for Influ A (NEG) Influenza Type B Antigen Neg for Influ B (NEG) Laboratory studies as stated above per my review. Medications Administered Medications (Trade) Dose Ordered Sig/Cole Route Start Time Stop Time Status Last Admin Dose Admin Albuterol/ Ipratropium (Duoneb) 3 ml NOW STAT INH 08/16/17 10:36 08/16/17 10:39 DC 08/16/17 11:20 3 ML Hydrocortisone Sodium Succinate (Solu-Cortef IV) 100 mg NOW STAT IV 08/16/17 10:39 08/16/17 10:40 DC 08/16/17 11:20 100 MG Sodium Chloride 1,000 ml @ 50 mls/hr Q20H IV 08/16/17 13:33 08/17/17 09:32 08/16/17 16:32 50 MLS/HR ECG Indication: altered mental status Rate (beats per minute): 79 Rhythm: normal sinus (suspected ) Findings: RBBB, no acute ischemic change, other (Poor baseline. ) Comparison ECG Date: Aug 08, 2017 Change: no significant change ED Course 1030: Past medical records reviewed. The patient was evaluated in room C9, and a complete history and physical examination were performed. 1036: Ordered DuoNEb 3 mL INH. 1039: Ordered Solu-Cortef 100 mg IV. 1130: I spoke with the patient's . She states that the patient typically acts like this when he is sick. The patient appears increasingly somnolent. 1230: Upon reevaluation, the patient is resting comfortably. I discussed the results and treatment plan with the patient. He and his verbalized agreement of the treatment plan. The patient will be evaluated for further management. Medical Decision Differentials include, but are not limited to; hypoglycemia, sepsis, COPD, intraabdominal process, anemia, intracranial process, and electrolyte or metabolic abnormality. This patient comes in as described above. He was placed in room C9. He has a very complex medical history and has had frequent hospitalizations. He was last discharged a couple days ago. This morning he was found to be confused to have low blood sugar they corrected this and he complained that he was feeling dizzy and other vague complaints. Initially when I saw him, he was talking more interactive and shortly after being here he seemed less responsive .I checked the blood sugar here and it was normal. He was given one neb. I did an ABG and there is no evidence suggest CO2 retention CAT scan of his head is unremarkable. He has no fever or white count to suggest infection or sepsis. His lactic acid is not significantly elevated. He has no acute electrolyte or metabolic abnormalities. Urinalysis does show greater than 30 white cells have her use a chronic indwelling Ball. It is possible that this could be the source of his altered mental status. He is also on multiple meds that could be plan a role here as well a could be more pulmonary related also. I do think he needs to be admitted/observed for further treatment and evaluation discuss case with Dr. Santoro who will see him in the ER. Medication Reconcilliation Current Medication List: was personally reviewed by me Blood Pressure Screening Patient's blood pressure: Elevated blood pressure Blood pressure disposition: Referred to PCP Consults Time Called: 1230 Consulting Physician: Dr. Santoro [place] [facility] [place] Returned Call: [phone] Discussed the patient's case. The patient will be evaluated for further management. Impression Primary Impression: Altered mental status Additional Impression: Weakness Scribe Attestation The scribe's documentation has been prepared under my direction and personally reviewed by me in its entirety. I confirm that the note above accurately reflects all work, treatment, procedures, and medical decision making performed by me. Departure Information Dispostion Being Evaluated By Hospitalist Referrals Wilver Franco M.D. (PCP) Problem Qualifiers
[2017-08-16] MEDS ORDERED: IV FLUIDS COMPLETED PRN (14:00)
--- NOTE | 2017-08-16 14:45 | DIAGNOSTIC IMAGING REPORT ---
HEAD CT NONCONTRAST CT DOSE: 712.55 mGy.cm HISTORY: Altered mental status. Dizzy. TECHNIQUE: Multiaxial CT images of the head were performed without the use of intravenous contrast. Automated exposure control was utilized for this study. A dose lowering technique was utilized adhering to the principles of ALARA. Comparison: Head CT 08/08/2017. Findings: Mild motion artifact. The right mastoid air cells are clear. Near-complete opacification of the left mastoid air cells. Moderate mucosal thickening within the left posterior ethmoid air cells and a small retention cyst within the right posterior ethmoid air cells. Nasal bone deformities which are likely old. This is similar to the prior study. The calvarium and skull base are intact. There is no mass, hematoma, midline shift, acute infarct. White matter hypodensity is nonspecific but suggestive of microvascular ischemic change. The ventricles and sulci demonstrate mild age-related involutional changes. Impression: No significant change. No acute intracranial abnormality. Atrophy and microvascular ischemic changes. Left mastoid effusion. Electronically signed by: Aubrey Kaplan M.D. 08/16/2017 2:44 PM Dictated Date/Time: 08/16/2017 12:50 PM
[2017-08-16 14:52] LABS: INFLUENZA A PCR Neg for Influ A (NEG); INFLUENZA B PCR Neg for Influ B (NEG)
[2017-08-16 15:18] VITALS: BP 170/79; PULSE 62; TEMP 36.5; O2SAT 95; Ht 185.4 cm; Wt 99.1 kg
[2017-08-16] MEDS ORDERED: DEXTROSE 50% 50 ML SYR IV PRN (15:30)
[2017-08-16] MEDS ORDERED: GLUCOSE 10 TABS/TUBE PO PRN (15:30)
[2017-08-16] MEDS ORDERED: GLUCAGON FOR INJ 1 MG VIAL SQ PRN (15:30)
[2017-08-16] MEDS ORDERED: GLUCOSE 40% GEL 15 GM TUBE PO PRN (15:30)
[2017-08-16] MEDS ORDERED: VANCOMYCIN CONSULT ACTIVE PRN (15:45)
[2017-08-16] MEDS ORDERED: VANCOMYCIN INJ 2,250 MG in SODIUM CHLORIDE 0.9% 500ML 500 ML IV SCH (16:30)
[2017-08-16] MEDS: HYDROCORTISONE IV 50 MG in SYRINGE 0 ML IV SCH (16:32)
[2017-08-16] MEDS: HEPARIN SOD 5000 UNIT/0.5 ML CARP SQ SCH ×2 (16:41→21:11)
[2017-08-16] MEDS: CEFEPIME IV 1,000 MG in SYRINGE 0 ML IV SCH (17:48)
[2017-08-16 19:42] VITALS: BP 141/76; PULSE 72; TEMP 36.4; O2SAT 94
[2017-08-16] MEDS ORDERED: INSULIN DETEMIR FLEXPEN/FLEX TOUCH 100 UNITS/ML 3ML SC SCH (21:00)
[2017-08-16] MEDS: FAMOTIDINE 20 MG TAB PO SCH (21:01)
[2017-08-16] MEDS: MAGNESIUM OXIDE 400 MG TAB PO SCH (21:01)
[2017-08-16] MEDS: METHENAMINE HIPPURATE 1 GM TAB PO SCH (21:01)
[2017-08-16] MEDS: DOCUSATE SODIUM 100 MG CAP PO SCH (21:01)
[2017-08-16] MEDS: FLUTICASONE/SALMETEROL 250/50 (ADVAIR) 14 PUFF/1 INHALER INH SCH (21:01)
[2017-08-16] MEDS: TAMSULOSIN HCL 0.4 MG CAP PO SCH (21:01)
[2017-08-16] MEDS: POLYETHYLENE (MIRALAX) 17 GM PACK PO SCH (21:02)
[2017-08-16] MEDS: FLUDROCORTISONE ACETATE 0.1 MG TAB PO SCH (21:02)
[2017-08-16] MEDS: BISACODYL 5 MG TABEC PO SCH (21:34)
[2017-08-16] MEDS: ARTIFICIAL TEARS OP SOLN OP SCH (21:35)
--- NOTE | 2017-08-16 22:14 | History and Physical ---
History & Physical Date & Time of Service: Aug 16, 2017 at 15:34 Chief Complaint: Altered Mental Status Primary Care Physician: Wilver Franco M.D. History of Present Illness Source: spouse 87yo male, well known to the hospitalist service due to frequent admissions, with PMH significant for chronic hypoxic respiratory failure on home O2, chronic gomez use x 9 months, T2DM, chronic systolic/diastolic CHF, COPD, adrenal insufficiency, CKD stage 3-4, recurrent episodes of aspiration, h/o DVT , recent GI bleeding with discontinuation of anticoagulation, and recurrent UTIs - who was recently hospitalized from 08/08 to 08/14 with altered MS, hypoglycemia, and hypoxia and found to have acute/chronic CHF and COPD exacerbation. He was treated with diuretics & steroids with improvement in all presenting symptoms. The altered MS was thought to be from the low blood glucose and hypoxia. The patient again presents today from the [facility] with altered mental status and hypoglycemia. By report his blood sugar this AM was about 30. There was no reported seizure activity. Since arriving in the ER he has been soundly sleeping. He will awaken for a brief moment with his name being called then quickly falls back to sleep. reports he was in his usual state of health yesterday and had no complaints when she visited with him at the [facility]. She did recall that he complained of feeling tired. She did not receive any report from the [facility] that he had specific complaints such as fever, chills, cough, dyspnea, chest pain, abd pain, nausea, emesis, diarrhea, or pain in other locations. During my assessment he slept the entire time except for 1 brief moment when he awoke, looked at me, said something unintelligible, then quickly returned to sleep. Periodic limb movements were noted throughout the visit. reports this is not unusual for him. Past Medical/Surgical History PMH: 1. COPD 2. chronic hypoxic respiratory failure 3. chronic systolic/diastolic CHF, EF 45-50% 4. T2DM 5. recurrent episodes of aspiration 6. BPH 7. chronic gomez catheter use 8. adrenal insufficiency 9. recurrent UTIs 10. h/o DVT 11. recent GI bleeding with discontinuation of anticoagulatoin 12. CAD with prior [place] 13. h/o stroke 14. HTN 15. hyperlipidemia 16. PAD 17. DEVIN 18. h/o PAF and/or paroxysmal a. flutter PSH: 1. 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 ) Immunizations History of Influenza Vaccine: Yes Influenza Vaccine Date: Jun 08, 2013 History of Tetanus Vaccine?: Unknown History of Pneumococcal: Yes History of Hepatitis B Vaccine: Unknown Multi-Drug Resistant Organisms History of MDRO: Yes Type of MDRO: MRSA Allergies Coded Allergies: No Known Allergies (Unverified , 08/16/17) Home Medications Scheduled Acetaminophen (Tylenol), 1,000 MG PO Q12 Aspirin (Aspirin Chewable), 81 MG PO QAM Atenolol (Tenormin), 12.5 MG PO QAM Atorvastatin (Lipitor), 20 MG PO HS Bisacodyl (Bisacodyl), 5 MG PO BID Cyanocobalamin (B-12), 1,000 MCG PO QAM Docusate Sodium (Colace), 100 MG PO BID Duloxetine Hcl (Cymbalta), 60 MG PO QAM Dutasteride (Dutasteride), 0.5 MG PO DAILY Famotidine (Famotidine), 20 MG PO HS Fiber Laxative (Fiber Laxative), 1 TAB PO DAILY Fludrocortisone Acetate (Florinef), 0.1 MG PO BID Fluticasone Prop/Salmeterol (Advair Diskus 250/50 60 Dose), 1 PUFF INH BID Fluticasone Propionate (Fluticasone Propionate), 2 SPRAYS HEVER QAM Furosemide (Furosemide), 40 MG PO QAM Gabapentin (Gabapentin), 800 MG PO TID Gabapentin (Neurontin), 100 MG PO TID Guaifenesin Ext Rel (Mucinex Ext Rel), 1,200 MG PO Q12 Hydrocortisone (Cortef), 20 MG PO BID Insulin Aspart 70/30 (Novolog Mix 70/30), 10 UNITS SQ QPM Insulin Aspart Protamine & Asp (Novolog Mix 70/30), 25 UNITS SQ QAM Insulin Detemir (Levemir), 60 UNITS SQ PM Levalbuterol (Levalbuterol HCl), 1 VIAL NEB BID Lidocaine (Lidocaine), 1 PATCH TOP ONAMOFFPM Magnesium Oxide (Mag-Ox), 400 MG PO BID Methenamine Hippurate (Methenamine Hippurate), 1 GM PO HS Multiple Vitamins W/ Minerals (Therems M), 1 TAB PO QAM Nitroglycerin (Nitrostat), 0.4 MG UT PRN Omeprazole (Prilosec), 20 MG PO QAM Oxycodone Hcl (Oxycontin), 15 MG PO Q12 Polyethylene Glycol 3350 (Miralax), 17 GM PO BID Polyethylene Glycol-Propylene (Systane Ultra), 1 DROPS OPB BID Potassium Chloride (K-Tab), 40 MEQ PO BID Potassium Ext Rel (Klor-Con), 60 MEQ PO QAM Tamsulosin Hcl (Flomax), 0.4 MG PO HS Scheduled PRN Metolazone (Zaroxolyn), 2.5 MG PO DAILY PRN for WEIGHT GAIN Simethicone (Cvs Gas Relief), 1 TAB PO QID PRN for Indigestion Trolamine Salicylate (Aspercreme), 0 TOP BID PRN for ARTHRITIS Review of Systems unable to obtain ROS due to altered mental status provided some historical information as stated above in the HPI Physical Exam Vital Signs Date Time Temp Pulse Resp B/P (MAP) Pulse Ox O2 Delivery O2 Flow Rate FiO2 08/16/17 14:31 66 22 149/85 94 08/16/17 13:11 61 08/16/17 12:48 61 22 138/73 95 Room Air 08/16/17 10:44 60 08/16/17 10:40 36.5 64 20 158/95 95 Room Air General Appearance: no apparent distress, + obese, + pertinent finding (severe snoring; briefly wakes up to his name being called; periodic limb movements noted) Head: normocephalic, atraumatic Eyes: PERRL, sclerae normal ENT: + pertinent finding (MM very dry, no lesions) Neck: supple, no adenopathy, thyroid normal, no JVD, no carotid bruits Respiratory/Chest: lungs clear, no respiratory distress, no accessory muscle use Cardiovascular: regular rate, rhythm, no gallop, no murmur, normal peripheral pulses Abdomen/GI: normal bowel sounds, non tender, soft, no organomegaly Extremities/Musculoskelatal: no pedal edema Neurologic/Psych: normal reflexes, + pertinent finding (lethargic, snoring, periodic limb movements noted; when he briefly awoke he moved all 4 limbs spontaneously; no facial droop) Skin: + pertinent finding (left 2nd toe - minimal ulcer on dorsal surface with scant drainage) Lymphatic: no adenopathy (no cervical LAD) Diagnostics Laboratory Results Results Past 24 Hours Test 08/16/17 10:36 08/16/17 11:20 08/16/17 11:29 08/16/17 11:53 Range/Units Urine Color YELLOW Urine Appearance CLEAR CLEAR Urine pH 5.0 4.5-7.5 Urine Specific [place] 1.025 1.000-1.030 Urine Protein NEG NEG Urine Glucose (UA) TRACE NEG Urine Ketones NEG NEG Urine Occult Blood NEG NEG Urine Nitrite NEG NEG Urine Bilirubin NEG NEG Urine Urobilinogen NEG NEG Urine Leukocyte Esterase MODERATE NEG Urine WBC (Auto) >30 0-5 /hpf Urine RBC (Auto) 0-4 0-4 /hpf Urine Hyaline Casts (Auto) 1-5 0-5 /lpf Urine Epithelial Cells (Auto) 0-5 0-5 /lpf Urine Bacteria (Auto) NEG NEG Creatine Kinase MB Ratio 3.1 0-3.0 White Blood Count 7.43 4.8-10.8 K/uL Red Blood Count 4.71 4.7-6.1 M/uL Hemoglobin 10.4 14.0-18.0 g/dL Hematocrit 38.3 42-52 % Mean Corpuscular Volume 81.3 80-100 fL Mean Corpuscular Hemoglobin 22.1 25-34 pg Mean Corpuscular Hemoglobin Concent 27.2 32-36 g/dl Platelet Count 208 130-400 K/uL Neutrophils (%) (Auto) 76.6 % Lymphocytes (%) (Auto) 11.6 % Monocytes (%) (Auto) 8.2 % Eosinophils (%) (Auto) 3.1 % Basophils (%) (Auto) 0.1 % Neutrophils # (Auto) 5.69 1.4-6.5 K/uL Lymphocytes # (Auto) 0.86 1.2-3.4 K/uL Monocytes # (Auto) 0.61 0.11-0.59 K/uL Eosinophils # (Auto) 0.23 0-0.5 K/uL Basophils # (Auto) 0.01 0-0.2 K/uL RDW Standard Deviation 62.6 36.4-46.3 fL RDW Coefficient of Variation 21.1 11.5-14.5 % Immature Granulocyte % (Auto) 0.4 % Immature Granulocyte # (Auto) 0.03 0.00-0.02 K/uL Large Platelets 1+ Anisocytosis PRESENT Tear Drop Cells 1+ Sodium Level 142 136-145 mmol/L Potassium Level 4.6 3.5-5.1 mmol/L Chloride Level 108 98-107 mmol/L Carbon Dioxide Level 29 21-32 mmol/L Anion Gap 5.0 3-11 mmol/L Blood Urea Nitrogen 23 7-18 mg/dl Creatinine 1.39 0.60-1.40 mg/dl Est Creatinine Clear Calc Drug Dose 47.3 ml/min Estimated GFR () 52.4 Estimated GFR (Non- 45.2 BUN/Creatinine Ratio 16.2 10-20 Random Glucose 165 70-99 mg/dl Calcium Level 8.4 8.5-10.1 mg/dl Total Bilirubin 0.4 0.2-1 mg/dl Direct Bilirubin < 0.1 0-0.2 mg/dl Aspartate Amino Transf (AST/SGOT) 20 15-37 U/L Alanine Aminotransferase (ALT/SGPT) 24 12-78 U/L Alkaline Phosphatase 99 45-117 U/L Total Creatine Kinase 168 39-308 U/L Creatine Kinase MB 5.2 0.5-3.6 ng/ml Troponin I 0.016 0-0.045 ng/ml Pro-B-Type Natriuretic Peptide 746 0-1800 pg/ml Total Protein 7.2 6.4-8.2 gm/dl Albumin 3.4 3.4-5.0 gm/dl Lipase 88 73-393 U/L Bedside Lactic Acid Venous 1.71 0.90-1.70 mmol/L Bedside Troponin I < 0.030 0-0.045 ng/ml Arterial Blood pH 7.41 7.35-7.45 Arterial Blood Partial Pressure CO2 44 35-46 mmHg Arterial Blood Partial Pressure O2 75 80-95 mm/Hg Arterial Blood HCO3 27 19-24 mmol/L Arterial Blood Oxygen Saturation 92.8 90-95 % Arterial Blood Base Excess 2.0 -9-1.8 mEq/L Arterial Blood Gas Delivery RA Ramos Test POS POS Test 08/16/17 11:57 08/16/17 12:32 08/16/17 12:50 08/16/17 13:50 Range/Units Bedside Glucose 123 70-99 mg/dl Prothrombin Time 10.2 9.0-12.0 SECONDS Prothromb Time International Ratio 1.0 0.9-1.1 Activated Partial Thromboplast Time 24.4 21.0-31.0 SECONDS Partial Thromboplastin Ratio 0.9 Influenza Type A Antigen Neg for Influ A NEG Influenza Type B Antigen Neg for Influ B NEG Influenza Type A (RT-PCR) Neg for Influ A NEG Influenza Type B (RT-PCR) Neg for Influ B NEG Microbiology Results 08/16/17 Blood Culture, Received Pending 08/16/17 Blood Culture, Received Pending 08/16/17 Urine Culture, Received Pending Diagnostic Radiology 1. CT head - Findings: Mild motion artifact. The right mastoid air cells are clear. Near-complete opacification of the left mastoid air cells. Moderate mucosal thickening within the left posterior ethmoid air cells and a small retention cyst within the right posterior ethmoid air cells. Nasal bone deformities which are likely old. This is similar to the prior study. The calvarium and skull base are intact. There is no mass, hematoma, midline shift, acute infarct. White matter hypodensity is nonspecific but suggestive of microvascular ischemic change. The ventricles and sulci demonstrate mild age-related involutional changes. Impression: No significant change. No acute intracranial abnormality. Atrophy and microvascular ischemic changes. Left mastoid effusion. 2. CXR - IMPRESSION: No significant change from the prior study. Persistent chronic interstitial thickening. EKG EKG - significant artifact/poor tracing NSR IRBBB no obvious ST changes Impression Assessment and Plan This is the 10th admission in the last 12 months for this pleasant 87yo male with PMH significant for chronic hypoxic respiratory failure on home O2, chronic gomez use x 9 months, T2DM, chronic systolic/diastolic CHF, COPD, adrenal insufficiency, CKD stage 3-4, recurrent episodes of aspiration, h/o DVT , recent GI bleeding with discontinuation of anticoagulation, and recurrent UTIs. He was just hospitalized for acute/chronic CHF & COPD exacerbation and d/ c back to SNF on 08/14/17. Today he is presenting with altered mental status & hypoglycemia along with mild lactic acidosis. Etiology of his presentation today is uncertain. 1. encephalopathy - uncertain etiology. Likely metabolic due to the known hypoglycemia and lactic acidosis. Infection is high on the differential but no obvious source on exam or labs. CXR w/o obvious pneumonia. U/a largely wnl. Rapid flu negative. Plan - * cefepime/vancomycin IV while awaiting blood/urine cx's; cover for at least 48 hours * flu PCR in the event rapid flu was falsely negative * check ammonia and B12 levels * frequent blood sugar checks in light of recent hypoglycemia If no infection is found other possibilities include - * seizure (from the hypoglycemia) with post-ictal state * TIA vs stroke due to h/o PAF and not being on anticoagulation Could consider MRI to r/o stroke if infectious/metabolic w/u is negative. 2. hypoglycemia in setting of T2DM - this has been an ongoing theme of late. Since I don't suspect he will eat today due to lethargy will REDUCE his levemir from 60 units to 20 units and hold his novolog. Adjust/restart his insulins once mental status improves and he is eating. 3. FEN - NPO until he awakens. NS hydration - 50cc/hr x 1 liter then saline lock (to avoid volume overload from CHF). Repeat BMP/mag in am. 4. chronic systolic/diastolic CHF - appears compensated; resume BB, lasix in AM. 5. adrenal insufficiency - was given hydrocortisone 100mg IV x 1 in ER for stress dose purposes in light of low glucose & possible infection. Will cont stress dose steroids with hydrocortisone 50mg IV q8h. Once improving quickly taper over a few days to home doses. Cont florinef. 6. chronic gomez catheter usage - noted; continue current gomez. Will need to check to see when it was last changed. 7. chronic hypoxic resp failure - on home o2 - continue such, o2 sats in low 90s are acceptable. 8. CAD with prior h/o [place] - check serial troponins to r/o an ACS but doubt. 9. COPD - not in exacerbation at this time. 10. CKD stage 3-4 - creatinine is stable/at baseline today; BMP in am. 11. anemia - H/H are stable; in fact slightly higher than baseline, perhaps modestly hemoconcentrated today. 12. DVT proph - heparin TID. 13. h/o stroke - noted; see discussion in #1 above. patient's confirms level 5 DNR this is patient's 10th hospital stay in 12 months - strongly consider palliative care consultation here or as outpatient to discuss goals of care Level of Care Telemetry Advanced Directives Existing Advance Directive: Yes Existing Living Will: Yes Resuscitation Status DO NOT RESUSCITATE VTE Prophylaxis VTE Risk Assessment Done? Y/N: Yes Risk Level: Moderate Given or contraindicated: Unfractionated heparin SQ Social Service Consult Lives in Senior Living Note total time about 70 minutes - to be placed on observation status for now Additional Copies To Wilver Franco M.D.
[2017-08-16] MEDS: ATORVASTATIN 20 MG TAB PO SCH (23:09)
[2017-08-16] MEDS: ACETAMINOPHEN 500 MG TAB PO SCH (23:10)
[2017-08-17 00:16] VITALS: BP 129/61; PULSE 97; TEMP 36.8; O2SAT 98
[2017-08-17] MEDS: HYDROCORTISONE IV 50 MG in SYRINGE 0 ML IV SCH ×3 (00:21→16:03)
[2017-08-17 03:49] VITALS: BP 107/63; PULSE 67; TEMP 36.7; O2SAT 98
[2017-08-17] MEDS: HEPARIN SOD 5000 UNIT/0.5 ML CARP SQ SCH ×3 (05:56→21:19)
[2017-08-17] MEDS: CEFEPIME IV 1,000 MG in SYRINGE 0 ML IV SCH ×2 (05:56→17:24)
[2017-08-17] MEDS: ACETAMINOPHEN 500 MG TAB PO SCH ×2 (06:01→16:06)
[2017-08-17 07:12] VITALS: BP 130/70; PULSE 67; TEMP 37.1; O2SAT 100
[2017-08-17 07:24] LABS: CALCIUM 8.1 mg/dl (8.5-10.1); CREATININE 1.51 mg/dl (0.60-1.40); POTASSIUM 4.3 mmol/L (3.5-5.1)
[2017-08-17] MEDS: FLUTICASONE/SALMETEROL 250/50 (ADVAIR) 14 PUFF/1 INHALER INH SCH ×2 (08:51→21:09)
[2017-08-17] MEDS: FLUTICASONE PROPIONATE NA SPR 16 GM BTL NAE SCH (08:52)
[2017-08-17] MEDS: DULOXETINE HCL 60 MG CAP PO SCH (08:52)
[2017-08-17] MEDS: ARTIFICIAL TEARS OP SOLN OP SCH ×2 (08:52→21:09)
[2017-08-17] MEDS: DOCUSATE SODIUM 100 MG CAP PO SCH ×2 (08:52→21:09)
[2017-08-17] MEDS: FUROSEMIDE 40 MG TAB PO SCH (08:53)
[2017-08-17] MEDS: CEROVITE ADV FORMULA TAB PO SCH (08:53)
[2017-08-17] MEDS: POLYETHYLENE (MIRALAX) 17 GM PACK PO SCH ×2 (08:53→21:12)
[2017-08-17] MEDS: FLUDROCORTISONE ACETATE 0.1 MG TAB PO SCH ×2 (08:53→21:13)
[2017-08-17] MEDS: MAGNESIUM OXIDE 400 MG TAB PO SCH ×2 (08:53→21:13)
[2017-08-17] MEDS: PANTOprazole SOD 40 MG TAB PO SCH (08:54)
[2017-08-17] MEDS: BISACODYL 5 MG TABEC PO SCH ×2 (08:59→21:20)
[2017-08-17] MEDS: ASPIRIN 81 MG CHEW PO SCH (08:59)
[2017-08-17] MEDS ORDERED: FINASTERIDE 5 MG TAB PO SCH (09:00)
--- NOTE | 2017-08-17 11:51 | Pharmacy Progress Note ---
Pharmacy Antibiotic Consult Date of Service: Aug 17, 2017. Pharmacy Dosing Scope Pharmacy is consulted to initiate vancomycin IV dosing therapy, order appropriate labs and adjust drug dose/frequency. Subjective The patient is a 87 year old male admitted on Aug 16, 2017 at 13:48. Objective Height (Feet): 6 Height (Inches): 1.00 Weight (Kilograms): 100.200 Lab Results (24hrs): Test 08/16/17 11:53 08/16/17 12:32 08/16/17 12:50 08/16/17 13:50 Arterial Blood pH 7.41 (7.35-7.45) Arterial Blood Partial Pressure CO2 44 mmHg (35-46) Arterial Blood Partial Pressure O2 75 mm/Hg (80-95) Arterial Blood HCO3 27 mmol/L (19-24) Arterial Blood Oxygen Saturation 92.8 % (90-95) Arterial Blood Base Excess 2.0 mEq/L (-9-1.8) Arterial Blood Gas Delivery RA Ramos Test POS (POS) Prothrombin Time 10.2 SECONDS (9.0-12.0) Prothromb Time International Ratio 1.0 (0.9-1.1) Activated Partial Thromboplast Time 24.4 SECONDS (21.0-31.0) Partial Thromboplastin Ratio 0.9 Influenza Type A Antigen Neg for Influ A (NEG) Influenza Type B Antigen Neg for Influ B (NEG) Influenza Type A (RT-PCR) Neg for Influ A (NEG) Influenza Type B (RT-PCR) Neg for Influ B (NEG) Test 08/16/17 17:33 08/16/17 22:15 08/17/17 01:59 08/17/17 06:27 Ammonia < 10.0 umol/L (11-32) Vitamin B12 Level 872 pg/mL (211-911) Troponin I 0.022 ng/ml (0-0.045) Bedside Glucose 187 mg/dl (70-99) Sodium Level 142 mmol/L (136-145) Potassium Level 4.3 mmol/L (3.5-5.1) Chloride Level 107 mmol/L (98-107) Carbon Dioxide Level 29 mmol/L (21-32) Anion Gap 6.0 mmol/L (3-11) Blood Urea Nitrogen 20 mg/dl (7-18) Creatinine 1.51 mg/dl (0.60-1.40) Est Creatinine Clear Calc Drug Dose 42.9 ml/min Estimated GFR () 47.4 Estimated GFR (Non- 40.9 BUN/Creatinine Ratio 13.5 (10-20) Random Glucose 147 mg/dl (70-99) Calcium Level 8.1 mg/dl (8.5-10.1) Magnesium Level 2.7 mg/dl (1.8-2.4) Test 08/17/17 06:29 Bedside Glucose 149 mg/dl (70-99) Micro Results: Date/Time Source Procedure Growth Status 08/16/17 11:20 Blood Blood Culture Pending Received 08/16/17 11:05 Blood Blood Culture Pending Received 08/16/17 10:36 Urine,Catheterized Urine Culture - Preliminary Streptococcus Species Resulted Assessment & Plan Assessment: * 87 yo male presenting from [facility] with altered mental status and hypoglycemia. * Ruling out infectious process, starting cefepime/vancomycin empirically, currently entered for 48 hours * Patient on vancomycin on last admission in late June/early July * Started on same regimen as patient had therapeutic trough- SCr is slight decreased from that admission but has gone up from yesterday. * Urine culture currently growing strep sp., Blood cultures are pending Plan: Patient received 2250 mg (22 mg/kg) loading dose then 2000 mg (20mg/kg) q24 hrs Goal trough level estimate: between 15-20 mcg/mL. Trough level not currently ordered due to empiric indication/48 hour stop and 24 hour dosing. If vancomycin to continue will order trough prior to 3rd dose. Pharmacy will continue to follow and will adjust dose/frequency as necessary. Thank you
[2017-08-17] MEDS ORDERED: INSULIN DETEMIR FLEXPEN/FLEX TOUCH 100 UNITS/ML 3ML SC ONE (12:00)
[2017-08-17] MEDS ORDERED: VANCOMYCIN INJ 2,000 MG in SODIUM CHLORIDE 0.9% 500ML 500 ML IV SCH (12:00)
[2017-08-17] MEDS ORDERED: PHARMACY GLYCEMIC MGMT CONSULT PRN (12:00)
[2017-08-17] MEDS: INSULIN ASPART 100 UNITS/ML 3 ML PEN SC SCH ×3 (12:47→21:19)
[2017-08-17] MEDS ORDERED: NURSING VERBAL MED ORDER ONE (13:45)
[2017-08-17] MEDS ORDERED: ARTIFICIAL TEARS OP SOLN OP SCH (14:15)
[2017-08-17] MEDS ORDERED: LIDODERM (LIDOCAINE) PATCH 5% TD SCH (14:30)
--- NOTE | 2017-08-17 14:57 | Pharmacy Progress Note ---
Glycemic Control Intl Consult Date of Service Aug 17, 2017. Scope Glycemic Pharmacist consulted by Dr Carey on 08/17/17 for glycemic control and to write orders per [facility] inpatient glycemic control protocol Objective Weight (Kilograms): 100.200 Accuchecks BSG (last 24hrs): Test 08/16/17 18:21 08/16/17 20:21 08/17/17 01:59 08/17/17 06:27 Bedside Glucose 135 mg/dl (70-99) 190 mg/dl (70-99) 187 mg/dl (70-99) Random Glucose 147 mg/dl (70-99) Test 08/17/17 06:29 08/17/17 11:39 Bedside Glucose 149 mg/dl (70-99) 191 mg/dl (70-99) Laboratory Data (last 24hrs) Test 08/17/17 06:27 Anion Gap 6.0 mmol/L BUN/Creatinine Ratio 13.5 Blood Urea Nitrogen 20 mg/dl Creatinine 1.51 mg/dl Potassium Level 4.3 mmol/L Sodium Level 142 mmol/L Recent Pertinent Medications Outpatient Anti-diabetic Regimen: * Levemir 60 units HS * Novolog 70/30 25 units AM, 10 units PM * A1c = 8.8 % 01/22/17 - needs updated A1c The patient is currently receiving: * Basal insulin: Levemir 20 units every 24 hours * Correctional Insulin: None * Prandial insulin: None Risk Factors for Insulin Resistance: * Steroids: Hydrocortisone 50 mg IV Q8H * Infection:Vanc & Cefepime IV * Diet: Type 2 DM Assessment & Plan ASSESSMENT: * 87 year old male type 2 diabetic admitted with encephalopathy of uncertain etiology, likely metabolic d/t hypoglycemia and lactic acidosis * IV antibiotics while awaiting blood and urine cultures, covering for at least 48 hours * Patient was NPO yesterday and recevied 20 units of Levemir last night, diet restarted today * Patient unable to tell me how he takes his insulin, but per his med rec he takes 95 units/day * Pt also on high dose IV steroids which will likely cause hyperglycemia * Pt requires a supplemental dose of Levemir now, as he will be basal deficient from reduced dose yesterday and a daily dose at HS * Will also begin CF and CR, with higher goal range to prevent hypoglcemia. PLAN FOR INPATIENT GLYCEMIC CONTROL: * Basal insulin with LANTUS 20units SQ x 1 dose now then * BSG < 110mg/dl - 0 units * BSG 110-180 - 40 units * BSG > 180 - 50 units * Correctional Insulin with NOVOLOG per scale ACHS or Q6hrs while NPO * Goal Range: Low 120 mg/dL - High 150 mg/dL - to prevent hypoglycemia in setting of encephalopathy * Correction Factor: 25 mg/dL/unit * Nutritional / Prandial insulin per carb ratio of 1 unit per 8 grams CHO consumed * Please note that the plan above was derived based on current level of insulin resistance and hospital stress. These recommendations are appropriate for inpatient admission only. Plan of care upon discharge will need to be reassessed to avoid potential outpatient hypo/hyperglycemia. Thank you.
[2017-08-17 15:57] VITALS: BP 131/82; PULSE 69; TEMP 36.4; O2SAT 96
[2017-08-17 19:48] VITALS: BP 135/71; PULSE 63; TEMP 36.6; O2SAT 99
[2017-08-17] MEDS ORDERED: DUTASTERIDE 0.5MG PO SCH (21:00)
[2017-08-17] MEDS ORDERED: INSULIN DETEMIR FLEXPEN/FLEX TOUCH 100 UNITS/ML 3ML SC SCH (21:00)
[2017-08-17] MEDS: ATORVASTATIN 20 MG TAB PO SCH (21:09)
[2017-08-17] MEDS: FAMOTIDINE 20 MG TAB PO SCH (21:10)
[2017-08-17] MEDS: TAMSULOSIN HCL 0.4 MG CAP PO SCH (21:12)
[2017-08-17] MEDS: METHENAMINE HIPPURATE 1 GM TAB PO SCH (21:12)
[2017-08-18 00:15] VITALS: BP 135/74; PULSE 62; TEMP 36.7; O2SAT 96
[2017-08-18] MEDS: INSULIN ASPART 100 UNITS/ML 3 ML PEN SC SCH ×3 (00:20→07:00)
[2017-08-18] MEDS: HYDROCORTISONE IV 50 MG in SYRINGE 0 ML IV SCH ×2 (00:42→08:45)
[2017-08-18] MEDS: ACETAMINOPHEN 500 MG TAB PO SCH ×2 (00:42→06:21)
[2017-08-18 03:51] VITALS: BP 154/98; PULSE 72; TEMP 36.8; O2SAT 99
[2017-08-18] MEDS ORDERED: [UNRECOGNIZED DRUG - OTHER] SCH (06:00)
[2017-08-18] MEDS: HEPARIN SOD 5000 UNIT/0.5 ML CARP SQ SCH (06:18)
[2017-08-18] MEDS: CEFEPIME IV 1,000 MG in SYRINGE 0 ML IV SCH (06:20)
--- NOTE | 2017-08-18 06:29 | Progress Note ---
Subjective Date of Service: Aug 17, 2017. Subjective Pt evaluation today including: conversation w/ patient, physical exam, chart review, lab review, review of studies, review of inpatient medication list Voiding: gomez catheter in place Pt is seen and examined by me. Pt denies cp, sob, dizziness, palpitation and loss of consciousness. Pt denies nausea, vomiting, diarrhea and abdominal pain.Pt seem little upset on the aids. Problem List Medical Problems: (1) Acute on chronic renal failure Status: Acute (2) Altered mental status Status: Acute (3) Coagulopathy Status: Acute (4) Confusion Status: Acute (5) Confusion Status: Acute (6) Fever Status: Acute (7) Fever Status: Acute (8) Forearm laceration Status: Acute (9) GI bleed Status: Acute (10) Hypoglycemia Status: Acute (11) Hypoglycemia Status: Acute (12) Hypoxia Status: Acute (13) Hypoxia Status: Acute (14) Influenza A Status: Acute (15) Lactic acidosis Status: Acute (16) Malfunction of Gomez catheter Status: Acute (17) Reactive airway disease Status: Acute (18) Respiratory distress Status: Acute (19) UTI (urinary tract infection) Status: Acute (20) Weakness Status: Acute Review of Systems All Other Systems: Reviewed and Negative Objective Vital Signs Date Time Temp Pulse Resp B/P (MAP) Pulse Ox O2 Delivery O2 Flow Rate FiO2 08/17/17 19:48 36.6 63 23 135/71 (92) 99 Nasal Cannula 3.0 08/17/17 16:00 Nasal Cannula 2.0 08/17/17 15:57 36.4 69 23 131/82 (98) 96 Room Air 08/17/17 12:00 Nasal Cannula 2.0 08/17/17 08:00 Nasal Cannula 2.0 08/17/17 07:12 37.1 67 20 130/70 (90) 100 Nasal Cannula 08/17/17 04:00 Nasal Cannula 2.0 08/17/17 03:49 36.7 67 19 107/63 (78) 98 Nasal Cannula 2.0 08/17/17 00:16 36.8 97 18 129/61 (83) 98 Nasal Cannula 2.0 08/16/17 23:59 Nasal Cannula 2.0 Physical Exam Comments: General Appearance: no apparent distress, + obese, Head: normocephalic, atraumatic Eyes: PERRL, sclerae normal Neck: supple, no adenopathy, thyroid normal, no JVD, no carotid bruits Respiratory/Chest: lungs clear, no respiratory distress, no accessory muscle use Cardiovascular: regular rate, rhythm, no gallop, no murmur, normal peripheral pulses Abdomen/GI: normal bowel sounds, non tender, soft, no organomegaly Extremities/Musculoskelatal: no pedal edema Neurologic/Psych: AAox3 , no focal neuro deficits. Skin: + pertinent finding (left 2nd toe - minimal ulcer on dorsal surface with scant drainage) Lymphatic: no adenopathy (no cervical LAD) Laboratory Results Last 24 Hours Test 08/17/17 01:59 08/17/17 06:27 08/17/17 06:29 08/17/17 11:39 Bedside Glucose 187 mg/dl 149 mg/dl 191 mg/dl Sodium Level 142 mmol/L Potassium Level 4.3 mmol/L Chloride Level 107 mmol/L Carbon Dioxide Level 29 mmol/L Anion Gap 6.0 mmol/L Blood Urea Nitrogen 20 mg/dl Creatinine 1.51 mg/dl Est Creatinine Clear Calc Drug Dose 42.9 ml/min Estimated GFR () 47.4 Estimated GFR (Non- 40.9 BUN/Creatinine Ratio 13.5 Random Glucose 147 mg/dl Calcium Level 8.1 mg/dl Magnesium Level 2.7 mg/dl Test 08/17/17 16:41 08/17/17 21:03 Bedside Glucose 128 mg/dl 124 mg/dl Assessment and Plan This is the 10th admission in the last 12 months for this pleasant 87yo male with PMH significant for chronic hypoxic respiratory failure on home O2, chronic gomez use x 9 months, T2DM, chronic systolic/diastolic CHF, COPD, adrenal insufficiency, CKD stage 3-4, recurrent episodes of aspiration, h/o DVT , recent GI bleeding with discontinuation of anticoagulation, and recurrent UTIs. He was just hospitalized for acute/chronic CHF & COPD exacerbation and d/ c back to SNF on 08/14/17. Today he is presenting with altered mental status & hypoglycemia along with mild lactic acidosis. Etiology of his presentation today is uncertain. 1. Encephalopathy - uncertain etiology. Likely metabolic due to the known hypoglycemia and lactic acidosis. Infection is high on the differential but no obvious source on exam or labs. CXR w/o obvious pneumonia. U/a largely wnl. Now somewhat resolved completely, back to his baseline surprisingly * cefepime/vancomycin IV while awaiting blood/urine cx's; cover for at least 48 hours * flu PCR in the event rapid flu was falsely negative * check ammonia and B12 levels * frequent blood sugar checks in light of recent hypoglycemia If no infection is found other possibilities include - * seizure (from the hypoglycemia) with post-ictal state * TIA vs stroke due to h/o PAF and not being on anticoagulation Could consider MRI to r/o stroke if infectious/metabolic w/u is negative. 2. hypoglycemia in setting of T2DM -pharmacy recommendation appreciated PLAN: * Basal insulin with LANTUS 20units SQ x 1 dose now then * BSG < 110mg/dl - 0 units * BSG 110-180 - 40 units * BSG > 180 - 50 units * Correctional Insulin with NOVOLOG per scale ACHS or Q6hrs while NPO * Goal Range: Low 120 mg/dL - High 150 mg/dL - to prevent hypoglycemia in setting of encephalopathy * Correction Factor: 25 mg/dL/unit * Nutritional / Prandial insulin per carb ratio of 1 unit per 8 grams CHO consumed 3. FEN - NPO until he awakens. NS hydration - 50cc/hr x 1 liter then saline lock (to avoid volume overload from CHF). Repeat BMP/mag in am. 4. chronic systolic/diastolic CHF - appears compensated; resume BB, lasix in AM. 5. adrenal insufficiency - was given hydrocortisone 100mg IV x 1 in ER for stress dose purposes in light of low glucose & possible infection. Will cont stress dose steroids with hydrocortisone 50mg IV q8h. Once improving quickly taper over a few days to home doses. Cont florinef. 6. chronic gomez catheter usage - noted; continue current gmoez. Will need to check to see when it was last changed. 7. chronic hypoxic resp failure - on home o2 - continue such, o2 sats in low 90s are acceptable. 8. CAD with prior h/o [place] - check serial troponins to r/o an ACS but doubt. 9. COPD - not in exacerbation at this time. 10. CKD stage 3-4 - creatinine is stable/at baseline today; BMP in am. 11. anemia - H/H are stable; in fact slightly higher than baseline, perhaps modestly hemoconcentrated today. 12. DVT proph - heparin TID. 13. h/o stroke - noted; see discussion in #1 above. patient's confirms level 5 DNR this is patient's 10th hospital stay in 12 months - strongly consider palliative care consultation here or as outpatient to discuss goals of care Continued [facility] stay due to: multiple IV medications needed Discharge planning: halfway facility
[2017-08-18 07:33] LABS: CREATININE 1.27 mg/dl (0.60-1.40)
[2017-08-18] MEDS: FLUTICASONE PROPIONATE NA SPR 16 GM BTL NAE SCH (08:46)
[2017-08-18] MEDS: FLUTICASONE/SALMETEROL 250/50 (ADVAIR) 14 PUFF/1 INHALER INH SCH (08:46)
[2017-08-18] MEDS: ARTIFICIAL TEARS OP SOLN OP SCH (08:47)
[2017-08-18] MEDS: CEROVITE ADV FORMULA TAB PO SCH (08:47)
[2017-08-18] MEDS: DULOXETINE HCL 60 MG CAP PO SCH (08:47)
[2017-08-18] MEDS: DOCUSATE SODIUM 100 MG CAP PO SCH (08:47)
[2017-08-18] MEDS: MAGNESIUM OXIDE 400 MG TAB PO SCH (08:48)
[2017-08-18] MEDS: PANTOprazole SOD 40 MG TAB PO SCH (08:49)
[2017-08-18] MEDS: FLUDROCORTISONE ACETATE 0.1 MG TAB PO SCH (08:49)
[2017-08-18] MEDS: FUROSEMIDE 40 MG TAB PO SCH (08:50)
[2017-08-18] MEDS: POLYETHYLENE (MIRALAX) 17 GM PACK PO SCH (08:50)
[2017-08-18] MEDS: ASPIRIN 81 MG CHEW PO SCH (08:55)
[2017-08-18] MEDS: BISACODYL 5 MG TABEC PO SCH (08:55)
--- NOTE | 2017-08-18 08:56 | Discharge Instructions ---
Discharge Instructions Date of Service Aug 18, 2017. Admission Reason for Admission: Altered Mental Status Discharge Discharge Diagnosis / Problem: metabolic encephalopathy possible secondary to hyperglycemia Discharge Goals Goal(s): Decrease discomfort, Improve function, Increase independence, Improve disease control, Improve nutritional status, Diagnostic testing, Therapeutic intervention, Prevent Disease Progression Activity Recommendations Activity Limitations: as noted below Lifting Limitations: gradually increase as tolerated Exercise/Sports Limitations: rest today May Resume Sexual Activity: when tolerated Shower/Bathe: no limitations Driving or Machine Use: . Current Hospital Diet Patient's current hospital diet: Diabetes Type 2 Diet, AHA Diet (Heart Healthy) Discharge Diet Recommended Diet: AHA Diet (Heart Healthy), Diabetes Type 2 Diet Pending Studies Studies pending at discharge: no Laboratory Results Hemoglobin A1c Test 08/18/17 06:37 Range/Units Medical Emergencies . Who to Call and When: Medical Emergencies: If at any time you feel your situation is an emergency, please call 911 immediately. . Non-Emergent Contact Non-Emergency issues call your: Primary Care Provider Call Non-Emergent contact if: temperature is above 101, your pain is not controlled, you have any medication questions . . "Provider Documentation" section prepared by Kandace Aguilar . VTE Core Measure Inpt VTE Proph given/why not?: Unfractionated heparin SQ
--- NOTE | 2017-08-18 09:05 | Discharge Summary ---
Discharge Summary Date of Service Aug 18, 2017. Discharge Summary Admission Date: Aug 16, 2017 at 13:48 Discharge Date: Aug 18, 2017 Discharge Disposition: Home Principal Diagnosis: Encephalopathy metabolic, with hypoglycemia Immunizations: Have You Had Influenza Vaccine: Yes Influenza Vaccine Date: Jun 08, 2013 History of Tetanus Vaccine?: Unknown History of Pneumococcal: Yes History of Hepatitis B Vaccine: Unknown Medication Reconciliation Continued Medications: Acetaminophen (Tylenol) 500 Mg Tab 1000 MG PO Q12 TAKE AT 0800 & 2000 Aspirin (Aspirin Chewable) 81 Mg Chew 81 MG PO QAM Atenolol (Tenormin) 25 Mg Tab 12.5 MG PO QAM Atorvastatin (Lipitor) 20 Mg Tab 20 MG PO HS Bisacodyl (Bisacodyl) 5 Mg Tab 5 MG PO BID Cyanocobalamin (B-12) 1,000 Mcg Tab 1000 MCG PO QAM Docusate Sodium (Colace) 100 Mg Cap 100 MG PO BID Duloxetine Hcl (Cymbalta) 60 Mg Cap 60 MG PO QAM Dutasteride (Dutasteride) 0.5 Mg Cap 0.5 MG PO DAILY Famotidine (Famotidine) 20 Mg Tab 20 MG PO HS Fiber Laxative (Fiber Laxative) Ea 1 TAB PO DAILY Fludrocortisone Acetate (Florinef) 0.1 Mg Tab 0.1 MG PO BID Fluticasone Prop/Salmeterol (Advair Diskus 250/50 60 Dose) 1 Ea Aerp 1 PUFF INH BID Fluticasone Propionate (Fluticasone Propionate) 120 Sprays/6000 Mcg Inha 2 SPRAYS HEVER QAM Furosemide (Furosemide) 40 Mg Tab 40 MG PO QAM for 30 Days, #30 TAB Gabapentin (Gabapentin) 800 Mg Tab 800 MG PO TID TAKEN ALONG WITH A 100 MG CAPSULE TID TO = 900 MG TID Gabapentin (Neurontin) 100 Mg Cap 100 MG PO TID TAKEN ALONG WITH AN 800 MG CAPSULE TID TO = 900 MG TID Guaifenesin Ext Rel (Mucinex Ext Rel) 600 Mg Tabcr 1200 MG PO Q12 Hydrocortisone (Cortef) 10 Mg Tab 20 MG PO BID for 14 Days, #28 TAB Insulin Aspart 70/30 (Novolog Mix 70/30) Susp 10 UNITS SQ QPM Insulin Aspart Protamine & Asp (Novolog Mix 70/30) 1 Inj Inj 25 UNITS SQ QAM Insulin Detemir (Levemir) 100 Units/Ml Inj 60 UNITS SQ PM Levalbuterol (Levalbuterol HCl) 0.63 Mg/3 Ml Nebu 1 VIAL NEB BID AND ALSO, EVERY 4 HOURS NEEDED FOR WHZ/SOB Lidocaine (Lidocaine) 1 Patch Tdsy 1 PATCH TOP ONAMOFFPM Magnesium Oxide (Mag-Ox) 400 Mg Tab 400 MG PO BID Methenamine Hippurate (Methenamine Hippurate) 1 Gm Tab 1 GM PO HS Metolazone (Zaroxolyn) 2.5 Mg Tab 2.5 MG PO DAILY PRN for WEIGHT GAIN Multiple Vitamins W/ Minerals (Therems M) 1 Tab Tab 1 TAB PO QAM Nitroglycerin (Nitrostat) 0.4 Mg Tab 0.4 MG UT PRN Omeprazole (Prilosec) 20 Mg Capcr 20 MG PO QAM Oxycodone Hcl (Oxycontin) 15 Mg Tab 15 MG PO Q12 for 5 Days, #10 DOSE Polyethylene Glycol 3350 (Miralax) 1 Pow Pow 17 GM PO BID, GM Polyethylene Glycol-Propylene (Systane Ultra) 1 Idania Idania 1 DROPS OPB BID Potassium Chloride (K-Tab) 20 Meq Tab 40 MEQ PO BID @ 1200 AND 2000 Potassium Ext Rel (Klor-Con) 20 Meq Tabcr 60 MEQ PO QAM Simethicone (Cvs Gas Relief) 80 Mg Chw 1 TAB PO QID PRN for Indigestion Tamsulosin Hcl (Flomax) 0.4 Mg Cap 0.4 MG PO HS Trolamine Salicylate (Aspercreme) 10 % Lot 0 TOP BID PRN for ARTHRITIS Discharge Exam Review of Systems: Constitutional: No fever, No chills Respiratory: No cough, No sputum, No wheezing Abdomen: No pain, No nausea, No vomiting, No diarrhea Neurologic: No memory loss, No paralysis, No weakness Psychiatric: No depression symptoms Endocrine: No fatigue, No excessive thirst Integumentary: No rash Physical Exam: General Appearance: WD/WN, no apparent distress Eyes: EOMI Neck: supple, no adenopathy, no JVD Respiratory/Chest: chest non-tender, lungs clear, normal breath sounds, no respiratory distress Cardiovascular: regular rate, rhythm, no murmur Abdomen / GI: normal bowel sounds, non tender, soft 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: 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 He was just hospitalized for acute/chronic CHF & COPD exacerbation and d/ c back to SNF on 08/14/17. Today he is presenting with altered mental status & hypoglycemia along with mild lactic acidosis. Etiology of his presentation today is uncertain. 1. Encephalopathy - uncertain etiology. Likely metabolic due to the known hypoglycemia and lactic acidosis. Infection is high on the differential but no obvious source on exam or labs. CXR w/o obvious pneumonia. U/a largely wnl. Now resolved completely, back to his baseline. * cefepime/vancomycin IV while awaiting blood/urine cx's; cover for at least 48 hours-- blood cultures negative and Ucx is mix ale. no need to further treat with antibiotics. * flu PCR in the event rapid flu was falsely negative * ammonia and B12 levels checked and within normal reference ranges * frequent blood sugar checks in light of recent hypoglycemia If no infection is found other possibilities include - * seizure (from the hypoglycemia) with post-ictal state-- less likely * TIA vs stroke due to h/o PAF and not being on anticoagulation Could consider MRI to r/o stroke if infectious/metabolic w/u is negative. 2. hypoglycemia in setting of T2DM -pharmacy recommendation appreciated PLAN: * Basal insulin with LANTUS 20units SQ x 1 dose now then * BSG < 110mg/dl - 0 units * BSG 110-180 - 40 units * BSG > 180 - 50 units * Correctional Insulin with NOVOLOG per scale ACHS or Q6hrs while NPO * Goal Range: Low 120 mg/dL - High 150 mg/dL - to prevent hypoglycemia in setting of encephalopathy * Correction Factor: 25 mg/dL/unit * Nutritional / Prandial insulin per carb ratio of 1 unit per 8 grams CHO consumed 3. FEN - NPO until he awakens. NS hydration - 50cc/hr x 1 liter then saline lock (to avoid volume overload from CHF). Repeat BMP/mag in am. 4. chronic systolic/diastolic CHF - appears compensated; resume BB, lasix in AM. 5. Adrenal insufficiency - was given hydrocortisone 100mg IV x 1 in ER for stress dose purposes in light of low glucose & possible infection. Will discontinue stress dose steroids with hydrocortisone 50mg IV q8h. no need to taper will continue home dose on discharge, Cont florinef. 6. chronic gomez catheter usage - noted; continue current gomez. Will need to check to see when it was last changed. 7. chronic hypoxic resp failure - on home o2 - continue such, o2 sats in low 90s are acceptable. 8. CAD with prior h/o [place] - check serial troponins to r/o an ACS but doubt. 9. COPD - not in exacerbation at this time. 10. CKD stage 3-4 - creatinine is stable/at baseline today; BMP in am. 11. anemia - H/H are stable; in fact slightly higher than baseline, perhaps modestly hemoconcentrated today. 12. DVT proph - heparin TID. 13. h/o stroke - noted; see discussion in #1 above. patient's confirms level 5 DNR this is patient's 10th hospital stay in 12 months - strongly consider palliative care consultation here or as outpatient to discuss goals of care --D/c today Total Time Spent: Greater than 30 minutes This includes examination of the patient, discharge planning, medication reconciliation, and communication with other providers. Discharge Instructions Please refer to the electronic Patient Visit Report (Discharge Instructions) for additional information.
[2017-08-18 09:16] VITALS: BP 132/73; PULSE 96; O2SAT 94
[2017-08-18 10:37] VITALS: BP 132/73; PULSE 96; TEMP 36.8; O2SAT 94
--- NOTE | 2017-08-18 12:07 | Pharmacy Progress Note ---
Pharmacy Glycemic Short Note 2 Date of Service Aug 18, 2017. OUTPATIENT ANTIDIABETIC REGIMEN: * Levemir 60 units HS * Novolog 70/30 25 units AM, 10 units PM Test 08/17/17 16:41 08/17/17 21:03 08/18/17 00:13 08/18/17 03:53 Bedside Glucose 128 mg/dl (70-99) 124 mg/dl (70-99) 93 mg/dl (70-99) 107 mg/dl (70-99) Test 08/18/17 06:44 08/18/17 11:20 Bedside Glucose 109 mg/dl (70-99) 120 mg/dl (70-99) ASSESSMENT: * Pt with multiple admissions recently, encephalopathy and hypoglycemia - likely contributing * Medications managed by [facility] - skilled - pt does not know his doses - see discharge recommendations * Pt only required 42 total units of insulin yesterday with BSGs at goal. * Pt to discharge back to [facility] now PLAN FOR DISCHARGE: * Continue Novolog 70/30 - 25 units with breakfast and 10 units with dinner * Decrease Levemir to 20 units HS
--- NOTE | 2017-08-19 13:57 | Pharmacy Progress Note ---
ED Pharmacist Culture FollowUp Date of Service: Aug 19, 2017. Patient was admitted and then discharged prior to urine culture finalizing. Per inpatient provider notes, the patient received 48 hours of vanc and cefepime and did not require any further antibiotic treatment. Given the urine did not result until after discharge, I have faxed a copy of the result to the patient' s PCP Dr. Franco. The nurse stated she would call back if any further treatment was required.
== END 2017-08-18 12:37 | disposition home or self-care (01) ==
LOC: EDBD 10:24 → C.EDC 10:26 → C.2E 13:48 → ENRESERV 14:09
PROVIDERS: ADMIT Internal Medicine; ATTEND Internal Medicine
DX: G93.41 Metabolic encephalopathy (principal); E11.649 Type 2 diabetes mellitus with hypoglycemia without coma; R42 Dizziness and giddiness; R53.1 Weakness; J44.9 Chronic obstructive pulmonary disease, unspecified; I25.10 Atherosclerotic heart disease of native coronary artery without angina pectoris; I12.9 Hypertensive chronic kidney disease with stage 1 through stage 4 chronic kidney disease, or unspecified chronic kidney disease; N18.3 Chronic kidney disease, stage 3 (moderate); I50.40 Unspecified combined systolic (congestive) and diastolic (congestive) heart failure; E78.00 Pure hypercholesterolemia, unspecified; I25.2 Old myocardial infarction; E27.40 Unspecified adrenocortical insufficiency; N40.0 Benign prostatic hyperplasia without lower urinary tract symptoms; J96.11 Chronic respiratory failure with hypoxia; I73.9 Peripheral vascular disease, unspecified; G47.33 Obstructive sleep apnea (adult) (pediatric); Z86.73 Personal history of transient ischemic attack (TIA), and cerebral infarction without residual deficits; Z87.01 Personal history of pneumonia (recurrent); Z95.818 Presence of other cardiac implants and grafts; Z82.49 Family history of ischemic heart disease and other diseases of the circulatory system; Z87.891 Personal history of nicotine dependence; Z79.82 Long term (current) use of aspirin; Z79.4 Long term (current) use of insulin; Z87.440 Personal history of urinary (tract) infections; Z86.718 Personal history of other venous thrombosis and embolism

== ENCOUNTER → 2017-08-19 | Outpatient (CLI) | payer OTHER ==
[~2017-08-19] MED LIST changes: -IPRA1AER2 INH; +LDDP5 TOP; -LIDO1PAD2 TD; -MOML PO; -SODIENE PR
[2017-08-19 10:21] LABS: BLOOD UREA NITROGEN 19 mg/dl (7-18); CALCIUM 8.4 mg/dl (8.5-10.1); CARBON DIOXIDE 28 mmol/L (21-32); CREATININE 1.37 mg/dl (0.60-1.40); GLUCOSE 62 mg/dl (70-99); POTASSIUM 3.2 mmol/L (3.5-5.1); SODIUM 144 mmol/L (136-145)
== END | disposition home or self-care (01) ==
LOC: C.LABVPSUA 09:06
PROVIDERS: ATTEND Internal Medicine Critical Care Medicine
DX: I10 Essential (primary) hypertension (principal); N18.9 Chronic kidney disease, unspecified

== ENCOUNTER → 2017-08-22 | Outpatient (CLI) | payer OTHER ==
[~2017-08-22] MED LIST changes: +CEFD1CAP14 PO; +DOXY-300 PO; +FRS/40 PO; +HYDR20TA PO; +PRED10TA PO; +SPRIN/30 INH
== END | disposition home or self-care (01) ==
LOC: C.LABVPSUA 10:04
PROVIDERS: ATTEND Internal Medicine Critical Care Medicine
DX: Z22.39 Carrier of other specified bacterial diseases (principal); N39.0 Urinary tract infection, site not specified

== ENCOUNTER 2017-08-28 20:12 | Inpatient (IN) | payer OTHER ==
[~2017-08-28] VITALS: Ht 188 cm; Wt 99.7 kg
[~2017-08-28 20:12] MED LIST changes: -CEFD1CAP14 PO; -DOXY-300 PO; -FRS/40 PO; -HYDR20TA PO; -PRED10TA PO; -SPRIN/30 INH
[2017-08-28] MEDS ORDERED: FUROSEMIDE 40 MG/4 ML VIAL IV STA (20:41)
[2017-08-28] MEDS ORDERED: METHYLPREDNISOLONE 125 MG VIAL IV STA (20:41)
[2017-08-28] MEDS ORDERED: ALBUT/IPRATROP 3MG/0.5MG NEB 3 ML VIAL INH ONE (20:45)
[2017-08-28] MEDS ORDERED: ACETAMINOPHEN IV 100 ML IV STA (20:47)
--- NOTE | 2017-08-28 21:03 | EMERGENCY ROOM VISIT NOTE ---
History Report prepared by Jordynibjustyna: Virginia Kumar Under the Supervision of: Dr. John Shine M.D. First contact with patient: 20:27 Chief Complaint: SHORTNESS OF BREATH Stated Complaint: SOB, FEVER, COUGH, BODY ACHES Nursing Triage Summary: SOB. Chills. Fever. Not feeling wel all day. History of Present Illness The patient is an 87 year old male who presents to the Emergency Room with complaints of persistent shortness of breath since yesterday. Per family, the patient's breathing is more labored than normal. He reports recent water weight gain. Per family, the patient may have gained three pounds. Per family, the patient was doing well the day before last. He notes a fever, though denies any nausea, vomiting, or diarrhea. He has a history of CHF and COPD. He has a history of smoking and quit three years ago. He normally wears 2L oxygen via [place] at home. He is currently taking aspirin and diuretics. The patient wears a Ball catheter. Source of History: patient, family Onset: since yesterday Position: other (global ) Quality: other (shortness of breath) Timing: other (persistent) Associated Symptoms: + fevers, No nausea, No vomiting, No diarrhea Note: He notes weight gain. Review of Systems See HPI for pertinent positives and negatives. A total of ten systems were reviewed and were otherwise negative. Past Medical & Surgical Medical Problems: (1) Acute exacerbation of CHF (congestive heart failure) (2) Acute on chronic respiratory failure with hypoxia and hypercapnia (3) Acute renal failure (4) Altered mental status (5) Anemia (6) Aspiration pneumonia (7) Asthma (8) Bilateral pneumonia (9) chronic kidney disease (10) Chronic pain (11) COPD (chronic obstructive pulmonary disease) (12) Coronary artery disease (13) CVA (cerebrovascular accident) (14) Essential hypertension (15) HTN (hypertension) (16) Hx of diabetes mellitus (17) Hypercholesterolemia (18) Hyperparathyroidism (19) Hypotension (20) Influenza A (21) Lower GI bleed (22) Lung nodules (23) UT (myocardial infarction) (24) Peripheral vascular disease (25) Staphylococcus aureus pneumonia (26) TIA (transient ischemic attack) (27) Urinary retention (28) Urosepsis Surgical Problems: (1) H/O heart artery stent Family History FH: heart disease Hypertension Social History Smoking Status: Never Smoker Smokeless Tobacco Use: No Alcohol Use: occasionally Drug Use: none Marital Status: Housing Status: assisted living Occupation Status: retired Current/Historical Medications Scheduled Acetaminophen (Tylenol), 1,000 MG PO Q12 Aspirin (Aspirin Chewable), 81 MG PO QAM Atenolol (Tenormin), 12.5 MG PO QAM Atorvastatin (Lipitor), 20 MG PO HS Bisacodyl (Bisacodyl), 5 MG PO BID Cyanocobalamin (B-12), 1,000 MCG PO QAM Docusate Sodium (Colace), 100 MG PO BID Duloxetine Hcl (Cymbalta), 60 MG PO QAM Dutasteride (Dutasteride), 0.5 MG PO DAILY Famotidine (Famotidine), 20 MG PO HS Fiber Laxative (Fiber Laxative), 1 TAB PO DAILY Fludrocortisone Acetate (Florinef), 0.1 MG PO BID Fluticasone Prop/Salmeterol (Advair Diskus 250/50 60 Dose), 1 PUFF INH BID Fluticasone Propionate (Fluticasone Propionate), 2 SPRAYS HEVER QAM Furosemide (Lasix), 40 MG PO DAILY Gabapentin (Gabapentin), 800 MG PO TID Gabapentin (Neurontin), 100 MG PO TID Guaifenesin Ext Rel (Mucinex Ext Rel), 1,200 MG PO Q12 Hydrocortisone (Cortef), 20 MG PO BID Insulin Aspart 70/30 (Novolog Mix 70/30), 10 UNITS SQ QPM Insulin Aspart Protamine & Asp (Novolog Mix 70/30), 25 UNITS SQ QAM Insulin Detemir (Levemir), 60 UNITS SQ PM Levalbuterol (Levalbuterol HCl), 1 VIAL NEB BID Lidocaine (Lidocaine), 1 PATCH TOP ONAMOFFPM Magnesium Oxide (Mag-Ox), 400 MG PO BID Methenamine Hippurate (Methenamine Hippurate), 1 GM PO HS Multiple Vitamins W/ Minerals (Therems M), 1 TAB PO QAM Nitroglycerin (Nitrostat), 0.4 MG UT PRN Omeprazole (Prilosec), 20 MG PO QAM Oxycodone Hcl (Oxycontin), 15 MG PO Q12 Polyethylene Glycol 3350 (Miralax), 17 GM PO BID Polyethylene Glycol-Propylene (Systane Ultra), 1 DROPS OPB BID Potassium Chloride (K-Tab), 40 MEQ PO BID Potassium Ext Rel (Klor-Con), 60 MEQ PO QAM Tamsulosin Hcl (Flomax), 0.4 MG PO HS Scheduled PRN Metolazone (Zaroxolyn), 2.5 MG PO DAILY PRN for WEIGHT GAIN Simethicone (Cvs Gas Relief), 1 TAB PO QID PRN for Indigestion Trolamine Salicylate (Aspercreme), 0 TOP BID PRN for ARTHRITIS Allergies Coded Allergies: No Known Allergies (Unverified , 08/28/17) Physical Exam Vital Signs Date Time Temp Pulse Resp B/P (MAP) Pulse Ox O2 Delivery O2 Flow Rate FiO2 08/28/17 22:42 102 23 111/77 91 Nasal Cannula 4.0 08/28/17 22:00 103 104/62 99 BiPAP 40 08/28/17 21:32 105 135/76 98 BiPAP 40 08/28/17 21:19 106 99 40 08/28/17 21:16 107 38 98 BiPAP/CPAP 40 08/28/17 21:09 104 08/28/17 20:51 93 Nasal Cannula 4.0 08/28/17 20:21 94 Nasal Cannula 4.0 08/28/17 20:17 39.1 105 194/107 93 Nasal Cannula 4.0 Physical Exam GENERAL: Awake, alert, in moderate respiratory distress HENT: Normocephalic, atraumatic. Oropharynx dry cracked mucus membranes. EYES: Normal conjunctiva. Sclera non-icteric. NECK: Supple. No nuchal rigidity. FROM. No JVD. RESPIRATORY: Diminished breath sounds at bases bilaterally with scattered wheezes and rhonchi. CARDIAC: Regular rate, normal rhythm. Extremities warm and well perfused. Pulses equal. 2/6 systolic murmur. ABDOMEN: Soft, non-distended. No tenderness to palpation. No rebound or guarding. No masses. RECTAL: Deferred. MUSCULOSKELETAL: Chest examination reveals no tenderness. The back is symmetrical on inspection without obvious abnormality. There is no CVA tenderness to palpation. No joint edema. LOWER EXTREMITIES: Calves are equal size bilaterally and non-tender. 2+ bilateral pitting edema. No discoloration. NEURO: Normal sensorium. No sensory or motor deficits noted. SKIN: No rash or jaundice noted. Medical Decision & Procedures ER Provider Diagnostic Interpretation: Radiology results as stated below per my review and radiologist interpretation: CHEST ONE VIEW PORTABLE CLINICAL HISTORY: Evaluate Fever/Sepsis dyspnea COMPARISON STUDY: 08/16/2017 FINDINGS: Chronic interstitial prominence throughout both hemithoraces. Slight progression of findings in the lung bases suggesting minimal superimposed inflammatory change. Pulmonary apices are clear. Mild stable cardia megaly. IMPRESSION: Small bibasilar parenchymal infiltrates superimposed upon chronic interstitial change. The above report was generated using voice recognition software. It may contain grammatical, syntax or spelling errors. Electronically signed by: Jaun Kim M.D. 08/28/2017 9:32 PM Dictated Date/Time: 08/28/2017 9:31 PM Laboratory Results 08/28/17 21:26 Red Blood Count 4.71, Mean Corpuscular Volume 80.5, Mean Corpuscular Hemoglobin 21.9, Mean Corpuscular Hemoglobin Concent 27.2, Mean Platelet Volume 9.6, Neutrophils (%) (Auto) 74.7, Lymphocytes (%) (Auto) 12.2, Monocytes (%) (Auto) 10.4, Eosinophils (%) (Auto) 1.7, Basophils (%) (Auto) 0.3, Neutrophils # (Auto ) 4.48, Lymphocytes # (Auto) 0.73, Monocytes # (Auto) 0.62, Eosinophils # (Auto ) 0.10, Basophils # (Auto) 0.02 08/28/17 21:26 Test 08/28/17 20:15 08/28/17 20:18 08/28/17 21:26 08/28/17 21:30 Influenza Type A Antigen Neg for Influ A (NEG) Influenza Type B Antigen Neg for Influ B (NEG) Influenza Type A (RT-PCR) Neg for Influ A (NEG) Influenza Type B (RT-PCR) Neg for Influ B (NEG) White Blood Count 5.99 K/uL (4.8-10.8) Red Blood Count 4.71 M/uL (4.7-6.1) Hemoglobin 10.3 g/dL (14.0-18.0) Hematocrit 37.9 % (42-52) Mean Corpuscular Volume 80.5 fL (80-100) Mean Corpuscular Hemoglobin 21.9 pg (25-34) Mean Corpuscular Hemoglobin Concent 27.2 g/dl (32-36) Platelet Count 185 K/uL (130-400) Mean Platelet Volume 9.6 fL (7.4-10.4) Neutrophils (%) (Auto) 74.7 % Lymphocytes (%) (Auto) 12.2 % Monocytes (%) (Auto) 10.4 % Eosinophils (%) (Auto) 1.7 % Basophils (%) (Auto) 0.3 % Neutrophils # (Auto) 4.48 K/uL (1.4-6.5) Lymphocytes # (Auto) 0.73 K/uL (1.2-3.4) Monocytes # (Auto) 0.62 K/uL (0.11-0.59) Eosinophils # (Auto) 0.10 K/uL (0-0.5) Basophils # (Auto) 0.02 K/uL (0-0.2) RDW Standard Deviation 60.1 fL (36.4-46.3) RDW Coefficient of Variation 20.4 % (11.5-14.5) Immature Granulocyte % (Auto) 0.7 % Immature Granulocyte # (Auto) 0.04 K/uL (0.00-0.02) Nucleated RBC Absolute Count (auto) 0.03 K/uL (0-0) Nucleated Red Blood Cells % 0.4 % Giant Platelets 1+ Polychromasia 1+ Anisocytosis PRESENT Microcytosis PRESENT Prothrombin Time 10.0 SECONDS (9.0-12.0) Prothromb Time International Ratio 1.0 (0.9-1.1) Venous Blood pH 7.37 (7.36-7.41) Venous Blood Partial Pressure CO2 58 mmHg (38.0-50.0) Venous Blood Partial Pressure O2 24 mmHg Venous Blood HCO3 33 mmol/L Venous Blood Oxygen Saturation < 60.0 % Venous Blood Base Excess 6.4 mEq/L Anion Gap 7.0 mmol/L (3-11) Est Creatinine Clear Calc Drug Dose 39.8 ml/min Estimated GFR () 41.4 Estimated GFR (Non- 35.7 BUN/Creatinine Ratio 9.9 (10-20) Lactic Acid Level 1.4 mmol/L (0.4-2.0) Calcium Level 8.5 mg/dl (8.5-10.1) Total Bilirubin 0.5 mg/dl (0.2-1) Direct Bilirubin 0.2 mg/dl (0-0.2) Aspartate Amino Transf (AST/SGOT) 27 U/L (15-37) Alanine Aminotransferase (ALT/SGPT) 27 U/L (12-78) Alkaline Phosphatase 100 U/L (45-117) Troponin I 0.104 ng/ml (0-0.045) Pro-B-Type Natriuretic Peptide 1715 pg/ml (0-1800) Total Protein 7.6 gm/dl (6.4-8.2) Albumin 3.3 gm/dl (3.4-5.0) Lipase 62 U/L (73-393) Urine Color YELLOW Urine Appearance CLEAR (CLEAR) Urine pH 5.0 (4.5-7.5) Urine Specific [place] 1.007 (1.000-1.030) Urine Protein NEG (NEG) Urine Glucose (UA) NEG (NEG) Urine Ketones NEG (NEG) Urine Occult Blood NEG (NEG) Urine Nitrite NEG (NEG) Urine Bilirubin NEG (NEG) Urine Urobilinogen NEG (NEG) Urine Leukocyte Esterase TRACE (NEG) Urine WBC (Auto) 1-5 /hpf (0-5) Urine RBC (Auto) 0-4 /hpf (0-4) Urine Hyaline Casts (Auto) 1-5 /lpf (0-5) Urine Epithelial Cells (Auto) 5-10 /lpf (0-5) Urine Bacteria (Auto) NEG (NEG) Laboratory results reviewed by me Medications Administered Medications (Trade) Dose Ordered Sig/Cole Route Start Time Stop Time Status Last Admin Dose Admin Albuterol/ Ipratropium (Duoneb) 12 ml ONE ONCE INH 08/28/17 20:45 08/28/17 20:48 DC 08/28/17 21:11 12 ML Methylprednisolone Sodium Succinate (Solu-Medrol IV) 125 mg NOW STAT IV 08/28/17 20:41 08/28/17 20:48 DC 08/28/17 21:07 125 MG Furosemide (Lasix Inj) 40 mg NOW STAT IV 08/28/17 20:41 08/28/17 20:48 DC 08/28/17 21:09 40 MG Acetaminophen 100 ml @ 400 mls/hr NOW STAT IV 08/28/17 20:47 08/28/17 21:01 DC 08/28/17 21:10 400 MLS/HR ECG Per My Interpretation Indication: SOB/dyspnea Rate (beats per minute): 130 Rhythm: sinus tachycardia Findings: RBBB (incomplete), left axis deviation, other (Baseline artifact.) Change: no significant change (when compared to 08/16/2017) Change: Patient's electrocardiogram interpreted by me. ED Course 2040: The patient was evaluated in room A9B. A complete history and physical exam was performed. 2235: I spoke with Dr. Gross, [facility] hospitalist. We discussed the patient's case. The patient will be evaluated by the [facility] for further management. 2246: I reassessed the patient at this time. We took him off BiPAP and the patient did not do well. He was placed back on BiPAP. I discussed the results and treatment plan with the patient. I answered all pertaining questions that he had. He expressed understanding and verbalized agreement. The patient will be further evaluated. Medical Decision I reviewed the patient's past medical history, medications, and the nursing notes as described above. Differential diagnosis: Etiologies such as infections, reactive airway disease, pneumonia, pneumothorax , COPD, CHF, cardiac ischemia, pulmonary embolism, musculoskeletal, gastrointestinal, as well as others were entertained. The patient is an 87-year-old gentleman with a past medical history of COPD and CHF on 2 L home O2 who presents emergency Department with worsening cough congestion and shortness of breath per hpi. On arrival the patient is in moderate respiratory distress 's respiratory rate in the 30s, oxygen saturation low 90s on 5 L, patient with significant increased work of breathing. Temp 39.1 , HR 100s, SBP 190s. On exam the patient has diminished breath sounds at the bases with scattered wheezes and rhonchi. I explained to the patient and his his concerning presentation and that it will be recommended that he be admitted for further management. Both the patient and his were agreeable. The patient was placed on BiPAP for his work of breathing and given continuous neb, steroids, Lasix. Labs consistent with mixed picture for his respiratory failure. CO2 58 and BNP 1700s slightly increased from prior. Chest x-ray with question of superimposed interstitial infiltrates and so given the patient's fever and worsening respiratory status concerning for pneumonia. Initially ordered for Levaquin however given the patient's recent hospitalizations will treat with broad-spectrum antibiotics with vancomycin and cefepime with azithromycin for additional atypical coverage. Case was discussed with TIR[facility] Mendez hospitalist who will admit the patient for further management. Of note I was made aware by Dr. Gross that the patient has a [employer] form, however the details of limitations are unclear, for instance, as antibiotics are permitted in certain situations, and moreover, upon arrival the patient and his were agreeable for admission and treatment. Medication Reconcilliation Current Medication List: was personally reviewed by me Blood Pressure Screening Patient's blood pressure: Elevated blood pressure Blood pressure disposition: Elevated BP felt to be situational Consults Time Called: 2220 Consulting Physician: TIR[facility] Mendez hospitalist Returned Call: 2235 I spoke with TIRSO Mendez hospitalist. We discussed the patient's case. The patient will be evaluated by the [facility] for further management. Impression Primary Impression: Acute on chronic respiratory failure with hypoxia and hypercapnia Additional Impressions: Pneumonia COPD exacerbation Acute exacerbation of CHF (congestive heart failure) Critical Care I have personally spent greater than 90 minutes of critical care time in the direct management of this patient. This includes bedside care, interpretation of diagnostic studies, and testing, discussion with consultants, patient, and family members, and other required patient management activities. This 90 minutes is in excess of all separately billable procedures. Scribe Attestation The scribe's documentation has been prepared under my direction and personally reviewed by me in its entirety. I confirm that the note above accurately reflects all work, treatment, procedures, and medical decision making performed by me. Departure Information Dispostion Being Evaluated By Hospitalist Referrals [facility] (PCP) Patient Instructions My [facility] Problem Qualifiers
[2017-08-28 21:16] VITALS: PULSE 107; O2SAT 98
[2017-08-28 21:19] VITALS: PULSE 106; O2SAT 99
[2017-08-28] MEDS ORDERED: OXYC15TA89 PO (21:31)
[2017-08-28] MEDS ORDERED: FRS/40 PO (21:31)
[2017-08-28] MEDS ORDERED: HYDR20TA PO (21:31)
--- NOTE | 2017-08-28 21:33 | DIAGNOSTIC IMAGING REPORT ---
CHEST ONE VIEW PORTABLE CLINICAL HISTORY: Evaluate Fever/Sepsis dyspnea COMPARISON STUDY: 08/16/2017 FINDINGS: Chronic interstitial prominence throughout both hemithoraces. Slight progression of findings in the lung bases suggesting minimal superimposed inflammatory change. Pulmonary apices are clear. Mild stable cardia megaly. IMPRESSION: Small bibasilar parenchymal infiltrates superimposed upon chronic interstitial change. The above report was generated using voice recognition software. It may contain grammatical, syntax or spelling errors. Electronically signed by: Jaun Kim M.D. 08/28/2017 9:32 PM Dictated Date/Time: 08/28/2017 9:31 PM
[2017-08-28 21:36] LABS: INFLUENZA B ANTIGEN Neg for Influ B (NEG)
[2017-08-28 21:41] LABS: HEMATOCRIT 37.9 % (42-52); HEMOGLOBIN 10.3 g/dL (14.0-18.0); MEAN CELL VOLUME 80.5 fL (80-100); MEAN CORPUSCULAR HEMOGLOBIN 21.9 pg (25-34); MEAN CORPUSCULAR HGB CONC 27.2 g/dl (32-36); MEAN PLATELET VOLUME 9.6 fL (7.4-10.4); NUCLEATED RED BLOOD CELL ABS 0.03 K/uL (0-0); PLATELET COUNT 185 K/uL (130-400); RED CELL DISTRIBUTION WIDTH CV 20.4 % (11.5-14.5); RED CELL DISTRIBUTION WIDTH SD 60.1 fL (36.4-46.3); WHITE BLOOD COUNT 5.99 K/uL (4.8-10.8)
[2017-08-28 21:53] LABS: ALBUMIN 3.3 gm/dl (3.4-5.0); CALCIUM 8.5 mg/dl (8.5-10.1); CREATININE 1.69 mg/dl (0.60-1.40); POTASSIUM 3.9 mmol/L (3.5-5.1)
[2017-08-28 22:02] LABS: TOTAL PROTEIN 7.6 gm/dl (6.4-8.2)
[2017-08-28] MEDS ORDERED: LEVAQUIN 750MG / 150ML D5W IV ONE (22:15)
[2017-08-28 22:17] LABS: BASO % 0.3 %; BASO ABS # 0.02 K/uL (0-0.2); EOS % 1.7 %; IG# 0.04 K/uL (0.00-0.02); LYMPH % 12.2 %; LYMPH ABS # 0.73 K/uL (1.2-3.4); MONO % 10.4 %; MONO ABS # 0.62 K/uL (0.11-0.59); NEUT % 74.7 %; NEUT ABS # 4.48 K/uL (1.4-6.5)
[2017-08-28] MEDS ORDERED: MAGNESIUM HYDROXIDE SUSP 30 ML UDC PO PRN (22:45)
[2017-08-28] MEDS ORDERED: ACETAMINOPHEN 325 MG TAB PO PRN (22:45)
[2017-08-28] MEDS ORDERED: ALUMINUM/MAGNESIUM/SIMETH (MAALOX MAX) 30 ML UDC PO PRN (22:45)
[2017-08-28] MEDS ORDERED: VANCOMYCIN CONSULT ACTIVE PRN (22:45)
[2017-08-28] MEDS ORDERED: ONDANSETRON INJ 2 MG/ML 2 ML VIAL IV PRN (22:45)
[2017-08-28] MEDS ORDERED: POLYETHYLENE (MIRALAX) 17 GM PACK PO PRN (22:45)
[2017-08-28] MEDS ORDERED: MoRPHine SULFATE 2 MG/ML CARP IV PRN (22:45)
[2017-08-28] MEDS ORDERED: NITROGLYCERIN 0.4 MG SL PER TAB CHARGE SL PRN (22:45)
[2017-08-28] MEDS ORDERED: CEFEPIME IV 1,000 MG in DEXTROSE 5% 100ML 100 ML IV STA (22:45)
[2017-08-28] MEDS ORDERED: SIMETHICONE 80 MG CHEW PO PRN (22:45)
[2017-08-28] MEDS ORDERED: VANCOMYCIN INJ 2,250 MG in SODIUM CHLORIDE 0.9% 500ML 500 ML IV STA (22:45)
[2017-08-28] MEDS ORDERED: AZITHROMYCIN IV 500 MG in DEXTROSE 5% 250ML 250 ML IV ONE (22:45)
[2017-08-28] MEDS ORDERED: LEVALBUTEROL 1.25MG/0.5ML NEB INH PRN (23:00)
--- NOTE | 2017-08-28 23:21 | History and Physical ---
History & Physical Date & Time of Service: Aug 28, 2017 at 22:47 Chief Complaint: Sob, Fever, Cough, Body Aches Primary Care Physician: Wilver Franco M.D. History of Present Illness Source: patient 86 y/o M w/Hx COPD, combined CHF, CAD, CKD 3-4, DM, chronic aspiration with recurrent PNM, adrenal insufficiency, chronic Ball w/recurrent UTIs, history of DVT. Resides in a nursing facility. Pt has been admitted to the hospital several times this yr for pneumonia due to aspiration CHF, UTIs, AMS and hypoglycemic episodes. He has exhibited a degree of functional decline over the past year. The pt was hypoxic and febrile on arrival to the ER, requiring BIPAP. His is present at bedside to inform us that his symptoms were of acute onset, included SOB and fever, and began this afternoon. An initial CXR is consistent with vascular congestion and superimposed BL infiltrates. 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 on echo Family History FH: heart disease Hypertension Social History Smoking Status: Never Smoker Drug Use: none Marital Status: Housing status: fdc Occupational Status: retired Immunizations History of Influenza Vaccine: Yes Influenza Vaccine Date: Jun 08, 2013 History of Tetanus Vaccine?: Unknown History of Pneumococcal: Yes History of Hepatitis B Vaccine: Unknown Multi-Drug Resistant Organisms History of MDRO: Yes Type of MDRO: VRE, MRSA Allergies Coded Allergies: No Known Allergies (Unverified , 08/28/17) Home Medications Scheduled Acetaminophen (Tylenol), 1,000 MG PO Q12 Aspirin (Aspirin Chewable), 81 MG PO QAM Atenolol (Tenormin), 12.5 MG PO QAM Atorvastatin (Lipitor), 20 MG PO HS Bisacodyl (Bisacodyl), 5 MG PO BID Cyanocobalamin (B-12), 1,000 MCG PO QAM Docusate Sodium (Colace), 100 MG PO BID Duloxetine Hcl (Cymbalta), 60 MG PO QAM Dutasteride (Dutasteride), 0.5 MG PO DAILY Famotidine (Famotidine), 20 MG PO HS Fiber Laxative (Fiber Laxative), 1 TAB PO DAILY Fludrocortisone Acetate (Florinef), 0.1 MG PO BID Fluticasone Prop/Salmeterol (Advair Diskus 250/50 60 Dose), 1 PUFF INH BID Fluticasone Propionate (Fluticasone Propionate), 2 SPRAYS HEVER QAM Furosemide (Lasix), 40 MG PO DAILY Gabapentin (Gabapentin), 800 MG PO TID Gabapentin (Neurontin), 100 MG PO TID Guaifenesin Ext Rel (Mucinex Ext Rel), 1,200 MG PO Q12 Hydrocortisone (Cortef), 20 MG PO BID Insulin Aspart 70/30 (Novolog Mix 70/30), 10 UNITS SQ QPM Insulin Aspart Protamine & Asp (Novolog Mix 70/30), 25 UNITS SQ QAM Insulin Detemir (Levemir), 60 UNITS SQ PM Levalbuterol (Levalbuterol HCl), 1 VIAL NEB BID Lidocaine (Lidocaine), 1 PATCH TOP ONAMOFFPM Magnesium Oxide (Mag-Ox), 400 MG PO BID Methenamine Hippurate (Methenamine Hippurate), 1 GM PO HS Multiple Vitamins W/ Minerals (Therems M), 1 TAB PO QAM Nitroglycerin (Nitrostat), 0.4 MG UT PRN Omeprazole (Prilosec), 20 MG PO QAM Oxycodone Hcl (Oxycontin), 15 MG PO Q12 Polyethylene Glycol 3350 (Miralax), 17 GM PO BID Polyethylene Glycol-Propylene (Systane Ultra), 1 DROPS OPB BID Potassium Chloride (K-Tab), 40 MEQ PO BID Potassium Ext Rel (Klor-Con), 60 MEQ PO QAM Tamsulosin Hcl (Flomax), 0.4 MG PO HS Scheduled PRN Metolazone (Zaroxolyn), 2.5 MG PO DAILY PRN for WEIGHT GAIN Simethicone (Cvs Gas Relief), 1 TAB PO QID PRN for Indigestion Trolamine Salicylate (Aspercreme), 0 TOP BID PRN for ARTHRITIS Review of Systems Cannot obtain from pt - per HPI brought to hospital for SOB and fever Physical Exam Vital Signs Date Time Temp Pulse Resp B/P (MAP) Pulse Ox O2 Delivery O2 Flow Rate FiO2 08/28/17 22:00 103 104/62 99 BiPAP 40 08/28/17 21:32 105 135/76 98 BiPAP 40 08/28/17 21:19 106 99 40 08/28/17 21:16 107 38 98 BiPAP/CPAP 40 08/28/17 21:09 104 08/28/17 20:51 93 Nasal Cannula 4.0 08/28/17 20:21 94 Nasal Cannula 4.0 08/28/17 20:17 39.1 105 194/107 93 Nasal Cannula 4.0 General Appearance: + pertinent finding (Overweight, agitated, elderly male - exhibits twitching and labored breathing) Head: normocephalic ENT: normal ENT inspection, + pertinent finding (Could not examine oral cavity ) Neck: + pertinent finding (cannot examine JVD due to habitus) Respiratory/Chest: chest non-tender, + crackles (There are likely crackles at the bases and genearally poor air movement is present) Cardiovascular: regular rate, rhythm, no murmur Abdomen/GI: normal bowel sounds, + pertinent finding (Pt has a chronically tender lower abdomen per multiple previous exams) Back: normal inspection, no CVA tenderness Extremities/Musculoskelatal: normal inspection, no calf tenderness, normal capillary refill Neurologic/Psych: + pertinent finding (Was able to answer brief questions at the time of arrival - cannot presently comply with neuro exam - moving all extrems and exhibiting twitching) Skin: normal color Diagnostics Laboratory Results Results Past 24 Hours Test 08/28/17 20:15 08/28/17 21:26 08/28/17 21:30 Range/Units Influenza Type A Antigen Neg for Influ A NEG Influenza Type B Antigen Neg for Influ B NEG White Blood Count 5.99 4.8-10.8 K/uL Red Blood Count 4.71 4.7-6.1 M/uL Hemoglobin 10.3 14.0-18.0 g/dL Hematocrit 37.9 42-52 % Mean Corpuscular Volume 80.5 80-100 fL Mean Corpuscular Hemoglobin 21.9 25-34 pg Mean Corpuscular Hemoglobin Concent 27.2 32-36 g/dl Platelet Count 185 130-400 K/uL Mean Platelet Volume 9.6 7.4-10.4 fL Neutrophils (%) (Auto) 74.7 % Lymphocytes (%) (Auto) 12.2 % Monocytes (%) (Auto) 10.4 % Eosinophils (%) (Auto) 1.7 % Basophils (%) (Auto) 0.3 % Neutrophils # (Auto) 4.48 1.4-6.5 K/uL Lymphocytes # (Auto) 0.73 1.2-3.4 K/uL Monocytes # (Auto) 0.62 0.11-0.59 K/uL Eosinophils # (Auto) 0.10 0-0.5 K/uL Basophils # (Auto) 0.02 0-0.2 K/uL RDW Standard Deviation 60.1 36.4-46.3 fL RDW Coefficient of Variation 20.4 11.5-14.5 % Immature Granulocyte % (Auto) 0.7 % Immature Granulocyte # (Auto) 0.04 0.00-0.02 K/uL Nucleated RBC Absolute Count (auto) 0.03 0-0 K/uL Nucleated Red Blood Cells % 0.4 % Giant Platelets 1+ Polychromasia 1+ Anisocytosis PRESENT Microcytosis PRESENT Prothrombin Time 10.0 9.0-12.0 SECONDS Prothromb Time International Ratio 1.0 0.9-1.1 Venous Blood pH 7.37 7.36-7.41 Venous Blood Partial Pressure CO2 58 38.0-50.0 mmHg Venous Blood Partial Pressure O2 24 mmHg Venous Blood HCO3 33 mmol/L Venous Blood Oxygen Saturation < 60.0 % Venous Blood Base Excess 6.4 mEq/L Sodium Level 139 136-145 mmol/L Potassium Level 3.9 3.5-5.1 mmol/L Chloride Level 101 98-107 mmol/L Carbon Dioxide Level 31 21-32 mmol/L Anion Gap 7.0 3-11 mmol/L Blood Urea Nitrogen 17 7-18 mg/dl Creatinine 1.69 0.60-1.40 mg/dl Est Creatinine Clear Calc Drug Dose 39.8 ml/min Estimated GFR () 41.4 Estimated GFR (Non- 35.7 BUN/Creatinine Ratio 9.9 10-20 Random Glucose 154 70-99 mg/dl Lactic Acid Level 1.4 0.4-2.0 mmol/L Calcium Level 8.5 8.5-10.1 mg/dl Total Bilirubin 0.5 0.2-1 mg/dl Direct Bilirubin 0.2 0-0.2 mg/dl Aspartate Amino Transf (AST/SGOT) 27 15-37 U/L Alanine Aminotransferase (ALT/SGPT) 27 12-78 U/L Alkaline Phosphatase 100 45-117 U/L Troponin I 0.104 0-0.045 ng/ml Pro-B-Type Natriuretic Peptide 1715 0-1800 pg/ml Total Protein 7.6 6.4-8.2 gm/dl Albumin 3.3 3.4-5.0 gm/dl Lipase 62 73-393 U/L Urine Color YELLOW Urine Appearance CLEAR CLEAR Urine pH 5.0 4.5-7.5 Urine Specific [place] 1.007 1.000-1.030 Urine Protein NEG NEG Urine Glucose (UA) NEG NEG Urine Ketones NEG NEG Urine Occult Blood NEG NEG Urine Nitrite NEG NEG Urine Bilirubin NEG NEG Urine Urobilinogen NEG NEG Urine Leukocyte Esterase TRACE NEG Urine WBC (Auto) 1-5 0-5 /hpf Urine RBC (Auto) 0-4 0-4 /hpf Urine Hyaline Casts (Auto) 1-5 0-5 /lpf Urine Epithelial Cells (Auto) 5-10 0-5 /lpf Urine Bacteria (Auto) NEG NEG Microbiology Results 08/28/17 Blood Culture, Received Pending 08/28/17 Blood Culture, Received Pending Diagnostic Radiology CXR: Chronic interstitial prominence throughout both hemithoraces. Slight progression of findings in the lung bases suggesting minimal superimposed inflammatory change - small BL infiltrates. Pulmonary apices are clear. Mild stable cardiomegaly. EKG Difficult to read due to artifact - likely SInus , L axis , RBBB - morphology is similar to a previous EKG Impression Assessment and Plan 86 y/o M w/Hx COPD - home 02, combined CHF, CAD, CKD 3-4, DM, chronic aspiration with recurrent PNM, adrenal insufficiency, chronic Ball w/recurrent UTIs, history of DVT. Resides in a nursing facility. Pt has been admitted to the hospital several times this yr for pneumonia due to aspiration CHF, UTIs, AMS and hypoglycemic episodes. He has exhibited a degree of functional decline over the past year. The pt was hypoxic and febrile on arrival to the ER, requiring BIPAP. His is present at bedside to inform us that his symptoms were of acute onset, included SOB and fever, and began this afternoon. An initial CXR is consistent with vascular congestion and superimposed BL infiltrates. 1) Hypoxia - multifactorial - resp failure - currently requiring BIPAP - received breathing treatments, IV lasix and an initial dose of antibiotics provided in the ER. His code status does not allow for intubation presently. 2) CHF - IV Lasix provided in ER - daily weights, I/O requested - cont B opal. 3) PNM - fever present - initial rapid flu is negative - prone to aspiration. Considering multiple recent admissions and findings on XR, we will treat to cover both aspiration and HCAP - Placed on Levaquin, Cefepime, Vanc pending culture results. Consider CT chest if flu PCR returns (+). A Procalcitonin is pending. 4) COPD - will be placed on Duonebs/Xopenex and IV steroids in addition to above antibiotics - no clear wheezing on exam, however, very poor air movement is present. 5) DM - placed on SS 6) CKD III - creat is currently above baseline - would expect improvement with diuresis if he is volume overloaded. Recheck BMP AM. 7) CAD - trop is elevated - per previous labs, this is likely chronic - he does have a history of CAD however. We will trend for AM - cont ASA, statin, B opal, PRN NTG. 8) Anemia - Hb is stable - note that he had a GI bleed of undetermined source and was anticoagulated before that time so would monitor for bleeding as he is placed on Heparin prophylaxis. 9) Adrenal insufficiency - placed on IV steroids for COPD - cont Fludrocortisone 10) Reg the pt's code status - he has a from signed in 2014 stating that he really only wants comfort measures. The ER MD was able to confirm that he wanted full treatment short of intubation when he arrived in the ER. His states that she wants full treatment. The form then needs to be revised or if it is confirmed that the pt want comfort measures only, the case needs to be referred to ethics in terms of future management and considering that we expect he will continue to require frequent admissions. DNR - Heparin prophylaxis Total time for this admit including review of extensive records, extensive medication list, imaging, EKG - discussion with ER attending and pt's - 50 min Level of Care Telemetry Resuscitation Status DO NOT RESUSCITATE VTE Prophylaxis VTE Risk Assessment Done? Y/N: Yes Risk Level: Moderate Given or contraindicated: Unfractionated heparin SQ
[2017-08-29] VITALS (12 sets, daily range): BP systolic 82–135; BP diastolic 36–81; PULSE 65–104; TEMP 36.4–37.1; O2SAT 93–99; Ht 188 cm; Wt 99.7 kg
[2017-08-29] MEDS ORDERED: VANCOMYCIN CONSULT ACTIVE PRN (00:15)
[2017-08-29 02:22] LABS: INFLUENZA A PCR Neg for Influ A (NEG); INFLUENZA B PCR Neg for Influ B (NEG)
[2017-08-29] MEDS ORDERED: GLUCAGON FOR INJ 1 MG VIAL SQ PRN (02:30)
[2017-08-29] MEDS ORDERED: DEXTROSE 50% 50 ML SYR IV PRN (02:30)
[2017-08-29] MEDS ORDERED: GLUCOSE 10 TABS/TUBE PO PRN (02:30)
[2017-08-29] MEDS ORDERED: GLUCOSE 40% GEL 15 GM TUBE PO PRN (02:30)
[2017-08-29] MEDS: ALBUT/IPRATROP 3MG/0.5MG NEB 3 ML VIAL INH SCH ×4 (03:00→19:05)
[2017-08-29] MEDS ORDERED: CEFEPIME CONSULT ACTIVE PRN (04:30)
[2017-08-29] MEDS: METHYLPREDNISOLONE IV 40 MG in SYRINGE 0 ML IV SCH ×4 (05:06→21:16)
[2017-08-29] MEDS: HEPARIN SOD 5000 UNIT/0.5 ML CARP SQ SCH ×3 (05:07→21:22)
[2017-08-29 05:15] LABS: HEMATOCRIT 31.4 % (42-52); HEMOGLOBIN 8.8 g/dL (14.0-18.0); MEAN CELL VOLUME 79.5 fL (80-100); MEAN CORPUSCULAR HEMOGLOBIN 22.3 pg (25-34); NUCLEATED RED BLOOD CELL ABS 0.02 K/uL (0-0); PLATELET COUNT 180 K/uL (130-400); RED CELL DISTRIBUTION WIDTH CV 20.4 % (11.5-14.5); WHITE BLOOD COUNT 4.61 K/uL (4.8-10.8)
[2017-08-29 05:38] LABS: CALCIUM 8.2 mg/dl (8.5-10.1); CREATININE 1.8 mg/dl (0.60-1.40); POTASSIUM 4.1 mmol/L (3.5-5.1)
[2017-08-29] MEDS ORDERED: INSULIN ASPART 100 UNITS/ML 3 ML PEN SC ONE (06:00)
[2017-08-29] MEDS ORDERED: INSULIN DETEMIR FLEXPEN/FLEX TOUCH 100 UNITS/ML 3ML SQ ONE ×2 (06:00→13:30)
[2017-08-29] MEDS ORDERED: PHARMACY GLYCEMIC MGMT CONSULT PRN (06:00)
--- NOTE | 2017-08-29 07:18 | DIAGNOSTIC IMAGING REPORT ---
CHEST ONE VIEW PORTABLE CLINICAL HISTORY: CHF, PNM follow -up COMPARISON STUDY: Chest CT August 08, 2017 and chest radiograph August 28, 2017. FINDINGS: There is no pneumothorax. Underlying emphysema is noted. There is no definite pleural effusion. Cardiomediastinal silhouette is stable. Nipple shadow projects over the left lower lung. Mild lower lung opacities are again noted. No overt pulmonary edema. IMPRESSION: No change in appearance of the chest. Emphysema with mild bilateral lower lung opacities which favor atelectasis. Pneumonia could appear similar although is considered less likely. Electronically signed by: Arcenio Mejia M.D. 08/29/2017 7:17 AM Dictated Date/Time: 08/29/2017 7:13 AM
[2017-08-29] MEDS ORDERED: INSULIN 70% ASPART PROTAMINE/30% ASPART SQ SCH (07:30)
[2017-08-29] MEDS ORDERED: AVODART~ORDER AWAITING ACTION SCH (08:00)
--- NOTE | 2017-08-29 08:30 | Hospitalist Progress Note ---
Hospitalist Progress Note Date of Service Aug 29, 2017. (Yuliya Cabello PA-C) Subjective Pt evaluation today including: conversation w/ patient, physical exam, chart review, lab review, review of studies Pain: None Voiding: gomez catheter in place (draining clear yellow urine) The patient was seen and examined this morning. Pt was on bipap during my visit. Per nursing he had remained on this all night, and had a short break earlier this morning around breakfast. There is a large leak in the bipap due to his face habitus and facial hair which can be repositioned but easily displaced. Per nursing/respiratory - there is not a better option for mask fit at this time. He wakes up with loud noises and machine beeping and seems startled multiple times. He does answer questions and is oriented, as well as is able to follow commands. He provides minimal information at this time due to fatigue. Pt was revisited around lunch and he is on nasal cannula, and his Isabela was present at bedside. He appears more awake and answers all my questions. He reports his breathing is improved today compared to last night. He denies any other acute complaints. Pt has a tray of food at bedside, and was again informed about the risk of aspiration. He understands this as a potential risk , all their questions and concerns were answered. Constitutional: + fatigue, No fever, No chills Respiratory: + problem reported (on bipap and tolerating), No shortness of breath Cardiovascular: No chest pain, No palpitations Abdomen: No pain, No nausea, No vomiting (Yuliya Cabello PA-C) Objective Vital Signs Date Time Temp Pulse Resp B/P (MAP) Pulse Ox O2 Delivery O2 Flow Rate FiO2 08/29/17 07:09 66 99 40 08/29/17 07:09 66 21 99 BiPAP/CPAP 40 08/29/17 04:40 103/57 (72) 08/29/17 04:17 104 26 97 BiPAP/CPAP 40 08/29/17 04:00 BiPAP 4.0 40 08/29/17 03:56 37.1 74 24 82/36 (51) 08/29/17 00:25 37.1 98 18 89/57 97 BiPAP 40 08/29/17 00:00 37.5 98 26 115/65 97 BiPAP 2/14/18 23:03 100 22 109/69 98 Room Air 08/28/17 22:42 102 23 111/77 91 Nasal Cannula 4.0 08/28/17 22:00 103 104/62 99 BiPAP 40 08/28/17 21:32 105 135/76 98 BiPAP 40 08/28/17 21:19 106 99 40 08/28/17 21:16 107 38 98 BiPAP/CPAP 40 08/28/17 21:09 104 08/28/17 20:51 93 Nasal Cannula 4.0 08/28/17 20:21 94 Nasal Cannula 4.0 08/28/17 20:17 39.1 105 194/107 93 Nasal Cannula 4.0 (Yuliya Cabello PA-C) Physical Exam General Appearance: WD/WN, no apparent distress, + pertinent finding ( overweight. On bipap) Eyes: PERRL, EOMI ENT: + pertinent finding (hard of hearing, can not examine oral cavity as on bipap) Neck: supple, no JVD Respiratory/Chest: no accessory muscle use, + pertinent finding (on Bipap, + leak around mask, + bibasilar rhonchi with diminished breath sounds im mid and upper rangel. No wheezing or rales. ) Cardiovascular: regular rate, rhythm, + systolic murmur Abdomen: normal bowel sounds, non tender, soft, + pertinent finding (gomez catheter in place draining clear yellow urine) Extremities: non-tender, + pedal edema (1+ mild pitting edema in BLE) 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: + pertinent finding (difficult to awaken, but alert, answers questions appropriately, follows commands, oriented x 3) Skin: normal color, warm/dry (Yuliya Cabello PA-C) Laboratory Results Last 24 Hours Test 08/28/17 20:15 08/28/17 20:18 08/28/17 21:26 08/28/17 21:30 Influenza Type A Antigen Neg for Influ A Influenza Type B Antigen Neg for Influ B Influenza Type A (RT-PCR) Neg for Influ A Influenza Type B (RT-PCR) Neg for Influ B White Blood Count 5.99 K/uL Red Blood Count 4.71 M/uL Hemoglobin 10.3 g/dL Hematocrit 37.9 % Mean Corpuscular Volume 80.5 fL Mean Corpuscular Hemoglobin 21.9 pg Mean Corpuscular Hemoglobin Concent 27.2 g/dl Platelet Count 185 K/uL Mean Platelet Volume 9.6 fL Neutrophils (%) (Auto) 74.7 % Lymphocytes (%) (Auto) 12.2 % Monocytes (%) (Auto) 10.4 % Eosinophils (%) (Auto) 1.7 % Basophils (%) (Auto) 0.3 % Neutrophils # (Auto) 4.48 K/uL Lymphocytes # (Auto) 0.73 K/uL Monocytes # (Auto) 0.62 K/uL Eosinophils # (Auto) 0.10 K/uL Basophils # (Auto) 0.02 K/uL RDW Standard Deviation 60.1 fL RDW Coefficient of Variation 20.4 % Immature Granulocyte % (Auto) 0.7 % Immature Granulocyte # (Auto) 0.04 K/uL Nucleated RBC Absolute Count (auto) 0.03 K/uL Nucleated Red Blood Cells % 0.4 % Giant Platelets 1+ Polychromasia 1+ Anisocytosis PRESENT Microcytosis PRESENT Prothrombin Time 10.0 SECONDS Prothromb Time International Ratio 1.0 Venous Blood pH 7.37 Venous Blood Partial Pressure CO2 58 mmHg Venous Blood Partial Pressure O2 24 mmHg Venous Blood HCO3 33 mmol/L Venous Blood Oxygen Saturation < 60.0 % Venous Blood Base Excess 6.4 mEq/L Sodium Level 139 mmol/L Potassium Level 3.9 mmol/L Chloride Level 101 mmol/L Carbon Dioxide Level 31 mmol/L Anion Gap 7.0 mmol/L Blood Urea Nitrogen 17 mg/dl Creatinine 1.69 mg/dl Est Creatinine Clear Calc Drug Dose 39.8 ml/min Estimated GFR () 41.4 Estimated GFR (Non- 35.7 BUN/Creatinine Ratio 9.9 Random Glucose 154 mg/dl Lactic Acid Level 1.4 mmol/L Calcium Level 8.5 mg/dl Total Bilirubin 0.5 mg/dl Direct Bilirubin 0.2 mg/dl Aspartate Amino Transf (AST/SGOT) 27 U/L Alanine Aminotransferase (ALT/SGPT) 27 U/L Alkaline Phosphatase 100 U/L Troponin I 0.104 ng/ml Pro-B-Type Natriuretic Peptide 1715 pg/ml Total Protein 7.6 gm/dl Albumin 3.3 gm/dl Lipase 62 U/L Urine Color YELLOW Urine Appearance CLEAR Urine pH 5.0 Urine Specific [place] 1.007 Urine Protein NEG Urine Glucose (UA) NEG Urine Ketones NEG Urine Occult Blood NEG Urine Nitrite NEG Urine Bilirubin NEG Urine Urobilinogen NEG Urine Leukocyte Esterase TRACE Urine WBC (Auto) 1-5 /hpf Urine RBC (Auto) 0-4 /hpf Urine Hyaline Casts (Auto) 1-5 /lpf Urine Epithelial Cells (Auto) 5-10 /lpf Urine Bacteria (Auto) NEG Test 08/29/17 04:45 White Blood Count 4.61 K/uL Red Blood Count 3.95 M/uL Hemoglobin 8.8 g/dL Hematocrit 31.4 % Mean Corpuscular Volume 79.5 fL Mean Corpuscular Hemoglobin 22.3 pg Mean Corpuscular Hemoglobin Concent 28.0 g/dl RDW Standard Deviation 59.0 fL RDW Coefficient of Variation 20.4 % Platelet Count 180 K/uL Mean Platelet Volume 10.0 fL Nucleated RBC Absolute Count (auto) 0.02 K/uL Nucleated Red Blood Cells % 0.3 % Sodium Level 138 mmol/L Potassium Level 4.1 mmol/L Chloride Level 101 mmol/L Carbon Dioxide Level 30 mmol/L Anion Gap 7.0 mmol/L Blood Urea Nitrogen 20 mg/dl Creatinine 1.80 mg/dl Est Creatinine Clear Calc Drug Dose 36.8 ml/min Estimated GFR () 38.4 Estimated GFR (Non- 33.1 BUN/Creatinine Ratio 10.9 Random Glucose 398 mg/dl Calcium Level 8.2 mg/dl Magnesium Level 2.5 mg/dl Troponin I 0.227 ng/ml Beta-Hydroxybutyric Acid 4.58 mg/dL (Yuliya Cabello, PAIsabelleC) Assessment and Plan 86 y/o M w/Hx COPD - home 02, combined CHF, CAD, CKD 3-4, DM, chronic aspiration with recurrent PNM, adrenal insufficiency, chronic Gomez w/recurrent UTIs, history of DVT. Resides in a nursing facility. Pt has been admitted to the hospital several times this yr for pneumonia due to aspiration CHF, UTIs, AMS and hypoglycemic episodes. He has exhibited a degree of functional decline over the past year. The pt was hypoxic and febrile on arrival to the ER, requiring BIPAP. His is present at bedside to inform us that his symptoms were of acute onset, included SOB and fever, and began this afternoon. An initial CXR is consistent with vascular congestion and superimposed BL infiltrates. Hypoxia Acute Respiratory Failure - Continues to requiring BIPAP - received breathing treatments, IV lasix and an initial dose of antibiotics provided in the ER. His code status does not allow for intubation presently. - During exam this morning nursing notes he was off bipap for 20-30 min, and refused to wear O2 at that time. - + Bipap mask with leak - have told nursing/respiratory but informed that there is little to do because of his face shape and facial hair preventing a good seal around the mask. Acute on Chronic Combined systolic and diastolic CHF - IV Lasix provided in ER - still with 1+ pitting edema in BLE. --- give additional lasix 40 mg IV today, continue lasix 40 mg PO qam. - daily weights with standing scale to provide more accurate readings as weight from 101 kg to 103 kg today with bed scales. -strict I/O - Out 880 mL at this time. - cont atenolol 12.5 qam. PNM - fever present - initial rapid flu is negative - prone to aspiration. - Considering multiple recent admissions and findings on XR, we will treat to cover both aspiration and HCAP - Cont Levaquin, Cefepime, Vanc (started 08/28) pending culture results. - Influ neg - Lactic acid was negative, no procalcitonin obtained - Aspiration precautions - pt and were present for discussion on risk of aspiration. All their questions and concerns were answered. COPD - cont Duonebs/Xopenex and Solumedrol 40 q6H in addition to above antibiotics - no clear wheezing on exam, however, very poor air movement is present - will continue at this timem DM - Continue ISS with accuchecks, glycemic pharmacy on board. - Glucose elevated ~ 400 this morning, on recheck during my exam was 331. Follow accuchecks, daily BMP. CKD III - creat is currently above baseline - Will give another dose of lasix this morning as still appears to be volume overloaded - would expect improvement with Cr if this is true - Cr increased to 1.8 from 1.6, follow PRP. CAD - trop is elevated - per previous labs, this is likely chronic - he does have a history of CAD however. - Trop increased from 0.104 to 0.227, will check third set at noon. - cont ASA, statin, B opal, PRN NTG. Anemia - Hgb dropped from 10.3 to 8.8, will ask for guiac all stools - note that he had a GI bleed of undetermined source and was anticoagulated before that time so would monitor for bleeding as he is placed on Heparin prophylaxis. - unlikely dilutional as he had been given IV lasix and we are actively diuresing Adrenal insufficiency - placed on IV steroids for COPD - cont Fludrocortisone DVT ppx: Heparin subq CODE: DNR Reg the pt's code status - he has a from signed in 2014 stating that he really only wants comfort measures. The ER MD was able to confirm that he wanted full treatment short of intubation when he arrived in the ER. His states that she wants full treatment. The form then needs to be revised or if it is confirmed that the pt want comfort measures only, the case needs to be referred to ethics in terms of future management and considering that we expect he will continue to require frequent admissions. (Yuliya Cabello, ROSSANA) PA Physician Supervision Note: I interviewed and examined the patient. Discussed with Yuliya Cabello PAC and agree with findings and plan as documented in the note. Any exceptions or clarifications are listed here: None Patient presented with acute on chronic respiratory failure due to his COPD and likely some acute on chronic systolic heart failure he was supported with BiPAP and has done quite well he's now off BiPAP on nasal cannula oxygen receiving nebulized medications and intravenous diuretics Vital signs are stable Lungs show poor air movement consistent with COPD he is also barrel chested Cardiac exam is regular with a systolic murmur Patient presents with acute on chronic respiratory failure and acute on chronic systolic heart failure Treating his COPD with typical steroids and nebulizers treating his heart failure with diuretics with attention paid to renal function he's also having some issues with blood glucose control given his steroids will use sliding scale to cover this Documented By: Stanford Dotson (Stanford Dotson M.D.)
[2017-08-29] MEDS: PANTOprazole SOD 40 MG TAB PO SCH (09:00)
[2017-08-29] MEDS: POLYETHYLENE (MIRALAX) 17 GM PACK PO SCH ×2 (09:00→21:16)
[2017-08-29] MEDS ORDERED: VANCOMYCIN INJ 1,000 MG in SODIUM CHLORIDE 0.9% 250ML 250 ML IV SCH (09:00)
[2017-08-29] MEDS ORDERED: INSULIN HUMAN REGULAR PER UNIT 5 UNITS in SYRINGE 4.95 ML IV ONE (10:30)
[2017-08-29] MEDS ORDERED: INSULIN ASPART 100 UNITS/ML 3 ML PEN SC SCH ×2 (11:00→12:30)
[2017-08-29] MEDS: CEFEPIME IV 2,000 MG in SYRINGE 7.5 ML IV SCH ×2 (11:13→21:50)
[2017-08-29] MEDS: HYDROCORTISONE 10 MG TAB PO SCH ×2 (12:21→21:18)
[2017-08-29] MEDS: FLUDROCORTISONE ACETATE 0.1 MG TAB PO SCH ×2 (12:22→21:19)
[2017-08-29] MEDS: FUROSEMIDE 40 MG TAB PO SCH (12:23)
[2017-08-29] MEDS: OXYCODONE HCL 15 MG TABCR (OXYCONTIN) PO SCH ×2 (12:23→21:18)
[2017-08-29] MEDS: FLUTICASONE/SALMETEROL 250/50 (ADVAIR) 14 PUFF/1 INHALER INH SCH ×2 (12:29→21:15)
[2017-08-29] MEDS: GABAPENTIN 800 MG TAB PO SCH ×3 (12:30→21:18)
[2017-08-29] MEDS: GABAPENTIN 100 MG CAP PO SCH ×3 (12:30→21:18)
[2017-08-29] MEDS: DULOXETINE HCL 60 MG CAP PO SCH (12:30)
[2017-08-29] MEDS: DOCUSATE SODIUM 100 MG CAP PO SCH ×2 (12:30→21:17)
[2017-08-29] MEDS ORDERED: FUROSEMIDE INJ 40 MG in SYRINGE 0 ML IV ONE (12:30)
[2017-08-29] MEDS: ASPIRIN 81 MG ECTAB PO SCH (12:31)
[2017-08-29] MEDS: POTASSIUM CHLORIDE 20 MEQ TABCR PO SCH (12:42)
[2017-08-29] MEDS: BISACODYL 5 MG TABEC PO SCH ×2 (12:42→21:18)
[2017-08-29] MEDS: MAGNESIUM OXIDE 400 MG TAB PO SCH ×2 (12:42→21:17)
[2017-08-29] MEDS: CYANOCOBALAMIN 500 MCG TAB (VIT B-12) PO SCH (12:43)
[2017-08-29] MEDS ORDERED: NURSING VERBAL MED ORDER ONE (13:15)
--- NOTE | 2017-08-29 13:34 | Pharmacy Progress Note ---
Glycemic Control Intl Consult Date of Service Aug 29, 2017. Scope Glycemic Pharmacist consulted by Dr Pineda on 08/29 for glycemic control and to write orders per [facility] inpatient glycemic control protocol Objective Weight (Kilograms): 103.500 Accuchecks BSG (last 24hrs): Test 08/28/17 21:26 08/29/17 04:45 08/29/17 09:54 Random Glucose 154 mg/dl (70-99) 398 mg/dl (70-99) Bedside Glucose 331 mg/dl (70-99) Laboratory Data (last 24hrs) Test 08/28/17 21:26 08/29/17 04:45 Anion Gap 7.0 mmol/L 7.0 mmol/L BUN/Creatinine Ratio 9.9 10.9 Blood Urea Nitrogen 17 mg/dl 20 mg/dl Creatinine 1.69 mg/dl 1.80 mg/dl Potassium Level 3.9 mmol/L 4.1 mmol/L Sodium Level 139 mmol/L 138 mmol/L White Blood Count 5.99 K/uL 4.61 K/uL Red Blood Count 4.71 M/uL Hemoglobin 10.3 g/dL Hematocrit 37.9 % Mean Corpuscular Volume 80.5 fL Mean Corpuscular Hemoglobin 21.9 pg Mean Corpuscular Hemoglobin Concent 27.2 g/dl Platelet Count 185 K/uL Mean Platelet Volume 9.6 fL Neutrophils (%) (Auto) 74.7 % Lymphocytes (%) (Auto) 12.2 % Monocytes (%) (Auto) 10.4 % Eosinophils (%) (Auto) 1.7 % Basophils (%) (Auto) 0.3 % Neutrophils # (Auto) 4.48 K/uL Lymphocytes # (Auto) 0.73 K/uL Monocytes # (Auto) 0.62 K/uL Eosinophils # (Auto) 0.10 K/uL Basophils # (Auto) 0.02 K/uL Recent Pertinent Medications Outpatient Anti-diabetic Regimen: * Novolog 70/30 25 units qAM, 10 units qPM * Levemir 20 units qHS (confirmed dose via scanned [facility] records) * A1c = 7.0 % on 08/18/17 Risk Factors for Insulin Resistance: * Steroids: Methylprednisolone 40 mg IV q6h and hydrocortisone 20 mg po BID * Infection: PNA * Diet: NPO to T2DM Assessment & Plan ASSESSMENT: * 87 yo M known to our service. Consulted 08/29 AM for hyperglycemia (etiology = missed basal insulin dose last night in addition to steroid-induced) * Choose Levemir for basal as patient receives this at home * Patient responded appropriately to Novolog plus IV insulin (BSG's decreased from 407 to 254 mg/dl) - hold off on insulin drip for now * Previous admission requiring ~40-50 units basal insulin while on steroids. 30 units given this AM. * Will give an additional 10 units now 2nd hyperglycemia this AM and missed basal dose yesterday * Will give slightly lower dose this PM as will have already received 40 units by that point * Novolog based on previous admission data while on steroids - this will need to be loosened when steroids are tapered * Two overnight checks PLAN FOR INPATIENT GLYCEMIC CONTROL: * Basal insulin with LEVEMIR 10 units SQ x1 now then based on BSG tonight: * 10 units for BSG less than 150 mg/dL * 15 units for BSG greater than 150 mg/dL * Correctional Insulin with NOVOLOG per scale ACHS or Q6hrs while NPO - plus two overnight checks * Goal Range: Low 110 mg/dL - High 150 mg/dL * Correction Factor: 15 mg/dL/unit * Nutritional / Prandial insulin per carb ratio of 1 unit per 5 grams CHO consumed * Please note that the plan above was derived based on current level of insulin resistance and hospital stress. These recommendations are appropriate for inpatient admission only. Plan of care upon discharge will need to be reassessed to avoid potential outpatient hypo/hyperglycemia. Thank you.
--- NOTE | 2017-08-29 14:01 | Pharmacy Progress Note ---
Pharmacy Antibiotic Consult Date of Service: Aug 29, 2017. Pharmacy Dosing Scope Pharmacy is consulted to initiate vancomycin/cefepime IV dosing therapy, order appropriate labs and adjust drug dose/frequency. Subjective The patient is a 87 year old male admitted on Aug 28, 2017 at 22:43. Objective Height (Feet): 6 Height (Inches): 2.00 Weight (Kilograms): 103.500 Lab Results (24hrs): Test 08/28/17 20:15 08/28/17 20:18 08/28/17 21:26 08/28/17 21:30 Influenza Type A Antigen Neg for Influ A (NEG) Influenza Type B Antigen Neg for Influ B (NEG) Influenza Type A (RT-PCR) Neg for Influ A (NEG) Influenza Type B (RT-PCR) Neg for Influ B (NEG) White Blood Count 5.99 K/uL (4.8-10.8) Red Blood Count 4.71 M/uL (4.7-6.1) Hemoglobin 10.3 g/dL (14.0-18.0) Hematocrit 37.9 % (42-52) Mean Corpuscular Volume 80.5 fL (80-100) Mean Corpuscular Hemoglobin 21.9 pg (25-34) Mean Corpuscular Hemoglobin Concent 27.2 g/dl (32-36) Platelet Count 185 K/uL (130-400) Mean Platelet Volume 9.6 fL (7.4-10.4) Neutrophils (%) (Auto) 74.7 % Lymphocytes (%) (Auto) 12.2 % Monocytes (%) (Auto) 10.4 % Eosinophils (%) (Auto) 1.7 % Basophils (%) (Auto) 0.3 % Neutrophils # (Auto) 4.48 K/uL (1.4-6.5) Lymphocytes # (Auto) 0.73 K/uL (1.2-3.4) Monocytes # (Auto) 0.62 K/uL (0.11-0.59) Eosinophils # (Auto) 0.10 K/uL (0-0.5) Basophils # (Auto) 0.02 K/uL (0-0.2) RDW Standard Deviation 60.1 fL (36.4-46.3) RDW Coefficient of Variation 20.4 % (11.5-14.5) Immature Granulocyte % (Auto) 0.7 % Immature Granulocyte # (Auto) 0.04 K/uL (0.00-0.02) Nucleated RBC Absolute Count (auto) 0.03 K/uL (0-0) Nucleated Red Blood Cells % 0.4 % Giant Platelets 1+ Polychromasia 1+ Anisocytosis PRESENT Microcytosis PRESENT Prothrombin Time 10.0 SECONDS (9.0-12.0) Prothromb Time International Ratio 1.0 (0.9-1.1) Venous Blood pH 7.37 (7.36-7.41) Venous Blood Partial Pressure CO2 58 mmHg (38.0-50.0) Venous Blood Partial Pressure O2 24 mmHg Venous Blood HCO3 33 mmol/L Venous Blood Oxygen Saturation < 60.0 % Venous Blood Base Excess 6.4 mEq/L Sodium Level 139 mmol/L (136-145) Potassium Level 3.9 mmol/L (3.5-5.1) Chloride Level 101 mmol/L (98-107) Carbon Dioxide Level 31 mmol/L (21-32) Anion Gap 7.0 mmol/L (3-11) Blood Urea Nitrogen 17 mg/dl (7-18) Creatinine 1.69 mg/dl (0.60-1.40) Est Creatinine Clear Calc Drug Dose 39.8 ml/min Estimated GFR () 41.4 Estimated GFR (Non- 35.7 BUN/Creatinine Ratio 9.9 (10-20) Random Glucose 154 mg/dl (70-99) Lactic Acid Level 1.4 mmol/L (0.4-2.0) Calcium Level 8.5 mg/dl (8.5-10.1) Total Bilirubin 0.5 mg/dl (0.2-1) Direct Bilirubin 0.2 mg/dl (0-0.2) Aspartate Amino Transf (AST/SGOT) 27 U/L (15-37) Alanine Aminotransferase (ALT/SGPT) 27 U/L (12-78) Alkaline Phosphatase 100 U/L (45-117) Pro-B-Type Natriuretic Peptide 1715 pg/ml (0-1800) Total Protein 7.6 gm/dl (6.4-8.2) Albumin 3.3 gm/dl (3.4-5.0) Lipase 62 U/L (73-393) Urine Color YELLOW Urine Appearance CLEAR (CLEAR) Urine pH 5.0 (4.5-7.5) Urine Specific [place] 1.007 (1.000-1.030) Urine Protein NEG (NEG) Urine Glucose (UA) NEG (NEG) Urine Ketones NEG (NEG) Urine Occult Blood NEG (NEG) Urine Nitrite NEG (NEG) Urine Bilirubin NEG (NEG) Urine Urobilinogen NEG (NEG) Urine Leukocyte Esterase TRACE (NEG) Urine WBC (Auto) 1-5 /hpf (0-5) Urine RBC (Auto) 0-4 /hpf (0-4) Urine Hyaline Casts (Auto) 1-5 /lpf (0-5) Urine Epithelial Cells (Auto) 5-10 /lpf (0-5) Urine Bacteria (Auto) NEG (NEG) Test 08/29/17 04:45 08/29/17 09:54 08/29/17 12:40 White Blood Count 4.61 K/uL (4.8-10.8) Red Blood Count 3.95 M/uL (4.7-6.1) Hemoglobin 8.8 g/dL (14.0-18.0) Hematocrit 31.4 % (42-52) Mean Corpuscular Volume 79.5 fL (80-100) Mean Corpuscular Hemoglobin 22.3 pg (25-34) Mean Corpuscular Hemoglobin Concent 28.0 g/dl (32-36) RDW Standard Deviation 59.0 fL (36.4-46.3) RDW Coefficient of Variation 20.4 % (11.5-14.5) Platelet Count 180 K/uL (130-400) Mean Platelet Volume 10.0 fL (7.4-10.4) Nucleated RBC Absolute Count (auto) 0.02 K/uL (0-0) Nucleated Red Blood Cells % 0.3 % Sodium Level 138 mmol/L (136-145) Potassium Level 4.1 mmol/L (3.5-5.1) Chloride Level 101 mmol/L (98-107) Carbon Dioxide Level 30 mmol/L (21-32) Anion Gap 7.0 mmol/L (3-11) Blood Urea Nitrogen 20 mg/dl (7-18) Creatinine 1.80 mg/dl (0.60-1.40) Est Creatinine Clear Calc Drug Dose 36.8 ml/min Estimated GFR () 38.4 Estimated GFR (Non- 33.1 BUN/Creatinine Ratio 10.9 (10-20) Random Glucose 398 mg/dl (70-99) Calcium Level 8.2 mg/dl (8.5-10.1) Magnesium Level 2.5 mg/dl (1.8-2.4) Troponin I 0.227 ng/ml (0-0.045) 0.238 ng/ml (0-0.045) Beta-Hydroxybutyric Acid 4.58 mg/dL (0.2-2.81) Bedside Glucose 331 mg/dl (70-99) Micro Results: Date/Time Source Procedure Growth Status 08/28/17 20:41 Blood Blood Culture Pending Received 08/28/17 20:30 Blood Blood Culture Pending Received Recent Pertinent Medications Recent treatment with cefepime/vancomycin Assessment & Plan Assessment: * 87 yo M w/ PMH COPD, CHF, CAD, 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 Starting dose empirically based on recent prior admission levels with similar SCr/weight Goal trough level: 15-20 Trough ordered for 08/31 @ 1930 prior to 3rd dose. Pharmacy will continue to follow and will adjust dose/frequency as necessary. Thank you
[2017-08-29] MEDS: INSULIN ASPART 100 UNITS/ML 3 ML PEN SC SCH ×2 (17:28→21:14)
[2017-08-29] MEDS ORDERED: ARTIFICIAL TEARS OP SOLN OPB PRN (21:00)
[2017-08-29] MEDS ORDERED: INSULIN DETEMIR FLEXPEN/FLEX TOUCH 100 UNITS/ML 3ML SQ SCH (21:00)
[2017-08-29] MEDS: INSULIN DETEMIR FLEXPEN/FLEX TOUCH 100 UNITS/ML 3ML SQ SCH (21:15)
[2017-08-29] MEDS: VANCOMYCIN INJ 2,000 MG in SODIUM CHLORIDE 0.9% 500ML 500 ML IV SCH (21:15)
[2017-08-29] MEDS: TAMSULOSIN HCL 0.4 MG CAP PO SCH (21:19)
[2017-08-29] MEDS: AZITHROMYCIN IV 500 MG in DEXTROSE 5% 250ML 250 ML IV SCH (21:20)
[2017-08-29] MEDS: FAMOTIDINE 20 MG TAB PO SCH (21:20)
[2017-08-29] MEDS: ATORVASTATIN 20 MG TAB PO SCH (21:20)
[2017-08-30] VITALS (10 sets, daily range): BP systolic 99–138; BP diastolic 58–82; PULSE 66–78; TEMP 36.6–36.8; O2SAT 92–98
[2017-08-30] MEDS: INSULIN ASPART 100 UNITS/ML 3 ML PEN SC SCH ×6 (00:37→22:11)
[2017-08-30] MEDS: ALBUT/IPRATROP 3MG/0.5MG NEB 3 ML VIAL INH SCH ×4 (02:03→19:18)
[2017-08-30] MEDS: METHYLPREDNISOLONE IV 40 MG in SYRINGE 0 ML IV SCH ×4 (04:04→21:57)
[2017-08-30] MEDS: HEPARIN SOD 5000 UNIT/0.5 ML CARP SQ SCH ×3 (06:16→22:12)
[2017-08-30 06:58] LABS: CREATININE 1.45 mg/dl (0.60-1.40)
--- NOTE | 2017-08-30 08:08 | Hospitalist Progress Note ---
Hospitalist Progress Note Date of Service Aug 30, 2017. (Yuliya Cabello PA-C) Subjective Pt evaluation today including: conversation w/ patient, physical exam, chart review, lab review, review of studies Pain: None PO Intake: Good Voiding: gomez catheter in place The patient was seen and examined this morning. Pt reports doing well today. His breathing is much improved today compared to yesterday. He did not require bipap overnight and has been tolerating NC at 2 L at rest. When he ambulates and stands from the bed to bedside commode he becomes significantly short of breath, sats drop to low 80s, but oxygenation quickly rebounds per nursing. He also reports a sore throat. He denies any runny nose, drainage, fever. He does report having some hot flashes whenever going from a sitting to standing position, but that this quickly resolves. ROS: Constitutional: No fever, No chills, No sweats, No fatigue Eyes: No redness, No diplopia ENT: + sore throat, No nasal symptoms, No trouble swallowing Respiratory: + dyspnea on exertion, No cough, No wheezing, No dyspnea at rest Cardiovascular: No chest pain, No PND, No palpitations Abdomen: No pain, No nausea, No vomiting, No diarrhea Musculoskeletal: No joint pain, No muscle pain, No swelling Neurologic: No weakness, No numbness/tingling Endo: No fatigue Skin: No rash, No itch (Yuliya Cabello PA-C) Objective Vital Signs Date Time Temp Pulse Resp B/P (MAP) Pulse Ox O2 Delivery O2 Flow Rate FiO2 08/30/17 07:44 36.8 66 20 104/68 (80) 95 08/30/17 07:08 67 14 98 Nasal Cannula 3.0 08/30/17 04:00 Nasal Cannula 4.0 08/30/17 03:59 36.6 67 21 103/61 (75) 94 Nasal Cannula 3.0 08/30/17 02:04 67 14 98 Nasal Cannula 4.0 08/29/17 23:54 36.6 69 20 108/65 (79) 95 Nasal Cannula 4.0 08/29/17 20:00 Nasal Cannula 4.0 08/29/17 19:20 36.4 90 18 126/66 (86) 97 Nasal Cannula 4.0 08/29/17 19:07 68 20 99 Nasal Cannula 6.0 08/29/17 16:14 Nasal Cannula 6.0 08/29/17 16:00 Nasal Cannula 6.0 08/29/17 15:16 36.4 70 20 127/62 (83) 93 Nasal Cannula 7.0 08/29/17 14:30 69 22 93 Nasal Cannula 6.0 08/29/17 12:54 36.6 73 26 135/81 (99) 99 Nasal Cannula 6.0 08/29/17 12:00 Nasal Cannula 6.0 08/29/17 12:00 BiPAP 08/29/17 08:37 36.6 65 18 102/65 (77) 99 (Yuliya Cabello PA-C) Physical Exam Notes: General Appearance: WD/WN, no apparent distress, + pertinent finding ( overweight) Eyes: PERRL, EOMI ENT: + pertinent finding (hearing improved with aids, MMM) Neck: supple, no JVD Respiratory/Chest: no accessory muscle use, + pertinent finding (barrel chested , on 2 L via NC, breath sounds greatly improved, no crackles, wheeze or rales) Cardiovascular: regular rate, rhythm, + faint systolic murmur Abdomen: normal bowel sounds, non tender, soft, + pertinent finding (gomez catheter in place draining clear yellow urine) Extremities: non-tender, + pedal edema (1+ mild pitting edema in BLE) 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: AAO x 3, no motor or sensory deficits, speech is clear Skin: normal color, warm/dry (Yuliya Cabello PA-C) Laboratory Results Last 24 Hours Test 08/29/17 09:54 08/29/17 12:37 08/29/17 12:40 08/29/17 15:58 Bedside Glucose 331 mg/dl 254 mg/dl 253 mg/dl Troponin I 0.238 ng/ml Test 08/29/17 21:02 08/30/17 00:20 08/30/17 04:02 08/30/17 05:54 Bedside Glucose 225 mg/dl 229 mg/dl 174 mg/dl Creatinine 1.45 mg/dl Est Creatinine Clear Calc Drug Dose 46.1 ml/min Estimated GFR () 49.8 Estimated GFR (Non- 43.0 Test 08/30/17 06:37 08/30/17 06:55 08/30/17 07:42 Bedside Glucose 164 mg/dl (Yuliya Cabello PA-C) Assessment and Plan 86 y/o M w/Hx COPD - home 02, combined CHF, CAD, CKD 3-4, DM, chronic aspiration with recurrent PNM, adrenal insufficiency, chronic Gomez w/recurrent UTIs, history of DVT. Resides in a nursing facility. Pt has been admitted to the hospital several times this yr for pneumonia due to aspiration CHF, UTIs, AMS and hypoglycemic episodes. He has exhibited a degree of functional decline over the past year. The pt was hypoxic and febrile on arrival to the ER, requiring BIPAP. His is present at bedside to inform us that his symptoms were of acute onset, included SOB and fever, and began this afternoon. An initial CXR is consistent with vascular congestion and superimposed BL infiltrates. Hypoxia Acute Respiratory Failure - Improving, pt has not required bipap for 24 hours now and has transitioned to MN. Breath sounds are greatly improved - His code status does not allow for intubation Acute on Chronic Combined systolic and diastolic CHF - IV Lasix provided in ER - still with 1+ pitting edema in BLE. --- give additional lasix 40 mg IV today, continue lasix 40 mg PO qam. - daily weights with standing scale: today 98 Kg - strict I/O - Out 3860 mL yesterday total. - cont atenolol 12.5 qam. PNM - fever present - initial rapid flu is negative - prone to aspiration. - Considering multiple recent admissions and findings on XR, we will treat to cover both aspiration and HCAP - Cont Levaquin, Cefepime, Vanc (started 08/28) pending culture results. - Influ neg - Lactic acid was negative, no procalcitonin obtained - Aspiration precautions - pt and were present for discussion on risk of aspiration. All their questions and concerns were answered. COPD - cont Duonebs/Xopenex and Solumedrol 40 q6H in addition to above antibiotics - no clear wheezing on exam, however, very poor air movement is present - will continue at this time DM - Continue ISS with accuchecks, glycemic pharmacy on board. - Glucose elevated ~ 400 this morning, on recheck during my exam was 331. Follow accuchecks, daily BMP. CKD III - - Elevated creatinine due to volume overload in the setting of CHF improved within 24 hrs after diuresis. - Cr.1.45 CAD - trop is elevated- per previous labs, this is likely chronic - he does have a history of CAD however. - Trop increased from 0.104 to 0.227, 0.238 today. Likely demand ischemia in the setting of CHF and volume overload. - cont ASA, statin, B opal, PRN NTG. Anemia - Hgb dropped from 10.3 to 8.6, negative hemmocult this morning - note that he had a GI bleed of undetermined source and was anticoagulated before that time so would monitor for bleeding as he is placed on Heparin prophylaxis. - unlikely dilutional as he had been given IV lasix and we are actively diuresing Adrenal insufficiency - placed on IV steroids for COPD - cont Fludrocortisone DVT ppx: Heparin subq CODE: DNR Reg the pt's code status - he has a from signed in 2014 stating that he really only wants comfort measures. The ER MD was able to confirm that he wanted full treatment short of intubation when he arrived in the ER. His states that she wants full treatment. The form then needs to be revised or if it is confirmed that the pt want comfort measures only, the case needs to be referred to ethics in terms of future management and considering that we expect he will continue to require frequent admissions. (Yuliya Cabello, ROSSANA) i personally examined pt and verified all h[place] points ney Cabello PAC feeing better just weak vitals noted nad breathing unlabored no pallor or icterus lungs surprisingly clear multifactorial respiratory failure as above ipmroving decondiitioning - PT/OT eval and treat demand ischemia / elevated troponin - due to above, stable. med management, otherwise as above (Oscar Malik D.O.)
[2017-08-30 08:32] LABS: HEMATOCRIT 31.3 % (42-52); HEMOGLOBIN 8.6 g/dL (14.0-18.0); MEAN CELL VOLUME 78.8 fL (80-100); MEAN CORPUSCULAR HEMOGLOBIN 21.7 pg (25-34); MEAN CORPUSCULAR HGB CONC 27.5 g/dl (32-36); RED CELL DISTRIBUTION WIDTH CV 20.3 % (11.5-14.5); RED CELL DISTRIBUTION WIDTH SD 59.1 fL (36.4-46.3); WHITE BLOOD COUNT 6.34 K/uL (4.8-10.8)
[2017-08-30 09:02] LABS: BASO % 0.2 %; BASO ABS # 0.01 K/uL (0-0.2); IG# 0.01 K/uL (0.00-0.02); LYMPH % 7.6 %; LYMPH ABS # 0.48 K/uL (1.2-3.4); MEAN PLATELET VOLUME 9.8 fL (7.4-10.4); MONO % 5.5 %; MONO ABS # 0.35 K/uL (0.11-0.59); NEUT % 86.5 %; NEUT ABS # 5.49 K/uL (1.4-6.5); NUCLEATED RED BLOOD CELL ABS 0.02 K/uL (0-0); PLATELET COUNT 191 K/uL (130-400)
[2017-08-30] MEDS: FLUTICASONE/SALMETEROL 250/50 (ADVAIR) 14 PUFF/1 INHALER INH SCH ×2 (09:20→22:01)
[2017-08-30] MEDS: DULOXETINE HCL 60 MG CAP PO SCH (09:20)
[2017-08-30] MEDS: GABAPENTIN 800 MG TAB PO SCH ×3 (09:20→21:57)
[2017-08-30] MEDS: FLUDROCORTISONE ACETATE 0.1 MG TAB PO SCH ×2 (09:21→22:01)
[2017-08-30] MEDS: PANTOprazole SOD 40 MG TAB PO SCH (09:21)
[2017-08-30] MEDS: CYANOCOBALAMIN 500 MCG TAB (VIT B-12) PO SCH (09:21)
[2017-08-30] MEDS: GABAPENTIN 100 MG CAP PO SCH ×3 (09:22→21:59)
[2017-08-30] MEDS: HYDROCORTISONE 10 MG TAB PO SCH ×2 (09:22→22:00)
[2017-08-30] MEDS: DOCUSATE SODIUM 100 MG CAP PO SCH ×2 (09:25→21:58)
[2017-08-30] MEDS: DUTASTERIDE 0.5MG PO SCH (09:27)
[2017-08-30] MEDS: POLYETHYLENE (MIRALAX) 17 GM PACK PO SCH ×2 (09:28→22:01)
[2017-08-30] MEDS: ASPIRIN 81 MG ECTAB PO SCH (09:28)
[2017-08-30] MEDS: POTASSIUM CHLORIDE 20 MEQ TABCR PO SCH (09:28)
[2017-08-30] MEDS: MAGNESIUM OXIDE 400 MG TAB PO SCH ×2 (09:32→21:59)
[2017-08-30] MEDS: FUROSEMIDE 40 MG TAB PO SCH (09:32)
[2017-08-30] MEDS: INSULIN DETEMIR FLEXPEN/FLEX TOUCH 100 UNITS/ML 3ML SQ SCH (09:44)
[2017-08-30] MEDS: OXYCODONE HCL 15 MG TABCR (OXYCONTIN) PO SCH ×2 (09:52→21:56)
[2017-08-30] MEDS: BISACODYL 5 MG TABEC PO SCH ×2 (09:52→22:02)
[2017-08-30] MEDS: CEFEPIME IV 2,000 MG in SYRINGE 7.5 ML IV SCH ×2 (09:54→22:15)
--- NOTE | 2017-08-30 10:17 | Clinical Documentation Query ---
QUERY 1 OF [address] AVERY, In your clinical opinion is this patient being managed for: ( x ) Type II PR due to demand ischemia ( ) Not Agree ( ) Other explanation of clinical findings (Please Explain) ( ) Unable to determine (Please Define) ( ) Need to Discuss The medical record reflects the following clinical findings, treatment, and risk factors. Clinical Indicators: 87 yo male presented with increasing dyspnea and wt gain. VS 39.1-105-38 194/107, 93% on 4L. Trops 0.104/0.227/0.238, EKG with possible lateral infarct and inferior-posterior infarct. Recent comparative trops (08/08/17 and 08/16/17) 0.044/0.016/0.022. Treatment:O2 support/BIPAP, IV lasix then po, tele monitoring, serial trops, nebs, IV antibiotics, Risk Factors:acute respiratory failure, acute/chronic combined CHF, pneumonia, DM, CKD, QUERY 2 OF 2 In your clinical opinion is this patient being managed for: ( ) Acute kidney failure ( x ) Not Agree ( ) Other explanation of clinical findings (Please Explain) ( ) Unable to determine (Please Define) ( ) Need to Discuss The medical record reflects the following clinical findings, treatment, and risk factors. Clinical Indicators: Initial Cr 1.69 which trended up to 1.80, now trending down to 1.45. Comparative Cr 1.2-1.5. Treatment:monitor PRP's, treat comorbid chronic and acute diseases, tele monitoring Risk Factors: acute combined CHF, COPD, HTN, CKD, acute respiratory failure. Please clarify and document your clinical opinion in the progress notes and discharge summary. Terms such as "probable", "suspected", "likely", "questionable", "possible", or "still to be ruled out" are acceptable. IF IN AGREEMENT, YOU MUST DOCUMENT ABOVE DIAGNOSTIC STATEMENT IN DAILY PROGRESS NOTES AND DISCHARGE SUMMARY. This document is not part of the patient's record. Thank You, Carolin Stoll, RN [phone]
--- NOTE | 2017-08-30 12:44 | Clinical Documentation Query ---
QUERY 1 OF 2 CLINICAL DOCUMENTATION QUERY Ms. GEIGER, In your clinical opinion is this patient being managed for: ( ) Type II [place] due to demand ischemia ( x ) Not Agree - demand ischemia in the setting of volume overload with CHF ( ) Other explanation of clinical findings (Please Explain) ( ) Unable to determine (Please Define) ( ) Need to Discuss The medical record reflects the following clinical findings, treatment, and risk factors. Clinical Indicators: 87 yo male presented with increasing dyspnea and wt gain. VS 39.1-105-38 194/107, 93% on 4L. Trops 0.104/0.227/0.238, EKG with possible lateral infarct and inferior-posterior infarct. Recent comparative trops (08/08/17 and 08/16/17) 0.044/0.016/0.022. Treatment:O2 support/BIPAP, IV lasix then po, tele monitoring, serial trops, nebs, IV antibiotics, Risk Factors:acute respiratory failure, acute/chronic combined CHF, pneumonia, DM, CKD, QUERY 2 OF 2 In your clinical opinion is this patient being managed for: ( ) Acute kidney failure ( x ) Not Agree - Volume overload in the setting of CHF exacerbation, resolved within 24 hours. Only bumped from 1.5 to 1.8 at [facility], and now has trended down to 1.4. ( ) Other explanation of clinical findings (Please Explain) ( ) Unable to determine (Please Define) ( ) Need to Discuss The medical record reflects the following clinical findings, treatment, and risk factors. Clinical Indicators: Initial Cr 1.69 which trended up to 1.80, now trending down to 1.45. Comparative Cr 1.2-1.5. Treatment:monitor PRP's, treat comorbid chronic and acute diseases, tele monitoring Risk Factors: acute combined CHF, COPD, HTN, CKD, acute respiratory failure. Please clarify and document your clinical opinion in the progress notes and discharge summary. Terms such as "probable", "suspected", "likely", "questionable", "possible", or "still to be ruled out" are acceptable. IF IN AGREEMENT, YOU MUST DOCUMENT ABOVE DIAGNOSTIC STATEMENT IN DAILY PROGRESS NOTES AND DISCHARGE SUMMARY. This document is not part of the patient's record. Thank You, Carolin Stoll RN [phone]
[2017-08-30] MEDS ORDERED: CHLORASEPTIC 1.4% SOLN 180 ML BTL MT PRN (12:45)
[2017-08-30] MEDS ORDERED: *BENZOCAINE/MENTHOL 18 LOZ/1 BOX MT PRN (12:45)
[2017-08-30] MEDS: LIDODERM (LIDOCAINE) PATCH 5% TD SCH (14:17)
--- NOTE | 2017-08-30 14:56 | Pharmacy Progress Note ---
Glycemic Control Progress Note Date of Service Aug 30, 2017. Scope Glycemic Pharmacist consulted for glycemic control to write orders per [facility] inpatient glycemic control protocol. Objective Accuchecks BSG (last 24hrs): Test 08/29/17 15:58 08/29/17 21:02 08/30/17 00:20 08/30/17 04:02 Bedside Glucose 253 mg/dl (70-99) 225 mg/dl (70-99) 229 mg/dl (70-99) 174 mg/dl (70-99) Test 08/30/17 06:37 08/30/17 11:21 Bedside Glucose 164 mg/dl (70-99) 221 mg/dl (70-99) Recent Pertinent Medications Outpatient Anti-diabetic Regimen: * Novolog /30 25 units qAM, 10 units qPM * Levemir 20 units qHS (confirmed dose via scanned [facility] records) * A1c = 7.0 % on 08/18/17 Risk Factors for Insulin Resistance: * Steroids: Methylprednisolone 40 mg IV q6h and hydrocortisone 20 mg po BID * Infection: PNA * Diet: NPO to T2DM Assessment & Plan ASSESSMENT: 08/29 * 87 yo M known to our service. Consulted 08/29 AM for hyperglycemia (etiology = missed basal insulin dose last night in addition to steroid-induced) * Choose Levemir for basal as patient receives this at home * Patient responded appropriately to Novolog plus IV insulin (BSG's decreased from 407 to 254 mg/dl) - hold off on insulin drip for now * Previous admission requiring ~40-50 units basal insulin while on steroids. 30 units given this AM. * Will give an additional 10 units now 2nd hyperglycemia this AM and missed basal dose yesterday * Will give slightly lower dose this PM as will have already received 40 units by that point * Novolog based on previous admission data while on steroids - this will need to be loosened when steroids are tapered * Two overnight checks 08/30 * Steroids continue - no change to current dosing at this time * Will adjust Levemir slightly, but will try to keep HS dose similar to home regimen to help ease transition back * OK to tighten correction factor and carb ratio on Novolog order 2nd persistent post-prandial elevations * OK to decrease overnight checks to x1 PLAN FOR INPATIENT GLYCEMIC CONTROL: * Basal insulin with LEVEMIR qAM based on BSG: * 25 units for BSG less than 150 mg/dL * 35 units for BSG greater than 150 mg/dL * Basal insulin with LEVEMIR qPM based on BSG: * 10 units for BSG less than 120 mg/dL * 15 units for BSG 120-180 mg/dL * 20 units for BSG greater than 180 mg/dL * Correctional Insulin with NOVOLOG per scale ACHS or Q6hrs while NPO - plus one overnight check * Goal Range: Low 110 mg/dL - High 150 mg/dL * Correction Factor: 10 mg/dL/unit * Nutritional / Prandial insulin per carb ratio of 1 unit per 4 grams CHO consumed * Please note that the plan above was derived based on current level of insulin resistance and hospital stress. These recommendations are appropriate for inpatient admission only. Plan of care upon discharge will need to be reassessed to avoid potential outpatient hypo/hyperglycemia. Thank you.
[2017-08-30] MEDS: VANCOMYCIN INJ 2,000 MG in SODIUM CHLORIDE 0.9% 500ML 500 ML IV SCH (20:18)
[2017-08-30] MEDS ORDERED: INSULIN DETEMIR FLEXPEN/FLEX TOUCH 100 UNITS/ML 3ML SQ SCH (21:00)
[2017-08-30] MEDS: AZITHROMYCIN IV 500 MG in DEXTROSE 5% 250ML 250 ML IV SCH (21:57)
[2017-08-30] MEDS: TAMSULOSIN HCL 0.4 MG CAP PO SCH (21:58)
[2017-08-30] MEDS: ATORVASTATIN 20 MG TAB PO SCH (21:59)
[2017-08-30] MEDS: FAMOTIDINE 20 MG TAB PO SCH (22:00)
[2017-08-31 00:02] VITALS: PULSE 65; TEMP 36.3; O2SAT 96
[2017-08-31 00:03] VITALS: BP_SYST 104; BP_SYST 138; BP_DIAS 70; BP_DIAS 82; PULSE 65; PULSE 73; TEMP 36.3; TEMP 36.8; O2SAT 92; O2SAT 96
[2017-08-31] MEDS ORDERED: INSULIN ASPART 100 UNITS/ML 3 ML PEN SC ONE (02:00)
[2017-08-31 02:09] VITALS: PULSE 67; O2SAT 95
[2017-08-31] MEDS: ALBUT/IPRATROP 3MG/0.5MG NEB 3 ML VIAL INH SCH ×2 (02:09→07:02)
[2017-08-31] MEDS: METHYLPREDNISOLONE IV 40 MG in SYRINGE 0 ML IV SCH ×2 (03:43→11:37)
[2017-08-31] MEDS: HEPARIN SOD 5000 UNIT/0.5 ML CARP SQ SCH (05:49)
[2017-08-31 06:58] VITALS: BP 135/74; PULSE 69; TEMP 36.6; O2SAT 97
[2017-08-31 07:03] VITALS: PULSE 92; O2SAT 96
[2017-08-31 08:33] LABS: CREATININE 1.52 mg/dl (0.60-1.40)
[2017-08-31] MEDS ORDERED: INSULIN DETEMIR FLEXPEN/FLEX TOUCH 100 UNITS/ML 3ML SQ SCH (09:00)
[2017-08-31] MEDS: INSULIN ASPART 100 UNITS/ML 3 ML PEN SC SCH ×2 (09:12→12:09)
[2017-08-31] MEDS: FLUTICASONE/SALMETEROL 250/50 (ADVAIR) 14 PUFF/1 INHALER INH SCH (09:15)
[2017-08-31] MEDS: DUTASTERIDE 0.5MG PO SCH (09:15)
[2017-08-31] MEDS: HYDROCORTISONE 10 MG TAB PO SCH (09:15)
[2017-08-31] MEDS: DOCUSATE SODIUM 100 MG CAP PO SCH (09:15)
[2017-08-31] MEDS: FUROSEMIDE 40 MG TAB PO SCH (09:16)
[2017-08-31] MEDS: FLUDROCORTISONE ACETATE 0.1 MG TAB PO SCH (09:16)
[2017-08-31] MEDS: DULOXETINE HCL 60 MG CAP PO SCH (09:16)
[2017-08-31] MEDS: ASPIRIN 81 MG ECTAB PO SCH (09:16)
[2017-08-31] MEDS: MAGNESIUM OXIDE 400 MG TAB PO SCH (09:16)
[2017-08-31] MEDS: POTASSIUM CHLORIDE 20 MEQ TABCR PO SCH (09:16)
[2017-08-31] MEDS: GABAPENTIN 800 MG TAB PO SCH (09:17)
[2017-08-31] MEDS: GABAPENTIN 100 MG CAP PO SCH (09:17)
[2017-08-31] MEDS: PANTOprazole SOD 40 MG TAB PO SCH (09:17)
[2017-08-31] MEDS: CYANOCOBALAMIN 500 MCG TAB (VIT B-12) PO SCH (09:17)
[2017-08-31] MEDS: POLYETHYLENE (MIRALAX) 17 GM PACK PO SCH (09:17)
[2017-08-31] MEDS: LIDODERM (LIDOCAINE) PATCH 5% TD SCH (09:18)
[2017-08-31] MEDS: OXYCODONE HCL 15 MG TABCR (OXYCONTIN) PO SCH (09:27)
[2017-08-31] MEDS: BISACODYL 5 MG TABEC PO SCH (09:27)
[2017-08-31] MEDS ORDERED: AZITHROMYCIN 250 MG TAB PO ONE (10:15)
[2017-08-31] MEDS ORDERED: DOXY-300 PO (10:20)
[2017-08-31] MEDS ORDERED: CEFD1CAP14 PO (10:20)
[2017-08-31] MEDS ORDERED: PRED10TA PO (10:20)
[2017-08-31] MEDS ORDERED: SPRIN/30 INH (10:20)
[2017-08-31] MEDS ORDERED: OXYC15TA89 PO (10:21)
--- NOTE | 2017-08-31 10:24 | Discharge Instructions ---
Discharge Instructions Date of Service Aug 31, 2017. Admission Reason for Admission: Bilateral Pneumonia Discharge Discharge Diagnosis / Problem: pneumonia, COPD exacerbation Discharge Goals Goal(s): Diagnostic testing, Therapeutic intervention Activity Recommendations Activity Level: Assistance Required Therapies: Physical Therapy, Occupational Therapy . Additional Information Patient informed of condition: Yes Advance Directives: Yes DNR: Yes Level of Care: Skilled Communicable Disease: No Prognosis: Improving Instructions / Follow-Up Instructions / Follow-Up a) pneumonia / COPD exacerbation -finish course of antibiotics w doxycycline (next dose tonight) and cefdinir ( next dose tonight) -prednisone taper as ordered (can hold his normal hydrocortisone during that time and resume after prednisone taper is complete) -added spiriva for routine anticholinergic w COPD b) CHF -fluid restrict ~2L daily -sodium restrict less than 2000mg daily -continue current dosing of lasix -BMP next week then as clinically warranted PT/OT for deconditioning O2 to keep pulse ox >90% Current Hospital Diet Patient's current hospital diet: AHA Diet (Heart Healthy), Diabetes Type 2 Diet Discharge Diet Recommended Diet: AHA Diet (Heart Healthy), Low Sodium Diet (2gm Na), Diabetes Type 2 Diet Pending Studies Studies pending at discharge: no Physician Orders On Transfer Additional Orders: noted they would like to update his POLST form Laboratory Results Hemoglobin A1c Test 08/18/17 06:37 Range/Units Estimated Average Glucose 154 mg/dl Hemoglobin A1c 7.0 H 4.5-5.6 % Medical Emergencies . Who to Call and When: Medical Emergencies: If at any time you feel your situation is an emergency, please call 911 immediately. . Non-Emergent Contact Non-Emergency issues call your: Primary Care Provider . . "Provider Documentation" section prepared by Oscar Malik. . Core Measure Problem Core Measures: None
[2017-08-31 11:03] VITALS: BP 135/74; PULSE 92; TEMP 36.6; O2SAT 96
[2017-08-31] MEDS: CEFEPIME IV 2,000 MG in SYRINGE 7.5 ML IV SCH (11:38)
--- NOTE | 2017-08-31 19:26 | Discharge Summary ---
Discharge Summary Date of Service Aug 31, 2017. Discharge Summary Admission Date: Aug 28, 2017 at 22:43 Discharge Date: Aug 31, 2017 Discharge Disposition: senior care facility Principal Diagnosis: hypoxia - multifactorial see below Immunizations: Have You Had Influenza Vaccine: Yes Influenza Vaccine Date: Jun 08, 2013 History of Tetanus Vaccine?: Unknown History of Pneumococcal: Yes History of Hepatitis B Vaccine: Unknown Medication Reconciliation New Medications: Cefdinir (Omnicef) 300 Mg Cap 300 MG PO Q12H, #10 CAP Doxycycline (Monohydrate) (Doxycycline) 100 Mg Cap 1 TAB PO BID, #24 TAB Prednisone Tab (Prednisone) 10 Mg Tab 10 MG PO UD, #42 TAB 6 po x 2 days then 5 po x 2 days then 4 po x 2 days then 3 po x 2 days then 2 po x 2 days then 1 po x 2 days Tiotropium [place] (Spiriva Handihaler) 30 Puff/540 Mcg Aerp 1 CAP INH DAILY, #30 INHALER Continued Medications: Acetaminophen (Tylenol) 500 Mg Tab 1000 MG PO Q12 TAKE AT 0800 & 2000 Aspirin (Aspirin Chewable) 81 Mg Chew 81 MG PO QAM Atenolol (Tenormin) 25 Mg Tab 12.5 MG PO QAM Atorvastatin (Lipitor) 20 Mg Tab 20 MG PO HS Bisacodyl (Bisacodyl) 5 Mg Tab 5 MG PO BID Cyanocobalamin (B-12) 1,000 Mcg Tab 1000 MCG PO QAM Docusate Sodium (Colace) 100 Mg Cap 100 MG PO BID Duloxetine Hcl (Cymbalta) 60 Mg Cap 60 MG PO QAM Dutasteride (Dutasteride) 0.5 Mg Cap 0.5 MG PO DAILY Famotidine (Famotidine) 20 Mg Tab 20 MG PO HS Fiber Laxative (Fiber Laxative) Ea 1 TAB PO DAILY Fludrocortisone Acetate (Florinef) 0.1 Mg Tab 0.1 MG PO BID Fluticasone Prop/Salmeterol (Advair Diskus 250/50 60 Dose) 1 Ea Aerp 1 PUFF INH BID Fluticasone Propionate (Fluticasone Propionate) 120 Sprays/6000 Mcg Inha 2 SPRAYS HEVER QAM Furosemide (Lasix) 40 Mg Tab 40 MG PO DAILY, TAB Gabapentin (Gabapentin) 800 Mg Tab 800 MG PO TID TAKEN ALONG WITH A 100 MG CAPSULE TID TO = 900 MG TID Gabapentin (Neurontin) 100 Mg Cap 100 MG PO TID TAKEN ALONG WITH AN 800 MG CAPSULE TID TO = 900 MG TID Guaifenesin Ext Rel (Mucinex Ext Rel) 600 Mg Tabcr 1200 MG PO Q12 Hydrocortisone (Cortef) 20 Mg Tab 20 MG PO BID, TAB Insulin Aspart 70/30 (Novolog Mix 70/30) Susp 10 UNITS SQ QPM Insulin Aspart Protamine & Asp (Novolog Mix 70/30) 1 Inj Inj 25 UNITS SQ QAM Insulin Detemir (Levemir) 100 Units/Ml Inj 60 UNITS SQ PM Levalbuterol (Levalbuterol HCl) 0.63 Mg/3 Ml Nebu 1 VIAL NEB BID AND ALSO, EVERY 4 HOURS NEEDED FOR WHZ/SOB Lidocaine (Lidocaine) 1 Patch Tdsy 1 PATCH TOP ONAMOFFPM Magnesium Oxide (Mag-Ox) 400 Mg Tab 400 MG PO BID Methenamine Hippurate (Methenamine Hippurate) 1 Gm Tab 1 GM PO HS Metolazone (Zaroxolyn) 2.5 Mg Tab 2.5 MG PO DAILY PRN for WEIGHT GAIN Multiple Vitamins W/ Minerals (Therems M) 1 Tab Tab 1 TAB PO QAM Nitroglycerin (Nitrostat) 0.4 Mg Tab 0.4 MG UT PRN Omeprazole (Prilosec) 20 Mg Capcr 20 MG PO QAM Oxycodone Hcl (Oxycontin) 15 Mg Tab 15 MG PO Q12, #4 TAB (This prescription has been renewed) Polyethylene Glycol 3350 (Miralax) 1 Pow Pow 17 GM PO BID, GM Polyethylene Glycol-Propylene (Systane Ultra) 1 Idania Idania 1 DROPS OPB BID Potassium Chloride (K-Tab) 20 Meq Tab 40 MEQ PO BID @ 1200 AND 2000 Potassium Ext Rel (Klor-Con) 20 Meq Tabcr 60 MEQ PO QAM Simethicone (Cvs Gas Relief) 80 Mg Chw 1 TAB PO QID PRN for Indigestion Tamsulosin Hcl (Flomax) 0.4 Mg Cap 0.4 MG PO HS Trolamine Salicylate (Aspercreme) 10 % Lot 0 TOP BID PRN for ARTHRITIS Hospital Course 86 y/o M w/Hx COPD - home 02, combined CHF, CAD, CKD 3-4, DM, chronic aspiration with recurrent PNM, adrenal insufficiency, chronic Ball w/recurrent UTIs, history of DVT. Resides in a nursing facility. Pt has been admitted to the hospital several times this yr for pneumonia due to aspiration CHF, UTIs, AMS and hypoglycemic episodes. He has exhibited a degree of functional decline over the past year. The pt was hypoxic and febrile on arrival to the ER, requiring BIPAP. His is present at bedside to inform us that his symptoms were of acute onset, included SOB and fever, and began this afternoon. initial CXR is consistent with vascular congestion and superimposed BL infiltrates. Hypoxia Acute Respiratory Failure - Improving, pt has not required bipap for 24 hours now and has transitioned to [facility]. Breath sounds are greatly improved - appeared related to CHF, pneumonia, and COPD Acute on Chronic Combined systolic and diastolic CHF - managed w IV lasix, now compensated overall; home on PO diuretics, follow periodic BMP pneumonia - have to consider as healthcare associated although aspiration possible- -improving, stable for discharge PO abx as above. COPD - continue home inhalers, added spiriva for anticholinergic, steroid taper as above DM - follow, meds as above CKD III - - overall stable within the context of CHF management, follow periodic BMP as outpt CAD - trop is elevated- per previous labs, this is likely chronic - he does have a history of CAD however. - Likely demand ischemia in the setting of CHF and volume overload. - cont ASA, statin, B opal, PRN NTG. Anemia - Hgb dropped from 10.3 to 8.6, negative hemocult this stay - no evidence of acute blood loss, follow periodic CBC as outpt Adrenal insufficiency - continue outpt steroid regimen, can hold baseline steroids while on prednisone as above stable for return to SNF Total Time Spent: Greater than 30 minutes This includes examination of the patient, discharge planning, medication reconciliation, and communication with other providers. Discharge Instructions Please refer to the electronic Patient Visit Report (Discharge Instructions) for additional information.
== END 2017-08-31 12:44 | DRG 291 ==
LOC: EDBD 20:12 → C.EDA 20:15 → C.2E 22:43 → ENRESERV 22:51 → C.MS2W 08-30 15:43
PROVIDERS: ADMIT Internal Medicine; ATTEND Family Medicine
DX: I13.0 Hypertensive heart and chronic kidney disease with heart failure and stage 1 through stage 4 chronic kidney disease, or unspecified chronic kidney disease (principal); I50.43 Acute on chronic combined systolic (congestive) and diastolic (congestive) heart failure; J96.21 Acute and chronic respiratory failure with hypoxia; J18.9 Pneumonia, unspecified organism; E27.40 Unspecified adrenocortical insufficiency; J44.0 Chronic obstructive pulmonary disease with (acute) lower respiratory infection; I24.8 Other forms of acute ischemic heart disease; N18.3 Chronic kidney disease, stage 3 (moderate); E66.3 Overweight; I25.10 Atherosclerotic heart disease of native coronary artery without angina pectoris; E11.22 Type 2 diabetes mellitus with diabetic chronic kidney disease; D64.9 Anemia, unspecified; Z66 Do not resuscitate; Z79.4 Long term (current) use of insulin; Z79.82 Long term (current) use of aspirin; Z79.899 Other long term (current) drug therapy; Z87.891 Personal history of nicotine dependence; Z99.81 Dependence on supplemental oxygen; Z86.718 Personal history of other venous thrombosis and embolism

== ENCOUNTER → 2017-09-02 | Outpatient (CLI) | payer OTHER ==
[~2017-09-02] MED LIST changes: +CEFD1CAP14 PO; +DOXY-300 PO; +FRS/40 PO; -HYD10 PO; +HYDR20TA PO; -LSX40 PO; +PRED10TA PO; +SPRIN/30 INH
[2017-09-02 09:09] LABS: BLOOD UREA NITROGEN 29 mg/dl (7-18); CALCIUM 8.6 mg/dl (8.5-10.1); CARBON DIOXIDE 33 mmol/L (21-32); GLUCOSE 95 mg/dl (70-99); SODIUM 146 mmol/L (136-145)
== END | disposition home or self-care (01) ==
LOC: C.LABVPSUA 08:40
PROVIDERS: ATTEND Internal Medicine Critical Care Medicine
DX: I50.9 Heart failure, unspecified (principal)

== ENCOUNTER 2017-09-16 18:44 | Emergency (ER) | payer OTHER ==
[~2017-09-16] VITALS: Ht 188 cm; Wt 104.3 kg
[2017-09-16 19:00] VITALS: TEMP 37.1; Ht 188 cm; Wt 104.3 kg
[2017-09-16] MEDS ORDERED: MoRPHine SULFATE 4 MG/ML 1 ML CARP\\VIAL IV STA (19:02)
[2017-09-16] MEDS ORDERED: ONDANSETRON INJ 2 MG/ML 2 ML VIAL IV STA (19:02)
[2017-09-16 19:40] LABS: CREATININE 1.51 mg/dl (0.60-1.40); POTASSIUM 4.7 mmol/L (3.5-5.1)
[2017-09-16 19:44] LABS: HEMATOCRIT 37.7 % (42-52); HEMOGLOBIN 10.6 g/dL (14.0-18.0); MEAN CELL VOLUME 80.7 fL (80-100); MEAN CORPUSCULAR HEMOGLOBIN 22.7 pg (25-34); MEAN CORPUSCULAR HGB CONC 28.1 g/dl (32-36); MEAN PLATELET VOLUME 9.8 fL (7.4-10.4); NUCLEATED RED BLOOD CELL ABS 0.05 K/uL (0-0); PLATELET COUNT 190 K/uL (130-400); RED CELL DISTRIBUTION WIDTH CV 21.3 % (11.5-14.5); RED CELL DISTRIBUTION WIDTH SD 62.3 fL (36.4-46.3); WHITE BLOOD COUNT 7.55 K/uL (4.8-10.8)
[2017-09-16 19:48] LABS: BASO % 0.1 %; BASO ABS # 0.01 K/uL (0-0.2); EOS % 1.1 %; EOS ABS # 0.08 K/uL (0-0.5); IG# 0.04 K/uL (0.00-0.02); LYMPH % 12.1 %; LYMPH ABS # 0.91 K/uL (1.2-3.4); MONO % 11.4 %; MONO ABS # 0.86 K/uL (0.11-0.59); NEUT % 74.8 %; NEUT ABS # 5.65 K/uL (1.4-6.5)
--- NOTE | 2017-09-16 20:07 | DIAGNOSTIC IMAGING REPORT ---
R VENOUS DOPPLER UPR EXT UNIL HISTORY: Pain. Edema. RUE swelling COMPARISON STUDY: None. FINDINGS: The internal jugular vein is patent. There is normal flow within the subclavian vein. There is normal flow and compressibility within the left axillary, basilic, brachial, radial, ulnar, and visualized cephalic veins. IMPRESSION: No DVT within the upper extremity. The above report was generated using voice recognition software. It may contain grammatical, syntax or spelling errors. Electronically signed by: Jaun Kim M.D. 09/16/2017 8:06 PM Dictated Date/Time: 09/16/2017 8:06 PM
[2017-09-16] MEDS ORDERED: CYM/30 PO (20:22)
--- NOTE | 2017-09-16 20:26 | DIAGNOSTIC IMAGING REPORT ---
R HAND MIN 3 VIEWS ROUTINE CLINICAL HISTORY: r hand pain pain COMPARISON: None. DISCUSSION: Generalized osteoarthritic change throughout the osseous structures. This is most prominent involving the middle and distal interphalangeal joints and to a lesser extent intercarpal as well as radiocarpal joints. No acute bony and amount. Mild generalized soft tissue edematous change. IMPRESSION: Generalized osteoarthritic change with associated generalized soft tissue edema. No acute posttraumatic abnormality. The above report was generated using voice recognition software. It may contain grammatical, syntax or spelling errors. Electronically signed by: Jaun Kim M.D. 09/16/2017 8:24 PM Dictated Date/Time: 09/16/2017 8:23 PM
[2017-09-16] MEDS ORDERED: SPIRIVA 18 MCG INH (20:27)
[2017-09-16] MEDS ORDERED: MULTTAB63 PO (20:29)
[2017-09-16] MEDS ORDERED: OXYC15TA89 PO (20:41)
[2017-09-16 20:42] VITALS: BP 111/91; PULSE 98; O2SAT 98
[2017-09-16] MEDS ORDERED: GABA600T PO (20:50)
[2017-09-16] MEDS ORDERED: XPNINS INH (21:00)
[2017-09-16] MEDS ORDERED: CEPHALEXIN MONOHYDRATE 250 MG CAP PO ONE (21:00)
[2017-09-16] MEDS ORDERED: CEPH-571 PO (21:05)
--- NOTE | 2017-09-16 23:25 | EMERGENCY ROOM VISIT NOTE ---
History Report prepared by Hood: Domingo Noel Under the Supervision of: Madhav NavarroO. First contact with patient: 18:54 Chief Complaint: ARM PAIN Stated Complaint: R HAND SWELLING, FEVER History of Present Illness The patient is an 87 year old male who presents to the Emergency Room from the [facility] with complaints of persistent right upper extremity pain that started this morning. He rates his pain as a 9 out of 10 in severity. The patient notes that he has right shoulder pain but that the majority of his pain is in his right hand. He notes that this pain radiates upwards to the shoulder. Movement or palpation of the backside of his hand makes pain worse. He says that he is not sure when the redness started. He has never had this before. He denies any trauma. No paresthesias. He states that he took OxyContin with no relief. He denies any numbness, weakness, cough, runny nose, abdominal pain, or pain or burning with urination. He also denies any recent falls or trauma. He is on 2 liters of oxygen all the time. Source of History: patient Onset: This morning Position: other (right upper extremity) Symptom Intensity: 9/10 pain Quality: other (pain) Timing: other (persistent) Modifying Factors (Worsening): movement Associated Symptoms: No cough (or runny nose), No abdominal pain, No urinary symptoms, No weakness, No numbness Review of Systems See HPI for pertinent positives & negatives. A total of 10 systems reviewed and were otherwise negative. Past Medical & Surgical Medical Problems: (1) Acute exacerbation of CHF (congestive heart failure) (2) Acute on chronic respiratory failure with hypoxia and hypercapnia (3) Acute renal failure (4) Altered mental status (5) Anemia (6) Aspiration pneumonia (7) Asthma (8) Bilateral pneumonia (9) chronic kidney disease (10) Chronic pain (11) COPD (chronic obstructive pulmonary disease) (12) Coronary artery disease (13) CVA (cerebrovascular accident) (14) Essential hypertension (15) HTN (hypertension) (16) Hx of diabetes mellitus (17) Hypercholesterolemia (18) Hyperparathyroidism (19) Hypotension (20) Influenza A (21) Lower GI bleed (22) Lung nodules (23) NH (myocardial infarction) (24) Peripheral vascular disease (25) Staphylococcus aureus pneumonia (26) TIA (transient ischemic attack) (27) Urinary retention (28) Urosepsis Surgical Problems: (1) H/O heart artery stent Family History FH: heart disease Hypertension Social History Smoking Status: Former Smoker Alcohol Use: occasionally Drug Use: none Marital Status: Housing Status: assisted living Occupation Status: retired Current/Historical Medications Scheduled Acetaminophen (Tylenol), 1,000 MG PO Q12 Aspirin (Aspirin Chewable), 81 MG PO QAM Atenolol (Tenormin), 12.5 MG PO QAM Bisacodyl (Bisacodyl), 5 MG PO BID Cephalexin (Keflex), 1 CAP PO TID Cyanocobalamin (B-12), 1,000 MCG PO QAM Docusate Sodium (Colace), 100 MG PO BID Duloxetine HCl (Cymbalta), 30 MG PO DAILY Dutasteride (Dutasteride), 0.5 MG PO DAILY Famotidine (Famotidine), 20 MG PO HS Fiber Laxative (Fiber Laxative), 1 TAB PO DAILY Fludrocortisone Acetate (Florinef), 0.1 MG PO BID Fluticasone Prop/Salmeterol (Advair Diskus 250/50 60 Dose), 1 PUFF INH BID Fluticasone Propionate (Fluticasone Propionate), 2 SPRAYS HEVER QAM Furosemide (Lasix), 40 MG PO DAILY Gabapentin (Neurontin), 600 MG PO TID Guaifenesin Ext Rel (Mucinex Ext Rel), 1,200 MG PO Q12 Hydrocortisone (Cortef), 20 MG PO BID Insulin Aspart 70/30 (Novolog Mix 70/30), 10 UNITS SQ QPM Insulin Aspart Protamine & Asp (Novolog Mix 70/30), 25 UNITS SQ QAM Insulin Detemir (Levemir), 20 UNITS SQ PM Levalbuterol (Levalbuterol HCl), 1 VIAL NEB BID Lidocaine (Lidocaine), 1 PATCH TOP ONAMOFFPM Magnesium Oxide (Mag-Ox), 400 MG PO BID Methenamine Hippurate (Methenamine Hippurate), 1 GM PO HS Multiple Vitamins W/ Minerals (Therems M), 1 TAB PO QAM Nitroglycerin (Nitrostat), 0.4 MG UT PRN Oxycodone Hcl (Oxycontin), 15 MG PO Q12 Polyethylene Glycol 3350 (Miralax), 17 GM PO BID Polyethylene Glycol-Propylene (Systane Ultra), 1 DROPS OPB BID Potassium Chloride (K-Tab), 40 MEQ PO BID Potassium Ext Rel (Klor-Con), 60 MEQ PO QAM Tamsulosin Hcl (Flomax), 0.4 MG PO HS [Spiriva 18 Mcg], 1 PUFF INH DAILY Scheduled PRN Levalbuterol (Levalbuterol HCl), 3 ML INH Q4H PRN for SOB/Wheezing Metolazone (Zaroxolyn), 2.5 MG PO DAILY PRN for WEIGHT GAIN Simethicone (Cvs Gas Relief), 1 TAB PO QID PRN for Indigestion Trolamine Salicylate (Aspercreme), 0 TOP BID PRN for ARTHRITIS Allergies Coded Allergies: No Known Allergies (Unverified , 08/28/17) Physical Exam Vital Signs Date Time Temp Pulse Resp B/P (MAP) Pulse Ox O2 Delivery O2 Flow Rate FiO2 09/16/17 20:42 98 24 111/91 98 Nasal Cannula 2.0 09/16/17 19:00 37.1 82 16 159/72 96 Nasal Cannula 2.0 Physical Exam GENERAL: Sitting up in bed, alert, chronically ill-appearing, disheveled EYE EXAM: normal conjunctiva. OROPHARYNX: no exudate, no erythema, lips, buccal mucosa, and tongue normal and mucous membranes are moist NECK: supple, no nuchal rigidity, no adenopathy, non-tender LUNGS: Clear to auscultation. Normal chest wall mechanics HEART: no murmurs, S1 normal and S2 normal ABDOMEN: abdomen soft, non-tender, normo-active bowel sounds, no masses, no rebound or guarding. BACK: Back is symmetrical on inspection and there is no deformity, no midline tenderness, no CVA tenderness. SKIN: no rashes and no bruising UPPER EXTREMITIES: Flexion/extension of shoulder and elbow without pain or weakness. Radial pulses 2/4, gross sensations intact. Swelling and erythema on dorsal aspect right hand tracking to wrist. Significant pain on palpation. Skin intact. Skin is warm. LOWER EXTREMITIES: No pitting edema. NEURO EXAM: Normal sensorium, cranial nerves II-XII grossly intact, normal speech. Medical Decision & Procedures ER Provider Diagnostic Interpretation: Radiology results as stated below per my review and the radiologist's interpretation: R VENOUS DOPPLER UPR EXT UNIL HISTORY: Pain. Edema. RUE swelling COMPARISON STUDY: None. FINDINGS: The internal jugular vein is patent. There is normal flow within the subclavian vein. There is normal flow and compressibility within the left axillary, basilic, brachial, radial, ulnar, and visualized cephalic veins. IMPRESSION: No DVT within the upper extremity. The above report was generated using voice recognition software. It may contain grammatical, syntax or spelling errors. Electronically signed by: Jaun Kim M.D. 09/16/2017 8:06 PM Dictated Date/Time: 09/16/2017 8:06 PM R HAND MIN 3 VIEWS ROUTINE CLINICAL HISTORY: r hand pain pain COMPARISON: None. DISCUSSION: Generalized osteoarthritic change throughout the osseous structures. This is most prominent involving the middle and distal interphalangeal joints and to a lesser extent intercarpal as well as radiocarpal joints. No acute bony and amount. Mild generalized soft tissue edematous change. IMPRESSION: Generalized osteoarthritic change with associated generalized soft tissue edema. No acute posttraumatic abnormality. The above report was generated using voice recognition software. It may contain grammatical, syntax or spelling errors. Electronically signed by: Jaun Kmi M.D. 09/16/2017 8:24 PM Dictated Date/Time: 09/16/2017 8:23 PM Laboratory Results 09/16/17 19:10 Red Blood Count 4.67, Mean Corpuscular Volume 80.7, Mean Corpuscular Hemoglobin 22.7, Mean Corpuscular Hemoglobin Concent 28.1, Mean Platelet Volume 9.8, Neutrophils (%) (Auto) 74.8, Lymphocytes (%) (Auto) 12.1, Monocytes (%) (Auto) 11.4, Eosinophils (%) (Auto) 1.1, Basophils (%) (Auto) 0.1, Neutrophils # (Auto ) 5.65, Lymphocytes # (Auto) 0.91, Monocytes # (Auto) 0.86, Eosinophils # (Auto ) 0.08, Basophils # (Auto) 0.01 09/16/17 19:10 Test 09/16/17 19:10 White Blood Count 7.55 K/uL (4.8-10.8) Red Blood Count 4.67 M/uL (4.7-6.1) Hemoglobin 10.6 g/dL (14.0-18.0) Hematocrit 37.7 % (42-52) Mean Corpuscular Volume 80.7 fL (80-100) Mean Corpuscular Hemoglobin 22.7 pg (25-34) Mean Corpuscular Hemoglobin Concent 28.1 g/dl (32-36) Platelet Count 190 K/uL (130-400) Mean Platelet Volume 9.8 fL (7.4-10.4) Neutrophils (%) (Auto) 74.8 % Lymphocytes (%) (Auto) 12.1 % Monocytes (%) (Auto) 11.4 % Eosinophils (%) (Auto) 1.1 % Basophils (%) (Auto) 0.1 % Neutrophils # (Auto) 5.65 K/uL (1.4-6.5) Lymphocytes # (Auto) 0.91 K/uL (1.2-3.4) Monocytes # (Auto) 0.86 K/uL (0.11-0.59) Eosinophils # (Auto) 0.08 K/uL (0-0.5) Basophils # (Auto) 0.01 K/uL (0-0.2) RDW Standard Deviation 62.3 fL (36.4-46.3) RDW Coefficient of Variation 21.3 % (11.5-14.5) Immature Granulocyte % (Auto) 0.5 % Immature Granulocyte # (Auto) 0.04 K/uL (0.00-0.02) Nucleated RBC Absolute Count (auto) 0.05 K/uL (0-0) Nucleated Red Blood Cells % 0.7 % Large Platelets 1+ Anisocytosis PRESENT Ovalocytes 1+ Anion Gap 5.0 mmol/L (3-11) Est Creatinine Clear Calc Drug Dose 44.4 ml/min Estimated GFR () 47.4 Estimated GFR (Non- 40.9 BUN/Creatinine Ratio 10.4 (10-20) Calcium Level 9.0 mg/dl (8.5-10.1) Laboratory results per my review. Medications Administered Medications (Trade) Dose Ordered Sig/Cole Route Start Time Stop Time Status Last Admin Dose Admin Morphine Sulfate (MoRPHine SULFATE INJ) 4 mg NOW STAT IV 09/16/17 19:02 09/16/17 19:04 DC 09/16/17 19:18 4 MG Ondansetron HCl (Zofran Inj) 4 mg NOW STAT IV 09/16/17 19:02 09/16/17 19:04 DC 09/16/17 19:18 4 MG Cephalexin Monohydrate (Keflex Cap) 500 mg NOW ONCE PO 09/16/17 21:00 09/16/17 21:01 DC 09/16/17 21:05 500 MG ED Course ED COURSE: Vital signs were reviewed and showed hypertensive situational vitals. The patients medical record was reviewed The above diagnostic studies were performed and reviewed. ED treatments and interventions as stated above. 1804: The patient was evaluated in room A12B. A complete history and physical examination was performed. 1901: Zofran Inj 4 mg IV, Morphine Sulfate Inj 4 mg IV. 2058: Upon reevaluation, the patient is resting.I discussed my findings with the patient and he understands and agrees with the treatment plan. Based on the patients age, coexisting illnesses, exam and lab findings the decision to treat as an outpatient was made. The patient remained stable while under my care. The patient appeared well at the time of discharge. 2100: Keflex Cap 500 mg PO. Medical Decision Differential diagnosis includes etiologies such as cellulitis, abscess, MRSA infection, DVT, necrotizing fasciitis, dermatitis, drug eruption, as well as others were entertained. Patient is an 87-year-old male that presents to ER for right arm pain which started earlier this morning. On exam it does appear that he has a mild cellulitis over the dorsal aspect. Skin is intact. No fevers. Vitals are stable. Chronically on 2 L. CBC shows a mild anemia. BMP unremarkable. X- ray of the hand shows no obvious fractures. Duplex was negative. Patient was given Keflex. Updated family at bedside. He was discharged back to retirement facility. Medication Reconcilliation Current Medication List: was personally reviewed by me Blood Pressure Screening Patient's blood pressure: Elevated blood pressure Blood pressure disposition: Elevated BP felt to be situational Impression Primary Impression: Right hand pain Additional Impression: Cellulitis Scribe Attestation The scribe's documentation has been prepared under my direction and personally reviewed by me in its entirety. I confirm that the note above accurately reflects all work, treatment, procedures, and medical decision making performed by me. Departure Information Dispostion Home / Self-Care Prescriptions Cephalexin (KEFLEX) 500 Mg Cap 1 CAP PO TID for 10 Days, #30 CAP Prov: Oscar Crandall, DO 09/16/17 Referrals [facility] (PCP) Patient Instructions Cellulitis - [facility], [facility] Additional Instructions PLease follow up with your PCP within 24hrs. PLease take the antibiotics as prescribed. Any fevers greater then 100.4, worsening pain, spreading of the redness, nausea, vomiting or any other worsening signs or symptoms. Problem Qualifiers Additional Impression: Cellulitis Site of cellulitis: extremity Site of cellulitis of extremity: upper extremity Laterality: right Qualified Codes: L03.113 - Cellulitis of right upper limb
== END 2017-09-16 21:36 | disposition home or self-care (01) ==
LOC: EDBD 18:44 → C.EDA 18:46
DX: M79.641 Pain in right hand (principal); L03.113 Cellulitis of right upper limb; I50.9 Heart failure, unspecified; N17.9 Acute kidney failure, unspecified; J45.909 Unspecified asthma, uncomplicated; D64.9 Anemia, unspecified; Z87.01 Personal history of pneumonia (recurrent); I25.10 Atherosclerotic heart disease of native coronary artery without angina pectoris; Z86.73 Personal history of transient ischemic attack (TIA), and cerebral infarction without residual deficits; I11.0 Hypertensive heart disease with heart failure; E11.9 Type 2 diabetes mellitus without complications; E78.00 Pure hypercholesterolemia, unspecified; I73.9 Peripheral vascular disease, unspecified; I25.2 Old myocardial infarction; E21.3 Hyperparathyroidism, unspecified; Z82.49 Family history of ischemic heart disease and other diseases of the circulatory system; Z99.81 Dependence on supplemental oxygen; Z87.891 Personal history of nicotine dependence; Z79.82 Long term (current) use of aspirin; Z79.4 Long term (current) use of insulin; Z79.899 Other long term (current) drug therapy

== ENCOUNTER 2017-10-15 16:07 | Inpatient (IN) | payer OTHER ==
[~2017-10-15] VITALS: Ht 185.4 cm; Wt 100.3 kg
[~2017-10-15 16:07] MED LIST changes: -ASPCH81X PO; -CEFD1CAP14 PO; -DOXY-300 PO; -DULO60CA44 PO; -DUTA1CAP3 PO; -FAMO1TAB47 PO; -FIBER PO; -FRS/40 PO; -GABA-112 PO; -HYDR20TA PO; -LPT20 PO; -METH-1305 PO; -MULTTAB63 PO; -NRN800 PO; -POLY335019 PO; -PRED10TA PO; -PRLSR20 PO; -SPRIN/30 INH; -TAMS0.4C38 PO; +XPNINS INH
[2017-10-15] MEDS ORDERED: METHYLPREDNISOLONE 125 MG VIAL IV STA (16:15)
[2017-10-15] MEDS ORDERED: FUROSEMIDE 40 MG/4 ML VIAL IV STA (16:15)
[2017-10-15] MEDS ORDERED: ALBUT/IPRATROP 3MG/0.5MG NEB 3 ML VIAL INH ONE (16:15)
[2017-10-15 16:55] VITALS: PULSE 75; O2SAT 98
--- NOTE | 2017-10-15 16:56 | DIAGNOSTIC IMAGING REPORT ---
CHEST ONE VIEW PORTABLE HISTORY: Atypical CHEST PAIN COMPARISON: None. FINDINGS: Emphysema. Chronic interstitial thickening. Scattered developed opacity seen within the right midlung zone, lung bases, and a new irregular opacity within the left upper lobe. No pneumothorax. No pleural effusions. The heart remains mildly enlarged. IMPRESSION: Chronic changes with new scattered airspace opacities suggestive of a multifocal pneumonia. One to 2 month chest x-ray follow-up is recommended to ensure resolution. Electronically signed by: Aubrey Kalpan M.D. 10/15/2017 4:54 PM Dictated Date/Time: 10/15/2017 4:50 PM
[2017-10-15 16:59] LABS: HEMATOCRIT 32.7 % (42-52); HEMOGLOBIN 9.1 g/dL (14.0-18.0); MEAN CELL VOLUME 81.1 fL (80-100); MEAN CORPUSCULAR HEMOGLOBIN 22.6 pg (25-34); MEAN CORPUSCULAR HGB CONC 27.8 g/dl (32-36); MEAN PLATELET VOLUME 9.6 fL (7.4-10.4); NUCLEATED RED BLOOD CELL ABS 0.07 K/uL (0-0); PLATELET COUNT 250 K/uL (130-400); RED CELL DISTRIBUTION WIDTH CV 20.5 % (11.5-14.5); RED CELL DISTRIBUTION WIDTH SD 60.6 fL (36.4-46.3); WHITE BLOOD COUNT 6.14 K/uL (4.8-10.8)
[2017-10-15] MEDS ORDERED: FENTANYL CITRATE INJ 50 MCG/1 ML 2 ML VIAL IV STA (16:59)
[2017-10-15 17:00] LABS: ALT/SGPT 18 U/L (12-78); AST/SGOT 12 U/L (15-37); BLOOD UREA NITROGEN 15 mg/dl (7-18); CALCIUM 8.9 mg/dl (8.5-10.1); CARBON DIOXIDE 31 mmol/L (21-32); CREATININE 1.41 mg/dl (0.60-1.40); GLUCOSE 106 mg/dl (70-99); LIPASE 51 U/L (73-393); POTASSIUM 4.6 mmol/L (3.5-5.1); SODIUM 143 mmol/L (136-145)
[2017-10-15 17:03] LABS: BASO % 0.3 %; BASO ABS # 0.02 K/uL (0-0.2); EOS ABS # 0.31 K/uL (0-0.5); IG# 0.04 K/uL (0.00-0.02); LYMPH % 11.2 %; LYMPH ABS # 0.69 K/uL (1.2-3.4); MONO % 10.9 %; MONO ABS # 0.67 K/uL (0.11-0.59); NEUT % 71.9 %; NEUT ABS # 4.41 K/uL (1.4-6.5)
[2017-10-15 17:06] LABS: ALKALINE PHOSPHATASE 91 U/L (45-117); TOTAL PROTEIN 6.8 gm/dl (6.4-8.2)
[2017-10-15] MEDS ORDERED: XOPENEX NEB NEB (17:36)
[2017-10-15] MEDS ORDERED: INSU70IN2 SC (17:36)
[2017-10-15] MEDS ORDERED: OXYC15TA89 PO (17:36)
[2017-10-15 17:53] LABS: INFLUENZA A PCR Neg for Influ A (NEG); INFLUENZA B PCR Neg for Influ B (NEG)
[2017-10-15] MEDS ORDERED: CEFEPIME IV 1,000 MG in DEXTROSE 5% 100ML 100 ML IV STA (17:57)
[2017-10-15] MEDS ORDERED: VANCOMYCIN IV 1,500 MG in SODIUM CHLORIDE 0.9% 500ML 500 ML IV STA (17:57)
[2017-10-15] MEDS ORDERED: AZITHROMYCIN IV 500 MG in DEXTROSE 5% 250ML 250 ML IV STA (17:57)
[2017-10-15] MEDS ORDERED: VANCOMYCIN CONSULT ACTIVE PRN (18:00)
[2017-10-15] MEDS ORDERED: ASPIRIN 81 MG CHEW PO STA (18:15)
--- NOTE | 2017-10-15 18:41 | EMERGENCY ROOM VISIT NOTE ---
History Report prepared by Hood: Shandra Chandler Under the Supervision of: Dr. John Shine M.D. First contact with patient: 16:08 Stated Complaint: CHEST PAIN History of Present Illness The patient is an 87 year old male who presents to the Emergency Room with complaints of persistent chest pain starting 30 minutes ago. The patient presents to the ED by EMS. The pain is in the left side of his chest and goes down his left arm. He describes the pain as a tightness. The patient has a history of AR, but states this pain is different. He is feeling more SOB than usual. He has a history of COPD and normally wears 2 L of oxygen. He denies any cough, fever, chills, nausea, vomiting, or diarrhea. He has had cellulitis in his right hand for the past 2 weeks for which he had a course of antibiotics. He states that he has gained water weight recently. He is not on blood thinners. He is on a water pill. Source of History: patient Onset: 30 minutes ago Position: chest (left) Quality: other (tightness) Timing: other (persistent) Associated Symptoms: + SOB, No fevers, No chills, No cough, No nausea, No vomiting, No diarrhea Note: Pt reports left arm pain. Review of Systems See HPI for pertinent positives and negatives. A total of ten systems were reviewed and were otherwise negative. Past Medical & Surgical Medical Problems: (1) Acute exacerbation of CHF (congestive heart failure) (2) Acute on chronic respiratory failure with hypoxia and hypercapnia (3) Acute renal failure (4) Altered mental status (5) Anemia (6) Aspiration pneumonia (7) Asthma (8) Bilateral pneumonia (9) chronic kidney disease (10) Chronic pain (11) COPD (chronic obstructive pulmonary disease) (12) Coronary artery disease (13) CVA (cerebrovascular accident) (14) Essential hypertension (15) HTN (hypertension) (16) Hx of diabetes mellitus (17) Hypercholesterolemia (18) Hyperparathyroidism (19) Hypotension (20) Influenza A (21) Lower GI bleed (22) Lung nodules (23) AR (myocardial infarction) (24) Peripheral vascular disease (25) Staphylococcus aureus pneumonia (26) TIA (transient ischemic attack) (27) Urinary retention (28) Urosepsis Surgical Problems: (1) H/O heart artery stent Family History FH: heart disease Hypertension Social History Smoking Status: Former Smoker Drug Use: none Marital Status: Housing Status: assisted living Occupation Status: retired Current/Historical Medications Scheduled Acetaminophen (Tylenol), 1,000 MG PO Q12 Aspirin (Aspirin Chewable), 81 MG PO QAM Atenolol (Tenormin), 12.5 MG PO QAM Bisacodyl (Bisacodyl), 5 MG PO BID Cyanocobalamin (B-12), 1,000 MCG PO QAM Docusate Sodium (Colace), 100 MG PO BID Duloxetine HCl (Cymbalta), 30 MG PO DAILY Dutasteride (Dutasteride), 0.5 MG PO DAILY Famotidine (Famotidine), 20 MG PO HS Fiber Laxative (Fiber Laxative), 1 TAB PO DAILY Fludrocortisone Acetate (Florinef), 0.1 MG PO BID Fluticasone Prop/Salmeterol (Advair Diskus 250/50 60 Dose), 1 PUFF INH BID Fluticasone Propionate (Fluticasone Propionate), 2 SPRAYS HEVER QAM Furosemide (Lasix), 40 MG PO DAILY Gabapentin (Neurontin), 600 MG PO TID Guaifenesin Ext Rel (Mucinex Ext Rel), 1,200 MG PO Q12 Hydrocortisone (Cortef), 20 MG PO BID Insulin Aspart 70/30 (Novolog Mix 70/30), 10 UNITS SQ QPM Insulin Aspart Protamine & Asp (Novolog Mix 70/30), 25 UNITS SQ QAM Insulin Detemir (Levemir), 20 UNITS SQ PM Levalbuterol (Levalbuterol HCl), 1 VIAL NEB BID Lidocaine (Lidocaine), 1 PATCH TOP ONAMOFFPM Magnesium Oxide (Mag-Ox), 400 MG PO BID Methenamine Hippurate (Methenamine Hippurate), 1 GM PO HS Multiple Vitamins W/ Minerals (Therems M), 1 TAB PO QAM Nitroglycerin (Nitrostat), 0.4 MG UT PRN Oxycodone Hcl (Oxycontin), 15 MG PO Q12 Polyethylene Glycol 3350 (Miralax), 17 GM PO BID Polyethylene Glycol-Propylene (Systane Ultra), 1 DROPS OPB BID Potassium Chloride (K-Tab), 40 MEQ PO BID Tamsulosin Hcl (Flomax), 0.4 MG PO HS [Spiriva 18 Mcg], 1 PUFF INH DAILY Scheduled PRN Metolazone (Zaroxolyn), 2.5 MG PO DAILY PRN for WEIGHT GAIN Simethicone (Cvs Gas Relief), 1 TAB PO QID PRN for Indigestion Trolamine Salicylate (Aspercreme), 0 TOP BID PRN for ARTHRITIS [Xopenex Neb], 1 PUFF NEB Q4 PRN for Allergies Coded Allergies: No Known Allergies (Unverified , 08/28/17) Physical Exam Vital Signs Date Time Temp Pulse Resp B/P (MAP) Pulse Ox O2 Delivery O2 Flow Rate FiO2 10/15/17 18:00 67 18 138/79 97 Nebulizer 10/15/17 16:55 75 12 98 Nasal Cannula 4.0 10/15/17 16:26 67 10/15/17 16:10 98 Nasal Cannula 4.0 10/15/17 16:10 36.8 68 18 147/82 98 Nasal Cannula 4.0 10/15/17 16:10 98 Nasal Cannula 4.0 Physical Exam GENERAL: Awake, alert, uncomfortable and fatigued-appearing, in no distress HENT: Normocephalic, atraumatic. Dry mucous membranes, otherwise oropharynx unremarkable. EYES: Normal conjunctiva. Sclera non-icteric. NECK: Supple. No nuchal rigidity. FROM. No JVD. RESPIRATORY: Diminished breath sounds throughout with scant wheeze. CARDIAC: Regular rate, normal rhythm. Extremities warm and well perfused. Pulses equal. ABDOMEN: Soft, non-distended. No tenderness to palpation. No rebound or guarding. No masses. RECTAL: Deferred. MUSCULOSKELETAL: Chest examination reveals no tenderness. The back is symmetrical on inspection without obvious abnormality. There is no CVA tenderness to palpation. No joint edema. LOWER EXTREMITIES: Calves are equal size bilaterally and non-tender. 2+ pitting edema. No discoloration. NEURO: Normal sensorium. No sensory or motor deficits noted. SKIN: No rash or jaundice noted. Medical Decision & Procedures ER Provider Diagnostic Interpretation: Radiology results as stated below per my review and radiologist interpretation: CHEST ONE VIEW PORTABLE HISTORY: Atypical CHEST PAIN COMPARISON: None. FINDINGS: Emphysema. Chronic interstitial thickening. Scattered developed opacity seen within the right midlung zone, lung bases, and a new irregular opacity within the left upper lobe. No pneumothorax. No pleural effusions. The heart remains mildly enlarged. IMPRESSION: Chronic changes with new scattered airspace opacities suggestive of a multifocal pneumonia. One to 2 month chest x-ray follow-up is recommended to ensure resolution. Electronically signed by: Aubrey Kaplan M.D. 10/15/2017 4:54 PM Dictated Date/Time: 10/15/2017 4:50 PM Laboratory Results 10/15/17 16:29 Red Blood Count 4.03, Mean Corpuscular Volume 81.1, Mean Corpuscular Hemoglobin 22.6, Mean Corpuscular Hemoglobin Concent 27.8, Mean Platelet Volume 9.6, Neutrophils (%) (Auto) 71.9, Lymphocytes (%) (Auto) 11.2, Monocytes (%) (Auto) 10.9, Eosinophils (%) (Auto) 5.0, Basophils (%) (Auto) 0.3, Neutrophils # (Auto ) 4.41, Lymphocytes # (Auto) 0.69, Monocytes # (Auto) 0.67, Eosinophils # (Auto ) 0.31, Basophils # (Auto) 0.02 10/15/17 16:29 Test 10/15/17 16:29 10/15/17 17:10 10/15/17 18:33 White Blood Count 6.14 K/uL (4.8-10.8) Red Blood Count 4.03 M/uL (4.7-6.1) Hemoglobin 9.1 g/dL (14.0-18.0) Hematocrit 32.7 % (42-52) Mean Corpuscular Volume 81.1 fL (80-100) Mean Corpuscular Hemoglobin 22.6 pg (25-34) Mean Corpuscular Hemoglobin Concent 27.8 g/dl (32-36) Platelet Count 250 K/uL (130-400) Mean Platelet Volume 9.6 fL (7.4-10.4) Neutrophils (%) (Auto) 71.9 % Lymphocytes (%) (Auto) 11.2 % Monocytes (%) (Auto) 10.9 % Eosinophils (%) (Auto) 5.0 % Basophils (%) (Auto) 0.3 % Neutrophils # (Auto) 4.41 K/uL (1.4-6.5) Lymphocytes # (Auto) 0.69 K/uL (1.2-3.4) Monocytes # (Auto) 0.67 K/uL (0.11-0.59) Eosinophils # (Auto) 0.31 K/uL (0-0.5) Basophils # (Auto) 0.02 K/uL (0-0.2) RDW Standard Deviation 60.6 fL (36.4-46.3) RDW Coefficient of Variation 20.5 % (11.5-14.5) Immature Granulocyte % (Auto) 0.7 % Immature Granulocyte # (Auto) 0.04 K/uL (0.00-0.02) Nucleated RBC Absolute Count (auto) 0.07 K/uL (0-0) Nucleated Red Blood Cells % 1.1 % Polychromasia 1+ Anisocytosis PRESENT Ovalocytes 1+ Venous Blood pH 7.41 (7.36-7.41) Venous Blood Partial Pressure CO2 50 mmHg (38.0-50.0) Venous Blood Partial Pressure O2 24 mmHg Venous Blood HCO3 31 mmol/L Venous Blood Oxygen Saturation < 60.0 % Venous Blood Base Excess 5.9 mEq/L Anion Gap 5.0 mmol/L (3-11) Est Creatinine Clear Calc Drug Dose 47.3 ml/min Estimated GFR () 51.5 Estimated GFR (Non- 44.5 BUN/Creatinine Ratio 10.9 (10-20) Calcium Level 8.9 mg/dl (8.5-10.1) Total Bilirubin 0.3 mg/dl (0.2-1) Direct Bilirubin < 0.1 mg/dl (0-0.2) Aspartate Amino Transf (AST/SGOT) 12 U/L (15-37) Alanine Aminotransferase (ALT/SGPT) 18 U/L (12-78) Alkaline Phosphatase 91 U/L (45-117) Pro-B-Type Natriuretic Peptide 2238 pg/ml (0-1800) Total Protein 6.8 gm/dl (6.4-8.2) Albumin 3.0 gm/dl (3.4-5.0) Lipase 51 U/L (73-393) Influenza Type A (RT-PCR) Neg for Influ A (NEG) Influenza Type B (RT-PCR) Neg for Influ B (NEG) Lactic Acid Level 1.3 mmol/L (0.4-2.0) Procalcitonin 0.14 ng/ml (0-0.5) Laboratory results reviewed by me Medications Administered Medications (Trade) Dose Ordered Sig/Cole Route Start Time Stop Time Status Last Admin Dose Admin Methylprednisolone Sodium Succinate (Solu-Medrol IV) 125 mg NOW STAT IV 10/15/17 16:15 10/15/17 16:20 DC 10/15/17 17:01 125 MG Albuterol/ Ipratropium (Duoneb) 12 ml ONE ONCE INH 10/15/17 16:15 10/15/17 16:20 DC 10/15/17 16:54 12 ML Furosemide (Lasix Inj) 40 mg NOW STAT IV 10/15/17 16:15 10/15/17 16:20 DC 10/15/17 17:01 40 MG Fentanyl Citrate (Fentanyl Inj) 50 mcg NOW STAT IV 10/15/17 16:59 10/15/17 17:01 DC 10/15/17 17:07 50 MCG Cefepime HCl 1000 mg/Dextrose 111 ml @ 200 mls/hr NOW STAT IV 10/15/17 17:57 10/15/17 18:30 DC 10/15/17 19:02 200 MLS/HR Vancomycin HCl 1500 mg/Sodium Chloride 530 ml @ 200 mls/hr ONE STAT IV 10/15/17 17:57 10/15/17 20:35 DC 10/15/17 19:03 200 MLS/HR Azithromycin 500 mg/Dextrose 255 ml @ 125 mls/hr ONE STAT IV 10/15/17 17:57 10/15/17 19:59 DC 10/15/17 19:02 125 MLS/HR Aspirin (Aspirin Chew) 324 mg NOW STAT PO 10/15/17 18:15 10/15/17 18:17 DC 10/15/17 19:16 324 MG Acetaminophen (Tylenol Tab) 650 mg Q4H PRN PO 10/15/17 19:00 11/14/17 18:59 10/16/17 01:29 650 MG ECG Per My Interpretation Indication: chest pain Rate (beats per minute): 70 Rhythm: normal sinus Findings: no acute ischemic change, left axis deviation, other (poor baseline) ED Course 1609: The patient was evaluated in room B2. A complete history and physical exam was performed. 1643: I spoke with the patient and his family who report that his POLST form is out of date, meaning he is fine being admitted and treated. He is however still DNR/DNI. 1744: Upon reexamination, the patient was resting comfortably. I discussed the test results and treatment plan with him and his family. The patient will be evaluated for further management. 1753: I discussed the patient with MARCELO Noguera hospitalist - He will evaluate the patient for further treatment. Medical Decision I reviewed the patient's past medical history, medications, and the nursing notes as described above. Etiologies such as pneumonia, COPD, reactive airway disease, CHF, cardiac ischemia, pulmonary embolism, pneumothorax, musculoskeletal, infections, gastrointestinal, as well as others were entertained. 87-year-old gentleman with a past medical history of COPD and CHF on 2 L home O2 , DM, CKD, CAD who presents from [facility] to emergency Department with [facility] in the setting of worsening shortness of breath over the past couple of days per hpi. Of note, the patient reports that he did eat ham for Easter dinner. EKG unremarkable. Chest x-ray with question of evolving multifocal focal pneumonia. BNP 2200 slightly elevated from recent admission at 1700 consistent with the patient's increased weight. Labs otherwise unremarkable and largely unchanged from recent with WBC within normal limits. Patient feeling improved after Solu-Medrol, continuous DuoNeb, IV Lasix. However, still with some increased shortness of breath from his recent baseline. Given the patient's symptoms in the setting of intermittent chest pain with question multifocal pneumonia it is reasonable to admit the patient for further management. Will treat with broad-spectrum antibiotics at this time and pro-calcitonin sent to help further inform future antimicrobial treatment. Case was discussed with TIRSO Davila hospitalist, who will evaluate the patient for admission. Of note I clarified with the patient and his that his POLST form is outdated. They further clarify that he is DNR/DNI but he is agreeable with admission and treatment otherwise. Medication Reconcilliation Current Medication List: was personally reviewed by me Blood Pressure Screening Patient's blood pressure: Elevated blood pressure Referred to hospitalist. Consults Time Called: 1751 Consulting Physician: MARCELO Noguera hospitalist Returned Call: 1753 I discussed the patient with him - He will evaluate the patient for further treatment. Impression Primary Impression: Pneumonia Additional Impressions: CHF (congestive heart failure) COPD exacerbation Substernal precordial chest pain Scribe Attestation The scribe's documentation has been prepared under my direction and personally reviewed by me in its entirety. I confirm that the note above accurately reflects all work, treatment, procedures, and medical decision making performed by me. Departure Information Dispostion Being Evaluated By Hospitalist Referrals [facility] (PCP) Problem Qualifiers
[2017-10-15] MEDS ORDERED: ALUMINUM/MAGNESIUM/SIMETH (MAALOX MAX) 30 ML UDC PO PRN (19:00)
[2017-10-15] MEDS ORDERED: MAGNESIUM HYDROXIDE SUSP 30 ML UDC PO PRN (19:00)
[2017-10-15] MEDS ORDERED: POLYETHYLENE (MIRALAX) 17 GM PACK PO PRN (19:00)
--- NOTE | 2017-10-15 19:46 | History and Physical ---
History & Physical Date & Time of Service: Oct 15, 2017 at 19:19 Chief Complaint: Chest Pain Primary Care Physician: Wilver Franco M.D. History of Present Illness Source: patient, hospital records 87 year old gentleman with a history of chronic kidney disease stage III, combined systolic and diastolic heart failure, COPD, and chronic indwelling catheter. He resides at the [facility]. He notes over the last month he has had more than 20 pound weight gain. He has had swelling of the hands abdomen and extremities. This morning he developed left-sided chest pain which radiated to his left shoulder and he felt as though there was pain in his right hand. He denies any nausea vomiting or diaphoresis. He has had no changes in bowel or bladder function no dark stool. He denies any fever chills or cough. Patient had routine labs. White count was normal at 6.14 blood gas was normal as well. Creatinine was 1.41 which is about his baseline. BNP was up at 2238. His last BMP in August was 746. Patient had chest x-ray which was interpreted as new scattered airspace opacities suggestive of a multifocal pneumonia. Patient was given Lasix 40 mg, Solu-Medrol 125 mg, and 1 g of cefepime. His initial troponin was 0.015 and he was given 325 mill grams of aspirin. At that point hospital medicine was asked to evaluate patient will be placed on the hospitalist service. Past Medical/Surgical History Medical Problems: (1) Acute exacerbation of CHF (congestive heart failure) Past Medical History 1. combined systolic/distolic HF 2. chronic indwelling gomez 3. COPD - oxygen dependent at 2L 4. CKD stage III 5. CAD with stents 6. 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 chronic pain Past surgical history 1. 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 Family History FH: heart disease Hypertension Social History Smoking Status: Former Smoker Smokeless Tobacco Use: Yes Alcohol Use: none Drug Use: none Marital Status: Housing status: [facility] Occupational Status: retired Immunizations History of Influenza Vaccine: Yes Influenza Vaccine Date: Jun 08, 2013 History of Tetanus Vaccine?: Unknown History of Pneumococcal: Yes History of Hepatitis B Vaccine: Unknown Allergies Coded Allergies: No Known Allergies (Unverified , 08/28/17) Home Medications Scheduled Acetaminophen (Tylenol), 1,000 MG PO Q12 Aspirin (Aspirin Chewable), 81 MG PO QAM Atenolol (Tenormin), 12.5 MG PO QAM Bisacodyl (Bisacodyl), 5 MG PO BID Cyanocobalamin (B-12), 1,000 MCG PO QAM Docusate Sodium (Colace), 100 MG PO BID Duloxetine HCl (Cymbalta), 30 MG PO DAILY Dutasteride (Dutasteride), 0.5 MG PO DAILY Famotidine (Famotidine), 20 MG PO HS Fiber Laxative (Fiber Laxative), 1 TAB PO DAILY Fludrocortisone Acetate (Florinef), 0.1 MG PO BID Fluticasone Prop/Salmeterol (Advair Diskus 250/50 60 Dose), 1 PUFF INH BID Fluticasone Propionate (Fluticasone Propionate), 2 SPRAYS HEVER QAM Furosemide (Lasix), 40 MG PO DAILY Gabapentin (Neurontin), 600 MG PO TID Guaifenesin Ext Rel (Mucinex Ext Rel), 1,200 MG PO Q12 Hydrocortisone (Cortef), 20 MG PO BID Insulin Aspart 70/30 (Novolog Mix 70/30), 10 UNITS SQ QPM Insulin Aspart Protamine & Asp (Novolog Mix 70/30), 25 UNITS SQ QAM Insulin Detemir (Levemir), 20 UNITS SQ PM Levalbuterol (Levalbuterol HCl), 1 VIAL NEB BID Lidocaine (Lidocaine), 1 PATCH TOP ONAMOFFPM Magnesium Oxide (Mag-Ox), 400 MG PO BID Methenamine Hippurate (Methenamine Hippurate), 1 GM PO HS Multiple Vitamins W/ Minerals (Therems M), 1 TAB PO QAM Nitroglycerin (Nitrostat), 0.4 MG UT PRN Oxycodone Hcl (Oxycontin), 15 MG PO Q12 Polyethylene Glycol 3350 (Miralax), 17 GM PO BID Polyethylene Glycol-Propylene (Systane Ultra), 1 DROPS OPB BID Potassium Chloride (K-Tab), 40 MEQ PO BID Tamsulosin Hcl (Flomax), 0.4 MG PO HS [Spiriva 18 Mcg], 1 PUFF INH DAILY Scheduled PRN Metolazone (Zaroxolyn), 2.5 MG PO DAILY PRN for WEIGHT GAIN Simethicone (Cvs Gas Relief), 1 TAB PO QID PRN for Indigestion Trolamine Salicylate (Aspercreme), 0 TOP BID PRN for ARTHRITIS [Xopenex Neb], 1 PUFF NEB Q4 PRN for Review of Systems Constitutional: No fever, No chills, No sweats, No weight loss, No weakness, No fatigue, No problem reported Eyes: No worsening of vision, No eye pain, No redness, No discharge, No diplopia, No problem reported ENT: No hearing loss, No unusual epistaxis, No nasal symptoms, No sore throat, No tinnitus, No dental problems, No trouble swallowing, No problem reported Respiratory: + shortness of breath, + dyspnea on exertion Cardiovascular: + chest pain, + edema Abdomen: No pain, No nausea, No vomiting, No diarrhea, No constipation, No GI bleeding, No problem reported Musculoskeletal: + swelling, No joint pain, No muscle pain, No calf pain, No problem reported Genitourinary - Male: + problem reported (chronic gomez) Neurologic: No memory loss, No paralysis, No weakness, No numbness/tingling, No vertigo, No balance problems, No problem reported Psychiatric: No depression symptoms, No anhedonism, No anxiety, No insomnia, No substance abuse, No problem reported Endocrine: No fatigue, No excessive thirst, No excessive urination, No problem reported Hematologic / Lymphatic: No abnormal bleeding/bruising, No clotting problems, No swollen lymph nodes, No night sweats, No problem reported Integumentary: No rash, No itch, No new/changing skin lesions, No color change , No bleeding, No problem reported Physical Exam Vital Signs Date Time Temp Pulse Resp B/P (MAP) Pulse Ox O2 Delivery O2 Flow Rate FiO2 10/15/17 18:00 67 18 138/79 97 Nebulizer 10/15/17 16:55 75 12 98 Nasal Cannula 4.0 10/15/17 16:26 67 10/15/17 16:10 98 Nasal Cannula 4.0 10/15/17 16:10 36.8 68 18 147/82 98 Nasal Cannula 4.0 10/15/17 16:10 98 Nasal Cannula 4.0 General Appearance: WD/WN Head: normocephalic, atraumatic Eyes: normal inspection, sclerae normal ENT: hearing grossly normal, pharynx normal Neck: supple, no JVD Respiratory/Chest: + crackles, + wheezing (few faint) Cardiovascular: regular rate, rhythm, + systolic murmur Abdomen/GI: normal bowel sounds, non tender (obese), soft Genitourinary - Male: normal male genitalia (indwelling gomez) Back: normal inspection, no CVA tenderness Extremities/Musculoskelatal: + pedal edema (plus 2 edema) Neurologic/Psych: alert, oriented x 3 Skin: normal color, warm/dry Diagnostics Laboratory Results Results Past 24 Hours Test 10/15/17 16:29 10/15/17 17:10 10/15/17 18:33 Range/Units White Blood Count 6.14 4.8-10.8 K/uL Red Blood Count 4.03 4.7-6.1 M/uL Hemoglobin 9.1 14.0-18.0 g/dL Hematocrit 32.7 42-52 % Mean Corpuscular Volume 81.1 80-100 fL Mean Corpuscular Hemoglobin 22.6 25-34 pg Mean Corpuscular Hemoglobin Concent 27.8 32-36 g/dl Platelet Count 250 130-400 K/uL Mean Platelet Volume 9.6 7.4-10.4 fL Neutrophils (%) (Auto) 71.9 % Lymphocytes (%) (Auto) 11.2 % Monocytes (%) (Auto) 10.9 % Eosinophils (%) (Auto) 5.0 % Basophils (%) (Auto) 0.3 % Neutrophils # (Auto) 4.41 1.4-6.5 K/uL Lymphocytes # (Auto) 0.69 1.2-3.4 K/uL Monocytes # (Auto) 0.67 0.11-0.59 K/uL Eosinophils # (Auto) 0.31 0-0.5 K/uL Basophils # (Auto) 0.02 0-0.2 K/uL RDW Standard Deviation 60.6 36.4-46.3 fL RDW Coefficient of Variation 20.5 11.5-14.5 % Immature Granulocyte % (Auto) 0.7 % Immature Granulocyte # (Auto) 0.04 0.00-0.02 K/uL Nucleated RBC Absolute Count (auto) 0.07 0-0 K/uL Nucleated Red Blood Cells % 1.1 % Polychromasia 1+ Anisocytosis PRESENT Ovalocytes 1+ Venous Blood pH 7.41 7.36-7.41 Venous Blood Partial Pressure CO2 50 38.0-50.0 mmHg Venous Blood Partial Pressure O2 24 mmHg Venous Blood HCO3 31 mmol/L Venous Blood Oxygen Saturation < 60.0 % Venous Blood Base Excess 5.9 mEq/L Sodium Level 143 136-145 mmol/L Potassium Level 4.6 3.5-5.1 mmol/L Chloride Level 107 98-107 mmol/L Carbon Dioxide Level 31 21-32 mmol/L Anion Gap 5.0 3-11 mmol/L Blood Urea Nitrogen 15 7-18 mg/dl Creatinine 1.41 0.60-1.40 mg/dl Est Creatinine Clear Calc Drug Dose 47.3 ml/min Estimated GFR () 51.5 Estimated GFR (Non- 44.5 BUN/Creatinine Ratio 10.9 10-20 Random Glucose 106 70-99 mg/dl Calcium Level 8.9 8.5-10.1 mg/dl Total Bilirubin 0.3 0.2-1 mg/dl Direct Bilirubin < 0.1 0-0.2 mg/dl Aspartate Amino Transf (AST/SGOT) 12 15-37 U/L Alanine Aminotransferase (ALT/SGPT) 18 12-78 U/L Alkaline Phosphatase 91 45-117 U/L Troponin I < 0.015 0-0.045 ng/ml Pro-B-Type Natriuretic Peptide 2238 0-1800 pg/ml Total Protein 6.8 6.4-8.2 gm/dl Albumin 3.0 3.4-5.0 gm/dl Lipase 51 73-393 U/L Influenza Type A (RT-PCR) Neg for Influ A NEG Influenza Type B (RT-PCR) Neg for Influ B NEG Lactic Acid Level 1.3 0.4-2.0 mmol/L Procalcitonin 0.14 0-0.5 ng/ml Microbiology Results 10/15/17 Blood Culture, Received Pending 10/15/17 Blood Culture, Received Pending Diagnostic Radiology CHEST ONE VIEW PORTABLE HISTORY: Atypical CHEST PAIN COMPARISON: None. FINDINGS: Emphysema. Chronic interstitial thickening. Scattered developed opacity seen within the right midlung zone, lung bases, and a new irregular opacity within the left upper lobe. No pneumothorax. No pleural effusions. The heart remains mildly enlarged. IMPRESSION: Chronic changes with new scattered airspace opacities suggestive of a multifocal pneumonia. One to 2 month chest x-ray follow-up is recommended to ensure resolution. other (no acute ST elevations) Impression Assessment and Plan 1. acute exac of combined systolic/diastolic HF - IV lasix, I/O, DW, he has a chronic gomez. Ask cards to see as they follow him closely in the outpatient setting. Last echo from 08/01 showed EF of 45% with grade 2 diastolic HF. 2. chest pain - rule out ACS - tele - cycle troponins. 3. Mild exac of COPD - duonebs 4. CKD stage 3 - monitor with diuresis - creat 1.41 which is about baseline 5. chest x-ray suggests pneumonia - monitor at this point. No leukocytosis or left shift, no cough, no fever. If develops fever or increased WBC, could obtain CT or start antibiotics 6. Full code 7. DVT prophylaxis with scd, teds and heparin Attending addendum: I have physically seen this patient, have supervised the APC's activities, and agree with the H&P unless as otherwise noted. Assessment and Plan: Acute on chronic combined systolic and diastolic CHF-- The patient will be admitted to telemetry for serial cardiac enzymes, serial EKG's, cardiac rhythm monitoring and a 2-D echocardiogram with Dopplers. IV Lasix as noted. Serial BMP and magnesium levels. Cardiology consult. Multifocal pneumonia/COPD exacerbation-- Was in the hospital in August for respiratory failure secondary to pneumonia, so therefore concern regarding resistant organisms. Place on vancomycin IV, Zosyn IV and Levaquin IV. Duonebs every 4 hours while awake and every 2 hours when necessary. Chronic kidney disease-- Follow serial BMP and magnesium levels while diuresing. Advanced Directives Existing Advance Directive: No Existing Living Will: No Existing Power of Professional Organizer: No Resuscitation Status VTE Prophylaxis Will order VTE Prophylaxis: Yes
[2017-10-15] MEDS ORDERED: PHARMACY GLYCEMIC MGMT CONSULT SCH (20:11)
[2017-10-15] MEDS ORDERED: GLUCOSE 10 TABS/TUBE PO PRN (20:15)
[2017-10-15] MEDS ORDERED: GLUCOSE 40% GEL 15 GM TUBE PO PRN (20:15)
[2017-10-15] MEDS ORDERED: DEXTROSE 50% 50 ML SYR IV PRN (20:15)
[2017-10-15] MEDS ORDERED: GLUCAGON FOR INJ 1 MG VIAL SQ PRN (20:15)
[2017-10-15] MEDS ORDERED: CYM/30 PO (20:22)
[2017-10-15 20:27] VITALS: BP 121/69; PULSE 72; TEMP 36.7; O2SAT 97; BMI 29.9
[2017-10-15] MEDS ORDERED: SPIRIVA 18 MCG INH (20:27)
--- NOTE | 2017-10-15 20:28 | Pharmacy Progress Note ---
Glycemic Control Intl Consult Date of Service Oct 15, 2017. Scope Glycemic Pharmacist consulted by MARCELO Noguera on 10/15/17 for glycemic control and to write orders per [facility] inpatient glycemic control protocol Objective Weight (Kilograms): 106.800 Accuchecks BSG (last 24hrs): Test 10/15/17 16:29 Random Glucose 106 mg/dl (70-99) Laboratory Data (last 24hrs) Test 10/15/17 16:29 Anion Gap 5.0 mmol/L BUN/Creatinine Ratio 10.9 Blood Urea Nitrogen 15 mg/dl Creatinine 1.41 mg/dl Potassium Level 4.6 mmol/L Sodium Level 143 mmol/L White Blood Count 6.14 K/uL Red Blood Count 4.03 M/uL Hemoglobin 9.1 g/dL Hematocrit 32.7 % Mean Corpuscular Volume 81.1 fL Mean Corpuscular Hemoglobin 22.6 pg Mean Corpuscular Hemoglobin Concent 27.8 g/dl Platelet Count 250 K/uL Mean Platelet Volume 9.6 fL Neutrophils (%) (Auto) 71.9 % Lymphocytes (%) (Auto) 11.2 % Monocytes (%) (Auto) 10.9 % Eosinophils (%) (Auto) 5.0 % Basophils (%) (Auto) 0.3 % Neutrophils # (Auto) 4.41 K/uL Lymphocytes # (Auto) 0.69 K/uL Monocytes # (Auto) 0.67 K/uL Eosinophils # (Auto) 0.31 K/uL Basophils # (Auto) 0.02 K/uL Recent Pertinent Medications Outpatient Anti-diabetic Regimen: * Novolog 70/30 - 25 units SQ QAM; 10 units SQ QPM * A1c = 7 % 08/18/17 Risk Factors for Insulin Resistance: * Steroids: Solu-medrol 125mg IV x 1 in ED * Infection: Pneumonia - Vancomycin, Azithromycin and Cefepime received in ED * Diet: Low Na+ Assessment & Plan ASSESSMENT: * 87 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 * Pt received 1 dose of IV Solu-medrol in ED - will check BSG overnight * Outpatient regimen includes premixed basal/prandial insulin of Novolog 70/30 mix insulin. * Pre-mixed insulin is difficult to titrate since it is already in a fixed distribution of basal:prandial insulin. Continuing pre-mixed insulin for admission typically lead to hypoglycemia d/t changing PO status but rapid acting insulin is unable to be held. * Will utilize recommended regimen of SQ basal bolus insulin regimen with Levemir + NovoLog (CF+CR) * ADA & AACE recommend a goal blood sugar range 140-180 mg/dl for the majority of critically ill & non-critically ill patients. However, more stringent targets may be selected in individual cases. Will utilize more stringent goal of 110-140mg/dl based on patient age & comorbidities. PLAN FOR INPATIENT GLYCEMIC CONTROL: * Basal insulin with LEVEMIR SQ HS * BSG < 80mg/dl - 0 units * BSG 80-180mg/dl - 20 units * BSG > 180mg/dl - 30 units * Correctional Insulin with NOVOLOG per scale ACHS or Q6hrs while NPO and overnight tonight at 0000 and 0400 * Goal Range: Low 110 mg/dL - High 140 mg/dL * Correction Factor: 10 mg/dL/unit * Nutritional / Prandial insulin per carb ratio of 1 unit per 4 grams CHO consumed * New A1c with AM Labs * Please note that the plan above was derived based on current level of insulin resistance and hospital stress. These recommendations are appropriate for inpatient admission only. Plan of care upon discharge will need to be reassessed to avoid potential outpatient hypo/hyperglycemia. Thank you.
[2017-10-15] MEDS ORDERED: MULTTAB63 PO (20:29)
[2017-10-15] MEDS ORDERED: GABA600T PO (20:50)
[2017-10-15] MEDS ORDERED: INSULIN DETEMIR FLEXPEN/FLEX TOUCH 100 UNITS/ML 3ML SQ SCH (21:00)
[2017-10-15] MEDS ORDERED: POLY335019 PO (21:16)
[2017-10-15] MEDS ORDERED: FRS/40 PO (21:31)
[2017-10-15] MEDS ORDERED: HYDR20TA PO (21:31)
[2017-10-15] MEDS: BISACODYL 5 MG TABEC PO SCH (21:50)
[2017-10-15] MEDS: DOCUSATE SODIUM 100 MG CAP PO SCH (21:50)
[2017-10-15] MEDS: POLYETHYLENE (MIRALAX) 17 GM PACK PO SCH (21:51)
[2017-10-15] MEDS: HYDROCORTISONE 10 MG TAB PO SCH (21:51)
[2017-10-15] MEDS: TAMSULOSIN HCL 0.4 MG CAP PO SCH (21:51)
[2017-10-15] MEDS: ARTIFICIAL TEARS OP SOLN OPB SCH (21:51)
[2017-10-15] MEDS: POTASSIUM CHLORIDE 20 MEQ TABCR PO SCH (21:52)
[2017-10-15] MEDS: GUAIFENESIN 600 MG TABCR PO SCH (21:52)
[2017-10-15] MEDS: FLUDROCORTISONE ACETATE 0.1 MG TAB PO SCH (21:52)
[2017-10-15] MEDS: GABAPENTIN 600 MG TAB PO SCH (21:53)
[2017-10-15] MEDS: OXYCODONE HCL 15 MG TABCR (OXYCONTIN) PO SCH (21:54)
[2017-10-15] MEDS: FAMOTIDINE 20 MG TAB PO SCH (21:54)
[2017-10-15] MEDS: FLUTICASONE/SALMETEROL 250/50 (ADVAIR) 14 PUFF/1 INHALER INH SCH (21:54)
[2017-10-15] MEDS ORDERED: FIBER PO (22:02)
[2017-10-15] MEDS ORDERED: FAMO1TAB47 PO (22:02)
[2017-10-15] MEDS ORDERED: DUTA1CAP3 PO (22:02)
[2017-10-15] MEDS ORDERED: NVLGI7030 SQ (22:02)
[2017-10-15] MEDS ORDERED: TAMS0.4C38 PO (22:02)
[2017-10-15] MEDS: INSULIN ASPART 100 UNITS/ML 3 ML PEN SC SCH (22:04)
[2017-10-15] MEDS ORDERED: METH-1305 PO (22:04)
[2017-10-15 22:36] VITALS: PULSE 78; O2SAT 99
[2017-10-15] MEDS: ALBUT/IPRATROP 3MG/0.5MG NEB 3 ML VIAL INH SCH (22:36)
[2017-10-15] MEDS ORDERED: ASPCH81X PO (23:21)
[2017-10-16] VITALS (12 sets, daily range): BP systolic 114–132; BP diastolic 62–77; PULSE 66–80; TEMP 36.4–36.9; O2SAT 92–99; Ht 185.4 cm; Wt 100.3 kg
[2017-10-16] MEDS: INSULIN ASPART 100 UNITS/ML 3 ML PEN SC SCH ×6 (00:14→21:29)
[2017-10-16] MEDS ORDERED: PIPERACILL/TAZOBAC CONSULT ACTIVE PRN (00:30)
[2017-10-16] MEDS ORDERED: VANCOMYCIN CONSULT ACTIVE PRN (00:30)
[2017-10-16] MEDS ORDERED: LEVOFLOXACIN / D5W 500 MG in PREMIXED IN D5W 100 ML IV SCH (00:30)
[2017-10-16] MEDS ORDERED: PIPERACILL/TAZOBAC IV 3.375 GM in DEXTROSE 5% 100ML IV ONE (00:45)
[2017-10-16] MEDS: ACETAMINOPHEN 325 MG TAB PO PRN ×2 (01:29→06:25)
[2017-10-16] MEDS ORDERED: LEVOFLOXACIN CONSULT ACTIVE PRN (01:30)
[2017-10-16] MEDS ORDERED: PIPERACILL/TAZOBAC IV 3.375 GM in DEXTROSE 5% 100ML 100 ML IV SCH (06:00)
[2017-10-16] MEDS: ALBUT/IPRATROP 3MG/0.5MG NEB 3 ML VIAL INH SCH ×4 (06:54→19:18)
[2017-10-16] MEDS: BUDESONIDE 0.5 MG/2 ML VIAL (PULMICORT) INH SCH ×2 (06:55→19:19)
[2017-10-16] MEDS: ONDANSETRON INJ 2 MG/ML 2 ML VIAL IV PRN (07:36)
[2017-10-16] MEDS: AVODART~ORDER AWAITING ACTION SCH ×3 (07:45→16:47)
[2017-10-16] MEDS: POLYETHYLENE (MIRALAX) 17 GM PACK PO SCH ×2 (08:47→21:10)
[2017-10-16] MEDS: FLUTICASONE/SALMETEROL 250/50 (ADVAIR) 14 PUFF/1 INHALER INH SCH ×2 (08:47→21:09)
[2017-10-16] MEDS: FUROSEMIDE INJ 40 MG in SYRINGE 0 ML IV SCH ×2 (08:48→17:30)
[2017-10-16] MEDS: FLUTICASONE PROPIONATE NA SPR 16 GM BTL NAE SCH (08:48)
[2017-10-16] MEDS: ARTIFICIAL TEARS OP SOLN OPB SCH ×2 (08:48→21:14)
[2017-10-16] MEDS: HYDROCORTISONE 10 MG TAB PO SCH ×2 (08:49→21:11)
[2017-10-16] MEDS: BISACODYL 5 MG TABEC PO SCH ×2 (08:49→21:50)
[2017-10-16] MEDS: POTASSIUM CHLORIDE 20 MEQ TABCR PO SCH ×2 (08:49→21:11)
[2017-10-16] MEDS: GABAPENTIN 600 MG TAB PO SCH ×3 (08:49→21:13)
[2017-10-16] MEDS: DOCUSATE SODIUM 100 MG CAP PO SCH ×2 (08:49→21:13)
[2017-10-16] MEDS: DULOXETINE (CYMBALTA) 30 MG CAP PO SCH (08:49)
[2017-10-16] MEDS: GUAIFENESIN 600 MG TABCR PO SCH ×2 (08:49→21:13)
[2017-10-16] MEDS: FLUDROCORTISONE ACETATE 0.1 MG TAB PO SCH ×2 (08:50→21:10)
[2017-10-16] MEDS: ASPIRIN 81 MG ECTAB PO SCH (08:50)
[2017-10-16] MEDS: OXYCODONE HCL 15 MG TABCR (OXYCONTIN) PO SCH ×2 (08:54→21:11)
[2017-10-16] MEDS ORDERED: VANCOMYCIN IV 1,000 MG in SODIUM CHLORIDE 0.9% 250ML 250 ML IV SCH (09:00)
[2017-10-16] MEDS ORDERED: FUROSEMIDE 40 MG TAB PO SCH (09:00)
[2017-10-16 09:01] LABS: HEMATOCRIT 29.3 % (42-52); HEMOGLOBIN 8.3 g/dL (14.0-18.0); MEAN CELL VOLUME 80.3 fL (80-100); MEAN CORPUSCULAR HEMOGLOBIN 22.7 pg (25-34); MEAN CORPUSCULAR HGB CONC 28.3 g/dl (32-36); MEAN PLATELET VOLUME 9.6 fL (7.4-10.4); NUCLEATED RED BLOOD CELL ABS 0.05 K/uL (0-0); PLATELET COUNT 242 K/uL (130-400); RED CELL DISTRIBUTION WIDTH CV 20.3 % (11.5-14.5); WHITE BLOOD COUNT 6.09 K/uL (4.8-10.8)
[2017-10-16 09:08] LABS: BLOOD UREA NITROGEN 19 mg/dl (7-18); CALCIUM 8.6 mg/dl (8.5-10.1); CARBON DIOXIDE 30 mmol/L (21-32); CREATININE 1.58 mg/dl (0.60-1.40); GLUCOSE 105 mg/dl (70-99); POTASSIUM 4.2 mmol/L (3.5-5.1); SODIUM 142 mmol/L (136-145)
--- NOTE | 2017-10-16 09:48 | Clinical Documentation Query ---
CLINICAL DOCUMENTATION QUERY Dr. HENRY, In your clinical opinion is this patient being managed for: ( x ) Chronic hypoxic respiratory failure ( ) Not Agree ( ) Other explanation of clinical findings (Please Explain) ( ) Unable to determine (Please Define) ( ) Need to Discuss The medical record reflects the following clinical findings, treatment, and risk factors. Clinical Indicators: 87 yo male presenting with acute combined CHF. ER note indicates wears chronic home O2 support. Treatment: chronic treatment inculdes: O2 support, advair diskus, albuterol nebs, spiriva, xopenex Risk Factors: COPD, chronic combined CHF Please clarify and document your clinical opinion in the progress notes and discharge summary. Terms such as "probable", "suspected", "likely", "questionable", "possible", or "still to be ruled out" are acceptable. IF IN AGREEMENT, YOU MUST DOCUMENT ABOVE DIAGNOSTIC STATEMENT IN DAILY PROGRESS NOTES AND DISCHARGE SUMMARY. This document is not part of the patient's record. Thank You, Carolin Stoll, GUERDA [phone]
[2017-10-16 09:49] LABS: HEMOGLOBIN A1C 6.6 % (4.5-5.6)
[2017-10-16] MEDS ORDERED: LIDODERM (LIDOCAINE) PATCH 5% TD ONE (10:30)
--- NOTE | 2017-10-16 10:48 | Hospitalist Progress Note ---
Hospitalist Progress Note Date of Service Oct 16, 2017. Subjective Pt evaluation today including: conversation w/ patient, physical exam, chart review, lab review, review of studies, review of inpatient medication list Pain: 6/10 abdominal pain PO Intake: Poor intake Voiding: gomez catheter in place (chronic) The patient reports not feeling well. He complains of shortness of breath, productive cough with clear sputum and intermittent wheezing. He reports chills but no fevers or sweats. He does complain of a 5/10 left chest pain that is worse with coughing. He states that this feels like a "muscle ache" and not "heart pain." He complains of nausea and states he cannot keep anything , not even water, down. He does not have much appetite and has not been eating well. Per nursing he ate a little breakfast and then had some undigested emesis. He reports a 6/10 lower abdominal aching pain that is worse after eating. He also complains of weakness and fatigue. The patient denies fevers, sweats, palpitations, claudication, dysuria, hematuria, urinary retention, paralysis, focal motor weakness, numbness and tingling. Additional Comments: See HPI for pertinent positives and negatives. All other systems reviewed and negative. Objective Vital Signs Date Time Temp Pulse Resp B/P (MAP) Pulse Ox O2 Delivery O2 Flow Rate FiO2 10/16/17 08:09 36.9 73 20 129/69 (89) 93 10/16/17 06:55 78 16 99 Nasal Cannula 4.0 10/16/17 04:00 92 Nasal Cannula 2.0 10/16/17 03:24 36.6 79 19 114/62 (79) 92 Nasal Cannula 2.0 10/16/17 00:00 94 Nasal Cannula 2.0 10/16/17 00:00 36.7 76 24 129/73 (91) 94 Nasal Cannula 2.0 94 10/15/17 22:36 78 16 99 Nasal Cannula 4.0 10/15/17 20:27 36.7 72 16 121/69 97 Nasal Cannula 3.0 10/15/17 19:51 75 18 130/74 95 Nebulizer 4.0 10/15/17 18:00 67 18 138/79 97 Nebulizer 10/15/17 16:55 75 12 98 Nasal Cannula 4.0 4/3/18 16:26 67 10/15/17 16:10 98 Nasal Cannula 4.0 10/15/17 16:10 36.8 68 18 147/82 98 Nasal Cannula 4.0 10/15/17 16:10 98 Nasal Cannula 4.0 Physical Exam Notes: General appearance: +Obese. Mild distress. Well-developed, well-nourished Head: Normocephalic, atraumatic Eyes: Normal inspection, PERRL, EOMI ENT: Normal ENT inspection, hearing grossly normal, pharynx normal Neck: Supple, no JVD, trachea midline Respiratory/Chest: +Decreased breath sounds throughout. Scattered wheezing. Currently on 2L NC. No respiratory distress Cardiovascular: Regular rate & rhythm, no gallop, no murmur Abdomen/GI: +Diffusely TTP. Normal bowel sounds, soft Extremities/Musculoskeletal: Normal inspection, no calf tenderness, no pedal edema Neurological/Psych: Alert, normal mood/affect, oriented x 3 (disoriented to year, but stated correct month and day) Skin: Normal color, warm/dry, no rash Laboratory Results Last 24 Hours Test 10/15/17 16:29 10/15/17 17:10 10/15/17 18:33 10/15/17 20:48 White Blood Count 6.14 K/uL Red Blood Count 4.03 M/uL Hemoglobin 9.1 g/dL Hematocrit 32.7 % Mean Corpuscular Volume 81.1 fL Mean Corpuscular Hemoglobin 22.6 pg Mean Corpuscular Hemoglobin Concent 27.8 g/dl Platelet Count 250 K/uL Mean Platelet Volume 9.6 fL Neutrophils (%) (Auto) 71.9 % Lymphocytes (%) (Auto) 11.2 % Monocytes (%) (Auto) 10.9 % Eosinophils (%) (Auto) 5.0 % Basophils (%) (Auto) 0.3 % Neutrophils # (Auto) 4.41 K/uL Lymphocytes # (Auto) 0.69 K/uL Monocytes # (Auto) 0.67 K/uL Eosinophils # (Auto) 0.31 K/uL Basophils # (Auto) 0.02 K/uL RDW Standard Deviation 60.6 fL RDW Coefficient of Variation 20.5 % Immature Granulocyte % (Auto) 0.7 % Immature Granulocyte # (Auto) 0.04 K/uL Nucleated RBC Absolute Count (auto) 0.07 K/uL Nucleated Red Blood Cells % 1.1 % Polychromasia 1+ Anisocytosis PRESENT Ovalocytes 1+ Venous Blood pH 7.41 Venous Blood Partial Pressure CO2 50 mmHg Venous Blood Partial Pressure O2 24 mmHg Venous Blood HCO3 31 mmol/L Venous Blood Oxygen Saturation < 60.0 % Venous Blood Base Excess 5.9 mEq/L Sodium Level 143 mmol/L Potassium Level 4.6 mmol/L Chloride Level 107 mmol/L Carbon Dioxide Level 31 mmol/L Anion Gap 5.0 mmol/L Blood Urea Nitrogen 15 mg/dl Creatinine 1.41 mg/dl Est Creatinine Clear Calc Drug Dose 47.3 ml/min Estimated GFR () 51.5 Estimated GFR (Non- 44.5 BUN/Creatinine Ratio 10.9 Random Glucose 106 mg/dl Calcium Level 8.9 mg/dl Total Bilirubin 0.3 mg/dl Direct Bilirubin < 0.1 mg/dl Aspartate Amino Transf (AST/SGOT) 12 U/L Alanine Aminotransferase (ALT/SGPT) 18 U/L Alkaline Phosphatase 91 U/L Troponin I < 0.015 ng/ml < 0.015 ng/ml Pro-B-Type Natriuretic Peptide 2238 pg/ml Total Protein 6.8 gm/dl Albumin 3.0 gm/dl Lipase 51 U/L Influenza Type A (RT-PCR) Neg for Influ A Influenza Type B (RT-PCR) Neg for Influ B Lactic Acid Level 1.3 mmol/L Procalcitonin 0.14 ng/ml Test 10/15/17 21:36 10/15/17 23:39 10/16/17 02:26 10/16/17 03:30 Bedside Glucose 322 mg/dl 298 mg/dl Troponin I < 0.015 ng/ml Urine Color YELLOW Urine Appearance CLEAR Urine pH 8.0 Urine Specific [place] 1.026 Urine Protein NEG Urine Glucose (UA) 2+ Urine Ketones NEG Urine Occult Blood NEG Urine Nitrite NEG Urine Bilirubin NEG Urine Urobilinogen NEG Urine Leukocyte Esterase TRACE Urine WBC (Auto) 5-10 /hpf Urine RBC (Auto) 5-10 /hpf Urine Hyaline Casts (Auto) 1-5 /lpf Urine Epithelial Cells (Auto) 10-20 /lpf Urine Bacteria (Auto) NEG Urine Yeast (Auto) BUDDING Test 10/16/17 04:48 10/16/17 07:03 10/16/17 08:28 Bedside Glucose 210 mg/dl 120 mg/dl White Blood Count 6.09 K/uL Red Blood Count 3.65 M/uL Hemoglobin 8.3 g/dL Hematocrit 29.3 % Mean Corpuscular Volume 80.3 fL Mean Corpuscular Hemoglobin 22.7 pg Mean Corpuscular Hemoglobin Concent 28.3 g/dl RDW Standard Deviation 60.0 fL RDW Coefficient of Variation 20.3 % Platelet Count 242 K/uL Mean Platelet Volume 9.6 fL Nucleated RBC Absolute Count (auto) 0.05 K/uL Nucleated Red Blood Cells % 0.9 % Sodium Level 142 mmol/L Potassium Level 4.2 mmol/L Chloride Level 106 mmol/L Carbon Dioxide Level 30 mmol/L Anion Gap 6.0 mmol/L Blood Urea Nitrogen 19 mg/dl Creatinine 1.58 mg/dl Est Creatinine Clear Calc Drug Dose 41.5 ml/min Estimated GFR () 44.9 Estimated GFR (Non- 38.8 BUN/Creatinine Ratio 12.1 Random Glucose 105 mg/dl Estimated Average Glucose 143 mg/dl Hemoglobin A1c 6.6 % Calcium Level 8.6 mg/dl Troponin I < 0.015 ng/ml Assessment and Plan 87 y/o male with a history of CAD, HTN, chronic systolic/diastolic CHF, COPD, DM II, CKD stage III, orthostasis, neuropathy, BPH, recurrent UTI, chronic Gomez , depression and GERD who presents with weight gain, swelling, chest pain, and shortness of breath Acute on chronic combined systolic/diastolic heart failure, chronic hypoxic respiratory failure--stable -Admit to telemetry. No acute events overnight. Pt in SR with HR 70s -O2 by protocol. Pt wears 2L NC chronically -Daily weights, strict I's & O's. Pt has not had much significant diuresis yet , continue to monitor -Lasix 40 mg IV BID17 -Low sodium diet -Echo Jul 2017 w/EF of 45%, grade 2 diastolic dysfunction, no WMA -Cardiology consulted, appreciate recs Chest pain, ACS r/o--stable, no ACS -Troponin negative x 3 -No acute ischemic changes on EKG COPD exacerbation/possible multifocal PNA--ongoing -CXR with suggested multifocal PNA, however afebrile and no leukocytosis -Solu-Medrol 60 mg IV q8h -DuoNebs QIDR -Continue home Mucinex and Advair -Continue Pulmicort -Will de-escalate abx to Levaquin 750 mg IV q48h (renal dosing) CAD, HTN--stable -Continue ASA, atenolol 12.5 mg PO qd DM II -Levemir SC per protocol, pharmacy managing -Insulin sliding scale -Check BSGs q ac and qhs -HgbA1c 6.6 on 10/16 CKD stage III--stable -Baseline creatinine 1.5-1.8 -Creatinine 1.58 on 10/16, up from 1.41 Neuropathy, depression -Continue gabapentin 600 mg PO TID, Cymbalta 30 mg PO qd BPH, recurrent UTI, chronic Gomez -UA positive for yeast, otherwise largely unremarkable. Urine culture pending -Continue dutasteride 0.5 mg PO qd and Flomax 0.4 mg PO hs DVT prophylaxis -Heparin 5000 units SC q12h -SCOTT Sandoval Code Status -Level I, FULL RESUSCITATION STATUS
[2017-10-16] MEDS ORDERED: LEVOFLOXACIN / D5W 750 MG in PREMIXED IN D5W 150 ML IV SCH (11:00)
--- NOTE | 2017-10-16 11:49 | Pharmacy Progress Note ---
Glycemic Control Progress Note Date of Service Oct 16, 2017. Scope Glycemic Pharmacist consulted for glycemic control to write orders per [facility] inpatient glycemic control protocol. Objective Accuchecks BSG (last 24hrs): Test 10/15/17 16:29 10/15/17 21:36 10/15/17 23:39 10/16/17 04:48 Random Glucose 106 mg/dl (70-99) Bedside Glucose 322 mg/dl (70-99) 298 mg/dl (70-99) 210 mg/dl (70-99) Test 10/16/17 07:03 10/16/17 08:28 10/16/17 11:11 Bedside Glucose 120 mg/dl (70-99) 122 mg/dl (70-99) Random Glucose 105 mg/dl (70-99) HbA1c: Test 10/16/17 08:28 Hemoglobin A1c 6.6 % (4.5-5.6) H Recent Pertinent Medications The patient is currently receiving: * Basal insulin: Levemir SQ Q HS per the following scale: 0 units if less than 80; 20 units if 80-180; 30 units if above 180 * Correctional Insulin: Novolog Correction per scale ACHS Goal Range: Low 110 mg/dL - High 140 mg/dL Correction Factor: 10 mg/dL/unit * Prandial insulin: Per carb ratio of 1 unit per 4 grams CHO consumed Outpatient Anti-Diabetic Meds Novolog 70/30 25 units w/ breakfast + 10 units w/ dinner Levemir 20 units Q HS Assessment & Plan ASSESSMENT: 10/15/17 * 87 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 * Pt received 1 dose of IV Solu-medrol in ED - will check BSG overnight * Outpatient regimen includes premixed basal/prandial insulin of Novolog 70/30 mix insulin. * Pre-mixed insulin is difficult to titrate since it is already in a fixed distribution of basal:prandial insulin. Continuing pre-mixed insulin for admission typically lead to hypoglycemia d/t changing PO status but rapid acting insulin is unable to be held. * Will utilize recommended regimen of SQ basal bolus insulin regimen with Levemir + NovoLog (CF+CR) * ADA & AACE recommend a goal blood sugar range 140-180 mg/dl for the majority of critically ill & non-critically ill patients. However, more stringent targets may be selected in individual cases. Will utilize more stringent goal of 110-140mg/dl based on patient age & comorbidities. 10/16/17 * BSGs did climb following the administration of Solu-medrol 125mg IV x 1 in the ER last evening * However BSGs did fall overnight to desirable range following aggressive correction w/ Novolog along w/ stressed dose of Levemir * This AM Solu-Medrol is going to be restarted to high dose (60mg IV Q 8 hours) . In the past this has greatly increased his insulin requirements. Leading to 2-3 fold increases in daily insulin requirement. * Will base new insulin doses upon severe stress and home insulin requirement ( home regimen provided ~55 units/day), these estimates are in line with what he has required in the past while on IV steroids. PLAN FOR INPATIENT GLYCEMIC CONTROL: * Give Levemir 20 units SQ x 1 now since we did not give any this AM as steroids had not yet been reordered * Continue Levemir but change dose to BID per the following scale: * 0 units if less than 80 * 10 units if 80-100 * 20 units if 100-160 * 30 units if above 160 * Continuing correction factor of 10 mg/dl/unit * Continuing carb ratio of 1 unit per 4 grams CHO consumed * Continuing goal range of Low 110 mg/dL - High 140 mg/dL * Continue BSGs at 0000 + 0400 tonight due to newly the addition of steroids today and uncertain insulin needs * Please note that the plan above was derived based on current level of insulin resistance and hospital stress. These recommendations are appropriate for inpatient admission only. Plan of care upon discharge will need to be reassessed to avoid potential outpatient hypo/hyperglycemia. Thank you.
[2017-10-16] MEDS ORDERED: LEVOFLOXACIN 250MG / D5W IV ONE (12:00)
[2017-10-16] MEDS ORDERED: INSULIN DETEMIR FLEXPEN/FLEX TOUCH 100 UNITS/ML 3ML SQ ONE (12:00)
[2017-10-16] MEDS ORDERED: VANCOMYCIN IV 1,500 MG in SODIUM CHLORIDE 0.9% 500ML 500 ML IV SCH (12:00)
[2017-10-16 12:24] LABS: PTT PATIENT 24.5 SECONDS (21.0-31.0)
[2017-10-16] MEDS: METHYLPREDNISOLONE IV 60 MG in SYRINGE 0 ML IV SCH ×2 (12:30→18:28)
--- NOTE | 2017-10-16 13:58 | Cardiology Consultation ---
Cardiology Consultation Date of Consultation: Oct 16, 2017. Requesting Physician: Deacon ROBERTSON Attending Physician: Dr. Hernandez Reason for Consultation: Shortness of breath Pt evaluation today including: conversation w/ patient, physical exam, chart review, lab review, review of studies, review of inpatient medication list, conversation w/ attending History of Present Illness Mr. Enciso is a pleasant 87-year-old gentleman with a history significant for multi-vessel CAD status post LAD stents, diastolic CHF, paroxysmal atrial flutter, dyslipidemia, COPD, CKD, type 2 diabetes mellitus, lower extremity DVT , GI bleed requiring blood transfusion, adrenal insufficiency, chronic gomez with recurrent UTIs. He has had the following studies/procedures: 1. Prox LAD PCI 04/2004: 2.5 x 16mm Taxus VOLODYMYR. 2. Cardiac catheterization 07/24/2008: Proximal LAD hazy 95% stenosis with JESSICA 2 flow, just proximal to prior patent stent; mid LAD 50%; diagonal #2 100% stenosis; distal LAD 60%. 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 Proximal circumflex 40%; distal circumflex 20%; OM1 70% proximally; left to left collaterals to LAD. Mid RCA 60%; PDA serial 60% stenoses; right to left collaterals. 3. PCI of LAD 07/2008: 2.5 x 12 mm XIENCE VOLODYMYR. Due to perforation a second stent was deployed, 2.5 mm x 8 mm XIENCE VOLODYMYR. 4. Echo 04/10/12: Normal LV size, systolic function, wall motion. EF 60%. Type I diastolic dysfunction. No significant valvular abnormalities. 5. Echo 10/07/12: Normal biventricular systolic function. Mild LVH. No significant valvular abnormalities. 6. Echo 07/16/14: Normal LV size, wall motion, systolic function. EF 60-65%. No significant valvular abnormalities. 7. Echo 03/16/2015: Normal LV systolic function and wall motion. EF 55-60%. Type 1 diastolic dysfunction. No significant valvular abnormalities. 8. Echo 09/15/15: Normal LV size and systolic function. EF 60%. No definite wall motion abnormalities. Type I diastolic dysfunction. No significant valvular abnormalities. 9. Lower extremity Doppler 03/02/2017: Right popliteal vein DVT, likely acute. Suspected minimal thrombus right posterior tibial vein. No left DVT. 10. Echo 07/16/2017: Mildly reduced LV systolic function. EF 45-50%. Grade II diastolic dysfunction. Borderline aortic root dilatation. Dilated inferior vena cava with reduced collapsibility with sniff indicates an elevated right atrial pressure of 15 mmHg. The patient has been hospitalized 12 times since August of 2016. Many of these hospitalizations have been for recurrent respiratory failure and pneumonia. He also was hospitalized with DVT and then while on aspirin, Plavix , and Coumadin (initiated for DVT), he was hospitalized with GI bleeding requiring blood transfusion. He had an EGD and colonoscopy without identifiable active bleeding. He was admitted in July 2017 with bacteremia secondary to UTI. His Torsemide 20 mg BID was switched to Lasix 40 mg daily at that time. His most recent hospitalization in August was due to acute hypoxic respiratory failure felt to be secondary to CHF, pneumonia, and COPD. He presented to the ED last evening with multiple complaints. He reports that over the last week and a half, he has gained about 10 lbs. A couple of days ago , he became more short of breath, which was present even while at rest. He also noted a cough with white sputum production. He denies orthopnea, but he did experience an episode of paroxysmal nocturnal dyspnea 2 days ago. He denies any significant lower extremity edema, but notes that his legs are "difficult to move." He denies any fevers or chills. The patient has also also experienced left sided chest discomfort radiating down his left arm intermittently over the previous 5-7 days. He reports that the pain occurs at rest, and he denies any associated symptoms with the chest discomfort. The pain typically lasts 5-10 minutes before self-resolving. He reports that he has had this discomfort in the past and was told that it was musculoskeletal in nature. He denies palpitations, lightheadedness, syncope, presyncope, abnormal bleeding , or cerebrovascular symptoms. He reports that he felt nauseous this morning and vomited his breakfast. He denies any other GI complaints. Review of Systems: As noted in HPI. All other 10 point ROS are reviewed and otherwise negative. Family History FH: heart disease Hypertension No known premature CAD. His father had possible CAD in his 60s. Social History Smoking Status: Former Smoker History of Alcohol Use: Yes (2 drinks/week) Denies smoking, alcohol, drugs. He is and has 3 children. [facility] at [facility]. 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 Review of Systems Respiratory: + dyspnea on exertion Allergies Coded Allergies: No Known Allergies (Unverified , 08/28/17) Medications Current Inpatient Medications Medications (Trade) Dose Ordered Sig/Cole Route Start Time Stop Time Status Last Admin Dose Admin Acetaminophen (Tylenol Tab) 650 mg Q4H PRN PO 10/15/17 19:00 11/14/17 18:59 10/16/17 06:25 650 MG Al Hydrox/Mg Hydrox/Simethicone (Maalox Max Susp) 15 ml Q4H PRN PO 10/15/17 19:00 11/14/17 18:59 10/16/17 07:36 15 ML Magnesium Hydroxide (Milk Of Magnesia Susp) 30 ml Q12H PRN PO 10/15/17 19:00 11/14/17 18:59 Ondansetron HCl (Zofran Inj) 4 mg Q6H PRN IV 10/15/17 19:00 11/14/17 18:59 10/16/17 07:36 4 MG Polyethylene (Miralax Powder Packet) 17 gm DAILY PRN PO 10/15/17 19:00 11/14/17 18:59 Furosemide 40 mg/ Syringe 4 ml @ 4 mls/min BID17 IV 10/16/17 09:00 11/15/17 08:59 10/16/17 08:48 4 MLS/MIN Potassium Chloride (Klor-Con Tab) 20 meq BID PO 10/15/17 21:00 11/14/17 20:59 10/16/17 08:49 20 MEQ Aspirin (Ecotrin Tab) 81 mg QAM PO 10/16/17 09:00 11/15/17 08:59 10/16/17 08:50 81 MG Atenolol (Tenormin Tab) 12.5 mg QAM PO 10/16/17 09:00 11/15/17 08:59 10/16/17 08:50 12.5 MG Bisacodyl (Dulcolax Tab) 5 mg BID PO 10/15/17 21:00 11/14/17 20:59 10/16/17 08:49 5 MG Docusate Sodium (coLACE CAP) 100 mg BID PO 10/15/17 21:00 11/14/17 20:59 10/16/17 08:49 100 MG Duloxetine HCl (Cymbalta Cap) 30 mg DAILY PO 10/16/17 09:00 11/15/17 08:59 10/16/17 08:49 30 MG Famotidine (Pepcid Tab) 20 mg HS PO 10/15/17 21:00 11/14/17 20:59 10/15/17 21:54 20 MG Fludrocortisone Acetate (Florinef Tab) 0.1 mg BID PO 10/15/17 21:00 11/14/17 20:59 10/16/17 08:50 0.1 MG Salmeterol Xinafoate/ Fluticasone (Advair Diskus 250/50 Inh) 1 puff BID INH 10/15/17 21:00 11/14/17 20:59 10/16/17 08:47 1 PUFF Fluticasone Propionate (Flonase Nasal [place]) 2 sprays QAM HEVER 10/16/17 09:00 11/15/17 08:59 10/16/17 08:48 2 SPRAYS Gabapentin (Neurontin Tab) 600 mg TID PO 10/15/17 21:00 11/14/17 20:59 10/16/17 08:49 600 MG Guaifenesin (Mucinex Contr Rel Tab) 1,200 mg Q12 PO 10/15/17 21:00 11/14/17 20:59 10/16/17 08:49 1,200 MG Hydrocortisone (Cortef Tab) 20 mg BID PO 10/15/17 21:00 11/14/17 20:59 10/16/17 08:49 20 MG Oxycodone HCl (Oxycontin Tab) 15 mg Q12 PO 10/15/17 21:00 10/29/17 20:59 10/16/17 08:54 15 MG Tamsulosin HCl (Flomax Cap) 0.4 mg HS PO 10/15/17 21:00 11/14/17 20:59 10/15/17 21:51 0.4 MG Miscellaneous Information (Order Awaiting Action) 1 ea QS N/A 10/16/17 00:00 11/15/17 00:00 Insulin Detemir (Levemir Flexpen/ FlexTouch) SEE PROTOCOL PM SQ 10/15/17 21:00 11/14/17 20:59 10/15/17 23:21 30 UNITS Polyethylene (Miralax Powder Packet) 17 gm BID PO 10/15/17 21:00 11/14/17 20:59 10/16/17 08:47 17 GM Artificial Tears (Artificial Tears) 1 drops BID OPB 10/15/17 21:00 11/14/17 20:59 10/16/17 08:48 1 DROPS Albuterol/ Ipratropium (Duoneb) 3 ml QIDR INH 10/15/17 20:00 11/14/17 19:59 10/16/17 06:54 3 ML Miscellaneous Information (Consult Glycemic Management Pharmacy) 1 ea UD N/A 10/15/17 20:11 11/14/17 20:10 Insulin Aspart (novoLOG ASPART) SLIDING SCALE ACHS SC 10/15/17 21:00 11/14/17 20:59 10/15/17 22:04 19 UNITS Glucose (Glucose 40% Gel) 15-30 GRAMS 15 GRAMS... UD PRN PO 10/15/17 20:15 11/14/17 20:14 Glucose (Glucose Chew Tab) 4-8 Tablets 4 Tabl... UD PRN PO 10/15/17 20:15 11/14/17 20:14 Dextrose (Dextrose 50% 50ML Syringe) 25-50ML OF 50% DW IV FOR... UD PRN IV 10/15/17 20:15 11/14/17 20:14 Glucagon (Glucagon Inj) 1 mg UD PRN SQ 10/15/17 20:15 11/14/17 20:14 Miscellaneous Information (Consult) 1 ea UD PRN N/A 10/16/17 00:30 11/15/17 00:29 Piperacillin Sod/ Tazobactam Sod 3.375 gm/Dextrose 115 ml @ 28.75 mls/ hr Q8 IV 10/16/17 06:00 10/23/17 05:59 10/16/17 05:54 28.75 MLS/HR Miscellaneous Information (Consult) 1 ea UD PRN N/A 10/16/17 00:30 11/15/17 00:29 Budesonide (Pulmicort Respules 0.5MG/ 2ML Neb Soln) 0.5 mg BIDR INH 10/16/17 08:00 11/15/17 07:59 10/16/17 06:55 0.5 MG Vancomycin HCl 1500 mg/Sodium Chloride 530 ml @ 200 mls/hr Q18H IV 10/16/17 12:00 10/23/17 11:59 Levofloxacin (Consult) 1 ea UD PRN N/A 10/16/17 01:30 11/15/17 01:29 Levofloxacin 250 mg/Prmx 50 ml @ 50 mls/hr Q24H IV 10/17/17 01:00 10/22/17 01:59 Physical Exam Vital Signs Past 12 Hours Date Time Temp Pulse Resp B/P (MAP) Pulse Ox O2 Delivery O2 Flow Rate FiO2 10/16/17 08:09 36.9 73 20 129/69 (89) 93 10/16/17 06:55 78 16 99 Nasal Cannula 4.0 10/16/17 04:00 92 Nasal Cannula 2.0 10/16/17 03:24 36.6 79 19 114/62 (79) 92 Nasal Cannula 2.0 10/16/17 00:00 94 Nasal Cannula 2.0 10/16/17 00:00 36.7 76 24 129/73 (91) 94 Nasal Cannula 2.0 94 10/15/17 22:36 78 16 99 Nasal Cannula 4.0 Constitutional: Alert, oriented, in no acute distress. Oxygen via nasal cannula HEENT: Head is atraumatic and normocephalic. EOMs intact. Sclera anicteric. Face is symmetric. No perioral cyanosis. Mucous membranes moist. Neck: Supple, mildly elevated JVP Chest: Tender upon palpation over the left chest wall Pulmonary: Normal respiratory effort, bibasilar crackles, otherwise decreased breath sounds throughout Cardiac: Distant heart sounds. Regular rate and rhythm, normal S1 and S2, no gallops, no rubs, no obvious murmurs Extremities: Trace to +1 lower extremity edema. Upper extremities with trace to 1+ edema as well. No cyanosis. Pulses intact Abdomen: Normal bowel sounds, soft, non-tender, no abdominal mass palpated Skin: Scattered areas of ecchymosis. No rash Neurological: Oriented to person, place, and time Data Laboratory Results: Last 24 Hours Test 10/15/17 16:29 10/15/17 17:10 10/15/17 18:33 10/15/17 20:48 White Blood Count 6.14 K/uL Red Blood Count 4.03 M/uL Hemoglobin 9.1 g/dL Hematocrit 32.7 % Mean Corpuscular Volume 81.1 fL Mean Corpuscular Hemoglobin 22.6 pg Mean Corpuscular Hemoglobin Concent 27.8 g/dl Platelet Count 250 K/uL Mean Platelet Volume 9.6 fL Neutrophils (%) (Auto) 71.9 % Lymphocytes (%) (Auto) 11.2 % Monocytes (%) (Auto) 10.9 % Eosinophils (%) (Auto) 5.0 % Basophils (%) (Auto) 0.3 % Neutrophils # (Auto) 4.41 K/uL Lymphocytes # (Auto) 0.69 K/uL Monocytes # (Auto) 0.67 K/uL Eosinophils # (Auto) 0.31 K/uL Basophils # (Auto) 0.02 K/uL RDW Standard Deviation 60.6 fL RDW Coefficient of Variation 20.5 % Immature Granulocyte % (Auto) 0.7 % Immature Granulocyte # (Auto) 0.04 K/uL Nucleated RBC Absolute Count (auto) 0.07 K/uL Nucleated Red Blood Cells % 1.1 % Polychromasia 1+ Anisocytosis PRESENT Ovalocytes 1+ Venous Blood pH 7.41 Venous Blood Partial Pressure CO2 50 mmHg Venous Blood Partial Pressure O2 24 mmHg Venous Blood HCO3 31 mmol/L Venous Blood Oxygen Saturation < 60.0 % Venous Blood Base Excess 5.9 mEq/L Sodium Level 143 mmol/L Potassium Level 4.6 mmol/L Chloride Level 107 mmol/L Carbon Dioxide Level 31 mmol/L Anion Gap 5.0 mmol/L Blood Urea Nitrogen 15 mg/dl Creatinine 1.41 mg/dl Est Creatinine Clear Calc Drug Dose 47.3 ml/min Estimated GFR () 51.5 Estimated GFR (Non- 44.5 BUN/Creatinine Ratio 10.9 Random Glucose 106 mg/dl Calcium Level 8.9 mg/dl Total Bilirubin 0.3 mg/dl Direct Bilirubin < 0.1 mg/dl Aspartate Amino Transf (AST/SGOT) 12 U/L Alanine Aminotransferase (ALT/SGPT) 18 U/L Alkaline Phosphatase 91 U/L Troponin I < 0.015 ng/ml < 0.015 ng/ml Pro-B-Type Natriuretic Peptide 2238 pg/ml Total Protein 6.8 gm/dl Albumin 3.0 gm/dl Lipase 51 U/L Influenza Type A (RT-PCR) Neg for Influ A Influenza Type B (RT-PCR) Neg for Influ B Lactic Acid Level 1.3 mmol/L Procalcitonin 0.14 ng/ml Test 10/15/17 21:36 10/15/17 23:39 10/16/17 02:26 10/16/17 03:30 Bedside Glucose 322 mg/dl 298 mg/dl Troponin I < 0.015 ng/ml Urine Color YELLOW Urine Appearance CLEAR Urine pH 8.0 Urine Specific [place] 1.026 Urine Protein NEG Urine Glucose (UA) 2+ Urine Ketones NEG Urine Occult Blood NEG Urine Nitrite NEG Urine Bilirubin NEG Urine Urobilinogen NEG Urine Leukocyte Esterase TRACE Urine WBC (Auto) 5-10 /hpf Urine RBC (Auto) 5-10 /hpf Urine Hyaline Casts (Auto) 1-5 /lpf Urine Epithelial Cells (Auto) 10-20 /lpf Urine Bacteria (Auto) NEG Urine Yeast (Auto) BUDDING Test 10/16/17 04:48 10/16/17 07:03 10/16/17 08:28 Bedside Glucose 210 mg/dl 120 mg/dl White Blood Count 6.09 K/uL Red Blood Count 3.65 M/uL Hemoglobin 8.3 g/dL Hematocrit 29.3 % Mean Corpuscular Volume 80.3 fL Mean Corpuscular Hemoglobin 22.7 pg Mean Corpuscular Hemoglobin Concent 28.3 g/dl RDW Standard Deviation 60.0 fL RDW Coefficient of Variation 20.3 % Platelet Count 242 K/uL Mean Platelet Volume 9.6 fL Nucleated RBC Absolute Count (auto) 0.05 K/uL Nucleated Red Blood Cells % 0.9 % Chest x-ray: Chronic changes with new scattered airspace opacities suggestive of a multifocal pneumonia. EKG: Sinus rhythm at 70 bpm. Left axis deviation. Low voltage QRS. Inferior infarct. Telemetry reviewed: Normal sinus rhythm. Assessment & Plan ASSESSMENT/PLAN: 1. Acute on chronic combined systolic and diastolic CHF: He reports that his weight is up 10 lbs over the last 1.5 weeks, and he has experienced increased shortness of breath. His Pro-BNP is elevated at 2238. He continues to appear hypervolemic on examination. Recommend continuing IV Lasix 40 mg BID. Monitor I' s&O's as well as PRP closely. Low sodium diet, <2,000 mg daily. He may require an increased dose of PO diuretic therapy upon discharge. 2. Cardiomyopathy: Mildly reduced LV EF of 45-50% in July 2017 when he was admitted with bacteremia. This can be reevaluated in the future. No specific recommendations at this time. 3. Chest pain: His discomfort appears musculoskeletal in nature as it is reproduced on exam with palpating the area. His ECG shows no acute ischemic changes and cardiac enzymes have been negative. No additional ischemic evaluation recommended at this time. 4. Multivessel CAD status post LAD stents: No angina. His chest discomfort appears musculoskeletal in nature. Aspirin therapy should be continued indefinitely given his history of PCI. Plavix was discontinued in the past due to GI bleeding. Continue beta opal therapy. Patient takes atorvastatin 20 mg daily in the outpatient setting, but is not receiving it currently. Would continue statin therapy given his known CAD. 5. Paroxysmal atrial flutter: He has been in sinus rhythm on telemetry monitoring. He had not been on anticoagulation therapy secondary to request in the past. Anticoagulation therapy was started in February 2017 due to acute DVT, but it was discontinued in April 2017 for GI bleeding. Continue beta opal therapy for rate control of an further paroxysms of a flutter. 6. Disposition: Thank you for allowing us to see this patient in consultation. The patient was discussed with Dr. Hernandez, and the plan was made in collaboration with him. ADDENDUM BY CARDIOLOGY ATTENDING: Patient was seen and examined. Agree with above with following additions. He has had intermittent chest discomfort on the left side of his chest described as a sharp sensation. It is nonradiating and lasts only for a few minutes before resolving spontaneously. There is no specific trigger and it tends to occur while in bed. It was worse with coughing. It was tender on palpation earlier today when evaluated by Manuelito. Chest discomfort is the reason he came to the emergency department. He has also had worsening shortness of breath and reports a 10 lb weight gain in the past week. He states that he has not been receiving diuretic on a regular basis only if gaining more than 3 lb per day. He states that he has been gaining approximately 2 lb per day, not reaching the threshold for diuretic. He feels as though he is more edematous than usual. He has been coughing up white sputum. He vomited earlier this morning but feels better this afternoon. He believes that his chest pain is much improved and currently resolved. His shortness of breath has also improved. He admits to orthopnea if laying flat and also reports Paroxysmal nocturnal dyspnea. Chart, labs, chest x-ray imaging personally reviewed. ECG personally reviewed. telemetry personally reviewed. No arrhythmia. exam notable for: General: No acute distress. Neck: Thick but mild JVD visualized. Cardiac: Regular. Distant heart sounds. No audible murmur. Lungs: Rales base to mid lung rangel bilaterally. Abdomen: Nontender. Extremities: Trace to 1+ bilateral lower extremity edema. Trace upper extremity edema bilaterally. No cyanosis. Chest: mild tenderness left chest, reproducing chest discomfort reported above. ECG 10/15/2017: Sinus rhythm at 70 bpm. Artifact noted. Possible inferior infarct. ASSESSMENT/PLAN: 1. Acute on chronic combined systolic and diastolic CHF: He does appear to be hypervolemic but has a difficult exam. Agree with diuretic therapy. He did have a weight gain and increased swelling from his report however he has had worse lower extremity edema in the past. Continue with current regimen as he appears to be diuresing reasonably well this shift. Attempt for goal net negative fluid balance of approximately 1 L in 24 hours. Low-sodium diet. Strict I&Os. Daily weights. 2. Multivessel CAD status post PCI: Chest discomfort is atypical. He did have tenderness on examination reproducing his pain. No definite angina. Troponins are negative. Continue aspirin 81 mg daily indefinitely. Continue beta-opal. Continue statin therapy if no contraindications. 3. Cardiomyopathy: Most recent LV systolic function was reported as mildly reduced. This can be re-evaluated with repeat echocardiogram. 4. Paroxysmal atrial flutter: Currently in sinus rhythm. Not on anticoagulation therapy to patient preference in the past and then was on anticoagulation in 2017 for acute DVT but was discontinued for GI bleeding. Continue beta-opal therapy for rate control strategy. 5. Chest pain: Atypical and not likely ischemic in nature. 6. Pulmonary: He is also being treated for COPD exacerbation and also pneumonia. He does have significant lung issues. As per primary service. 7. Disposition: Cardiology will continue to follow. Patient care discussed with Dr. Coyne with the primary hospitalist service. Thank you for allowing me to participate in the care of your patient. Please call for any other questions or concerns. Sincerely, Gonzalo Hernandez M.D.
[2017-10-16] MEDS ORDERED: PERFLUTREN LIPID MICROSPHERE (DEFINITY) IV ONE (15:17)
--- NOTE | 2017-10-16 16:10 | ECHOCARDIOGRAM REPORT ---
*NOTICE TO RECEIVING [employer] This information is strictly Confidential and protected under [place] law. [place] law prohibits you from making any further disclosure of this information unless further disclosure is expressly permitted by the written consent of the person to whom it pertains or is authorized by law. A general authorization for the release of medical or other information is not sufficient for this purpose. Hospital accepts no responsibility if the information is made available to any other person, INCLUDING THE PATIENT. Interpretation Summary * Name: ESTELITA MCMILLAN Study Date: 10/16/2017 03:06 PM BP: 120/62 mmHg * Patient Location: C.2E\S\E206\S\1 HR: 65 * : 1930 (M/d/yyyy) Gender: Male Height: 73 in * Age: 87 yrs Ethnicity: [place] Weight: 227 lb * Ordering Physician: Roberto Hernandez * Referring Physician: Self, Referred * Performed By: Marybel Branch RDCS * * Reason For Study: LIMITED FOR LV FUNCTION * BSA: 2.3 m2 * -- Conclusions -- * Limited study. * Left ventricular systolic function is low normal. * No regional wall motion abnormalities noted. * Ejection Fraction = 50-55%. Procedure Details * A contrast injection of Definity was performed to improve assessment of LV function. * Contrast was injected into an intravenous site in the right arm. * One vial of Definity ultrasound contrast was diluted in normal saline to a total volume of 10 ml. A total of '1.5' ml of solution was administered during imaging. * Lot # [id number] of Definity utilized for procedure. * Expiration date OCT 31. * The attending nurse who injected the contrast agent was GUERDA ELLSWORTH. Left Ventricle * The left ventricle is normal in size. * There is borderline concentric left ventricular hypertrophy. * Left ventricular systolic function is low normal. * Ejection Fraction = 50-55%. * No regional wall motion abnormalities noted. MMode 2D Measurements and Calculations LVAd ap4 34.3 cm\S\2 LVLd ap4 9.3 cm EDV(MOD-sp4) 101.6 ml EDV(sp4-el) 106.8 ml LVAs ap4 19.8 cm\S\2 LVLs ap4 8.0 cm ESV(MOD-sp4) 38.8 ml ESV(sp4-el) 41.3 ml EF(MOD-sp4) 61.8 % EF(sp4-el) 61.3 % SV(MOD-sp4) 62.8 ml SI(MOD-sp4) 27.6 ml/m\S\2 SV(sp4-el) 65.5 ml SI(sp4-el) 28.8 ml/m\S\2
[2017-10-16] MEDS: TAMSULOSIN HCL 0.4 MG CAP PO SCH (21:10)
[2017-10-16] MEDS: FAMOTIDINE 20 MG TAB PO SCH (21:14)
[2017-10-16] MEDS: INSULIN DETEMIR FLEXPEN/FLEX TOUCH 100 UNITS/ML 3ML SQ SCH (21:30)
[2017-10-16] MEDS: HEPARIN SOD 5000 UNIT/0.5 ML CARP SQ SCH (21:31)
[2017-10-17] VITALS (9 sets, daily range): BP systolic 121–146; BP diastolic 63–76; PULSE 67–87; TEMP 36.4–36.8; O2SAT 93–98
[2017-10-17] MEDS: INSULIN ASPART 100 UNITS/ML 3 ML PEN SC SCH ×6 (00:40→21:24)
[2017-10-17] MEDS ORDERED: LEVOFLOXACIN 250MG / D5W IV SCH (01:00)
[2017-10-17] MEDS: METHYLPREDNISOLONE IV 60 MG in SYRINGE 0 ML IV SCH (04:13)
[2017-10-17 06:04] LABS: HEMATOCRIT 29.4 % (42-52); HEMOGLOBIN 8.3 g/dL (14.0-18.0); MEAN CELL VOLUME 80.5 fL (80-100); MEAN CORPUSCULAR HEMOGLOBIN 22.7 pg (25-34); MEAN CORPUSCULAR HGB CONC 28.2 g/dl (32-36); MEAN PLATELET VOLUME 10.3 fL (7.4-10.4); NUCLEATED RED BLOOD CELL ABS 0.04 K/uL (0-0); PLATELET COUNT 246 K/uL (130-400); RED CELL DISTRIBUTION WIDTH CV 20.2 % (11.5-14.5); WHITE BLOOD COUNT 5.11 K/uL (4.8-10.8)
[2017-10-17 06:33] LABS: CALCIUM 8.3 mg/dl (8.5-10.1); CREATININE 1.61 mg/dl (0.60-1.40); POTASSIUM 3.8 mmol/L (3.5-5.1)
[2017-10-17] MEDS: ALBUT/IPRATROP 3MG/0.5MG NEB 3 ML VIAL INH SCH ×4 (07:04→19:23)
[2017-10-17] MEDS: BUDESONIDE 0.5 MG/2 ML VIAL (PULMICORT) INH SCH ×2 (07:04→19:23)
[2017-10-17] MEDS: AVODART~ORDER AWAITING ACTION SCH ×3 (07:50→16:00)
[2017-10-17] MEDS: FLUDROCORTISONE ACETATE 0.1 MG TAB PO SCH ×2 (08:08→21:01)
[2017-10-17] MEDS: DOCUSATE SODIUM 100 MG CAP PO SCH ×2 (08:08→21:02)
[2017-10-17] MEDS: GUAIFENESIN 600 MG TABCR PO SCH ×2 (08:08→21:02)
[2017-10-17] MEDS: ASPIRIN 81 MG ECTAB PO SCH (08:10)
[2017-10-17] MEDS: GABAPENTIN 600 MG TAB PO SCH ×3 (08:10→21:04)
[2017-10-17] MEDS: DULOXETINE (CYMBALTA) 30 MG CAP PO SCH (08:10)
[2017-10-17] MEDS: POTASSIUM CHLORIDE 20 MEQ TABCR PO SCH ×2 (08:11→21:00)
[2017-10-17] MEDS: FUROSEMIDE INJ 40 MG in SYRINGE 0 ML IV SCH ×2 (08:13→17:50)
[2017-10-17] MEDS: BISACODYL 5 MG TABEC PO SCH ×2 (08:14→21:25)
[2017-10-17] MEDS: HYDROCORTISONE 10 MG TAB PO SCH ×2 (08:14→20:59)
[2017-10-17] MEDS: HEPARIN SOD 5000 UNIT/0.5 ML CARP SQ SCH ×2 (08:15→21:25)
[2017-10-17] MEDS: LIDODERM (LIDOCAINE) PATCH 5% TD SCH (08:16)
[2017-10-17] MEDS: OXYCODONE HCL 15 MG TABCR (OXYCONTIN) PO SCH ×2 (08:20→21:04)
[2017-10-17] MEDS: FLUTICASONE PROPIONATE NA SPR 16 GM BTL NAE SCH (08:21)
[2017-10-17] MEDS: POLYETHYLENE (MIRALAX) 17 GM PACK PO SCH ×2 (08:21→21:07)
[2017-10-17] MEDS: FLUTICASONE/SALMETEROL 250/50 (ADVAIR) 14 PUFF/1 INHALER INH SCH ×2 (08:21→20:57)
[2017-10-17] MEDS: INSULIN DETEMIR FLEXPEN/FLEX TOUCH 100 UNITS/ML 3ML SQ SCH ×2 (08:23→21:25)
[2017-10-17] MEDS: ARTIFICIAL TEARS OP SOLN OPB SCH ×2 (08:32→20:57)
--- NOTE | 2017-10-17 09:59 | Hospitalist Progress Note ---
Hospitalist Progress Note Date of Service Oct 17, 2017. Subjective Pt evaluation today including: conversation w/ patient, physical exam, chart review, lab review, review of inpatient medication list PO Intake: Tolerating PO diet Voiding: gomez catheter in place Patient reports feeling better today. He currently denies any shortness of breath, cough or wheezing. He states he is now tolerating his diet without nausea or vomiting. His appetite is back to normal. He does report some mild upper abdominal pain and states he has not moved his bowels since being admitted. He still feels weak and fatigued, but this is improved. The patient denies fevers, chills, sweats, chest pain, palpitations, claudication, cough, wheezing, shortness of breath, nausea, vomiting, dysuria, hematuria, urinary retention, paralysis, weakness, numbness and tingling. Additional Comments: See HPI for pertinent positives and negatives. All other systems reviewed and negative. Objective Vital Signs Date Time Temp Pulse Resp B/P (MAP) Pulse Ox O2 Delivery O2 Flow Rate FiO2 10/17/17 08:06 36.8 87 18 146/73 (97) 95 10/17/17 07:05 78 18 97 Nasal Cannula 4.0 10/17/17 04:36 36.7 69 20 122/68 (86) 93 Nasal Cannula 2.0 10/17/17 04:00 Nasal Cannula 2.0 10/17/17 00:01 Nasal Cannula 2.0 10/16/17 23:52 36.8 71 21 132/77 (95) 94 Nasal Cannula 2.0 10/16/17 20:00 Nasal Cannula 2.0 10/16/17 19:41 36.4 71 20 126/68 (87) 94 Nasal Cannula 2.0 10/16/17 19:19 80 18 96 Nasal Cannula 4.0 10/16/17 16:00 Nasal Cannula 2.0 10/16/17 15:37 78 16 96 Nasal Cannula 4.0 10/16/17 15:35 36.5 66 22 128/76 (93) 96 Nasal Cannula 2.0 10/16/17 12:36 78 16 99 Nasal Cannula 4.0 10/16/17 12:00 Nasal Cannula 2.0 10/16/17 11:47 36.9 70 22 120/62 (81) 94 Physical Exam Notes: General appearance: +Obese. Well-developed, well-nourished, no apparent distress Head: Normocephalic, atraumatic Eyes: Normal inspection, PERRL, EOMI ENT: Normal ENT inspection, hearing grossly normal, pharynx normal Neck: Supple, no JVD, trachea midline Respiratory/Chest: +Decreased breath sounds throughout. Currently on 2L NC. Lungs clear to auscultation, no respiratory distress Cardiovascular: Regular rate & rhythm, no gallop, no murmur Abdomen/GI: +Mild LUQ and RUQ TTP. Normal bowel sounds, soft Extremities/Musculoskeletal: Normal inspection, no calf tenderness, no pedal edema Neurological/Psych: Alert, normal mood/affect, oriented x 3 Skin: Normal color, warm/dry, no rash Laboratory Results Last 24 Hours Test 10/16/17 11:11 10/16/17 11:46 10/16/17 14:12 10/16/17 16:16 Bedside Glucose 122 mg/dl 117 mg/dl Prothrombin Time 10.7 SECONDS Prothromb Time International Ratio 1.0 Activated Partial Thromboplast Time 24.5 SECONDS Partial Thromboplastin Ratio 0.9 Troponin I < 0.015 ng/ml Test 10/16/17 20:12 10/17/17 00:37 10/17/17 04:11 10/17/17 05:31 Bedside Glucose 243 mg/dl 182 mg/dl 148 mg/dl White Blood Count 5.11 K/uL Red Blood Count 3.65 M/uL Hemoglobin 8.3 g/dL Hematocrit 29.4 % Mean Corpuscular Volume 80.5 fL Mean Corpuscular Hemoglobin 22.7 pg Mean Corpuscular Hemoglobin Concent 28.2 g/dl RDW Standard Deviation 60.0 fL RDW Coefficient of Variation 20.2 % Platelet Count 246 K/uL Mean Platelet Volume 10.3 fL Nucleated RBC Absolute Count (auto) 0.04 K/uL Nucleated Red Blood Cells % 0.7 % Sodium Level 139 mmol/L Potassium Level 3.8 mmol/L Chloride Level 103 mmol/L Carbon Dioxide Level 32 mmol/L Anion Gap 4.0 mmol/L Blood Urea Nitrogen 27 mg/dl Creatinine 1.61 mg/dl Est Creatinine Clear Calc Drug Dose 40.6 ml/min Estimated GFR () 43.9 Estimated GFR (Non- 37.9 BUN/Creatinine Ratio 16.8 Random Glucose 135 mg/dl Calcium Level 8.3 mg/dl Test 10/17/17 06:38 Bedside Glucose 131 mg/dl Assessment and Plan 87 y/o male with a history of CAD, HTN, chronic systolic/diastolic CHF, COPD, DM II, CKD stage III, orthostasis, neuropathy, BPH, recurrent UTI, chronic Gomez , depression and GERD who presents with weight gain, swelling, chest pain, and shortness of breath Acute on chronic combined systolic/diastolic heart failure, chronic hypoxic respiratory failure--stable -Admit to telemetry. No acute events overnight. Pt in SR with HR 60s-70s. Stable, will transfer to med/surg -O2 by protocol. Pt wears 2L NC chronically -Daily weights, strict I's & O's. -UO 2050 cc, net balance -468 cc on 10/16 -Lasix 40 mg IV BID17 -Low sodium diet -Repeat limited echo shows LVEF 50-55%. No WMA -Cardiology consulted, appreciate recs: Continue IV diuretics and low sodium diet. Chest pain, ACS r/o--stable, no ACS -Troponin negative x 3 -No acute ischemic changes on EKG COPD exacerbation/possible multifocal PNA--improving -CXR with suggested multifocal PNA, however afebrile and no leukocytosis -Decrease Solu-Medrol to 60 mg IV q12h -DuoNebs QIDR -Continue home Mucinex and Advair -Continue Pulmicort -Continue Levaquin 750 mg IV q48h (renal dosing), day #2 CAD, HTN--stable -Continue ASA, atenolol 12.5 mg PO qd Paroxysmal a-fib, h/o DVT--stable, in NSR -No anticoagulation due to h/o GI bleed DM II--stable -Levemir SC per protocol, pharmacy managing -Insulin sliding scale -Check BSGs q ac and qhs -HgbA1c 6.6 on 10/16 CKD stage III--stable -Baseline creatinine 1.5-1.8 -Creatinine 1.61 on 10/17, stable from 1.58 Neuropathy, depression -Continue gabapentin 600 mg PO TID, Cymbalta 30 mg PO qd BPH, recurrent UTI, chronic Gomez -UA positive for yeast, otherwise largely unremarkable. Urine culture negative -Continue dutasteride 0.5 mg PO qd and Flomax 0.4 mg PO hs DVT prophylaxis -Heparin 5000 units SC q12h -SCOTT Sandoval Code Status -Level I, FULL RESUSCITATION STATUS Dispo -From [facility] -PT/OT pending
--- NOTE | 2017-10-17 10:05 | CARDIOLOGY PROGRESS NOTE ---
DATE: 10/17/2017 TIME: 09:43 a.m. SUBJECTIVE: He feels much better today and is wondering if he can go home soon. His breathing is much improved. He has had very rare chest discomfort, stating it is almost completely resolved. He denies palpitations, syncope, near syncope or bleeding. His coughing has improved. OBJECTIVE: VITAL SIGNS: Temperature 36.8 degrees, heart rate 87 beats per minute, respiratory rate 18, and blood pressure 146/73 mmHg; however, his blood pressure has otherwise been normotensive. Oxygen saturation is 95% on supplemental oxygen. I's and O's negative 468 mL yesterday. He is negative nearly a liter so far today. His weight is 102.4 kilograms down from 103. GENERAL: No acute distress. He is alert. NECK: Difficult exam. No appreciated JVD today. CARDIAC EXAM: No ventricular heave. Distant heart sounds. No audible murmurs, rubs or gallops. LUNGS: Bibasilar rales, improved from yesterday. ABDOMEN: Soft, nontender, and nondistended. Normoactive bowel sounds. EXTREMITIES: Trace to 1+ bilateral lower extremity edema. Improved upper extremity edema, very trivial at this point. No cyanosis. CHEST: Tender to palpation in the left lateral wall, reproducing his chest discomfort mildly. PSYCHIATRIC: Affect appears appropriate. MEDICATIONS: Include aspirin 81 mg daily, atenolol 12.5 mg p.o. daily, Lasix 40 mg IV b.i.d., heparin 5000 units subQ q. 12 hours, levofloxacin 750 mg IV q. 48 hours, methylprednisolone 60 mg IV q. 8 hours, and potassium chloride 20 mg p.o. b.i.d. LABORATORY DATA: White blood cell count of 5.11, hemoglobin 8.3, and platelets 246. Sodium 139, potassium 3.8, BUN 27, and creatinine 1.61 and it was 1.58 yesterday. Telemetry personally reviewed. No arrhythmia. Echocardiogram on 10/16/[address] Loera, low normal LV systolic function with an EF of 50%-55%. No regional wall motion abnormalities reported. ASSESSMENT AND PLAN: 1. Acute on chronic diastolic congestive heart failure: He has a difficult exam, but his renal function remains stable with diuresis. Continue current diuretic regimen. Would aim for 1 liter negative today. Monitor renal function closely. BUN became more elevated, but this could be secondary to steroids, which he is receiving for chronic obstructive pulmonary disease exacerbation. Continue low sodium diet and strict I's and O's as well as daily weights. 2. Multivessel coronary artery disease, status post percutaneous coronary intervention: Atypical chest discomfort, which is reproducible on exam as he has a tender left chest wall. No definite angina. He has had negative troponins. Continue aspirin 81 mg daily indefinitely. Continue beta opal. Can resume outpatient statin therapy if no contraindications. 3. Cardiomyopathy: Echo images were personally reviewed. His LV systolic function is normal. 4. Paroxysmal atrial flutter: Currently in sinus rhythm. Not on anticoagulation therapy secondary to recurrent GI bleeding. Continue beta opal. 5. Chest pain: Atypical and not consistent with ischemic heart disease. 6. Pulmonary: He is being treated for COPD exacerbation as per primary service. 7. Disposition: Cardiology will continue to follow.
--- NOTE | 2017-10-17 11:03 | Pharmacy Progress Note ---
Glycemic Control Progress Note Date of Service Oct 17, 2017. Scope Glycemic Pharmacist consulted for glycemic control to write orders per [facility] inpatient glycemic control protocol. Objective Accuchecks BSG (last 24hrs): Test 10/16/17 11:11 10/16/17 16:16 10/16/17 20:12 10/17/17 00:37 Bedside Glucose 122 mg/dl (70-99) 117 mg/dl (70-99) 243 mg/dl (70-99) 182 mg/dl (70-99) Test 10/17/17 04:11 10/17/17 05:31 10/17/17 06:38 Bedside Glucose 148 mg/dl (70-99) 131 mg/dl (70-99) Random Glucose 135 mg/dl (70-99) HbA1c: Test 10/16/17 08:28 Hemoglobin A1c 6.6 % (4.5-5.6) H Recent Pertinent Medications The patient is currently receiving: * Basal insulin: Levemir SQ Q HS per the following scale: 0 units if less than 80; 10 units if 80-100; 20 units if 100-160; 30 units if above 160 * Correctional Insulin: Novolog Correction per scale ACHS + at 0000, 0400 Goal Range: Low 110 mg/dL - High 140 mg/dL Correction Factor: 10 mg/dL/unit * Prandial insulin: Per carb ratio of 1 unit per 4 grams CHO consumed Outpatient Anti-Diabetic Meds Novolog 70/30 25 units w/ breakfast + 10 units w/ dinner Levemir 20 units Q HS Assessment & Plan ASSESSMENT: 10/15/17 * 87 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 * Pt received 1 dose of IV Solu-medrol in ED - will check BSG overnight * Outpatient regimen includes premixed basal/prandial insulin of Novolog 70/30 mix insulin. * Pre-mixed insulin is difficult to titrate since it is already in a fixed distribution of basal:prandial insulin. Continuing pre-mixed insulin for admission typically lead to hypoglycemia d/t changing PO status but rapid acting insulin is unable to be held. * Will utilize recommended regimen of SQ basal bolus insulin regimen with Levemir + NovoLog (CF+CR) * ADA & AACE recommend a goal blood sugar range 140-180 mg/dl for the majority of critically ill & non-critically ill patients. However, more stringent targets may be selected in individual cases. Will utilize more stringent goal of 110-140mg/dl based on patient age & comorbidities. 10/16/17 * BSGs did climb following the administration of Solu-medrol 125mg IV x 1 in the ER last evening * However BSGs did fall overnight to desirable range following aggressive correction w/ Novolog along w/ stressed dose of Levemir * This AM Solu-Medrol is going to be restarted to high dose (60mg IV Q 8 hours) . In the past this has greatly increased his insulin requirements. Leading to 2-3 fold increases in daily insulin requirement. * Will base new insulin doses upon severe stress and home insulin requirement ( home regimen provided ~55 units/day), these estimates are in line with what he has required in the past while on IV steroids. 10/17/17 * BSGs ranged 117-243 over the last 24 hours; only one BSG above 182 in last 24 hours - current level of control acceptable * Fasting BSG 131 this AM with 50 units Levemir on board along w/ 6 units of Novolog correction given overnight * Steroid dose is being reduced ~33% today, would expect improved insulin sensitivity in the next 24 hours * Will continue the same Levemir dosing scale given possibility of changing insulin sensitivity today, no increase or decrease in dose as correctional insulin required last evening in addition to current order. If pt's BSG does begin to drop there will be a lesser dose given this PM based upon scale. * CF and CR performed well 2 of 3 times yesterday when given w/ meals. Will continue the same today and reeval tomorrow as increase insulin resistance likely to persist thru first half of the day today. PLAN FOR INPATIENT GLYCEMIC CONTROL: * Give Levemir 20 units SQ x 1 now since we did not give any this AM as steroids had not yet been reordered * Continue Levemir BID per the following scale: * 0 units if less than 80 * 10 units if 80-100 * 20 units if 100-160 * 30 units if above 160 * Continuing correction factor of 10 mg/dl/unit * Continuing carb ratio of 1 unit per 4 grams CHO consumed * Continuing goal range of Low 110 mg/dL - High 140 mg/dL * Check BSG at 0200 and cover w/ Novolog as above * Reeval insulin dose with each step down in steroid dose * Please note that the plan above was derived based on current level of insulin resistance and hospital stress. These recommendations are appropriate for inpatient admission only. Plan of care upon discharge will need to be reassessed to avoid potential outpatient hypo/hyperglycemia. Thank you.
[2017-10-17] MEDS ORDERED: METHYLPREDNISOLONE IV 60 MG in SYRINGE 0 ML IV SCH (18:00)
[2017-10-17] MEDS: DUTASTERIDE 0.5MG PO SCH (20:57)
[2017-10-17] MEDS: TAMSULOSIN HCL 0.4 MG CAP PO SCH (20:59)
[2017-10-17] MEDS: FAMOTIDINE 20 MG TAB PO SCH (21:03)
[2017-10-17] MEDS ORDERED: VANCOMYCIN TROUGH ONE (23:30)
[2017-10-18] VITALS (10 sets, daily range): BP systolic 100–144; BP diastolic 49–84; PULSE 51–74; TEMP 36.6–37.1; O2SAT 92–99
[2017-10-18] MEDS: ONDANSETRON INJ 2 MG/ML 2 ML VIAL IV PRN (00:05)
[2017-10-18] MEDS ORDERED: INSULIN ASPART 100 UNITS/ML 3 ML PEN SC ONE (02:00)
[2017-10-18] MEDS: ALBUT/IPRATROP 3MG/0.5MG NEB 3 ML VIAL INH SCH ×4 (07:19→19:18)
[2017-10-18] MEDS: BUDESONIDE 0.5 MG/2 ML VIAL (PULMICORT) INH SCH ×2 (07:19→19:18)
[2017-10-18] MEDS ORDERED: INSULIN HUMAN NPH SC SCH (08:00)
[2017-10-18] MEDS: GUAIFENESIN 600 MG TABCR PO SCH ×2 (08:15→20:38)
[2017-10-18] MEDS: GABAPENTIN 600 MG TAB PO SCH ×3 (08:15→20:39)
[2017-10-18] MEDS: HYDROCORTISONE 10 MG TAB PO SCH ×2 (08:16→20:37)
[2017-10-18] MEDS: DOCUSATE SODIUM 100 MG CAP PO SCH ×2 (08:17→20:36)
[2017-10-18] MEDS: DULOXETINE (CYMBALTA) 30 MG CAP PO SCH (08:17)
[2017-10-18] MEDS: POTASSIUM CHLORIDE 20 MEQ TABCR PO SCH ×2 (08:17→20:38)
[2017-10-18] MEDS: ARTIFICIAL TEARS OP SOLN OPB SCH ×2 (08:18→20:35)
[2017-10-18] MEDS: FLUTICASONE/SALMETEROL 250/50 (ADVAIR) 14 PUFF/1 INHALER INH SCH ×2 (08:18→20:35)
[2017-10-18] MEDS: FLUTICASONE PROPIONATE NA SPR 16 GM BTL NAE SCH (08:19)
[2017-10-18] MEDS: ASPIRIN 81 MG ECTAB PO SCH (08:19)
[2017-10-18] MEDS: POLYETHYLENE (MIRALAX) 17 GM PACK PO SCH ×2 (08:20→20:36)
[2017-10-18] MEDS: LIDODERM (LIDOCAINE) PATCH 5% TD SCH (08:21)
[2017-10-18] MEDS: FLUDROCORTISONE ACETATE 0.1 MG TAB PO SCH ×2 (08:24→20:37)
[2017-10-18 08:28] LABS: HEMATOCRIT 30.3 % (42-52); HEMOGLOBIN 8.5 g/dL (14.0-18.0); MEAN CELL VOLUME 79.9 fL (80-100); MEAN CORPUSCULAR HEMOGLOBIN 22.4 pg (25-34); MEAN CORPUSCULAR HGB CONC 28.1 g/dl (32-36); MEAN PLATELET VOLUME 9.9 fL (7.4-10.4); NUCLEATED RED BLOOD CELL ABS 0.06 K/uL (0-0); PLATELET COUNT 249 K/uL (130-400); RED CELL DISTRIBUTION WIDTH CV 20.2 % (11.5-14.5); RED CELL DISTRIBUTION WIDTH SD 59.2 fL (36.4-46.3); WHITE BLOOD COUNT 5.55 K/uL (4.8-10.8)
[2017-10-18] MEDS: BISACODYL 5 MG TABEC PO SCH ×2 (08:35→20:34)
[2017-10-18] MEDS: OXYCODONE HCL 15 MG TABCR (OXYCONTIN) PO SCH ×2 (08:35→20:34)
[2017-10-18] MEDS: HEPARIN SOD 5000 UNIT/0.5 ML CARP SQ SCH ×2 (08:36→20:34)
[2017-10-18 08:47] LABS: CALCIUM 8.3 mg/dl (8.5-10.1); CREATININE 1.52 mg/dl (0.60-1.40); POTASSIUM 3.3 mmol/L (3.5-5.1)
[2017-10-18] MEDS: INSULIN ASPART 100 UNITS/ML 3 ML PEN SC SCH ×4 (09:05→20:33)
--- NOTE | 2017-10-18 10:59 | Hospitalist Progress Note ---
Hospitalist Progress Note Date of Service Oct 18, 2017. Subjective Pt evaluation today including: conversation w/ patient, physical exam, chart review, lab review, review of inpatient medication list Voiding: gomez catheter in place Patient reports feeling well. He denies any shortness of breath at rest but does note dyspnea on exertion. He complains of constipation but is otherwise feeling well. The patient denies fevers, chills, sweats, chest pain, palpitations, claudication, cough, wheezing, nausea, vomiting, abdominal pain, dysuria, hematuria, urinary retention, paralysis, weakness, numbness and tingling. Additional Comments: See HPI for pertinent positives and negatives. All other systems reviewed and negative. Objective Vital Signs Date Time Temp Pulse Resp B/P (MAP) Pulse Ox O2 Delivery O2 Flow Rate FiO2 10/18/17 08:05 36.6 65 20 135/76 (95) 97 Nasal Cannula 2.0 10/18/17 07:19 67 16 92 Room Air 10/18/17 00:40 Nasal Cannula 2.0 10/18/17 00:00 37.1 68 20 140/84 (102) 97 3.0 10/17/17 19:40 Nasal Cannula 2.0 10/17/17 19:23 68 16 95 Nasal Cannula 3.0 10/17/17 17:00 36.7 24 121/63 (82) 98 Room Air 10/17/17 16:00 Nasal Cannula 2.0 10/17/17 15:15 70 18 96 Nasal Cannula 4.0 10/17/17 12:00 36.4 67 18 143/76 (98) 98 Physical Exam Notes: General appearance: +Obese. Well-developed, well-nourished, no apparent distress Head: Normocephalic, atraumatic Eyes: Normal inspection, PERRL, EOMI ENT: Normal ENT inspection, hearing grossly normal, pharynx normal Neck: Supple, no JVD, trachea midline Respiratory/Chest: +Decreased breath sounds throughout. Currently on 2L NC. Lungs clear to auscultation, no respiratory distress Cardiovascular: Regular rate & rhythm, no gallop, no murmur Abdomen/GI: +Upper quadrants very mildly TTP. Normal bowel sounds, soft Extremities/Musculoskeletal: Normal inspection, no calf tenderness, no pedal edema Neurological/Psych: Alert, normal mood/affect, oriented x 3 Skin: Normal color, warm/dry, no rash Laboratory Results Last 24 Hours Test 10/17/17 11:50 10/17/17 16:23 10/17/17 20:38 10/18/17 02:02 Bedside Glucose 213 mg/dl 164 mg/dl 155 mg/dl 229 mg/dl Test 10/18/17 07:46 White Blood Count 5.55 K/uL Red Blood Count 3.79 M/uL Hemoglobin 8.5 g/dL Hematocrit 30.3 % Mean Corpuscular Volume 79.9 fL Mean Corpuscular Hemoglobin 22.4 pg Mean Corpuscular Hemoglobin Concent 28.1 g/dl RDW Standard Deviation 59.2 fL RDW Coefficient of Variation 20.2 % Platelet Count 249 K/uL Mean Platelet Volume 9.9 fL Nucleated RBC Absolute Count (auto) 0.06 K/uL Nucleated Red Blood Cells % 1.1 % Sodium Level 139 mmol/L Potassium Level 3.3 mmol/L Chloride Level 99 mmol/L Carbon Dioxide Level 32 mmol/L Anion Gap 7.0 mmol/L Blood Urea Nitrogen 31 mg/dl Creatinine 1.52 mg/dl Est Creatinine Clear Calc Drug Dose 43.1 ml/min Estimated GFR () 47.1 Estimated GFR (Non- 40.6 BUN/Creatinine Ratio 20.5 Random Glucose 98 mg/dl Calcium Level 8.3 mg/dl Assessment and Plan 87 y/o male with a history of CAD, HTN, chronic systolic/diastolic CHF, COPD, DM II, CKD stage III, orthostasis, neuropathy, BPH, recurrent UTI, chronic Gomez , depression and GERD who presents with weight gain, swelling, chest pain, and shortness of breath Acute on chronic combined systolic/diastolic heart failure, chronic hypoxic respiratory failure--improving -Admit to telemetry. No acute events overnight. Pt in SR with HR 60s-70s. Stable, will transfer to med/surg -O2 by protocol. Pt wears 2L NC chronically -Daily weights, strict I's & O's. -UO 3900 cc, net balance -2505 cc on 10/17 -Lasix 40 mg IV BID17 -Low sodium diet -Repeat limited echo shows LVEF 50-55%. No WMA -Cardiology consulted, appreciate recs: Continue IV diuretics and low sodium diet. Chest pain, ACS r/o--stable, no ACS -Troponin negative x 3 -No acute ischemic changes on EKG COPD exacerbation/possible multifocal PNA--resolving -CXR with suggested multifocal PNA, however afebrile and no leukocytosis -D/c Solu-Medrol -Prednisone 40 mg PO qd -DuoNebs QIDR -Continue home Mucinex and Advair -Continue Pulmicort -Continue Levaquin 750 mg IV q48h (renal dosing), day #3 of 5 Hypokalemia -Potassium 3.3 on 10/18, down from 3.8 -KCl 40 mEq PO x1, continue KCl 20 mEq PO BID CAD, HTN--stable -Continue ASA, atenolol 12.5 mg PO qd Paroxysmal a-fib, h/o DVT--stable, in NSR -No anticoagulation due to h/o GI bleed DM II--stable -Levemir SC per protocol, pharmacy managing -NPH 40 units SC qd w/prednisone -Insulin sliding scale -Check BSGs q ac and qhs -HgbA1c 6.6 on 10/16 CKD stage III--stable -Baseline creatinine 1.5-1.8 -Creatinine 1.52 on 10/18, down from 1.61 Neuropathy, depression -Continue gabapentin 600 mg PO TID, Cymbalta 30 mg PO qd BPH, recurrent UTI, chronic Gomez -UA positive for yeast, otherwise largely unremarkable. Urine culture negative -Continue dutasteride 0.5 mg PO qd and Flomax 0.4 mg PO hs DVT prophylaxis -Heparin 5000 units SC q12h -SCOTT Sandoval Code Status -Level I, FULL RESUSCITATION STATUS Dispo -From [facility] -PT/OT pending -Pt had significant weight gain prior to admission. Creatinine actually mildly improved today and finally having good diuresis, will continue IV Lasix and get pt as euvolemic as possible prior to return to SNF
[2017-10-18] MEDS ORDERED: FUROSEMIDE INJ 40 MG in SYRINGE 0 ML IV ONE (11:30)
[2017-10-18] MEDS ORDERED: POTASSIUM CHLORIDE 20 MEQ TABCR PO ONE (11:30)
--- NOTE | 2017-10-18 12:26 | Cardiology Follow-Up ---
Subjective Date of Service: Oct 18, 2017. Pt evaluation today including: conversation w/ patient, physical exam, chart review, lab review, review of studies, review of inpatient medication list, conversation w/ attending History of Present Illness Patient is currently sitting in his chair in room 262. He feels that his breathing has greatly improved. He was able to walk the hallway this morning without limiting dyspnea. He denies orthopnea or PND. He does not note any significant lower extremity edema. He continues to have some intermittent chest discomfort at rest, but he denies any chest discomfort when ambulating. He noted some lightheadedness towards the end of his walk this morning, but he denies syncope or presyncope. He denies palpitations. He denies abnormal bleeding. Social History Smoking Status: Former Smoker History of Alcohol Use: Yes (2 drinks/week) Objective Vital Signs Past 12 Hours Date Time Temp Pulse Resp B/P (MAP) Pulse Ox O2 Delivery O2 Flow Rate FiO2 10/18/17 11:01 51 15 93 Nasal Cannula 2.0 10/18/17 08:05 36.6 65 20 135/76 (95) 97 Nasal Cannula 2.0 10/18/17 08:00 92 Nasal Cannula 2.0 10/18/17 07:19 67 16 92 Room Air 10/18/17 00:40 Nasal Cannula 2.0 Last Recorded Weight-Kilograms: 102.900 Physical Exam Constitutional: Alert, oriented, in no acute distress. Oxygen via nasal cannula HEENT: Head is atraumatic and normocephalic. EOMs intact. Sclera anicteric. Face is symmetric. No perioral cyanosis. Mucous membranes moist. Neck: Supple, no appreciable JVD Pulmonary: Normal respiratory effort, there are some residual crackles in the right lower lung field, but overall lung sound have improved Cardiac: Distant heart sounds. Regular rate and rhythm, normal S1 and S2, no gallops, no rubs, no obvious murmurs Extremities: Trace lower extremity edema bilaterally. No cyanosis. Pulses intact Abdomen: Normal bowel sounds, soft, non-tender, no abdominal mass palpated Skin: Scattered areas of ecchymosis. No rash Neurological: Oriented to person, place, and time Data Laboratory Results: Last 24 Hours Test 10/17/17 16:23 10/17/17 20:38 10/18/17 02:02 10/18/17 07:46 Bedside Glucose 164 mg/dl 155 mg/dl 229 mg/dl White Blood Count 5.55 K/uL Red Blood Count 3.79 M/uL Hemoglobin 8.5 g/dL Hematocrit 30.3 % Mean Corpuscular Volume 79.9 fL Mean Corpuscular Hemoglobin 22.4 pg Mean Corpuscular Hemoglobin Concent 28.1 g/dl RDW Standard Deviation 59.2 fL RDW Coefficient of Variation 20.2 % Platelet Count 249 K/uL Mean Platelet Volume 9.9 fL Nucleated RBC Absolute Count (auto) 0.06 K/uL Nucleated Red Blood Cells % 1.1 % Sodium Level 139 mmol/L Potassium Level 3.3 mmol/L Chloride Level 99 mmol/L Carbon Dioxide Level 32 mmol/L Anion Gap 7.0 mmol/L Blood Urea Nitrogen 31 mg/dl Creatinine 1.52 mg/dl Est Creatinine Clear Calc Drug Dose 43.1 ml/min Estimated GFR () 47.1 Estimated GFR (Non- 40.6 BUN/Creatinine Ratio 20.5 Random Glucose 98 mg/dl Calcium Level 8.3 mg/dl Test 10/18/17 11:42 Bedside Glucose 72 mg/dl Assessment and Plan ASSESSMENT/PLAN: 1. Acute on chronic combined systolic and diastolic CHF: He has diuresed well and has improved symptomatically. He does not appear hypervolemic on examination today. His renal function has remained stable. When he is stable for discharge, recommend sending him home on a higher dose of PO Lasix at 40 mg BID with close follow-up of his renal function as an outpatient. Continue to document I's&O's. Monitor PRP closely. Low sodium diet, <2,000 mg daily. 2. Multivessel CAD status post LAD stents: He has atypical chest discomfort which has been reproducible on exam. No definite angina. He has had negative troponins. Aspirin therapy should be continued indefinitely given his history of PCI. Continue beta opal therapy. Recommend resuming outpatient statin therapy if no contraindications. 3. Paroxysmal atrial flutter: He is clinically in sinus rhythm and has been asymptomatic. He had not been on anticoagulation therapy secondary to request in the past. Anticoagulation therapy was started in February 2017 due to acute DVT , but it was discontinued in April 2017 for GI bleeding. Continue beta opal therapy for rate control of an further paroxysms of a flutter. 4. Disposition: Thank you for allowing us to see this patient in consultation. The patient was discussed with Dr. Henrandez, and the plan was made in collaboration with him.
--- NOTE | 2017-10-18 15:01 | Pharmacy Progress Note ---
Pharmacy Glycemic Short Note 2 Date of Service Oct 18, 2017. OUTPATIENT ANTIDIABETIC REGIMEN: * Novolog 70/30 - 25 units qAM and 10 units qPM ... Levemir 20 units in the evening ASSESSMENT: * Mr Enciso is an 87 y/o M with a PMH of CKD stage 3, CHF, COPD, CAD, and well- controlled type 2 diabetes who presents with pneumonia. He was initially on 3 days of high dose IV steroids now transitioned to prednisone 40 mg. The patient has received over 100 units of insulin the past two days. Yesterday's blood sugars were [phone] ... overnight at 0200 blood sugar was 229 mg/dL. Fasting this morning is 72 mg/dL. Patient received 115 units yesterday with 40 units of basal (double home dose). * For Levemir, decrease to home dose of 20 units. Provided lower dose for this evening in case patient has too much basal onboard already. Since he is on PO prednisone, give NPH 0.4 units/kg or 40 units with prednisone. Loosened Novolog at lunch due to downwards trend. Also NPH will replace some Novolog. Overnight checks no longer needed as should see decrease in blood sugar from HS to AM. PLAN FOR INPATIENT GLYCEMIC CONTROL: * Basal insulin * Lantus 10-20 units SQ BID (10 units if blood sugar under 120 mg/dL) * Bolus insulin * NovoLog per scale ACHS or Q6hrs while NPO * Goal Range: Low 110 mg/dL - High 140 mg/dL * Correction Factor: 20 mg/dL/unit * Nutritional / Prandial insulin per carb ratio of 1 unit per 7 grams CHO consumed PLAN FOR DISCHARGE: * if patient is not having hypoglycemia reasonable to continue current regimen even though it is odd
[2017-10-18] MEDS ORDERED: FUROSEMIDE INJ 40 MG in SYRINGE 0 ML IV SCH (17:00)
[2017-10-18] MEDS: DUTASTERIDE 0.5MG PO SCH (20:35)
[2017-10-18] MEDS: TAMSULOSIN HCL 0.4 MG CAP PO SCH (20:37)
[2017-10-18] MEDS: FAMOTIDINE 20 MG TAB PO SCH (20:39)
[2017-10-18] MEDS ORDERED: INSULIN DETEMIR FLEXPEN/FLEX TOUCH 100 UNITS/ML 3ML SC SCH ×2 (21:00)
[2017-10-19 00:52] VITALS: O2SAT 94
[2017-10-19 07:09] LABS: HEMATOCRIT 31.7 % (42-52); HEMOGLOBIN 8.9 g/dL (14.0-18.0); MEAN CELL VOLUME 80.1 fL (80-100); MEAN CORPUSCULAR HEMOGLOBIN 22.5 pg (25-34); MEAN CORPUSCULAR HGB CONC 28.1 g/dl (32-36); MEAN PLATELET VOLUME 8.8 fL (7.4-10.4); NUCLEATED RED BLOOD CELL ABS 0.05 K/uL (0-0); PLATELET COUNT 230 K/uL (130-400); RED CELL DISTRIBUTION WIDTH CV 20.1 % (11.5-14.5); RED CELL DISTRIBUTION WIDTH SD 59.9 fL (36.4-46.3); WHITE BLOOD COUNT 4.84 K/uL (4.8-10.8)
[2017-10-19 07:11] VITALS: PULSE 62; O2SAT 97
[2017-10-19] MEDS: ALBUT/IPRATROP 3MG/0.5MG NEB 3 ML VIAL INH SCH (07:11)
[2017-10-19 07:30] LABS: CALCIUM 8.3 mg/dl (8.5-10.1); CREATININE 1.44 mg/dl (0.60-1.40); POTASSIUM 3.5 mmol/L (3.5-5.1)
[2017-10-19] MEDS ORDERED: LSX40 PO (07:48)
[2017-10-19] MEDS ORDERED: LEVO1TAB35 PO (07:50)
[2017-10-19] MEDS ORDERED: PRED20TA PO (07:52)
[2017-10-19 07:56] VITALS: BP 137/76; PULSE 70; TEMP 36.8; O2SAT 97
--- NOTE | 2017-10-19 08:01 | Discharge Instructions ---
Discharge Instructions Date of Service Oct 19, 2017. Admission Reason for Admission: Acute Exacerbation Of Chf, Pneumonia, Substernal Discharge Discharge Diagnosis / Problem: Acute on chronic systolic and diastolic heart failure, COPD exac Discharge Goals Goal(s): Improve function, Improve disease control Activity Recommendations Activity Level: OOB In Chair, Assistance Required Therapies: Physical Therapy, Occupational Therapy Lifting Limitations: none Exercise/Sports Limitations: as tolerated Shower/Bathe: no limitations . Additional Information Patient informed of condition: Yes Advance Directives: Yes DNR: No Level of Care: Skilled Communicable Disease: No Prognosis: Improving Oxygen at (LPM): 2L Ball Catheter: Yes Instructions / Follow-Up Instructions / Follow-Up Medications: - LASIX: please note that the dose has been increased to 40mg twice a day from once a day - LEVAQUIN: 750mg, needs one last dose tomorrow (10/20) - PREDNISONE: 20mg daily for two days then stop, this completes his brief taper Acute on chronic diastolic and systolic heart failure The patient presented volume overloaded, diuresed nearly 6 liters on Lasix 40mg IV twice a day changed to Lasix 40mg PO twice a day, tolerated well Creatinine has been stable, as has his potassium at 3.5 WEIGHT PATIENT EVERY MORNING, IF WEIGHT INCREASES BY 3 POUNDS FROM BASELINE THEN GIVE ZAROXOLYN three pound weight gain is total, not a daily amount so if he gains 2 pounds one morning and the next morning he gains 1 pound, give the Zaroxolyn and notify his physician please check a renal profile in 1 week follow up with cardiology in 2-3 weeks, Dr. Hernandez Mild COPD exacerbation: possibly triggered by volume overload lungs clear, no wheezing one further dose of Levaquin and two more doses of Prednisone then stop continue maintenance inhalers FOLLOW UP - physician at the [facility] within one week - Dr. Hernandez in 2-3 weeks, call for appointment Call 911 and go to the Emergency Room if: * You have tightness or pain in your chest that does not go away with rest or Nitroglycerin * You are very short of breath even with rest Call your doctor if any of the following symptoms or problems start or get worse: * Shortness of breath or difficulty breathing * Wake up at night short of breath * Chest pain * Cough * Swelling of your hands, fee, or legs * More fatigued or tired with your normal activity * Palpitations - sudden fast heart beats WEIGHT * Weigh yourself every morning after using the bathroom. * Use the same scale. * Wear the same amount of clothing. * Write your weight down on your chart. * Call your doctor if you gain more than 2-3 pounds in 1-2 days. MEDICATIONS * Use this discharge instruction sheet for instructions. * Take your medications at the time your doctor ordered. * Do not skip a dose of your medicines. * If you miss a dose of medicine, take as soon as possible, but DO NOT DOUBLE A DOSE. * Read your medicine information when you get home. * Know all of the side effects of your medicine. * Call your doctor's office if you have any side effects. * Be sure all of your doctors know what medicine and herbs you take (including cold, flu, and herbal medicine). * Pain Medicine: If you do not get relief from your pain, please call your doctor for help. Take the following with you to your follow-up doctor appointments: * Weight Chart * Medication List * List of questions Do not drink excessive alcohol, beer or wine. Current Hospital Diet Patient's current hospital diet: Low Sodium Diet (2gm Na), Diabetes Type 2 Diet Discharge Diet Recommended Diet: Low Sodium Diet (2gm Na), Diabetes Type 2 Diet Fluid Restriction: 1800 ml (7 cups) Pending Studies Studies pending at discharge: no Physician Orders On Transfer POLST Discussion: Not Applicable Laboratory Results Hemoglobin A1c Test 10/16/17 08:28 Range/Units Estimated Average Glucose 143 mg/dl Hemoglobin A1c 6.6 H 4.5-5.6 % Medical Emergencies . Who to Call and When: Medical Emergencies: If at any time you feel your situation is an emergency, please call 911 immediately. . Non-Emergent Contact Non-Emergency issues call your: Primary Care Provider, Torch Shearer Call Non-Emergent contact if: you have any medication questions gaining weight, edema . . "Provider Documentation" section prepared by Obed Coyne. . Core Measure Problem Core Measures: None [place] Drug Monitoring Program Search Results: no issues identified
[2017-10-19] MEDS: DOCUSATE SODIUM 100 MG CAP PO SCH (08:10)
[2017-10-19] MEDS: FLUTICASONE PROPIONATE NA SPR 16 GM BTL NAE SCH (08:10)
[2017-10-19] MEDS: FLUTICASONE/SALMETEROL 250/50 (ADVAIR) 14 PUFF/1 INHALER INH SCH (08:10)
[2017-10-19] MEDS: ARTIFICIAL TEARS OP SOLN OPB SCH (08:10)
[2017-10-19] MEDS: DULOXETINE (CYMBALTA) 30 MG CAP PO SCH (08:11)
[2017-10-19] MEDS: HYDROCORTISONE 10 MG TAB PO SCH (08:11)
[2017-10-19] MEDS: ASPIRIN 81 MG ECTAB PO SCH (08:13)
[2017-10-19] MEDS: FLUDROCORTISONE ACETATE 0.1 MG TAB PO SCH (08:13)
[2017-10-19] MEDS: POLYETHYLENE (MIRALAX) 17 GM PACK PO SCH (08:13)
[2017-10-19] MEDS: POTASSIUM CHLORIDE 20 MEQ TABCR PO SCH (08:13)
[2017-10-19] MEDS: BISACODYL 5 MG TABEC PO SCH (08:13)
[2017-10-19] MEDS: GABAPENTIN 600 MG TAB PO SCH (08:15)
[2017-10-19] MEDS: GUAIFENESIN 600 MG TABCR PO SCH (08:15)
[2017-10-19] MEDS: OXYCODONE HCL 15 MG TABCR (OXYCONTIN) PO SCH (08:15)
[2017-10-19] MEDS: LIDODERM (LIDOCAINE) PATCH 5% TD SCH (08:17)
[2017-10-19] MEDS: INSULIN ASPART 100 UNITS/ML 3 ML PEN SC SCH (08:21)
[2017-10-19] MEDS: HEPARIN SOD 5000 UNIT/0.5 ML CARP SQ SCH (08:22)
[2017-10-19] MEDS ORDERED: FUROSEMIDE 40 MG TAB PO SCH (09:00)
--- NOTE | 2017-10-19 09:45 | Pharmacy Progress Note ---
Pharmacy Glycemic Short Note 2 Date of Service Oct 19, 2017. OUTPATIENT ANTIDIABETIC REGIMEN: * Novolog 70/30 - 25 units qAM and 10 units qPM ... Levemir 20 units in the evening ASSESSMENT: * Mr Enciso is an 87 y/o M with a PMH of CKD stage 3, CHF, COPD, CAD, and well- controlled type 2 diabetes who presents with pneumonia. He was initially on 3 days of high dose IV steroids now transitioned to prednisone 30 mg. The patient has received over 100 units of insulin the past three days. Yesterday's blood sugars were [phone]. Fasting this morning is 94 mg/dL. Patient received 119 units yesterday with 60 units of basal (20 of Levemir and 40 of NPH). * For Levemir, continue home dose of 20 units. Fasting is trending downwards but this may be due to the 40 units of Levemir on 10/17/17. Monitor closely. Since he is on PO prednisone, give NPH 0.3 units/kg or 32 units with prednisone. It appeared that the patient still had rising blood sugars yesterday so moved NPH to lunchtime to prolong effects. Novolog is slightly loosened compared to yesterday monitor. Overnight checks no longer needed as should see decrease in blood sugar from HS to AM. PLAN FOR INPATIENT GLYCEMIC CONTROL: * Basal insulin * Lantus 20 units SQ BID * Bolus insulin * NovoLog per scale ACHS or Q6hrs while NPO * Goal Range: Low 110 mg/dL - High 140 mg/dL * Correction Factor: 20 mg/dL/unit * Nutritional / Prandial insulin per carb ratio of 1 unit per 6 grams CHO consumed PLAN FOR DISCHARGE: * if patient is not having hypoglycemia reasonable to continue current regimen even though it is odd
[2017-10-19 10:12] VITALS: BP 137/76; PULSE 70; TEMP 36.8; O2SAT 97
[2017-10-19] MEDS ORDERED: INSULIN HUMAN NPH SC SCH ×2 (12:00)
--- NOTE | 2017-10-19 12:56 | Cardiology Follow-Up ---
Cardiology Follow-Up Date of Service Oct 19, 2017. Cardiology Follow-Up SUBJECTIVE: 87-year-old man with chronic combined systolic-diastolic heart failure, multivessel CAD (status post LAD stents), and paroxysmal atrial flutter was admitted 10/15/2017 with weight gain, edema, and atypical chest pain. His chest pain evaluation was unremarkable and he diuresed well, he had no complaints at the time of my visit and was prepared to go home. He is leaving with a Ball catheter and on oxygen, both of which he has chronically. PHYSICAL EXAMINATION: No distress. Vitals: BP 137/76, pulse 70 regular, respirations 20 nonlabored. Skin: No unusual lesions. Occasional ecchymoses. HEENT: Unremarkable. Neck: Jugular venous pulse at the clavicle at 90, no carotid bruits. Lungs: Mildly decreased breath sounds but clear. No wheezes or crackles. Cardiac: Regular rhythm with normal S1 and S2. No obvious murmur or gallop. Abdomen: Benign. Extremities: Trace pretibial edema. Intact peripheral pulses. Neurologic: Normal affect, nonfocal DATA: Normal electrolytes, BUN 34/creatinine 1.44 (31/1.52 yesterday). IMPRESSION: 1. Acute on chronic combined systolic/diastolic CHF, compensated. 2. Multivessel CAD, status post LAD stents, no evidence of ongoing myocardial ischemia. 3. Paroxysmal atrial flutter, remains sinus rhythm. Not anticoagulated due to prior GI bleeding. DISCUSSION: Patient is doing well, appears euvolemic, has stable renal function, and is ready to be discharged. As noted, his outpatient diuretic dose will be increased from prior dosing. Management discussed with Dr. Coyne. No additional recommendations.
--- NOTE | 2017-10-19 13:16 | Discharge Summary ---
Discharge Summary Date of Service Oct 19, 2017. Discharge Summary Admission Date: Oct 15, 2017 at 19:18 Discharge Date: Oct 19, 2017 Discharge Disposition: longterm facility Principal Diagnosis: Acute on chronic diastolic heart failure Problems/Secondary Diagnoses: COPD exacerbation Dyspnea Chronic hypoxic respiratory failure CKD stage III DM, insulin dependent Immunizations: Have You Had Influenza Vaccine: Yes Influenza Vaccine Date: Jun 08, 2013 History of Tetanus Vaccine?: Unknown History of Pneumococcal: Yes History of Hepatitis B Vaccine: Unknown Procedures: none Consultations: Cardiology Medication Reconciliation New Medications: Levofloxacin (Levaquin) 750 Mg Tab 750 MG PO DAILY for 1 Day, #1 TAB Prednisone (Prednisone) 20 Mg Tab 1 TAB PO DAILY for 2 Days, #2 TAB Furosemide (Furosemide) 40 Mg Tab 40 MG PO BID17, #60 TAB 3 Refills Continued Medications: Acetaminophen (Tylenol) 500 Mg Tab 1000 MG PO Q12 TAKE AT 0800 & 2000 MAX APAP/24HRS = 3GMS Aspirin (Aspirin Chewable) 81 Mg Chew 81 MG PO QAM Atenolol (Tenormin) 25 Mg Tab 12.5 MG PO QAM Bisacodyl (Bisacodyl) 5 Mg Tab 5 MG PO BID Cyanocobalamin (B-12) 1,000 Mcg Tab 1000 MCG PO QAM Docusate Sodium (Colace) 100 Mg Cap 100 MG PO BID Duloxetine HCl (Cymbalta) 30 Mg Cap 30 MG PO DAILY Dutasteride (Dutasteride) 0.5 Mg Cap 0.5 MG PO DAILY Famotidine (Famotidine) 20 Mg Tab 20 MG PO HS Fiber Laxative (Fiber Laxative) Ea 1 TAB PO DAILY Fludrocortisone Acetate (Florinef) 0.1 Mg Tab 0.1 MG PO BID Fluticasone Prop/Salmeterol (Advair Diskus 250/50 60 Dose) 1 Ea Aerp 1 PUFF INH BID Fluticasone Propionate (Fluticasone Propionate) 120 Sprays/6000 Mcg Inha 2 SPRAYS HEVER QAM Gabapentin (Neurontin) 600 Mg Tab 600 MG PO TID Guaifenesin Ext Rel (Mucinex Ext Rel) 600 Mg Tabcr 1200 MG PO Q12 Hydrocortisone (Cortef) 20 Mg Tab 20 MG PO BID, TAB Insulin Aspart 70/30 (Novolog Mix 70/30) Susp 10 UNITS SQ QPM Insulin Aspart Protamine & Asp (Novolog Mix 70/30) 1 Inj Inj 25 UNITS SQ QAM Insulin Detemir (Levemir) 100 Units/Ml Inj 20 UNITS SQ PM Levalbuterol (Levalbuterol HCl) 0.63 Mg/3 Ml Nebu 1 VIAL NEB BID Lidocaine (Lidocaine) 1 Patch Tdsy 1 PATCH TOP ONAMOFFPM Magnesium Oxide (Mag-Ox) 400 Mg Tab 400 MG PO BID Methenamine Hippurate (Methenamine Hippurate) 1 Gm Tab 1 GM PO HS Metolazone (Zaroxolyn) 2.5 Mg Tab 2.5 MG PO DAILY PRN for WEIGHT GAIN WEIGHT GAIN > 3POUNDS IN 24 HRS OR 5 POUNDS IN 7 DAYS. Multiple Vitamins W/ Minerals (Therems M) 1 Tab Tab 1 TAB PO QAM Nitroglycerin (Nitrostat) 0.4 Mg Tab 0.4 MG UT PRN NEEDED FOR CHEST PAIN : ONE TABLET UNDER THE TONGUE EVERY 5 MINUTES UP TO 3 DOSES. Oxycodone Hcl (Oxycontin) 15 Mg Tab 15 MG PO Q12, TAB Polyethylene Glycol 3350 (Miralax) 1 Pow Pow 17 GM PO BID, GM Polyethylene Glycol-Propylene (Systane Ultra) 1 Idania Idania 1 DROPS OPB BID Potassium Chloride (K-Tab) 20 Meq Tab 40 MEQ PO BID @ 1200 AND 2000 Simethicone (Cvs Gas Relief) 80 Mg Chw 1 TAB PO QID PRN for Indigestion Tamsulosin Hcl (Flomax) 0.4 Mg Cap 0.4 MG PO HS Trolamine Salicylate (Aspercreme) 10 % Lot 0 TOP BID PRN for ARTHRITIS [Spiriva 18 Mcg] () 1 PUFF INH DAILY [Xopenex Neb] () 1 PUFF NEB Q4 PRN for Discontinued Medications: Furosemide (Lasix) 40 Mg Tab 40 MG PO DAILY Discharge Exam Patient feeling quite well, sitting up in chair reading. No distress. Still diuresing well on lasix 40mg PO BID, this is increased dose. He would like to [facility] to [facility], eating well, moving bowels, has chronic gomez. No fever/chills, minimal cough. Review of Systems: Constitutional: + weakness, + fatigue, No fever, No chills, No sweats, No weight loss, No problem reported Eyes: No worsening of vision, No eye pain, No redness, No discharge, No diplopia, No problem reported ENT: No hearing loss, No unusual epistaxis, No nasal symptoms, No sore throat, No tinnitus, No dental problems, No trouble swallowing, No problem reported Respiratory: + dyspnea on exertion, No cough, No sputum, No wheezing, No shortness of breath, No dyspnea at rest, No hemoptysis, No problem reported Cardiovascular: No chest pain, No orthopnea, No PND, No edema, No claudication, No palpitations, No problem reported Abdomen: No pain, No nausea, No vomiting, No diarrhea, No constipation, No GI bleeding, No problem reported Musculoskeletal: No joint pain, No muscle pain, No swelling, No calf pain, No problem reported Genitourinary - Male: + problem reported (gomez) Neurologic: + weakness, + balance problems, No memory loss, No paralysis, No numbness/tingling, No vertigo Psychiatric: No depression symptoms, No anhedonism, No anxiety, No insomnia , No substance abuse, No problem reported Endocrine: No fatigue, No excessive thirst, No excessive urination, No problem reported Hematologic / Lymphatic: No abnormal bleeding/bruising, No clotting problems , No swollen lymph nodes, No night sweats, No problem reported Integumentary: No rash, No itch, No new/changing skin lesions, No color change, No bleeding, No problem reported Physical Exam: General Appearance: WD/WN, no apparent distress Eyes: normal inspection, EOMI, sclerae normal ENT: normal ENT inspection, hearing grossly normal, pharynx normal Neck: supple, no adenopathy, no JVD, trachea midline Respiratory/Chest: chest non-tender, lungs clear, normal breath sounds, no respiratory distress, no accessory muscle use Cardiovascular: regular rate, rhythm, no edema, no gallop, no JVD, no murmur , normal peripheral pulses Abdomen / GI: normal bowel sounds, non tender, soft, no organomegaly Extremities: normal inspection, no calf tenderness, normal capillary refill , no pedal edema, normal range of motion, pelvis stable 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: 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 II-XII nml as tested, alert, normal mood/affect , normal reflexes, oriented x 3, + abnormal gait, + motor weakness Skin: normal color, warm/dry, no rash Hospital Course - Acute on chronic diastolic heart failure: echo with EF of 55% on 10/16 diuresed well with Lasix 40mg IV BID follow weight, I/O's, fluid restrict - 5700cc, weight down cardiology recommends d/c on 40mg PO BID continue to weigh daily at the [facility], if weight goes up by three pounds can give Zaroxolyn prior to morning Lasix - COPD exacerbation: Solu Medrol, Levaquin and nebulizers initially no evidence of pneumonia, CXR similar in appearance to two months ago no fever, normal WBC Prednisone 40mg daily and then 30mg today, 20mg for two days and stop, total course less than 7 days Levaquin for 5 days, today is day 4, last dose tomorrow - Chronic hypoxic respiratory failure: stable on 2L - Chronic indwelling catheter - CKD stage III: Cr is stable at 1.44, continue to monitor closely with Lasix use - DM: sugars stable, continue home regimen Weakness and deconditioning: evaluated by therapy, recommend PT/OT at [facility] Total Time Spent: Greater than 30 minutes This includes examination of the patient, discharge planning, medication reconciliation, and communication with other providers. Discharge Instructions Please refer to the electronic Patient Visit Report (Discharge Instructions) for additional information. Follow-Up Dr Franco in one week Additional Copies To Milka at [facility]
[2017-10-19] MEDS ORDERED: INSULIN DETEMIR FLEXPEN/FLEX TOUCH 100 UNITS/ML 3ML SC SCH (21:00)
== END 2017-10-19 10:50 | DRG 291 ==
LOC: EDBD 16:07 → C.EDB 16:08 → C.2E 19:18 → EDBEDREQ 19:21 → ENRESERV 19:36 → CANRESERV 10-17 09:56 → ENRESERV 10-17 10:23 → C.MS2W 10-17 11:31
PROVIDERS: ADMIT Hospitalist; ATTEND Internal Medicine
DX: I13.0 Hypertensive heart and chronic kidney disease with heart failure and stage 1 through stage 4 chronic kidney disease, or unspecified chronic kidney disease (principal); I50.33 Acute on chronic diastolic (congestive) heart failure; J96.11 Chronic respiratory failure with hypoxia; I48.92 Unspecified atrial flutter; E27.40 Unspecified adrenocortical insufficiency; J44.9 Chronic obstructive pulmonary disease, unspecified; R07.89 Other chest pain; R53.1 Weakness; R53.81 Other malaise; E11.22 Type 2 diabetes mellitus with diabetic chronic kidney disease; E11.40 Type 2 diabetes mellitus with diabetic neuropathy, unspecified; N18.3 Chronic kidney disease, stage 3 (moderate); I42.9 Cardiomyopathy, unspecified; I48.0 Paroxysmal atrial fibrillation; I25.10 Atherosclerotic heart disease of native coronary artery without angina pectoris; G89.29 Other chronic pain; N40.1 Benign prostatic hyperplasia with lower urinary tract symptoms; F32.9 Major depressive disorder, single episode, unspecified; I25.2 Old myocardial infarction; Z66 Do not resuscitate; Z99.81 Dependence on supplemental oxygen; Z96.0 Presence of urogenital implants; Z95.5 Presence of coronary angioplasty implant and graft; Z86.718 Personal history of other venous thrombosis and embolism; Z87.891 Personal history of nicotine dependence; Z79.4 Long term (current) use of insulin; Z79.51 Long term (current) use of inhaled steroids; Z79.52 Long term (current) use of systemic steroids; Z79.82 Long term (current) use of aspirin; Z79.891 Long term (current) use of opiate analgesic; Z79.899 Other long term (current) drug therapy

== ENCOUNTER → 2017-10-25 | Outpatient (CLI) | payer OTHER ==
[~2017-10-25] MED LIST changes: +ASPCH81X PO; +CYM/30 PO; +DUTA1CAP3 PO; +FAMO1TAB47 PO; +FIBER PO; +GABA600T PO; +HYDR20TA PO; +LSX40 PO; +METH-1305 PO; +MULTTAB63 PO; +POLY335019 PO; -POTA20TA16 PO; +SPIRIVA 18 MCG INH; +TAMS0.4C38 PO; +XOPENEX NEB NEB; -XPNINS INH
[2017-10-25 09:54] LABS: BLOOD UREA NITROGEN 21 mg/dl (7-18); CALCIUM 8.2 mg/dl (8.5-10.1); CARBON DIOXIDE 31 mmol/L (21-32); CREATININE 1.58 mg/dl (0.60-1.40); GLUCOSE 129 mg/dl (70-99); POTASSIUM 4.1 mmol/L (3.5-5.1); SODIUM 144 mmol/L (136-145)
== END | disposition home or self-care (01) ==
LOC: C.LABVPSUA 09:09
PROVIDERS: ATTEND Internal Medicine Critical Care Medicine
DX: I50.9 Heart failure, unspecified (principal)

== ENCOUNTER → 2017-11-05 | Outpatient (CLI) | payer OTHER ==
[2017-11-05 09:11] LABS: BLOOD UREA NITROGEN 24 mg/dl (7-18); CALCIUM 8.5 mg/dl (8.5-10.1); CARBON DIOXIDE 34 mmol/L (21-32); CREATININE 1.69 mg/dl (0.60-1.40); GLUCOSE 108 mg/dl (70-99); POTASSIUM 3.2 mmol/L (3.5-5.1); SODIUM 140 mmol/L (136-145)
== END | disposition home or self-care (01) ==
LOC: C.LABVPSUA 08:50
PROVIDERS: ATTEND Internal Medicine Critical Care Medicine
DX: E11.22 Type 2 diabetes mellitus with diabetic chronic kidney disease (principal); N18.3 Chronic kidney disease, stage 3 (moderate)

== ENCOUNTER 2017-11-09 20:28 | Inpatient (IN) | payer OTHER ==
[~2017-11-09] VITALS: Ht 185.4 cm; Wt 99.1 kg
[2017-11-09] MEDS ORDERED: METHYLPREDNISOLONE 125 MG VIAL IV STA (20:47)
[2017-11-09] MEDS ORDERED: FUROSEMIDE INJ 20 MG in SYRINGE 0 ML IV ONE (21:00)
[2017-11-09] MEDS ORDERED: ALBUT/IPRATROP 3MG/0.5MG NEB 3 ML VIAL INH ONE (21:00)
[2017-11-09] MEDS ORDERED: FUROSEMIDE 40 MG/4 ML VIAL ONE (21:09)
[2017-11-09 21:12] LABS: HEMATOCRIT 42.4 % (42-52); HEMOGLOBIN 11.9 g/dL (14.0-18.0); MEAN CORPUSCULAR HGB CONC 28.1 g/dl (32-36); MEAN PLATELET VOLUME 10.1 fL (7.4-10.4); PLATELET COUNT 217 K/uL (130-400); RED CELL DISTRIBUTION WIDTH CV 20.5 % (11.5-14.5); RED CELL DISTRIBUTION WIDTH SD 60.8 fL (36.4-46.3); WHITE BLOOD COUNT 8.05 K/uL (4.8-10.8)
[2017-11-09 21:15] VITALS: PULSE 108; O2SAT 97
[2017-11-09 21:16] VITALS: PULSE 108; O2SAT 97
--- NOTE | 2017-11-09 21:19 | DIAGNOSTIC IMAGING REPORT ---
CHEST ONE VIEW PORTABLE CLINICAL HISTORY: eval for pna dyspnea COMPARISON STUDY: 10/15/2017 FINDINGS: Improved aeration left hemithorax. Interval parenchymal infiltrate right base. Upper right lung is clear. Diaphragms are smooth. IMPRESSION: Infiltrate right base The above report was generated using voice recognition software. It may contain grammatical, syntax or spelling errors. Electronically signed by: Jaun Kim M.D. 11/09/2017 9:17 PM Dictated Date/Time: 11/09/2017 9:17 PM
[2017-11-09 21:23] LABS: INR 0.9 (0.9-1.1); PTT PATIENT 21.3 SECONDS (21.0-31.0)
[2017-11-09 21:29] LABS: CALCIUM 9.3 mg/dl (8.5-10.1); CREATININE 1.73 mg/dl (0.60-1.40); POTASSIUM 4.6 mmol/L (3.5-5.1)
[2017-11-09] MEDS ORDERED: PIPERACILLIN/TAZOBACTAM 4.5 GM/100ML D5W IV STA (21:36)
[2017-11-09] MEDS ORDERED: ACETAMINOPHEN 325 MG TAB PO STA (21:36)
[2017-11-09 22:23] LABS: BASO % 0.1 %; BASO ABS # 0.01 K/uL (0-0.2); EOS % 2.1 %; EOS ABS # 0.17 K/uL (0-0.5); IG# 0.04 K/uL (0.00-0.02); LYMPH ABS # 1.05 K/uL (1.2-3.4); MONO % 3.6 %; MONO ABS # 0.29 K/uL (0.11-0.59); NEUT % 80.7 %; NEUT ABS # 6.49 K/uL (1.4-6.5)
[2017-11-09] MEDS ORDERED: VANCOMYCIN CONSULT ACTIVE PRN (22:45)
--- NOTE | 2017-11-09 22:57 | History and Physical ---
History & Physical Date & Time of Service: Nov 09, 2017 at 22:45 Chief Complaint: Sob/ [facility] Primary Care Physician: Wilver Franco M.D. History of Present Illness Source: family, hospital records, other 86 y/o M w/Hx COPD, combined CHF, CAD, CKD 3-4, DM, chronic aspiration with recurrent PNM, adrenal insufficiency, chronic Ball w/recurrent UTIs, history of DVT. Resides in a nursing facility. Admitted multiple times this yr for pneumonia due to aspiration, CHF exacerbation, UTIs, AMS and hypoglycemic episodes. Likely suffered an additional aspiration episode this evening as his reports that he was in his normal state of health prior to dinner. He became acutely hypoxic and febrile and was sent to the ER therefore. An initial CXR describes a new RLL infiltrate. The pt is requiring BiPAP to maintain an adequate saturation at the time of admission. His mentation is poor and he is unable to contribute to the HPI. His is present at bedside to provide the preceding information. The pt was last admitted 10/15 for CHF and COPD exacerbation and was DCd 10/19. 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 II diastolic dysfunction on echo 16) DM II Family History FH: heart disease Hypertension Social History Smoking Status: Former Smoker Drug Use: none Marital Status: Housing status: [facility] Occupational Status: retired Immunizations History of Influenza Vaccine: Yes Influenza Vaccine Date: Jun 08, 2013 History of Tetanus Vaccine?: Unknown History of Pneumococcal: Yes History of Hepatitis B Vaccine: Unknown Allergies Coded Allergies: No Known Allergies (Unverified , 08/28/17) Home Medications Scheduled Acetaminophen (Tylenol), 1,000 MG PO Q12 Aspirin (Aspirin Chewable), 81 MG PO QAM Atenolol (Tenormin), 12.5 MG PO QAM Bisacodyl (Bisacodyl), 5 MG PO BID Cyanocobalamin (B-12), 1,000 MCG PO QAM Docusate Sodium (Colace), 100 MG PO BID Duloxetine HCl (Cymbalta), 30 MG PO DAILY Dutasteride (Dutasteride), 0.5 MG PO DAILY Famotidine (Famotidine), 20 MG PO HS Fiber Laxative (Fiber Laxative), 1 TAB PO DAILY Fludrocortisone Acetate (Florinef), 0.1 MG PO BID Fluticasone Prop/Salmeterol (Advair Diskus 250/50 60 Dose), 1 PUFF INH BID Fluticasone Propionate (Fluticasone Propionate), 2 SPRAYS HEVER QAM Furosemide (Furosemide), 40 MG PO BID17 Gabapentin (Neurontin), 600 MG PO TID Guaifenesin Ext Rel (Mucinex Ext Rel), 1,200 MG PO Q12 Hydrocortisone (Cortef), 20 MG PO BID Insulin Aspart 70/30 (Novolog Mix 70/30), 10 UNITS SQ QPM Insulin Aspart Protamine & Asp (Novolog Mix 70/30), 25 UNITS SQ QAM Insulin Detemir (Levemir), 20 UNITS SQ PM Levalbuterol (Levalbuterol HCl), 1 VIAL NEB BID Lidocaine (Lidocaine), 1 PATCH TOP ONAMOFFPM Magnesium Oxide (Mag-Ox), 400 MG PO BID Methenamine Hippurate (Methenamine Hippurate), 1 GM PO HS Multiple Vitamins W/ Minerals (Therems M), 1 TAB PO QAM Nitroglycerin (Nitrostat), 0.4 MG UT PRN Oxycodone Hcl (Oxycontin), 15 MG PO Q12 Polyethylene Glycol 3350 (Miralax), 17 GM PO BID Polyethylene Glycol-Propylene (Systane Ultra), 1 DROPS OPB BID Potassium Chloride (K-Tab), 40 MEQ PO BID Tamsulosin Hcl (Flomax), 0.4 MG PO HS [Spiriva 18 Mcg], 1 PUFF INH DAILY Scheduled PRN Metolazone (Zaroxolyn), 2.5 MG PO DAILY PRN for WEIGHT GAIN Simethicone (Cvs Gas Relief), 1 TAB PO QID PRN for Indigestion Trolamine Salicylate (Aspercreme), 0 TOP BID PRN for ARTHRITIS [Xopenex Neb], 1 PUFF NEB Q4 PRN for Review of Systems Cannot obtain information from pt - above HPI provided by spouse Physical Exam Vital Signs Date Time Temp Pulse Resp B/P (MAP) Pulse Ox O2 Delivery O2 Flow Rate FiO2 11/09/17 22:14 102 21 151/84 100 11/09/17 21:16 108 97 50 11/09/17 21:15 108 22 97 BiPAP/CPAP 50 11/09/17 21:14 108 11/09/17 21:02 98 BiPAP 11/09/17 20:37 Nasal Cannula 92 11/09/17 20:37 37.2 111 30 189/112 92 Nasal Cannula 2.0 11/09/17 20:37 92 Nasal Cannula 2.0 General Appearance: + pertinent finding (Confused, restless, obese, elderly male - appears uncomfortable - oxygen sat is miantained with BiPAP) Head: normocephalic Eyes: normal inspection Neck: supple, + pertinent finding (JVD exam limited by habitus) Respiratory/Chest: chest non-tender, + pertinent finding (Crackles and reduced air at R base - no audible crackles) Cardiovascular: regular rate, rhythm, no edema, no gallop Abdomen/GI: normal bowel sounds, non tender, soft Back: normal inspection, no CVA tenderness Extremities/Musculoskelatal: no calf tenderness, + pedal edema (minimal) Neurologic/Psych: + pertinent finding (Moving all extrems - can respond "yes" or "no" - cannot elaborate ) Diagnostics Laboratory Results Results Past 24 Hours Test 11/09/17 20:50 11/09/17 20:59 11/09/17 21:00 11/09/17 21:30 Range/Units White Blood Count 8.05 4.8-10.8 K/uL Red Blood Count 5.17 4.7-6.1 M/uL Hemoglobin 11.9 14.0-18.0 g/dL Hematocrit 42.4 42-52 % Mean Corpuscular Volume 82.0 80-100 fL Mean Corpuscular Hemoglobin 23.0 25-34 pg Mean Corpuscular Hemoglobin Concent 28.1 32-36 g/dl Platelet Count 217 130-400 K/uL Mean Platelet Volume 10.1 7.4-10.4 fL Neutrophils (%) (Auto) 80.7 % Lymphocytes (%) (Auto) 13.0 % Monocytes (%) (Auto) 3.6 % Eosinophils (%) (Auto) 2.1 % Basophils (%) (Auto) 0.1 % Neutrophils # (Auto) 6.49 1.4-6.5 K/uL Lymphocytes # (Auto) 1.05 1.2-3.4 K/uL Monocytes # (Auto) 0.29 0.11-0.59 K/uL Eosinophils # (Auto) 0.17 0-0.5 K/uL Basophils # (Auto) 0.01 0-0.2 K/uL RDW Standard Deviation 60.8 36.4-46.3 fL RDW Coefficient of Variation 20.5 11.5-14.5 % Immature Granulocyte % (Auto) 0.5 % Immature Granulocyte # (Auto) 0.04 0.00-0.02 K/uL Anisocytosis PRESENT Prothrombin Time 9.6 9.0-12.0 SECONDS Prothromb Time International Ratio 0.9 0.9-1.1 Activated Partial Thromboplast Time 21.3 21.0-31.0 SECONDS Partial Thromboplastin Ratio 0.8 Sodium Level 137 136-145 mmol/L Potassium Level 4.6 3.5-5.1 mmol/L Chloride Level 99 98-107 mmol/L Carbon Dioxide Level 32 21-32 mmol/L Anion Gap 6.0 3-11 mmol/L Blood Urea Nitrogen 22 7-18 mg/dl Creatinine 1.73 0.60-1.40 mg/dl Est Creatinine Clear Calc Drug Dose 38.7 ml/min Estimated GFR () 40.3 Estimated GFR (Non- 34.7 BUN/Creatinine Ratio 12.9 10-20 Random Glucose 141 70-99 mg/dl Calcium Level 9.3 8.5-10.1 mg/dl Chemistry Specimen Hemolysis Bedside Lactic Acid Venous 4.07 0.90-1.70 mmol/L Bedside Troponin I < 0.030 0-0.045 ng/ml Urine Color YELLOW Urine Appearance CLEAR CLEAR Urine pH 6.0 4.5-7.5 Urine Specific [place] 1.010 1.000-1.030 Urine Protein NEG NEG Urine Glucose (UA) NEG NEG Urine Ketones NEG NEG Urine Occult Blood NEG NEG Urine Nitrite NEG NEG Urine Bilirubin NEG NEG Urine Urobilinogen NEG NEG Urine Leukocyte Esterase NEG NEG Microbiology Results 11/09/17 Blood Culture, Received Pending 11/09/17 Blood Culture, Received Pending Diagnostic Radiology CXR: RLL infiltrate Impression Assessment and Plan 86 y/o M w/Hx COPD, combined CHF, CAD, CKD 3-4, DM, chronic aspiration with recurrent PNM, adrenal insufficiency, chronic Ball w/recurrent UTIs, history of DVT. Resides in a nursing facility. Admitted multiple times this yr for pneumonia due to aspiration and CHF exacerbation. Likely suffered an additional aspiration episode this evening as his reports that he was in his normal state of health prior to dinner. He became acutely hypoxic and febrile and was sent to the ER therefore. An initial CXR describes a new RLL infiltrate. The pt is requiring BiPAP to maintain an adequate saturation at the time of admission. 1) Aspiration pneumonia - Hypoxia - currently requiring BIPAP - He is hypotensive and may be clinically dry although we cannot r/o evolving sepsis as lactic is high as well. He is receiving broad spectrum coverage and IVF. We will monitor in the ICU as he is prone to volume overload. Stress dose steroids administered. Repeat lactic is pending. 2) CHF - Clinically hypovolemic at present - daily Lasix and Metolazone held pending volume reassessment as BP is low and fluid resuscitation is being provided currently. 3) COPD - there is no evidence of acute exacerbation, however, due to PNM and hypoxia, he is essentially receiving compatible treatment. Nebs, Abx, BiPAP provided - IV steroids due to hypotension and Hx of adrenal insufficiency. 4) DM - placed on SS 5) CKD III - creat is slightly above baseline - IVF is currently provided and diuretics are held - recheck BMP AM 6) CAD - cont ASA, statin, B opal is BP improved, PRN NTG. No current evidence of ACS. 7) Anemia - Hb is stable - note that he had a GI bleed of undetermined source and was anticoagulated with Coumadin before that time. Will monitor for bleeding as he is placed on Heparin prophylaxis. 8) Adrenal insufficiency - placed on stress dose steroids cont Fludrocortisone 9) Reg the pt's code status - confirmed DNR/DNI with , although she has specified that pressors and defibrillation without compressions is OK. DNR (see item 9) - Heparin prophylaxis Total time for this admit including review of extensive records, extensive medication list, imaging - discussion with ER attending, pt's - including critical care time - 50 min Resuscitation Status VTE Prophylaxis Will order VTE Prophylaxis: Yes
[2017-11-09] MEDS ORDERED: NITROGLYCERIN 0.4 MG SL PER TAB CHARGE SL PRN (23:30)
[2017-11-09] MEDS ORDERED: LORAZEPAM 2 MG/ML 1 ML VIAL IV PRN (23:30)
[2017-11-09] MEDS ORDERED: SODIUM CHLORIDE 0.9% 1000ML 1,000 ML IV ONE (23:30)
[2017-11-09] MEDS ORDERED: ICU PROTOCOL FOR HYPERGLYCEMIA PRN (23:30)
[2017-11-10] VITALS (38 sets, daily range): BP systolic 78–109; BP diastolic 47–74; PULSE 73–95; TEMP 36.4–38.4; O2SAT 93–100; BMI 29.7
[2017-11-10] MEDS ORDERED: SODIUM CHLORIDE 0.9% 1000ML 1,000 ML IV SCH (00:30)
--- NOTE | 2017-11-10 00:57 | EMERGENCY ROOM VISIT NOTE ---
History Report prepared by Jordynibjustyna: Charles Marmolejo Under the Supervision of: Dr. Stanford Ta M.D. First contact with patient: 20:39 Chief Complaint: SHORTNESS OF BREATH Stated Complaint: SOB/ [facility] Triage Summary: patient complains of SOB since 1829 today. History of COPD, emphysema, CHF. On 2L NC at all times. states he was feeling fine today until 1829 History of Present Illness The patient is a 87 year old male who presents to the Emergency Room with complaints of constant shortness of breath that began at 1829. He rates his discomfort as a 5/10 in severity. The patient is accompanied by his who states that the patient suddenly developed shortness of breath at 183. She states that the patient used an albuterol treatment at home without any relief of symptoms. The patient reports he has also been experiencing chest tightness but is unsure of the onset. He denies sharp chest pains, a cough, and gaining weight. The HPI is limited secondary to the patient's respiratory distress. Source of History: patient Onset: 1829 Position: other (global) Symptom Intensity: 5/10 Timing: constant Modifying Factors (Relieving): other (albuterol) Associated Symptoms: + chest pain, No cough Review of Systems The ROS is limited secondary to the patient's respiratory distress. Past Medical & Surgical Medical Problems: (1) Acute exacerbation of CHF (congestive heart failure) (2) Acute on chronic respiratory failure with hypoxia and hypercapnia (3) Acute renal failure (4) Altered mental status (5) Anemia (6) Aspiration pneumonia (7) Aspiration pneumonia (8) Asthma (9) Bilateral pneumonia (10) chronic kidney disease (11) Chronic pain (12) COPD (chronic obstructive pulmonary disease) (13) Coronary artery disease (14) CVA (cerebrovascular accident) (15) Essential hypertension (16) HTN (hypertension) (17) Hx of diabetes mellitus (18) Hypercholesterolemia (19) Hyperparathyroidism (20) Hypotension (21) Influenza A (22) Lower GI bleed (23) Lung nodules (24) FL (myocardial infarction) (25) Peripheral vascular disease (26) Staphylococcus aureus pneumonia (27) TIA (transient ischemic attack) (28) Urinary retention (29) Urosepsis Surgical Problems: (1) H/O heart artery stent Family History FH: heart disease Hypertension Social History Smoking Status: Former Smoker Drug Use: none Marital Status: Housing Status: assisted living Occupation Status: retired Current/Historical Medications Scheduled Acetaminophen (Tylenol), 1,000 MG PO Q12 Aspirin (Aspirin Chewable), 81 MG PO QAM Atenolol (Tenormin), 12.5 MG PO QAM Bisacodyl (Bisacodyl), 5 MG PO BID Cyanocobalamin (B-12), 1,000 MCG PO QAM Docusate Sodium (Colace), 100 MG PO BID Duloxetine HCl (Cymbalta), 30 MG PO DAILY Dutasteride (Dutasteride), 0.5 MG PO DAILY Famotidine (Famotidine), 20 MG PO HS Fiber Laxative (Fiber Laxative), 1 TAB PO DAILY Fludrocortisone Acetate (Florinef), 0.1 MG PO BID Fluticasone Prop/Salmeterol (Advair Diskus 250/50 60 Dose), 1 PUFF INH BID Fluticasone Propionate (Fluticasone Propionate), 2 SPRAYS HEVER QAM Furosemide (Furosemide), 40 MG PO BID17 Gabapentin (Neurontin), 600 MG PO TID Guaifenesin Ext Rel (Mucinex Ext Rel), 1,200 MG PO Q12 Hydrocortisone (Cortef), 20 MG PO BID Insulin Aspart 70/30 (Novolog Mix 70/30), 10 UNITS SQ QPM Insulin Aspart Protamine & Asp (Novolog Mix 70/30), 25 UNITS SQ QAM Insulin Detemir (Levemir), 20 UNITS SQ PM Levalbuterol (Levalbuterol HCl), 1 VIAL NEB BID Lidocaine (Lidocaine), 1 PATCH TOP ONAMOFFPM Magnesium Oxide (Mag-Ox), 400 MG PO BID Methenamine Hippurate (Methenamine Hippurate), 1 GM PO HS Multiple Vitamins W/ Minerals (Therems M), 1 TAB PO QAM Nitroglycerin (Nitrostat), 0.4 MG UT PRN Oxycodone Hcl (Oxycontin), 15 MG PO Q12 Polyethylene Glycol 3350 (Miralax), 17 GM PO BID Polyethylene Glycol-Propylene (Systane Ultra), 1 DROPS OPB BID Potassium Chloride (K-Tab), 40 MEQ PO BID Tamsulosin Hcl (Flomax), 0.4 MG PO HS [Spiriva 18 Mcg], 1 PUFF INH DAILY Scheduled PRN Metolazone (Zaroxolyn), 2.5 MG PO DAILY PRN for WEIGHT GAIN Simethicone (Cvs Gas Relief), 1 TAB PO QID PRN for Indigestion Trolamine Salicylate (Aspercreme), 0 TOP BID PRN for ARTHRITIS [Xopenex Neb], 1 PUFF NEB Q4 PRN for Allergies Coded Allergies: No Known Allergies (Unverified , 08/28/17) Physical Exam Vital Signs Date Time Temp Pulse Resp B/P (MAP) Pulse Ox O2 Delivery O2 Flow Rate FiO2 11/10/17 00:04 94 97 30 11/09/17 23:58 100 20 95 11/09/17 23:34 101 20 110/67 95 Room Air 11/09/17 23:22 102 18 99/62 100 BiPAP 11/09/17 22:45 106 26 106/72 100 BiPAP 11/09/17 22:14 102 21 151/84 100 11/09/17 21:16 108 97 50 11/09/17 21:15 108 22 97 BiPAP/CPAP 50 11/09/17 21:14 108 11/09/17 21:02 98 BiPAP 11/09/17 20:37 Nasal Cannula 92 11/09/17 20:37 37.2 111 30 189/112 92 Nasal Cannula 2.0 11/09/17 20:37 92 Nasal Cannula 2.0 Physical Exam Constitutional: Vital signs reviewed. The patient is in obvious respiratory distress. Eyes: Pupils are equal round reactive to light. Conjunctiva are noninjected. ENT: Pharynx is clear without erythema or exudate. Mucous membranes are moist. Neck supple without meningeal signs. Respiratory: Unable to speak in full sentences. Patient is respiratory distress. Accessory muscle use. Poor breath sounds bilaterally with expiratory wheezing. Cardiovascular: Tachycardic rate and rhythm. No rubs or gallops. GI: Soft, nondistended and nontender. Bowel sounds are present. Musculoskeletal: Bilateral pitting edema. Integumentary: No cyanosis. Neurological: The patient is awake and alert. No focal deficits. Psychiatric: Unable to assess. Medical Decision & Procedures ER Provider Diagnostic Interpretation: X-ray results as stated below per interpretation by me and the radiologist: CHEST ONE VIEW PORTABLE CLINICAL HISTORY: eval for pna dyspnea COMPARISON STUDY: 10/15/2017 FINDINGS: Improved aeration left hemithorax. Interval parenchymal infiltrate right base. Upper right lung is clear. Diaphragms are smooth. IMPRESSION: Infiltrate right base The above report was generated using voice recognition software. It may contain grammatical, syntax or spelling errors. Electronically signed by: Jaun Kim M.D. 11/09/2017 9:17 PM Dictated Date/Time: 11/09/2017 9:17 PM Laboratory Results 11/09/17 20:50 Red Blood Count 5.17, Mean Corpuscular Volume 82.0, Mean Corpuscular Hemoglobin 23.0, Mean Corpuscular Hemoglobin Concent 28.1, Mean Platelet Volume 10.1, Neutrophils (%) (Auto) 80.7, Lymphocytes (%) (Auto) 13.0, Monocytes (%) (Auto) 3.6, Eosinophils (%) (Auto) 2.1, Basophils (%) (Auto) 0.1, Neutrophils # (Auto) 6.49, Lymphocytes # (Auto) 1.05, Monocytes # (Auto) 0.29, Eosinophils # (Auto) 0.17, Basophils # (Auto) 0.01 11/09/17 20:50 Test 11/09/17 20:50 11/09/17 20:59 11/09/17 21:00 11/09/17 21:30 White Blood Count 8.05 K/uL (4.8-10.8) Red Blood Count 5.17 M/uL (4.7-6.1) Hemoglobin 11.9 g/dL (14.0-18.0) Hematocrit 42.4 % (42-52) Mean Corpuscular Volume 82.0 fL (80-100) Mean Corpuscular Hemoglobin 23.0 pg (25-34) Mean Corpuscular Hemoglobin Concent 28.1 g/dl (32-36) Platelet Count 217 K/uL (130-400) Mean Platelet Volume 10.1 fL (7.4-10.4) Neutrophils (%) (Auto) 80.7 % Lymphocytes (%) (Auto) 13.0 % Monocytes (%) (Auto) 3.6 % Eosinophils (%) (Auto) 2.1 % Basophils (%) (Auto) 0.1 % Neutrophils # (Auto) 6.49 K/uL (1.4-6.5) Lymphocytes # (Auto) 1.05 K/uL (1.2-3.4) Monocytes # (Auto) 0.29 K/uL (0.11-0.59) Eosinophils # (Auto) 0.17 K/uL (0-0.5) Basophils # (Auto) 0.01 K/uL (0-0.2) RDW Standard Deviation 60.8 fL (36.4-46.3) RDW Coefficient of Variation 20.5 % (11.5-14.5) Immature Granulocyte % (Auto) 0.5 % Immature Granulocyte # (Auto) 0.04 K/uL (0.00-0.02) Anisocytosis PRESENT Prothrombin Time 9.6 SECONDS (9.0-12.0) Prothromb Time International Ratio 0.9 (0.9-1.1) Activated Partial Thromboplast Time 21.3 SECONDS (21.0-31.0) Partial Thromboplastin Ratio 0.8 Anion Gap 6.0 mmol/L (3-11) Est Creatinine Clear Calc Drug Dose 38.7 ml/min Estimated GFR () 40.3 Estimated GFR (Non- 34.7 BUN/Creatinine Ratio 12.9 (10-20) Calcium Level 9.3 mg/dl (8.5-10.1) Chemistry Specimen Hemolysis Bedside Lactic Acid Venous 4.07 mmol/L (0.90-1.70) Bedside Troponin I < 0.030 ng/ml (0-0.045) Urine Color YELLOW Urine Appearance CLEAR (CLEAR) Urine pH 6.0 (4.5-7.5) Urine Specific [place] 1.010 (1.000-1.030) Urine Protein NEG (NEG) Urine Glucose (UA) NEG (NEG) Urine Ketones NEG (NEG) Urine Occult Blood NEG (NEG) Urine Nitrite NEG (NEG) Urine Bilirubin NEG (NEG) Urine Urobilinogen NEG (NEG) Urine Leukocyte Esterase NEG (NEG) Laboratory results as reviewed by me. Medications Administered Medications (Trade) Dose Ordered Sig/Cole Route Start Time Stop Time Status Last Admin Dose Admin Methylprednisolone Sodium Succinate (Solu-Medrol IV) 125 mg NOW STAT IV 11/09/17 20:47 11/09/17 20:49 DC 11/09/17 20:56 125 MG Albuterol/ Ipratropium (Duoneb) 12 ml ONE ONCE INH 4/28/18 21:00 11/09/17 21:01 DC 11/09/17 21:14 12 ML Furosemide 20 mg/ Syringe 2 ml @ 4 mls/min ONE ONCE IV 11/09/17 21:00 11/09/17 21:01 DC 11/09/17 21:00 4 MLS/MIN Piperacillin Sod/ Tazobactam Sod (Zosyn Iv) 4.5 gm NOW STAT IV 11/09/17 21:36 11/09/17 21:37 DC 11/09/17 22:01 4.5 GM Acetaminophen (Tylenol Tab) 650 mg NOW STAT PO 11/09/17 21:36 11/09/17 21:37 DC 11/09/17 22:21 650 MG ECG Per My Interpretation Indication: SOB/dyspnea Rate (beats per minute): 111 Rhythm: sinus tachycardia Findings: other (significant baseline artifact limiting interpretation, no PVCs , axis is 267) ED Course 2040: The patient was evaluated in room A10. A complete history and physical exam was performed. 2046: Ordered Solu-Medrol 125 mg IV. 2099: Ordered Furosemide 20 mg/Syringe 2 ml @ 4 mls/min IV, Duoneb 12 ml INH. 2108: Ordered Lasix Injection 40 mg IV. 2124: I reevaluated the patient and he is still tight and wheezy on BiPAP. He is still hypertensive. 2135: Ordered Tylenol Tab 650 mg PO, Zosyn 4.5 mg PO. 2139: I discussed the patient's case with Dr. Gross, [facility] Hospitalist. He understands the patient's condition and agrees to accept the patient. The patient will be further evaluated. 2141: I reevaluated the patient and discussed test results. I talked to the nurse about the antibiotics. We are still waiting on cultures to be drawn by lab. I asked the charge nurse to call lab. 2204: Blood cultures obtained. Zosyn infusing. Medical Decision This is an 87-year-old male presents in severe respiratory distress. Differential diagnosis includes pneumonia, sepsis, COPD exacerbation, CHF, pulmonary edema, respiratory failure. I did perform a limited focused review of portions of the patient's old chart on the electronic medical record. The patient was admitted October 19 for pneumonia, acute on chronic diastolic heart failure, and COPD exacerbation. He was discharged on Levaquin, Lasix, and Prednisone. I did evaluate the patient as noted above. I did obtain history from the patient as well as his to the patient's condition. He is unable to speak in full sentences and very short of breath with pursed lip breathing. He has diffuse wheezing on examination with poor air entry bilaterally. IV access was established. The patient was placed on a continuous assembly supervisor. I did order BiPAP for the patient. I did also order Solu-Medrol IV and an hour-long continuous DuoNeb. I did order and personally review the patient's 12-lead EKG and chest x-ray as described above. His chest x-ray demonstrates a right-sided pneumonia. I did order blood cultures and a lactic acid. I did treat the patient with Zosyn IV. The patient was just on Levaquin recently and so I did not treat him with Levaquin. I did order and review the patient's blood work as noted in the electronic medical record. Lactic acid is elevated. His white blood cell count is not elevated. Urinalysis does not show signs of infection. I did reassess the patient several times. He shows some improvement but still has significant wheezing and fair air entry. His does state that he is DNI although not DNR. She clarified that he would like resuscitation but only briefly and nothing heroic. I did discuss the case with the hospitalist and employment case manager. Medication Reconcilliation Current Medication List: was personally reviewed by me Blood Pressure Screening Patient's blood pressure: Elevated blood pressure Blood pressure disposition: Referred to PCP Impression Primary Impression: Sepsis Additional Impressions: Right lower lobe pneumonia Acute respiratory failure COPD exacerbation Critical Care I have personally spent 34 minutes of critical care time in the direct management of this patient. This includes bedside care, interpretation of diagnostic studies, and testing, discussion with consultants, patient, and family members, and other required patient management activities. This 34 minutes is in excess of all separately billable procedures. Scribe Attestation The scribe's documentation has been prepared under my direct and personally reviewed by me in its entirety. I confirm that the note above accurately reflects all work, treatment, procedures, and medical decision making performed by me. Departure Information Dispostion Being Evaluated By Hospitalist Referrals Koberna, Wilver,M.D. (PCP) Patient Instructions My [facility] Problem Qualifiers Primary Impression: Sepsis Sepsis type: sepsis due to unspecified organism Qualified Codes: A41.9 - Sepsis, unspecified organism Additional Impressions: Right lower lobe pneumonia Pneumonia type: due to unspecified organism Qualified Codes: J18.1 - Lobar pneumonia, unspecified organism Acute respiratory failure Respiratory failure complication: unspecified whether with hypoxia or hypercapnia Qualified Codes: J96.00 - Acute respiratory failure, unspecified whether with hypoxia or hypercapnia
[2017-11-10] MEDS ORDERED: VANCOMYCIN IV 2,250 MG in SODIUM CHLORIDE 0.9% 500ML 500 ML IV ONE (02:00)
--- NOTE | 2017-11-10 02:05 | Critical Care Consultation ---
Critical Care Consultation Date of Consultation: Nov 10, 2017. Attending Physician: Joey Gross M.D. Reason for Consultation: "Critical-care" History of Present Illness 87-year-old male presents with his after complaining of acute shortness of breath earlier this evening. History is per the , as the patient is quite tired and not answering many questions. His states that they had dinner this evening at their nursing facility, during which time the patient was easily conversational and not complaining of any acute health concerns. Soon thereafter he was noted to be febrile to around 101 and developed shortness of breath. He was transported to the hospital by ambulance, placed on BiPAP, and noted to have some improvement in his breathing and mentation. On my initial examination in the ED, the patient opens eyes to voice and states his name. Otherwise difficult to understand, but knows that he is in [place]. Unable to obtain further subjective information acutely. Family History FH: heart disease Hypertension Social History Smoking Status: Former Smoker Drug Use: none Marital Status: Housing Status: assisted living Occupation Status: retired Allergies Coded Allergies: No Known Allergies (Unverified , 08/28/17) Home Medications Scheduled Acetaminophen (Tylenol), 1,000 MG PO Q12 Aspirin (Aspirin Chewable), 81 MG PO QAM Atenolol (Tenormin), 12.5 MG PO QAM Bisacodyl (Bisacodyl), 5 MG PO BID Cyanocobalamin (B-12), 1,000 MCG PO QAM Docusate Sodium (Colace), 100 MG PO BID Duloxetine HCl (Cymbalta), 30 MG PO DAILY Dutasteride (Dutasteride), 0.5 MG PO DAILY Famotidine (Famotidine), 20 MG PO HS Fiber Laxative (Fiber Laxative), 1 TAB PO DAILY Fludrocortisone Acetate (Florinef), 0.1 MG PO BID Fluticasone Prop/Salmeterol (Advair Diskus 250/50 60 Dose), 1 PUFF INH BID Fluticasone Propionate (Fluticasone Propionate), 2 SPRAYS HEVER QAM Furosemide (Furosemide), 40 MG PO BID17 Gabapentin (Neurontin), 600 MG PO TID Guaifenesin Ext Rel (Mucinex Ext Rel), 1,200 MG PO Q12 Hydrocortisone (Cortef), 20 MG PO BID Insulin Aspart 70/30 (Novolog Mix 70/30), 10 UNITS SQ QPM Insulin Aspart Protamine & Asp (Novolog Mix 70/30), 25 UNITS SQ QAM Insulin Detemir (Levemir), 20 UNITS SQ PM Levalbuterol (Levalbuterol HCl), 1 VIAL NEB BID Lidocaine (Lidocaine), 1 PATCH TOP ONAMOFFPM Magnesium Oxide (Mag-Ox), 400 MG PO BID Methenamine Hippurate (Methenamine Hippurate), 1 GM PO HS Multiple Vitamins W/ Minerals (Therems M), 1 TAB PO QAM Nitroglycerin (Nitrostat), 0.4 MG UT PRN Oxycodone Hcl (Oxycontin), 15 MG PO Q12 Polyethylene Glycol 3350 (Miralax), 17 GM PO BID Polyethylene Glycol-Propylene (Systane Ultra), 1 DROPS OPB BID Potassium Chloride (K-Tab), 40 MEQ PO BID Tamsulosin Hcl (Flomax), 0.4 MG PO HS [Spiriva 18 Mcg], 1 PUFF INH DAILY Scheduled PRN Metolazone (Zaroxolyn), 2.5 MG PO DAILY PRN for WEIGHT GAIN Simethicone (Cvs Gas Relief), 1 TAB PO QID PRN for Indigestion Trolamine Salicylate (Aspercreme), 0 TOP BID PRN for ARTHRITIS [Xopenex Neb], 1 PUFF NEB Q4 PRN for Current Inpatient Medications Current Inpatient Medications Medications (Trade) Dose Ordered Sig/Cole Route Start Time Stop Time Status Last Admin Dose Admin Vancomycin HCl 2250 mg/Sodium Chloride 545 ml @ 200 mls/hr TODAY@0200 ONCE IV 11/10/17 02:00 11/10/17 04:43 11/10/17 01:57 200 MLS/HR Miscellaneous Information (Consult) 1 ea UD PRN N/A 11/09/17 22:45 12/09/17 22:44 Aspirin (Aspirin Chew) 81 mg QAM PO 11/10/17 09:00 12/10/17 08:59 UNV Atenolol (Tenormin Tab) 12.5 mg QAM PO 11/10/17 09:00 12/10/17 08:59 UNV Bisacodyl (Dulcolax Tab) 5 mg BID PO 11/10/17 09:00 12/10/17 08:59 UNV Docusate Sodium (coLACE CAP) 100 mg BID PO 11/10/17 09:00 12/10/17 08:59 UNV Duloxetine HCl (Cymbalta Cap) 30 mg DAILY PO 11/10/17 09:00 12/10/17 08:59 UNV Famotidine (Pepcid Tab) 20 mg HS PO 11/10/17 21:00 12/10/17 20:59 UNV Fludrocortisone Acetate (Florinef Tab) 0.1 mg BID PO 11/10/17 09:00 12/10/17 08:59 UNV Furosemide (Lasix Tab) 40 mg BID17 PO 11/10/17 09:00 12/10/17 08:59 UNV Guaifenesin (Mucinex Contr Rel Tab) 1,200 mg Q12 PO 11/10/17 09:00 12/10/17 08:59 UNV Magnesium Oxide (Mag-Ox Tab) 400 mg BID PO 11/10/17 09:00 12/10/17 08:59 UNV Oxycodone HCl (Oxycontin Tab) 15 mg Q12 PO 11/10/17 09:00 11/24/17 08:59 UNV Simethicone (Mylicon Chew Tab) 80 mg QID PRN PO 11/09/17 23:00 12/09/17 22:59 UNV Tamsulosin HCl (Flomax Cap) 0.4 mg HS PO 11/10/17 21:00 12/10/17 20:59 UNV Non-Formulary Medication (Cyanocobalamin (B-12)) 1,000 mcg QAM PO 11/10/17 09:00 12/10/17 08:59 UNV Non-Formulary Medication (Dutasteride ) 0.5 mg DAILY PO 11/10/17 09:00 12/10/17 08:59 UNV Non-Formulary Medication (Insulin Detemir (Levemir)) 20 units PM SQ 11/10/17 21:00 12/10/17 20:59 UNV Non-Formulary Medication (Polyethylene Glycol 3350 (Miralax)) 17 gm BID PO 11/10/17 09:00 12/10/17 08:59 UNV Artificial Tears (Artificial Tears) 1 drops BID OPB 11/10/17 09:00 12/10/17 08:59 Hydrocortisone Sodium Succinate 100 mg/Syringe 2 ml @ 4 mls/min Q8H IV 11/09/17 23:15 12/09/17 23:14 UNV Sodium Chloride 1,000 ml @ 50 mls/hr Q20H IV 11/10/17 00:30 11/10/17 19:07 11/10/17 01:58 50 MLS/HR Acetaminophen (Tylenol Tab) 650 mg Q4H PRN PO 11/09/17 23:30 12/09/17 23:29 Lorazepam (Ativan Inj) 1 mg Q6H PRN IV 11/09/17 23:30 12/09/17 23:29 UNV Nitroglycerin (Nitrostat Tab) 0.4 mg UD PRN SL 11/09/17 23:30 12/09/17 23:29 Ondansetron HCl (Zofran Inj) 4 mg Q6H PRN IV 11/09/17 23:30 12/09/17 23:29 Levalbuterol (Xopenex 1.25MG/ 3ML Neb) 1.25 mg Q4H PRN INH 11/09/17 23:30 12/09/17 23:29 Albuterol/ Ipratropium (Duoneb) 3 ml Q6R INH 11/10/17 03:00 12/10/17 02:59 Morphine Sulfate (MoRPHine SULFATE INJ) 4 mg Q2H PRN IV 11/09/17 23:30 11/23/17 23:29 Miscellaneous Information (Icu Protocol For Hyperglycemia) 1 ea PRN PRN N/A 11/09/17 23:30 11/11/17 23:29 Heparin Sodium (Porcine) (Heparin Sq 5000 Unit/0.5ml) 5,000 unit Q8 SQ 11/10/17 06:00 12/10/17 05:59 UNV Review of Systems Unable to fully obtain due to acute shortness of breath. Constitutional: + fever Respiratory: + shortness of breath, + dyspnea on exertion Cardiovascular: + edema Physical Exam Date Time Temp Pulse Resp B/P (MAP) Pulse Ox O2 Delivery O2 Flow Rate FiO2 11/10/17 01:23 94 95 30 11/10/17 00:04 94 97 30 11/09/17 23:58 100 20 95 11/09/17 23:34 101 20 110/67 95 Room Air 11/09/17 23:22 102 18 99/62 100 BiPAP 11/09/17 22:45 106 26 106/72 100 BiPAP 11/09/17 22:14 102 21 151/84 100 11/09/17 21:16 108 97 50 11/09/17 21:15 108 22 97 BiPAP/CPAP 50 11/09/17 21:14 108 11/09/17 21:02 98 BiPAP 11/09/17 20:37 Nasal Cannula 92 11/09/17 20:37 37.2 111 30 189/112 92 Nasal Cannula 2.0 11/09/17 20:37 92 Nasal Cannula 2.0 General Appearance: Sleeping but easily arousable, oriented at least to self and location, BiPAP mask in place, does not appear in acute respiratory or other distress. CV: +S1S2 borderline but regular tachycardia, no murmur. Pulm: Crackles at right base, otherwise clear. Abdomen: +BS, soft, non-tender, non-distended. Extremities: 1+ bilateral mcknight edema. Mild chronic skin changes in extremities. Neuro: Unable to fully assess due to fatigue. Can move all extremities. Laboratory Results Last 24 Hours Test 11/09/17 20:50 11/09/17 20:59 11/09/17 21:00 11/09/17 21:30 White Blood Count 8.05 K/uL Red Blood Count 5.17 M/uL Hemoglobin 11.9 g/dL Hematocrit 42.4 % Mean Corpuscular Volume 82.0 fL Mean Corpuscular Hemoglobin 23.0 pg Mean Corpuscular Hemoglobin Concent 28.1 g/dl Platelet Count 217 K/uL Mean Platelet Volume 10.1 fL Neutrophils (%) (Auto) 80.7 % Lymphocytes (%) (Auto) 13.0 % Monocytes (%) (Auto) 3.6 % Eosinophils (%) (Auto) 2.1 % Basophils (%) (Auto) 0.1 % Neutrophils # (Auto) 6.49 K/uL Lymphocytes # (Auto) 1.05 K/uL Monocytes # (Auto) 0.29 K/uL Eosinophils # (Auto) 0.17 K/uL Basophils # (Auto) 0.01 K/uL RDW Standard Deviation 60.8 fL RDW Coefficient of Variation 20.5 % Immature Granulocyte % (Auto) 0.5 % Immature Granulocyte # (Auto) 0.04 K/uL Anisocytosis PRESENT Prothrombin Time 9.6 SECONDS Prothromb Time International Ratio 0.9 Activated Partial Thromboplast Time 21.3 SECONDS Partial Thromboplastin Ratio 0.8 Sodium Level 137 mmol/L Potassium Level 4.6 mmol/L Chloride Level 99 mmol/L Carbon Dioxide Level 32 mmol/L Anion Gap 6.0 mmol/L Blood Urea Nitrogen 22 mg/dl Creatinine 1.73 mg/dl Est Creatinine Clear Calc Drug Dose 38.7 ml/min Estimated GFR () 40.3 Estimated GFR (Non- 34.7 BUN/Creatinine Ratio 12.9 Random Glucose 141 mg/dl Calcium Level 9.3 mg/dl Chemistry Specimen Hemolysis Bedside Lactic Acid Venous 4.07 mmol/L Bedside Troponin I < 0.030 ng/ml Urine Color YELLOW Urine Appearance CLEAR Urine pH 6.0 Urine Specific [place] 1.010 Urine Protein NEG Urine Glucose (UA) NEG Urine Ketones NEG Urine Occult Blood NEG Urine Nitrite NEG Urine Bilirubin NEG Urine Urobilinogen NEG Urine Leukocyte Esterase NEG Test 11/10/17 01:00 Assessment & Plan 87-year-old male admitted very late on [id number] for acute shortness of breath and pneumonia. PMH: COPD, diastolic heart failure, CAD, CKD stage III-IV, diabetes, AMS with hypoglycemic episodes, chronic hypoxic respiratory failure, chronic aspiration with recurrent pneumonia, adrenal insufficiency, chronic gomez with recurrent UTI, DVT. 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 Mental status acutely improved with BiPAP per at bedside, though he does still seem fatigued ( acute illness versus this being around midnight). No reported acute focal neuro deficits. - On home Cymbalta. Here Ativan prn anxiety. Pulm: PMH as above. Is on 2 L oxygen at home but not BiPAP. Multiple prior admissions for pneumonia due to aspiration. Tonight, initially borderline hypoxic. SpO2 improved on BiPAP. Treated in ED with Solu-Medrol and DuoNeb. See "ID" below as well. - Starting duonebs q6h, Xopenex q4h prn, and steroids as noted below. CVS: No reported history of chest pain prior to respiratory symptom onset. Multiple prior admissions for CHF exacerbation. Initially hypertensive, since resolved. Sinus tachycardia on the monitor and on EKG. TnI negative. On aspirin and atenolol. Echocardiogram earlier this month (October 2017) noted EF 50-55%. ID: Recently on Levaquin. Acute onset of fever this evening . May have acutely aspirated around dinner time. Afebrile here, borderline tachycardic, but tachypneic. Meets SIRS criteria. WBC 8. Lactate 4. pCXR suggestive of infiltrate at right base. Severe sepsis due to pneumonia. Given Zosyn in ED. Starting vancomycin. Endo: PMH diabetes. On Levemir and sliding scale insulin here. PMH adrenal insufficiency. Given stress dose steroids in ED. On Florinef BID and hydrocortisone q8h. Renal/Lytes: Fluid status remains an issue due to dCHF. Given Lasix 20 mg IV in the ED. History CKD 3, baseline Cr around 1.5, on admit Cr 1.73, so actually may be a little prerenal. Started on IVF, but will monitor closely. Holding Lasix PO BID. On Flomax and dutasteride. Chronic indwelling catheter in place. GI: No known acute issues. Reportedly history of prior GI bleed with undetermined source. Was on Coumadin at that time. Here is on heparin. - NPO except meds on admit. On Colace, Pepcid, MiraLAX. Heme: Record review notes Hb 8-9 in early 2017. Admit Hb 11.9 may represent some hemoconcentration. Platelets 217. INR 0.9. Will monitor. DVT prophy: Heparin q8h. Lines: PIV. Code status: DNR, however patient would want defibrillation (and not compressions) and would want vasopressors. PT/OT: Deferred. Disposition: Admit to ICU. Resident Physician Supervision Note: Dr. Torres was resident physician during care of patient. I separately evaluated patient and did history and exam. I discussed the case with the resident and generally agree with the findings and plan. Patient does have evidence of pneumonia and acute hypoxic respiratory failure requiring noninvasive ventilation. Patient was initially started on vancomycin and Zosyn in the emergency department and had previously been on Levaquin. His QTC is 450 I believe he can tolerate a macrolide antibiotic for atypical coverage and accordingly have started him on azithromycin. His MRSA nasal swabs have been positive in the past however he has already had significant improvement with just fluid administration and a true MRSA pneumonia should have a severe necrotic aspect, accordingly I have discontinued the vancomycin overconcerns of his renal insufficiency. I have also transitioned from Zosyn to cefepime for antibiotic coverage to avoid the vancomycin and Zosyn interaction in the setting of pre-existing renal insufficiency. Patient's lactic acidosis is certainly improved scar from 4-2.6 with just fluid administration. I also believe the patient may have an aspect of prerenal azotemia and would benefit from volume expansion at this time I have also reviewed his prior echocardiogram which demonstrated an EF of 55%. Patient certainly has poor glucose control and his last [id number] blood sugar was 436 and we will initiate a insulin infusion, he already has a pharmacy glycemic consult placed. Patient does appear to have sepsis secondary to pneumonia, no evidence of hypertension I am concerned he has a prerenal aspect to his LISANDRO continued ICU stay. I have personally spent 60 minutes of critical care time in the direct management of this patient. This is a life/limb threatening event. This includes time spent evaluating patient, direct bedside care, chart review, placing orders, interpretation of diagnostic studies, discussion with consultants, patient, and/or family members regarding treatment decisions, as well as other required patient management activities. This time is exclusive of all separately billable procedures, and teaching time and separate from and in addition to any other critical care service time. Documented By: Antonio Traylor DO Resident Tracking Resident Involvement: Resident Care Provided Care Provided: Adult Hospital Medicine (ICU)
[2017-11-10] MEDS: ALBUT/IPRATROP 3MG/0.5MG NEB 3 ML VIAL INH SCH ×4 (03:00→19:37)
[2017-11-10] MEDS: HYDROCORTISONE IV 100 MG in SYRINGE 0 ML IV SCH ×3 (03:31→18:24)
[2017-11-10 03:49] LABS: HEMATOCRIT 32.8 % (42-52); HEMOGLOBIN 9.4 g/dL (14.0-18.0); MEAN CORPUSCULAR HEMOGLOBIN 23.2 pg (25-34); MEAN CORPUSCULAR HGB CONC 28.7 g/dl (32-36); MEAN PLATELET VOLUME 9.6 fL (7.4-10.4); NUCLEATED RED BLOOD CELL ABS 0.05 K/uL (0-0); PLATELET COUNT 173 K/uL (130-400); RED CELL DISTRIBUTION WIDTH CV 20.1 % (11.5-14.5); RED CELL DISTRIBUTION WIDTH SD 58.9 fL (36.4-46.3); WHITE BLOOD COUNT 14.51 K/uL (4.8-10.8)
[2017-11-10 04:07] LABS: ALBUMIN 2.8 gm/dl (3.4-5.0); CALCIUM 8.4 mg/dl (8.5-10.1); CREATININE 2.06 mg/dl (0.60-1.40); POTASSIUM 4.3 mmol/L (3.5-5.1)
[2017-11-10 04:10] LABS: BASO % 0.1 %; BASO ABS # 0.01 K/uL (0-0.2); IG# 0.07 K/uL (0.00-0.02); LYMPH % 5.6 %; LYMPH ABS # 0.81 K/uL (1.2-3.4); MONO % 7.9 %; MONO ABS # 1.15 K/uL (0.11-0.59); NEUT % 85.9 %; NEUT ABS # 12.47 K/uL (1.4-6.5); TOTAL PROTEIN 6.2 gm/dl (6.4-8.2)
[2017-11-10] MEDS ORDERED: PHARMACY GLYCEMIC MGMT CONSULT PRN (06:17)
[2017-11-10] MEDS: HEPARIN SOD 5000 UNIT/0.5 ML CARP SQ SCH ×3 (06:27→22:03)
[2017-11-10] MEDS ORDERED: INSULIN ASPART 100 UNITS/ML 3 ML PEN SC SCH (06:30)
[2017-11-10] MEDS ORDERED: INSULIN DETEMIR FLEXPEN/FLEX TOUCH 100 UNITS/ML 3ML SQ ONE (06:45)
[2017-11-10] MEDS ORDERED: INSULIN PROTOCOL GOAL RANGE ONE (07:45)
[2017-11-10] MEDS ORDERED: AZITHROMYCIN IV 500 MG in DEXTROSE 5% 250ML 250 ML IV ONE (07:45)
[2017-11-10] MEDS: INSULIN ASPART 100 UNITS/ML 3 ML PEN SC SCH ×4 (08:00→20:56)
[2017-11-10] MEDS: ARTIFICIAL TEARS OP SOLN OPB SCH ×2 (08:10→21:12)
[2017-11-10] MEDS: INSULIN IV INFUSION PROTOCOL SCH ×3 (08:32→08:49)
[2017-11-10] MEDS: OXYCODONE HCL 15 MG TABCR (OXYCONTIN) PO SCH (09:00)
[2017-11-10] MEDS ORDERED: GLUCAGON FOR INJ 1 MG VIAL SQ PRN (09:00)
[2017-11-10] MEDS ORDERED: GLUCOSE 40% GEL 15 GM TUBE PO PRN (09:00)
[2017-11-10] MEDS: DULOXETINE (CYMBALTA) 30 MG CAP PO SCH (09:00)
[2017-11-10] MEDS: BISACODYL 5 MG TABEC PO SCH (09:00)
[2017-11-10] MEDS ORDERED: HYDROCORTISONE 10 MG TAB PO SCH (09:00)
[2017-11-10] MEDS: POLYETHYLENE (MIRALAX) 17 GM PACK PO SCH (09:00)
[2017-11-10] MEDS ORDERED: NovoLIN R BOLUS FROM BAG IV ONE (09:00)
[2017-11-10] MEDS: CYANOCOBALAMIN 500 MCG TAB (VIT B-12) PO SCH (09:00)
[2017-11-10] MEDS: DOCUSATE SODIUM 100 MG CAP PO SCH ×2 (09:00→20:56)
[2017-11-10] MEDS: MAGNESIUM OXIDE 400 MG TAB PO SCH (09:00)
[2017-11-10] MEDS ORDERED: GLUCOSE 10 TABS/TUBE PO PRN (09:00)
[2017-11-10] MEDS: FLUDROCORTISONE ACETATE 0.1 MG TAB PO SCH (09:00)
[2017-11-10] MEDS: GUAIFENESIN 600 MG TABCR PO SCH (09:00)
[2017-11-10] MEDS: ASPIRIN 81 MG CHEW PO SCH (09:00)
[2017-11-10] MEDS ORDERED: FUROSEMIDE 40 MG TAB PO SCH (09:00)
[2017-11-10] MEDS ORDERED: CEFEPIME IV 1,000 MG in DEXTROSE 5% 100ML 100 ML IV SCH (09:00)
[2017-11-10] MEDS: INSULIN REGULAR 250 UNITS in SODIUM CHLORIDE 0.9% 250ML 250 ML IV SCH (09:22)
[2017-11-10] MEDS: CEFEPIME IV 1,000 MG in SYRINGE 0 ML IV SCH (09:30)
[2017-11-10] MEDS: MoRPHine SULFATE 4 MG/ML 1 ML CARP\\VIAL IV PRN (14:39)
--- NOTE | 2017-11-10 15:20 | Progress Note ---
Subjective Date of Service: Nov 10, 2017. Subjective Pt evaluation today including: conversation w/ patient, conversation w/ family , physical exam, chart review, lab review, review of studies, conversation w/ personnel consultant, review of inpatient medication list Voiding: gomez catheter in place On nasal cannula 3 L from BiPAP, currently osat was 96% iin 3 L nasal cannula, looks lethargic and looks confused however awake alert orientated no his birthday, place and 's name Problem List Medical Problems: (1) Acute on chronic renal failure Status: Acute (2) Acute respiratory failure Status: Acute (3) Altered mental status Status: Acute (4) Cellulitis Status: Acute (5) Coagulopathy Status: Acute (6) Confusion Status: Acute (7) Confusion Status: Acute (8) COPD exacerbation Status: Acute (9) Fever Status: Acute (10) Fever Status: Acute (11) Forearm laceration Status: Acute (12) GI bleed Status: Acute (13) Hand pain Status: Acute (14) Hypoglycemia Status: Acute (15) Hypoglycemia Status: Acute (16) Hypoxia Status: Acute (17) Hypoxia Status: Acute (18) Influenza A Status: Acute (19) Lactic acidosis Status: Acute (20) Malfunction of Gomez catheter Status: Acute (21) Reactive airway disease Status: Acute (22) Respiratory distress Status: Acute (23) Right lower lobe pneumonia Status: Acute (24) Sepsis Status: Acute (25) Substernal chest pain Status: Acute (26) Substernal precordial chest pain Status: Acute (27) UTI (urinary tract infection) Status: Acute Review of Systems Constitutional: + weakness, + fatigue, No fever, No sweats, No weight loss, No problem reported Eyes: No worsening of vision, No eye pain, No redness, No discharge, No diplopia ENT: No hearing loss, No unusual epistaxis, No nasal symptoms, No sore throat, No tinnitus, No dental problems, No trouble swallowing Respiratory: + cough, + shortness of breath, No sputum, No wheezing, No dyspnea on exertion, No dyspnea at rest, No hemoptysis Cardiac: + edema, No chest pain, No orthopnea, No PND, No claudication, No palpitations Abdomen: No pain, No nausea, No vomiting, No diarrhea, No constipation Musculoskeletal: No joint pain, No muscle pain, No swelling, No calf pain Male : No dysuria, No urinary frequency, No incontinence, No nocturia more than once/night, No slowing stream, No hematuria Neurologic: No memory loss, No paralysis, No weakness, No numbness/tingling, No vertigo, No balance problems Psychiatric: No depression symptoms, No anhedonism, No anxiety, No insomnia, No substance abuse Heme: No abnormal bleeding/bruising, No clotting problems, No swollen lymph nodes, No night sweats Endo: No fatigue, No excessive thirst, No excessive urination Skin: No rash, No itch, No new/changing skin lesions, No color change, No bleeding Objective Vital Signs Date Time Temp Pulse Resp B/P (MAP) Pulse Ox O2 Delivery O2 Flow Rate FiO2 11/10/17 13:30 36.4 81 16 106/64 (78) 97 Nasal Cannula 2.0 11/10/17 13:01 79 21 106/64 (78) 99 11/10/17 13:00 80 13 99 11/10/17 12:01 78 13 105/65 (78) 99 11/10/17 12:00 78 19 98 11/10/17 11:14 36.4 78 16 108/66 (80) 97 BiPAP 30 11/10/17 11:14 BiPAP 30 11/10/17 11:01 80 16 108/66 (80) 98 11/10/17 11:00 76 15 98 11/10/17 10:01 77 20 97/59 (72) 100 11/10/17 10:00 36.7 76 16 97/59 (72) 96 BiPAP 30 11/10/17 10:00 75 21 100 11/10/17 09:01 78 28 101/74 (83) 99 11/10/17 09:00 78 23 99 11/10/17 08:01 79 20 96/67 (77) 98 11/10/17 08:00 80 19 99 11/10/17 07:40 77 25 98 BiPAP/CPAP 30 11/10/17 07:30 36.7 78 14 93/57 (69) 96 BiPAP 30 11/10/17 07:30 BiPAP 30 11/10/17 07:01 77 19 93/57 (69) 98 11/10/17 07:00 77 23 98 11/10/17 05:06 81 23 96/60 (72) 96 11/10/17 05:01 82 22 78/47 (57) 97 11/10/17 04:01 37.3 85 26 90/58 (69) 11/10/17 04:00 98 Room Air 30 11/10/17 03:33 91 25 98 BiPAP/CPAP 30 11/10/17 03:01 90 22 96/59 (71) 98 11/10/17 03:00 91 95 30 11/10/17 02:01 93 26 89/55 (66) 96 11/10/17 01:44 38.4 95 22 92/56 96 BiPAP 30 11/10/17 01:37 38.4 93 28 92/56 (68) 96 11/10/17 01:23 94 95 30 11/10/17 00:04 94 97 30 11/09/17 23:58 100 20 95 11/09/17 23:34 101 20 110/67 95 Room Air 11/09/17 23:22 102 18 99/62 100 BiPAP 11/09/17 22:45 106 26 106/72 100 BiPAP 11/09/17 22:14 102 21 151/84 100 11/09/17 21:16 108 97 50 11/09/17 21:15 108 22 97 BiPAP/CPAP 50 11/09/17 21:14 108 11/09/17 21:02 98 BiPAP 11/09/17 20:37 Nasal Cannula 92 11/09/17 20:37 37.2 111 30 189/112 92 Nasal Cannula 2.0 11/09/17 20:37 92 Nasal Cannula 2.0 Physical Exam General Appearance: WD/WN, no apparent distress, + obese Eyes: normal inspection, PERRL, EOMI, sclerae normal ENT: normal ENT inspection, hearing grossly normal, pharynx normal Neck: supple, no adenopathy, thyroid normal, no JVD, no carotid bruits, trachea midline Respiratory/Chest: chest non-tender, normal breath sounds, no respiratory distress, no accessory muscle use, + decreased breath sounds, + wheezing Cardiovascular: regular rate, rhythm, no gallop, no JVD, no murmur, + pertinent finding (1+ edema) Abdomen: normal bowel sounds, non tender, soft, no organomegaly, no pulsatile mass Extremities: normal range of motion, non-tender, normal inspection, no pedal edema, no calf tenderness, normal capillary refill, pelvis stable 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: 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, no motor/sensory deficits, alert, normal mood/affect, oriented x 3 Skin: normal color, warm/dry, no rash Lymphatic: no adenopathy Laboratory Results Last 24 Hours Test 11/09/17 20:50 11/09/17 20:59 11/09/17 21:00 11/09/17 21:30 White Blood Count 8.05 K/uL Red Blood Count 5.17 M/uL Hemoglobin 11.9 g/dL Hematocrit 42.4 % Mean Corpuscular Volume 82.0 fL Mean Corpuscular Hemoglobin 23.0 pg Mean Corpuscular Hemoglobin Concent 28.1 g/dl Platelet Count 217 K/uL Mean Platelet Volume 10.1 fL Neutrophils (%) (Auto) 80.7 % Lymphocytes (%) (Auto) 13.0 % Monocytes (%) (Auto) 3.6 % Eosinophils (%) (Auto) 2.1 % Basophils (%) (Auto) 0.1 % Neutrophils # (Auto) 6.49 K/uL Lymphocytes # (Auto) 1.05 K/uL Monocytes # (Auto) 0.29 K/uL Eosinophils # (Auto) 0.17 K/uL Basophils # (Auto) 0.01 K/uL RDW Standard Deviation 60.8 fL RDW Coefficient of Variation 20.5 % Immature Granulocyte % (Auto) 0.5 % Immature Granulocyte # (Auto) 0.04 K/uL Anisocytosis PRESENT Prothrombin Time 9.6 SECONDS Prothromb Time International Ratio 0.9 Activated Partial Thromboplast Time 21.3 SECONDS Partial Thromboplastin Ratio 0.8 Sodium Level 137 mmol/L Potassium Level 4.6 mmol/L Chloride Level 99 mmol/L Carbon Dioxide Level 32 mmol/L Anion Gap 6.0 mmol/L Blood Urea Nitrogen 22 mg/dl Creatinine 1.73 mg/dl Est Creatinine Clear Calc Drug Dose 38.7 ml/min Estimated GFR () 40.3 Estimated GFR (Non- 34.7 BUN/Creatinine Ratio 12.9 Random Glucose 141 mg/dl Calcium Level 9.3 mg/dl Chemistry Specimen Hemolysis Bedside Lactic Acid Venous 4.07 mmol/L Bedside Troponin I < 0.030 ng/ml Urine Color YELLOW Urine Appearance CLEAR Urine pH 6.0 Urine Specific [place] 1.010 Urine Protein NEG Urine Glucose (UA) NEG Urine Ketones NEG Urine Occult Blood NEG Urine Nitrite NEG Urine Bilirubin NEG Urine Urobilinogen NEG Urine Leukocyte Esterase NEG Test 11/10/17 02:12 11/10/17 03:36 11/10/17 06:37 11/10/17 06:59 Lactic Acid Level 2.6 mmol/L 3.3 mmol/L White Blood Count 14.51 K/uL Red Blood Count 4.05 M/uL Hemoglobin 9.4 g/dL Hematocrit 32.8 % Mean Corpuscular Volume 81.0 fL Mean Corpuscular Hemoglobin 23.2 pg Mean Corpuscular Hemoglobin Concent 28.7 g/dl Platelet Count 173 K/uL Mean Platelet Volume 9.6 fL Neutrophils (%) (Auto) 85.9 % Lymphocytes (%) (Auto) 5.6 % Monocytes (%) (Auto) 7.9 % Eosinophils (%) (Auto) 0.0 % Basophils (%) (Auto) 0.1 % Neutrophils # (Auto) 12.47 K/uL Lymphocytes # (Auto) 0.81 K/uL Monocytes # (Auto) 1.15 K/uL Eosinophils # (Auto) 0.00 K/uL Basophils # (Auto) 0.01 K/uL RDW Standard Deviation 58.9 fL RDW Coefficient of Variation 20.1 % Immature Granulocyte % (Auto) 0.5 % Immature Granulocyte # (Auto) 0.07 K/uL Nucleated RBC Absolute Count (auto) 0.05 K/uL Nucleated Red Blood Cells % 0.3 % Anisocytosis PRESENT Sodium Level 135 mmol/L Potassium Level 4.3 mmol/L Chloride Level 100 mmol/L Carbon Dioxide Level 30 mmol/L Anion Gap 5.0 mmol/L Blood Urea Nitrogen 25 mg/dl Creatinine 2.06 mg/dl Est Creatinine Clear Calc Drug Dose 31.7 ml/min Estimated GFR () 32.6 Estimated GFR (Non- 28.1 BUN/Creatinine Ratio 12.3 Random Glucose 339 mg/dl Calcium Level 8.4 mg/dl Magnesium Level 2.1 mg/dl Total Bilirubin 0.7 mg/dl Direct Bilirubin 0.1 mg/dl Aspartate Amino Transf (AST/SGOT) 28 U/L Alanine Aminotransferase (ALT/SGPT) 23 U/L Alkaline Phosphatase 85 U/L Total Protein 6.2 gm/dl Albumin 2.8 gm/dl Beta-Hydroxybutyric Acid 5.58 mg/dL Bedside Glucose 436 mg/dl Test 11/10/17 08:16 11/10/17 10:22 11/10/17 11:28 11/10/17 12:31 Bedside Glucose 397 mg/dl 393 mg/dl 333 mg/dl 271 mg/dl Test 11/10/17 13:21 11/10/17 14:19 Bedside Glucose 244 mg/dl 183 mg/dl Assessment and Plan 86 y/o M Admitted multiple times this yr for pneumonia due to aspiration and CHF exacerbation again admitted because of aspiration pneumonia, An initial CXR a new RLL infiltrate. He required BiPAP to maintain an adequate saturation at the time of admission. Past medical history COPD, combined CHF, CAD, CKD 3-4, DM, chronic aspiration with recurrent PNM, adrenal insufficiency, chronic Gomez w/recurrent UTIs, history of DVT, snf resident Aspiration pneumonia Acute respiratory failure with hypoxia upon admission required BiPAP machine Possible sepsis secondary to aspiration pneumonia CHF, he was hypovolemic upon admission, daily Lasix and Metolazone held COPD - there is no evidence of acute exacerbation Severe hyperglycemia with DM , has start insulin drip, placed on SS, Possible acute on chronic CKD III, creatinine 2.08 from 1.73 today CAD - cont ASA, statin, B opal is BP improved, PRN NTG. Anemia - Hb is stable Adrenal insufficiency possible admission placed on stress dose steroids cont Fludrocortisone Mild hyponatremia, will follow Do not resuscitation GI prophylaxis covered, heparin prophylaxis Continued [facility] stay due to: multiple IV medications needed Discharge planning: uncertain
--- NOTE | 2017-11-10 15:21 | Pharmacy Progress Note ---
Glycemic Control Intl Consult Date of Service Nov 10, 2017. Scope Glycemic Pharmacist consulted by Dr Torres on 11/10 for glycemic control and to write orders per [facility] inpatient glycemic control protocol Objective Weight (Kilograms): 100.200 Accuchecks BSG (last 24hrs): Test 11/09/17 20:50 11/10/17 03:36 11/10/17 06:37 11/10/17 08:16 Random Glucose 141 mg/dl (70-99) 339 mg/dl (70-99) Bedside Glucose 436 mg/dl (70-99) 397 mg/dl (70-99) Test 11/10/17 10:22 11/10/17 11:28 11/10/17 12:31 11/10/17 13:21 Bedside Glucose 393 mg/dl (70-99) 333 mg/dl (70-99) 271 mg/dl (70-99) 244 mg/dl (70-99) Test 11/10/17 14:19 Bedside Glucose 183 mg/dl (70-99) Laboratory Data (last 24hrs) Test 11/09/17 20:50 11/10/17 03:36 Anion Gap 6.0 mmol/L 5.0 mmol/L BUN/Creatinine Ratio 12.9 12.3 Blood Urea Nitrogen 22 mg/dl 25 mg/dl Creatinine 1.73 mg/dl 2.06 mg/dl Potassium Level 4.6 mmol/L 4.3 mmol/L Sodium Level 137 mmol/L 135 mmol/L White Blood Count 8.05 K/uL 14.51 K/uL Red Blood Count 5.17 M/uL 4.05 M/uL Hemoglobin 11.9 g/dL 9.4 g/dL Hematocrit 42.4 % 32.8 % Mean Corpuscular Volume 82.0 fL 81.0 fL Mean Corpuscular Hemoglobin 23.0 pg 23.2 pg Mean Corpuscular Hemoglobin Concent 28.1 g/dl 28.7 g/dl Platelet Count 217 K/uL 173 K/uL Mean Platelet Volume 10.1 fL 9.6 fL Neutrophils (%) (Auto) 80.7 % 85.9 % Lymphocytes (%) (Auto) 13.0 % 5.6 % Monocytes (%) (Auto) 3.6 % 7.9 % Eosinophils (%) (Auto) 2.1 % 0.0 % Basophils (%) (Auto) 0.1 % 0.1 % Neutrophils # (Auto) 6.49 K/uL 12.47 K/uL Lymphocytes # (Auto) 1.05 K/uL 0.81 K/uL Monocytes # (Auto) 0.29 K/uL 1.15 K/uL Eosinophils # (Auto) 0.17 K/uL 0.00 K/uL Basophils # (Auto) 0.01 K/uL 0.01 K/uL Recent Pertinent Medications Outpatient Anti-diabetic Regimen: * Novolog 70/30 SC: 25 units qAM, 10 units qPM * Levemir 20 units SC qPM * (Note: also on hydrocortisone 20 mg po BID) * A1c = 6.6 % on 10/16/17 The patient is currently receiving: * Basal insulin: Levemir 20 units x1 this AM * Correctional Insulin: Novolog Correction per scale ACHS Goal Range: Low 140 mg/dL - High 180 mg/dL Correction Factor: 15 mg/dL/unit * Prandial insulin: Per carb ratio of 1 unit per 5 grams CHO consumed Risk Factors for Insulin Resistance: * Steroids: Methylprednisolone 125 mg IV x1 11/09 PM then hydrocortisone 100 mg IV q8h * Infection: aspiration PNA - on cefepime, azithromycin * Diet: NPO Assessment & Plan ASSESSMENT: * 87 yo M with T2DM well known to our glycemic service admitted with SOB/AMS 2nd likely aspiration event last night * BSG's elevated to greater than 400 mg/dL shortly after admission. Started insulin drip (moderate stress, goal range 100-180 mg/dL). * BSG's have trended down nicely since initiation of insulin drip - most recently 183 mg/dL. However, would still maintain insulin drip at this time 2nd higher drip rate (4.3 units/hr), Levemir administered at patient's home dose already this AM, and continuation of IV steroids * Will adjust goal range on drip to 120-180 mg/dL - would prefer the lower end of the range to be above 100 mg/dL as patient is NPO PLAN FOR INPATIENT GLYCEMIC CONTROL: * IV insulin infusion per moderate stress protocol * Adjust Goal Range 120 - 180 mg/dl * In the critical care setting, continuous IV insulin infusion has been shown to be the best method for achieving glycemic targets. * NOVOLOG ordered PCHS in case patient is ordered a diet, with CHO ratio to be based on insulin drip rate / calculator * Please note that the plan above was derived based on current level of insulin resistance and hospital stress. These recommendations are appropriate for inpatient admission only. Plan of care upon discharge will need to be reassessed to avoid potential outpatient hypo/hyperglycemia. Thank you.
[2017-11-11] VITALS (24 sets, daily range): BP systolic 104–138; BP diastolic 62–89; PULSE 68–112; TEMP 36.6–36.7; O2SAT 91–100
[2017-11-11] MEDS: ALBUT/IPRATROP 3MG/0.5MG NEB 3 ML VIAL INH SCH ×4 (02:06→19:06)
[2017-11-11] MEDS: HYDROCORTISONE IV 100 MG in SYRINGE 0 ML IV SCH ×2 (02:52→11:04)
[2017-11-11 04:36] LABS: HEMATOCRIT 30.6 % (42-52); HEMOGLOBIN 8.6 g/dL (14.0-18.0); MEAN CELL VOLUME 80.5 fL (80-100); MEAN CORPUSCULAR HEMOGLOBIN 22.6 pg (25-34); MEAN CORPUSCULAR HGB CONC 28.1 g/dl (32-36); MEAN PLATELET VOLUME 9.7 fL (7.4-10.4); PLATELET COUNT 174 K/uL (130-400); RED CELL DISTRIBUTION WIDTH CV 20.4 % (11.5-14.5); RED CELL DISTRIBUTION WIDTH SD 59.7 fL (36.4-46.3); WHITE BLOOD COUNT 11.78 K/uL (4.8-10.8)
[2017-11-11] MEDS: MoRPHine SULFATE 4 MG/ML 1 ML CARP\\VIAL IV PRN ×2 (04:53→10:22)
[2017-11-11 05:03] LABS: ALBUMIN 2.7 gm/dl (3.4-5.0); ALKALINE PHOSPHATASE 67 U/L (45-117); ALT/SGPT 21 U/L (12-78); AST/SGOT 18 U/L (15-37); BASO % 0.1 %; BASO ABS # 0.01 K/uL (0-0.2); BLOOD UREA NITROGEN 26 mg/dl (7-18); CALCIUM 8.5 mg/dl (8.5-10.1); CARBON DIOXIDE 33 mmol/L (21-32); CREATININE 1.43 mg/dl (0.60-1.40); EOS % 0.3 %; EOS ABS # 0.04 K/uL (0-0.5); GLUCOSE 108 mg/dl (70-99); IG# 0.03 K/uL (0.00-0.02); LYMPH % 4.7 %; LYMPH ABS # 0.55 K/uL (1.2-3.4); MONO % 7.5 %; MONO ABS # 0.88 K/uL (0.11-0.59); NEUT % 87.1 %; NEUT ABS # 10.27 K/uL (1.4-6.5); POTASSIUM 3.3 mmol/L (3.5-5.1); SODIUM 141 mmol/L (136-145); TOTAL PROTEIN 6.3 gm/dl (6.4-8.2)
[2017-11-11] MEDS: POTASSIUM CHLR 10 MEQ / WTR 100 ML IV SCH ×4 (06:07→10:37)
[2017-11-11] MEDS: HEPARIN SOD 5000 UNIT/0.5 ML CARP SQ SCH ×3 (06:08→22:09)
[2017-11-11 06:40] LABS: HEMOGLOBIN A1C 6.4 % (4.5-5.6)
[2017-11-11] MEDS ORDERED: METOPROLOL TARTRATE 1 MG/ML VIAL IV. ONE (06:57)
--- NOTE | 2017-11-11 07:09 | DIAGNOSTIC IMAGING REPORT ---
CHEST ONE VIEW PORTABLE CLINICAL HISTORY: Follow-up pneumonia. COMPARISON STUDY: Chest radiograph November 09, 2017. FINDINGS: Emphysema is noted. There is no pneumothorax or pleural effusion. Right basilar consolidation persists. Asymmetric right upper lung airspace opacity is noted. A left upper lung irregular density measuring approximately 1.8 cm is unchanged. IMPRESSION: 1. No significant change in right basilar airspace opacity suggestive of pneumonia. Radiographic follow-up to ensure resolution is recommended. 2. Emphysema. 3. Persistent 1.8 cm irregular nodular left upper lobe density. This should be followed on subsequent chest radiograph to ensure resolution to exclude a pulmonary nodule. Electronically signed by: Arcenio Mejia M.D. 11/11/2017 7:07 AM Dictated Date/Time: 11/11/2017 7:04 AM
--- NOTE | 2017-11-11 07:33 | Critical Care Progress Note ---
Critical Care Progress Note Date of Service Nov 11, 2017. Attending Dr. Traylor Subjective Spoke with patient early this morning. Says that his breathing is much improved and that he is not short of breath at rest anymore. Says that his left hip bothers him a little bit but otherwise he has no acute concerns. Objective General Appearance: Awake, alert, oriented, nasal cannula in place,does not appear in acute respiratory or other distress. CV: +S1S2 RRR, no murmur. Pulm: Crackles at right base, otherwise clear. Abdomen: +BS, soft, non-tender, non-distended. Extremities: 1+ bilateral mcknight edema. Mild chronic skin changes in extremities. Neuro: No gross neuro deficits. Assessment & Plan 87-year-old male admitted very late on [id number] for acute shortness of breath and pneumonia. PMH: COPD, diastolic heart failure, CAD, CKD stage III-IV, diabetes, AMS with hypoglycemic episodes, chronic hypoxic respiratory failure, chronic aspiration with recurrent pneumonia, adrenal insufficiency, chronic gomez with recurrent UTI, DVT. [employer]: Mental status improved as hypoxia has resolved. No reported acute focal neuro deficits. Held home Cymbalta while NPO. Ativan prn anxiety. Using Aspercreme for hip pain. Pulm: PMH as above. Is on 2 L oxygen at home but not BiPAP. Multiple prior aspiration admissions. Presently resolved acute hypoxic respiratory failure. See "ID" below regarding PNA. On hydrocortisone 100 mg IV q8h, duonebs q6h, and Xopenex q4h prn. Repeat chest x-ray this morning noted no significant change. Holding Florinef while NPO. - Persistent 1.8 cm irregular nodule in left upper lobe on chest x-ray should be followed up. CVS: No known acute issues. PMH as above. Sinus tachycardia on the monitor and on EKG. Echocardiogram earlier this month (October 2017) noted EF 50-55%. QTc 452. - Holding aspirin and atenolol while NPO. Will start metoprolol 2.5 mg IV q6h as substitute. ID: Recently on Levaquin. Afebrile for > 24 hours. No longer tachycardic. WBC 11. pCXR suggestive of infiltrate at right base. 29Apr started cefepime and azithromycin for his septic PNA, planned 7 day course.. Nasal MRSA screen is positive, similar to previous admissions. Do not presently suspect a true MRSA pneumonia. Endo: PMH diabetes. On insulin infusion here with glycemic consult ongoing. PMH adrenal insufficiency. Given stress dose steroids in ED. On hydrocortisone IV q8h. - Holding Florinef BID while NPO. Renal/Lytes: Fluid status remains an issue due to dCHF. LISANDRO now resolved (was likely prerenal). History CKD 3, baseline Cr around 1.5. Holding Lasix and metolazone. On normal saline at 50 mL/hr. Chronic indwelling catheter in place. - Hypokalemia: K 3.3. Replace, monitoring. - Hypocalcemia: Ca 8.4, corrected to 9.4 due to hypoalbuminemia. - Holding Flomax and dutasteride while NPO. GI: Concerns for aspiration of minimal liquid. Placed NPO yesterday evening. At home is on famotidine, here on Protonix. - Ordered swallow study. Heme: Hb 8.6. Record review notes Hb around 8-9 in early 2018. Platelets 174. INR 0.9. Monitoring. DVT prophy: Heparin q8h. Lines: PIV. Gomez cath. Code status: DNR, however patient would want defibrillation (and not compressions) and would want vasopressors. PT/OT: Deferred. Disposition: Stable for downgrade to telemetry. Resident Physician Supervision Note: Dr. Torres was resident physician during care of patient. I separately evaluated patient and did history and exam. I discussed the case with the resident and generally agree with the findings and plan. Patient is improved, driving factor is a pneumonia, patient is currently on azithromycin and cefepime for coverage. He has continued on an insulin infusion secondary to difficult control blood sugars as well as IV hydrocortisone as the patient is on Florinef at baseline. Anticipate transition off the insulin infusion today. Mentally he is more alert today, anticipate downgrade out of the ICU today. I have started the patient on empiric IV beta-opal as he is aspirating and will require formal speech evaluation which has been ordered. Documented By: Antonio Traylor DO Data Medications: Current Inpatient Medications Medications (Trade) Dose Ordered Sig/Cole Route Start Time Stop Time Status Last Admin Dose Admin Aspirin (Aspirin Chew) 81 mg QAM PO 11/10/17 09:00 12/10/17 08:59 Future Hold Atenolol (Tenormin Tab) 12.5 mg QAM PO 11/10/17 09:00 12/10/17 08:59 Future Hold Bisacodyl (Dulcolax Tab) 5 mg BID PO 11/10/17 09:00 12/10/17 08:59 Future Hold Docusate Sodium (coLACE CAP) 100 mg BID PO 11/10/17 09:00 12/10/17 08:59 Duloxetine HCl (Cymbalta Cap) 30 mg DAILY PO 11/10/17 09:00 12/10/17 08:59 Famotidine (Pepcid Tab) 20 mg HS PO 11/10/17 21:00 12/10/17 20:59 Future Hold Fludrocortisone Acetate (Florinef Tab) 0.1 mg BID PO 11/10/17 09:00 12/10/17 08:59 Future Hold Furosemide (Lasix Tab) 40 mg BID17 PO 11/10/17 09:00 12/10/17 08:59 Future Hold Guaifenesin (Mucinex Contr Rel Tab) 1,200 mg Q12 PO 11/10/17 09:00 12/10/17 08:59 Future Hold Magnesium Oxide (Mag-Ox Tab) 400 mg BID PO 11/10/17 09:00 12/10/17 08:59 Future Hold Oxycodone HCl (Oxycontin Tab) 15 mg Q12 PO 11/10/17 09:00 11/24/17 08:59 Future Hold Simethicone (Mylicon Chew Tab) 80 mg QID PRN PO 11/09/17 23:00 12/09/17 22:59 Future Hold Tamsulosin HCl (Flomax Cap) 0.4 mg HS PO 11/10/17 21:00 12/10/17 20:59 Future Hold Cyanocobalamin (Vitamin B-12 Tab) 1,000 mcg QAM PO 11/10/17 09:00 12/10/17 08:59 Future Hold Miscellaneous Information (Order Awaiting Action) 1 ea QS N/A 11/10/17 08:00 12/10/17 07:59 11/10/17 16:00 1 EA Polyethylene (Miralax Powder Packet) 17 gm BID PO 11/10/17 09:00 12/10/17 08:59 Future Hold Artificial Tears (Artificial Tears) 1 drops BID OPB 11/10/17 09:00 12/10/17 08:59 11/10/17 21:12 1 DROPS Hydrocortisone Sodium Succinate 100 mg/Syringe 2 ml @ 4 mls/min Q8H IV 11/10/17 03:00 12/10/17 02:59 11/11/17 02:52 4 MLS/MIN Acetaminophen (Tylenol Tab) 650 mg Q4H PRN PO 11/09/17 23:30 12/09/17 23:29 Future Hold Lorazepam (Ativan Inj) 1 mg Q6H PRN IV 11/09/17 23:30 12/09/17 23:29 Nitroglycerin (Nitrostat Tab) 0.4 mg UD PRN SL 11/09/17 23:30 12/09/17 23:29 Ondansetron HCl (Zofran Inj) 4 mg Q6H PRN IV 11/09/17 23:30 12/09/17 23:29 Levalbuterol (Xopenex 1.25MG/ 3ML Neb) 1.25 mg Q4H PRN INH 11/09/17 23:30 12/09/17 23:29 Albuterol/ Ipratropium (Duoneb) 3 ml Q6R INH 11/10/17 03:00 12/10/17 02:59 11/11/17 07:00 3 ML Morphine Sulfate (MoRPHine SULFATE INJ) 4 mg Q2H PRN IV 11/09/17 23:30 11/23/17 23:29 11/11/17 04:53 4 MG Heparin Sodium (Porcine) (Heparin Sq 5000 Unit/0.5ml) 5,000 unit Q8H SQ 11/10/17 06:00 12/10/17 05:59 11/11/17 06:08 5,000 UNIT Miscellaneous Information (Consult Glycemic Management Pharmacy) 1 ea UD PRN N/A 11/10/17 06:17 12/10/17 06:16 Azithromycin 250 mg/Dextrose 252.5 ml @ 125 mls/hr DAILY IV 11/11/17 09:00 11/14/17 11:02 Insulin Aspart (novoLOG ASPART) SLIDING SCALE PCHS SC 11/10/17 08:00 12/10/17 07:59 Cefepime HCl 1000 mg/Syringe 11 ml @ 5.5 mls/min DAILY IV 11/10/17 09:00 11/17/17 08:59 11/10/17 09:30 5.5 MLS/MIN Insulin Human Regular 250 units/ Sodium Chloride 252.5 ml @ 2.5 mls/hr Q24H IV 11/10/17 09:00 12/10/17 08:59 11/10/17 09:22 2.5 MLS/HR Glucose (Glucose 40% Gel) 15-30 GRAMS 15 GRAMS... UD PRN PO 11/10/17 09:00 12/10/17 08:59 Glucose (Glucose Chew Tab) 4-8 Tablets 4 Tabl... UD PRN PO 11/10/17 09:00 12/10/17 08:59 Dextrose (Dextrose 50% 50ML Syringe) 25-50ML OF 50% DW IV FOR... UD PRN IV 11/10/17 09:00 12/10/17 08:59 Glucagon (Glucagon Inj) 1 mg UD PRN SQ 11/10/17 09:00 12/10/17 08:59 Pantoprazole Sodium 40 mg/ Syringe 10 ml @ 5 mls/min DAILY@11 IV 11/11/17 11:00 12/11/17 10:59 Sodium Chloride 1,000 ml @ 50 mls/hr Q20H IV 11/10/17 23:30 12/10/17 23:29 11/11/17 00:00 50 MLS/HR Potassium Chloride 100 ml @ 100 mls/hr Q1H IV 11/11/17 06:02 11/11/17 10:01 11/11/17 07:28 100 MLS/HR Metoprolol Tartrate (Lopressor Iv) 2.5 mg Q6 IV. 11/11/17 12:00 12/11/17 11:59 Vital Signs: Date Time Temp Pulse Resp B/P (MAP) Pulse Ox O2 Delivery O2 Flow Rate FiO2 11/11/17 07:29 85 138/87 11/11/17 07:13 83 18 99 Nasal Cannula 2.0 11/11/17 06:01 83 12 121/79 (93) 93 11/11/17 05:01 86 11 132/74 (93) 95 11/11/17 04:01 36.6 112 17 114/78 (90) 96 11/11/17 04:00 Room Air 2.0 11/11/17 03:01 75 17 122/66 (84) 95 11/11/17 02:06 69 18 98 Nasal Cannula 2.0 11/11/17 02:01 75 16 111/66 (81) 11/11/17 01:01 76 18 104/62 (76) 95 Nasal Cannula 2.0 11/11/17 00:01 36.6 88 22 109/66 (80) 95 Nasal Cannula 2.0 11/10/17 23:59 Room Air 2.0 11/10/17 23:01 86 21 109/73 (85) 95 Nasal Cannula 2.0 11/10/17 22:01 87 9 102/66 (78) 94 Nasal Cannula 2.0 11/10/17 21:01 85 14 102/60 (74) 94 Nasal Cannula 2.0 11/10/17 20:01 36.6 73 18 95/60 (72) 93 Nasal Cannula 2.0 11/10/17 20:00 Room Air 2.0 11/10/17 19:37 83 24 98 Nasal Cannula 2.0 30 11/10/17 18:00 73 16 98/59 (72) 98 Nasal Cannula 2.0 11/10/17 15:30 Nasal Cannula 2.0 11/10/17 15:30 36.4 73 16 95/58 (70) 98 Nasal Cannula 2.0 11/10/17 15:23 83 24 98 Nasal Cannula 2.0 30 11/10/17 13:30 36.4 81 16 106/64 (78) 97 Nasal Cannula 2.0 11/10/17 13:01 79 21 106/64 (78) 99 11/10/17 13:00 80 13 99 11/10/17 12:01 78 13 105/65 (78) 99 11/10/17 12:00 78 19 98 11/10/17 11:14 36.4 78 16 108/66 (80) 97 BiPAP 30 11/10/17 11:14 BiPAP 30 11/10/17 11:01 80 16 108/66 (80) 98 11/10/17 11:00 76 15 98 11/10/17 10:01 77 20 97/59 (72) 100 11/10/17 10:00 36.7 76 16 97/59 (72) 96 BiPAP 30 11/10/17 10:00 75 21 100 11/10/17 09:01 78 28 101/74 (83) 99 11/10/17 09:00 78 23 99 11/10/17 08:01 79 20 96/67 (77) 98 11/10/17 08:00 80 19 99 11/10/17 07:40 77 25 98 BiPAP/CPAP 30 Laboratory Results: Last 24 Hours Test 11/10/17 08:16 11/10/17 10:22 11/10/17 11:28 11/10/17 12:31 Bedside Glucose 397 mg/dl 393 mg/dl 333 mg/dl 271 mg/dl Test 11/10/17 13:21 11/10/17 14:19 11/10/17 15:30 11/10/17 16:28 Bedside Glucose 244 mg/dl 183 mg/dl 158 mg/dl 159 mg/dl Test 11/10/17 17:30 11/10/17 18:21 11/10/17 19:31 11/10/17 20:37 Bedside Glucose 127 mg/dl 133 mg/dl 120 mg/dl 138 mg/dl Test 11/10/17 21:34 11/10/17 22:45 11/10/17 23:29 11/11/17 00:36 Bedside Glucose 155 mg/dl 131 mg/dl 132 mg/dl 135 mg/dl Test 11/11/17 01:32 11/11/17 02:45 11/11/17 03:46 11/11/17 04:20 Bedside Glucose 125 mg/dl 121 mg/dl 123 mg/dl White Blood Count 11.78 K/uL Red Blood Count 3.80 M/uL Hemoglobin 8.6 g/dL Hematocrit 30.6 % Mean Corpuscular Volume 80.5 fL Mean Corpuscular Hemoglobin 22.6 pg Mean Corpuscular Hemoglobin Concent 28.1 g/dl Platelet Count 174 K/uL Mean Platelet Volume 9.7 fL Neutrophils (%) (Auto) 87.1 % Lymphocytes (%) (Auto) 4.7 % Monocytes (%) (Auto) 7.5 % Eosinophils (%) (Auto) 0.3 % Basophils (%) (Auto) 0.1 % Neutrophils # (Auto) 10.27 K/uL Lymphocytes # (Auto) 0.55 K/uL Monocytes # (Auto) 0.88 K/uL Eosinophils # (Auto) 0.04 K/uL Basophils # (Auto) 0.01 K/uL RDW Standard Deviation 59.7 fL RDW Coefficient of Variation 20.4 % Immature Granulocyte % (Auto) 0.3 % Immature Granulocyte # (Auto) 0.03 K/uL Anisocytosis PRESENT Ovalocytes 1+ Sodium Level 141 mmol/L Potassium Level 3.3 mmol/L Chloride Level 103 mmol/L Carbon Dioxide Level 33 mmol/L Anion Gap 5.0 mmol/L Blood Urea Nitrogen 26 mg/dl Creatinine 1.43 mg/dl Est Creatinine Clear Calc Drug Dose 45.3 ml/min Estimated GFR () 50.7 Estimated GFR (Non- 43.7 BUN/Creatinine Ratio 18.2 Random Glucose 108 mg/dl Estimated Average Glucose 137 mg/dl Hemoglobin A1c 6.4 % Lactic Acid Level 2.1 mmol/L Calcium Level 8.5 mg/dl Magnesium Level 2.6 mg/dl Total Bilirubin 0.4 mg/dl Direct Bilirubin < 0.1 mg/dl Aspartate Amino Transf (AST/SGOT) 18 U/L Alanine Aminotransferase (ALT/SGPT) 21 U/L Alkaline Phosphatase 67 U/L Total Protein 6.3 gm/dl Albumin 2.7 gm/dl Test 11/11/17 04:39 11/11/17 05:47 11/11/17 06:35 Bedside Glucose 117 mg/dl 123 mg/dl 122 mg/dl Resident Tracking Resident Involvement: Resident Care Provided Care Provided: Adult Hospital Medicine (ICU)
[2017-11-11] MEDS: INSULIN ASPART 100 UNITS/ML 3 ML PEN SC SCH ×4 (08:00→20:24)
[2017-11-11] MEDS: CEFEPIME IV 1,000 MG in SYRINGE 0 ML IV SCH (08:57)
[2017-11-11] MEDS: INSULIN REGULAR 250 UNITS in SODIUM CHLORIDE 0.9% 250ML 250 ML IV SCH (08:57)
[2017-11-11] MEDS: DOCUSATE SODIUM 100 MG CAP PO SCH ×2 (08:58→22:04)
[2017-11-11] MEDS: DULOXETINE (CYMBALTA) 30 MG CAP PO SCH (08:58)
[2017-11-11] MEDS: ARTIFICIAL TEARS OP SOLN OPB SCH ×2 (08:58→22:03)
[2017-11-11] MEDS: AZITHROMYCIN IV 250 MG in DEXTROSE 5% 250ML 250 ML IV SCH (09:21)
[2017-11-11] MEDS ORDERED: PANTOprazole INJ 40 MG in SYRINGE 0 ML IV SCH (11:00)
[2017-11-11] MEDS: METOPROLOL TARTRATE 1 MG/ML VIAL IV. SCH ×2 (11:44→18:16)
[2017-11-11] MEDS ORDERED: INSULIN DETEMIR FLEXPEN/FLEX TOUCH 100 UNITS/ML 3ML SQ ONE ×2 (12:00→21:00)
--- NOTE | 2017-11-11 14:00 | Pharmacy Progress Note ---
Glycemic Control Progress Note Date of Service Nov 11, 2017. Scope Glycemic Pharmacist consulted for glycemic control to write orders per [facility] inpatient glycemic control protocol. Objective Accuchecks BSG (last 24hrs): Test 11/10/17 14:19 11/10/17 15:30 11/10/17 16:28 11/10/17 17:30 Bedside Glucose 183 mg/dl (70-99) 158 mg/dl (70-99) 159 mg/dl (70-99) 127 mg/dl (70-99) Test 11/10/17 18:21 11/10/17 19:31 11/10/17 20:37 11/10/17 21:34 Bedside Glucose 133 mg/dl (70-99) 120 mg/dl (70-99) 138 mg/dl (70-99) 155 mg/dl (70-99) Test 11/10/17 22:45 11/10/17 23:29 11/11/17 00:36 11/11/17 01:32 Bedside Glucose 131 mg/dl (70-99) 132 mg/dl (70-99) 135 mg/dl (70-99) 125 mg/dl (70-99) Test 11/11/17 02:45 11/11/17 03:46 11/11/17 04:20 11/11/17 04:39 Bedside Glucose 121 mg/dl (70-99) 123 mg/dl (70-99) 117 mg/dl (70-99) Random Glucose 108 mg/dl (70-99) Test 11/11/17 05:47 11/11/17 06:35 11/11/17 07:36 11/11/17 10:26 Bedside Glucose 123 mg/dl (70-99) 122 mg/dl (70-99) 130 mg/dl (70-99) 140 mg/dl (70-99) HbA1c: Test 11/11/17 04:20 Hemoglobin A1c 6.4 % (4.5-5.6) H Recent Pertinent Medications Outpatient Anti-diabetic Regimen: * Novolog / SC: 25 units qAM, 10 units qPM * Levemir 20 units SC qPM * (Note: also on hydrocortisone 20 mg po BID) * A1c = 6.6 % on 10/16/17 The patient is currently receiving: * Basal insulin: Levemir 20 units x1 11/10 AM * Insulin drip @ 1.4 units/hr (stable rate [id number]) Risk Factors for Insulin Resistance: * Steroids: Hydrocortisone 100 mg IV q8h tapered to 100 mg IV daily today * Infection: aspiration PNA - on cefepime, azithromycin * Diet: NPO Assessment & Plan ASSESSMENT: 11/10/17 * 87 yo M with T2DM well known to our glycemic service admitted with SOB/AMS 2nd likely aspiration event last night * BSG's elevated to greater than 400 mg/dL shortly after admission. Started insulin drip (moderate stress, goal range 100-180 mg/dL). * BSG's have trended down nicely since initiation of insulin drip - most recently 183 mg/dL. However, would still maintain insulin drip at this time 2nd higher drip rate (4.3 units/hr), Levemir administered at patient's home dose already this AM, and continuation of IV steroids * Will adjust goal range on drip to 120-180 mg/dL - would prefer the lower end of the range to be above 100 mg/dL as patient is NPO 11/11/17 * Stable insulin drip rate at lower than 2.0 units/hr. Steroids also tapering. OK to transition IV to SC insulin. * Will stop insulin drip 6 hr after basal insulin administered, or sooner if insulin infusion d/c per protocol * Patient remains NPO - will not be aggressive with basal insulin initially ( especially as steroids are tapering), but OK to give more tonight for BSG > 180 mg/dL * OK to be slightly more aggressive with correctional insulin (vs. basal) as this will only be administered for BSG's >180 mg/dL PLAN FOR INPATIENT GLYCEMIC CONTROL: * Discontinue IV insulin infusion @1800 today * Basal insulin: Levemir 30 units x1 now (administered ~1200). Additional 10 units tonight if BSG > 180 mg/dL * Correctional Insulin: Novolog Correction per scale q4h Goal Range: Low 140 mg/dL - High 180 mg/dL Correction Factor: 15 mg/dL/unit * Prandial insulin: Per carb ratio of 1 unit per 6 grams CHO consumed * Please note that the plan above was derived based on current level of insulin resistance and hospital stress. These recommendations are appropriate for inpatient admission only. Plan of care upon discharge will need to be reassessed to avoid potential outpatient hypo/hyperglycemia. Thank you.
[2017-11-11] MEDS ORDERED: DC IV INSULIN INFUSION ONE (18:00)
[2017-11-11] MEDS: SODIUM CHLORIDE 0.9% 1000ML 1,000 ML IV SCH ×2 (20:25)
[2017-11-11] MEDS ORDERED: METOPROLOL TARTRATE 1 MG/ML VIAL IV PRN (20:45)
[2017-11-11] MEDS: POLYETHYLENE (MIRALAX) 17 GM PACK PO SCH (22:04)
[2017-11-11] MEDS: FLUDROCORTISONE ACETATE 0.1 MG TAB PO SCH (22:05)
[2017-11-11] MEDS: MAGNESIUM OXIDE 400 MG TAB PO SCH (22:05)
[2017-11-11] MEDS: FAMOTIDINE 20 MG TAB PO SCH (22:06)
[2017-11-11] MEDS: TAMSULOSIN HCL 0.4 MG CAP PO SCH (22:06)
[2017-11-11] MEDS: GUAIFENESIN 600 MG TABCR PO SCH (22:06)
[2017-11-11] MEDS: BISACODYL 5 MG TABEC PO SCH (22:12)
--- NOTE | 2017-11-11 23:34 | Progress Note ---
Subjective Date of Service: Nov 11, 2017. Subjective Pt evaluation today including: conversation w/ patient, physical exam, lab review, review of inpatient medication list Pain: denied pain PO Intake: NPO in morning until evaluated by speech therapy Voiding: gomez catheter in place (chronic) patient breathing well in the morning, distress resolved patient admits to eating whatever he wants, cannot follow the thickened liquid diet as recommended speech therapy evaluated, patient known to them, had video swallow in the past recommended honey thick liquids, he will not comply safe to swallow medications reviewed labs, WBC 11k, Cr 1.43, K low at 3.3 discussed with ICU staff Problem List Medical Problems: (1) Acute on chronic renal failure Status: Acute (2) Acute respiratory failure Status: Acute (3) Altered mental status Status: Acute (4) Cellulitis Status: Acute (5) Coagulopathy Status: Acute (6) Confusion Status: Acute (7) Confusion Status: Acute (8) COPD exacerbation Status: Acute (9) Fever Status: Acute (10) Fever Status: Acute (11) Forearm laceration Status: Acute (12) GI bleed Status: Acute (13) Hand pain Status: Acute (14) Hypoglycemia Status: Acute (15) Hypoglycemia Status: Acute (16) Hypoxia Status: Acute (17) Hypoxia Status: Acute (18) Influenza A Status: Acute (19) Lactic acidosis Status: Acute (20) Malfunction of Gomez catheter Status: Acute (21) Reactive airway disease Status: Acute (22) Respiratory distress Status: Acute (23) Right lower lobe pneumonia Status: Acute (24) Sepsis Status: Acute (25) Substernal chest pain Status: Acute (26) Substernal precordial chest pain Status: Acute (27) UTI (urinary tract infection) Status: Acute Review of Systems Constitutional: + weakness, + fatigue Respiratory: + cough (no sputum), + dyspnea on exertion Male : + problem reported (chronic gomez) Neurologic: + weakness All Other Systems: Reviewed and Negative Medications Current Inpatient Medications Medications (Trade) Dose Ordered Sig/Cole Route Start Time Stop Time Status Last Admin Dose Admin Aspirin (Aspirin Chew) 81 mg QAM PO 11/10/17 09:00 12/10/17 08:59 Future hold Atenolol (Tenormin Tab) 12.5 mg QAM PO 11/10/17 09:00 12/10/17 08:59 Future hold Bisacodyl (Dulcolax Tab) 5 mg BID PO 11/10/17 09:00 12/10/17 08:59 Future hold 11/11/17 22:12 5 MG Docusate Sodium (coLACE CAP) 100 mg BID PO 11/10/17 09:00 12/10/17 08:59 11/11/17 22:04 100 MG Duloxetine HCl (Cymbalta Cap) 30 mg DAILY PO 11/10/17 09:00 12/10/17 08:59 Famotidine (Pepcid Tab) 20 mg HS PO 11/10/17 21:00 12/10/17 20:59 Future hold 11/11/17 22:06 20 MG Fludrocortisone Acetate (Florinef Tab) 0.1 mg BID PO 11/10/17 09:00 12/10/17 08:59 Future hold 11/11/17 22:05 0.1 MG Furosemide (Lasix Tab) 40 mg BID17 PO 11/10/17 09:00 12/10/17 08:59 Future Hold Guaifenesin (Mucinex Contr Rel Tab) 1,200 mg Q12 PO 11/10/17 09:00 12/10/17 08:59 Future hold 11/11/17 22:06 1,200 MG Magnesium Oxide (Mag-Ox Tab) 400 mg BID PO 11/10/17 09:00 12/10/17 08:59 Future hold 11/11/17 22:05 400 MG Oxycodone HCl (Oxycontin Tab) 15 mg Q12 PO 11/10/17 09:00 11/24/17 08:59 Future Hold Simethicone (Mylicon Chew Tab) 80 mg QID PRN PO 11/09/17 23:00 12/09/17 22:59 Future hold Tamsulosin HCl (Flomax Cap) 0.4 mg HS PO 11/10/17 21:00 12/10/17 20:59 Future hold 11/11/17 22:06 0.4 MG Cyanocobalamin (Vitamin B-12 Tab) 1,000 mcg QAM PO 11/10/17 09:00 12/10/17 08:59 Future hold Polyethylene (Miralax Powder Packet) 17 gm BID PO 11/10/17 09:00 12/10/17 08:59 Future hold 11/11/17 22:04 17 GM Artificial Tears (Artificial Tears) 1 drops BID OPB 11/10/17 09:00 12/10/17 08:59 11/11/17 22:03 1 DROPS Acetaminophen (Tylenol Tab) 650 mg Q4H PRN PO 11/09/17 23:30 12/09/17 23:29 Future hold Lorazepam (Ativan Inj) 1 mg Q6H PRN IV 11/09/17 23:30 12/09/17 23:29 Nitroglycerin (Nitrostat Tab) 0.4 mg UD PRN SL 11/09/17 23:30 12/09/17 23:29 Ondansetron HCl (Zofran Inj) 4 mg Q6H PRN IV 11/09/17 23:30 12/09/17 23:29 Levalbuterol (Xopenex 1.25MG/ 3ML Neb) 1.25 mg Q4H PRN INH 11/09/17 23:30 12/09/17 23:29 Albuterol/ Ipratropium (Duoneb) 3 ml Q6R INH 11/10/17 03:00 12/10/17 02:59 11/11/17 19:06 3 ML Morphine Sulfate (MoRPHine SULFATE INJ) 4 mg Q2H PRN IV 11/09/17 23:30 11/23/17 23:29 11/11/17 10:22 4 MG Heparin Sodium (Porcine) (Heparin Sq 5000 Unit/0.5ml) 5,000 unit Q8H SQ 11/10/17 06:00 12/10/17 05:59 11/11/17 22:09 5,000 UNIT Miscellaneous Information (Consult Glycemic Management Pharmacy) 1 ea UD PRN N/A 11/10/17 06:17 12/10/17 06:16 Azithromycin 250 mg/Dextrose 252.5 ml @ 125 mls/hr DAILY IV 11/11/17 09:00 11/14/17 11:02 11/11/17 09:21 125 MLS/HR Cefepime HCl 1000 mg/Syringe 11 ml @ 5.5 mls/min DAILY IV 11/10/17 09:00 11/17/17 08:59 11/11/17 08:57 5.5 MLS/MIN Glucose (Glucose 40% Gel) 15-30 GRAMS 15 GRAMS... UD PRN PO 11/10/17 09:00 12/10/17 08:59 Glucose (Glucose Chew Tab) 4-8 Tablets 4 Tabl... UD PRN PO 11/10/17 09:00 12/10/17 08:59 Dextrose (Dextrose 50% 50ML Syringe) 25-50ML OF 50% DW IV FOR... UD PRN IV 11/10/17 09:00 12/10/17 08:59 Glucagon (Glucagon Inj) 1 mg UD PRN SQ 11/10/17 09:00 12/10/17 08:59 Sodium Chloride 1,000 ml @ 50 mls/hr Q20H IV 11/10/17 23:30 12/10/17 23:29 11/11/17 20:25 50 MLS/HR Insulin Aspart (novoLOG ASPART) SLIDING SCALE Q4 SC 11/11/17 20:00 12/11/17 19:59 11/11/17 20:24 2 UNITS Insulin Detemir (Levemir Flexpen/ FlexTouch) QAM SQ 11/12/17 09:00 12/12/17 08:59 Dutasteride (Avodart) 0.5 mg DAILY PO 11/12/17 09:00 12/12/17 08:59 Metoprolol Tartrate (Lopressor Iv) 2.5 mg Q6 PRN IV 11/11/17 20:45 12/11/17 20:44 Pantoprazole Sodium (Protonix Tab) 40 mg QAM PO 11/12/17 09:00 12/12/17 08:59 Objective Vital Signs Date Time Temp Pulse Resp B/P (MAP) Pulse Ox O2 Delivery O2 Flow Rate FiO2 11/11/17 19:06 86 18 95 Nasal Cannula 2.0 11/11/17 18:16 85 142/82 11/11/17 16:00 36.6 75 21 125/78 (94) 97 Nasal Cannula 2.0 11/11/17 16:00 95 Nasal Cannula 2.0 11/11/17 14:51 36.7 80 18 95 2.0 11/11/17 14:09 80 18 95 Nasal Cannula 2.0 11/11/17 12:00 36.7 80 17 105/70 (82) 97 Nasal Cannula 2.0 11/11/17 11:56 97 Nasal Cannula 2.0 11/11/17 11:44 77 137/81 11/11/17 10:00 69 13 116/67 (83) 97 11/11/17 09:00 84 15 123/89 (100) 97 2.0 11/11/17 08:00 36.7 75 21 134/86 (102) 95 Nasal Cannula 2.0 11/11/17 07:55 Nasal Cannula 2.0 11/11/17 07:29 85 138/87 11/11/17 07:13 83 18 99 Nasal Cannula 2.0 11/11/17 07:01 68 22 138/87 (104) 100 11/11/17 07:00 71 15 100 11/11/17 06:01 83 12 121/79 (93) 93 11/11/17 05:01 86 11 132/74 (93) 95 11/11/17 04:01 36.6 112 17 114/78 (90) 96 11/11/17 04:00 Room Air 2.0 11/11/17 03:01 75 17 122/66 (84) 95 11/11/17 02:06 69 18 98 Nasal Cannula 2.0 11/11/17 02:01 75 16 111/66 (81) 11/11/17 01:01 76 18 104/62 (76) 95 Nasal Cannula 2.0 11/11/17 00:01 36.6 88 22 109/66 (80) 95 Nasal Cannula 2.0 11/10/17 23:59 Room Air 2.0 Physical Exam General Appearance: WD/WN, no apparent distress Eyes: normal inspection, EOMI, sclerae normal ENT: normal ENT inspection, hearing grossly normal, pharynx normal Neck: supple, no adenopathy, no JVD, trachea midline Respiratory/Chest: chest non-tender, normal breath sounds, no respiratory distress, no accessory muscle use, + decreased breath sounds (bases) Cardiovascular: regular rate, rhythm, no edema, no gallop, no JVD, no murmur Abdomen: normal bowel sounds, non tender, soft, no organomegaly Extremities: normal range of motion, non-tender, normal inspection, no pedal edema, no calf tenderness, pelvis stable 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, alert, normal mood/affect, oriented x 3, + motor weakness Skin: normal color, warm/dry, no rash Laboratory Results Last 24 Hours Test 11/11/17 00:36 11/11/17 01:32 11/11/17 02:45 11/11/17 03:46 Bedside Glucose 135 mg/dl 125 mg/dl 121 mg/dl 123 mg/dl Test 11/11/17 04:20 11/11/17 04:39 11/11/17 05:47 11/11/17 06:35 White Blood Count 11.78 K/uL Red Blood Count 3.80 M/uL Hemoglobin 8.6 g/dL Hematocrit 30.6 % Mean Corpuscular Volume 80.5 fL Mean Corpuscular Hemoglobin 22.6 pg Mean Corpuscular Hemoglobin Concent 28.1 g/dl Platelet Count 174 K/uL Mean Platelet Volume 9.7 fL Neutrophils (%) (Auto) 87.1 % Lymphocytes (%) (Auto) 4.7 % Monocytes (%) (Auto) 7.5 % Eosinophils (%) (Auto) 0.3 % Basophils (%) (Auto) 0.1 % Neutrophils # (Auto) 10.27 K/uL Lymphocytes # (Auto) 0.55 K/uL Monocytes # (Auto) 0.88 K/uL Eosinophils # (Auto) 0.04 K/uL Basophils # (Auto) 0.01 K/uL RDW Standard Deviation 59.7 fL RDW Coefficient of Variation 20.4 % Immature Granulocyte % (Auto) 0.3 % Immature Granulocyte # (Auto) 0.03 K/uL Anisocytosis PRESENT Ovalocytes 1+ Sodium Level 141 mmol/L Potassium Level 3.3 mmol/L Chloride Level 103 mmol/L Carbon Dioxide Level 33 mmol/L Anion Gap 5.0 mmol/L Blood Urea Nitrogen 26 mg/dl Creatinine 1.43 mg/dl Est Creatinine Clear Calc Drug Dose 45.3 ml/min Estimated GFR () 50.7 Estimated GFR (Non- 43.7 BUN/Creatinine Ratio 18.2 Random Glucose 108 mg/dl Estimated Average Glucose 137 mg/dl Hemoglobin A1c 6.4 % Lactic Acid Level 2.1 mmol/L Calcium Level 8.5 mg/dl Magnesium Level 2.6 mg/dl Total Bilirubin 0.4 mg/dl Direct Bilirubin < 0.1 mg/dl Aspartate Amino Transf (AST/SGOT) 18 U/L Alanine Aminotransferase (ALT/SGPT) 21 U/L Alkaline Phosphatase 67 U/L Total Protein 6.3 gm/dl Albumin 2.7 gm/dl Bedside Glucose 117 mg/dl 123 mg/dl 122 mg/dl Test 11/11/17 07:36 11/11/17 10:26 11/11/17 12:39 11/11/17 13:39 Bedside Glucose 130 mg/dl 140 mg/dl 176 mg/dl 145 mg/dl Test 11/11/17 14:28 11/11/17 15:44 11/11/17 17:36 11/11/17 20:19 Bedside Glucose 134 mg/dl 132 mg/dl 192 mg/dl 201 mg/dl Assessment and Plan 86 y/o M Admitted multiple times this yr for pneumonia due to aspiration and CHF exacerbation again admitted because of aspiration pneumonia, An initial CXR a new RLL infiltrate. He required BiPAP to maintain an adequate saturation at the time of admission. Past medical history COPD, combined CHF, CAD, CKD 3-4, DM, chronic aspiration with recurrent PNM, adrenal insufficiency, chronic Gomez w/recurrent UTIs, history of DVT, correction resident Aspiration pneumonia with sepsis POA: much improved in initial 24 hours titrated off of Bipap, breathing well on 2L NC, which he uses chronically continue Cefepime and Azithromycin for 5-7 days total speech evaluation, recommend honey thick liquids, patient will not comply afebrile, WBC down to 11k, vitals stable now Acute hypoxic respiratory failure on chronic hypoxic failure increased work of breathing, distress, increased hypoxia on admission now back to 2L NC which is baseline Chronic diastolic and systolic HF euvolemic echo on 10/16 showed EF of 50-55% monitor volume status closely, prone to hypervolemia continue Lasix and Metolazone Possible acute on chronic CKD III, creatinine down to 1.4, improved from 1.7 CAD - cont ASA, statin, Coreg Anemia - Hb is stable Adrenal insufficiency: resume Florinef now that he can take pills Do not resuscitation GI prophylaxis covered, heparin prophylaxis Continued [facility] stay due to: multiple IV medications needed Discharge planning: uncertain
[2017-11-12] VITALS (13 sets, daily range): BP systolic 123–146; BP diastolic 70–85; PULSE 60–90; TEMP 36.3–36.7; O2SAT 92–97
[2017-11-12] MEDS: ALBUT/IPRATROP 3MG/0.5MG NEB 3 ML VIAL INH SCH ×4 (02:18→18:59)
[2017-11-12] MEDS: SIMETHICONE 80 MG CHEW PO PRN ×2 (02:38→07:25)
[2017-11-12] MEDS: ONDANSETRON INJ 2 MG/ML 2 ML VIAL IV PRN (03:24)
[2017-11-12] MEDS: INSULIN ASPART 100 UNITS/ML 3 ML PEN SC SCH ×6 (04:00→20:58)
[2017-11-12 05:16] LABS: ALBUMIN 2.7 gm/dl (3.4-5.0); ALT/SGPT 20 U/L (12-78); AST/SGOT 20 U/L (15-37); BLOOD UREA NITROGEN 27 mg/dl (7-18); CALCIUM 8.8 mg/dl (8.5-10.1); CARBON DIOXIDE 34 mmol/L (21-32); CREATININE 1.39 mg/dl (0.60-1.40); GLUCOSE 82 mg/dl (70-99); POTASSIUM 3.2 mmol/L (3.5-5.1); SODIUM 141 mmol/L (136-145)
[2017-11-12 05:19] LABS: ALKALINE PHOSPHATASE 65 U/L (45-117); TOTAL PROTEIN 6.6 gm/dl (6.4-8.2)
[2017-11-12 05:26] LABS: HEMATOCRIT 32.8 % (42-52); HEMOGLOBIN 9.4 g/dL (14.0-18.0); MEAN CELL VOLUME 80.6 fL (80-100); MEAN CORPUSCULAR HEMOGLOBIN 23.1 pg (25-34); MEAN CORPUSCULAR HGB CONC 28.7 g/dl (32-36); MEAN PLATELET VOLUME 9.7 fL (7.4-10.4); PLATELET COUNT 183 K/uL (130-400); RED CELL DISTRIBUTION WIDTH CV 20.2 % (11.5-14.5); WHITE BLOOD COUNT 9.65 K/uL (4.8-10.8)
[2017-11-12 05:27] LABS: BASO % 0.2 %; BASO ABS # 0.02 K/uL (0-0.2); EOS % 1.7 %; EOS ABS # 0.16 K/uL (0-0.5); IG# 0.03 K/uL (0.00-0.02); LYMPH % 9.5 %; LYMPH ABS # 0.92 K/uL (1.2-3.4); MONO ABS # 0.68 K/uL (0.11-0.59); NEUT % 81.3 %; NEUT ABS # 7.84 K/uL (1.4-6.5)
[2017-11-12] MEDS: HEPARIN SOD 5000 UNIT/0.5 ML CARP SQ SCH ×3 (06:05→21:21)
[2017-11-12] MEDS ORDERED: CARBOHYDRATES FOR HYPOGLYCEMIA PO PRN (08:45)
[2017-11-12] MEDS: CEFEPIME IV 1,000 MG in SYRINGE 0 ML IV SCH (08:50)
[2017-11-12] MEDS: AZITHROMYCIN IV 250 MG in DEXTROSE 5% 250ML 250 ML IV SCH (08:50)
[2017-11-12] MEDS: ARTIFICIAL TEARS OP SOLN OPB SCH ×2 (08:52→20:58)
[2017-11-12] MEDS: PANTOprazole SOD 40 MG TAB PO SCH (08:54)
[2017-11-12] MEDS: MAGNESIUM OXIDE 400 MG TAB PO SCH ×2 (08:54→20:56)
[2017-11-12] MEDS: CYANOCOBALAMIN 500 MCG TAB (VIT B-12) PO SCH (08:55)
[2017-11-12] MEDS: ASPIRIN 81 MG CHEW PO SCH (08:56)
[2017-11-12] MEDS: DOCUSATE SODIUM 100 MG CAP PO SCH ×2 (08:57→20:56)
[2017-11-12] MEDS: FLUDROCORTISONE ACETATE 0.1 MG TAB PO SCH ×2 (08:57→20:56)
[2017-11-12] MEDS: DULOXETINE (CYMBALTA) 30 MG CAP PO SCH (08:57)
[2017-11-12] MEDS: POTASSIUM CHLORIDE 20 MEQ TABCR PO SCH ×3 (08:58→20:56)
[2017-11-12] MEDS: POLYETHYLENE (MIRALAX) 17 GM PACK PO SCH ×2 (08:58→20:56)
[2017-11-12] MEDS ORDERED: HYDROCORTISONE IV 100 MG in SYRINGE 0 ML IV SCH (09:00)
[2017-11-12] MEDS: INSULIN DETEMIR FLEXPEN/FLEX TOUCH 100 UNITS/ML 3ML SQ SCH ×2 (09:00→17:44)
[2017-11-12] MEDS ORDERED: INSULIN DETEMIR FLEXPEN/FLEX TOUCH 100 UNITS/ML 3ML SQ SCH ×2 (09:00)
[2017-11-12] MEDS: BISACODYL 5 MG TABEC PO SCH ×2 (09:02→21:21)
[2017-11-12] MEDS: GUAIFENESIN 600 MG TABCR PO SCH ×2 (09:18→20:56)
--- NOTE | 2017-11-12 11:46 | DIAGNOSTIC IMAGING REPORT ---
[facility] CLINICAL HISTORY: 87 years-old Male presenting with constipation, aspiration pneumonia. TECHNIQUE: Single supine view of the abdomen was obtained. COMPARISON: CT from 07/19/2017. FINDINGS: Persistent gaseous distention of the stomach. Supine positioning, portable technique, and body habitus degrade evaluation. Allowing for this limited sensitivity, no gross pneumoperitoneum. Assessment for stool burden is limited. Degenerative changes of the spine. Lung bases are grossly clear. IMPRESSION: 1. Limited examination secondary to supine positioning, portable technique, and body habitus. Persistent gaseous distention of the stomach unchanged since prior exam. Electronically signed by: Wilver Baker M.D. 11/12/2017 11:45 AM Dictated Date/Time: 11/12/2017 11:43 AM
[2017-11-12] MEDS ORDERED: MAGNESIUM HYDROXIDE SUSP 30 ML UDC PO PRN (12:00)
--- NOTE | 2017-11-12 12:33 | Progress Note ---
Subjective Date of Service: November 12, 2017. Subjective Pt evaluation today including: conversation w/ patient, physical exam, lab review, review of inpatient medication list Pain: no pain PO Intake: eating food, refusing to drink thick liquids Voiding: gomez catheter in place (chronic) patient doing better, breathing stable he is refusing to drink thick liquids, is eating okay c/o constipation and abdominal distension, nausea reviewed labs, WBC 9k, Cr is 1.39 and K is 3.2 Problem List Medical Problems: (1) Acute on chronic renal failure Status: Acute (2) Acute respiratory failure Status: Acute (3) Altered mental status Status: Acute (4) Cellulitis Status: Acute (5) Coagulopathy Status: Acute (6) Confusion Status: Acute (7) Confusion Status: Acute (8) COPD exacerbation Status: Acute (9) Fever Status: Acute (10) Fever Status: Acute (11) Forearm laceration Status: Acute (12) GI bleed Status: Acute (13) Hand pain Status: Acute (14) Hypoglycemia Status: Acute (15) Hypoglycemia Status: Acute (16) Hypoxia Status: Acute (17) Hypoxia Status: Acute (18) Influenza A Status: Acute (19) Lactic acidosis Status: Acute (20) Malfunction of Gomez catheter Status: Acute (21) Reactive airway disease Status: Acute (22) Respiratory distress Status: Acute (23) Right lower lobe pneumonia Status: Acute (24) Sepsis Status: Acute (25) Substernal chest pain Status: Acute (26) Substernal precordial chest pain Status: Acute (27) UTI (urinary tract infection) Status: Acute Review of Systems Constitutional: + weakness, + fatigue Respiratory: + cough, + dyspnea on exertion Abdomen: + constipation (distended) Neurologic: + weakness All Other Systems: Reviewed and Negative Medications Current Inpatient Medications Medications (Trade) Dose Ordered Sig/Cole Route Start Time Stop Time Status Last Admin Dose Admin Aspirin (Aspirin Chew) 81 mg QAM PO 11/10/17 09:00 12/10/17 08:59 Future hold 11/12/17 08:56 81 MG Atenolol (Tenormin Tab) 12.5 mg QAM PO 11/10/17 09:00 12/10/17 08:59 Future hold 11/12/17 08:57 12.5 MG Bisacodyl (Dulcolax Tab) 5 mg BID PO 11/10/17 09:00 12/10/17 08:59 Future hold 11/12/17 09:02 5 MG Docusate Sodium (coLACE CAP) 100 mg BID PO 11/10/17 09:00 12/10/17 08:59 11/12/17 08:57 100 MG Duloxetine HCl (Cymbalta Cap) 30 mg DAILY PO 11/10/17 09:00 12/10/17 08:59 11/12/17 08:57 30 MG Famotidine (Pepcid Tab) 20 mg HS PO 11/10/17 21:00 12/10/17 20:59 Future hold 11/11/17 22:06 20 MG Fludrocortisone Acetate (Florinef Tab) 0.1 mg BID PO 11/10/17 09:00 12/10/17 08:59 Future hold 11/12/17 08:57 0.1 MG Furosemide (Lasix Tab) 40 mg BID17 PO 11/10/17 09:00 12/10/17 08:59 Future Hold Guaifenesin (Mucinex Contr Rel Tab) 1,200 mg Q12 PO 11/10/17 09:00 12/10/17 08:59 Future hold 11/12/17 09:18 1,200 MG Magnesium Oxide (Mag-Ox Tab) 400 mg BID PO 11/10/17 09:00 12/10/17 08:59 Future hold 11/12/17 08:54 400 MG Oxycodone HCl (Oxycontin Tab) 15 mg Q12 PO 11/10/17 09:00 11/24/17 08:59 Future Hold Simethicone (Mylicon Chew Tab) 80 mg QID PRN PO 11/09/17 23:00 12/09/17 22:59 Future hold 11/12/17 07:25 80 MG Tamsulosin HCl (Flomax Cap) 0.4 mg HS PO 11/10/17 21:00 12/10/17 20:59 Future hold 11/11/17 22:06 0.4 MG Cyanocobalamin (Vitamin B-12 Tab) 1,000 mcg QAM PO 11/10/17 09:00 12/10/17 08:59 Future hold 11/12/17 08:55 1,000 MCG Polyethylene (Miralax Powder Packet) 17 gm BID PO 11/10/17 09:00 12/10/17 08:59 Future hold 11/12/17 08:58 17 GM Artificial Tears (Artificial Tears) 1 drops BID OPB 11/10/17 09:00 12/10/17 08:59 11/12/17 08:52 1 DROPS Acetaminophen (Tylenol Tab) 650 mg Q4H PRN PO 11/09/17 23:30 12/09/17 23:29 Future hold Lorazepam (Ativan Inj) 1 mg Q6H PRN IV 11/09/17 23:30 12/09/17 23:29 Nitroglycerin (Nitrostat Tab) 0.4 mg UD PRN SL 11/09/17 23:30 12/09/17 23:29 Ondansetron HCl (Zofran Inj) 4 mg Q6H PRN IV 11/09/17 23:30 12/09/17 23:29 11/12/17 03:24 4 MG Levalbuterol (Xopenex 1.25MG/ 3ML Neb) 1.25 mg Q4H PRN INH 11/09/17 23:30 12/09/17 23:29 Albuterol/ Ipratropium (Duoneb) 3 ml Q6R INH 11/10/17 03:00 12/10/17 02:59 11/12/17 07:09 3 ML Morphine Sulfate (MoRPHine SULFATE INJ) 4 mg Q2H PRN IV 11/09/17 23:30 11/23/17 23:29 11/11/17 10:22 4 MG Heparin Sodium (Porcine) (Heparin Sq 5000 Unit/0.5ml) 5,000 unit Q8H SQ 11/10/17 06:00 12/10/17 05:59 11/12/17 06:05 5,000 UNIT Miscellaneous Information (Consult Glycemic Management Pharmacy) 1 ea UD PRN N/A 11/10/17 06:17 12/10/17 06:16 Azithromycin 250 mg/Dextrose 252.5 ml @ 125 mls/hr DAILY IV 11/11/17 09:00 11/14/17 11:02 11/12/17 08:50 125 MLS/HR Cefepime HCl 1000 mg/Syringe 11 ml @ 5.5 mls/min DAILY IV 11/10/17 09:00 5/6/18 08:59 11/12/17 08:50 5.5 MLS/MIN Glucose (Glucose 40% Gel) 15-30 GRAMS 15 GRAMS... UD PRN PO 11/10/17 09:00 12/10/17 08:59 Glucose (Glucose Chew Tab) 4-8 Tablets 4 Tabl... UD PRN PO 11/10/17 09:00 12/10/17 08:59 Dextrose (Dextrose 50% 50ML Syringe) 25-50ML OF 50% DW IV FOR... UD PRN IV 11/10/17 09:00 12/10/17 08:59 Glucagon (Glucagon Inj) 1 mg UD PRN SQ 11/10/17 09:00 12/10/17 08:59 Sodium Chloride 1,000 ml @ 50 mls/hr Q20H IV 11/10/17 23:30 12/10/17 23:29 11/11/17 20:25 50 MLS/HR Dutasteride (Avodart) 0.5 mg DAILY PO 11/12/17 09:00 12/12/17 08:59 11/12/17 08:53 0.5 MG Metoprolol Tartrate (Lopressor Iv) 2.5 mg Q6 PRN IV 11/11/17 20:45 12/11/17 20:44 Pantoprazole Sodium (Protonix Tab) 40 mg QAM PO 11/12/17 09:00 12/12/17 08:59 11/12/17 08:54 40 MG Potassium Chloride (Klor-Con Tab) 20 meq TID PO 11/12/17 09:00 12/12/17 08:59 11/12/17 08:58 20 MEQ Insulin Detemir (Levemir Flexpen/ FlexTouch) BID SQ 11/12/17 09:00 12/12/17 08:59 11/12/17 09:00 15 UNITS Insulin Aspart (novoLOG ASPART) SLIDING SCALE ACHS SC 11/12/17 08:45 12/12/17 08:44 Carbohydrates (Carbohydrates For Hypoglycemia) 15-30 GRAMS 15 grams if BSG 54-69... UD PRN PO 11/12/17 08:45 12/12/17 08:44 Magnesium Hydroxide (Milk Of Magnesia Susp) 30 ml Q6H PRN PO 11/12/17 12:00 12/12/17 11:59 UNV Objective Vital Signs Date Time Temp Pulse Resp B/P (MAP) Pulse Ox O2 Delivery O2 Flow Rate FiO2 11/12/17 12:00 36.7 70 17 127/70 (89) 11/12/17 08:00 36.5 90 17 146/77 (100) 95 11/12/17 08:00 Nasal Cannula 2.0 11/12/17 07:13 76 18 92 Nasal Cannula 2.0 11/12/17 04:01 36.4 84 19 132/85 (101) 11/12/17 04:00 97 Nasal Cannula 2.0 11/12/17 00:01 36.5 72 130/77 (94) 11/11/17 23:59 97 Nasal Cannula 2.0 11/11/17 20:34 79 13 122/72 (89) 94 11/11/17 20:01 36.7 92 27 91 11/11/17 20:00 95 Nasal Cannula 2.0 11/11/17 19:06 86 18 95 Nasal Cannula 2.0 11/11/17 18:16 85 142/82 11/11/17 16:00 36.6 75 21 125/78 (94) 97 Nasal Cannula 2.0 11/11/17 16:00 95 Nasal Cannula 2.0 11/11/17 14:51 36.7 80 18 95 2.0 11/11/17 14:09 80 18 95 Nasal Cannula 2.0 Physical Exam General Appearance: WD/WN, no apparent distress Eyes: normal inspection, EOMI, sclerae normal ENT: normal ENT inspection, hearing grossly normal, pharynx normal Neck: supple, no adenopathy, no JVD, trachea midline Respiratory/Chest: chest non-tender, lungs clear, no respiratory distress, no accessory muscle use, + decreased breath sounds (bases) Cardiovascular: regular rate, rhythm, no edema, no gallop, no JVD, no murmur Abdomen: non tender, soft, no organomegaly, + abnormal bowel sounds (hypoactive ), + distended Extremities: normal range of motion, non-tender, normal inspection, no pedal edema, no calf tenderness, pelvis stable 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: drawing frame tender II-XII nml as tested, no motor/sensory deficits, alert, normal mood/affect, oriented x 3 Skin: normal color, warm/dry, no rash Laboratory Results Last 24 Hours Test 11/11/17 12:39 11/11/17 13:39 11/11/17 14:28 11/11/17 15:44 Bedside Glucose 176 mg/dl 145 mg/dl 134 mg/dl 132 mg/dl Test 11/11/17 17:36 11/11/17 20:19 11/12/17 00:10 11/12/17 04:20 Bedside Glucose 192 mg/dl 201 mg/dl 158 mg/dl White Blood Count 9.65 K/uL Red Blood Count 4.07 M/uL Hemoglobin 9.4 g/dL Hematocrit 32.8 % Mean Corpuscular Volume 80.6 fL Mean Corpuscular Hemoglobin 23.1 pg Mean Corpuscular Hemoglobin Concent 28.7 g/dl Platelet Count 183 K/uL Mean Platelet Volume 9.7 fL Neutrophils (%) (Auto) 81.3 % Lymphocytes (%) (Auto) 9.5 % Monocytes (%) (Auto) 7.0 % Eosinophils (%) (Auto) 1.7 % Basophils (%) (Auto) 0.2 % Neutrophils # (Auto) 7.84 K/uL Lymphocytes # (Auto) 0.92 K/uL Monocytes # (Auto) 0.68 K/uL Eosinophils # (Auto) 0.16 K/uL Basophils # (Auto) 0.02 K/uL RDW Standard Deviation 59.0 fL RDW Coefficient of Variation 20.2 % Immature Granulocyte % (Auto) 0.3 % Immature Granulocyte # (Auto) 0.03 K/uL Anisocytosis PRESENT Ovalocytes 1+ Sodium Level 141 mmol/L Potassium Level 3.2 mmol/L Chloride Level 103 mmol/L Carbon Dioxide Level 34 mmol/L Anion Gap 4.0 mmol/L Blood Urea Nitrogen 27 mg/dl Creatinine 1.39 mg/dl Est Creatinine Clear Calc Drug Dose 46.5 ml/min Estimated GFR () 52.4 Estimated GFR (Non- 45.2 BUN/Creatinine Ratio 19.4 Random Glucose 82 mg/dl Calcium Level 8.8 mg/dl Magnesium Level 2.4 mg/dl Total Bilirubin 0.5 mg/dl Direct Bilirubin < 0.1 mg/dl Aspartate Amino Transf (AST/SGOT) 20 U/L Alanine Aminotransferase (ALT/SGPT) 20 U/L Alkaline Phosphatase 65 U/L Total Protein 6.6 gm/dl Albumin 2.7 gm/dl Test 11/12/17 04:23 11/12/17 07:51 Bedside Glucose 89 mg/dl 98 mg/dl Assessment and Plan 86 y/o M Admitted multiple times this yr for pneumonia due to aspiration and CHF exacerbation again admitted because of aspiration pneumonia, An initial CXR a new RLL infiltrate. He required BiPAP to maintain an adequate saturation at the time of admission. Past medical history COPD, combined CHF, CAD, CKD 3-4, DM, chronic aspiration with recurrent PNM, adrenal insufficiency, chronic Gomez w/recurrent UTIs, history of DVT, residential resident Aspiration pneumonia with sepsis POA: much improved in initial 24 hours titrated off of Bipap, breathing well on 2L NC, which he uses chronically continue Cefepime and Azithromycin for 5-7 days total, today is day 3 speech evaluation, recommend honey thick liquids, patient will not comply afebrile, WBC down to 9k, vitals stable discussed with patient that he will continue to aspirate and develop pneumonia, still refuses honey thick liquids Acute hypoxic respiratory failure on chronic hypoxic failure increased work of breathing, distress, increased hypoxia on admission now back to 2L NC which is baseline, breathing comfortably with no distress Chronic diastolic and systolic HF euvolemic echo on 10/16 showed EF of 50-55% monitor volume status closely, prone to hypervolemia continue Lasix and Metolazone continue NS at 50cc/hr to make sure he is getting fluids, refusing to drink thickened fluids Possible acute on chronic CKD III, creatinine stable at 1.39 today, continue to monitor Constipation, distension distended stomach on KUB possible ileus? continue Miralax and Milk of Magnesia increase activity Hypokalemia: 3.2 today, will give potassium chloride 20mEq TID CAD - cont ASA, statin, Coreg Anemia - Hb is stable Adrenal insufficiency: resume Florinef now that he can take pills Do not resuscitation GI prophylaxis covered, heparin prophylaxis transfer to medical floor today Continued [facility] stay due to: multiple IV medications needed Discharge planning: uncertain
--- NOTE | 2017-11-12 13:11 | Pharmacy Progress Note ---
Pharmacy Glycemic Short Note 2 Date of Service November 12, 2017. ASSESSMENT: * 87yo T2DM male with severe hyperglycemia on admission secondary to aspiration pneumonia/stress/infection and a dose of solumedrol 125mg x 1 * Pt initiated on IV insulin infusion 11/10-11/11. Pt transitioned to SQ basal bolus insulin regimen in the afternoon of 11/11. * Pt has received 47 units of SQ insulin + IV insulin infusion over the past 24hrs. * 40 units of basal insulin with Lantus (as 30 units AM + 10 units PM) * 7 units of prandial insulin with NovoLog * IV insulin infusion average rate ~1.5 units/hr * BSGs below goal range today at 89, 98, 83. Insulin doses need empirically reduced to prevent subsequent hypoglycemia PLAN FOR INPATIENT GLYCEMIC CONTROL: * Basal insulin: decrease dosing * Lantus 15 units SQ BID for a total daily dose of 30 units * Bolus insulin: loosen parameters * NovoLog per scale ACHS or Q6hrs while NPO * Goal Range: Low 140 mg/dL - High 180 mg/dL * Correction Factor: 25 mg/dL/unit * Nutritional / Prandial insulin per carb ratio of 1 unit per 8 grams CHO consumed
[2017-11-12] MEDS: SODIUM CHLORIDE 0.9% 1000ML 1,000 ML IV SCH (16:14)
[2017-11-12] MEDS: FAMOTIDINE 20 MG TAB PO SCH (20:56)
[2017-11-12] MEDS: TAMSULOSIN HCL 0.4 MG CAP PO SCH (20:56)
[2017-11-13] VITALS (9 sets, daily range): BP systolic 105–135; BP diastolic 43–72; PULSE 56–92; TEMP 36.8–37.3; O2SAT 90–98; Ht 185.4 cm; Wt 99.1 kg
[2017-11-13] MEDS: ACETAMINOPHEN 325 MG TAB PO PRN (00:38)
[2017-11-13] MEDS: ALBUT/IPRATROP 3MG/0.5MG NEB 3 ML VIAL INH SCH ×4 (01:53→19:12)
[2017-11-13] MEDS: DEXTROSE 50% 50 ML SYR IV PRN ×2 (02:25→07:35)
[2017-11-13] MEDS: HEPARIN SOD 5000 UNIT/0.5 ML CARP SQ SCH ×3 (05:01→20:52)
[2017-11-13] MEDS: ONDANSETRON INJ 2 MG/ML 2 ML VIAL IV PRN (07:55)
[2017-11-13 08:01] LABS: HEMATOCRIT 33.9 % (42-52); HEMOGLOBIN 9.7 g/dL (14.0-18.0); MEAN CELL VOLUME 80.1 fL (80-100); MEAN CORPUSCULAR HEMOGLOBIN 22.9 pg (25-34); MEAN CORPUSCULAR HGB CONC 28.6 g/dl (32-36); MEAN PLATELET VOLUME 9.3 fL (7.4-10.4); PLATELET COUNT 179 K/uL (130-400); RED CELL DISTRIBUTION WIDTH CV 19.9 % (11.5-14.5); RED CELL DISTRIBUTION WIDTH SD 58.4 fL (36.4-46.3)
[2017-11-13 08:06] LABS: ALBUMIN 2.5 gm/dl (3.4-5.0); CALCIUM 8.2 mg/dl (8.5-10.1); CREATININE 1.06 mg/dl (0.60-1.40); POTASSIUM 2.5 mmol/L (3.5-5.1)
[2017-11-13] MEDS: INSULIN ASPART 100 UNITS/ML 3 ML PEN SC SCH ×4 (08:25→20:47)
[2017-11-13 08:51] LABS: BASO % 0.2 %; BASO ABS # 0.01 K/uL (0-0.2); EOS % 5.3 %; EOS ABS # 0.25 K/uL (0-0.5); IG# 0.02 K/uL (0.00-0.02); LYMPH % 13.8 %; LYMPH ABS # 0.65 K/uL (1.2-3.4); MONO % 11.5 %; MONO ABS # 0.54 K/uL (0.11-0.59); NEUT % 68.8 %; NEUT ABS # 3.23 K/uL (1.4-6.5)
[2017-11-13] MEDS: POTASSIUM CHLORIDE 20 MEQ TABCR PO SCH ×3 (09:00→20:55)
[2017-11-13] MEDS: ARTIFICIAL TEARS OP SOLN OPB SCH ×2 (09:20→20:58)
[2017-11-13] MEDS: POTASSIUM CHLR 10 MEQ / WTR 100 ML IV SCH ×4 (09:20→12:42)
[2017-11-13] MEDS: D5NSS + 20MEQ KCL 1,000 ML IV SCH ×2 (09:20→22:02)
[2017-11-13] MEDS: CEFEPIME IV 1,000 MG in SYRINGE 0 ML IV SCH (10:03)
[2017-11-13] MEDS: ASPIRIN 81 MG CHEW PO SCH (10:03)
[2017-11-13] MEDS: CYANOCOBALAMIN 500 MCG TAB (VIT B-12) PO SCH (10:04)
[2017-11-13] MEDS: MAGNESIUM OXIDE 400 MG TAB PO SCH ×2 (10:04→20:55)
[2017-11-13] MEDS: FLUDROCORTISONE ACETATE 0.1 MG TAB PO SCH ×2 (10:05→20:56)
[2017-11-13] MEDS: BISACODYL 5 MG TABEC PO SCH ×2 (10:05→20:58)
[2017-11-13] MEDS: AZITHROMYCIN IV 250 MG in DEXTROSE 5% 250ML 250 ML IV SCH (10:05)
[2017-11-13] MEDS: POLYETHYLENE (MIRALAX) 17 GM PACK PO SCH ×2 (10:05→20:53)
[2017-11-13] MEDS: DOCUSATE SODIUM 100 MG CAP PO SCH ×2 (10:06→20:56)
[2017-11-13] MEDS: GUAIFENESIN 600 MG TABCR PO SCH ×2 (10:06→20:57)
[2017-11-13] MEDS: DULOXETINE (CYMBALTA) 30 MG CAP PO SCH (10:06)
[2017-11-13] MEDS: PANTOprazole SOD 40 MG TAB PO SCH (10:07)
[2017-11-13] MEDS ORDERED: BISACODYL 10 MG SUPP PR PRN (11:30)
--- NOTE | 2017-11-13 13:54 | Pharmacy Progress Note ---
Pharmacy Glycemic Short Note 2 Date of Service November 13, 2017. Test 11/12/17 16:53 11/12/17 20:26 11/13/17 02:04 11/13/17 02:25 Bedside Glucose 85 mg/dl (70-99) 121 mg/dl (70-99) 36 mg/dl (70-99) 166 mg/dl (70-99) Test 11/13/17 03:38 11/13/17 03:40 11/13/17 03:55 11/13/17 04:58 Bedside Glucose 89 mg/dl (70-99) 76 mg/dl (70-99) 95 mg/dl (70-99) 90 mg/dl (70-99) Test 11/13/17 07:23 11/13/17 07:32 11/13/17 07:53 11/13/17 11:18 Random Glucose 57 mg/dl (70-99) Bedside Glucose 57 mg/dl (70-99) 94 mg/dl (70-99) 84 mg/dl (70-99) ASSESSMENT: 11/13/17 * Patient received 32 units of insulin yesterday, unfortunately had a few hypoglycemic episodes overnight * He remains off IV steroids and did not have po intake this AM because he's been nauseous * D5NS + 20 K has been started at 80 cc/hr * I held the AM dose of Levemir * Upon review of previous admissions, we do not have any BSG data off steroids so I will estimate TDD based upon a reduction from yesterday's total requirements. Anticipate TDD ~15-20 units with the reduced po intake? 11/12/17 * 87yo T2DM male with severe hyperglycemia on admission secondary to aspiration pneumonia/stress/infection and a dose of solumedrol 125mg x 1 * Pt initiated on IV insulin infusion 11/10-11/11. Pt transitioned to SQ basal bolus insulin regimen in the afternoon of 11/11. * Pt has received 47 units of SQ insulin + IV insulin infusion over the past 24hrs. * 40 units of basal insulin with Lantus (as 30 units AM + 10 units PM) * 7 units of prandial insulin with NovoLog * IV insulin infusion average rate ~1.5 units/hr * BSGs below goal range today at 89, 98, 83. Insulin doses need empirically reduced to prevent subsequent hypoglycemia PLAN FOR INPATIENT GLYCEMIC CONTROL: * Basal insulin: decrease dosing * Lantus 0 units qHS for BSG < 140 * Lantus 10 units qHS for BSG 140-180 * Lantus 15 units qHS for BSG > 180 * Bolus insulin: loosen parameters * NovoLog per scale ACHS or Q6hrs while NPO * Goal Range: Low 140 mg/dL - High 180 mg/dL * Correction Factor: 25 mg/dL/unit * Nutritional / Prandial insulin per carb ratio of 1 unit per 15 grams CHO consumed
[2017-11-13] MEDS ORDERED: BOOST VANILLA PUDDING CUP PO SCH (17:00)
[2017-11-13] MEDS: BOOST GLUCOSE CONTROL PO SCH (17:38)
[2017-11-13] MEDS: INSULIN DETEMIR FLEXPEN/FLEX TOUCH 100 UNITS/ML 3ML SQ SCH (20:51)
[2017-11-13] MEDS: TAMSULOSIN HCL 0.4 MG CAP PO SCH (20:55)
[2017-11-13] MEDS: FAMOTIDINE 20 MG TAB PO SCH (20:56)
--- NOTE | 2017-11-13 21:06 | Progress Note ---
Subjective Date of Service: November 13, 2017. Subjective Pt evaluation today including: conversation w/ patient, physical exam, lab review, review of inpatient medication list Pain: abdominal discomfort PO Intake: poor, needs to move bowels Voiding: gomez catheter in place patient feels bloated and distended, abdomen tender, needs to have a bowel movement no success despite aggressive bowel regimen breathing is stable discussed thickened liquids, he will not be compliant after discharge reviewed labs, Cr is stable, K low at 2.5 some hypoglycemic episodes today, dextrose added to fluids Problem List Medical Problems: (1) Acute on chronic renal failure Status: Acute (2) Acute respiratory failure Status: Acute (3) Altered mental status Status: Acute (4) Cellulitis Status: Acute (5) Coagulopathy Status: Acute (6) Confusion Status: Acute (7) Confusion Status: Acute (8) COPD exacerbation Status: Acute (9) Fever Status: Acute (10) Fever Status: Acute (11) Forearm laceration Status: Acute (12) GI bleed Status: Acute (13) Hand pain Status: Acute (14) Hypoglycemia Status: Acute (15) Hypoglycemia Status: Acute (16) Hypoxia Status: Acute (17) Hypoxia Status: Acute (18) Influenza A Status: Acute (19) Lactic acidosis Status: Acute (20) Malfunction of Gomez catheter Status: Acute (21) Reactive airway disease Status: Acute (22) Respiratory distress Status: Acute (23) Right lower lobe pneumonia Status: Acute (24) Sepsis Status: Acute (25) Substernal chest pain Status: Acute (26) Substernal precordial chest pain Status: Acute (27) UTI (urinary tract infection) Status: Acute Review of Systems Constitutional: + weakness, + fatigue Respiratory: + cough, + dyspnea on exertion Abdomen: + constipation, + problem reported (poor appetite) Neurologic: + weakness, + balance problems All Other Systems: Reviewed and Negative Medications Current Inpatient Medications Medications (Trade) Dose Ordered Sig/Cole Route Start Time Stop Time Status Last Admin Dose Admin Aspirin (Aspirin Chew) 81 mg QAM PO 11/10/17 09:00 12/10/17 08:59 Future hold 11/13/17 10:03 81 MG Atenolol (Tenormin Tab) 12.5 mg QAM PO 11/10/17 09:00 12/10/17 08:59 Future hold 11/13/17 10:04 12.5 MG Bisacodyl (Dulcolax Tab) 5 mg BID PO 11/10/17 09:00 12/10/17 08:59 Future hold 11/13/17 10:05 5 MG Docusate Sodium (coLACE CAP) 100 mg BID PO 11/10/17 09:00 12/10/17 08:59 11/13/17 10:06 100 MG Duloxetine HCl (Cymbalta Cap) 30 mg DAILY PO 11/10/17 09:00 12/10/17 08:59 11/13/17 10:06 30 MG Famotidine (Pepcid Tab) 20 mg HS PO 11/10/17 21:00 12/10/17 20:59 Future hold 11/12/17 20:56 20 MG Fludrocortisone Acetate (Florinef Tab) 0.1 mg BID PO 11/10/17 09:00 12/10/17 08:59 Future hold 11/13/17 10:05 0.1 MG Furosemide (Lasix Tab) 40 mg BID17 PO 11/10/17 09:00 12/10/17 08:59 Future Hold Guaifenesin (Mucinex Contr Rel Tab) 1,200 mg Q12 PO 11/10/17 09:00 12/10/17 08:59 Future hold 11/13/17 10:06 1,200 MG Magnesium Oxide (Mag-Ox Tab) 400 mg BID PO 11/10/17 09:00 12/10/17 08:59 Future hold 11/13/17 10:04 400 MG Oxycodone HCl (Oxycontin Tab) 15 mg Q12 PO 11/10/17 09:00 11/24/17 08:59 Future Hold Simethicone (Mylicon Chew Tab) 80 mg QID PRN PO 11/09/17 23:00 12/09/17 22:59 Future hold 11/12/17 07:25 80 MG Tamsulosin HCl (Flomax Cap) 0.4 mg HS PO 11/10/17 21:00 12/10/17 20:59 Future hold 11/12/17 20:56 0.4 MG Cyanocobalamin (Vitamin B-12 Tab) 1,000 mcg QAM PO 11/10/17 09:00 12/10/17 08:59 Future hold 11/13/17 10:04 1,000 MCG Polyethylene (Miralax Powder Packet) 17 gm BID PO 11/10/17 09:00 12/10/17 08:59 Future hold 11/13/17 10:05 17 GM Artificial Tears (Artificial Tears) 1 drops BID OPB 11/10/17 09:00 12/10/17 08:59 11/13/17 09:20 1 DROPS Acetaminophen (Tylenol Tab) 650 mg Q4H PRN PO 11/09/17 23:30 12/09/17 23:29 Future hold 11/13/17 00:38 650 MG Lorazepam (Ativan Inj) 1 mg Q6H PRN IV 11/09/17 23:30 12/09/17 23:29 Nitroglycerin (Nitrostat Tab) 0.4 mg UD PRN SL 11/09/17 23:30 12/09/17 23:29 Ondansetron HCl (Zofran Inj) 4 mg Q6H PRN IV 11/09/17 23:30 12/09/17 23:29 11/13/17 07:55 4 MG Levalbuterol (Xopenex 1.25MG/ 3ML Neb) 1.25 mg Q4H PRN INH 11/09/17 23:30 12/09/17 23:29 Albuterol/ Ipratropium (Duoneb) 3 ml Q6R INH 11/10/17 03:00 12/10/17 02:59 11/13/17 19:12 3 ML Morphine Sulfate (MoRPHine SULFATE INJ) 4 mg Q2H PRN IV 11/09/17 23:30 11/23/17 23:29 11/11/17 10:22 4 MG Heparin Sodium (Porcine) (Heparin Sq 5000 Unit/0.5ml) 5,000 unit Q8H SQ 11/10/17 06:00 12/10/17 05:59 11/13/17 14:06 5,000 UNIT Miscellaneous Information (Consult Glycemic Management Pharmacy) 1 ea UD PRN N/A 11/10/17 06:17 12/10/17 06:16 Azithromycin 250 mg/Dextrose 252.5 ml @ 125 mls/hr DAILY IV 11/11/17 09:00 11/14/17 11:02 11/13/17 10:05 125 MLS/HR Cefepime HCl 1000 mg/Syringe 11 ml @ 5.5 mls/min DAILY IV 11/10/17 09:00 11/17/17 08:59 11/13/17 10:03 5.5 MLS/MIN Glucose (Glucose 40% Gel) 15-30 GRAMS 15 GRAMS... UD PRN PO 11/10/17 09:00 12/10/17 08:59 Glucose (Glucose Chew Tab) 4-8 Tablets 4 Tabl... UD PRN PO 11/10/17 09:00 12/10/17 08:59 Dextrose (Dextrose 50% 50ML Syringe) 25-50ML OF 50% DW IV FOR... UD PRN IV 11/10/17 09:00 12/10/17 08:59 11/13/17 07:35 25 ML Glucagon (Glucagon Inj) 1 mg UD PRN SQ 11/10/17 09:00 12/10/17 08:59 Dutasteride (Avodart) 0.5 mg DAILY PO 11/12/17 09:00 12/12/17 08:59 11/13/17 10:08 0.5 MG Metoprolol Tartrate (Lopressor Iv) 2.5 mg Q6 PRN IV 11/11/17 20:45 12/11/17 20:44 Pantoprazole Sodium (Protonix Tab) 40 mg QAM PO 11/12/17 09:00 12/12/17 08:59 11/13/17 10:07 40 MG Insulin Aspart (novoLOG ASPART) SLIDING SCALE ACHS SC 11/12/17 08:45 12/12/17 08:44 11/13/17 17:39 2 UNITS Carbohydrates (Carbohydrates For Hypoglycemia) 15-30 GRAMS 15 grams if BSG 54-69... UD PRN PO 11/12/17 08:45 12/12/17 08:44 Magnesium Hydroxide (Milk Of Magnesia Susp) 30 ml Q6H PRN PO 11/12/17 12:00 12/12/17 11:59 Potassium Chloride (Klor-Con Tab) 40 meq TID PO 11/13/17 09:00 12/12/17 08:59 Potassium Chloride/Dextrose/ Sod Cl 1,000 ml @ 80 mls/hr [id number] IV 11/13/17 08:45 12/13/17 08:44 11/13/17 09:20 80 MLS/HR Bisacodyl (Dulcolax Supp) 10 mg DAILY PRN UT 11/13/17 11:30 12/13/17 11:29 Insulin Detemir (Levemir Flexpen/ FlexTouch) see protocol text HS SQ 11/13/17 21:00 12/13/17 20:59 Enteral Nutritional Formula (Boost Pudding) 1 cup DAILY PO 11/14/17 09:00 12/14/17 08:59 Enteral Nutritional Formula (Boost Glucose Control) 1 can BIDM PO 11/13/17 17:00 12/13/17 16:59 11/13/17 17:38 1 CAN Lorazepam 1 mg/ Syringe 1 ml @ 1 mls/min Q6H PRN IV 11/13/17 20:15 12/13/17 20:14 Objective Vital Signs Date Time Temp Pulse Resp B/P (MAP) Pulse Ox O2 Delivery O2 Flow Rate FiO2 11/13/17 19:13 81 22 94 Nasal Cannula 2.0 11/13/17 16:16 37.1 86 20 108/43 (64) 90 Nasal Cannula 2.0 11/13/17 16:00 Nasal Cannula 2.0 11/13/17 14:11 86 22 95 Nasal Cannula 2.0 11/13/17 08:00 98 Nasal Cannula 2.0 30 11/13/17 07:19 36.9 85 20 127/62 (83) 98 11/13/17 07:09 84 22 93 Nasal Cannula 2.0 11/13/17 01:56 56 22 96 Nasal Cannula 2.0 11/13/17 01:08 36.8 92 18 105/63 (77) 90 Nasal Cannula 2.0 11/12/17 23:45 95 Nasal Cannula 2.0 Physical Exam General Appearance: no apparent distress, + obese Eyes: normal inspection, EOMI, sclerae normal ENT: normal ENT inspection, hearing grossly normal, pharynx normal Neck: supple, no adenopathy, no JVD, trachea midline Respiratory/Chest: chest non-tender, lungs clear, no respiratory distress, no accessory muscle use, + decreased breath sounds Cardiovascular: regular rate, rhythm, no edema, no gallop, no JVD, no murmur Abdomen: no organomegaly, + abnormal bowel sounds (hypoactive), + distended, + tenderness Extremities: normal range of motion, non-tender, normal inspection, no pedal edema, no calf tenderness, pelvis stable 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: 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 manager II-XII nml as tested, alert, normal mood/affect, oriented x 3, + motor weakness Skin: normal color, warm/dry, no rash Laboratory Results Last 24 Hours Test 11/13/17 02:04 11/13/17 02:25 11/13/17 03:38 11/13/17 03:40 Bedside Glucose 36 mg/dl 166 mg/dl 89 mg/dl 76 mg/dl Test 11/13/17 03:55 11/13/17 04:58 11/13/17 07:23 11/13/17 07:32 Bedside Glucose 95 mg/dl 90 mg/dl 57 mg/dl White Blood Count 4.70 K/uL Red Blood Count 4.23 M/uL Hemoglobin 9.7 g/dL Hematocrit 33.9 % Mean Corpuscular Volume 80.1 fL Mean Corpuscular Hemoglobin 22.9 pg Mean Corpuscular Hemoglobin Concent 28.6 g/dl Platelet Count 179 K/uL Mean Platelet Volume 9.3 fL Neutrophils (%) (Auto) 68.8 % Lymphocytes (%) (Auto) 13.8 % Monocytes (%) (Auto) 11.5 % Eosinophils (%) (Auto) 5.3 % Basophils (%) (Auto) 0.2 % Neutrophils # (Auto) 3.23 K/uL Lymphocytes # (Auto) 0.65 K/uL Monocytes # (Auto) 0.54 K/uL Eosinophils # (Auto) 0.25 K/uL Basophils # (Auto) 0.01 K/uL RDW Standard Deviation 58.4 fL RDW Coefficient of Variation 19.9 % Immature Granulocyte % (Auto) 0.4 % Immature Granulocyte # (Auto) 0.02 K/uL Polychromasia 1+ Hypochromasia PRESENT Poikilocytosis PRESENT Anisocytosis PRESENT Microcytosis PRESENT Sodium Level 140 mmol/L Potassium Level 2.5 mmol/L Chloride Level 101 mmol/L Carbon Dioxide Level 34 mmol/L Anion Gap 5.0 mmol/L Blood Urea Nitrogen 23 mg/dl Creatinine 1.06 mg/dl Est Creatinine Clear Calc Drug Dose 59.9 ml/min Estimated GFR () 72.8 Estimated GFR (Non- 62.8 BUN/Creatinine Ratio 21.2 Random Glucose 57 mg/dl Calcium Level 8.2 mg/dl Magnesium Level 2.3 mg/dl Total Bilirubin 0.5 mg/dl Direct Bilirubin 0.1 mg/dl Aspartate Amino Transf (AST/SGOT) 16 U/L Alanine Aminotransferase (ALT/SGPT) 16 U/L Alkaline Phosphatase 67 U/L Total Protein 6.0 gm/dl Albumin 2.5 gm/dl Test 11/13/17 07:53 11/13/17 11:18 11/13/17 16:50 11/13/17 20:07 Bedside Glucose 94 mg/dl 84 mg/dl 132 mg/dl 168 mg/dl Assessment and Plan 86 y/o M Admitted multiple times this yr for pneumonia due to aspiration and CHF exacerbation again admitted because of aspiration pneumonia, An initial CXR a new RLL infiltrate. He required BiPAP to maintain an adequate saturation at the time of admission. Past medical history COPD, combined CHF, CAD, CKD 3-4, DM, chronic aspiration with recurrent PNM, adrenal insufficiency, chronic Gomez w/recurrent UTIs, history of DVT, prison resident Aspiration pneumonia with sepsis POA: much improved in initial 24 hours continues to breath well on 2L continue Cefepime and Azithromycin for 5-7 days total, today is day 4 speech evaluation, recommend honey thick liquids, patient will not comply afebrile, WBC normal, vitals stable discussed with patient that he will continue to aspirate and develop pneumonia, still refuses honey thick liquids will give boost pudding to increase nutrition Acute hypoxic respiratory failure on chronic hypoxic failure increased work of breathing, distress, increased hypoxia on admission now back to 2L NC which is baseline, breathing comfortably with no distress Chronic diastolic and systolic HF euvolemic echo on 10/16 showed EF of 50-55% monitor volume status closely, prone to hypervolemia continue Lasix and Metolazone continue NS at 50cc/hr to make sure he is getting fluids, refusing to drink thickened fluids Possible acute on chronic CKD III, creatinine stable at 1.06 today, continue to monitor Constipation, distension distended stomach on KUB still no BM today, continue Miralax, Milk of Magnesia, Dulcolax suppository will try enema tomorrow, can also try magnesium citrate tomorrow increase activity Hypokalemia: 2.5 today, not tolerating PO replacement will give 40mEq in K riders add 20mEq to IV fluids DM: hypoglycemic episodes this AM due to poor intake holding Levemir, holding Novolog Dextrose added to IV fluids, encouraging PO intake CAD - cont ASA, statin, Coreg Anemia - Hb is stable Adrenal insufficiency: resume Florinef now that he can take pills Do not resuscitation GI prophylaxis covered, heparin prophylaxis will go to [facility] when medically stable Continued [facility] stay due to: multiple IV medications needed Discharge planning: uncertain
--- NOTE | 2017-11-13 21:57 | Progress Note ---
Post ICU Progress Note Date & Time November 13, 2017 at 21:57 Vital Signs Vital Signs Past 12 Hours Date Time Temp Pulse Resp B/P (MAP) Pulse Ox O2 Delivery O2 Flow Rate FiO2 11/13/17 19:13 81 22 94 Nasal Cannula 2.0 11/13/17 16:16 37.1 86 20 108/43 (64) 90 Nasal Cannula 2.0 11/13/17 16:00 Nasal Cannula 2.0 11/13/17 14:11 86 22 95 Nasal Cannula 2.0 Notes Mental Status: see Notes Nausea / Vomiting: adequately controlled Pain: adequately controlled Airway Patency, RR, SpO2: stable & adequate BP & HR: stable & adequate Patient is an 87-year-old male who was initially admitted to the ICU with acute hypoxic respiratory failure in the setting of aspiration pneumonia. He recovered well with noninvasive ventilatory techniques as well as with aggressive antibiotic regime and fluid resuscitation. Eventually, the patient was downgraded from the ICU and able to tolerate nasal cannula alone without issue. On evaluation tonight, the patient is resting comfortably and sleeping. I did not wish to wake the patient for evaluation at this point. No concerns per nursing staff notes. Consider outpatient follow up in 1 to 2 weeks with: PCP Repeat imaging needed: CXR Follow up cultures: None Reviewed progress notes, labs, and inpatient medication list Continue current management Additional recommendations: Agree with enforcement of liquid consistency. Thank you for allowing us to participate in the care of this patient. At this time, Critical Care Services will sign off on this case. Please feel free to reconsult as needed.
[2017-11-13] MEDS: LORAZEPAM INJ 1 MG in SYRINGE 0.5 ML IV PRN (23:31)
[2017-11-14] VITALS (7 sets, daily range): BP systolic 122–167; BP diastolic 73–88; PULSE 74–92; TEMP 36.4–37.8; O2SAT 85–99
[2017-11-14] MEDS: ALBUT/IPRATROP 3MG/0.5MG NEB 3 ML VIAL INH SCH ×4 (01:50→20:40)
[2017-11-14] MEDS: HEPARIN SOD 5000 UNIT/0.5 ML CARP SQ SCH ×3 (06:09→22:09)
[2017-11-14 08:20] LABS: ALBUMIN 2.7 gm/dl (3.4-5.0); CALCIUM 8.4 mg/dl (8.5-10.1); CREATININE 1.24 mg/dl (0.60-1.40); POTASSIUM 2.9 mmol/L (3.5-5.1)
[2017-11-14 08:24] LABS: TOTAL PROTEIN 6.7 gm/dl (6.4-8.2)
[2017-11-14 08:29] LABS: HEMATOCRIT 36.8 % (42-52); HEMOGLOBIN 10.5 g/dL (14.0-18.0); MEAN CELL VOLUME 79.8 fL (80-100); MEAN CORPUSCULAR HEMOGLOBIN 22.8 pg (25-34); MEAN CORPUSCULAR HGB CONC 28.5 g/dl (32-36); MEAN PLATELET VOLUME 9.9 fL (7.4-10.4); PLATELET COUNT 195 K/uL (130-400); RED CELL DISTRIBUTION WIDTH CV 19.7 % (11.5-14.5); RED CELL DISTRIBUTION WIDTH SD 57.8 fL (36.4-46.3); WHITE BLOOD COUNT 5.57 K/uL (4.8-10.8)
[2017-11-14 08:30] LABS: BASO % 0.2 %; BASO ABS # 0.01 K/uL (0-0.2); EOS % 3.9 %; EOS ABS # 0.22 K/uL (0-0.5); IG# 0.04 K/uL (0.00-0.02); LYMPH % 16.2 %
[2017-11-14] MEDS: BISACODYL 5 MG TABEC PO SCH ×2 (08:59→22:13)
[2017-11-14] MEDS: POTASSIUM CHLORIDE 20 MEQ TABCR PO SCH ×3 (09:00→22:01)
[2017-11-14] MEDS: AZITHROMYCIN IV 250 MG in DEXTROSE 5% 250ML 250 ML IV SCH (09:01)
[2017-11-14] MEDS: POLYETHYLENE (MIRALAX) 17 GM PACK PO SCH ×2 (09:02→22:01)
[2017-11-14] MEDS: ARTIFICIAL TEARS OP SOLN OPB SCH ×2 (09:02→22:00)
[2017-11-14] MEDS: PANTOprazole SOD 40 MG TAB PO SCH (09:02)
[2017-11-14] MEDS: GUAIFENESIN 600 MG TABCR PO SCH ×2 (09:02→22:00)
[2017-11-14] MEDS: DOCUSATE SODIUM 100 MG CAP PO SCH ×2 (09:02→22:03)
[2017-11-14] MEDS: DULOXETINE (CYMBALTA) 30 MG CAP PO SCH (09:02)
[2017-11-14] MEDS: MAGNESIUM OXIDE 400 MG TAB PO SCH ×2 (09:03→22:02)
[2017-11-14] MEDS: FLUDROCORTISONE ACETATE 0.1 MG TAB PO SCH ×2 (09:03→22:01)
[2017-11-14] MEDS: ASPIRIN 81 MG CHEW PO SCH (09:04)
[2017-11-14] MEDS: CYANOCOBALAMIN 500 MCG TAB (VIT B-12) PO SCH (09:04)
[2017-11-14] MEDS: BOOST VANILLA PUDDING CUP PO SCH (09:05)
[2017-11-14] MEDS: INSULIN ASPART 100 UNITS/ML 3 ML PEN SC SCH ×5 (09:06→21:00)
[2017-11-14] MEDS: BOOST GLUCOSE CONTROL PO SCH ×2 (09:06→17:00)
[2017-11-14] MEDS: POTASSIUM CHLR 10 MEQ / WTR 100 ML IV SCH ×2 (09:30→11:16)
[2017-11-14] MEDS: CEFEPIME IV 1,000 MG in SYRINGE 0 ML IV SCH (09:39)
[2017-11-14] MEDS: D5NSS + 20MEQ KCL 1,000 ML IV SCH (10:36)
--- NOTE | 2017-11-14 10:55 | Pharmacy Progress Note ---
Pharmacy Glycemic Short Note 2 Date of Service November 14, 2017. Test 11/13/17 11:18 11/13/17 16:50 11/13/17 20:07 11/14/17 07:20 Bedside Glucose 84 mg/dl (70-99) 132 mg/dl (70-99) 168 mg/dl (70-99) Random Glucose 91 mg/dl (70-99) Test 11/14/17 07:43 Bedside Glucose 128 mg/dl (70-99) ASSESSMENT: 11/14/17 * Patient received only 12 units of insulin yesterday * Dextrose IVFs continue. Boost Glucose Control w/ yary flavoring and Boost pudding have been added to help increase po intake. * Will continue with reduce Levemir dose. Expect that dextrose IVFs will be d/c 'd once BSGs increase to above goal. 11/13/17 * Patient received 32 units of insulin yesterday, unfortunately had a few hypoglycemic episodes overnight * He remains off IV steroids and did not have po intake this AM because he's been nauseous * D5NS + 20 K has been started at 80 cc/hr * I held the AM dose of Levemir * Upon review of previous admissions, we do not have any BSG data off steroids so I will estimate TDD based upon a reduction from yesterday's total requirements. Anticipate TDD ~15-20 units with the reduced po intake? 11/12/17 * 87yo T2DM male with severe hyperglycemia on admission secondary to aspiration pneumonia/stress/infection and a dose of solumedrol 125mg x 1 * Pt initiated on IV insulin infusion 11/10-11/11. Pt transitioned to SQ basal bolus insulin regimen in the afternoon of 11/11. * Pt has received 47 units of SQ insulin + IV insulin infusion over the past 24hrs. * 40 units of basal insulin with Lantus (as 30 units AM + 10 units PM) * 7 units of prandial insulin with NovoLog * IV insulin infusion average rate ~1.5 units/hr * BSGs below goal range today at 89, 98, 83. Insulin doses need empirically reduced to prevent subsequent hypoglycemia PLAN FOR INPATIENT GLYCEMIC CONTROL: * Basal insulin: no change * Lantus 0 units qHS for BSG < 140 * Lantus 10 units qHS for BSG 140-180 * Lantus 15 units qHS for BSG > 180 * Bolus insulin: no change * NovoLog per scale ACHS or Q6hrs while NPO * Goal Range: Low 140 mg/dL - High 180 mg/dL * Correction Factor: 25 mg/dL/unit * Nutritional / Prandial insulin per carb ratio of 1 unit per 15 grams CHO consumed
--- NOTE | 2017-11-14 15:17 | Progress Note ---
Subjective Date of Service: November 14, 2017. Subjective Pt evaluation today including: conversation w/ patient, physical exam, lab review, review of inpatient medication list Pain: no pain PO Intake: improved today Voiding: gomez catheter in place patient feeling better today, had two BM yesterday, both large, abdomen less distended and eating more breathing is stable, feels like it is at baseline increasing activity, PT/OT ordered reviewed labs, CBC stable, K low at 2.9, Cr stable at 1.24 Problem List Medical Problems: (1) Acute on chronic renal failure Status: Acute (2) Acute respiratory failure Status: Acute (3) Altered mental status Status: Acute (4) Cellulitis Status: Acute (5) Coagulopathy Status: Acute (6) Confusion Status: Acute (7) Confusion Status: Acute (8) COPD exacerbation Status: Acute (9) Fever Status: Acute (10) Fever Status: Acute (11) Forearm laceration Status: Acute (12) GI bleed Status: Acute (13) Hand pain Status: Acute (14) Hypoglycemia Status: Acute (15) Hypoglycemia Status: Acute (16) Hypoxia Status: Acute (17) Hypoxia Status: Acute (18) Influenza A Status: Acute (19) Lactic acidosis Status: Acute (20) Malfunction of Gomez catheter Status: Acute (21) Reactive airway disease Status: Acute (22) Respiratory distress Status: Acute (23) Right lower lobe pneumonia Status: Acute (24) Sepsis Status: Acute (25) Substernal chest pain Status: Acute (26) Substernal precordial chest pain Status: Acute (27) UTI (urinary tract infection) Status: Acute Review of Systems Constitutional: + weakness, + fatigue Respiratory: + dyspnea on exertion Abdomen: + constipation (resolving) All Other Systems: Reviewed and Negative Medications Current Inpatient Medications Medications (Trade) Dose Ordered Sig/Cole Route Start Time Stop Time Status Last Admin Dose Admin Aspirin (Aspirin Chew) 81 mg QAM PO 11/10/17 09:00 12/10/17 08:59 Future hold 11/14/17 09:04 81 MG Atenolol (Tenormin Tab) 12.5 mg QAM PO 11/10/17 09:00 12/10/17 08:59 Future hold 11/14/17 09:03 12.5 MG Bisacodyl (Dulcolax Tab) 5 mg BID PO 11/10/17 09:00 12/10/17 08:59 Future hold 11/14/17 08:59 5 MG Docusate Sodium (coLACE CAP) 100 mg BID PO 11/10/17 09:00 12/10/17 08:59 11/14/17 09:02 100 MG Duloxetine HCl (Cymbalta Cap) 30 mg DAILY PO 11/10/17 09:00 12/10/17 08:59 11/14/17 09:02 30 MG Famotidine (Pepcid Tab) 20 mg HS PO 11/10/17 21:00 12/10/17 20:59 Future hold 11/13/17 20:56 20 MG Fludrocortisone Acetate (Florinef Tab) 0.1 mg BID PO 11/10/17 09:00 12/10/17 08:59 Future hold 11/14/17 09:03 0.1 MG Furosemide (Lasix Tab) 40 mg BID17 PO 11/10/17 09:00 12/10/17 08:59 Future Hold Guaifenesin (Mucinex Contr Rel Tab) 1,200 mg Q12 PO 11/10/17 09:00 12/10/17 08:59 Future hold 11/14/17 09:02 1,200 MG Magnesium Oxide (Mag-Ox Tab) 400 mg BID PO 11/10/17 09:00 12/10/17 08:59 Future hold 11/14/17 09:03 400 MG Oxycodone HCl (Oxycontin Tab) 15 mg Q12 PO 11/10/17 09:00 11/24/17 08:59 Future Hold Simethicone (Mylicon Chew Tab) 80 mg QID PRN PO 11/09/17 23:00 12/09/17 22:59 Future hold 11/12/17 07:25 80 MG Tamsulosin HCl (Flomax Cap) 0.4 mg HS PO 11/10/17 21:00 12/10/17 20:59 Future hold 11/13/17 20:55 0.4 MG Cyanocobalamin (Vitamin B-12 Tab) 1,000 mcg QAM PO 11/10/17 09:00 12/10/17 08:59 Future hold 11/14/17 09:04 1,000 MCG Polyethylene (Miralax Powder Packet) 17 gm BID PO 4/29/18 09:00 12/10/17 08:59 Future hold 11/14/17 09:02 17 GM Artificial Tears (Artificial Tears) 1 drops BID OPB 11/10/17 09:00 12/10/17 08:59 11/14/17 09:02 1 DROPS Acetaminophen (Tylenol Tab) 650 mg Q4H PRN PO 11/09/17 23:30 12/09/17 23:29 Future hold 11/13/17 00:38 650 MG Lorazepam (Ativan Inj) 1 mg Q6H PRN IV 11/09/17 23:30 12/09/17 23:29 Nitroglycerin (Nitrostat Tab) 0.4 mg UD PRN SL 11/09/17 23:30 12/09/17 23:29 Ondansetron HCl (Zofran Inj) 4 mg Q6H PRN IV 11/09/17 23:30 12/09/17 23:29 11/13/17 07:55 4 MG Levalbuterol (Xopenex 1.25MG/ 3ML Neb) 1.25 mg Q4H PRN INH 11/09/17 23:30 12/09/17 23:29 Albuterol/ Ipratropium (Duoneb) 3 ml Q6R INH 11/10/17 03:00 12/10/17 02:59 11/14/17 14:10 3 ML Morphine Sulfate (MoRPHine SULFATE INJ) 4 mg Q2H PRN IV 11/09/17 23:30 11/23/17 23:29 11/11/17 10:22 4 MG Heparin Sodium (Porcine) (Heparin Sq 5000 Unit/0.5ml) 5,000 unit Q8H SQ 11/10/17 06:00 12/10/17 05:59 11/14/17 13:29 5,000 UNIT Miscellaneous Information (Consult Glycemic Management Pharmacy) 1 ea UD PRN N/A 11/10/17 06:17 12/10/17 06:16 Glucose (Glucose 40% Gel) 15-30 GRAMS 15 GRAMS... UD PRN PO 11/10/17 09:00 12/10/17 08:59 Glucose (Glucose Chew Tab) 4-8 Tablets 4 Tabl... UD PRN PO 11/10/17 09:00 12/10/17 08:59 Dextrose (Dextrose 50% 50ML Syringe) 25-50ML OF 50% DW IV FOR... UD PRN IV 11/10/17 09:00 12/10/17 08:59 11/13/17 07:35 25 ML Glucagon (Glucagon Inj) 1 mg UD PRN SQ 11/10/17 09:00 12/10/17 08:59 Dutasteride (Avodart) 0.5 mg DAILY PO 11/12/17 09:00 12/12/17 08:59 11/14/17 09:05 0.5 MG Metoprolol Tartrate (Lopressor Iv) 2.5 mg Q6 PRN IV 11/11/17 20:45 12/11/17 20:44 Pantoprazole Sodium (Protonix Tab) 40 mg QAM PO 11/12/17 09:00 12/12/17 08:59 11/14/17 09:02 40 MG Insulin Aspart (novoLOG ASPART) SLIDING SCALE ACHS SC 11/12/17 08:45 12/12/17 08:44 11/14/17 12:32 1 UNITS Carbohydrates (Carbohydrates For Hypoglycemia) 15-30 GRAMS 15 grams if BSG 54-69... UD PRN PO 11/12/17 08:45 12/12/17 08:44 Magnesium Hydroxide (Milk Of Magnesia Susp) 30 ml Q6H PRN PO 11/12/17 12:00 12/12/17 11:59 Potassium Chloride (Klor-Con Tab) 40 meq TID PO 11/13/17 09:00 12/12/17 08:59 11/14/17 13:27 40 MEQ Potassium Chloride/Dextrose/ Sod Cl 1,000 ml @ 80 mls/hr [id number] IV 11/13/17 08:45 12/13/17 08:44 11/14/17 10:36 80 MLS/HR Bisacodyl (Dulcolax Supp) 10 mg DAILY PRN [place] 11/13/17 11:30 12/13/17 11:29 Insulin Detemir (Levemir Flexpen/ FlexTouch) see protocol text HS SQ 11/13/17 21:00 12/13/17 20:59 11/13/17 20:51 10 UNITS Enteral Nutritional Formula (Boost Pudding) 1 cup DAILY PO 11/14/17 09:00 12/14/17 08:59 11/14/17 09:05 1 CUP Enteral Nutritional Formula (Boost Glucose Control) 1 can BIDM PO 11/13/17 17:00 12/13/17 16:59 11/14/17 09:06 1 CAN Lorazepam 1 mg/ Syringe 1 ml @ 1 mls/min Q6H PRN IV 11/13/17 20:15 12/13/17 20:14 11/13/17 23:31 1 MLS/MIN Cefdinir (Omnicef Cap) 300 mg Q12 PO 11/15/17 09:00 11/22/17 08:59 UNV Objective Vital Signs Date Time Temp Pulse Resp B/P (MAP) Pulse Ox O2 Delivery O2 Flow Rate FiO2 11/14/17 14:12 74 18 93 Nasal Cannula 2.0 11/14/17 07:27 37.5 91 16 128/80 (96) 99 11/14/17 07:13 92 18 85 Room Air 11/14/17 01:52 77 18 91 Nasal Cannula 2.0 11/14/17 00:07 Nasal Cannula 2.0 11/13/17 23:04 37.3 88 19 135/72 (93) 93 Nasal Cannula 2.0 11/13/17 19:13 81 22 94 Nasal Cannula 2.0 11/13/17 16:16 37.1 86 20 108/43 (64) 90 Nasal Cannula 2.0 11/13/17 16:00 Nasal Cannula 2.0 Physical Exam General Appearance: WD/WN, no apparent distress Eyes: normal inspection, EOMI, sclerae normal ENT: normal ENT inspection, hearing grossly normal, pharynx normal Neck: supple, no adenopathy, no JVD, trachea midline Respiratory/Chest: chest non-tender, lungs clear, no respiratory distress, no accessory muscle use, + decreased breath sounds Cardiovascular: regular rate, rhythm, no edema, no gallop, no JVD, no murmur Abdomen: normal bowel sounds, non tender, soft, no organomegaly Extremities: normal range of motion, non-tender, normal inspection, no pedal edema, no calf tenderness, pelvis stable 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: chore worker II-XII nml as tested, alert, normal mood/affect, oriented x 3, + motor weakness Skin: normal color, warm/dry, no rash Laboratory Results Last 24 Hours Test 11/13/17 16:50 11/13/17 20:07 11/14/17 07:20 11/14/17 07:43 Bedside Glucose 132 mg/dl 168 mg/dl 128 mg/dl White Blood Count 5.57 K/uL Red Blood Count 4.61 M/uL Hemoglobin 10.5 g/dL Hematocrit 36.8 % Mean Corpuscular Volume 79.8 fL Mean Corpuscular Hemoglobin 22.8 pg Mean Corpuscular Hemoglobin Concent 28.5 g/dl Platelet Count 195 K/uL Mean Platelet Volume 9.9 fL Neutrophils (%) (Auto) 70.0 % Lymphocytes (%) (Auto) 16.2 % Monocytes (%) (Auto) 9.0 % Eosinophils (%) (Auto) 3.9 % Basophils (%) (Auto) 0.2 % Neutrophils # (Auto) 3.90 K/uL Lymphocytes # (Auto) 0.90 K/uL Monocytes # (Auto) 0.50 K/uL Eosinophils # (Auto) 0.22 K/uL Basophils # (Auto) 0.01 K/uL RDW Standard Deviation 57.8 fL RDW Coefficient of Variation 19.7 % Immature Granulocyte % (Auto) 0.7 % Immature Granulocyte # (Auto) 0.04 K/uL Sodium Level 140 mmol/L Potassium Level 2.9 mmol/L Chloride Level 101 mmol/L Carbon Dioxide Level 34 mmol/L Anion Gap 5.0 mmol/L Blood Urea Nitrogen 14 mg/dl Creatinine 1.24 mg/dl Est Creatinine Clear Calc Drug Dose 51.2 ml/min Estimated GFR () 60.2 Estimated GFR (Non- 51.9 BUN/Creatinine Ratio 11.5 Random Glucose 91 mg/dl Calcium Level 8.4 mg/dl Magnesium Level 2.4 mg/dl Total Bilirubin 0.6 mg/dl Direct Bilirubin 0.1 mg/dl Aspartate Amino Transf (AST/SGOT) 20 U/L Alanine Aminotransferase (ALT/SGPT) 19 U/L Alkaline Phosphatase 83 U/L Total Protein 6.7 gm/dl Albumin 2.7 gm/dl Test 11/14/17 11:19 Bedside Glucose 172 mg/dl Assessment and Plan 86 y/o M Admitted multiple times this yr for pneumonia due to aspiration and CHF exacerbation again admitted because of aspiration pneumonia, An initial CXR a new RLL infiltrate. He required BiPAP to maintain an adequate saturation at the time of admission. Past medical history COPD, combined CHF, CAD, CKD 3-4, DM, chronic aspiration with recurrent PNM, adrenal insufficiency, chronic Gomez w/recurrent UTIs, history of DVT, [facility] resident Aspiration pneumonia with sepsis POA: much improved in initial 24 hours continues to breath well on 2L which is baseline treated initially with Cefepime and Azithromycin for 5 days Azithromycin complete, change to Cefdinir PO for 2 more days speech evaluation, recommend honey thick liquids, patient will not comply afebrile, WBC normal, vitals stable discussed with patient that he will continue to aspirate and develop pneumonia, still refuses honey thick liquids will give boost pudding to increase nutrition, tolerating this Acute hypoxic respiratory failure on chronic hypoxic failure increased work of breathing, distress, increased hypoxia on admission now back to 2L NC which is baseline, breathing comfortably with no distress lungs clear Chronic diastolic and systolic HF euvolemic echo on 10/16 showed EF of 50-55% monitor volume status closely, prone to hypervolemia continue Lasix and Metolazone no further IV fluids, PO intake adequate now after constipation resolved Possible acute on chronic CKD III, creatinine stable at 1.2 today, continue to monitor adequate UO Constipation, distension distended stomach on KUB on 11/12 had two BM yesterday, less distension today, eating better continue bowel regimen, prone to constipation Hypokalemia: 2.9 today, he is now tolerating PO replacement will give 20mEq in K riders today stop fluids today repeat labs tomorrow DM: hypoglycemic episodes yesterday AM due to poor intake holding Levemir, holding Novolog Dextrose added to IV fluids, encouraging PO intake no further episodes CAD - cont ASA, statin, Coreg Anemia - Hb is stable Adrenal insufficiency: resume Florinef now that he can take pills Do not resuscitation GI prophylaxis covered, heparin prophylaxis will go to [facility] when medically stable, possibly as early as tomorrow, will get PT/OT evaluations Continued [facility] stay due to: multiple IV medications needed Discharge planning: uncertain
[2017-11-14] MEDS: FUROSEMIDE 40 MG TAB PO SCH (17:44)
[2017-11-14] MEDS: TAMSULOSIN HCL 0.4 MG CAP PO SCH (22:02)
[2017-11-14] MEDS: FAMOTIDINE 20 MG TAB PO SCH (22:03)
[2017-11-14] MEDS: INSULIN DETEMIR FLEXPEN/FLEX TOUCH 100 UNITS/ML 3ML SQ SCH (22:08)
[2017-11-14] MEDS: LORAZEPAM INJ 1 MG in SYRINGE 0.5 ML IV PRN (22:11)
[2017-11-15] VITALS (10 sets, daily range): BP systolic 106–134; BP diastolic 70; PULSE 72–104; TEMP 36.9–38.3; O2SAT 90–99
[2017-11-15] MEDS: ALBUT/IPRATROP 3MG/0.5MG NEB 3 ML VIAL INH SCH ×4 (02:01→21:02)
[2017-11-15] MEDS: HEPARIN SOD 5000 UNIT/0.5 ML CARP SQ SCH ×3 (06:12→21:41)
[2017-11-15] MEDS: INSULIN ASPART 100 UNITS/ML 3 ML PEN SC SCH ×4 (06:30→21:37)
[2017-11-15] MEDS ORDERED: CEFDINIR 300 MG CAP PO SCH (09:00)
[2017-11-15] MEDS: ARTIFICIAL TEARS OP SOLN OPB SCH ×2 (09:00→21:37)
[2017-11-15] MEDS: BOOST GLUCOSE CONTROL PO SCH ×2 (09:07→17:00)
[2017-11-15] MEDS: BOOST VANILLA PUDDING CUP PO SCH (09:08)
[2017-11-15] MEDS: DULOXETINE (CYMBALTA) 30 MG CAP PO SCH (09:09)
[2017-11-15] MEDS: PANTOprazole SOD 40 MG TAB PO SCH (09:09)
[2017-11-15] MEDS: DOCUSATE SODIUM 100 MG CAP PO SCH ×2 (09:09→20:33)
[2017-11-15] MEDS: POTASSIUM CHLORIDE 20 MEQ TABCR PO SCH ×3 (09:09→20:33)
[2017-11-15] MEDS: MAGNESIUM OXIDE 400 MG TAB PO SCH ×2 (09:10→20:30)
[2017-11-15] MEDS: GUAIFENESIN 600 MG TABCR PO SCH ×2 (09:10→20:33)
[2017-11-15] MEDS: CYANOCOBALAMIN 500 MCG TAB (VIT B-12) PO SCH (09:11)
[2017-11-15] MEDS: FLUDROCORTISONE ACETATE 0.1 MG TAB PO SCH ×2 (09:11→21:38)
[2017-11-15] MEDS: POLYETHYLENE (MIRALAX) 17 GM PACK PO SCH ×2 (09:12→20:30)
[2017-11-15] MEDS: FUROSEMIDE 40 MG TAB PO SCH ×2 (09:12→17:20)
[2017-11-15] MEDS: ASPIRIN 81 MG CHEW PO SCH (09:24)
[2017-11-15] MEDS: BISACODYL 5 MG TABEC PO SCH ×2 (09:24→21:37)
[2017-11-15 09:27] LABS: CALCIUM 8.8 mg/dl (8.5-10.1); CREATININE 1.27 mg/dl (0.60-1.40); POTASSIUM 2.6 mmol/L (3.5-5.1)
[2017-11-15] MEDS: ACETAMINOPHEN 325 MG TAB PO PRN (09:29)
[2017-11-15 09:30] LABS: BASO % 0.4 %; BASO ABS # 0.03 K/uL (0-0.2); EOS % 3.9 %; EOS ABS # 0.27 K/uL (0-0.5); HEMATOCRIT 38.4 % (42-52); HEMOGLOBIN 11.2 g/dL (14.0-18.0); IG# 0.06 K/uL (0.00-0.02); LYMPH % 13.5 %; LYMPH ABS # 0.94 K/uL (1.2-3.4); MEAN CELL VOLUME 78.9 fL (80-100); MEAN CORPUSCULAR HGB CONC 29.2 g/dl (32-36); MEAN PLATELET VOLUME 10.3 fL (7.4-10.4); MONO % 11.6 %; MONO ABS # 0.81 K/uL (0.11-0.59); NEUT % 69.7 %; NEUT ABS # 4.87 K/uL (1.4-6.5); PLATELET COUNT 215 K/uL (130-400); RED CELL DISTRIBUTION WIDTH CV 19.6 % (11.5-14.5); RED CELL DISTRIBUTION WIDTH SD 56.1 fL (36.4-46.3); WHITE BLOOD COUNT 6.98 K/uL (4.8-10.8)
--- NOTE | 2017-11-15 10:06 | Pharmacy Progress Note ---
Pharmacy Glycemic Short Note 2 Date of Service November 15, 2017. Test 11/14/17 11:19 11/14/17 16:51 11/14/17 20:39 11/15/17 07:48 Bedside Glucose 172 mg/dl (70-99) 177 mg/dl (70-99) 173 mg/dl (70-99) 123 mg/dl (70-99) Test 11/15/17 08:38 Random Glucose 122 mg/dl (70-99) ASSESSMENT: 11/15/17 * Pt received 14 units of insulin yesterday, BSGs at goal * IV antibiotics changed to Cefdinir PO, IV fluids discontinued * Pt taking Boost glucose control with chocolate flavoring and boost pudding 11/14/17 * Patient received only 12 units of insulin yesterday * Dextrose IVFs continue. Boost Glucose Control w/ yary flavoring and Boost pudding have been added to help increase po intake. * Will continue with reduce Levemir dose. Expect that dextrose IVFs will be d/c 'd once BSGs increase to above goal. 11/13/17 * Patient received 32 units of insulin yesterday, unfortunately had a few hypoglycemic episodes overnight * He remains off IV steroids and did not have po intake this AM because he's been nauseous * D5NS + 20 K has been started at 80 cc/hr * I held the AM dose of Levemir * Upon review of previous admissions, we do not have any BSG data off steroids so I will estimate TDD based upon a reduction from yesterday's total requirements. Anticipate TDD ~15-20 units with the reduced po intake? 11/12/17 * 87yo T2DM male with severe hyperglycemia on admission secondary to aspiration pneumonia/stress/infection and a dose of solumedrol 125mg x 1 * Pt initiated on IV insulin infusion 11/10-11/11. Pt transitioned to SQ basal bolus insulin regimen in the afternoon of 11/11. * Pt has received 47 units of SQ insulin + IV insulin infusion over the past 24hrs. * 40 units of basal insulin with Lantus (as 30 units AM + 10 units PM) * 7 units of prandial insulin with NovoLog * IV insulin infusion average rate ~1.5 units/hr * BSGs below goal range today at 89, 98, 83. Insulin doses need empirically reduced to prevent subsequent hypoglycemia PLAN FOR INPATIENT GLYCEMIC CONTROL: * Basal insulin: no change * Lantus 0 units qHS for BSG < 140 * Lantus 10 units qHS for BSG 140-180 * Lantus 15 units qHS for BSG > 180 * Bolus insulin: no change * NovoLog per scale ACHS or Q6hrs while NPO * Goal Range: Low 140 mg/dL - High 180 mg/dL * Correction Factor: 25 mg/dL/unit * Nutritional / Prandial insulin per carb ratio of 1 unit per 15 grams CHO consumed
[2017-11-15] MEDS ORDERED: METHYLPREDNISOLONE IV 60 MG in SYRINGE 0 ML IV ONE (10:45)
[2017-11-15] MEDS ORDERED: FUROSEMIDE INJ 40 MG in SYRINGE 0 ML IV ONE (10:45)
--- NOTE | 2017-11-15 10:46 | DIAGNOSTIC IMAGING REPORT ---
CHEST ONE VIEW PORTABLE CLINICAL HISTORY: Dyspnea, acute, fever. COMPARISON STUDY: Chest radiograph November 11, 2017. FINDINGS: Dense right lower lung consolidation has progressed. There is no pneumothorax. A possible left upper lobe density is again noted. Cardiomediastinal silhouette is stable. There is no definite pleural effusion. IMPRESSION: 1. Increasing right lower lung consolidation suggestive of pneumonia. Post treatment radiograph to ensure resolution are recommended. 2. Possible left upper lung nodular density which should be followed on subsequent chest radiographs to ensure exclude a pulmonary nodule. Electronically signed by: Arcenio Mejia M.D. 11/15/2017 10:45 AM Dictated Date/Time: 11/15/2017 10:43 AM
[2017-11-15] MEDS: POTASSIUM CHLR 10 MEQ / WTR 100 ML IV SCH ×4 (11:19→15:00)
[2017-11-15] MEDS ORDERED: PIPERACILL/TAZOBAC CONSULT ACTIVE PRN (11:45)
[2017-11-15] MEDS ORDERED: VANCOMYCIN CONSULT ACTIVE PRN (11:45)
[2017-11-15] MEDS ORDERED: PIPERACILL/TAZOBAC IV 3.375 GM in DEXTROSE 5% 100ML 100 ML IV ONE (12:45)
[2017-11-15] MEDS ORDERED: VANCOMYCIN IV 2,250 MG in SODIUM CHLORIDE 0.9% 500ML 500 ML IV ONE (12:45)
--- NOTE | 2017-11-15 12:58 | Pharmacy Progress Note ---
Pharmacy Abx Initial Consult Date of Service November 15, 2017. Pharmacy Dosing Scope Date of Consult: 11/15/17 Consultation requested by: Dr. Coyne Pharmacy is consulted to initiate Vancomycin and Zosyn IV dosing therapy, order appropriate labs and adjust drug dose/frequency. Objective Height (Feet): 6 Height (Inches): 1.00 Weight (Kilograms): 95.900 Vital Signs (Past 12Hrs) Vital Signs Past 12 Hours Date Time Temp Pulse Resp B/P (MAP) Pulse Ox O2 Delivery O2 Flow Rate FiO2 11/15/17 10:49 37.7 11/15/17 09:36 38.3 11/15/17 07:25 37.8 101 16 134/70 (91) 90 Nasal Cannula 2.0 11/15/17 07:04 77 18 95 Nasal Cannula 2.0 Lab Results (24Hrs) Laboratory Tests (24 Hours) Test 11/15/17 08:38 White Blood Count 6.98 K/uL (4.8-10.8) Red Blood Count 4.87 M/uL (4.7-6.1) Hemoglobin 11.2 g/dL (14.0-18.0) L Hematocrit 38.4 % (42-52) L Mean Corpuscular Volume 78.9 fL (80-100) L Mean Corpuscular Hemoglobin 23.0 pg (25-34) L Mean Corpuscular Hemoglobin Concent 29.2 g/dl (32-36) L Platelet Count 215 K/uL (130-400) Mean Platelet Volume 10.3 fL (7.4-10.4) Neutrophils (%) (Auto) 69.7 % Lymphocytes (%) (Auto) 13.5 % Monocytes (%) (Auto) 11.6 % Eosinophils (%) (Auto) 3.9 % Basophils (%) (Auto) 0.4 % Neutrophils # (Auto) 4.87 K/uL (1.4-6.5) Lymphocytes # (Auto) 0.94 K/uL (1.2-3.4) L Monocytes # (Auto) 0.81 K/uL (0.11-0.59) H Eosinophils # (Auto) 0.27 K/uL (0-0.5) Basophils # (Auto) 0.03 K/uL (0-0.2) Micro Results Date/Time Source Procedure Growth Status 11/09/17 22:00 Blood Blood Culture - Final NO GROWTH Complete 11/09/17 21:59 Blood Blood Culture - Final NO GROWTH Complete 11/10/17 07:50 Nasal MRSA DNA Surveillance Screen - Final Specimen Positive for MRSA by DNA Probe Complete Risk Factors for Resistance * Resident in a fpc or extended-care facility * Hospitalization for 48 hours or more within the past 90 days * Current hospitalization > 5 days * 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 * Patient was given cefepime + zithromax 11/10-11/14 * Cefepime changed to cefdinir * Patient had persistent fever overnight; pharmacy consulted on 11/15 to initiate vanc and zosyn. * Patient has multiple risk factors for MDRO (see above) Plan Vanco/Zosyn for treatment of pneumonia Vancomycin IV * Loading dose: 2250 mg (23 mg/kg) * Maintenance dose: 1500 mg IV (18 mg/kg) every 18 hours * Goal trough level for pulm : 15 to 20 mcg/mL * Trough level ordered for 11/17/17 Piperacillin/tazobactam * 3.375 g bolus administered over 30 minutes, then 3.375 g IV extended infusion every 8 hours for CrCl greater than 20 mL/min Pharmacy will continue to follow and will adjust dose/frequency as necessary. Thank you.
[2017-11-15] MEDS ORDERED: MoRPHine SULFATE 2 MG/ML CARP IV PRN (15:15)
[2017-11-15] MEDS: PIPERACILL/TAZOBAC IV 3.375 GM in DEXTROSE 5% 100ML 100 ML IV SCH (17:20)
[2017-11-15] MEDS: MoRPHine SULFATE 4 MG/ML 1 ML CARP\\VIAL IV PRN (18:11)
[2017-11-15] MEDS: METHYLPREDNISOLONE IV 40 MG in SYRINGE 0 ML IV SCH (20:30)
[2017-11-15] MEDS: FAMOTIDINE 20 MG TAB PO SCH (20:34)
[2017-11-15] MEDS: TAMSULOSIN HCL 0.4 MG CAP PO SCH (20:36)
[2017-11-15] MEDS: INSULIN DETEMIR FLEXPEN/FLEX TOUCH 100 UNITS/ML 3ML SQ SCH (21:40)
[2017-11-15] MEDS: LORAZEPAM INJ 1 MG in SYRINGE 0.5 ML IV PRN (22:18)
--- NOTE | 2017-11-15 23:51 | Progress Note ---
Subjective Date of Service: November 15, 2017. Subjective Pt evaluation today including: conversation w/ patient, conversation w/ family , physical exam, lab review, review of studies, review of inpatient medication list Pain: no pain PO Intake: poor Voiding: gomez catheter in place called to patient's room this morning due to increased dyspnea, weakness, confusion he was working a lot harder to breath this AM than days past increased rales in bases, scattered wheezing, decreased breath sound CXR with increased right lower lobe infiltrate febrile, tachypnic, tachycardia however, his oxygen levels were holding on only 2 liters gave Lasix 40mg IV, Solu Medrol, changed back to IV antibiotics ABG showed respiratory alkalosis long discussions with patient and his discussed poor prognosis going forward with severe COPD, chronic heart failure, now aspirating more and with pneumonia discussed possible need for BIPAP, patient said that it was too uncomfortable, would not want it discussed aspiration, cannot eat enough or drink enough safely, patient would not want feeding tube discussed palliative options, giving Morphine as needed interestingly, patient's said that patient was on hospice two years ago, on morphine, but breathing improved and no longer on hospice agreed to palliative care consult for goals of care, POLST form discussed that we would continue aggressive treatment with IV antibiotics, steroids Lasix hope is that breathing would improve to the point that he could return to [facility] however, they understand that breathing may get worse and would need palliative care inpatient diuresed 3000cc with Lasix Problem List Medical Problems: (1) Acute on chronic renal failure Status: Acute (2) Acute respiratory failure Status: Acute (3) Altered mental status Status: Acute (4) Cellulitis Status: Acute (5) Coagulopathy Status: Acute (6) Confusion Status: Acute (7) Confusion Status: Acute (8) COPD exacerbation Status: Acute (9) Fever Status: Acute (10) Fever Status: Acute (11) Forearm laceration Status: Acute (12) GI bleed Status: Acute (13) Hand pain Status: Acute (14) Hypoglycemia Status: Acute (15) Hypoglycemia Status: Acute (16) Hypoxia Status: Acute (17) Hypoxia Status: Acute (18) Influenza A Status: Acute (19) Lactic acidosis Status: Acute (20) Malfunction of Gomez catheter Status: Acute (21) Reactive airway disease Status: Acute (22) Respiratory distress Status: Acute (23) Right lower lobe pneumonia Status: Acute (24) Sepsis Status: Acute (25) Substernal chest pain Status: Acute (26) Substernal precordial chest pain Status: Acute (27) UTI (urinary tract infection) Status: Acute Review of Systems Constitutional: + weakness, + fatigue Respiratory: + cough, + wheezing, + shortness of breath, + dyspnea at rest Neurologic: + weakness All Other Systems: Reviewed and Negative Medications Current Inpatient Medications Medications (Trade) Dose Ordered Sig/Cole Route Start Time Stop Time Status Last Admin Dose Admin Aspirin (Aspirin Chew) 81 mg QAM PO 11/10/17 09:00 12/10/17 08:59 Future hold 11/15/17 09:24 81 MG Atenolol (Tenormin Tab) 12.5 mg QAM PO 11/10/17 09:00 12/10/17 08:59 Future hold 11/15/17 09:11 12.5 MG Bisacodyl (Dulcolax Tab) 5 mg BID PO 11/10/17 09:00 12/10/17 08:59 Future hold 11/15/17 21:37 5 MG Docusate Sodium (coLACE CAP) 100 mg BID PO 11/10/17 09:00 12/10/17 08:59 11/15/17 20:33 100 MG Duloxetine HCl (Cymbalta Cap) 30 mg DAILY PO 11/10/17 09:00 12/10/17 08:59 11/15/17 09:09 30 MG Famotidine (Pepcid Tab) 20 mg HS PO 11/10/17 21:00 12/10/17 20:59 Future hold 11/15/17 20:34 20 MG Fludrocortisone Acetate (Florinef Tab) 0.1 mg BID PO 11/10/17 09:00 12/10/17 08:59 Future hold 11/15/17 21:38 0.1 MG Guaifenesin (Mucinex Contr Rel Tab) 1,200 mg Q12 PO 11/10/17 09:00 12/10/17 08:59 Future hold 11/15/17 20:33 1,200 MG Magnesium Oxide (Mag-Ox Tab) 400 mg BID PO 11/10/17 09:00 12/10/17 08:59 Future hold 11/15/17 20:30 400 MG Oxycodone HCl (Oxycontin Tab) 15 mg Q12 PO 11/10/17 09:00 11/24/17 08:59 Future Hold Simethicone (Mylicon Chew Tab) 80 mg QID PRN PO 11/09/17 23:00 12/09/17 22:59 Future hold 11/12/17 07:25 80 MG Tamsulosin HCl (Flomax Cap) 0.4 mg HS PO 11/10/17 21:00 12/10/17 20:59 Future hold 11/15/17 20:36 0.4 MG Cyanocobalamin (Vitamin B-12 Tab) 1,000 mcg QAM PO 11/10/17 09:00 12/10/17 08:59 Future hold 11/15/17 09:11 1,000 MCG Polyethylene (Miralax Powder Packet) 17 gm BID PO 11/10/17 09:00 12/10/17 08:59 Future hold 11/15/17 20:30 17 GM Artificial Tears (Artificial Tears) 1 drops BID OPB 11/10/17 09:00 12/10/17 08:59 11/15/17 21:37 1 DROPS Acetaminophen (Tylenol Tab) 650 mg Q4H PRN PO 11/09/17 23:30 12/09/17 23:29 Future hold 11/15/17 09:29 650 MG Lorazepam (Ativan Inj) 1 mg Q6H PRN IV 11/09/17 23:30 12/09/17 23:29 Nitroglycerin (Nitrostat Tab) 0.4 mg UD PRN SL 11/09/17 23:30 12/09/17 23:29 Ondansetron HCl (Zofran Inj) 4 mg Q6H PRN IV 11/09/17 23:30 12/09/17 23:29 11/13/17 07:55 4 MG Levalbuterol (Xopenex 1.25MG/ 3ML Neb) 1.25 mg Q4H PRN INH 11/09/17 23:30 12/09/17 23:29 Albuterol/ Ipratropium (Duoneb) 3 ml Q6R INH 11/10/17 03:00 12/10/17 02:59 11/15/17 21:02 3 ML Morphine Sulfate (MoRPHine SULFATE INJ) 4 mg Q2H PRN IV 11/09/17 23:30 11/23/17 23:29 11/15/17 18:11 4 MG Heparin Sodium (Porcine) (Heparin Sq 5000 Unit/0.5ml) 5,000 unit Q8H SQ 11/10/17 06:00 12/10/17 05:59 11/15/17 21:41 5,000 UNIT Miscellaneous Information (Consult Glycemic Management Pharmacy) 1 ea UD PRN N/A 11/10/17 06:17 12/10/17 06:16 Glucose (Glucose 40% Gel) 15-30 GRAMS 15 GRAMS... UD PRN PO 11/10/17 09:00 12/10/17 08:59 Glucose (Glucose Chew Tab) 4-8 Tablets 4 Tabl... UD PRN PO 11/10/17 09:00 12/10/17 08:59 Dextrose (Dextrose 50% 50ML Syringe) 25-50ML OF 50% DW IV FOR... UD PRN IV 11/10/17 09:00 12/10/17 08:59 11/13/17 07:35 25 ML Glucagon (Glucagon Inj) 1 mg UD PRN SQ 11/10/17 09:00 12/10/17 08:59 Dutasteride (Avodart) 0.5 mg DAILY PO 11/12/17 09:00 12/12/17 08:59 11/15/17 09:31 0.5 MG Metoprolol Tartrate (Lopressor Iv) 2.5 mg Q6 PRN IV 11/11/17 20:45 12/11/17 20:44 Pantoprazole Sodium (Protonix Tab) 40 mg QAM PO 11/12/17 09:00 12/12/17 08:59 11/15/17 09:09 40 MG Insulin Aspart (novoLOG ASPART) SLIDING SCALE ACHS SC 11/12/17 08:45 12/12/17 08:44 11/15/17 21:37 6 UNITS Carbohydrates (Carbohydrates For Hypoglycemia) 15-30 GRAMS 15 grams if BSG 54-69... UD PRN PO 11/12/17 08:45 12/12/17 08:44 Magnesium Hydroxide (Milk Of Magnesia Susp) 30 ml Q6H PRN PO 11/12/17 12:00 12/12/17 11:59 Potassium Chloride (Klor-Con Tab) 40 meq TID PO 11/13/17 09:00 12/12/17 08:59 11/15/17 20:33 40 MEQ Bisacodyl (Dulcolax Supp) 10 mg DAILY PRN HI 11/13/17 11:30 12/13/17 11:29 Insulin Detemir (Levemir Flexpen/ FlexTouch) see protocol text HS SQ 11/13/17 21:00 12/13/17 20:59 11/15/17 21:40 15 UNITS Enteral Nutritional Formula (Boost Pudding) 1 cup DAILY PO 11/14/17 09:00 12/14/17 08:59 11/15/17 09:08 1 CUP Enteral Nutritional Formula (Boost Glucose Control) 1 can BIDM PO 11/13/17 17:00 12/13/17 16:59 11/15/17 09:07 1 CAN Lorazepam 1 mg/ Syringe 1 ml @ 1 mls/min Q6H PRN IV 11/13/17 20:15 12/13/17 20:14 11/15/17 22:18 1 MLS/MIN Furosemide (Lasix Tab) 40 mg BID17 PO 11/14/17 17:00 12/14/17 16:59 11/15/17 17:20 40 MG Methylprednisolone Sodium Succinate 40 mg/Syringe 0.64 ml @ 1.5 mls/min Q12 IV 11/15/17 21:00 12/15/17 20:59 11/15/17 20:30 1.5 MLS/MIN Piperacillin Sod/ Tazobactam Sod 3.375 gm/Dextrose 115 ml @ 28.75 mls/ hr Q8H IV 11/15/17 18:00 11/22/17 12:44 11/15/17 17:20 28.75 MLS/HR Miscellaneous Information (Consult) 1 ea UD PRN N/A 11/15/17 11:45 12/15/17 11:44 Miscellaneous Information (Consult) 1 ea UD PRN N/A 11/15/17 11:45 12/15/17 11:44 Vancomycin HCl 1500 mg/Sodium Chloride 530 ml @ 200 mls/hr Q18H IV 11/16/17 04:00 11/22/17 12:44 Morphine Sulfate (MoRPHine SULFATE INJ) 2 mg Q4 PRN IV 11/15/17 15:15 11/29/17 15:14 Insulin Aspart (novoLOG ASPART) SLIDING SCALE 0000,0400 SC 11/16/17 00:00 12/16/17 00:00 Objective Vital Signs Date Time Temp Pulse Resp B/P (MAP) Pulse Ox O2 Delivery O2 Flow Rate FiO2 11/15/17 23:08 36.9 104 28 106/70 (82) 98 Nasal Cannula 2.0 11/15/17 21:02 78 18 96 Nasal Cannula 2.0 11/15/17 16:00 90 Nasal Cannula 2.0 30 11/15/17 15:39 37.1 97 32 121/70 (87) 91 Nasal Cannula 2.0 11/15/17 15:16 72 18 99 Nasal Cannula 2.0 11/15/17 10:49 37.7 11/15/17 09:36 38.3 11/15/17 08:00 90 Nasal Cannula 2.0 30 11/15/17 07:25 37.8 101 16 134/70 (91) 90 Nasal Cannula 2.0 11/15/17 07:04 77 18 95 Nasal Cannula 2.0 11/15/17 00:00 Nasal Cannula 2.0 Physical Exam General Appearance: WD/WN, + mild distress Eyes: normal inspection, EOMI, sclerae normal ENT: normal ENT inspection, hearing grossly normal, pharynx normal Neck: supple, no adenopathy, no JVD, trachea midline Respiratory/Chest: chest non-tender, + respiratory distress, + decreased breath sounds, + accessory muscle use, + rales, + wheezing Cardiovascular: regular rate, rhythm, no edema, no gallop, no JVD, no murmur Abdomen: normal bowel sounds, non tender, soft, no organomegaly Extremities: non-tender, normal inspection, no pedal edema, no calf tenderness , normal capillary refill, pelvis stable 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 Increasing right lower lung consolidation suggestive of pneumonia. Post treatment radiograph to ensure resolution are recommended. 2. Possible left upper lung nodular density which should be followed on subsequent chest radiographs to ensure exclude a pulmonary nodule. Last 24 Hours Test 11/15/17 07:48 11/15/17 08:38 11/15/17 11:41 11/15/17 12:07 Bedside Glucose 123 mg/dl 165 mg/dl White Blood Count 6.98 K/uL Red Blood Count 4.87 M/uL Hemoglobin 11.2 g/dL Hematocrit 38.4 % Mean Corpuscular Volume 78.9 fL Mean Corpuscular Hemoglobin 23.0 pg Mean Corpuscular Hemoglobin Concent 29.2 g/dl Platelet Count 215 K/uL Mean Platelet Volume 10.3 fL Neutrophils (%) (Auto) 69.7 % Lymphocytes (%) (Auto) 13.5 % Monocytes (%) (Auto) 11.6 % Eosinophils (%) (Auto) 3.9 % Basophils (%) (Auto) 0.4 % Neutrophils # (Auto) 4.87 K/uL Lymphocytes # (Auto) 0.94 K/uL Monocytes # (Auto) 0.81 K/uL Eosinophils # (Auto) 0.27 K/uL Basophils # (Auto) 0.03 K/uL RDW Standard Deviation 56.1 fL RDW Coefficient of Variation 19.6 % Immature Granulocyte % (Auto) 0.9 % Immature Granulocyte # (Auto) 0.06 K/uL Sodium Level 139 mmol/L Potassium Level 2.6 mmol/L Chloride Level 100 mmol/L Carbon Dioxide Level 32 mmol/L Anion Gap 7.0 mmol/L Blood Urea Nitrogen 10 mg/dl Creatinine 1.27 mg/dl Est Creatinine Clear Calc Drug Dose 50.0 ml/min Estimated GFR () 58.5 Estimated GFR (Non- 50.5 BUN/Creatinine Ratio 8.1 Random Glucose 122 mg/dl Calcium Level 8.8 mg/dl Arterial Blood pH 7.51 Arterial Blood Partial Pressure CO2 38 mmHg Arterial Blood Partial Pressure O2 75 mm/Hg Arterial Blood HCO3 29 mmol/L Arterial Blood Oxygen Saturation 94.4 % Arterial Blood Base Excess 5.9 mEq/L Arterial Blood Gas Delivery 2L Ramos Test POS Test 11/15/17 16:47 11/15/17 20:31 Bedside Glucose 266 mg/dl 306 mg/dl Assessment and Plan 86 y/o M Admitted multiple times this yr for pneumonia due to aspiration and CHF exacerbation again admitted because of aspiration pneumonia, An initial CXR a new RLL infiltrate. He required BiPAP to maintain an adequate saturation at the time of admission. Past medical history COPD, combined CHF, CAD, CKD 3-4, DM, chronic aspiration with recurrent PNM, adrenal insufficiency, chronic Gomez w/recurrent UTIs, history of DVT, assisted resident Aspiration pneumonia with sepsis POA: rapid deterioration today, febrile, tachypnic, respiratory alkalosis treated for 6 days with Cefepime, Azithromycin will change to Zosyn and Vancomycin today, nebulizers increased infiltrate in right lower lobe on CXR speech evaluation, recommend honey thick liquids, patient will not comply Acute hypoxic respiratory failure on chronic hypoxic failure increased work of breathing, distress, today however, oxygen levels stable on 2L Morphine added PRN for dyspnea Acute on Chronic diastolic and systolic HF pulmonary edema today on CXR and on exam Lasix 40mg IV given, diuresed 3000cc will schedule Lasix 40mg IV daily in the AM, follow I/O's echo on 10/16 showed EF of 50-55% Possible acute on chronic CKD III, creatinine stable at 1.27 today, continue to monitor diuresed 3000cc with Lasix COPD exacerbation: triggered by pneumonia and pulmonary edema Solu Medrol 40mg IV q12 would treat for 5 days, no taper duonebs Constipation, distension distended stomach on KUB on 11/12 had two BM yesterday, less distension today, eating better continue bowel regimen, prone to constipation Hypokalemia: 2.7 today, continue PO replacement repeat tomorrow, likely to drop with diuresis DM: eating poorly, monitor for hypoglycemia CAD - cont ASA, statin, Coreg Anemia - Hb is stable Adrenal insufficiency: resume Florinef now that he can take pills Do not resuscitation GI prophylaxis covered, heparin prophylaxis consult palliative care, discuss goals of care and POLST would not want BIPAP, would not want PEG tube goal is to get better to the point that he can return to [facility] understands he may get worse and require palliation inpatient Continued [facility] stay due to: multiple IV medications needed Discharge planning: uncertain
[2017-11-16] VITALS (9 sets, daily range): BP systolic 107–116; BP diastolic 55–73; PULSE 70–91; TEMP 36–36.9; O2SAT 90–99
[2017-11-16] MEDS: INSULIN ASPART 100 UNITS/ML 3 ML PEN SC SCH ×6 (00:25→21:13)
[2017-11-16] MEDS ORDERED: INSULIN HUMAN REGULAR PER UNIT 7 UNITS in SYRINGE 6.93 ML IV SCH (00:30)
[2017-11-16] MEDS: ALBUT/IPRATROP 3MG/0.5MG NEB 3 ML VIAL INH SCH ×4 (01:43→19:00)
[2017-11-16] MEDS: PIPERACILL/TAZOBAC IV 3.375 GM in DEXTROSE 5% 100ML 100 ML IV SCH ×3 (02:09→17:00)
[2017-11-16] MEDS: VANCOMYCIN IV 1,500 MG in SODIUM CHLORIDE 0.9% 500ML 500 ML IV SCH ×2 (04:12→21:27)
[2017-11-16] MEDS: HEPARIN SOD 5000 UNIT/0.5 ML CARP SQ SCH ×3 (05:35→21:14)
[2017-11-16] MEDS: LORAZEPAM INJ 1 MG in SYRINGE 0.5 ML IV PRN ×2 (05:50→21:16)
[2017-11-16 08:14] LABS: HEMOGLOBIN 9.3 g/dL (14.0-18.0); IG# 0.02 K/uL (0.00-0.02); LYMPH % 11.7 %; LYMPH ABS # 0.46 K/uL (1.2-3.4); MEAN CELL VOLUME 78.9 fL (80-100); MEAN CORPUSCULAR HEMOGLOBIN 23.7 pg (25-34); MONO % 7.9 %; MONO ABS # 0.31 K/uL (0.11-0.59); NEUT % 79.9 %; NEUT ABS # 3.13 K/uL (1.4-6.5); PLATELET COUNT 221 K/uL (130-400); RED CELL DISTRIBUTION WIDTH CV 19.3 % (11.5-14.5); RED CELL DISTRIBUTION WIDTH SD 55.6 fL (36.4-46.3); WHITE BLOOD COUNT 3.92 K/uL (4.8-10.8)
[2017-11-16 08:44] LABS: CALCIUM 8.6 mg/dl (8.5-10.1); CREATININE 1.36 mg/dl (0.60-1.40); POTASSIUM 2.8 mmol/L (3.5-5.1)
[2017-11-16] MEDS ORDERED: FUROSEMIDE INJ 40 MG in SYRINGE 0 ML IV SCH ×3 (09:00→21:00)
[2017-11-16] MEDS: BISACODYL 5 MG TABEC PO SCH ×2 (09:19→21:04)
[2017-11-16] MEDS: CYANOCOBALAMIN 500 MCG TAB (VIT B-12) PO SCH (09:20)
[2017-11-16] MEDS: PANTOprazole SOD 40 MG TAB PO SCH (09:20)
[2017-11-16] MEDS: MAGNESIUM OXIDE 400 MG TAB PO SCH ×2 (09:20→21:05)
[2017-11-16] MEDS: FLUDROCORTISONE ACETATE 0.1 MG TAB PO SCH ×2 (09:20→21:05)
[2017-11-16] MEDS: POLYETHYLENE (MIRALAX) 17 GM PACK PO SCH ×2 (09:24→21:07)
[2017-11-16] MEDS: GUAIFENESIN 600 MG TABCR PO SCH ×2 (09:25→21:07)
[2017-11-16] MEDS: POTASSIUM CHLORIDE 20 MEQ TABCR PO SCH ×3 (09:25→21:06)
[2017-11-16] MEDS: BOOST VANILLA PUDDING CUP PO SCH (09:25)
[2017-11-16] MEDS: BOOST GLUCOSE CONTROL PO SCH ×2 (09:26→16:53)
[2017-11-16] MEDS: DOCUSATE SODIUM 100 MG CAP PO SCH ×2 (09:28→21:04)
[2017-11-16] MEDS: DULOXETINE (CYMBALTA) 30 MG CAP PO SCH (09:28)
[2017-11-16] MEDS: ARTIFICIAL TEARS OP SOLN OPB SCH ×2 (09:35→21:06)
[2017-11-16] MEDS: METHYLPREDNISOLONE IV 40 MG in SYRINGE 0 ML IV SCH ×2 (09:36→21:04)
[2017-11-16] MEDS: ASPIRIN 81 MG CHEW PO SCH (09:37)
[2017-11-16] MEDS: INSULIN DETEMIR FLEXPEN/FLEX TOUCH 100 UNITS/ML 3ML SQ SCH ×2 (09:50→21:14)
[2017-11-16] MEDS ORDERED: LIDODERM (LIDOCAINE) PATCH 5% TD ONE (10:25)
[2017-11-16] MEDS ORDERED: POTASSIUM CHLORIDE 10 MEQ TABCR PO ONE (10:30)
[2017-11-16] MEDS ORDERED: NURSING VERBAL MED ORDER ONE (11:15)
[2017-11-16] MEDS: POTASSIUM CHLR 10 MEQ / WTR 100 ML IV SCH ×2 (11:30→13:37)
--- NOTE | 2017-11-16 12:11 | Hospitalist Progress Note ---
Hospitalist Progress Note Date of Service November 16, 2017. (Peggy Auguste .MARCELO) Subjective Pt evaluation today including: conversation w/ patient, conversation w/ family , physical exam, chart review, lab review, conversation w/ homemaking rehabilitation consultant, review of inpatient medication list Voiding: no voiding problems Mr. Enciso is up to a chair and feeling much better today than yesterday. He is having an ongoing cough productive of yellow sputum which he has had since admission. He is not feeling sob, sating well on 2L NC. He feels his legs are less swollen today ROS Constitutional: no chills, aches, sweats or fever Respiratory: see HPI Cardiac: no chest pain, palpitations, edema, orthopnea or lightheadedness GI: no abdominal pain, nausea, vomiting, diarrhea or constipation : no dysuria or hesitancy Extremities: no joint pain or weakness Skin: no rash All other systems reviewed and negative (Peggy Auguste .MARCELO) Medications Medications Administered Medications (Trade) Dose Ordered Sig/Cole Route Start Time Stop Time Status Last Admin Dose Admin Methylprednisolone Sodium Succinate (Solu-Medrol IV) 125 mg NOW STAT IV 11/09/17 20:47 11/09/17 20:49 DC 11/09/17 20:56 125 MG Albuterol/ Ipratropium (Duoneb) 12 ml ONE ONCE INH 11/09/17 21:00 11/09/17 21:01 DC 11/09/17 21:14 12 ML Furosemide 20 mg/ Syringe 2 ml @ 4 mls/min ONE ONCE IV 11/09/17 21:00 11/09/17 21:01 DC 11/09/17 21:00 4 MLS/MIN Piperacillin Sod/ Tazobactam Sod (Zosyn Iv) 4.5 gm NOW STAT IV 11/09/17 21:36 11/10/17 07:40 DC 11/09/17 22:01 4.5 GM Acetaminophen (Tylenol Tab) 650 mg NOW STAT PO 11/09/17 21:36 11/09/17 21:37 DC 11/09/17 22:21 650 MG Vancomycin HCl 2250 mg/Sodium Chloride 545 ml @ 200 mls/hr TODAY@0200 ONCE IV 11/10/17 02:00 11/10/17 04:43 DC 11/10/17 01:57 200 MLS/HR Aspirin (Aspirin Chew) 81 mg QAM PO 11/10/17 09:00 12/10/17 08:59 Future hold 11/16/17 09:37 81 MG Atenolol (Tenormin Tab) 12.5 mg QAM PO 11/10/17 09:00 12/10/17 08:59 Future hold 11/16/17 09:21 12.5 MG Bisacodyl (Dulcolax Tab) 5 mg BID PO 11/10/17 09:00 12/10/17 08:59 Future hold 11/16/17 09:19 5 MG Docusate Sodium (coLACE CAP) 100 mg BID PO 11/10/17 09:00 12/10/17 08:59 11/16/17 09:28 100 MG Duloxetine HCl (Cymbalta Cap) 30 mg DAILY PO 11/10/17 09:00 12/10/17 08:59 11/16/17 09:28 30 MG Famotidine (Pepcid Tab) 20 mg HS PO 11/10/17 21:00 12/10/17 20:59 Future hold 11/15/17 20:34 20 MG Fludrocortisone Acetate (Florinef Tab) 0.1 mg BID PO 11/10/17 09:00 12/10/17 08:59 Future hold 11/16/17 09:20 0.1 MG Guaifenesin (Mucinex Contr Rel Tab) 1,200 mg Q12 PO 11/10/17 09:00 12/10/17 08:59 Future hold 11/16/17 09:25 1,200 MG Magnesium Oxide (Mag-Ox Tab) 400 mg BID PO 11/10/17 09:00 12/10/17 08:59 Future hold 11/16/17 09:20 400 MG Simethicone (Mylicon Chew Tab) 80 mg QID PRN PO 11/09/17 23:00 12/09/17 22:59 Future hold 11/12/17 07:25 80 MG Tamsulosin HCl (Flomax Cap) 0.4 mg HS PO 11/10/17 21:00 12/10/17 20:59 Future hold 11/15/17 20:36 0.4 MG Cyanocobalamin (Vitamin B-12 Tab) 1,000 mcg QAM PO 11/10/17 09:00 12/10/17 08:59 Future hold 11/16/17 09:20 1,000 MCG Miscellaneous Information (Order Awaiting Action) 1 ea QS N/A 11/10/17 08:00 11/11/17 20:20 DC 11/10/17 16:00 1 EA Insulin Detemir (Levemir Flexpen/ FlexTouch) 20 units ONE ONCE SQ 11/10/17 06:45 11/10/17 06:46 DC 11/10/17 07:43 20 UNITS Polyethylene (Miralax Powder Packet) 17 gm BID PO 11/10/17 09:00 12/10/17 08:59 Future hold 11/16/17 09:24 17 GM Artificial Tears (Artificial Tears) 1 drops BID OPB 11/10/17 09:00 12/10/17 08:59 11/16/17 09:35 1 DROPS Hydrocortisone Sodium Succinate 100 mg/Syringe 2 ml @ 4 mls/min Q8H IV 11/10/17 03:00 11/11/17 11:20 DC 11/11/17 11:04 4 MLS/MIN Sodium Chloride 1,000 ml @ 50 mls/hr Q20H IV 11/10/17 00:30 11/10/17 19:07 DC 11/10/17 01:58 50 MLS/HR Acetaminophen (Tylenol Tab) 650 mg Q4H PRN PO 11/09/17 23:30 12/09/17 23:29 Future hold 11/15/17 09:29 650 MG Ondansetron HCl (Zofran Inj) 4 mg Q6H PRN IV 11/09/17 23:30 12/09/17 23:29 11/13/17 07:55 4 MG Albuterol/ Ipratropium (Duoneb) 3 ml Q6R INH 11/10/17 03:00 12/10/17 02:59 11/16/17 07:08 3 ML Morphine Sulfate (MoRPHine SULFATE INJ) 4 mg Q2H PRN IV 11/09/17 23:30 11/23/17 23:29 11/15/17 18:11 4 MG Heparin Sodium (Porcine) (Heparin Sq 5000 Unit/0.5ml) 5,000 unit Q8H SQ 11/10/17 06:00 12/10/17 05:59 11/16/17 05:35 5,000 UNIT Insulin Aspart (novoLOG ASPART) SLIDING SCALE Q4 SC 11/10/17 06:30 11/10/17 09:02 DC 11/10/17 07:42 18 UNITS Azithromycin 500 mg/Dextrose 255 ml @ 125 mls/hr ONE ONCE IV 11/10/17 07:45 11/10/17 09:47 DC 11/10/17 08:09 125 MLS/HR Azithromycin 250 mg/Dextrose 252.5 ml @ 125 mls/hr DAILY IV 11/11/17 09:00 11/14/17 11:02 DC 11/14/17 09:01 125 MLS/HR Insulin Human Regular (Insulin IV Infusion Protocol) 1 ea Q10M N/A 11/10/17 08:09 11/10/17 08:54 DC 11/10/17 08:49 1 EA Insulin Aspart (novoLOG ASPART) SLIDING SCALE PCHS MI 11/10/17 08:00 11/11/17 18:00 DC 11/11/17 16:39 3 UNITS Miscellaneous (Insulin Protocol Goal Range (Other)) 1 ea ONE ONCE N/A 11/10/17 07:45 11/10/17 08:10 DC 11/10/17 07:45 1 EA Cefepime HCl 1000 mg/Syringe 11 ml @ 5.5 mls/min DAILY IV 11/10/17 09:00 11/14/17 15:06 DC 11/14/17 09:39 5.5 MLS/MIN Insulin Human Regular (NovoLIN R BOLUS FROM BAG) 2.5 unit ONE ONCE IV 11/10/17 09:00 11/10/17 09:05 DC 11/10/17 09:21 2.5 UNIT Insulin Human Regular 250 units/ Sodium Chloride 252.5 ml @ 2.5 mls/hr Q24H IV 11/10/17 09:00 11/11/17 18:00 DC 11/11/17 08:57 2.5 MLS/HR Dextrose (Dextrose 50% 50ML Syringe) 25-50ML OF 50% DW IV FOR... UD PRN IV 11/10/17 09:00 12/10/17 08:59 11/13/17 07:35 25 ML Pantoprazole Sodium 40 mg/ Syringe 10 ml @ 5 mls/min DAILY@11 IV 11/11/17 11:00 11/11/17 20:41 DC 11/11/17 11:04 5 MLS/MIN Sodium Chloride 1,000 ml @ 50 mls/hr Q20H IV 11/10/17 23:30 11/13/17 08:32 DC 11/12/17 16:14 50 MLS/HR Potassium Chloride 100 ml @ 100 mls/hr Q1H IV 11/11/17 06:02 11/11/17 10:01 DC 11/11/17 10:37 100 MLS/HR Metoprolol Tartrate (Lopressor Iv) 2.5 mg Q6 IV. 11/11/17 12:00 11/11/17 20:40 DC 11/11/17 18:16 2.5 MG Metoprolol Tartrate (Lopressor Iv) 2.5 mg 0657 ONCE IV. 11/11/17 06:57 11/11/17 07:02 DC 11/11/17 07:29 2.5 MG Insulin Detemir (Levemir Flexpen/ FlexTouch) 30 units NOW ONCE SQ 11/11/17 12:00 11/11/17 12:01 DC 11/11/17 12:11 30 UNITS Insulin Aspart (novoLOG ASPART) SLIDING SCALE Q4 SC 11/11/17 20:00 11/12/17 08:33 DC 11/11/17 20:24 2 UNITS Insulin Detemir (Levemir Flexpen/ FlexTouch) QPM ONCE SQ 11/11/17 21:00 11/11/17 21:01 DC 11/11/17 22:08 10 UNITS Miscellaneous Information (Dc Iv Insulin Infusion) 1 ea TODAY@1800 ONCE N/A 11/11/17 18:00 11/11/17 18:01 DC 11/11/17 18:14 1 EA Dutasteride (Avodart) 0.5 mg DAILY PO 11/12/17 09:00 12/12/17 08:59 11/16/17 09:30 0.5 MG Pantoprazole Sodium (Protonix Tab) 40 mg QAM PO 11/12/17 09:00 12/12/17 08:59 11/16/17 09:20 40 MG Potassium Chloride (Klor-Con Tab) 20 meq TID PO 11/12/17 09:00 11/13/17 08:32 DC 11/12/17 20:56 20 MEQ Insulin Detemir (Levemir Flexpen/ FlexTouch) BID SQ 11/12/17 09:00 11/13/17 13:55 DC 11/12/17 17:44 15 UNITS Insulin Aspart (novoLOG ASPART) SLIDING SCALE ACHS SC 11/12/17 08:45 12/12/17 08:44 11/16/17 09:50 17 UNITS Potassium Chloride (Klor-Con Tab) 40 meq TID PO 11/13/17 09:00 12/12/17 08:59 11/16/17 09:25 40 MEQ Potassium Chloride/Dextrose/ Sod Cl 1,000 ml @ 80 mls/hr [id number] IV 11/13/17 08:45 11/14/17 15:12 DC 11/14/17 10:36 80 MLS/HR Potassium Chloride 100 ml @ 100 mls/hr Q1H IV 11/13/17 08:45 11/13/17 12:44 DC 11/13/17 12:42 100 MLS/HR Insulin Detemir (Levemir Flexpen/ FlexTouch) see protocol text HS SQ 11/13/17 21:00 12/13/17 20:59 11/15/17 21:40 15 UNITS Enteral Nutritional Formula (Boost Pudding) 1 cup DAILY PO 11/14/17 09:00 12/14/17 08:59 11/16/17 09:25 1 CUP Enteral Nutritional Formula (Boost Glucose Control) 1 can BIDM PO 11/13/17 17:00 12/13/17 16:59 11/16/17 09:26 1 CAN Lorazepam 1 mg/ Syringe 1 ml @ 1 mls/min Q6H PRN IV 11/13/17 20:15 12/13/17 20:14 11/16/17 05:50 1 MLS/MIN Potassium Chloride 100 ml @ 100 mls/hr Q1H IV 11/14/17 09:30 11/14/17 11:29 DC 11/14/17 11:16 100 MLS/HR Cefdinir (Omnicef Cap) 300 mg Q12 PO 11/15/17 09:00 11/15/17 11:44 DC 11/15/17 09:10 300 MG Furosemide (Lasix Tab) 40 mg BID17 PO 11/14/17 17:00 12/14/17 16:59 Future Hold 11/15/17 17:20 40 MG Methylprednisolone Sodium Succinate 60 mg/Syringe 0.96 ml @ 1.5 mls/min ONE ONCE IV 11/15/17 10:45 11/15/17 10:46 DC 11/15/17 11:12 1.5 MLS/MIN Methylprednisolone Sodium Succinate 40 mg/Syringe 0.64 ml @ 1.5 mls/min Q12 IV 11/15/17 21:00 12/15/17 20:59 11/16/17 09:36 1.5 MLS/MIN Furosemide 40 mg/ Syringe 4 ml @ 4 mls/min ONE ONCE IV 11/15/17 10:45 11/15/17 10:46 DC 11/15/17 11:15 4 MLS/MIN Potassium Chloride 100 ml @ 100 mls/hr TODAY@1100,1200,1300,1400 IV 11/15/17 11:00 11/15/17 14:59 DC 11/15/17 15:00 100 MLS/HR Piperacillin Sod/ Tazobactam Sod 3.375 gm/Dextrose 115 ml @ 28.75 mls/ hr Q8H IV 11/15/17 18:00 11/22/17 12:44 11/16/17 09:30 28.75 MLS/HR Vancomycin HCl 2250 mg/Sodium Chloride 545 ml @ 200 mls/hr 1245 ONCE IV 11/15/17 12:45 11/15/17 15:28 DC 11/15/17 13:24 200 MLS/HR Piperacillin Sod/ Tazobactam Sod 3.375 gm/Dextrose 115 ml @ 230 mls/hr 1245 ONCE IV 11/15/17 12:45 11/15/17 13:14 DC 11/15/17 13:24 230 MLS/HR Vancomycin HCl 1500 mg/Sodium Chloride 530 ml @ 200 mls/hr Q18H IV 11/16/17 04:00 11/22/17 12:44 11/16/17 04:12 200 MLS/HR Insulin Aspart (novoLOG ASPART) SLIDING SCALE 0000,0400 SC 11/16/17 00:00 12/16/17 00:00 11/16/17 04:12 3 UNITS Insulin Human Regular 7 units/ Syringe 7 ml @ 30 mls/min TODAY@0030 IV 11/16/17 00:30 11/16/17 00:31 DC 11/16/17 00:27 30 MLS/MIN Insulin Detemir (Levemir Flexpen/ FlexTouch) see protocol text QAM SQ 11/16/17 09:00 12/16/17 08:59 11/16/17 09:50 15 UNITS Lidocaine (Lidoderm Patch 5%) 1 patch 1025 ONCE TD 11/16/17 10:25 11/16/17 10:52 DC 11/16/17 11:28 1 PATCH Potassium Chloride 100 ml @ 100 mls/hr Q1H IV 11/16/17 11:00 11/16/17 12:59 11/16/17 11:30 100 MLS/HR Potassium Chloride (Klor-Con M10) 40 meq NOW ONCE PO 11/16/17 10:30 11/16/17 10:52 DC 11/16/17 11:29 40 MEQ Furosemide 40 mg/ Syringe 4 ml @ 4 mls/min 1130 IV 11/16/17 11:30 11/16/17 12:00 11/16/17 11:29 4 MLS/MIN (Peggy Auguste, MARCELO) Objective Vital Signs Date Time Temp Pulse Resp B/P (MAP) Pulse Ox O2 Delivery O2 Flow Rate FiO2 11/16/17 10:34 107/71 (83) 11/16/17 07:36 36.7 79 20 116/73 (87) 99 2.0 11/16/17 07:09 87 18 96 Nasal Cannula 2.0 11/16/17 05:12 Nasal Cannula 2.0 11/16/17 01:43 72 18 96 Nasal Cannula 2.0 11/15/17 23:08 36.9 104 28 106/70 (82) 98 Nasal Cannula 2.0 11/15/17 21:02 78 18 96 Nasal Cannula 2.0 11/15/17 21:00 Nasal Cannula 2.0 11/15/17 16:00 90 Nasal Cannula 2.0 30 11/15/17 15:39 37.1 97 32 121/70 (87) 91 Nasal Cannula 2.0 11/15/17 15:16 72 18 99 Nasal Cannula 2.0 (Peggy Auguste CRNP) Physical Exam Notes: General: no distress Eyes: normal inspection, PERLL Respiratory: chest non tender, diminished lung rangel to auscultation, no respiratory distress, no accessory muscle use Cardiac: regular rate and rhythm, no rub or gallop, no murmur, no edema, no jvd GI/: active bowel sounds, no abd pain or tenderness, soft, non distended Extremities: normal range of motion, generalized weakness Neuro/Psych: alert and oriented x 3, normal mood and affect Skin: normal color, dry (Peggy Auguste, MARCELO) Laboratory Results Last 24 Hours Test 11/15/17 12:07 11/15/17 16:47 11/15/17 20:31 11/15/17 23:58 Arterial Blood pH 7.51 Arterial Blood Partial Pressure CO2 38 mmHg Arterial Blood Partial Pressure O2 75 mm/Hg Arterial Blood HCO3 29 mmol/L Arterial Blood Oxygen Saturation 94.4 % Arterial Blood Base Excess 5.9 mEq/L Arterial Blood Gas Delivery 2L Ramos Test POS Bedside Glucose 266 mg/dl 306 mg/dl 361 mg/dl Test 11/16/17 03:58 11/16/17 07:32 11/16/17 07:55 Bedside Glucose 224 mg/dl 202 mg/dl White Blood Count 3.92 K/uL Red Blood Count 3.93 M/uL Hemoglobin 9.3 g/dL Hematocrit 31.0 % Mean Corpuscular Volume 78.9 fL Mean Corpuscular Hemoglobin 23.7 pg Mean Corpuscular Hemoglobin Concent 30.0 g/dl Platelet Count 221 K/uL Mean Platelet Volume 10.0 fL Neutrophils (%) (Auto) 79.9 % Lymphocytes (%) (Auto) 11.7 % Monocytes (%) (Auto) 7.9 % Eosinophils (%) (Auto) 0.0 % Basophils (%) (Auto) 0.0 % Neutrophils # (Auto) 3.13 K/uL Lymphocytes # (Auto) 0.46 K/uL Monocytes # (Auto) 0.31 K/uL Eosinophils # (Auto) 0.00 K/uL Basophils # (Auto) 0.00 K/uL RDW Standard Deviation 55.6 fL RDW Coefficient of Variation 19.3 % Immature Granulocyte % (Auto) 0.5 % Immature Granulocyte # (Auto) 0.02 K/uL Sodium Level 141 mmol/L Potassium Level 2.8 mmol/L Chloride Level 103 mmol/L Carbon Dioxide Level 33 mmol/L Anion Gap 6.0 mmol/L Blood Urea Nitrogen 20 mg/dl Creatinine 1.36 mg/dl Est Creatinine Clear Calc Drug Dose 46.7 ml/min Estimated GFR () 53.8 Estimated GFR (Non- 46.5 BUN/Creatinine Ratio 14.7 Random Glucose 192 mg/dl Calcium Level 8.6 mg/dl (Peggy Auguste ., MARCELO) Assessment and Plan 86 y/o M Admitted multiple times this yr for pneumonia due to aspiration and CHF exacerbation again admitted because of aspiration pneumonia, An initial CXR showed a new RLL infiltrate. He required BiPAP to maintain an adequate saturation at the time of admission. Past medical history COPD, combined CHF, CAD, CKD 3-4, DM, chronic aspiration with recurrent PNM, adrenal insufficiency, chronic Ball w/recurrent UTIs, history of DVT, detention resident Aspiration pneumonia with sepsis POA: rapid deterioration yesterday - febrile, tachypneic, respiratory alkalosis - much improved today treated for 6 days with Cefepime, Azithromycin - changed to Zosyn and Vancomycin with decompensation yesterday, nebulizers increased infiltrate in right lower lobe on CXR 11/15 speech evaluation, recommend honey thick liquids, patient will not comply Acute hypoxic respiratory failure on chronic hypoxic failure oxygen levels stable on 2L Continue prn morphine added PRN for dyspnea Acute on Chronic diastolic and systolic HF pulmonary edema 11/15 on CXR and on exam Diuresed 3000cc yesterday after IV lasix - will continue with IV 40 mg lasix daily and hold po echo on 10/16 showed EF of 50-55% Hypokalemia K 2.8 today - 20 mEq IV and then 60 mg po total ordered for today prp am Possible acute on chronic CKD III, creatinine stable at 1.36 today diuresed 3000cc with Lasix yesterday prp am COPD exacerbation: triggered by pneumonia and pulmonary edema Solu Medrol 40mg IV q12 - started 11/15 continue to treat for 5 days, no taper duonebs Constipation, distension distended stomach on KUB on 11/12 had two BM yesterday, less distension today, eating better continue bowel regimen, prone to constipation - had two small bms yesterday DM/neuropathy eating poorly, monitor for hypoglycemia restarted home gabapentin 600 mg TID CAD - cont ASA, statin, Coreg Anemia - Hb is stable Adrenal insufficiency: resume Florinef now that he can take pills Do not resuscitate GI prophylaxis covered, heparin prophylaxis consult palliative care, discuss goals of care and POLST would not want BIPAP, would not want PEG tube goal is to get better to the point that he can return to [facility] understands he may get worse and require palliation inpatient (Peggy Auguste ., MARCELO) DATA INTEGRATION ANALYST Physician Supervision Note: I discussed with Peggy Auguste DATA INTEGRATION ANALYST and agree with findings and plan as documented in the note. Any exceptions or clarifications are listed here: None Patient has been here with a COPD exacerbation initially consideration of palliative care he did improve somewhat with diuresis will continue continue to support him with eventual placement at the [facility] facility Documented By: Stanford Dotson (Stanford Dotson M.D.)
--- NOTE | 2017-11-16 12:46 | Pharmacy Progress Note ---
Pharmacy Glycemic Short Note 2 Date of Service November 16, 2017. Test 11/15/17 16:47 11/15/17 20:31 11/15/17 23:58 11/16/17 03:58 Bedside Glucose 266 mg/dl (70-99) 306 mg/dl (70-99) 361 mg/dl (70-99) 224 mg/dl (70-99) Test 11/16/17 07:32 11/16/17 07:55 11/16/17 12:03 Bedside Glucose 202 mg/dl (70-99) 208 mg/dl (70-99) Random Glucose 192 mg/dl (70-99) ASSESSMENT: 11/16/17 * Pt started Solu-medrol 40mg IV Q12H yesterday x 5 days resulting in hyperglycemia * Tighten CF and CR and add additional Levemir dose in AM at this time * Add accuchecks overnight for pt on steroids 11/15/17 * Pt received 14 units of insulin yesterday, BSGs at goal * IV antibiotics changed to Cefdinir PO, IV fluids discontinued * Pt taking Boost glucose control with chocolate flavoring and boost pudding 11/14/17 * Patient received only 12 units of insulin yesterday * Dextrose IVFs continue. Boost Glucose Control w/ yary flavoring and Boost pudding have been added to help increase po intake. * Will continue with reduce Levemir dose. Expect that dextrose IVFs will be d/c 'd once BSGs increase to above goal. 11/13/17 * Patient received 32 units of insulin yesterday, unfortunately had a few hypoglycemic episodes overnight * He remains off IV steroids and did not have po intake this AM because he's been nauseous * D5NS + 20 K has been started at 80 cc/hr * I held the AM dose of Levemir * Upon review of previous admissions, we do not have any BSG data off steroids so I will estimate TDD based upon a reduction from yesterday's total requirements. Anticipate TDD ~15-20 units with the reduced po intake? 11/12/17 * 87yo T2DM male with severe hyperglycemia on admission secondary to aspiration pneumonia/stress/infection and a dose of solumedrol 125mg x 1 * Pt initiated on IV insulin infusion 11/10-11/11. Pt transitioned to SQ basal bolus insulin regimen in the afternoon of 11/11. * Pt has received 47 units of SQ insulin + IV insulin infusion over the past 24hrs. * 40 units of basal insulin with Lantus (as 30 units AM + 10 units PM) * 7 units of prandial insulin with NovoLog * IV insulin infusion average rate ~1.5 units/hr * BSGs below goal range today at 89, 98, 83. Insulin doses need empirically reduced to prevent subsequent hypoglycemia PLAN FOR INPATIENT GLYCEMIC CONTROL: * Basal insulin: Increase to BID * Lantus 0 units BID for BSG < 140 * Lantus 10 units BID for BSG 140-180 * Lantus 15 units BID for BSG > 180 * Bolus insulin: * NovoLog per scale ACHS or Q6hrs while NPO and at 0000 and 0400 * Goal Range: Low 140 mg/dL - High 180 mg/dL * TIGHTEN Correction Factor: 15 mg/dL/unit * TIGHTEN: Nutritional / Prandial insulin per carb ratio of 1 unit per 5 grams CHO consumed
[2017-11-16] MEDS: GABAPENTIN 600 MG TAB PO SCH ×2 (13:37→21:07)
[2017-11-16] MEDS ORDERED: POTASSIUM CHLORIDE 20 MEQ TABCR PO ONE (14:00)
[2017-11-16] MEDS: SIMETHICONE 80 MG CHEW PO PRN (21:05)
[2017-11-16] MEDS: FAMOTIDINE 20 MG TAB PO SCH (21:07)
[2017-11-16] MEDS: OXYCODONE HCL 15 MG TABCR (OXYCONTIN) PO SCH (21:19)
[2017-11-16] MEDS: TAMSULOSIN HCL 0.4 MG CAP PO SCH (21:21)
[2017-11-17] VITALS (9 sets, daily range): BP systolic 93–132; BP diastolic 56–81; PULSE 65–78; TEMP 36.7–36.9; O2SAT 88–98
[2017-11-17] MEDS: INSULIN ASPART 100 UNITS/ML 3 ML PEN SC SCH ×6 (00:11→21:21)
[2017-11-17] MEDS: ALBUT/IPRATROP 3MG/0.5MG NEB 3 ML VIAL INH SCH ×4 (01:52→19:28)
[2017-11-17] MEDS: PIPERACILL/TAZOBAC IV 3.375 GM in DEXTROSE 5% 100ML 100 ML IV SCH ×3 (02:14→17:27)
[2017-11-17] MEDS: HEPARIN SOD 5000 UNIT/0.5 ML CARP SQ SCH ×3 (06:26→21:24)
[2017-11-17 07:20] LABS: HEMATOCRIT 30.9 % (42-52); HEMOGLOBIN 8.7 g/dL (14.0-18.0); MEAN CELL VOLUME 81.1 fL (80-100); MEAN CORPUSCULAR HEMOGLOBIN 22.8 pg (25-34); MEAN CORPUSCULAR HGB CONC 28.2 g/dl (32-36); MEAN PLATELET VOLUME 9.7 fL (7.4-10.4); NUCLEATED RED BLOOD CELL ABS 0.02 K/uL (0-0); PLATELET COUNT 238 K/uL (130-400); RED CELL DISTRIBUTION WIDTH CV 19.9 % (11.5-14.5); RED CELL DISTRIBUTION WIDTH SD 58.9 fL (36.4-46.3); WHITE BLOOD COUNT 5.17 K/uL (4.8-10.8)
[2017-11-17 07:49] LABS: CALCIUM 8.6 mg/dl (8.5-10.1); CREATININE 1.53 mg/dl (0.60-1.40); POTASSIUM 3.7 mmol/L (3.5-5.1)
[2017-11-17] MEDS ORDERED: FUROSEMIDE INJ 40 MG in SYRINGE 0 ML IV SCH (09:00)
[2017-11-17] MEDS: FUROSEMIDE 40 MG TAB PO SCH ×3 (09:00→17:27)
[2017-11-17] MEDS: LIDODERM (LIDOCAINE) PATCH 5% TD SCH (09:01)
[2017-11-17] MEDS: POTASSIUM CHLORIDE 20 MEQ TABCR PO SCH ×3 (09:01→21:25)
[2017-11-17] MEDS: GUAIFENESIN 600 MG TABCR PO SCH ×2 (09:02→21:25)
[2017-11-17] MEDS: CYANOCOBALAMIN 500 MCG TAB (VIT B-12) PO SCH (09:03)
[2017-11-17] MEDS: GABAPENTIN 600 MG TAB PO SCH ×3 (09:05→21:26)
[2017-11-17] MEDS: FLUDROCORTISONE ACETATE 0.1 MG TAB PO SCH ×2 (09:05→21:28)
[2017-11-17] MEDS: PANTOprazole SOD 40 MG TAB PO SCH (09:05)
[2017-11-17] MEDS: POLYETHYLENE (MIRALAX) 17 GM PACK PO SCH ×2 (09:06→21:26)
[2017-11-17] MEDS: BOOST VANILLA PUDDING CUP PO SCH (09:07)
[2017-11-17] MEDS: DULOXETINE (CYMBALTA) 30 MG CAP PO SCH (09:08)
[2017-11-17] MEDS: DOCUSATE SODIUM 100 MG CAP PO SCH ×2 (09:08→21:26)
[2017-11-17] MEDS: BISACODYL 5 MG TABEC PO SCH ×2 (09:11→21:25)
[2017-11-17] MEDS: ARTIFICIAL TEARS OP SOLN OPB SCH ×2 (09:12→21:28)
[2017-11-17] MEDS: METHYLPREDNISOLONE IV 40 MG in SYRINGE 0 ML IV SCH ×2 (09:12→21:24)
[2017-11-17] MEDS: OXYCODONE HCL 15 MG TABCR (OXYCONTIN) PO SCH ×2 (09:12→21:25)
[2017-11-17] MEDS: BOOST GLUCOSE CONTROL PO SCH ×2 (09:13→17:27)
[2017-11-17] MEDS: ASPIRIN 81 MG CHEW PO SCH (09:15)
[2017-11-17] MEDS: INSULIN DETEMIR FLEXPEN/FLEX TOUCH 100 UNITS/ML 3ML SQ SCH ×2 (09:24→21:23)
[2017-11-17] MEDS: MAGNESIUM OXIDE 400 MG TAB PO SCH ×2 (10:42→21:28)
--- NOTE | 2017-11-17 13:38 | Hospitalist Progress Note ---
Hospitalist Progress Note Date of Service November 17, 2017. (Peggy Auguste ., MARCELO) Subjective Pt evaluation today including: conversation w/ patient, physical exam, chart review, lab review, review of inpatient medication list Voiding: gomez catheter in place Mr. Enciso continues to feel better, he is not having sob. He is still coughing, productive of yellow sputum. ROS Constitutional: no chills, aches, sweats or fever Respiratory: see HPI Cardiac: no chest pain, palpitations, edema, orthopnea or lightheadedness GI: no abdominal pain, nausea, vomiting, diarrhea or constipation : no dysuria or hesitancy Extremities: no joint pain or weakness Skin: no rash All other systems reviewed and negative (Peggy Auguste CRNP) Medications Medications Administered Medications (Trade) Dose Ordered Sig/Cole Route Start Time Stop Time Status Last Admin Dose Admin Methylprednisolone Sodium Succinate (Solu-Medrol IV) 125 mg NOW STAT IV 11/09/17 20:47 11/09/17 20:49 DC 11/09/17 20:56 125 MG Albuterol/ Ipratropium (Duoneb) 12 ml ONE ONCE INH 11/09/17 21:00 11/09/17 21:01 DC 11/09/17 21:14 12 ML Furosemide 20 mg/ Syringe 2 ml @ 4 mls/min ONE ONCE IV 11/09/17 21:00 11/09/17 21:01 DC 11/09/17 21:00 4 MLS/MIN Piperacillin Sod/ Tazobactam Sod (Zosyn Iv) 4.5 gm NOW STAT IV 11/09/17 21:36 11/10/17 07:40 DC 11/09/17 22:01 4.5 GM Acetaminophen (Tylenol Tab) 650 mg NOW STAT PO 11/09/17 21:36 11/09/17 21:37 DC 11/09/17 22:21 650 MG Vancomycin HCl 2250 mg/Sodium Chloride 545 ml @ 200 mls/hr TODAY@0200 ONCE IV 11/10/17 02:00 11/10/17 04:43 DC 11/10/17 01:57 200 MLS/HR Aspirin (Aspirin Chew) 81 mg QAM PO 11/10/17 09:00 12/10/17 08:59 Future hold 11/17/17 09:15 81 MG Atenolol (Tenormin Tab) 12.5 mg QAM PO 11/10/17 09:00 12/10/17 08:59 Future hold 11/17/17 09:03 12.5 MG Bisacodyl (Dulcolax Tab) 5 mg BID PO 11/10/17 09:00 12/10/17 08:59 Future hold 11/17/17 09:11 5 MG Docusate Sodium (coLACE CAP) 100 mg BID PO 11/10/17 09:00 12/10/17 08:59 11/17/17 09:08 100 MG Duloxetine HCl (Cymbalta Cap) 30 mg DAILY PO 11/10/17 09:00 12/10/17 08:59 11/17/17 09:08 30 MG Famotidine (Pepcid Tab) 20 mg HS PO 11/10/17 21:00 12/10/17 20:59 Future hold 11/16/17 21:07 20 MG Fludrocortisone Acetate (Florinef Tab) 0.1 mg BID PO 11/10/17 09:00 12/10/17 08:59 Future hold 11/17/17 09:05 0.1 MG Guaifenesin (Mucinex Contr Rel Tab) 1,200 mg Q12 PO 11/10/17 09:00 12/10/17 08:59 Future hold 11/17/17 09:02 1,200 MG Magnesium Oxide (Mag-Ox Tab) 400 mg BID PO 11/10/17 09:00 12/10/17 08:59 Future hold 11/17/17 10:42 400 MG Oxycodone HCl (Oxycontin Tab) 15 mg Q12 PO 11/10/17 09:00 11/24/17 08:59 Future hold 11/17/17 09:12 15 MG Simethicone (Mylicon Chew Tab) 80 mg QID PRN PO 11/09/17 23:00 12/09/17 22:59 Future hold 11/16/17 21:05 80 MG Tamsulosin HCl (Flomax Cap) 0.4 mg HS PO 11/10/17 21:00 12/10/17 20:59 Future hold 11/16/17 21:21 0.4 MG Cyanocobalamin (Vitamin B-12 Tab) 1,000 mcg QAM PO 11/10/17 09:00 12/10/17 08:59 Future hold 11/17/17 09:03 1,000 MCG Miscellaneous Information (Order Awaiting Action) 1 ea QS N/A 11/10/17 08:00 11/11/17 20:20 DC 11/10/17 16:00 1 EA Insulin Detemir (Levemir Flexpen/ FlexTouch) 20 units ONE ONCE SQ 11/10/17 06:45 11/10/17 06:46 DC 11/10/17 07:43 20 UNITS Polyethylene (Miralax Powder Packet) 17 gm BID PO 11/10/17 09:00 12/10/17 08:59 Future hold 11/17/17 09:06 17 GM Artificial Tears (Artificial Tears) 1 drops BID OPB 11/10/17 09:00 12/10/17 08:59 11/17/17 09:12 1 DROPS Hydrocortisone Sodium Succinate 100 mg/Syringe 2 ml @ 4 mls/min Q8H IV 11/10/17 03:00 11/11/17 11:20 DC 11/11/17 11:04 4 MLS/MIN Sodium Chloride 1,000 ml @ 50 mls/hr Q20H IV 11/10/17 00:30 11/10/17 19:07 DC 11/10/17 01:58 50 MLS/HR Acetaminophen (Tylenol Tab) 650 mg Q4H PRN PO 11/09/17 23:30 12/09/17 23:29 Future hold 11/15/17 09:29 650 MG Ondansetron HCl (Zofran Inj) 4 mg Q6H PRN IV 11/09/17 23:30 12/09/17 23:29 11/13/17 07:55 4 MG Albuterol/ Ipratropium (Duoneb) 3 ml Q6R INH 11/10/17 03:00 12/10/17 02:59 11/17/17 07:00 3 ML Morphine Sulfate (MoRPHine SULFATE INJ) 4 mg Q2H PRN IV 11/09/17 23:30 11/23/17 23:29 11/15/17 18:11 4 MG Heparin Sodium (Porcine) (Heparin Sq 5000 Unit/0.5ml) 5,000 unit Q8H SQ 11/10/17 06:00 12/10/17 05:59 5/6/18 13:26 5,000 UNIT Insulin Aspart (novoLOG ASPART) SLIDING SCALE Q4 SC 11/10/17 06:30 11/10/17 09:02 DC 11/10/17 07:42 18 UNITS Azithromycin 500 mg/Dextrose 255 ml @ 125 mls/hr ONE ONCE IV 11/10/17 07:45 11/10/17 09:47 DC 11/10/17 08:09 125 MLS/HR Azithromycin 250 mg/Dextrose 252.5 ml @ 125 mls/hr DAILY IV 11/11/17 09:00 11/14/17 11:02 DC 11/14/17 09:01 125 MLS/HR Insulin Human Regular (Insulin IV Infusion Protocol) 1 ea Q10M N/A 11/10/17 08:09 11/10/17 08:54 DC 11/10/17 08:49 1 EA Insulin Aspart (novoLOG ASPART) SLIDING SCALE PCHS OK 11/10/17 08:00 11/11/17 18:00 DC 11/11/17 16:39 3 UNITS Miscellaneous (Insulin Protocol Goal Range (Other)) 1 ea ONE ONCE N/A 11/10/17 07:45 11/10/17 08:10 DC 11/10/17 07:45 1 EA Cefepime HCl 1000 mg/Syringe 11 ml @ 5.5 mls/min DAILY IV 11/10/17 09:00 11/14/17 15:06 DC 11/14/17 09:39 5.5 MLS/MIN Insulin Human Regular (NovoLIN R BOLUS FROM BAG) 2.5 unit ONE ONCE IV 11/10/17 09:00 11/10/17 09:05 DC 11/10/17 09:21 2.5 UNIT Insulin Human Regular 250 units/ Sodium Chloride 252.5 ml @ 2.5 mls/hr Q24H IV 11/10/17 09:00 11/11/17 18:00 DC 11/11/17 08:57 2.5 MLS/HR Dextrose (Dextrose 50% 50ML Syringe) 25-50ML OF 50% DW IV FOR... UD PRN IV 11/10/17 09:00 12/10/17 08:59 11/13/17 07:35 25 ML Pantoprazole Sodium 40 mg/ Syringe 10 ml @ 5 mls/min DAILY@11 IV 11/11/17 11:00 11/11/17 20:41 DC 11/11/17 11:04 5 MLS/MIN Sodium Chloride 1,000 ml @ 50 mls/hr Q20H IV 11/10/17 23:30 11/13/17 08:32 DC 11/12/17 16:14 50 MLS/HR Potassium Chloride 100 ml @ 100 mls/hr Q1H IV 11/11/17 06:02 11/11/17 10:01 DC 11/11/17 10:37 100 MLS/HR Metoprolol Tartrate (Lopressor Iv) 2.5 mg Q6 IV. 11/11/17 12:00 11/11/17 20:40 DC 11/11/17 18:16 2.5 MG Metoprolol Tartrate (Lopressor Iv) 2.5 mg 0657 ONCE IV. 11/11/17 06:57 11/11/17 07:02 DC 11/11/17 07:29 2.5 MG Insulin Detemir (Levemir Flexpen/ FlexTouch) 30 units NOW ONCE SQ 11/11/17 12:00 11/11/17 12:01 DC 11/11/17 12:11 30 UNITS Insulin Aspart (novoLOG ASPART) SLIDING SCALE Q4 SC 11/11/17 20:00 11/12/17 08:33 DC 11/11/17 20:24 2 UNITS Insulin Detemir (Levemir Flexpen/ FlexTouch) QPM ONCE SQ 11/11/17 21:00 11/11/17 21:01 DC 11/11/17 22:08 10 UNITS Miscellaneous Information (Dc Iv Insulin Infusion) 1 ea TODAY@1800 ONCE N/A 11/11/17 18:00 11/11/17 18:01 DC 11/11/17 18:14 1 EA Dutasteride (Avodart) 0.5 mg DAILY PO 11/12/17 09:00 12/12/17 08:59 11/17/17 09:07 0.5 MG Pantoprazole Sodium (Protonix Tab) 40 mg QAM PO 11/12/17 09:00 12/12/17 08:59 11/17/17 09:05 40 MG Potassium Chloride (Klor-Con Tab) 20 meq TID PO 11/12/17 09:00 11/13/17 08:32 DC 11/12/17 20:56 20 MEQ Insulin Detemir (Levemir Flexpen/ FlexTouch) BID SQ 11/12/17 09:00 11/13/17 13:55 DC 11/12/17 17:44 15 UNITS Insulin Aspart (novoLOG ASPART) SLIDING SCALE ACHS SC 11/12/17 08:45 12/12/17 08:44 11/17/17 12:54 18 UNITS Potassium Chloride (Klor-Con Tab) 40 meq TID PO 11/13/17 09:00 12/12/17 08:59 11/17/17 13:26 40 MEQ Potassium Chloride/Dextrose/ Sod Cl 1,000 ml @ 80 mls/hr [id number] IV 11/13/17 08:45 11/14/17 15:12 DC 11/14/17 10:36 80 MLS/HR Potassium Chloride 100 ml @ 100 mls/hr Q1H IV 11/13/17 08:45 11/13/17 12:44 DC 11/13/17 12:42 100 MLS/HR Insulin Detemir (Levemir Flexpen/ FlexTouch) see protocol text HS SQ 11/13/17 21:00 12/13/17 20:59 11/16/17 21:14 15 UNITS Enteral Nutritional Formula (Boost Pudding) 1 cup DAILY PO 11/14/17 09:00 12/14/17 08:59 11/17/17 09:07 1 CUP Enteral Nutritional Formula (Boost Glucose Control) 1 can BIDM PO 11/13/17 17:00 12/13/17 16:59 11/17/17 09:13 1 CAN Lorazepam 1 mg/ Syringe 1 ml @ 1 mls/min Q6H PRN IV 11/13/17 20:15 12/13/17 20:14 11/16/17 21:16 1 MLS/MIN Potassium Chloride 100 ml @ 100 mls/hr Q1H IV 11/14/17 09:30 11/14/17 11:29 DC 11/14/17 11:16 100 MLS/HR Cefdinir (Omnicef Cap) 300 mg Q12 PO 11/15/17 09:00 11/15/17 11:44 DC 11/15/17 09:10 300 MG Furosemide (Lasix Tab) 40 mg BID17 PO 11/14/17 17:00 12/14/17 16:59 Future hold 11/15/17 17:20 40 MG Methylprednisolone Sodium Succinate 60 mg/Syringe 0.96 ml @ 1.5 mls/min ONE ONCE IV 11/15/17 10:45 11/15/17 10:46 DC 11/15/17 11:12 1.5 MLS/MIN Methylprednisolone Sodium Succinate 40 mg/Syringe 0.64 ml @ 1.5 mls/min Q12 IV 11/15/17 21:00 12/15/17 20:59 11/17/17 09:12 1.5 MLS/MIN Furosemide 40 mg/ Syringe 4 ml @ 4 mls/min ONE ONCE IV 11/15/17 10:45 11/15/17 10:46 DC 11/15/17 11:15 4 MLS/MIN Potassium Chloride 100 ml @ 100 mls/hr TODAY@1100,1200,1300,1400 IV 11/15/17 11:00 11/15/17 14:59 DC 11/15/17 15:00 100 MLS/HR Piperacillin Sod/ Tazobactam Sod 3.375 gm/Dextrose 115 ml @ 28.75 mls/ hr Q8H IV 11/15/17 18:00 11/22/17 12:44 11/17/17 10:42 28.75 MLS/HR Vancomycin HCl 2250 mg/Sodium Chloride 545 ml @ 200 mls/hr 1245 ONCE IV 11/15/17 12:45 11/15/17 15:28 DC 11/15/17 13:24 200 MLS/HR Piperacillin Sod/ Tazobactam Sod 3.375 gm/Dextrose 115 ml @ 230 mls/hr 1245 ONCE IV 11/15/17 12:45 11/15/17 13:14 DC 11/15/17 13:24 230 MLS/HR Vancomycin HCl 1500 mg/Sodium Chloride 530 ml @ 200 mls/hr Q18H IV 11/16/17 04:00 11/22/17 12:44 11/16/17 21:27 200 MLS/HR Insulin Aspart (novoLOG ASPART) SLIDING SCALE 0000,0400 SC 11/16/17 00:00 12/16/17 00:00 11/17/17 00:11 5 UNITS Insulin Human Regular 7 units/ Syringe 7 ml @ 30 mls/min TODAY@0030 IV 11/16/17 00:30 11/16/17 00:31 DC 11/16/17 00:27 30 MLS/MIN Insulin Detemir (Levemir Flexpen/ FlexTouch) see protocol text QAM SQ 11/16/17 09:00 12/16/17 08:59 11/17/17 09:24 10 UNITS Lidocaine (Lidoderm Patch 5%) 1 patch QAM TD 11/17/17 09:00 12/17/17 08:59 11/17/17 09:01 1 PATCH Lidocaine (Lidoderm Patch 5%) 1 patch 1025 ONCE TD 11/16/17 10:25 11/16/17 10:52 DC 11/16/17 11:28 1 PATCH Potassium Chloride 100 ml @ 100 mls/hr Q1H IV 11/16/17 11:00 11/16/17 12:59 DC 11/16/17 13:37 100 MLS/HR Potassium Chloride (Klor-Con M10) 40 meq NOW ONCE PO 11/16/17 10:30 11/16/17 10:52 DC 11/16/17 11:29 40 MEQ Potassium Chloride (Klor-Con Tab) 20 meq 1400 ONCE PO 11/16/17 14:00 11/16/17 14:01 DC 11/16/17 13:39 20 MEQ Gabapentin (Neurontin Tab) 600 mg TID PO 11/16/17 14:00 12/16/17 13:59 11/17/17 13:26 600 MG Furosemide 40 mg/ Syringe 4 ml @ 4 mls/min 1130 IV 11/16/17 11:30 11/16/17 12:00 DC 11/16/17 11:29 4 MLS/MIN (Peggy Auguste, MARCELO) Objective Vital Signs Date Time Temp Pulse Resp B/P (MAP) Pulse Ox O2 Delivery O2 Flow Rate FiO2 11/17/17 10:41 93/56 (68) 11/17/17 07:19 36.7 75 20 132/81 (98) 94 11/17/17 07:01 76 18 94 Nasal Cannula 2.0 11/17/17 01:52 78 18 98 Nasal Cannula 2.0 11/17/17 00:20 Nasal Cannula 2.0 11/16/17 23:43 36.9 70 18 113/55 (74) 93 2.0 11/16/17 20:41 Nasal Cannula 2.0 11/16/17 19:00 88 18 97 Nasal Cannula 2.0 11/16/17 16:00 Nasal Cannula 2.0 11/16/17 14:49 36.0 81 20 108/68 (81) 98 11/16/17 14:17 91 18 98 Nasal Cannula 2.0 (Peggy Auguste CRNP) Physical Exam Notes: General: no distress Eyes: normal inspection, PERLL Respiratory: chest non tender, crackles right base and middle lobe, left lung with normal breath sounds, no respiratory distress, no accessory muscle use Cardiac: regular rate and rhythm, no rub or gallop, no murmur, no edema, no jvd GI/: active bowel sounds, no abd pain or tenderness, soft, non distended Extremities: normal range of motion, normal strength, non tender Neuro/Psych: alert and oriented x 3, normal mood and affect Skin: normal color, dry (Peggy Auguste CRNP) Laboratory Results Last 24 Hours Test 11/16/17 16:41 11/16/17 20:36 11/17/17 00:05 11/17/17 03:47 Bedside Glucose 239 mg/dl 224 mg/dl 201 mg/dl 112 mg/dl Test 11/17/17 06:49 11/17/17 07:39 11/17/17 11:17 White Blood Count 5.17 K/uL Red Blood Count 3.81 M/uL Hemoglobin 8.7 g/dL Hematocrit 30.9 % Mean Corpuscular Volume 81.1 fL Mean Corpuscular Hemoglobin 22.8 pg Mean Corpuscular Hemoglobin Concent 28.2 g/dl RDW Standard Deviation 58.9 fL RDW Coefficient of Variation 19.9 % Platelet Count 238 K/uL Mean Platelet Volume 9.7 fL Nucleated RBC Absolute Count (auto) 0.02 K/uL Nucleated Red Blood Cells % 0.3 % Sodium Level 146 mmol/L Potassium Level 3.7 mmol/L Chloride Level 110 mmol/L Carbon Dioxide Level 34 mmol/L Anion Gap 2.0 mmol/L Blood Urea Nitrogen 26 mg/dl Creatinine 1.53 mg/dl Est Creatinine Clear Calc Drug Dose 41.5 ml/min Estimated GFR () 46.7 Estimated GFR (Non- 40.3 BUN/Creatinine Ratio 16.9 Random Glucose 114 mg/dl Calcium Level 8.6 mg/dl Bedside Glucose 119 mg/dl 270 mg/dl (Peggy Auguste .MARCELO) Assessment and Plan 86 y/o M Admitted multiple times this yr for pneumonia due to aspiration and CHF exacerbation again admitted because of aspiration pneumonia, An initial CXR showed a new RLL infiltrate. He required BiPAP to maintain an adequate saturation at the time of admission. Past medical history COPD, combined CHF, CAD, CKD 3-4, DM, chronic aspiration with recurrent PNM, adrenal insufficiency, chronic Gomez w/recurrent UTIs, history of DVT, group home resident Aspiration pneumonia with sepsis POA: rapid deterioration 11/16 - febrile, tachypneic, respiratory alkalosis - much improved today treated for 6 days with Cefepime, Azithromycin - changed to Zosyn and Vancomycin with decompensation, nebulizers increased infiltrate in right lower lobe on CXR 11/15 speech evaluation, recommend honey thick liquids, patient will not comply Acute hypoxic respiratory failure on chronic hypoxic failure oxygen levels stable on 2L Continue prn morphine added PRN for dyspnea acute failure resolved Acute on Chronic diastolic and systolic HF pulmonary edema 11/15 on CXR and on exam Diuresed well with IV lasix - held this morning for low bp, will restart po lasix this afternoon echo on 10/16 showed EF of 50-55% Hypokalemia resolved prp am Possible acute on chronic CKD III, creatinine increased to 1.5 today - morning lasix held for low bp prp am COPD exacerbation: triggered by pneumonia and pulmonary edema Solu Medrol 40mg IV q12 - started 11/15 continue to treat for 5 days, no taper duonebs Constipation, distension continue bowel regimen, prone to constipation DM/neuropathy eating poorly, monitor for hypoglycemia continue home gabapentin 600 mg TID CAD - cont ASA, statin, Coreg Anemia - Hb is stable Adrenal insufficiency: continue Florinef Do not resuscitate GI prophylaxis covered, heparin prophylaxis consult palliative care, discuss goals of care and POLST would not want BIPAP, would not want PEG tube goal is to get better to the point that he can return to [facility] (Peggy Auguste CRNP) 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 Any exceptions or clarifications are listed here: None Patient continues with a COPD exacerbation initially consideration of palliative care he did improve somewhat with diuresis continue to support him with eventual placement at the [facility] Documented By: Stanford Dotson (Stanford Dotson M.D.)
--- NOTE | 2017-11-17 14:27 | DIAGNOSTIC IMAGING REPORT ---
CHEST ONE VIEW PORTABLE HISTORY: 87 years-old Male pneumonia follow-up study in a patient with pneumonia COMPARISON: Chest radiograph 11/15/2017 TECHNIQUE: Portable AP view of the chest FINDINGS: Cardiac silhouette is mildly enlarged. The patient is slightly rotated to the right. There is no pneumothorax. Previously questioned left upper lobe pulmonary nodule is not definitively seen. Trace right pleural effusion with bibasilar alveolar opacities, notably within the basal right lower lobe. There is slightly improved aeration of the right lung base. No overt pulmonary edema. Bones appear grossly intact. IMPRESSION: 1. Mildly improved aeration of the right lung base with persistent right lung base consolidation suggesting pneumonia. 2. Subsegmental left basilar opacities favor atelectasis. 3. Trace right pleural effusion. The above report was generated using voice recognition software. It may contain grammatical, syntax or spelling errors. Electronically signed by: Jl Kelley M.D. 11/17/2017 2:26 PM Dictated Date/Time: 11/17/2017 2:23 PM
[2017-11-17] MEDS ORDERED: VANCOMYCIN TROUGH ONE (15:30)
[2017-11-17] MEDS: LEVALBUTEROL 1.25MG/3ML NEB INH PRN (16:36)
[2017-11-17] MEDS: VANCOMYCIN IV 1,250 MG in SODIUM CHLORIDE 0.9% 250ML 250 ML IV SCH (18:25)
--- NOTE | 2017-11-17 18:55 | Pharmacy Progress Note ---
Pharmacy Abx Dose Short Note Date of Service November 17, 2017. Assessment & Plan Mr. Enciso's trough prior to the third maintenance dose was slightly elevated, 18.0mcg/mL. Renal fxn declining along with his habitus is strongly indicative of vancomycin accumulation. Will decrease dose to vanco 1250mg (13mg/kg) q18. Trough ordered for 11/19/17 @0530. Pharmacy will continue to follow and will adjust dose/frequency as necessary. Thank you.
[2017-11-17] MEDS: TAMSULOSIN HCL 0.4 MG CAP PO SCH (21:26)
[2017-11-17] MEDS: FAMOTIDINE 20 MG TAB PO SCH (21:27)
[2017-11-17] MEDS: LORAZEPAM INJ 1 MG in SYRINGE 0.5 ML IV PRN (21:29)
[2017-11-18] MEDS: INSULIN ASPART 100 UNITS/ML 3 ML PEN SC SCH ×6 (00:05→22:04)
[2017-11-18 02:04] VITALS: PULSE 76; O2SAT 93
[2017-11-18] MEDS: PIPERACILL/TAZOBAC IV 3.375 GM in DEXTROSE 5% 100ML 100 ML IV SCH ×3 (02:04→17:19)
[2017-11-18] MEDS: ALBUT/IPRATROP 3MG/0.5MG NEB 3 ML VIAL INH SCH ×4 (02:04→19:11)
[2017-11-18] MEDS: HEPARIN SOD 5000 UNIT/0.5 ML CARP SQ SCH ×3 (06:01→22:06)
[2017-11-18 07:12] VITALS: BP 133/78; PULSE 68; TEMP 36.5; O2SAT 94
[2017-11-18 07:17] VITALS: PULSE 68; O2SAT 94
[2017-11-18 07:18] LABS: HEMATOCRIT 31.2 % (42-52); HEMOGLOBIN 8.6 g/dL (14.0-18.0); MEAN CELL VOLUME 82.3 fL (80-100); MEAN CORPUSCULAR HEMOGLOBIN 22.7 pg (25-34); MEAN CORPUSCULAR HGB CONC 27.6 g/dl (32-36); MEAN PLATELET VOLUME 9.2 fL (7.4-10.4); PLATELET COUNT 231 K/uL (130-400); RED CELL DISTRIBUTION WIDTH CV 20.1 % (11.5-14.5); WHITE BLOOD COUNT 5.08 K/uL (4.8-10.8)
[2017-11-18 07:46] LABS: CALCIUM 8.1 mg/dl (8.5-10.1); CREATININE 1.48 mg/dl (0.60-1.40); POTASSIUM 4.5 mmol/L (3.5-5.1)
[2017-11-18] MEDS: BOOST GLUCOSE CONTROL PO SCH ×2 (07:58→17:19)
--- NOTE | 2017-11-18 09:26 | Pharmacy Progress Note ---
Pharmacy Glycemic Short Note 2 Date of Service November 18, 2017. OUTPATIENT REGIMEN: * Novolog mix 70/30 - 25 units SQ AM, 10 units SQ PM + Levemir 20 units SQ HS Item Value Date Time Bedside Glucose 119 mg/dl H 11/17/17 0739 Bedside Glucose 270 mg/dl H 11/17/17 1117 Bedside Glucose 223 mg/dl H 11/17/17 1547 Bedside Glucose 219 mg/dl H 11/17/17 1651 Bedside Glucose 192 mg/dl H 11/17/17 2037 Bedside Glucose 148 mg/dl H 11/17/17 2350 Bedside Glucose 143 mg/dl H 11/18/17 0349 ASSESSMENT: * No changes to risk factors for insulin resistance. Pt remains on solu-medrol 40 mg IV every 12 hours. * Pt received a total of 110 units of insulin yesterday: * 25 units of basal * 85 units of bolus * Fasting BSG of 144 mg/dL is near goal. Will slightly increase basal insulin. * Post prandial BSGs improving. Carb ratio was tightened last evening PLAN FOR INPATIENT GLYCEMIC CONTROL: * Basal insulin: * Lantus 0 units BID for BSG < 100 * Lantus 15 units BID for BSG 100-180 * Lantus 18 units BID for BSG > 180 * Bolus insulin: * NovoLog per scale ACHS or Q6hrs while NPO * Goal Range: Low 110 mg/dL - High 140 mg/dL * TIGHTEN Correction Factor: 15 mg/dL/unit * TIGHTEN: Nutritional / Prandial insulin per carb ratio of 1 unit per 4 grams CHO consumed
[2017-11-18] MEDS: BISACODYL 5 MG TABEC PO SCH ×2 (09:28→21:00)
[2017-11-18] MEDS: POLYETHYLENE (MIRALAX) 17 GM PACK PO SCH ×2 (09:28→21:00)
[2017-11-18] MEDS: DULOXETINE (CYMBALTA) 30 MG CAP PO SCH (09:29)
[2017-11-18] MEDS: DOCUSATE SODIUM 100 MG CAP PO SCH ×2 (09:29→22:07)
[2017-11-18] MEDS: ASPIRIN 81 MG CHEW PO SCH (09:29)
[2017-11-18] MEDS: FUROSEMIDE 40 MG TAB PO SCH (09:29)
[2017-11-18] MEDS: POTASSIUM CHLORIDE 20 MEQ TABCR PO SCH ×3 (09:30→22:11)
[2017-11-18] MEDS: GABAPENTIN 600 MG TAB PO SCH ×3 (09:31→22:08)
[2017-11-18] MEDS: FLUDROCORTISONE ACETATE 0.1 MG TAB PO SCH ×2 (09:31→22:12)
[2017-11-18] MEDS: PANTOprazole SOD 40 MG TAB PO SCH (09:32)
[2017-11-18] MEDS: GUAIFENESIN 600 MG TABCR PO SCH ×2 (09:32→22:07)
[2017-11-18] MEDS: MAGNESIUM OXIDE 400 MG TAB PO SCH ×2 (09:35→22:10)
[2017-11-18] MEDS: CYANOCOBALAMIN 500 MCG TAB (VIT B-12) PO SCH (09:36)
[2017-11-18] MEDS: ARTIFICIAL TEARS OP SOLN OPB SCH ×2 (09:36→22:09)
[2017-11-18] MEDS: METHYLPREDNISOLONE IV 40 MG in SYRINGE 0 ML IV SCH ×2 (09:36→22:09)
[2017-11-18] MEDS: BOOST VANILLA PUDDING CUP PO SCH (09:37)
[2017-11-18] MEDS: LIDODERM (LIDOCAINE) PATCH 5% TD SCH (09:38)
[2017-11-18] MEDS: INSULIN DETEMIR FLEXPEN/FLEX TOUCH 100 UNITS/ML 3ML SQ SCH ×2 (09:53→22:05)
[2017-11-18] MEDS: OXYCODONE HCL 15 MG TABCR (OXYCONTIN) PO SCH ×2 (10:06→21:00)
[2017-11-18] MEDS: VANCOMYCIN IV 1,250 MG in SODIUM CHLORIDE 0.9% 250ML 250 ML IV SCH (12:23)
[2017-11-18] MEDS ORDERED: FUROSEMIDE INJ 40 MG in SYRINGE 0 ML IV ONE (13:30)
--- NOTE | 2017-11-18 14:07 | Palliative Care Consultation ---
Consultation Date of Consultation: November 18, 2017. Requesting Physician: Dr. Coyne Attending Physician: Dr. Becerra Reason for Consultation: Goals of Care History of Present Illness This is an 86 year-old male patient who has had multiple readmissions this year for aspiration PNA, CHF, and acute on chronic COPD exacerbations. The patient had acute on chronic respiratory failure for which, at this time, has resolved and he is stable on 2LNC. The patient has been evaluated by Speech Therapy and was recommended to have nectar-thickened liquids, but the patient is not complying with the recommended regimen. We had a lengthy discussion while he was sitting in his chair, with his , regarding GOALS OF CARE. Over the weekend, the patient made the decision that he DECLINES BiPAP and a feeding tube in the event of continued aspiration and worsening COPD and CHF exacerbations. The patient and the , Isabela, had a lot of questions regarding comfort measures and what that would look like. I explained how when his CO2 levels would increase, since he is no longer willing to use a BiPAP, that they could provide O2 support, with nebulizer treatments, and medications to help lessen air hunger. I explained how, with his current DNR and declining of BiPAP, that the treatment would be the same coming to the hospital. He agreed that from a quality of life standpoint (in his and his 's eyes) that they would prefer to remain at [facility] with the staff and providers known to them. The patient has stated that he would be interested in learning about Hospice services that can be offered to the patient at [facility] - Case management made aware. A POLST form was filled out at the bedside with the patient and his 's involvement. A copy was placed on the chart, along with the original until discharge. Thank you kindly for consulting Palliative Care to be involved in this patient' s care. Past Medical/Surgical History Medical History: COPD CHF CAD CKD Stage IV DM Social History Smoking Status: Former Smoker History of Alcohol Use: Yes (2 DRINKS/ WEEK) Drug Use: none Marital Status: Housing Status: [facility] Occupation Status: retired Review of Systems General: Patient denies pain HEENT: Patient denies MIJARES, dizziness Cardiac: Patient denies CP, palpitations, edema Respiratory: Patient states he has SOB at times when he is active GI: Patient denies abdominal tenderness, N/V/D : Patient denies urinary changes Skin: Patient denies any new skin rashes Allergies Coded Allergies: No Known Allergies (Unverified , 08/28/17) Medications Current Inpatient Medications Medications (Trade) Dose Ordered Sig/Cole Route Start Time Stop Time Status Last Admin Dose Admin Aspirin (Aspirin Chew) 81 mg QAM PO 11/10/17 09:00 12/10/17 08:59 Future hold 11/18/17 09:29 81 MG Atenolol (Tenormin Tab) 12.5 mg QAM PO 11/10/17 09:00 12/10/17 08:59 Future hold 11/18/17 09:30 12.5 MG Bisacodyl (Dulcolax Tab) 5 mg BID PO 11/10/17 09:00 12/10/17 08:59 Future hold 11/18/17 09:28 5 MG Docusate Sodium (coLACE CAP) 100 mg BID PO 11/10/17 09:00 12/10/17 08:59 11/18/17 09:29 100 MG Duloxetine HCl (Cymbalta Cap) 30 mg DAILY PO 11/10/17 09:00 12/10/17 08:59 11/18/17 09:29 30 MG Famotidine (Pepcid Tab) 20 mg HS PO 11/10/17 21:00 12/10/17 20:59 Future hold 11/17/17 21:27 20 MG Fludrocortisone Acetate (Florinef Tab) 0.1 mg BID PO 11/10/17 09:00 12/10/17 08:59 Future hold 11/18/17 09:31 0.1 MG Guaifenesin (Mucinex Contr Rel Tab) 1,200 mg Q12 PO 11/10/17 09:00 12/10/17 08:59 Future hold 11/18/17 09:32 1,200 MG Magnesium Oxide (Mag-Ox Tab) 400 mg BID PO 11/10/17 09:00 12/10/17 08:59 Future hold 11/18/17 09:35 400 MG Oxycodone HCl (Oxycontin Tab) 15 mg Q12 PO 11/10/17 09:00 11/24/17 08:59 Future hold 11/18/17 10:06 15 MG Simethicone (Mylicon Chew Tab) 80 mg QID PRN PO 11/09/17 23:00 12/09/17 22:59 Future hold 11/16/17 21:05 80 MG Tamsulosin HCl (Flomax Cap) 0.4 mg HS PO 11/10/17 21:00 12/10/17 20:59 Future hold 11/17/17 21:26 0.4 MG Cyanocobalamin (Vitamin B-12 Tab) 1,000 mcg QAM PO 11/10/17 09:00 12/10/17 08:59 Future hold 11/18/17 09:36 1,000 MCG Polyethylene (Miralax Powder Packet) 17 gm BID PO 11/10/17 09:00 12/10/17 08:59 Future hold 11/18/17 09:28 17 GM Artificial Tears (Artificial Tears) 1 drops BID OPB 11/10/17 09:00 12/10/17 08:59 11/18/17 09:36 1 DROPS Acetaminophen (Tylenol Tab) 650 mg Q4H PRN PO 11/09/17 23:30 12/09/17 23:29 Future hold 11/15/17 09:29 650 MG Lorazepam (Ativan Inj) 1 mg Q6H PRN IV 11/09/17 23:30 12/09/17 23:29 Nitroglycerin (Nitrostat Tab) 0.4 mg UD PRN SL 11/09/17 23:30 12/09/17 23:29 Ondansetron HCl (Zofran Inj) 4 mg Q6H PRN IV 11/09/17 23:30 12/09/17 23:29 11/13/17 07:55 4 MG Levalbuterol (Xopenex 1.25MG/ 3ML Neb) 1.25 mg Q4H PRN INH 11/09/17 23:30 12/09/17 23:29 11/17/17 16:36 1.25 MG Albuterol/ Ipratropium (Duoneb) 3 ml Q6R INH 11/10/17 03:00 12/10/17 02:59 11/18/17 07:15 3 ML Morphine Sulfate (MoRPHine SULFATE INJ) 4 mg Q2H PRN IV 11/09/17 23:30 11/23/17 23:29 11/15/17 18:11 4 MG Heparin Sodium (Porcine) (Heparin Sq 5000 Unit/0.5ml) 5,000 unit Q8H SQ 11/10/17 06:00 12/10/17 05:59 11/18/17 13:40 5,000 UNIT Miscellaneous Information (Consult Glycemic Management Pharmacy) 1 ea UD PRN N/A 11/10/17 06:17 12/10/17 06:16 Glucose (Glucose 40% Gel) 15-30 GRAMS 15 GRAMS... UD PRN PO 11/10/17 09:00 12/10/17 08:59 Glucose (Glucose Chew Tab) 4-8 Tablets 4 Tabl... UD PRN PO 11/10/17 09:00 12/10/17 08:59 Dextrose (Dextrose 50% 50ML Syringe) 25-50ML OF 50% DW IV FOR... UD PRN IV 11/10/17 09:00 12/10/17 08:59 11/13/17 07:35 25 ML Glucagon (Glucagon Inj) 1 mg UD PRN SQ 11/10/17 09:00 12/10/17 08:59 Dutasteride (Avodart) 0.5 mg DAILY PO 11/12/17 09:00 12/12/17 08:59 11/18/17 09:37 0.5 MG Metoprolol Tartrate (Lopressor Iv) 2.5 mg Q6 PRN IV 11/11/17 20:45 12/11/17 20:44 Pantoprazole Sodium (Protonix Tab) 40 mg QAM PO 11/12/17 09:00 12/12/17 08:59 11/18/17 09:32 40 MG Insulin Aspart (novoLOG ASPART) SLIDING SCALE ACHS SC 11/12/17 08:45 12/12/17 08:44 11/18/17 12:20 15 UNITS Carbohydrates (Carbohydrates For Hypoglycemia) 15-30 GRAMS 15 grams if BSG 54-69... UD PRN PO 11/12/17 08:45 12/12/17 08:44 Magnesium Hydroxide (Milk Of Magnesia Susp) 30 ml Q6H PRN PO 11/12/17 12:00 12/12/17 11:59 Potassium Chloride (Klor-Con Tab) 40 meq TID PO 11/13/17 09:00 12/12/17 08:59 11/18/17 13:37 40 MEQ Bisacodyl (Dulcolax Supp) 10 mg DAILY PRN HI 11/13/17 11:30 12/13/17 11:29 Insulin Detemir (Levemir Flexpen/ FlexTouch) see protocol text HS SQ 11/13/17 21:00 12/13/17 20:59 11/17/17 21:23 15 UNITS Lorazepam 1 mg/ Syringe 1 ml @ 1 mls/min Q6H PRN IV 11/13/17 20:15 12/13/17 20:14 11/17/17 21:29 1 MLS/MIN Furosemide (Lasix Tab) 40 mg BID17 PO 11/14/17 17:00 12/14/17 16:59 Future Hold 11/18/17 09:29 40 MG Methylprednisolone Sodium Succinate 40 mg/Syringe 0.64 ml @ 1.5 mls/min Q12 IV 11/15/17 21:00 12/15/17 20:59 11/18/17 09:36 1.5 MLS/MIN Piperacillin Sod/ Tazobactam Sod 3.375 gm/Dextrose 115 ml @ 28.75 mls/ hr Q8H IV 11/15/17 18:00 11/22/17 12:44 11/18/17 09:38 28.75 MLS/HR Miscellaneous Information (Consult) 1 ea UD PRN N/A 11/15/17 11:45 12/15/17 11:44 Miscellaneous Information (Consult) 1 ea UD PRN N/A 11/15/17 11:45 12/15/17 11:44 Morphine Sulfate (MoRPHine SULFATE INJ) 2 mg Q4 PRN IV 11/15/17 15:15 11/29/17 15:14 Insulin Detemir (Levemir Flexpen/ FlexTouch) see protocol text QAM SQ 11/16/17 09:00 12/16/17 08:59 11/18/17 09:53 15 UNITS Lidocaine (Lidoderm Patch 5%) 1 patch QAM TD 11/17/17 09:00 12/17/17 08:59 11/18/17 09:38 1 PATCH Miscellaneous (Remove Lidoderm Patch) 1 ea DAILY@21 N/A 11/16/17 21:00 12/16/17 20:59 11/17/17 21:28 1 EA Gabapentin (Neurontin Tab) 600 mg TID PO 11/16/17 14:00 12/16/17 13:59 11/18/17 13:38 600 MG Vancomycin HCl 1250 mg/Sodium Chloride 275 ml @ 125 mls/hr Q18H IV 11/17/17 18:00 11/24/17 17:59 11/18/17 12:23 125 MLS/HR Enteral Nutritional Formula (Boost Glucose Control) 1 can TIDM PO 11/18/17 17:00 12/18/17 16:59 Physical Exam Date Time Temp Pulse Resp B/P (MAP) Pulse Ox O2 Delivery O2 Flow Rate FiO2 11/18/17 08:00 Nasal Cannula 2.0 11/18/17 07:17 68 18 94 Nasal Cannula 2.0 11/18/17 07:12 36.5 68 20 133/78 (96) 94 11/18/17 02:04 76 18 93 Nasal Cannula 2.0 11/18/17 00:00 Nasal Cannula 2.0 11/17/17 23:42 36.9 66 18 115/72 (86) 96 Nasal Cannula 2.0 11/17/17 20:00 Nasal Cannula 2.0 11/17/17 19:28 73 18 88 Nasal Cannula 2.0 11/17/17 17:01 36.8 65 20 115/68 (84) 94 11/17/17 16:36 78 20 97 Nasal Cannula 2.0 11/17/17 16:00 Nasal Cannula 2.0 General Appearance: + mild distress (Patient sitting up in the chair in minimal distress at baseline with his breathing) Neck: thyroid normal Respiratory: + pertinent finding (Patient on 2 LNC - Patient using accessory muscles, pursed lip breathing, expiratory wheezes, coarse throughout) Cardiovascular: regular rate, rhythm, no gallop, no JVD, no murmur, + pertinent finding (trace edema B/L LE - leg wraps in place from lymphedema clinic) Abdomen: normal bowel sounds, non tender, soft Musculoskeletal: normal strength (5/5 throughout) 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: oriented x 3 Skin: warm/dry, no rash Laboratory Results Last 24 Hours Test 11/17/17 15:27 11/17/17 15:47 11/17/17 16:51 11/17/17 20:37 Vancomycin Level Trough 18.0 mcg/ml Bedside Glucose 223 mg/dl 219 mg/dl 192 mg/dl Test 11/17/17 23:50 11/18/17 03:49 11/18/17 06:57 11/18/17 07:26 Bedside Glucose 148 mg/dl 143 mg/dl 144 mg/dl White Blood Count 5.08 K/uL Red Blood Count 3.79 M/uL Hemoglobin 8.6 g/dL Hematocrit 31.2 % Mean Corpuscular Volume 82.3 fL Mean Corpuscular Hemoglobin 22.7 pg Mean Corpuscular Hemoglobin Concent 27.6 g/dl RDW Standard Deviation 61.0 fL RDW Coefficient of Variation 20.1 % Platelet Count 231 K/uL Mean Platelet Volume 9.2 fL Sodium Level 143 mmol/L Potassium Level 4.5 mmol/L Chloride Level 109 mmol/L Carbon Dioxide Level 29 mmol/L Anion Gap 5.0 mmol/L Blood Urea Nitrogen 25 mg/dl Creatinine 1.48 mg/dl Est Creatinine Clear Calc Drug Dose 42.9 ml/min Estimated GFR () 48.6 Estimated GFR (Non- 41.9 BUN/Creatinine Ratio 17.1 Random Glucose 145 mg/dl Calcium Level 8.1 mg/dl Test 11/18/17 11:38 Bedside Glucose 150 mg/dl Assessment & Plan Palliative Performance Scale: 50 % Palliative Care Encounter Goals of Care CHF COPD Chronic Aspiration Palliative Care Recommendations: -Continue supportive treatment as ordered with essential medications -Discharge to [facility] when medically stable -Case management to discuss hospice options while at [facility] per the pt and family request. -GOALS OF CARE discussion held - Patient to remain DNR. -POLST form filled out with the patient and placed on the chart. Counseling and Coordination Total time spent 70 minutes with > 50% of that time reviewing the patient's chart, assessing the patient, discussing GOALS OF CARE with patient and his , Isabela at the bedside, and filling out a POLST form
[2017-11-18 14:26] VITALS: PULSE 67; O2SAT 95
[2017-11-18 15:40] VITALS: BP 125/69; PULSE 70; TEMP 36.9; O2SAT 94
--- NOTE | 2017-11-18 16:39 | Hospitalist Progress Note ---
Hospitalist Progress Note Date of Service November 18, 2017. (Peggy Auguste .MARCELO) Subjective Pt evaluation today including: conversation w/ patient, conversation w/ family , physical exam, chart review, lab review, conversation w/ commercial sales consultant ( palliative care ), review of inpatient medication list Voiding: gomez catheter in place Mr. Enciso is slightly more sob today than yesterday but still much better than last week. He continues to have some cough, productive of yellow sputum ROS Constitutional: no chills, aches, sweats or fever Respiratory: see HPI Cardiac: no chest pain, palpitations, edema, orthopnea or lightheadedness GI: no abdominal pain, nausea, vomiting, diarrhea or constipation : no dysuria or hesitancy Extremities: no joint pain or weakness Skin: no rash All other systems reviewed and negative (Peggy Auguste CRNP) Medications Medications Administered Medications (Trade) Dose Ordered Sig/Cole Route Start Time Stop Time Status Last Admin Dose Admin Methylprednisolone Sodium Succinate (Solu-Medrol IV) 125 mg NOW STAT IV 11/09/17 20:47 11/09/17 20:49 DC 11/09/17 20:56 125 MG Albuterol/ Ipratropium (Duoneb) 12 ml ONE ONCE INH 11/09/17 21:00 11/09/17 21:01 DC 11/09/17 21:14 12 ML Furosemide 20 mg/ Syringe 2 ml @ 4 mls/min ONE ONCE IV 11/09/17 21:00 11/09/17 21:01 DC 11/09/17 21:00 4 MLS/MIN Piperacillin Sod/ Tazobactam Sod (Zosyn Iv) 4.5 gm NOW STAT IV 11/09/17 21:36 11/10/17 07:40 DC 11/09/17 22:01 4.5 GM Acetaminophen (Tylenol Tab) 650 mg NOW STAT PO 11/09/17 21:36 11/09/17 21:37 DC 11/09/17 22:21 650 MG Vancomycin HCl 2250 mg/Sodium Chloride 545 ml @ 200 mls/hr TODAY@0200 ONCE IV 11/10/17 02:00 11/10/17 04:43 DC 11/10/17 01:57 200 MLS/HR Aspirin (Aspirin Chew) 81 mg QAM PO 11/10/17 09:00 12/10/17 08:59 Future hold 11/18/17 09:29 81 MG Atenolol (Tenormin Tab) 12.5 mg QAM PO 11/10/17 09:00 12/10/17 08:59 Future hold 11/18/17 09:30 12.5 MG Bisacodyl (Dulcolax Tab) 5 mg BID PO 11/10/17 09:00 12/10/17 08:59 Future hold 11/18/17 09:28 5 MG Docusate Sodium (coLACE CAP) 100 mg BID PO 11/10/17 09:00 12/10/17 08:59 11/18/17 09:29 100 MG Duloxetine HCl (Cymbalta Cap) 30 mg DAILY PO 11/10/17 09:00 12/10/17 08:59 11/18/17 09:29 30 MG Famotidine (Pepcid Tab) 20 mg HS PO 11/10/17 21:00 12/10/17 20:59 Future hold 11/17/17 21:27 20 MG Fludrocortisone Acetate (Florinef Tab) 0.1 mg BID PO 11/10/17 09:00 12/10/17 08:59 Future hold 11/18/17 09:31 0.1 MG Guaifenesin (Mucinex Contr Rel Tab) 1,200 mg Q12 PO 11/10/17 09:00 12/10/17 08:59 Future hold 11/18/17 09:32 1,200 MG Magnesium Oxide (Mag-Ox Tab) 400 mg BID PO 11/10/17 09:00 12/10/17 08:59 Future hold 11/18/17 09:35 400 MG Oxycodone HCl (Oxycontin Tab) 15 mg Q12 PO 11/10/17 09:00 11/24/17 08:59 Future hold 11/18/17 10:06 15 MG Simethicone (Mylicon Chew Tab) 80 mg QID PRN PO 11/09/17 23:00 12/09/17 22:59 Future hold 11/16/17 21:05 80 MG Tamsulosin HCl (Flomax Cap) 0.4 mg HS PO 11/10/17 21:00 12/10/17 20:59 Future hold 11/17/17 21:26 0.4 MG Cyanocobalamin (Vitamin B-12 Tab) 1,000 mcg QAM PO 11/10/17 09:00 12/10/17 08:59 Future hold 11/18/17 09:36 1,000 MCG Miscellaneous Information (Order Awaiting Action) 1 ea QS N/A 11/10/17 08:00 11/11/17 20:20 DC 11/10/17 16:00 1 EA Insulin Detemir (Levemir Flexpen/ FlexTouch) 20 units ONE ONCE SQ 11/10/17 06:45 11/10/17 06:46 DC 11/10/17 07:43 20 UNITS Polyethylene (Miralax Powder Packet) 17 gm BID PO 11/10/17 09:00 12/10/17 08:59 Future hold 11/18/17 09:28 17 GM Artificial Tears (Artificial Tears) 1 drops BID OPB 11/10/17 09:00 12/10/17 08:59 11/18/17 09:36 1 DROPS Hydrocortisone Sodium Succinate 100 mg/Syringe 2 ml @ 4 mls/min Q8H IV 11/10/17 03:00 11/11/17 11:20 DC 11/11/17 11:04 4 MLS/MIN Sodium Chloride 1,000 ml @ 50 mls/hr Q20H IV 11/10/17 00:30 11/10/17 19:07 DC 11/10/17 01:58 50 MLS/HR Acetaminophen (Tylenol Tab) 650 mg Q4H PRN PO 11/09/17 23:30 12/09/17 23:29 Future hold 11/15/17 09:29 650 MG Ondansetron HCl (Zofran Inj) 4 mg Q6H PRN IV 11/09/17 23:30 12/09/17 23:29 11/13/17 07:55 4 MG Levalbuterol (Xopenex 1.25MG/ 3ML Neb) 1.25 mg Q4H PRN INH 11/09/17 23:30 12/09/17 23:29 11/17/17 16:36 1.25 MG Albuterol/ Ipratropium (Duoneb) 3 ml Q6R INH 11/10/17 03:00 12/10/17 02:59 11/18/17 14:24 3 ML Morphine Sulfate (MoRPHine SULFATE INJ) 4 mg Q2H PRN IV 11/09/17 23:30 11/23/17 23:29 11/15/17 18:11 4 MG Heparin Sodium (Porcine) (Heparin Sq 5000 Unit/0.5ml) 5,000 unit Q8H SQ 11/10/17 06:00 12/10/17 05:59 11/18/17 13:40 5,000 UNIT Insulin Aspart (novoLOG ASPART) SLIDING SCALE Q4 SC 11/10/17 06:30 11/10/17 09:02 DC 11/10/17 07:42 18 UNITS Azithromycin 500 mg/Dextrose 255 ml @ 125 mls/hr ONE ONCE IV 11/10/17 07:45 11/10/17 09:47 DC 11/10/17 08:09 125 MLS/HR Azithromycin 250 mg/Dextrose 252.5 ml @ 125 mls/hr DAILY IV 11/11/17 09:00 11/14/17 11:02 DC 11/14/17 09:01 125 MLS/HR Insulin Human Regular (Insulin IV Infusion Protocol) 1 ea Q10M N/A 11/10/17 08:09 11/10/17 08:54 DC 11/10/17 08:49 1 EA Insulin Aspart (novoLOG ASPART) SLIDING SCALE PCHS AR 11/10/17 08:00 11/11/17 18:00 DC 11/11/17 16:39 3 UNITS Miscellaneous (Insulin Protocol Goal Range (Other)) 1 ea ONE ONCE N/A 11/10/17 07:45 11/10/17 08:10 DC 11/10/17 07:45 1 EA Cefepime HCl 1000 mg/Syringe 11 ml @ 5.5 mls/min DAILY IV 11/10/17 09:00 11/14/17 15:06 DC 11/14/17 09:39 5.5 MLS/MIN Insulin Human Regular (NovoLIN R BOLUS FROM BAG) 2.5 unit ONE ONCE IV 11/10/17 09:00 11/10/17 09:05 DC 11/10/17 09:21 2.5 UNIT Insulin Human Regular 250 units/ Sodium Chloride 252.5 ml @ 2.5 mls/hr Q24H IV 11/10/17 09:00 11/11/17 18:00 DC 11/11/17 08:57 2.5 MLS/HR Dextrose (Dextrose 50% 50ML Syringe) 25-50ML OF 50% DW IV FOR... UD PRN IV 11/10/17 09:00 12/10/17 08:59 11/13/17 07:35 25 ML Pantoprazole Sodium 40 mg/ Syringe 10 ml @ 5 mls/min DAILY@11 IV 11/11/17 11:00 11/11/17 20:41 DC 11/11/17 11:04 5 MLS/MIN Sodium Chloride 1,000 ml @ 50 mls/hr Q20H IV 11/10/17 23:30 11/13/17 08:32 DC 11/12/17 16:14 50 MLS/HR Potassium Chloride 100 ml @ 100 mls/hr Q1H IV 11/11/17 06:02 11/11/17 10:01 DC 11/11/17 10:37 100 MLS/HR Metoprolol Tartrate (Lopressor Iv) 2.5 mg Q6 IV. 11/11/17 12:00 11/11/17 20:40 DC 11/11/17 18:16 2.5 MG Metoprolol Tartrate (Lopressor Iv) 2.5 mg 0657 ONCE IV. 11/11/17 06:57 11/11/17 07:02 DC 11/11/17 07:29 2.5 MG Insulin Detemir (Levemir Flexpen/ FlexTouch) 30 units NOW ONCE SQ 11/11/17 12:00 11/11/17 12:01 DC 11/11/17 12:11 30 UNITS Insulin Aspart (novoLOG ASPART) SLIDING SCALE Q4 SC 11/11/17 20:00 11/12/17 08:33 DC 11/11/17 20:24 2 UNITS Insulin Detemir (Levemir Flexpen/ FlexTouch) QPM ONCE SQ 11/11/17 21:00 11/11/17 21:01 DC 11/11/17 22:08 10 UNITS Miscellaneous Information (Dc Iv Insulin Infusion) 1 ea TODAY@1800 ONCE N/A 11/11/17 18:00 11/11/17 18:01 DC 11/11/17 18:14 1 EA Dutasteride (Avodart) 0.5 mg DAILY PO 11/12/17 09:00 12/12/17 08:59 5/7/18 09:37 0.5 MG Pantoprazole Sodium (Protonix Tab) 40 mg QAM PO 11/12/17 09:00 12/12/17 08:59 11/18/17 09:32 40 MG Potassium Chloride (Klor-Con Tab) 20 meq TID PO 11/12/17 09:00 11/13/17 08:32 DC 11/12/17 20:56 20 MEQ Insulin Detemir (Levemir Flexpen/ FlexTouch) BID SQ 11/12/17 09:00 11/13/17 13:55 DC 11/12/17 17:44 15 UNITS Insulin Aspart (novoLOG ASPART) SLIDING SCALE ACHS SC 11/12/17 08:45 12/12/17 08:44 11/18/17 12:20 15 UNITS Potassium Chloride (Klor-Con Tab) 40 meq TID PO 11/13/17 09:00 12/12/17 08:59 11/18/17 13:37 40 MEQ Potassium Chloride/Dextrose/ Sod Cl 1,000 ml @ 80 mls/hr [id number] IV 11/13/17 08:45 11/14/17 15:12 DC 11/14/17 10:36 80 MLS/HR Potassium Chloride 100 ml @ 100 mls/hr Q1H IV 11/13/17 08:45 11/13/17 12:44 DC 11/13/17 12:42 100 MLS/HR Insulin Detemir (Levemir Flexpen/ FlexTouch) see protocol text HS SQ 11/13/17 21:00 12/13/17 20:59 11/17/17 21:23 15 UNITS Enteral Nutritional Formula (Boost Pudding) 1 cup DAILY PO 11/14/17 09:00 11/18/17 13:19 DC 11/17/17 09:07 1 CUP Enteral Nutritional Formula (Boost Glucose Control) 1 can BIDM PO 11/13/17 17:00 11/18/17 13:19 DC 11/18/17 07:58 1 CAN Lorazepam 1 mg/ Syringe 1 ml @ 1 mls/min Q6H PRN IV 11/13/17 20:15 12/13/17 20:14 11/17/17 21:29 1 MLS/MIN Potassium Chloride 100 ml @ 100 mls/hr Q1H IV 11/14/17 09:30 11/14/17 11:29 DC 11/14/17 11:16 100 MLS/HR Cefdinir (Omnicef Cap) 300 mg Q12 PO 11/15/17 09:00 11/15/17 11:44 DC 11/15/17 09:10 300 MG Furosemide (Lasix Tab) 40 mg BID17 PO 11/14/17 17:00 12/14/17 16:59 Future Hold 11/18/17 09:29 40 MG Methylprednisolone Sodium Succinate 60 mg/Syringe 0.96 ml @ 1.5 mls/min ONE ONCE IV 11/15/17 10:45 11/15/17 10:46 DC 11/15/17 11:12 1.5 MLS/MIN Methylprednisolone Sodium Succinate 40 mg/Syringe 0.64 ml @ 1.5 mls/min Q12 IV 11/15/17 21:00 12/15/17 20:59 11/18/17 09:36 1.5 MLS/MIN Furosemide 40 mg/ Syringe 4 ml @ 4 mls/min ONE ONCE IV 11/15/17 10:45 11/15/17 10:46 DC 11/15/17 11:15 4 MLS/MIN Potassium Chloride 100 ml @ 100 mls/hr TODAY@1100,1200,1300,1400 IV 11/15/17 11:00 11/15/17 14:59 DC 11/15/17 15:00 100 MLS/HR Piperacillin Sod/ Tazobactam Sod 3.375 gm/Dextrose 115 ml @ 28.75 mls/ hr Q8H IV 11/15/17 18:00 11/22/17 12:44 11/18/17 09:38 28.75 MLS/HR Vancomycin HCl 2250 mg/Sodium Chloride 545 ml @ 200 mls/hr 1245 ONCE IV 11/15/17 12:45 11/15/17 15:28 DC 11/15/17 13:24 200 MLS/HR Piperacillin Sod/ Tazobactam Sod 3.375 gm/Dextrose 115 ml @ 230 mls/hr 1245 ONCE IV 11/15/17 12:45 11/15/17 13:14 DC 11/15/17 13:24 230 MLS/HR Vancomycin HCl 1500 mg/Sodium Chloride 530 ml @ 200 mls/hr Q18H IV 11/16/17 04:00 11/17/17 17:22 DC 11/16/17 21:27 200 MLS/HR Insulin Aspart (novoLOG ASPART) SLIDING SCALE 0000,0400 SC 11/16/17 00:00 11/18/17 09:27 DC 11/18/17 03:53 1 UNITS Insulin Human Regular 7 units/ Syringe 7 ml @ 30 mls/min TODAY@0030 IV 11/16/17 00:30 11/16/17 00:31 DC 11/16/17 00:27 30 MLS/MIN Insulin Detemir (Levemir Flexpen/ FlexTouch) see protocol text QAM SQ 11/16/17 09:00 12/16/17 08:59 11/18/17 09:53 15 UNITS Lidocaine (Lidoderm Patch 5%) 1 patch QAM TD 11/17/17 09:00 12/17/17 08:59 11/18/17 09:38 1 PATCH Lidocaine (Lidoderm Patch 5%) 1 patch 1025 ONCE TD 11/16/17 10:25 11/16/17 10:52 DC 11/16/17 11:28 1 PATCH Miscellaneous (Remove Lidoderm Patch) 1 ea DAILY@21 N/A 11/16/17 21:00 12/16/17 20:59 11/17/17 21:28 1 EA Potassium Chloride 100 ml @ 100 mls/hr Q1H IV 11/16/17 11:00 11/16/17 12:59 DC 11/16/17 13:37 100 MLS/HR Potassium Chloride (Klor-Con M10) 40 meq NOW ONCE PO 11/16/17 10:30 11/16/17 10:52 DC 11/16/17 11:29 40 MEQ Potassium Chloride (Klor-Con Tab) 20 meq 1400 ONCE PO 11/16/17 14:00 11/16/17 14:01 DC 11/16/17 13:39 20 MEQ Gabapentin (Neurontin Tab) 600 mg TID PO 11/16/17 14:00 12/16/17 13:59 11/18/17 13:38 600 MG Furosemide 40 mg/ Syringe 4 ml @ 4 mls/min 1130 IV 11/16/17 11:30 11/16/17 12:00 DC 11/16/17 11:29 4 MLS/MIN Vancomycin HCl 1250 mg/Sodium Chloride 275 ml @ 125 mls/hr Q18H IV 11/17/17 18:00 11/24/17 17:59 11/18/17 12:23 125 MLS/HR Furosemide 40 mg/ Syringe 4 ml @ 4 mls/min TODAY@1330 ONCE IV 11/18/17 13:30 11/18/17 13:31 DC 11/18/17 13:38 4 MLS/MIN (Peggy Auguste CRNP) Objective Vital Signs Date Time Temp Pulse Resp B/P (MAP) Pulse Ox O2 Delivery O2 Flow Rate FiO2 11/18/17 15:40 36.9 70 20 125/69 (87) 94 Room Air 11/18/17 14:26 67 18 95 Nasal Cannula 2.0 11/18/17 08:00 Nasal Cannula 2.0 11/18/17 07:17 68 18 94 Nasal Cannula 2.0 11/18/17 07:12 36.5 68 20 133/78 (96) 94 11/18/17 02:04 76 18 93 Nasal Cannula 2.0 11/18/17 00:00 Nasal Cannula 2.0 11/17/17 23:42 36.9 66 18 115/72 (86) 96 Nasal Cannula 2.0 11/17/17 20:00 Nasal Cannula 2.0 11/17/17 19:28 73 18 88 Nasal Cannula 2.0 11/17/17 17:01 36.8 65 20 115/68 (84) 94 11/17/17 16:36 78 20 97 Nasal Cannula 2.0 (Peggy Auguste CRNP) Physical Exam Notes: General: no distress Eyes: normal inspection, PERLL Respiratory: chest non tender, crackles right base, other rangel clear, no respiratory distress, no accessory muscle use Cardiac: regular rate and rhythm, no rub or gallop, no murmur, no edema, no jvd GI/: active bowel sounds, no abd pain or tenderness, soft, non distended Extremities: normal range of motion, normal strength, non tender Neuro/Psych: alert and oriented x 3, normal mood and affect Skin: normal color, dry (Peggy Auguste CRNP) Laboratory Results Last 24 Hours Test 11/17/17 16:51 11/17/17 20:37 11/17/17 23:50 11/18/17 03:49 Bedside Glucose 219 mg/dl 192 mg/dl 148 mg/dl 143 mg/dl Test 11/18/17 06:57 11/18/17 07:26 11/18/17 11:38 White Blood Count 5.08 K/uL Red Blood Count 3.79 M/uL Hemoglobin 8.6 g/dL Hematocrit 31.2 % Mean Corpuscular Volume 82.3 fL Mean Corpuscular Hemoglobin 22.7 pg Mean Corpuscular Hemoglobin Concent 27.6 g/dl RDW Standard Deviation 61.0 fL RDW Coefficient of Variation 20.1 % Platelet Count 231 K/uL Mean Platelet Volume 9.2 fL Sodium Level 143 mmol/L Potassium Level 4.5 mmol/L Chloride Level 109 mmol/L Carbon Dioxide Level 29 mmol/L Anion Gap 5.0 mmol/L Blood Urea Nitrogen 25 mg/dl Creatinine 1.48 mg/dl Est Creatinine Clear Calc Drug Dose 42.9 ml/min Estimated GFR () 48.6 Estimated GFR (Non- 41.9 BUN/Creatinine Ratio 17.1 Random Glucose 145 mg/dl Calcium Level 8.1 mg/dl Bedside Glucose 144 mg/dl 150 mg/dl (Peggy Auguste, MARCELO) Assessment and Plan 86 y/o M Admitted multiple times this yr for pneumonia due to aspiration and CHF exacerbation again admitted because of aspiration pneumonia, An initial CXR showed a new RLL infiltrate. He required BiPAP to maintain an adequate saturation at the time of admission. Past medical history COPD, combined CHF, CAD, CKD 3-4, DM, chronic aspiration with recurrent PNM, adrenal insufficiency, chronic Gomez w/recurrent UTIs, history of DVT, [facility] resident Aspiration pneumonia with sepsis POA: rapid deterioration 11/16 - febrile, tachypneic, respiratory alkalosis - much improved today treated for 6 days with Cefepime, Azithromycin - changed to Zosyn and Vancomycin with decompensation, nebulizers - consider discontinuing abx tomorrow as it will be 10 days total increased infiltrate in right lower lobe on CXR 11/15 speech evaluation, recommend honey thick liquids, patient will not comply Acute hypoxic respiratory failure on chronic hypoxic failure oxygen levels stable on 2L Continue prn morphine added PRN for dyspnea acute failure resolved Acute on Chronic diastolic and systolic HF pulmonary edema 11/15 on CXR and on exam Diuresed well with IV lasix - restarted po lasix yesterday, however patient with increased sob today. Will give one dose IV lasix 40 and hod po echo on 10/16 showed EF of 50-55% Anemia of chronic disease vs blood loss, normocytic Hgb has drifted from around 11 on admission to 8.6 - will order heme occult - patient has history of positive iron studies possible sob is due to low hgb, may need transfusion if decreases again tomorrow - cbc am Hypokalemia resolved prp am Possible acute on chronic CKD III, baseline prp am COPD exacerbation: triggered by pneumonia and pulmonary edema Solu Medrol 40mg IV q12 - started 11/15 continue to treat for 5 days, no taper duonebs Constipation, distension continue bowel regimen, prone to constipation DM/neuropathy intake improving continue home gabapentin 600 mg TID CAD - cont ASA, statin, Coreg Anemia - Hb is stable Adrenal insufficiency: continue Florinef Do not resuscitate GI prophylaxis covered, heparin prophylaxis consult palliative care - patient completed POLST, does not want to return to hospital, will have hospice for discharge. would not want BIPAP, would not want PEG tube goal is to get better to the point that he can return to [facility] (Peggy Auguste ., MARCELO) Supervising Note Dr. Becerra I performed a history and physical examination on the patient. I reviewed above note and agree with it. I discussed plan with [facility] and patient. During my face to face encounter with the patient, I answered all of the patient's questions. Patient does not want to come back to hospital. Will obtain hospice service once he is discharged. Patient feels back to his baseline. (John Becerra M.D.)
[2017-11-18 19:13] VITALS: PULSE 73; O2SAT 93
[2017-11-18] MEDS: TAMSULOSIN HCL 0.4 MG CAP PO SCH (22:12)
[2017-11-18] MEDS: FAMOTIDINE 20 MG TAB PO SCH (22:13)
[2017-11-19] VITALS (7 sets, daily range): BP systolic 100–144; BP diastolic 56–77; PULSE 67–79; TEMP 36.6; O2SAT 92–95
[2017-11-19] MEDS: PIPERACILL/TAZOBAC IV 3.375 GM in DEXTROSE 5% 100ML 100 ML IV SCH ×2 (02:13→09:34)
[2017-11-19] MEDS: ALBUT/IPRATROP 3MG/0.5MG NEB 3 ML VIAL INH SCH ×4 (02:54→14:25)
[2017-11-19] MEDS: LEVALBUTEROL 1.25MG/3ML NEB INH PRN (04:00)
[2017-11-19] MEDS ORDERED: VANCOMYCIN TROUGH ONE (05:30)
[2017-11-19 05:42] LABS: HEMATOCRIT 33.3 % (42-52); HEMOGLOBIN 9.1 g/dL (14.0-18.0); MEAN CELL VOLUME 82.8 fL (80-100); MEAN CORPUSCULAR HEMOGLOBIN 22.6 pg (25-34); MEAN CORPUSCULAR HGB CONC 27.3 g/dl (32-36); MEAN PLATELET VOLUME 10.1 fL (7.4-10.4); NUCLEATED RED BLOOD CELL ABS 0.04 K/uL (0-0); PLATELET COUNT 283 K/uL (130-400); RED CELL DISTRIBUTION WIDTH CV 20.2 % (11.5-14.5); RED CELL DISTRIBUTION WIDTH SD 61.2 fL (36.4-46.3); WHITE BLOOD COUNT 6.79 K/uL (4.8-10.8)
[2017-11-19] MEDS: VANCOMYCIN IV 1,250 MG in SODIUM CHLORIDE 0.9% 250ML 250 ML IV SCH (05:56)
[2017-11-19] MEDS: HEPARIN SOD 5000 UNIT/0.5 ML CARP SQ SCH ×2 (05:56→13:48)
[2017-11-19 06:02] LABS: CREATININE 1.59 mg/dl (0.60-1.40); POTASSIUM 3.5 mmol/L (3.5-5.1)
[2017-11-19] MEDS: ARTIFICIAL TEARS OP SOLN OPB SCH (07:52)
[2017-11-19] MEDS: METHYLPREDNISOLONE IV 40 MG in SYRINGE 0 ML IV SCH (07:52)
[2017-11-19] MEDS: LIDODERM (LIDOCAINE) PATCH 5% TD SCH (07:52)
[2017-11-19] MEDS: DOCUSATE SODIUM 100 MG CAP PO SCH (07:53)
[2017-11-19] MEDS: MAGNESIUM OXIDE 400 MG TAB PO SCH (07:53)
[2017-11-19] MEDS: OXYCODONE HCL 15 MG TABCR (OXYCONTIN) PO SCH (07:53)
[2017-11-19] MEDS: CYANOCOBALAMIN 500 MCG TAB (VIT B-12) PO SCH (07:53)
[2017-11-19] MEDS: ASPIRIN 81 MG CHEW PO SCH (07:53)
[2017-11-19] MEDS: POTASSIUM CHLORIDE 20 MEQ TABCR PO SCH ×2 (07:54→13:47)
[2017-11-19] MEDS: BISACODYL 5 MG TABEC PO SCH (07:54)
[2017-11-19] MEDS: FLUDROCORTISONE ACETATE 0.1 MG TAB PO SCH (07:54)
[2017-11-19] MEDS: GABAPENTIN 600 MG TAB PO SCH ×2 (07:54→13:46)
[2017-11-19] MEDS: GUAIFENESIN 600 MG TABCR PO SCH (07:54)
[2017-11-19] MEDS: DULOXETINE (CYMBALTA) 30 MG CAP PO SCH (07:54)
[2017-11-19] MEDS: PANTOprazole SOD 40 MG TAB PO SCH (07:54)
[2017-11-19] MEDS: POLYETHYLENE (MIRALAX) 17 GM PACK PO SCH (07:55)
[2017-11-19] MEDS: BOOST GLUCOSE CONTROL PO SCH ×2 (07:55→12:06)
[2017-11-19] MEDS: INSULIN ASPART 100 UNITS/ML 3 ML PEN SC SCH ×2 (08:07→12:06)
[2017-11-19] MEDS: INSULIN DETEMIR FLEXPEN/FLEX TOUCH 100 UNITS/ML 3ML SQ SCH (08:08)
--- NOTE | 2017-11-19 12:27 | Pharmacy Progress Note ---
Pharmacy Abx Dose Short Note Date of Service November 19, 2017. Assessment & Plan Assessment 87 year old male receiving Vancomycin/Zosyn for treatment of Sepsis secondary to aspiration Day # 04/23 of antimicrobial therapy. Plan Vancomycin * Trough level of 17.6 mcg/mL is therapeutic * Continue dose of 1250 mg IV every 18 hours * Goal trough level for : 15 to 20 mcg/mL Continue with current therapy of Vancomycin and Zosyn. MD note from 11/18/17 states may d/c antibiotics since 10 days of therapy is reached. Pharmacy will continue to follow and will adjust dose/frequency as necessary. Thank you.
[2017-11-19] MEDS ORDERED: ACET-1047 PO (14:07)
--- NOTE | 2017-11-19 14:14 | Discharge Instructions ---
Discharge Instructions Date of Service November 19, 2017. Admission Reason for Admission: Aspiration Pneumonia Discharge Discharge Diagnosis / Problem: Aspiration PNA Discharge Goals Goal(s): Decrease discomfort, Improve function Activity Recommendations Activity Limitations: resume your previous activity . Instructions / Follow-Up Instructions / Follow-Up -Continue supportive treatment as ordered with essential medications -Discharge to [facility] as patient has completed treatment -Case management to discuss hospice options while at [facility] per the pt and family request. -GOALS OF CARE discussion held - Patient to remain DNR. -POLST form filled out with the patient and placed on the chart. -Patient does not want to return to the hospital again. Current Hospital Diet Patient's current hospital diet: AHA Diet (Heart Healthy), Diabetes Type 2 Diet Discharge Diet Recommended Diet: AHA Diet (Heart Healthy), Diabetes Type 2 Diet Pending Studies Studies pending at discharge: no Laboratory Results Hemoglobin A1c Test 11/11/17 04:20 Range/Units Estimated Average Glucose 137 mg/dl Hemoglobin A1c 6.4 H 4.5-5.6 % Medical Emergencies . Who to Call and When: Medical Emergencies: If at any time you feel your situation is an emergency, please call 911 immediately. . Non-Emergent Contact Non-Emergency issues call your: Primary Care Provider Call Non-Emergent contact if: you have any medication questions . . "Provider Documentation" section prepared by John Becerra. .
--- NOTE | 2017-11-19 14:31 | Discharge Summary ---
Discharge Summary Date of Service November 19, 2017. Discharge Summary Admission Date: Nov 09, 2017 at 23:23 Discharge Date: November 19, 2017 Immunizations: Have You Had Influenza Vaccine: Yes Influenza Vaccine Date: Jun 08, 2013 History of Tetanus Vaccine?: Unknown History of Pneumococcal: Yes History of Hepatitis B Vaccine: Unknown Hospital Course This includes examination of the patient, discharge planning, medication reconciliation, and communication with other providers. Discharge Instructions Please refer to the electronic Patient Visit Report (Discharge Instructions) for additional information.
== END 2017-11-19 15:05 | DRG 871 ==
LOC: EDBD 20:28 → C.EDA 20:29 → C.MSICU 23:23 → ENRESERV 23:33 → C.MS2W 11-12 13:57
PROVIDERS: ADMIT Internal Medicine; ATTEND Internal Medicine Sports Medicine
DX: A41.9 Sepsis, unspecified organism (principal); J69.0 Pneumonitis due to inhalation of food and vomit; J96.21 Acute and chronic respiratory failure with hypoxia; N18.4 Chronic kidney disease, stage 4 (severe); I13.0 Hypertensive heart and chronic kidney disease with heart failure and stage 1 through stage 4 chronic kidney disease, or unspecified chronic kidney disease; E27.40 Unspecified adrenocortical insufficiency; I50.43 Acute on chronic combined systolic (congestive) and diastolic (congestive) heart failure; J43.9 Emphysema, unspecified; D64.9 Anemia, unspecified; I25.10 Atherosclerotic heart disease of native coronary artery without angina pectoris; E11.40 Type 2 diabetes mellitus with diabetic neuropathy, unspecified; E78.5 Hyperlipidemia, unspecified; I25.2 Old myocardial infarction; Z86.73 Personal history of transient ischemic attack (TIA), and cerebral infarction without residual deficits; Z79.82 Long term (current) use of aspirin; Z87.440 Personal history of urinary (tract) infections; R65.20 Severe sepsis without septic shock; E87.6 Hypokalemia; K59.00 Constipation, unspecified

== ENCOUNTER → 2018-02-07 | Outpatient (CLI) | payer OTHER ==
[~2018-02-07] MED LIST changes: +ACET-1047 PO; -ACET-1256 PO; +DUTA1CAP17 PO; -DUTA1CAP3 PO
[2018-02-07 09:51] LABS: BLOOD UREA NITROGEN 32 mg/dl (7-18); CALCIUM 8.7 mg/dl (8.5-10.1); CARBON DIOXIDE 30 mmol/L (21-32); CREATININE 1.62 mg/dl (0.60-1.40); GLUCOSE 116 mg/dl (70-99); POTASSIUM 3.8 mmol/L (3.5-5.1); SODIUM 139 mmol/L (136-145)
== END | disposition home or self-care (01) ==
LOC: C.LABVPSUA 08:32
PROVIDERS: ATTEND Internal Medicine Critical Care Medicine
DX: I50.9 Heart failure, unspecified (principal)

== ENCOUNTER → 2018-02-14 | Outpatient (CLI) | payer OTHER ==
[2018-02-14 09:40] LABS: BLOOD UREA NITROGEN 28 mg/dl (7-18); CALCIUM 8.4 mg/dl (8.5-10.1); CARBON DIOXIDE 34 mmol/L (21-32); GLUCOSE 97 mg/dl (70-99); POTASSIUM 3.8 mmol/L (3.5-5.1); SODIUM 142 mmol/L (136-145)
== END | disposition home or self-care (01) ==
LOC: C.LABVPSUA 09:00
PROVIDERS: ATTEND Internal Medicine Critical Care Medicine
DX: N18.9 Chronic kidney disease, unspecified (principal)

== ENCOUNTER → 2018-02-28 | Outpatient (CLI) | payer OTHER ==
[2018-02-28 10:22] LABS: BLOOD UREA NITROGEN 24 mg/dl (7-18); CALCIUM 8.3 mg/dl (8.5-10.1); CARBON DIOXIDE 27 mmol/L (21-32); CREATININE 1.81 mg/dl (0.60-1.40); GLUCOSE 111 mg/dl (70-99); SODIUM 141 mmol/L (136-145)
== END ==
LOC: C.LABVPSUA 09:51
PROVIDERS: ATTEND Internal Medicine Critical Care Medicine
DX: I50.9 Heart failure, unspecified (principal)